=== PATIENT | female | born 1955 | race Caucasian/White ===

== ENCOUNTER 2016-09-09 14:30 | Inpatient (IN) | payer BC, OTHER ==
[~2016-09-09] VITALS: Ht 165.1 cm; Wt 84.1 kg
[~2016-09-09 14:30] MED LIST: ALBU8.5H3 INH; AMLO-145 PO; ASPI81TA3 PO; ATOR40TA68 PO; BENZ100C70 PO; BUDE6.9H IH; BUDE6HFA INHALATION; CARI350T29 PO; CARSR60 PO; CNC30T PO; FURO80TA3 PO; INSU100V18 SC; LEVEM SC; LOSA50TA6 PO; METO50TA16 PO; METO5TAB58 PO; MONT10TA21 PO; OMEP40CA3 PO; OXYC-281 PO; TEMA15CA PO; TEMA15CA6 PO; WARF1TAB47 PO
[2016-09-09] MEDS ORDERED: ALBUTEROL 0.5% (NEB) 2.5 MG/0.5 ML AMP INH STA (15:33)
[2016-09-09] MEDS ORDERED: SOD CHLORIDE 0.9% 250 ML IV STA (15:33)
[2016-09-09] MEDS ORDERED: METHYLPREDNISOLONE 125 MG INJ IV STA (15:33)
[2016-09-09 16:03] LABS: ADD SCAN DIFF NO
[2016-09-09 16:08] LABS: BASOPHIL # 0.1 10^3/ul (0.0-0.1); BASOPHILS % 0.5 % (0.0-2.0); EOSINOPHILS # 0.2 10^3/ul (0.0-0.5); HEMATOCRIT 22.7 % (37.0-47.0); HEMOGLOBIN 7.1 g/dl (12.0-16.0); LYMPHOCYTES # 1.9 10^3/ul (0.8-2.9); LYMPHOCYTES % 11.9 % (15.0-51.0); MEAN CORPUSCULAR HEMOGLOBIN 33.5 pg (29.0-33.0); MEAN CORPUSCULAR HGB CONC 31.3 g/dl (32.0-37.0); MEAN CORPUSCULAR VOLUME 107.1 fl (82.0-101.0); MEAN PLATELET VOLUME 9.8 fl (7.4-10.4); MONOCYTE # 1.5 10^3/ul (0.3-0.9); MONOCYTES % 9.1 % (0.0-11.0); NEUTROPHIL # 11.9 10^3/ul (1.6-7.5); NEUTROPHILS % 73.3 % (39.0-77.0); NUCLEATED RED BLOOD CELLS # 0.3 10^3/ul (0.0-0.0); NUCLEATED RED BLOOD CELLS% 1.7 /100WBC (0.0-0.0); PLATELET COUNT 606 10^3/UL (140-415); RED BLOOD COUNT 2.12 10^6/ul (4.20-5.40); RED CELL DISTRIBUTION WIDTH 18.8 % (11.5-14.5); WHITE BLOOD COUNT 16.2 10^3/ul (4.8-10.8)
[2016-09-09 16:19] LABS: ALBUMIN 3.1 g/dl (3.3-4.9); CHLORIDE 99 mmol/L (97-110); INR 1.75; POTASSIUM 5.8 mmol/L (3.5-5.1); PROTIME 20.6 Sec (12.2-14.2); PT RATIO 1.6; SODIUM 137 mmol/L (135-144)
[2016-09-09 16:21] LABS: ADD UMIC YES; URINE BILIRUBIN (Dip) 1+ (NEGATIVE); URINE BLOOD (Dip) 3+ (NEGATIVE); URINE COLOR LT. YELLOW (YELLOW); URINE GLUCOSE (Dip) NEGATIVE (NEGATIVE); URINE KETONES (Dip) NEGATIVE (NEGATIVE); URINE LEUKOCYTE ESTERASE (Dip) 2+ (NEGATIVE); URINE NITRITE (Dip) NEGATIVE (NEGATIVE); URINE TOTAL PROTEIN (Dip) 2+ (NEGATIVE); URINE UROBILINOGEN (Dip) 0.2 E.U./dL (0.1-1.0)
[2016-09-09 16:21] LABS: CREATININE 6.34 mg/dl (0.44-1.00)
[2016-09-09 16:22] LABS: ALANINE AMINOTRANSFERASE 41 IU/L (13-69); ALKALINE PHOSPHATASE 102 IU/L (42-121); ASPARTATE AMINO TRANSFERASE 16 IU/L (15-46); BLOOD UREA NITROGEN 48 mg/dl (7-20); CALCIUM 8.9 mg/dl (8.4-10.2); CARBON DIOXIDE 21 mmol/L (21-31); GLUCOSE 249 mg/dl (70-220); TOTAL PROTEIN 6.2 g/dl (6.1-8.1)
[2016-09-09 16:23] LABS: ANION GAP 23 (8-16)
[2016-09-09] MEDS ORDERED: OXYC-209 PO (16:30)
--- NOTE | 2016-09-09 16:32 | RADRPT ---
PROCEDURE: CHEST 1VW CLINICAL INDICATION: Shortness of breath TECHNIQUE: Single frontal view of the chest was obtained COMPARISON: 12/19/2015 FINDINGS: Interval removal of dialysis catheter. The cardiac size is moderately enlarged, stable. Aortic vascular calcifications are demonstrated. There is stable mild pulmonary vascular congestion. Small left pleural effusion, decreased in size when compared the prior study, with associated atelec tasis. Bibasilar atelectasis is also seen. Mild degenerative changes of the visualized osseous structures are visualized. IMPRESSION: 1. Stable cardiomegaly with stable mild pulmonary vascular congestion. Interval decrease but persis tent small left pleural effusion with associated atelectasis. 2. Atherosclerosis. 3. Removal of dialysis catheter. RPTAT:PP .Isacc Bazzi MD, Date Time Electronically viewed and signed by .Isacc Bazzi MD, on 09/09/2016 16:31 .V/
[2016-09-09] MEDS ORDERED: CARI350T29 PO (16:33)
[2016-09-09] MEDS ORDERED: ZOLP5TAB7 PO (16:33)
[2016-09-09 16:34] LABS: BACTERIA,URINE MODERATE; ICTOTEST NEGATIVE (NEGATIVE); SQUAMOUS EPITHELIAL CELL,UR MODERATE; URINE RBCS 25-50 /HPF ([, 0])
[2016-09-09] MEDS ORDERED: PYRI50TA14 PO (16:34)
[2016-09-09 16:35] LABS: TROPONIN-I < 0.012 ng/ml (0.00-0.12)
[2016-09-09] MEDS ORDERED: CALC667T2 PO (16:36)
[2016-09-09] MEDS ORDERED: APIX5TAB PO (16:38)
[2016-09-09] MEDS ORDERED: SULF1TAB30 PO (16:40)
[2016-09-09] MEDS ORDERED: MONT10TA24 PO (16:50)
[2016-09-09] MEDS ORDERED: INSU100I27 SQ (16:52)
[2016-09-09] MEDS ORDERED: TIOT18CA INHALATION (16:52)
[2016-09-09] MEDS ORDERED: CEFEPIME 1GM/50 ML (PMX) 50 ML IVPB ONE (17:00)
--- NOTE | 2016-09-09 17:19 | ERA ---
ER Documentation Chief Complaint Date/Time DATE: 09/09/16 TIME: 17:17 Chief Complaint WEAKNESS, DIZZINESS, LIGHTHEADEDNESS X1WEEK DIALYSIS MISSED TODAY HPI 61-year-old woman here for evaluation of dizziness and generalized weakness for the last few days. She states she has a history of COPD as well and feels short of breath. She has a history of end-stage kidney disease and was due for hemodialysis today but could not go because she felt too dizzy, she was also anemic a couple of weeks ago and required PRBC transfusion. She has a history of hemorrhoids but denies obvious blood per rectum or melena, she denies chest pain, no fevers or chills, no vomiting or diarrhea. ROS All systems reviewed and are negative except as per history of present illness. Medications Home Meds Reported Medications Tiotropium [place]* (Spiriva*) 18 Mcg Cap.w.dev, 1 CAP INHALATION DAILY, #30 CAP 09/09/16 Insulin Detemir (Levemir Flextouch) 100 Unit/1 Ml Insuln.pen, 90 UNIT SQ 09/09/16 Montelukast Sodium* (Montelukast Sodium*) 10 Mg Tablet, 10 MG PO QAM, #30 TAB 09/09/16 Sulfamethoxazole/Trimethoprim (Bactrim 400-80 mg Tablet) 1 Each Tablet, 2 EACH PO, TAB 09/09/16 Apixaban* (Eliquis*) 5 Mg Tablet, 5 MG PO BID, TAB 09/09/16 Calcium Acetate* (Phoslo*) 667 Mg Tablet, 667 MG PO WITH MEALS, TAB TAKE 4 TAB 09/09/16 Pyridoxine Hcl* (Pyridoxine Hcl*) 50 Mg Tablet, 50 MG PO DAILY, TAB 09/09/16 Zolpidem Tartrate* (Zolpidem Tartrate*) 5 Mg Tablet, 5 MG PO QHS Y for INSOMNIA , #30 TAB 09/09/16 Oxycodone HCl/Acetaminophen (Percocet 10-325 mg Tablet) 1 Each Tablet, 1 EACH PO Q6 Y for PRN, TAB 09/09/16 Budesonide-Formoterol Fumarate* (Symbicort*) 160-4.5 Hfa.aer.ad, 2 PUFF INHALATION BID, #1 EACH 12/19/15 Furosemide* (Furosemide*) 80 Mg Tablet, 80 MG PO DAILY, #30 TAB 12/19/15 Benzonatate* (Tessalon Perle*) 100 Mg Capsule, 100 MG PO Q6, CAP 12/19/15 Atorvastatin* (Atorvastatin*) 40 Mg Tablet, 40 MG PO QHS, #30 TAB 12/19/15 Amlodipine Besylate* (Amlodipine Besylate*) 5 Mg Tablet, 5 MG PO DAILY, #30 TAB 12/19/15 Losartan Potassium* (Losartan Potassium*) 50 Mg Tablet, 50 MG PO BID, TAB 12/19/15 Cinacalcet* (Sensipar*) 30 Mg Tab, 30 MG PO, TAB 12/19/15 Diltiazem Hcl* (Cardizem SR*) 60 Mg Capsr, 60 MG PO Q12, #60 CAP 12/19/15 Metoprolol Succinate* (Toprol XL*) 50 Mg Tab.er.24h, 50 MG PO DAILY, #30 TAB 12/19/15 Metoclopramide* (Reglan*) 5 Mg Tablet, 5 MG PO AC MEALS, TAB 12/19/15 Aspirin* (Aspirin* Chew) 81 Mg Tab.chew, 81 MG PO DAILY, TAB.CHEW 12/19/15 Albuterol Sulfate* (Proair HFA*) 8.5 Gm Hfa.aer.ad, 2 PUFF INH Q4H Y for WHEEZING AND SOB, INH 06/12/14 Atorvastatin* (Atorvastatin*) 40 Mg Tablet, 40 MG PO HS, TAB 06/12/14 Omeprazole* (Prilosec*) 40 Mg Capsule.dr, 40 MG PO DAILY 08/31/12 Discontinued Reported Medications Carisoprodol* (Carisoprodol*) 350 Mg Tablet, 350 MG PO Q8 Y for MUSCLE SPASMS, TAB 09/09/16 Insulin Detemir* (Levemir*) 100 U/Ml Vial, 86 UNIT SC HS, VIAL 12/19/15 Warfarin Sodium* (Coumadin*) 1 Mg Tablet, 1 MG PO DAILY, TAB 12/19/15 Temazepam* (Restoril*) 15 Mg Capsule, 15 MG PO HS MAY REPEAT X 1 Y for INSOMNIA , CAP 12/19/15 Montelukast Sodium* (Singulair*) 10 Mg Tablet, 10 MG PO QHS, #30 TAB 12/19/15 Carisoprodol* (Carisoprodol*) 350 Mg Tablet, 350 MG PO Q8 Y for MUSCLE SPASMS, TAB 12/19/15 Montelukast Sodium* (Singulair*) 10 Mg Tablet, 10 MG PO HS, TAB 06/12/14 Oxycodone Hcl-Acetaminophen* (Percocet*) 1 Tab Tablet, PO PRN 08/31/12 Budesonide-Formoterol Fumarate* (Symbicort*) 6.9 Gm Hfa.aer.ad, 6.9 GM IH DAILY , INH 2 PUFFS 04/09/11 Insulin Lispro (Humalog) 100 U/Ml Vial, SC 04/08/11 Temazepam* (Temazepam*) 15 Mg Capsule, PO PRN 04/08/11 Allergies Allergies: Coded Allergies: Penicillins (Verified Allergy, Severe, ALL OVER BODY RASH, 09/09/16) Sulfa (Sulfonamide Antibiotics) (Unverified Allergy, Severe, RASH, 09/09/16 ) ciprofloxacin (Verified Allergy, Severe, TENDONITIS, 09/09/16) PMhx/Soc Obesity, chronic obstructive pulmonary disease, hypertension, diabetes mellitus , end-stage kidney disease hemodialyzed on Tuesday, , Saturdays, previous [place], atrial fibrillation History of Surgery: Yes (RIJ PERMACATH, C SECTION,BTL) Anesthesia Reaction: No Hx Neurological Disorder: No Hx Respiratory Disorders: Yes (COPD) Hx Cardiac Disorders: Yes (HTN) Hx Psychiatric Problems: Yes Hx Miscellaneous Medical Probl: No Hx Alcohol Use: No Hx Substance Use: No Hx Tobacco Use: No Smoking Status: Current every day smoker FmHx Family History: diabetes Physical Exam Vitals Vital Signs Date Time Temp Pulse Resp B/P Pulse Ox O2 Delivery O2 Flow Rate FiO2 09/09/16 18:30 97.6 97 20 77/64 95 Nasal Cannula 3.0 09/09/16 17:21 97.6 99 20 90/57 98 Nasal Cannula 2.0 09/09/16 16:14 100 20 96 Nasal Cannula 2.0 09/09/16 15:25 Nasal Cannula 2.0 09/09/16 14:42 97.6 103 18 89/54 91 Physical Exam GENERAL: Well-developed, elderly, dehydrated woman, dyspneic HEENT: Dry mucous membranes, pale conjunctiva no cervical spine tenderness or step-off deformities, no goiter, no jaundice or icterus, extraocular movements intact without pain. No submandibular induration, and no pharyngeal erythema NEURO: Alert and oriented 3, cranial nerves II through XII intact bilaterally, pupils equal round reactive to light, no focal deficits or facial asymmetry, sensation intact distally Strength 5/5 in upper and lower extremities bilaterally CARDIAC: Regular rate and rhythm, no murmurs rubs or gallops LUNGS: Diffuse wheezing, no crackles or stridor ABDOMEN: Soft nontender, no guarding, no rigidity, no rebound, no psoas sign no obturator sign. Normoactive bowel sounds SKIN: Warm and dry to touch, no abrasions, contusions, or hematomas, no lacerations, no ecchymosis, no target lesions, and without ulcers EXTREMITIES: No clubbing cyanosis or edema, calves are bilaterally symmetrical, no Homans sign, no popliteal cord sign. Distal pulses equal and bilateral PSYCH: Normal affect without agitation or irritability Result Diagram: 09/09/16 1555 09/09/16 1555 Results 24 hrs Laboratory Tests Test 09/09/16 15:55 09/09/16 16:00 White Blood Count 16.210^3/ul Red Blood Count 2.1210^6/ul Hemoglobin 7.1g/dl Hematocrit 22.7% Mean Corpuscular Volume 107.1fl Mean Corpuscular Hemoglobin 33.5pg Mean Corpuscular Hemoglobin Concent 31.3g/dl Red Cell Distribution Width 18.8% Platelet Count 16636^3/UL Mean Platelet Volume 9.8fl Neutrophils % 73.3% Lymphocytes % 11.9% Monocytes % 9.1% Eosinophils % 1.0% Basophils % 0.5% Nucleated Red Blood Cells % 1.7/100WBC Neutrophils # 11.910^3/ul Lymphocytes # 1.910^3/ul Monocytes # 1.510^3/ul Eosinophils # 0.210^3/ul Basophils # 0.110^3/ul Nucleated Red Blood Cells # 0.310^3/ul Prothrombin Time 20.6Sec Prothrombin Time Ratio 1.6 INR International Normalized Ratio 1.75 Sodium Level 137mmol/L Potassium Level 5.8mmol/L Chloride Level 99mmol/L Carbon Dioxide Level 21mmol/L Anion Gap 23 Blood Urea Nitrogen 48mg/dl Creatinine 6.34mg/dl Glucose Level 249mg/dl Calcium Level 8.9mg/dl Total Bilirubin 0.0mg/dl Direct Bilirubin 0.00mg/dl Indirect Bilirubin 0.0mg/dl Aspartate Amino Transf (AST/SGOT) 16IU/L Alanine Aminotransferase (ALT/SGPT) 41IU/L Alkaline Phosphatase 102IU/L Troponin I < 0.012ng/ml Total Protein 6.2g/dl Albumin 3.1g/dl Globulin 3.10g/dl Albumin/Globulin Ratio 1.00 Lipase 36U/L Urine Color LT. YELLOW Urine Clarity CLOUDY Urine pH 5.5 Urine Specific [place] 1.025 Urine Ketones NEGATIVE Urine Nitrite NEGATIVE Urine Bilirubin 1+ Urine Ictotest NEGATIVE Urine Urobilinogen 0.2 E.U./dL Urine Leukocyte Esterase 2+ Urine Microscopic RBC 25-50/HPF Urine Microscopic WBC >200/HPF Urine Squamous Epithelial Cells MODERATE Urine Bacteria MODERATE Urine Hemoglobin 3+ Urine Glucose NEGATIVE% Urine Total Protein 2+ Current Medications Medications (Trade) Dose Ordered Sig/Danielle Route PRN Reason Start Time Stop Time Status Last Admin Dose Admin Sodium Chloride (NS) 250 ml @ 250 mls/hr Q1H STAT IV 09/09/16 15:33 09/09/16 16:32 DC 09/09/16 16:19 Albuterol (Proventil 0.5% (Neb)) 10 mg ONCE STAT INH 09/09/16 15:33 09/09/16 15:35 DC 09/09/16 16:13 Methylprednisolone Sodium Succinate 125 mg 125 mg ONCE STAT IV 09/09/16 15:33 09/09/16 15:35 DC 09/09/16 16:19 Cefepime HCl 50 ml @ 100 mls/hr ONCE ONCE IVPB 09/09/16 17:00 09/09/16 17:29 DC 09/09/16 16:59 Calcium Gluconate/ Sodium Chloride (Ca Gluc/NS) 110 ml @ 110 mls/hr ONCE ONCE IVPB 09/09/16 17:30 09/09/16 18:29 DC 09/09/16 17:49 IV Flush (NS 3 ml) 3 ml PER PROTOCOL IV 09/09/16 19:30 Ondansetron HCl (Zofran Inj) 4 mg Q6H PRN IV NAUSEA AND/OR VOMITING 09/09/16 19:30 Acetaminophen (Tylenol Tab) 650 mg Q6H PRN PO PAIN LEVEL 1-3 OR FEVER 09/09/16 19:30 Acetaminophen/ Hydrocodone Bitart ([place] (5/325)) 1 tab Q6H PRN PO MODERATE PAIN LEVEL 4-6 09/09/16 19:30 Morphine Sulfate (morphine) 2 mg Q4H PRN IV SEVERE PAIN LEVEL 7-10 09/09/16 19:30 Docusate Sodium (Colace) 100 mg Q12H PRN PO CONSTIPATION 09/09/16 19:30 Zolpidem Tartrate (Ambien) 5 mg QHS PRN PO SLEEP 09/09/16 19:30 Vancomycin HCl VANCOMYCIN PER PHARMACY PER PROTOCOL XX 09/09/16 19:30 Ceftriaxone Sodium (Rocephin) 50 ml @ 100 mls/hr Q24H IVPB 09/09/16 21:30 Albuterol (Ventolin Hfa) 2 puff Q4H PRN INH WHEEZING AND SOB 09/09/16 19:30 Amlodipine Besylate (Norvasc) 5 mg DAILY PO 09/10/16 09:00 Apixaban (Eliquis) 5 mg BID PO 09/09/16 21:00 UNV Aspirin (Aspirin) 81 mg DAILY PO 09/10/16 09:00 Atorvastatin Calcium (Lipitor) 40 mg HS PO 09/09/16 21:00 09/09/16 21:00 DC Atorvastatin Calcium (Lipitor) 40 mg QHS PO 09/09/16 21:00 Benzonatate (Tessalon) 100 mg Q6 PO 09/10/16 00:00 Calcium Acetate (Phoslo) 667 mg WITH MEALS PO 09/10/16 08:00 Cinacalcet (Sensipar) 30 mg DAILY PO 09/10/16 09:00 Diltiazem HCl (Cardizem Sr) 60 mg Q12 PO 09/09/16 21:00 Furosemide (Lasix) 80 mg DAILY PO 09/10/16 09:00 Insulin Detemir (Levemir) 90 unit QHS SC 09/09/16 21:00 UNV Losartan Potassium (Cozaar) 50 mg BID PO 09/09/16 21:00 Metoclopramide HCl (Reglan) 5 mg AC MEALS PO 09/10/16 07:00 Metoprolol Succinate (Toprol Xl) 50 mg DAILY PO 09/10/16 09:00 Montelukast Sodium (Singulair) 10 mg QAM PO 09/10/16 09:00 Pyridoxine HCl (Vitamin B6) 50 mg DAILY PO 09/10/16 09:00 Tiotropium [place] (Spiriva) 1 inh DAILY INH 09/10/16 09:00 Salmeterol Xinafoate/ Fluticasone (Advair 250/50 Diskus) 1 inh BID INH 09/09/16 21:00 Pantoprazole (Protonix Tab) 40 mg DAILY@06 PO 09/10/16 06:00 Insulin Aspart (Novolog Insulin Pen) NOVOLOG *MILD* ALGORITHM WITH MEALS BEDTIME SC 09/09/16 21:00 Miscellaneous Information (* Miscellaneous Pharmacy Order) HYPOGLYCEMIA PROTOCOL w... ONCE ONCE XX 09/09/16 19:30 09/09/16 20:13 DC Miscellaneous Information (* Miscellaneous Pharmacy Order) Discontinue Glyburide, Glipizide,... ONCE ONCE XX 09/09/16 19:30 09/09/16 20:13 DC Miscellaneous Information (* Miscellaneous Pharmacy Order) Discontinue all previ... ONCE ONCE XX 09/09/16 19:30 09/09/16 20:14 DC Miscellaneous Information 1 ea NOTE XX 09/09/16 20:30 Glucose (Glutose) 15 gm Q15M PRN PO DECREASED GLUCOSE 09/09/16 20:30 Glucose (Glutose) 22.5 gm Q15M PRN PO DECREASED GLUCOSE 09/09/16 20:31 Dextrose (D50w Syringe) 25 ml Q15M PRN IV DECREASED GLUCOSE 09/09/16 20:30 Dextrose (D50w Syringe) 50 ml Q15M PRN IV DECREASED GLUCOSE 09/09/16 20:30 Glucagon (Glucagen) 1 mg Q15M PRN IM DECREASED GLUCOSE 09/09/16 20:30 Glucose (Glutose) 15 gm Q15M PRN BUCCAL DECREASED GLUCOSE 09/09/16 20:30 Procedures/MDM IV line was established patient was placed on monitoring specialist rhythm strip revealed a sinus tachycardia at 100 bpm with upright P and T waves. Patient was afebrile. EKG performed, read by me revealed a atrial fibrillation rate controlled at 96 bpm, normal axis, with a right ventricular conduction delay and a QRS duration of 106 ms, no concerning ST elevations or depressions noted One view chest x-ray performed, read by me there are atelectatic changes bilaterally, no acute infiltrates, no pneumothorax, no end of the diaphragm. For initial hypotension I administered 250 cc of normal saline intravenously, and she received albuterol 10 mg via nebulizer methylprednisolone 125 mg IV for COPD. CBC revealed a leukocytosis of 16 and severe anemia with a hemoglobin of 7.1, which is lower than her baseline. Electrolytes reveal hyperkalemia 5.8 and renal failure with a BUN/creatinine of 48/6.3, liver function tests were normal , troponin was negative. Urinalysis was positive for infection. I treated her here with cefepime 1 g IV for UTI. I also ordered PRBC IV transfusion 2 units over 4 hours for severe symptomatic anemia. Patient also received calcium gluconate 1 g IV for hyperkalemia. Critical Care: Time: 38 minutes, this was time separate from other procedures. Treatments/Evaluations: Close monitoring and treatment of unstable vital signs, cardiorespiratory, and neurologic status, while maintaining tight balance of fluid, respiratory, and cardiac interventions. Patient admitted to telemetry setting for continued medical management, bronchodilator therapy, and IV antibiotics. Departure Diagnosis: Primary Impression: Acute hyperkalemia Additional Impressions: End stage kidney disease Dehydration Severe anemia UTI (urinary tract infection) Qualified Code: N30.00 - Acute cystitis without hematuria COPD (chronic obstructive pulmonary disease) Qualified Code: J44.1 - Chronic obstructive pulmonary disease with acute exacerbation Condition: CHIP Masters MD Sep 09, 2016 17:19
[2016-09-09] MEDS ORDERED: CALCIUM GLUCONATE 10% 1 GM in SOD CHLORIDE 0.9% 100 ML IVPB ONE (17:30)
[2016-09-09] MEDS ORDERED: Discontinue Glyburide, Glipizide, and/or Glimepiride prior to starting Insulin XX ONE (19:30)
[2016-09-09] MEDS ORDERED: ONDANSETRON 4 MG INJ IV PRN (19:30)
[2016-09-09] MEDS ORDERED: DOCUSATE SODIUM 100 MG CAP PO PRN (19:30)
[2016-09-09] MEDS ORDERED: ACETAMINOPHEN 325 MG TAB PO PRN (19:30)
[2016-09-09] MEDS ORDERED: ALBUTEROL HFA 8 GM INHALER INH PRN (19:30)
[2016-09-09] MEDS ORDERED: NACL 0.9% 3 ML SYG IV SCH (19:30)
[2016-09-09] MEDS ORDERED: HYPOGLYCEMIA PROTOCOL when Glucose is <70 mg/dL or symptomatic <90 mg/dL. XX ONE (19:30)
[2016-09-09] MEDS ORDERED: VANCOMYCIN IV PER PHARMACY XX SCH (19:30)
--- NOTE | 2016-09-09 20:16 | HP ---
DATE OF ADMISSION: 09/09/2016 CHIEF COMPLAINT: Pain in the left leg, weakness, dizziness. HISTORY OF PRESENT ILLNESS: The patient is a 61-year-old female with a history of end-stage renal d isease on dialysis. She has a history of dyslipidemia, diabetes, COPD, as well as a wound in the le ft leg. It has been there for approximately 1 month. The patient gets dialyzed Tuesdays, , Saturdays. She does have a history of previous MT and AFib. The patient presents with a chief co mplaint of left leg pain. She states that the pain is in the back of her calf. She also states moris t she has a chronic ulcer in her left thigh. She also reports feeling somewhat weak and dizzy. She has no other complaints at this time. PAST MEDICAL HISTORY: As per HPI. PAST SURGICAL HISTORY: Perm-A-Cath placement, . HOME MEDICATIONS: See medication reconciliation. ALLERGIES 1. PENICILLIN. 2. SULFA. 3. CIPRO. FAMILY HISTORY: Diabetes. SOCIAL HISTORY: Denies any alcohol, tobacco, or drug abuse. REVIEW OF SYSTEMS: A 12-point review of systems negative except for that as mentioned in the HPI. PHYSICAL EXAMINATION: VITAL SIGNS: Temperature is 97.6, pulse 99, respiration is 20, blood pressure is 90/57, saturation 98% on 2 liters. GENERAL: No acute distress, oriented. HEENT: Normocephalic, atraumatic. LUNGS: Clear to auscultation. CARDIOVASCULAR: Regular rate and rhythm. ABDOMEN: Nondistended, nontender, soft. EXTREMITIES: Edema noted in the left posterior leg. Chronic wound noted in the left thigh. Ulcera tion noted in the left leg as well. LABORATORIES: White count 86.2, hemoglobin 7.1, platelets are 606. Chemistry: Sodium is 137, pota ssium is 5.8, creatinine is 6.3, hemoglobin , BUN is 48. INR is 1.75. Urine shows greater moris n 200 WBCs, leukocyte esterase 2+, total protein is 2+. DIAGNOSTICS: Chest x-ray shows stable cardiomegaly with mild pulmonary vascular congestion. ASSESSMENT AND PLAN: 1. Sepsis secondary to urinary tract infection and/or cellulitis. The patient does have erythema a round the ulcer in her left leg and she also has a urinary tract infection. Will treat her with van comycin and cover the cellulitis and Rocephin for urinary tract infection. 2. Left thigh wound. This is a chronic wound for the past month. The patient has been trying to g et an appointment with vascular surgeon but has been unable to do so. Will consult during this hospitalization. 3. History of atrial fibrillation. Continue home Coumadin. 4. End-stage renal disease. We will consult nephrology for dialysis. 5. Anemia, likely of chronic disease and end-stage renal disease. The patient has no reports of an y bleeding at this time. 6. Hypertension. Continue home medications. 7. Diabetes. Continue home insulin regimen. 8. Dyslipidemia. Continue statin. 9. Prophylaxis. The patient on Eliquis. Dictated By: MICHAEL COULTER MD BS/BLANCA Conf#: [id number] DID#: [id number]
[2016-09-09] MEDS ORDERED: GLUCOSE GEL 15 GRAM TUBE BUCCAL PRN (20:30)
[2016-09-09] MEDS ORDERED: DEXTROSE 50% 50 ML SYRINGE IV PRN ×2 (20:30)
[2016-09-09] MEDS ORDERED: GLUCAGON 1 MG INJ IM PRN (20:30)
[2016-09-09] MEDS ORDERED: GLUCOSE GEL 15 GRAM TUBE PO PRN ×2 (20:30→20:31)
[2016-09-09] MEDS: LOSARTAN 50 MG TAB PO SCH (21:00)
[2016-09-09] MEDS: DILTIAZEM (SR) 60 MG CAP PO SCH (21:00)
[2016-09-09] MEDS ORDERED: ATORVASTATIN 40 MG TAB PO SCH (21:00)
[2016-09-09] MEDS: APIXABAN 5 MG TABLET PO SCH (21:18)
[2016-09-09] MEDS: ATORVASTATIN 40 MG TAB PO SCH (21:18)
[2016-09-09] MEDS: SALMETEROL/FLUTICASONE 250/50 INHA INH SCH (21:19)
[2016-09-09] MEDS: INSULIN ASPART [NOVOLOG] 3 ML PEN SC SCH (21:29)
[2016-09-09] MEDS: INSULIN DETEMIR [LEVEMIR] 3ML CART SC SCH (21:30)
[2016-09-09] MEDS ORDERED: VANCOMYCIN 1.75 GM in SOD CHLORIDE 0.9% 500 ML IVPB ONE (22:00)
--- NOTE | 2016-09-09 22:15 | RADRPT ---
PROCEDURE: US Lower extremity Arteries. CLINICAL INDICATION: Diabetic lower extremity ulcer TECHNIQUE: Multiple longitudinal and transverse images of the bilateral lower extremity arteries w ere obtained with munguia scale and color Doppler imaging. COMPARISON: No prior studies are available for comparison. FINDINGS: Peak systolic velocities are as follows: Location RightLeft waveforms [id number] cm/sec85 cm/sec triphasic/triphasic PSFA79 cm/sec88 cm/sec triphasic/triphasic MSFA75 cm/sec60 cm/sec triphasic/triphasic DSFA52 cm/sec64 cm/sec triphasic/triphasic POP55 cm/sec69 cm/sec triphasic/ biphasic PTA51 cm/sec39 cm/sec monophasic/monophasic DPA52 cm/sec57 cm/sec monophasic/monophasic Calcified shadowing atheromatous disease is extensive, ankle brachial indices are therefore unable t o be acquired RPTAT:HJJR IMPRESSION: 1. Diffuse calcified atheromatous plaque formation of the bilateral lower extremities without eviden ce for hemodynamically significant stenosis or occlusion. 2. Monophasic waveforms of the posterior tibial and dorsalis pedis arteries bilaterally. Physician Ivette Date Time Electronically viewed and signed by Physician Ivette on 09/09/2016 22:14 JR/
[2016-09-09] MEDS: CEFTRIAXONE 1 GM/50 ML (PMX) 50 ML IVPB SCH (22:38)
[2016-09-09] MEDS: BENZONATATE 100 MG CAP PO SCH (23:23)
[2016-09-09] MEDS: ZOLPIDEM 5 MG TAB PO PRN (23:36)
[2016-09-10] VITALS (10 sets, daily range): BP systolic 108–120; BP diastolic 58–71; PULSE 98–107; RESP 18–22; TEMP 97.6
[2016-09-10 06:35] LABS: ADD SCAN DIFF NO
[2016-09-10 06:39] LABS: ABNORMAL IP MESSAGE 1; BASOPHIL # 0.1 10^3/ul (0.0-0.1); BASOPHILS % 0.4 % (0.0-2.0); HEMATOCRIT 30.1 % (37.0-47.0); HEMOGLOBIN 9.3 g/dl (12.0-16.0); LYMPHOCYTES # 1.5 10^3/ul (0.8-2.9); LYMPHOCYTES % 10.9 % (15.0-51.0); MEAN CORPUSCULAR HEMOGLOBIN 31.3 pg (29.0-33.0); MEAN CORPUSCULAR HGB CONC 30.9 g/dl (32.0-37.0); MEAN CORPUSCULAR VOLUME 101.3 fl (82.0-101.0); MEAN PLATELET VOLUME 9.8 fl (7.4-10.4); MONOCYTE # 0.6 10^3/ul (0.3-0.9); MONOCYTES % 4.1 % (0.0-11.0); NEUTROPHIL # 11.2 10^3/ul (1.6-7.5); NEUTROPHILS % 79.4 % (39.0-77.0); NUCLEATED RED BLOOD CELLS # 0.3 10^3/ul (0.0-0.0); NUCLEATED RED BLOOD CELLS% 2.4 /100WBC (0.0-0.0); PLATELET COUNT 571 10^3/UL (140-415); RED BLOOD COUNT 2.97 10^6/ul (4.20-5.40); WHITE BLOOD COUNT 14.1 10^3/ul (4.8-10.8)
[2016-09-10 06:51] LABS: POTASSIUM 5.9 mmol/L (3.5-5.1)
[2016-09-10 06:54] LABS: CREATININE 6.64 mg/dl (0.44-1.00)
[2016-09-10 06:55] LABS: CALCIUM 8.9 mg/dl (8.4-10.2); MAGNESIUM 2.8 mg/dl (1.7-2.5); PHOSPHORUS 6.9 mg/dl (2.5-4.9)
--- NOTE | 2016-09-10 08:05 | CONS ---
DATE OF ADMISSION: 09/09/2016 DATE OF CONSULTATION: 09/10/[address] Spence: Thank you very much for allowing me to evaluate this 61-year-old female admitted via the ER with ane erica and an ulcer involving her left thigh and redness and swelling involving her left tibial area. HISTORICAL EVENTS: As you well know, this patient has chronic renal failure she states related to d iabetes as well as hyperlipidemia, chronic obstructive pulmonary disease, antecedent history of an M I and atrial fibrillation, presenting with left leg pain. She has a slight nonproductive cough, no wheezing. Has had no recent nausea, vomiting, or abdominal pain. PAST MEDICAL HISTORY: Includes a . ALLERGIES: INCLUDE: 1. PENICILLIN. 2. SULFA. 3. CIPRO. MEDICATIONS: Prior to admission include: 1. Amlodipine 5 mg per day. 2. Eliquis 5 mg b.i.d. 3. Aspirin 81 mg per day. 4. Atorvastatin 40 mg per day. 5. Symbicort 160/4.5 b.i.d. 6. PhosLo t.i.d. with meals. 7. Sensipar 30 mg per day. 8. Diltiazem 60 mg per day. 9. Lasix 80 mg per day. 10. Levemir insulin 90 units per day. 11. Losartan 50 per day. 12. Reglan 5 mg a.c. t.i.d. 13. Metoprolol 50 mg per day. 14. Singulair 10 per day. 15. Omeprazole 40 mg per day. 16. Pyridoxine 50 mg per day. 17. Spiriva. PHYSICAL EXAMINATION: VITAL SIGNS: BP 102/81, pulse was 100, temperature 97.6, respirations were 18, O2 sat 97%. EYES: Extraocular muscles were full. NOSE, MOUTH, AND THROAT: Normal. NECK: No JVD. LUNGS: Lungs reduced breath sounds without rales, wheezes, or rhonchi. HEART: Rhythm regular, 1/6 systolic murmur. ABDOMEN: Distended. Liver and spleen not palpable. No tenderness. EXTREMITIES: Trace edema. There was redness and swelling involving the left tibial area. There wa s a 4x4 covering the right thigh. NEUROLOGIC: Revealed no lateralizing motor weakness. LABORATORY AND DIAGNOSTIC STUDIES: Urinalysis 25 to 50 reds, 2+ esterase, 3+ hemoglobin, 2+ protein , and moderate bacteria. Chemistries this morning, sodium 140, potassium 5.9, chloride 100, CO2 21, BUN 56, creatinine 6.64. Liver tests were normal. INR was 1.75, hematocrit was 22.7 on admission, white count 16,200. After transfusion of 2 units of packed cells, hematocrit increased to 30.1, wh ite count dropped to 14,100. IMAGING STUDIES: Included a lower extremity arterial study that revealed no hemodynamically signifi cant occlusion and a chest x-ray revealed mild pulmonary congestion. IMPRESSION: 1. Chronic renal failure on dialysis, with now need for the same with elevated potassium noted. 2. Cellulitis involving the left lower extremity, has already received vancomycin. 3. Severe anemia on admission, stool for OB will need to be obtained and follow up hematocrits. Wi ll continue to follow her with you. Dictated By: ELLEN NEVILLE/BLANCA Conf#: [id number] DID#: [id number]
[2016-09-10] MEDS: PANTOPRAZOLE (EC) 40 MG TAB PO SCH (08:16)
[2016-09-10] MEDS: BENZONATATE 100 MG CAP PO SCH ×3 (08:17→18:38)
[2016-09-10] MEDS: METOCLOPRAMIDE 5 MG TAB PO SCH ×3 (08:19→18:39)
[2016-09-10] MEDS: CALCIUM ACETATE 667 MG CAP PO SCH ×3 (08:21→18:38)
[2016-09-10] MEDS: INSULIN ASPART [NOVOLOG] 3 ML PEN SC SCH ×4 (08:31→21:50)
[2016-09-10] MEDS: SALMETEROL/FLUTICASONE 250/50 INHA INH SCH ×2 (09:19→21:58)
[2016-09-10] MEDS: ASPIRIN 81 MG TAB PO SCH (09:20)
[2016-09-10] MEDS: DILTIAZEM (SR) 60 MG CAP PO SCH ×2 (09:20→21:00)
[2016-09-10] MEDS: APIXABAN 5 MG TABLET PO SCH ×2 (09:21→21:31)
[2016-09-10] MEDS: FUROSEMIDE 40 MG TAB PO SCH (09:25)
[2016-09-10] MEDS: CINACALCET 30 MG TAB PO SCH (09:26)
[2016-09-10] MEDS: MONTELUKAST 10 MG TAB PO SCH (09:26)
[2016-09-10] MEDS: AMLODIPINE 5 MG TAB PO SCH (09:27)
[2016-09-10] MEDS: LOSARTAN 50 MG TAB PO SCH ×2 (09:27→21:00)
[2016-09-10] MEDS: PYRIDOXINE 50 MG TAB PO SCH (10:39)
[2016-09-10] MEDS: METOPROLOL (XL) 50 MG TAB PO SCH (10:39)
[2016-09-10] MEDS: TIOTROPIUM 18 MCG CAPSULE INHA DEV INH SCH (10:45)
--- NOTE | 2016-09-10 15:26 | PN ---
Date/Time of Note Date/Time of Note DATE: 09/10/16 TIME: 15:23 Assessment/Plan VTE Prophylaxis VTE Prophylaxis Intervention: other Assessment/Plan Chief Complaint/Hosp Course 1. Sepsis secondary to urinary tract infection and/or cellulitis -cont Vanco and Rocephin 2. Left thigh chronic wound -Vascular consult -Arterial study is neg for sig occlusion 3. History of atrial fibrillation - Continue home Coumadin 4. End-stage renal disease -HD per Renal 5. Anemia of chronic disease and end-stage renal disease - The patient has no reports of any bleeding at this time. 6. Hypertension -Continue home medications 7. Diabetes - Continue home insulin regimen 8. Dyslipidemia -Continue statin. 9. Prophylaxis-The patient on Eliquis Problems: Subjective 24 Hr Interval Summary Constitutional: no complaints Exam/Review of Systems Vital Signs Vitals Vital Signs Date Time Temp Pulse Resp B/P Pulse Ox O2 Delivery O2 Flow Rate FiO2 09/10/16 14:15 107 20 09/10/16 09:54 90/76 97 Nasal Cannula 3.0 09/10/16 09:03 97.6 Exam Constitutional: alert Respiratory: clear to auscultation Cardiovascular: regular rate and rhythm Gastrointestinal: soft, No distended Musculoskeletal: No nl extremities to inspection Results Result Diagram: 09/10/16 0608 09/10/16 0608 Results 24 hrs Laboratory Tests Test 09/09/16 15:55 09/09/16 16:00 09/09/16 21:11 09/10/16 06:08 White Blood Count 16.2 #H 14.1 H Red Blood Count 2.12 #L 2.97 #L Hemoglobin 7.1 #L 9.3 #L Hematocrit 22.7 #L 30.1 #L Mean Corpuscular Volume 107.1 H 101.3 H Mean Corpuscular Hemoglobin 33.5 H 31.3 Mean Corpuscular Hemoglobin Concent 31.3 L 30.9 L Red Cell Distribution Width 18.8 H 21.0 H Platelet Count 606 H 571 H Mean Platelet Volume 9.8 # 9.8 Neutrophils % 73.3 79.4 H Lymphocytes % 11.9 L 10.9 L Monocytes % 9.1 4.1 Eosinophils % 1.0 0.0 Basophils % 0.5 0.4 Nucleated Red Blood Cells % 1.7 H 2.4 H Neutrophils # 11.9 H 11.2 H Lymphocytes # 1.9 1.5 Monocytes # 1.5 H 0.6 Eosinophils # 0.2 0.0 Basophils # 0.1 0.1 Nucleated Red Blood Cells # 0.3 H 0.3 H Prothrombin Time 20.6 H Prothrombin Time Ratio 1.6 INR International Normalized Ratio 1.75 Sodium Level 137 140 Potassium Level 5.8 H 5.9 H Chloride Level 99 100 Carbon Dioxide Level 21 21 Anion Gap 23 H 25 H Blood Urea Nitrogen 48 H 56 H Creatinine 6.34 H 6.64 H Glucose Level 249 H 269 H Calcium Level 8.9 8.9 Total Bilirubin 0.0 L Direct Bilirubin 0.00 Indirect Bilirubin 0.0 Aspartate Amino Transf (AST/SGOT) 16 Alanine Aminotransferase (ALT/SGPT) 41 Alkaline Phosphatase 102 Troponin I < 0.012 Total Protein 6.2 Albumin 3.1 L Globulin 3.10 Albumin/Globulin Ratio 1.00 Lipase 36 Urine Color LT. YELLOW Urine Clarity CLOUDY Urine pH 5.5 Urine Specific [place] 1.025 Urine Ketones NEGATIVE Urine Nitrite NEGATIVE Urine Bilirubin 1+ H Urine Ictotest NEGATIVE Urine Urobilinogen 0.2 E.U./dL Urine Leukocyte Esterase 2+ H Urine Microscopic RBC 25-50 Urine Microscopic WBC >200 Urine Squamous Epithelial Cells MODERATE Urine Bacteria MODERATE Urine Hemoglobin 3+ H Urine Glucose NEGATIVE Urine Total Protein 2+ H Bedside Glucose 283 H Hemoglobin A1c 6.8 H Phosphorus Level 6.9 H Magnesium Level 2.8 H Test 09/10/16 08:27 Bedside Glucose 245 H Medications Medications Current Medications Ondansetron HCl (Zofran Inj) 4 mg Q6H PRN IV NAUSEA AND/OR VOMITING; Start at 19:30 Acetaminophen (Tylenol Tab) 650 mg Q6H PRN PO PAIN LEVEL 1-3 OR FEVER; Start at 19:30 Acetaminophen/ Hydrocodone Bitart ([place] (5/325)) 1 tab Q6H PRN PO MODERATE PAIN LEVEL 4-6; Start 09/09/16 at 19:30 Morphine Sulfate (morphine) 2 mg Q4H PRN IV SEVERE PAIN LEVEL 7-10; Start 09/09 at 19:30 Docusate Sodium (Colace) 100 mg Q12H PRN PO CONSTIPATION; Start 09/09/16 at 19: 30 Zolpidem Tartrate 5 mg 5 mg QHS PRN PO SLEEP Last administered on 09/09/16 23: 36; Admin Dose 5 MG; Start 09/09/16 at 19:30 Ceftriaxone Sodium (Rocephin) 50 ml @ 100 mls/hr Q24H IVPB Last administered on 09/09/16 22:38; Admin Dose 100 MLS/HR; Start 09/09/16 at 21:30 Albuterol (Ventolin Hfa) 2 puff Q4H PRN INH WHEEZING AND SOB; Start 09/09/16 at 19:30 Amlodipine Besylate (Norvasc) 5 mg DAILY PO Last administered on 09/10/16 09: 27; Admin Dose 5 MG; Start 09/10/16 at 09:00 Apixaban (Eliquis) 5 mg BID PO Last administered on 09/10/16 09:21; Admin Dose 5 MG; Start 09/09/16 at 21:00 Aspirin (Aspirin) 81 mg DAILY PO Last administered on 09/10/16 09:20; Admin Dose 81 MG; Start 09/10/16 at 09:00 Atorvastatin Calcium (Lipitor) 40 mg QHS PO Last administered on 09/09/16 21: 18; Admin Dose 40 MG; Start 09/09/16 at 21:00 Benzonatate (Tessalon) 100 mg Q6 PO Last administered on 09/10/16 08:17; Admin Dose 100 MG; Start 09/10/16 at 00:00 Cinacalcet (Sensipar) 30 mg DAILY PO Last administered on 09/10/16 09:26; Admin Dose 30 MG; Start 09/10/16 at 09:00 Diltiazem HCl (Cardizem Sr) 60 mg Q12 PO Last administered on 09/10/16 09:20; Admin Dose 60 MG; Start 09/09/16 at 21:00 Furosemide (Lasix) 80 mg DAILY PO Last administered on 09/10/16 09:25; Admin Dose 80 MG; Start 09/10/16 at 09:00 Insulin Detemir (Levemir) 90 unit QHS SC Last administered on 09/09/16 21:30; Admin Dose 90 UNIT; Start 09/09/16 at 21:00 Losartan Potassium (Cozaar) 50 mg BID PO Last administered on 09/10/16 09:27; Admin Dose 50 MG; Start 09/09/16 at 21:00 Metoprolol Succinate (Toprol Xl) 50 mg DAILY PO Last administered on 09/10/16 10:39; Admin Dose 50 MG; Start 09/10/16 at 09:00 Montelukast Sodium (Singulair) 10 mg QAM PO Last administered on 09/10/16 09: 26; Admin Dose 10 MG; Start 09/10/16 at 09:00 Pyridoxine HCl (Vitamin B6) 50 mg DAILY PO Last administered on 09/10/16 10:39 ; Admin Dose 50 MG; Start 09/10/16 at 09:00 Tiotropium [place] (Spiriva) 1 inh DAILY INH Last administered on 09/10/16 10: 45; Admin Dose 1 INH; Start 09/10/16 at 09:00 Salmeterol Xinafoate/ Fluticasone (Advair 250/50 Diskus) 1 inh BID INH Last administered on 09/10/16 09:19; Admin Dose 1 INH; Start 09/09/16 at 21:00 Pantoprazole (Protonix Tab) 40 mg DAILY@06 PO Last administered on 09/10/16 08 :16; Admin Dose 40 MG; Start 09/10/16 at 06:00 Miscellaneous Information 1 ea NOTE XX ; Start 09/09/16 at 20:30 Glucose (Glutose) 15 gm Q15M PRN PO DECREASED GLUCOSE; Start 09/09/16 at 20:30 Glucose (Glutose) 22.5 gm Q15M PRN PO DECREASED GLUCOSE; Start 09/09/16 at 20: 31 Dextrose (D50w Syringe) 25 ml Q15M PRN IV DECREASED GLUCOSE; Start 09/09/16 at 20:30 Dextrose (D50w Syringe) 50 ml Q15M PRN IV DECREASED GLUCOSE; Start 09/09/16 at 20:30 Glucagon (Glucagen) 1 mg Q15M PRN IM DECREASED GLUCOSE; Start 09/09/16 at 20:30 Glucose (Glutose) 15 gm Q15M PRN BUCCAL DECREASED GLUCOSE; Start 09/09/16 at 20 :30 Miscellaneous Information (*Rx Drug Level Order Reminder*) VANCOMYCIN RANDOM AT 0,500 ON... ONCE ONCE XX ; Start 09/11/16 at 05:00; Stop 09/11/16 at 05:01 MICHAEL COULTER Sep 10, 2016 15:26
[2016-09-10] MEDS ORDERED: DILTIAZEM 25 MG INJ IV ONE (16:30)
--- NOTE | 2016-09-10 17:53 | HP ---
DATE OF ADMISSION: 09/09/2016 TYPE OF CONSULTATION: VASCULAR SURGERY CONSULTATION Dear Doctors: Ms. Anthony is a 61-year-old female who is a smoker with pack and half a day who presents with a pleth ora of medical conditions and lower extremity wounds bilaterally. At the moment, the patient has sexton d a history of end-stage renal disease; per patient, has been on dialysis for about a year and half in the left upper extremity functioning fistula. Patient has been tolerating her fistula well and c urrently in her lower extremities she has pain and discomfort. She has wounds on bilateral upper th ighs on the lateral aspect and bilateral bahena area. Patient mentions that she is not as ambulatory as she would like to be and she currently denies rest pain; however, she does have some disabling c laudication. Further, patient has had a history of bilateral lower extremity swelling that she has had for over 10 years. She has on and off venous stasis ulcers that heal and recur. The most rece nt one was on her right bahena area that has healed; however, she has had a recurrence of the left thi gh and left lower leg that she has had over the past month. REVIEW OF SYSTEMS: A 12-point review performed and negative except what is mentioned in the HPI. PAST MEDICAL HISTORY: Entails end-stage renal disease, morbidly obese, smoker, hyperlipidemia, eug[place] nary artery disease, COPD, dyslipidemia, history of ID, atrial fibrillation and end-stage renal dise ase on hemodialysis. PAST SURGICAL HISTORY: Left upper extremity fistula creation, previous PermCath catheter placement , . ALLERGIES: 1. PENICILLIN. 2. SULFA. 3. CIPRO. FAMILY HISTORY: Diabetes and hypertension. SOCIAL HISTORY: Positive for smoking. Denies alcohol or illicit drug use. PHYSICAL EXAMINATION: GENERAL: Alert and oriented x3, no apparent distress. HEENT: Normocephalic, atraumatic. Poor dentition. Mucosa moist. NECK: Supple. No carotid bruit. PULMONARY: Clear to auscultation bilaterally. No crackles. CARDIOVASCULAR: S1, S2 present. No murmurs. ABDOMEN: Soft, nontender, nondistended. Bowel sounds positive. Truncal obesity, large pannus. EXTREMITIES: Right lower extremity palpable femoral pulse, nonpalpable pedal pulse. Motor, sensory intact. Cap refill 3 to 4 seconds, edema 1 to 2+. Presence of upper lateral thigh ulcer that is s uperficial and almost healed. On the lower leg, there is presence of lipodermatosclerosis, spider v eins, telangiectasias and also multiple areas of healed ulcers. Left lower extremity palpable femoral pulse, nonpalpable pedal pulse. Motor, sensory intact. Capil deanne refill 3 to 4 seconds. Edema 2+. Presence of a lateral thigh ulcer that measures 5 x 3 x 1 wi th an eschar and surrounding erythema. On the lower leg, she has lipodermatosclerosis with multiple ulcers on the medial aspect of the lower leg, lateral aspect and on the bahena that have seemed to be superficial with eschar on it as well. Tender to touch. ASSESSMENT AND PLAN: Bilateral lower extremity atherosclerosis with ulcers: It seems the patient m ay have a component of mixed disease with arterial insufficiency and venous insufficiency. Upon her noninvasive vascular studies the patient has what seems to be infrapopliteal disease with monophasi c flow in her tibials. There is concern that the patient may have diabetic tibioperoneal disease. We will plan to obtain a CT angiography of the lower extremities to better ascertain if the patient has significant stenosis that can be identified. The patient may require an actual angiography, but currently the patient does not want to have any invasive studies done; therefore, we will plan to o btain a CT angiography 1st. Bilateral lower extremity venous insufficiency with ulcers (CEAP classification 6). The patient als o has a mixed component of venous disease in light of her bilateral lower extremity atherosclerosis. We will plan to obtain eventual reflux studies as an outpatient, but at the moment, we will plan to apply Santyl medication to her ulcers and plan to apply 2 layer compression dressings with Kerlix and Antoni wrap and would recommend consulting our wound care management team. Obtain bilateral lower extremity vein mapping. Optimize vascular status (BP meds, diet, nutrition, exercise, sugar control, antiplatelets). Discussed smoking cessation with the patient, would recommend for her to have decrease the amount of cigarettes that she smokes per day, currently a pack and a half. End-stage renal disease: Through the patient has a functioning fistula; however, she has not underg one any recent surveillance of her fistula. We will plan to obtain a fistula ultrasound to better a scertain if there is any flow volume differences or any stenosis. Discussed findings, plan and management with the patient and she understands. Thank you for allowing us to partake in the care of your patient. Please call with any questions. Dictated By: MAYLIN BHAT/BLANCA Conf#: [id number] DID#: [id number]
[2016-09-10] MEDS: HYDROCODONE/APAP (5/325) TAB PO PRN (18:39)
[2016-09-10] MEDS: COLLAGENASE 30 GM TUBE TOP SCH (21:00)
[2016-09-10] MEDS: ATORVASTATIN 40 MG TAB PO SCH (21:31)
[2016-09-10] MEDS: CEFTRIAXONE 1 GM/50 ML (PMX) 50 ML IVPB SCH (21:32)
[2016-09-10] MEDS: INSULIN DETEMIR [LEVEMIR] 3ML CART SC SCH (21:59)
[2016-09-10] MEDS ORDERED: INSULIN ASPART [NOVOLOG] 3 ML PEN SC ONE (22:00)
[2016-09-11] MEDS: BENZONATATE 100 MG CAP PO SCH ×5 (00:28→23:45)
[2016-09-11] MEDS: ZOLPIDEM 5 MG TAB PO PRN ×2 (00:33→23:45)
[2016-09-11] MEDS: HYDROCODONE/APAP (5/325) TAB PO PRN ×2 (00:58→21:32)
[2016-09-11] MEDS: PANTOPRAZOLE (EC) 40 MG TAB PO SCH (05:34)
[2016-09-11 06:03] LABS: ADD SCAN DIFF NO
[2016-09-11 06:14] LABS: BASOPHIL # 0.1 10^3/ul (0.0-0.1); BASOPHILS % 0.4 % (0.0-2.0); EOSINOPHILS # 0.2 10^3/ul (0.0-0.5); EOSINOPHILS % 1.5 % (0.0-7.0); HEMATOCRIT 27.5 % (37.0-47.0); HEMOGLOBIN 8.6 g/dl (12.0-16.0); LYMPHOCYTES # 1.9 10^3/ul (0.8-2.9); LYMPHOCYTES % 15.3 % (15.0-51.0); MEAN CORPUSCULAR HEMOGLOBIN 31.6 pg (29.0-33.0); MEAN CORPUSCULAR HGB CONC 31.3 g/dl (32.0-37.0); MEAN CORPUSCULAR VOLUME 101.1 fl (82.0-101.0); MEAN PLATELET VOLUME 9.8 fl (7.4-10.4); MONOCYTE # 1.5 10^3/ul (0.3-0.9); MONOCYTES % 11.8 % (0.0-11.0); NEUTROPHIL # 8.3 10^3/ul (1.6-7.5); NEUTROPHILS % 66.9 % (39.0-77.0); NUCLEATED RED BLOOD CELLS # 0.2 10^3/ul (0.0-0.0); NUCLEATED RED BLOOD CELLS% 1.8 /100WBC (0.0-0.0); PLATELET COUNT 534 10^3/UL (140-415); RED BLOOD COUNT 2.72 10^6/ul (4.20-5.40); RED CELL DISTRIBUTION WIDTH 20.9 % (11.5-14.5); WHITE BLOOD COUNT 12.3 10^3/ul (4.8-10.8)
[2016-09-11 06:52] LABS: CALCIUM 8.8 mg/dl (8.4-10.2); PHOSPHORUS 4.7 mg/dl (2.5-4.9); POTASSIUM 4.4 mmol/L (3.5-5.1)
[2016-09-11 07:01] LABS: CREATININE 4.87 mg/dl (0.44-1.00)
[2016-09-11 07:39] VITALS: BP 95/60; RESP 20
[2016-09-11] MEDS: ASPIRIN 81 MG TAB PO SCH ×2 (07:44→11:51)
[2016-09-11] MEDS: METOCLOPRAMIDE 5 MG TAB PO SCH ×3 (07:44→17:03)
[2016-09-11] MEDS: CALCIUM ACETATE 667 MG CAP PO SCH ×3 (07:44→17:03)
[2016-09-11] MEDS: DILTIAZEM (SR) 60 MG CAP PO SCH ×2 (07:46→21:21)
[2016-09-11] MEDS: LOSARTAN 50 MG TAB PO SCH ×2 (07:46→21:20)
[2016-09-11] MEDS: AMLODIPINE 5 MG TAB PO SCH (07:47)
[2016-09-11] MEDS: FUROSEMIDE 40 MG TAB PO SCH (07:47)
[2016-09-11] MEDS: APIXABAN 5 MG TABLET PO SCH ×3 (07:47→21:19)
[2016-09-11] MEDS: METOPROLOL (XL) 50 MG TAB PO SCH (07:48)
[2016-09-11] MEDS: CINACALCET 30 MG TAB PO SCH ×2 (07:48→11:52)
[2016-09-11] MEDS: MONTELUKAST 10 MG TAB PO SCH ×2 (07:48→11:52)
[2016-09-11] MEDS: PYRIDOXINE 50 MG TAB PO SCH ×2 (07:49→11:52)
[2016-09-11] MEDS: INSULIN ASPART [NOVOLOG] 3 ML PEN SC SCH ×4 (08:12→21:36)
[2016-09-11] MEDS: morphine 2 MG INJ IV PRN (08:25)
[2016-09-11] MEDS: TIOTROPIUM 18 MCG CAPSULE INHA DEV INH SCH (08:25)
[2016-09-11] MEDS: SALMETEROL/FLUTICASONE 250/50 INHA INH SCH ×2 (08:25→21:20)
[2016-09-11] MEDS: COLLAGENASE 30 GM TUBE TOP SCH ×3 (08:38→12:04)
--- NOTE | 2016-09-11 08:45 | PN ---
Date/Time of Note Date/Time of Note DATE: 09/11/16 TIME: 08:38 Assessment/Plan Lines/Catheters IV [facility]ter [facility] (from [facility] Peripheral IV Assessment/Plan Chief Complaint/Hosp Course -Bilateral lower extremity atherosclerosis with ulcers: It seems the patient may have a component of mixed disease with arterial insufficiency and venous insufficiency. Upon her noninvasive vascular studies the patient has what seems to be infrapopliteal disease with monophasic flow in her tibials. There is concern that the patient may have diabetic tibioperoneal disease. We will plan to obtain a CT angiography of the lower extremities to better ascertain if the patient has significant stenosis that can be identified. The patient may require an actual angiography, but currently the patient does not want to have any invasive studies done; therefore, we will plan to obtain a CT angiography first -Bilateral lower extremity venous insufficiency with ulcers (CEAP classification 6): The patient also has a mixed component of venous disease in light of her bilateral lower extremity atherosclerosis. We will plan to obtain eventual reflux studies as an outpatient, but at the moment, we will plan to apply Santyl medication to her ulcers and plan to apply a 2-layer compression dressings with Kerlix and Antoni wrap and would recommend consulting our wound care management team. -Obtain bilateral lower extremity vein mapping. -Optimize vascular status (BP meds, diet, nutrition, exercise, sugar control, antiplatelets). -Discussed smoking cessation with the patient, would recommend for her to have decrease the amount of cigarettes that she smokes per day, currently a pack and a half. -End-stage renal disease: Although the patient has a functioning fistula; she has not undergone any recent surveillance of her fistula. We will plan to obtain a fistula ultrasound to better ascertain if there is any flow volume differences or any stenosis. -Discussed findings, plan and management with the patient and she understands. -Thank you for allowing us to partake in the care of your patient. Please call with any questions. Problems: Subjective 24 Hr Interval Summary no new vascular events overnight Exam/Review of Systems Vital Signs Vitals Vital Signs Date Time Temp Pulse Resp B/P Pulse Ox O2 Delivery O2 Flow Rate FiO2 09/11/16 07:39 98.1 103 20 95/60 93 09/10/16 17:35 Nasal Cannula 3.0 Intake and Output 09/10/16 09/10/16 09/11/16 15:00 23:00 07:00 Intake Total 500 ml 290 ml 360 ml Output Total 3500 ml Balance -3000 ml 290 ml 360 ml Exam Free Text/Dictation GENERAL: Alert and oriented x3, PULMONARY: Clear to auscultation bilaterally. CARDIOVASCULAR: S1, S2 present. ABDOMEN: Soft, nontender, nondistended. Bowel sounds positive. Truncal obesity, large pannus. EXTREMITIES: -Right lower extremity palpable femoral pulse, nonpalpable pedal pulse. Motor, sensory intact. Cap refill 3 to 4 seconds, edema 1 to 2+. Upper lateral thigh ulcer that is superficial and almost healed. Lower leg with lipodermatosclerosis, spider veins, telangiectasias and also multiple areas of healed ulcers. -Left lower extremity palpable femoral pulse, nonpalpable pedal pulse. Motor, sensory intact. Capillary refill 3 to 4 seconds. Edema 2+. Presence of a lateral thigh ulcer measuring 5 x 3 x 1cm with an eschar and surrounding erythema. Lower leg with lipodermatosclerosis with multiple ulcers: medial, lateral and bahena ulcers that seem to be superficial with eschar on it as well. Tender to touch. Results Result Diagram: 09/11/16 0510 09/11/16 0510 MAYLIN BROWN MD Sep 11, 2016 08:44
[2016-09-11] MEDS ORDERED: SOD CHLORIDE 0.9% 100 ML ONE (09:06)
[2016-09-11] MEDS ORDERED: IOHEXOL 100 ML ONE (09:06)
--- NOTE | 2016-09-11 13:23 | CONS ---
Date/Time of Note Date/Time of Note DATE: 09/11/16 TIME: 13:20 Assessment/Plan Assessment/Plan Additional Assessment/Plan * Sepsis secondary to urinary tract infection and/or cellulitis: on abx * Left thigh chronic wound with chronic le ulceration: vascular following * History of atrial fibrillation: reate controlled, on coumadin * End-stage renal disease: s/p hd yesterday. plan hd in am to place her on regular schedule * Anemia of chronic disease and end-stage renal disease: resume epogen and check iron sats and ferritin * Hypertension: bp low. adjust meds * Diabetes: on insulin with iss Consultation Date/Type/Reason Admit Date/Time Sep 09, 2016 at 17:15 Initial Consult Date 24 HR Interval Summary Free Text/Dictation feels better. s/p hd yesterday. no complaints today. states usual hd t/t/s Exam/Review of Systems Vital Signs Vitals Vital Signs Date Time Temp Pulse Resp B/P Pulse Ox O2 Delivery O2 Flow Rate FiO2 09/11/16 08:00 Nasal Cannula 3.0 09/11/16 07:39 98.1 103 20 95/60 93 Intake and Output 09/10/16 09/10/16 09/11/16 15:00 23:00 07:00 Intake Total 500 ml 290 ml 360 ml Output Total 3500 ml Balance -3000 ml 290 ml 360 ml Exam Constitutional: alert, oriented Psych: no complaints Head: normocephalic Neck: non-tender, supple Respiratory: clear to auscultation Cardiovascular: S3, S4, bruits, diastolic murmur, edema, gallop, irregular rhythm, jugular venous distention (JVD), murmurs/extra sounds, nl pulses, other , regular rate and rhythm, rub, systolic murmur Gastrointestinal: ascites, soft Results Result Diagram: 09/11/16 0510 09/11/16 0510 Results 24 hrs Laboratory Tests Test 09/10/16 15:57 09/10/16 21:21 09/11/16 02:04 09/11/16 05:10 Bedside Glucose 284 H 417 *H 262 H White Blood Count 12.3 H Red Blood Count 2.72 L Hemoglobin 8.6 L Hematocrit 27.5 L Mean Corpuscular Volume 101.1 H Mean Corpuscular Hemoglobin 31.6 Mean Corpuscular Hemoglobin Concent 31.3 L Red Cell Distribution Width 20.9 H Platelet Count 534 H Mean Platelet Volume 9.8 Neutrophils % 66.9 Lymphocytes % 15.3 Monocytes % 11.8 H Eosinophils % 1.5 Basophils % 0.4 Nucleated Red Blood Cells % 1.8 H Neutrophils # 8.3 H Lymphocytes # 1.9 Monocytes # 1.5 H Eosinophils # 0.2 Basophils # 0.1 Nucleated Red Blood Cells # 0.2 H Sodium Level 135 Potassium Level 4.4 Chloride Level 100 Carbon Dioxide Level 25 Anion Gap 14 # Blood Urea Nitrogen 49 H Creatinine 4.87 #H Glucose Level 213 Calcium Level 8.8 Phosphorus Level 4.7 # Random Vancomycin Level 19.1 Test 09/11/16 07:53 09/11/16 11:54 Bedside Glucose 208 202 Medications Medications Current Medications Ondansetron HCl (Zofran Inj) 4 mg Q6H PRN IV NAUSEA AND/OR VOMITING; Start at 19:30 Acetaminophen (Tylenol Tab) 650 mg Q6H PRN PO PAIN LEVEL 1-3 OR FEVER; Start at 19:30 Acetaminophen/ Hydrocodone Bitart ([place] (5/325)) 1 tab Q6H PRN PO MODERATE PAIN LEVEL 4-6 Last administered on 09/11/16 00:58; Admin Dose 1 TAB; Start at 19:30 Morphine Sulfate (morphine) 2 mg Q4H PRN IV SEVERE PAIN LEVEL 7-10 Last administered on 09/11/16 08:25; Admin Dose 2 MG; Start 09/09/16 at 19:30 Docusate Sodium (Colace) 100 mg Q12H PRN PO CONSTIPATION; Start 09/09/16 at 19: 30 Zolpidem Tartrate 5 mg 5 mg QHS PRN PO SLEEP Last administered on 09/11/16 00: 33; Admin Dose 5 MG; Start 09/09/16 at 19:30 Ceftriaxone Sodium (Rocephin) 50 ml @ 100 mls/hr Q24H IVPB Last administered on 09/10/16 21:32; Admin Dose 100 MLS/HR; Start 09/09/16 at 21:30 Albuterol (Ventolin Hfa) 2 puff Q4H PRN INH WHEEZING AND SOB; Start 09/09/16 at 19:30 Amlodipine Besylate (Norvasc) 5 mg DAILY PO Last administered on 09/10/16 09: 27; Admin Dose 5 MG; Start 09/10/16 at 09:00 Apixaban (Eliquis) 5 mg BID PO Last administered on 09/11/16 11:52; Admin Dose 5 MG; Start 09/09/16 at 21:00 Aspirin (Aspirin) 81 mg DAILY PO Last administered on 09/11/16 11:51; Admin Dose 81 MG; Start 09/10/16 at 09:00 Atorvastatin Calcium (Lipitor) 40 mg QHS PO Last administered on 09/10/16 21: 31; Admin Dose 40 MG; Start 09/09/16 at 21:00 Benzonatate (Tessalon) 100 mg Q6 PO Last administered on 09/11/16 11:52; Admin Dose 100 MG; Start 09/10/16 at 00:00 Cinacalcet (Sensipar) 30 mg DAILY PO Last administered on 09/11/16 11:52; Admin Dose 30 MG; Start 09/10/16 at 09:00 Diltiazem HCl (Cardizem Sr) 60 mg Q12 PO Last administered on 09/10/16 09:20; Admin Dose 60 MG; Start 09/09/16 at 21:00 Furosemide (Lasix) 80 mg DAILY PO Last administered on 09/10/16 09:25; Admin Dose 80 MG; Start 09/10/16 at 09:00 Insulin Detemir (Levemir) 90 unit QHS SC Last administered on 09/10/16 21:59; Admin Dose 90 UNIT; Start 09/09/16 at 21:00 Losartan Potassium (Cozaar) 50 mg BID PO Last administered on 09/10/16 09:27; Admin Dose 50 MG; Start 09/09/16 at 21:00 Metoprolol Succinate (Toprol Xl) 50 mg DAILY PO Last administered on 09/10/16 10:39; Admin Dose 50 MG; Start 09/10/16 at 09:00 Montelukast Sodium (Singulair) 10 mg QAM PO Last administered on 09/11/16 11: 52; Admin Dose 10 MG; Start 09/10/16 at 09:00 Pyridoxine HCl (Vitamin B6) 50 mg DAILY PO Last administered on 09/11/16 11:52 ; Admin Dose 50 MG; Start 09/10/16 at 09:00 Tiotropium [place] (Spiriva) 1 inh DAILY INH Last administered on 09/10/16 10: 45; Admin Dose 1 INH; Start 09/10/16 at 09:00 Salmeterol Xinafoate/ Fluticasone (Advair 250/50 Diskus) 1 inh BID INH Last administered on 09/10/16 21:58; Admin Dose 1 INH; Start 09/09/16 at 21:00 Pantoprazole (Protonix Tab) 40 mg DAILY@06 PO Last administered on 09/10/16 08 :16; Admin Dose 40 MG; Start 09/10/16 at 06:00 Miscellaneous Information 1 ea NOTE XX ; Start 09/09/16 at 20:30 Glucose (Glutose) 15 gm Q15M PRN PO DECREASED GLUCOSE; Start 09/09/16 at 20:30 Glucose (Glutose) 22.5 gm Q15M PRN PO DECREASED GLUCOSE; Start 09/09/16 at 20: 31 Dextrose (D50w Syringe) 25 ml Q15M PRN IV DECREASED GLUCOSE; Start 09/09/16 at 20:30 Dextrose (D50w Syringe) 50 ml Q15M PRN IV DECREASED GLUCOSE; Start 09/09/16 at 20:30 Glucagon (Glucagen) 1 mg Q15M PRN IM DECREASED GLUCOSE; Start 09/09/16 at 20:30 Glucose (Glutose) 15 gm Q15M PRN BUCCAL DECREASED GLUCOSE; Start 09/09/16 at 20 :30 Collagenase 1 applic 1 applic DAILY TOP Last administered on 09/11/16 12:04; Admin Dose 1 APPLIC; Start 09/10/16 at 21:00 Vancomycin HCl (Vancocin) 250 ml @ 125 mls/hr 10 IVPB ; Start 09/12/16 at 10:00 ; Stop 09/12/16 at 23:00 PRIMO LEWIS MD Sep 11, 2016 13:23
[2016-09-11] MEDS ORDERED: EPOETIN 10000 UNITS/1 ML INJ (ESRD) SC SCH (13:30)
--- NOTE | 2016-09-11 17:05 | PN ---
Date/Time of Note Date/Time of Note DATE: 09/11/16 TIME: 17:02 Assessment/Plan VTE Prophylaxis VTE Prophylaxis Intervention: other Lines/Catheters IV Catheter Type (from Nrs): Peripheral IV Assessment/Plan Chief Complaint/Hosp Course 1. Sepsis secondary to urinary tract infection and/or cellulitis -cont Vanco and Rocephin 2. Left thigh chronic wound -Vascular consult appreciated -Arterial study is neg for sig occlusion, plan is for CTA of the lower extremities 3. History of atrial fibrillation - Continue home Coumadin 4. End-stage renal disease -HD per Renal 5. Anemia of chronic disease and end-stage renal disease - The patient has no reports of any bleeding at this time. 6. Hypertension -Continue home medications 7. Diabetes - Continue home insulin regimen 8. Dyslipidemia -Continue statin. 9. Prophylaxis-The patient on Eliquis Problems: Subjective 24 Hr Interval Summary Constitutional: no complaints Exam/Review of Systems Vital Signs Vitals Vital Signs Date Time Temp Pulse Resp B/P Pulse Ox O2 Delivery O2 Flow Rate FiO2 09/11/16 08:00 Nasal Cannula 3.0 09/11/16 07:39 98.1 103 20 95/60 93 Intake and Output 09/10/16 09/10/16 09/11/16 15:00 23:00 07:00 Intake Total 500 ml 290 ml 360 ml Output Total 3500 ml Balance -3000 ml 290 ml 360 ml Exam Constitutional: alert Respiratory: clear to auscultation Cardiovascular: regular rate and rhythm Gastrointestinal: soft, No distended Musculoskeletal: No nl extremities to inspection Results Result Diagram: 09/11/16 0510 09/11/16 0510 Results 24 hrs Laboratory Tests Test 09/10/16 21:21 09/11/16 02:04 09/11/16 05:10 09/11/16 07:53 Bedside Glucose 417 *H 262 H 208 White Blood Count 12.3 H Red Blood Count 2.72 L Hemoglobin 8.6 L Hematocrit 27.5 L Mean Corpuscular Volume 101.1 H Mean Corpuscular Hemoglobin 31.6 Mean Corpuscular Hemoglobin Concent 31.3 L Red Cell Distribution Width 20.9 H Platelet Count 534 H Mean Platelet Volume 9.8 Neutrophils % 66.9 Lymphocytes % 15.3 Monocytes % 11.8 H Eosinophils % 1.5 Basophils % 0.4 Nucleated Red Blood Cells % 1.8 H Neutrophils # 8.3 H Lymphocytes # 1.9 Monocytes # 1.5 H Eosinophils # 0.2 Basophils # 0.1 Nucleated Red Blood Cells # 0.2 H Sodium Level 135 Potassium Level 4.4 Chloride Level 100 Carbon Dioxide Level 25 Anion Gap 14 # Blood Urea Nitrogen 49 H Creatinine 4.87 #H Glucose Level 213 Calcium Level 8.8 Phosphorus Level 4.7 # Random Vancomycin Level 19.1 Test 09/11/16 11:54 Bedside Glucose 202 Medications Medications Current Medications Ondansetron HCl (Zofran Inj) 4 mg Q6H PRN IV NAUSEA AND/OR VOMITING; Start at 19:30 Acetaminophen (Tylenol Tab) 650 mg Q6H PRN PO PAIN LEVEL 1-3 OR FEVER; Start at 19:30 Acetaminophen/ Hydrocodone Bitart ([place] (5/325)) 1 tab Q6H PRN PO MODERATE PAIN LEVEL 4-6 Last administered on 09/11/16 00:58; Admin Dose 1 TAB; Start at 19:30 Morphine Sulfate (morphine) 2 mg Q4H PRN IV SEVERE PAIN LEVEL 7-10 Last administered on 09/11/16 08:25; Admin Dose 2 MG; Start 09/09/16 at 19:30 Docusate Sodium (Colace) 100 mg Q12H PRN PO CONSTIPATION; Start 09/09/16 at 19: 30 Zolpidem Tartrate 5 mg 5 mg QHS PRN PO SLEEP Last administered on 09/11/16 00: 33; Admin Dose 5 MG; Start 09/09/16 at 19:30 Ceftriaxone Sodium (Rocephin) 50 ml @ 100 mls/hr Q24H IVPB Last administered on 09/10/16 21:32; Admin Dose 100 MLS/HR; Start 09/09/16 at 21:30 Albuterol (Ventolin Hfa) 2 puff Q4H PRN INH WHEEZING AND SOB; Start 09/09/16 at 19:30 Apixaban (Eliquis) 5 mg BID PO Last administered on 09/11/16 11:52; Admin Dose 5 MG; Start 09/09/16 at 21:00 Aspirin (Aspirin) 81 mg DAILY PO Last administered on 09/11/16 11:51; Admin Dose 81 MG; Start 09/10/16 at 09:00 Atorvastatin Calcium (Lipitor) 40 mg QHS PO Last administered on 09/10/16 21: 31; Admin Dose 40 MG; Start 09/09/16 at 21:00 Benzonatate (Tessalon) 100 mg Q6 PO Last administered on 09/11/16 11:52; Admin Dose 100 MG; Start 09/10/16 at 00:00 Cinacalcet (Sensipar) 30 mg DAILY PO Last administered on 09/11/16 11:52; Admin Dose 30 MG; Start 09/10/16 at 09:00 Diltiazem HCl (Cardizem Sr) 60 mg Q12 PO Last administered on 09/10/16 09:20; Admin Dose 60 MG; Start 09/09/16 at 21:00 Furosemide (Lasix) 80 mg DAILY PO Last administered on 09/10/16 09:25; Admin Dose 80 MG; Start 09/10/16 at 09:00 Insulin Detemir (Levemir) 90 unit QHS SC Last administered on 09/10/16 21:59; Admin Dose 90 UNIT; Start 09/09/16 at 21:00 Losartan Potassium (Cozaar) 50 mg BID PO Last administered on 09/10/16 09:27; Admin Dose 50 MG; Start 09/09/16 at 21:00 Metoprolol Succinate (Toprol Xl) 50 mg DAILY PO Last administered on 09/10/16 10:39; Admin Dose 50 MG; Start 09/10/16 at 09:00 Montelukast Sodium (Singulair) 10 mg QAM PO Last administered on 09/11/16 11: 52; Admin Dose 10 MG; Start 09/10/16 at 09:00 Pyridoxine HCl (Vitamin B6) 50 mg DAILY PO Last administered on 09/11/16 11:52 ; Admin Dose 50 MG; Start 09/10/16 at 09:00 Tiotropium [place] (Spiriva) 1 inh DAILY INH Last administered on 09/10/16 10: 45; Admin Dose 1 INH; Start 09/10/16 at 09:00 Salmeterol Xinafoate/ Fluticasone (Advair 250/50 Diskus) 1 inh BID INH Last administered on 09/10/16 21:58; Admin Dose 1 INH; Start 09/09/16 at 21:00 Pantoprazole (Protonix Tab) 40 mg DAILY@06 PO Last administered on 09/10/16 08 :16; Admin Dose 40 MG; Start 09/10/16 at 06:00 Miscellaneous Information 1 ea NOTE XX ; Start 09/09/16 at 20:30 Glucose (Glutose) 15 gm Q15M PRN PO DECREASED GLUCOSE; Start 09/09/16 at 20:30 Glucose (Glutose) 22.5 gm Q15M PRN PO DECREASED GLUCOSE; Start 09/09/16 at 20: 31 Dextrose (D50w Syringe) 25 ml Q15M PRN IV DECREASED GLUCOSE; Start 09/09/16 at 20:30 Dextrose (D50w Syringe) 50 ml Q15M PRN IV DECREASED GLUCOSE; Start 09/09/16 at 20:30 Glucagon (Glucagen) 1 mg Q15M PRN IM DECREASED GLUCOSE; Start 09/09/16 at 20:30 Glucose (Glutose) 15 gm Q15M PRN BUCCAL DECREASED GLUCOSE; Start 09/09/16 at 20 :30 Collagenase 1 applic 1 applic DAILY TOP Last administered on 09/11/16 12:04; Admin Dose 1 APPLIC; Start 09/10/16 at 21:00 Vancomycin HCl (Vancocin) 250 ml @ 125 mls/hr 10 IVPB ; Start 09/12/16 at 10:00 ; Stop 09/12/16 at 23:00 MICHAEL COULTER Sep 11, 2016 17:05
[2016-09-11 20:00] VITALS: BP 126/59; RESP 20
--- NOTE | 2016-09-11 20:58 | RADRPT ---
PROCEDURE: US left upper extremity arterial system. CLINICAL INDICATION: Left upper extremity pain and swelling. Dialysis fistula malfunction. TECHNIQUE: Multiple longitudinal and transverse images of the left upper extremity arterial tree w as obtained with munguia scale pulsed Doppler, and color Doppler imaging. COMPARISON: None available FINDINGS: There is a left brachial artery to the cephalic vein dialysis fistula which appears patent. There is approximately a 40% stenosis at the level of the arterial anastomoses. No other stenosis i s visualized. Velocity, flow volume, and diameter are as follows: Inflow: 198 cm/sec, 571 ml/minute, 0.4 cm. Proximal: 152 cm/sec, 773 ml/minute, 0.55 cm. Mid: 199 cm/sec, 407 ml/minute, 0.3 cm. IMPRESSION: 1. Dialysis fistula flow parameters as described above. RPTAT: QQ .Bandar Adamson MD, Date Time Electronically viewed and signed by .Bandar Adamson MD, on 09/11/2016 20:58 .R/
--- NOTE | 2016-09-11 21:04 | RADRPT ---
PROCEDURE: Bilateral lower extremity venous mapping. CLINICAL INDICATION: End-stage renal disease. Preoperative. TECHNIQUE: The greater saphenous vein was evaluated bilaterally with ultrasound in the axial and s agittal planes. Diameter of the veins were determined as indicated below. COMPARISON: No prior studies are available for comparison. FINDINGS: Right greater saphenous vein: At groin: 0.86 cm. Upper thigh: 0.59 cm. Mid thigh: 0.32 cm. Lower thigh: 0.30 cm. At knee: 0.28 cm. Upper calf: 0.20 cm. Mid calf: 0.22 cm. Ankle: 0.19 cm. Left greater saphenous vein: At groin: 0.66 cm. Upper thigh: 0.62 cm. Mid thigh: 0.46 cm. Lower thigh: 0.29 cm. At knee: 0.25 cm. Upper calf: 0.26 cm. Mid calf: 0.23 cm. Ankle: 0.14 cm. The greater saphenous veins demonstrate normal compressibility with no thrombus or occlusion. IMPRESSION: 1. Diameter of greater saphenous veins as indicated above. 2. No thrombosis visualized. RPTAT: QQ .Bandar Adamson MD, Date Time Electronically viewed and signed by .Bandar Adamson MD, on 09/11/2016 21:04 .R/
[2016-09-11] MEDS: ATORVASTATIN 40 MG TAB PO SCH (21:19)
[2016-09-11 21:21] VITALS: BP 121/59; PULSE 90
[2016-09-11] MEDS: INSULIN DETEMIR [LEVEMIR] 3ML CART SC SCH (21:37)
[2016-09-11] MEDS: CEFTRIAXONE 1 GM/50 ML (PMX) 50 ML IVPB SCH (21:38)
[2016-09-11] MEDS ORDERED: INSULIN ASPART [NOVOLOG] 3 ML PEN SC ONE (22:00)
[2016-09-12] VITALS (15 sets, daily range): BP systolic 98–135; BP diastolic 56–88; PULSE 105–140; RESP 16–20
[2016-09-12] MEDS: COLLAGENASE 30 GM TUBE TOP SCH ×2 (01:38→09:00)
[2016-09-12] MEDS: BENZONATATE 100 MG CAP PO SCH ×4 (05:59→23:11)
[2016-09-12] MEDS: PANTOPRAZOLE (EC) 40 MG TAB PO SCH (05:59)
[2016-09-12 06:13] LABS: ADD SCAN DIFF NO
[2016-09-12 06:16] LABS: BASOPHIL # 0.1 10^3/ul (0.0-0.1); BASOPHILS % 0.8 % (0.0-2.0); EOSINOPHILS # 0.4 10^3/ul (0.0-0.5); EOSINOPHILS % 3.7 % (0.0-7.0); HEMATOCRIT 29.3 % (37.0-47.0); LYMPHOCYTES # 2.2 10^3/ul (0.8-2.9); LYMPHOCYTES % 19.5 % (15.0-51.0); MEAN CORPUSCULAR HEMOGLOBIN 31.5 pg (29.0-33.0); MEAN CORPUSCULAR HGB CONC 30.7 g/dl (32.0-37.0); MEAN CORPUSCULAR VOLUME 102.4 fl (82.0-101.0); MEAN PLATELET VOLUME 9.6 fl (7.4-10.4); MONOCYTE # 1.3 10^3/ul (0.3-0.9); MONOCYTES % 11.8 % (0.0-11.0); NEUTROPHIL # 6.7 10^3/ul (1.6-7.5); NUCLEATED RED BLOOD CELLS # 0.1 10^3/ul (0.0-0.0); NUCLEATED RED BLOOD CELLS% 0.5 /100WBC (0.0-0.0); PLATELET COUNT 515 10^3/UL (140-415); RED BLOOD COUNT 2.86 10^6/ul (4.20-5.40); RED CELL DISTRIBUTION WIDTH 21.1 % (11.5-14.5); WHITE BLOOD COUNT 11.1 10^3/ul (4.8-10.8)
--- NOTE | 2016-09-12 06:19 | RADRPT ---
PROCEDURE: CTA abdomen, pelvis, and bilateral lower extremity runoff CLINICAL INDICATION: Lower extremity ulcers. Atherosclerotic change. TECHNIQUE: Thin section spiral CT images were obtained through the vasculature of the abdomen, pel vis, and both lower extremities during administration of 100 cc of Omnipaque 350 contrast material. Multiplanar reconstructions and 3-D maximum intensity projection reconstructed images were performe d. The images were reviewed on a PACS workstation. The total exam CTDI equals 10.29 mGy, and the to julia exam DLP equals 1409.02 mGy-cm. COMPARISON: Arterial Doppler study from 09/[address] of the abdomen pelvis from 09/05/2012 FINDINGS: CTA abdomen and pelvis: Right greater left small pleural effusions are seen with associated megan sive atelectasis. Cardiomegaly. Contrast reflux into the IVC and hepatic veins suggests poor right heart function. Anasarca. The scan is obtained in the arterial phase of enhancement and portal ve in enhancement cannot be assessed. Slight gallbladder wall thickening or pericholecystic fluid. No gross focal lesion of the liver or spleen. Bilateral adrenal hypertrophy with at least 1 probable small adenoma. 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 Mild prominence of the pancreatic duct measuring up to 4 mm in diameter. Small fat-containing umbilical hernia. Dens e ingested material in the colon. Trabeculated urinary bladder with right lateral bladder diverticu lum. Clip artifact in the pelvis. No gross mass of the uterus or adnexa. Diverticulosis without d efinite evidence of diverticulitis. Normal appendix. Mild atherosclerotic change at the origin of the celiac artery without stenosis. The superior mesen teric artery and renal arteries are patent. Probable stenosis at the origin of the patent inferior mesenteric artery. No evidence for aortic aneurysm or dissection. Mild atherosclerotic change thro ughout the abdominal aorta and the internal and external iliac arteries. Mild degenerative change of the spine. CTA extremities: Small caliber lower extremity vasculature with diffuse atherosclerotic change. Pr obable patent trifurcation vessels with patent two-vessel flow at the level of the ankles bilaterall y. No evidence for aneurysm or focal high-grade stenosis or occlusion. Diffuse edema of the subcut aneous soft tissues. Innumerable tiny punctate densities in the subcutaneous soft tissues of the ca lves may represent small soft tissue calcifications. No clearly visible soft tissue ulceration. No definite bony erosive change. IMPRESSION: Diffuse atherosclerotic change without evidence of aneurysm or stenosis. Probable patent posterior tibial and dorsalis pedis arteries crossing the ankle bilaterally. This is consistent with a recent Doppler findings. Multiple incidental findings of the abdomen and pelvis as detailed above. If osteomyelitis is suspected clinically, MRI with without contrast of the effected area could be co nsidered. RPTAT: HLBE Yara Metzger Physician Date Time Electronically viewed and signed by Yara Metzger, Physician on 09/12/2016 06:19 LE/
[2016-09-12 06:34] LABS: IRON 51 ug/dl (35-150)
[2016-09-12 06:43] LABS: ALBUMIN 3.3 g/dl (3.3-4.9); ALBUMIN/GLOBULIN RATIO 1.22; CALCIUM 8.8 mg/dl (8.4-10.2); CREATININE 5.61 mg/dl (0.44-1.00); PHOSPHORUS 4.9 mg/dl (2.5-4.9); POTASSIUM 4.6 mmol/L (3.5-5.1)
[2016-09-12 06:44] LABS: TOTAL IRON BINDING CAPACITY 228 ug/dl (241-421)
[2016-09-12] MEDS: INSULIN ASPART [NOVOLOG] 3 ML PEN SC SCH ×7 (08:04→21:35)
[2016-09-12] MEDS: CALCIUM ACETATE 667 MG CAP PO SCH ×3 (08:13→17:53)
[2016-09-12] MEDS: PYRIDOXINE 50 MG TAB PO SCH (08:14)
[2016-09-12] MEDS: METOCLOPRAMIDE 5 MG TAB PO SCH ×3 (08:15→17:53)
[2016-09-12] MEDS: CINACALCET 30 MG TAB PO SCH (08:15)
[2016-09-12] MEDS: MONTELUKAST 10 MG TAB PO SCH (08:15)
[2016-09-12] MEDS: APIXABAN 5 MG TABLET PO SCH ×2 (08:15→21:23)
[2016-09-12] MEDS: ASPIRIN 81 MG TAB PO SCH (08:15)
[2016-09-12] MEDS: SALMETEROL/FLUTICASONE 250/50 INHA INH SCH ×2 (08:18→21:24)
[2016-09-12] MEDS: DILTIAZEM (SR) 60 MG CAP PO SCH ×3 (09:00→21:24)
[2016-09-12] MEDS: METOPROLOL (XL) 50 MG TAB PO SCH ×2 (09:00→10:48)
[2016-09-12] MEDS: FUROSEMIDE 40 MG TAB PO SCH (09:00)
[2016-09-12] MEDS: LOSARTAN 50 MG TAB PO SCH ×2 (09:00→21:23)
[2016-09-12] MEDS: TIOTROPIUM 18 MCG CAPSULE INHA DEV INH SCH (09:52)
[2016-09-12] MEDS ORDERED: VANCOMYCIN 1 GM in NS 250 ML IVPB SCH (10:00)
--- NOTE | 2016-09-12 11:47 | CONS ---
Date/Time of Note Date/Time of Note DATE: 09/12/16 TIME: 11:45 Assessment/Plan Assessment/Plan Additional Assessment/Plan * Sepsis secondary to urinary tract infection and/or cellulitis: on abx * Left thigh chronic wound with chronic le ulceration: vascular following * History of atrial fibrillation: rate controlled, on coumadin * End-stage renal disease: s/p hd yesterday and scheduled for hd again today due to persistent volume overload. hd again teusday and q t/t/s * Anemia of chronic disease and end-stage renal disease: resume epogen and check iron sats and ferritin * Hypertension: better with adjusted meds * Diabetes: on insulin with iss Consultation Date/Type/Reason Admit Date/Time Sep 09, 2016 at 17:15 24 HR Interval Summary Free Text/Dictation feels better. no events. staill awaiting decion from vascular Exam/Review of Systems Vital Signs Vitals Vital Signs Date Time Temp Pulse Resp B/P Pulse Ox O2 Delivery O2 Flow Rate FiO2 09/12/16 11:30 140 09/12/16 09:00 18 09/12/16 07:40 98.0 118/72 96 09/11/16 20:00 Nasal Cannula 2.0 Intake and Output 09/11/16 09/11/16 09/12/16 15:00 23:00 07:00 Intake Total 720 ml 480 ml Output Total 0 ml Balance 720 ml 480 ml Exam Constitutional: alert, oriented, well developed Head: atraumatic, normocephalic Neck: non-tender, supple Respiratory: clear to auscultation, diminished breath sounds Cardiovascular: regular rate and rhythm Gastrointestinal: non-tender, soft Results Result Diagram: 09/12/16 0517 09/12/16 0517 Results 24 hrs Laboratory Tests Test 09/11/16 11:54 09/11/16 17:00 09/11/16 21:16 09/12/16 02:24 Bedside Glucose 202 248 H 301 H 213 Test 09/12/16 05:17 09/12/16 08:02 White Blood Count 11.1 H Red Blood Count 2.86 L Hemoglobin 9.0 L Hematocrit 29.3 L Mean Corpuscular Volume 102.4 H Mean Corpuscular Hemoglobin 31.5 Mean Corpuscular Hemoglobin Concent 30.7 L Red Cell Distribution Width 21.1 H Platelet Count 515 H Mean Platelet Volume 9.6 Neutrophils % 61.0 Lymphocytes % 19.5 Monocytes % 11.8 H Eosinophils % 3.7 Basophils % 0.8 Nucleated Red Blood Cells % 0.5 H Neutrophils # 6.7 Lymphocytes # 2.2 Monocytes # 1.3 H Eosinophils # 0.4 Basophils # 0.1 Nucleated Red Blood Cells # 0.1 H Sodium Level 135 Potassium Level 4.6 Chloride Level 99 Carbon Dioxide Level 24 Anion Gap 17 H Blood Urea Nitrogen 57 H Creatinine 5.61 H Glucose Level 108 # Calcium Level 8.8 Phosphorus Level 4.9 Iron Level 51 Total Iron Binding Capacity 228 L Percent Iron Saturation 22 Ferritin 252.0 Total Bilirubin 0.0 L Direct Bilirubin 0.00 Indirect Bilirubin 0.0 Aspartate Amino Transf (AST/SGOT) 15 Alanine Aminotransferase (ALT/SGPT) 36 Alkaline Phosphatase 93 Total Protein 6.0 L Albumin 3.3 Globulin 2.70 Albumin/Globulin Ratio 1.22 Bedside Glucose 77 Medications Medications Current Medications Ondansetron HCl (Zofran Inj) 4 mg Q6H PRN IV NAUSEA AND/OR VOMITING; Start at 19:30 Acetaminophen (Tylenol Tab) 650 mg Q6H PRN PO PAIN LEVEL 1-3 OR FEVER; Start at 19:30 Acetaminophen/ Hydrocodone Bitart ([place] (5/325)) 1 tab Q6H PRN PO MODERATE PAIN LEVEL 4-6 Last administered on 09/11/16 21:32; Admin Dose 1 TAB; Start at 19:30 Morphine Sulfate (morphine) 2 mg Q4H PRN IV SEVERE PAIN LEVEL 7-10 Last administered on 09/11/16 08:25; Admin Dose 2 MG; Start 09/09/16 at 19:30 Docusate Sodium (Colace) 100 mg Q12H PRN PO CONSTIPATION; Start 09/09/16 at 19: 30 Zolpidem Tartrate 5 mg 5 mg QHS PRN PO SLEEP Last administered on 09/11/16 23: 45; Admin Dose 5 MG; Start 09/09/16 at 19:30 Ceftriaxone Sodium (Rocephin) 50 ml @ 100 mls/hr Q24H IVPB Last administered on 09/11/16 21:38; Admin Dose 100 MLS/HR; Start 09/09/16 at 21:30 Albuterol (Ventolin Hfa) 2 puff Q4H PRN INH WHEEZING AND SOB; Start 09/09/16 at 19:30 Apixaban (Eliquis) 5 mg BID PO Last administered on 09/12/16 08:15; Admin Dose 5 MG; Start 09/09/16 at 21:00 Aspirin (Aspirin) 81 mg DAILY PO Last administered on 09/12/16 08:15; Admin Dose 81 MG; Start 09/10/16 at 09:00 Atorvastatin Calcium (Lipitor) 40 mg QHS PO Last administered on 09/11/16 21: 19; Admin Dose 40 MG; Start 09/09/16 at 21:00 Benzonatate (Tessalon) 100 mg Q6 PO Last administered on 09/12/16 05:59; Admin Dose 100 MG; Start 09/10/16 at 00:00 Cinacalcet (Sensipar) 30 mg DAILY PO Last administered on 09/12/16 08:15; Admin Dose 30 MG; Start 09/10/16 at 09:00 Diltiazem HCl (Cardizem Sr) 60 mg Q12 PO Last administered on 09/11/16 21:21; Admin Dose 60 MG; Start 09/09/16 at 21:00 Furosemide (Lasix) 80 mg DAILY PO Last administered on 09/10/16 09:25; Admin Dose 80 MG; Start 09/10/16 at 09:00 Insulin Detemir (Levemir) 90 unit QHS SC Last administered on 09/11/16 21:37; Admin Dose 90 UNIT; Start 09/09/16 at 21:00 Losartan Potassium (Cozaar) 50 mg BID PO Last administered on 09/11/16 21:20; Admin Dose 50 MG; Start 09/09/16 at 21:00 Metoprolol Succinate (Toprol Xl) 50 mg DAILY PO Last administered on 09/12/16 10:48; Admin Dose 50 MG; Start 09/10/16 at 09:00 Montelukast Sodium (Singulair) 10 mg QAM PO Last administered on 09/12/16 08: 15; Admin Dose 10 MG; Start 09/10/16 at 09:00 Pyridoxine HCl (Vitamin B6) 50 mg DAILY PO Last administered on 09/12/16 08:14 ; Admin Dose 50 MG; Start 09/10/16 at 09:00 Tiotropium [place] (Spiriva) 1 inh DAILY INH Last administered on 09/12/16 09: 52; Admin Dose 1 INH; Start 09/10/16 at 09:00 Salmeterol Xinafoate/ Fluticasone (Advair 250/50 Diskus) 1 inh BID INH Last administered on 09/12/16 08:18; Admin Dose 1 INH; Start 09/09/16 at 21:00 Pantoprazole (Protonix Tab) 40 mg DAILY@06 PO Last administered on 09/12/16 05 :59; Admin Dose 40 MG; Start 09/10/16 at 06:00 Miscellaneous Information 1 ea NOTE XX ; Start 09/09/16 at 20:30 Glucose (Glutose) 15 gm Q15M PRN PO DECREASED GLUCOSE; Start 09/09/16 at 20:30 Glucose (Glutose) 22.5 gm Q15M PRN PO DECREASED GLUCOSE; Start 09/09/16 at 20: 31 Dextrose (D50w Syringe) 25 ml Q15M PRN IV DECREASED GLUCOSE; Start 09/09/16 at 20:30 Dextrose (D50w Syringe) 50 ml Q15M PRN IV DECREASED GLUCOSE; Start 09/09/16 at 20:30 Glucagon (Glucagen) 1 mg Q15M PRN IM DECREASED GLUCOSE; Start 09/09/16 at 20:30 Glucose (Glutose) 15 gm Q15M PRN BUCCAL DECREASED GLUCOSE; Start 09/09/16 at 20 :30 Collagenase 1 applic 1 applic DAILY TOP Last administered on 09/12/16 01:38; Admin Dose 1 APPLIC; Start 09/10/16 at 21:00 Vancomycin HCl (Vancocin) 250 ml @ 125 mls/hr 10 IVPB Last administered on 10:52; Admin Dose 125 MLS/HR; Start 09/12/16 at 10:00; Stop 09/12/16 at 23:00 PRIMO LEWIS MD Sep 12, 2016 11:47
[2016-09-12] MEDS: HYDROCODONE/APAP (5/325) TAB PO PRN (14:51)
[2016-09-12] MEDS: morphine 2 MG INJ IV PRN (18:33)
--- NOTE | 2016-09-12 18:59 | PN ---
Date/Time of Note Date/Time of Note DATE: 09/12/16 TIME: 18:57 Assessment/Plan VTE Prophylaxis VTE Prophylaxis Intervention: other Lines/Catheters IV Catheter Type (from Nrs): Saline Lock Assessment/Plan Chief Complaint/Hosp Course 1. Sepsis secondary to urinary tract infection and/or cellulitis -cont Vanco and Rocephin 2. Left thigh chronic wound -Vascular consult appreciated, continue wound care -Arterial study is neg for sig occlusion, CTA of the lower extremities shows no significant occlusion but follow-up with vascular recommendations tomorrow 3. History of atrial fibrillation - Continue home Coumadin 4. End-stage renal disease -HD per Renal 5. Anemia of chronic disease and end-stage renal disease - The patient has no reports of any bleeding at this time. 6. Hypertension -Continue home medications 7. Diabetes - Continue home insulin regimen 8. Dyslipidemia -Continue statin Discharge planning: Follow-up with vascular recommendations tomorrow if there is no plans for surgery then anticipate DC to home in 1-2 days Prophylaxis-The patient is on Eliquis Problems: Subjective 24 Hr Interval Summary Skin: skin lesions Exam/Review of Systems Vital Signs Vitals Vital Signs Date Time Temp Pulse Resp B/P Pulse Ox O2 Delivery O2 Flow Rate FiO2 09/12/16 16:05 106 09/12/16 15:40 98.7 16 124/58 91 09/12/16 10:00 Nasal Cannula 2.0 Intake and Output 09/11/16 09/11/16 09/12/16 15:00 23:00 07:00 Intake Total 720 ml 480 ml Output Total 0 ml Balance 720 ml 480 ml Exam Constitutional: alert, oriented Respiratory: clear to auscultation Cardiovascular: regular rate and rhythm Gastrointestinal: soft, No distended Musculoskeletal: No nl extremities to inspection Results Result Diagram: 09/12/1651609/12/16516 Results 24 hrs Laboratory Tests Test 09/11/16 21:16 09/12/16 02:24 09/12/16 05:17 09/12/16 08:02 Bedside Glucose 301 H 213 77 White Blood Count 11.1 H Red Blood Count 2.86 L Hemoglobin 9.0 L Hematocrit 29.3 L Mean Corpuscular Volume 102.4 H Mean Corpuscular Hemoglobin 31.5 Mean Corpuscular Hemoglobin Concent 30.7 L Red Cell Distribution Width 21.1 H Platelet Count 515 H Mean Platelet Volume 9.6 Neutrophils % 61.0 Lymphocytes % 19.5 Monocytes % 11.8 H Eosinophils % 3.7 Basophils % 0.8 Nucleated Red Blood Cells % 0.5 H Neutrophils # 6.7 Lymphocytes # 2.2 Monocytes # 1.3 H Eosinophils # 0.4 Basophils # 0.1 Nucleated Red Blood Cells # 0.1 H Sodium Level 135 Potassium Level 4.6 Chloride Level 99 Carbon Dioxide Level 24 Anion Gap 17 H Blood Urea Nitrogen 57 H Creatinine 5.61 H Glucose Level 108 # Calcium Level 8.8 Phosphorus Level 4.9 Iron Level 51 Total Iron Binding Capacity 228 L Percent Iron Saturation 22 Ferritin 252.0 Total Bilirubin 0.0 L Direct Bilirubin 0.00 Indirect Bilirubin 0.0 Aspartate Amino Transf (AST/SGOT) 15 Alanine Aminotransferase (ALT/SGPT) 36 Alkaline Phosphatase 93 Total Protein 6.0 L Albumin 3.3 Globulin 2.70 Albumin/Globulin Ratio 1.22 Test 09/12/16 12:30 09/12/16 17:41 Bedside Glucose 194 200 Medications Medications Current Medications Ondansetron HCl (Zofran Inj) 4 mg Q6H PRN IV NAUSEA AND/OR VOMITING; Start at 19:30 Acetaminophen (Tylenol Tab) 650 mg Q6H PRN PO PAIN LEVEL 1-3 OR FEVER; Start at 19:30 Acetaminophen/ Hydrocodone Bitart ([place] (5/325)) 1 tab Q6H PRN PO MODERATE PAIN LEVEL 4-6 Last administered on 09/12/16 14:51; Admin Dose 1 TAB; Start at 19:30 Morphine Sulfate (morphine) 2 mg Q4H PRN IV SEVERE PAIN LEVEL 7-10 Last administered on 09/12/16 18:33; Admin Dose 2 MG; Start 09/09/16 at 19:30 Docusate Sodium (Colace) 100 mg Q12H PRN PO CONSTIPATION; Start 09/09/16 at 19: 30 Zolpidem Tartrate 5 mg 5 mg QHS PRN PO SLEEP Last administered on 09/11/16 23: 45; Admin Dose 5 MG; Start 09/09/16 at 19:30 Ceftriaxone Sodium (Rocephin) 50 ml @ 100 mls/hr Q24H IVPB Last administered on 09/11/16 21:38; Admin Dose 100 MLS/HR; Start 09/09/16 at 21:30 Albuterol (Ventolin Hfa) 2 puff Q4H PRN INH WHEEZING AND SOB; Start 09/09/16 at 19:30 Apixaban (Eliquis) 5 mg BID PO Last administered on 09/12/16 08:15; Admin Dose 5 MG; Start 09/09/16 at 21:00 Aspirin (Aspirin) 81 mg DAILY PO Last administered on 09/12/16 08:15; Admin Dose 81 MG; Start 09/10/16 at 09:00 Atorvastatin Calcium (Lipitor) 40 mg QHS PO Last administered on 09/11/16 21: 19; Admin Dose 40 MG; Start 09/09/16 at 21:00 Benzonatate (Tessalon) 100 mg Q6 PO Last administered on 09/12/16 12:45; Admin Dose 100 MG; Start 09/10/16 at 00:00 Cinacalcet (Sensipar) 30 mg DAILY PO Last administered on 09/12/16 08:15; Admin Dose 30 MG; Start 09/10/16 at 09:00 Diltiazem HCl (Cardizem Sr) 60 mg Q12 PO Last administered on 09/12/16 12:51; Admin Dose 60 MG; Start 09/09/16 at 21:00 Furosemide (Lasix) 80 mg DAILY PO Last administered on 09/10/16 09:25; Admin Dose 80 MG; Start 09/10/16 at 09:00 Insulin Detemir (Levemir) 90 unit QHS SC Last administered on 09/11/16 21:37; Admin Dose 90 UNIT; Start 09/09/16 at 21:00 Losartan Potassium (Cozaar) 50 mg BID PO Last administered on 09/11/16 21:20; Admin Dose 50 MG; Start 09/09/16 at 21:00 Metoprolol Succinate (Toprol Xl) 50 mg DAILY PO Last administered on 09/12/16 10:48; Admin Dose 50 MG; Start 09/10/16 at 09:00 Montelukast Sodium (Singulair) 10 mg QAM PO Last administered on 09/12/16 08: 15; Admin Dose 10 MG; Start 09/10/16 at 09:00 Pyridoxine HCl (Vitamin B6) 50 mg DAILY PO Last administered on 09/12/16 08:14 ; Admin Dose 50 MG; Start 09/10/16 at 09:00 Tiotropium [place] (Spiriva) 1 inh DAILY INH Last administered on 09/12/16 09: 52; Admin Dose 1 INH; Start 09/10/16 at 09:00 Salmeterol Xinafoate/ Fluticasone (Advair 250/50 Diskus) 1 inh BID INH Last administered on 09/12/16 08:18; Admin Dose 1 INH; Start 09/09/16 at 21:00 Pantoprazole (Protonix Tab) 40 mg DAILY@06 PO Last administered on 09/12/16 05 :59; Admin Dose 40 MG; Start 09/10/16 at 06:00 Miscellaneous Information 1 ea NOTE XX ; Start 09/09/16 at 20:30 Glucose (Glutose) 15 gm Q15M PRN PO DECREASED GLUCOSE; Start 09/09/16 at 20:30 Glucose (Glutose) 22.5 gm Q15M PRN PO DECREASED GLUCOSE; Start 09/09/16 at 20: 31 Dextrose (D50w Syringe) 25 ml Q15M PRN IV DECREASED GLUCOSE; Start 09/09/16 at 20:30 Dextrose (D50w Syringe) 50 ml Q15M PRN IV DECREASED GLUCOSE; Start 09/09/16 at 20:30 Glucagon (Glucagen) 1 mg Q15M PRN IM DECREASED GLUCOSE; Start 09/09/16 at 20:30 Glucose (Glutose) 15 gm Q15M PRN BUCCAL DECREASED GLUCOSE; Start 09/09/16 at 20 :30 Collagenase 1 applic 1 applic DAILY TOP Last administered on 09/12/16 01:38; Admin Dose 1 APPLIC; Start 09/10/16 at 21:00 Vancomycin HCl (Vancocin) 250 ml @ 125 mls/hr 10 IVPB Last administered on 10:52; Admin Dose 125 MLS/HR; Start 09/12/16 at 10:00; Stop 09/12/16 at 23:00 MICHAEL COULTER Sep 12, 2016 18:59
[2016-09-12] MEDS ORDERED: METOPROLOL (XL) 50 MG TAB PO ONE (19:30)
[2016-09-12] MEDS: ATORVASTATIN 40 MG TAB PO SCH (21:23)
[2016-09-12] MEDS: INSULIN DETEMIR [LEVEMIR] 3ML CART SC SCH (21:34)
[2016-09-12] MEDS: CEFTRIAXONE 1 GM/50 ML (PMX) 50 ML IVPB SCH (21:35)
[2016-09-12] MEDS: ZOLPIDEM 5 MG TAB PO PRN (23:11)
[2016-09-13] VITALS (12 sets, daily range): BP systolic 105–149; BP diastolic 56–76; PULSE 94–130; RESP 18–20
[2016-09-13] MEDS: morphine 2 MG INJ IV PRN ×2 (00:16→10:01)
[2016-09-13] MEDS ORDERED: INSULIN ASPART [NOVOLOG] 3 ML PEN SC ONE (03:30)
[2016-09-13] MEDS: PANTOPRAZOLE (EC) 40 MG TAB PO SCH (06:55)
[2016-09-13] MEDS: METOCLOPRAMIDE 5 MG TAB PO SCH ×3 (06:55→17:18)
[2016-09-13] MEDS: BENZONATATE 100 MG CAP PO SCH ×4 (06:55→23:56)
[2016-09-13 07:59] LABS: ADD SCAN DIFF NO
--- NOTE | 2016-09-13 08:00 | PN ---
Date/Time of Note Date/Time of Note DATE: 09/13/16 TIME: 07:55 Assessment/Plan Lines/Catheters IV [facility]from [facility] Saline Lock Assessment/Plan Chief Complaint/Hosp Course -Bilateral lower extremity atherosclerosis with ulcers: It seems the patient may have a component of mixed disease with arterial insufficiency and venous insufficiency. Upon her noninvasive vascular studies the patient has what seems to be infrapopliteal disease with monophasic flow in her tibials. There is concern that the patient may have diabetic tibioperoneal disease. Upon CT angiography of the lower extremities she has adequate perfusion to her upper leg and should be cleared from vascular standpoint to undergoe debridement in that segment. -The patient may require an actual angiography for her infrapopliteal disease if her lower leg ulcers don't heal with wound care and 2-layer compression therapy -Bilateral lower extremity venous insufficiency with ulcers (CEAP classification 6): The patient also has a mixed component of venous disease in light of her bilateral lower extremity atherosclerosis. We will plan to obtain eventual reflux studies as an outpatient, but at the moment, we will plan to apply Santyl medication to her ulcers and plan to apply a 2-layer compression dressings with Kerlix and Antoni wrap and would recommend consulting our wound care management team. -Obtain bilateral lower extremity vein mapping. -Optimize vascular status (BP meds, diet, nutrition, exercise, sugar control, antiplatelets). -Discussed smoking cessation with the patient, would recommend for her to have decrease the amount of cigarettes that she smokes per day, currently a pack and a half. -End-stage renal disease: Although the patient has a functioning fistula; fistula ultrasound demonstrated low flow volume and neointimal hyperplasia in the anastomosis segment. Will schedule her for fistulogram in the near future ( outpatient) -Discussed findings, plan and management with the patient and she understands. -Thank you for allowing us to partake in the care of your patient. Please call with any questions. Problems: Subjective 24 Hr Interval Summary No new vascular events overnight Exam/Review of Systems Vital Signs Vitals Vital Signs Date Time Temp Pulse Resp B/P Pulse Ox O2 Delivery O2 Flow Rate FiO2 09/13/16 07:25 98.4 113 20 118/69 92 09/12/16 10:00 Nasal Cannula 2.0 Intake and Output 4/30/17 4/30/17 5/1/17 15:00 23:00 07:00 Intake Total 300 ml 100 ml 550 ml Output Total 4000 ml Balance -3700 ml 100 ml 550 ml Exam Free Text/Dictation GENERAL: Alert and oriented x3, PULMONARY: Clear to auscultation bilaterally. CARDIOVASCULAR: S1, S2 present. ABDOMEN: Soft, nontender, nondistended. Bowel sounds positive. Truncal obesity, large pannus. EXTREMITIES: -Right lower extremity palpable femoral pulse, nonpalpable pedal pulse. Motor, sensory intact. Cap refill 3 to 4 seconds, edema 1 to 2+. Upper lateral thigh ulcer that is superficial and almost healed. Lower leg with lipodermatosclerosis, spider veins, telangiectasias and also multiple areas of healed ulcers. -Left lower extremity palpable femoral pulse, nonpalpable pedal pulse. Motor, sensory intact. Capillary refill 3 to 4 seconds. Edema 2+. Presence of a lateral thigh ulcer measuring 5 x 3 x 1cm with an eschar and surrounding erythema improving. Lower leg with lipodermatosclerosis with multiple ulcers: medial, lateral and bahena ulcers that seem to be superficial with eschar on it as well. Tender to touch. Results Result Diagram: 09/12/16 0517 09/13/16 0235 MAYLIN BROWN MD September 13, 2016 08:00
[2016-09-13 08:04] LABS: BASOPHIL # 0.1 10^3/ul (0.0-0.1); BASOPHILS % 0.7 % (0.0-2.0); EOSINOPHILS # 0.4 10^3/ul (0.0-0.5); EOSINOPHILS % 4.4 % (0.0-7.0); HEMATOCRIT 27.7 % (37.0-47.0); HEMOGLOBIN 8.3 g/dl (12.0-16.0); LYMPHOCYTES # 1.5 10^3/ul (0.8-2.9); LYMPHOCYTES % 17.3 % (15.0-51.0); MEAN CORPUSCULAR HEMOGLOBIN 31.2 pg (29.0-33.0); MEAN CORPUSCULAR VOLUME 104.1 fl (82.0-101.0); MEAN PLATELET VOLUME 9.7 fl (7.4-10.4); MONOCYTE # 1.2 10^3/ul (0.3-0.9); MONOCYTES % 13.8 % (0.0-11.0); NEUTROPHIL # 5.3 10^3/ul (1.6-7.5); NEUTROPHILS % 59.3 % (39.0-77.0); NUCLEATED RED BLOOD CELLS% 0.3 /100WBC (0.0-0.0); PLATELET COUNT 432 10^3/UL (140-415); RED BLOOD COUNT 2.66 10^6/ul (4.20-5.40); RED CELL DISTRIBUTION WIDTH 21.2 % (11.5-14.5); WHITE BLOOD COUNT 8.9 10^3/ul (4.8-10.8)
[2016-09-13 08:23] LABS: ALBUMIN/GLOBULIN RATIO 1.15; CALCIUM 8.5 mg/dl (8.4-10.2); CREATININE 4.44 mg/dl (0.44-1.00); POTASSIUM 4.8 mmol/L (3.5-5.1); TOTAL PROTEIN 5.6 g/dl (6.1-8.1)
--- NOTE | 2016-09-13 08:46 | CONS ---
Date/Time of Note Date/Time of Note DATE: 09/13/16 TIME: 08:44 Assessment/Plan Assessment/Plan Additional Assessment/Plan 1. CKD, will schedule next hd tomm 2. Will contact her reg Investment Analyst today 3. Left leg ulcers and cellulitis, on abx Consultation Date/Type/Reason Admit Date/Time Sep 09, 2016 at 17:15 Initial Consult Date Detailed Summary Respiratory: No cough Cardiovascular: No chest pain Gastrointestinal: no complaints Genitourinary: no complaints Exam/Review of Systems Vital Signs Vitals Vital Signs Date Time Temp Pulse Resp B/P Pulse Ox O2 Delivery O2 Flow Rate FiO2 09/13/16 08:14 117 09/13/16 07:25 98.4 20 118/69 92 09/12/16 10:00 Nasal Cannula 2.0 Intake and Output 09/12/16 09/12/16 09/13/16 15:00 23:00 07:00 Intake Total 300 ml 100 ml 550 ml Output Total 4000 ml Balance -3700 ml 100 ml 550 ml Exam Neck: No jvd Respiratory: clear to auscultation Cardiovascular: irregular rhythm Gastrointestinal: soft Extremities: No edema (left thigh ulcer noted and tibia erythema) Results Result Diagram: 09/13/16 0655 09/13/16 0655 Results 24 hrs Laboratory Tests Test 09/12/16 12:30 09/12/16 17:41 09/12/16 20:21 09/12/16 21:27 Bedside Glucose 194 200 281 H 279 H Test 09/13/16 02:11 09/13/16 02:35 09/13/16 03:49 09/13/16 06:55 Bedside Glucose 417 *H 378 H Glucose Level 378 #H 348 H White Blood Count 8.9 Red Blood Count 2.66 L Hemoglobin 8.3 L Hematocrit 27.7 L Mean Corpuscular Volume 104.1 H Mean Corpuscular Hemoglobin 31.2 Mean Corpuscular Hemoglobin Concent 30.0 L Red Cell Distribution Width 21.2 H Platelet Count 432 H Mean Platelet Volume 9.7 Neutrophils % 59.3 Lymphocytes % 17.3 Monocytes % 13.8 H Eosinophils % 4.4 Basophils % 0.7 Nucleated Red Blood Cells % 0.3 H Neutrophils # 5.3 Lymphocytes # 1.5 Monocytes # 1.2 H Eosinophils # 0.4 Basophils # 0.1 Nucleated Red Blood Cells # 0.0 Sodium Level 132 L Potassium Level 4.8 Chloride Level 98 Carbon Dioxide Level 25 Anion Gap 14 Blood Urea Nitrogen 47 H Creatinine 4.44 #H Calcium Level 8.5 Total Bilirubin 0.0 L Direct Bilirubin 0.00 Indirect Bilirubin 0.0 Aspartate Amino Transf (AST/SGOT) 15 Alanine Aminotransferase (ALT/SGPT) 35 Alkaline Phosphatase 88 Total Protein 5.6 L Albumin 3.0 L Globulin 2.60 Albumin/Globulin Ratio 1.15 Test 09/13/16 08:12 Bedside Glucose 345 H Medications Medications Current Medications Ondansetron HCl (Zofran Inj) 4 mg Q6H PRN IV NAUSEA AND/OR VOMITING; Start at 19:30 Acetaminophen (Tylenol Tab) 650 mg Q6H PRN PO PAIN LEVEL 1-3 OR FEVER; Start at 19:30 Acetaminophen/ Hydrocodone Bitart ([place] (5/325)) 1 tab Q6H PRN PO MODERATE PAIN LEVEL 4-6 Last administered on 09/12/16 14:51; Admin Dose 1 TAB; Start at 19:30 Morphine Sulfate (morphine) 2 mg Q4H PRN IV SEVERE PAIN LEVEL 7-10 Last administered on 09/13/16 00:16; Admin Dose 2 MG; Start 09/09/16 at 19:30 Docusate Sodium (Colace) 100 mg Q12H PRN PO CONSTIPATION; Start 09/09/16 at 19: 30 Zolpidem Tartrate 5 mg 5 mg QHS PRN PO SLEEP Last administered on 09/12/16 23: 11; Admin Dose 5 MG; Start 09/09/16 at 19:30 Ceftriaxone Sodium (Rocephin) 50 ml @ 100 mls/hr Q24H IVPB Last administered on 09/12/16 21:35; Admin Dose 100 MLS/HR; Start 09/09/16 at 21:30 Albuterol (Ventolin Hfa) 2 puff Q4H PRN INH WHEEZING AND SOB; Start 09/09/16 at 19:30 Apixaban (Eliquis) 5 mg BID PO Last administered on 09/12/16 21:23; Admin Dose 5 MG; Start 09/09/16 at 21:00 Aspirin (Aspirin) 81 mg DAILY PO Last administered on 09/12/16 08:15; Admin Dose 81 MG; Start 09/10/16 at 09:00 Atorvastatin Calcium (Lipitor) 40 mg QHS PO Last administered on 09/12/16 21: 23; Admin Dose 40 MG; Start 09/09/16 at 21:00 Benzonatate (Tessalon) 100 mg Q6 PO Last administered on 09/13/16 06:55; Admin Dose 100 MG; Start 09/10/16 at 00:00 Cinacalcet (Sensipar) 30 mg DAILY PO Last administered on 09/12/16 08:15; Admin Dose 30 MG; Start 09/10/16 at 09:00 Diltiazem HCl (Cardizem Sr) 60 mg Q12 PO Last administered on 09/12/16 21:24; Admin Dose 60 MG; Start 09/09/16 at 21:00 Furosemide (Lasix) 80 mg DAILY PO Last administered on 09/10/16 09:25; Admin Dose 80 MG; Start 09/10/16 at 09:00 Insulin Detemir (Levemir) 90 unit QHS SC Last administered on 09/12/16 21:34; Admin Dose 90 UNIT; Start 09/09/16 at 21:00 Losartan Potassium (Cozaar) 50 mg BID PO Last administered on 09/12/16 21:23; Admin Dose 50 MG; Start 09/09/16 at 21:00 Montelukast Sodium (Singulair) 10 mg QAM PO Last administered on 09/12/16 08: 15; Admin Dose 10 MG; Start 09/10/16 at 09:00 Pyridoxine HCl (Vitamin B6) 50 mg DAILY PO Last administered on 09/12/16 08:14 ; Admin Dose 50 MG; Start 09/10/16 at 09:00 Tiotropium [place] (Spiriva) 1 inh DAILY INH Last administered on 09/12/16 09: 52; Admin Dose 1 INH; Start 09/10/16 at 09:00 Salmeterol Xinafoate/ Fluticasone (Advair 250/50 Diskus) 1 inh BID INH Last administered on 09/12/16 21:24; Admin Dose 1 INH; Start 09/09/16 at 21:00 Pantoprazole (Protonix Tab) 40 mg DAILY@06 PO Last administered on 09/13/16 06: 55; Admin Dose 40 MG; Start 09/10/16 at 06:00 Miscellaneous Information 1 ea NOTE XX ; Start 09/09/16 at 20:30 Glucose (Glutose) 15 gm Q15M PRN PO DECREASED GLUCOSE; Start 09/09/16 at 20:30 Glucose (Glutose) 22.5 gm Q15M PRN PO DECREASED GLUCOSE; Start 09/09/16 at 20: 31 Dextrose (D50w Syringe) 25 ml Q15M PRN IV DECREASED GLUCOSE; Start 09/09/16 at 20:30 Dextrose (D50w Syringe) 50 ml Q15M PRN IV DECREASED GLUCOSE; Start 09/09/16 at 20:30 Glucagon (Glucagen) 1 mg Q15M PRN IM DECREASED GLUCOSE; Start 09/09/16 at 20:30 Glucose (Glutose) 15 gm Q15M PRN BUCCAL DECREASED GLUCOSE; Start 09/09/16 at 20 :30 Collagenase (Santyl) 1 applic DAILY TOP Last administered on 09/12/16 01:38; Admin Dose 1 APPLIC; Start 09/10/16 at 21:00 Metoprolol Succinate (Toprol Xl) 100 mg DAILY PO ; Start 09/13/16 at 09:00 ELLEN BOURGEOIS MD September 13, 2016 08:46
[2016-09-13] MEDS: SALMETEROL/FLUTICASONE 250/50 INHA INH SCH ×2 (09:40→21:33)
[2016-09-13] MEDS: PYRIDOXINE 50 MG TAB PO SCH (09:40)
[2016-09-13] MEDS: TIOTROPIUM 18 MCG CAPSULE INHA DEV INH SCH (09:41)
[2016-09-13] MEDS: CALCIUM ACETATE 667 MG CAP PO SCH ×3 (09:41→17:18)
[2016-09-13] MEDS: CINACALCET 30 MG TAB PO SCH (09:41)
[2016-09-13] MEDS: ASPIRIN 81 MG TAB PO SCH (09:41)
[2016-09-13] MEDS: MONTELUKAST 10 MG TAB PO SCH (09:41)
[2016-09-13] MEDS: FUROSEMIDE 40 MG TAB PO SCH (09:42)
[2016-09-13] MEDS: LOSARTAN 50 MG TAB PO SCH ×2 (09:42→21:38)
[2016-09-13] MEDS: APIXABAN 5 MG TABLET PO SCH ×2 (09:42→21:33)
[2016-09-13] MEDS: METOPROLOL (XL) 50 MG TAB PO SCH (09:43)
[2016-09-13] MEDS: COLLAGENASE 30 GM TUBE TOP SCH (09:45)
[2016-09-13] MEDS: INSULIN ASPART [NOVOLOG] 3 ML PEN SC SCH ×7 (09:47→21:49)
--- NOTE | 2016-09-13 10:42 | CONS ---
Date/Time of Note Date/Time of Note DATE: 09/13/16 TIME: 10:37 Assessment/Plan Assessment/Plan Chief Complaint/Hosp Course - ESRD on Hemodialysis - Anemia of chronic Disease - Hypertension - Secondary hyperparathyroidism - Hyperphosphatemia - Sepsis due to UTI - Chronic thigh infection - Smoker - CAD PLAN: She is on HD - - Tuesday Will schedule dialysis for tomorrow Check Iron status Start EPOGEN Continue with Sensipar & Her Phos. Binders Abx per Primary service Problems: Consultation Date/Type/Reason Admit Date/Time Sep 09, 2016 at 17:15 Date of Consultation: September 13, 2016 Type of Consultation: NEPHROLOGY Reason for Consultation - ESRD on Hemodialysis Hx of Present Illness The patient is a 61-year-old female with a history of end-stage renal disease on dialysis. She has a history of dyslipidemia, diabetes, COPD, as well as a wound in the left leg. It has been there for approximately 1 month. [facility] + [place] and [place]. The patient presents with a chief complaint of left leg pain. Constitutional: no complaints Respiratory: No cough Cardiovascular: No chest pain Gastrointestinal: no complaints Genitourinary: no complaints Musculoskeletal: back pain Skin: skin lesions Psychological: no complaints Past Medical History Medical History: congestive heart failure, coronary artery disease, diabetes, high cholesterol, hypertension Family History Significant Family History: no pertinent family hx Social History Alcohol Use: none Smoking Status: Current every day smoker Drug Use: none Exam/Review of Systems Vital Signs Vitals Vital Signs Date Time Temp Pulse Resp B/P Pulse Ox O2 Delivery O2 Flow Rate FiO2 09/13/16 08:14 117 09/13/16 07:25 98.4 20 118/69 92 09/12/16 10:00 Nasal Cannula 2.0 Intake and Output 09/12/16 09/12/16 09/13/16 15:00 23:00 07:00 Intake Total 300 ml 100 ml 550 ml Output Total 4000 ml Balance -3700 ml 100 ml 550 ml Exam Constitutional: alert Head: normocephalic Eyes: nl conjunctiva Neck: supple Respiratory: crackles/rales Cardiovascular: regular rate and rhythm, systolic murmur Gastrointestinal: soft Results Result Diagram: 09/13/16 0655 09/13/16 0655 Results 24 hrs Laboratory Tests Test 09/12/16 12:30 09/12/16 17:41 09/12/16 20:21 09/12/16 21:27 Bedside Glucose 194 200 281 H 279 H Test 09/13/16 02:11 09/13/16 02:35 09/13/16 03:49 09/13/16 06:55 Bedside Glucose 417 *H 378 H Glucose Level 378 #H 348 H White Blood Count 8.9 Red Blood Count 2.66 L Hemoglobin 8.3 L Hematocrit 27.7 L Mean Corpuscular Volume 104.1 H Mean Corpuscular Hemoglobin 31.2 Mean Corpuscular Hemoglobin Concent 30.0 L Red Cell Distribution Width 21.2 H Platelet Count 432 H Mean Platelet Volume 9.7 Neutrophils % 59.3 Lymphocytes % 17.3 Monocytes % 13.8 H Eosinophils % 4.4 Basophils % 0.7 Nucleated Red Blood Cells % 0.3 H Neutrophils # 5.3 Lymphocytes # 1.5 Monocytes # 1.2 H Eosinophils # 0.4 Basophils # 0.1 Nucleated Red Blood Cells # 0.0 Sodium Level 132 L Potassium Level 4.8 Chloride Level 98 Carbon Dioxide Level 25 Anion Gap 14 Blood Urea Nitrogen 47 H Creatinine 4.44 #H Calcium Level 8.5 Total Bilirubin 0.0 L Direct Bilirubin 0.00 Indirect Bilirubin 0.0 Aspartate Amino Transf (AST/SGOT) 15 Alanine Aminotransferase (ALT/SGPT) 35 Alkaline Phosphatase 88 Total Protein 5.6 L Albumin 3.0 L Globulin 2.60 Albumin/Globulin Ratio 1.15 Test 09/13/16 08:12 Bedside Glucose 345 H Medications Medications Current Medications Ondansetron HCl (Zofran Inj) 4 mg Q6H PRN IV NAUSEA AND/OR VOMITING; Start at 19:30 Acetaminophen (Tylenol Tab) 650 mg Q6H PRN PO PAIN LEVEL 1-3 OR FEVER; Start at 19:30 Acetaminophen/ Hydrocodone Bitart ([place] (5/325)) 1 tab Q6H PRN PO MODERATE PAIN LEVEL 4-6 Last administered on 09/12/16 14:51; Admin Dose 1 TAB; Start at 19:30 Morphine Sulfate (morphine) 2 mg Q4H PRN IV SEVERE PAIN LEVEL 7-10 Last administered on 09/13/16 10:01; Admin Dose 2 MG; Start 09/09/16 at 19:30 Docusate Sodium (Colace) 100 mg Q12H PRN PO CONSTIPATION; Start 09/09/16 at 19: 30 Zolpidem Tartrate 5 mg 5 mg QHS PRN PO SLEEP Last administered on 09/12/16 23: 11; Admin Dose 5 MG; Start 09/09/16 at 19:30 Ceftriaxone Sodium (Rocephin) 50 ml @ 100 mls/hr Q24H IVPB Last administered on 09/12/16 21:35; Admin Dose 100 MLS/HR; Start 09/09/16 at 21:30 Albuterol (Ventolin Hfa) 2 puff Q4H PRN INH WHEEZING AND SOB; Start 09/09/16 at 19:30 Apixaban (Eliquis) 5 mg BID PO Last administered on 09/13/16 09:42; Admin Dose 5 MG; Start 09/09/16 at 21:00 Aspirin (Aspirin) 81 mg DAILY PO Last administered on 09/13/16 09:41; Admin Dose 81 MG; Start 09/10/16 at 09:00 Atorvastatin Calcium (Lipitor) 40 mg QHS PO Last administered on 09/12/16 21: 23; Admin Dose 40 MG; Start 09/09/16 at 21:00 Benzonatate (Tessalon) 100 mg Q6 PO Last administered on 09/13/16 06:55; Admin Dose 100 MG; Start 09/10/16 at 00:00 Cinacalcet (Sensipar) 30 mg DAILY PO Last administered on 09/13/16 09:41; Admin Dose 30 MG; Start 09/10/16 at 09:00 Diltiazem HCl (Cardizem Sr) 60 mg Q12 PO Last administered on 09/12/16 21:24; Admin Dose 60 MG; Start 09/09/16 at 21:00 Furosemide (Lasix) 80 mg DAILY PO Last administered on 09/13/16 09:42; Admin Dose 80 MG; Start 09/10/16 at 09:00 Insulin Detemir (Levemir) 90 unit QHS SC Last administered on 09/12/16 21:34; Admin Dose 90 UNIT; Start 09/09/16 at 21:00 Losartan Potassium (Cozaar) 50 mg BID PO Last administered on 09/13/16 09:42; Admin Dose 50 MG; Start 09/09/16 at 21:00 Montelukast Sodium (Singulair) 10 mg QAM PO Last administered on 09/13/16 09:41 ; Admin Dose 10 MG; Start 09/10/16 at 09:00 Pyridoxine HCl (Vitamin B6) 50 mg DAILY PO Last administered on 09/13/16 09:40 ; Admin Dose 50 MG; Start 09/10/16 at 09:00 Tiotropium [place] (Spiriva) 1 inh DAILY INH Last administered on 09/13/16 09: 41; Admin Dose 1 INH; Start 09/10/16 at 09:00 Salmeterol Xinafoate/ Fluticasone (Advair 250/50 Diskus) 1 inh BID INH Last administered on 09/13/16 09:40; Admin Dose 1 INH; Start 09/09/16 at 21:00 Pantoprazole (Protonix Tab) 40 mg DAILY@06 PO Last administered on 09/13/16 06: 55; Admin Dose 40 MG; Start 09/10/16 at 06:00 Miscellaneous Information 1 ea NOTE XX ; Start 09/09/16 at 20:30 Glucose (Glutose) 15 gm Q15M PRN PO DECREASED GLUCOSE; Start 09/09/16 at 20:30 Glucose (Glutose) 22.5 gm Q15M PRN PO DECREASED GLUCOSE; Start 09/09/16 at 20: 31 Dextrose (D50w Syringe) 25 ml Q15M PRN IV DECREASED GLUCOSE; Start 09/09/16 at 20:30 Dextrose (D50w Syringe) 50 ml Q15M PRN IV DECREASED GLUCOSE; Start 09/09/16 at 20:30 Glucagon (Glucagen) 1 mg Q15M PRN IM DECREASED GLUCOSE; Start 09/09/16 at 20:30 Glucose (Glutose) 15 gm Q15M PRN BUCCAL DECREASED GLUCOSE; Start 09/09/16 at 20 :30 Collagenase (Santyl) 1 applic DAILY TOP Last administered on 09/13/16 09:45; Admin Dose 1 APPLIC; Start 09/10/16 at 21:00 Metoprolol Succinate (Toprol Xl) 100 mg DAILY PO Last administered on 09/13/16 09:43; Admin Dose 100 MG; Start 09/13/16 at 09:00 BECKY GAMBLE MD September 13, 2016 10:42
[2016-09-13 11:50] LABS: IRON 39 ug/dl (35-150)
[2016-09-13 12:00] LABS: TOTAL IRON BINDING CAPACITY 230 ug/dl (241-421)
[2016-09-13] MEDS: DILTIAZEM (SR) 60 MG CAP PO SCH ×2 (12:12→21:39)
--- NOTE | 2016-09-13 13:05 | PN ---
Date/Time of Note Date/Time of Note DATE: 09/13/16 TIME: 12:54 Assessment/Plan VTE Prophylaxis VTE Prophylaxis Intervention: LMWH, other Lines/Catheters IV [facility]from [facility] Saline Lock Assessment/Plan Chief Complaint/Hosp Course Assessment 1. Sepsis secondary to urinary tract infection and/or cellulitis 2. Left thigh chronic wound, seen by vascular surgery pending revascularization in 2 days time. 3. History of atrial fibrillation, anticoagulation to be held prior to surgery per vascular surgery recommendations 4. End-stage renal disease 5. Anemia of chronic disease and end-stage renal disease 6. Hypertension 7. Diabetes 8. Dyslipidemia Plan 1. Continue current antibiotics 2. Pending revascularization vascular surgery 3. Anticoagulation on hold. 4. Hemodialysis per nephrology 5. Monitor H&H 6. Continue current glycemic management 7. Continue statin Disposition Patient may require fdc following surgeries. Problems: Subjective 24 Hr Interval Summary Free Text/Dictation Comfortable this morning no shortness of breath no chest pain or palpitations Exam/Review of Systems Vital Signs Vitals Vital Signs Date Time Temp Pulse Resp B/P Pulse Ox O2 Delivery O2 Flow Rate FiO2 09/13/16 12:18 130 09/13/16 11:45 98.2 20 141/71 95 09/12/16 10:00 Nasal Cannula 2.0 Intake and Output 09/12/16 09/12/16 09/13/16 15:00 23:00 07:00 Intake Total 300 ml 100 ml 550 ml Output Total 4000 ml Balance -3700 ml 100 ml 550 ml Exam Well-nourished well-developed lady comfortable at rest no acute distress Results Result Diagram: 09/13/16 0655 09/13/16 0655 Results 24 hrs Laboratory Tests Test 09/12/16 17:41 09/12/16 20:21 09/12/16 21:27 09/13/16 02:11 Bedside Glucose 200 281 H 279 H 417 *H Test 09/13/16 02:35 09/13/16 03:49 09/13/16 06:55 09/13/16 08:12 Glucose Level 378 #H 348 H Bedside Glucose 378 H 345 H White Blood Count 8.9 Red Blood Count 2.66 L Hemoglobin 8.3 L Hematocrit 27.7 L Mean Corpuscular Volume 104.1 H Mean Corpuscular Hemoglobin 31.2 Mean Corpuscular Hemoglobin Concent 30.0 L Red Cell Distribution Width 21.2 H Platelet Count 432 H Mean Platelet Volume 9.7 Neutrophils % 59.3 Lymphocytes % 17.3 Monocytes % 13.8 H Eosinophils % 4.4 Basophils % 0.7 Nucleated Red Blood Cells % 0.3 H Neutrophils # 5.3 Lymphocytes # 1.5 Monocytes # 1.2 H Eosinophils # 0.4 Basophils # 0.1 Nucleated Red Blood Cells # 0.0 Sodium Level 132 L Potassium Level 4.8 Chloride Level 98 Carbon Dioxide Level 25 Anion Gap 14 Blood Urea Nitrogen 47 H Creatinine 4.44 #H Calcium Level 8.5 Iron Level 39 Total Iron Binding Capacity 230 L Percent Iron Saturation 17 L Total Bilirubin 0.0 L Direct Bilirubin 0.00 Indirect Bilirubin 0.0 Aspartate Amino Transf (AST/SGOT) 15 Alanine Aminotransferase (ALT/SGPT) 35 Alkaline Phosphatase 88 Total Protein 5.6 L Albumin 3.0 L Globulin 2.60 Albumin/Globulin Ratio 1.15 Test 09/13/16 12:10 Bedside Glucose 333 H Medications Medications Current Medications Ondansetron HCl (Zofran Inj) 4 mg Q6H PRN IV NAUSEA AND/OR VOMITING; Start at 19:30 Acetaminophen (Tylenol Tab) 650 mg Q6H PRN PO PAIN LEVEL 1-3 OR FEVER; Start at 19:30 Morphine Sulfate (morphine) 2 mg Q4H PRN IV SEVERE PAIN LEVEL 7-10 Last administered on 09/13/16 10:01; Admin Dose 2 MG; Start 09/09/16 at 19:30 Docusate Sodium (Colace) 100 mg Q12H PRN PO CONSTIPATION; Start 09/09/16 at 19: 30 Zolpidem Tartrate 5 mg 5 mg QHS PRN PO SLEEP Last administered on 09/12/16 23: 11; Admin Dose 5 MG; Start 09/09/16 at 19:30 Ceftriaxone Sodium (Rocephin) 50 ml @ 100 mls/hr Q24H IVPB Last administered on 09/12/16 21:35; Admin Dose 100 MLS/HR; Start 09/09/16 at 21:30 Albuterol (Ventolin Hfa) 2 puff Q4H PRN INH WHEEZING AND SOB; Start 09/09/16 at 19:30 Apixaban (Eliquis) 5 mg BID PO Last administered on 09/13/16 09:42; Admin Dose 5 MG; Start 09/09/16 at 21:00 Aspirin (Aspirin) 81 mg DAILY PO Last administered on 09/13/16 09:41; Admin Dose 81 MG; Start 09/10/16 at 09:00 Atorvastatin Calcium (Lipitor) 40 mg QHS PO Last administered on 09/12/16 21: 23; Admin Dose 40 MG; Start 09/09/16 at 21:00 Benzonatate (Tessalon) 100 mg Q6 PO Last administered on 09/13/16 12:12; Admin Dose 100 MG; Start 09/10/16 at 00:00 Cinacalcet (Sensipar) 30 mg DAILY PO Last administered on 09/13/16 09:41; Admin Dose 30 MG; Start 09/10/16 at 09:00 Diltiazem HCl (Cardizem Sr) 60 mg Q12 PO Last administered on 09/13/16 12:12; Admin Dose 60 MG; Start 09/09/16 at 21:00 Furosemide (Lasix) 80 mg DAILY PO Last administered on 09/13/16 09:42; Admin Dose 80 MG; Start 09/10/16 at 09:00 Insulin Detemir (Levemir) 90 unit QHS SC Last administered on 09/12/16 21:34; Admin Dose 90 UNIT; Start 09/09/16 at 21:00 Losartan Potassium (Cozaar) 50 mg BID PO Last administered on 09/13/16 09:42; Admin Dose 50 MG; Start 09/09/16 at 21:00 Montelukast Sodium (Singulair) 10 mg QAM PO Last administered on 09/13/16 09:41 ; Admin Dose 10 MG; Start 09/10/16 at 09:00 Pyridoxine HCl (Vitamin B6) 50 mg DAILY PO Last administered on 09/13/16 09:40 ; Admin Dose 50 MG; Start 09/10/16 at 09:00 Tiotropium [place] (Spiriva) 1 inh DAILY INH Last administered on 09/13/16 09: 41; Admin Dose 1 INH; Start 09/10/16 at 09:00 Salmeterol Xinafoate/ Fluticasone (Advair 250/50 Diskus) 1 inh BID INH Last administered on 09/13/16 09:40; Admin Dose 1 INH; Start 09/09/16 at 21:00 Pantoprazole (Protonix Tab) 40 mg DAILY@06 PO Last administered on 09/13/16 06: 55; Admin Dose 40 MG; Start 09/10/16 at 06:00 Miscellaneous Information 1 ea NOTE XX ; Start 09/09/16 at 20:30 Glucose (Glutose) 15 gm Q15M PRN PO DECREASED GLUCOSE; Start 09/09/16 at 20:30 Glucose (Glutose) 22.5 gm Q15M PRN PO DECREASED GLUCOSE; Start 09/09/16 at 20: 31 Dextrose (D50w Syringe) 25 ml Q15M PRN IV DECREASED GLUCOSE; Start 09/09/16 at 20:30 Dextrose (D50w Syringe) 50 ml Q15M PRN IV DECREASED GLUCOSE; Start 09/09/16 at 20:30 Glucagon (Glucagen) 1 mg Q15M PRN IM DECREASED GLUCOSE; Start 09/09/16 at 20:30 Glucose (Glutose) 15 gm Q15M PRN BUCCAL DECREASED GLUCOSE; Start 09/09/16 at 20 :30 Collagenase (Santyl) 1 applic DAILY TOP Last administered on 09/13/16 09:45; Admin Dose 1 APPLIC; Start 09/10/16 at 21:00 Metoprolol Succinate (Toprol Xl) 100 mg DAILY PO Last administered on 09/13/16 09:43; Admin Dose 100 MG; Start 09/13/16 at 09:00 Epoetin Ahng (Epogen (Esrd)) 10,000 units MoWeFr@17 SC ; Start 09/13/16 at 17:00 Oxycodone/ Acetaminophen (Endocet (10/ 325)) 1 tab Q6H PRN PO PAIN; Start at 11:00 Nicotine (Nicoderm 21 Mg/ 24hr) 1 patch DAILY TRANSDERM ; Start 09/13/16 at 13:00 [facility]NA [facility], [facility] September 13, 2016 13:05
[2016-09-13] MEDS: NICOTINE (21 MG/24 HR) PATCH TRANSDERM SCH (14:02)
--- NOTE | 2016-09-13 15:08 | RADRPT ---
Vent Rate: 112 bpm RR Interval: 0 msec HI Interval: 0 msec QRS Duration: 82 msec QT Interval: 316 msec QTC Interval: 431 msec P-R-[place]: 85 - 162 - 0 degrees Atrial flutter with variable AV block Right axis deviation Pulmonary disease pattern Septal infarct , age undetermined Marked ST abnormality, possible lateral subendocardial injury Abnormal ECG Electronically Signed By: Issa Bueno [id number]
[2016-09-13] MEDS: EPOETIN 10000 UNITS/1 ML INJ (ESRD) SC SCH (17:55)
[2016-09-13] MEDS: ATORVASTATIN 40 MG TAB PO SCH (21:39)
[2016-09-13] MEDS: INSULIN DETEMIR [LEVEMIR] 3ML CART SC SCH (21:50)
[2016-09-13] MEDS: CEFTRIAXONE 1 GM/50 ML (PMX) 50 ML IVPB SCH (22:10)
[2016-09-13] MEDS: OXYCODONE/ACETAMINOPHEN (10/325) TAB PO PRN (22:18)
[2016-09-14] VITALS (19 sets, daily range): BP systolic 94–144; BP diastolic 51–88; PULSE 90–129; RESP 18–22
[2016-09-14] MEDS: ZOLPIDEM 5 MG TAB PO PRN ×2 (02:18→22:16)
[2016-09-14] MEDS: BENZONATATE 100 MG CAP PO SCH ×4 (06:00→23:10)
[2016-09-14] MEDS: METOCLOPRAMIDE 5 MG TAB PO SCH ×3 (06:00→17:39)
[2016-09-14] MEDS: PANTOPRAZOLE (EC) 40 MG TAB PO SCH (06:01)
[2016-09-14] MEDS: OXYCODONE/ACETAMINOPHEN (10/325) TAB PO PRN ×3 (06:15→23:10)
[2016-09-14 06:44] LABS: ADD SCAN DIFF NO
[2016-09-14 06:48] LABS: BASOPHIL # 0.1 10^3/ul (0.0-0.1); BASOPHILS % 0.6 % (0.0-2.0); EOSINOPHILS # 0.6 10^3/ul (0.0-0.5); EOSINOPHILS % 5.2 % (0.0-7.0); HEMATOCRIT 26.4 % (37.0-47.0); MEAN CORPUSCULAR HEMOGLOBIN 31.6 pg (29.0-33.0); MEAN CORPUSCULAR HGB CONC 30.3 g/dl (32.0-37.0); MEAN CORPUSCULAR VOLUME 104.3 fl (82.0-101.0); MEAN PLATELET VOLUME 9.9 fl (7.4-10.4); MONOCYTE # 1.4 10^3/ul (0.3-0.9); MONOCYTES % 12.4 % (0.0-11.0); NEUTROPHILS % 60.7 % (39.0-77.0); NUCLEATED RED BLOOD CELLS% 0.2 /100WBC (0.0-0.0); PLATELET COUNT 387 10^3/UL (140-415); RED BLOOD COUNT 2.53 10^6/ul (4.20-5.40); RED CELL DISTRIBUTION WIDTH 21.2 % (11.5-14.5); WHITE BLOOD COUNT 11.5 10^3/ul (4.8-10.8)
[2016-09-14 07:18] LABS: POTASSIUM 5.3 mmol/L (3.5-5.1)
[2016-09-14 07:21] LABS: CREATININE 5.43 mg/dl (0.44-1.00)
[2016-09-14 07:22] LABS: PHOSPHORUS 3.9 mg/dl (2.5-4.9)
[2016-09-14] MEDS: PYRIDOXINE 50 MG TAB PO SCH (08:22)
[2016-09-14] MEDS: SALMETEROL/FLUTICASONE 250/50 INHA INH SCH ×2 (08:22→21:21)
[2016-09-14] MEDS: ASPIRIN 81 MG TAB PO SCH (08:22)
[2016-09-14] MEDS: CALCIUM ACETATE 667 MG CAP PO SCH ×3 (08:22→17:39)
[2016-09-14] MEDS: MONTELUKAST 10 MG TAB PO SCH (08:22)
[2016-09-14] MEDS: CINACALCET 30 MG TAB PO SCH (08:22)
[2016-09-14] MEDS: FUROSEMIDE 40 MG TAB PO SCH (08:23)
[2016-09-14] MEDS: METOPROLOL (XL) 50 MG TAB PO SCH (08:23)
[2016-09-14] MEDS: LOSARTAN 50 MG TAB PO SCH ×2 (08:24→21:20)
[2016-09-14] MEDS: NICOTINE (21 MG/24 HR) PATCH TRANSDERM SCH (08:24)
[2016-09-14] MEDS: INSULIN ASPART [NOVOLOG] 3 ML PEN SC SCH ×7 (08:27→21:40)
[2016-09-14] MEDS: TIOTROPIUM 18 MCG CAPSULE INHA DEV INH SCH (10:40)
[2016-09-14] MEDS: DILTIAZEM (SR) 60 MG CAP PO SCH ×2 (10:40→21:21)
[2016-09-14] MEDS: APIXABAN 5 MG TABLET PO SCH ×2 (10:40→21:19)
--- NOTE | 2016-09-14 13:06 | PN ---
Date/Time of Note Date/Time of Note DATE: 09/14/16 TIME: 13:05 Assessment/Plan VTE Prophylaxis VTE Prophylaxis Intervention: other Lines/Catheters IV Catheter Type (from Nrs): Saline Lock Assessment/Plan Chief Complaint/Hosp Course Assessment 1. Sepsis secondary to urinary tract infection and/or cellulitis 2. Left thigh chronic wound, seen by vascular surgery pending further surgery in a.m. 3. History of atrial fibrillation, anticoagulation to be held prior to surgery per vascular surgery recommendations 4. End-stage renal disease 5. Anemia of chronic disease and end-stage renal disease 6. Hypertension 7. Diabetes 8. Dyslipidemia Plan 1. Continue current antibiotics 2. Continue vascular surgery recommendations 3. Discussed with vascular surgery okay to continue Eliquis 4. Hemodialysis per nephrology 5. Monitor H&H 6. Continue current glycemic management 7. Continue statin Disposition Patient may require residential following surgeries. Problems: Subjective 24 Hr Interval Summary Free Text/Dictation Patient comfortable this morning no new events Exam/Review of Systems Vital Signs Vitals Vital Signs Date Time Temp Pulse Resp B/P Pulse Ox O2 Delivery O2 Flow Rate FiO2 09/14/16 12:45 110 09/14/16 12:20 97.9 18 125/66 94 09/12/16 10:00 Nasal Cannula 2.0 Intake and Output 09/13/16 09/13/16 09/14/16 15:00 23:00 07:00 Intake Total 1020 ml 110 ml Balance 1020 ml 110 ml Exam GENERAL: Well-nourished well-developed lady comfortable at rest no acute distress VITAL SIGNS: per chart NECK: Supple. No JVD or lymphadenopathy. CARDIAC EXAM: S1, S2. No added sounds or murmurs. CHEST: clear bilaterally, No added sounds, rales or wheezes ABDOMEN: Soft, nontender. No guarding or rebound. EXTREMITIES: No cyanosis, clubbing or edema. NEUROLOGIC: Generalized weakness. No focal deficits. Results Result Diagram: 09/14/16 0556 09/14/16 0556 Results 24 hrs Laboratory Tests Test 09/13/16 17:02 09/13/16 21:36 09/14/16 02:13 09/14/16 05:56 Bedside Glucose 289 H 288 H 339 H White Blood Count 11.5 #H Red Blood Count 2.53 L Hemoglobin 8.0 L Hematocrit 26.4 L Mean Corpuscular Volume 104.3 H Mean Corpuscular Hemoglobin 31.6 Mean Corpuscular Hemoglobin Concent 30.3 L Red Cell Distribution Width 21.2 H Platelet Count 387 Mean Platelet Volume 9.9 Neutrophils % 60.7 Lymphocytes % 17.0 Monocytes % 12.4 H Eosinophils % 5.2 Basophils % 0.6 Nucleated Red Blood Cells % 0.2 H Neutrophils # 7.0 Lymphocytes # 2.0 Monocytes # 1.4 H Eosinophils # 0.6 H Basophils # 0.1 Nucleated Red Blood Cells # 0.0 Sodium Level 134 L Potassium Level 5.3 H Chloride Level 96 L Carbon Dioxide Level 26 Anion Gap 17 H Blood Urea Nitrogen 61 H Creatinine 5.43 H Glucose Level 212 # Calcium Level 9.0 Phosphorus Level 3.9 Random Vancomycin Level 15.5 Test 09/14/16 07:49 09/14/16 11:41 Bedside Glucose 202 241 H Medications Medications Current Medications Ondansetron HCl (Zofran Inj) 4 mg Q6H PRN IV NAUSEA AND/OR VOMITING; Start at 19:30 Acetaminophen (Tylenol Tab) 650 mg Q6H PRN PO PAIN LEVEL 1-3 OR FEVER; Start at 19:30 Morphine Sulfate (morphine) 2 mg Q4H PRN IV SEVERE PAIN LEVEL 7-10 Last administered on 09/13/16 10:01; Admin Dose 2 MG; Start 09/09/16 at 19:30 Docusate Sodium (Colace) 100 mg Q12H PRN PO CONSTIPATION; Start 09/09/16 at 19: 30 Zolpidem Tartrate 5 mg 5 mg QHS PRN PO SLEEP Last administered on 09/14/16 02: 18; Admin Dose 5 MG; Start 09/09/16 at 19:30 Ceftriaxone Sodium (Rocephin) 50 ml @ 100 mls/hr Q24H IVPB Last administered on 09/13/16 22:10; Admin Dose 100 MLS/HR; Start 09/09/16 at 21:30 Albuterol (Ventolin Hfa) 2 puff Q4H PRN INH WHEEZING AND SOB; Start 09/09/16 at 19:30 Apixaban (Eliquis) 5 mg BID PO Last administered on 09/14/16 10:40; Admin Dose 5 MG; Start 09/09/16 at 21:00 Aspirin (Aspirin) 81 mg DAILY PO Last administered on 09/14/16 08:22; Admin Dose 81 MG; Start 09/10/16 at 09:00 Atorvastatin Calcium (Lipitor) 40 mg QHS PO Last administered on 09/13/16 21:39 ; Admin Dose 40 MG; Start 09/09/16 at 21:00 Benzonatate (Tessalon) 100 mg Q6 PO Last administered on 09/14/16 12:20; Admin Dose 100 MG; Start 09/10/16 at 00:00 Cinacalcet (Sensipar) 30 mg DAILY PO Last administered on 09/14/16 08:22; Admin Dose 30 MG; Start 09/10/16 at 09:00 Diltiazem HCl (Cardizem Sr) 60 mg Q12 PO Last administered on 09/14/16 10:40; Admin Dose 60 MG; Start 09/09/16 at 21:00 Furosemide (Lasix) 80 mg DAILY PO Last administered on 09/14/16 08:23; Admin Dose 80 MG; Start 09/10/16 at 09:00 Insulin Detemir (Levemir) 90 unit QHS SC Last administered on 09/13/16 21:50; Admin Dose 90 UNIT; Start 09/09/16 at 21:00 Losartan Potassium (Cozaar) 50 mg BID PO Last administered on 09/14/16 08:24; Admin Dose 50 MG; Start 09/09/16 at 21:00 Montelukast Sodium (Singulair) 10 mg QAM PO Last administered on 09/14/16 08:22 ; Admin Dose 10 MG; Start 09/10/16 at 09:00 Pyridoxine HCl (Vitamin B6) 50 mg DAILY PO Last administered on 09/14/16 08:22 ; Admin Dose 50 MG; Start 09/10/16 at 09:00 Tiotropium [place] (Spiriva) 1 inh DAILY INH Last administered on 09/14/16 10: 40; Admin Dose 1 INH; Start 09/10/16 at 09:00 Salmeterol Xinafoate/ Fluticasone (Advair 250/50 Diskus) 1 inh BID INH Last administered on 09/14/16 08:22; Admin Dose 1 INH; Start 09/09/16 at 21:00 Pantoprazole (Protonix Tab) 40 mg DAILY@06 PO Last administered on 09/14/16 06: 01; Admin Dose 40 MG; Start 09/10/16 at 06:00 Miscellaneous Information 1 ea NOTE XX ; Start 09/09/16 at 20:30 Glucose (Glutose) 15 gm Q15M PRN PO DECREASED GLUCOSE; Start 09/09/16 at 20:30 Glucose (Glutose) 22.5 gm Q15M PRN PO DECREASED GLUCOSE; Start 09/09/16 at 20: 31 Dextrose (D50w Syringe) 25 ml Q15M PRN IV DECREASED GLUCOSE; Start 09/09/16 at 20:30 Dextrose (D50w Syringe) 50 ml Q15M PRN IV DECREASED GLUCOSE; Start 09/09/16 at 20:30 Glucagon (Glucagen) 1 mg Q15M PRN IM DECREASED GLUCOSE; Start 09/09/16 at 20:30 Glucose (Glutose) 15 gm Q15M PRN BUCCAL DECREASED GLUCOSE; Start 09/09/16 at 20 :30 Collagenase (Santyl) 1 applic DAILY TOP Last administered on 09/13/16 09:45; Admin Dose 1 APPLIC; Start 09/10/16 at 21:00 Metoprolol Succinate (Toprol Xl) 100 mg DAILY PO Last administered on 09/14/16 08:23; Admin Dose 100 MG; Start 09/13/16 at 09:00 Epoetin [place] (Epogen (Esrd)) 10,000 units MoWeFr@17 SC Last administered on 09/13 17:55; Admin Dose 10,000 UNITS; Start 09/13/16 at 17:00 Oxycodone/ Acetaminophen (Endocet (10/ 325)) 1 tab Q6H PRN PO PAIN Last administered on 09/14/16 06:15; Admin Dose 1 TAB; Start 09/13/16 at 11:00 Nicotine (Nicoderm 21 Mg/ 24hr) 1 patch DAILY TRANSDERM Last administered on 08:24; Admin Dose 1 PATCH; Start 09/13/16 at 13:00 REY [facility]ARTAGENA MD, [facility] September 14, 2016 13:06
[2016-09-14] MEDS: COLLAGENASE 30 GM TUBE TOP SCH (14:48)
[2016-09-14] MEDS: VANCOMYCIN 1 GM in NS 250 ML IVPB SCH (20:00)
[2016-09-14] MEDS: ATORVASTATIN 40 MG TAB PO SCH (21:19)
[2016-09-14] MEDS: CEFTRIAXONE 1 GM/50 ML (PMX) 50 ML IVPB SCH (21:19)
[2016-09-14] MEDS: morphine 2 MG INJ IV PRN (21:24)
[2016-09-14] MEDS: INSULIN DETEMIR [LEVEMIR] 3ML CART SC SCH (21:41)
[2016-09-14] MEDS ORDERED: INSULIN ASPART [NOVOLOG] 3 ML PEN SC ONE (22:00)
[2016-09-15] VITALS (20 sets, daily range): BP systolic 90–127; BP diastolic 1–73; PULSE 68–133; RESP 7–29
[2016-09-15] MEDS: VANCOMYCIN 1 GM in NS 250 ML IVPB SCH
[2016-09-15] MEDS ORDERED: INSULIN ASPART [NOVOLOG] 3 ML PEN SC ONE ×2 (01:30→03:00)
[2016-09-15] MEDS: METOCLOPRAMIDE 5 MG TAB PO SCH ×3 (06:37→17:22)
[2016-09-15] MEDS: OXYCODONE/ACETAMINOPHEN (10/325) TAB PO PRN ×2 (06:37→17:22)
[2016-09-15] MEDS: BENZONATATE 100 MG CAP PO SCH ×3 (06:37→17:22)
[2016-09-15] MEDS: PANTOPRAZOLE (EC) 40 MG TAB PO SCH (06:37)
[2016-09-15] MEDS: INSULIN ASPART [NOVOLOG] 3 ML PEN SC SCH ×7 (08:00→21:03)
[2016-09-15] MEDS: CALCIUM ACETATE 667 MG CAP PO SCH ×3 (08:00→17:22)
[2016-09-15 08:08] LABS: ADD SCAN DIFF NO
[2016-09-15 08:24] LABS: ABNORMAL IP MESSAGE 1; BASOPHIL # 0.1 10^3/ul (0.0-0.1); BASOPHILS % 0.9 % (0.0-2.0); EOSINOPHILS # 0.5 10^3/ul (0.0-0.5); EOSINOPHILS % 4.9 % (0.0-7.0); HEMATOCRIT 27.3 % (37.0-47.0); HEMOGLOBIN 8.3 g/dl (12.0-16.0); LYMPHOCYTES # 1.8 10^3/ul (0.8-2.9); LYMPHOCYTES % 17.6 % (15.0-51.0); MEAN CORPUSCULAR HGB CONC 30.4 g/dl (32.0-37.0); MEAN CORPUSCULAR VOLUME 105.4 fl (82.0-101.0); MEAN PLATELET VOLUME 9.8 fl (7.4-10.4); MONOCYTE # 1.6 10^3/ul (0.3-0.9); MONOCYTES % 15.1 % (0.0-11.0); NEUTROPHIL # 6.2 10^3/ul (1.6-7.5); NEUTROPHILS % 59.2 % (39.0-77.0); PLATELET COUNT 401 10^3/UL (140-415); RED BLOOD COUNT 2.59 10^6/ul (4.20-5.40); RED CELL DISTRIBUTION WIDTH 21.2 % (11.5-14.5); WHITE BLOOD COUNT 10.4 10^3/ul (4.8-10.8)
[2016-09-15] MEDS: PYRIDOXINE 50 MG TAB PO SCH (08:29)
[2016-09-15] MEDS: ASPIRIN 81 MG TAB PO SCH (08:29)
[2016-09-15] MEDS: TIOTROPIUM 18 MCG CAPSULE INHA DEV INH SCH (08:29)
[2016-09-15] MEDS: SALMETEROL/FLUTICASONE 250/50 INHA INH SCH ×2 (08:29→20:54)
[2016-09-15] MEDS: CINACALCET 30 MG TAB PO SCH (08:29)
[2016-09-15] MEDS: APIXABAN 5 MG TABLET PO SCH ×2 (08:29→20:54)
[2016-09-15] MEDS: MONTELUKAST 10 MG TAB PO SCH (08:29)
[2016-09-15 08:34] LABS: POTASSIUM 4.3 mmol/L (3.5-5.1)
[2016-09-15 08:37] LABS: CREATININE 4.18 mg/dl (0.44-1.00)
[2016-09-15 08:38] LABS: CALCIUM 8.8 mg/dl (8.4-10.2); MAGNESIUM 2.3 mg/dl (1.7-2.5); PHOSPHORUS 3.3 mg/dl (2.5-4.9)
[2016-09-15] MEDS: LOSARTAN 50 MG TAB PO SCH ×2 (08:45→20:55)
[2016-09-15] MEDS: FUROSEMIDE 40 MG TAB PO SCH (08:45)
[2016-09-15] MEDS: METOPROLOL (XL) 50 MG TAB PO SCH ×2 (08:46→10:20)
[2016-09-15] MEDS ORDERED: DEXTROSE 5%-0.45% NACL 1,000 ML IV SCH ×2 (09:00)
[2016-09-15] MEDS: NICOTINE (21 MG/24 HR) PATCH TRANSDERM SCH (09:59)
[2016-09-15] MEDS: COLLAGENASE 30 GM TUBE TOP SCH (09:59)
[2016-09-15] MEDS: DILTIAZEM (SR) 60 MG CAP PO SCH ×2 (10:20→20:55)
--- NOTE | 2016-09-15 10:59 | CONS ---
Date/Time of Note Date/Time of Note DATE: 09/15/16 TIME: 10:58 Assessment/Plan Assessment/Plan Chief Complaint/Hosp Course - ESRD on Hemodialysis - Anemia of chronic Disease - Hypertension - Secondary hyperparathyroidism - Hyperphosphatemia - Sepsis due to UTI - Chronic thigh infection - Smoker - CAD PLAN: She is on HD Tuesday - - Tuesday Will schedule dialysis next Cont. EPOGEN Continue with Sensipar & Her Phos. Binders Nicotine patches ordered Abx per Primary service Problems: Consultation Date/Type/Reason Admit Date/Time Sep 09, 2016 at 17:15 Initial Consult Date 09/13/16 Type of Consultation: NEPHROLOGY Reason for Consultation _ ESRD on HD 24 HR Interval Summary Constitutional: improved Exam/Review of Systems Vital Signs Vitals Vital Signs Date Time Temp Pulse Resp B/P Pulse Ox O2 Delivery O2 Flow Rate FiO2 09/15/16 08:58 72 106/50 09/15/16 08:22 98.1 18 99 09/12/16 10:00 Nasal Cannula 2.0 Intake and Output 09/14/16 09/14/16 09/15/16 15:00 23:00 07:00 Intake Total 1170 ml 910 ml Output Total 3400 ml 325 ml Balance -2230 ml 585 ml Exam Constitutional: alert, oriented Respiratory: crackles/rales Cardiovascular: edema, regular rate and rhythm, systolic murmur Gastrointestinal: soft Results Result Diagram: 09/15/16 0701 09/15/16 0701 Results 24 hrs Laboratory Tests Test 09/14/16 11:41 09/14/16 17:19 09/14/16 21:32 09/14/16 23:14 Bedside Glucose 241 H 313 H 401 *H 501 *H Test 09/14/16 23:35 09/15/16 02:25 09/15/16 04:20 09/15/16 07:01 Glucose Level 372 #H 62 #L Bedside Glucose 260 H 141 White Blood Count 10.4 Red Blood Count 2.59 L Hemoglobin 8.3 L Hematocrit 27.3 L Mean Corpuscular Volume 105.4 H Mean Corpuscular Hemoglobin 32.0 Mean Corpuscular Hemoglobin Concent 30.4 L Red Cell Distribution Width 21.2 H Platelet Count 401 Mean Platelet Volume 9.8 Neutrophils % 59.2 Lymphocytes % 17.6 Monocytes % 15.1 H Eosinophils % 4.9 Basophils % 0.9 Nucleated Red Blood Cells % 0.0 Neutrophils # 6.2 Lymphocytes # 1.8 Monocytes # 1.6 H Eosinophils # 0.5 Basophils # 0.1 Nucleated Red Blood Cells # 0.0 Sodium Level 138 Potassium Level 4.3 Chloride Level 99 Carbon Dioxide Level 27 Anion Gap 16 Blood Urea Nitrogen 45 #H Creatinine 4.18 #H Calcium Level 8.8 Phosphorus Level 3.3 Magnesium Level 2.3 Test 09/15/16 07:59 09/15/16 08:53 09/15/16 10:23 Bedside Glucose 65 L 153 127 Medications Medications Current Medications Ondansetron HCl (Zofran Inj) 4 mg Q6H PRN IV NAUSEA AND/OR VOMITING; Start at 19:30 Acetaminophen (Tylenol Tab) 650 mg Q6H PRN PO PAIN LEVEL 1-3 OR FEVER; Start at 19:30 Morphine Sulfate (morphine) 2 mg Q4H PRN IV SEVERE PAIN LEVEL 7-10 Last administered on 09/14/16 21:24; Admin Dose 2 MG; Start 09/09/16 at 19:30 Docusate Sodium (Colace) 100 mg Q12H PRN PO CONSTIPATION; Start 09/09/16 at 19: 30 Zolpidem Tartrate 5 mg 5 mg QHS PRN PO SLEEP Last administered on 09/14/16 22: 16; Admin Dose 5 MG; Start 09/09/16 at 19:30 Ceftriaxone Sodium (Rocephin) 50 ml @ 100 mls/hr Q24H IVPB Last administered on 09/14/16 21:19; Admin Dose 100 MLS/HR; Start 09/09/16 at 21:30 Albuterol (Ventolin Hfa) 2 puff Q4H PRN INH WHEEZING AND SOB; Start 09/09/16 at 19:30 Apixaban (Eliquis) 5 mg BID PO Last administered on 09/15/16 08:29; Admin Dose 5 MG; Start 09/09/16 at 21:00 Aspirin (Aspirin) 81 mg DAILY PO Last administered on 09/15/16 08:29; Admin Dose 81 MG; Start 09/10/16 at 09:00 Atorvastatin Calcium (Lipitor) 40 mg QHS PO Last administered on 09/14/16 21:19 ; Admin Dose 40 MG; Start 09/09/16 at 21:00 Benzonatate (Tessalon) 100 mg Q6 PO Last administered on 09/15/16 06:37; Admin Dose 100 MG; Start 09/10/16 at 00:00 Cinacalcet (Sensipar) 30 mg DAILY PO Last administered on 09/15/16 08:29; Admin Dose 30 MG; Start 09/10/16 at 09:00 Diltiazem HCl (Cardizem Sr) 60 mg Q12 PO Last administered on 09/15/16 10:20; Admin Dose 60 MG; Start 09/09/16 at 21:00 Furosemide (Lasix) 80 mg DAILY PO Last administered on 09/14/16 08:23; Admin Dose 80 MG; Start 09/10/16 at 09:00 Insulin Detemir (Levemir) 90 unit QHS SC Last administered on 09/14/16 21:41; Admin Dose 90 UNIT; Start 09/09/16 at 21:00 Losartan Potassium (Cozaar) 50 mg BID PO Last administered on 09/14/16 21:20; Admin Dose 50 MG; Start 09/09/16 at 21:00 Montelukast Sodium (Singulair) 10 mg QAM PO Last administered on 09/15/16 08:29 ; Admin Dose 10 MG; Start 09/10/16 at 09:00 Pyridoxine HCl (Vitamin B6) 50 mg DAILY PO Last administered on 09/15/16 08:29 ; Admin Dose 50 MG; Start 09/10/16 at 09:00 Tiotropium [place] (Spiriva) 1 inh DAILY INH Last administered on 09/15/16 08: 29; Admin Dose 1 INH; Start 09/10/16 at 09:00 Salmeterol Xinafoate/ Fluticasone (Advair 250/50 Diskus) 1 inh BID INH Last administered on 09/15/16 08:29; Admin Dose 1 INH; Start 09/09/16 at 21:00 Pantoprazole (Protonix Tab) 40 mg DAILY@06 PO Last administered on 09/15/16 06: 37; Admin Dose 40 MG; Start 09/10/16 at 06:00 Miscellaneous Information 1 ea NOTE XX ; Start 09/09/16 at 20:30 Glucose (Glutose) 15 gm Q15M PRN PO DECREASED GLUCOSE; Start 09/09/16 at 20:30 Glucose (Glutose) 22.5 gm Q15M PRN PO DECREASED GLUCOSE; Start 09/09/16 at 20: 31 Dextrose (D50w Syringe) 25 ml Q15M PRN IV DECREASED GLUCOSE Last administered on 09/15/16 08:20; Admin Dose 25 ML; Start 09/09/16 at 20:30 Dextrose (D50w Syringe) 50 ml Q15M PRN IV DECREASED GLUCOSE; Start 09/09/16 at 20:30 Glucagon (Glucagen) 1 mg Q15M PRN IM DECREASED GLUCOSE; Start 09/09/16 at 20:30 Glucose (Glutose) 15 gm Q15M PRN BUCCAL DECREASED GLUCOSE; Start 09/09/16 at 20 :30 Collagenase (Santyl) 1 applic DAILY TOP Last administered on 09/15/16 09:59; Admin Dose 1 APPLIC; Start 09/10/16 at 21:00 Metoprolol Succinate (Toprol Xl) 100 mg DAILY PO Last administered on 09/15/16 10:20; Admin Dose 100 MG; Start 09/13/16 at 09:00 Epoetin [place] (Epogen (Esrd)) 10,000 units MoWeFr@17 SC Last administered on 09/13 17:55; Admin Dose 10,000 UNITS; Start 09/13/16 at 17:00 Oxycodone/ Acetaminophen (Endocet (10/ 325)) 1 tab Q6H PRN PO PAIN Last administered on 09/15/16 06:37; Admin Dose 1 TAB; Start 09/13/16 at 11:00 Nicotine 1 patch 1 patch DAILY TRANSDERM Last administered on 09/15/16 09:59; Admin Dose 1 PATCH; Start 09/13/16 at 13:00 Dextrose/Sodium Chloride 1,000 ml @ 75 mls/hr [id number] IV ; Start 09/15/16 at 13: 00 Dextrose/Sodium Chloride (D5-1/2ns) 1,000 ml @ 100 mls/hr Q10H IV Last administered on 09/15/16 08:46; Admin Dose 100 MLS/HR; Start 09/15/16 at 09:00; Stop 09/15/16 at 13:00 BECKY GAMBLE MD September 15, 2016 10:59
[2016-09-15] MEDS ORDERED: FENTAnyl 50 MCG/ML VIAL ONE (12:35)
[2016-09-15] MEDS ORDERED: MIDAZOLAM 1 MG/ML 2 ML INJ ONE (12:36)
--- NOTE | 2016-09-15 12:44 | PN ---
Date/Time of Note Date/Time of Note DATE: 09/15/16 TIME: 12:43 Assessment/Plan VTE Prophylaxis VTE Prophylaxis Intervention: other Lines/Catheters IV Catheter Type (from Nrs): Saline Lock Assessment/Plan Chief Complaint/Hosp Course Assessment 1. Sepsis secondary to urinary tract infection and/or cellulitis, clinically improving 2. Left thigh chronic wound, seen by vascular surgery pending further surgery scheduled for today 3. History of atrial fibrillation, anticoagulation to be held prior to surgery per vascular surgery recommendations 4. End-stage renal disease 5. Anemia of chronic disease and end-stage renal disease 6. Hypertension 7. Diabetes 8. Dyslipidemia Plan 1. Continue current antibiotics will consider de-escalation of antibiotics soon 2. Continue vascular surgery recommendations 3. Discussed with vascular surgery okay to continue Eliquis 4. Hemodialysis per nephrology 5. Monitor H&H 6. Continue current glycemic management 7. Continue statin Disposition Patient may require long-term following surgeries. Problems: Subjective 24 Hr Interval Summary Free Text/Dictation Patient pending surgery today No events overnight remained stable Continues hemodialysis per nephrology schedule Exam/Review of Systems Vital Signs Vitals Vital Signs Date Time Temp Pulse Resp B/P Pulse Ox O2 Delivery O2 Flow Rate FiO2 09/15/16 12:32 82 09/15/16 08:58 106/50 09/15/16 08:22 98.1 18 99 09/12/16 10:00 Nasal Cannula 2.0 Intake and Output 09/14/16 09/14/16 09/15/16 15:00 23:00 07:00 Intake Total 1170 ml 910 ml Output Total 3400 ml 325 ml Balance -2230 ml 585 ml Exam GENERAL: Well-nourished well-developed lady comfortable at rest no acute distress VITAL SIGNS: per chart NECK: Supple. No JVD or lymphadenopathy. CARDIAC EXAM: S1, S2. No added sounds or murmurs. CHEST: clear bilaterally, No added sounds, rales or wheezes ABDOMEN: Soft, nontender. No guarding or rebound. EXTREMITIES: No cyanosis, clubbing or edema. NEUROLOGIC: Generalized weakness. No focal deficits. Results Result Diagram: 09/15/16 0701 09/15/16 0701 Results 24 hrs Laboratory Tests Test 09/14/16 17:19 09/14/16 21:32 09/14/16 23:14 09/14/16 23:35 Bedside Glucose 313 H 401 *H 501 *H Glucose Level 372 #H Test 09/15/16 02:25 09/15/16 04:20 09/15/16 07:01 09/15/16 07:59 Bedside Glucose 260 H 141 65 L White Blood Count 10.4 Red Blood Count 2.59 L Hemoglobin 8.3 L Hematocrit 27.3 L Mean Corpuscular Volume 105.4 H Mean Corpuscular Hemoglobin 32.0 Mean Corpuscular Hemoglobin Concent 30.4 L Red Cell Distribution Width 21.2 H Platelet Count 401 Mean Platelet Volume 9.8 Neutrophils % 59.2 Lymphocytes % 17.6 Monocytes % 15.1 H Eosinophils % 4.9 Basophils % 0.9 Nucleated Red Blood Cells % 0.0 Neutrophils # 6.2 Lymphocytes # 1.8 Monocytes # 1.6 H Eosinophils # 0.5 Basophils # 0.1 Nucleated Red Blood Cells # 0.0 Sodium Level 138 Potassium Level 4.3 Chloride Level 99 Carbon Dioxide Level 27 Anion Gap 16 Blood Urea Nitrogen 45 #H Creatinine 4.18 #H Glucose Level 62 #L Calcium Level 8.8 Phosphorus Level 3.3 Magnesium Level 2.3 Test 09/15/16 08:53 09/15/16 10:23 Bedside Glucose 153 127 Medications Medications Current Medications Ondansetron HCl (Zofran Inj) 4 mg Q6H PRN IV NAUSEA AND/OR VOMITING; Start at 19:30 Acetaminophen (Tylenol Tab) 650 mg Q6H PRN PO PAIN LEVEL 1-3 OR FEVER; Start at 19:30 Morphine Sulfate (morphine) 2 mg Q4H PRN IV SEVERE PAIN LEVEL 7-10 Last administered on 09/14/16 21:24; Admin Dose 2 MG; Start 09/09/16 at 19:30 Docusate Sodium (Colace) 100 mg Q12H PRN PO CONSTIPATION; Start 09/09/16 at 19: 30 Zolpidem Tartrate 5 mg 5 mg QHS PRN PO SLEEP Last administered on 09/14/16 22: 16; Admin Dose 5 MG; Start 09/09/16 at 19:30 Ceftriaxone Sodium (Rocephin) 50 ml @ 100 mls/hr Q24H IVPB Last administered on 09/14/16 21:19; Admin Dose 100 MLS/HR; Start 09/09/16 at 21:30 Albuterol (Ventolin Hfa) 2 puff Q4H PRN INH WHEEZING AND SOB; Start 09/09/16 at 19:30 Apixaban (Eliquis) 5 mg BID PO Last administered on 09/15/16 08:29; Admin Dose 5 MG; Start 09/09/16 at 21:00 Aspirin (Aspirin) 81 mg DAILY PO Last administered on 09/15/16 08:29; Admin Dose 81 MG; Start 09/10/16 at 09:00 Atorvastatin Calcium (Lipitor) 40 mg QHS PO Last administered on 09/14/16 21:19 ; Admin Dose 40 MG; Start 09/09/16 at 21:00 Benzonatate (Tessalon) 100 mg Q6 PO Last administered on 09/15/16 06:37; Admin Dose 100 MG; Start 09/10/16 at 00:00 Cinacalcet (Sensipar) 30 mg DAILY PO Last administered on 09/15/16 08:29; Admin Dose 30 MG; Start 09/10/16 at 09:00 Diltiazem HCl (Cardizem Sr) 60 mg Q12 PO Last administered on 09/15/16 10:20; Admin Dose 60 MG; Start 09/09/16 at 21:00 Furosemide (Lasix) 80 mg DAILY PO Last administered on 09/14/16 08:23; Admin Dose 80 MG; Start 09/10/16 at 09:00 Insulin Detemir (Levemir) 90 unit QHS SC Last administered on 09/14/16 21:41; Admin Dose 90 UNIT; Start 09/09/16 at 21:00 Losartan Potassium (Cozaar) 50 mg BID PO Last administered on 09/14/16 21:20; Admin Dose 50 MG; Start 09/09/16 at 21:00 Montelukast Sodium (Singulair) 10 mg QAM PO Last administered on 09/15/16 08:29 ; Admin Dose 10 MG; Start 09/10/16 at 09:00 Pyridoxine HCl (Vitamin B6) 50 mg DAILY PO Last administered on 09/15/16 08:29 ; Admin Dose 50 MG; Start 09/10/16 at 09:00 Tiotropium [place] (Spiriva) 1 inh DAILY INH Last administered on 09/15/16 08: 29; Admin Dose 1 INH; Start 09/10/16 at 09:00 Salmeterol Xinafoate/ Fluticasone (Advair 250/50 Diskus) 1 inh BID INH Last administered on 09/15/16 08:29; Admin Dose 1 INH; Start 09/09/16 at 21:00 Pantoprazole (Protonix Tab) 40 mg DAILY@06 PO Last administered on 09/15/16 06: 37; Admin Dose 40 MG; Start 09/10/16 at 06:00 Miscellaneous Information 1 ea NOTE XX ; Start 09/09/16 at 20:30 Glucose (Glutose) 15 gm Q15M PRN PO DECREASED GLUCOSE; Start 09/09/16 at 20:30 Glucose (Glutose) 22.5 gm Q15M PRN PO DECREASED GLUCOSE; Start 09/09/16 at 20: 31 Dextrose (D50w Syringe) 25 ml Q15M PRN IV DECREASED GLUCOSE Last administered on 09/15/16 08:20; Admin Dose 25 ML; Start 09/09/16 at 20:30 Dextrose (D50w Syringe) 50 ml Q15M PRN IV DECREASED GLUCOSE; Start 09/09/16 at 20:30 Glucagon (Glucagen) 1 mg Q15M PRN IM DECREASED GLUCOSE; Start 09/09/16 at 20:30 Glucose (Glutose) 15 gm Q15M PRN BUCCAL DECREASED GLUCOSE; Start 09/09/16 at 20 :30 Collagenase (Santyl) 1 applic DAILY TOP Last administered on 09/15/16 09:59; Admin Dose 1 APPLIC; Start 09/10/16 at 21:00 Metoprolol Succinate (Toprol Xl) 100 mg DAILY PO Last administered on 09/15/16 10:20; Admin Dose 100 MG; Start 09/13/16 at 09:00 Epoetin Hang (Epogen (Esrd)) 10,000 units MoWeFr@17 SC Last administered on 09/13 17:55; Admin Dose 10,000 UNITS; Start 09/13/16 at 17:00 Oxycodone/ Acetaminophen (Endocet (10/ 325)) 1 tab Q6H PRN PO PAIN Last administered on 09/15/16 06:37; Admin Dose 1 TAB; Start 09/13/16 at 11:00 Nicotine 1 patch 1 patch DAILY TRANSDERM Last administered on 09/15/16 09:59; Admin Dose 1 PATCH; Start 09/13/16 at 13:00 Dextrose/Sodium Chloride 1,000 ml @ 75 mls/hr [id number] IV ; Start 09/15/16 at 13: 00 Dextrose/Sodium Chloride (D5-1/2ns) 1,000 ml @ 100 mls/hr Q10H IV Last administered on 09/15/16 08:46; Admin Dose 100 MLS/HR; Start 09/15/16 at 09:00; Stop 09/15/16 at 13:00 RE[facility]AGENA MD, [facility] September 15, 2016 12:44
[2016-09-15] MEDS ORDERED: FENTAnyl 50 MCG/ML VIAL IV PRN ×2 (13:00)
[2016-09-15] MEDS ORDERED: LABETALOL HCL 20MG INJ IV PRN (13:00)
[2016-09-15] MEDS ORDERED: hydrALAzine 20 MG INJ IV PRN (13:00)
[2016-09-15] MEDS ORDERED: MEPERIDINE 25 MG INJ IV PRN (13:00)
[2016-09-15] MEDS ORDERED: ONDANSETRON 4 MG INJ IV PRN (13:00)
[2016-09-15] MEDS ORDERED: HYDROmorphONE (0.2 MG/ML) 10ML SYG IV PRN ×3 (13:00)
[2016-09-15] MEDS: DEXTROSE 5%-0.45% NACL 1,000 ML IV SCH (13:00)
[2016-09-15] MEDS ORDERED: LIDOCAINE 1% (MPF) 30 ML INJ ONE (13:08)
[2016-09-15] MEDS ORDERED: PROPOFOL 20 ML ONE (13:14)
[2016-09-15] MEDS: morphine 2 MG INJ IV PRN ×2 (13:57→23:37)
--- NOTE | 2016-09-15 15:44 | OPR ---
DATE OF OPERATION: 09/15/2016 PREOPERATIVE DIAGNOSIS: Left lower extremity thigh gangrenous decubitus ulcer. POSTOPERATIVE DIAGNOSIS: Left lower extremity thigh gangrenous decubitus ulcer. SURGEON: Stephen Fuentes MD ANESTHESIA: Local. ESTIMATED BLOOD LOSS: Minimal. COMPLICATIONS: None. SPECIMEN: Sent for microbiology. INDICATIONS: This is a 61-year-old female who is morbidly obese and nonactive who seems to be in si tting position for long hours. It seems the patient had developed multiple pressure ulcers in her s itting position, and she seems like has developed significant ulcer on her lateral upper thigh regio n. After discussing the risks and benefits with the patient and alternatives including but not limi piedad to bleeding, thrombosis, embolization, myocardial infarction, , stroke, and infection, the patient has agreed to proceed. OPERATION PERFORMED: Excisional sharp debridement of the upper thigh area involving the skin and [place] bcutaneous tissue. Wound measuring 5 x 3 x 2 cm. DESCRIPTION OF PROCEDURE: The patient was brought into the operating room table, placed in supine p osition. The normal bony prominences were padded. Anesthesia team had placed appropriate lines. Timeout and the appropriate site was marked and confirmed. Perioperative antibiotics were administe red prior to skin incision. Using a 15 blade, we went ahead and debrided all the necrotic tissue of the lateral and anterior asp ect of the left calf area. Once this was debrided, there was good rebleeding initiated at the base of the wound. Once this was established, the wound was irrigated with antibiotic solution. At this point, using a [employer] silver foam wound VAC was placed and pressures were set at 175 mmHg continuous h igh intensity. The patient tolerated the procedure well and was taken to the postanesthesia care un it in stable condition. All instruments, sponges, needle counts, catheters, and needles were correc t x2. Dictated By: STEPHEN BHAT/BLANCA Conf#: [id number] DID#: [id number]
[2016-09-15] MEDS: EPOETIN 10000 UNITS/1 ML INJ (ESRD) SC SCH (17:24)
[2016-09-15] MEDS: ATORVASTATIN 40 MG TAB PO SCH (20:54)
[2016-09-15] MEDS: INSULIN DETEMIR [LEVEMIR] 3ML CART SC SCH (21:02)
[2016-09-15] MEDS: CEFTRIAXONE 1 GM/50 ML (PMX) 50 ML IVPB SCH (21:05)
[2016-09-16] VITALS (22 sets, daily range): BP systolic 108–133; BP diastolic 47–78; PULSE 75–131; RESP 16–20
[2016-09-16] MEDS: ZOLPIDEM 5 MG TAB PO PRN (00:39)
[2016-09-16] MEDS: BENZONATATE 100 MG CAP PO SCH ×4 (00:40→18:00)
[2016-09-16] MEDS: OXYCODONE/ACETAMINOPHEN (10/325) TAB PO PRN ×4 (02:06→23:17)
[2016-09-16] MEDS: DEXTROSE 5%-0.45% NACL 1,000 ML IV SCH ×2 (02:16→15:40)
[2016-09-16] MEDS: PANTOPRAZOLE (EC) 40 MG TAB PO SCH (05:12)
[2016-09-16 07:35] LABS: ADD SCAN DIFF NO
[2016-09-16 07:39] LABS: BASOPHIL # 0.1 10^3/ul (0.0-0.1); BASOPHILS % 0.9 % (0.0-2.0); EOSINOPHILS # 0.5 10^3/ul (0.0-0.5); EOSINOPHILS % 4.7 % (0.0-7.0); HEMATOCRIT 26.6 % (37.0-47.0); HEMOGLOBIN 8.1 g/dl (12.0-16.0); LYMPHOCYTES # 1.5 10^3/ul (0.8-2.9); LYMPHOCYTES % 15.2 % (15.0-51.0); MEAN CORPUSCULAR HEMOGLOBIN 32.5 pg (29.0-33.0); MEAN CORPUSCULAR HGB CONC 30.5 g/dl (32.0-37.0); MEAN CORPUSCULAR VOLUME 106.8 fl (82.0-101.0); MEAN PLATELET VOLUME 9.9 fl (7.4-10.4); MONOCYTE # 1.3 10^3/ul (0.3-0.9); MONOCYTES % 13.3 % (0.0-11.0); NEUTROPHIL # 6.3 10^3/ul (1.6-7.5); NEUTROPHILS % 62.8 % (39.0-77.0); PLATELET COUNT 399 10^3/UL (140-415); RED BLOOD COUNT 2.49 10^6/ul (4.20-5.40); RED CELL DISTRIBUTION WIDTH 21.3 % (11.5-14.5); WHITE BLOOD COUNT 10.1 10^3/ul (4.8-10.8)
[2016-09-16 07:55] LABS: POTASSIUM 4.8 mmol/L (3.5-5.1)
[2016-09-16 07:57] LABS: CREATININE 4.96 mg/dl (0.44-1.00)
[2016-09-16 07:58] LABS: CALCIUM 8.9 mg/dl (8.4-10.2)
[2016-09-16 07:59] LABS: MAGNESIUM 2.4 mg/dl (1.7-2.5)
[2016-09-16] MEDS: INSULIN ASPART [NOVOLOG] 3 ML PEN SC SCH ×7 (08:28→23:07)
[2016-09-16] MEDS: METOCLOPRAMIDE 5 MG TAB PO SCH ×3 (08:30→17:35)
[2016-09-16] MEDS: METOPROLOL (XL) 50 MG TAB PO SCH (09:00)
[2016-09-16] MEDS: FUROSEMIDE 40 MG TAB PO SCH (09:00)
[2016-09-16] MEDS: LOSARTAN 50 MG TAB PO SCH ×2 (09:00→23:03)
[2016-09-16] MEDS: DILTIAZEM (SR) 60 MG CAP PO SCH ×2 (09:00→23:03)
[2016-09-16] MEDS: COLLAGENASE 30 GM TUBE TOP SCH (09:01)
[2016-09-16] MEDS: APIXABAN 5 MG TABLET PO SCH ×2 (09:26→23:03)
[2016-09-16] MEDS: CALCIUM ACETATE 667 MG CAP PO SCH ×3 (09:26→18:05)
[2016-09-16] MEDS: PYRIDOXINE 50 MG TAB PO SCH (09:26)
[2016-09-16] MEDS: ASPIRIN 81 MG TAB PO SCH (09:26)
[2016-09-16] MEDS: CINACALCET 30 MG TAB PO SCH (09:27)
[2016-09-16] MEDS: MONTELUKAST 10 MG TAB PO SCH (09:27)
[2016-09-16] MEDS: SALMETEROL/FLUTICASONE 250/50 INHA INH SCH ×2 (09:28→22:56)
[2016-09-16] MEDS: TIOTROPIUM 18 MCG CAPSULE INHA DEV INH SCH (09:29)
[2016-09-16] MEDS: NICOTINE (21 MG/24 HR) PATCH TRANSDERM SCH (09:30)
--- NOTE | 2016-09-16 12:47 | PN ---
DATE: 09/16/2016 SUBJECTIVE: The patient is stable this morning. She underwent left lower extremity thigh decubitu s ulcer debridement by Dr. Fuentes without complication. Transferred back to her room, where she has remained stable overnight. This morning the patient is requesting to go home; however, upon rev iew of her labs, she has persistently elevated blood sugars, with a peak of 304, at point of care gl ucose testing overnight. PHYSICAL EXAMINATION: VITAL SIGNS: Temperature 98, pulse is 110, blood pressure 122/78, O2 saturations 96% on FIO2 of 2 l iters. NECK: Supple. No JVD or lymphadenopathy. CARDIAC EXAM: S1, S2. No added sounds or murmurs. CHEST: Diminished air entry bilaterally. ABDOMEN: Soft, nontender. No guarding or rebound. EXTREMITIES: No cyanosis, clubbing or edema. NEUROLOGIC: Generalized weakness. LABORATORY: White count 10.1, hemoglobin 8.1, platelets of 399, BUN 56, creatinine 4.96. IMPRESSION AND PLAN: 1. Poorly controlled diabetes mellitus. I will have endocrinology consult today. 2. Extensive thigh wound. Status post debridement yesterday. 3. End-stage renal failure. On hemodialysis. 4. Probable underlying obstructive sleep apnea. PLAN: 1. Endocrinologic consultation for improvement in glycemic management. Dr. Herrera has been called. 2. Continue current antibiotics for wound care. 3. Continue vascular surgery recommendations. 4. Continue hemodialysis as recommended. Dictated By: REY DE SANTIAGO/BLANCA Conf#: [id number] DID#: [id number]
--- NOTE | 2016-09-16 14:11 | CONS ---
Date/Time of Note Date/Time of Note DATE: 09/16/16 TIME: 14:07 Assessment/Plan Assessment/Plan Problems: (1) Diabetes mellitus type 2 in obese Status: Chronic Comment: An ideal world this patient actually be a very tempting patient to use combination of a DPP IV drug such as Tradjenta in combination with insulin. This would allow us to use less insulin to achieve control. However the patient has from prior personal experience been sensitized against this concept and therefore will be using an insulin-based regimen. Her primary team is already adjusted her insulins and her sugars have come down 100 points and are approaching a more appropriate level. Please note that a significant portion of her improvement is also been due to the careful and diligent work of the glycemic management team. (2) End stage kidney disease Status: Acute Comment: As per nephrology (3) COPD (chronic obstructive pulmonary disease) Status: Acute Comment: She is on full dose therapy and doing relatively well. That this should be continued Qualifiers: Qualified Code: J44.1 - Chronic obstructive pulmonary disease with acute exacerbation (4) Hyperlipidemia associated with type 2 diabetes mellitus Status: Chronic Comment: She is on statin therapy (5) Essential hypertension Status: Chronic Comment: Adequate control Consultation Date/Type/Reason Admit Date/Time Sep 09, 2016 at 17:15 Date of Consultation: September 16, 2016 Type of Consultation: Endocrinology Reason for Consultation Diabetes mellitus type 2 with hyperglycemia.; End-stage renal disease; hypertension; hyperlipidemia; coronary artery disease; COPD Referring Provider: REY [facility]ARTAGENA [facility], [facility] Hx of Present Illness 7-year-old female with a history of diabetes mellitus type 2 on long- term insulin treatment. In the past when her kidneys had been in better condition she was combo using Januvia with her insulin. She reports that from her view of the world this was a dangerous combination as a cause her sugars to drop rather significantly. She did not have abdominal pain or pancreatitis. Because this she opts not to take an oral medication for her diabetes mellitus type 2 Constitutional: improved Respiratory: No cough Cardiovascular: No chest pain Gastrointestinal: no complaints Genitourinary: no complaints Musculoskeletal: back pain Skin: skin lesions Psychological: no complaints Past Medical History Medical History: congestive heart failure, coronary artery disease, diabetes, high cholesterol, hypertension Past Surgical History Past Surgical Hx: noncontributory Family History Significant Family History: diabetes, hypertension Social History Alcohol Use: none Smoking Status: Current every day smoker Drug Use: none Exam/Review of Systems Vital Signs Vitals Vital Signs Date Time Temp Pulse Resp B/P Pulse Ox O2 Delivery O2 Flow Rate FiO2 09/16/16 12:07 75 09/16/16 12:04 98.4 18 126/62 96 09/15/16 14:20 Room Air 09/12/16 10:00 2.0 Intake and Output 09/15/16 09/15/16 09/16/16 15:00 23:00 07:00 Intake Total 550 ml 470 ml Output Total 10 ml Balance 540 ml 470 ml Exam Constitutional: alert, oriented Respiratory: clear to auscultation, normal air movement Cardiovascular: nl pulses, regular rate and rhythm Gastrointestinal: nl liver, spleen, non-tender, soft Results Result Diagram: 09/16/16 0651 09/16/16 0651 Results 24 hrs Laboratory Tests Test 09/15/16 14:54 09/15/16 17:20 09/15/16 20:09 09/16/16 02:02 Bedside Glucose 119 280 H 251 H 304 H Test 09/16/16 06:51 09/16/16 08:13 09/16/16 11:26 White Blood Count 10.1 Red Blood Count 2.49 L Hemoglobin 8.1 L Hematocrit 26.6 L Mean Corpuscular Volume 106.8 H Mean Corpuscular Hemoglobin 32.5 Mean Corpuscular Hemoglobin Concent 30.5 L Red Cell Distribution Width 21.3 H Platelet Count 399 Mean Platelet Volume 9.9 Neutrophils % 62.8 Lymphocytes % 15.2 Monocytes % 13.3 H Eosinophils % 4.7 Basophils % 0.9 Nucleated Red Blood Cells % 0.0 Neutrophils # 6.3 Lymphocytes # 1.5 Monocytes # 1.3 H Eosinophils # 0.5 Basophils # 0.1 Nucleated Red Blood Cells # 0.0 Sodium Level 138 Potassium Level 4.8 Chloride Level 100 Carbon Dioxide Level 26 Anion Gap 17 H Blood Urea Nitrogen 56 H Creatinine 4.96 H Glucose Level 196 # Calcium Level 8.9 Phosphorus Level 4.0 Magnesium Level 2.4 Bedside Glucose 188 202 Medications Medications Current Medications Ondansetron HCl (Zofran Inj) 4 mg Q6H PRN IV NAUSEA AND/OR VOMITING; Start at 19:30 Acetaminophen (Tylenol Tab) 650 mg Q6H PRN PO PAIN LEVEL 1-3 OR FEVER; Start at 19:30 Morphine Sulfate (morphine) 2 mg Q4H PRN IV SEVERE PAIN LEVEL 7-10 Last administered on 09/15/16 23:37; Admin Dose 2 MG; Start 09/09/16 at 19:30 Docusate Sodium (Colace) 100 mg Q12H PRN PO CONSTIPATION; Start 09/09/16 at 19: 30 Zolpidem Tartrate 5 mg 5 mg QHS PRN PO SLEEP Last administered on 09/16/16 00: 39; Admin Dose 5 MG; Start 09/09/16 at 19:30 Ceftriaxone Sodium (Rocephin) 50 ml @ 100 mls/hr Q24H IVPB Last administered on 09/15/16 21:05; Admin Dose 100 MLS/HR; Start 09/09/16 at 21:30 Albuterol (Ventolin Hfa) 2 puff Q4H PRN INH WHEEZING AND SOB; Start 09/09/16 at 19:30 Apixaban (Eliquis) 5 mg BID PO Last administered on 09/16/16 09:26; Admin Dose 5 MG; Start 09/09/16 at 21:00 Aspirin (Aspirin) 81 mg DAILY PO Last administered on 09/16/16 09:26; Admin Dose 81 MG; Start 09/10/16 at 09:00 Atorvastatin Calcium (Lipitor) 40 mg QHS PO Last administered on 09/15/16 20:54 ; Admin Dose 40 MG; Start 09/09/16 at 21:00 Benzonatate (Tessalon) 100 mg Q6 PO Last administered on 09/16/16 05:12; Admin Dose 100 MG; Start 09/10/16 at 00:00 Cinacalcet (Sensipar) 30 mg DAILY PO Last administered on 09/16/16 09:27; Admin Dose 30 MG; Start 09/10/16 at 09:00 Diltiazem HCl (Cardizem Sr) 60 mg Q12 PO Last administered on 09/15/16 20:55; Admin Dose 60 MG; Start 09/09/16 at 21:00 Furosemide (Lasix) 80 mg DAILY PO Last administered on 09/14/16 08:23; Admin Dose 80 MG; Start 09/10/16 at 09:00 Insulin Detemir (Levemir) 90 unit QHS SC Last administered on 09/15/16 21:02; Admin Dose 90 UNIT; Start 09/09/16 at 21:00 Losartan Potassium (Cozaar) 50 mg BID PO Last administered on 09/15/16 20:55; Admin Dose 50 MG; Start 09/09/16 at 21:00 Montelukast Sodium (Singulair) 10 mg QAM PO Last administered on 09/16/16 09:27 ; Admin Dose 10 MG; Start 09/10/16 at 09:00 Pyridoxine HCl (Vitamin B6) 50 mg DAILY PO Last administered on 09/16/16 09:26 ; Admin Dose 50 MG; Start 09/10/16 at 09:00 Tiotropium [place] (Spiriva) 1 inh DAILY INH Last administered on 09/16/16 09: 29; Admin Dose 1 INH; Start 09/10/16 at 09:00 Salmeterol Xinafoate/ Fluticasone (Advair 250/50 Diskus) 1 inh BID INH Last administered on 09/16/16 09:28; Admin Dose 1 INH; Start 09/09/16 at 21:00 Pantoprazole (Protonix Tab) 40 mg DAILY@06 PO Last administered on 09/16/16 05: 12; Admin Dose 40 MG; Start 09/10/16 at 06:00 Miscellaneous Information 1 ea NOTE XX ; Start 09/09/16 at 20:30 Glucose (Glutose) 15 gm Q15M PRN PO DECREASED GLUCOSE; Start 09/09/16 at 20:30 Glucose (Glutose) 22.5 gm Q15M PRN PO DECREASED GLUCOSE; Start 09/09/16 at 20: 31 Dextrose (D50w Syringe) 25 ml Q15M PRN IV DECREASED GLUCOSE Last administered on 09/15/16 08:20; Admin Dose 25 ML; Start 09/09/16 at 20:30 Dextrose (D50w Syringe) 50 ml Q15M PRN IV DECREASED GLUCOSE; Start 09/09/16 at 20:30 Glucagon (Glucagen) 1 mg Q15M PRN IM DECREASED GLUCOSE; Start 09/09/16 at 20:30 Glucose (Glutose) 15 gm Q15M PRN BUCCAL DECREASED GLUCOSE; Start 09/09/16 at 20 :30 Collagenase (Santyl) 1 applic DAILY TOP Last administered on 09/16/16 09:01; Admin Dose 1 APPLIC; Start 09/10/16 at 21:00 Metoprolol Succinate (Toprol Xl) 100 mg DAILY PO Last administered on 09/15/16 10:20; Admin Dose 100 MG; Start 09/13/16 at 09:00 Epoetin Hang (Epogen (Esrd)) 10,000 units MoWeFr@17 SC Last administered on 09/15 17:24; Admin Dose 10,000 UNITS; Start 09/13/16 at 17:00 Oxycodone/ Acetaminophen (Endocet ()) 1 tab Q6H PRN PO PAIN Last administered on 09/16/16 08:10; Admin Dose 1 TAB; Start 09/13/16 at 11:00 Nicotine 1 patch 1 patch DAILY TRANSDERM Last administered on 09/15/16 09:59; Admin Dose 1 PATCH; Start 09/13/16 at 13:00 Dextrose/Sodium Chloride (D5-1/2ns) 1,000 ml @ 75 mls/hr [id number] IV ; Start 09/15/16 at 13:00 FOUZIA CHAMPION MD September 16, 2016 14:10
--- NOTE | 2016-09-16 16:36 | CONS ---
Date/Time of Note Date/Time of Note DATE: 09/16/16 TIME: 16:35 Assessment/Plan Assessment/Plan Chief Complaint/Hosp Course - ESRD on Hemodialysis - Anemia of chronic Disease - Hypertension - Secondary hyperparathyroidism - Hyperphosphatemia - Sepsis due to UTI - Chronic thigh infection - Smoker - CAD PLAN: She is on HD Tuesday - - Tuesday On bedside dialysis Cont. EPOGEN Continue with Sensipar & Her Phos. Binders Nicotine patches ordered Abx per Primary service Problems: Consultation Date/Type/Reason Admit Date/Time Sep 09, 2016 at 17:15 Initial Consult Date 09/13/16 Type of Consultation: NEPHROLOGY Reason for Consultation ESRD Referring Provider: REY CARTAGENA MD, [facility] Interval Summary Constitutional: improved, no complaints Exam/Review of Systems Vital Signs Vitals Vital Signs Date Time Temp Pulse Resp B/P Pulse Ox O2 Delivery O2 Flow Rate FiO2 09/16/16 16:10 98.3 78 18 124/60 93 09/15/16 14:20 Room Air 09/12/16 10:00 2.0 Intake and Output 09/15/16 09/15/16 09/16/16 15:00 23:00 07:00 Intake Total 550 ml 470 ml Output Total 10 ml Balance 540 ml 470 ml Exam Constitutional: alert, oriented Psych: no complaints Respiratory: crackles/rales Cardiovascular: edema, regular rate and rhythm, systolic murmur Gastrointestinal: soft Results Result Diagram: 09/16/16 0651 09/16/16 0651 Results 24 hrs Laboratory Tests Test 09/15/16 17:20 09/15/16 20:09 09/16/16 02:02 09/16/16 06:51 Bedside Glucose 280 H 251 H 304 H White Blood Count 10.1 Red Blood Count 2.49 L Hemoglobin 8.1 L Hematocrit 26.6 L Mean Corpuscular Volume 106.8 H Mean Corpuscular Hemoglobin 32.5 Mean Corpuscular Hemoglobin Concent 30.5 L Red Cell Distribution Width 21.3 H Platelet Count 399 Mean Platelet Volume 9.9 Neutrophils % 62.8 Lymphocytes % 15.2 Monocytes % 13.3 H Eosinophils % 4.7 Basophils % 0.9 Nucleated Red Blood Cells % 0.0 Neutrophils # 6.3 Lymphocytes # 1.5 Monocytes # 1.3 H Eosinophils # 0.5 Basophils # 0.1 Nucleated Red Blood Cells # 0.0 Sodium Level 138 Potassium Level 4.8 Chloride Level 100 Carbon Dioxide Level 26 Anion Gap 17 H Blood Urea Nitrogen 56 H Creatinine 4.96 H Glucose Level 196 # Calcium Level 8.9 Phosphorus Level 4.0 Magnesium Level 2.4 Test 09/16/16 08:13 09/16/16 11:26 Bedside Glucose 188 202 Medications Medications Current Medications Ondansetron HCl (Zofran Inj) 4 mg Q6H PRN IV NAUSEA AND/OR VOMITING; Start at 19:30 Acetaminophen (Tylenol Tab) 650 mg Q6H PRN PO PAIN LEVEL 1-3 OR FEVER; Start at 19:30 Morphine Sulfate (morphine) 2 mg Q4H PRN IV SEVERE PAIN LEVEL 7-10 Last administered on 09/15/16 23:37; Admin Dose 2 MG; Start 09/09/16 at 19:30 Docusate Sodium (Colace) 100 mg Q12H PRN PO CONSTIPATION; Start 09/09/16 at 19: 30 Zolpidem Tartrate 5 mg 5 mg QHS PRN PO SLEEP Last administered on 09/16/16 00: 39; Admin Dose 5 MG; Start 09/09/16 at 19:30 Ceftriaxone Sodium (Rocephin) 50 ml @ 100 mls/hr Q24H IVPB Last administered on 09/15/16 21:05; Admin Dose 100 MLS/HR; Start 09/09/16 at 21:30 Albuterol (Ventolin Hfa) 2 puff Q4H PRN INH WHEEZING AND SOB; Start 09/09/16 at 19:30 Apixaban (Eliquis) 5 mg BID PO Last administered on 09/16/16 09:26; Admin Dose 5 MG; Start 09/09/16 at 21:00 Aspirin (Aspirin) 81 mg DAILY PO Last administered on 09/16/16 09:26; Admin Dose 81 MG; Start 09/10/16 at 09:00 Atorvastatin Calcium (Lipitor) 40 mg QHS PO Last administered on 09/15/16 20:54 ; Admin Dose 40 MG; Start 09/09/16 at 21:00 Benzonatate (Tessalon) 100 mg Q6 PO Last administered on 09/16/16 05:12; Admin Dose 100 MG; Start 09/10/16 at 00:00 Cinacalcet (Sensipar) 30 mg DAILY PO Last administered on 09/16/16 09:27; Admin Dose 30 MG; Start 09/10/16 at 09:00 Diltiazem HCl (Cardizem Sr) 60 mg Q12 PO Last administered on 09/15/16 20:55; Admin Dose 60 MG; Start 09/09/16 at 21:00 Furosemide (Lasix) 80 mg DAILY PO Last administered on 09/14/16 08:23; Admin Dose 80 MG; Start 09/10/16 at 09:00 Insulin Detemir (Levemir) 90 unit QHS SC Last administered on 09/15/16 21:02; Admin Dose 90 UNIT; Start 09/09/16 at 21:00 Losartan Potassium (Cozaar) 50 mg BID PO Last administered on 09/15/16 20:55; Admin Dose 50 MG; Start 09/09/16 at 21:00 Montelukast Sodium (Singulair) 10 mg QAM PO Last administered on 09/16/16 09:27 ; Admin Dose 10 MG; Start 09/10/16 at 09:00 Pyridoxine HCl (Vitamin B6) 50 mg DAILY PO Last administered on 09/16/16 09:26 ; Admin Dose 50 MG; Start 09/10/16 at 09:00 Tiotropium [place] (Spiriva) 1 inh DAILY INH Last administered on 09/16/16 09: 29; Admin Dose 1 INH; Start 09/10/16 at 09:00 Salmeterol Xinafoate/ Fluticasone (Advair 250/50 Diskus) 1 inh BID INH Last administered on 09/16/16 09:28; Admin Dose 1 INH; Start 09/09/16 at 21:00 Pantoprazole (Protonix Tab) 40 mg DAILY@06 PO Last administered on 09/16/16 05: 12; Admin Dose 40 MG; Start 09/10/16 at 06:00 Miscellaneous Information 1 ea NOTE XX ; Start 09/09/16 at 20:30 Glucose (Glutose) 15 gm Q15M PRN PO DECREASED GLUCOSE; Start 09/09/16 at 20:30 Glucose (Glutose) 22.5 gm Q15M PRN PO DECREASED GLUCOSE; Start 09/09/16 at 20: 31 Dextrose (D50w Syringe) 25 ml Q15M PRN IV DECREASED GLUCOSE Last administered on 09/15/16 08:20; Admin Dose 25 ML; Start 09/09/16 at 20:30 Dextrose (D50w Syringe) 50 ml Q15M PRN IV DECREASED GLUCOSE; Start 09/09/16 at 20:30 Glucagon (Glucagen) 1 mg Q15M PRN IM DECREASED GLUCOSE; Start 09/09/16 at 20:30 Glucose (Glutose) 15 gm Q15M PRN BUCCAL DECREASED GLUCOSE; Start 09/09/16 at 20 :30 Collagenase (Santyl) 1 applic DAILY TOP Last administered on 09/16/16 09:01; Admin Dose 1 APPLIC; Start 09/10/16 at 21:00 Metoprolol Succinate (Toprol Xl) 100 mg DAILY PO Last administered on 09/15/16 10:20; Admin Dose 100 MG; Start 09/13/16 at 09:00 Epoetin Hang (Epogen (Esrd)) 10,000 units MoWeFr@17 SC Last administered on 09/15 17:24; Admin Dose 10,000 UNITS; Start 09/13/16 at 17:00 Oxycodone/ Acetaminophen (Endocet (10/ 325)) 1 tab Q6H PRN PO PAIN Last administered on 09/16/16 08:10; Admin Dose 1 TAB; Start 09/13/16 at 11:00 Nicotine 1 patch 1 patch DAILY TRANSDERM Last administered on 09/15/16 09:59; Admin Dose 1 PATCH; Start 09/13/16 at 13:00 Dextrose/Sodium Chloride (D5-1/2ns) 1,000 ml @ 75 mls/hr [id number] IV ; Start 09/15/16 at 13:00 BECKY GAMBLE MD September 16, 2016 16:36
[2016-09-16] MEDS: morphine 2 MG INJ IV PRN (21:23)
--- NOTE | 2016-09-16 22:42 | PN ---
Date/Time of Note Date/Time of Note DATE: 09/16/16 TIME: 22:42 Assessment/Plan Lines/Catheters IV [facility]from [facility] Saline Lock Assessment/Plan Chief Complaint/Hosp Course -Bilateral lower extremity atherosclerosis with ulcers: It seems the patient may have a component of mixed disease with arterial insufficiency and venous insufficiency. Upon her noninvasive vascular studies the patient has what seems to be infrapopliteal disease with monophasic flow in her tibials. There is concern that the patient may have diabetic tibioperoneal disease. Upon CT angiography of the lower extremities she has adequate perfusion to her upper leg and should be cleared from vascular standpoint. S/P Debridement VAC placement --Bilateral lower extremity venous insufficiency with ulcers (CEAP classification 6): The patient also has a mixed component of venous disease in light of her bilateral lower extremity atherosclerosis. We will plan to obtain eventual reflux studies as an outpatient, but at the moment apply Santyl medication to her ulcers and plan to apply a 2-layer compression dressings with Kerlix and Antoni wrap -Recommend consulting our wound care management team for compression dressings -Optimize vascular status (BP meds, diet, nutrition, exercise, sugar control, antiplatelets). -Discussed smoking cessation with the patient, would recommend for her to have decrease the amount of cigarettes that she smokes per day, currently a pack and a half. -End-stage renal disease: Although the patient has a functioning fistula; fistula ultrasound demonstrated low flow volume and neointimal hyperplasia in the anastomosis segment. Will schedule her for fistulogram in the near future ( outpatient) -Discussed findings, plan and management with the patient and she understands. -Thank you for allowing us to partake in the care of your patient. Please call with any questions. Problems: Subjective 24 Hr Interval Summary Constitutional: improved, no complaints Exam/Review of Systems Vital Signs Vitals Vital Signs Date Time Temp Pulse Resp B/P Pulse Ox O2 Delivery O2 Flow Rate FiO2 09/21/16 08:32 115 09/21/16 07:53 98.2 20 118/58 95 09/19/16 08:00 Room Air Intake and Output 09/20/16 09/20/16 09/21/16 15:00 23:00 07:00 Intake Total 1000 ml 720 ml Balance 1000 ml 720 ml Exam Free Text/Dictation GENERAL: Alert and oriented x3, PULMONARY: Clear to auscultation bilaterally. CARDIOVASCULAR: S1, S2 present. ABDOMEN: Soft, nontender, nondistended. Bowel sounds positive. Truncal obesity, large pannus. EXTREMITIES: -Right lower extremity palpable femoral pulse, nonpalpable pedal pulse. Motor, sensory intact. Cap refill 3 to 4 seconds, edema 1 to 2+. Upper lateral thigh ulcer that is superficial and almost healed. Lower leg with lipodermatosclerosis, spider veins, telangiectasias and also multiple areas of healed ulcers. -Left lower extremity palpable femoral pulse, nonpalpable pedal pulse. Motor, sensory intact. Capillary refill 3 to 4 seconds. Edema 2+. Lateral thigh wound with vac intact and functional. Lower leg with lipodermatosclerosis with multiple ulcers: medial, lateral and bahena ulcers that seem to be superficial with eschar on it as well Results Result Diagram: 09/21/16 0715 09/21/16 0715 MAYLIN BROWN MD September 16, 2016 22:42
[2016-09-16] MEDS: CEFTRIAXONE 1 GM/50 ML (PMX) 50 ML IVPB SCH (22:56)
[2016-09-16] MEDS: ATORVASTATIN 40 MG TAB PO SCH (22:57)
[2016-09-16] MEDS: INSULIN DETEMIR [LEVEMIR] 3ML CART SC SCH (23:06)
[2016-09-17] VITALS (11 sets, daily range): BP systolic 102–132; BP diastolic 50–63; PULSE 99–126; RESP 18–20
[2016-09-17] MEDS: ZOLPIDEM 5 MG TAB PO PRN (00:01)
[2016-09-17] MEDS: BENZONATATE 100 MG CAP PO SCH ×4 (00:01→17:15)
[2016-09-17] MEDS ORDERED: INSULIN ASPART [NOVOLOG] 3 ML PEN SC ONE (03:00)
[2016-09-17] MEDS: DEXTROSE 5%-0.45% NACL 1,000 ML IV SCH (05:00)
[2016-09-17] MEDS: PANTOPRAZOLE (EC) 40 MG TAB PO SCH (05:42)
[2016-09-17 07:18] LABS: ADD SCAN DIFF NO
[2016-09-17 07:29] LABS: BASOPHIL # 0.1 10^3/ul (0.0-0.1); BASOPHILS % 0.9 % (0.0-2.0); EOSINOPHILS # 0.4 10^3/ul (0.0-0.5); EOSINOPHILS % 4.4 % (0.0-7.0); HEMATOCRIT 27.1 % (37.0-47.0); LYMPHOCYTES # 1.8 10^3/ul (0.8-2.9); LYMPHOCYTES % 18.3 % (15.0-51.0); MEAN CORPUSCULAR HEMOGLOBIN 31.7 pg (29.0-33.0); MEAN CORPUSCULAR HGB CONC 29.5 g/dl (32.0-37.0); MEAN CORPUSCULAR VOLUME 107.5 fl (82.0-101.0); MEAN PLATELET VOLUME 10.1 fl (7.4-10.4); MONOCYTE # 1.5 10^3/ul (0.3-0.9); MONOCYTES % 15.5 % (0.0-11.0); NEUTROPHIL # 5.6 10^3/ul (1.6-7.5); NEUTROPHILS % 58.3 % (39.0-77.0); NUCLEATED RED BLOOD CELLS% 0.2 /100WBC (0.0-0.0); PLATELET COUNT 391 10^3/UL (140-415); RED BLOOD COUNT 2.52 10^6/ul (4.20-5.40); RED CELL DISTRIBUTION WIDTH 21.3 % (11.5-14.5); WHITE BLOOD COUNT 9.5 10^3/ul (4.8-10.8)
[2016-09-17 08:03] LABS: CALCIUM 9.1 mg/dl (8.4-10.2); CREATININE 4.08 mg/dl (0.44-1.00); MAGNESIUM 2.4 mg/dl (1.7-2.5); PHOSPHORUS 3.8 mg/dl (2.5-4.9); POTASSIUM 4.9 mmol/L (3.5-5.1)
[2016-09-17] MEDS: ASPIRIN 81 MG TAB PO SCH (08:19)
[2016-09-17] MEDS: METOCLOPRAMIDE 5 MG TAB PO SCH ×3 (08:20→17:18)
[2016-09-17] MEDS: CINACALCET 30 MG TAB PO SCH (08:20)
[2016-09-17] MEDS: MONTELUKAST 10 MG TAB PO SCH (08:20)
[2016-09-17] MEDS: CALCIUM ACETATE 667 MG CAP PO SCH ×3 (08:20→17:15)
[2016-09-17] MEDS: APIXABAN 5 MG TABLET PO SCH ×2 (08:20→20:14)
[2016-09-17] MEDS: FUROSEMIDE 40 MG TAB PO SCH (08:21)
[2016-09-17] MEDS: COLLAGENASE 30 GM TUBE TOP SCH (08:21)
[2016-09-17] MEDS: METOPROLOL (XL) 50 MG TAB PO SCH (08:22)
[2016-09-17] MEDS: LOSARTAN 50 MG TAB PO SCH ×2 (08:22→20:14)
[2016-09-17] MEDS: NICOTINE (21 MG/24 HR) PATCH TRANSDERM SCH (08:22)
[2016-09-17] MEDS: TIOTROPIUM 18 MCG CAPSULE INHA DEV INH SCH (08:23)
[2016-09-17] MEDS: SALMETEROL/FLUTICASONE 250/50 INHA INH SCH ×2 (08:23→20:14)
[2016-09-17] MEDS: INSULIN ASPART [NOVOLOG] 3 ML PEN SC SCH ×7 (08:33→20:26)
[2016-09-17] MEDS: DILTIAZEM (SR) 60 MG CAP PO SCH ×2 (08:34→20:14)
[2016-09-17] MEDS: PYRIDOXINE 50 MG TAB PO SCH (08:34)
[2016-09-17] MEDS: OXYCODONE/ACETAMINOPHEN (10/325) TAB PO PRN ×2 (09:05→20:11)
[2016-09-17] MEDS: morphine 2 MG INJ IV PRN (13:27)
--- NOTE | 2016-09-17 14:10 | CONS ---
Date/Time of Note Date/Time of Note DATE: 09/17/16 TIME: 14:07 Assessment/Plan Assessment/Plan Chief Complaint/Hosp Course 7-year-old female with a history of diabetes mellitus type 2 on long- term insulin treatment. In the past when her kidneys had been in better condition she was combo using Januvia with her insulin. She reports that from her view of the world this was a dangerous combination as a cause her sugars to drop rather significantly. She did not have abdominal pain or pancreatitis. Because this she opts not to take an oral medication for her diabetes mellitus type 2 Problems: (1) Diabetes mellitus type 2 in obese Status: Chronic Comment: In an ideal world we would be able to add in 1 of the sensitizing drug therapies. As noted in my initial note from yesterday the patient refuses a DPP 4 inhibitor drug. For obvious reasons metformin is off of the table as an option. A GLP-1 drug would be useful but is an additional injection which the patient is not interested in performing. I would therefore leave sulfonylurea agents which should have an unpredictable behavior pattern in the renal setting and bromocriptine which I believe would not be except for this patient based on side effects. We will adjust her insulins from an endocrine standpoint she is stable for discharge (2) End stage kidney disease Status: Acute Comment: As per nephrology please see their notes which are consistent (3) COPD (chronic obstructive pulmonary disease) Status: Acute Comment: Well-controlled Qualifiers: COPD type: COPD with acute exacerbation Qualified Code: J44.1 - Chronic obstructive pulmonary disease with acute exacerbation Consultation Date/Type/Reason Admit Date/Time Sep 09, 2016 at 17:15 Initial Consult Date 09/16/16 Type of Consultation: Endocrinology Reason for Consultation Diabetes mellitus type 2 with complications including end-stage renal disease Referring Provider: REY CARTAGENA MD, [facility] 24 HR Interval Summary Free Text/Dictation Patient without hypoglycemic reactions Constitutional: no complaints (No fevers chills or sweats) Detailed Summary Respiratory: no complaints Cardiovascular: no complaints Gastrointestinal: no complaints Exam/Review of Systems Vital Signs Vitals Vital Signs Date Time Temp Pulse Resp B/P Pulse Ox O2 Delivery O2 Flow Rate FiO2 09/17/16 12:43 113 09/17/16 12:04 98.2 20 132/61 94 09/15/16 14:20 Room Air Intake and Output 09/16/16 09/16/16 09/17/16 15:00 23:00 07:00 Intake Total 400 ml 950 ml 450 ml Output Total 3700 ml Balance 400 ml -2750 ml 450 ml Exam Constitutional: alert, oriented Neck: non-tender, supple Respiratory: clear to auscultation, normal air movement Cardiovascular: nl pulses, regular rate and rhythm Extremities: other (Decreased pulses) Results Result Diagram: 09/17/16 0630 09/17/16 0630 Results 24 hrs Laboratory Tests Test 09/16/16 17:11 09/16/16 22:50 09/17/16 02:26 09/17/16 05:46 Bedside Glucose 225 H 248 H 321 H 212 Test 09/17/16 06:30 09/17/16 08:17 09/17/16 11:28 White Blood Count 9.5 Red Blood Count 2.52 L Hemoglobin 8.0 L Hematocrit 27.1 L Mean Corpuscular Volume 107.5 H Mean Corpuscular Hemoglobin 31.7 Mean Corpuscular Hemoglobin Concent 29.5 L Red Cell Distribution Width 21.3 H Platelet Count 391 Mean Platelet Volume 10.1 Neutrophils % 58.3 Lymphocytes % 18.3 Monocytes % 15.5 H Eosinophils % 4.4 Basophils % 0.9 Nucleated Red Blood Cells % 0.2 H Neutrophils # 5.6 Lymphocytes # 1.8 Monocytes # 1.5 H Eosinophils # 0.4 Basophils # 0.1 Nucleated Red Blood Cells # 0.0 Sodium Level 138 Potassium Level 4.9 Chloride Level 103 Carbon Dioxide Level 28 Anion Gap 12 Blood Urea Nitrogen 42 #H Creatinine 4.08 H Glucose Level 202 Calcium Level 9.1 Phosphorus Level 3.8 Magnesium Level 2.4 Bedside Glucose 205 261 H Medications Medications Current Medications Ondansetron HCl (Zofran Inj) 4 mg Q6H PRN IV NAUSEA AND/OR VOMITING; Start at 19:30 Acetaminophen (Tylenol Tab) 650 mg Q6H PRN PO PAIN LEVEL 1-3 OR FEVER; Start at 19:30 Morphine Sulfate (morphine) 2 mg Q4H PRN IV SEVERE PAIN LEVEL 7-10 Last administered on 09/17/16t 13:27; Admin Dose 2 MG; Start 09/09/16 at 19:30 Docusate Sodium (Colace) 100 mg Q12H PRN PO CONSTIPATION; Start 09/09/16 at 19: 30 Zolpidem Tartrate 5 mg 5 mg QHS PRN PO SLEEP Last administered on 09/17/16 00: 01; Admin Dose 5 MG; Start 09/09/16 at 19:30 Ceftriaxone Sodium (Rocephin) 50 ml @ 100 mls/hr Q24H IVPB Last administered on 09/16/16 22:56; Admin Dose 100 MLS/HR; Start 09/09/16 at 21:30 Albuterol (Ventolin Hfa) 2 puff Q4H PRN INH WHEEZING AND SOB; Start 09/09/16 at 19:30 Apixaban (Eliquis) 5 mg BID PO Last administered on 09/17/16 08:20; Admin Dose 5 MG; Start 09/09/16 at 21:00 Aspirin (Aspirin) 81 mg DAILY PO Last administered on 09/17/16 08:19; Admin Dose 81 MG; Start 09/10/16 at 09:00 Atorvastatin Calcium (Lipitor) 40 mg QHS PO Last administered on 09/16/16 22:57 ; Admin Dose 40 MG; Start 09/09/16 at 21:00 Benzonatate (Tessalon) 100 mg Q6 PO Last administered on 09/17/16 11:26; Admin Dose 100 MG; Start 09/10/16 at 00:00 Cinacalcet (Sensipar) 30 mg DAILY PO Last administered on 09/17/16 08:20; Admin Dose 30 MG; Start 09/10/16 at 09:00 Diltiazem HCl (Cardizem Sr) 60 mg Q12 PO Last administered on 09/17/16 08:34; Admin Dose 60 MG; Start 09/09/16 at 21:00 Furosemide (Lasix) 80 mg DAILY PO Last administered on 09/17/16 08:21; Admin Dose 80 MG; Start 09/10/16 at 09:00 Insulin Detemir (Levemir) 90 unit QHS SC Last administered on 09/16/16 23:06; Admin Dose 90 UNIT; Start 09/09/16 at 21:00 Losartan Potassium (Cozaar) 50 mg BID PO Last administered on 09/16/16 23:03; Admin Dose 50 MG; Start 09/09/16 at 21:00 Montelukast Sodium (Singulair) 10 mg QAM PO Last administered on 09/17/16 08:20 ; Admin Dose 10 MG; Start 09/10/16 at 09:00 Pyridoxine HCl (Vitamin B6) 50 mg DAILY PO Last administered on 09/17/16 08:34 ; Admin Dose 50 MG; Start 09/10/16 at 09:00 Tiotropium [place] (Spiriva) 1 inh DAILY INH Last administered on 09/17/16 08: 23; Admin Dose 1 INH; Start 09/10/16 at 09:00 Salmeterol Xinafoate/ Fluticasone (Advair 250/50 Diskus) 1 inh BID INH Last administered on 09/17/16 08:23; Admin Dose 1 INH; Start 09/09/16 at 21:00 Pantoprazole (Protonix Tab) 40 mg DAILY@06 PO Last administered on 09/17/16 05: 42; Admin Dose 40 MG; Start 09/10/16 at 06:00 Miscellaneous Information 1 ea NOTE XX ; Start 09/09/16 at 20:30 Glucose (Glutose) 15 gm Q15M PRN PO DECREASED GLUCOSE; Start 09/09/16 at 20:30 Glucose (Glutose) 22.5 gm Q15M PRN PO DECREASED GLUCOSE; Start 09/09/16 at 20: 31 Dextrose (D50w Syringe) 25 ml Q15M PRN IV DECREASED GLUCOSE Last administered on 09/15/16 08:20; Admin Dose 25 ML; Start 09/09/16 at 20:30 Dextrose (D50w Syringe) 50 ml Q15M PRN IV DECREASED GLUCOSE; Start 09/09/16 at 20:30 Glucagon (Glucagen) 1 mg Q15M PRN IM DECREASED GLUCOSE; Start 09/09/16 at 20:30 Glucose (Glutose) 15 gm Q15M PRN BUCCAL DECREASED GLUCOSE; Start 09/09/16 at 20 :30 Collagenase (Santyl) 1 applic DAILY TOP Last administered on 09/17/16 08:21; Admin Dose 1 APPLIC; Start 09/10/16 at 21:00 Metoprolol Succinate (Toprol Xl) 100 mg DAILY PO Last administered on 09/15/16 10:20; Admin Dose 100 MG; Start 5/1/17 at 09:00 Epoetin Hang (Epogen (Esrd)) 10,000 units MoWeFr@17 SC Last administered on 09/15 17:24; Admin Dose 10,000 UNITS; Start 09/13/16 at 17:00 Oxycodone/ Acetaminophen (Endocet (10 325)) 1 tab Q6H PRN PO PAIN Last administered on 09/17/16 09:05; Admin Dose 1 TAB; Start 09/13/16 at 11:00 Nicotine (Nicoderm 21 Mg/ 24hr) 1 patch DAILY TRANSDERM Last administered on 08:22; Admin Dose 1 PATCH; Start 09/13/16 at 13:00 FOUZIA CHAMPION MD September 17, 2016 14:09
--- NOTE | 2016-09-17 16:38 | PN ---
DATE: 09/17/2016 MEDICINE FOLLOWUP NOTE Patient Anthony remained stable this morning. No new events. PHYSICAL EXAMINATION: VITAL SIGNS: Temperature 98, pulse is 100, blood pressure 132/60, O2 saturation 96% on room air. NECK: Supple, no JVD or lymphadenopathy. CARDIAC: S1, S2, no diminished air entry in both lung chand. ABDOMEN: Soft, nontender, no guarding or rebound. EXTREMITIES: No cyanosis, clubbing. ____generalized weakness. LABORATORY DATA: BUN 42, creatinine 4.08. Blood sugars still remain somewhat elevated in the 200 r sheldon. IMPRESSION: 1. Uncontrolled diabetes. Appreciate endocrinology consult. Continue recommendations. 2. Extensive thigh wound, status post debridement. Continue wound care. 3. Patient is waiting for a wound VAC. 4. End-stage renal failure on hemodialysis. 5. Probable underlying obstructive sleep apnea. PLAN: 1. Continue wound care pending wound VAC. When wound VAC is available, patient can be discharged h ome. 2. Continue endocrinology recommendations. 3. Continue current antibiotics. 4. Vascular surgery recommendations. 5. Hemodialysis per Dr. Masood Rolon. Dictated By: REY DE SANTIAGO/BLANCA Conf#: [id number] DID#: [id number]
[2016-09-17] MEDS: EPOETIN 10000 UNITS/1 ML INJ (ESRD) SC SCH (17:18)
[2016-09-17] MEDS: ATORVASTATIN 40 MG TAB PO SCH (20:14)
[2016-09-17] MEDS: INSULIN DETEMIR [LEVEMIR] 3ML CART SC SCH (20:30)
[2016-09-17] MEDS: CEFTRIAXONE 1 GM/50 ML (PMX) 50 ML IVPB SCH (23:04)
[2016-09-18] VITALS (19 sets, daily range): BP systolic 104–141; BP diastolic 46–71; PULSE 83–123; RESP 16–20
[2016-09-18] MEDS: BENZONATATE 100 MG CAP PO SCH ×4 (00:05→17:47)
[2016-09-18] MEDS: ZOLPIDEM 5 MG TAB PO PRN (00:05)
[2016-09-18] MEDS: OXYCODONE/ACETAMINOPHEN (10/325) TAB PO PRN ×3 (02:24→21:42)
[2016-09-18] MEDS: PANTOPRAZOLE (EC) 40 MG TAB PO SCH (05:54)
[2016-09-18] MEDS: morphine 2 MG INJ IV PRN (06:26)
[2016-09-18] MEDS: METOCLOPRAMIDE 5 MG TAB PO SCH ×3 (08:20→17:47)
[2016-09-18] MEDS: CALCIUM ACETATE 667 MG CAP PO SCH ×3 (08:20→17:47)
[2016-09-18] MEDS: INSULIN ASPART [NOVOLOG] 3 ML PEN SC SCH ×7 (08:25→21:28)
[2016-09-18] MEDS: NICOTINE (21 MG/24 HR) PATCH TRANSDERM SCH (09:26)
[2016-09-18] MEDS: TIOTROPIUM 18 MCG CAPSULE INHA DEV INH SCH (09:27)
[2016-09-18] MEDS: SALMETEROL/FLUTICASONE 250/50 INHA INH SCH ×2 (09:27→21:12)
[2016-09-18] MEDS: APIXABAN 5 MG TABLET PO SCH ×2 (09:28→21:12)
[2016-09-18] MEDS: LOSARTAN 50 MG TAB PO SCH ×2 (09:28→21:12)
[2016-09-18] MEDS: ASPIRIN 81 MG TAB PO SCH (09:28)
[2016-09-18] MEDS: MONTELUKAST 10 MG TAB PO SCH (09:28)
[2016-09-18] MEDS: PYRIDOXINE 50 MG TAB PO SCH (09:28)
[2016-09-18] MEDS: CINACALCET 30 MG TAB PO SCH (09:28)
[2016-09-18] MEDS: METOPROLOL (XL) 50 MG TAB PO SCH (09:29)
[2016-09-18] MEDS: DILTIAZEM (SR) 60 MG CAP PO SCH ×2 (09:29→21:12)
[2016-09-18] MEDS: COLLAGENASE 30 GM TUBE TOP SCH (09:30)
[2016-09-18] MEDS: FUROSEMIDE 40 MG TAB PO SCH (09:30)
--- NOTE | 2016-09-18 10:04 | CONS ---
Date/Time of Note Date/Time of Note DATE: 09/18/16 TIME: 10:01 Assessment/Plan Assessment/Plan Chief Complaint/Hosp Course 7-year-old female with a history of diabetes mellitus type 2 on long- term insulin treatment. In the past when her kidneys had been in better condition she was combo using Januvia with her insulin. She reports that from her view of the world this was a dangerous combination as a cause her sugars to drop rather significantly. She did not have abdominal pain or pancreatitis. Because this she opts not to take an oral medication for her diabetes mellitus type 2 Problems: (1) Essential hypertension Status: Chronic Comment: Adequate control. (2) Coronary artery disease Status: Chronic Comment: Noted and stable Qualifiers: Coronary Disease-Associated Artery/Lesion type: stebbins artery [place] vs. transplanted heart: stebbins heart Associated angina: without angina Qualified Code: I25.10 - Coronary artery disease involving stebbins coronary artery of stebbins heart without angina pectoris (3) Diabetes mellitus type 2 in obese Status: Chronic Comment: Patient now is willing to consider the usage of a DPP for IV inhibitor drug. This would actually be ideal in her setting. However she does not want to do this is an inpatient. I have carefully counseled her that if she starts this she should in the first initiation days cut her insulin by half and then slowly titrate back up on the insulin to effect. From an endocrine standpoint she is stable for discharge now Consultation Date/Type/Reason Admit Date/Time Sep 09, 2016 at 17:15 Initial Consult Date 09/16/16 Type of Consultation: Endocrinology Referring Provider: REY CARTAGENA MD, [facility] 24 HR Interval Summary Free Text/Dictation Denies hypoglycemic reactions Constitutional: no complaints Exam/Review of Systems Vital Signs Vitals Vital Signs Date Time Temp Pulse Resp B/P Pulse Ox O2 Delivery O2 Flow Rate FiO2 09/18/16 08:07 98.1 124 16 124/66 93 09/15/16 14:20 Room Air Intake and Output 09/17/16 09/17/16 09/18/16 15:00 23:00 07:00 Intake Total 960 ml 550 ml Balance 960 ml 550 ml Exam Constitutional: alert, oriented Neck: non-tender, supple Respiratory: clear to auscultation, normal air movement Cardiovascular: nl pulses, regular rate and rhythm Results Result Diagram: 09/17/1662909/17/16629 Results 24 hrs Laboratory Tests Test 09/17/16 11:28 09/17/16 17:13 09/17/16 20:20 09/18/16 02:26 Bedside Glucose 261 H 234 H 272 H 184 Test 09/18/16 05:58 09/18/16 08:21 Random Vancomycin Level 12.6 Bedside Glucose 161 Medications Medications Current Medications Ondansetron HCl (Zofran Inj) 4 mg Q6H PRN IV NAUSEA AND/OR VOMITING; Start at 19:30 Acetaminophen (Tylenol Tab) 650 mg Q6H PRN PO PAIN LEVEL 1-3 OR FEVER; Start at 19:30 Morphine Sulfate (morphine) 2 mg Q4H PRN IV SEVERE PAIN LEVEL 7-10 Last administered on 09/18/16 06:26; Admin Dose 2 MG; Start 09/09/16 at 19:30 Docusate Sodium (Colace) 100 mg Q12H PRN PO CONSTIPATION; Start 09/09/16 at 19: 30 Zolpidem Tartrate 5 mg 5 mg QHS PRN PO SLEEP Last administered on 09/18/16 00: 05; Admin Dose 5 MG; Start 09/09/16 at 19:30 Ceftriaxone Sodium (Rocephin) 50 ml @ 100 mls/hr Q24H IVPB Last administered on 09/17/16 23:04; Admin Dose 100 MLS/HR; Start 09/09/16 at 21:30 Albuterol (Ventolin Hfa) 2 puff Q4H PRN INH WHEEZING AND SOB; Start 09/09/16 at 19:30 Apixaban (Eliquis) 5 mg BID PO Last administered on 09/18/16 09:28; Admin Dose 5 MG; Start 09/09/16 at 21:00 Aspirin (Aspirin) 81 mg DAILY PO Last administered on 09/18/16 09:28; Admin Dose 81 MG; Start 09/10/16 at 09:00 Atorvastatin Calcium (Lipitor) 40 mg QHS PO Last administered on 09/17/16 20:14 ; Admin Dose 40 MG; Start 09/09/16 at 21:00 Benzonatate (Tessalon) 100 mg Q6 PO Last administered on 09/18/16 05:54; Admin Dose 100 MG; Start 09/10/16 at 00:00 Cinacalcet (Sensipar) 30 mg DAILY PO Last administered on 09/18/16 09:28; Admin Dose 30 MG; Start 09/10/16 at 09:00 Diltiazem HCl (Cardizem Sr) 60 mg Q12 PO Last administered on 09/18/16 09:29; Admin Dose 60 MG; Start 09/09/16 at 21:00 Furosemide (Lasix) 80 mg DAILY PO Last administered on 09/18/16 09:30; Admin Dose 80 MG; Start 09/10/16 at 09:00 Losartan Potassium (Cozaar) 50 mg BID PO Last administered on 09/18/16 09:28; Admin Dose 50 MG; Start 09/09/16 at 21:00 Montelukast Sodium (Singulair) 10 mg QAM PO Last administered on 09/18/16 09:28 ; Admin Dose 10 MG; Start 09/10/16 at 09:00 Pyridoxine HCl (Vitamin B6) 50 mg DAILY PO Last administered on 09/18/16 09:28 ; Admin Dose 50 MG; Start 09/10/16 at 09:00 Tiotropium [place] (Spiriva) 1 inh DAILY INH Last administered on 09/18/16 09: 27; Admin Dose 1 INH; Start 09/10/16 at 09:00 Salmeterol Xinafoate/ Fluticasone (Advair 250/50 Diskus) 1 inh BID INH Last administered on 09/18/16 09:27; Admin Dose 1 INH; Start 09/09/16 at 21:00 Pantoprazole (Protonix Tab) 40 mg DAILY@06 PO Last administered on 09/18/16 05: 54; Admin Dose 40 MG; Start 09/10/16 at 06:00 Miscellaneous Information 1 ea NOTE XX ; Start 09/09/16 at 20:30 Glucose (Glutose) 15 gm Q15M PRN PO DECREASED GLUCOSE; Start 09/09/16 at 20:30 Glucose (Glutose) 22.5 gm Q15M PRN PO DECREASED GLUCOSE; Start 09/09/16 at 20: 31 Dextrose (D50w Syringe) 25 ml Q15M PRN IV DECREASED GLUCOSE Last administered on 09/15/16 08:20; Admin Dose 25 ML; Start 09/09/16 at 20:30 Dextrose (D50w Syringe) 50 ml Q15M PRN IV DECREASED GLUCOSE; Start 09/09/16 at 20:30 Glucagon (Glucagen) 1 mg Q15M PRN IM DECREASED GLUCOSE; Start 09/09/16 at 20:30 Glucose (Glutose) 15 gm Q15M PRN BUCCAL DECREASED GLUCOSE; Start 09/09/16 at 20 :30 Collagenase (Santyl) 1 applic DAILY TOP Last administered on 09/18/16 09:30; Admin Dose 1 APPLIC; Start 09/10/16 at 21:00 Metoprolol Succinate (Toprol Xl) 100 mg DAILY PO Last administered on 09/18/16 09:29; Admin Dose 100 MG; Start 09/13/16 at 09:00 Epoetin Hang (Epogen (Esrd)) 10,000 units MoWeFr@17 SC Last administered on 09/17 17:18; Admin Dose 10,000 UNITS; Start 09/13/16 at 17:00 Oxycodone/ Acetaminophen (Endocet (10/ 325)) 1 tab Q6H PRN PO PAIN Last administered on 09/18/16 09:33; Admin Dose 1 TAB; Start 09/13/16 at 11:00 Nicotine (Nicoderm 21 Mg/ 24hr) 1 patch DAILY TRANSDERM Last administered on 09:26; Admin Dose 1 PATCH; Start 09/13/16 at 13:00 Insulin Detemir (Levemir) 95 unit QHS SC Last administered on 09/17/16 20:30; Admin Dose 95 UNIT; Start 09/17/16 at 21:00 FOUZIA CHAMPION MD September 18, 2016 10:04
--- NOTE | 2016-09-18 10:11 | PN ---
Date/Time of Note Date/Time of Note DATE: 09/18/16 TIME: 10:10 Assessment/Plan VTE Prophylaxis VTE Prophylaxis Intervention: other (eLIQUIS) Lines/Catheters IV Catheter Type (from Nrsg): Saline Lock Assessment/Plan Assessment/Plan IMPRESSION: 1. Uncontrolled diabetes: improved 2. Extensive thigh wound, status post debridement. Continue wound care. 3. Patient is waiting for a wound VAC. 4. End-stage renal failure on hemodialysis. 5. Probable underlying obstructive sleep apnea. PLAN: 1. Continue wound care pending wound VAC. When wound VAC is available, patient can be discharged home. 2. Continue endocrinology recommendations. 3. Continue current antibiotics. 4. Vascular surgery recommendations. 5. Hemodialysis per Dr. Masood Rolon. Exam/Review of Systems Vital Signs Vitals Vital Signs Date Time Temp Pulse Resp B/P Pulse Ox O2 Delivery O2 Flow Rate FiO2 09/18/16 08:07 98.1 124 16 124/66 93 09/15/16 14:20 Room Air Intake and Output 09/17/16 09/17/16 09/18/16 15:00 23:00 07:00 Intake Total 960 ml 550 ml Balance 960 ml 550 ml Exam GENERAL: Well-nourished well-developed lady comfortable at rest no acute distress NECK: Supple. No JVD or lymphadenopathy. CARDIAC EXAM: S1, S2. No added sounds or murmurs. CHEST: clear bilaterally, No added sounds, rales or wheezes ABDOMEN: Soft, nontender. No guarding or rebound. EXTREMITIES: No cyanosis, clubbing or edema. NEUROLOGIC: No focal deficits. Results Result Diagram: 09/17/16 0630 09/17/16 0630 Results 24 hrs Laboratory Tests Test 09/17/16 11:28 09/17/16 17:13 09/17/16 20:20 09/18/16 02:26 Bedside Glucose 261 H 234 H 272 H 184 Test 09/18/16 05:58 09/18/16 08:21 Random Vancomycin Level 12.6 Bedside Glucose 161 Medications Medications Current Medications Ondansetron HCl (Zofran Inj) 4 mg Q6H PRN IV NAUSEA AND/OR VOMITING; Start at 19:30 Acetaminophen (Tylenol Tab) 650 mg Q6H PRN PO PAIN LEVEL 1-3 OR FEVER; Start at 19:30 Morphine Sulfate (morphine) 2 mg Q4H PRN IV SEVERE PAIN LEVEL 7-10 Last administered on 09/18/16 06:26; Admin Dose 2 MG; Start 09/09/16 at 19:30 Docusate Sodium (Colace) 100 mg Q12H PRN PO CONSTIPATION; Start 09/09/16 at 19: 30 Zolpidem Tartrate 5 mg 5 mg QHS PRN PO SLEEP Last administered on 09/18/16 00: 05; Admin Dose 5 MG; Start 09/09/16 at 19:30 Ceftriaxone Sodium (Rocephin) 50 ml @ 100 mls/hr Q24H IVPB Last administered on 09/17/16 23:04; Admin Dose 100 MLS/HR; Start 09/09/16 at 21:30 Albuterol (Ventolin Hfa) 2 puff Q4H PRN INH WHEEZING AND SOB; Start 09/09/16 at 19:30 Apixaban (Eliquis) 5 mg BID PO Last administered on 09/18/16 09:28; Admin Dose 5 MG; Start 09/09/16 at 21:00 Aspirin (Aspirin) 81 mg DAILY PO Last administered on 09/18/16 09:28; Admin Dose 81 MG; Start 09/10/16 at 09:00 Atorvastatin Calcium (Lipitor) 40 mg QHS PO Last administered on 09/17/16 20:14 ; Admin Dose 40 MG; Start 09/09/16 at 21:00 Benzonatate (Tessalon) 100 mg Q6 PO Last administered on 09/18/16 05:54; Admin Dose 100 MG; Start 09/10/16 at 00:00 Cinacalcet (Sensipar) 30 mg DAILY PO Last administered on 09/18/16 09:28; Admin Dose 30 MG; Start 09/10/16 at 09:00 Diltiazem HCl (Cardizem Sr) 60 mg Q12 PO Last administered on 09/18/16 09:29; Admin Dose 60 MG; Start 09/09/16 at 21:00 Furosemide (Lasix) 80 mg DAILY PO Last administered on 09/18/16 09:30; Admin Dose 80 MG; Start 09/10/16 at 09:00 Losartan Potassium (Cozaar) 50 mg BID PO Last administered on 09/18/16 09:28; Admin Dose 50 MG; Start 09/09/16 at 21:00 Montelukast Sodium (Singulair) 10 mg QAM PO Last administered on 09/18/16 09:28 ; Admin Dose 10 MG; Start 09/10/16 at 09:00 Pyridoxine HCl (Vitamin B6) 50 mg DAILY PO Last administered on 09/18/16 09:28 ; Admin Dose 50 MG; Start 09/10/16 at 09:00 Tiotropium [place] (Spiriva) 1 inh DAILY INH Last administered on 09/18/16 09: 27; Admin Dose 1 INH; Start 09/10/16 at 09:00 Salmeterol Xinafoate/ Fluticasone (Advair 250/50 Diskus) 1 inh BID INH Last administered on 09/18/16 09:27; Admin Dose 1 INH; Start 09/09/16 at 21:00 Pantoprazole (Protonix Tab) 40 mg DAILY@06 PO Last administered on 09/18/16 05: 54; Admin Dose 40 MG; Start 09/10/16 at 06:00 Miscellaneous Information 1 ea NOTE XX ; Start 09/09/16 at 20:30 Glucose (Glutose) 15 gm Q15M PRN PO DECREASED GLUCOSE; Start 09/09/16 at 20:30 Glucose (Glutose) 22.5 gm Q15M PRN PO DECREASED GLUCOSE; Start 09/09/16 at 20: 31 Dextrose (D50w Syringe) 25 ml Q15M PRN IV DECREASED GLUCOSE Last administered on 09/15/16 08:20; Admin Dose 25 ML; Start 09/09/16 at 20:30 Dextrose (D50w Syringe) 50 ml Q15M PRN IV DECREASED GLUCOSE; Start 09/09/16 at 20:30 Glucagon (Glucagen) 1 mg Q15M PRN IM DECREASED GLUCOSE; Start 09/09/16 at 20:30 Glucose (Glutose) 15 gm Q15M PRN BUCCAL DECREASED GLUCOSE; Start 09/09/16 at 20 :30 Collagenase (Santyl) 1 applic DAILY TOP Last administered on 09/18/16 09:30; Admin Dose 1 APPLIC; Start 09/10/16 at 21:00 Metoprolol Succinate (Toprol Xl) 100 mg DAILY PO Last administered on 09/18/16 09:29; Admin Dose 100 MG; Start 09/13/16 at 09:00 Epoetin Hang (Epogen (Esrd)) 10,000 units MoWeFr@17 SC Last administered on 09/17 17:18; Admin Dose 10,000 UNITS; Start 09/13/16 at 17:00 Oxycodone/ Acetaminophen (Endocet (10/ 325)) 1 tab Q6H PRN PO PAIN Last administered on 09/18/16 09:33; Admin Dose 1 TAB; Start 09/13/16 at 11:00 Nicotine (Nicoderm 21 Mg/ 24hr) 1 patch DAILY TRANSDERM Last administered on 09:26; Admin Dose 1 PATCH; Start 09/13/16 at 13:00 Insulin Detemir (Levemir) 95 unit QHS SC Last administered on 09/17/16 20:30; Admin Dose 95 UNIT; Start 09/17/16 at 21:00 WILLIAM CLARK September 18, 2016 10:11
[2016-09-18] MEDS ORDERED: VANCOMYCIN 1 GM in NS 250 ML IVPB SCH (12:00)
[2016-09-18] MEDS: CEFTRIAXONE 1 GM/50 ML (PMX) 50 ML IVPB SCH (21:11)
[2016-09-18] MEDS: ATORVASTATIN 40 MG TAB PO SCH (21:12)
[2016-09-18] MEDS: INSULIN DETEMIR [LEVEMIR] 3ML CART SC SCH (21:28)
[2016-09-18] MEDS ORDERED: INSULIN ASPART [NOVOLOG] 3 ML PEN SC ONE (22:00)
[2016-09-19] VITALS (12 sets, daily range): BP systolic 105–128; BP diastolic 53–80; PULSE 95–132; RESP 16–20
[2016-09-19] MEDS: BENZONATATE 100 MG CAP PO SCH ×4 (00:11→17:18)
[2016-09-19] MEDS: morphine 2 MG INJ IV PRN (00:33)
[2016-09-19] MEDS: ZOLPIDEM 5 MG TAB PO PRN (01:24)
[2016-09-19] MEDS: OXYCODONE/ACETAMINOPHEN (10/325) TAB PO PRN ×2 (03:54→20:16)
[2016-09-19] MEDS: PANTOPRAZOLE (EC) 40 MG TAB PO SCH (06:23)
[2016-09-19] MEDS: ASPIRIN 81 MG TAB PO SCH (08:12)
[2016-09-19] MEDS: SALMETEROL/FLUTICASONE 250/50 INHA INH SCH ×2 (08:12→20:13)
[2016-09-19] MEDS: TIOTROPIUM 18 MCG CAPSULE INHA DEV INH SCH (08:13)
[2016-09-19] MEDS: MONTELUKAST 10 MG TAB PO SCH (08:13)
[2016-09-19] MEDS: CINACALCET 30 MG TAB PO SCH (08:13)
[2016-09-19] MEDS: METOCLOPRAMIDE 5 MG TAB PO SCH ×3 (08:13→17:17)
[2016-09-19] MEDS: CALCIUM ACETATE 667 MG CAP PO SCH ×3 (08:13→17:18)
[2016-09-19] MEDS: PYRIDOXINE 50 MG TAB PO SCH (08:13)
[2016-09-19] MEDS: APIXABAN 5 MG TABLET PO SCH ×2 (08:13→20:14)
[2016-09-19] MEDS: DILTIAZEM (SR) 60 MG CAP PO SCH (08:19)
[2016-09-19] MEDS: FUROSEMIDE 40 MG TAB PO SCH (08:20)
[2016-09-19] MEDS: LOSARTAN 50 MG TAB PO SCH ×2 (08:20→20:16)
[2016-09-19] MEDS: METOPROLOL (XL) 50 MG TAB PO SCH (08:20)
[2016-09-19] MEDS: INSULIN ASPART [NOVOLOG] 3 ML PEN SC SCH ×7 (08:22→20:28)
[2016-09-19] MEDS: NICOTINE (21 MG/24 HR) PATCH TRANSDERM SCH (08:22)
[2016-09-19] MEDS: COLLAGENASE 30 GM TUBE TOP SCH (08:22)
--- NOTE | 2016-09-19 13:15 | CONS ---
Date/Time of Note Date/Time of Note DATE: 09/19/16 TIME: 13:14 Assessment/Plan Assessment/Plan Chief Complaint/Hosp Course 7-year-old female with a history of diabetes mellitus type 2 on long- term insulin treatment. In the past when her kidneys had been in better condition she was combo using Januvia with her insulin. She reports that from her view of the world this was a dangerous combination as a cause her sugars to drop rather significantly. She did not have abdominal pain or pancreatitis. Because this she opts not to take an oral medication for her diabetes mellitus type 2 Problems: (1) Essential hypertension Status: Chronic Comment: Adequate control. (2) Diabetes mellitus type 2 in obese Status: Chronic Comment: Blood sugar control is better. She would do well to use combination therapy however she wishes to go with insulin only at this time (3) Obesity (BMI 30.0-34.9) Status: Chronic Comment: Counseled. I discussed the possibility of sleep apnea with her she says that she would not wear CPAP under any circumstance Consultation Date/Type/Reason Admit Date/Time Sep 09, 2016 at 17:15 Initial Consult Date 09/16/16 Type of Consultation: Endocrinology Referring Provider: REY CARTAGENA MD, [facility] 24 HR Interval Summary Free Text/Dictation Patient reports she is generally doing well. Exam/Review of Systems Vital Signs Vitals Vital Signs Date Time Temp Pulse Resp B/P Pulse Ox O2 Delivery O2 Flow Rate FiO2 09/19/16 12:18 98.1 111 18 106/55 90 09/19/16 08:00 Room Air Intake and Output 09/18/16 09/18/16 09/19/16 15:00 23:00 07:00 Intake Total 1250 ml 350 ml Output Total 3500 ml Balance -2250 ml 350 ml Exam Constitutional: alert, oriented Respiratory: clear to auscultation, normal air movement Cardiovascular: irregular rhythm, nl pulses Results Result Diagram: 09/17/16 0630 09/17/16 0630 Results 24 hrs Laboratory Tests Test 09/18/16 17:39 09/18/16 21:09 09/18/16 22:53 09/19/16 08:11 Bedside Glucose 246 H 332 H 277 H 158 Test 09/19/16 12:23 Bedside Glucose 204 Medications Medications Current Medications Ondansetron HCl (Zofran Inj) 4 mg Q6H PRN IV NAUSEA AND/OR VOMITING; Start at 19:30 Acetaminophen (Tylenol Tab) 650 mg Q6H PRN PO PAIN LEVEL 1-3 OR FEVER; Start at 19:30 Morphine Sulfate (morphine) 2 mg Q4H PRN IV SEVERE PAIN LEVEL 7-10 Last administered on 09/19/16 00:33; Admin Dose 2 MG; Start 09/09/16 at 19:30 Docusate Sodium (Colace) 100 mg Q12H PRN PO CONSTIPATION; Start 09/09/16 at 19: 30 Zolpidem Tartrate 5 mg 5 mg QHS PRN PO SLEEP Last administered on 09/19/16 01: 24; Admin Dose 5 MG; Start 09/09/16 at 19:30 Ceftriaxone Sodium (Rocephin) 50 ml @ 100 mls/hr Q24H IVPB Last administered on 09/18/16 21:11; Admin Dose 100 MLS/HR; Start 09/09/16 at 21:30 Albuterol (Ventolin Hfa) 2 puff Q4H PRN INH WHEEZING AND SOB; Start 09/09/16 at 19:30 Apixaban (Eliquis) 5 mg BID PO Last administered on 09/19/16 08:13; Admin Dose 5 MG; Start 09/09/16 at 21:00 Aspirin (Aspirin) 81 mg DAILY PO Last administered on 09/19/16 08:12; Admin Dose 81 MG; Start 09/10/16 at 09:00 Atorvastatin Calcium (Lipitor) 40 mg QHS PO Last administered on 09/18/16 21:12 ; Admin Dose 40 MG; Start 09/09/16 at 21:00 Benzonatate (Tessalon) 100 mg Q6 PO Last administered on 09/19/16 12:22; Admin Dose 100 MG; Start 09/10/16 at 00:00 Cinacalcet (Sensipar) 30 mg DAILY PO Last administered on 09/19/16 08:13; Admin Dose 30 MG; Start 09/10/16 at 09:00 Diltiazem HCl (Cardizem Sr) 60 mg Q12 PO Last administered on 09/19/16 08:19; Admin Dose 60 MG; Start 09/09/16 at 21:00 Furosemide (Lasix) 80 mg DAILY PO Last administered on 09/19/16 08:20; Admin Dose 80 MG; Start 09/10/16 at 09:00 Losartan Potassium (Cozaar) 50 mg BID PO Last administered on 09/19/16 08:20; Admin Dose 50 MG; Start 09/09/16 at 21:00 Montelukast Sodium (Singulair) 10 mg QAM PO Last administered on 09/19/16 08:13 ; Admin Dose 10 MG; Start 09/10/16 at 09:00 Pyridoxine HCl (Vitamin B6) 50 mg DAILY PO Last administered on 09/19/16 08:13 ; Admin Dose 50 MG; Start 09/10/16 at 09:00 Tiotropium [place] (Spiriva) 1 inh DAILY INH Last administered on 09/19/16 08: 13; Admin Dose 1 INH; Start 09/10/16 at 09:00 Salmeterol Xinafoate/ Fluticasone (Advair 250/50 Diskus) 1 inh BID INH Last administered on 09/19/16 08:12; Admin Dose 1 INH; Start 09/09/16 at 21:00 Pantoprazole (Protonix Tab) 40 mg DAILY@06 PO Last administered on 09/19/16 06: 23; Admin Dose 40 MG; Start 09/10/16 at 06:00 Miscellaneous Information 1 ea NOTE XX ; Start 09/09/16 at 20:30 Glucose (Glutose) 15 gm Q15M PRN PO DECREASED GLUCOSE; Start 09/09/16 at 20:30 Glucose (Glutose) 22.5 gm Q15M PRN PO DECREASED GLUCOSE; Start 09/09/16 at 20: 31 Dextrose (D50w Syringe) 25 ml Q15M PRN IV DECREASED GLUCOSE Last administered on 09/15/16 08:20; Admin Dose 25 ML; Start 09/09/16 at 20:30 Dextrose (D50w Syringe) 50 ml Q15M PRN IV DECREASED GLUCOSE; Start 09/09/16 at 20:30 Glucagon (Glucagen) 1 mg Q15M PRN IM DECREASED GLUCOSE; Start 09/09/16 at 20:30 Glucose (Glutose) 15 gm Q15M PRN BUCCAL DECREASED GLUCOSE; Start 09/09/16 at 20 :30 Collagenase (Santyl) 1 applic DAILY TOP Last administered on 09/19/16 08:22; Admin Dose 1 APPLIC; Start 09/10/16 at 21:00 Metoprolol Succinate (Toprol Xl) 100 mg DAILY PO Last administered on 09/19/16 08:20; Admin Dose 100 MG; Start 09/13/16 at 09:00 Epoetin Hang (Epogen (Esrd)) 10,000 units MoWeFr@17 SC Last administered on 09/17 17:18; Admin Dose 10,000 UNITS; Start 09/13/16 at 17:00 Oxycodone/ Acetaminophen (Endocet ()) 1 tab Q6H PRN PO PAIN Last administered on 09/19/16 03:54; Admin Dose 1 TAB; Start 09/13/16 at 11:00 Nicotine (Nicoderm 21 Mg/ 24hr) 1 patch DAILY TRANSDERM Last administered on 08:22; Admin Dose 1 PATCH; Start 09/13/16 at 13:00 Insulin Detemir 95 unit 95 unit QHS SC Last administered on 09/18/16 21:28; Admin Dose 95 UNIT; Start 09/17/16 at 21:00 Vancomycin HCl (Vancocin) 250 ml @ 125 mls/hr Q96H IVPB Last administered on 12:08; Admin Dose 125 MLS/HR; Start 09/18/16 at 12:00 FOUZIA CHAMPION MD September 19, 2016 13:15
--- NOTE | 2016-09-19 16:26 | PN ---
Date/Time of Note Date/Time of Note DATE: 09/19/16 TIME: 16:22 Assessment/Plan VTE Prophylaxis VTE Prophylaxis Intervention: other (eliquis) Lines/Catheters IV Catheter Type (from Nrs): Saline Lock Assessment/Plan Assessment/Plan IMPRESSION: 1. Uncontrolled diabetes: improved 2. Extensive thigh wound, status post debridement. Continue wound care. 3. Patient is waiting for a wound VAC. 4. End-stage renal failure on hemodialysis. 5. Probable underlying obstructive sleep apnea. 6. Chronic AFib with poor rate control on cardizem and metoprolol PLAN: 1. Continue wound care pending wound VAC. When wound VAC is available, patient can be discharged home. 2. Continue endocrinology recommendations. 3. Continue current antibiotics. 4. Vascular surgery recommendations. 5. Hemodialysis per Dr. Masood Rolon. 6. Will give IV amiodarone x1 and then po daily as BP is already on the low side since patient refused cardio review. 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 I informed her her rate was uncontrolled, but she still refused. Exam/Review of Systems Vital Signs Vitals Vital Signs Date Time Temp Pulse Resp B/P Pulse Ox O2 Delivery O2 Flow Rate FiO2 09/19/16 16:04 98.3 125 16 125/69 92 09/19/16 08:00 Room Air Intake and Output 09/18/16 09/18/16 09/19/16 15:00 23:00 07:00 Intake Total 1250 ml 350 ml Output Total 3500 ml Balance -2250 ml 350 ml Exam GENERAL: alert / oriented x3/ obese comfortable at rest no acute distress NECK: Supple. No JVD or lymphadenopathy. CARDIAC EXAM: irregularly irregular , S1, S2. No added sounds or murmurs. CHEST: clear bilaterally, No added sounds, rales or wheezes ABDOMEN: Soft, nontender. No guarding or rebound. EXTREMITIES: No cyanosis, clubbing or edema. NEUROLOGIC: No focal deficits. Results Result Diagram: 09/17/16 0630 09/17/16 0630 Results 24 hrs Laboratory Tests Test 09/18/16 17:39 09/18/16 21:09 09/18/16 22:53 09/19/16 08:11 Bedside Glucose 246 H 332 H 277 H 158 Test 09/19/16 12:23 Bedside Glucose 204 Medications Medications Current Medications Ondansetron HCl (Zofran Inj) 4 mg Q6H PRN IV NAUSEA AND/OR VOMITING; Start at 19:30 Acetaminophen (Tylenol Tab) 650 mg Q6H PRN PO PAIN LEVEL 1-3 OR FEVER; Start at 19:30 Morphine Sulfate (morphine) 2 mg Q4H PRN IV SEVERE PAIN LEVEL 7-10 Last administered on 09/19/16 00:33; Admin Dose 2 MG; Start 09/09/16 at 19:30 Docusate Sodium (Colace) 100 mg Q12H PRN PO CONSTIPATION; Start 09/09/16 at 19: 30 Zolpidem Tartrate 5 mg 5 mg QHS PRN PO SLEEP Last administered on 09/19/16 01: 24; Admin Dose 5 MG; Start 09/09/16 at 19:30 Ceftriaxone Sodium (Rocephin) 50 ml @ 100 mls/hr Q24H IVPB Last administered on 09/18/16 21:11; Admin Dose 100 MLS/HR; Start 09/09/16 at 21:30 Albuterol (Ventolin Hfa) 2 puff Q4H PRN INH WHEEZING AND SOB; Start 09/09/16 at 19:30 Apixaban (Eliquis) 5 mg BID PO Last administered on 09/19/16 08:13; Admin Dose 5 MG; Start 09/09/16 at 21:00 Aspirin (Aspirin) 81 mg DAILY PO Last administered on 09/19/16 08:12; Admin Dose 81 MG; Start 09/10/16 at 09:00 Atorvastatin Calcium (Lipitor) 40 mg QHS PO Last administered on 09/18/16 21:12 ; Admin Dose 40 MG; Start 09/09/16 at 21:00 Benzonatate (Tessalon) 100 mg Q6 PO Last administered on 09/19/16 12:22; Admin Dose 100 MG; Start 09/10/16 at 00:00 Cinacalcet (Sensipar) 30 mg DAILY PO Last administered on 09/19/16 08:13; Admin Dose 30 MG; Start 09/10/16 at 09:00 Diltiazem HCl (Cardizem Sr) 60 mg Q12 PO Last administered on 09/19/16 08:19; Admin Dose 60 MG; Start 09/09/16 at 21:00 Furosemide (Lasix) 80 mg DAILY PO Last administered on 09/19/16 08:20; Admin Dose 80 MG; Start 09/10/16 at 09:00 Losartan Potassium (Cozaar) 50 mg BID PO Last administered on 09/19/16 08:20; Admin Dose 50 MG; Start 09/09/16 at 21:00 Montelukast Sodium (Singulair) 10 mg QAM PO Last administered on 09/19/16 08:13 ; Admin Dose 10 MG; Start 09/10/16 at 09:00 Pyridoxine HCl (Vitamin B6) 50 mg DAILY PO Last administered on 09/19/16 08:13 ; Admin Dose 50 MG; Start 09/10/16 at 09:00 Tiotropium [place] (Spiriva) 1 inh DAILY INH Last administered on 09/19/16 08: 13; Admin Dose 1 INH; Start 09/10/16 at 09:00 Salmeterol Xinafoate/ Fluticasone (Advair 250/50 Diskus) 1 inh BID INH Last administered on 09/19/16 08:12; Admin Dose 1 INH; Start 09/09/16 at 21:00 Pantoprazole (Protonix Tab) 40 mg DAILY@06 PO Last administered on 09/19/16 06: 23; Admin Dose 40 MG; Start 09/10/16 at 06:00 Miscellaneous Information 1 ea NOTE XX ; Start 09/09/16 at 20:30 Glucose (Glutose) 15 gm Q15M PRN PO DECREASED GLUCOSE; Start 09/09/16 at 20:30 Glucose (Glutose) 22.5 gm Q15M PRN PO DECREASED GLUCOSE; Start 09/09/16 at 20: 31 Dextrose (D50w Syringe) 25 ml Q15M PRN IV DECREASED GLUCOSE Last administered on 09/15/16 08:20; Admin Dose 25 ML; Start 09/09/16 at 20:30 Dextrose (D50w Syringe) 50 ml Q15M PRN IV DECREASED GLUCOSE; Start 09/09/16 at 20:30 Glucagon (Glucagen) 1 mg Q15M PRN IM DECREASED GLUCOSE; Start 09/09/16 at 20:30 Glucose (Glutose) 15 gm Q15M PRN BUCCAL DECREASED GLUCOSE; Start 09/09/16 at 20 :30 Collagenase (Santyl) 1 applic DAILY TOP Last administered on 09/19/16 08:22; Admin Dose 1 APPLIC; Start 09/10/16 at 21:00 Metoprolol Succinate (Toprol Xl) 100 mg DAILY PO Last administered on 09/19/16 08:20; Admin Dose 100 MG; Start 09/13/16 at 09:00 Epoetin Hang (Epogen (Esrd)) 10,000 units MoWeFr@17 SC Last administered on 09/17 17:18; Admin Dose 10,000 UNITS; Start 09/13/16 at 17:00 Oxycodone/ Acetaminophen (Endocet (10 325)) 1 tab Q6H PRN PO PAIN Last administered on 09/19/16 03:54; Admin Dose 1 TAB; Start 09/13/16 at 11:00 Nicotine 1 patch 1 patch DAILY TRANSDERM Last administered on 09/19/16 08:22; Admin Dose 1 PATCH; Start 09/13/16 at 13:00 Vancomycin HCl (Vancocin) 250 ml @ 125 mls/hr Q96H IVPB Last administered on 12:08; Admin Dose 125 MLS/HR; Start 09/18/16 at 12:00 Insulin Detemir (Levemir) 96 unit QHS SC ; Start 09/19/16 at 21:00 WILLIAM CLARK September 19, 2016 16:26
[2016-09-19] MEDS ORDERED: AMIODARONE 150 MG INJ IV STA (16:28)
[2016-09-19] MEDS ORDERED: AMIODARONE 150MG/D5W BOLUS 100 ML IV ONE (17:00)
[2016-09-19 19:57] LABS: POTASSIUM 5.1 mmol/L (3.5-5.1)
[2016-09-19 19:59] LABS: CREATININE 4.32 mg/dl (0.44-1.00)
[2016-09-19 20:00] LABS: PHOSPHORUS 4.1 mg/dl (2.5-4.9)
[2016-09-19 20:01] LABS: CALCIUM 9.5 mg/dl (8.4-10.2); MAGNESIUM 2.3 mg/dl (1.7-2.5)
[2016-09-19] MEDS: ATORVASTATIN 40 MG TAB PO SCH (20:13)
[2016-09-19] MEDS: INSULIN DETEMIR [LEVEMIR] 3ML CART SC SCH (20:27)
[2016-09-19] MEDS: CEFTRIAXONE 1 GM/50 ML (PMX) 50 ML IVPB SCH (21:09)
[2016-09-20] VITALS (11 sets, daily range): BP systolic 110–125; BP diastolic 58–66; PULSE 98–122; RESP 18–20
[2016-09-20] MEDS: DILTIAZEM (SR) 60 MG CAP PO SCH ×3 (00:16→20:20)
[2016-09-20] MEDS: BENZONATATE 100 MG CAP PO SCH ×4 (00:16→17:27)
[2016-09-20] MEDS: ZOLPIDEM 5 MG TAB PO PRN (00:38)
[2016-09-20] MEDS: morphine 2 MG INJ IV PRN (00:39)
[2016-09-20] MEDS: OXYCODONE/ACETAMINOPHEN (10/325) TAB PO PRN ×3 (03:18→21:25)
[2016-09-20] MEDS: PANTOPRAZOLE (EC) 40 MG TAB PO SCH (06:07)
[2016-09-20 07:14] LABS: ADD SCAN DIFF NO
[2016-09-20 07:20] LABS: ABNORMAL IP MESSAGE 1; BASOPHIL # 0.1 10^3/ul (0.0-0.1); BASOPHILS % 1.6 % (0.0-2.0); EOSINOPHILS # 0.5 10^3/ul (0.0-0.5); EOSINOPHILS % 5.7 % (0.0-7.0); HEMATOCRIT 26.3 % (37.0-47.0); HEMOGLOBIN 7.8 g/dl (12.0-16.0); LYMPHOCYTES # 1.7 10^3/ul (0.8-2.9); LYMPHOCYTES % 20.3 % (15.0-51.0); MEAN CORPUSCULAR HEMOGLOBIN 31.8 pg (29.0-33.0); MEAN CORPUSCULAR HGB CONC 29.7 g/dl (32.0-37.0); MEAN CORPUSCULAR VOLUME 107.3 fl (82.0-101.0); MEAN PLATELET VOLUME 9.9 fl (7.4-10.4); MONOCYTE # 1.5 10^3/ul (0.3-0.9); MONOCYTES % 17.9 % (0.0-11.0); NEUTROPHIL # 4.5 10^3/ul (1.6-7.5); NEUTROPHILS % 52.7 % (39.0-77.0); PLATELET COUNT 396 10^3/UL (140-415); RED BLOOD COUNT 2.45 10^6/ul (4.20-5.40); RED CELL DISTRIBUTION WIDTH 20.7 % (11.5-14.5); WHITE BLOOD COUNT 8.5 10^3/ul (4.8-10.8)
[2016-09-20 07:46] LABS: CALCIUM 9.5 mg/dl (8.4-10.2); CREATININE 4.61 mg/dl (0.44-1.00); POTASSIUM 5.1 mmol/L (3.5-5.1)
[2016-09-20] MEDS: METOCLOPRAMIDE 5 MG TAB PO SCH ×3 (07:57→17:26)
[2016-09-20] MEDS: CALCIUM ACETATE 667 MG CAP PO SCH ×3 (08:32→17:27)
[2016-09-20] MEDS: SALMETEROL/FLUTICASONE 250/50 INHA INH SCH ×2 (08:45→20:19)
[2016-09-20] MEDS: FUROSEMIDE 40 MG TAB PO SCH (08:46)
[2016-09-20] MEDS: TIOTROPIUM 18 MCG CAPSULE INHA DEV INH SCH (08:46)
[2016-09-20] MEDS: LOSARTAN 50 MG TAB PO SCH ×2 (08:47→20:20)
[2016-09-20] MEDS: ASPIRIN 81 MG TAB PO SCH (08:47)
[2016-09-20] MEDS: APIXABAN 5 MG TABLET PO SCH ×2 (08:48→20:20)
[2016-09-20] MEDS: COLLAGENASE 30 GM TUBE TOP SCH (08:48)
[2016-09-20] MEDS: AMIODARONE 200 MG TAB PO SCH (08:48)
[2016-09-20] MEDS: MONTELUKAST 10 MG TAB PO SCH (08:48)
[2016-09-20] MEDS: PYRIDOXINE 50 MG TAB PO SCH (08:48)
[2016-09-20] MEDS: NICOTINE (21 MG/24 HR) PATCH TRANSDERM SCH (08:49)
[2016-09-20] MEDS: METOPROLOL (XL) 50 MG TAB PO SCH (08:49)
[2016-09-20] MEDS: INSULIN ASPART [NOVOLOG] 3 ML PEN SC SCH ×7 (08:56→20:32)
[2016-09-20] MEDS: CINACALCET 30 MG TAB PO SCH (09:01)
--- NOTE | 2016-09-20 13:11 | PN ---
Date/Time of Note Date/Time of Note DATE: 09/20/16 TIME: 13:06 Assessment/Plan VTE Prophylaxis VTE Prophylaxis Intervention: other (Eliquis) Lines/Catheters IV [facility] Saline Lock Urinary Cath still in place: No Assessment/Plan Chief Complaint/Hosp Course A/P: 61 F with: 1. Uncontrolled diabetes: improved - insulin, Continue endocrinology recommendations. 2. Extensive thigh wound, status post debridement - Continue wound care pending insurance approval for home wound VAC. When this is available, patient can be discharged home. - Vascular surgery recommendations. - Continue current antibiotics. 3. End-stage renal failure on hemodialysis. - Hemodialysis per Dr. Masood Rolon. 4. Probable underlying obstructive sleep apnea. 5. Chronic AFib with poor rate control on cardizem and metoprolol - pt admits to drinking 4-5 cups of coffee daily as well - Continue current meds, Eliquis as well. Problems: Subjective 24 Hr Interval Summary Free Text/Dictation Pt had no acute events overnight, denies cp or palpitations, still awaiting authorization for home wound vac use. Exam/Review of Systems Vital Signs Vitals Vital Signs Date Time Temp Pulse Resp B/P Pulse Ox O2 Delivery O2 Flow Rate FiO2 09/20/16 12:11 122 09/20/16 11:54 97.4 18 110/66 91 09/19/16 08:00 Room Air Intake and Output 09/19/16 09/19/16 09/20/16 15:00 23:00 07:00 Intake Total 1630 ml 350 ml Balance 1630 ml 350 ml Exam GENERAL: alert / oriented x3/ obese comfortable at rest no acute distress NECK: Supple. No JVD or lymphadenopathy. CARDIAC EXAM: irregularly irregular , S1, S2. No added sounds or murmurs. CHEST: clear bilaterally, No added sounds, rales or wheezes ABDOMEN: Soft, nontender. No guarding or rebound. EXTREMITIES: No cyanosis, clubbing or edema. NEUROLOGIC: No focal deficits. Results Result Diagram: 09/20/16 0622 09/20/16 0629 Results 24 hrs Laboratory Tests Test 09/19/16 17:17 09/19/16 19:20 09/19/16 20:11 09/20/16 06:22 Bedside Glucose 153 190 Sodium Level 140 Potassium Level 5.1 Chloride Level 100 Carbon Dioxide Level 29 Anion Gap 16 Blood Urea Nitrogen 44 H Creatinine 4.32 H Glucose Level 159 Calcium Level 9.5 Phosphorus Level 4.1 Magnesium Level 2.3 White Blood Count 8.5 Red Blood Count 2.45 L Hemoglobin 7.8 L Hematocrit 26.3 L Mean Corpuscular Volume 107.3 H Mean Corpuscular Hemoglobin 31.8 Mean Corpuscular Hemoglobin Concent 29.7 L Red Cell Distribution Width 20.7 H Platelet Count 396 Mean Platelet Volume 9.9 Neutrophils % 52.7 Lymphocytes % 20.3 Monocytes % 17.9 H Eosinophils % 5.7 Basophils % 1.6 Nucleated Red Blood Cells % 0.0 Neutrophils # 4.5 Lymphocytes # 1.7 Monocytes # 1.5 H Eosinophils # 0.5 Basophils # 0.1 Nucleated Red Blood Cells # 0.0 Test 09/20/16 06:29 09/20/16 08:06 09/20/16 11:45 Sodium Level 138 Potassium Level 5.1 Chloride Level 103 Carbon Dioxide Level 27 Anion Gap 13 Blood Urea Nitrogen 44 H Creatinine 4.61 H Glucose Level 191 Calcium Level 9.5 Bedside Glucose 166 231 H Medications Medications Current Medications Ondansetron HCl (Zofran Inj) 4 mg Q6H PRN IV NAUSEA AND/OR VOMITING; Start at 19:30 Acetaminophen (Tylenol Tab) 650 mg Q6H PRN PO PAIN LEVEL 1-3 OR FEVER; Start at 19:30 Morphine Sulfate (morphine) 2 mg Q4H PRN IV SEVERE PAIN LEVEL 7-10 Last administered on 09/20/16 00:39; Admin Dose 2 MG; Start 09/09/16 at 19:30 Docusate Sodium (Colace) 100 mg Q12H PRN PO CONSTIPATION; Start 09/09/16 at 19: 30 Zolpidem Tartrate 5 mg 5 mg QHS PRN PO SLEEP Last administered on 09/20/16 00: 38; Admin Dose 5 MG; Start 09/09/16 at 19:30 Ceftriaxone Sodium (Rocephin) 50 ml @ 100 mls/hr Q24H IVPB Last administered on 09/19/16 21:09; Admin Dose 100 MLS/HR; Start 09/09/16 at 21:30 Albuterol (Ventolin Hfa) 2 puff Q4H PRN INH WHEEZING AND SOB; Start 09/09/16 at 19:30 Apixaban (Eliquis) 5 mg BID PO Last administered on 09/20/16 08:48; Admin Dose 5 MG; Start 09/09/16 at 21:00 Aspirin (Aspirin) 81 mg DAILY PO Last administered on 09/20/16 08:47; Admin Dose 81 MG; Start 09/10/16 at 09:00 Atorvastatin Calcium (Lipitor) 40 mg QHS PO Last administered on 09/19/16 20:13 ; Admin Dose 40 MG; Start 09/09/16 at 21:00 Benzonatate (Tessalon) 100 mg Q6 PO Last administered on 09/20/16 11:46; Admin Dose 100 MG; Start 09/10/16 at 00:00 Cinacalcet (Sensipar) 30 mg DAILY PO Last administered on 09/20/16 09:01; Admin Dose 30 MG; Start 09/10/16 at 09:00 Diltiazem HCl (Cardizem Sr) 60 mg Q12 PO Last administered on 09/20/16 08:47; Admin Dose 60 MG; Start 09/09/16 at 21:00 Furosemide (Lasix) 80 mg DAILY PO Last administered on 09/20/16 08:46; Admin Dose 80 MG; Start 09/10/16 at 09:00 Losartan Potassium (Cozaar) 50 mg BID PO Last administered on 09/20/16 08:47; Admin Dose 50 MG; Start 09/09/16 at 21:00 Montelukast Sodium (Singulair) 10 mg QAM PO Last administered on 09/20/16 08:48 ; Admin Dose 10 MG; Start 09/10/16 at 09:00 Pyridoxine HCl (Vitamin B6) 50 mg DAILY PO Last administered on 09/20/16 08:48 ; Admin Dose 50 MG; Start 09/10/16 at 09:00 Tiotropium [place] (Spiriva) 1 inh DAILY INH Last administered on 09/20/16 08: 46; Admin Dose 1 INH; Start 09/10/16 at 09:00 Salmeterol Xinafoate/ Fluticasone (Advair 250/50 Diskus) 1 inh BID INH Last administered on 09/20/16 08:45; Admin Dose 1 INH; Start 09/09/16 at 21:00 Pantoprazole (Protonix Tab) 40 mg DAILY@06 PO Last administered on 09/20/16 06: 07; Admin Dose 40 MG; Start 09/10/16 at 06:00 Miscellaneous Information 1 ea NOTE XX ; Start 09/09/16 at 20:30 Glucose (Glutose) 15 gm Q15M PRN PO DECREASED GLUCOSE; Start 09/09/16 at 20:30 Glucose (Glutose) 22.5 gm Q15M PRN PO DECREASED GLUCOSE; Start 09/09/16 at 20: 31 Dextrose (D50w Syringe) 25 ml Q15M PRN IV DECREASED GLUCOSE Last administered on 09/15/16 08:20; Admin Dose 25 ML; Start 09/09/16 at 20:30 Dextrose (D50w Syringe) 50 ml Q15M PRN IV DECREASED GLUCOSE; Start 09/09/16 at 20:30 Glucagon (Glucagen) 1 mg Q15M PRN IM DECREASED GLUCOSE; Start 09/09/16 at 20:30 Glucose (Glutose) 15 gm Q15M PRN BUCCAL DECREASED GLUCOSE; Start 09/09/16 at 20 :30 Collagenase (Santyl) 1 applic DAILY TOP Last administered on 09/20/16 08:48; Admin Dose 1 APPLIC; Start 09/10/16 at 21:00 Metoprolol Succinate (Toprol Xl) 100 mg DAILY PO Last administered on 09/20/16 08:49; Admin Dose 100 MG; Start 09/13/16 at 09:00 Epoetin Hang (Epogen (Esrd)) 10,000 units MoWeFr@17 SC Last administered on 09/17 17:18; Admin Dose 10,000 UNITS; Start 09/13/16 at 17:00 Oxycodone/ Acetaminophen (Endocet (10/ 325)) 1 tab Q6H PRN PO PAIN Last administered on 09/20/16 03:18; Admin Dose 1 TAB; Start 09/13/16 at 11:00 Nicotine 1 patch 1 patch DAILY TRANSDERM Last administered on 09/20/16 08:49; Admin Dose 1 PATCH; Start 09/13/16 at 13:00 Vancomycin HCl (Vancocin) 250 ml @ 125 mls/hr Q96H IVPB Last administered on 12:08; Admin Dose 125 MLS/HR; Start 09/18/16 at 12:00 Insulin Detemir (Levemir) 96 unit QHS SC Last administered on 09/19/16 20:27; Admin Dose 96 UNIT; Start 09/19/16 at 21:00 Amiodarone HCl (Cordarone) 200 mg DAILY PO Last administered on 09/20/16 08:48 ; Admin Dose 200 MG; Start 09/20/16 at 09:00 ERICK MATOS September 20, 2016 13:11
--- NOTE | 2016-09-20 13:47 | CONS ---
Date/Time of Note Date/Time of Note DATE: 09/20/16 TIME: 13:46 Assessment/Plan Assessment/Plan Chief Complaint/Hosp Course - ESRD on Hemodialysis - Anemia of chronic Disease - Hypertension - Secondary hyperparathyroidism - Hyperphosphatemia - Sepsis due to UTI - Chronic thigh infection - Smoker - CAD PLAN: She is on HD Tuesday - - Tuesday Plan for HD tomorrow Cont. EPOGEN Continue with Sensipar & Her Phos. Binders Nicotine patches ordered Abx per Primary service Waiting for Wound VAC Problems: Consultation Date/Type/Reason Admit Date/Time Sep 09, 2016 at 17:15 Initial Consult Date 09/13/16 Type of Consultation: NEPHROLOGY Reason for Consultation ESRD Referring Provider: [facility]ART[facility]NA [facility] Interval Summary Constitutional: improved, no complaints Exam/Review of Systems Vital Signs Vitals Vital Signs Date Time Temp Pulse Resp B/P Pulse Ox O2 Delivery O2 Flow Rate FiO2 09/20/16 12:11 122 09/20/16 11:54 97.4 18 110/66 91 09/19/16 08:00 Room Air Intake and Output 09/19/16 09/19/16 09/20/16 15:00 23:00 07:00 Intake Total 1630 ml 350 ml Balance 1630 ml 350 ml Exam Constitutional: alert, oriented Respiratory: crackles/rales Cardiovascular: regular rate and rhythm, systolic murmur Gastrointestinal: soft Results Result Diagram: 09/20/16 0622 09/20/16 0629 Results 24 hrs Laboratory Tests Test 09/19/16 17:17 09/19/16 19:20 09/19/16 20:11 09/20/16 06:22 Bedside Glucose 153 190 Sodium Level 140 Potassium Level 5.1 Chloride Level 100 Carbon Dioxide Level 29 Anion Gap 16 Blood Urea Nitrogen 44 H Creatinine 4.32 H Glucose Level 159 Calcium Level 9.5 Phosphorus Level 4.1 Magnesium Level 2.3 White Blood Count 8.5 Red Blood Count 2.45 L Hemoglobin 7.8 L Hematocrit 26.3 L Mean Corpuscular Volume 107.3 H Mean Corpuscular Hemoglobin 31.8 Mean Corpuscular Hemoglobin Concent 29.7 L Red Cell Distribution Width 20.7 H Platelet Count 396 Mean Platelet Volume 9.9 Neutrophils % 52.7 Lymphocytes % 20.3 Monocytes % 17.9 H Eosinophils % 5.7 Basophils % 1.6 Nucleated Red Blood Cells % 0.0 Neutrophils # 4.5 Lymphocytes # 1.7 Monocytes # 1.5 H Eosinophils # 0.5 Basophils # 0.1 Nucleated Red Blood Cells # 0.0 Test 09/20/16 06:29 09/20/16 08:06 09/20/16 11:45 Sodium Level 138 Potassium Level 5.1 Chloride Level 103 Carbon Dioxide Level 27 Anion Gap 13 Blood Urea Nitrogen 44 H Creatinine 4.61 H Glucose Level 191 Calcium Level 9.5 Bedside Glucose 166 231 H Medications Medications Current Medications Ondansetron HCl (Zofran Inj) 4 mg Q6H PRN IV NAUSEA AND/OR VOMITING; Start at 19:30 Acetaminophen (Tylenol Tab) 650 mg Q6H PRN PO PAIN LEVEL 1-3 OR FEVER; Start at 19:30 Morphine Sulfate (morphine) 2 mg Q4H PRN IV SEVERE PAIN LEVEL 7-10 Last administered on 09/20/16 00:39; Admin Dose 2 MG; Start 09/09/16 at 19:30 Docusate Sodium (Colace) 100 mg Q12H PRN PO CONSTIPATION; Start 09/09/16 at 19: 30 Zolpidem Tartrate 5 mg 5 mg QHS PRN PO SLEEP Last administered on 09/20/16 00: 38; Admin Dose 5 MG; Start 09/09/16 at 19:30 Ceftriaxone Sodium (Rocephin) 50 ml @ 100 mls/hr Q24H IVPB Last administered on 09/19/16 21:09; Admin Dose 100 MLS/HR; Start 09/09/16 at 21:30 Albuterol (Ventolin Hfa) 2 puff Q4H PRN INH WHEEZING AND SOB; Start 09/09/16 at 19:30 Apixaban (Eliquis) 5 mg BID PO Last administered on 09/20/16 08:48; Admin Dose 5 MG; Start 09/09/16 at 21:00 Aspirin (Aspirin) 81 mg DAILY PO Last administered on 09/20/16 08:47; Admin Dose 81 MG; Start 09/10/16 at 09:00 Atorvastatin Calcium (Lipitor) 40 mg QHS PO Last administered on 09/19/16 20:13 ; Admin Dose 40 MG; Start 09/09/16 at 21:00 Benzonatate (Tessalon) 100 mg Q6 PO Last administered on 09/20/16 11:46; Admin Dose 100 MG; Start 09/10/16 at 00:00 Cinacalcet (Sensipar) 30 mg DAILY PO Last administered on 09/20/16 09:01; Admin Dose 30 MG; Start 09/10/16 at 09:00 Diltiazem HCl (Cardizem Sr) 60 mg Q12 PO Last administered on 09/20/16 08:47; Admin Dose 60 MG; Start 09/09/16 at 21:00 Furosemide (Lasix) 80 mg DAILY PO Last administered on 09/20/16 08:46; Admin Dose 80 MG; Start 09/10/16 at 09:00 Losartan Potassium (Cozaar) 50 mg BID PO Last administered on 09/20/16 08:47; Admin Dose 50 MG; Start 09/09/16 at 21:00 Montelukast Sodium (Singulair) 10 mg QAM PO Last administered on 09/20/16 08:48 ; Admin Dose 10 MG; Start 09/10/16 at 09:00 Pyridoxine HCl (Vitamin B6) 50 mg DAILY PO Last administered on 09/20/16 08:48 ; Admin Dose 50 MG; Start 09/10/16 at 09:00 Tiotropium [place] (Spiriva) 1 inh DAILY INH Last administered on 09/20/16 08: 46; Admin Dose 1 INH; Start 09/10/16 at 09:00 Salmeterol Xinafoate/ Fluticasone (Advair 250/50 Diskus) 1 inh BID INH Last administered on 09/20/16 08:45; Admin Dose 1 INH; Start 09/09/16 at 21:00 Pantoprazole (Protonix Tab) 40 mg DAILY@06 PO Last administered on 09/20/16 06: 07; Admin Dose 40 MG; Start 09/10/16 at 06:00 Miscellaneous Information 1 ea NOTE XX ; Start 09/09/16 at 20:30 Glucose (Glutose) 15 gm Q15M PRN PO DECREASED GLUCOSE; Start 09/09/16 at 20:30 Glucose (Glutose) 22.5 gm Q15M PRN PO DECREASED GLUCOSE; Start 09/09/16 at 20: 31 Dextrose (D50w Syringe) 25 ml Q15M PRN IV DECREASED GLUCOSE Last administered on 09/15/16 08:20; Admin Dose 25 ML; Start 09/09/16 at 20:30 Dextrose (D50w Syringe) 50 ml Q15M PRN IV DECREASED GLUCOSE; Start 09/09/16 at 20:30 Glucagon (Glucagen) 1 mg Q15M PRN IM DECREASED GLUCOSE; Start 09/09/16 at 20:30 Glucose (Glutose) 15 gm Q15M PRN BUCCAL DECREASED GLUCOSE; Start 09/09/16 at 20 :30 Collagenase (Santyl) 1 applic DAILY TOP Last administered on 09/20/16 08:48; Admin Dose 1 APPLIC; Start 09/10/16 at 21:00 Metoprolol Succinate (Toprol Xl) 100 mg DAILY PO Last administered on 09/20/16 08:49; Admin Dose 100 MG; Start 09/13/16 at 09:00 Epoetin Hang (Epogen (Esrd)) 10,000 units MoWeFr@17 SC Last administered on 09/17 17:18; Admin Dose 10,000 UNITS; Start 09/13/16 at 17:00 Oxycodone/ Acetaminophen (Endocet (10/ 325)) 1 tab Q6H PRN PO PAIN Last administered on 09/20/16 03:18; Admin Dose 1 TAB; Start 09/13/16 at 11:00 Nicotine 1 patch 1 patch DAILY TRANSDERM Last administered on 09/20/16 08:49; Admin Dose 1 PATCH; Start 09/13/16 at 13:00 Vancomycin HCl (Vancocin) 250 ml @ 125 mls/hr Q96H IVPB Last administered on 12:08; Admin Dose 125 MLS/HR; Start 09/18/16 at 12:00 Insulin Detemir (Levemir) 96 unit QHS SC Last administered on 09/19/16 20:27; Admin Dose 96 UNIT; Start 09/19/16 at 21:00 Amiodarone HCl (Cordarone) 200 mg DAILY PO Last administered on 09/20/16 08:48 ; Admin Dose 200 MG; Start 09/20/16 at 09:00 BECKY GAMBLE MD September 20, 2016 13:47
[2016-09-20] MEDS: EPOETIN 10000 UNITS/1 ML INJ (ESRD) SC SCH (17:26)
--- NOTE | 2016-09-20 20:08 | CONS ---
DATE OF ADMISSION: 09/09/2016 DATE OF CONSULTATION: 09/20/2016 TYPE OF CONSULTATION: Infectious disease. REASON FOR CONSULTATION: Antibiotic management. HISTORY OF PRESENT ILLNESS: Jaida Anthony is a 61-year-old female with numerous problems who comes in with left leg weakness and dizziness. Her past problems include: 1. End-stage renal disease on dialysis. 2. Dyslipidemia. 3. Diabetes mellitus. 4. Chronic obstructive pulmonary disease. 5. As well as a wound on her left leg, which has been there for probably a month. 6. She has a history of an MS with congestive heart failure. 7. Atrial fibrillation. 8. She presents with a chief complaint of left leg pain. The pain is the back of her calf. She has a chronic ulcer on the left thigh. She reports feeling s omewhat weak and dizzy. She has a PermCath and history of . PAST MEDICAL HISTORY: Operations as outlined. FAMILY HISTORY: Positive for diabetes. SOCIAL HISTORY: Does not smoke, drink, or abuse drugs. ALLERGIES 1. PENICILLIN. 2. SULFA. 3. CIPRO. MEDICATIONS: Per chart. REVIEW OF SYSTEMS: Noncontributory. PHYSICAL EXAMINATION: GENERAL: The patient is a well-developed, well-nourished female who is awake, responsive, in no acu te distress. VITAL SIGNS: Stable. She is afebrile. SKIN: Without generalized rash. HEENT: Within normal limits. NECK: Supple. LYMPH NODES: None palpable. CHEST: Clear to P and A. HEART: Without murmur or gallop. ABDOMEN: Soft, nontender, nondistended without organosplenomegaly or masses. EXTREMITIES: Without cyanosis, clubbing. She has edema in the left posterior leg. Chronic wound n oted in the left thigh. Ulceration of the left leg as well. RECTAL AND GENITAL: Deferred. NEUROLOGIC: No focal neurological abnormality. HOSPITAL COURSE: On admission, her white count was 16.2, H and H 7.1 and 22.7, platelet count of 60 6. Currently, her white count is 8.5, H and H 7.8 and 26.3, platelet count of 396. BUN and creatin ine are 44/4.32. Urine is negative for nitrite and leukocyte esterase 2+ and urinalysis greater moris n 200 white cells per high-power field, consistent with urinary tract infection. Chest x-ray: Stab le cardiomegaly, mild pulmonary vascular congestion, persistent small left pleural effusion, there i s a removal of dialysis catheter, and atherosclerosis. She had an extremity arterial study from the . Dialysis fistula flow patterns, so she has a dialysis fistula at this point. Microbiology: Left thigh grew out coagulase negative staph on the . Currently, all other cultures are negativ e. Urine had mixed gram-positive organisms. The patient is currently on vancomycin and ceftriaxone . She is a dialysis patient. IMPRESSION AND PLAN: I would continue her on vancomycin and ceftriaxone. I see no problem with thi s regimen. Dictated By: MAJO PARK MD ANKUSH/NTS Conf#: [id number] DID#: [id number] CC: MICHAEL COULTER MD;*EndCC*
[2016-09-20] MEDS: CEFTRIAXONE 1 GM/50 ML (PMX) 50 ML IVPB SCH (20:19)
[2016-09-20] MEDS: ATORVASTATIN 40 MG TAB PO SCH (20:20)
[2016-09-20] MEDS: INSULIN DETEMIR [LEVEMIR] 3ML CART SC SCH (20:32)
[2016-09-21] VITALS (17 sets, daily range): BP systolic 101–138; BP diastolic 49–67; PULSE 85–120; RESP 19–20
[2016-09-21] MEDS: ZOLPIDEM 5 MG TAB PO PRN (00:02)
[2016-09-21] MEDS: BENZONATATE 100 MG CAP PO SCH ×3 (00:02→12:08)
[2016-09-21] MEDS: morphine 2 MG INJ IV PRN ×2 (00:02→10:06)
[2016-09-21] MEDS: PANTOPRAZOLE (EC) 40 MG TAB PO SCH (06:12)
[2016-09-21] MEDS: METOCLOPRAMIDE 5 MG TAB PO SCH ×2 (06:13→12:08)
[2016-09-21] MEDS: OXYCODONE/ACETAMINOPHEN (10/325) TAB PO PRN ×2 (06:17→12:22)
[2016-09-21 07:39] LABS: ADD SCAN DIFF NO; BASOPHIL # 0.1 10^3/ul (0.0-0.1); BASOPHILS % 1.5 % (0.0-2.0); EOSINOPHILS # 0.5 10^3/ul (0.0-0.5); EOSINOPHILS % 5.4 % (0.0-7.0); HEMATOCRIT 26.8 % (37.0-47.0); HEMOGLOBIN 7.8 g/dl (12.0-16.0); LYMPHOCYTES # 1.6 10^3/ul (0.8-2.9); MEAN CORPUSCULAR HEMOGLOBIN 31.2 pg (29.0-33.0); MEAN CORPUSCULAR HGB CONC 29.1 g/dl (32.0-37.0); MEAN CORPUSCULAR VOLUME 107.2 fl (82.0-101.0); MEAN PLATELET VOLUME 9.8 fl (7.4-10.4); MONOCYTE # 1.5 10^3/ul (0.3-0.9); MONOCYTES % 17.5 % (0.0-11.0); NEUTROPHIL # 4.7 10^3/ul (1.6-7.5); NEUTROPHILS % 55.6 % (39.0-77.0); PLATELET COUNT 363 10^3/UL (140-415); RED CELL DISTRIBUTION WIDTH 20.4 % (11.5-14.5); WHITE BLOOD COUNT 8.4 10^3/ul (4.8-10.8)
[2016-09-21] MEDS: CALCIUM ACETATE 667 MG CAP PO SCH ×2 (08:00→12:08)
[2016-09-21 08:09] LABS: CALCIUM 9.5 mg/dl (8.4-10.2); CREATININE 5.2 mg/dl (0.44-1.00); POTASSIUM 5.4 mmol/L (3.5-5.1)
[2016-09-21] MEDS: SALMETEROL/FLUTICASONE 250/50 INHA INH SCH (08:16)
[2016-09-21] MEDS: TIOTROPIUM 18 MCG CAPSULE INHA DEV INH SCH (08:17)
[2016-09-21] MEDS: NICOTINE (21 MG/24 HR) PATCH TRANSDERM SCH (08:17)
[2016-09-21] MEDS: INSULIN ASPART [NOVOLOG] 3 ML PEN SC SCH ×4 (08:19→12:13)
[2016-09-21] MEDS: AMIODARONE 200 MG TAB PO SCH ×2 (08:23→12:09)
[2016-09-21] MEDS: DILTIAZEM (SR) 60 MG CAP PO SCH ×2 (08:23→12:10)
[2016-09-21] MEDS: ASPIRIN 81 MG TAB PO SCH ×2 (08:23→12:08)
[2016-09-21] MEDS: CINACALCET 30 MG TAB PO SCH (08:24)
[2016-09-21] MEDS: PYRIDOXINE 50 MG TAB PO SCH ×2 (08:24→12:08)
[2016-09-21] MEDS: METOPROLOL (XL) 50 MG TAB PO SCH ×2 (08:24→12:10)
[2016-09-21] MEDS: MONTELUKAST 10 MG TAB PO SCH ×2 (08:24→12:08)
[2016-09-21] MEDS: LOSARTAN 50 MG TAB PO SCH (08:24)
[2016-09-21] MEDS: APIXABAN 5 MG TABLET PO SCH ×2 (08:24→12:08)
[2016-09-21] MEDS: FUROSEMIDE 40 MG TAB PO SCH (08:24)
[2016-09-21] MEDS: COLLAGENASE 30 GM TUBE TOP SCH (08:25)
--- NOTE | 2016-09-21 09:38 | PN ---
Date/Time of Note Date/Time of Note DATE: 09/21/16 TIME: 09:38 Assessment/Plan Lines/Catheters IV Catheter Type (from [facility]): Saline Lock Whitaker in Place (from [facility]): No Assessment/Plan Chief Complaint/Hosp Course -Bilateral lower extremity atherosclerosis with ulcers: It seems the patient may have a component of mixed disease with arterial insufficiency and venous insufficiency. Upon her noninvasive vascular studies the patient has what seems to be infrapopliteal disease with monophasic flow in her tibials. There is concern that the patient may have diabetic tibioperoneal disease. Upon CT angiography of the lower extremities she has adequate perfusion to her upper leg and should be cleared from vascular standpoint. S/P Debridement VAC placement --Bilateral lower extremity venous insufficiency with ulcers (CEAP classification 6): The patient also has a mixed component of venous disease in light of her bilateral lower extremity atherosclerosis. We will plan to obtain eventual reflux studies as an outpatient, but at the moment apply Santyl medication to her ulcers and plan to apply a 2-layer compression dressings with Kerlix and Antoni wrap -Recommend consulting our wound care management team for compression dressings and vac changes MWF -Optimize vascular status (BP meds, diet, nutrition, exercise, sugar control, antiplatelets). -Discussed smoking cessation with the patient, would recommend for her to have decrease the amount of cigarettes that she smokes per day, currently a pack and a half. -End-stage renal disease: Although the patient has a functioning fistula; fistula ultrasound demonstrated low flow volume and neointimal hyperplasia in the anastomosis segment. Will schedule her for fistulogram in the near future ( outpatient) -Discussed findings, plan and management with the patient and she understands. -Thank you for allowing us to partake in the care of your patient. Please call with any questions. Problems: Subjective 24 Hr Interval Summary no new vascular events overnight Exam/Review of Systems Vital Signs Vitals Vital Signs Date Time Temp Pulse Resp B/P Pulse Ox O2 Delivery O2 Flow Rate FiO2 09/21/16 08:32 115 09/21/16 07:53 98.2 20 118/58 95 09/19/16 08:00 Room Air Intake and Output 09/20/16 09/20/16 09/21/16 15:00 23:00 07:00 Intake Total 1000 ml 720 ml Balance 1000 ml 720 ml Exam Free Text/Dictation GENERAL: Alert and oriented x3, PULMONARY: Clear to auscultation bilaterally. CARDIOVASCULAR: S1, S2 present. ABDOMEN: Soft, nontender, nondistended. Bowel sounds positive. Truncal obesity, large pannus. EXTREMITIES: -Right lower extremity palpable femoral pulse, nonpalpable pedal pulse. Motor, sensory intact. Cap refill 3 to 4 seconds, edema 1 to 2+. Upper lateral thigh ulcer that is superficial and almost healed. Lower leg with lipodermatosclerosis, spider veins, telangiectasias and also multiple areas of healed ulcers. -Left lower extremity palpable femoral pulse, nonpalpable pedal pulse. Motor, sensory intact. Capillary refill 3 to 4 seconds. Edema 2+. Lateral thigh wound with vac intact and functional. Lower leg with lipodermatosclerosis with multiple ulcers: medial, lateral and bahena ulcers that seem to be superficial with eschar on it as well Results Result Diagram: 09/21/16 0715 09/21/16 0715 MAYLIN BROWN MD September 21, 2016 09:38
--- NOTE | 2016-09-21 11:58 | PDOCDIS ---
Discharge Instructions CONDITION Patient Condition: Stable HOME CARE INSTRUCTIONS: Special Diet: 1800 ADA, 2g NA ACTIVITY: Activity Restrictions: Slowly Increase Activity FOLLOW UP/APPOINTMENTS Appointments Please take your medications as prescribed, and see your doctor in the clinic in 1 week. REFERRALS Agency Name and Phone Number: [facility] [phone] ERICK MATOS September 21, 2016 11:58
[2016-09-21] MEDS ORDERED: DOXY-220 PO (12:04)
--- NOTE | 2016-09-21 12:48 | DS ---
DATE OF ADMISSION: 09/09/2016 DATE OF DISCHARGE: 09/21/2016 HOSPITAL COURSE: The patient came in with left leg weakness and dizziness, and she was admitted. S een by multiple specialists during this hospital stay including vascular surgery team, renal team, i nfectious disease team. She was found with an extensive thigh wound, and she had a debridement proc edure performed which required wound VAC. Specifically, there was a left lower extremity thigh gang renous decubitus ulcer that underwent excisional sharp debridement in the upper thigh area involving the skin and subcutaneous tissue. The patient tolerated the procedure well. Afterwards, she had a wound VAC placed as well. She was placed on IV antibiotics as well. Her surgical biopsy culture c black back positive for coagulase-negative staph. Her urine culture is positive for mixed gram-positi ve organisms, so she was placed on appropriate antibiotics for that. Over the course of her [facility] stay, her leukocytosis improved. She was able to work with physical therapy, ambulate with their assistance, tolerate a p.o. diet. Her antibiotics were tailored due to the infection that she had as well. Her sugars were found to be elevated. She was placed on a high dose insulin regimen. Her A1c was sent out, it was thought to be too high to read. She also continued dialysis by renal team as well as she normally gets dialysis Tuesdays, , and Saturdays. Her vital signs are stab le today. She is able to ambulate and tolerate a p.o. diet and once she gets a wound VAC placed, marleny velazquez will be discharged home today in improved condition. DISCHARGE MEDICATIONS: She will be sent with: 1. Doxycycline 100 mg p.o. b.i.d. for 7 days. 2. ProAir HFA inhaled q.4 hours p.r.n. 3. Amlodipine 5 mg daily. 4. Eliquis 5 mg b.i.d. 5. Aspirin 81 mg daily. 6. Atorvastatin 40 mg at bedtime. 7. Tessalon Perles 100 mg q.6 hours. 8. Symbicort 2 puffs inhaled b.i.d. 9. PhosLo 667 mg with meals. 10. Sensipar 30 mg. 11. Cardizem 60 mg q.12 hours. 12. Lasix 80 mg daily. 13. Levemir 90 units subcutaneous. 14. Losartan 50 mg b.i.d. 15. Reglan 5 mg p.o. with meals. 16. Toprol-XL 50 mg daily. 17. Singulair 10 mg every morning. 18. Prilosec 40 mg daily. 19. Percocet 10/325 q.6h. p.r.n. 20. Pyridium 50 mg daily. 21. Spiriva 18 mcg inhaled capsule daily. 22. Ambien 5 mg at bedtime p.r.n. FOLLOWUP: She can follow up with primary care doctor in the clinic in the next 1 to 2 weeks. FINAL DIAGNOSES: 1. Left lower extremity thigh gangrenous decubitus ulcer status post debridement. 2. Uncontrolled diabetes type 2, on insulin. 3. Peripheral vascular disease. 4. Bilateral lower extremity atherosclerosis with ulcers 5. Bilateral lower extremity venous insufficiency with ulcers. 6. End-stage renal disease, on dialysis. 7. Positive smoking history, discuss about cessation. 8. Chronic atrial fibrillation, rate controlled. 9. Probable underlying obstructive sleep apnea. Time spent discharging patient, 50 minutes. Dictated By: ERICK GUZMAN Conf#: [id number] DID#: [id number]
--- NOTE | 2016-09-21 14:04 | PN ---
DATE: 09/21/2016 INFECTIOUS DISEASE PROGRESS NOTE SUBJECTIVE: No acute changes overnight. The patient had dialysis earlier today. She is awake, loo ks comfortable, denies pain, discomfort. No fevers. LABORATORY DATA: WBC 8.4, platelets 363, no shift, no bands. INDWELLINGS: Left upper extremity AV fistula. ANTIMICROBIALS: The patient is on: 1. IV vancomycin. 2. Rocephin. MICROBIOLOGY: Cultures of left thigh growing coagulase-negative staph species, no anaerobes. Urine culture grew mixed organisms consistent with contaminant. PHYSICAL EXAMINATION: GENERAL: This is a morbidly obese, well-developed, elderly woman who is awake, in no distress. HEENT: Head atraumatic, normocephalic. Sclerae anicteric. Buccal mucosa dry. NECK: Supple. CHEST: Rise symmetrical. Breath sounds clear. HEART: S1, S2. ABDOMEN: Soft, bowel sounds present. EXTREMITIES: Left lower extremity Antoni wrapped with wound VAC present. ASSESSMENT: 1. Left lower extremity cellulitis with bilateral lower extremities chronic venous insufficiency. 2. Diabetes. 3. End-stage renal disease. 4. Positive urinalysis on admission with urine culture showed contaminant. 5. Morbid obesity. 6. Atrial fibrillation. 7. Chronic obstructive pulmonary disease. PLAN: The patient remains stable. Continue present care, antibiotics. Repeat urine culture. Foll ow podiatry and vascular recommendations. Dictated By: TODD RAMIRES FIELD CONTRACTOR for MAJO MATTSON/NTS Conf#: [id number] DID#: [id number]
== END 2016-09-21 16:23 | disposition home health service (06) | DRG 853 ==
LOC: E/R 14:30 → MS2 17:15 → MS4 09-12 13:56
PROVIDERS: ADMIT Internal Medicine; ATTEND Internal Medicine
PROC: 30233N1 Transfusion of Nonautologous Red Blood Cells into Peripheral Vein, Percutaneous Approach (ICD-10-PCS; 2016-09-09)
PROC: 5A1D60Z (ICD-10-PCS; 2016-09-10)
PROC: 0JBM0ZZ Excision of Left Upper Leg Subcutaneous Tissue and Fascia, Open Approach (ICD-10-PCS; 2016-09-15)
PROC: 0JBP0ZZ Excision of Left Lower Leg Subcutaneous Tissue and Fascia, Open Approach (ICD-10-PCS; principal; 2016-09-15 12:30)
DX: A41.9 Sepsis, unspecified organism (principal); N18.6 End stage renal disease; E13.622 Other specified diabetes mellitus with other skin ulcer; N25.81 Secondary hyperparathyroidism of renal origin; I12.0 Hypertensive chronic kidney disease with stage 5 chronic kidney disease or end stage renal disease; N39.0 Urinary tract infection, site not specified; L03.116 Cellulitis of left lower limb; L97.129 Non-pressure chronic ulcer of left thigh with unspecified severity; L97.229 Non-pressure chronic ulcer of left calf with unspecified severity; L97.919 Non-pressure chronic ulcer of unspecified part of right lower leg with unspecified severity; Z79.01 Long term (current) use of anticoagulants; E11.22 Type 2 diabetes mellitus with diabetic chronic kidney disease; E11.65 Type 2 diabetes mellitus with hyperglycemia; D63.1 Anemia in chronic kidney disease; D53.9 Nutritional anemia, unspecified; J44.9 Chronic obstructive pulmonary disease, unspecified; I25.2 Old myocardial infarction; Z99.2 Dependence on renal dialysis; F17.200 Nicotine dependence, unspecified, uncomplicated; I70.241 Atherosclerosis of native arteries of left leg with ulceration of thigh; I70.242 Atherosclerosis of native arteries of left leg with ulceration of calf; I70.239 Atherosclerosis of native arteries of right leg with ulceration of unspecified site; E66.9 Obesity, unspecified; Z68.30 Body mass index [BMI] 30.0-30.9, adult; E65 Localized adiposity; G47.33 Obstructive sleep apnea (adult) (pediatric); I25.10 Atherosclerotic heart disease of native coronary artery without angina pectoris; B95.7 Other staphylococcus as the cause of diseases classified elsewhere
CPT/HCPCS: 36415; 36430; 71010; 75635; 80048; 80053; 80202; 81001; 81003; 82728; 82947; 82962; 83036; 83540; 83690; 83735; 84100; 84484; 85025; 85610; 86850; 86900; 86901; 86920; 87070; 87075; 87081; 87086; 87102; 87116; 90935; 93005; 93922; 93931; 93970; 94644; 96372; 96374; 96375; 97162; J0282; J0610; J0692; J0696; J0886; J1815; J2250; J2270; J2930; J3010; J3370; J7040; J7042; P9016; P9612; Q9967

== ENCOUNTER 2016-10-13 18:35 | Inpatient (IN) | payer OTHER ==
[~2016-10-13] VITALS: Ht 160 cm; Wt 102.0 kg
[~2016-10-13 18:35] MED LIST changes: +APIX5TAB PO; -BUDE6.9H IH; +CALC667T2 PO; -CARI350T29 PO; +DOXY-220 PO; +INSU100I27 SQ; -INSU100V18 SC; -LEVEM SC; -MONT10TA21 PO; +MONT10TA24 PO; +OXYC-209 PO; -OXYC-281 PO; +PYRI50TA14 PO; -TEMA15CA PO; -TEMA15CA6 PO; +TIOT18CA INHALATION; -WARF1TAB47 PO; +ZOLP5TAB7 PO
[2016-10-13 18:46] VITALS: Ht 160 cm; Wt 102.0 kg
[2016-10-13 20:52] LABS: ADD SCAN DIFF NO
[2016-10-13 20:57] LABS: BASOPHIL # 0.1 10^3/ul (0.0-0.1); BASOPHILS % 0.8 % (0.0-2.0); EOSINOPHILS # 0.3 10^3/ul (0.0-0.5); EOSINOPHILS % 3.1 % (0.0-7.0); HEMATOCRIT 28.4 % (37.0-47.0); HEMOGLOBIN 8.7 g/dl (12.0-16.0); LYMPHOCYTES # 1.5 10^3/ul (0.8-2.9); LYMPHOCYTES % 14.8 % (15.0-51.0); MEAN CORPUSCULAR HEMOGLOBIN 31.9 pg (29.0-33.0); MEAN CORPUSCULAR HGB CONC 30.6 g/dl (32.0-37.0); MEAN PLATELET VOLUME 9.5 fl (7.4-10.4); MONOCYTE # 1.1 10^3/ul (0.3-0.9); MONOCYTES % 10.8 % (0.0-11.0); NEUTROPHILS % 69.3 % (39.0-77.0); PLATELET COUNT 306 10^3/UL (140-415); RED BLOOD COUNT 2.73 10^6/ul (4.20-5.40); RED CELL DISTRIBUTION WIDTH 17.9 % (11.5-14.5); WHITE BLOOD COUNT 10.2 10^3/ul (4.8-10.8)
[2016-10-13 21:19] LABS: CALCIUM 8.6 mg/dl (8.4-10.2); CREATININE 5.81 mg/dl (0.44-1.00); POTASSIUM 5.9 mmol/L (3.5-5.1)
--- NOTE | 2016-10-13 21:33 | ERA ---
ER Documentation Chief Complaint Date/Time DATE: 10/13/16 TIME: 21:33 Chief Complaint sent by for left thigh debridement HPI 61-year-old female history of hypertension, diabetes mellitus type 2, end-stage renal disease on dialysis, peripheral vascular disease, chronic atrial fibrillation and left lower extremity thigh gangrenous decubitus status post debridement and wound VAC placement referred to the ED for evaluation and debridement of the wound. Home health nurse change the dressing today and the patient that the wound was necrotic and needed debridement, Dr. Miranda was notified and referred the patient to the ED. patient complains of mild pain to the left thigh with redness that has been stable. Denies fevers or chills. Otherwise asymptomatic. No chest pain or palpitations. No shortness of breath or cough. No abdominal pain, nausea, vomiting, diarrhea or constipation. ROS All systems reviewed and are negative except as per history of present illness. Medications Home Meds Reported Medications Tiotropium Freedom* (Spiriva*) 18 Mcg Cap.w.dev, 1 CAP INHALATION DAILY, #30 CAP 09/09/16 Insulin Detemir (Levemir Flextouch) 100 Unit/1 Ml Insuln.pen, 90 UNIT SQ 09/09/16 Montelukast Sodium* (Montelukast Sodium*) 10 Mg Tablet, 10 MG PO QAM, #30 TAB 09/09/16 Apixaban* (Eliquis*) 5 Mg Tablet, 5 MG PO BID, TAB 09/09/16 Calcium Acetate* (Phoslo*) 667 Mg Tablet, 667 MG PO WITH MEALS, TAB TAKE 4 TAB 09/09/16 Pyridoxine Hcl* (Pyridoxine Hcl*) 50 Mg Tablet, 50 MG PO DAILY, TAB 09/09/16 Zolpidem Tartrate* (Zolpidem Tartrate*) 5 Mg Tablet, 5 MG PO QHS Y for INSOMNIA , #30 TAB 09/09/16 Oxycodone HCl/Acetaminophen (Percocet 10-325 mg Tablet) 1 Each Tablet, 1 EACH PO Q6 Y for PRN, TAB 09/09/16 Budesonide-Formoterol Fumarate* (Symbicort*) 160-4.5 Hfa.aer.ad, 2 PUFF INHALATION BID, #1 EACH 12/19/15 Furosemide* (Furosemide*) 80 Mg Tablet, 80 MG PO DAILY, #30 TAB 12/19/15 Benzonatate* (Tessalon Perle*) 100 Mg Capsule, 100 MG PO Q6, CAP 12/19/15 Atorvastatin* (Atorvastatin*) 40 Mg Tablet, 40 MG PO QHS, #30 TAB 12/19/15 Amlodipine Besylate* (Amlodipine Besylate*) 5 Mg Tablet, 5 MG PO DAILY, #30 TAB 12/19/15 Losartan Potassium* (Losartan Potassium*) 50 Mg Tablet, 50 MG PO BID, TAB 12/19/15 Cinacalcet* (Sensipar*) 30 Mg Tab, 30 MG PO, TAB 12/19/15 Diltiazem Hcl* (Cardizem SR*) 60 Mg Capsr, 60 MG PO Q12, #60 CAP 12/19/15 Metoprolol Succinate* (Toprol XL*) 50 Mg Tab.er.24h, 50 MG PO DAILY, #30 TAB 12/19/15 Metoclopramide* (Reglan*) 5 Mg Tablet, 5 MG PO AC MEALS, TAB 12/19/15 Aspirin* (Aspirin* Chew) 81 Mg Tab.chew, 81 MG PO DAILY, TAB.CHEW 12/19/15 Albuterol Sulfate* (Proair HFA*) 8.5 Gm Hfa.aer.ad, 2 PUFF INH Q4H Y for WHEEZING AND SOB, INH 06/12/14 Omeprazole* (Prilosec*) 40 Mg Capsule.dr, 40 MG PO DAILY 08/31/12 Discontinued Scripts Doxycycline Monohydrate* (Doxycycline Monohydrate*) 100 Mg Tablet, 100 MG PO BID for 7 Days, TAB Prov:ERICK MATOS S. 09/21/16 Allergies Allergies: Coded Allergies: Penicillins (Unverified Allergy, Severe, ALL OVER BODY RASH, 10/13/16) ciprofloxacin (Unverified Allergy, Severe, TENDONITIS, 10/13/16) PMhx/Soc Reviewed in chart. As per HPI. History of Surgery: No (fallopian tubes tied, , two fistulas. ) Anesthesia Reaction: No Hx Neurological Disorder: No Hx Respiratory Disorders: Yes (COPD) Hx Cardiac Disorders: No Hx Psychiatric Problems: No Hx Miscellaneous Medical Probl: Yes (see EMR, heart failure, chronic wound) Hx Alcohol Use: No Hx Substance Use: No Hx Tobacco Use: Yes Smoking Status: Former smoker FmHx Reviewed in chart. Not relevant to presenting complaint. Physical Exam Vitals Vital Signs Date Time Temp Pulse Resp B/P Pulse Ox O2 Delivery O2 Flow Rate FiO2 10/13/16 18:46 96.7 119 20 129/66 97 Physical Exam Const: Alert, moderate acute distress. Head: Atraumatic Eyes: Normal Conjunctiva ENT: Normal External Ears, Nose and Mouth. Neck: Full range of motion. No JVD. Resp: Breath sounds are equal and clear to auscultation bilaterally. No rales rhonchi or wheezes. Cardio: Irregular rate and rhythm, no murmurs Abd: Soft, obese, non tender, non distended. Normal bowel sounds Skin: No petechiae or rashes Back: No midline or flank tenderness Ext: Left lateral thigh: There is a wound VAC overriding and necrotic ulcer with mild surrounding erythema and induration. No fluctuance or subcutaneous crepitus. Left upper extremity: AV shunt with palpable thrill. Neur: Awake and alert Psych: Normal Mood and Affect Result Diagram: 10/13/16204210/14/16 0200 Results 24 hrs Laboratory Tests Test 10/13/16 20:43 White Blood Count 10.210^3/ul Red Blood Count 2.7310^6/ul Hemoglobin 8.7g/dl Hematocrit 28.4% Mean Corpuscular Volume 104.0fl Mean Corpuscular Hemoglobin 31.9pg Mean Corpuscular Hemoglobin Concent 30.6g/dl Red Cell Distribution Width 17.9% Platelet Count 45650^3/UL Mean Platelet Volume 9.5fl Neutrophils % 69.3% Lymphocytes % 14.8% Monocytes % 10.8% Eosinophils % 3.1% Basophils % 0.8% Nucleated Red Blood Cells % 0.0/100WBC Neutrophils # 7.010^3/ul Lymphocytes # 1.510^3/ul Monocytes # 1.110^3/ul Eosinophils # 0.310^3/ul Basophils # 0.110^3/ul Nucleated Red Blood Cells # 0.010^3/ul Sodium Level 138mmol/L Potassium Level 5.9mmol/L Chloride Level 103mmol/L Carbon Dioxide Level 25mmol/L Anion Gap 16 Blood Urea Nitrogen 47mg/dl Creatinine 5.81mg/dl Glucose Level 248mg/dl Calcium Level 8.6mg/dl Current Medications Medications (Trade) Dose Ordered Sig/Danielle Route PRN Reason Start Time Stop Time Status Last Admin Dose Admin Albuterol (Proventil 0.5% (Neb)) 15 mg ONCE STAT INH 10/13/16 22:07 10/13/16 22:10 DC 10/13/16 22:37 Insulin Human Regular (Novolin-R) 10 unit ONCE STAT IV 10/13/16 22:07 10/13/16 22:10 DC EKG: Atrial fibrillation. Ventricular Rate:107. Subendocardial changes but no acute ST segment elevation. Left posterior hemiblock. EP interpretation: Abnormal ECG. Procedures/MDM DOCUMENTS REVIEWED: ED nurse, prior ED, prior records MEDICAL DECISION MAKIN-year-old female history of hypertension, diabetes mellitus type 2, end-stage renal disease on dialysis, peripheral vascular disease, chronic atrial fibrillation and left lower extremity thigh gangrenous decubitus status post debridement and wound VAC placement referred to the ED for evaluation and debridement of the wound. Necrotic wound left thigh will require debridement. No fever, leukocytosis or criteria SIRS/sepsis. No signs of necrotizing fasciitis. Possible osteomyelitis. Hyperkalemia treated with nebulized albuterol, D50 and insulin. Chronic atrial fib/flutter but no acute EKG changes. Patient be admitted to Med/Surg for surgical debridement, further evaluation and management as well as urgent dialysis. Counseled patient regarding diagnosis, diagnostic results and plan for admission. CALLS/CONSULTS: Time 21:15, Dr. Fuentes, , Recommends wound vac removal, wet to dry dressing and admission for surgical debridement. CALLS/CONSULTS: Time 21:20, Dr. Duque, admission to [facility]. PATIENT CARE TRANSITIONED: Time: 21:40, Dr. Duque. Departure Diagnosis: Primary Impression: Ulcer of left lower extremity Qualified Code: L97.923 - Ulcer of left lower extremity, with necrosis of muscle Additional Impressions: Hyperkalemia End stage renal disease on dialysis Diabetes mellitus type 2 in obese Hypertension Qualified Code: I10 - Essential hypertension Condition: Serious ANDREI JACOB MD October 13, 2016 21:33 require debridement. No fever, leukocytosis or other signs of sepsis. Hyperkalemia she with nebulized albuterol, D50 and insulin. No acute EKG changes. Patient be admitted to [facility] for surgical debridement, further evaluation and management as well as urgent dialysis. Counseled patient regarding diagnosis, diagnostic results and plan for admission. CALLS/CONSULTS: Time 21:15, Dr. Fuentes, , Recommends admission for surgical debridement. CALLS/CONSULTS: Time 21:20, Dr. Duque, admission to [facility]. PATIENT CARE TRANSITIONED: Time: 21:40, Dr. Duque. Departure Diagnosis: Primary Impression: Ulcer of left lower extremity Qualified Code: L97.923 - Ulcer of left lower extremity, with necrosis of muscle Additional Impressions: Hyperkalemia End stage renal disease on dialysis Diabetes mellitus type 2 in obese Hypertension Qualified Code: I10 - Essential hypertension Condition: Serious ANDREI JACOB MD October 13, 2016 21:33
[2016-10-13] MEDS ORDERED: ALBUTEROL 0.5% (NEB) 2.5 MG/0.5 ML AMP INH STA (22:07)
[2016-10-13] MEDS ORDERED: INSULIN REGULAR 10 ML INJ IV STA (22:07)
[2016-10-13] MEDS ORDERED: ACETAMINOPHEN 325 MG TAB PO PRN ×2 (22:30→23:30)
[2016-10-13] MEDS ORDERED: ONDANSETRON 4 MG INJ IV PRN ×2 (22:30→23:30)
[2016-10-13] MEDS ORDERED: DEXTROSE 50% 50 ML SYRINGE IV PRN (22:30)
[2016-10-13] MEDS ORDERED: INSULIN REGULAR, HUMAN 100 UNIT/1 ML 3ML VIAL IV STA (22:47)
[2016-10-13 23:03] VITALS: TEMP 98.2
[2016-10-13] MEDS ORDERED: LORAZEPAM 2 MG INJ IV PRN (23:30)
[2016-10-13] MEDS ORDERED: VANCOMYCIN IV PER PHARMACY XX SCH (23:30)
[2016-10-13] MEDS ORDERED: NACL 0.9% 3 ML SYG IV SCH (23:30)
--- NOTE | 2016-10-13 23:41 | HP ---
Date/Time of Note Date/Time of Note DATE: 10/13/16 TIME: 23:23 Assessment/Plan VTE Prophylaxis VTE Prophylaxis Intervention: contraindicated VTE Contraindication Reason: sx procedure on lower extremity Lines/Catheters IV Catheter Type (from Nrs): Saline Lock Assessment/Plan Chief Complaint/Hosp Course This is a 61-year-old female being admitted to the telemetry floor for: 1. Left thigh wound. This is a chronic wound the patient has been dealing with for approximately 4 months she had a wound VAC placed approximately 2 weeks ago. At the current time there is no crepitus noted at the area of the wound. Vascular surgeon was notified. Patient likely will have debridement today. We will keep the patient n.p.o. after midnight. At this time we will continue her on vancomycin IV. Pain medications as indicated. 2. History of atrial fibrillation. Patient is currently rate controlled. We will continue her beta-ni and Cardizem. At the current time will hold Eliquis and aspirin as she may have a procedure performed today and restart the medications once cleared by vascular surgery postop. 3. End-stage renal disease. We will consult nephrology for dialysis as her schedule is Tuesday and Tuesday. Will continue her home medications. 4. Anemia, likely of chronic disease and end-stage renal disease. The patient has no reports of any bleeding at this time. 5. Hypertension. Continue home medications. 6. Diabetes. As she may be undergoing a procedure today patient will be n.p.o. after midnight. Will reduce her dose of Levemir as she will be n.p.o. start on insulin sliding scale. Resume home insulin regimen once patient is returning to her regular diet. 7. Dyslipidemia. Continue statin. 8. DVT and GI prophylaxis: At the current time will hold patient's chemical prophylaxis of Eliquis secondary to her possibly undergoing the procedure today will restart Eliquis postop once cleared by vascular surgery, Protonix. Further treatment strategy will be implemented as per the clinical course. Problems: HPI/ROS Admit Date/Time Admit Date/Time Hx of Present Illness Chief complaint: Painful wound of left thigh 61-year-old female history of hypertension, diabetes mellitus type 2, end-stage renal disease on dialysis, peripheral vascular disease, chronic atrial fibrillation and left lower extremity thigh gangrenous decubitus status post debridement and wound VAC placement referred to the ED for evaluation and debridement of the wound. Home health nurse change the dressing today and the patient states that the wound was necrotic and needed debridement, Dr. Miranda was notified and referred the patient to the ED. Patient complains of mild pain to the left thigh with redness that has been stable. Denies fevers or chills. Otherwise asymptomatic. No chest pain or palpitations. No shortness of breath or cough. No abdominal pain, nausea, vomiting, diarrhea or constipation. Allergies: Penicillins, ciprofloxacin, sulfa Medications: See MAR ROS Const: As per HPI Eyes : No pain discharge or redness or change in visual acuity ENT: No pain, sore throat, congestion, congestion, dysphagia or discharge Respiratory: No shortness of breath, cough, sputum, wheezing, or pleuritic pain Cardiovascular: No chest pain, palpitation, PND, or edema GI : no change in appetite, abdominal pain, nausea, vomiting, diarrhea, constipation, or change in the color his stool Genitourinary: No dysuria, hematuria, flank pain , discharge or CVA tenderness Musculoskeletal: As per HPI Skin: As per HPI Neuro: No headache, dizziness, syncope, seizure, focal weakness Endocrine: No polyuria, polydipsia, temperature intolerance Psych: No hallucination, depression, anxiety or suicidal ideation PMH/Family/Social Past Medical History end-stage renal disease on dialysis, dyslipidemia, diabetes, COPD, wound in the left leg. dialyzed Tuesdays, , Saturdays. history of previous RI, AFib. Past Surgical History Left upper extremity fistula creation, previous PermCath catheter placement, C- section. Social History Alcohol Use: none Smoking Status: Current every day smoker Drug Use: none Exam/Review of Systems Vital Signs Vitals Vital Signs Date Time Temp Pulse Resp B/P Pulse Ox O2 Delivery O2 Flow Rate FiO2 10/13/16 23:03 98.2 90 20 129/62 92 Room Air 10/13/16 22:37 21 Exam Exam General: Patient is well-developed well-nourished The patient is alert oriented -3 lying comfortably in bed. HEENT: Atraumatic, normocephalic. The pupils are equal, round and reactive. Extraocular motor are intact Neck: Supple with full range of motion. No rigidity or meningismus Chest: Nontender Lungs: Clear to auscultation bilaterally no crackles rales or wheezing Heart: Normal S1-S2, Regular rhythm and rate. No overt murmur appreciated Abdomen: Soft , nontender, nondistended , bowel sounds are present. No guarding no rebound tenderness , No masses or organomegaly. No costovertebral temporal angle mass Extremities: Wound of left lateral thigh, redness noted, covered with bandage, no drainage noted, left upper extremity palpable AV shunt thrill Neurologic: Normal mental status, speech normal, cranial nerves II through XII are intact, motor and sensory are intact, no focal weakness Additional Comments EKG: Atrial fibrillation. Ventricular Rate:107. Subendocardial changes but no acute ST segment elevation. Left posterior hemiblock. EP interpretation: Abnormal ECG. Labs Result Diagram: 10/13/16204210/13/162042 Medications Medications Current Medications Dextrose (D50w Syringe) ONCE PRN IV POC BLOOD GLUCOSE <250 MG/DL Last administered on 10/13/16t 22:54; Admin Dose 50 ML; Start 10/13/16 at 22:30 CORIE CABRERA October 13, 2016 23:33
[2016-10-14] VITALS (11 sets, daily range): BP systolic 102–144; BP diastolic 51–74; PULSE 78–98; RESP 17–20
[2016-10-14] MEDS ORDERED: ALBUTEROL HFA 8 GM INHALER INH PRN (00:30)
[2016-10-14] MEDS ORDERED: INSULIN ASPART [NOVOLOG] 3 ML PEN SC SCH (01:00)
[2016-10-14] MEDS ORDERED: GLUCAGON 1 MG INJ IM PRN (01:00)
[2016-10-14] MEDS ORDERED: INSULIN DETEMIR [LEVEMIR] 3ML CART SC ONE (01:00)
[2016-10-14] MEDS ORDERED: VANCOMYCIN 2 GM in SOD CHLORIDE 0.9% 500 ML IVPB ONE (01:00)
[2016-10-14] MEDS ORDERED: GLUCOSE GEL 15 GRAM TUBE PO PRN ×2 (01:00)
[2016-10-14] MEDS: INSULIN ASPART [NOVOLOG] 3 ML PEN SC SCH ×5 (01:00→21:39)
[2016-10-14] MEDS ORDERED: GLUCOSE GEL 15 GRAM TUBE BUCCAL PRN (01:00)
[2016-10-14] MEDS ORDERED: DEXTROSE 50% 50 ML SYRINGE IV PRN ×2 (01:00)
[2016-10-14] MEDS ORDERED: INSULIN ASPART [NOVOLOG] 3 ML PEN SC ONE (01:30)
[2016-10-14] MEDS: DOCUSATE SODIUM 100 MG CAP PO SCH ×3 (01:42→23:14)
[2016-10-14] MEDS: ZOLPIDEM 5 MG TAB PO PRN (01:56)
[2016-10-14] MEDS: OXYCODONE/ACETAMINOPHEN (5/325) TAB PO PRN ×4 (01:56→23:49)
[2016-10-14 02:37] LABS: CALCIUM 8.3 mg/dl (8.4-10.2); CREATININE 5.81 mg/dl (0.44-1.00); POTASSIUM 5.1 mmol/L (3.5-5.1)
[2016-10-14] MEDS: PANTOPRAZOLE 40 MG INJ IV SCH (05:10)
[2016-10-14] MEDS: BENZONATATE 100 MG CAP PO SCH ×3 (05:10→17:23)
[2016-10-14] MEDS ORDERED: FUROSEMIDE 40 MG TAB PO SCH (06:00)
--- NOTE | 2016-10-14 07:03 | CONS ---
Date/Time of Note Date/Time of Note DATE: 10/14/16 TIME: 07:00 Assessment/Plan Assessment/Plan Chief Complaint/Hosp Course - [place] [facility] [place] - DIABETES - CHRONIC ANEMIA - HYPERTENSION - HYPERPHOSPHATEMIA - LOWER EXTREMITY CELLULITIS ( S/P Debridement & VAC ) PLAN: Bedside dialysis Will plan for UF ~ 4 Kg ( She has gained a lot of weight ) Continue with Abx Surgical evaluation Continue with all Meds Problems: Consultation Date/Type/Reason Admit Date/Time Date of Consultation: Oct 14, 2016 Type of Consultation: NEPHROLOGY Reason for Consultation ESRD on Hemodialysis Hx of Present Illness 61-year-old female ESRD on Hemodialysis [place] [facility] [place] & Hypertension, diabetes mellitus type 2, peripheral vascular disease, chronic atrial fibrillation and left lower extremity thigh gangrenous decubitus status post debridement and wound VAC placement referred to the Hospital for evaluation and debridement of the wound. Constitutional: no complaints Eyes: no complaints ENT: no complaints Respiratory: no complaints Cardiovascular: no complaints Gastrointestinal: no complaints Genitourinary: no complaints Past Medical History Medical History: congestive heart failure, coronary artery disease, diabetes, hypertension, renal disease Past Surgical History Past Surgical Hx: other Family History Significant Family History: no pertinent family hx Social History Alcohol Use: none Smoking Status: Current every day smoker Drug Use: none Exam/Review of Systems Vital Signs Vitals Vital Signs Date Time Temp Pulse Resp B/P Pulse Ox O2 Delivery O2 Flow Rate FiO2 10/13/16 23:03 98.2 90 20 129/62 92 Room Air 10/13/16 22:37 21 Intake and Output 10/13/16 10/13/16 10/14/16 15:00 23:00 07:00 Intake Total 620 ml Balance 620 ml Exam Constitutional: alert, oriented Psych: no complaints Head: normocephalic Eyes: nl conjunctiva Respiratory: crackles/rales Cardiovascular: edema, regular rate and rhythm, systolic murmur Gastrointestinal: soft Results Result Diagram: 10/13/16204210/14/16 0200 Results 24 hrs Laboratory Tests Test 10/13/16 20:43 10/14/16 00:17 10/14/16 01:26 10/14/16 02:00 White Blood Count 10.2 # Red Blood Count 2.73 L Hemoglobin 8.7 L Hematocrit 28.4 L Mean Corpuscular Volume 104.0 H Mean Corpuscular Hemoglobin 31.9 Mean Corpuscular Hemoglobin Concent 30.6 L Red Cell Distribution Width 17.9 H Platelet Count 306 Mean Platelet Volume 9.5 Neutrophils % 69.3 Lymphocytes % 14.8 L Monocytes % 10.8 Eosinophils % 3.1 Basophils % 0.8 Nucleated Red Blood Cells % 0.0 Neutrophils # 7.0 Lymphocytes # 1.5 Monocytes # 1.1 H Eosinophils # 0.3 Basophils # 0.1 Nucleated Red Blood Cells # 0.0 Sodium Level 138 139 Potassium Level 5.9 H 5.1 Chloride Level 103 105 Carbon Dioxide Level 25 26 Anion Gap 16 13 Blood Urea Nitrogen 47 H 47 H Creatinine 5.81 H 5.81 H Glucose Level 248 H 347 H Calcium Level 8.6 8.3 L Bedside Glucose 230 H 358 H Test 10/14/16 05:02 Bedside Glucose 319 H Medications Medications Current Medications Dextrose (D50w Syringe) ONCE PRN IV POC BLOOD GLUCOSE <250 MG/DL Last administered on 10/13/16 22:54; Admin Dose 50 ML; Start 10/13/16 at 22:30 Lorazepam (Ativan) 0.5 mg Q6H PRN IV ANXIETY; Start 10/13/16 at 23:30 Ondansetron HCl (Zofran Inj) 4 mg Q6H PRN IV NAUSEA AND/OR VOMITING; Start at 23:30 Acetaminophen (Tylenol Tab) 650 mg Q6H PRN PO PAIN LEVEL 1-3 OR FEVER; Start at 23:30 Oxycodone/ Acetaminophen (Percocet (5/ 325)) 2 tab Q6H PRN PO PAIN LEVEL 7-10 Last administered on 10/14/16 01:56; Admin Dose 2 TAB; Start 10/13/16 at 23:30 Docusate Sodium (Colace) 100 mg Q12H PO Last administered on 10/14/16 01:42; Admin Dose 100 MG; Start 10/13/16 at 23:30 Bisacodyl (Dulcolax) 5 mg DAILY PO ; Start 10/14/16 at 09:00 Pantoprazole (Protonix Iv) 40 mg DAILY@06 IV Last administered on 10/14/16 05: 10; Admin Dose 40 MG; Start 10/14/16 at 06:00 Amlodipine Besylate (Norvasc) 5 mg DAILY PO ; Start 10/14/16 at 09:00 Atorvastatin Calcium (Lipitor) 40 mg QHS PO ; Start 10/14/16 at 21:00 Benzonatate (Tessalon) 100 mg Q6 PO Last administered on 10/14/16 05:10; Admin Dose 100 MG; Start 10/14/16 at 06:00 Cinacalcet (Sensipar) 30 mg DAILY PO ; Start 10/14/16 at 09:00 Diltiazem HCl (Cardizem Sr) 60 mg Q12 PO ; Start 10/14/16 at 09:00 Furosemide (Lasix) 80 mg DAILY@06 PO Last administered on 10/14/16 05:11; Admin Dose 80 MG; Start 10/14/16 at 06:00 Losartan Potassium (Cozaar) 50 mg BID PO ; Start 10/14/16 at 09:00 Metoprolol Succinate (Toprol Xl) 50 mg DAILY PO ; Start 10/14/16 at 09:00 Montelukast Sodium (Singulair) 10 mg QAM PO ; Start 10/14/16 at 09:00 Pyridoxine HCl (Vitamin B6) 50 mg DAILY PO ; Start 10/14/16 at 09:00 Tiotropium [place] (Spiriva) 18 inh DAILY INH ; Start 10/14/16 at 09:00 Zolpidem Tartrate (Ambien) 5 mg QHS PRN PO INSOMNIA Last administered on 01:56; Admin Dose 5 MG; Start 10/14/16 at 00:30 Salmeterol Xinafoate/ Fluticasone (Advair 250/50 Diskus) 1 inh BID INH ; Start 10/14/16 at 09:00 Insulin Aspart (Novolog Insulin Pen) NOVOLOG *MILD* ALGORI... Q4 SC Last administered on 10/14/16 05:18; Admin Dose 5 UNIT; Start 10/14/16 at 01:00 Miscellaneous Information 1 ea NOTE XX ; Start 10/14/16 at 01:00 Glucose (Glutose) 15 gm Q15M PRN PO DECREASED GLUCOSE; Start 10/14/16 at 01:00 Glucose (Glutose) 22.5 gm Q15M PRN PO DECREASED GLUCOSE; Start 10/14/16 at 01:00 Dextrose (D50w Syringe) 25 ml Q15M PRN IV DECREASED GLUCOSE; Start 10/14/16 at 01:00 Dextrose (D50w Syringe) 50 ml Q15M PRN IV DECREASED GLUCOSE; Start 10/14/16 at 01:00 Glucagon (Glucagen) 1 mg Q15M PRN IM DECREASED GLUCOSE; Start 10/14/16 at 01:00 Glucose (Glutose) 15 gm Q15M PRN BUCCAL DECREASED GLUCOSE; Start 10/14/16 at 01: 00 BECKY GAMBLE MD Oct 14, 2016 07:03
[2016-10-14] MEDS: METOCLOPRAMIDE 5 MG TAB PO SCH ×3 (08:00→17:23)
[2016-10-14] MEDS: CALCIUM ACETATE 667 MG CAP PO SCH ×3 (08:15→17:23)
[2016-10-14 08:21] LABS: ADD SCAN DIFF NO
[2016-10-14 08:27] LABS: BASOPHIL # 0.1 10^3/ul (0.0-0.1); BASOPHILS % 0.7 % (0.0-2.0); EOSINOPHILS # 0.3 10^3/ul (0.0-0.5); EOSINOPHILS % 3.2 % (0.0-7.0); HEMATOCRIT 25.6 % (37.0-47.0); HEMOGLOBIN 7.7 g/dl (12.0-16.0); LYMPHOCYTES # 1.5 10^3/ul (0.8-2.9); LYMPHOCYTES % 17.1 % (15.0-51.0); MEAN CORPUSCULAR HGB CONC 30.1 g/dl (32.0-37.0); MEAN CORPUSCULAR VOLUME 103.2 fl (82.0-101.0); MEAN PLATELET VOLUME 9.8 fl (7.4-10.4); MONOCYTE # 1.3 10^3/ul (0.3-0.9); MONOCYTES % 14.7 % (0.0-11.0); NEUTROPHIL # 5.6 10^3/ul (1.6-7.5); PLATELET COUNT 265 10^3/UL (140-415); RED BLOOD COUNT 2.48 10^6/ul (4.20-5.40); RED CELL DISTRIBUTION WIDTH 17.9 % (11.5-14.5); WHITE BLOOD COUNT 8.9 10^3/ul (4.8-10.8)
[2016-10-14 08:42] LABS: ALBUMIN 3.6 g/dl (3.3-4.9); ALBUMIN/GLOBULIN RATIO 1.8; CALCIUM 8.5 mg/dl (8.4-10.2); CHOL/HDL RATIO 1.5 RATIO; CREATININE 5.94 mg/dl (0.44-1.00); MAGNESIUM 2.2 mg/dl (1.7-2.5); POTASSIUM 5.5 mmol/L (3.5-5.1); TOTAL PROTEIN 5.6 g/dl (6.1-8.1)
[2016-10-14] MEDS: PYRIDOXINE 50 MG TAB PO SCH (09:00)
[2016-10-14] MEDS: CINACALCET 30 MG TAB PO SCH (09:00)
[2016-10-14] MEDS: MONTELUKAST 10 MG TAB PO SCH (09:00)
[2016-10-14] MEDS: AMLODIPINE 5 MG TAB PO SCH (09:00)
[2016-10-14] MEDS: BISACODYL (EC) 5 MG TAB PO SCH (09:00)
[2016-10-14] MEDS: LOSARTAN 50 MG TAB PO SCH ×2 (09:00→21:34)
[2016-10-14] MEDS: DILTIAZEM (SR) 60 MG CAP PO SCH ×2 (09:00→23:13)
[2016-10-14] MEDS: METOPROLOL (XL) 50 MG TAB PO SCH (09:00)
[2016-10-14] MEDS: SALMETEROL/FLUTICASONE 250/50 INHA INH SCH ×2 (09:00→21:00)
[2016-10-14 09:13] LABS: THYROID STIMULATING HORMONE 4.26 MIU/L (0.465-4.680)
[2016-10-14] MEDS: TIOTROPIUM 18 MCG CAPSULE INHA DEV INH SCH (09:27)
--- NOTE | 2016-10-14 13:51 | PN ---
Date/Time of Note Date/Time of Note DATE: 10/14/16 TIME: 13:50 Assessment/Plan VTE Prophylaxis VTE Prophylaxis Intervention: other (eliquis) Lines/Catheters IV C[facility]ter Type (from [facility]): Saline Lock Urinary Cath still in place: No Assessment/Plan Assessment/Plan This is a 61-year-old female being admitted to the telemetry floor for: 1. Left thigh wound. * This is a chronic wound the patient has been dealing with for approximately 4 months she had a wound VAC placed approximately 2 weeks ago. At the current time there is no crepitus noted at the area of the wound. * Vascular surgery plans debridement sometime during this admission. * Will get an MRI to ensure no bony involvement 2. History of atrial fibrillation. Patient is currently rate controlled. We will continue her beta-ni and Cardizem. Continue Eliquis until surgery scheduled. 3. End-stage renal disease. We will consult nephrology for dialysis as her schedule is Tuesday and Tuesday. Will continue her home medications. 4. Anemia, likely of chronic disease and end-stage renal disease. The patient has no reports of any bleeding at this time. 5. Hypertension. Continue home medications. 6. Diabetes type 2 * Resume diabetic control diet and home insulin regimen and titrate for good control. 7. Dyslipidemia. Continue statin. 8. Anasarca: Consider supplemental albumin therapy to help with diuresis if okay with nephrology 9. Tobacco use and abuse: Pt. was lectured for greater than 3 minutes on the health risks of continued smoking and the benefits of cessation and this will continue to be reinforced throughout hospitalization. DVT and GI prophylaxis: Eliquis and Protonix Further treatment strategy will be implemented as per the clinical course. Subjective 24 Hr Interval Summary Free Text/Dictation patient just concluded dialysis, no new complaints, states she is usually ambulant Exam/Review of Systems Vital Signs Vitals Vital Signs Date Time Temp Pulse Resp B/P Pulse Ox O2 Delivery O2 Flow Rate FiO2 10/14/16 13:45 98 10/14/16 10:45 18 10/14/16 08:00 98.2 117/56 95 10/13/16 23:03 Room Air 10/13/16 22:37 21 Intake and Output 10/13/16 10/13/16 10/14/16 15:00 23:00 07:00 Intake Total 620 ml Balance 620 ml Exam General: Patient is well-developed well-nourished, obese The patient is alert oriented -3 lying comfortably in bed. HEENT: Atraumatic, normocephalic. The pupils are equal, round and reactive. Extraocular motor are intact Neck: Supple with full range of motion. No rigidity or meningismus Chest: Nontender Lungs: Clear to auscultation bilaterally no crackles rales or wheezing Heart: Normal S1-S2, Regular rhythm and rate. No overt murmur appreciated Abdomen: Soft , nontender, nondistended , bowel sounds are present. No guarding no rebound tenderness , No masses or organomegaly. No costovertebral temporal angle mass Extremities: Wound of left lateral thigh, very deep, and covered with yellowish crust. Muscle and tendons visible underneath. Left upper extremity palpable AV shunt thrill. Patient also had bilateral lower extremity edema all the way to her thighs, and she has multiple small crusted over ulcers the posterior part of left bahena and also the back of right leg Neurologic: Normal mental status, speech normal, no focal weakness Results Result Diagram: 10/14/16 0715 10/14/16 0715 Results 24 hrs Laboratory Tests Test 10/13/16 20:43 10/14/16 00:17 10/14/16 01:26 10/14/16 02:00 White Blood Count 10.2 # Red Blood Count 2.73 L Hemoglobin 8.7 L Hematocrit 28.4 L Mean Corpuscular Volume 104.0 H Mean Corpuscular Hemoglobin 31.9 Mean Corpuscular Hemoglobin Concent 30.6 L Red Cell Distribution Width 17.9 H Platelet Count 306 Mean Platelet Volume 9.5 Neutrophils % 69.3 Lymphocytes % 14.8 L Monocytes % 10.8 Eosinophils % 3.1 Basophils % 0.8 Nucleated Red Blood Cells % 0.0 Neutrophils # 7.0 Lymphocytes # 1.5 Monocytes # 1.1 H Eosinophils # 0.3 Basophils # 0.1 Nucleated Red Blood Cells # 0.0 Sodium Level 138 139 Potassium Level 5.9 H 5.1 Chloride Level 103 105 Carbon Dioxide Level 25 26 Anion Gap 16 13 Blood Urea Nitrogen 47 H 47 H Creatinine 5.81 H 5.81 H Glucose Level 248 H 347 H Calcium Level 8.6 8.3 L Bedside Glucose 230 H 358 H Test 10/14/16 05:02 10/14/16 07:15 10/14/16 08:48 10/14/16 13:41 Bedside Glucose 319 H 217 153 White Blood Count 8.9 Red Blood Count 2.48 L Hemoglobin 7.7 L Hematocrit 25.6 L Mean Corpuscular Volume 103.2 H Mean Corpuscular Hemoglobin 31.0 Mean Corpuscular Hemoglobin Concent 30.1 L Red Cell Distribution Width 17.9 H Platelet Count 265 Mean Platelet Volume 9.8 Neutrophils % 63.0 Lymphocytes % 17.1 Monocytes % 14.7 H Eosinophils % 3.2 Basophils % 0.7 Nucleated Red Blood Cells % 0.0 Neutrophils # 5.6 Lymphocytes # 1.5 Monocytes # 1.3 H Eosinophils # 0.3 Basophils # 0.1 Nucleated Red Blood Cells # 0.0 Sodium Level 136 Potassium Level 5.5 H Chloride Level 103 Carbon Dioxide Level 27 Anion Gap 12 Blood Urea Nitrogen 48 H Creatinine 5.94 H Glucose Level 245 #H Hemoglobin A1c 6.9 H Calcium Level 8.5 Magnesium Level 2.2 Total Bilirubin 0.0 L Direct Bilirubin 0.00 Indirect Bilirubin 0.0 Aspartate Amino Transf (AST/SGOT) 9 L Alanine Aminotransferase (ALT/SGPT) 22 Alkaline Phosphatase 69 Total Protein 5.6 L Albumin 3.6 Globulin 2.00 Albumin/Globulin Ratio 1.80 Triglycerides Level 56 Cholesterol Level 66 L LDL Cholesterol, Calculated 12 HDL Cholesterol 43 Cholesterol/HDL Ratio 1.5 Thyroid Stimulating Hormone (TSH) 4.260 Medications Medications Current Medications Dextrose (D50w Syringe) ONCE PRN IV POC BLOOD GLUCOSE <250 MG/DL Last administered on 10/13/16 22:54; Admin Dose 50 ML; Start 10/13/16 at 22:30 Lorazepam (Ativan) 0.5 mg Q6H PRN IV ANXIETY; Start 10/13/16 at 23:30 Ondansetron HCl (Zofran Inj) 4 mg Q6H PRN IV NAUSEA AND/OR VOMITING; Start at 23:30 Acetaminophen (Tylenol Tab) 650 mg Q6H PRN PO PAIN LEVEL 1-3 OR FEVER; Start at 23:30 Oxycodone/ Acetaminophen (Percocet (5/ 325)) 2 tab Q6H PRN PO PAIN LEVEL 7-10 Last administered on 10/14/16 09:35; Admin Dose 2 TAB; Start 10/13/16 at 23:30 Docusate Sodium (Colace) 100 mg Q12H PO Last administered on 10/14/16 01:42; Admin Dose 100 MG; Start 10/13/16 at 23:30 Bisacodyl (Dulcolax) 5 mg DAILY PO ; Start 10/14/16 at 09:00 Pantoprazole (Protonix Iv) 40 mg DAILY@06 IV Last administered on 10/14/16 05: 10; Admin Dose 40 MG; Start 10/14/16 at 06:00 Amlodipine Besylate (Norvasc) 5 mg DAILY PO ; Start 10/14/16 at 09:00 Atorvastatin Calcium (Lipitor) 40 mg QHS PO ; Start 10/14/16 at 21:00 Benzonatate (Tessalon) 100 mg Q6 PO Last administered on 10/14/16 05:10; Admin Dose 100 MG; Start 10/14/16 at 06:00 Cinacalcet (Sensipar) 30 mg DAILY PO ; Start 10/14/16 at 09:00 Diltiazem HCl (Cardizem Sr) 60 mg Q12 PO ; Start 10/14/16 at 09:00 Furosemide (Lasix) 80 mg DAILY@06 PO Last administered on 10/14/16 05:11; Admin Dose 80 MG; Start 10/14/16 at 06:00 Losartan Potassium (Cozaar) 50 mg BID PO ; Start 10/14/16 at 09:00 Metoprolol Succinate (Toprol Xl) 50 mg DAILY PO ; Start 10/14/16 at 09:00 Montelukast Sodium (Singulair) 10 mg QAM PO ; Start 10/14/16 at 09:00 Pyridoxine HCl (Vitamin B6) 50 mg DAILY PO ; Start 10/14/16 at 09:00 Tiotropium [place] (Spiriva) 18 inh DAILY INH Last administered on 10/14/16 09: 27; Admin Dose 18 INH; Start 10/14/16 at 09:00 Zolpidem Tartrate (Ambien) 5 mg QHS PRN PO INSOMNIA Last administered on 01:56; Admin Dose 5 MG; Start 10/14/16 at 00:30 Salmeterol Xinafoate/ Fluticasone (Advair 250/50 Diskus) 1 inh BID INH ; Start 10/14/16 at 09:00 Insulin Aspart (Novolog Insulin Pen) NOVOLOG *MILD* ALGORI... Q4 SC Last administered on 10/14/16t 09:11; Admin Dose 2 UNIT; Start 10/14/16 at 01:00 Miscellaneous Information 1 ea NOTE XX ; Start 10/14/16 at 01:00 Glucose (Glutose) 15 gm Q15M PRN PO DECREASED GLUCOSE; Start 10/14/16 at 01:00 Glucose (Glutose) 22.5 gm Q15M PRN PO DECREASED GLUCOSE; Start 10/14/16 at 01:00 Dextrose (D50w Syringe) 25 ml Q15M PRN IV DECREASED GLUCOSE; Start 10/14/16 at 01:00 Dextrose (D50w Syringe) 50 ml Q15M PRN IV DECREASED GLUCOSE; Start 10/14/16 at 01:00 Glucagon (Glucagen) 1 mg Q15M PRN IM DECREASED GLUCOSE; Start 10/14/16 at 01:00 Glucose (Glutose) 15 gm Q15M PRN BUCCAL DECREASED GLUCOSE; Start 10/14/16 at 01: 00 Miscellaneous Information (* Miscellaneous Pharmacy Order) Discontinue all previ... ONCE ONCE XX ; Start 10/14/16 at 14:00; Stop 10/14/16 at 14:01; Status UNV Diagnostic Test (Pha) (Accu-Chek) 1 ea 02 XX ; Start 10/15/16 at 02:00; Status UNV WILLIAM CLARK Oct 14, 2016 13:51
--- NOTE | 2016-10-14 14:13 | CONS ---
DATE OF ADMISSION: 10/13/2016 DATE OF CONSULTATION: 10/13/2016 VASCULAR SURGERY CONSULTATION Dear Doctors: Ms. Anthony is a 61-year-old female who is an active smoker with a plethora of medical conditions, who presents with a history of bilateral lower extremity wounds. The patient, as of recent, was seen i n August of this year, in which she presented with a significant left lower extremity thigh wound, st atus post debridement and wound VAC placement. However, the patient has been noncompliant and has n ot followed up with us in our office on multiple attempts. At the moment the patient denies worseni ng of the left thigh wound, that seems to be managed with wound VAC therapy with home health; genesis kim, it is unclear, as the patient does not fully describe what has been done since we had seen her ba ck in August. She also mentions that she has a cat at home, in which she has sustained multiple area s of scratching from the cat. Further, the patient has a history of disabling claudication, denies rest pain, and bilateral lower extremity venous insufficiency and recurrent venous stasis ulcers. A t the moment, she denies fever, chills, nausea, vomiting, abdominal pain, melena or hematochezia. REVIEW OF SYSTEMS: A 12-point review was performed and negative except for what is mentioned in the HPI. PAST MEDICAL HISTORY: End-stage renal disease, morbidly obese, smoker, hyperlipidemia, coronary art enrique disease, COPD, atrial fibrillation, [place], on Eliquis. PAST SURGICAL HISTORY: Left upper extremity fistula creations, previous PermCath placement, C-secti on. ALLERGIES: 1. PENICILLIN. 2. SULFA. 3. CIPRO. FAMILY HISTORY: Diabetes and hypertension. SOCIAL HISTORY: Active smoker. Denies the current use of alcohol. No illicit drug use. PHYSICAL EXAMINATION: GENERAL: Alert and oriented x3, in no apparent distress. HEENT: Normocephalic, atraumatic. Poor dentition. Mucosa moist. NECK: Supple. No carotid bruit. PULMONARY: Clear to auscultation bilaterally. No crackles. CARDIOVASCULAR: S1, S2 present. Irregularly irregular. ABDOMEN: Soft, nontender, nondistended. Bowel sounds positive. Truncal obesity. Large pannus. EXTREMITIES: Right lower extremity palpable femoral pulse, nonpalpable pedal pulse. Motor and senso ry intact. Cap refill 3 to 4 seconds. Edema of 2 to 3+. Presence of lipodermatosclerosis, spider veins, telangiectasias and multiple healed ulcers in the past. Left lower extremity superficial scabs from injury from a cat. Left lower extremity palpable femoral pulse, nonpalpable pedal pulse. Motor and sensory intact. Ca p refill of 3 to 4 seconds. Edema 2 to 3+. Lateral thigh ulcer measuring 5 x 3 x 2, with necrotic fibrinous tissue. Lower leg with presence of lipodermatosclerosis, multiple healed ulcers on the me dial aspect and scabs on her bahena. ASSESSMENT AND PLAN: 1. Bilateral lower extremity atherosclerosis with ulcers and claudication. It seems the patient sexton s a component of mixed arterial and venous disease. Upon her noninvasive vascular studies it was id entified the patient has infrapopliteal disease with monophasic flow. Further, the patient underwen t CT angiography that demonstrates the patient having adequate inflow to her popliteal segments whic h should allow for adequate wound healing of her lateral thigh ulcer. However, the patient's noncom pliance and not following up with visitations has prevented her from improving the status of her wou nd. At the moment we will plan to schedule the patient for OR debridement of the wound. No need to hold her anticoagulation prior to our debridement. Arrange for home health and the patient to have wound followup with us postoperatively. Continue with antibiotics as recommended. 2. Bilateral lower extremity venous insufficiency with ulcers (CEAP classification 6). It seems th e patient also has a significant history of venous insufficiency, with on and off venous stasis ulce rs. At the moment, the patient will require to undergo venous reflux studies that are done as an ou tpatient, not as an inpatient, to further delineate her superficial and venous system. Recommend applying an Antoni wrap from the toes all the way up to her upper thigh, for relieving her ed anahi. 3. End-stage renal disease: The patient at the moment does not have any issues with her left upper extremity fistula and will plan to continue monitoring her fistula, as she does have some areas of neointimal hyperplasia near the arterial anastomosis. This can be followed as an outpatient and a p ossible fistulogram if there are any issues during her sessions. Discussed the findings, plan and management with the patient and she understands. Thank you for allowing us to partake in the care of your patient. Please call with any questions. Dictated By: MAYLIN BHAT/BLANCA Conf#: [id number] DID#: [id number]
[2016-10-14] MEDS: COLLAGENASE 30 GM TUBE TOP SCH (16:36)
[2016-10-14] MEDS ORDERED: VANCOMYCIN IV PER PHARMACY XX SCH (17:00)
[2016-10-14] MEDS ORDERED: LEVOFLOXACIN 500MG/D5W (PMX) 100 ML IVPB SCH (17:00)
[2016-10-14] MEDS: CEFTRIAXONE 1 GM/NS 50 ML IVPB SCH (17:24)
[2016-10-14] MEDS: NICOTINE (21 MG/24 HR) PATCH TRANSDERM SCH (17:24)
--- NOTE | 2016-10-14 18:41 | CONS ---
DATE OF ADMISSION: 10/13/2016 DATE OF CONSULTATION: 10/14/2016 TYPE OF CONSULTATION: Infectious Disease. REASON FOR CONSULTATION: Antibiotic management. HISTORY OF PRESENT ILLNESS: Jaida Anthony is a 61-year-old female well known to us from previous ad mission. She comes in with painful wound of the left leg. Her past problems include: 1. Hypertension. 2. Adult-onset diabetes mellitus. 3. End-stage renal disease on hemodialysis. 4. Peripheral vascular disease. 5. Chronic atrial fibrillation. 6. Left lower extremity gangrenous decubitus, status post debridement and wound VAC placement. She was referred to the ED for evaluation and debridement of wound. Home health changes the dressings daily and wound was necrotic and needed debridement. Dr. Miranda was notified and she was referred to the emergency room. She has left thigh wound which is a chronic wound which she has been dealing w [facility] for the last 4 months. She had a wound VAC placed approximately 2 weeks ago with no crepitus no piedad in the area of the wound. Vascular surgery was notified. Patient is likely to have debridement . According to the admission on the , she was started on vancomycin. PAST MEDICAL HISTORY: As outlined. PAST SURGICAL HISTORY: Left upper extremity fistula creations, previous Perm-A-Cath catheter placem ent and C section. HOSPITAL COURSE: The patient was seen by Dr. Fuentes on the first who noted bilateral lower extre mity atherosclerosis with ulcers and claudication. Seeing that the patient had a component of mixed arterial and venous disease on her noninvasive studies, it was identified that the patient had infr apopliteal disease with monophasic flow. She underwent CT angiogram that demonstrates patient has b een having adequate inflow over popliteal segments which would allow for adequate wound healing of h er lateral thigh ulcer; however, the patient is noncompliant and not following up which had prevente d her from improving the status of the wound. At the moment, we plan to schedule the patient for OR debridement of the wound. PAST MEDICAL HISTORY: Operations as outlined. FAMILY HISTORY: Noncontributory. SOCIAL HISTORY: She is an active smoker. She denies alcohol or drug abuse. ALLERGIES: 1. PENICILLIN. 2. SULFA 3. CIPRO. MEDICATIONS: Per chart. REVIEW OF SYSTEMS: Noncontributory. PHYSICAL EXAMINATION: GENERAL: The patient is a well-developed, well-nourished female who is alert, responsive, in no acu te distress. VITAL SIGNS: Stable. She is afebrile. SKIN: Without generalized rash. HEENT: Within normal limits. NECK: Supple. LYMPH NODES: None palpable. CHEST: Decreased breath sounds at the bases. HEART: Without murmur or gallop. ABDOMEN: Soft, nontender, without organosplenomegaly or masses. EXTREMITIES: Without cyanosis, clubbing, or edema. She has an AV shunt in the left upper extremity and also a Perm-A-Cath. RECTAL AND GENITAL: Deferred. NEUROLOGIC: No focal neurological abnormalities. Her EKG shows atrial fibrillation. ANCILLARY LABORATORY DATA: White count of 10.2, H and H of 8.7 and 28.4, platelet count 306,000, BU N and creatinine 47/5.8, platelet count 248,000. IMPRESSION AND PLAN: The patient was begun on ceftriaxone and vancomycin, which she received once a nd she is currently a dialysis patient. SHE IS ALLERGIC TO PENICILLIN AND CIPROFLOXACIN. We will c ontinue her on her current therapy. I will dictate my findings to the hospitalist, Dr. Larry. An MRI of the lower extremities was done. I believe that she was started on Levaquin. I am not sure if s he will be able to tolerate that. I will dictate my findings to the hospitalist. Dictated By: MAJO PARK MD, JD/BLANCA Conf#: [id number] DID#: [id number]
[2016-10-14] MEDS: LACTOBACILLUS RHAMNOSUS CAP PO SCH (21:34)
[2016-10-14] MEDS: ATORVASTATIN 40 MG TAB PO SCH (21:35)
[2016-10-15] MEDS: ZOLPIDEM 5 MG TAB PO PRN ×2 (00:28→23:24)
[2016-10-15] MEDS: BENZONATATE 100 MG CAP PO SCH ×5 (00:28→23:26)
[2016-10-15] MEDS: ACCU-CHEK XX SCH (01:51)
[2016-10-15] MEDS: PANTOPRAZOLE 40 MG INJ IV SCH (05:15)
[2016-10-15 06:02] LABS: ADD SCAN DIFF NO
[2016-10-15 06:08] LABS: BASOPHIL # 0.1 10^3/ul (0.0-0.1); BASOPHILS % 0.7 % (0.0-2.0); EOSINOPHILS # 0.4 10^3/ul (0.0-0.5); EOSINOPHILS % 4.9 % (0.0-7.0); HEMOGLOBIN 7.8 g/dl (12.0-16.0); LYMPHOCYTES # 1.4 10^3/ul (0.8-2.9); LYMPHOCYTES % 16.7 % (15.0-51.0); MEAN CORPUSCULAR HEMOGLOBIN 30.8 pg (29.0-33.0); MEAN CORPUSCULAR VOLUME 102.8 fl (82.0-101.0); MEAN PLATELET VOLUME 9.8 fl (7.4-10.4); MONOCYTE # 1.4 10^3/ul (0.3-0.9); NEUTROPHIL # 5.3 10^3/ul (1.6-7.5); NEUTROPHILS % 60.9 % (39.0-77.0); PLATELET COUNT 236 10^3/UL (140-415); RED BLOOD COUNT 2.53 10^6/ul (4.20-5.40); RED CELL DISTRIBUTION WIDTH 17.9 % (11.5-14.5); WHITE BLOOD COUNT 8.6 10^3/ul (4.8-10.8)
[2016-10-15 06:45] LABS: CALCIUM 8.6 mg/dl (8.4-10.2); CREATININE 5.31 mg/dl (0.44-1.00); MAGNESIUM 2.3 mg/dl (1.7-2.5); POTASSIUM 5.5 mmol/L (3.5-5.1)
[2016-10-15 07:05] LABS: IRON 36 ug/dl (35-150)
[2016-10-15 07:14] LABS: TOTAL IRON BINDING CAPACITY 245 ug/dl (241-421)
[2016-10-15 07:28] VITALS: BP 119/69; RESP 20
[2016-10-15] MEDS: INSULIN ASPART [NOVOLOG] 3 ML PEN SC SCH ×5 (08:13→20:32)
[2016-10-15] MEDS: TIOTROPIUM 18 MCG CAPSULE INHA DEV INH SCH (08:28)
[2016-10-15] MEDS: CALCIUM ACETATE 667 MG CAP PO SCH ×3 (08:28→18:33)
[2016-10-15] MEDS: CINACALCET 30 MG TAB PO SCH (08:28)
[2016-10-15] MEDS: PYRIDOXINE 50 MG TAB PO SCH (08:28)
[2016-10-15] MEDS: MONTELUKAST 10 MG TAB PO SCH (08:29)
[2016-10-15] MEDS: METOCLOPRAMIDE 5 MG TAB PO SCH ×3 (08:29→17:19)
[2016-10-15] MEDS: AMLODIPINE 5 MG TAB PO SCH (08:29)
[2016-10-15] MEDS: LACTOBACILLUS RHAMNOSUS CAP PO SCH ×2 (08:29→20:20)
[2016-10-15] MEDS: LOSARTAN 50 MG TAB PO SCH (08:30)
[2016-10-15] MEDS: DILTIAZEM (SR) 60 MG CAP PO SCH (08:30)
[2016-10-15] MEDS: METOPROLOL (XL) 50 MG TAB PO SCH (08:31)
[2016-10-15] MEDS: BISACODYL (EC) 5 MG TAB PO SCH (08:31)
[2016-10-15] MEDS: NICOTINE (21 MG/24 HR) PATCH TRANSDERM SCH (08:32)
[2016-10-15] MEDS: ALBUMIN HUMAN 25% 100 ML IV SCH (08:32)
[2016-10-15] MEDS: FUROSEMIDE 40 MG INJ IV SCH (08:32)
[2016-10-15] MEDS: SALMETEROL/FLUTICASONE 250/50 INHA INH SCH ×2 (08:34→20:22)
[2016-10-15] MEDS: COLLAGENASE 30 GM TUBE TOP SCH (08:35)
[2016-10-15] MEDS: OXYCODONE/ACETAMINOPHEN (5/325) TAB PO PRN ×2 (12:00→19:50)
[2016-10-15] MEDS: DOCUSATE SODIUM 100 MG CAP PO SCH ×2 (12:20→23:26)
--- NOTE | 2016-10-15 12:28 | CONS ---
Date/Time of Note Date/Time of Note DATE: 10/15/16 TIME: 12:27 Assessment/Plan Assessment/Plan Chief Complaint/Hosp Course - ESRD on Hemodialysis @ [facility] [place] [facility] ( TTS ) - DIABETES - CHRONIC ANEMIA - HYPERTENSION - HYPERPHOSPHATEMIA - LOWER EXTREMITY CELLULITIS ( S/P Debridement & VAC ) PLAN: Bedside dialysis was done yesterday next HD on tuesday Will plan for UF ~ 4 Kg ( She has gained a lot of weight ) Continue with Abx Surgical evaluation Continue with all Meds Problems: Consultation Date/Type/Reason Admit Date/Time October 13, 2016 at 22:11 Initial Consult Date 10/14/16 Type of Consultation: NEPHROLOGY Reason for Consultation ESRD on Hemodialysis 24 HR Interval Summary Constitutional: improved, no complaints Exam/Review of Systems Vital Signs Vitals Vital Signs Date Time Temp Pulse Resp B/P Pulse Ox O2 Delivery O2 Flow Rate FiO2 10/15/16 07:28 97.8 98 20 119/69 92 10/13/16 23:03 Room Air 10/13/16 22:37 21 Intake and Output 10/14/16 10/14/16 10/15/16 15:00 23:00 07:00 Intake Total 500 ml 1000 ml 300 ml Output Total 4500 ml Balance -4000 ml 1000 ml 300 ml Exam Constitutional: alert, oriented Psych: no complaints Head: normocephalic Respiratory: crackles/rales Cardiovascular: edema, regular rate and rhythm, systolic murmur Gastrointestinal: soft Results Result Diagram: 10/15/16 0520 10/15/16 0520 Results 24 hrs Laboratory Tests Test 10/14/16 13:41 10/14/16 17:17 10/14/16 21:29 10/15/16 01:50 Bedside Glucose 153 277 H 276 H 342 H Test 10/15/16 05:20 10/15/16 08:09 10/15/16 12:02 White Blood Count 8.6 Red Blood Count 2.53 L Hemoglobin 7.8 L Hematocrit 26.0 L Mean Corpuscular Volume 102.8 H Mean Corpuscular Hemoglobin 30.8 Mean Corpuscular Hemoglobin Concent 30.0 L Red Cell Distribution Width 17.9 H Platelet Count 236 Mean Platelet Volume 9.8 Neutrophils % 60.9 Lymphocytes % 16.7 Monocytes % 16.0 H Eosinophils % 4.9 Basophils % 0.7 Nucleated Red Blood Cells % 0.0 Neutrophils # 5.3 Lymphocytes # 1.4 Monocytes # 1.4 H Eosinophils # 0.4 Basophils # 0.1 Nucleated Red Blood Cells # 0.0 Sodium Level 141 Potassium Level 5.5 H Chloride Level 101 Carbon Dioxide Level 26 Anion Gap 20 #H Blood Urea Nitrogen 45 H Creatinine 5.31 H Glucose Level 272 H Calcium Level 8.6 Magnesium Level 2.3 Iron Level 36 Total Iron Binding Capacity 245 Percent Iron Saturation 15 L Bedside Glucose 275 H 278 H Medications Medications Current Medications Dextrose (D50w Syringe) ONCE PRN IV POC BLOOD GLUCOSE <250 MG/DL Last administered on 10/13/16 22:54; Admin Dose 50 ML; Start 10/13/16 at 22:30 Lorazepam (Ativan) 0.5 mg Q6H PRN IV ANXIETY; Start 10/13/16 at 23:30 Ondansetron HCl (Zofran Inj) 4 mg Q6H PRN IV NAUSEA AND/OR VOMITING; Start at 23:30 Acetaminophen (Tylenol Tab) 650 mg Q6H PRN PO PAIN LEVEL 1-3 OR FEVER Last administered on 10/14/16 21:47; Admin Dose 650 MG; Start 10/13/16 at 23:30 Oxycodone/ Acetaminophen (Percocet (5/ 325)) 2 tab Q6H PRN PO PAIN LEVEL 7-10 Last administered on 10/15/16 12:00; Admin Dose 2 TAB; Start 10/13/16 at 23:30 Docusate Sodium (Colace) 100 mg Q12H PO Last administered on 10/15/16 12:20; Admin Dose 100 MG; Start 10/13/16 at 23:30 Bisacodyl (Dulcolax) 5 mg DAILY PO Last administered on 10/15/16 08:31; Admin Dose 5 MG; Start 10/14/16 at 09:00 Pantoprazole (Protonix Iv) 40 mg DAILY@06 IV Last administered on 10/15/16 05: 15; Admin Dose 40 MG; Start 10/14/16 at 06:00 Amlodipine Besylate (Norvasc) 5 mg DAILY PO Last administered on 10/15/16 08:29 ; Admin Dose 5 MG; Start 10/14/16 at 09:00 Atorvastatin Calcium (Lipitor) 40 mg QHS PO Last administered on 10/14/16 21:35 ; Admin Dose 40 MG; Start 10/14/16 at 21:00 Benzonatate (Tessalon) 100 mg Q6 PO Last administered on 10/15/16 12:01; Admin Dose 100 MG; Start 10/14/16 at 06:00 Cinacalcet (Sensipar) 30 mg DAILY PO Last administered on 10/15/16 08:28; Admin Dose 30 MG; Start 10/14/16 at 09:00 Diltiazem HCl (Cardizem Sr) 60 mg Q12 PO Last administered on 10/14/16 23:13; Admin Dose 60 MG; Start 10/14/16 at 09:00 Losartan Potassium (Cozaar) 50 mg BID PO Last administered on 10/14/16 21:34; Admin Dose 50 MG; Start 10/14/16 at 09:00 Metoprolol Succinate (Toprol Xl) 50 mg DAILY PO Last administered on 10/15/16 08:31; Admin Dose 50 MG; Start 10/14/16 at 09:00 Montelukast Sodium (Singulair) 10 mg QAM PO Last administered on 10/15/16 08:29 ; Admin Dose 10 MG; Start 10/14/16 at 09:00 Pyridoxine HCl (Vitamin B6) 50 mg DAILY PO Last administered on 10/15/16 08:28 ; Admin Dose 50 MG; Start 10/14/16 at 09:00 Tiotropium [place] (Spiriva) 18 inh DAILY INH Last administered on 10/15/16 08: 28; Admin Dose 18 INH; Start 10/14/16 at 09:00 Zolpidem Tartrate (Ambien) 5 mg QHS PRN PO INSOMNIA Last administered on 00:28; Admin Dose 5 MG; Start 10/14/16 at 00:30 Salmeterol Xinafoate/ Fluticasone (Advair 250/50 Diskus) 1 inh BID INH Last administered on 10/15/16 08:34; Admin Dose 1 INH; Start 10/14/16 at 09:00 Miscellaneous Information 1 ea NOTE XX ; Start 10/14/16 at 01:00 Glucose (Glutose) 15 gm Q15M PRN PO DECREASED GLUCOSE; Start 10/14/16 at 01:00 Glucose (Glutose) 22.5 gm Q15M PRN PO DECREASED GLUCOSE; Start 10/14/16 at 01:00 Dextrose (D50w Syringe) 25 ml Q15M PRN IV DECREASED GLUCOSE; Start 10/14/16 at 01:00 Dextrose (D50w Syringe) 50 ml Q15M PRN IV DECREASED GLUCOSE; Start 10/14/16 at 01:00 Glucagon (Glucagen) 1 mg Q15M PRN IM DECREASED GLUCOSE; Start 10/14/16 at 01:00 Glucose (Glutose) 15 gm Q15M PRN BUCCAL DECREASED GLUCOSE; Start 10/14/16 at 01: 00 Diagnostic Test (Pha) (Accu-Chek) 1 ea 02 XX ; Start 10/15/16 at 02:00 Collagenase (Santyl) 1 applic DAILY TOP Last administered on 10/15/16 08:35; Admin Dose 1 APPLIC; Start 10/14/16 at 16:00 Nicotine (Nicoderm 21 Mg/ 24hr) 1 patch DAILY TRANSDERM Last administered on 08:32; Admin Dose 1 PATCH; Start 10/14/16 at 17:00 Lactobacillus Acidophilus/ Rhamnosus (Culturelle) 1 cap BID PO Last administered on 10/15/16 08:29; Admin Dose 1 CAP; Start 10/14/16 at 21:00 Acetaminophen/ Hydrocodone Bitart 1 tab 1 tab Q6H PRN PO pain; Start 10/14/16 at 17:00 Albumin Human (Albumin Human 25%) 100 ml @ 100 mls/hr DAILY IV Last administered on 10/15/16 08:32; Admin Dose 100 MLS/HR; Start 10/15/16 at 09:00; Stop 10/17/16 at 09:59 Furosemide 40 mg 40 mg DAILY IV Last administered on 10/15/16 08:32; Admin Dose 40 MG; Start 10/15/16 at 09:00 Ceftriaxone Sodium (Rocephin) 50 ml @ 100 mls/hr Q24H IVPB Last administered on 10/14/16 17:24; Admin Dose 100 MLS/HR; Start 10/14/16 at 18:00 BECKY GAMBLE MD Oct 15, 2016 12:28
--- NOTE | 2016-10-15 13:20 | CONS ---
Date/Time of Note Date/Time of Note DATE: 10/15/16 TIME: 13:18 Assessment/Plan Assessment/Plan Chief Complaint/Hosp Course SUBJECTIVE: No acute changes overnight. The patient is sleeping, looks comfortable, no fevers. INDWELLINGS: Left upper extremity AV fistula. ANTIMICROBIALS: The patient is on: 1. IV vancomycin. 2. Rocephin. PHYSICAL EXAMINATION: GENERAL: This is a morbidly obese, well-developed, elderly woman who is in no distress. HEENT: Head atraumatic, normocephalic. Sclerae anicteric. Buccal mucosa dry. NECK: Supple. CHEST: Rise symmetrical. Breath sounds clear. HEART: S1, S2. ABDOMEN: Soft, bowel sounds present. EXTREMITIES: Left lower extremity dsg intact, both BLE with edema. ASSESSMENT: 1. Left lower extremity cellulitis with bilateral lower extremities chronic venous insufficiency. 2. Diabetes. 3. End-stage renal disease. 4. Morbid obesity. 5. Atrial fibrillation. 6. Chronic obstructive pulmonary disease. PLAN: The patient remains stable. Continue antibiotics. Follow podiatry and vascular recommendations. DW staff Problems: Consultation Date/Type/Reason Admit Date/Time October 13, 2016 at 22:11 Initial Consult Date 10/14/16 Type of Consultation: ID Exam/Review of Systems Vital Signs Vitals Vital Signs Date Time Temp Pulse Resp B/P Pulse Ox O2 Delivery O2 Flow Rate FiO2 10/15/16 07:28 97.8 98 20 119/69 92 10/13/16 23:03 Room Air 10/13/16 22:37 21 Intake and Output 10/14/16 10/14/16 10/15/16 15:00 23:00 07:00 Intake Total 500 ml 1000 ml 300 ml Output Total 4500 ml Balance -4000 ml 1000 ml 300 ml Results Result Diagram: 10/15/16 0520 10/15/16 0520 Results 24 hrs Laboratory Tests Test 10/14/16 13:41 10/14/16 17:17 10/14/16 21:29 10/15/16 01:50 Bedside Glucose 153 277 H 276 H 342 H Test 10/15/16 05:20 10/15/16 08:09 10/15/16 12:02 White Blood Count 8.6 Red Blood Count 2.53 L Hemoglobin 7.8 L Hematocrit 26.0 L Mean Corpuscular Volume 102.8 H Mean Corpuscular Hemoglobin 30.8 Mean Corpuscular Hemoglobin Concent 30.0 L Red Cell Distribution Width 17.9 H Platelet Count 236 Mean Platelet Volume 9.8 Neutrophils % 60.9 Lymphocytes % 16.7 Monocytes % 16.0 H Eosinophils % 4.9 Basophils % 0.7 Nucleated Red Blood Cells % 0.0 Neutrophils # 5.3 Lymphocytes # 1.4 Monocytes # 1.4 H Eosinophils # 0.4 Basophils # 0.1 Nucleated Red Blood Cells # 0.0 Sodium Level 141 Potassium Level 5.5 H Chloride Level 101 Carbon Dioxide Level 26 Anion Gap 20 #H Blood Urea Nitrogen 45 H Creatinine 5.31 H Glucose Level 272 H Calcium Level 8.6 Magnesium Level 2.3 Iron Level 36 Total Iron Binding Capacity 245 Percent Iron Saturation 15 L Bedside Glucose 275 H 278 H Medications Medications Current Medications Dextrose (D50w Syringe) ONCE PRN IV POC BLOOD GLUCOSE <250 MG/DL Last administered on 10/13/16 22:54; Admin Dose 50 ML; Start 10/13/16 at 22:30 Lorazepam (Ativan) 0.5 mg Q6H PRN IV ANXIETY; Start 10/13/16 at 23:30 Ondansetron HCl (Zofran Inj) 4 mg Q6H PRN IV NAUSEA AND/OR VOMITING; Start at 23:30 Acetaminophen (Tylenol Tab) 650 mg Q6H PRN PO PAIN LEVEL 1-3 OR FEVER Last administered on 10/14/16 21:47; Admin Dose 650 MG; Start 10/13/16 at 23:30 Oxycodone/ Acetaminophen (Percocet (5/ 325)) 2 tab Q6H PRN PO PAIN LEVEL 7-10 Last administered on 10/15/16 12:00; Admin Dose 2 TAB; Start 10/13/16 at 23:30 Docusate Sodium (Colace) 100 mg Q12H PO Last administered on 10/15/16 12:20; Admin Dose 100 MG; Start 10/13/16 at 23:30 Bisacodyl (Dulcolax) 5 mg DAILY PO Last administered on 10/15/16 08:31; Admin Dose 5 MG; Start 10/14/16 at 09:00 Pantoprazole (Protonix Iv) 40 mg DAILY@06 IV Last administered on 10/15/16 05: 15; Admin Dose 40 MG; Start 10/14/16 at 06:00 Amlodipine Besylate (Norvasc) 5 mg DAILY PO Last administered on 10/15/16 08:29 ; Admin Dose 5 MG; Start 10/14/16 at 09:00 Atorvastatin Calcium (Lipitor) 40 mg QHS PO Last administered on 10/14/16 21:35 ; Admin Dose 40 MG; Start 10/14/16 at 21:00 Benzonatate (Tessalon) 100 mg Q6 PO Last administered on 10/15/16 12:01; Admin Dose 100 MG; Start 10/14/16 at 06:00 Cinacalcet (Sensipar) 30 mg DAILY PO Last administered on 10/15/16 08:28; Admin Dose 30 MG; Start 10/14/16 at 09:00 Diltiazem HCl (Cardizem Sr) 60 mg Q12 PO Last administered on 10/14/16 23:13; Admin Dose 60 MG; Start 10/14/16 at 09:00 Losartan Potassium (Cozaar) 50 mg BID PO Last administered on 10/14/16 21:34; Admin Dose 50 MG; Start 10/14/16 at 09:00 Metoprolol Succinate (Toprol Xl) 50 mg DAILY PO Last administered on 10/15/16 08:31; Admin Dose 50 MG; Start 10/14/16 at 09:00 Montelukast Sodium (Singulair) 10 mg QAM PO Last administered on 10/15/16 08:29 ; Admin Dose 10 MG; Start 10/14/16 at 09:00 Pyridoxine HCl (Vitamin B6) 50 mg DAILY PO Last administered on 10/15/16 08:28 ; Admin Dose 50 MG; Start 10/14/16 at 09:00 Tiotropium [place] (Spiriva) 18 inh DAILY INH Last administered on 10/15/16 08: 28; Admin Dose 18 INH; Start 10/14/16 at 09:00 Zolpidem Tartrate (Ambien) 5 mg QHS PRN PO INSOMNIA Last administered on 00:28; Admin Dose 5 MG; Start 10/14/16 at 00:30 Salmeterol Xinafoate/ Fluticasone (Advair 250/50 Diskus) 1 inh BID INH Last administered on 10/15/16 08:34; Admin Dose 1 INH; Start 10/14/16 at 09:00 Miscellaneous Information 1 ea NOTE XX ; Start 10/14/16 at 01:00 Glucose (Glutose) 15 gm Q15M PRN PO DECREASED GLUCOSE; Start 10/14/16 at 01:00 Glucose (Glutose) 22.5 gm Q15M PRN PO DECREASED GLUCOSE; Start 10/14/16 at 01:00 Dextrose (D50w Syringe) 25 ml Q15M PRN IV DECREASED GLUCOSE; Start 10/14/16 at 01:00 Dextrose (D50w Syringe) 50 ml Q15M PRN IV DECREASED GLUCOSE; Start 10/14/16 at 01:00 Glucagon (Glucagen) 1 mg Q15M PRN IM DECREASED GLUCOSE; Start 10/14/16 at 01:00 Glucose (Glutose) 15 gm Q15M PRN BUCCAL DECREASED GLUCOSE; Start 10/14/16 at 01: 00 Diagnostic Test (Pha) (Accu-Chek) 1 ea 02 XX ; Start 10/15/16 at 02:00 Collagenase (Santyl) 1 applic DAILY TOP Last administered on 10/15/16 08:35; Admin Dose 1 APPLIC; Start 10/14/16 at 16:00 Nicotine (Nicoderm 21 Mg/ 24hr) 1 patch DAILY TRANSDERM Last administered on 08:32; Admin Dose 1 PATCH; Start 10/14/16 at 17:00 Lactobacillus Acidophilus/ Rhamnosus (Culturelle) 1 cap BID PO Last administered on 10/15/16 08:29; Admin Dose 1 CAP; Start 10/14/16 at 21:00 Acetaminophen/ Hydrocodone Bitart 1 tab 1 tab Q6H PRN PO pain; Start 10/14/16 at 17:00 Albumin Human (Albumin Human 25%) 100 ml @ 100 mls/hr DAILY IV Last administered on 10/15/16 08:32; Admin Dose 100 MLS/HR; Start 10/15/16 at 09:00; Stop 10/17/16 at 09:59 Furosemide 40 mg 40 mg DAILY IV Last administered on 10/15/16 08:32; Admin Dose 40 MG; Start 10/15/16 at 09:00 Ceftriaxone Sodium (Rocephin) 50 ml @ 100 mls/hr Q24H IVPB Last administered on 10/14/16t 17:24; Admin Dose 100 MLS/HR; Start 10/14/16 at 18:00 TODD RAMIRES NP Oct 15, 2016 13:20
--- NOTE | 2016-10-15 15:20 | PN ---
Date/Time of Note Date/Time of Note DATE: 10/15/16 TIME: 15:11 Assessment/Plan VTE Prophylaxis VTE Prophylaxis Intervention: other (Eliquis) Lines/Catheters IV Catheter Type (from [facility]): Peripheral IV Urinary Cath still in place: No Assessment/Plan Assessment/Plan This is a 61-year-old female being admitted to the telemetry floor for: 1. Chronic infected Left thigh wound. * This is a chronic wound the patient has been dealing with for approximately 4 months she had a wound VAC placed approximately 2 weeks ago. At the current time there is no crepitus noted at the area of the wound. * Will get an MRI to ensure no bony involvement 2. Atrial fibrillation. Patient is currently rate controlled / anticoagulated on eliquis 3. End-stage renal disease. We will consult nephrology for dialysis as her schedule is Tuesday and Tuesday. Will continue her home medications. 4. Iron deficiency Anemia, likely of chronic disease and end-stage renal disease. . 5. Hypertension. Continue home medications. 6. Diabetes type 2 : uncontrolled 7. Dyslipidemia. Continue statin. 8. Anasarca: Consider supplemental albumin therapy to help with diuresis if okay with nephrology 9. Tobacco use and abuse: Plan: * F/u MRI and wound cultures / appreciate ID * Debridement planned for next week per vascular * Titrate meds for better DM control * Transfuse 1 unit of PRBC with next HD * Patient meds are dosed wrongly, will adjust and titrate * Hold ARB for persistent hyperkalemia * IV iron infusion for iron deficiency * Plan to hold eliquis day before surgery and switch to heparin drip * Pt. was lectured for greater than 3 minutes on the health risks of continued smoking and the benefits of cessation and this will continue to be reinforced throughout hospitalization. DVT and GI prophylaxis: Eliquis and Protonix Further treatment strategy will be implemented as per the clinical course. Subjective 24 Hr Interval Summary Free Text/Dictation Patient seen and examined. Nursing reports no acute overnight events. No new issues Exam/Review of Systems Vital Signs Vitals Vital Signs Date Time Temp Pulse Resp B/P Pulse Ox O2 Delivery O2 Flow Rate FiO2 10/15/16 07:28 97.8 98 20 119/69 92 10/13/16 23:03 Room Air 10/13/16 22:37 21 Intake and Output 10/14/16 10/14/16 10/15/16 15:00 23:00 07:00 Intake Total 500 ml 1000 ml 300 ml Output Total 4500 ml Balance -4000 ml 1000 ml 300 ml Exam General: Patient is well-developed well-nourished, obese /the patient is alert oriented -3 lying comfortably in bed. HEENT: Atraumatic, normocephalic. The pupils are equal, round and reactive. Extraocular motor are intact Neck: Supple with full range of motion. No rigidity or meningismus Chest: Nontender Lungs: Clear to auscultation bilaterally no crackles rales or wheezing Heart: Normal S1-S2, Irregular rhythm and rate. No overt murmur appreciated Abdomen: Soft , nontender, nondistended , bowel sounds are present. No guarding no rebound tenderness , No masses or organomegaly. No costovertebral temporal angle mass Extremities: Wound of left lateral thigh, very deep, and covered with yellowish crust. Muscle and tendons visible underneath. * Is new medication left upper extremity palpable AV shunt thrill. * Patient also had bilateral lower extremity edema all the way to her thighs, and she has multiple small crusted over ulcers the posterior part of left bahena and also the back of right leg Neurologic: Normal mental status, speech normal, no focal weakness Results Result Diagram: 10/15/16 0520 10/15/16 0520 Results 24 hrs Laboratory Tests Test 10/14/16 17:17 10/14/16 21:29 10/15/16 01:50 10/15/16 05:20 Bedside Glucose 277 H 276 H 342 H White Blood Count 8.6 Red Blood Count 2.53 L Hemoglobin 7.8 L Hematocrit 26.0 L Mean Corpuscular Volume 102.8 H Mean Corpuscular Hemoglobin 30.8 Mean Corpuscular Hemoglobin Concent 30.0 L Red Cell Distribution Width 17.9 H Platelet Count 236 Mean Platelet Volume 9.8 Neutrophils % 60.9 Lymphocytes % 16.7 Monocytes % 16.0 H Eosinophils % 4.9 Basophils % 0.7 Nucleated Red Blood Cells % 0.0 Neutrophils # 5.3 Lymphocytes # 1.4 Monocytes # 1.4 H Eosinophils # 0.4 Basophils # 0.1 Nucleated Red Blood Cells # 0.0 Sodium Level 141 Potassium Level 5.5 H Chloride Level 101 Carbon Dioxide Level 26 Anion Gap 20 #H Blood Urea Nitrogen 45 H Creatinine 5.31 H Glucose Level 272 H Calcium Level 8.6 Magnesium Level 2.3 Iron Level 36 Total Iron Binding Capacity 245 Percent Iron Saturation 15 L Test 10/15/16 08:09 10/15/16 12:02 Bedside Glucose 275 H 278 H Medications Medications Current Medications Dextrose (D50w Syringe) ONCE PRN IV POC BLOOD GLUCOSE <250 MG/DL Last administered on 10/13/16 22:54; Admin Dose 50 ML; Start 10/13/16 at 22:30 Lorazepam (Ativan) 0.5 mg Q6H PRN IV ANXIETY; Start 10/13/16 at 23:30 Ondansetron HCl (Zofran Inj) 4 mg Q6H PRN IV NAUSEA AND/OR VOMITING; Start at 23:30 Acetaminophen (Tylenol Tab) 650 mg Q6H PRN PO PAIN LEVEL 1-3 OR FEVER Last administered on 10/14/16 21:47; Admin Dose 650 MG; Start 10/13/16 at 23:30 Oxycodone/ Acetaminophen (Percocet (5/ 325)) 2 tab Q6H PRN PO PAIN LEVEL 7-10 Last administered on 10/15/16 12:00; Admin Dose 2 TAB; Start 10/13/16 at 23:30 Docusate Sodium (Colace) 100 mg Q12H PO Last administered on 10/15/16 12:20; Admin Dose 100 MG; Start 10/13/16 at 23:30 Bisacodyl (Dulcolax) 5 mg DAILY PO Last administered on 10/15/16 08:31; Admin Dose 5 MG; Start 10/14/16 at 09:00 Pantoprazole (Protonix Iv) 40 mg DAILY@06 IV Last administered on 10/15/16 05: 15; Admin Dose 40 MG; Start 10/14/16 at 06:00 Amlodipine Besylate (Norvasc) 5 mg DAILY PO Last administered on 10/15/16 08:29 ; Admin Dose 5 MG; Start 10/14/16 at 09:00 Atorvastatin Calcium (Lipitor) 40 mg QHS PO Last administered on 10/14/16 21:35 ; Admin Dose 40 MG; Start 10/14/16 at 21:00 Benzonatate (Tessalon) 100 mg Q6 PO Last administered on 10/15/16 12:01; Admin Dose 100 MG; Start 10/14/16 at 06:00 Cinacalcet (Sensipar) 30 mg DAILY PO Last administered on 10/15/16 08:28; Admin Dose 30 MG; Start 10/14/16 at 09:00 Diltiazem HCl (Cardizem Sr) 60 mg Q12 PO Last administered on 10/14/16 23:13; Admin Dose 60 MG; Start 10/14/16 at 09:00 Losartan Potassium (Cozaar) 50 mg BID PO Last administered on 10/14/16 21:34; Admin Dose 50 MG; Start 10/14/16 at 09:00 Metoprolol Succinate (Toprol Xl) 50 mg DAILY PO Last administered on 10/15/16 08:31; Admin Dose 50 MG; Start 10/14/16 at 09:00 Montelukast Sodium (Singulair) 10 mg QAM PO Last administered on 10/15/16 08:29 ; Admin Dose 10 MG; Start 10/14/16 at 09:00 Pyridoxine HCl (Vitamin B6) 50 mg DAILY PO Last administered on 10/15/16 08:28 ; Admin Dose 50 MG; Start 10/14/16 at 09:00 Tiotropium [place] (Spiriva) 18 inh DAILY INH Last administered on 10/15/16 08: 28; Admin Dose 18 INH; Start 10/14/16 at 09:00 Zolpidem Tartrate (Ambien) 5 mg QHS PRN PO INSOMNIA Last administered on 00:28; Admin Dose 5 MG; Start 10/14/16 at 00:30 Salmeterol Xinafoate/ Fluticasone (Advair 250/50 Diskus) 1 inh BID INH Last administered on 10/15/16 08:34; Admin Dose 1 INH; Start 10/14/16 at 09:00 Miscellaneous Information 1 ea NOTE XX ; Start 10/14/16 at 01:00 Glucose (Glutose) 15 gm Q15M PRN PO DECREASED GLUCOSE; Start 10/14/16 at 01:00 Glucose (Glutose) 22.5 gm Q15M PRN PO DECREASED GLUCOSE; Start 10/14/16 at 01:00 Dextrose (D50w Syringe) 25 ml Q15M PRN IV DECREASED GLUCOSE; Start 10/14/16 at 01:00 Dextrose (D50w Syringe) 50 ml Q15M PRN IV DECREASED GLUCOSE; Start 10/14/16 at 01:00 Glucagon (Glucagen) 1 mg Q15M PRN IM DECREASED GLUCOSE; Start 10/14/16 at 01:00 Glucose (Glutose) 15 gm Q15M PRN BUCCAL DECREASED GLUCOSE; Start 10/14/16 at 01: 00 Diagnostic Test (Pha) (Accu-Chek) 1 ea 02 XX ; Start 10/15/16 at 02:00 Collagenase (Santyl) 1 applic DAILY TOP Last administered on 10/15/16 08:35; Admin Dose 1 APPLIC; Start 10/14/16 at 16:00 Nicotine (Nicoderm 21 Mg/ 24hr) 1 patch DAILY TRANSDERM Last administered on 08:32; Admin Dose 1 PATCH; Start 10/14/16 at 17:00 Lactobacillus Acidophilus/ Rhamnosus (Culturelle) 1 cap BID PO Last administered on 10/15/16 08:29; Admin Dose 1 CAP; Start 10/14/16 at 21:00 Acetaminophen/ Hydrocodone Bitart 1 tab 1 tab Q6H PRN PO pain; Start 10/14/16 at 17:00 Albumin Human (Albumin Human 25%) 100 ml @ 100 mls/hr DAILY IV Last administered on 10/15/16 08:32; Admin Dose 100 MLS/HR; Start 10/15/16 at 09:00; Stop 10/17/16 at 09:59 Furosemide 40 mg 40 mg DAILY IV Last administered on 10/15/16 08:32; Admin Dose 40 MG; Start 10/15/16 at 09:00 Ceftriaxone Sodium (Rocephin) 50 ml @ 100 mls/hr Q24H IVPB Last administered on 10/14/16 17:24; Admin Dose 100 MLS/HR; Start 10/14/16 at 18:00 Procedures Procedures Cultures as well as MRI still pending. WILLIAM CLARK Oct 15, 2016 15:20
[2016-10-15] MEDS: SOD FERRIC GLUC COMPLX 125 MG in SOD CHLORIDE 0.9% 100 ML IVPB SCH (18:34)
[2016-10-15 19:37] VITALS: BP 135/60; RESP 18
[2016-10-15] MEDS: ATORVASTATIN 40 MG TAB PO SCH (20:20)
[2016-10-15] MEDS: APIXABAN 5 MG TABLET PO SCH (20:20)
[2016-10-15] MEDS: METOPROLOL 25 MG TAB PO SCH (20:21)
[2016-10-15] MEDS: CEFTRIAXONE 1 GM/NS 50 ML IVPB SCH (20:22)
[2016-10-15] MEDS: INSULIN DETEMIR [LEVEMIR] 3ML CART SC SCH (20:32)
[2016-10-15] MEDS: HYDROCODONE/APAP (5/325) TAB PO PRN (23:24)
[2016-10-16] VITALS (10 sets, daily range): BP systolic 118–133; BP diastolic 60–76; PULSE 98–110; RESP 18–22
[2016-10-16] MEDS ORDERED: ACCU-CHEK XX SCH (02:00)
[2016-10-16] MEDS: ACCU-CHEK XX SCH (02:56)
[2016-10-16] MEDS: BENZONATATE 100 MG CAP PO SCH ×4 (05:42→23:05)
[2016-10-16] MEDS: PANTOPRAZOLE 40 MG INJ IV SCH (05:42)
[2016-10-16] MEDS: OXYCODONE/ACETAMINOPHEN (5/325) TAB PO PRN ×3 (05:43→23:07)
[2016-10-16 05:57] LABS: ADD SCAN DIFF NO
[2016-10-16 06:04] LABS: BASOPHIL # 0.1 10^3/ul (0.0-0.1); BASOPHILS % 0.8 % (0.0-2.0); EOSINOPHILS # 0.5 10^3/ul (0.0-0.5); EOSINOPHILS % 6.2 % (0.0-7.0); HEMATOCRIT 25.1 % (37.0-47.0); HEMOGLOBIN 7.7 g/dl (12.0-16.0); LYMPHOCYTES # 1.4 10^3/ul (0.8-2.9); MEAN CORPUSCULAR HEMOGLOBIN 31.8 pg (29.0-33.0); MEAN CORPUSCULAR HGB CONC 30.7 g/dl (32.0-37.0); MEAN CORPUSCULAR VOLUME 103.7 fl (82.0-101.0); MEAN PLATELET VOLUME 9.9 fl (7.4-10.4); MONOCYTE # 1.5 10^3/ul (0.3-0.9); NEUTROPHIL # 4.9 10^3/ul (1.6-7.5); NEUTROPHILS % 57.9 % (39.0-77.0); PLATELET COUNT 257 10^3/UL (140-415); RED BLOOD COUNT 2.42 10^6/ul (4.20-5.40); RED CELL DISTRIBUTION WIDTH 17.7 % (11.5-14.5); WHITE BLOOD COUNT 8.4 10^3/ul (4.8-10.8)
[2016-10-16 06:39] LABS: MONOCYTES % 17.6 % (0.0-11.0)
[2016-10-16 07:07] LABS: CALCIUM 9.1 mg/dl (8.4-10.2); CREATININE 6.25 mg/dl (0.44-1.00)
[2016-10-16 07:14] LABS: POTASSIUM 6.2 mmol/L (3.5-5.1)
[2016-10-16] MEDS ORDERED: HYDROmorphONE 1 MG/ML SYG IV STA (07:18)
[2016-10-16] MEDS ORDERED: LORAZEPAM 2 MG INJ IV ONE ×3 (07:30→15:00)
[2016-10-16] MEDS ORDERED: INSULIN ASPART [NOVOLOG] 3 ML PEN SC ONE (08:00)
[2016-10-16] MEDS ORDERED: DEXTROSE 50% 50 ML SYRINGE IV ONE (08:00)
--- NOTE | 2016-10-16 08:28 | PN ---
Date/Time of Note Date/Time of Note DATE: 10/16/16 TIME: 08:19 Assessment/Plan VTE Prophylaxis VTE Prophylaxis Intervention: other (Eliquis) Lines/Catheters IV C[facility] Type (from [facility] Saline Lock Urinary Cath still in place: No Assessment/Plan Assessment/Plan This is a 61-year-old female being admitted to the telemetry floor for: 1. Chronic infected Left thigh wound. * This is a chronic wound the patient has been dealing with for approximately 4 months she had a wound VAC placed approximately 2 weeks ago. At the current time there is no crepitus noted at the area of the wound. * Will get an MRI to ensure no bony involvement 2. Atrial fibrillation. Patient is currently rate controlled / anticoagulated on Eliquis 3. End-stage renal disease. We will consult nephrology for dialysis as her schedule is Tuesday and Tuesday. Will continue her home medications. 4. Iron deficiency Anemia, likely of chronic disease and end-stage renal disease. . 5. Hypertension. Continue home medications. 6. Diabetes type 2 : uncontrolled 7. Dyslipidemia. Continue statin. 8. Anasarca: Continue supplemental albumin therapy to help with diuresis if okay with nephrology 9. Tobacco use and abuse: Plan: * F/u MRI and wound cultures / appreciate ID * Debridement planned for next week per vascular * Patient is getting transfused today with HD * Increase Cardizem for better rate control * Hold ARB for persistent hyperkalemia * Continue IV iron infusion for iron deficiency * Plan to hold eliquis day before surgery and switch to heparin drip * Pt. was lectured for greater than 3 minutes on the health risks of continued smoking and the benefits of cessation and this will continue to be reinforced throughout hospitalization. DVT and GI prophylaxis: Eliquis and Protonix Further treatment strategy will be implemented as per the clinical course. Subjective 24 Hr Interval Summary Free Text/Dictation Patient seen and examined. currently on HD feels Novolog makes her gain weight, will take it but is open to options Unable to do MRI last nite 2/2 claustrophobia, repeat attempt today Patient reports improvement in edema Exam/Review of Systems Vital Signs Vitals Vital Signs Date Time Temp Pulse Resp B/P Pulse Ox O2 Delivery O2 Flow Rate FiO2 10/16/16 07:45 98.0 101 22 123/63 96 10/13/16 23:03 Room Air 10/13/16 22:37 21 Intake and Output 10/15/16 10/15/16 10/16/16 15:00 23:00 07:00 Intake Total 100 ml 1810 ml 450 ml Balance 100 ml 1810 ml 450 ml Exam General: Patient is well-developed well-nourished, obese /the patient is alert oriented -3 lying comfortably in bed. HEENT: Atraumatic, normocephalic. The pupils are equal, round and reactive. Extraocular motor are intact Neck: Supple with full range of motion. No rigidity or meningismus Chest: Nontender Lungs: Clear to auscultation bilaterally no crackles rales or wheezing Heart: Normal S1-S2, Irregular rhythm and rate. No overt murmur appreciated Abdomen: Soft , nontender, nondistended , bowel sounds are present. No guarding no rebound tenderness , No masses or organomegaly. No costovertebral temporal angle mass Extremities: Wound of left lateral thigh now still oozing pus, but will less yellowish crusting * left upper extremity palpable AV shunt thrill. * Patient also had bilateral lower extremity edema all the way to her thighs, and she has multiple small crusted over ulcers the posterior part of left bahena and also the back of right leg Neurologic: Normal mental status, speech normal, no focal weakness Results Result Diagram: 10/16/16 0453 10/16/16 0458 Results 24 hrs Laboratory Tests Test 10/15/16 12:02 10/15/16 18:32 10/15/16 20:18 10/16/16 02:49 Bedside Glucose 278 H 245 H 264 H 153 Test 10/16/16 04:50 10/16/16 04:53 10/16/16 04:58 Random Vancomycin Level 16.6 White Blood Count 8.4 Red Blood Count 2.42 L Hemoglobin 7.7 L Hematocrit 25.1 L Mean Corpuscular Volume 103.7 H Mean Corpuscular Hemoglobin 31.8 Mean Corpuscular Hemoglobin Concent 30.7 L Red Cell Distribution Width 17.7 H Platelet Count 257 Mean Platelet Volume 9.9 Neutrophils % 57.9 Lymphocytes % 17.0 Monocytes % 17.6 H Eosinophils % 6.2 Basophils % 0.8 Nucleated Red Blood Cells % 0.0 Neutrophils # 4.9 Lymphocytes # 1.4 Monocytes # 1.5 H Eosinophils # 0.5 Basophils # 0.1 Nucleated Red Blood Cells # 0.0 Sodium Level 142 Potassium Level 6.2 *H Chloride Level 102 Carbon Dioxide Level 26 Anion Gap 20 H Blood Urea Nitrogen 55 H Creatinine 6.25 H Glucose Level 101 # Calcium Level 9.1 Medications Medications Current Medications Dextrose (D50w Syringe) ONCE PRN IV POC BLOOD GLUCOSE <250 MG/DL Last administered on 10/13/16 22:54; Admin Dose 50 ML; Start 10/13/16 at 22:30 Lorazepam (Ativan) 0.5 mg Q6H PRN IV ANXIETY; Start 10/13/16 at 23:30 Ondansetron HCl (Zofran Inj) 4 mg Q6H PRN IV NAUSEA AND/OR VOMITING; Start at 23:30 Acetaminophen (Tylenol Tab) 650 mg Q6H PRN PO PAIN LEVEL 1-3 OR FEVER Last administered on 10/14/16 21:47; Admin Dose 650 MG; Start 10/13/16 at 23:30 Oxycodone/ Acetaminophen (Percocet (5/ 325)) 2 tab Q6H PRN PO PAIN LEVEL 7-10 Last administered on 10/16/16 05:43; Admin Dose 2 TAB; Start 10/13/16 at 23:30 Docusate Sodium (Colace) 100 mg Q12H PO Last administered on 10/15/16 23:26; Admin Dose 100 MG; Start 10/13/16 at 23:30 Bisacodyl (Dulcolax) 5 mg DAILY PO Last administered on 10/15/16 08:31; Admin Dose 5 MG; Start 10/14/16 at 09:00 Pantoprazole (Protonix Iv) 40 mg DAILY@06 IV Last administered on 10/16/16 05: 42; Admin Dose 40 MG; Start 10/14/16 at 06:00 Atorvastatin Calcium (Lipitor) 40 mg QHS PO Last administered on 10/15/16 20:20 ; Admin Dose 40 MG; Start 10/14/16 at 21:00 Benzonatate (Tessalon) 100 mg Q6 PO Last administered on 10/16/16 05:42; Admin Dose 100 MG; Start 10/14/16 at 06:00 Cinacalcet (Sensipar) 30 mg DAILY PO Last administered on 10/15/16 08:28; Admin Dose 30 MG; Start 10/14/16 at 09:00 Montelukast Sodium (Singulair) 10 mg QAM PO Last administered on 10/15/16 08:29 ; Admin Dose 10 MG; Start 10/14/16 at 09:00 Pyridoxine HCl (Vitamin B6) 50 mg DAILY PO Last administered on 10/15/16 08:28 ; Admin Dose 50 MG; Start 10/14/16 at 09:00 Tiotropium [place] (Spiriva) 18 inh DAILY INH Last administered on 10/15/16 08: 28; Admin Dose 18 INH; Start 10/14/16 at 09:00 Zolpidem Tartrate (Ambien) 5 mg QHS PRN PO INSOMNIA Last administered on 23:24; Admin Dose 5 MG; Start 10/14/16 at 00:30 Salmeterol Xinafoate/ Fluticasone (Advair 250/50 Diskus) 1 inh BID INH Last administered on 10/15/16 20:22; Admin Dose 1 INH; Start 10/14/16 at 09:00 Miscellaneous Information 1 ea NOTE XX ; Start 10/14/16 at 01:00 Glucose (Glutose) 15 gm Q15M PRN PO DECREASED GLUCOSE; Start 10/14/16 at 01:00 Glucose (Glutose) 22.5 gm Q15M PRN PO DECREASED GLUCOSE; Start 10/14/16 at 01:00 Dextrose (D50w Syringe) 25 ml Q15M PRN IV DECREASED GLUCOSE; Start 10/14/16 at 01:00 Dextrose (D50w Syringe) 50 ml Q15M PRN IV DECREASED GLUCOSE; Start 10/14/16 at 01:00 Glucagon (Glucagen) 1 mg Q15M PRN IM DECREASED GLUCOSE; Start 10/14/16 at 01:00 Glucose (Glutose) 15 gm Q15M PRN BUCCAL DECREASED GLUCOSE; Start 10/14/16 at 01: 00 Diagnostic Test (Pha) (Accu-Chek) 1 ea 02 XX Last administered on 10/16/16 02: 56; Admin Dose 1 EA; Start 10/15/16 at 02:00 Collagenase (Santyl) 1 applic DAILY TOP Last administered on 10/15/16 08:35; Admin Dose 1 APPLIC; Start 10/14/16 at 16:00 Nicotine (Nicoderm 21 Mg/ 24hr) 1 patch DAILY TRANSDERM Last administered on 08:32; Admin Dose 1 PATCH; Start 10/14/16 at 17:00 Lactobacillus Acidophilus/ Rhamnosus (Culturelle) 1 cap BID PO Last administered on 10/15/16 20:20; Admin Dose 1 CAP; Start 10/14/16 at 21:00 Acetaminophen/ Hydrocodone Bitart 1 tab 1 tab Q6H PRN PO pain Last administered on 10/15/16 23:24; Admin Dose 1 TAB; Start 10/14/16 at 17:00 Albumin Human (Albumin Human 25%) 100 ml @ 100 mls/hr DAILY IV Last administered on 10/15/16 08:32; Admin Dose 100 MLS/HR; Start 10/15/16 at 09:00; Stop 10/17/16 at 09:59 Furosemide 40 mg 40 mg DAILY IV Last administered on 10/15/16 08:32; Admin Dose 40 MG; Start 10/15/16 at 09:00 Ceftriaxone Sodium 50 ml @ 100 mls/hr Q24H IVPB Last administered on 10/15/16 20:22; Admin Dose 100 MLS/HR; Start 10/14/16 at 18:00 Ferric Sodium Gluconate Complex/ Sodium Chloride (Ferrlecit/NS) 110 ml @ 100 mls/hr Q24H IVPB Last administered on 10/15/16 18:34; Admin Dose 100 MLS/HR; Start 10/15/16 at 15:30; Stop 10/17/16 at 16:35 Diltiazem HCl (Cardizem Sr) 120 mg DAILY PO ; Start 10/16/16 at 09:00 Metoprolol Tartrate (Lopressor) 75 mg BID PO Last administered on 10/15/16 20: 21; Admin Dose 75 MG; Start 10/15/16 at 21:00 Apixaban (Eliquis) 5 mg BID PO Last administered on 10/15/16 20:20; Admin Dose 5 MG; Start 10/15/16 at 21:00 Aspirin (Aspirin) 81 mg DAILY PO ; Start 10/16/16 at 09:00 Insulin Detemir (Levemir) 45 unit QHS SC Last administered on 10/15/16 20:32; Admin Dose 45 UNIT; Start 10/15/16 at 21:00 WILLIAM CLARK Oct 16, 2016 08:28
[2016-10-16] MEDS: SALMETEROL/FLUTICASONE 250/50 INHA INH SCH ×2 (09:00→20:19)
[2016-10-16] MEDS: INSULIN ASPART [NOVOLOG] 3 ML PEN SC SCH ×7 (09:00→20:43)
[2016-10-16] MEDS ORDERED: DILTIAZEM (SR) 60 MG CAP PO SCH (09:00)
[2016-10-16] MEDS ORDERED: NON-FORMULARY/PATIENT OWN MED (Omeprazole* (Prilosec*) 40 MG) PO SCH (09:00)
[2016-10-16] MEDS: COLLAGENASE 30 GM TUBE TOP SCH (09:07)
[2016-10-16] MEDS: MONTELUKAST 10 MG TAB PO SCH (09:08)
[2016-10-16] MEDS: APIXABAN 5 MG TABLET PO SCH ×2 (09:08→20:18)
[2016-10-16] MEDS: METOCLOPRAMIDE 5 MG TAB PO SCH ×3 (09:08→17:43)
[2016-10-16] MEDS: NICOTINE (21 MG/24 HR) PATCH TRANSDERM SCH (09:08)
[2016-10-16] MEDS: ASPIRIN 81 MG TAB PO SCH (09:09)
[2016-10-16] MEDS: BISACODYL (EC) 5 MG TAB PO SCH (09:09)
[2016-10-16] MEDS: CINACALCET 30 MG TAB PO SCH (09:09)
[2016-10-16] MEDS: PYRIDOXINE 50 MG TAB PO SCH (09:09)
[2016-10-16] MEDS: CALCIUM ACETATE 667 MG CAP PO SCH ×3 (09:09→17:43)
[2016-10-16] MEDS: METOPROLOL 25 MG TAB PO SCH ×2 (09:20→20:19)
[2016-10-16] MEDS: ALBUMIN HUMAN 25% 100 ML IV SCH (09:20)
[2016-10-16] MEDS: LACTOBACILLUS RHAMNOSUS CAP PO SCH ×2 (09:20→20:18)
[2016-10-16] MEDS: FUROSEMIDE 40 MG INJ IV SCH (09:21)
[2016-10-16] MEDS: HYDROCODONE/APAP (5/325) TAB PO PRN ×2 (09:33→20:18)
[2016-10-16] MEDS: TIOTROPIUM 18 MCG CAPSULE INHA DEV INH SCH (10:11)
[2016-10-16] MEDS: DILTIAZEM (CD) 180 MG CAP PO SCH (10:11)
[2016-10-16] MEDS ORDERED: VANCOMYCIN 1 GM in NS 250 ML IVPB ONE (11:30)
[2016-10-16] MEDS: DOCUSATE SODIUM 100 MG CAP PO SCH ×2 (12:12→23:05)
--- NOTE | 2016-10-16 14:52 | PN ---
DATE: 10/16/2016 SUBJECTIVE: Patient is alert, lying comfortably in bed. Denies pain, no fevers. WBC 8.4, no shift, no bands. BUN 55, creatinine 6.25. ANTIMICROBIALS: 1. IV vancomycin. 2. Rocephin. PHYSICAL EXAMINATION: GENERAL: Morbidly obese, well-developed, elderly woman who is awake, in no distress. HEENT: Head atraumatic, normocephalic. Sclerae anicteric. Buccal mucosa dry. NECK: Supple. CHEST: Rise symmetrical. Breath sounds clear. HEART: S1, S2. ABDOMEN: Soft, bowel sounds present. EXTREMITIES: Without cyanosis. Left upper hip wound with some purulent drainage. ASSESSMENT: 1. Bilateral lower extremities chronic venous stasis with left hip wound. History of debridement a nd wound vacuum-assisted closure application. 2. End-stage renal disease, on hemodialysis. 3. Left upper extremity arteriovenous fistula. 4. Obesity. 5. Atrial fibrillation. PLAN: The patient remains stable. We are going to order wound culture. We will keep her on curren t antibiotics for now. Follow vascular team recommendations, patient is supposed to have MRI of her left hip. Dictated By: TODD RAMIRES POKER MACHINE ATTENDANT for MAJO MATTSON/BLANCA Conf#: [id number] DID#: [id number]
[2016-10-16] MEDS: SOD FERRIC GLUC COMPLX 125 MG in SOD CHLORIDE 0.9% 100 ML IVPB SCH (16:07)
--- NOTE | 2016-10-16 17:15 | RADRPT ---
PROCEDURE: MRI of the left lower extremity CLINICAL INDICATION: Lower extremity pain swelling and pain, ulcer, concern for osteomyelitis TECHNIQUE: Multiplanar multisequence images of the left lower extremity without contrast utilizing multiple pulse sequences. Images were interpreted at a independent PACS workstation. COMPARISON: CT of the lower extremities dated September 11, 2016 FINDINGS: The field of view of this study includes the majority of the femur, excluding the far distal aspect of the femoral condyles. There is diffuse subcutaneous soft tissue swelling throughout the visualized left lower extremity wi thout discrete drainable fluid collection on this noncontrast study. There is no evidence of acute fracture or osteomyelitis. There is no evidence of acute muscle or te ndon tear. Limited intrapelvic evaluation is grossly unremarkable. IMPRESSION: 1. Diffuse subcutaneous soft tissue swelling throughout both lower extremities, nonspecific, query cellulitis versus venous stasis. 2. No discrete drainable fluid collection. 3. No evidence of acute fracture or osteomyelitis within the field of view. RPTAT: UU .Jonatan Quesada MD, MD Date Time Electronically viewed and signed by .Jonatan Quesada MD, on 10/16/2016 17:14 .K/
[2016-10-16] MEDS: CEFTRIAXONE 1 GM/NS 50 ML IVPB SCH (17:45)
[2016-10-16] MEDS: ATORVASTATIN 40 MG TAB PO SCH (20:18)
[2016-10-16] MEDS: INSULIN DETEMIR [LEVEMIR] 3ML CART SC SCH (20:42)
[2016-10-16] MEDS ORDERED: METOPROLOL 25 MG TAB PO ONE (23:00)
[2016-10-16] MEDS: ZOLPIDEM 5 MG TAB PO PRN (23:09)
[2016-10-17 00:45] VITALS: BP 112/70
[2016-10-17] MEDS: ACCU-CHEK XX SCH (02:00)
[2016-10-17] MEDS: OXYCODONE/ACETAMINOPHEN (5/325) TAB PO PRN ×3 (05:23→23:04)
[2016-10-17] MEDS: BENZONATATE 100 MG CAP PO SCH ×3 (05:24→17:44)
[2016-10-17] MEDS: PANTOPRAZOLE 40 MG INJ IV SCH (05:24)
[2016-10-17 06:03] LABS: ADD SCAN DIFF NO
[2016-10-17 06:09] LABS: BASOPHIL # 0.1 10^3/ul (0.0-0.1); BASOPHILS % 1.1 % (0.0-2.0); EOSINOPHILS # 0.6 10^3/ul (0.0-0.5); EOSINOPHILS % 6.5 % (0.0-7.0); HEMATOCRIT 28.6 % (37.0-47.0); HEMOGLOBIN 8.7 g/dl (12.0-16.0); LYMPHOCYTES # 1.3 10^3/ul (0.8-2.9); LYMPHOCYTES % 15.5 % (15.0-51.0); MEAN CORPUSCULAR HEMOGLOBIN 30.9 pg (29.0-33.0); MEAN CORPUSCULAR HGB CONC 30.4 g/dl (32.0-37.0); MEAN CORPUSCULAR VOLUME 101.4 fl (82.0-101.0); MONOCYTE # 1.4 10^3/ul (0.3-0.9); MONOCYTES % 16.8 % (0.0-11.0); NEUTROPHILS % 58.7 % (39.0-77.0); PLATELET COUNT 237 10^3/UL (140-415); RED BLOOD COUNT 2.82 10^6/ul (4.20-5.40); RED CELL DISTRIBUTION WIDTH 20.6 % (11.5-14.5); WHITE BLOOD COUNT 8.4 10^3/ul (4.8-10.8)
[2016-10-17 06:31] LABS: CALCIUM 8.9 mg/dl (8.4-10.2); CREATININE 5.53 mg/dl (0.44-1.00); POTASSIUM 5.6 mmol/L (3.5-5.1)
[2016-10-17 07:24] VITALS: BP 135/60; RESP 16
[2016-10-17] MEDS: CALCIUM ACETATE 667 MG CAP PO SCH ×3 (08:00→17:44)
[2016-10-17] MEDS: METOCLOPRAMIDE 5 MG TAB PO SCH ×3 (08:00→17:44)
[2016-10-17] MEDS: INSULIN ASPART [NOVOLOG] 3 ML PEN SC SCH ×7 (08:05→21:00)
[2016-10-17] MEDS: SALMETEROL/FLUTICASONE 250/50 INHA INH SCH ×2 (08:48→20:46)
[2016-10-17] MEDS: APIXABAN 5 MG TABLET PO SCH ×2 (08:52→20:43)
[2016-10-17] MEDS: CINACALCET 30 MG TAB PO SCH (08:52)
[2016-10-17] MEDS: MONTELUKAST 10 MG TAB PO SCH (08:53)
[2016-10-17] MEDS: LACTOBACILLUS RHAMNOSUS CAP PO SCH ×2 (08:53→20:43)
[2016-10-17] MEDS: ASPIRIN 81 MG TAB PO SCH (08:53)
[2016-10-17] MEDS: DILTIAZEM (CD) 180 MG CAP PO SCH (08:53)
[2016-10-17] MEDS: BISACODYL (EC) 5 MG TAB PO SCH (08:53)
[2016-10-17] MEDS: PYRIDOXINE 50 MG TAB PO SCH (08:53)
[2016-10-17] MEDS: NICOTINE (21 MG/24 HR) PATCH TRANSDERM SCH (08:54)
[2016-10-17] MEDS: COLLAGENASE 30 GM TUBE TOP SCH (08:54)
[2016-10-17] MEDS: FUROSEMIDE 40 MG INJ IV SCH (08:55)
[2016-10-17] MEDS: METOPROLOL 25 MG TAB PO SCH ×2 (08:57→20:44)
[2016-10-17] MEDS: TIOTROPIUM 18 MCG CAPSULE INHA DEV INH SCH (08:58)
[2016-10-17] MEDS: ALBUMIN HUMAN 25% 100 ML IV SCH (09:03)
--- NOTE | 2016-10-17 09:11 | PN ---
Date/Time of Note Date/Time of Note DATE: 10/17/16 TIME: 09:07 Assessment/Plan Lines/Catheters IV Catheter Type (from [facility]): Saline Lock Whitaker in Place (from [facility]): No Assessment/Plan Chief Complaint/Hosp Course -Bilateral lower extremity atherosclerosis with ulcers and claudication. It seems the patient has a component of mixed arterial and venous disease. Upon her noninvasive vascular studies it was identified the patient having infrapopliteal disease with monophasic flow. Further, the patient underwent CT angiography that demonstrates the patient having adequate inflow to her popliteal segments which should allow for adequate wound healing of her lateral thigh ulcer. However, the patient's noncompliance and not following up with visitations has prevented her from improving the status of her wound. At the moment we will plan to schedule the patient for OR debridement on Monday 09/18 -Bilateral lower extremity venous insufficiency with ulcers (CEAP classification 6): It seems the patient also has a significant history of venous insufficiency, with on and off venous stasis ulcers. At the moment, the patient will require to undergo venous reflux studies that are done as an outpatient, not as an inpatient, to further delineate her superficial and venous system. -No need to hold her anticoagulation prior to our debridement. -Arrange for home health and wound followup with us postoperatively. -Continue with antibiotics as recommended. -Recommend applying an Antoni wrap from the toes all the way up to her upper thigh , for relieving her edema. -End-stage renal disease: The patient at the moment does not have any issues with her left upper extremity fistula and will plan to continue monitoring her fistula, as she does have some areas of neointimal hyperplasia near the arterial anastomosis. This can be followed as an outpatient and a possible fistulogram if there are any issues during her sessions. -Discussed the findings, plan and management with the patient and she understands. -Thank you for allowing us to partake in the care of your patient. Please call with any questions. Problems: Subjective 24 Hr Interval Summary No new vascular changes overnight Exam/Review of Systems Vital Signs Vitals Vital Signs Date Time Temp Pulse Resp B/P Pulse Ox O2 Delivery O2 Flow Rate FiO2 10/17/16 07:24 98.4 61 16 135/60 96 10/13/16 23:03 Room Air 10/13/16 22:37 21 Intake and Output 6/07/3010/16/16 10/17/16 15:00 23:00 07:00 Intake Total 650 ml 1680 ml 600 ml Output Total 4300 ml 1 ml Balance -3650 ml 1680 ml 599 ml Exam Free Text/Dictation GENERAL: Alert and oriented x3, PULMONARY: Clear to auscultation bilaterally CARDIOVASCULAR: S1, S2 present ABDOMEN: Soft, nontender, nondistended. Bowel sounds positive. Truncal obesity. Large pannus. EXTREMITIES: -Right lower extremity: palpable femoral pulse, nonpalpable pedal pulse. Motor and sensory intact. Cap refill 3 to 4 seconds. Edema of 2 to 3+. Presence of lipodermatosclerosis, spider veins, telangiectasias and multiple healed ulcers in the past. -Left lower extremity: palpable femoral pulse, nonpalpable pedal pulse. Motor and sensory intact. Cap refill of 3 to 4 seconds. Edema 2 to 3+. Lateral thigh ulcer measuring 5 x 3 x 2cm with necrotic fibrinous tissue. Lipodermatosclerosis, multiple healed ulcers on the medial aspect and scabs on her bahena Results Result Diagram: 10/17/16 0520 10/17/16 0520 MAYLIN BROWN MD Oct 17, 2016 09:11
[2016-10-17] MEDS: HYDROCODONE/APAP (5/325) TAB PO PRN ×2 (09:21→20:52)
--- NOTE | 2016-10-17 10:48 | PN ---
Date/Time of Note Date/Time of Note DATE: 10/17/16 TIME: 10:40 Assessment/Plan VTE Prophylaxis VTE Prophylaxis Intervention: other (eliquis) Lines/Catheters IV Catheter Type (from [facility]): [facility] Urinary Cath still in place: No Assessment/Plan Assessment/Plan This is a 61-year-old female being admitted for: 1. Chronic infected Left thigh wound. * This is a chronic wound the patient has been dealing with for approximately 4 months she had a wound VAC placed approximately 2 weeks ago, none now * Wound cultures still negative so far * MRI showed no osteo 2. Atrial fibrillation. Patient is currently rate controlled / anticoagulated on Eliquis 3. End-stage renal disease. We will consult nephrology for dialysis as her schedule is Tuesday and Tuesday. Will continue her home medications. 4. Iron deficiency Anemia, likely of chronic disease and end-stage renal disease. . 5. Hypertension. Continue home medications. 6. Diabetes type 2 : uncontrolled 7. Dyslipidemia. Continue statin. 8. Anasarca: Continue supplemental albumin therapy to help with diuresis if okay with nephrology 9. Tobacco use and abuse: 10. Non compliance Plan: * F/u final wound cultures / appreciate ID / debridement planned for monday 09/18 * Continue CCB and BB and titrate as indicated for rate control * Patient is extremely non compliant with diabetic diet and is constantly snacking. Will increase basal slightly and add tradjenta * D/c ARB for persistent hyperkalemia * Continue IV iron infusion for iron deficiency * Plan to hold eliquis day before surgery and switch to heparin drip * Pt. was lectured for greater than 3 minutes on the health risks of continued smoking and the benefits of cessation and this will continue to be reinforced throughout hospitalization. DVT and GI prophylaxis: Eliquis and Protonix Further treatment strategy will be implemented as per the clinical course. Subjective 24 Hr Interval Summary Free Text/Dictation Patient seen and examined. Exam/Review of Systems Vital Signs Vitals Vital Signs Date Time Temp Pulse Resp B/P Pulse Ox O2 Delivery O2 Flow Rate FiO2 10/17/16 07:24 98.4 61 16 135/60 96 10/13/16 23:03 Room Air 10/13/16 22:37 21 Intake and Output 6/3/17 6/3/17 6/4/17 15:00 23:00 07:00 Intake Total 650 ml 1680 ml 600 ml Output Total 4300 ml 1 ml Balance -3650 ml 1680 ml 599 ml Exam General: Patient is well-developed well-nourished, obese /the patient is alert oriented -3 lying comfortably in bed. HEENT: Atraumatic, normocephalic. The pupils are equal, round and reactive. Extraocular motor are intact Neck: Supple with full range of motion. No rigidity or meningismus Chest: Nontender Lungs: Clear to auscultation bilaterally no crackles rales or wheezing Heart: Normal S1-S2, Irregular rhythm and rate. No overt murmur appreciated Abdomen: Soft , nontender, nondistended , bowel sounds are present. No guarding no rebound tenderness , No masses or organomegaly. No costovertebral temporal angle mass Extremities: Wound of left lateral thigh now still oozing pus, but with less yellowish crusting * left upper extremity palpable AV shunt thrill. * Patient also had bilateral lower extremity edema all the way to her thighs, and she has multiple small crusted over ulcers the posterior part of left bahena and also the back of right leg Neurologic: Normal mental status, speech normal, no focal weakness Results Result Diagram: 10/17/16 0520 10/17/16 0520 Results 24 hrs Laboratory Tests Test 10/16/16 12:09 10/16/16 17:32 10/16/16 20:34 10/17/16 05:20 Bedside Glucose 176 129 178 White Blood Count 8.4 Red Blood Count 2.82 L Hemoglobin 8.7 L Hematocrit 28.6 L Mean Corpuscular Volume 101.4 H Mean Corpuscular Hemoglobin 30.9 Mean Corpuscular Hemoglobin Concent 30.4 L Red Cell Distribution Width 20.6 H Platelet Count 237 Mean Platelet Volume 10.0 Neutrophils % 58.7 Lymphocytes % 15.5 Monocytes % 16.8 H Eosinophils % 6.5 Basophils % 1.1 Nucleated Red Blood Cells % 0.0 Neutrophils # 5.0 Lymphocytes # 1.3 Monocytes # 1.4 H Eosinophils # 0.6 H Basophils # 0.1 Nucleated Red Blood Cells # 0.0 Sodium Level 142 Potassium Level 5.6 H Chloride Level 102 Carbon Dioxide Level 25 Anion Gap 21 H Blood Urea Nitrogen 54 H Creatinine 5.53 H Glucose Level 301 #H Calcium Level 8.9 Test 10/17/16 06:52 10/17/16 07:51 10/17/16 07:59 Lab Scanned Report BLOOD TRANSFUSION Bedside Glucose 310 H 284 H Medications Medications Current Medications Dextrose (D50w Syringe) ONCE PRN IV POC BLOOD GLUCOSE <250 MG/DL Last administered on 10/13/16 22:54; Admin Dose 50 ML; Start 10/13/16 at 22:30 Lorazepam (Ativan) 0.5 mg Q6H PRN IV ANXIETY; Start 10/13/16 at 23:30 Ondansetron HCl (Zofran Inj) 4 mg Q6H PRN IV NAUSEA AND/OR VOMITING; Start at 23:30 Acetaminophen (Tylenol Tab) 650 mg Q6H PRN PO PAIN LEVEL 1-3 OR FEVER Last administered on 10/14/16 21:47; Admin Dose 650 MG; Start 10/13/16 at 23:30 Oxycodone/ Acetaminophen (Percocet (5/ 325)) 2 tab Q6H PRN PO PAIN LEVEL 7-10 Last administered on 10/17/16 05:23; Admin Dose 2 TAB; Start 10/13/16 at 23:30 Docusate Sodium (Colace) 100 mg Q12H PO Last administered on 10/16/16 23:05; Admin Dose 100 MG; Start 10/13/16 at 23:30 Bisacodyl (Dulcolax) 5 mg DAILY PO Last administered on 10/17/16 08:53; Admin Dose 5 MG; Start 10/14/16 at 09:00 Pantoprazole (Protonix Iv) 40 mg DAILY@06 IV Last administered on 10/17/16 05: 24; Admin Dose 40 MG; Start 10/14/16 at 06:00 Atorvastatin Calcium (Lipitor) 40 mg QHS PO Last administered on 10/16/16 20:18 ; Admin Dose 40 MG; Start 10/14/16 at 21:00 Benzonatate (Tessalon) 100 mg Q6 PO Last administered on 10/17/16 05:24; Admin Dose 100 MG; Start 10/14/16 at 06:00 Cinacalcet (Sensipar) 30 mg DAILY PO Last administered on 10/17/16 08:52; Admin Dose 30 MG; Start 10/14/16 at 09:00 Montelukast Sodium (Singulair) 10 mg QAM PO Last administered on 10/17/16 08:53 ; Admin Dose 10 MG; Start 10/14/16 at 09:00 Pyridoxine HCl (Vitamin B6) 50 mg DAILY PO Last administered on 10/17/16 08:53 ; Admin Dose 50 MG; Start 10/14/16 at 09:00 Zolpidem Tartrate (Ambien) 5 mg QHS PRN PO INSOMNIA Last administered on 23:09; Admin Dose 5 MG; Start 10/14/16 at 00:30 Salmeterol Xinafoate/ Fluticasone (Advair 250/50 Diskus) 1 inh BID INH Last administered on 10/16/16 20:19; Admin Dose 1 INH; Start 10/14/16 at 09:00 Miscellaneous Information 1 ea NOTE XX ; Start 10/14/16 at 01:00 Glucose (Glutose) 15 gm Q15M PRN PO DECREASED GLUCOSE; Start 10/14/16 at 01:00 Glucose (Glutose) 22.5 gm Q15M PRN PO DECREASED GLUCOSE; Start 10/14/16 at 01:00 Dextrose (D50w Syringe) 25 ml Q15M PRN IV DECREASED GLUCOSE; Start 10/14/16 at 01:00 Dextrose (D50w Syringe) 50 ml Q15M PRN IV DECREASED GLUCOSE; Start 10/14/16 at 01:00 Glucagon (Glucagen) 1 mg Q15M PRN IM DECREASED GLUCOSE; Start 10/14/16 at 01:00 Glucose (Glutose) 15 gm Q15M PRN BUCCAL DECREASED GLUCOSE; Start 10/14/16 at 01: 00 Diagnostic Test (Pha) (Accu-Chek) 1 ea 02 XX Last administered on 10/16/16 02: 56; Admin Dose 1 EA; Start 10/15/16 at 02:00 Collagenase (Santyl) 1 applic DAILY TOP Last administered on 10/17/16 08:54; Admin Dose 1 APPLIC; Start 10/14/16 at 16:00 Nicotine (Nicoderm 21 Mg/ 24hr) 1 patch DAILY TRANSDERM Last administered on 08:54; Admin Dose 1 PATCH; Start 10/14/16 at 17:00 Lactobacillus Acidophilus/ Rhamnosus (Culturelle) 1 cap BID PO Last administered on 10/17/16 08:53; Admin Dose 1 CAP; Start 10/14/16 at 21:00 Acetaminophen/ Hydrocodone Bitart ([place] (5/325)) 1 tab Q6H PRN PO pain Last administered on 10/17/16 09:21; Admin Dose 1 TAB; Start 10/14/16 at 17:00 Furosemide 40 mg 40 mg DAILY IV Last administered on 10/17/16 08:55; Admin Dose 40 MG; Start 10/15/16 at 09:00 Ceftriaxone Sodium 50 ml @ 100 mls/hr Q24H IVPB Last administered on 10/16/16 17:45; Admin Dose 100 MLS/HR; Start 10/14/16 at 18:00 Ferric Sodium Gluconate Complex/ Sodium Chloride (Ferrlecit/NS) 110 ml @ 100 mls/hr Q24H IVPB Last administered on 10/16/16 16:07; Admin Dose 100 MLS/HR; Start 10/15/16 at 15:30; Stop 10/17/16 at 16:35 Metoprolol Tartrate (Lopressor) 75 mg BID PO Last administered on 10/17/16 08: 57; Admin Dose 75 MG; Start 10/15/16 at 21:00 Apixaban (Eliquis) 5 mg BID PO Last administered on 10/17/16 08:52; Admin Dose 5 MG; Start 10/15/16 at 21:00 Aspirin (Aspirin) 81 mg DAILY PO Last administered on 10/17/16 08:53; Admin Dose 81 MG; Start 10/16/16 at 09:00 Insulin Detemir (Levemir) 45 unit QHS SC Last administered on 10/16/16 20:42; Admin Dose 45 UNIT; Start 10/15/16 at 21:00 Diltiazem HCl (Cardizem Cd) 180 mg DAILY PO Last administered on 10/17/16 08:53 ; Admin Dose 180 MG; Start 10/16/16 at 09:00 Tiotropium [place] (Spiriva) 1 inh DAILY INH Last administered on 10/17/16 08: 58; Admin Dose 1 INH; Start 10/17/16 at 09:00 Procedures Procedures PROCEDURE: MRI of the left lower extremity CLINICAL INDICATION: Lower extremity pain swelling and pain, ulcer, concern for osteomyelitis TECHNIQUE: Multiplanar multisequence images of the left lower extremity without contrast utilizing multiple pulse sequences. Images were interpreted at a independent PACS workstation. COMPARISON: CT of the lower extremities dated September 11, 2016 FINDINGS: The field of view of this study includes the majority of the femur, excluding the far distal aspect of the femoral condyles. There is diffuse subcutaneous soft tissue swelling throughout the visualized left lower extremity without discrete drainable fluid collection on this noncontrast study. There is no evidence of acute fracture or osteomyelitis. There is no evidence of acute muscle or tendon tear. Limited intrapelvic evaluation is grossly unremarkable. IMPRESSION: 1. Diffuse subcutaneous soft tissue swelling throughout both lower extremities , nonspecific, query cellulitis versus venous stasis. 2. No discrete drainable fluid collection. 3. No evidence of acute fracture or osteomyelitis within the field of view. RPTAT: UU .Jonatan Quesada MD, MD Date Time Electronically viewed and signed by .Jonatan Quesada MD, on 10/16/2016 17: 14 .K/ CC: CORIE CABRERA BOLATITO M. Oct 17, 2016 10:48
[2016-10-17] MEDS: DOCUSATE SODIUM 100 MG CAP PO SCH ×2 (12:46→23:06)
[2016-10-17] MEDS: LINAGLIPTIN 5 MG TABLET PO SCH (12:46)
--- NOTE | 2016-10-17 15:07 | CONS ---
Date/Time of Note Date/Time of Note DATE: 10/17/16 TIME: 15:05 Assessment/Plan Assessment/Plan Chief Complaint/Hosp Course SUBJECTIVE: Patient is alert, lying comfortably in bed. Denies pain, no fevers. ANTIMICROBIALS: 1. IV vancomycin. 2. Rocephin. PHYSICAL EXAMINATION: GENERAL: Morbidly obese, well-developed, elderly woman who is awake, in no distress. HEENT: Head atraumatic, normocephalic. Sclerae anicteric. Buccal mucosa dry. NECK: Supple. CHEST: Rise symmetrical. Breath sounds clear. HEART: S1, S2. ABDOMEN: Soft, bowel sounds present. EXTREMITIES: Without cyanosis. Left upper hip wound with some purulent drainage. ASSESSMENT: 1. Bilateral lower extremities chronic venous stasis with left hip wound, history of debridement and wound vac application. 2. End-stage renal disease, on hemodialysis. 3. Left upper extremity arteriovenous fistula. 4. Obesity. 5. Atrial fibrillation. PLAN: The patient remains stable. Continue abx, f/u rec-s of vascular team, f/ u wound cx DW staff Problems: Consultation Date/Type/Reason Admit Date/Time October 13, 2016 at 22:11 Initial Consult Date 10/14/16 Type of Consultation: ID Exam/Review of Systems Vital Signs Vitals Vital Signs Date Time Temp Pulse Resp B/P Pulse Ox O2 Delivery O2 Flow Rate FiO2 10/17/16 07:24 98.4 61 16 135/60 96 10/13/16 23:03 Room Air 10/13/16 22:37 21 Intake and Output 10/16/16 10/16/16 10/17/16 15:00 23:00 07:00 Intake Total 650 ml 1680 ml 600 ml Output Total 4300 ml 1 ml Balance -3650 ml 1680 ml 599 ml Results Result Diagram: 10/17/16 0520 10/17/16 0520 Results 24 hrs Laboratory Tests Test 10/16/16 17:32 10/16/16 20:34 10/17/16 05:20 10/17/16 06:52 Bedside Glucose 129 178 White Blood Count 8.4 Red Blood Count 2.82 L Hemoglobin 8.7 L Hematocrit 28.6 L Mean Corpuscular Volume 101.4 H Mean Corpuscular Hemoglobin 30.9 Mean Corpuscular Hemoglobin Concent 30.4 L Red Cell Distribution Width 20.6 H Platelet Count 237 Mean Platelet Volume 10.0 Neutrophils % 58.7 Lymphocytes % 15.5 Monocytes % 16.8 H Eosinophils % 6.5 Basophils % 1.1 Nucleated Red Blood Cells % 0.0 Neutrophils # 5.0 Lymphocytes # 1.3 Monocytes # 1.4 H Eosinophils # 0.6 H Basophils # 0.1 Nucleated Red Blood Cells # 0.0 Sodium Level 142 Potassium Level 5.6 H Chloride Level 102 Carbon Dioxide Level 25 Anion Gap 21 H Blood Urea Nitrogen 54 H Creatinine 5.53 H Glucose Level 301 #H Calcium Level 8.9 Lab Scanned Report BLOOD TRANSFUSION Test 10/17/16 07:51 10/17/16 07:59 10/17/16 12:10 Bedside Glucose 310 H 284 H 174 Medications Medications Current Medications Dextrose (D50w Syringe) ONCE PRN IV POC BLOOD GLUCOSE <250 MG/DL Last administered on 10/13/16 22:54; Admin Dose 50 ML; Start 10/13/16 at 22:30 Lorazepam (Ativan) 0.5 mg Q6H PRN IV ANXIETY; Start 10/13/16 at 23:30 Ondansetron HCl (Zofran Inj) 4 mg Q6H PRN IV NAUSEA AND/OR VOMITING; Start at 23:30 Acetaminophen (Tylenol Tab) 650 mg Q6H PRN PO PAIN LEVEL 1-3 OR FEVER Last administered on 10/14/16 21:47; Admin Dose 650 MG; Start 10/13/16 at 23:30 Oxycodone/ Acetaminophen (Percocet (5/ 325)) 2 tab Q6H PRN PO PAIN LEVEL 7-10 Last administered on 10/17/16 05:23; Admin Dose 2 TAB; Start 10/13/16 at 23:30 Docusate Sodium (Colace) 100 mg Q12H PO Last administered on 10/17/16 12:46; Admin Dose 100 MG; Start 10/13/16 at 23:30 Bisacodyl (Dulcolax) 5 mg DAILY PO Last administered on 10/17/16 08:53; Admin Dose 5 MG; Start 10/14/16 at 09:00 Pantoprazole (Protonix Iv) 40 mg DAILY@06 IV Last administered on 10/17/16 05: 24; Admin Dose 40 MG; Start 10/14/16 at 06:00 Atorvastatin Calcium (Lipitor) 40 mg QHS PO Last administered on 10/16/16 20:18 ; Admin Dose 40 MG; Start 10/14/16 at 21:00 Benzonatate (Tessalon) 100 mg Q6 PO Last administered on 10/17/16 12:46; Admin Dose 100 MG; Start 10/14/16 at 06:00 Cinacalcet (Sensipar) 30 mg DAILY PO Last administered on 10/17/16 08:52; Admin Dose 30 MG; Start 10/14/16 at 09:00 Montelukast Sodium (Singulair) 10 mg QAM PO Last administered on 10/17/16 08:53 ; Admin Dose 10 MG; Start 10/14/16 at 09:00 Pyridoxine HCl (Vitamin B6) 50 mg DAILY PO Last administered on 10/17/16 08:53 ; Admin Dose 50 MG; Start 10/14/16 at 09:00 Zolpidem Tartrate (Ambien) 5 mg QHS PRN PO INSOMNIA Last administered on 23:09; Admin Dose 5 MG; Start 10/14/16 at 00:30 Salmeterol Xinafoate/ Fluticasone (Advair 250/50 Diskus) 1 inh BID INH Last administered on 10/16/16 20:19; Admin Dose 1 INH; Start 10/14/16 at 09:00 Miscellaneous Information 1 ea NOTE XX ; Start 10/14/16 at 01:00 Glucose (Glutose) 15 gm Q15M PRN PO DECREASED GLUCOSE; Start 10/14/16 at 01:00 Glucose (Glutose) 22.5 gm Q15M PRN PO DECREASED GLUCOSE; Start 10/14/16 at 01:00 Dextrose (D50w Syringe) 25 ml Q15M PRN IV DECREASED GLUCOSE; Start 10/14/16 at 01:00 Dextrose (D50w Syringe) 50 ml Q15M PRN IV DECREASED GLUCOSE; Start 10/14/16 at 01:00 Glucagon (Glucagen) 1 mg Q15M PRN IM DECREASED GLUCOSE; Start 10/14/16 at 01:00 Glucose (Glutose) 15 gm Q15M PRN BUCCAL DECREASED GLUCOSE; Start 10/14/16 at 01: 00 Diagnostic Test (Pha) (Accu-Chek) 1 ea 02 XX Last administered on 10/16/16 02: 56; Admin Dose 1 EA; Start 10/15/16 at 02:00 Collagenase (Santyl) 1 applic DAILY TOP Last administered on 10/17/16 08:54; Admin Dose 1 APPLIC; Start 10/14/16 at 16:00 Nicotine (Nicoderm 21 Mg/ 24hr) 1 patch DAILY TRANSDERM Last administered on 08:54; Admin Dose 1 PATCH; Start 10/14/16 at 17:00 Lactobacillus Acidophilus/ Rhamnosus (Culturelle) 1 cap BID PO Last administered on 10/17/16 08:53; Admin Dose 1 CAP; Start 10/14/16 at 21:00 Acetaminophen/ Hydrocodone Bitart ([place] (5/325)) 1 tab Q6H PRN PO pain Last administered on 10/17/16 09:21; Admin Dose 1 TAB; Start 10/14/16 at 17:00 Furosemide 40 mg 40 mg DAILY IV Last administered on 10/17/16 08:55; Admin Dose 40 MG; Start 10/15/16 at 09:00 Ceftriaxone Sodium 50 ml @ 100 mls/hr Q24H IVPB Last administered on 10/16/16 17:45; Admin Dose 100 MLS/HR; Start 10/14/16 at 18:00 Ferric Sodium Gluconate Complex/ Sodium Chloride (Ferrlecit/NS) 110 ml @ 100 mls/hr Q24H IVPB Last administered on 10/16/16 16:07; Admin Dose 100 MLS/HR; Start 10/15/16 at 15:30; Stop 10/17/16 at 16:35 Metoprolol Tartrate (Lopressor) 75 mg BID PO Last administered on 10/17/16 08: 57; Admin Dose 75 MG; Start 10/15/16 at 21:00 Apixaban (Eliquis) 5 mg BID PO Last administered on 10/17/16 08:52; Admin Dose 5 MG; Start 10/15/16 at 21:00 Aspirin (Aspirin) 81 mg DAILY PO Last administered on 10/17/16 08:53; Admin Dose 81 MG; Start 10/16/16 at 09:00 Diltiazem HCl (Cardizem Cd) 180 mg DAILY PO Last administered on 10/17/16 08:53 ; Admin Dose 180 MG; Start 10/16/16 at 09:00 Tiotropium [place] (Spiriva) 1 inh DAILY INH Last administered on 10/17/16 08: 58; Admin Dose 1 INH; Start 10/17/16 at 09:00 Insulin Detemir (Levemir) 50 unit QHS SC ; Start 10/17/16 at 21:00 Linagliptin (Tradjenta) 5 mg DAILY PO Last administered on 10/17/16 12:46; Admin Dose 5 MG; Start 10/17/16 at 11:00 TODD RAMIRES NP Oct 17, 2016 15:06
[2016-10-17] MEDS: SOD FERRIC GLUC COMPLX 125 MG in SOD CHLORIDE 0.9% 100 ML IVPB SCH (15:45)
[2016-10-17] MEDS: CEFTRIAXONE 1 GM/NS 50 ML IVPB SCH (18:44)
[2016-10-17 19:44] VITALS: BP 146/60; RESP 18
[2016-10-17] MEDS: ATORVASTATIN 40 MG TAB PO SCH (20:43)
[2016-10-17] MEDS: INSULIN DETEMIR [LEVEMIR] 3ML CART SC SCH (20:47)
[2016-10-17 22:00] VITALS: PULSE 77
[2016-10-18] VITALS (11 sets, daily range): BP systolic 112–132; BP diastolic 56–79; PULSE 95–126; RESP 18
[2016-10-18] MEDS: ZOLPIDEM 5 MG TAB PO PRN (00:36)
[2016-10-18] MEDS: BENZONATATE 100 MG CAP PO SCH ×4 (00:38→17:39)
[2016-10-18] MEDS: ACCU-CHEK XX SCH (02:00)
[2016-10-18 05:40] LABS: ADD SCAN DIFF NO
[2016-10-18 05:53] LABS: ABNORMAL IP MESSAGE 1; BASOPHIL # 0.1 10^3/ul (0.0-0.1); BASOPHILS % 1.1 % (0.0-2.0); EOSINOPHILS # 0.6 10^3/ul (0.0-0.5); EOSINOPHILS % 5.6 % (0.0-7.0); HEMATOCRIT 27.4 % (37.0-47.0); HEMOGLOBIN 8.3 g/dl (12.0-16.0); LYMPHOCYTES # 1.5 10^3/ul (0.8-2.9); LYMPHOCYTES % 14.6 % (15.0-51.0); MEAN CORPUSCULAR HEMOGLOBIN 30.3 pg (29.0-33.0); MEAN CORPUSCULAR HGB CONC 30.3 g/dl (32.0-37.0); MONOCYTE # 1.5 10^3/ul (0.3-0.9); MONOCYTES % 15.1 % (0.0-11.0); NEUTROPHIL # 6.3 10^3/ul (1.6-7.5); NEUTROPHILS % 62.6 % (39.0-77.0); PLATELET COUNT 237 10^3/UL (140-415); RED BLOOD COUNT 2.74 10^6/ul (4.20-5.40); RED CELL DISTRIBUTION WIDTH 19.9 % (11.5-14.5); WHITE BLOOD COUNT 10.1 10^3/ul (4.8-10.8)
[2016-10-18 06:14] LABS: ALBUMIN 4.1 g/dl (3.3-4.9); CALCIUM 9.5 mg/dl (8.4-10.2); CREATININE 6.29 mg/dl (0.44-1.00); MAGNESIUM 2.5 mg/dl (1.7-2.5); PHOSPHORUS 7.8 mg/dl (2.5-4.9)
[2016-10-18] MEDS: PANTOPRAZOLE 40 MG INJ IV SCH (06:15)
[2016-10-18] MEDS: OXYCODONE/ACETAMINOPHEN (5/325) TAB PO PRN ×2 (06:18→18:52)
[2016-10-18 06:39] LABS: POTASSIUM 6.4 mmol/L (3.5-5.1)
--- NOTE | 2016-10-18 07:00 | CONS ---
Date/Time of Note Date/Time of Note DATE: 10/18/16 TIME: 06:59 Consult Date/Type/Reason Admit Date/Time October 13, 2016 at 22:11 Initial Consult Date 10/14/16 Type of Consultation: ID Objective Vital Signs Date Time Temp Pulse Resp B/P Pulse Ox O2 Delivery O2 Flow Rate FiO2 10/17/16 22:00 77 10/17/16 19:44 97.9 18 146/60 97 Intake and Output 10/17/16 10/17/16 10/18/16 15:00 23:00 07:00 Intake Total 100 ml 860 ml Balance 100 ml 860 ml Results/Medications Result Diagram: 10/18/16 0510 10/18/16 0510 Results 24 hrs Laboratory Tests Test 10/17/16 07:51 10/17/16 07:59 10/17/16 12:10 10/17/16 17:37 Bedside Glucose 310 H 284 H 174 141 Test 10/17/16 20:38 10/18/16 05:10 Bedside Glucose 156 White Blood Count 10.1 # Red Blood Count 2.74 L Hemoglobin 8.3 L Hematocrit 27.4 L Mean Corpuscular Volume 100.0 Mean Corpuscular Hemoglobin 30.3 Mean Corpuscular Hemoglobin Concent 30.3 L Red Cell Distribution Width 19.9 H Platelet Count 237 Mean Platelet Volume 10.0 Neutrophils % 62.6 Lymphocytes % 14.6 L Monocytes % 15.1 H Eosinophils % 5.6 Basophils % 1.1 Nucleated Red Blood Cells % 0.0 Neutrophils # 6.3 Lymphocytes # 1.5 Monocytes # 1.5 H Eosinophils # 0.6 H Basophils # 0.1 Nucleated Red Blood Cells # 0.0 Sodium Level 141 Potassium Level 6.4 *H Chloride Level 101 Carbon Dioxide Level 22 Anion Gap 24 H Blood Urea Nitrogen 64 H Creatinine 6.29 H Glucose Level 156 # Calcium Level 9.5 Phosphorus Level 7.8 H Magnesium Level 2.5 Albumin 4.1 Medications Current Medications Dextrose (D50w Syringe) ONCE PRN IV POC BLOOD GLUCOSE <250 MG/DL Last administered on 10/13/16t 22:54; Admin Dose 50 ML; Start 10/13/16 at 22:30 Lorazepam (Ativan) 0.5 mg Q6H PRN IV ANXIETY; Start 10/13/16 at 23:30 Ondansetron HCl (Zofran Inj) 4 mg Q6H PRN IV NAUSEA AND/OR VOMITING; Start at 23:30 Acetaminophen (Tylenol Tab) 650 mg Q6H PRN PO PAIN LEVEL 1-3 OR FEVER Last administered on 10/14/16 21:47; Admin Dose 650 MG; Start 10/13/16 at 23:30 Oxycodone/ Acetaminophen (Percocet (5/ 325)) 2 tab Q6H PRN PO PAIN LEVEL 7-10 Last administered on 10/18/16 06:18; Admin Dose 2 TAB; Start 10/13/16 at 23:30 Docusate Sodium (Colace) 100 mg Q12H PO Last administered on 10/17/16 23:06; Admin Dose 100 MG; Start 10/13/16 at 23:30 Bisacodyl (Dulcolax) 5 mg DAILY PO Last administered on 10/17/16 08:53; Admin Dose 5 MG; Start 10/14/16 at 09:00 Pantoprazole (Protonix Iv) 40 mg DAILY@06 IV Last administered on 10/18/16 06: 15; Admin Dose 40 MG; Start 10/14/16 at 06:00 Atorvastatin Calcium (Lipitor) 40 mg QHS PO Last administered on 10/17/16 20:43 ; Admin Dose 40 MG; Start 10/14/16 at 21:00 Benzonatate (Tessalon) 100 mg Q6 PO Last administered on 10/18/16 06:15; Admin Dose 100 MG; Start 10/14/16 at 06:00 Cinacalcet (Sensipar) 30 mg DAILY PO Last administered on 10/17/16 08:52; Admin Dose 30 MG; Start 10/14/16 at 09:00 Montelukast Sodium (Singulair) 10 mg QAM PO Last administered on 10/17/16 08:53 ; Admin Dose 10 MG; Start 10/14/16 at 09:00 Pyridoxine HCl (Vitamin B6) 50 mg DAILY PO Last administered on 10/17/16 08:53 ; Admin Dose 50 MG; Start 10/14/16 at 09:00 Zolpidem Tartrate (Ambien) 5 mg QHS PRN PO INSOMNIA Last administered on 00:36; Admin Dose 5 MG; Start 10/14/16 at 00:30 Salmeterol Xinafoate/ Fluticasone (Advair 250/50 Diskus) 1 inh BID INH Last administered on 10/16/16 20:19; Admin Dose 1 INH; Start 10/14/16 at 09:00 Miscellaneous Information 1 ea NOTE XX ; Start 10/14/16 at 01:00 Glucose (Glutose) 15 gm Q15M PRN PO DECREASED GLUCOSE; Start 10/14/16 at 01:00 Glucose (Glutose) 22.5 gm Q15M PRN PO DECREASED GLUCOSE; Start 10/14/16 at 01:00 Dextrose (D50w Syringe) 25 ml Q15M PRN IV DECREASED GLUCOSE; Start 10/14/16 at 01:00 Dextrose (D50w Syringe) 50 ml Q15M PRN IV DECREASED GLUCOSE; Start 10/14/16 at 01:00 Glucagon (Glucagen) 1 mg Q15M PRN IM DECREASED GLUCOSE; Start 10/14/16 at 01:00 Glucose (Glutose) 15 gm Q15M PRN BUCCAL DECREASED GLUCOSE; Start 10/14/16 at 01: 00 Diagnostic Test (Pha) (Accu-Chek) 1 ea 02 XX Last administered on 10/16/16 02: 56; Admin Dose 1 EA; Start 10/15/16 at 02:00 Collagenase (Santyl) 1 applic DAILY TOP Last administered on 10/17/16 08:54; Admin Dose 1 APPLIC; Start 10/14/16 at 16:00 Nicotine (Nicoderm 21 Mg/ 24hr) 1 patch DAILY TRANSDERM Last administered on 08:54; Admin Dose 1 PATCH; Start 10/14/16 at 17:00 Lactobacillus Acidophilus/ Rhamnosus (Culturelle) 1 cap BID PO Last administered on 10/17/16 20:43; Admin Dose 1 CAP; Start 10/14/16 at 21:00 Acetaminophen/ Hydrocodone Bitart ([place] (5/325)) 1 tab Q6H PRN PO pain Last administered on 10/17/16 20:52; Admin Dose 1 TAB; Start 10/14/16 at 17:00 Furosemide 40 mg 40 mg DAILY IV Last administered on 10/17/16 08:55; Admin Dose 40 MG; Start 10/15/16 at 09:00 Ceftriaxone Sodium (Rocephin) 50 ml @ 100 mls/hr Q24H IVPB Last administered on 10/17/16 18:44; Admin Dose 100 MLS/HR; Start 10/14/16 at 18:00 Metoprolol Tartrate (Lopressor) 75 mg BID PO Last administered on 10/17/16 20: 44; Admin Dose 75 MG; Start 10/15/16 at 21:00 Apixaban (Eliquis) 5 mg BID PO Last administered on 10/17/16 20:43; Admin Dose 5 MG; Start 10/15/16 at 21:00 Aspirin (Aspirin) 81 mg DAILY PO Last administered on 10/17/16 08:53; Admin Dose 81 MG; Start 10/16/16 at 09:00 Diltiazem HCl (Cardizem Cd) 180 mg DAILY PO Last administered on 10/17/16 08:53 ; Admin Dose 180 MG; Start 10/16/16 at 09:00 Tiotropium [place] (Spiriva) 1 inh DAILY INH Last administered on 10/17/16 08: 58; Admin Dose 1 INH; Start 10/17/16 at 09:00 Insulin Detemir (Levemir) 50 unit QHS SC Last administered on 10/17/16 20:47; Admin Dose 50 UNIT; Start 10/17/16 at 21:00 Linagliptin (Tradjenta) 5 mg DAILY PO Last administered on 10/17/16 12:46; Admin Dose 5 MG; Start 10/17/16 at 11:00 Assessment/Plan Additional Assessment/Plan WILL PLAN DIALYSIS STAT JUANIS LIN MD Oct 18, 2016 07:00
[2016-10-18] MEDS ORDERED: INSULIN REGULAR, HUMAN 100 UNIT/1 ML 3ML VIAL SC ONE (07:30)
[2016-10-18] MEDS ORDERED: CALCIUM GLUCONATE 10% 1 GM in SOD CHLORIDE 0.9% 100 ML IVPB ONE (07:30)
[2016-10-18] MEDS ORDERED: DEXTROSE 50% 50 ML SYRINGE IV ONE (07:30)
[2016-10-18] MEDS: SALMETEROL/FLUTICASONE 250/50 INHA INH SCH ×2 (08:14→21:00)
[2016-10-18] MEDS: LINAGLIPTIN 5 MG TABLET PO SCH (08:14)
[2016-10-18] MEDS: LACTOBACILLUS RHAMNOSUS CAP PO SCH ×2 (08:14→20:52)
[2016-10-18] MEDS: METOCLOPRAMIDE 5 MG TAB PO SCH ×3 (08:15→17:39)
[2016-10-18] MEDS: BISACODYL (EC) 5 MG TAB PO SCH (08:15)
[2016-10-18] MEDS: MONTELUKAST 10 MG TAB PO SCH (08:15)
[2016-10-18] MEDS: PYRIDOXINE 50 MG TAB PO SCH (08:15)
[2016-10-18] MEDS: CALCIUM ACETATE 667 MG CAP PO SCH ×3 (08:15→17:39)
[2016-10-18] MEDS: CINACALCET 30 MG TAB PO SCH (08:15)
[2016-10-18] MEDS: COLLAGENASE 30 GM TUBE TOP SCH (08:16)
[2016-10-18] MEDS: NICOTINE (21 MG/24 HR) PATCH TRANSDERM SCH (08:16)
[2016-10-18] MEDS: INSULIN ASPART [NOVOLOG] 3 ML PEN SC SCH ×7 (08:28→20:55)
[2016-10-18] MEDS: FUROSEMIDE 40 MG INJ IV SCH (08:29)
[2016-10-18] MEDS: DILTIAZEM (CD) 180 MG CAP PO SCH (08:30)
[2016-10-18] MEDS: METOPROLOL 25 MG TAB PO SCH ×2 (08:30→20:52)
[2016-10-18] MEDS: TIOTROPIUM 18 MCG CAPSULE INHA DEV INH SCH (08:45)
[2016-10-18] MEDS: DOCUSATE SODIUM 100 MG CAP PO SCH (12:41)
[2016-10-18] MEDS: ASPIRIN 81 MG TAB PO SCH (12:41)
[2016-10-18] MEDS: APIXABAN 5 MG TABLET PO SCH ×2 (12:42→21:12)
--- NOTE | 2016-10-18 13:52 | CONS ---
Date/Time of Note Date/Time of Note DATE: 10/18/16 TIME: 13:51 Assessment/Plan Assessment/Plan Chief Complaint/Hosp Course SUBJECTIVE: In HD, no fevers, nad ANTIMICROBIALS: 1. IV vancomycin. 2. Rocephin. Micro: Wound cx + Enterococcus/yeast PHYSICAL EXAMINATION: GENERAL: Morbidly obese, well-developed, elderly woman who is awake, in no distress. HEENT: Head atraumatic, normocephalic. Sclerae anicteric. Buccal mucosa dry. NECK: Supple. CHEST: Rise symmetrical. Breath sounds clear. HEART: S1, S2. ABDOMEN: Soft, bowel sounds present. EXTREMITIES: Without cyanosis. Left upper hip wound with some purulent drainage. ASSESSMENT: 1. Bilateral lower extremities chronic venous stasis with left hip wound, history of debridement and wound vac application. 2. End-stage renal disease, on hemodialysis. 3. Left upper extremity arteriovenous fistula. 4. Obesity. 5. Atrial fibrillation. PLAN: The patient remains stable. Add Diflucan, continue abx, f/u final cx, rec -s of vascular team [facility] staff Problems: Consultation Date/Type/Reason Admit Date/Time October 13, 2016 at 22:11 Initial Consult Date 10/14/16 Type of Consultation: ID Exam/Review of Systems Vital Signs Vitals Vital Signs Date Time Temp Pulse Resp B/P Pulse Ox O2 Delivery O2 Flow Rate FiO2 10/18/16 10:50 110 10/18/16 08:20 18 10/18/16 07:47 98.4 117/56 91 Intake and Output 10/17/16 10/17/16 10/18/16 15:00 23:00 07:00 Intake Total 100 ml 860 ml Balance 100 ml 860 ml Results Result Diagram: 10/18/16 0510 10/18/16 0510 Results 24 hrs Laboratory Tests Test 10/17/16 17:37 10/17/16 20:38 10/18/16 05:10 10/18/16 08:07 Bedside Glucose 141 156 167 White Blood Count 10.1 # Red Blood Count 2.74 L Hemoglobin 8.3 L Hematocrit 27.4 L Mean Corpuscular Volume 100.0 Mean Corpuscular Hemoglobin 30.3 Mean Corpuscular Hemoglobin Concent 30.3 L Red Cell Distribution Width 19.9 H Platelet Count 237 Mean Platelet Volume 10.0 Neutrophils % 62.6 Lymphocytes % 14.6 L Monocytes % 15.1 H Eosinophils % 5.6 Basophils % 1.1 Nucleated Red Blood Cells % 0.0 Neutrophils # 6.3 Lymphocytes # 1.5 Monocytes # 1.5 H Eosinophils # 0.6 H Basophils # 0.1 Nucleated Red Blood Cells # 0.0 Sodium Level 141 Potassium Level 6.4 *H Chloride Level 101 Carbon Dioxide Level 22 Anion Gap 24 H Blood Urea Nitrogen 64 H Creatinine 6.29 H Glucose Level 156 # Calcium Level 9.5 Phosphorus Level 7.8 H Magnesium Level 2.5 Albumin 4.1 Test 10/18/16 08:44 10/18/16 12:09 Bedside Glucose 145 178 Medications Medications Current Medications Dextrose (D50w Syringe) ONCE PRN IV POC BLOOD GLUCOSE <250 MG/DL Last administered on 10/13/16 22:54; Admin Dose 50 ML; Start 10/13/16 at 22:30 Lorazepam (Ativan) 0.5 mg Q6H PRN IV ANXIETY; Start 10/13/16 at 23:30 Ondansetron HCl (Zofran Inj) 4 mg Q6H PRN IV NAUSEA AND/OR VOMITING; Start at 23:30 Acetaminophen (Tylenol Tab) 650 mg Q6H PRN PO PAIN LEVEL 1-3 OR FEVER Last administered on 10/14/16 21:47; Admin Dose 650 MG; Start 10/13/16 at 23:30 Oxycodone/ Acetaminophen (Percocet (5/ 325)) 2 tab Q6H PRN PO PAIN LEVEL 7-10 Last administered on 10/18/16 06:18; Admin Dose 2 TAB; Start 10/13/16 at 23:30 Docusate Sodium (Colace) 100 mg Q12H PO Last administered on 10/18/16 12:41; Admin Dose 100 MG; Start 10/13/16 at 23:30 Bisacodyl (Dulcolax) 5 mg DAILY PO Last administered on 10/18/16 08:15; Admin Dose 5 MG; Start 10/14/16 at 09:00 Pantoprazole (Protonix Iv) 40 mg DAILY@06 IV Last administered on 10/18/16 06: 15; Admin Dose 40 MG; Start 10/14/16 at 06:00 Atorvastatin Calcium (Lipitor) 40 mg QHS PO Last administered on 10/17/16 20:43 ; Admin Dose 40 MG; Start 10/14/16 at 21:00 Benzonatate (Tessalon) 100 mg Q6 PO Last administered on 10/18/16 12:41; Admin Dose 100 MG; Start 10/14/16 at 06:00 Cinacalcet (Sensipar) 30 mg DAILY PO Last administered on 10/18/16 08:15; Admin Dose 30 MG; Start 10/14/16 at 09:00 Montelukast Sodium (Singulair) 10 mg QAM PO Last administered on 10/18/16 08:15 ; Admin Dose 10 MG; Start 10/14/16 at 09:00 Pyridoxine HCl (Vitamin B6) 50 mg DAILY PO Last administered on 10/18/16 08:15 ; Admin Dose 50 MG; Start 10/14/16 at 09:00 Zolpidem Tartrate (Ambien) 5 mg QHS PRN PO INSOMNIA Last administered on 00:36; Admin Dose 5 MG; Start 10/14/16 at 00:30 Salmeterol Xinafoate/ Fluticasone (Advair 250/50 Diskus) 1 inh BID INH Last administered on 10/16/16 20:19; Admin Dose 1 INH; Start 10/14/16 at 09:00 Miscellaneous Information 1 ea NOTE XX ; Start 10/14/16 at 01:00 Glucose (Glutose) 15 gm Q15M PRN PO DECREASED GLUCOSE; Start 10/14/16 at 01:00 Glucose (Glutose) 22.5 gm Q15M PRN PO DECREASED GLUCOSE; Start 10/14/16 at 01:00 Dextrose (D50w Syringe) 25 ml Q15M PRN IV DECREASED GLUCOSE; Start 10/14/16 at 01:00 Dextrose (D50w Syringe) 50 ml Q15M PRN IV DECREASED GLUCOSE; Start 10/14/16 at 01:00 Glucagon (Glucagen) 1 mg Q15M PRN IM DECREASED GLUCOSE; Start 10/14/16 at 01:00 Glucose (Glutose) 15 gm Q15M PRN BUCCAL DECREASED GLUCOSE; Start 10/14/16 at 01: 00 Diagnostic Test (Pha) (Accu-Chek) 1 ea 02 XX Last administered on 10/16/16 02: 56; Admin Dose 1 EA; Start 10/15/16 at 02:00 Collagenase (Santyl) 1 applic DAILY TOP Last administered on 10/18/16 08:16; Admin Dose 1 APPLIC; Start 10/14/16 at 16:00 Nicotine (Nicoderm 21 Mg/ 24hr) 1 patch DAILY TRANSDERM Last administered on 08:16; Admin Dose 1 PATCH; Start 10/14/16 at 17:00 Lactobacillus Acidophilus/ Rhamnosus (Culturelle) 1 cap BID PO Last administered on 10/18/16 08:14; Admin Dose 1 CAP; Start 10/14/16 at 21:00 Acetaminophen/ Hydrocodone Bitart ([place] (5/325)) 1 tab Q6H PRN PO pain Last administered on 10/17/16 20:52; Admin Dose 1 TAB; Start 10/14/16 at 17:00 Furosemide 40 mg 40 mg DAILY IV Last administered on 10/17/16 08:55; Admin Dose 40 MG; Start 10/15/16 at 09:00 Ceftriaxone Sodium (Rocephin) 50 ml @ 100 mls/hr Q24H IVPB Last administered on 10/17/16 18:44; Admin Dose 100 MLS/HR; Start 10/14/16 at 18:00 Metoprolol Tartrate (Lopressor) 75 mg BID PO Last administered on 10/17/16 20: 44; Admin Dose 75 MG; Start 10/15/16 at 21:00 Apixaban (Eliquis) 5 mg BID PO Last administered on 10/18/16 12:42; Admin Dose 5 MG; Start 10/15/16 at 21:00 Aspirin (Aspirin) 81 mg DAILY PO Last administered on 10/18/16 12:41; Admin Dose 81 MG; Start 10/16/16 at 09:00 Diltiazem HCl (Cardizem Cd) 180 mg DAILY PO Last administered on 10/17/16 08:53 ; Admin Dose 180 MG; Start 10/16/16 at 09:00 Tiotropium [place] (Spiriva) 1 inh DAILY INH Last administered on 10/18/16 08: 45; Admin Dose 1 INH; Start 10/17/16 at 09:00 Insulin Detemir (Levemir) 50 unit QHS SC Last administered on 10/17/16 20:47; Admin Dose 50 UNIT; Start 10/17/16 at 21:00 Linagliptin (Tradjenta) 5 mg DAILY PO Last administered on 10/18/16 08:14; Admin Dose 5 MG; Start 10/17/16 at 11:00 TODD RAMIRES NP Oct 18, 2016 13:52
[2016-10-18] MEDS: FLUCONAZOLE 100 MG TAB PO SCH (14:44)
--- NOTE | 2016-10-18 15:12 | CONS ---
Date/Time of Note Date/Time of Note DATE: 10/18/16 TIME: 15:11 Assessment/Plan Assessment/Plan Chief Complaint/Hosp Course - ESRD on Hemodialysis @ [facility] [place] ( [place] ) - DIABETES - CHRONIC ANEMIA - HYPERTENSION - HYPERPHOSPHATEMIA - LOWER EXTREMITY CELLULITIS ( S/P Debridement & VAC ) PLAN: Bedside dialysis to correct potassium Will plan for UF ~ 4 Kg ( She has gained a lot of weight ) Continue with Abx Surgical evaluation Continue with all Meds Problems: Consultation Date/Type/Reason Admit Date/Time October 13, 2016 at 22:11 Initial Consult Date 10/14/16 Type of Consultation: NEPHROLOGY 24 HR Interval Summary Constitutional: improved, no complaints Exam/Review of Systems Vital Signs Vitals Vital Signs Date Time Temp Pulse Resp B/P Pulse Ox O2 Delivery O2 Flow Rate FiO2 10/18/16 11:20 120 18 10/18/16 07:47 98.4 117/56 91 Intake and Output 10/17/16 10/17/16 10/18/16 15:00 23:00 07:00 Intake Total 100 ml 860 ml Balance 100 ml 860 ml Exam Constitutional: alert, oriented Respiratory: crackles/rales Cardiovascular: edema, systolic murmur Gastrointestinal: soft Results Result Diagram: 10/18/16 0510 10/18/16 0510 Results 24 hrs Laboratory Tests Test 10/17/16 17:37 10/17/16 20:38 10/18/16 05:10 10/18/16 08:07 Bedside Glucose 141 156 167 White Blood Count 10.1 # Red Blood Count 2.74 L Hemoglobin 8.3 L Hematocrit 27.4 L Mean Corpuscular Volume 100.0 Mean Corpuscular Hemoglobin 30.3 Mean Corpuscular Hemoglobin Concent 30.3 L Red Cell Distribution Width 19.9 H Platelet Count 237 Mean Platelet Volume 10.0 Neutrophils % 62.6 Lymphocytes % 14.6 L Monocytes % 15.1 H Eosinophils % 5.6 Basophils % 1.1 Nucleated Red Blood Cells % 0.0 Neutrophils # 6.3 Lymphocytes # 1.5 Monocytes # 1.5 H Eosinophils # 0.6 H Basophils # 0.1 Nucleated Red Blood Cells # 0.0 Sodium Level 141 Potassium Level 6.4 *H Chloride Level 101 Carbon Dioxide Level 22 Anion Gap 24 H Blood Urea Nitrogen 64 H Creatinine 6.29 H Glucose Level 156 # Calcium Level 9.5 Phosphorus Level 7.8 H Magnesium Level 2.5 Albumin 4.1 Test 10/18/16 08:44 10/18/16 12:09 Bedside Glucose 145 178 Medications Medications Current Medications Dextrose (D50w Syringe) ONCE PRN IV POC BLOOD GLUCOSE <250 MG/DL Last administered on 10/13/16 22:54; Admin Dose 50 ML; Start 10/13/16 at 22:30 Lorazepam (Ativan) 0.5 mg Q6H PRN IV ANXIETY; Start 10/13/16 at 23:30 Ondansetron HCl (Zofran Inj) 4 mg Q6H PRN IV NAUSEA AND/OR VOMITING; Start at 23:30 Acetaminophen (Tylenol Tab) 650 mg Q6H PRN PO PAIN LEVEL 1-3 OR FEVER Last administered on 10/14/16 21:47; Admin Dose 650 MG; Start 10/13/16 at 23:30 Oxycodone/ Acetaminophen (Percocet (5/ 325)) 2 tab Q6H PRN PO PAIN LEVEL 7-10 Last administered on 10/18/16 06:18; Admin Dose 2 TAB; Start 10/13/16 at 23:30 Docusate Sodium (Colace) 100 mg Q12H PO Last administered on 10/18/16 12:41; Admin Dose 100 MG; Start 10/13/16 at 23:30 Bisacodyl (Dulcolax) 5 mg DAILY PO Last administered on 10/18/16 08:15; Admin Dose 5 MG; Start 10/14/16 at 09:00 Pantoprazole (Protonix Iv) 40 mg DAILY@06 IV Last administered on 10/18/16 06: 15; Admin Dose 40 MG; Start 10/14/16 at 06:00 Atorvastatin Calcium (Lipitor) 40 mg QHS PO Last administered on 10/17/16 20:43 ; Admin Dose 40 MG; Start 10/14/16 at 21:00 Benzonatate (Tessalon) 100 mg Q6 PO Last administered on 10/18/16 12:41; Admin Dose 100 MG; Start 10/14/16 at 06:00 Cinacalcet (Sensipar) 30 mg DAILY PO Last administered on 10/18/16 08:15; Admin Dose 30 MG; Start 10/14/16 at 09:00 Montelukast Sodium (Singulair) 10 mg QAM PO Last administered on 10/18/16 08:15 ; Admin Dose 10 MG; Start 10/14/16 at 09:00 Pyridoxine HCl (Vitamin B6) 50 mg DAILY PO Last administered on 10/18/16 08:15 ; Admin Dose 50 MG; Start 10/14/16 at 09:00 Zolpidem Tartrate (Ambien) 5 mg QHS PRN PO INSOMNIA Last administered on 00:36; Admin Dose 5 MG; Start 10/14/16 at 00:30 Salmeterol Xinafoate/ Fluticasone (Advair 250/50 Diskus) 1 inh BID INH Last administered on 10/16/16 20:19; Admin Dose 1 INH; Start 10/14/16 at 09:00 Miscellaneous Information 1 ea NOTE XX ; Start 10/14/16 at 01:00 Glucose (Glutose) 15 gm Q15M PRN PO DECREASED GLUCOSE; Start 10/14/16 at 01:00 Glucose (Glutose) 22.5 gm Q15M PRN PO DECREASED GLUCOSE; Start 10/14/16 at 01:00 Dextrose (D50w Syringe) 25 ml Q15M PRN IV DECREASED GLUCOSE; Start 10/14/16 at 01:00 Dextrose (D50w Syringe) 50 ml Q15M PRN IV DECREASED GLUCOSE; Start 10/14/16 at 01:00 Glucagon (Glucagen) 1 mg Q15M PRN IM DECREASED GLUCOSE; Start 10/14/16 at 01:00 Glucose (Glutose) 15 gm Q15M PRN BUCCAL DECREASED GLUCOSE; Start 10/14/16 at 01: 00 Diagnostic Test (Pha) (Accu-Chek) 1 ea 02 XX Last administered on 10/16/16 02: 56; Admin Dose 1 EA; Start 10/15/16 at 02:00 Collagenase (Santyl) 1 applic DAILY TOP Last administered on 10/18/16 08:16; Admin Dose 1 APPLIC; Start 10/14/16 at 16:00 Nicotine (Nicoderm 21 Mg/ 24hr) 1 patch DAILY TRANSDERM Last administered on 08:16; Admin Dose 1 PATCH; Start 10/14/16 at 17:00 Lactobacillus Acidophilus/ Rhamnosus (Culturelle) 1 cap BID PO Last administered on 10/18/16 08:14; Admin Dose 1 CAP; Start 10/14/16 at 21:00 Acetaminophen/ Hydrocodone Bitart ([place] (5/325)) 1 tab Q6H PRN PO pain Last administered on 10/17/16 20:52; Admin Dose 1 TAB; Start 10/14/16 at 17:00 Furosemide 40 mg 40 mg DAILY IV Last administered on 10/17/16 08:55; Admin Dose 40 MG; Start 10/15/16 at 09:00 Ceftriaxone Sodium (Rocephin) 50 ml @ 100 mls/hr Q24H IVPB Last administered on 10/17/16 18:44; Admin Dose 100 MLS/HR; Start 10/14/16 at 18:00 Metoprolol Tartrate (Lopressor) 75 mg BID PO Last administered on 10/17/16 20: 44; Admin Dose 75 MG; Start 10/15/16 at 21:00 Apixaban (Eliquis) 5 mg BID PO Last administered on 10/18/16 12:42; Admin Dose 5 MG; Start 10/15/16 at 21:00 Aspirin (Aspirin) 81 mg DAILY PO Last administered on 10/18/16 12:41; Admin Dose 81 MG; Start 10/16/16 at 09:00 Diltiazem HCl (Cardizem Cd) 180 mg DAILY PO Last administered on 10/17/16 08:53 ; Admin Dose 180 MG; Start 10/16/16 at 09:00 Tiotropium [place] (Spiriva) 1 inh DAILY INH Last administered on 10/18/16 08: 45; Admin Dose 1 INH; Start 10/17/16 at 09:00 Insulin Detemir (Levemir) 50 unit QHS SC Last administered on 10/17/16 20:47; Admin Dose 50 UNIT; Start 10/17/16 at 21:00 Linagliptin (Tradjenta) 5 mg DAILY PO Last administered on 10/18/16 08:14; Admin Dose 5 MG; Start 10/17/16 at 11:00 Fluconazole (Diflucan) 100 mg DAILY PO Last administered on 10/18/16 14:44; Admin Dose 100 MG; Start 10/18/16 at 14:00 BECKY GAMBLE MD Oct 18, 2016 15:12
--- NOTE | 2016-10-18 16:19 | RADRPT ---
PROCEDURE: XR Chest. CLINICAL INDICATION: PRE OP EVAL TECHNIQUE: Single frontal view of the chest was obtained. COMPARISON: Chest x-ray from 09/09/2016 FINDINGS: There is stable cardiomegaly. There is mild to moderate pulmonary vascular congestion. No definite focal infiltrates are identified. The aortic arch is calcified. There may be a small right pleural effusion. IMPRESSION: Stable cardiomegaly with mild to moderate pulmonary vascular congestion. Possible small right pleural effusion. Aortic atherosclerosis. RPTAT: EE Prosper Arriaga Physician Date Time Electronically viewed and signed by Prosper Arriaga Physician on 10/18/2016 16:19 /
--- NOTE | 2016-10-18 16:29 | PN ---
Date/Time of Note Date/Time of Note DATE: 10/18/16 TIME: 16:26 Assessment/Plan VTE Prophylaxis VTE Prophylaxis Intervention: other Lines/Catheters IV Catheter Type (from [facility]): [place] [facility] Urinary Cath still in place: No Assessment/Plan Chief Complaint/Hosp Course 1. Chronic infected Left thigh wound. * This is a chronic wound the patient has been dealing with for approximately 4 months she had a wound VAC placed approximately 2 weeks ago, none now * Wound cultures still negative so far, plan is for debridement tomorrow * MRI showed no osteo 2. Atrial fibrillation. Patient is currently rate controlled / anticoagulated on Eliquis 3. End-stage renal disease. We will consult nephrology for dialysis as her schedule is Tuesday and Tuesday. Will continue her home medications. 4. Iron deficiency Anemia, likely of chronic disease and end-stage renal disease. . 5. Hypertension. Continue home medications. 6. Diabetes type 2 : uncontrolled 7. Dyslipidemia. Continue statin. 8. Anasarca: Continue supplemental albumin therapy to help with diuresis if okay with nephrology 9. Tobacco use and abuse: 10. Non compliance Plan: * F/u final wound cultures / appreciate ID / debridement planned for tomorrow * Continue CCB and BB and titrate as indicated for rate control * Patient is extremely non compliant with diabetic diet and is constantly snacking. Will increase basal slightly and add tradjenta * D/c ARB for persistent hyperkalemia * Continue IV iron infusion for iron deficiency * Continue Eliquis * Pt. was lectured for greater than 3 minutes on the health risks of continued smoking and the benefits of cessation and this will continue to be reinforced throughout hospitalization. DVT and GI prophylaxis: Eliquis and Protonix Further treatment strategy will be implemented as per the clinical course. Problems: Subjective 24 Hr Interval Summary Constitutional: no complaints Exam/Review of Systems Vital Signs Vitals Vital Signs Date Time Temp Pulse Resp B/P Pulse Ox O2 Delivery O2 Flow Rate FiO2 10/18/16 11:20 120 18 10/18/16 07:47 98.4 117/56 91 Intake and Output 10/17/16 10/17/16 10/18/16 15:00 23:00 07:00 Intake Total 100 ml 860 ml Balance 100 ml 860 ml Exam Constitutional: alert Respiratory: clear to auscultation Cardiovascular: regular rate and rhythm Gastrointestinal: soft, No distended Musculoskeletal: No nl extremities to inspection Results Result Diagram: 10/18/16 0510 10/18/16 0510 Results 24 hrs Laboratory Tests Test 10/17/16 17:37 10/17/16 20:38 10/18/16 05:10 10/18/16 08:07 Bedside Glucose 141 156 167 White Blood Count 10.1 # Red Blood Count 2.74 L Hemoglobin 8.3 L Hematocrit 27.4 L Mean Corpuscular Volume 100.0 Mean Corpuscular Hemoglobin 30.3 Mean Corpuscular Hemoglobin Concent 30.3 L Red Cell Distribution Width 19.9 H Platelet Count 237 Mean Platelet Volume 10.0 Neutrophils % 62.6 Lymphocytes % 14.6 L Monocytes % 15.1 H Eosinophils % 5.6 Basophils % 1.1 Nucleated Red Blood Cells % 0.0 Neutrophils # 6.3 Lymphocytes # 1.5 Monocytes # 1.5 H Eosinophils # 0.6 H Basophils # 0.1 Nucleated Red Blood Cells # 0.0 Sodium Level 141 Potassium Level 6.4 *H Chloride Level 101 Carbon Dioxide Level 22 Anion Gap 24 H Blood Urea Nitrogen 64 H Creatinine 6.29 H Glucose Level 156 # Calcium Level 9.5 Phosphorus Level 7.8 H Magnesium Level 2.5 Albumin 4.1 Test 10/18/16 08:44 10/18/16 12:09 Bedside Glucose 145 178 Medications Medications Current Medications Dextrose (D50w Syringe) ONCE PRN IV POC BLOOD GLUCOSE <250 MG/DL Last administered on 10/13/16 22:54; Admin Dose 50 ML; Start 10/13/16 at 22:30 Lorazepam (Ativan) 0.5 mg Q6H PRN IV ANXIETY; Start 10/13/16 at 23:30 Ondansetron HCl (Zofran Inj) 4 mg Q6H PRN IV NAUSEA AND/OR VOMITING; Start at 23:30 Acetaminophen (Tylenol Tab) 650 mg Q6H PRN PO PAIN LEVEL 1-3 OR FEVER Last administered on 10/14/16 21:47; Admin Dose 650 MG; Start 10/13/16 at 23:30 Oxycodone/ Acetaminophen (Percocet (5/ 325)) 2 tab Q6H PRN PO PAIN LEVEL 7-10 Last administered on 10/18/16 06:18; Admin Dose 2 TAB; Start 10/13/16 at 23:30 Docusate Sodium (Colace) 100 mg Q12H PO Last administered on 10/18/16 12:41; Admin Dose 100 MG; Start 10/13/16 at 23:30 Bisacodyl (Dulcolax) 5 mg DAILY PO Last administered on 10/18/16 08:15; Admin Dose 5 MG; Start 10/14/16 at 09:00 Pantoprazole (Protonix Iv) 40 mg DAILY@06 IV Last administered on 10/18/16 06: 15; Admin Dose 40 MG; Start 10/14/16 at 06:00 Atorvastatin Calcium (Lipitor) 40 mg QHS PO Last administered on 10/17/16 20:43 ; Admin Dose 40 MG; Start 10/14/16 at 21:00 Benzonatate (Tessalon) 100 mg Q6 PO Last administered on 10/18/16 12:41; Admin Dose 100 MG; Start 10/14/16 at 06:00 Cinacalcet (Sensipar) 30 mg DAILY PO Last administered on 10/18/16 08:15; Admin Dose 30 MG; Start 10/14/16 at 09:00 Montelukast Sodium (Singulair) 10 mg QAM PO Last administered on 10/18/16 08:15 ; Admin Dose 10 MG; Start 10/14/16 at 09:00 Pyridoxine HCl (Vitamin B6) 50 mg DAILY PO Last administered on 10/18/16 08:15 ; Admin Dose 50 MG; Start 10/14/16 at 09:00 Zolpidem Tartrate (Ambien) 5 mg QHS PRN PO INSOMNIA Last administered on 00:36; Admin Dose 5 MG; Start 10/14/16 at 00:30 Salmeterol Xinafoate/ Fluticasone (Advair 250/50 Diskus) 1 inh BID INH Last administered on 10/16/16 20:19; Admin Dose 1 INH; Start 10/14/16 at 09:00 Miscellaneous Information 1 ea NOTE XX ; Start 10/14/16 at 01:00 Glucose (Glutose) 15 gm Q15M PRN PO DECREASED GLUCOSE; Start 10/14/16 at 01:00 Glucose (Glutose) 22.5 gm Q15M PRN PO DECREASED GLUCOSE; Start 10/14/16 at 01:00 Dextrose (D50w Syringe) 25 ml Q15M PRN IV DECREASED GLUCOSE; Start 10/14/16 at 01:00 Dextrose (D50w Syringe) 50 ml Q15M PRN IV DECREASED GLUCOSE; Start 10/14/16 at 01:00 Glucagon (Glucagen) 1 mg Q15M PRN IM DECREASED GLUCOSE; Start 10/14/16 at 01:00 Glucose (Glutose) 15 gm Q15M PRN BUCCAL DECREASED GLUCOSE; Start 10/14/16 at 01: 00 Diagnostic Test (Pha) (Accu-Chek) 1 ea 02 XX Last administered on 10/16/16 02: 56; Admin Dose 1 EA; Start 10/15/16 at 02:00 Collagenase (Santyl) 1 applic DAILY TOP Last administered on 10/18/16 08:16; Admin Dose 1 APPLIC; Start 10/14/16 at 16:00 Nicotine (Nicoderm 21 Mg/ 24hr) 1 patch DAILY TRANSDERM Last administered on 08:16; Admin Dose 1 PATCH; Start 10/14/16 at 17:00 Lactobacillus Acidophilus/ Rhamnosus (Culturelle) 1 cap BID PO Last administered on 10/18/16 08:14; Admin Dose 1 CAP; Start 10/14/16 at 21:00 Acetaminophen/ Hydrocodone Bitart ([place] (5/325)) 1 tab Q6H PRN PO pain Last administered on 10/17/16 20:52; Admin Dose 1 TAB; Start 10/14/16 at 17:00 Furosemide 40 mg 40 mg DAILY IV Last administered on 10/17/16 08:55; Admin Dose 40 MG; Start 10/15/16 at 09:00 Ceftriaxone Sodium (Rocephin) 50 ml @ 100 mls/hr Q24H IVPB Last administered on 10/17/16 18:44; Admin Dose 100 MLS/HR; Start 10/14/16 at 18:00 Metoprolol Tartrate (Lopressor) 75 mg BID PO Last administered on 10/17/16 20: 44; Admin Dose 75 MG; Start 10/15/16 at 21:00 Apixaban (Eliquis) 5 mg BID PO Last administered on 10/18/16 12:42; Admin Dose 5 MG; Start 10/15/16 at 21:00 Aspirin (Aspirin) 81 mg DAILY PO Last administered on 10/18/16 12:41; Admin Dose 81 MG; Start 10/16/16 at 09:00 Diltiazem HCl (Cardizem Cd) 180 mg DAILY PO Last administered on 10/17/16 08:53 ; Admin Dose 180 MG; Start 10/16/16 at 09:00 Tiotropium [place] (Spiriva) 1 inh DAILY INH Last administered on 10/18/16 08: 45; Admin Dose 1 INH; Start 10/17/16 at 09:00 Insulin Detemir (Levemir) 50 unit QHS SC Last administered on 10/17/16 20:47; Admin Dose 50 UNIT; Start 10/17/16 at 21:00 Linagliptin (Tradjenta) 5 mg DAILY PO Last administered on 10/18/16 08:14; Admin Dose 5 MG; Start 10/17/16 at 11:00 Fluconazole (Diflucan) 100 mg DAILY PO Last administered on 10/18/16 14:44; Admin Dose 100 MG; Start 10/18/16 at 14:00 MICHAEL COULTER Oct 18, 2016 16:29
[2016-10-18] MEDS: CEFTRIAXONE 1 GM/NS 50 ML IVPB SCH (17:39)
[2016-10-18] MEDS: ATORVASTATIN 40 MG TAB PO SCH (20:51)
[2016-10-18] MEDS: INSULIN DETEMIR [LEVEMIR] 3ML CART SC SCH (21:00)
[2016-10-18] MEDS ORDERED: INSULIN DETEMIR [LEVEMIR] 3ML CART SC ONE (21:08)
[2016-10-19] VITALS (19 sets, daily range): BP systolic 92–137; BP diastolic 57–85; PULSE 16–125; RESP 16–21
[2016-10-19] MEDS ORDERED: DEXTROSE 5%-0.45% NACL 1,000 ML IV SCH
[2016-10-19] MEDS: DOCUSATE SODIUM 100 MG CAP PO SCH ×3 (00:20→23:45)
[2016-10-19] MEDS: BENZONATATE 100 MG CAP PO SCH ×5 (00:20→23:45)
[2016-10-19] MEDS: ZOLPIDEM 5 MG TAB PO PRN (01:36)
[2016-10-19] MEDS: PANTOPRAZOLE 40 MG INJ IV SCH (05:40)
[2016-10-19 05:43] LABS: ADD SCAN DIFF NO
[2016-10-19] MEDS: INSULIN ASPART [NOVOLOG] 3 ML PEN SC SCH ×8 (05:45→20:53)
[2016-10-19 05:54] LABS: BASOPHIL # 0.1 10^3/ul (0.0-0.1); EOSINOPHILS # 0.5 10^3/ul (0.0-0.5); EOSINOPHILS % 5.1 % (0.0-7.0); HEMATOCRIT 27.4 % (37.0-47.0); HEMOGLOBIN 8.4 g/dl (12.0-16.0); LYMPHOCYTES # 1.2 10^3/ul (0.8-2.9); LYMPHOCYTES % 13.5 % (15.0-51.0); MEAN CORPUSCULAR HEMOGLOBIN 30.3 pg (29.0-33.0); MEAN CORPUSCULAR HGB CONC 30.7 g/dl (32.0-37.0); MEAN CORPUSCULAR VOLUME 98.9 fl (82.0-101.0); MEAN PLATELET VOLUME 9.9 fl (7.4-10.4); MONOCYTE # 1.5 10^3/ul (0.3-0.9); MONOCYTES % 15.9 % (0.0-11.0); NEUTROPHIL # 5.8 10^3/ul (1.6-7.5); NEUTROPHILS % 63.5 % (39.0-77.0); PLATELET COUNT 239 10^3/UL (140-415); RED BLOOD COUNT 2.77 10^6/ul (4.20-5.40); RED CELL DISTRIBUTION WIDTH 19.3 % (11.5-14.5); WHITE BLOOD COUNT 9.1 10^3/ul (4.8-10.8)
[2016-10-19 06:07] LABS: INR 1.71; PROTIME 20.2 Sec (12.2-14.2); PT RATIO 1.6
[2016-10-19 06:12] LABS: ALBUMIN 4.1 g/dl (3.3-4.9); CALCIUM 9.2 mg/dl (8.4-10.2); CREATININE 4.74 mg/dl (0.44-1.00); PHOSPHORUS 6.4 mg/dl (2.5-4.9); POTASSIUM 5.1 mmol/L (3.5-5.1)
[2016-10-19 06:28] LABS: CALCIUM 9.2 mg/dl (8.4-10.2); CREATININE 4.8 mg/dl (0.44-1.00); POTASSIUM 4.9 mmol/L (3.5-5.1)
[2016-10-19] MEDS: METOCLOPRAMIDE 5 MG TAB PO SCH ×3 (07:42→17:29)
[2016-10-19] MEDS: CALCIUM ACETATE 667 MG CAP PO SCH ×3 (07:43→17:29)
[2016-10-19] MEDS ORDERED: VANCOMYCIN 1 GM in NS 250 ML IVPB SCH (08:00)
[2016-10-19] MEDS: APIXABAN 5 MG TABLET PO SCH ×2 (09:00→20:52)
[2016-10-19] MEDS: DILTIAZEM (CD) 180 MG CAP PO SCH (09:00)
[2016-10-19] MEDS: LACTOBACILLUS RHAMNOSUS CAP PO SCH ×2 (09:00→20:52)
[2016-10-19] MEDS: BISACODYL (EC) 5 MG TAB PO SCH (09:00)
[2016-10-19] MEDS: MONTELUKAST 10 MG TAB PO SCH (09:00)
[2016-10-19] MEDS: ASPIRIN 81 MG TAB PO SCH (09:00)
[2016-10-19] MEDS: METOPROLOL 25 MG TAB PO SCH ×2 (09:00→20:52)
[2016-10-19] MEDS: LINAGLIPTIN 5 MG TABLET PO SCH (09:00)
[2016-10-19] MEDS: TIOTROPIUM 18 MCG CAPSULE INHA DEV INH SCH (09:00)
[2016-10-19] MEDS: FLUCONAZOLE 100 MG TAB PO SCH (09:00)
[2016-10-19] MEDS: FUROSEMIDE 40 MG INJ IV SCH (09:00)
[2016-10-19] MEDS: CINACALCET 30 MG TAB PO SCH (09:00)
[2016-10-19] MEDS: NICOTINE (21 MG/24 HR) PATCH TRANSDERM SCH ×2 (09:00→18:55)
[2016-10-19] MEDS: PYRIDOXINE 50 MG TAB PO SCH (09:00)
[2016-10-19] MEDS: SALMETEROL/FLUTICASONE 250/50 INHA INH SCH ×2 (09:00→20:52)
[2016-10-19] MEDS: COLLAGENASE 30 GM TUBE TOP SCH (09:00)
[2016-10-19] MEDS ORDERED: VANCOMYCIN 1 GM INJ ONE (10:54)
[2016-10-19] MEDS ORDERED: FENTAnyl 50 MCG/ML VIAL ONE ×2 (11:10→11:16)
[2016-10-19] MEDS ORDERED: MIDAZOLAM 1 MG/ML 2 ML INJ ONE (11:10)
--- NOTE | 2016-10-19 11:13 | HPN ---
Date/Time of Note Date/Time of Note DATE: 10/19/16 TIME: 11:13 Interval H&P Admission Note Pt. seen H&P reviewed: No system changes MAYLIN BROWN MD Oct 19, 2016 11:13
[2016-10-19] MEDS ORDERED: LIDOCAINE 1% (MPF) 30 ML INJ INJ ONE (11:21)
[2016-10-19] MEDS ORDERED: morphine 10 MG INJ ONE (11:22)
[2016-10-19] MEDS ORDERED: DIPHENHYDRAMINE 50 MG INJ IV PRN (12:00)
[2016-10-19] MEDS ORDERED: ONDANSETRON 4 MG INJ IV PRN (12:00)
[2016-10-19] MEDS ORDERED: FENTAnyl 50 MCG/ML VIAL IV PRN (12:00)
--- NOTE | 2016-10-19 12:52 | OPR ---
DATE OF OPERATION: 10/19/2016 PREOPERATIVE DIAGNOSIS: Left lower extremity upper thigh wound measuring 6 x 4 x 3 cm. POSTOPERATIVE DIAGNOSIS: Left lower extremity upper thigh wound measuring 6 x 4 x 3 cm. SURGEON: Stephen Fuentes MD ANESTHESIA: Sedation and local. BLOOD LOSS: Minimal. COMPLICATIONS: None. SPECIMEN: Necrotic tissue sent for microbiology. INDICATIONS: This is a 61-year-old noncompliant diabetic female who had presented with left lower e xtremity thigh wound in which she undergone debridement and wound VAC management had been initiated. Unfortunately, the patient had not followed up with our office nor with her local wound care and r eturned upon bilateral lower extremity abscess formations and worsening of her thigh wound. Upon ri sks, benefits and alternatives, which we informed the patient, she has agreed to proceed with the monreal rgery. Risks including, but not limited to, bleeding, thrombosis, myocardial infarction, , str homero, multiple debridements, infection, limb loss, nerve injury, and the patient has agreed to jose vogel. PROCEDURE PERFORMED: 1. Excisional sharp debridement of the left upper thigh involving skin and subcutaneous tissue woun d measuring 6 x 4 x 3 cm. 2. Application of KCI silver sponge wound VAC system. FINDINGS: Necrotic tissue of the left upper thigh wound. DESCRIPTION OF PROCEDURE: The patient was placed in supine position on the operating room table. T he normal bony prominences were padded. The anesthesia team had placed the appropriate lines and a nesthesia was given. Timeout and appropriate site was marked and confirmed. Preoperative antibioti cs were administered prior to skin incision. Using sharp scissors and a #15 blade, excisional sharp debridement of the skin and subcutaneous tiss ue was performed in the upper thigh wound. The wound had superficial necrotic fibrinous tissues whi ch were excised. The wound measured 6 x 4 x 3 cm. Following this, in the region of swetha wray, we went ahead and irrigated the wound with antibiotic solution. Once the wound had a clean base and adequate healthy tissue, we went ahead and placed a silver foam KCI wound VAC. Settings were pl aced at 175 mmHg, high intensity and continuous. The patient tolerated the procedure well and was t aken to the postanesthesia care unit in stable condition. All instruments, needles, sponges were co rrect x2. Dictated By: STEPHEN BHAT/BLANCA Conf#: [id number] DID#: [id number]
--- NOTE | 2016-10-19 13:56 | CONS ---
Date/Time of Note Date/Time of Note DATE: 10/19/16 TIME: 13:55 Assessment/Plan Assessment/Plan Chief Complaint/Hosp Course SUBJECTIVE: No events, no fevers, nad ANTIMICROBIALS: 1. IV vancomycin. 2. Rocephin. 3. Diflucan Micro: Wound cx + Enterococcus/yeast PHYSICAL EXAMINATION: GENERAL: Morbidly obese, well-developed, elderly woman who is awake, in no distress. HEENT: Head atraumatic, normocephalic. Sclerae anicteric. Buccal mucosa dry. NECK: Supple. CHEST: Rise symmetrical. Breath sounds clear. HEART: S1, S2. ABDOMEN: Soft, bowel sounds present. EXTREMITIES: Without cyanosis. Left upper hip wound with some purulent drainage. ASSESSMENT: 1. Bilateral lower extremities chronic venous stasis with left hip wound, history of debridement and wound vac application. 2. End-stage renal disease, on hemodialysis. 3. Left upper extremity arteriovenous fistula. 4. Obesity. 5. Atrial fibrillation. PLAN: The patient remains stable. Continue abx, f/u final cx, pending debridement DW staff Problems: Consultation Date/Type/Reason Admit Date/Time October 13, 2016 at 22:11 Initial Consult Date 10/14/16 Type of Consultation: ID Exam/Review of Systems Vital Signs Vitals Vital Signs Date Time Temp Pulse Resp B/P Pulse Ox O2 Delivery O2 Flow Rate FiO2 10/19/16 12:16 110 17 92/62 90 Room Air 10/19/16 12:01 2.0 10/19/16 11:47 99.0 Intake and Output 10/18/16 10/18/16 10/19/16 15:00 23:00 07:00 Intake Total 1210 ml 990 ml 270 ml Output Total 3800 ml 200 ml Balance -2590 ml 790 ml 270 ml Results Result Diagram: 10/19/16 0508 10/19/16 0508 Results 24 hrs Laboratory Tests Test 10/18/16 17:37 10/18/16 20:54 10/19/16 05:08 10/19/16 05:38 Bedside Glucose 111 137 241 H White Blood Count 9.1 Red Blood Count 2.77 L Hemoglobin 8.4 L Hematocrit 27.4 L Mean Corpuscular Volume 98.9 Mean Corpuscular Hemoglobin 30.3 Mean Corpuscular Hemoglobin Concent 30.7 L Red Cell Distribution Width 19.3 H Platelet Count 239 Mean Platelet Volume 9.9 Neutrophils % 63.5 Lymphocytes % 13.5 L Monocytes % 15.9 H Eosinophils % 5.1 Basophils % 1.0 Nucleated Red Blood Cells % 0.0 Neutrophils # 5.8 Lymphocytes # 1.2 Monocytes # 1.5 H Eosinophils # 0.5 Basophils # 0.1 Nucleated Red Blood Cells # 0.0 Prothrombin Time 20.2 H Prothrombin Time Ratio 1.6 INR International Normalized Ratio 1.71 Activated Partial Thromboplast Time 47.0 H Sodium Level 140 Potassium Level 5.1 Chloride Level 101 Carbon Dioxide Level 25 Anion Gap 19 H Blood Urea Nitrogen 54 H Creatinine 4.74 H Glucose Level 223 H Calcium Level 9.2 Phosphorus Level 6.4 H Albumin 4.1 Random Vancomycin Level 14.3 Test 10/19/16 08:58 Bedside Glucose 227 H Medications Medications Current Medications Dextrose (D50w Syringe) ONCE PRN IV POC BLOOD GLUCOSE <250 MG/DL Last administered on 10/13/16 22:54; Admin Dose 50 ML; Start 10/13/16 at 22:30 Lorazepam (Ativan) 0.5 mg Q6H PRN IV ANXIETY Last administered on 10/19/16 00: 40; Admin Dose 0.5 MG; Start 10/13/16 at 23:30 Ondansetron HCl (Zofran Inj) 4 mg Q6H PRN IV NAUSEA AND/OR VOMITING; Start at 23:30 Acetaminophen (Tylenol Tab) 650 mg Q6H PRN PO PAIN LEVEL 1-3 OR FEVER Last administered on 10/14/16 21:47; Admin Dose 650 MG; Start 10/13/16 at 23:30 Oxycodone/ Acetaminophen (Percocet (5/ 325)) 2 tab Q6H PRN PO PAIN LEVEL 7-10 Last administered on 10/18/16 18:52; Admin Dose 2 TAB; Start 10/13/16 at 23:30 Docusate Sodium (Colace) 100 mg Q12H PO Last administered on 10/19/16 00:20; Admin Dose 100 MG; Start 10/13/16 at 23:30 Bisacodyl (Dulcolax) 5 mg DAILY PO Last administered on 10/18/16 08:15; Admin Dose 5 MG; Start 10/14/16 at 09:00 Pantoprazole (Protonix Iv) 40 mg DAILY@06 IV Last administered on 10/19/16 05: 40; Admin Dose 40 MG; Start 10/14/16 at 06:00 Atorvastatin Calcium (Lipitor) 40 mg QHS PO Last administered on 10/18/16 20:51 ; Admin Dose 40 MG; Start 10/14/16 at 21:00 Benzonatate (Tessalon) 100 mg Q6 PO Last administered on 10/19/16 05:43; Admin Dose 100 MG; Start 10/14/16 at 06:00 Cinacalcet (Sensipar) 30 mg DAILY PO Last administered on 10/18/16 08:15; Admin Dose 30 MG; Start 10/14/16 at 09:00 Montelukast Sodium (Singulair) 10 mg QAM PO Last administered on 10/18/16 08:15 ; Admin Dose 10 MG; Start 10/14/16 at 09:00 Pyridoxine HCl (Vitamin B6) 50 mg DAILY PO Last administered on 10/18/16 08:15 ; Admin Dose 50 MG; Start 10/14/16 at 09:00 Zolpidem Tartrate (Ambien) 5 mg QHS PRN PO INSOMNIA Last administered on 01:36; Admin Dose 5 MG; Start 10/14/16 at 00:30 Salmeterol Xinafoate/ Fluticasone (Advair 250/50 Diskus) 1 inh BID INH Last administered on 10/16/16 20:19; Admin Dose 1 INH; Start 10/14/16 at 09:00 Miscellaneous Information 1 ea NOTE XX ; Start 10/14/16 at 01:00 Glucose (Glutose) 15 gm Q15M PRN PO DECREASED GLUCOSE; Start 10/14/16 at 01:00 Glucose (Glutose) 22.5 gm Q15M PRN PO DECREASED GLUCOSE; Start 10/14/16 at 01:00 Dextrose (D50w Syringe) 25 ml Q15M PRN IV DECREASED GLUCOSE; Start 10/14/16 at 01:00 Dextrose (D50w Syringe) 50 ml Q15M PRN IV DECREASED GLUCOSE; Start 10/14/16 at 01:00 Glucagon (Glucagen) 1 mg Q15M PRN IM DECREASED GLUCOSE; Start 10/14/16 at 01:00 Glucose (Glutose) 15 gm Q15M PRN BUCCAL DECREASED GLUCOSE; Start 10/14/16 at 01: 00 Collagenase (Santyl) 1 applic DAILY TOP Last administered on 10/18/16 08:16; Admin Dose 1 APPLIC; Start 10/14/16 at 16:00 Nicotine (Nicoderm 21 Mg/ 24hr) 1 patch DAILY TRANSDERM Last administered on 08:16; Admin Dose 1 PATCH; Start 10/14/16 at 17:00 Lactobacillus Acidophilus/ Rhamnosus (Culturelle) 1 cap BID PO Last administered on 10/18/16 20:52; Admin Dose 1 CAP; Start 10/14/16 at 21:00 Acetaminophen/ Hydrocodone Bitart ([place] (5/325)) 1 tab Q6H PRN PO pain Last administered on 10/17/16 20:52; Admin Dose 1 TAB; Start 10/14/16 at 17:00 Furosemide 40 mg 40 mg DAILY IV Last administered on 10/17/16 08:55; Admin Dose 40 MG; Start 10/15/16 at 09:00 Ceftriaxone Sodium (Rocephin) 50 ml @ 100 mls/hr Q24H IVPB Last administered on 10/18/16 17:39; Admin Dose 100 MLS/HR; Start 10/14/16 at 18:00 Metoprolol Tartrate (Lopressor) 75 mg BID PO Last administered on 10/18/16 20: 52; Admin Dose 75 MG; Start 10/15/16 at 21:00 Apixaban (Eliquis) 5 mg BID PO Last administered on 10/18/16 21:12; Admin Dose 5 MG; Start 10/15/16 at 21:00 Aspirin (Aspirin) 81 mg DAILY PO Last administered on 10/18/16 12:41; Admin Dose 81 MG; Start 10/16/16 at 09:00 Diltiazem HCl (Cardizem Cd) 180 mg DAILY PO Last administered on 10/17/16 08:53 ; Admin Dose 180 MG; Start 10/16/16 at 09:00 Tiotropium [place] (Spiriva) 1 inh DAILY INH Last administered on 10/18/16 08: 45; Admin Dose 1 INH; Start 10/17/16 at 09:00 Insulin Detemir (Levemir) 50 unit QHS SC Last administered on 10/17/16 20:47; Admin Dose 50 UNIT; Start 10/17/16 at 21:00 Linagliptin (Tradjenta) 5 mg DAILY PO Last administered on 10/18/16 08:14; Admin Dose 5 MG; Start 10/17/16 at 11:00 Fluconazole 100 mg 100 mg DAILY PO Last administered on 10/18/16 14:44; Admin Dose 100 MG; Start 10/18/16 at 14:00 Dextrose/Sodium Chloride (D5-1/2ns) 1,000 ml @ 60 mls/hr [id number] IV Last administered on 10/19/16 00:21; Admin Dose 60 MLS/HR; Start 10/19/16 at 00:00 Insulin Aspart NOVOLOG *MILD* ALGORI... Q4 SC Last administered on 10/19/16 05: 45; Admin Dose 3 UNIT; Start 10/19/16 at 05:00 Vancomycin HCl (Vancocin) 250 ml @ 125 mls/hr Q72H IVPB Last administered on 10:51; Admin Dose 125 MLS/HR; Start 10/19/16 at 08:00 TODD RAMIRES NP Oct 19, 2016 13:56
[2016-10-19] MEDS ORDERED: HYPOGLYCEMIA PROTOCOL when Glucose is <70 mg/dL or symptomatic <90 mg/dL. XX ONE (14:30)
--- NOTE | 2016-10-19 14:38 | PN ---
Date/Time of Note Date/Time of Note DATE: 10/19/16 TIME: 14:36 Assessment/Plan VTE Prophylaxis VTE Prophylaxis Intervention: other Lines/Catheters IV C[facility]ter Type (from [facility] Peripheral IV Urinary Cath still in place: No Assessment/Plan Chief Complaint/Hosp Course 1. Chronic infected Left thigh wound. * This is a chronic wound the patient has been dealing with for approximately 4 months she had a wound VAC placed approximately 2 weeks ago, none now * Wound cultures still negative so far, status post debridement today * MRI showed no osteo 2. Atrial fibrillation. Patient is currently rate controlled / anticoagulated on Eliquis 3. End-stage renal disease. We will consult nephrology for dialysis as her schedule is Tuesday and Tuesday. Will continue her home medications. 4. Iron deficiency Anemia, likely of chronic disease and end-stage renal disease. . 5. Hypertension. Continue home medications. 6. Diabetes type 2 : uncontrolled 7. Dyslipidemia. Continue statin. 8. Anasarca: Continue supplemental albumin therapy to help with diuresis if okay with nephrology 9. Tobacco use and abuse: 10. Non compliance Plan: * F/u final wound cultures / appreciate ID * Continue CCB and BB and titrate as indicated for rate control * Patient is extremely non compliant with diabetic diet and is constantly snacking. Will increase basal slightly and add tradjenta * D/c ARB for persistent hyperkalemia * Continue IV iron infusion for iron deficiency * Continue Eliquis * Pt. was lectured for greater than 3 minutes on the health risks of continued smoking and the benefits of cessation and this will continue to be reinforced throughout hospitalization. DVT and GI prophylaxis: Eliquis and Protonix Anticipate DC in 1-2 days Problems: Subjective 24 Hr Interval Summary Constitutional: no complaints Exam/Review of Systems Vital Signs Vitals Vital Signs Date Time Temp Pulse Resp B/P Pulse Ox O2 Delivery O2 Flow Rate FiO2 10/19/16 12:16 110 17 92/62 90 Room Air 10/19/16 12:01 2.0 10/19/16 11:47 99.0 Intake and Output 10/18/16 10/18/16 10/19/16 15:00 23:00 07:00 Intake Total 1210 ml 990 ml 270 ml Output Total 3800 ml 200 ml Balance -2590 ml 790 ml 270 ml Exam Constitutional: alert Respiratory: clear to auscultation Cardiovascular: regular rate and rhythm Gastrointestinal: soft, No distended Musculoskeletal: No nl extremities to inspection Results Result Diagram: 10/19/16 0508 10/19/16 0508 Results 24 hrs Laboratory Tests Test 10/18/16 17:37 10/18/16 20:54 10/19/16 05:08 10/19/16 05:38 Bedside Glucose 111 137 241 H White Blood Count 9.1 Red Blood Count 2.77 L Hemoglobin 8.4 L Hematocrit 27.4 L Mean Corpuscular Volume 98.9 Mean Corpuscular Hemoglobin 30.3 Mean Corpuscular Hemoglobin Concent 30.7 L Red Cell Distribution Width 19.3 H Platelet Count 239 Mean Platelet Volume 9.9 Neutrophils % 63.5 Lymphocytes % 13.5 L Monocytes % 15.9 H Eosinophils % 5.1 Basophils % 1.0 Nucleated Red Blood Cells % 0.0 Neutrophils # 5.8 Lymphocytes # 1.2 Monocytes # 1.5 H Eosinophils # 0.5 Basophils # 0.1 Nucleated Red Blood Cells # 0.0 Prothrombin Time 20.2 H Prothrombin Time Ratio 1.6 INR International Normalized Ratio 1.71 Activated Partial Thromboplast Time 47.0 H Sodium Level 140 Potassium Level 5.1 Chloride Level 101 Carbon Dioxide Level 25 Anion Gap 19 H Blood Urea Nitrogen 54 H Creatinine 4.74 H Glucose Level 223 H Calcium Level 9.2 Phosphorus Level 6.4 H Albumin 4.1 Random Vancomycin Level 14.3 Test 10/19/16 08:58 10/19/16 13:51 Bedside Glucose 227 H 174 Medications Medications Current Medications Dextrose (D50w Syringe) ONCE PRN IV POC BLOOD GLUCOSE <250 MG/DL Last administered on 10/13/16 22:54; Admin Dose 50 ML; Start 10/13/16 at 22:30 Lorazepam (Ativan) 0.5 mg Q6H PRN IV ANXIETY Last administered on 10/19/16 00: 40; Admin Dose 0.5 MG; Start 10/13/16 at 23:30 Ondansetron HCl (Zofran Inj) 4 mg Q6H PRN IV NAUSEA AND/OR VOMITING; Start at 23:30 Acetaminophen (Tylenol Tab) 650 mg Q6H PRN PO PAIN LEVEL 1-3 OR FEVER Last administered on 10/14/16 21:47; Admin Dose 650 MG; Start 10/13/16 at 23:30 Oxycodone/ Acetaminophen (Percocet (5/ 325)) 2 tab Q6H PRN PO PAIN LEVEL 7-10 Last administered on 10/18/16 18:52; Admin Dose 2 TAB; Start 10/13/16 at 23:30 Docusate Sodium (Colace) 100 mg Q12H PO Last administered on 10/19/16 00:20; Admin Dose 100 MG; Start 10/13/16 at 23:30 Bisacodyl (Dulcolax) 5 mg DAILY PO Last administered on 10/18/16 08:15; Admin Dose 5 MG; Start 10/14/16 at 09:00 Pantoprazole (Protonix Iv) 40 mg DAILY@06 IV Last administered on 10/19/16 05: 40; Admin Dose 40 MG; Start 10/14/16 at 06:00 Atorvastatin Calcium (Lipitor) 40 mg QHS PO Last administered on 10/18/16 20:51 ; Admin Dose 40 MG; Start 10/14/16 at 21:00 Benzonatate (Tessalon) 100 mg Q6 PO Last administered on 10/19/16 14:05; Admin Dose 100 MG; Start 10/14/16 at 06:00 Cinacalcet (Sensipar) 30 mg DAILY PO Last administered on 10/18/16 08:15; Admin Dose 30 MG; Start 10/14/16 at 09:00 Montelukast Sodium (Singulair) 10 mg QAM PO Last administered on 10/18/16 08:15 ; Admin Dose 10 MG; Start 10/14/16 at 09:00 Pyridoxine HCl (Vitamin B6) 50 mg DAILY PO Last administered on 10/18/16 08:15 ; Admin Dose 50 MG; Start 10/14/16 at 09:00 Zolpidem Tartrate (Ambien) 5 mg QHS PRN PO INSOMNIA Last administered on 01:36; Admin Dose 5 MG; Start 10/14/16 at 00:30 Salmeterol Xinafoate/ Fluticasone (Advair 250/50 Diskus) 1 inh BID INH Last administered on 10/16/16 20:19; Admin Dose 1 INH; Start 10/14/16 at 09:00 Miscellaneous Information 1 ea NOTE XX ; Start 10/14/16 at 01:00 Glucose (Glutose) 15 gm Q15M PRN PO DECREASED GLUCOSE; Start 10/14/16 at 01:00 Glucose (Glutose) 22.5 gm Q15M PRN PO DECREASED GLUCOSE; Start 10/14/16 at 01:00 Dextrose (D50w Syringe) 25 ml Q15M PRN IV DECREASED GLUCOSE; Start 10/14/16 at 01:00 Dextrose (D50w Syringe) 50 ml Q15M PRN IV DECREASED GLUCOSE; Start 10/14/16 at 01:00 Glucagon (Glucagen) 1 mg Q15M PRN IM DECREASED GLUCOSE; Start 10/14/16 at 01:00 Glucose (Glutose) 15 gm Q15M PRN BUCCAL DECREASED GLUCOSE; Start 10/14/16 at 01: 00 Collagenase (Santyl) 1 applic DAILY TOP Last administered on 10/18/16 08:16; Admin Dose 1 APPLIC; Start 10/14/16 at 16:00 Nicotine (Nicoderm 21 Mg/ 24hr) 1 patch DAILY TRANSDERM Last administered on 08:16; Admin Dose 1 PATCH; Start 10/14/16 at 17:00 Lactobacillus Acidophilus/ Rhamnosus (Culturelle) 1 cap BID PO Last administered on 10/18/16 20:52; Admin Dose 1 CAP; Start 10/14/16 at 21:00 Acetaminophen/ Hydrocodone Bitart ([place] (5/325)) 1 tab Q6H PRN PO pain Last administered on 10/17/16 20:52; Admin Dose 1 TAB; Start 10/14/16 at 17:00 Furosemide 40 mg 40 mg DAILY IV Last administered on 10/17/16 08:55; Admin Dose 40 MG; Start 10/15/16 at 09:00 Ceftriaxone Sodium (Rocephin) 50 ml @ 100 mls/hr Q24H IVPB Last administered on 10/18/16 17:39; Admin Dose 100 MLS/HR; Start 10/14/16 at 18:00 Metoprolol Tartrate (Lopressor) 75 mg BID PO Last administered on 10/18/16 20: 52; Admin Dose 75 MG; Start 10/15/16 at 21:00 Apixaban (Eliquis) 5 mg BID PO Last administered on 10/18/16 21:12; Admin Dose 5 MG; Start 10/15/16 at 21:00 Aspirin (Aspirin) 81 mg DAILY PO Last administered on 10/18/16 12:41; Admin Dose 81 MG; Start 10/16/16 at 09:00 Diltiazem HCl (Cardizem Cd) 180 mg DAILY PO Last administered on 10/17/16 08:53 ; Admin Dose 180 MG; Start 10/16/16 at 09:00 Tiotropium [place] (Spiriva) 1 inh DAILY INH Last administered on 10/18/16 08: 45; Admin Dose 1 INH; Start 10/17/16 at 09:00 Insulin Detemir (Levemir) 50 unit QHS SC Last administered on 10/17/16 20:47; Admin Dose 50 UNIT; Start 10/17/16 at 21:00 Linagliptin (Tradjenta) 5 mg DAILY PO Last administered on 10/18/16 08:14; Admin Dose 5 MG; Start 10/17/16 at 11:00 Fluconazole 100 mg 100 mg DAILY PO Last administered on 10/18/16 14:44; Admin Dose 100 MG; Start 10/18/16 at 14:00 Vancomycin HCl (Vancocin) 250 ml @ 125 mls/hr Q72H IVPB Last administered on 10:51; Admin Dose 125 MLS/HR; Start 10/19/16 at 08:00 Diagnostic Test (Pha) (Accu-Chek) 1 ea 02 XX ; Start 10/20/16 at 02:00 MICHAEL COULTER Oct 19, 2016 14:38
[2016-10-19] MEDS: OXYCODONE/ACETAMINOPHEN (5/325) TAB PO PRN ×2 (15:23→23:40)
[2016-10-19] MEDS ORDERED: INSULIN ASPART [NOVOLOG] 3 ML PEN SC SCH ×2 (17:45→18:00)
[2016-10-19] MEDS: CEFTRIAXONE 1 GM/NS 50 ML IVPB SCH (19:02)
[2016-10-19] MEDS: ATORVASTATIN 40 MG TAB PO SCH (20:52)
[2016-10-19] MEDS: INSULIN DETEMIR [LEVEMIR] 3ML CART SC SCH (20:59)
[2016-10-20] VITALS (8 sets, daily range): BP systolic 103–150; BP diastolic 64–88; PULSE 120–130; RESP 18
[2016-10-20] MEDS: ZOLPIDEM 5 MG TAB PO PRN (00:34)
[2016-10-20] MEDS ORDERED: ACCU-CHEK XX SCH (02:00)
[2016-10-20] MEDS: PANTOPRAZOLE 40 MG INJ IV SCH (06:00)
[2016-10-20] MEDS: BENZONATATE 100 MG CAP PO SCH ×2 (06:32→12:20)
[2016-10-20] MEDS: OXYCODONE/ACETAMINOPHEN (5/325) TAB PO PRN ×2 (06:34→12:27)
[2016-10-20] MEDS: INSULIN ASPART [NOVOLOG] 3 ML PEN SC SCH ×4 (08:15→12:17)
[2016-10-20] MEDS: NICOTINE (21 MG/24 HR) PATCH TRANSDERM SCH (08:32)
[2016-10-20] MEDS: DILTIAZEM (CD) 180 MG CAP PO SCH (08:35)
[2016-10-20] MEDS: LACTOBACILLUS RHAMNOSUS CAP PO SCH (08:36)
[2016-10-20] MEDS: MONTELUKAST 10 MG TAB PO SCH (08:36)
[2016-10-20] MEDS: CINACALCET 30 MG TAB PO SCH (08:36)
[2016-10-20] MEDS: APIXABAN 5 MG TABLET PO SCH (08:36)
[2016-10-20] MEDS: METOPROLOL 25 MG TAB PO SCH (08:36)
[2016-10-20] MEDS: BISACODYL (EC) 5 MG TAB PO SCH (08:37)
[2016-10-20] MEDS: METOCLOPRAMIDE 5 MG TAB PO SCH ×2 (08:37→12:20)
[2016-10-20] MEDS: LINAGLIPTIN 5 MG TABLET PO SCH (08:37)
[2016-10-20] MEDS: FLUCONAZOLE 100 MG TAB PO SCH (08:37)
[2016-10-20] MEDS: CALCIUM ACETATE 667 MG CAP PO SCH ×2 (08:37→12:20)
[2016-10-20] MEDS: ASPIRIN 81 MG TAB PO SCH (08:38)
[2016-10-20] MEDS: PYRIDOXINE 50 MG TAB PO SCH (08:38)
[2016-10-20] MEDS: COLLAGENASE 30 GM TUBE TOP SCH (08:38)
[2016-10-20] MEDS: SALMETEROL/FLUTICASONE 250/50 INHA INH SCH (08:39)
[2016-10-20 10:21] LABS: ADD SCAN DIFF NO
[2016-10-20 10:29] LABS: BASOPHIL # 0.1 10^3/ul (0.0-0.1); BASOPHILS % 0.7 % (0.0-2.0); EOSINOPHILS # 0.6 10^3/ul (0.0-0.5); EOSINOPHILS % 6.6 % (0.0-7.0); HEMATOCRIT 25.5 % (37.0-47.0); LYMPHOCYTES # 1.2 10^3/ul (0.8-2.9); LYMPHOCYTES % 14.4 % (15.0-51.0); MEAN CORPUSCULAR HGB CONC 31.4 g/dl (32.0-37.0); MEAN CORPUSCULAR VOLUME 98.8 fl (82.0-101.0); MEAN PLATELET VOLUME 9.5 fl (7.4-10.4); MONOCYTE # 1.4 10^3/ul (0.3-0.9); NEUTROPHIL # 5.1 10^3/ul (1.6-7.5); NEUTROPHILS % 60.7 % (39.0-77.0); PLATELET COUNT 237 10^3/UL (140-415); RED BLOOD COUNT 2.58 10^6/ul (4.20-5.40); RED CELL DISTRIBUTION WIDTH 18.9 % (11.5-14.5); WHITE BLOOD COUNT 8.4 10^3/ul (4.8-10.8)
[2016-10-20] MEDS: TIOTROPIUM 18 MCG CAPSULE INHA DEV INH SCH (10:32)
[2016-10-20 10:43] LABS: ALBUMIN 4.2 g/dl (3.3-4.9); CALCIUM 9.4 mg/dl (8.4-10.2); CREATININE 6.05 mg/dl (0.44-1.00); PHOSPHORUS 7.6 mg/dl (2.5-4.9); POTASSIUM 5.6 mmol/L (3.5-5.1)
--- NOTE | 2016-10-20 11:37 | CONS ---
Date/Time of Note Date/Time of Note DATE: 10/20/16 TIME: 11:36 Assessment/Plan Assessment/Plan Chief Complaint/Hosp Course - [place] [facility] [place] - DIABETES - CHRONIC ANEMIA - HYPERTENSION - HYPERPHOSPHATEMIA - LOWER EXTREMITY CELLULITIS ( S/P Debridement & VAC ) PLAN: Bedside dialysis to correct potassium Will plan for UF ~ 4 Kg ( She has gained a lot of weight ) Continue with Abx Surgical evaluation Continue with all Meds Problems: Consultation Date/Type/Reason Admit Date/Time October 13, 2016 at 22:11 Initial Consult Date 10/14/16 Type of Consultation: NEPHROLOGY 24 HR Interval Summary Constitutional: improved, no complaints Exam/Review of Systems Vital Signs Vitals Vital Signs Date Time Temp Pulse Resp B/P Pulse Ox O2 Delivery O2 Flow Rate FiO2 10/20/16 07:25 98.1 117 18 126/65 92 10/19/16 23:00 Room Air 10/19/16 12:01 2.0 Intake and Output 10/19/16 10/19/16 10/20/16 15:00 23:00 07:00 Intake Total 1070 ml 420 ml Output Total 5 ml Balance 1065 ml 420 ml Exam Constitutional: alert, oriented Respiratory: crackles/rales Cardiovascular: edema, systolic murmur Gastrointestinal: soft Results Result Diagram: 10/20/16 0953 10/20/16 0953 Results 24 hrs Laboratory Tests Test 10/19/16 13:51 10/19/16 17:28 10/19/16 20:49 10/20/16 08:13 Bedside Glucose 174 222 H 173 118 Test 10/20/16 09:53 White Blood Count 8.4 Red Blood Count 2.58 L Hemoglobin 8.0 L Hematocrit 25.5 L Mean Corpuscular Volume 98.8 Mean Corpuscular Hemoglobin 31.0 Mean Corpuscular Hemoglobin Concent 31.4 L Red Cell Distribution Width 18.9 H Platelet Count 237 Mean Platelet Volume 9.5 Neutrophils % 60.7 Lymphocytes % 14.4 L Monocytes % 17.0 H Eosinophils % 6.6 Basophils % 0.7 Nucleated Red Blood Cells % 0.0 Neutrophils # 5.1 Lymphocytes # 1.2 Monocytes # 1.4 H Eosinophils # 0.6 H Basophils # 0.1 Nucleated Red Blood Cells # 0.0 Sodium Level 138 Potassium Level 5.6 H Chloride Level 100 Carbon Dioxide Level 25 Anion Gap 19 H Blood Urea Nitrogen 67 H Creatinine 6.05 H Glucose Level 136 # Calcium Level 9.4 Phosphorus Level 7.6 H Albumin 4.2 Medications Medications Current Medications Dextrose (D50w Syringe) ONCE PRN IV POC BLOOD GLUCOSE <250 MG/DL Last administered on 10/13/16 22:54; Admin Dose 50 ML; Start 10/13/16 at 22:30 Lorazepam (Ativan) 0.5 mg Q6H PRN IV ANXIETY Last administered on 10/19/16 00: 40; Admin Dose 0.5 MG; Start 10/13/16 at 23:30 Ondansetron HCl (Zofran Inj) 4 mg Q6H PRN IV NAUSEA AND/OR VOMITING; Start at 23:30 Acetaminophen (Tylenol Tab) 650 mg Q6H PRN PO PAIN LEVEL 1-3 OR FEVER Last administered on 10/14/16 21:47; Admin Dose 650 MG; Start 10/13/16 at 23:30 Oxycodone/ Acetaminophen (Percocet (5/ 325)) 2 tab Q6H PRN PO PAIN LEVEL 7-10 Last administered on 10/20/16 06:34; Admin Dose 2 TAB; Start 10/13/16 at 23:30 Docusate Sodium (Colace) 100 mg Q12H PO Last administered on 10/19/16 23:45; Admin Dose 100 MG; Start 10/13/16 at 23:30 Bisacodyl (Dulcolax) 5 mg DAILY PO Last administered on 10/20/16 08:37; Admin Dose 5 MG; Start 10/14/16 at 09:00 Atorvastatin Calcium (Lipitor) 40 mg QHS PO Last administered on 10/19/16 20:52 ; Admin Dose 40 MG; Start 10/14/16 at 21:00 Benzonatate (Tessalon) 100 mg Q6 PO Last administered on 10/20/16 06:32; Admin Dose 100 MG; Start 10/14/16 at 06:00 Cinacalcet (Sensipar) 30 mg DAILY PO Last administered on 10/20/16 08:36; Admin Dose 30 MG; Start 10/14/16 at 09:00 Montelukast Sodium (Singulair) 10 mg QAM PO Last administered on 10/20/16 08:36 ; Admin Dose 10 MG; Start 10/14/16 at 09:00 Zolpidem Tartrate (Ambien) 5 mg QHS PRN PO INSOMNIA Last administered on 00:34; Admin Dose 5 MG; Start 10/14/16 at 00:30 Salmeterol Xinafoate/ Fluticasone (Advair 250/50 Diskus) 1 inh BID INH Last administered on 10/16/16 20:19; Admin Dose 1 INH; Start 10/14/16 at 09:00 Miscellaneous Information 1 ea NOTE XX ; Start 10/14/16 at 01:00 Glucose (Glutose) 15 gm Q15M PRN PO DECREASED GLUCOSE; Start 10/14/16 at 01:00 Glucose (Glutose) 22.5 gm Q15M PRN PO DECREASED GLUCOSE; Start 10/14/16 at 01:00 Dextrose (D50w Syringe) 25 ml Q15M PRN IV DECREASED GLUCOSE; Start 10/14/16 at 01:00 Dextrose (D50w Syringe) 50 ml Q15M PRN IV DECREASED GLUCOSE; Start 10/14/16 at 01:00 Glucagon (Glucagen) 1 mg Q15M PRN IM DECREASED GLUCOSE; Start 10/14/16 at 01:00 Glucose (Glutose) 15 gm Q15M PRN BUCCAL DECREASED GLUCOSE; Start 10/14/16 at 01: 00 Collagenase (Santyl) 1 applic DAILY TOP Last administered on 10/18/16 08:16; Admin Dose 1 APPLIC; Start 10/14/16 at 16:00 Nicotine (Nicoderm 21 Mg/ 24hr) 1 patch DAILY TRANSDERM Last administered on 08:32; Admin Dose 1 PATCH; Start 10/14/16 at 17:00 Lactobacillus Acidophilus/ Rhamnosus (Culturelle) 1 cap BID PO Last administered on 10/20/16 08:36; Admin Dose 1 CAP; Start 10/14/16 at 21:00 Acetaminophen/ Hydrocodone Bitart 1 tab 1 tab Q6H PRN PO pain Last administered on 10/17/16 20:52; Admin Dose 1 TAB; Start 10/14/16 at 17:00 Ceftriaxone Sodium (Rocephin) 50 ml @ 100 mls/hr Q24H IVPB Last administered on 10/19/16 19:02; Admin Dose 100 MLS/HR; Start 10/14/16 at 18:00 Metoprolol Tartrate (Lopressor) 75 mg BID PO Last administered on 10/20/16 08: 36; Admin Dose 75 MG; Start 10/15/16 at 21:00 Apixaban (Eliquis) 5 mg BID PO Last administered on 10/20/16 08:36; Admin Dose 5 MG; Start 10/15/16 at 21:00 Aspirin (Aspirin) 81 mg DAILY PO Last administered on 10/20/16 08:38; Admin Dose 81 MG; Start 10/16/16 at 09:00 Diltiazem HCl (Cardizem Cd) 180 mg DAILY PO Last administered on 10/20/16 08:35 ; Admin Dose 180 MG; Start 10/16/16 at 09:00 Tiotropium [place] (Spiriva) 1 inh DAILY INH Last administered on 10/20/16 10: 32; Admin Dose 1 INH; Start 10/17/16 at 09:00 Insulin Detemir (Levemir) 50 unit QHS SC Last administered on 10/19/16 20:59; Admin Dose 50 UNIT; Start 10/17/16 at 21:00 Linagliptin (Tradjenta) 5 mg DAILY PO Last administered on 10/20/16 08:37; Admin Dose 5 MG; Start 10/17/16 at 11:00 Fluconazole 100 mg 100 mg DAILY PO Last administered on 10/20/16 08:37; Admin Dose 100 MG; Start 10/18/16 at 14:00 Vancomycin HCl (Vancocin) 250 ml @ 125 mls/hr Q72H IVPB Last administered on 10:51; Admin Dose 125 MLS/HR; Start 10/19/16 at 08:00 Diagnostic Test (Pha) (Accu-Chek) 1 ea XX ; Start 10/20/16 at 02:00 BECKY GAMBLE MD Oct 20, 2016 11:37
[2016-10-20] MEDS: DOCUSATE SODIUM 100 MG CAP PO SCH (12:20)
--- NOTE | 2016-10-20 12:58 | CONS ---
Date/Time of Note Date/Time of Note DATE: 10/20/16 TIME: 12:57 Assessment/Plan Assessment/Plan Chief Complaint/Hosp Course SUBJECTIVE: No events, no fevers, nad ANTIMICROBIALS: 1. IV vancomycin. 2. Rocephin. 3. Diflucan Micro: Wound cx + Enterococcus/yeast PHYSICAL EXAMINATION: GENERAL: Morbidly obese, well-developed, elderly woman who is awake, in no distress. HEENT: Head atraumatic, normocephalic. Sclerae anicteric. Buccal mucosa dry. NECK: Supple. CHEST: Rise symmetrical. Breath sounds clear. HEART: S1, S2. ABDOMEN: Soft, bowel sounds present. EXTREMITIES: Without cyanosis. Left upper hip wound with some purulent drainage. ASSESSMENT: 1. Bilateral lower extremities chronic venous stasis with left hip wound, s/p debridement and wound vac application 10/19/16. 2. End-stage renal disease, on hemodialysis. 3. Left upper extremity arteriovenous fistula. 4. Obesity. 5. Atrial fibrillation. PLAN: The patient remains stable. Continue abx, f/u final cx, vascular team on case DW staff Problems: Consultation Date/Type/Reason Admit Date/Time October 13, 2016 at 22:11 Initial Consult Date 10/14/16 Type of Consultation: ID Exam/Review of Systems Vital Signs Vitals Vital Signs Date Time Temp Pulse Resp B/P Pulse Ox O2 Delivery O2 Flow Rate FiO2 10/20/16 12:35 122 10/20/16 11:05 18 10/20/16 07:25 98.1 126/65 92 10/19/16 23:00 Room Air 10/19/16 12:01 2.0 Intake and Output 10/19/16 10/19/16 10/20/16 15:00 23:00 07:00 Intake Total 1070 ml 420 ml Output Total 5 ml Balance 1065 ml 420 ml Results Result Diagram: 10/20/16 0953 10/20/16 0953 Results 24 hrs Laboratory Tests Test 10/19/16 13:51 10/19/16 17:28 10/19/16 20:49 10/20/16 08:13 Bedside Glucose 174 222 H 173 118 Test 10/20/16 09:53 10/20/16 12:05 White Blood Count 8.4 Red Blood Count 2.58 L Hemoglobin 8.0 L Hematocrit 25.5 L Mean Corpuscular Volume 98.8 Mean Corpuscular Hemoglobin 31.0 Mean Corpuscular Hemoglobin Concent 31.4 L Red Cell Distribution Width 18.9 H Platelet Count 237 Mean Platelet Volume 9.5 Neutrophils % 60.7 Lymphocytes % 14.4 L Monocytes % 17.0 H Eosinophils % 6.6 Basophils % 0.7 Nucleated Red Blood Cells % 0.0 Neutrophils # 5.1 Lymphocytes # 1.2 Monocytes # 1.4 H Eosinophils # 0.6 H Basophils # 0.1 Nucleated Red Blood Cells # 0.0 Sodium Level 138 Potassium Level 5.6 H Chloride Level 100 Carbon Dioxide Level 25 Anion Gap 19 H Blood Urea Nitrogen 67 H Creatinine 6.05 H Glucose Level 136 # Calcium Level 9.4 Phosphorus Level 7.6 H Albumin 4.2 Bedside Glucose 141 Medications Medications Current Medications Dextrose (D50w Syringe) ONCE PRN IV POC BLOOD GLUCOSE <250 MG/DL Last administered on 10/13/16 22:54; Admin Dose 50 ML; Start 10/13/16 at 22:30 Lorazepam (Ativan) 0.5 mg Q6H PRN IV ANXIETY Last administered on 10/19/16 00: 40; Admin Dose 0.5 MG; Start 10/13/16 at 23:30 Ondansetron HCl (Zofran Inj) 4 mg Q6H PRN IV NAUSEA AND/OR VOMITING; Start at 23:30 Acetaminophen (Tylenol Tab) 650 mg Q6H PRN PO PAIN LEVEL 1-3 OR FEVER Last administered on 10/14/16 21:47; Admin Dose 650 MG; Start 10/13/16 at 23:30 Oxycodone/ Acetaminophen (Percocet (5/ 325)) 2 tab Q6H PRN PO PAIN LEVEL 7-10 Last administered on 10/20/16 12:27; Admin Dose 2 TAB; Start 10/13/16 at 23:30 Docusate Sodium (Colace) 100 mg Q12H PO Last administered on 10/20/16 12:20; Admin Dose 100 MG; Start 10/13/16 at 23:30 Bisacodyl (Dulcolax) 5 mg DAILY PO Last administered on 10/20/16 08:37; Admin Dose 5 MG; Start 10/14/16 at 09:00 Atorvastatin Calcium (Lipitor) 40 mg QHS PO Last administered on 10/19/16 20:52 ; Admin Dose 40 MG; Start 10/14/16 at 21:00 Benzonatate (Tessalon) 100 mg Q6 PO Last administered on 10/20/16 12:20; Admin Dose 100 MG; Start 10/14/16 at 06:00 Cinacalcet (Sensipar) 30 mg DAILY PO Last administered on 10/20/16 08:36; Admin Dose 30 MG; Start 10/14/16 at 09:00 Montelukast Sodium (Singulair) 10 mg QAM PO Last administered on 10/20/16 08:36 ; Admin Dose 10 MG; Start 10/14/16 at 09:00 Zolpidem Tartrate (Ambien) 5 mg QHS PRN PO INSOMNIA Last administered on 00:34; Admin Dose 5 MG; Start 10/14/16 at 00:30 Salmeterol Xinafoate/ Fluticasone (Advair 250/50 Diskus) 1 inh BID INH Last administered on 10/16/16 20:19; Admin Dose 1 INH; Start 10/14/16 at 09:00 Miscellaneous Information 1 ea NOTE XX ; Start 10/14/16 at 01:00 Glucose (Glutose) 15 gm Q15M PRN PO DECREASED GLUCOSE; Start 10/14/16 at 01:00 Glucose (Glutose) 22.5 gm Q15M PRN PO DECREASED GLUCOSE; Start 10/14/16 at 01:00 Dextrose (D50w Syringe) 25 ml Q15M PRN IV DECREASED GLUCOSE; Start 10/14/16 at 01:00 Dextrose (D50w Syringe) 50 ml Q15M PRN IV DECREASED GLUCOSE; Start 10/14/16 at 01:00 Glucagon (Glucagen) 1 mg Q15M PRN IM DECREASED GLUCOSE; Start 10/14/16 at 01:00 Glucose (Glutose) 15 gm Q15M PRN BUCCAL DECREASED GLUCOSE; Start 10/14/16 at 01: 00 Collagenase (Santyl) 1 applic DAILY TOP Last administered on 10/18/16 08:16; Admin Dose 1 APPLIC; Start 10/14/16 at 16:00 Nicotine (Nicoderm 21 Mg/ 24hr) 1 patch DAILY TRANSDERM Last administered on 08:32; Admin Dose 1 PATCH; Start 10/14/16 at 17:00 Lactobacillus Acidophilus/ Rhamnosus (Culturelle) 1 cap BID PO Last administered on 10/20/16 08:36; Admin Dose 1 CAP; Start 10/14/16 at 21:00 Acetaminophen/ Hydrocodone Bitart 1 tab 1 tab Q6H PRN PO pain Last administered on 10/17/16 20:52; Admin Dose 1 TAB; Start 10/14/16 at 17:00 Ceftriaxone Sodium (Rocephin) 50 ml @ 100 mls/hr Q24H IVPB Last administered on 10/19/16 19:02; Admin Dose 100 MLS/HR; Start 10/14/16 at 18:00 Metoprolol Tartrate (Lopressor) 75 mg BID PO Last administered on 10/20/16 08: 36; Admin Dose 75 MG; Start 10/15/16 at 21:00 Apixaban (Eliquis) 5 mg BID PO Last administered on 10/20/16 08:36; Admin Dose 5 MG; Start 10/15/16 at 21:00 Aspirin (Aspirin) 81 mg DAILY PO Last administered on 10/20/16 08:38; Admin Dose 81 MG; Start 10/16/16 at 09:00 Diltiazem HCl (Cardizem Cd) 180 mg DAILY PO Last administered on 10/20/16 08:35 ; Admin Dose 180 MG; Start 10/16/16 at 09:00 Tiotropium [place] (Spiriva) 1 inh DAILY INH Last administered on 10/20/16 10: 32; Admin Dose 1 INH; Start 10/17/16 at 09:00 Insulin Detemir (Levemir) 50 unit QHS SC Last administered on 10/19/16 20:59; Admin Dose 50 UNIT; Start 10/17/16 at 21:00 Linagliptin (Tradjenta) 5 mg DAILY PO Last administered on 10/20/16 08:37; Admin Dose 5 MG; Start 10/17/16 at 11:00 Fluconazole 100 mg 100 mg DAILY PO Last administered on 10/20/16 08:37; Admin Dose 100 MG; Start 10/18/16 at 14:00 Vancomycin HCl (Vancocin) 250 ml @ 125 mls/hr Q72H IVPB Last administered on 6 /6/17at 10:51; Admin Dose 125 MLS/HR; Start 10/19/16 at 08:00 Diagnostic Test (Pha) (Accu-Chek) 1 XX ; Start 10/20/16 at 02:00 TODD RAMIRES NP Oct 20, 2016 12:58
--- NOTE | 2016-10-20 14:49 | PDOCDIS ---
Discharge Instructions CONDITION Patient Condition: Good HOME CARE INSTRUCTIONS: Special Diet: DIABETIC/RENAL ACTIVITY: Activity Restrictions: No Restrictions FOLLOW UP/APPOINTMENTS Appointments F/U WITH YOUR PCP AND [facility] MICHAEL COULTER Oct 20, 2016 14:49
[2016-10-20] MEDS ORDERED: AL HYDROX/MG HYDROX/SIMETH 30 ML CUP PO ONE (15:00)
--- NOTE | 2016-10-21 03:05 | DS ---
DATE OF ADMISSION: 10/13/2016 DATE OF DISCHARGE: 10/20/2016 DISCHARGE DIAGNOSES: 1. Chronic infected left thigh wound status post debridement as well as antibiotics. Continue woun d VAC. 2. Atrial fibrillation. Continue Eliquis. 3. End-stage renal disease. Continue dialysis. 4. Anemia secondary to end-stage renal disease, chronic disease, stable. 5. Hypertension. Continue home medications. 6. Diabetes type 2. The patient is poorly compliant. Continue home medications. 7. Dyslipidemia. Continue statin. 8. Tobacco abuse. The patient is noncompliant. HOSPITAL COURSE: The patient is a 61-year-old female with a history of end-stage renal disease, em betes, hypertension, as well as peripheral vascular disease. The patient has left thigh chronic wou nd that she has been dealing with for 4 months. She did have a wound VAC placement. The patient wa s seen by vascular surgery. She did undergo a debridement during this hospitalization. She was see n by ID and did receive antibiotics. She did continue her dialysis in house. Further workup per va scular surgery was felt to be able to be accomplished outpatient. The patient already had home heal th set up as well as wound VAC. The patient was felt to be stable for discharge. Of note, she does have a history of noncompliance, including with her diet. She was advised the importance of compli ance. On day of discharge, the patient's vitals, labs, physical exam were stable. She had no acute compla ints. Questions were answered. CONDITION ON DISCHARGE: Stable. DISPOSITION: To home with home health. MEDICATIONS: The patient is to continue her usual home medications. FOLLOWUP: The patient is to follow up with her PCP in 1 to 2 weeks as well as with home health [facility] dialysis center. The patient is also to follow up with Dr. Stephen Fuentes of [facility] . Greater than 30 minutes was spent coordinating discharge of patient. Dictated By: MICHAEL COULTER MD BS/NTS Conf#: [id number] DID#: [id number]
== END 2016-10-20 16:05 | disposition home health service (06) | DRG 264 ==
LOC: E/R 18:35 → MS2 22:11
PROVIDERS: ADMIT Family Medicine; ATTEND Family Medicine
PROC: 5A1D60Z (ICD-10-PCS; 2016-10-16)
PROC: 0JBM0ZZ Excision of Left Upper Leg Subcutaneous Tissue and Fascia, Open Approach (ICD-10-PCS; principal; 2016-10-19 14:30)
DX: E11.52 Type 2 diabetes mellitus with diabetic peripheral angiopathy with gangrene (principal); I13.2 Hypertensive heart and chronic kidney disease with heart failure and with stage 5 chronic kidney disease, or end stage renal disease; N18.6 End stage renal disease; E11.22 Type 2 diabetes mellitus with diabetic chronic kidney disease; L97.123 Non-pressure chronic ulcer of left thigh with necrosis of muscle; I70.241 Atherosclerosis of native arteries of left leg with ulceration of thigh; F17.210 Nicotine dependence, cigarettes, uncomplicated; D50.9 Iron deficiency anemia, unspecified; L97.919 Non-pressure chronic ulcer of unspecified part of right lower leg with unspecified severity; I50.9 Heart failure, unspecified; I48.2 Chronic atrial fibrillation; J44.9 Chronic obstructive pulmonary disease, unspecified; D63.1 Anemia in chronic kidney disease; E78.5 Hyperlipidemia, unspecified; I87.8 Other specified disorders of veins; Z68.39 Body mass index [BMI] 39.0-39.9, adult; I70.239 Atherosclerosis of native arteries of right leg with ulceration of unspecified site; E83.39 Other disorders of phosphorus metabolism; E66.01 Morbid (severe) obesity due to excess calories; I87.2 Venous insufficiency (chronic) (peripheral); Z87.81 Personal history of (healed) traumatic fracture; Z88.2 Allergy status to sulfonamides; Z79.01 Long term (current) use of anticoagulants; Z99.2 Dependence on renal dialysis; Z79.4 Long term (current) use of insulin; Z79.82 Long term (current) use of aspirin; Z88.0 Allergy status to penicillin
CPT/HCPCS: 36415; 36430; 71010; 73718; 80048; 80053; 80061; 80069; 80202; 82962; 83036; 83540; 83735; 84443; 85025; 85610; 85730; 86850; 86900; 86901; 86920; 87070; 87075; 87081; 87102; 87116; 88304; 90935; 93005; 94664; 96374; 96375; C9113; J0610; J0696; J1815; J1940; J2060; J2250; J2270; J2916; J3010; J3370; J7040; J7042; P9016; P9047

== ENCOUNTER 2016-10-23 13:43 | Inpatient (IN) | payer OTHER ==
[~2016-10-23] VITALS: Ht 162.6 cm; Wt 103.8 kg
[~2016-10-23 13:43] MED LIST changes: -DOXY-220 PO
--- NOTE | 2016-10-23 15:24 | ERD ---
ER Documentation Chief Complaint Date/Time DATE: 10/23/16 TIME: 15:19 Chief Complaint nausea/vomiting ,missed her dialysis today , neck , back pain s/p fall HPI Patient is a 61-year-old female with diabetes and end-stage renal disease who presents to the ER after she was told that she could not come to outpatient dialysis due to intermittent vomiting for the last 4 days. The patient reports 1-2 episodes per day of vomiting for the last 4 days. She denies abdominal pain. She denies fever. She reports constipation, but had a firm stool last night. She reports hemorrhoidal bleeding with stools. The patient also reports having increased leg edema, chronic wounds on her legs with mild erythema, and a new scratch to her leg from her cat, which has had a drainage of serous fluid. She denies significant shortness of breath, denies chest pain. She incidentally reports having a ground-level fall 2 days ago with trauma to her low back. She denies hitting her head, but states that her neck is hurt since that time. She denies any urinary incontinence, leg numbness. The patient has chronic generalized leg weakness and difficulty ambulating, but denies any change in these symptoms. ROS All systems reviewed and are negative except as per history of present illness. Medications Home Meds Reported Medications Tiotropium [place]* (Spiriva*) 18 Mcg Cap.w.dev, 1 CAP INHALATION DAILY, #30 CAP 09/09/16 Insulin Detemir (Levemir Flextouch) 100 Unit/1 Ml Insuln.pen, 90 UNIT SQ 09/09/16 Montelukast Sodium* (Montelukast Sodium*) 10 Mg Tablet, 10 MG PO QAM, #30 TAB 09/09/16 Apixaban* (Eliquis*) 5 Mg Tablet, 5 MG PO BID, TAB 09/09/16 Calcium Acetate* (Phoslo*) 667 Mg Tablet, 667 MG PO WITH MEALS, TAB TAKE 4 TAB 09/09/16 Pyridoxine Hcl* (Pyridoxine Hcl*) 50 Mg Tablet, 50 MG PO DAILY, TAB 09/09/16 Zolpidem Tartrate* (Zolpidem Tartrate*) 5 Mg Tablet, 5 MG PO QHS Y for INSOMNIA , #30 TAB 09/09/16 Oxycodone HCl/Acetaminophen (Percocet 10-325 mg Tablet) 1 Each Tablet, 1 EACH PO Q6 Y for PRN, TAB 09/09/16 Budesonide-Formoterol Fumarate* (Symbicort*) 160-4.5 Hfa.aer.ad, 2 PUFF INHALATION BID, #1 EACH 12/19/15 Furosemide* (Furosemide*) 80 Mg Tablet, 80 MG PO DAILY, #30 TAB 12/19/15 Benzonatate* (Tessalon Perle*) 100 Mg Capsule, 100 MG PO Q6, CAP 12/19/15 Atorvastatin* (Atorvastatin*) 40 Mg Tablet, 40 MG PO QHS, #30 TAB 12/19/15 Amlodipine Besylate* (Amlodipine Besylate*) 5 Mg Tablet, 5 MG PO DAILY, #30 TAB 12/19/15 Losartan Potassium* (Losartan Potassium*) 50 Mg Tablet, 50 MG PO BID, TAB 12/19/15 Cinacalcet* (Sensipar*) 30 Mg Tab, 30 MG PO, TAB 12/19/15 Diltiazem Hcl* (Cardizem SR*) 60 Mg Capsr, 60 MG PO Q12, #60 CAP 12/19/15 Metoprolol Succinate* (Toprol XL*) 50 Mg Tab.er.24h, 50 MG PO DAILY, #30 TAB 12/19/15 Metoclopramide* (Reglan*) 5 Mg Tablet, 5 MG PO AC MEALS, TAB 12/19/15 Aspirin* (Aspirin* Chew) 81 Mg Tab.chew, 81 MG PO DAILY, TAB.CHEW 12/19/15 Albuterol Sulfate* (Proair HFA*) 8.5 Gm Hfa.aer.ad, 2 PUFF INH Q4H Y for WHEEZING AND SOB, INH 06/12/14 Omeprazole* (Prilosec*) 40 Mg Capsule.dr, 40 MG PO DAILY 08/31/12 Allergies Allergies: Coded Allergies: Penicillins (Unverified Allergy, Severe, ALL OVER BODY RASH, 10/13/16) ciprofloxacin (Unverified Allergy, Severe, TENDONITIS, 10/13/16) PMhx/Soc Past medical history: End-stage renal disease, diabetes mellitus, COPD, atrial fibrillation on Eliquis, hypertension, anemia Past surgical history: section, tubal ligation, debridement of infection on leg with wound VAC Social history: Smokes cigarettes, denies alcohol Anesthesia Reaction: No Hx Neurological Disorder: Yes (NEUROPATHY) Hx Respiratory Disorders: Yes (COPD,ASTHMA) Hx Cardiac Disorders: Yes (HTN) Hx Psychiatric Problems: No Hx Miscellaneous Medical Probl: Yes (see EMR, heart failure, chronic wound) Hx Alcohol Use: No Hx Substance Use: No Hx Tobacco Use: No FmHx Family History: coronary disease, No diabetes Physical Exam Vitals Vital Signs Date Time Temp Pulse Resp B/P Pulse Ox O2 Delivery O2 Flow Rate FiO2 10/23/16 18:21 85 18 98/88 98 Room Air 10/23/16 13:45 98.2 112 18 114/69 99 Physical Exam Const: Alert, no acute distress Head: Atraumatic Eyes: Normal Conjunctiva, no pallor, no icterus ENT: Normal External Ears, Nose and Mouth. Mucous membranes tacky. Neck: Mild midline tenderness, no adenopathy. Resp: Clear to auscultation bilaterally, no rales Cardio: Tachycardia, regular rhythm, no murmurs Abd: Soft, non tender, non distended. Skin: No petechiae or rashes. Scab to right lateral thigh with mild surrounding erythema, no appreciable warmth. Punctate wound to right bahena without surrounding erythema or purulent discharge. Wound VAC on left thigh without surrounding erythema. Back: Bruising in the low thoracic spine in the midline with tenderness. Ext: No cyanosis, 3+ pitting edema to the upper thighs Neur: Awake and alert, moves 4 extremities appropriately, cranial nerves II through XII intact bilaterally Psych: Normal Mood and Affect Result Diagram: 10/23/16 1620 10/23/16 1620 Results 24 hrs Laboratory Tests Test 10/23/16 16:00 10/23/16 16:20 10/23/16 18:17 Troponin I < 0.012ng/ml White Blood Count 11.210^3/ul Red Blood Count 2.7710^6/ul Hemoglobin 8.4g/dl Hematocrit 27.5% Mean Corpuscular Volume 99.3fl Mean Corpuscular Hemoglobin 30.3pg Mean Corpuscular Hemoglobin Concent 30.5g/dl Red Cell Distribution Width 18.2% Platelet Count 47547^3/UL Mean Platelet Volume 10.0fl Neutrophils % 74.1% Lymphocytes % 12.6% Monocytes % 10.1% Eosinophils % 2.1% Basophils % 0.5% Nucleated Red Blood Cells % 0.0/100WBC Neutrophils # 8.310^3/ul Lymphocytes # 1.410^3/ul Monocytes # 1.110^3/ul Eosinophils # 0.210^3/ul Basophils # 0.110^3/ul Nucleated Red Blood Cells # 0.010^3/ul Sodium Level 137mmol/L Potassium Level 5.2mmol/L Chloride Level 96mmol/L Carbon Dioxide Level 23mmol/L Anion Gap 23 Blood Urea Nitrogen 80mg/dl Creatinine 6.48mg/dl Glucose Level 153mg/dl Calcium Level 8.8mg/dl Total Bilirubin 0.0mg/dl Direct Bilirubin 0.00mg/dl Indirect Bilirubin 0.0mg/dl Aspartate Amino Transf (AST/SGOT) 19IU/L Alanine Aminotransferase (ALT/SGPT) 31IU/L Alkaline Phosphatase 74IU/L Total Protein 6.2g/dl Albumin 4.3g/dl Globulin 1.90g/dl Albumin/Globulin Ratio 2.26 Lipase 54U/L Urine Color LT. YELLOW Urine Clarity CLOUDY Urine pH 5.5 Urine Specific [place] 1.015 Urine Ketones NEGATIVE Urine Nitrite NEGATIVE Urine Bilirubin NEGATIVE Urine Urobilinogen 0.2 E.U./dL Urine Leukocyte Esterase 2+ Urine Microscopic RBC 5-10/HPF Urine Microscopic WBC >200/HPF Urine Squamous Epithelial Cells MANY Urine Bacteria MODERATE Urine Yeast OCCASIONAL Urine Hemoglobin 2+ Urine Glucose 0.1%% Urine Total Protein 2+ Current Medications Medications (Trade) Dose Ordered Sig/Danielle Route PRN Reason Start Time Stop Time Status Last Admin Dose Admin Oxycodone/ Acetaminophen 1 tab 1 tab ONCE ONCE PO 10/23/16 19:00 10/23/16 19:01 DC 10/23/16 18:44 Ceftriaxone Sodium (Rocephin) 50 ml @ 100 mls/hr ONCE ONCE IVPB 10/23/16 19:30 10/23/16 19:59 DC 10/23/16 19:53 Procedures/MDM EKG read by me: Time 1523, rate 95 Rhythm: Atrial flutter with variable AV block [place]: Rightward axis Intervals: Normal ST-T waves: Nonspecific STT wave changes in inferior lateral leads Ectopy: No Q-waves: No Impression: Atrial flutter with variable block, nonspecific ST-T wave changes may be due to underlying flutter waves Chart review: Patient was seen in 2013 by cardiology with plan for echocardiogram and possible stress test. I do not find records that these tests were done. It was noted that the patient had signs of inferolateral ST depression and T-wave inversion at that time. MDM: Patient is a 61-year-old female with end-stage renal disease on dialysis who presents to the ER after her outpatient dialysis center would not perform dialysis due to recent vomiting. Patient has a benign abdominal exam. She is found to have a UTI, which I suspect is the cause of her vomiting. She also has a mild cellulitis around a chronic wound on her right leg. Patient was given antibiotics. She has no signs of sepsis. She has no significant hyperkalemia. She does have signs of volume overload, specifically lower extremity edema. She has minimal pulmonary symptoms. I discussed with the patient the option of arranging for outpatient dialysis tomorrow, but she stated that she is having such difficulty walking due to her leg edema that she does not think she will be able to transfer from wheelchair to her transport van. I discussed this with her loan interviewer, Dr. Rolon, who requested admission to the hospitalist. Departure Diagnosis: Primary Impression: Volume overload Hypervolemia type: other Qualified Code: E87.79 - Other hypervolemia Additional Impressions: Nausea and vomiting Vomiting type: unspecified Vomiting Intractability: unspecified Qualified Code: R11.2 - Nausea and vomiting, intractability of vomiting not specified, unspecified vomiting type UTI (urinary tract infection) Urinary tract infection type: site unspecified Hematuria presence: without hematuria Qualified Code: N39.0 - Urinary tract infection without hematuria, site unspecified Cellulitis Site of cellulitis: extremity Site of cellulitis of extremity: lower extremity Laterality: right Qualified Code: L03.115 - Cellulitis of right lower extremity End stage renal disease Condition: AMERICO Davenport MD Oct 23, 2016 15:24
[2016-10-23 16:28] LABS: ADD SCAN DIFF NO
[2016-10-23 16:31] LABS: BASOPHIL # 0.1 10^3/ul (0.0-0.1); BASOPHILS % 0.5 % (0.0-2.0); EOSINOPHILS # 0.2 10^3/ul (0.0-0.5); EOSINOPHILS % 2.1 % (0.0-7.0); HEMATOCRIT 27.5 % (37.0-47.0); HEMOGLOBIN 8.4 g/dl (12.0-16.0); LYMPHOCYTES # 1.4 10^3/ul (0.8-2.9); LYMPHOCYTES % 12.6 % (15.0-51.0); MEAN CORPUSCULAR HEMOGLOBIN 30.3 pg (29.0-33.0); MEAN CORPUSCULAR HGB CONC 30.5 g/dl (32.0-37.0); MEAN CORPUSCULAR VOLUME 99.3 fl (82.0-101.0); MONOCYTE # 1.1 10^3/ul (0.3-0.9); MONOCYTES % 10.1 % (0.0-11.0); NEUTROPHIL # 8.3 10^3/ul (1.6-7.5); NEUTROPHILS % 74.1 % (39.0-77.0); PLATELET COUNT 293 10^3/UL (140-415); RED BLOOD COUNT 2.77 10^6/ul (4.20-5.40); RED CELL DISTRIBUTION WIDTH 18.2 % (11.5-14.5); WHITE BLOOD COUNT 11.2 10^3/ul (4.8-10.8)
[2016-10-23 16:53] LABS: ALBUMIN 4.3 g/dl (3.3-4.9); ALBUMIN/GLOBULIN RATIO 2.26; CALCIUM 8.8 mg/dl (8.4-10.2); CREATININE 6.48 mg/dl (0.44-1.00); POTASSIUM 5.2 mmol/L (3.5-5.1); TOTAL PROTEIN 6.2 g/dl (6.1-8.1)
[2016-10-23 18:29] LABS: ADD UMIC YES; UR BILIRUBIN (Dip) NEGATIVE (NEGATIVE); UR BLOOD (Dip) 2+ (NEGATIVE); UR CLARITY CLOUDY (CLEAR); UR COLOR LT. YELLOW (YELLOW); UR KETONES (Dip) NEGATIVE (NEGATIVE); UR LEUKOCYTE ESTERASE (Dip) 2+ (NEGATIVE); UR NITRITE (Dip) NEGATIVE (NEGATIVE); UR TOTAL PROTEIN (Dip) 2+ (NEGATIVE); UR UROBILINOGEN (Dip) 0.2 E.U./dL (0.1-1.0)
[2016-10-23 18:37] LABS: UR BACTERIA MODERATE; UR SQUAMOUS EPITHELIAL CELL MANY
--- NOTE | 2016-10-23 18:41 | RADRPT ---
PROCEDURE: Thoracic Spine. CLINICAL INDICATION: Neck pain. Trauma.. TECHNIQUE: AP and lateral views of the thoracic spine are available for review COMPARISON: None available FINDINGS: Alignment is intact and normal. The vertebral body heights and intervertebral disk heights are all preserved. The normal thoracic kyphosis is present. No fracture or dislocation is seen. No radiop aque foreign body is identified. The paraspinous soft tissues are unremarkable. Lateral view is stearns ited due to patient body habitus and overlying soft tissues. IMPRESSION: 1. Unremarkable thoracic spine x-rays series. RPTAT: QQ .Ricci Schmidt MD, Date Time Electronically viewed and signed by .Ricci Schmidt MD, on 10/23/2016 18:40 .L/
--- NOTE | 2016-10-23 18:41 | RADRPT ---
PROCEDURE: X-ray cervical spine CLINICAL INDICATION: Cervical spine, TECHNIQUE: 4 views of the cervical spine COMPARISON: None FINDINGS: Cervical straightening seen, which may represent muscular spasm setting of trauma versus patient pos ition during imaging. No acute fracture. Soft tissues unremarkable. IMPRESSION: 1. Cervical straightening. 2. No acute fracture. RPTAT: UU Physician Anu Date Time Electronically viewed and signed by Physician Anu on 10/23/2016 18:40 RS/
--- NOTE | 2016-10-23 18:42 | RADRPT ---
PROCEDURE: XR Lumbar Spine. CLINICAL INDICATION: Low back pain. Trauma TECHNIQUE: AP, lateral, and lateral lumbosacral junction views of the lumbar spine are available f or review COMPARISON: None available FINDINGS: The normal lumbar lordosis is preserved. No acute fracture or compression is seen. The vertebral bod y heights are all normal. Intervertebral discs are normal in height. On the frontal view, there is n ormal alignment. Paraspinous soft tissues are grossly unremarkable. Calcific atherosclerosis of the aorta is present. IMPRESSION: 1. Unremarkable lumbar spine x-ray series. RPTAT: QQ .Ricci Schmidt MD, Date Time Electronically viewed and signed by .Ricci Schmidt MD, on 10/23/2016 18:41 .L/
--- NOTE | 2016-10-23 18:43 | RADRPT ---
PROCEDURE: XR Abdomen. CLINICAL INDICATION: Abdominal pain. Trauma. TECHNIQUE: AP abdomen x-ray. COMPARISON: None. FINDINGS: The bowel gas pattern is normal. There is no evidence of obstruction. There are no abnormal calcific ations overlying the urinary tracts. The osseous structures are unremarkable. Postsurgical clips ar e seen in the pelvis. Patient body habitus limits evaluation. IMPRESSION: Unremarkable abdomen radiograph. RPTAT: QQ .Ricci Schmidt MD, MD Date Time Electronically viewed and signed by .Ricci Schmidt MD, MD on 10/23/2016 18:42 .L/
[2016-10-23] MEDS ORDERED: OXYCODONE/ACETAMINOPHEN (10/325) TAB PO ONE (19:00)
[2016-10-23] MEDS ORDERED: CEFTRIAXONE 1 GM/50 ML (PMX) 50 ML IVPB ONE (19:30)
--- NOTE | 2016-10-23 19:46 | CONS ---
Date/Time of Note Date/Time of Note DATE: 10/23/16 TIME: 19:42 Assessment/Plan Assessment/Plan Chief Complaint/Hosp Course - ESRD on DIALYSIS TTS at [facility] - Cellulitis of leg - Anemia - Volume overloaded - Hyperkalemia - Hypertension - Hyperphosphatemia PLAN: Will plan for dialysis today & tomorrow Control of her gasteritis Monitor K Antibiotics Problems: Consultation Date/Type/Reason Admit Date/Time Date of Consultation: Oct 23, 2016 Type of Consultation: NEPHROLOGY Reason for Consultation - ESRD ( Missed HD X 2 ) Hx of Present Illness ESRD on dialysis was just discharged few days ago. Missed HD x 2 due to pain & unable to move. + Nausea / + volume overloaded Eyes: no complaints ENT: congestion Respiratory: shortness of breath Cardiovascular: no complaints Gastrointestinal: nausea, vomiting Genitourinary: no complaints Musculoskeletal: back pain, neck pain Past Medical History Medical History: coronary artery disease, diabetes, GERD, hypertension, renal disease Past Surgical History Past Surgical Hx: other Family History Significant Family History: no pertinent family hx Social History Alcohol Use: none Smoking Status: Current some day smoker Drug Use: none Exam/Review of Systems Vital Signs Vitals Vital Signs Date Time Temp Pulse Resp B/P Pulse Ox O2 Delivery O2 Flow Rate FiO2 10/23/16 18:21 85 18 98/88 98 Room Air 10/23/16 13:45 98.2 Exam Constitutional: alert, oriented Psych: no complaints Head: normocephalic Eyes: nl conjunctiva ENMT: nl external ears & nose Respiratory: crackles/rales Cardiovascular: edema, systolic murmur Gastrointestinal: soft Results Result Diagram: 10/23/16 1620 10/23/16 1620 Results 24 hrs Laboratory Tests Test 10/23/16 16:00 10/23/16 16:20 10/23/16 18:17 Troponin I < 0.012 White Blood Count 11.2 #H Red Blood Count 2.77 L Hemoglobin 8.4 L Hematocrit 27.5 L Mean Corpuscular Volume 99.3 Mean Corpuscular Hemoglobin 30.3 Mean Corpuscular Hemoglobin Concent 30.5 L Red Cell Distribution Width 18.2 H Platelet Count 293 # Mean Platelet Volume 10.0 Neutrophils % 74.1 Lymphocytes % 12.6 L Monocytes % 10.1 Eosinophils % 2.1 Basophils % 0.5 Nucleated Red Blood Cells % 0.0 Neutrophils # 8.3 H Lymphocytes # 1.4 Monocytes # 1.1 H Eosinophils # 0.2 Basophils # 0.1 Nucleated Red Blood Cells # 0.0 Sodium Level 137 Potassium Level 5.2 H Chloride Level 96 L Carbon Dioxide Level 23 Anion Gap 23 H Blood Urea Nitrogen 80 H Creatinine 6.48 H Glucose Level 153 Calcium Level 8.8 Total Bilirubin 0.0 L Direct Bilirubin 0.00 Indirect Bilirubin 0.0 Aspartate Amino Transf (AST/SGOT) 19 Alanine Aminotransferase (ALT/SGPT) 31 Alkaline Phosphatase 74 Total Protein 6.2 Albumin 4.3 Globulin 1.90 Albumin/Globulin Ratio 2.26 Lipase 54 Urine Color LT. YELLOW Urine Clarity CLOUDY Urine pH 5.5 Urine Specific [place] 1.015 Urine Ketones NEGATIVE Urine Nitrite NEGATIVE Urine Bilirubin NEGATIVE Urine Urobilinogen 0.2 E.U./dL Urine Leukocyte Esterase 2+ H Urine Microscopic RBC 5-10 Urine Microscopic WBC >200 Urine Squamous Epithelial Cells MANY Urine Bacteria MODERATE Urine Yeast OCCASIONAL Urine Hemoglobin 2+ H Urine Glucose 0.1% H Urine Total Protein 2+ H Medications Medications Current Medications Ceftriaxone Sodium (Rocephin) 50 ml @ 100 mls/hr ONCE ONCE IVPB ; Start at 19:30; Stop 10/23/16 at 19:59 BECKY GAMBLE MD Oct 23, 2016 19:46
[2016-10-23] MEDS ORDERED: ACETAMINOPHEN 325 MG TAB PO PRN ×2 (21:00)
[2016-10-23] MEDS ORDERED: ONDANSETRON 4 MG INJ IV PRN ×2 (21:00)
[2016-10-23 21:44] VITALS: PULSE 76
[2016-10-23 22:05] VITALS: BP_SYST 101; BP_SYST 102; BP_DIAS 55; BP_DIAS 67; PULSE 75; PULSE 79
[2016-10-23 22:35] VITALS: BP 85/43; PULSE 80
[2016-10-23 23:05] VITALS: BP 87/50; PULSE 82
[2016-10-23] MEDS ORDERED: GLUCOSE GEL 15 GRAM TUBE BUCCAL PRN (23:30)
[2016-10-23] MEDS ORDERED: GLUCAGON 1 MG INJ IM PRN (23:30)
[2016-10-23] MEDS ORDERED: GLUCOSE GEL 15 GRAM TUBE PO PRN ×2 (23:30)
[2016-10-23] MEDS ORDERED: DEXTROSE 50% 50 ML SYRINGE IV PRN ×2 (23:30)
[2016-10-23] MEDS ORDERED: ALBUTEROL HFA 8 GM INHALER INH PRN (23:30)
[2016-10-23 23:35] VITALS: BP 87/44; PULSE 90
[2016-10-23] MEDS ORDERED: ALBUTEROL 18 GM INHALER INH PRN (23:45)
[2016-10-24] VITALS (20 sets, daily range): BP systolic 76–129; BP diastolic 46–74; PULSE 76–126; RESP 16–19; Ht 162.6 cm; Wt 103.8 kg
[2016-10-24] MEDS ORDERED: METOCLOPRAMIDE 10 MG TAB PO SCH
[2016-10-24] MEDS: ZOLPIDEM 5 MG TAB PO PRN ×2 (00:33→21:04)
[2016-10-24] MEDS: METOCLOPRAMIDE 5 MG TAB PO SCH ×4 (00:33→18:04)
[2016-10-24] MEDS: ACCU-CHEK XX SCH (02:00)
[2016-10-24] MEDS ORDERED: ACCU-CHEK XX SCH (02:00)
[2016-10-24] MEDS ORDERED: PENDING SANTYL ORDER FOR WOUND CARE XX PRN (05:30)
[2016-10-24] MEDS: PANTOPRAZOLE (EC) 40 MG TAB PO SCH (05:35)
[2016-10-24] MEDS: FUROSEMIDE 40 MG TAB PO SCH (05:36)
[2016-10-24] MEDS: OXYCODONE/ACETAMINOPHEN (10/325) TAB PO PRN ×3 (05:36→18:41)
[2016-10-24] MEDS: BENZONATATE 100 MG CAP PO SCH ×4 (05:36→18:04)
[2016-10-24 07:13] LABS: ADD SCAN DIFF NO
[2016-10-24 07:19] LABS: BASOPHIL # 0.1 10^3/ul (0.0-0.1); BASOPHILS % 0.4 % (0.0-2.0); EOSINOPHILS # 0.4 10^3/ul (0.0-0.5); EOSINOPHILS % 3.2 % (0.0-7.0); HEMATOCRIT 27.1 % (37.0-47.0); HEMOGLOBIN 8.3 g/dl (12.0-16.0); LYMPHOCYTES # 1.2 10^3/ul (0.8-2.9); LYMPHOCYTES % 11.1 % (15.0-51.0); MEAN CORPUSCULAR HEMOGLOBIN 30.4 pg (29.0-33.0); MEAN CORPUSCULAR HGB CONC 30.6 g/dl (32.0-37.0); MEAN CORPUSCULAR VOLUME 99.3 fl (82.0-101.0); MEAN PLATELET VOLUME 10.1 fl (7.4-10.4); MONOCYTE # 1.2 10^3/ul (0.3-0.9); MONOCYTES % 10.3 % (0.0-11.0); NEUTROPHIL # 8.3 10^3/ul (1.6-7.5); NEUTROPHILS % 74.3 % (39.0-77.0); PLATELET COUNT 291 10^3/UL (140-415); RED BLOOD COUNT 2.73 10^6/ul (4.20-5.40); RED CELL DISTRIBUTION WIDTH 18.2 % (11.5-14.5); WHITE BLOOD COUNT 11.1 10^3/ul (4.8-10.8)
[2016-10-24 07:46] LABS: ALBUMIN 3.8 g/dl (3.3-4.9); CALCIUM 8.5 mg/dl (8.4-10.2); CREATININE 5.67 mg/dl (0.44-1.00); MAGNESIUM 3.1 mg/dl (1.7-2.5); PHOSPHORUS 6.7 mg/dl (2.5-4.9); POTASSIUM 5.2 mmol/L (3.5-5.1); TOTAL PROTEIN 5.7 g/dl (6.1-8.1)
[2016-10-24] MEDS ORDERED: NON-FORMULARY/PATIENT OWN MED (Omeprazole* (Prilosec*) 40 MG) PO SCH (09:00)
[2016-10-24] MEDS ORDERED: [UNRECOGNIZED DRUG - OTHER] INH SCH (09:00)
[2016-10-24] MEDS ORDERED: FORMOTEROL INH SCH (09:00)
[2016-10-24] MEDS: MONTELUKAST 10 MG TAB PO SCH (09:10)
[2016-10-24] MEDS: DILTIAZEM (SR) 60 MG CAP PO SCH ×2 (09:10→21:00)
[2016-10-24] MEDS: CINACALCET 30 MG TAB PO SCH (09:10)
[2016-10-24] MEDS: ASPIRIN 81 MG TAB PO SCH (09:10)
[2016-10-24] MEDS: AMLODIPINE 5 MG TAB PO SCH (09:10)
[2016-10-24] MEDS: METOPROLOL 50 MG TAB PO SCH ×2 (09:10→21:00)
[2016-10-24] MEDS: PYRIDOXINE 50 MG TAB PO SCH (09:10)
[2016-10-24] MEDS: LOSARTAN 50 MG TAB PO SCH ×2 (09:11→21:00)
[2016-10-24] MEDS: CALCIUM ACETATE 667 MG CAP PO SCH ×3 (09:11→18:04)
[2016-10-24] MEDS: TIOTROPIUM 18 MCG CAPSULE INHA DEV INH SCH (09:11)
[2016-10-24] MEDS: INSULIN ASPART [NOVOLOG] 3 ML PEN SC SCH ×4 (09:19→21:10)
--- NOTE | 2016-10-24 09:51 | HP ---
DATE OF ADMISSION: 10/23/2016 CHIEF COMPLAINT: Nausea, vomiting, missed dialysis. 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 She sa id because of the nausea and vomiting, over the past 3 to 4 days, she missed her last dialysis. Vom iting is described as nonbilious, nonbloody, with no associated abdominal pain. Denies diarrhea but reported constipation. The patient also reported that 2 days ago she had a ground level fall susta ining pain to her lower back and neck. Denied hitting her head or neck area. The patient also has chronic wounds her high, and she is status post debridement as well as wound VAC, but now she report s that her cat scratched her on her right bahena area and now she has some redness as well as some isabel inage. The patient was just discharged from here 2 days ago after she initially presented with left thigh c hronic wound. She underwent debridement at that time. The plan was for her to continue home health , and she had wound VAC. When she presented to the ER today, she was tachycardic with a heart rate of 112. Otherwise, the re st of her vitals were stable. Laboratory value shows a WBC of 11.2, hemoglobin 8.4, platelet count 293. Potassium 5.2, chloride 96, sodium 137, bicarbonate 23, BUN 80, creatinine 6.48. Urinalysis s hows a severe urinary tract infection. She had an x-ray of the cervical, the lumbar, and the thorac ic spine which shows cervical strengthening, otherwise all of them without acute fracture and were u nremarkable. Abdominal x-ray was done which was unremarkable. The patient has already been evaluat ed by her retail sales associate bilingual, Dr. Rolon, and actually currently is undergoing dialysis. REVIEW OF SYSTEMS: A 12-point review was performed and negative except as mentioned in the HPI. PAST MEDICAL HISTORY: As per HPI. PAST SURGICAL HISTORY: As per HPI. SOCIAL HISTORY: Denied a history of tobacco, alcohol, or illicit drug use. ALLERGIES: 1. CIPROFLOXACIN 2. PENICILLIN. HOME MEDICATIONS: 1. Albuterol. 2. Spiriva. 3. Eliquis. 4. Norvasc. 5. Lipitor. 6. Cardizem. 7. Losartan. 8. Toprol-XL. 9. Aspirin. 10. Percocet. 11. Ambien. 12. PhosLo. 13. Lasix. 14. Tessalon. 15. Symbicort. 16. Reglan. 17. Prilosec. 18. Insulin. 19. Pyridoxine. 20. Sensipar. PHYSICAL EXAMINATION: VITAL SIGNS: Blood pressure 97/60, heart rate 75, respiratory rate 20, temperature earlier was 98.2 , oxygen saturation 97% on room air. GENERAL: The patient is lying in bed, currently receiving dialysis, and is somehow sleepy but arous able to verbal stimuli. HEENT: No obvious head deformity. Pupils are reactive to light. CARDIOVASCULAR: Tachycardic with regular rhythm. LUNGS: Clear. ABDOMEN: Soft. There is some mild discomfort in the lower abdominal region with no guarding, rebou nd tenderness, or rigidity. EXTREMITIES: There is erythema with some wound on the right thigh. There is also erythema and some discharge from a wound on the right bahena. There is a wound VAC in place on the thigh. There is al so greater than 2+ pitting edema in bilateral extremities including her thighs. LABORATORY DATA: Pertinent positive results as mentioned in the HPI. IMAGING: Abdominal x-ray and x-ray of the cervical, the lumbar, and thoracic spine with results as mentioned in the HPI. IMPRESSION: 1. Nausea and vomiting, likely from missed dialysis. 2. Urinary tract infection. 3. End-stage renal disease on dialysis, currently being dialyzed. 4. Chronic left thigh wound with a history of recent debridement. There is also a wound VAC. 5. Right bahena punctate wound/cellulitis. 6. Hypertension. 7. Type 2 diabetes. 8. Dyslipidemia. 9. Anemia of chronic disease. 10. Mild hyperkalemia. PLAN: Continue dialysis per Nephrology. We will provide antiemetics and pain medication as needed. She will be placed on antibiotic for her urinary tract infection. We [facility]. We will continue her home medication with adjustment as needed, but for now will hold he r antihypertensives given blood pressure is on the lower side. She will be on insulin while in hous e for diabetes. We will monitor her hemoglobin closely, and if needed, we will transfuse. Correct electrolytes as needed. Continue wound VAC, and upon discharge, she already has home health set up for continued management. She will be placed on broad spectrum antibiotic, which will address both the urinary tract infection as well as her lower extremity infection including the new one on her sh in secondary to the cat scratch. Further workup and management per clinical course. Dictated By: MARSHAL VILLELA/BLANCA Conf#: [id number] DID#: [id number]
--- NOTE | 2016-10-24 15:01 | PN ---
Date/Time of Note Date/Time of Note DATE: 10/24/16 TIME: 14:59 Assessment/Plan VTE Prophylaxis VTE Prophylaxis Intervention: LMWH Lines/Catheters IV Catheter Type (from [facility]): Saline Lock Urinary Cath still in place: No Assessment/Plan Chief Complaint/Hosp Course Subjective: Fell walking to the bathroom with her . Could not walk and missed dialysis. Objective: Vital signs stable sinus rhythm Physical exam Regular Clear Bowel sounds positive nontender nondistended no rigidity rebound guarding she is overweight Mild edema. Left wound VAC in place A/P 1. Mechanical fall, stable continue supportive care 2. ESRD; stable continue dialysis with Dr. Estrada 3. Neck pain continue supportive care no focal weakness 4. Left thigh wound VAC; continue wound VAC therapy 5. Right thigh discomfort, supportive care 6. Diabetes, needs aggressive diabetic care 7. Hypertension dyslipidemia/cataracts 8. Constipation Problems: Exam/Review of Systems Vital Signs Vitals Vital Signs Date Time Temp Pulse Resp B/P Pulse Ox O2 Delivery O2 Flow Rate FiO2 10/24/16 12:10 103 10/24/16 12:10 16 10/24/16 11:50 98.1 108/52 97 10/23/16 21:20 Room Air Intake and Output 10/23/16 10/23/16 10/24/16 15:00 23:00 07:00 Intake Total 750 ml Output Total 2400 ml Balance -1650 ml Results Result Diagram: 10/24/16 0555 10/24/16 0555 Results 24 hrs Laboratory Tests Test 10/23/16 16:00 10/23/16 16:20 10/23/16 18:17 10/23/16 23:50 Troponin I < 0.012 White Blood Count 11.2 #H Red Blood Count 2.77 L Hemoglobin 8.4 L Hematocrit 27.5 L Mean Corpuscular Volume 99.3 Mean Corpuscular Hemoglobin 30.3 Mean Corpuscular Hemoglobin Concent 30.5 L Red Cell Distribution Width 18.2 H Platelet Count 293 # Mean Platelet Volume 10.0 Neutrophils % 74.1 Lymphocytes % 12.6 L Monocytes % 10.1 Eosinophils % 2.1 Basophils % 0.5 Nucleated Red Blood Cells % 0.0 Neutrophils # 8.3 H Lymphocytes # 1.4 Monocytes # 1.1 H Eosinophils # 0.2 Basophils # 0.1 Nucleated Red Blood Cells # 0.0 Sodium Level 137 Potassium Level 5.2 H Chloride Level 96 L Carbon Dioxide Level 23 Anion Gap 23 H Blood Urea Nitrogen 80 H Creatinine 6.48 H Glucose Level 153 Calcium Level 8.8 Total Bilirubin 0.0 L Direct Bilirubin 0.00 Indirect Bilirubin 0.0 Aspartate Amino Transf (AST/SGOT) 19 Alanine Aminotransferase (ALT/SGPT) 31 Alkaline Phosphatase 74 Total Protein 6.2 Albumin 4.3 Globulin 1.90 Albumin/Globulin Ratio 2.26 Lipase 54 Urine Color LT. YELLOW Urine Clarity CLOUDY Urine pH 5.5 Urine Specific [place] 1.015 Urine Ketones NEGATIVE Urine Nitrite NEGATIVE Urine Bilirubin NEGATIVE Urine Urobilinogen 0.2 E.U./dL Urine Leukocyte Esterase 2+ H Urine Microscopic RBC 5-10 Urine Microscopic WBC >200 Urine Squamous Epithelial Cells MANY Urine Bacteria MODERATE Urine Yeast OCCASIONAL Urine Hemoglobin 2+ H Urine Glucose 0.1% H Urine Total Protein 2+ H Hemoglobin A1c 6.9 H Test 10/24/16 00:04 10/24/16 05:55 10/24/16 08:03 10/24/16 12:31 Bedside Glucose 103 187 198 White Blood Count 11.1 H Red Blood Count 2.73 L Hemoglobin 8.3 L Hematocrit 27.1 L Mean Corpuscular Volume 99.3 Mean Corpuscular Hemoglobin 30.4 Mean Corpuscular Hemoglobin Concent 30.6 L Red Cell Distribution Width 18.2 H Platelet Count 291 Mean Platelet Volume 10.1 Neutrophils % 74.3 Lymphocytes % 11.1 L Monocytes % 10.3 Eosinophils % 3.2 Basophils % 0.4 Nucleated Red Blood Cells % 0.0 Neutrophils # 8.3 H Lymphocytes # 1.2 Monocytes # 1.2 H Eosinophils # 0.4 Basophils # 0.1 Nucleated Red Blood Cells # 0.0 Sodium Level 138 Potassium Level 5.2 H Chloride Level 99 Carbon Dioxide Level 26 Anion Gap 18 H Blood Urea Nitrogen 67 H Creatinine 5.67 H Glucose Level 177 Calcium Level 8.5 Phosphorus Level 6.7 H Magnesium Level 3.1 H Total Bilirubin 0.0 L Direct Bilirubin 0.00 Indirect Bilirubin 0.0 Aspartate Amino Transf (AST/SGOT) 43 Alanine Aminotransferase (ALT/SGPT) 25 Alkaline Phosphatase 79 Total Protein 5.7 L Albumin 3.8 Globulin 1.90 Albumin/Globulin Ratio 2.00 Medications Medications Current Medications Insulin Detemir (Levemir) 90 unit DAILY@20 SC ; Start 6/11/17 at 20:00 Diagnostic Test (Pha) (Accu-Chek) 1 ea 02 XX ; Start 10/24/16 at 02:00 Acetaminophen (Tylenol Tab) 650 mg Q6H PRN PO PAIN AND OR ELEVATED TEMP; Start 10/23/16 at 23:00 Miscellaneous Information 1 ea NOTE XX ; Start 10/23/16 at 23:30 Glucose (Glutose) 15 gm Q15M PRN PO DECREASED GLUCOSE; Start 10/23/16 at 23:30 Glucose (Glutose) 22.5 gm Q15M PRN PO DECREASED GLUCOSE; Start 10/23/16 at 23: 30 Dextrose (D50w Syringe) 25 ml Q15M PRN IV DECREASED GLUCOSE; Start 10/23/16 at 23:30 Dextrose (D50w Syringe) 50 ml Q15M PRN IV DECREASED GLUCOSE; Start 10/23/16 at 23:30 Glucagon (Glucagen) 1 mg Q15M PRN IM DECREASED GLUCOSE; Start 10/23/16 at 23:30 Glucose (Glutose) 15 gm Q15M PRN BUCCAL DECREASED GLUCOSE; Start 10/23/16 at 23 :30 Amlodipine Besylate (Norvasc) 5 mg DAILY PO Last administered on 10/24/16 09: 10; Admin Dose 5 MG; Start 10/24/16 at 09:00 Aspirin (Aspirin) 81 mg DAILY PO Last administered on 10/24/16 09:10; Admin Dose 81 MG; Start 10/24/16 at 09:00 Atorvastatin Calcium (Lipitor) 40 mg QHS PO ; Start 10/24/16 at 21:00 Benzonatate (Tessalon) 100 mg Q6 PO Last administered on 10/24/16 12:30; Admin Dose 100 MG; Start 10/24/16 at 00:00 Cinacalcet (Sensipar) 30 mg DAILY PO Last administered on 10/24/16 09:10; Admin Dose 30 MG; Start 10/24/16 at 09:00 Diltiazem HCl (Cardizem Sr) 60 mg Q12 PO Last administered on 10/24/16 09:10; Admin Dose 60 MG; Start 10/24/16 at 09:00 Furosemide (Lasix) 80 mg DAILY@06 PO Last administered on 10/24/16 05:36; Admin Dose 80 MG; Start 10/24/16 at 06:00 Insulin Detemir (Levemir) 90 unit HS SC ; Start 10/24/16 at 21:00 Montelukast Sodium (Singulair) 10 mg QAM PO Last administered on 10/24/16 09: 10; Admin Dose 10 MG; Start 10/24/16 at 09:00 Oxycodone/ Acetaminophen (Endocet (10 325)) 1 tab Q6 PRN PO PRN Last administered on 10/24/16 12:30; Admin Dose 1 TAB; Start 10/23/16 at 23:30 Pyridoxine HCl (Vitamin B6) 50 mg DAILY PO Last administered on 10/24/16 09:10 ; Admin Dose 50 MG; Start 10/24/16 at 09:00 Tiotropium [place] (Spiriva) 1 inh DAILY INH Last administered on 10/24/16 09: 11; Admin Dose 1 INH; Start 10/24/16 at 09:00 Metoprolol Tartrate (Lopressor) 50 mg BID PO Last administered on 10/24/16 09: 10; Admin Dose 50 MG; Start 10/24/16 at 09:00 Losartan Potassium (Cozaar) 50 mg BID PO Last administered on 10/24/16 09:11; Admin Dose 50 MG; Start 10/24/16 at 09:00 Albuterol (Ventolin Hfa) 2 puff Q4H PRN INH WHEEZING AND SOB; Start 10/23/16 at 23:45 Metoclopramide HCl (Reglan) 5 mg Q6 PO Last administered on 10/24/16 12:30; Admin Dose 5 MG; Start 10/24/16 at 00:00 Pantoprazole (Protonix Tab) 40 mg DAILY@06 PO Last administered on 10/24/16 05 :35; Admin Dose 40 MG; Start 10/24/16 at 06:00 Zolpidem Tartrate (Ambien) 5 mg HS PRN PO INSOMNIA Last administered on 00:33; Admin Dose 5 MG; Start 10/24/16 at 00:30 Miscellaneous Information (Pending Santyl Order For Wound Care) This patient sexton... PRN PRN XX WOUND CARE; Start 10/24/16 at 05:30 Nicotine (Nicoderm 14 Mg/ 24hr) 1 patch DAILY TRANSDERM ; Start 10/25/16 at 09: 00 Formoterol (Foradil Aerolizer 12mcg/ Actu) 2 inh Q12 INH ; Start 10/25/16 at 09: 00 CARLO PATEL MD Oct 24, 2016 15:01
[2016-10-24] MEDS: DOCUSATE SODIUM 100 MG CAP PO SCH ×2 (16:05→21:38)
[2016-10-24] MEDS: VITAMIN A & D 5 GM OINT PACKET TOP SCH ×2 (16:05→21:04)
[2016-10-24] MEDS: LACTOBACILLUS RHAMNOSUS CAP PO SCH (18:04)
[2016-10-24] MEDS: INSULIN DETEMIR [LEVEMIR] 3ML CART SC SCH ×2 (21:00→21:11)
[2016-10-24] MEDS: ATORVASTATIN 40 MG TAB PO SCH (21:03)
[2016-10-24] MEDS: CARISOPRODOL 350 MG TAB PO PRN (21:38)
[2016-10-25] VITALS (10 sets, daily range): BP systolic 82–115; BP diastolic 50–60; PULSE 60–126; RESP 17–19
[2016-10-25] MEDS: BENZONATATE 100 MG CAP PO SCH ×4 (00:04→18:26)
[2016-10-25] MEDS: OXYCODONE/ACETAMINOPHEN (10/325) TAB PO PRN ×4 (00:04→20:24)
[2016-10-25] MEDS: METOCLOPRAMIDE 5 MG TAB PO SCH ×4 (00:04→18:00)
[2016-10-25] MEDS: METOPROLOL 50 MG TAB PO SCH ×3 (00:54→21:00)
[2016-10-25] MEDS: DILTIAZEM (SR) 60 MG CAP PO SCH ×2 (00:56→10:04)
[2016-10-25] MEDS: ACCU-CHEK XX SCH (02:48)
[2016-10-25] MEDS: CARISOPRODOL 350 MG TAB PO PRN ×2 (05:47→20:24)
[2016-10-25] MEDS: PANTOPRAZOLE (EC) 40 MG TAB PO SCH (05:47)
[2016-10-25] MEDS: FUROSEMIDE 40 MG TAB PO SCH (05:47)
[2016-10-25 05:56] LABS: ADD SCAN DIFF NO
[2016-10-25 06:09] LABS: ABNORMAL IP MESSAGE 1; BASOPHIL # 0.1 10^3/ul (0.0-0.1); BASOPHILS % 0.6 % (0.0-2.0); EOSINOPHILS # 0.4 10^3/ul (0.0-0.5); EOSINOPHILS % 2.4 % (0.0-7.0); HEMATOCRIT 26.5 % (37.0-47.0); LYMPHOCYTES # 1.5 10^3/ul (0.8-2.9); LYMPHOCYTES % 10.4 % (15.0-51.0); MEAN CORPUSCULAR HEMOGLOBIN 30.1 pg (29.0-33.0); MEAN CORPUSCULAR HGB CONC 30.2 g/dl (32.0-37.0); MEAN CORPUSCULAR VOLUME 99.6 fl (82.0-101.0); MEAN PLATELET VOLUME 9.9 fl (7.4-10.4); MONOCYTE # 1.9 10^3/ul (0.3-0.9); MONOCYTES % 13.4 % (0.0-11.0); NEUTROPHIL # 10.5 10^3/ul (1.6-7.5); NEUTROPHILS % 72.6 % (39.0-77.0); PLATELET COUNT 332 10^3/UL (140-415); RED BLOOD COUNT 2.66 10^6/ul (4.20-5.40); RED CELL DISTRIBUTION WIDTH 18.6 % (11.5-14.5); WHITE BLOOD COUNT 14.4 10^3/ul (4.8-10.8)
[2016-10-25 06:41] LABS: CREATININE 4.71 mg/dl (0.44-1.00); INR 1.33; POTASSIUM 4.2 mmol/L (3.5-5.1); PROTIME 16.6 Sec (12.2-14.2); PT RATIO 1.3
[2016-10-25 07:11] LABS: THYROID STIMULATING HORMONE 3.86 MIU/L (0.465-4.680)
[2016-10-25] MEDS: INSULIN ASPART [NOVOLOG] 3 ML PEN SC SCH ×4 (08:18→21:00)
[2016-10-25] MEDS ORDERED: ENOXAPARIN 30 MG/0.3 ML SYG SC SCH (09:00)
[2016-10-25] MEDS: FORMOTEROL INH SCH ×2 (09:00→21:00)
[2016-10-25] MEDS: [UNRECOGNIZED DRUG - OTHER] INH SCH ×2 (09:00→21:00)
[2016-10-25] MEDS: CALCIUM ACETATE 667 MG CAP PO SCH ×3 (10:02→18:06)
[2016-10-25] MEDS: CINACALCET 30 MG TAB PO SCH (10:02)
[2016-10-25] MEDS: DOCUSATE SODIUM 100 MG CAP PO SCH ×2 (10:02→20:24)
[2016-10-25] MEDS: MONTELUKAST 10 MG TAB PO SCH (10:02)
[2016-10-25] MEDS: ASPIRIN 81 MG TAB PO SCH (10:03)
[2016-10-25] MEDS: AMLODIPINE 5 MG TAB PO SCH (10:03)
[2016-10-25] MEDS: LACTOBACILLUS RHAMNOSUS CAP PO SCH ×2 (10:03→20:24)
[2016-10-25] MEDS: TIOTROPIUM 18 MCG CAPSULE INHA DEV INH SCH (10:03)
[2016-10-25] MEDS: VITAMIN A & D 5 GM OINT PACKET TOP SCH ×2 (10:03→20:25)
[2016-10-25] MEDS: NICOTINE (14 MG/24 HR) PATCH TRANSDERM SCH (10:04)
[2016-10-25] MEDS: LOSARTAN 50 MG TAB PO SCH ×2 (10:04→21:00)
[2016-10-25] MEDS: PYRIDOXINE 50 MG TAB PO SCH (10:04)
--- NOTE | 2016-10-25 10:43 | PN ---
Date/Time of Note Date/Time of Note DATE: 10/25/16 TIME: 10:40 Assessment/Plan VTE Prophylaxis VTE Prophylaxis Intervention: SCD's Lines/Catheters IV Catheter Type (from Nrsg): Saline Lock Urinary Cath still in place: No Assessment/Plan Assessment/Plan 61 yo F with pmhx ESRD on HD, DM2, obesity, HTN, admitted for nausea/vomitting thought to be due to a missed HD session. Pt previously discharged 6.7 after a stay for a LE wound. #ESRD with recent missed HD session: nephrology following, appreciate HD assistance #discharge planning: PT/OT/sw refs placed #LLE wound with wound vac: cont wound vac #AFib: cont ATC #HTN: cont home meds #HL: cont statin ?chronic pain: cont home soma Prophx: full ATC with eliquis Subjective 24 Hr Interval Summary Free Text/Dictation Pt reports her nausea vomiting has resolved. States she did not miss any HD sessions between discharge 6.7 and admission 6.11. Also concerned that she and her need assistance caring for pt at home Pt states her dry weight is 176 lbs Exam/Review of Systems Vital Signs Vitals Vital Signs Date Time Temp Pulse Resp B/P Pulse Ox O2 Delivery O2 Flow Rate FiO2 10/25/16 08:09 82 10/25/16 07:13 98.8 17 115/54 93 10/23/16 21:20 Room Air Intake and Output 10/24/16 10/24/16 10/25/16 15:00 23:00 07:00 Intake Total 300 ml 350 ml 650 ml Output Total 1300 ml 1 ml Balance -1000 ml 349 ml 650 ml Exam nad, sitting up in bed, pleasant no mrg +palpable thrill over HD access in LUE abd obese, soft 1+ pitting bl edema to knees, mild weeping noticed in 2 cm patch over R ant bahena , no surrounding erythema or drainage +wound vac to L upper thigh Results Result Diagram: 10/25/1630 10/25/16 0530 Results 24 hrs Laboratory Tests Test 10/24/16 12:31 10/24/16 17:39 10/24/16 20:29 10/25/16 01:36 Bedside Glucose 198 224 H 243 H 215 Test 10/25/16 05:30 10/25/16 08:03 White Blood Count 14.4 #H Red Blood Count 2.66 L Hemoglobin 8.0 L Hematocrit 26.5 L Mean Corpuscular Volume 99.6 Mean Corpuscular Hemoglobin 30.1 Mean Corpuscular Hemoglobin Concent 30.2 L Red Cell Distribution Width 18.6 H Platelet Count 332 Mean Platelet Volume 9.9 Neutrophils % 72.6 Lymphocytes % 10.4 L Monocytes % 13.4 H Eosinophils % 2.4 Basophils % 0.6 Nucleated Red Blood Cells % 0.0 Neutrophils # 10.5 H Lymphocytes # 1.5 Monocytes # 1.9 H Eosinophils # 0.4 Basophils # 0.1 Nucleated Red Blood Cells # 0.0 Prothrombin Time 16.6 H Prothrombin Time Ratio 1.3 INR International Normalized Ratio 1.33 Sodium Level 141 Potassium Level 4.2 Chloride Level 101 Carbon Dioxide Level 26 Anion Gap 18 H Blood Urea Nitrogen 51 H Creatinine 4.71 H Glucose Level 177 Calcium Level 9.0 Thyroid Stimulating Hormone (TSH) 3.860 Bedside Glucose 147 Medications Medications Current Medications Insulin Detemir (Levemir) 90 unit DAILY@20 SC Last administered on 10/24/16 21 :11; Admin Dose 90 UNIT; Start 10/24/16 at 20:00 Diagnostic Test (Pha) (Accu-Chek) 1 ea 02 XX Last administered on 10/25/16 02: 48; Admin Dose 1 EA; Start 10/24/16 at 02:00 Acetaminophen (Tylenol Tab) 650 mg Q6H PRN PO PAIN AND OR ELEVATED TEMP; Start 10/23/16 at 23:00 Miscellaneous Information 1 ea NOTE XX ; Start 10/23/16 at 23:30 Glucose (Glutose) 15 gm Q15M PRN PO DECREASED GLUCOSE; Start 10/23/16 at 23:30 Glucose (Glutose) 22.5 gm Q15M PRN PO DECREASED GLUCOSE; Start 10/23/16 at 23: 30 Dextrose (D50w Syringe) 25 ml Q15M PRN IV DECREASED GLUCOSE; Start 10/23/16 at 23:30 Dextrose (D50w Syringe) 50 ml Q15M PRN IV DECREASED GLUCOSE; Start 10/23/16 at 23:30 Glucagon (Glucagen) 1 mg Q15M PRN IM DECREASED GLUCOSE; Start 10/23/16 at 23:30 Glucose (Glutose) 15 gm Q15M PRN BUCCAL DECREASED GLUCOSE; Start 10/23/16 at 23 :30 Amlodipine Besylate (Norvasc) 5 mg DAILY PO Last administered on 10/25/16 10: 03; Admin Dose 5 MG; Start 10/24/16 at 09:00 Aspirin (Aspirin) 81 mg DAILY PO Last administered on 10/25/16 10:03; Admin Dose 81 MG; Start 10/24/16 at 09:00 Atorvastatin Calcium (Lipitor) 40 mg QHS PO Last administered on 10/24/16 21: 03; Admin Dose 40 MG; Start 10/24/16 at 21:00 Benzonatate (Tessalon) 100 mg Q6 PO Last administered on 10/25/16 05:46; Admin Dose 100 MG; Start 10/24/16 at 00:00 Cinacalcet (Sensipar) 30 mg DAILY PO Last administered on 10/25/16 10:02; Admin Dose 30 MG; Start 10/24/16 at 09:00 Diltiazem HCl (Cardizem Sr) 60 mg Q12 PO Last administered on 10/25/16 10:04; Admin Dose 60 MG; Start 10/24/16 at 09:00 Furosemide (Lasix) 80 mg DAILY@06 PO Last administered on 10/25/16 05:47; Admin Dose 80 MG; Start 10/24/16 at 06:00 Insulin Detemir (Levemir) 90 unit HS SC ; Start 10/24/16 at 21:00 Montelukast Sodium (Singulair) 10 mg QAM PO Last administered on 10/25/16 10: 02; Admin Dose 10 MG; Start 10/24/16 at 09:00 Oxycodone/ Acetaminophen (Endocet (10/ 325)) 1 tab Q6 PRN PO PRN Last administered on 10/25/16 00:04; Admin Dose 1 TAB; Start 10/23/16 at 23:30 Pyridoxine HCl (Vitamin B6) 50 mg DAILY PO Last administered on 10/25/16 10:04 ; Admin Dose 50 MG; Start 10/24/16 at 09:00 Tiotropium [place] (Spiriva) 1 inh DAILY INH Last administered on 10/25/16 10: 03; Admin Dose 1 INH; Start 10/24/16 at 09:00 Metoprolol Tartrate (Lopressor) 50 mg BID PO Last administered on 10/25/16 10: 02; Admin Dose 50 MG; Start 10/24/16 at 09:00 Losartan Potassium (Cozaar) 50 mg BID PO Last administered on 10/25/16 10:04; Admin Dose 50 MG; Start 10/24/16 at 09:00 Albuterol (Ventolin Hfa) 2 puff Q4H PRN INH WHEEZING AND SOB; Start 10/23/16 at 23:45 Metoclopramide HCl (Reglan) 5 mg Q6 PO Last administered on 10/25/16 05:47; Admin Dose 5 MG; Start 10/24/16 at 00:00 Pantoprazole (Protonix Tab) 40 mg DAILY@06 PO Last administered on 10/25/16 05 :47; Admin Dose 40 MG; Start 10/24/16 at 06:00 Zolpidem Tartrate (Ambien) 5 mg HS PRN PO INSOMNIA Last administered on 21:04; Admin Dose 5 MG; Start 10/24/16 at 00:30 Miscellaneous Information (Pending [facility] Order For Wound Care) This patient sexton... PRN PRN XX WOUND CARE; Start 10/24/16 at 05:30 Nicotine (Nicoderm 14 Mg/ 24hr) 1 patch DAILY TRANSDERM Last administered on 10:04; Admin Dose 1 PATCH; Start 10/25/16 at 09:00 Formoterol (Foradil Aerolizer 12mcg/ Actu) 2 inh Q12 INH ; Start 10/25/16 at 09: 00 Vitamin A/Vitamin D (Vitamin A & D Oint) ONE APPLICATION rt thigh BID TOP Last administered on 10/25/16 10:03; Admin Dose 1 APPLIC; Start 10/24/16 at 15:30 Docusate Sodium (Colace) 100 mg BID PO Last administered on 10/25/16 10:02; Admin Dose 100 MG; Start 10/24/16 at 15:30 Lactobacillus Acidophilus/ Rhamnosus (Culturelle) 1 cap BID PO Last administered on 10/25/16 10:03; Admin Dose 1 CAP; Start 10/24/16 at 16:30 Carisoprodol (Soma) 350 mg Q8H PRN PO pain Last administered on 10/25/16 05:47 ; Admin Dose 350 MG; Start 10/24/16 at 21:30 Apixaban (Eliquis) 5 mg BID PO ; Start 10/25/16 at 21:00; Status UNV Losartan Potassium (Cozaar) 50 mg BID PO ; Start 10/25/16 at 21:00; Status UNV Zolpidem Tartrate (Ambien) 5 mg QHS PRN PO INSOMNIA; Start 10/25/16 at 11:00; Status LUIS E SHEN MD Oct 25, 2016 10:43 Losartan Potassium (Cozaar) 50 mg BID PO ; Start 10/25/16 at 21:00; Status UNV Zolpidem Tartrate (Ambien) 5 mg QHS PRN PO INSOMNIA; Start 10/25/16 at 11:00; Status LUIS E SHEN MD Oct 25, 2016 10:43
--- NOTE | 2016-10-25 11:58 | CONS ---
Date/Time of Note Date/Time of Note DATE: 10/25/16 TIME: 11:56 Assessment/Plan Assessment/Plan Chief Complaint/Hosp Course - ESRD on DIALYSIS TTS at [facility] - Cellulitis of leg - Anemia - Volume overloaded - Hyperkalemia - Hypertension - Hyperphosphatemia PLAN: Will plan for dialysis tomorrow Feels better Control of her gasseritis Monitor K Antibiotics May need to go to SNF ( she agrees ) Problems: Consultation Date/Type/Reason Admit Date/Time Oct 24, 2016 at 12:02 Initial Consult Date 10/23/16 Type of Consultation: NEPHROLOGY Reason for Consultation ESRD on dialysis 24 HR Interval Summary Constitutional: improved, no complaints Exam/Review of Systems Vital Signs Vitals Vital Signs Date Time Temp Pulse Resp B/P Pulse Ox O2 Delivery O2 Flow Rate FiO2 10/25/16 11:15 98.0 77 19 93/58 93 10/23/16 21:20 Room Air Intake and Output 10/24/16 10/24/16 10/25/16 15:00 23:00 07:00 Intake Total 300 ml 350 ml 650 ml Output Total 1300 ml 1 ml Balance -1000 ml 349 ml 650 ml Exam Constitutional: alert, oriented Respiratory: crackles/rales Cardiovascular: edema, systolic murmur Gastrointestinal: soft Results Result Diagram: 10/25/16 0530 10/25/16 0530 Results 24 hrs Laboratory Tests Test 10/24/16 12:31 10/24/16 17:39 10/24/16 20:29 10/25/16 01:36 Bedside Glucose 198 224 H 243 H 215 Test 10/25/16 05:30 10/25/16 08:03 White Blood Count 14.4 #H Red Blood Count 2.66 L Hemoglobin 8.0 L Hematocrit 26.5 L Mean Corpuscular Volume 99.6 Mean Corpuscular Hemoglobin 30.1 Mean Corpuscular Hemoglobin Concent 30.2 L Red Cell Distribution Width 18.6 H Platelet Count 332 Mean Platelet Volume 9.9 Neutrophils % 72.6 Lymphocytes % 10.4 L Monocytes % 13.4 H Eosinophils % 2.4 Basophils % 0.6 Nucleated Red Blood Cells % 0.0 Neutrophils # 10.5 H Lymphocytes # 1.5 Monocytes # 1.9 H Eosinophils # 0.4 Basophils # 0.1 Nucleated Red Blood Cells # 0.0 Prothrombin Time 16.6 H Prothrombin Time Ratio 1.3 INR International Normalized Ratio 1.33 Sodium Level 141 Potassium Level 4.2 Chloride Level 101 Carbon Dioxide Level 26 Anion Gap 18 H Blood Urea Nitrogen 51 H Creatinine 4.71 H Glucose Level 177 Calcium Level 9.0 Thyroid Stimulating Hormone (TSH) 3.860 Bedside Glucose 147 Medications Medications Current Medications Insulin Detemir (Levemir) 90 unit DAILY@20 SC Last administered on 10/24/16 21 :11; Admin Dose 90 UNIT; Start 10/24/16 at 20:00 Diagnostic Test (Pha) (Accu-Chek) 1 ea 02 XX Last administered on 10/25/16 02: 48; Admin Dose 1 EA; Start 10/24/16 at 02:00 Acetaminophen (Tylenol Tab) 650 mg Q6H PRN PO PAIN AND OR ELEVATED TEMP; Start 10/23/16 at 23:00 Miscellaneous Information 1 ea NOTE XX ; Start 10/23/16 at 23:30 Glucose (Glutose) 15 gm Q15M PRN PO DECREASED GLUCOSE; Start 10/23/16 at 23:30 Glucose (Glutose) 22.5 gm Q15M PRN PO DECREASED GLUCOSE; Start 10/23/16 at 23: 30 Dextrose (D50w Syringe) 25 ml Q15M PRN IV DECREASED GLUCOSE; Start 10/23/16 at 23:30 Dextrose (D50w Syringe) 50 ml Q15M PRN IV DECREASED GLUCOSE; Start 10/23/16 at 23:30 Glucagon (Glucagen) 1 mg Q15M PRN IM DECREASED GLUCOSE; Start 10/23/16 at 23:30 Glucose (Glutose) 15 gm Q15M PRN BUCCAL DECREASED GLUCOSE; Start 10/23/16 at 23 :30 Amlodipine Besylate (Norvasc) 5 mg DAILY PO Last administered on 10/25/16 10: 03; Admin Dose 5 MG; Start 10/24/16 at 09:00 Aspirin (Aspirin) 81 mg DAILY PO Last administered on 10/25/16 10:03; Admin Dose 81 MG; Start 10/24/16 at 09:00 Atorvastatin Calcium (Lipitor) 40 mg QHS PO Last administered on 10/24/16 21: 03; Admin Dose 40 MG; Start 10/24/16 at 21:00 Benzonatate (Tessalon) 100 mg Q6 PO Last administered on 10/25/16 05:46; Admin Dose 100 MG; Start 10/24/16 at 00:00 Cinacalcet (Sensipar) 30 mg DAILY PO Last administered on 10/25/16 10:02; Admin Dose 30 MG; Start 10/24/16 at 09:00 Diltiazem HCl (Cardizem Sr) 60 mg Q12 PO Last administered on 10/25/16 10:04; Admin Dose 60 MG; Start 10/24/16 at 09:00 Furosemide (Lasix) 80 mg DAILY@06 PO Last administered on 10/25/16 05:47; Admin Dose 80 MG; Start 10/24/16 at 06:00 Insulin Detemir (Levemir) 90 unit HS SC ; Start 10/24/16 at 21:00 Montelukast Sodium (Singulair) 10 mg QAM PO Last administered on 10/25/16 10: 02; Admin Dose 10 MG; Start 10/24/16 at 09:00 Oxycodone/ Acetaminophen (Endocet (10/ 325)) 1 tab Q6 PRN PO PRN Last administered on 10/25/16 00:04; Admin Dose 1 TAB; Start 10/23/16 at 23:30 Pyridoxine HCl (Vitamin B6) 50 mg DAILY PO Last administered on 10/25/16 10:04 ; Admin Dose 50 MG; Start 10/24/16 at 09:00 Tiotropium [place] (Spiriva) 1 inh DAILY INH Last administered on 10/25/16 10: 03; Admin Dose 1 INH; Start 10/24/16 at 09:00 Metoprolol Tartrate (Lopressor) 50 mg BID PO Last administered on 10/25/16 10: 02; Admin Dose 50 MG; Start 10/24/16 at 09:00 Losartan Potassium (Cozaar) 50 mg BID PO Last administered on 10/25/16 10:04; Admin Dose 50 MG; Start 10/24/16 at 09:00 Albuterol (Ventolin Hfa) 2 puff Q4H PRN INH WHEEZING AND SOB; Start 10/23/16 at 23:45 Metoclopramide HCl (Reglan) 5 mg Q6 PO Last administered on 10/25/16 05:47; Admin Dose 5 MG; Start 10/24/16 at 00:00 Pantoprazole (Protonix Tab) 40 mg DAILY@06 PO Last administered on 10/25/16 05 :47; Admin Dose 40 MG; Start 10/24/16 at 06:00 Miscellaneous Information (Pending Santyl Order For Wound Care) This patient sexton... PRN PRN XX WOUND CARE; Start 10/24/16 at 05:30 Nicotine (Nicoderm 14 Mg/ 24hr) 1 patch DAILY TRANSDERM Last administered on 10:04; Admin Dose 1 PATCH; Start 10/25/16 at 09:00 Formoterol (Foradil Aerolizer 12mcg/ Actu) 2 inh Q12 INH ; Start 10/25/16 at 09: 00 Vitamin A/Vitamin D (Vitamin A & D Oint) ONE APPLICATION rt thigh BID TOP Last administered on 10/25/16 10:03; Admin Dose 1 APPLIC; Start 10/24/16 at 15:30 Docusate Sodium (Colace) 100 mg BID PO Last administered on 10/25/16 10:02; Admin Dose 100 MG; Start 10/24/16 at 15:30 Lactobacillus Acidophilus/ Rhamnosus (Culturelle) 1 cap BID PO Last administered on 10/25/16 10:03; Admin Dose 1 CAP; Start 10/24/16 at 16:30 Carisoprodol (Soma) 350 mg Q8H PRN PO pain Last administered on 10/25/16 05:47 ; Admin Dose 350 MG; Start 10/24/16 at 21:30 Apixaban (Eliquis) 5 mg BID PO ; Start 10/25/16 at 21:00 Zolpidem Tartrate (Ambien) 5 mg QHS PRN PO INSOMNIA; Start 10/25/16 at 11:00 BECKY GAMBLE MD Oct 25, 2016 11:58
--- NOTE | 2016-10-25 14:15 | CONS ---
Date/Time of Note Date/Time of Note DATE: 10/25/16 TIME: 14:12 Assessment/Plan Assessment/Plan Chief Complaint/Hosp Course SUBJECTIVE: Awake, no fevers, nad PHYSICAL EXAMINATION: GENERAL: Morbidly obese, well-developed, elderly woman who is awake, in no distress. HEENT: Head atraumatic, normocephalic. Sclerae anicteric. Buccal mucosa dry. NECK: Supple. CHEST: Rise symmetrical. Breath sounds clear. HEART: S1, S2. ABDOMEN: Soft, bowel sounds present. EXTREMITIES: Without cyanosis. Left upper thigh wound vac present ASSESSMENT: 1. Bilateral lower extremities chronic venous stasis with left hip wound, s/p debridement and wound vac application 10/19/16. 2. End-stage renal disease, on hemodialysis. 3. Left upper extremity arteriovenous fistula. 4. Obesity. 5. Atrial fibrillation. PLAN: Previous wound cx grew Enterococcus/Corynebacterium/Giselle parapsilosis , will start Vanco and Fluconazole, f/u vascular rec-s. [facility] staff Problems: Consultation Date/Type/Reason Admit Date/Time Oct 24, 2016 at 12:02 Initial Consult Date 10/23/16 Type of Consultation: id Exam/Review of Systems Vital Signs Vitals Vital Signs Date Time Temp Pulse Resp B/P Pulse Ox O2 Delivery O2 Flow Rate FiO2 10/25/16 12:12 98 10/25/16 11:15 98.0 19 93/58 93 10/23/16 21:20 Room Air Intake and Output 10/24/16 10/24/16 10/25/16 15:00 23:00 07:00 Intake Total 300 ml 350 ml 650 ml Output Total 1300 ml 1 ml Balance -1000 ml 349 ml 650 ml Results Result Diagram: 10/25/16 0530 10/25/16 0530 Results 24 hrs Laboratory Tests Test 10/24/16 17:39 10/24/16 20:29 10/25/16 01:36 10/25/16 05:30 Bedside Glucose 224 H 243 H 215 White Blood Count 14.4 #H Red Blood Count 2.66 L Hemoglobin 8.0 L Hematocrit 26.5 L Mean Corpuscular Volume 99.6 Mean Corpuscular Hemoglobin 30.1 Mean Corpuscular Hemoglobin Concent 30.2 L Red Cell Distribution Width 18.6 H Platelet Count 332 Mean Platelet Volume 9.9 Neutrophils % 72.6 Lymphocytes % 10.4 L Monocytes % 13.4 H Eosinophils % 2.4 Basophils % 0.6 Nucleated Red Blood Cells % 0.0 Neutrophils # 10.5 H Lymphocytes # 1.5 Monocytes # 1.9 H Eosinophils # 0.4 Basophils # 0.1 Nucleated Red Blood Cells # 0.0 Prothrombin Time 16.6 H Prothrombin Time Ratio 1.3 INR International Normalized Ratio 1.33 Sodium Level 141 Potassium Level 4.2 Chloride Level 101 Carbon Dioxide Level 26 Anion Gap 18 H Blood Urea Nitrogen 51 H Creatinine 4.71 H Glucose Level 177 Calcium Level 9.0 Thyroid Stimulating Hormone (TSH) 3.860 Test 10/25/16 08:03 10/25/16 11:58 Bedside Glucose 147 141 Medications Medications Current Medications Insulin Detemir (Levemir) 90 unit DAILY@20 SC Last administered on 10/24/16 21 :11; Admin Dose 90 UNIT; Start 10/24/16 at 20:00 Diagnostic Test (Pha) (Accu-Chek) 1 ea 02 XX Last administered on 10/25/16 02: 48; Admin Dose 1 EA; Start 10/24/16 at 02:00 Acetaminophen (Tylenol Tab) 650 mg Q6H PRN PO PAIN AND OR ELEVATED TEMP; Start 10/23/16 at 23:00 Miscellaneous Information 1 ea NOTE XX ; Start 10/23/16 at 23:30 Glucose (Glutose) 15 gm Q15M PRN PO DECREASED GLUCOSE; Start 10/23/16 at 23:30 Glucose (Glutose) 22.5 gm Q15M PRN PO DECREASED GLUCOSE; Start 10/23/16 at 23: 30 Dextrose (D50w Syringe) 25 ml Q15M PRN IV DECREASED GLUCOSE; Start 10/23/16 at 23:30 Dextrose (D50w Syringe) 50 ml Q15M PRN IV DECREASED GLUCOSE; Start 10/23/16 at 23:30 Glucagon (Glucagen) 1 mg Q15M PRN IM DECREASED GLUCOSE; Start 10/23/16 at 23:30 Glucose (Glutose) 15 gm Q15M PRN BUCCAL DECREASED GLUCOSE; Start 10/23/16 at 23 :30 Amlodipine Besylate (Norvasc) 5 mg DAILY PO Last administered on 10/25/16 10: 03; Admin Dose 5 MG; Start 10/24/16 at 09:00 Aspirin (Aspirin) 81 mg DAILY PO Last administered on 10/25/16 10:03; Admin Dose 81 MG; Start 10/24/16 at 09:00 Atorvastatin Calcium (Lipitor) 40 mg QHS PO Last administered on 10/24/16 21: 03; Admin Dose 40 MG; Start 10/24/16 at 21:00 Benzonatate (Tessalon) 100 mg Q6 PO Last administered on 10/25/16 12:28; Admin Dose 100 MG; Start 10/24/16 at 00:00 Cinacalcet (Sensipar) 30 mg DAILY PO Last administered on 10/25/16 10:02; Admin Dose 30 MG; Start 10/24/16 at 09:00 Diltiazem HCl (Cardizem Sr) 60 mg Q12 PO Last administered on 10/25/16 10:04; Admin Dose 60 MG; Start 10/24/16 at 09:00 Furosemide (Lasix) 80 mg DAILY@06 PO Last administered on 10/25/16 05:47; Admin Dose 80 MG; Start 10/24/16 at 06:00 Insulin Detemir (Levemir) 90 unit HS SC ; Start 10/24/16 at 21:00 Montelukast Sodium (Singulair) 10 mg QAM PO Last administered on 10/25/16 10: 02; Admin Dose 10 MG; Start 10/24/16 at 09:00 Oxycodone/ Acetaminophen (Endocet (10/ 325)) 1 tab Q6 PRN PO PRN Last administered on 10/25/16 12:28; Admin Dose 1 TAB; Start 10/23/16 at 23:30 Pyridoxine HCl (Vitamin B6) 50 mg DAILY PO Last administered on 10/25/16 10:04 ; Admin Dose 50 MG; Start 10/24/16 at 09:00 Tiotropium [place] (Spiriva) 1 inh DAILY INH Last administered on 10/25/16 10: 03; Admin Dose 1 INH; Start 10/24/16 at 09:00 Metoprolol Tartrate (Lopressor) 50 mg BID PO Last administered on 10/25/16 10: 02; Admin Dose 50 MG; Start 10/24/16 at 09:00 Losartan Potassium (Cozaar) 50 mg BID PO Last administered on 10/25/16 10:04; Admin Dose 50 MG; Start 10/24/16 at 09:00 Albuterol (Ventolin Hfa) 2 puff Q4H PRN INH WHEEZING AND SOB; Start 10/23/16 at 23:45 Metoclopramide HCl (Reglan) 5 mg Q6 PO Last administered on 10/25/16 12:28; Admin Dose 5 MG; Start 10/24/16 at 00:00 Pantoprazole (Protonix Tab) 40 mg DAILY@06 PO Last administered on 10/25/16 05 :47; Admin Dose 40 MG; Start 10/24/16 at 06:00 Miscellaneous Information (Pending Santyl Order For Wound Care) This patient sexton... PRN PRN XX WOUND CARE; Start 10/24/16 at 05:30 Nicotine (Nicoderm 14 Mg/ 24hr) 1 patch DAILY TRANSDERM Last administered on 10:04; Admin Dose 1 PATCH; Start 10/25/16 at 09:00 Formoterol (Foradil Aerolizer 12mcg/ Actu) 2 inh Q12 INH ; Start 10/25/16 at 09: 00 Vitamin A/Vitamin D (Vitamin A & D Oint) ONE APPLICATION rt thigh BID TOP Last administered on 10/25/16 10:03; Admin Dose 1 APPLIC; Start 10/24/16 at 15:30 Docusate Sodium (Colace) 100 mg BID PO Last administered on 10/25/16 10:02; Admin Dose 100 MG; Start 10/24/16 at 15:30 Lactobacillus Acidophilus/ Rhamnosus (Culturelle) 1 cap BID PO Last administered on 10/25/16 10:03; Admin Dose 1 CAP; Start 10/24/16 at 16:30 Carisoprodol (Soma) 350 mg Q8H PRN PO pain Last administered on 10/25/16 05:47 ; Admin Dose 350 MG; Start 10/24/16 at 21:30 Apixaban (Eliquis) 5 mg BID PO ; Start 10/25/16 at 21:00 Zolpidem Tartrate (Ambien) 5 mg QHS PRN PO INSOMNIA; Start 10/25/16 at 11:00 TODD RAMIRES NP Oct 25, 2016 14:15
[2016-10-25] MEDS ORDERED: VANCOMYCIN IV PER PHARMACY XX SCH (14:30)
[2016-10-25] MEDS ORDERED: VANCOMYCIN 2 GM in SOD CHLORIDE 0.9% 500 ML IVPB SCH (15:30)
[2016-10-25] MEDS: FLUCONAZOLE 100 MG TAB PO SCH (15:50)
[2016-10-25] MEDS: ATORVASTATIN 40 MG TAB PO SCH (20:24)
[2016-10-25] MEDS: INSULIN DETEMIR [LEVEMIR] 3ML CART SC SCH ×2 (20:32→21:00)
[2016-10-25] MEDS: APIXABAN 5 MG TABLET PO SCH (21:00)
[2016-10-25] MEDS ORDERED: LOSARTAN 50 MG TAB PO SCH (21:00)
--- NOTE | 2016-10-25 23:12 | PN ---
Date/Time of Note Date/Time of Note DATE: 10/25/16 TIME: 23:05 Assessment/Plan Lines/Catheters IV Catheter Type (from [facility]): Saline Lock Whitaker in Place (from [facility]): No Assessment/Plan Chief Complaint/Hosp Course VASCULAR SURGERY CONSULTATION Dear Doctors: Ms. Anthony is a 61-year-old female who is an active smoker with a plethora of medical conditions, who presents with a history of bilateral lower extremity wounds. The patient, as of recent, was seen in August and october of this year, in which she presented with a significant left lower extremity thigh wound, status post debridement and wound VAC placement. However, the patient has been noncompliant and has not followed up with us in our office on multiple attempts. At the moment the patient denies worsening of the left thigh wound, that seems to be managed with wound VAC therapy with home health; however, it is unclear, as the patient does not fully compliant. She also mentions that she has a cat at home, in which she has sustained multiple areas of scratching from the cat. Further, the patient has a history of disabling claudication, denies rest pain, and bilateral lower extremity venous insufficiency and recurrent venous stasis ulcers. At the moment, she denies fever, chills, nausea , vomiting, abdominal pain, melena or hematochezia. REVIEW OF SYSTEMS: A 12-point review was performed and negative except for what is mentioned in the HPI. PAST MEDICAL HISTORY: End-stage renal disease, morbidly obese, smoker, hyperlipidemia, coronary artery disease, COPD, atrial fibrillation, CO, on Eliquis. PAST SURGICAL HISTORY: Left upper extremity fistula creations, previous PermCath placement, . ALLERGIES: 1. PENICILLIN. 2. SULFA. 3. CIPRO. FAMILY HISTORY: Diabetes and hypertension. SOCIAL HISTORY: Active smoker. Denies the current use of alcohol. No illicit drug use. PHYSICAL EXAMINATION: GENERAL: Alert and oriented x3, PULMONARY: Clear to auscultation bilaterally CARDIOVASCULAR: S1, S2 present. Irregularly irregular. ABDOMEN: Soft, nontender, nondistended. Bowel sounds positive. Truncal obesity. Large pannus. EXTREMITIES: -Right lower extremity palpable femoral pulse, nonpalpable pedal pulse. Motor and sensory intact. Cap refill 3 to 4 seconds. Edema of 2 to 3+. Presence of lipodermatosclerosis, spider veins, telangiectasias and multiple healed ulcers in the past. -Left lower extremity superficial scabs from injury from a cat. -Left lower extremity palpable femoral pulse, nonpalpable pedal pulse. Motor and sensory intact. Cap refill of 3 to 4 seconds. Edema 2 to 3+. Lateral thigh ulcer measuring 5 x 3 x 2, with necrotic fibrinous tissue. Lower leg with presence of lipodermatosclerosis, multiple healed ulcers on the medial aspect and scabs on her bahena. ASSESSMENT AND PLAN: 1. Bilateral lower extremity atherosclerosis with ulcers and claudication. It seems the patient has a component of mixed arterial and venous disease. Upon her noninvasive vascular studies it was identified the patient has infrapopliteal disease. Further, the patient underwent CT angiography that demonstrates the patient having adequate inflow to her popliteal segments which should allow for adequate wound healing of her lateral thigh ulcer. However, the patient's noncompliance and not following up with visitations has prevented her from improving the status of her wound. -Arrange for home health and the patient to have wound followup with us postoperatively. -Continue with antibiotics as recommended. -Bilateral lower extremity venous insufficiency with ulcers (CEAP classification 6). It seems the patient also has a significant history of venous insufficiency, with on and off venous stasis ulcers. At the moment, the patient will require to undergo venous reflux studies that are done as an outpatient, not as an inpatient, to further delineate her superficial and venous system. -Recommend applying an Antoni wrap from the toes all the way up to her upper thigh , for relieving her edema. -End-stage renal disease: The patient at the moment does not have any issues with her left upper extremity fistula and will plan to continue monitoring her fistula, as she does have some areas of neointimal hyperplasia near the arterial anastomosis. This can be followed as an outpatient and a possible fistulogram if there are any issues during her sessions. -Discussed the findings, plan and management with the patient and she understands. -Thank you for allowing us to partake in the care of your patient. Please call with any questions. Problems: Exam/Review of Systems Vital Signs Vitals Vital Signs Date Time Temp Pulse Resp B/P Pulse Ox O2 Delivery O2 Flow Rate FiO2 10/25/16 20:06 97.8 60 18 92/60 97 10/23/16 21:20 Room Air Intake and Output 10/24/16 10/24/16 10/25/16 15:00 23:00 07:00 Intake Total 300 ml 350 ml 650 ml Output Total 1300 ml 1 ml Balance -1000 ml 349 ml 650 ml Results Result Diagram: 10/25/16 0530 10/25/16 0530 MAYLIN BROWN MD Oct 25, 2016 23:11
[2016-10-26] VITALS (18 sets, daily range): BP systolic 104–133; BP diastolic 45–71; PULSE 90–132; RESP 15–20
[2016-10-26] MEDS: ZOLPIDEM 5 MG TAB PO PRN (00:06)
[2016-10-26] MEDS: BENZONATATE 100 MG CAP PO SCH ×5 (00:10→23:09)
[2016-10-26] MEDS: METOCLOPRAMIDE 5 MG TAB PO SCH ×5 (00:10→23:09)
[2016-10-26] MEDS: ACCU-CHEK XX SCH (02:00)
[2016-10-26] MEDS: OXYCODONE/ACETAMINOPHEN (10/325) TAB PO PRN ×3 (03:22→23:09)
[2016-10-26] MEDS: PANTOPRAZOLE (EC) 40 MG TAB PO SCH (05:34)
[2016-10-26] MEDS: FUROSEMIDE 40 MG TAB PO SCH (05:36)
[2016-10-26] MEDS: INSULIN ASPART [NOVOLOG] 3 ML PEN SC SCH ×5 (07:55→21:00)
[2016-10-26] MEDS: METOPROLOL 50 MG TAB PO SCH ×2 (09:00→21:00)
[2016-10-26] MEDS: FORMOTEROL INH SCH ×2 (09:00→21:00)
[2016-10-26] MEDS: [UNRECOGNIZED DRUG - OTHER] INH SCH ×2 (09:00→21:00)
[2016-10-26] MEDS: DILTIAZEM (SR) 60 MG CAP PO SCH ×4 (09:00→21:03)
[2016-10-26] MEDS: AMLODIPINE 5 MG TAB PO SCH (09:00)
[2016-10-26] MEDS: CALCIUM ACETATE 667 MG CAP PO SCH ×3 (09:02→18:01)
[2016-10-26] MEDS: CARISOPRODOL 350 MG TAB PO PRN ×2 (09:03→21:07)
[2016-10-26] MEDS: MONTELUKAST 10 MG TAB PO SCH (09:03)
[2016-10-26] MEDS: TIOTROPIUM 18 MCG CAPSULE INHA DEV INH SCH (09:03)
[2016-10-26] MEDS: APIXABAN 5 MG TABLET PO SCH ×2 (09:03→21:05)
[2016-10-26] MEDS: CINACALCET 30 MG TAB PO SCH (09:03)
[2016-10-26] MEDS: ASPIRIN 81 MG TAB PO SCH (09:03)
[2016-10-26] MEDS: NICOTINE (14 MG/24 HR) PATCH TRANSDERM SCH (09:03)
[2016-10-26] MEDS: FLUCONAZOLE 100 MG TAB PO SCH (09:03)
[2016-10-26] MEDS: DOCUSATE SODIUM 100 MG CAP PO SCH ×2 (09:03→21:05)
[2016-10-26] MEDS: LACTOBACILLUS RHAMNOSUS CAP PO SCH ×2 (09:03→21:05)
[2016-10-26] MEDS: VITAMIN A & D 5 GM OINT PACKET TOP SCH ×2 (09:03→21:06)
[2016-10-26] MEDS: PYRIDOXINE 50 MG TAB PO SCH (09:03)
[2016-10-26] MEDS: LOSARTAN 50 MG TAB PO SCH (09:05)
--- NOTE | 2016-10-26 09:55 | RADRPT ---
Echocardiogram Report Patient Name: MALA HOLMAN Gender: Female Date: 1955 Study Date: 25-Oct-2016 Pony Ride Operator: Silvia Lam [facility] Location: [id number] Ref. Physician: LUIS E DUFFY Quality: Adequate Procedures: Transthoracic echocardiogram with complete 2D, M-Mode, and doppler examination. Indications: LE swelling. 2D/M Mode Doppler Measurement Value Normal Ranges Measurement Value Normal Ranges LVIDd 2D 4.5 3.5 - 5.6 cm AV Peak Lamonte 1.6 m/sec LVIDs 2D 2.3 2.1 - 4.1 cm AV Peak PG 10.0 mmHg FS 2D 48.4 % LVOT Peak Lamonte 1.0 m/sec LVPWd 2D 1.2 0.6 - 1.1 cm LVOT Peak PG 4.0 mmHg IVSd 2D 1.3 0.6 - 1.1 cm MV E Peak Lamonte 1.5 m/sec IVS/LVPW 2D 1.0 MV Decel Time 306 msec AoR Diam 2D 2.7 2.0 - 3.7 cm TR Peak Lamonte 3.2 m/sec LA/Ao 2D 2 0 - 1 TR Peak PG 41.0 mmHg EDV 2D 91.1 cm3 RVSP 56.0 mmHg ESV 2D 12.5 cm3 LA Dimen 2D 4.6 2.3 - 4.0 cm Findings Left Ventricle: Normal left ventricular systolic function. Normal left ventricular cavity size. Moderate concentric left ventricular hypertrophy. Ejection fraction is visually estimated at 60 %. Right Ventricle: Normal right ventricular size. Normal right ventricular systolic function. Left Atrium: There is moderate enlargement of left atrium. Right Atrium: The right atrium is normal in size. Mitral Valve: Mild mitral leaflet calcification. Moderate mitral annular calcification. Trace mitral regurgitation. Aortic Valve: No significant aortic stenosis or insufficiency. Aortic cusps appear mildly calcified. Tricuspid Valve: Normal appearance of the tricuspid valve. Estimated peak PA systolic pressure 56 mmHg. There is mild tricuspid regurgitation. Pulmonic Valve: Normal pulmonic valve appearance. Pericardium: Normal pericardium with no significant pericardial effusion. Aorta: Normal aortic root. IVC: Dilated IVC without respiratory collapse consistent with elevated right atrial pressure. Conclusions 1.Normal left ventricular systolic function. Normal left ventricular cavity size. Moderate concentric left ventricular hypertrophy. Ejection fraction is visually estimated at 60 %. 2.There is moderate enlargement of left atrium. 3.Mild mitral leaflet calcification. Moderate mitral annular calcification. Trace mitral regurgitation. 4.No significant aortic stenosis or insufficiency. Aortic cusps appear mildly calcified. 5.Normal appearance of the tricuspid valve. Estimated peak PA systolic pressure 56 mmHg. There is mild tricuspid regurgitation. 6.Dilated IVC without respiratory collapse consistent with elevated right atrial pressure. Electronically Signed By: Krystian Grider 26-Oct-2016 09:53:25 -0700 Patient Name: MALA HOLMAN Study Date: 25-Oct-2016 [id number]
--- NOTE | 2016-10-26 10:38 | PN ---
Date/Time of Note Date/Time of Note DATE: 10/26/16 TIME: 10:37 Assessment/Plan VTE Prophylaxis VTE Prophylaxis Intervention: other (eliquis) Lines/Catheters IV Catheter Type (from Nrsg): Saline Lock Urinary Cath still in place: No Assessment/Plan Assessment/Plan 61 yo F with pmhx ESRD on HD, DM2, obesity, HTN, admitted for nausea/vomiting thought to be due to a missed HD session. Pt previously discharged 6.7 after a stay for a LE wound. #ESRD with recent missed HD session: nephrology following, appreciate HD assistance #discharge planning: PT/OT/sw refs placed #LLE wound with wound vac: cont wound vac abx as per ID #AFib: cont ATC #HTN: cont home meds #HL: cont statin ?chronic pain: cont home soma Prophx: full ATC with eliquis Subjective 24 Hr Interval Summary Free Text/Dictation Pt a little sleepy today during HD Exam/Review of Systems Vital Signs Vitals Vital Signs Date Time Temp Pulse Resp B/P Pulse Ox O2 Delivery O2 Flow Rate FiO2 10/26/16 09:30 127 10/26/16 08:00 16 10/26/16 07:53 98.1 119/69 88 10/23/16 21:20 Room Air Intake and Output 10/25/16 10/25/16 10/26/16 15:00 23:00 07:00 Intake Total 700 ml 450 ml Balance 700 ml 450 ml Exam no mrg lungs clear abd soft wound vac to L upper thigh with serosang drainage no rashes Results Result Diagram: 10/25/16 0530 10/25/16 0530 Results 24 hrs Laboratory Tests Test 10/25/16 11:58 10/25/16 17:57 10/25/16 20:28 10/26/16 08:21 Bedside Glucose 141 172 162 124 Medications Medications Current Medications Insulin Detemir (Levemir) 90 unit DAILY@20 SC Last administered on 10/25/16 20 :32; Admin Dose 90 UNIT; Start 10/24/16 at 20:00 Diagnostic Test (Pha) (Accu-Chek) 1 ea 02 XX Last administered on 10/25/16 02: 48; Admin Dose 1 EA; Start 10/24/16 at 02:00 Acetaminophen (Tylenol Tab) 650 mg Q6H PRN PO PAIN AND OR ELEVATED TEMP; Start 10/23/16 at 23:00 Miscellaneous Information 1 ea NOTE XX ; Start 10/23/16 at 23:30 Glucose (Glutose) 15 gm Q15M PRN PO DECREASED GLUCOSE; Start 10/23/16 at 23:30 Glucose (Glutose) 22.5 gm Q15M PRN PO DECREASED GLUCOSE; Start 10/23/16 at 23: 30 Dextrose (D50w Syringe) 25 ml Q15M PRN IV DECREASED GLUCOSE; Start 10/23/16 at 23:30 Dextrose (D50w Syringe) 50 ml Q15M PRN IV DECREASED GLUCOSE; Start 10/23/16 at 23:30 Glucagon (Glucagen) 1 mg Q15M PRN IM DECREASED GLUCOSE; Start 10/23/16 at 23:30 Glucose (Glutose) 15 gm Q15M PRN BUCCAL DECREASED GLUCOSE; Start 10/23/16 at 23 :30 Amlodipine Besylate (Norvasc) 5 mg DAILY PO Last administered on 10/25/16 10: 03; Admin Dose 5 MG; Start 10/24/16 at 09:00 Aspirin (Aspirin) 81 mg DAILY PO Last administered on 10/26/16 09:03; Admin Dose 81 MG; Start 10/24/16 at 09:00 Atorvastatin Calcium (Lipitor) 40 mg QHS PO Last administered on 10/25/16 20: 24; Admin Dose 40 MG; Start 10/24/16 at 21:00 Benzonatate (Tessalon) 100 mg Q6 PO Last administered on 10/26/16 05:34; Admin Dose 100 MG; Start 10/24/16 at 00:00 Cinacalcet (Sensipar) 30 mg DAILY PO Last administered on 10/26/16 09:03; Admin Dose 30 MG; Start 10/24/16 at 09:00 Diltiazem HCl (Cardizem Sr) 60 mg Q12 PO Last administered on 10/25/16 10:04; Admin Dose 60 MG; Start 10/24/16 at 09:00 Furosemide (Lasix) 80 mg DAILY@06 PO Last administered on 10/26/16 05:36; Admin Dose 80 MG; Start 10/24/16 at 06:00 Insulin Detemir (Levemir) 90 unit HS SC Last administered on 10/25/16 21:00; Admin Dose 90 UNIT; Start 10/24/16 at 21:00 Montelukast Sodium (Singulair) 10 mg QAM PO Last administered on 10/26/16 09: 03; Admin Dose 10 MG; Start 10/24/16 at 09:00 Oxycodone/ Acetaminophen (Endocet (10/ 325)) 1 tab Q6 PRN PO PRN Last administered on 10/26/16 03:22; Admin Dose 1 TAB; Start 10/23/16 at 23:30 Pyridoxine HCl (Vitamin B6) 50 mg DAILY PO Last administered on 10/26/16 09:03 ; Admin Dose 50 MG; Start 10/24/16 at 09:00 Tiotropium [place] (Spiriva) 1 inh DAILY INH Last administered on 10/26/16 09: 03; Admin Dose 1 INH; Start 10/24/16 at 09:00 Metoprolol Tartrate (Lopressor) 50 mg BID PO Last administered on 10/25/16 10: 02; Admin Dose 50 MG; Start 10/24/16 at 09:00 Albuterol (Ventolin Hfa) 2 puff Q4H PRN INH WHEEZING AND SOB; Start 10/23/16 at 23:45 Metoclopramide HCl (Reglan) 5 mg Q6 PO Last administered on 10/26/16 05:34; Admin Dose 5 MG; Start 10/24/16 at 00:00 Pantoprazole (Protonix Tab) 40 mg DAILY@06 PO Last administered on 10/26/16 05 :34; Admin Dose 40 MG; Start 10/24/16 at 06:00 Miscellaneous Information (Pending [facility] Order For Wound Care) This patient sexton... PRN PRN XX WOUND CARE; Start 10/24/16 at 05:30 Nicotine (Nicoderm 14 Mg/ 24hr) 1 patch DAILY TRANSDERM Last administered on 09:03; Admin Dose 1 PATCH; Start 10/25/16 at 09:00 Formoterol (Foradil Aerolizer 12mcg/ Actu) 2 inh Q12 INH ; Start 10/25/16 at 09: 00 Vitamin A/Vitamin D (Vitamin A & D Oint) ONE APPLICATION rt thigh BID TOP Last administered on 10/26/16 09:03; Admin Dose 1 APPLIC; Start 10/24/16 at 15:30 Docusate Sodium (Colace) 100 mg BID PO Last administered on 10/26/16 09:03; Admin Dose 100 MG; Start 10/24/16 at 15:30 Lactobacillus Acidophilus/ Rhamnosus (Culturelle) 1 cap BID PO Last administered on 10/26/16 09:03; Admin Dose 1 CAP; Start 10/24/16 at 16:30 Carisoprodol (Soma) 350 mg Q8H PRN PO pain Last administered on 10/26/16 09:03 ; Admin Dose 350 MG; Start 10/24/16 at 21:30 Apixaban (Eliquis) 5 mg BID PO Last administered on 10/26/16 09:03; Admin Dose 5 MG; Start 10/25/16 at 21:00 Zolpidem Tartrate (Ambien) 5 mg QHS PRN PO INSOMNIA Last administered on 00:06; Admin Dose 5 MG; Start 10/25/16 at 11:00 Fluconazole (Diflucan) 100 mg DAILY PO Last administered on 10/26/16 09:03; Admin Dose 100 MG; Start 10/25/16 at 14:30 Losartan Potassium (Cozaar) 100 mg DAILY PO ; Start 10/26/16 at 10:00 LUIS E DUFFY MD Oct 26, 2016 10:38
--- NOTE | 2016-10-26 14:03 | CONS ---
Date/Time of Note Date/Time of Note DATE: 10/26/16 TIME: 14:01 Assessment/Plan Assessment/Plan Chief Complaint/Hosp Course SUBJECTIVE: No events, no fevers, nad Abx: Vanco, Diflucan Micro: previous wound cx grew Enterococcus/Corynebacterium/Giselle parapsilosis PHYSICAL EXAMINATION: GENERAL: Morbidly obese, well-developed, elderly woman who is in no distress. HEENT: Head atraumatic, normocephalic. Sclerae anicteric. Buccal mucosa dry. NECK: Supple. CHEST: Rise symmetrical. Breath sounds clear. HEART: S1, S2. ABDOMEN: Soft, bowel sounds present. EXTREMITIES: Without cyanosis. Left upper thigh wound vac present ASSESSMENT: 1. Bilateral lower extremities chronic venous stasis with left hip wound, s/p debridement and wound vac application 10/19/16. 2. End-stage renal disease, on hemodialysis. 3. Left upper extremity arteriovenous fistula. 4. Obesity. 5. Atrial fibrillation. PLAN: Remains stable, continue abx, f/u vascular team rec-s, will give a dose of Gentamicin for GNR growing in her urine DW staff Problems: Consultation Date/Type/Reason Admit Date/Time Oct 24, 2016 at 12:02 Initial Consult Date 10/23/16 Type of Consultation: id Exam/Review of Systems Vital Signs Vitals Vital Signs Date Time Temp Pulse Resp B/P Pulse Ox O2 Delivery O2 Flow Rate FiO2 10/26/16 12:00 125 10/26/16 11:41 113/58 10/26/16 10:58 98.0 20 93 10/23/16 21:20 Room Air Intake and Output 10/25/16 10/25/16 10/26/16 15:00 23:00 07:00 Intake Total 700 ml 450 ml Balance 700 ml 450 ml Results Result Diagram: 10/25/16 0530 10/25/16 0530 Results 24 hrs Laboratory Tests Test 10/25/16 17:57 10/25/16 20:28 10/26/16 08:21 10/26/16 11:47 Bedside Glucose 172 162 124 168 Medications Medications Current Medications Insulin Detemir (Levemir) 90 unit DAILY@20 SC Last administered on 10/25/16t 20 :32; Admin Dose 90 UNIT; Start 10/24/16 at 20:00 Diagnostic Test (Pha) (Accu-Chek) 1 ea 02 XX Last administered on 10/25/16 02: 48; Admin Dose 1 EA; Start 10/24/16 at 02:00 Acetaminophen (Tylenol Tab) 650 mg Q6H PRN PO PAIN AND OR ELEVATED TEMP; Start 10/23/16 at 23:00 Miscellaneous Information 1 ea NOTE XX ; Start 10/23/16 at 23:30 Glucose (Glutose) 15 gm Q15M PRN PO DECREASED GLUCOSE; Start 10/23/16 at 23:30 Glucose (Glutose) 22.5 gm Q15M PRN PO DECREASED GLUCOSE; Start 10/23/16 at 23: 30 Dextrose (D50w Syringe) 25 ml Q15M PRN IV DECREASED GLUCOSE; Start 10/23/16 at 23:30 Dextrose (D50w Syringe) 50 ml Q15M PRN IV DECREASED GLUCOSE; Start 10/23/16 at 23:30 Glucagon (Glucagen) 1 mg Q15M PRN IM DECREASED GLUCOSE; Start 10/23/16 at 23:30 Glucose (Glutose) 15 gm Q15M PRN BUCCAL DECREASED GLUCOSE; Start 10/23/16 at 23 :30 Amlodipine Besylate (Norvasc) 5 mg DAILY PO Last administered on 10/25/16 10: 03; Admin Dose 5 MG; Start 10/24/16 at 09:00 Aspirin (Aspirin) 81 mg DAILY PO Last administered on 10/26/16 09:03; Admin Dose 81 MG; Start 10/24/16 at 09:00 Atorvastatin Calcium (Lipitor) 40 mg QHS PO Last administered on 10/25/16 20: 24; Admin Dose 40 MG; Start 10/24/16 at 21:00 Benzonatate (Tessalon) 100 mg Q6 PO Last administered on 10/26/16 12:39; Admin Dose 100 MG; Start 10/24/16 at 00:00 Cinacalcet (Sensipar) 30 mg DAILY PO Last administered on 10/26/16 09:03; Admin Dose 30 MG; Start 10/24/16 at 09:00 Diltiazem HCl (Cardizem Sr) 60 mg Q12 PO Last administered on 10/26/16 11:45; Admin Dose 60 MG; Start 10/24/16 at 09:00 Furosemide (Lasix) 80 mg DAILY@06 PO Last administered on 10/26/16 05:36; Admin Dose 80 MG; Start 10/24/16 at 06:00 Insulin Detemir (Levemir) 90 unit HS SC Last administered on 10/25/16 21:00; Admin Dose 90 UNIT; Start 10/24/16 at 21:00 Montelukast Sodium (Singulair) 10 mg QAM PO Last administered on 10/26/16 09: 03; Admin Dose 10 MG; Start 10/24/16 at 09:00 Oxycodone/ Acetaminophen (Endocet (10 325)) 1 tab Q6 PRN PO PRN Last administered on 10/26/16 03:22; Admin Dose 1 TAB; Start 10/23/16 at 23:30 Pyridoxine HCl (Vitamin B6) 50 mg DAILY PO Last administered on 10/26/16 09:03 ; Admin Dose 50 MG; Start 10/24/16 at 09:00 Tiotropium [place] (Spiriva) 1 inh DAILY INH Last administered on 10/26/16 09: 03; Admin Dose 1 INH; Start 10/24/16 at 09:00 Metoprolol Tartrate (Lopressor) 50 mg BID PO Last administered on 10/25/16 10: 02; Admin Dose 50 MG; Start 10/24/16 at 09:00 Albuterol (Ventolin Hfa) 2 puff Q4H PRN INH WHEEZING AND SOB; Start 10/23/16 at 23:45 Metoclopramide HCl (Reglan) 5 mg Q6 PO Last administered on 10/26/16 12:39; Admin Dose 5 MG; Start 10/24/16 at 00:00 Pantoprazole (Protonix Tab) 40 mg DAILY@06 PO Last administered on 10/26/16 05 :34; Admin Dose 40 MG; Start 10/24/16 at 06:00 [facility] This patient sexton... PRN PRN XX WOUND CARE; Start 10/24/16 at 05:30 Nicotine (Nicoderm 14 Mg/ 24hr) 1 patch DAILY TRANSDERM Last administered on 09:03; Admin Dose 1 PATCH; Start 10/25/16 at 09:00 Formoterol (Foradil Aerolizer 12mcg/ Actu) 2 inh Q12 INH ; Start 10/25/16 at 09: 00 Vitamin A/Vitamin D (Vitamin A & D Oint) ONE APPLICATION rt thigh BID TOP Last administered on 10/26/16 09:03; Admin Dose 1 APPLIC; Start 10/24/16 at 15:30 Docusate Sodium (Colace) 100 mg BID PO Last administered on 10/26/16 09:03; Admin Dose 100 MG; Start 10/24/16 at 15:30 Lactobacillus Acidophilus/ Rhamnosus (Culturelle) 1 cap BID PO Last administered on 10/26/16 09:03; Admin Dose 1 CAP; Start 10/24/16 at 16:30 Carisoprodol (Soma) 350 mg Q8H PRN PO pain Last administered on 10/26/16 09:03 ; Admin Dose 350 MG; Start 10/24/16 at 21:30 Apixaban (Eliquis) 5 mg BID PO Last administered on 10/26/16 09:03; Admin Dose 5 MG; Start 10/25/16 at 21:00 Zolpidem Tartrate (Ambien) 5 mg QHS PRN PO INSOMNIA Last administered on 00:06; Admin Dose 5 MG; Start 10/25/16 at 11:00 Fluconazole (Diflucan) 100 mg DAILY PO Last administered on 10/26/16 09:03; Admin Dose 100 MG; Start 10/25/16 at 14:30 Losartan Potassium 100 mg 100 mg DAILY PO ; Start 10/26/16 at 10:00 Vancomycin HCl (Vancocin) 250 ml @ 125 mls/hr Q72H IVPB ; Start 10/27/16 at 16: 00 TODD RAMIRES NP Oct 26, 2016 14:03
[2016-10-26] MEDS ORDERED: GENTAMICIN IV ONE (16:00)
[2016-10-26] MEDS ORDERED: SOD CHLORIDE 0.9% IV ONE (16:00)
[2016-10-26] MEDS ORDERED: GENTAMICIN 150 MG in SOD CHLORIDE 0.9% 100 ML IVPB ONE (17:00)
[2016-10-26] MEDS: ATORVASTATIN 40 MG TAB PO SCH (21:05)
[2016-10-26] MEDS: INSULIN DETEMIR [LEVEMIR] 3ML CART SC SCH (21:22)
[2016-10-27] VITALS (13 sets, daily range): BP systolic 79–123; BP diastolic 43–75; PULSE 60–124; RESP 15–20
[2016-10-27] MEDS: ACCU-CHEK XX SCH (01:10)
[2016-10-27] MEDS: ZOLPIDEM 5 MG TAB PO PRN (01:15)
[2016-10-27] MEDS: ACETAMINOPHEN 325 MG TAB PO PRN (01:17)
[2016-10-27] MEDS: FUROSEMIDE 40 MG TAB PO SCH (06:00)
[2016-10-27] MEDS: METOCLOPRAMIDE 5 MG TAB PO SCH ×4 (06:13→23:56)
[2016-10-27] MEDS: BENZONATATE 100 MG CAP PO SCH ×4 (06:13→23:55)
[2016-10-27] MEDS: PANTOPRAZOLE (EC) 40 MG TAB PO SCH (06:13)
[2016-10-27] MEDS: OXYCODONE/ACETAMINOPHEN (10/325) TAB PO PRN ×3 (06:24→21:54)
[2016-10-27] MEDS: INSULIN ASPART [NOVOLOG] 3 ML PEN SC SCH ×7 (07:55→20:15)
[2016-10-27] MEDS: DOCUSATE SODIUM 100 MG CAP PO SCH ×2 (08:42→20:08)
[2016-10-27] MEDS: PYRIDOXINE 50 MG TAB PO SCH (08:42)
[2016-10-27] MEDS: CALCIUM ACETATE 667 MG CAP PO SCH ×3 (08:42→18:19)
[2016-10-27] MEDS: FLUCONAZOLE 100 MG TAB PO SCH (08:43)
[2016-10-27] MEDS: AMLODIPINE 5 MG TAB PO SCH (08:43)
[2016-10-27] MEDS: LOSARTAN 50 MG TAB PO SCH (08:44)
[2016-10-27] MEDS: ASPIRIN 81 MG TAB PO SCH (08:44)
[2016-10-27] MEDS: DILTIAZEM (SR) 60 MG CAP PO SCH ×2 (08:44→20:14)
[2016-10-27] MEDS: APIXABAN 5 MG TABLET PO SCH ×2 (08:45→20:08)
[2016-10-27] MEDS: METOPROLOL 50 MG TAB PO SCH ×2 (08:45→20:15)
[2016-10-27] MEDS: TIOTROPIUM 18 MCG CAPSULE INHA DEV INH SCH (08:45)
[2016-10-27] MEDS: LACTOBACILLUS RHAMNOSUS CAP PO SCH ×2 (08:45→20:08)
[2016-10-27] MEDS: CINACALCET 30 MG TAB PO SCH (08:45)
[2016-10-27] MEDS: FORMOTEROL INH SCH (08:46)
[2016-10-27] MEDS: [UNRECOGNIZED DRUG - OTHER] INH SCH (08:46)
[2016-10-27] MEDS: NICOTINE (14 MG/24 HR) PATCH TRANSDERM SCH (08:47)
[2016-10-27] MEDS: VITAMIN A & D 5 GM OINT PACKET TOP SCH ×2 (08:49→21:55)
[2016-10-27] MEDS: MONTELUKAST 10 MG TAB PO SCH (09:15)
[2016-10-27] MEDS: CARISOPRODOL 350 MG TAB PO PRN (09:27)
[2016-10-27] MEDS: SALMETEROL/FLUTICASONE 250/50 INHA INH SCH ×2 (12:28→20:07)
--- NOTE | 2016-10-27 14:21 | CONS ---
Date/Time of Note Date/Time of Note DATE: 10/27/16 TIME: 14:20 Assessment/Plan Assessment/Plan Chief Complaint/Hosp Course SUBJECTIVE: No events, weak and sleepy, no fevers, nad Abx: Vanco, Diflucan Micro: previous wound cx grew Enterococcus/Corynebacterium/Giselle parapsilosis PHYSICAL EXAMINATION: GENERAL: Morbidly obese, well-developed, elderly woman who is in no distress. HEENT: Head atraumatic, normocephalic. Sclerae anicteric. Buccal mucosa dry. NECK: Supple. CHEST: Rise symmetrical. Breath sounds clear. HEART: S1, S2. ABDOMEN: Soft, bowel sounds present. EXTREMITIES: Without cyanosis. Left upper thigh wound vac present ASSESSMENT: 1. Bilateral lower extremities chronic venous stasis with left hip wound, s/p debridement and wound vac application 10/19/16. 2. End-stage renal disease, on hemodialysis. 3. Left upper extremity arteriovenous fistula. 4. Obesity. 5. Atrial fibrillation. PLAN: Remains stable, s/p Gentamicin dose 10/26/16, continue abx, local wound care per vascular rec-s, f/u cxr DW staff Problems: Consultation Date/Type/Reason Admit Date/Time Oct 24, 2016 at 12:02 Initial Consult Date 10/23/16 Type of Consultation: id Exam/Review of Systems Vital Signs Vitals Vital Signs Date Time Temp Pulse Resp B/P Pulse Ox O2 Delivery O2 Flow Rate FiO2 10/27/16 12:20 69 10/27/16 11:16 97.8 18 88/44 92 10/23/16 21:20 Room Air Intake and Output 10/26/16 10/26/16 10/27/16 15:00 23:00 07:00 Intake Total 353.75 ml 230 ml Balance 353.75 ml 230 ml Results Result Diagram: 10/25/16 0530 10/25/16 0530 Results 24 hrs Laboratory Tests Test 10/26/16 18:00 10/26/16 21:14 10/27/16 08:39 10/27/16 12:05 Bedside Glucose 190 170 170 176 Medications Medications Current Medications Acetaminophen (Tylenol Tab) 650 mg Q6H PRN PO PAIN AND OR ELEVATED TEMP Last administered on 10/27/16t 01:17; Admin Dose 650 MG; Start 10/23/16 at 23:00 Miscellaneous Information 1 ea NOTE XX ; Start 10/23/16 at 23:30 Glucose (Glutose) 15 gm Q15M PRN PO DECREASED GLUCOSE; Start 10/23/16 at 23:30 Glucose (Glutose) 22.5 gm Q15M PRN PO DECREASED GLUCOSE; Start 10/23/16 at 23: 30 Dextrose (D50w Syringe) 25 ml Q15M PRN IV DECREASED GLUCOSE; Start 10/23/16 at 23:30 Dextrose (D50w Syringe) 50 ml Q15M PRN IV DECREASED GLUCOSE; Start 10/23/16 at 23:30 Glucagon (Glucagen) 1 mg Q15M PRN IM DECREASED GLUCOSE; Start 10/23/16 at 23:30 Glucose (Glutose) 15 gm Q15M PRN BUCCAL DECREASED GLUCOSE; Start 10/23/16 at 23 :30 Amlodipine Besylate (Norvasc) 5 mg DAILY PO Last administered on 10/27/16 08: 43; Admin Dose 5 MG; Start 10/24/16 at 09:00 Aspirin (Aspirin) 81 mg DAILY PO Last administered on 10/27/16 08:44; Admin Dose 81 MG; Start 10/24/16 at 09:00 Atorvastatin Calcium (Lipitor) 40 mg QHS PO Last administered on 10/26/16 21: 05; Admin Dose 40 MG; Start 10/24/16 at 21:00 Benzonatate (Tessalon) 100 mg Q6 PO Last administered on 10/27/16 12:29; Admin Dose 100 MG; Start 10/24/16 at 00:00 Cinacalcet (Sensipar) 30 mg DAILY PO Last administered on 10/27/16 08:45; Admin Dose 30 MG; Start 10/24/16 at 09:00 Diltiazem HCl (Cardizem Sr) 60 mg Q12 PO Last administered on 10/27/16 08:44; Admin Dose 60 MG; Start 10/24/16 at 09:00 Furosemide (Lasix) 80 mg DAILY@06 PO Last administered on 10/26/16 05:36; Admin Dose 80 MG; Start 10/24/16 at 06:00 Montelukast Sodium (Singulair) 10 mg QAM PO Last administered on 10/27/16 09: 15; Admin Dose 10 MG; Start 10/24/16 at 09:00 Oxycodone/ Acetaminophen (Endocet (10/ 325)) 1 tab Q6 PRN PO PRN Last administered on 10/27/16 06:24; Admin Dose 1 TAB; Start 10/23/16 at 23:30 Pyridoxine HCl (Vitamin B6) 50 mg DAILY PO Last administered on 10/27/16 08:42 ; Admin Dose 50 MG; Start 10/24/16 at 09:00 Tiotropium [place] (Spiriva) 1 inh DAILY INH Last administered on 10/27/16 08: 45; Admin Dose 1 INH; Start 10/24/16 at 09:00 Metoprolol Tartrate (Lopressor) 50 mg BID PO Last administered on 10/27/16 08: 45; Admin Dose 50 MG; Start 10/24/16 at 09:00 Albuterol (Ventolin Hfa) 2 puff Q4H PRN INH WHEEZING AND SOB; Start 10/23/16 at 23:45 Metoclopramide HCl (Reglan) 5 mg Q6 PO Last administered on 10/27/16 12:29; Admin Dose 5 MG; Start 10/24/16 at 00:00 Pantoprazole (Protonix Tab) 40 mg DAILY@06 PO Last administered on 10/27/16 06 :13; Admin Dose 40 MG; Start 10/24/16 at 06:00 [facility] This patient sexton... PRN PRN XX WOUND CARE; Start 10/24/16 at 05:30 Nicotine (Nicoderm 14 Mg/ 24hr) 1 patch DAILY TRANSDERM Last administered on 08:47; Admin Dose 1 PATCH; Start 10/25/16 at 09:00 Vitamin A/Vitamin D (Vitamin A & D Oint) ONE APPLICATION rt thigh BID TOP Last administered on 10/27/16 08:49; Admin Dose 1 APPLIC; Start 10/24/16 at 15:30 Docusate Sodium (Colace) 100 mg BID PO Last administered on 10/27/16 08:42; Admin Dose 100 MG; Start 10/24/16 at 15:30 Lactobacillus Acidophilus/ Rhamnosus (Culturelle) 1 cap BID PO Last administered on 10/27/16 08:45; Admin Dose 1 CAP; Start 10/24/16 at 16:30 Carisoprodol (Soma) 350 mg Q8H PRN PO pain Last administered on 10/27/16 09:27 ; Admin Dose 350 MG; Start 10/24/16 at 21:30 Apixaban (Eliquis) 5 mg BID PO Last administered on 10/27/16 08:45; Admin Dose 5 MG; Start 10/25/16 at 21:00 Zolpidem Tartrate (Ambien) 5 mg QHS PRN PO INSOMNIA Last administered on 01:15; Admin Dose 5 MG; Start 10/25/16 at 11:00 Fluconazole (Diflucan) 100 mg DAILY PO Last administered on 10/27/16 08:43; Admin Dose 100 MG; Start 10/25/16 at 14:30 Losartan Potassium 100 mg 100 mg DAILY PO Last administered on 10/27/16 08:44 ; Admin Dose 100 MG; Start 10/26/16 at 10:00 Vancomycin HCl (Vancocin) 250 ml @ 125 mls/hr Q72H IVPB ; Start 10/27/16 at 16: 00 Insulin Detemir (Levemir) 45 unit DAILY@20 SC Last administered on 10/26/16 21 :22; Admin Dose 45 UNIT; Start 10/26/16 at 20:00 Diagnostic Test (Pha) (Accu-Chek) 1 ea 02 XX ; Start 10/27/16 at 02:00 Salmeterol Xinafoate/ Fluticasone (Advair 250/50 Diskus) 1 inh BID INH Last administered on 10/27/16 12:28; Admin Dose 1 INH; Start 10/27/16 at 12:00 TODD RAMIRES NP Oct 27, 2016 14:21
[2016-10-27] MEDS: LIDOCAINE 5% 35 GM OINT TOP PRN ×2 (15:56→19:47)
[2016-10-27] MEDS: VANCOMYCIN 1 GM in NS 250 ML IVPB SCH (16:12)
--- NOTE | 2016-10-27 17:20 | PN ---
Date/Time of Note Date/Time of Note DATE: 10/27/16 TIME: 17:19 Assessment/Plan VTE Prophylaxis VTE Prophylaxis Intervention: other (full ATC) Lines/Catheters IV Catheter Type (from Nrsg): Saline Lock Urinary Cath still in place: No Assessment/Plan Assessment/Plan 61 yo F with pmhx ESRD on HD, DM2, obesity, HTN, admitted for nausea/vomiting thought to be due to a missed HD session. Pt previously discharged 6.7 after a stay for a LE wound. #ESRD with recent missed HD session: nephrology following, appreciate HD assistance #discharge planning: PT/OT/sw refs placed #LLE wound with wound vac: cont wound vac abx as per ID #AFib: cont ATC #HTN: cont home meds #HL: cont statin ?chronic pain: cont home soma Prophx: full ATC with eliquis Subjective 24 Hr Interval Summary Free Text/Dictation Pt sleeping at time of my evaluation this AM Exam/Review of Systems Vital Signs Vitals Vital Signs Date Time Temp Pulse Resp B/P Pulse Ox O2 Delivery O2 Flow Rate FiO2 10/27/16 16:49 60 10/27/16 15:33 97.8 20 79/43 93 10/23/16 21:20 Room Air Intake and Output 10/26/16 10/26/16 10/27/16 15:00 23:00 07:00 Intake Total 353.75 ml 230 ml Balance 353.75 ml 230 ml Exam sleeping, nad no mrg lungs clear abd soft wound vac site c/d/i Results Result Diagram: 10/25/16 0530 10/25/16 0530 Results 24 hrs Laboratory Tests Test 10/26/16 18:00 10/26/16 21:14 10/27/16 08:39 10/27/16 12:05 Bedside Glucose 190 170 170 176 Test 10/27/16 16:25 Bedside Glucose 79 Medications Medications Current Medications Acetaminophen (Tylenol Tab) 650 mg Q6H PRN PO PAIN AND OR ELEVATED TEMP Last administered on 10/27/16t 01:17; Admin Dose 650 MG; Start 10/23/16 at 23:00 Miscellaneous Information 1 ea NOTE XX ; Start 10/23/16 at 23:30 Glucose (Glutose) 15 gm Q15M PRN PO DECREASED GLUCOSE; Start 10/23/16 at 23:30 Glucose (Glutose) 22.5 gm Q15M PRN PO DECREASED GLUCOSE; Start 10/23/16 at 23: 30 Dextrose (D50w Syringe) 25 ml Q15M PRN IV DECREASED GLUCOSE; Start 10/23/16 at 23:30 Dextrose (D50w Syringe) 50 ml Q15M PRN IV DECREASED GLUCOSE; Start 10/23/16 at 23:30 Glucagon (Glucagen) 1 mg Q15M PRN IM DECREASED GLUCOSE; Start 10/23/16 at 23:30 Glucose (Glutose) 15 gm Q15M PRN BUCCAL DECREASED GLUCOSE; Start 10/23/16 at 23 :30 Amlodipine Besylate (Norvasc) 5 mg DAILY PO Last administered on 10/27/16 08: 43; Admin Dose 5 MG; Start 10/24/16 at 09:00 Aspirin (Aspirin) 81 mg DAILY PO Last administered on 10/27/16 08:44; Admin Dose 81 MG; Start 10/24/16 at 09:00 Atorvastatin Calcium (Lipitor) 40 mg QHS PO Last administered on 10/26/16 21: 05; Admin Dose 40 MG; Start 10/24/16 at 21:00 Benzonatate (Tessalon) 100 mg Q6 PO Last administered on 10/27/16 12:29; Admin Dose 100 MG; Start 10/24/16 at 00:00 Cinacalcet (Sensipar) 30 mg DAILY PO Last administered on 10/27/16 08:45; Admin Dose 30 MG; Start 10/24/16 at 09:00 Diltiazem HCl (Cardizem Sr) 60 mg Q12 PO Last administered on 10/27/16 08:44; Admin Dose 60 MG; Start 10/24/16 at 09:00 Furosemide (Lasix) 80 mg DAILY@06 PO Last administered on 10/26/16 05:36; Admin Dose 80 MG; Start 10/24/16 at 06:00 Montelukast Sodium (Singulair) 10 mg QAM PO Last administered on 10/27/16 09: 15; Admin Dose 10 MG; Start 10/24/16 at 09:00 Oxycodone/ Acetaminophen (Endocet (10/ 325)) 1 tab Q6 PRN PO PRN Last administered on 10/27/16 15:00; Admin Dose 1 TAB; Start 10/23/16 at 23:30 Pyridoxine HCl (Vitamin B6) 50 mg DAILY PO Last administered on 10/27/16 08:42 ; Admin Dose 50 MG; Start 10/24/16 at 09:00 Tiotropium [place] (Spiriva) 1 inh DAILY INH Last administered on 10/27/16 08: 45; Admin Dose 1 INH; Start 10/24/16 at 09:00 Metoprolol Tartrate (Lopressor) 50 mg BID PO Last administered on 10/27/16 08: 45; Admin Dose 50 MG; Start 10/24/16 at 09:00 Albuterol (Ventolin Hfa) 2 puff Q4H PRN INH WHEEZING AND SOB; Start 10/23/16 at 23:45 Metoclopramide HCl (Reglan) 5 mg Q6 PO Last administered on 10/27/16 12:29; Admin Dose 5 MG; Start 10/24/16 at 00:00 Pantoprazole (Protonix Tab) 40 mg DAILY@06 PO Last administered on 10/27/16 06 :13; Admin Dose 40 MG; Start 10/24/16 at 06:00 [facility] This patient sexton... PRN PRN XX WOUND CARE; Start 10/24/16 at 05:30 Nicotine (Nicoderm 14 Mg/ 24hr) 1 patch DAILY TRANSDERM Last administered on 08:47; Admin Dose 1 PATCH; Start 10/25/16 at 09:00 Vitamin A/Vitamin D (Vitamin A & D Oint) ONE APPLICATION rt thigh BID TOP Last administered on 10/27/16 08:49; Admin Dose 1 APPLIC; Start 10/24/16 at 15:30 Docusate Sodium (Colace) 100 mg BID PO Last administered on 10/27/16 08:42; Admin Dose 100 MG; Start 10/24/16 at 15:30 Lactobacillus Acidophilus/ Rhamnosus (Culturelle) 1 cap BID PO Last administered on 10/27/16 08:45; Admin Dose 1 CAP; Start 10/24/16 at 16:30 Carisoprodol (Soma) 350 mg Q8H PRN PO pain Last administered on 10/27/16 09:27 ; Admin Dose 350 MG; Start 10/24/16 at 21:30 Apixaban (Eliquis) 5 mg BID PO Last administered on 10/27/16 08:45; Admin Dose 5 MG; Start 10/25/16 at 21:00 Zolpidem Tartrate (Ambien) 5 mg QHS PRN PO INSOMNIA Last administered on 01:15; Admin Dose 5 MG; Start 10/25/16 at 11:00 Fluconazole (Diflucan) 100 mg DAILY PO Last administered on 10/27/16 08:43; Admin Dose 100 MG; Start 10/25/16 at 14:30 Losartan Potassium 100 mg 100 mg DAILY PO Last administered on 10/27/16 08:44 ; Admin Dose 100 MG; Start 10/26/16 at 10:00 Vancomycin HCl (Vancocin) 250 ml @ 125 mls/hr Q72H IVPB Last administered on 16:12; Admin Dose 125 MLS/HR; Start 10/27/16 at 16:00 Insulin Detemir (Levemir) 45 unit DAILY@20 SC Last administered on 10/26/16 21 :22; Admin Dose 45 UNIT; Start 10/26/16 at 20:00 Diagnostic Test (Pha) (Accu-Chek) 1 ea 02 XX ; Start 10/27/16 at 02:00 Salmeterol Xinafoate/ Fluticasone (Advair 250/50 Diskus) 1 inh BID INH Last administered on 10/27/16 12:28; Admin Dose 1 INH; Start 10/27/16 at 12:00 Lidocaine (Lidocaine 5% Oint) 1 applic TID PRN TOP PAIN Last administered on 15:56; Admin Dose 1 APPLIC; Start 10/27/16 at 15:15 LUIS E DUFFY MD Oct 27, 2016 17:20
[2016-10-27] MEDS: traMADol 50 MG TAB PO PRN ×2 (17:53→23:56)
--- NOTE | 2016-10-27 17:57 | RADRPT ---
PROCEDURE: XR Chest. CLINICAL INDICATION: Chest pain and prior history of pneumonia TECHNIQUE: AP Portable chest. COMPARISON: Chest x-ray 09/09/2016 FINDINGS: The soft tissues and bones are compatible with generalized osteopenia. No significant interval dawn ge in the left lower lobe atelectasis, infiltrate, or scarring and small left pleural effusion. Mil d cardiomegaly is present with vascular calcifications of the aorta. Interval increase in the cardi ogenic pulmonary venous hypertension is present. No pneumothorax is present. IMPRESSION: 1. Interval increase in the cardiogenic pulmonary venous hypertension when compared with prior stud y. 2. Stable left lower lobe atelectasis, infiltrate, or scarring and small left pleural effusion 3. Stable mild cardiomegaly and atherosclerotic vascular disease RPTAT: HDC .Joann Shelley MD, Date Time Electronically viewed and signed by .Joann Shelley MD, on 10/27/2016 17:57 .C/
[2016-10-27] MEDS: ATORVASTATIN 40 MG TAB PO SCH (20:08)
[2016-10-27] MEDS: INSULIN DETEMIR [LEVEMIR] 3ML CART SC SCH (20:55)
[2016-10-28] VITALS (23 sets, daily range): BP systolic 88–122; BP diastolic 52–69; PULSE 94–123; RESP 17–20
[2016-10-28] MEDS: ZOLPIDEM 5 MG TAB PO PRN ×2 (00:03→23:52)
[2016-10-28] MEDS: CARISOPRODOL 350 MG TAB PO PRN (01:52)
[2016-10-28] MEDS: ACCU-CHEK XX SCH (02:11)
[2016-10-28] MEDS: OXYCODONE/ACETAMINOPHEN (10/325) TAB PO PRN ×3 (04:09→23:09)
[2016-10-28] MEDS: BENZONATATE 100 MG CAP PO SCH ×4 (05:59→23:09)
[2016-10-28] MEDS: PANTOPRAZOLE (EC) 40 MG TAB PO SCH (05:59)
[2016-10-28] MEDS: FUROSEMIDE 40 MG TAB PO SCH (06:00)
[2016-10-28] MEDS: METOCLOPRAMIDE 5 MG TAB PO SCH ×4 (06:00→23:10)
[2016-10-28] MEDS: ACETAMINOPHEN 325 MG TAB PO PRN ×2 (06:07→12:15)
[2016-10-28] MEDS: INSULIN ASPART [NOVOLOG] 3 ML PEN SC SCH ×7 (07:55→21:00)
[2016-10-28] MEDS: SALMETEROL/FLUTICASONE 250/50 INHA INH SCH ×2 (08:08→22:07)
[2016-10-28] MEDS: NICOTINE (14 MG/24 HR) PATCH TRANSDERM SCH (08:09)
[2016-10-28] MEDS: CALCIUM ACETATE 667 MG CAP PO SCH ×3 (08:09→17:17)
[2016-10-28] MEDS: VITAMIN A & D 5 GM OINT PACKET TOP SCH ×2 (08:09→22:05)
[2016-10-28] MEDS: DILTIAZEM (SR) 60 MG CAP PO SCH ×2 (11:30→23:09)
[2016-10-28] MEDS: LOSARTAN 50 MG TAB PO SCH (11:31)
[2016-10-28] MEDS: AMLODIPINE 5 MG TAB PO SCH (11:31)
[2016-10-28] MEDS: METOPROLOL 50 MG TAB PO SCH ×2 (11:31→22:06)
[2016-10-28] MEDS: APIXABAN 5 MG TABLET PO SCH ×2 (12:14→22:05)
[2016-10-28] MEDS: FLUCONAZOLE 100 MG TAB PO SCH (12:14)
[2016-10-28] MEDS: DOCUSATE SODIUM 100 MG CAP PO SCH ×2 (12:15→22:05)
[2016-10-28] MEDS: PYRIDOXINE 50 MG TAB PO SCH (12:15)
[2016-10-28] MEDS: LACTOBACILLUS RHAMNOSUS CAP PO SCH ×2 (12:15→23:09)
[2016-10-28] MEDS: MONTELUKAST 10 MG TAB PO SCH (12:15)
[2016-10-28] MEDS: ASPIRIN 81 MG TAB PO SCH (12:15)
[2016-10-28] MEDS: CINACALCET 30 MG TAB PO SCH (12:15)
[2016-10-28] MEDS: TIOTROPIUM 18 MCG CAPSULE INHA DEV INH SCH (12:29)
--- NOTE | 2016-10-28 12:37 | PN ---
Date/Time of Note Date/Time of Note DATE: 10/28/16 TIME: 12:37 Assessment/Plan VTE Prophylaxis VTE Prophylaxis Intervention: SCD's Lines/Catheters IV Catheter Type (from Nrsg): Saline Lock Urinary Cath still in place: No Assessment/Plan Assessment/Plan 61 yo F with pmhx ESRD on HD, DM2, obesity, HTN, admitted for nausea/vomiting thought to be due to a missed HD session. Pt previously discharged 6.7 after a stay for a LE wound. #ESRD with recent missed HD session: nephrology following, appreciate HD assistance #discharge planning: PT/OT/sw refs placed #LLE wound with wound vac: cont wound vac abx as per ID #AFib: cont ATC #HTN: cont home meds #HL: cont statin ?chronic pain: cont home soma Prophx: full ATC with eliquis dispo pending MAYUR Subjective 24 Hr Interval Summary Free Text/Dictation Pt sleeping in bed when I assessed her this morning Exam/Review of Systems Vital Signs Vitals Vital Signs Date Time Temp Pulse Resp B/P Pulse Ox O2 Delivery O2 Flow Rate FiO2 10/28/16 12:28 121 10/28/16 11:21 97.7 20 101/56 94 Intake and Output 10/27/16 10/27/16 10/28/16 15:00 23:00 07:00 Intake Total 600 ml 200 ml Balance 600 ml 200 ml Exam nad, laying in bed, sleeping no mrg lungs clear abd soft LE wounds improving Results Result Diagram: 10/25/16 0530 10/25/16 0530 Results 24 hrs Laboratory Tests Test 10/27/16 16:25 10/27/16 17:41 10/27/16 20:01 10/28/16 00:08 Bedside Glucose 79 85 125 106 Test 10/28/16 02:10 10/28/16 08:05 10/28/16 12:23 Bedside Glucose 155 112 189 Medications Medications Current Medications Acetaminophen (Tylenol Tab) 650 mg Q6H PRN PO PAIN AND OR ELEVATED TEMP Last administered on 10/28/16t 12:15; Admin Dose 650 MG; Start 10/23/16 at 23:00 Miscellaneous Information 1 ea NOTE XX ; Start 10/23/16 at 23:30 Glucose (Glutose) 15 gm Q15M PRN PO DECREASED GLUCOSE; Start 10/23/16 at 23:30 Glucose (Glutose) 22.5 gm Q15M PRN PO DECREASED GLUCOSE; Start 10/23/16 at 23: 30 Dextrose (D50w Syringe) 25 ml Q15M PRN IV DECREASED GLUCOSE; Start 10/23/16 at 23:30 Dextrose (D50w Syringe) 50 ml Q15M PRN IV DECREASED GLUCOSE; Start 10/23/16 at 23:30 Glucagon (Glucagen) 1 mg Q15M PRN IM DECREASED GLUCOSE; Start 10/23/16 at 23:30 Glucose (Glutose) 15 gm Q15M PRN BUCCAL DECREASED GLUCOSE; Start 10/23/16 at 23 :30 Amlodipine Besylate (Norvasc) 5 mg DAILY PO Last administered on 10/27/16 08: 43; Admin Dose 5 MG; Start 10/24/16 at 09:00 Aspirin (Aspirin) 81 mg DAILY PO Last administered on 10/28/16 12:15; Admin Dose 81 MG; Start 10/24/16 at 09:00 Atorvastatin Calcium (Lipitor) 40 mg QHS PO Last administered on 10/27/16 20: 08; Admin Dose 40 MG; Start 10/24/16 at 21:00 Benzonatate (Tessalon) 100 mg Q6 PO Last administered on 10/28/16 12:21; Admin Dose 100 MG; Start 10/24/16 at 00:00 Cinacalcet (Sensipar) 30 mg DAILY PO Last administered on 10/28/16 12:15; Admin Dose 30 MG; Start 10/24/16 at 09:00 Diltiazem HCl (Cardizem Sr) 60 mg Q12 PO Last administered on 10/27/16 08:44; Admin Dose 60 MG; Start 10/24/16 at 09:00 Furosemide (Lasix) 80 mg DAILY@06 PO Last administered on 10/28/16 06:00; Admin Dose 80 MG; Start 10/24/16 at 06:00 Montelukast Sodium (Singulair) 10 mg QAM PO Last administered on 10/28/16 12: 15; Admin Dose 10 MG; Start 10/24/16 at 09:00 Oxycodone/ Acetaminophen (Endocet (10/ 325)) 1 tab Q6 PRN PO PRN Last administered on 10/28/16 04:09; Admin Dose 1 TAB; Start 10/23/16 at 23:30 Pyridoxine HCl (Vitamin B6) 50 mg DAILY PO Last administered on 10/28/16 12:15 ; Admin Dose 50 MG; Start 10/24/16 at 09:00 Tiotropium [place] (Spiriva) 1 inh DAILY INH Last administered on 10/27/16 08: 45; Admin Dose 1 INH; Start 10/24/16 at 09:00 Metoprolol Tartrate (Lopressor) 50 mg BID PO Last administered on 10/27/16 08: 45; Admin Dose 50 MG; Start 10/24/16 at 09:00 Albuterol (Ventolin Hfa) 2 puff Q4H PRN INH WHEEZING AND SOB; Start 10/23/16 at 23:45 Metoclopramide HCl (Reglan) 5 mg Q6 PO Last administered on 10/28/16 12:14; Admin Dose 5 MG; Start 10/24/16 at 00:00 Pantoprazole (Protonix Tab) 40 mg DAILY@06 PO Last administered on 10/28/16 05 :59; Admin Dose 40 MG; Start 10/24/16 at 06:00 Miscellaneous Information (Pending [facility] Order For Wound Care) This patient sexton... PRN PRN XX WOUND CARE; Start 10/24/16 at 05:30 Nicotine (Nicoderm 14 Mg/ 24hr) 1 patch DAILY TRANSDERM Last administered on 08:09; Admin Dose 1 PATCH; Start 10/25/16 at 09:00 Vitamin A/Vitamin D (Vitamin A & D Oint) ONE APPLICATION rt thigh BID TOP Last administered on 10/28/16 08:09; Admin Dose 1 APPLIC; Start 10/24/16 at 15:30 Docusate Sodium (Colace) 100 mg BID PO Last administered on 10/28/16 12:15; Admin Dose 100 MG; Start 10/24/16 at 15:30 Lactobacillus Acidophilus/ Rhamnosus (Culturelle) 1 cap BID PO Last administered on 10/28/16 12:15; Admin Dose 1 CAP; Start 10/24/16 at 16:30 Carisoprodol (Soma) 350 mg Q8H PRN PO pain Last administered on 10/28/16 01:52 ; Admin Dose 350 MG; Start 10/24/16 at 21:30 Apixaban (Eliquis) 5 mg BID PO Last administered on 10/28/16 12:14; Admin Dose 5 MG; Start 10/25/16 at 21:00 Zolpidem Tartrate (Ambien) 5 mg QHS PRN PO INSOMNIA Last administered on 00:03; Admin Dose 5 MG; Start 10/25/16 at 11:00 Fluconazole (Diflucan) 100 mg DAILY PO Last administered on 10/28/16 12:14; Admin Dose 100 MG; Start 10/25/16 at 14:30 Losartan Potassium 100 mg 100 mg DAILY PO Last administered on 10/27/16 08:44 ; Admin Dose 100 MG; Start 10/26/16 at 10:00 Vancomycin HCl (Vancocin) 250 ml @ 125 mls/hr Q72H IVPB Last administered on 16:12; Admin Dose 125 MLS/HR; Start 10/27/16 at 16:00 Insulin Detemir (Levemir) 45 unit DAILY@20 SC Last administered on 10/27/16 20 :55; Admin Dose 45 UNIT; Start 10/26/16 at 20:00 Diagnostic Test (Pha) (Accu-Chek) 1 ea 02 XX Last administered on 10/28/16 02: 11; Admin Dose 1 EA; Start 10/27/16 at 02:00 Salmeterol Xinafoate/ Fluticasone (Advair 250/50 Diskus) 1 inh BID INH Last administered on 10/28/16 08:08; Admin Dose 1 INH; Start 10/27/16 at 12:00 Lidocaine (Lidocaine 5% Oint) 1 applic TID PRN TOP PAIN Last administered on 19:47; Admin Dose 1 APPLIC; Start 10/27/16 at 15:15 Tramadol HCl (Ultram) 50 mg Q6 PRN PO pain Last administered on 10/27/16 23:56 ; Admin Dose 50 MG; Start 10/27/16 at 17:30 LUIS E DUFFY MD Oct 28, 2016 12:37
--- NOTE | 2016-10-28 13:19 | CONS ---
Date/Time of Note Date/Time of Note DATE: 10/28/16 TIME: 13:18 Assessment/Plan Assessment/Plan Chief Complaint/Hosp Course SUBJECTIVE: No events, sleeping s/p HD, no fevers, nad Abx: Vanco, Diflucan Micro: previous wound cx grew Enterococcus/Corynebacterium/Giselle parapsilosis PHYSICAL EXAMINATION: GENERAL: Morbidly obese, well-developed, elderly woman who is in no distress. HEENT: Head atraumatic, normocephalic. Sclerae anicteric. Buccal mucosa dry. NECK: Supple. CHEST: Rise symmetrical. Breath sounds clear. HEART: S1, S2. ABDOMEN: Soft, bowel sounds present. EXTREMITIES: Without cyanosis. Left upper thigh wound vac present ASSESSMENT: 1. Bilateral lower extremities chronic venous stasis with left hip wound, s/p debridement and wound vac application 10/19/16. 2. End-stage renal disease, on hemodialysis. 3. Left upper extremity arteriovenous fistula. 4. Obesity. 5. Atrial fibrillation. PLAN: Remains stable, s/p Gentamicin dose 10/26/16, continue abx, local wound care per vascular rec-s [facility] staff Problems: Consultation Date/Type/Reason Admit Date/Time Oct 24, 2016 at 12:02 Initial Consult Date 10/23/16 Type of Consultation: id Exam/Review of Systems Vital Signs Vitals Vital Signs Date Time Temp Pulse Resp B/P Pulse Ox O2 Delivery O2 Flow Rate FiO2 10/28/16 12:28 121 10/28/16 11:21 97.7 20 101/56 94 Intake and Output 10/27/16 10/27/16 10/28/16 15:00 23:00 07:00 Intake Total 600 ml 200 ml Balance 600 ml 200 ml Results Result Diagram: 10/25/16 0530 10/25/16 0530 Results 24 hrs Laboratory Tests Test 10/27/16 16:25 10/27/16 17:41 10/27/16 20:01 10/28/16 00:08 Bedside Glucose 79 85 125 106 Test 10/28/16 02:10 10/28/16 08:05 10/28/16 12:23 Bedside Glucose 155 112 189 Medications Medications Current Medications Acetaminophen (Tylenol Tab) 650 mg Q6H PRN PO PAIN AND OR ELEVATED TEMP Last administered on 10/28/16t 12:15; Admin Dose 650 MG; Start 10/23/16 at 23:00 Miscellaneous Information 1 ea NOTE XX ; Start 10/23/16 at 23:30 Glucose (Glutose) 15 gm Q15M PRN PO DECREASED GLUCOSE; Start 10/23/16 at 23:30 Glucose (Glutose) 22.5 gm Q15M PRN PO DECREASED GLUCOSE; Start 10/23/16 at 23: 30 Dextrose (D50w Syringe) 25 ml Q15M PRN IV DECREASED GLUCOSE; Start 10/23/16 at 23:30 Dextrose (D50w Syringe) 50 ml Q15M PRN IV DECREASED GLUCOSE; Start 10/23/16 at 23:30 Glucagon (Glucagen) 1 mg Q15M PRN IM DECREASED GLUCOSE; Start 10/23/16 at 23:30 Glucose (Glutose) 15 gm Q15M PRN BUCCAL DECREASED GLUCOSE; Start 10/23/16 at 23 :30 Amlodipine Besylate (Norvasc) 5 mg DAILY PO Last administered on 10/27/16 08: 43; Admin Dose 5 MG; Start 10/24/16 at 09:00 Aspirin (Aspirin) 81 mg DAILY PO Last administered on 10/28/16 12:15; Admin Dose 81 MG; Start 10/24/16 at 09:00 Atorvastatin Calcium (Lipitor) 40 mg QHS PO Last administered on 10/27/16 20: 08; Admin Dose 40 MG; Start 10/24/16 at 21:00 Benzonatate (Tessalon) 100 mg Q6 PO Last administered on 10/28/16 12:21; Admin Dose 100 MG; Start 10/24/16 at 00:00 Cinacalcet (Sensipar) 30 mg DAILY PO Last administered on 10/28/16 12:15; Admin Dose 30 MG; Start 10/24/16 at 09:00 Diltiazem HCl (Cardizem Sr) 60 mg Q12 PO Last administered on 10/27/16 08:44; Admin Dose 60 MG; Start 10/24/16 at 09:00 Furosemide (Lasix) 80 mg DAILY@06 PO Last administered on 10/28/16 06:00; Admin Dose 80 MG; Start 10/24/16 at 06:00 Montelukast Sodium (Singulair) 10 mg QAM PO Last administered on 10/28/16 12: 15; Admin Dose 10 MG; Start 10/24/16 at 09:00 Oxycodone/ Acetaminophen (Endocet (10/ 325)) 1 tab Q6 PRN PO PRN Last administered on 10/28/16 04:09; Admin Dose 1 TAB; Start 10/23/16 at 23:30 Pyridoxine HCl (Vitamin B6) 50 mg DAILY PO Last administered on 10/28/16 12:15 ; Admin Dose 50 MG; Start 10/24/16 at 09:00 Tiotropium [place] (Spiriva) 1 inh DAILY INH Last administered on 10/27/16 08: 45; Admin Dose 1 INH; Start 10/24/16 at 09:00 Metoprolol Tartrate (Lopressor) 50 mg BID PO Last administered on 10/27/16 08: 45; Admin Dose 50 MG; Start 10/24/16 at 09:00 Albuterol (Ventolin Hfa) 2 puff Q4H PRN INH WHEEZING AND SOB; Start 10/23/16 at 23:45 Metoclopramide HCl (Reglan) 5 mg Q6 PO Last administered on 10/28/16 12:14; Admin Dose 5 MG; Start 10/24/16 at 00:00 Pantoprazole (Protonix Tab) 40 mg DAILY@06 PO Last administered on 10/28/16 05 :59; Admin Dose 40 MG; Start 10/24/16 at 06:00 [facility] This patient sexton... PRN PRN XX WOUND CARE; Start 10/24/16 at 05:30 Nicotine (Nicoderm 14 Mg/ 24hr) 1 patch DAILY TRANSDERM Last administered on 08:09; Admin Dose 1 PATCH; Start 10/25/16 at 09:00 Vitamin A/Vitamin D (Vitamin A & D Oint) ONE APPLICATION rt thigh BID TOP Last administered on 10/28/16 08:09; Admin Dose 1 APPLIC; Start 10/24/16 at 15:30 Docusate Sodium (Colace) 100 mg BID PO Last administered on 10/28/16 12:15; Admin Dose 100 MG; Start 10/24/16 at 15:30 Lactobacillus Acidophilus/ Rhamnosus (Culturelle) 1 cap BID PO Last administered on 10/28/16 12:15; Admin Dose 1 CAP; Start 10/24/16 at 16:30 Carisoprodol (Soma) 350 mg Q8H PRN PO pain Last administered on 10/28/16 01:52 ; Admin Dose 350 MG; Start 10/24/16 at 21:30 Apixaban (Eliquis) 5 mg BID PO Last administered on 10/28/16 12:14; Admin Dose 5 MG; Start 10/25/16 at 21:00 Zolpidem Tartrate (Ambien) 5 mg QHS PRN PO INSOMNIA Last administered on 00:03; Admin Dose 5 MG; Start 10/25/16 at 11:00 Fluconazole (Diflucan) 100 mg DAILY PO Last administered on 10/28/16 12:14; Admin Dose 100 MG; Start 10/25/16 at 14:30 Losartan Potassium 100 mg 100 mg DAILY PO Last administered on 10/27/16 08:44 ; Admin Dose 100 MG; Start 10/26/16 at 10:00 Vancomycin HCl (Vancocin) 250 ml @ 125 mls/hr Q72H IVPB Last administered on 16:12; Admin Dose 125 MLS/HR; Start 10/27/16 at 16:00 Insulin Detemir (Levemir) 45 unit DAILY@20 SC Last administered on 10/27/16 20 :55; Admin Dose 45 UNIT; Start 10/26/16 at 20:00 Diagnostic Test (Pha) (Accu-Chek) 1 ea 02 XX Last administered on 10/28/16 02: 11; Admin Dose 1 EA; Start 10/27/16 at 02:00 Salmeterol Xinafoate/ Fluticasone (Advair 250/50 Diskus) 1 inh BID INH Last administered on 10/28/16 08:08; Admin Dose 1 INH; Start 10/27/16 at 12:00 Lidocaine (Lidocaine 5% Oint) 1 applic TID PRN TOP PAIN Last administered on 19:47; Admin Dose 1 APPLIC; Start 10/27/16 at 15:15 Tramadol HCl (Ultram) 50 mg Q6 PRN PO pain Last administered on 10/27/16 23:56 ; Admin Dose 50 MG; Start 10/27/16 at 17:30 TODD RAMIRES NP Oct 28, 2016 13:19
[2016-10-28] MEDS: traMADol 50 MG TAB PO PRN (15:59)
--- NOTE | 2016-10-28 16:31 | CONS ---
Date/Time of Note Date/Time of Note DATE: 10/28/16 TIME: 16:29 Assessment/Plan Assessment/Plan Chief Complaint/Hosp Course - ESRD on DIALYSIS TTS at [facility] - Cellulitis of leg - Anemia - Volume overloaded - Hyperkalemia - Hypertension - Hyperphosphatemia PLAN: Bedside dialysis Feels better Control of her gasseritis Monitor K Antibiotics May need to go to SNF ( she agrees ) Problems: Consultation Date/Type/Reason Admit Date/Time Oct 24, 2016 at 12:02 Initial Consult Date 10/23/16 Type of Consultation: NEPHROLOGY Reason for Consultation - ESRD 24 HR Interval Summary Constitutional: improved Exam/Review of Systems Vital Signs Vitals Vital Signs Date Time Temp Pulse Resp B/P Pulse Ox O2 Delivery O2 Flow Rate FiO2 10/28/16 16:14 123 10/28/16 15:32 97.9 20 108/65 94 Intake and Output 10/27/16 10/27/16 10/28/16 15:00 23:00 07:00 Intake Total 600 ml 200 ml Balance 600 ml 200 ml Exam Constitutional: alert Psych: no complaints Head: normocephalic Neck: supple Respiratory: crackles/rales Cardiovascular: edema, regular rate and rhythm, systolic murmur Gastrointestinal: soft Results Result Diagram: 10/25/16 0530 10/25/16 0530 Results 24 hrs Laboratory Tests Test 10/27/16 17:41 10/27/16 20:01 10/28/16 00:08 10/28/16 02:10 Bedside Glucose 85 125 106 155 Test 10/28/16 08:05 10/28/16 12:23 Bedside Glucose 112 189 Medications Medications Current Medications Acetaminophen (Tylenol Tab) 650 mg Q6H PRN PO PAIN AND OR ELEVATED TEMP Last administered on 10/28/16t 12:15; Admin Dose 650 MG; Start 10/23/16 at 23:00 Miscellaneous Information 1 ea NOTE XX ; Start 10/23/16 at 23:30 Glucose (Glutose) 15 gm Q15M PRN PO DECREASED GLUCOSE; Start 10/23/16 at 23:30 Glucose (Glutose) 22.5 gm Q15M PRN PO DECREASED GLUCOSE; Start 10/23/16 at 23: 30 Dextrose (D50w Syringe) 25 ml Q15M PRN IV DECREASED GLUCOSE; Start 10/23/16 at 23:30 Dextrose (D50w Syringe) 50 ml Q15M PRN IV DECREASED GLUCOSE; Start 10/23/16 at 23:30 Glucagon (Glucagen) 1 mg Q15M PRN IM DECREASED GLUCOSE; Start 10/23/16 at 23:30 Glucose (Glutose) 15 gm Q15M PRN BUCCAL DECREASED GLUCOSE; Start 10/23/16 at 23 :30 Amlodipine Besylate (Norvasc) 5 mg DAILY PO Last administered on 10/27/16 08: 43; Admin Dose 5 MG; Start 10/24/16 at 09:00 Aspirin (Aspirin) 81 mg DAILY PO Last administered on 10/28/16 12:15; Admin Dose 81 MG; Start 10/24/16 at 09:00 Atorvastatin Calcium (Lipitor) 40 mg QHS PO Last administered on 10/27/16 20: 08; Admin Dose 40 MG; Start 10/24/16 at 21:00 Benzonatate (Tessalon) 100 mg Q6 PO Last administered on 10/28/16 12:21; Admin Dose 100 MG; Start 10/24/16 at 00:00 Cinacalcet (Sensipar) 30 mg DAILY PO Last administered on 10/28/16 12:15; Admin Dose 30 MG; Start 10/24/16 at 09:00 Diltiazem HCl (Cardizem Sr) 60 mg Q12 PO Last administered on 10/27/16 08:44; Admin Dose 60 MG; Start 10/24/16 at 09:00 Furosemide (Lasix) 80 mg DAILY@06 PO Last administered on 10/28/16 06:00; Admin Dose 80 MG; Start 10/24/16 at 06:00 Montelukast Sodium (Singulair) 10 mg QAM PO Last administered on 10/28/16 12: 15; Admin Dose 10 MG; Start 10/24/16 at 09:00 Oxycodone/ Acetaminophen (Endocet (10/ 325)) 1 tab Q6 PRN PO PRN Last administered on 10/28/16 14:13; Admin Dose 1 TAB; Start 10/23/16 at 23:30 Pyridoxine HCl (Vitamin B6) 50 mg DAILY PO Last administered on 10/28/16 12:15 ; Admin Dose 50 MG; Start 10/24/16 at 09:00 Tiotropium [place] (Spiriva) 1 inh DAILY INH Last administered on 10/27/16 08: 45; Admin Dose 1 INH; Start 10/24/16 at 09:00 Metoprolol Tartrate (Lopressor) 50 mg BID PO Last administered on 10/27/16 08: 45; Admin Dose 50 MG; Start 10/24/16 at 09:00 Albuterol (Ventolin Hfa) 2 puff Q4H PRN INH WHEEZING AND SOB; Start 10/23/16 at 23:45 Metoclopramide HCl (Reglan) 5 mg Q6 PO Last administered on 10/28/16 12:14; Admin Dose 5 MG; Start 10/24/16 at 00:00 Pantoprazole (Protonix Tab) 40 mg DAILY@06 PO Last administered on 10/28/16 05 :59; Admin Dose 40 MG; Start 10/24/16 at 06:00 [facility] This patient sexton... PRN PRN XX WOUND CARE; Start 10/24/16 at 05:30 Nicotine (Nicoderm 14 Mg/ 24hr) 1 patch DAILY TRANSDERM Last administered on 08:09; Admin Dose 1 PATCH; Start 10/25/16 at 09:00 Vitamin A/Vitamin D (Vitamin A & D Oint) ONE APPLICATION rt thigh BID TOP Last administered on 10/28/16 08:09; Admin Dose 1 APPLIC; Start 10/24/16 at 15:30 Docusate Sodium (Colace) 100 mg BID PO Last administered on 10/28/16 12:15; Admin Dose 100 MG; Start 10/24/16 at 15:30 Lactobacillus Acidophilus/ Rhamnosus (Culturelle) 1 cap BID PO Last administered on 10/28/16 12:15; Admin Dose 1 CAP; Start 10/24/16 at 16:30 Carisoprodol (Soma) 350 mg Q8H PRN PO pain Last administered on 10/28/16 01:52 ; Admin Dose 350 MG; Start 10/24/16 at 21:30 Apixaban (Eliquis) 5 mg BID PO Last administered on 10/28/16 12:14; Admin Dose 5 MG; Start 10/25/16 at 21:00 Zolpidem Tartrate (Ambien) 5 mg QHS PRN PO INSOMNIA Last administered on 00:03; Admin Dose 5 MG; Start 10/25/16 at 11:00 Fluconazole (Diflucan) 100 mg DAILY PO Last administered on 10/28/16 12:14; Admin Dose 100 MG; Start 10/25/16 at 14:30 Losartan Potassium 100 mg 100 mg DAILY PO Last administered on 10/27/16 08:44 ; Admin Dose 100 MG; Start 10/26/16 at 10:00 Vancomycin HCl (Vancocin) 250 ml @ 125 mls/hr Q72H IVPB Last administered on 16:12; Admin Dose 125 MLS/HR; Start 10/27/16 at 16:00 Insulin Detemir (Levemir) 45 unit DAILY@20 SC Last administered on 10/27/16 20 :55; Admin Dose 45 UNIT; Start 10/26/16 at 20:00 Diagnostic Test (Pha) (Accu-Chek) 1 ea 02 XX Last administered on 10/28/16 02: 11; Admin Dose 1 EA; Start 10/27/16 at 02:00 Salmeterol Xinafoate/ Fluticasone (Advair 250/50 Diskus) 1 inh BID INH Last administered on 10/28/16 08:08; Admin Dose 1 INH; Start 10/27/16 at 12:00 Lidocaine (Lidocaine 5% Oint) 1 applic TID PRN TOP PAIN Last administered on 19:47; Admin Dose 1 APPLIC; Start 10/27/16 at 15:15 Tramadol HCl (Ultram) 50 mg Q6 PRN PO pain Last administered on 10/28/16 15:59 ; Admin Dose 50 MG; Start 10/27/16 at 17:30 BECKY GAMBLE MD Oct 28, 2016 16:30
[2016-10-28] MEDS ORDERED: ONDANSETRON 4 MG INJ IV PRN (19:00)
[2016-10-28] MEDS ORDERED: POLYETHYLENE GLYCOL 17 GM PACKET PO ONE (20:00)
[2016-10-28] MEDS: INSULIN DETEMIR [LEVEMIR] 3ML CART SC SCH (20:43)
[2016-10-28] MEDS: ATORVASTATIN 40 MG TAB PO SCH (22:04)
[2016-10-29] MEDS: CARISOPRODOL 350 MG TAB PO PRN ×2 (01:52→20:55)
[2016-10-29] MEDS: ACCU-CHEK XX SCH (02:00)
[2016-10-29] MEDS: traMADol 50 MG TAB PO PRN (03:56)
[2016-10-29] MEDS: BENZONATATE 100 MG CAP PO SCH ×3 (05:19→17:33)
[2016-10-29] MEDS: morphine 2 MG INJ IV PRN ×4 (05:19→22:37)
[2016-10-29] MEDS: PANTOPRAZOLE (EC) 40 MG TAB PO SCH (05:19)
[2016-10-29] MEDS: METOCLOPRAMIDE 5 MG TAB PO SCH ×3 (05:19→17:33)
[2016-10-29] MEDS: FUROSEMIDE 40 MG TAB PO SCH (05:20)
[2016-10-29] MEDS: OXYCODONE/ACETAMINOPHEN (10/325) TAB PO PRN ×2 (06:22→16:13)
[2016-10-29] MEDS: INSULIN ASPART [NOVOLOG] 3 ML PEN SC SCH ×7 (08:15→20:38)
[2016-10-29] MEDS: NICOTINE (14 MG/24 HR) PATCH TRANSDERM SCH (08:31)
[2016-10-29] MEDS: LACTOBACILLUS RHAMNOSUS CAP PO SCH ×2 (08:32→20:37)
[2016-10-29] MEDS: VITAMIN A & D 5 GM OINT PACKET TOP SCH ×2 (08:32→20:50)
[2016-10-29] MEDS: CINACALCET 30 MG TAB PO SCH (08:32)
[2016-10-29] MEDS: MONTELUKAST 10 MG TAB PO SCH (08:32)
[2016-10-29] MEDS: DILTIAZEM (SR) 60 MG CAP PO SCH ×2 (08:32→20:39)
[2016-10-29] MEDS: ASPIRIN 81 MG TAB PO SCH (08:32)
[2016-10-29] MEDS: APIXABAN 5 MG TABLET PO SCH ×2 (08:32→20:38)
[2016-10-29] MEDS: PYRIDOXINE 50 MG TAB PO SCH (08:33)
[2016-10-29] MEDS: CALCIUM ACETATE 667 MG CAP PO SCH ×3 (08:33→17:33)
[2016-10-29] MEDS: DOCUSATE SODIUM 100 MG CAP PO SCH ×2 (08:33→20:38)
[2016-10-29] MEDS: LOSARTAN 50 MG TAB PO SCH (08:33)
[2016-10-29] MEDS: FLUCONAZOLE 100 MG TAB PO SCH (08:33)
[2016-10-29] MEDS: AMLODIPINE 5 MG TAB PO SCH (08:33)
[2016-10-29] MEDS: SALMETEROL/FLUTICASONE 250/50 INHA INH SCH ×2 (08:34→20:51)
[2016-10-29] MEDS: METOPROLOL 50 MG TAB PO SCH ×2 (08:36→20:39)
[2016-10-29 08:38] VITALS: BP 104/61; RESP 18
--- NOTE | 2016-10-29 09:48 | PN ---
Date/Time of Note Date/Time of Note DATE: 10/29/16 TIME: 09:48 Assessment/Plan VTE Prophylaxis VTE Prophylaxis Intervention: other (eliquis) Lines/Catheters IV Catheter Type (from Nrsg): Saline Lock Urinary Cath still in place: No Assessment/Plan Assessment/Plan 61 yo F with pmhx ESRD on HD, DM2, obesity, HTN, admitted for nausea/vomiting thought to be due to a missed HD session. Pt previously discharged 6.7 after a stay for a LE wound. Remains admitted pending dispo to SNF/[facility]. #ESRD with recent missed HD session: nephrology following, appreciate HD assistance #discharge planning: PT/OT/sw refs placed #LLE wound with wound vac: cont wound vac abx as per ID #AFib: cont ATC #HTN: cont home meds #HL: cont statin ?chronic pain: cont home soma Prophx: full ATC with eliquis dispo pending MAYUR Subjective 24 Hr Interval Summary Free Text/Dictation Resting in bed, no complaints Exam/Review of Systems Vital Signs Vitals Vital Signs Date Time Temp Pulse Resp B/P Pulse Ox O2 Delivery O2 Flow Rate FiO2 10/29/16 08:38 98.2 119 18 104/61 93 Intake and Output 10/28/16 10/28/16 10/29/16 14:59 22:59 06:59 Intake Total 200 ml 960 ml 360 ml Output Total 3000 ml Balance -2800 ml 960 ml 360 ml Exam nad, sleeping resp nonlabored no gross abd distension no rashes LE edema stable Results Result Diagram: 10/25/16 0530 10/25/16 0530 Results 24 hrs Laboratory Tests Test 10/28/16 12:23 10/28/16 17:13 10/28/16 20:40 10/28/16 22:03 Bedside Glucose 189 116 144 158 Test 10/29/16 08:21 Bedside Glucose 125 Medications Medications Current Medications Acetaminophen (Tylenol Tab) 650 mg Q6H PRN PO PAIN AND OR ELEVATED TEMP Last administered on 10/28/16t 12:15; Admin Dose 650 MG; Start 10/23/16 at 23:00 Miscellaneous Information 1 ea NOTE XX ; Start 10/23/16 at 23:30 Glucose (Glutose) 15 gm Q15M PRN PO DECREASED GLUCOSE; Start 10/23/16 at 23:30 Glucose (Glutose) 22.5 gm Q15M PRN PO DECREASED GLUCOSE; Start 10/23/16 at 23: 30 Dextrose (D50w Syringe) 25 ml Q15M PRN IV DECREASED GLUCOSE; Start 10/23/16 at 23:30 Dextrose (D50w Syringe) 50 ml Q15M PRN IV DECREASED GLUCOSE; Start 10/23/16 at 23:30 Glucagon (Glucagen) 1 mg Q15M PRN IM DECREASED GLUCOSE; Start 10/23/16 at 23:30 Glucose (Glutose) 15 gm Q15M PRN BUCCAL DECREASED GLUCOSE; Start 10/23/16 at 23 :30 Amlodipine Besylate (Norvasc) 5 mg DAILY PO Last administered on 10/29/16 08: 33; Admin Dose 5 MG; Start 10/24/16 at 09:00 Aspirin (Aspirin) 81 mg DAILY PO Last administered on 10/29/16 08:32; Admin Dose 81 MG; Start 10/24/16 at 09:00 Atorvastatin Calcium (Lipitor) 40 mg QHS PO Last administered on 10/28/16 22: 04; Admin Dose 40 MG; Start 10/24/16 at 21:00 Benzonatate (Tessalon) 100 mg Q6 PO Last administered on 10/29/16 05:19; Admin Dose 100 MG; Start 10/24/16 at 00:00 Cinacalcet (Sensipar) 30 mg DAILY PO Last administered on 10/29/16 08:32; Admin Dose 30 MG; Start 10/24/16 at 09:00 Diltiazem HCl (Cardizem Sr) 60 mg Q12 PO Last administered on 10/29/16 08:32; Admin Dose 60 MG; Start 10/24/16 at 09:00 Furosemide (Lasix) 80 mg DAILY@06 PO Last administered on 10/29/16 05:20; Admin Dose 80 MG; Start 10/24/16 at 06:00 Montelukast Sodium (Singulair) 10 mg QAM PO Last administered on 10/29/16 08: 32; Admin Dose 10 MG; Start 10/24/16 at 09:00 Oxycodone/ Acetaminophen (Endocet (10/ 325)) 1 tab Q6 PRN PO PRN Last administered on 10/29/16 06:22; Admin Dose 1 TAB; Start 10/23/16 at 23:30 Pyridoxine HCl (Vitamin B6) 50 mg DAILY PO Last administered on 10/29/16 08:33 ; Admin Dose 50 MG; Start 10/24/16 at 09:00 Tiotropium [place] (Spiriva) 1 inh DAILY INH Last administered on 10/27/16 08: 45; Admin Dose 1 INH; Start 10/24/16 at 09:00 Metoprolol Tartrate (Lopressor) 50 mg BID PO Last administered on 10/29/16 08: 36; Admin Dose 50 MG; Start 10/24/16 at 09:00 Albuterol (Ventolin Hfa) 2 puff Q4H PRN INH WHEEZING AND SOB; Start 10/23/16 at 23:45 Metoclopramide HCl (Reglan) 5 mg Q6 PO Last administered on 10/29/16 05:19; Admin Dose 5 MG; Start 10/24/16 at 00:00 Pantoprazole (Protonix Tab) 40 mg DAILY@06 PO Last administered on 10/29/16 05 :19; Admin Dose 40 MG; Start 10/24/16 at 06:00 Miscellaneous Information (Pending [facility] Order For Wound Care) This patient sexton... PRN PRN XX WOUND CARE; Start 10/24/16 at 05:30 Nicotine (Nicoderm 14 Mg/ 24hr) 1 patch DAILY TRANSDERM Last administered on 08:31; Admin Dose 1 PATCH; Start 10/25/16 at 09:00 Vitamin A/Vitamin D (Vitamin A & D Oint) ONE APPLICATION rt thigh BID TOP Last administered on 10/29/16 08:32; Admin Dose 1 APPLIC; Start 10/24/16 at 15:30 Docusate Sodium (Colace) 100 mg BID PO Last administered on 10/29/16 08:33; Admin Dose 100 MG; Start 10/24/16 at 15:30 Lactobacillus Acidophilus/ Rhamnosus (Culturelle) 1 cap BID PO Last administered on 10/29/16 08:32; Admin Dose 1 CAP; Start 10/24/16 at 16:30 Carisoprodol (Soma) 350 mg Q8H PRN PO pain Last administered on 10/29/16 01:52 ; Admin Dose 350 MG; Start 10/24/16 at 21:30 Apixaban (Eliquis) 5 mg BID PO Last administered on 10/29/16 08:32; Admin Dose 5 MG; Start 10/25/16 at 21:00 Zolpidem Tartrate (Ambien) 5 mg QHS PRN PO INSOMNIA Last administered on 23:52; Admin Dose 5 MG; Start 10/25/16 at 11:00 Fluconazole (Diflucan) 100 mg DAILY PO Last administered on 10/29/16 08:33; Admin Dose 100 MG; Start 10/25/16 at 14:30 Losartan Potassium 100 mg 100 mg DAILY PO Last administered on 10/29/16 08:33 ; Admin Dose 100 MG; Start 10/26/16 at 10:00 Vancomycin HCl (Vancocin) 250 ml @ 125 mls/hr Q72H IVPB Last administered on 16:12; Admin Dose 125 MLS/HR; Start 10/27/16 at 16:00 Insulin Detemir (Levemir) 45 unit DAILY@20 SC Last administered on 10/28/16 20 :43; Admin Dose 45 UNIT; Start 10/26/16 at 20:00 Diagnostic Test (Pha) (Accu-Chek) 1 ea 02 XX Last administered on 10/28/16 02: 11; Admin Dose 1 EA; Start 10/27/16 at 02:00 Salmeterol Xinafoate/ Fluticasone (Advair 250/50 Diskus) 1 inh BID INH Last administered on 10/29/16 08:34; Admin Dose 1 INH; Start 10/27/16 at 12:00 Lidocaine (Lidocaine 5% Oint) 1 applic TID PRN TOP PAIN Last administered on 19:47; Admin Dose 1 APPLIC; Start 10/27/16 at 15:15 Tramadol HCl (Ultram) 50 mg Q6 PRN PO pain Last administered on 10/29/16 03:56 ; Admin Dose 50 MG; Start 10/27/16 at 17:30 Ondansetron HCl (Zofran Inj) 4 mg Q6H PRN IV NAUSEA AND/OR VOMITING Last administered on 10/28/16 19:03; Admin Dose 4 MG; Start 10/28/16 at 19:00 Morphine Sulfate (morphine) 2 mg Q4H PRN IV PAIN Last administered on t 05:19; Admin Dose 2 MG; Start 10/29/16 at 05:09 LUIS E DUFFY MD Oct 29, 2016 09:48
--- NOTE | 2016-10-29 11:29 | CONS ---
Date/Time of Note Date/Time of Note DATE: 10/29/16 TIME: 11:28 Assessment/Plan Assessment/Plan Chief Complaint/Hosp Course - ESRD on DIALYSIS TTS at [facility] - Cellulitis of leg - Anemia - Volume overloaded - Hyperkalemia - Hypertension - Hyperphosphatemia PLAN: Bedside dialysis was done yesterday Next HD in AM Feels better Control of her gasseritis Monitor K Antibiotics May need to go to SNF ( she agrees ) Problems: Consultation Date/Type/Reason Admit Date/Time Oct 24, 2016 at 12:02 Initial Consult Date 10/23/16 Type of Consultation: NEPHROLOGY Reason for Consultation ESRD on hemodialysis 24 HR Interval Summary Constitutional: improved, no complaints Exam/Review of Systems Vital Signs Vitals Vital Signs Date Time Temp Pulse Resp B/P Pulse Ox O2 Delivery O2 Flow Rate FiO2 10/29/16 08:38 98.2 119 18 104/61 93 Intake and Output 10/28/16 10/28/16 10/29/16 15:00 23:00 07:00 Intake Total 200 ml 960 ml 360 ml Output Total 3000 ml Balance -2800 ml 960 ml 360 ml Exam Constitutional: alert, oriented Psych: no complaints Respiratory: crackles/rales Cardiovascular: edema, regular rate and rhythm, systolic murmur Gastrointestinal: soft Results Result Diagram: 10/25/16 0530 10/25/16 0530 Results 24 hrs Laboratory Tests Test 10/28/16 12:23 10/28/16 17:13 10/28/16 20:40 10/28/16 22:03 Bedside Glucose 189 116 144 158 Test 10/29/16 08:21 Bedside Glucose 125 Medications Medications Current Medications Acetaminophen (Tylenol Tab) 650 mg Q6H PRN PO PAIN AND OR ELEVATED TEMP Last administered on 10/28/16t 12:15; Admin Dose 650 MG; Start 10/23/16 at 23:00 Miscellaneous Information 1 ea NOTE XX ; Start 10/23/16 at 23:30 Glucose (Glutose) 15 gm Q15M PRN PO DECREASED GLUCOSE; Start 10/23/16 at 23:30 Glucose (Glutose) 22.5 gm Q15M PRN PO DECREASED GLUCOSE; Start 10/23/16 at 23: 30 Dextrose (D50w Syringe) 25 ml Q15M PRN IV DECREASED GLUCOSE; Start 10/23/16 at 23:30 Dextrose (D50w Syringe) 50 ml Q15M PRN IV DECREASED GLUCOSE; Start 10/23/16 at 23:30 Glucagon (Glucagen) 1 mg Q15M PRN IM DECREASED GLUCOSE; Start 10/23/16 at 23:30 Glucose (Glutose) 15 gm Q15M PRN BUCCAL DECREASED GLUCOSE; Start 10/23/16 at 23 :30 Amlodipine Besylate (Norvasc) 5 mg DAILY PO Last administered on 10/29/16 08: 33; Admin Dose 5 MG; Start 10/24/16 at 09:00 Aspirin (Aspirin) 81 mg DAILY PO Last administered on 10/29/16 08:32; Admin Dose 81 MG; Start 10/24/16 at 09:00 Atorvastatin Calcium (Lipitor) 40 mg QHS PO Last administered on 10/28/16 22: 04; Admin Dose 40 MG; Start 10/24/16 at 21:00 Benzonatate (Tessalon) 100 mg Q6 PO Last administered on 10/29/16 05:19; Admin Dose 100 MG; Start 10/24/16 at 00:00 Cinacalcet (Sensipar) 30 mg DAILY PO Last administered on 10/29/16 08:32; Admin Dose 30 MG; Start 10/24/16 at 09:00 Diltiazem HCl (Cardizem Sr) 60 mg Q12 PO Last administered on 10/29/16 08:32; Admin Dose 60 MG; Start 10/24/16 at 09:00 Furosemide (Lasix) 80 mg DAILY@06 PO Last administered on 10/29/16 05:20; Admin Dose 80 MG; Start 10/24/16 at 06:00 Montelukast Sodium (Singulair) 10 mg QAM PO Last administered on 10/29/16 08: 32; Admin Dose 10 MG; Start 10/24/16 at 09:00 Oxycodone/ Acetaminophen (Endocet (10/ 325)) 1 tab Q6 PRN PO PRN Last administered on 10/29/16 06:22; Admin Dose 1 TAB; Start 10/23/16 at 23:30 Pyridoxine HCl (Vitamin B6) 50 mg DAILY PO Last administered on 10/29/16 08:33 ; Admin Dose 50 MG; Start 10/24/16 at 09:00 Tiotropium [place] (Spiriva) 1 inh DAILY INH Last administered on 10/27/16 08: 45; Admin Dose 1 INH; Start 10/24/16 at 09:00 Metoprolol Tartrate (Lopressor) 50 mg BID PO Last administered on 10/29/16 08: 36; Admin Dose 50 MG; Start 10/24/16 at 09:00 Albuterol (Ventolin Hfa) 2 puff Q4H PRN INH WHEEZING AND SOB; Start 10/23/16 at 23:45 Metoclopramide HCl (Reglan) 5 mg Q6 PO Last administered on 10/29/16 05:19; Admin Dose 5 MG; Start 10/24/16 at 00:00 Pantoprazole (Protonix Tab) 40 mg DAILY@06 PO Last administered on 10/29/16 05 :19; Admin Dose 40 MG; Start 10/24/16 at 06:00 [facility] This patient sexton... PRN PRN XX WOUND CARE; Start 10/24/16 at 05:30 Nicotine (Nicoderm 14 Mg/ 24hr) 1 patch DAILY TRANSDERM Last administered on 08:31; Admin Dose 1 PATCH; Start 10/25/16 at 09:00 Vitamin A/Vitamin D (Vitamin A & D Oint) ONE APPLICATION rt thigh BID TOP Last administered on 10/29/16 08:32; Admin Dose 1 APPLIC; Start 10/24/16 at 15:30 Docusate Sodium (Colace) 100 mg BID PO Last administered on 10/29/16 08:33; Admin Dose 100 MG; Start 10/24/16 at 15:30 Lactobacillus Acidophilus/ Rhamnosus (Culturelle) 1 cap BID PO Last administered on 10/29/16 08:32; Admin Dose 1 CAP; Start 10/24/16 at 16:30 Carisoprodol (Soma) 350 mg Q8H PRN PO pain Last administered on 10/29/16 01:52 ; Admin Dose 350 MG; Start 10/24/16 at 21:30 Apixaban (Eliquis) 5 mg BID PO Last administered on 10/29/16 08:32; Admin Dose 5 MG; Start 10/25/16 at 21:00 Zolpidem Tartrate (Ambien) 5 mg QHS PRN PO INSOMNIA Last administered on 23:52; Admin Dose 5 MG; Start 10/25/16 at 11:00 Fluconazole (Diflucan) 100 mg DAILY PO Last administered on 10/29/16 08:33; Admin Dose 100 MG; Start 10/25/16 at 14:30 Losartan Potassium 100 mg 100 mg DAILY PO Last administered on 10/29/16 08:33 ; Admin Dose 100 MG; Start 10/26/16 at 10:00 Vancomycin HCl (Vancocin) 250 ml @ 125 mls/hr Q72H IVPB Last administered on 16:12; Admin Dose 125 MLS/HR; Start 10/27/16 at 16:00 Insulin Detemir (Levemir) 45 unit DAILY@20 SC Last administered on 10/28/16 20 :43; Admin Dose 45 UNIT; Start 10/26/16 at 20:00 Diagnostic Test (Pha) (Accu-Chek) 1 ea 02 XX Last administered on 10/28/16 02: 11; Admin Dose 1 EA; Start 10/27/16 at 02:00 Salmeterol Xinafoate/ Fluticasone (Advair 250/50 Diskus) 1 inh BID INH Last administered on 10/29/16 08:34; Admin Dose 1 INH; Start 10/27/16 at 12:00 Lidocaine (Lidocaine 5% Oint) 1 applic TID PRN TOP PAIN Last administered on 19:47; Admin Dose 1 APPLIC; Start 10/27/16 at 15:15 Tramadol HCl (Ultram) 50 mg Q6 PRN PO pain Last administered on 10/29/16 03:56 ; Admin Dose 50 MG; Start 10/27/16 at 17:30 Ondansetron HCl (Zofran Inj) 4 mg Q6H PRN IV NAUSEA AND/OR VOMITING Last administered on 10/28/16 19:03; Admin Dose 4 MG; Start 10/28/16 at 19:00 Morphine Sulfate (morphine) 2 mg Q4H PRN IV PAIN Last administered on 11:03; Admin Dose 2 MG; Start 10/29/16 at 05:09 BECKY GAMBLE MD Oct 29, 2016 11:29
[2016-10-29] MEDS: TIOTROPIUM 18 MCG CAPSULE INHA DEV INH SCH (12:31)
[2016-10-29] MEDS ORDERED: BISACODYL (EC) 5 MG TAB PO ONE (16:30)
[2016-10-29] MEDS ORDERED: POLYETHYLENE GLYCOL 17 GM PACKET PO ONE (16:30)
[2016-10-29 20:01] VITALS: BP 100/59; RESP 20
[2016-10-29] MEDS: ATORVASTATIN 40 MG TAB PO SCH (20:37)
[2016-10-29] MEDS: INSULIN DETEMIR [LEVEMIR] 3ML CART SC SCH (20:48)
--- NOTE | 2016-10-29 21:11 | CONS ---
Date/Time of Note Date/Time of Note DATE: 10/29/16 TIME: 21:10 Assessment/Plan Assessment/Plan Chief Complaint/Hosp Course SUBJECTIVE: No events, awake, talking on the phone, no fevers, nad Abx: Vanco, Diflucan Micro: Previous wound cx grew Enterococcus/Corynebacterium/Giselle parapsilosis PHYSICAL EXAMINATION: GENERAL: Morbidly obese, well-developed, elderly woman who is in no distress. HEENT: Head atraumatic, normocephalic. Sclerae anicteric. Buccal mucosa dry. NECK: Supple. CHEST: Rise symmetrical. Breath sounds clear. HEART: S1, S2. ABDOMEN: Soft, bowel sounds present. EXTREMITIES: Without cyanosis. Left upper thigh wound vac present ASSESSMENT: 1. Bilateral lower extremities chronic venous stasis with chronic cellulitis and left hip wound, s/p debridement and wound vac application 10/19/16. 2. End-stage renal disease, on hemodialysis. 3. Left upper extremity arteriovenous fistula. 4. Obesity. 5. Atrial fibrillation. PLAN: Remains stable, s/p Gentamicin dose 10/26/16, continue abx, local wound care per vascular rec-s, HD [facility] staff Problems: Consultation Date/Type/Reason Admit Date/Time Oct 24, 2016 at 12:02 Initial Consult Date 10/23/16 Type of Consultation: ID Exam/Review of Systems Vital Signs Vitals Vital Signs Date Time Temp Pulse Resp B/P Pulse Ox O2 Delivery O2 Flow Rate FiO2 10/29/16 20:01 98.2 109 20 100/59 91 Intake and Output 10/28/16 10/28/16 10/29/16 15:00 23:00 07:00 Intake Total 200 ml 960 ml 360 ml Output Total 3000 ml Balance -2800 ml 960 ml 360 ml Results Result Diagram: 10/25/16 0530 10/25/16 0530 Results 24 hrs Laboratory Tests Test 10/28/16 22:03 10/29/16 08:21 10/29/16 12:19 10/29/16 17:36 Bedside Glucose 158 125 110 90 Test 10/29/16 20:36 Bedside Glucose 74 Medications Medications Current Medications Acetaminophen (Tylenol Tab) 650 mg Q6H PRN PO PAIN AND OR ELEVATED TEMP Last administered on 10/28/16t 12:15; Admin Dose 650 MG; Start 10/23/16 at 23:00 Miscellaneous Information 1 ea NOTE XX ; Start 10/23/16 at 23:30 Glucose (Glutose) 15 gm Q15M PRN PO DECREASED GLUCOSE; Start 10/23/16 at 23:30 Glucose (Glutose) 22.5 gm Q15M PRN PO DECREASED GLUCOSE; Start 10/23/16 at 23: 30 Dextrose (D50w Syringe) 25 ml Q15M PRN IV DECREASED GLUCOSE; Start 10/23/16 at 23:30 Dextrose (D50w Syringe) 50 ml Q15M PRN IV DECREASED GLUCOSE; Start 10/23/16 at 23:30 Glucagon (Glucagen) 1 mg Q15M PRN IM DECREASED GLUCOSE; Start 10/23/16 at 23:30 Glucose (Glutose) 15 gm Q15M PRN BUCCAL DECREASED GLUCOSE; Start 10/23/16 at 23 :30 Amlodipine Besylate (Norvasc) 5 mg DAILY PO Last administered on 10/29/16 08: 33; Admin Dose 5 MG; Start 10/24/16 at 09:00 Aspirin (Aspirin) 81 mg DAILY PO Last administered on 10/29/16 08:32; Admin Dose 81 MG; Start 10/24/16 at 09:00 Atorvastatin Calcium (Lipitor) 40 mg QHS PO Last administered on 10/29/16 20: 37; Admin Dose 40 MG; Start 10/24/16 at 21:00 Benzonatate (Tessalon) 100 mg Q6 PO Last administered on 10/29/16 17:33; Admin Dose 100 MG; Start 10/24/16 at 00:00 Cinacalcet (Sensipar) 30 mg DAILY PO Last administered on 10/29/16 08:32; Admin Dose 30 MG; Start 10/24/16 at 09:00 Diltiazem HCl (Cardizem Sr) 60 mg Q12 PO Last administered on 10/29/16 20:39; Admin Dose 60 MG; Start 10/24/16 at 09:00 Furosemide (Lasix) 80 mg DAILY@06 PO Last administered on 10/29/16 05:20; Admin Dose 80 MG; Start 10/24/16 at 06:00 Montelukast Sodium (Singulair) 10 mg QAM PO Last administered on 10/29/16 08: 32; Admin Dose 10 MG; Start 10/24/16 at 09:00 Oxycodone/ Acetaminophen (Endocet (10/ 325)) 1 tab Q6 PRN PO PRN Last administered on 10/29/16 16:13; Admin Dose 1 TAB; Start 10/23/16 at 23:30 Pyridoxine HCl (Vitamin B6) 50 mg DAILY PO Last administered on 10/29/16 08:33 ; Admin Dose 50 MG; Start 10/24/16 at 09:00 Tiotropium [place] (Spiriva) 1 inh DAILY INH Last administered on 10/29/16 12: 31; Admin Dose 1 INH; Start 10/24/16 at 09:00 Metoprolol Tartrate (Lopressor) 50 mg BID PO Last administered on 10/29/16 20: 39; Admin Dose 50 MG; Start 10/24/16 at 09:00 Albuterol (Ventolin Hfa) 2 puff Q4H PRN INH WHEEZING AND SOB; Start 10/23/16 at 23:45 Metoclopramide HCl (Reglan) 5 mg Q6 PO Last administered on 10/29/16 17:33; Admin Dose 5 MG; Start 10/24/16 at 00:00 Pantoprazole (Protonix Tab) 40 mg DAILY@06 PO Last administered on 10/29/16 05 :19; Admin Dose 40 MG; Start 10/24/16 at 06:00 Miscellaneous Information (Pending [facility] Order For Wound Care) This patient sexton... PRN PRN XX WOUND CARE; Start 10/24/16 at 05:30 Nicotine (Nicoderm 14 Mg/ 24hr) 1 patch DAILY TRANSDERM Last administered on 08:31; Admin Dose 1 PATCH; Start 10/25/16 at 09:00 Vitamin A/Vitamin D (Vitamin A & D Oint) ONE APPLICATION rt thigh BID TOP Last administered on 10/29/16 20:50; Admin Dose 1 APPLIC; Start 10/24/16 at 15:30 Docusate Sodium (Colace) 100 mg BID PO Last administered on 10/29/16 20:38; Admin Dose 100 MG; Start 10/24/16 at 15:30 Lactobacillus Acidophilus/ Rhamnosus (Culturelle) 1 cap BID PO Last administered on 10/29/16 20:37; Admin Dose 1 CAP; Start 10/24/16 at 16:30 Carisoprodol (Soma) 350 mg Q8H PRN PO pain Last administered on 10/29/16 20:55 ; Admin Dose 350 MG; Start 10/24/16 at 21:30 Apixaban (Eliquis) 5 mg BID PO Last administered on 10/29/16 20:38; Admin Dose 5 MG; Start 10/25/16 at 21:00 Zolpidem Tartrate (Ambien) 5 mg QHS PRN PO INSOMNIA Last administered on 23:52; Admin Dose 5 MG; Start 10/25/16 at 11:00 Fluconazole (Diflucan) 100 mg DAILY PO Last administered on 10/29/16 08:33; Admin Dose 100 MG; Start 10/25/16 at 14:30 Losartan Potassium 100 mg 100 mg DAILY PO Last administered on 10/29/16 08:33 ; Admin Dose 100 MG; Start 10/26/16 at 10:00 Vancomycin HCl (Vancocin) 250 ml @ 125 mls/hr Q72H IVPB Last administered on 16:12; Admin Dose 125 MLS/HR; Start 10/27/16 at 16:00 Insulin Detemir (Levemir) 45 unit DAILY@20 SC Last administered on 10/29/16 20 :48; Admin Dose 45 UNIT; Start 10/26/16 at 20:00 Diagnostic Test (Pha) (Accu-Chek) 1 ea 02 XX Last administered on 10/28/16 02: 11; Admin Dose 1 EA; Start 10/27/16 at 02:00 Salmeterol Xinafoate/ Fluticasone (Advair 250/50 Diskus) 1 inh BID INH Last administered on 10/29/16 08:34; Admin Dose 1 INH; Start 10/27/16 at 12:00 Lidocaine (Lidocaine 5% Oint) 1 applic TID PRN TOP PAIN Last administered on 19:47; Admin Dose 1 APPLIC; Start 10/27/16 at 15:15 Tramadol HCl (Ultram) 50 mg Q6 PRN PO pain Last administered on 10/29/16 03:56 ; Admin Dose 50 MG; Start 10/27/16 at 17:30 Ondansetron HCl (Zofran Inj) 4 mg Q6H PRN IV NAUSEA AND/OR VOMITING Last administered on 10/28/16 19:03; Admin Dose 4 MG; Start 10/28/16 at 19:00 Morphine Sulfate (morphine) 2 mg Q4H PRN IV PAIN Last administered on 18:29; Admin Dose 2 MG; Start 10/29/16 at 05:09 Miscellaneous Information (*Rx Drug Level Order Reminder*) 1 ONCE ONCE XX ; Start 10/30/16 at 15:00; Stop 10/30/16 at 15:01 TODD RAMIRES NP Oct 29, 2016 21:11
[2016-10-30] VITALS (10 sets, daily range): BP systolic 100–117; BP diastolic 53–68; PULSE 98–110; RESP 18–20
[2016-10-30] MEDS: BENZONATATE 100 MG CAP PO SCH ×4 (00:31→16:50)
[2016-10-30] MEDS: OXYCODONE/ACETAMINOPHEN (10/325) TAB PO PRN ×4 (00:31→19:14)
[2016-10-30] MEDS: METOCLOPRAMIDE 5 MG TAB PO SCH ×4 (00:31→16:50)
[2016-10-30] MEDS: ACCU-CHEK XX SCH (02:00)
[2016-10-30] MEDS: ZOLPIDEM 5 MG TAB PO PRN ×2 (02:56→20:57)
[2016-10-30] MEDS: morphine 2 MG INJ IV PRN ×2 (02:57→13:48)
[2016-10-30] MEDS: FUROSEMIDE 40 MG TAB PO SCH (05:12)
[2016-10-30] MEDS: PANTOPRAZOLE (EC) 40 MG TAB PO SCH (05:12)
[2016-10-30] MEDS: INSULIN ASPART [NOVOLOG] 3 ML PEN SC SCH ×7 (08:15→20:57)
[2016-10-30] MEDS: DILTIAZEM (SR) 60 MG CAP PO SCH ×2 (09:00→20:56)
[2016-10-30] MEDS: AMLODIPINE 5 MG TAB PO SCH (09:00)
[2016-10-30] MEDS: METOPROLOL 50 MG TAB PO SCH ×2 (09:00→20:56)
[2016-10-30] MEDS: LOSARTAN 50 MG TAB PO SCH (09:00)
[2016-10-30] MEDS: TIOTROPIUM 18 MCG CAPSULE INHA DEV INH SCH (09:14)
[2016-10-30] MEDS: PYRIDOXINE 50 MG TAB PO SCH (09:14)
[2016-10-30] MEDS: VITAMIN A & D 5 GM OINT PACKET TOP SCH ×2 (09:14→20:57)
[2016-10-30] MEDS: CINACALCET 30 MG TAB PO SCH (09:15)
[2016-10-30] MEDS: CALCIUM ACETATE 667 MG CAP PO SCH ×3 (09:15→16:47)
[2016-10-30] MEDS: APIXABAN 5 MG TABLET PO SCH ×2 (09:15→20:56)
[2016-10-30] MEDS: LACTOBACILLUS RHAMNOSUS CAP PO SCH ×2 (09:15→20:56)
[2016-10-30] MEDS: ASPIRIN 81 MG TAB PO SCH (09:15)
[2016-10-30] MEDS: DOCUSATE SODIUM 100 MG CAP PO SCH ×2 (09:15→20:56)
[2016-10-30] MEDS: MONTELUKAST 10 MG TAB PO SCH (09:15)
[2016-10-30] MEDS: FLUCONAZOLE 100 MG TAB PO SCH (09:20)
[2016-10-30] MEDS: SALMETEROL/FLUTICASONE 250/50 INHA INH SCH ×2 (09:27→20:56)
[2016-10-30] MEDS: NICOTINE (14 MG/24 HR) PATCH TRANSDERM SCH (09:30)
[2016-10-30] MEDS: CARISOPRODOL 350 MG TAB PO PRN (13:10)
--- NOTE | 2016-10-30 13:41 | PN ---
Date/Time of Note Date/Time of Note DATE: 10/30/16 TIME: 13:40 Assessment/Plan VTE Prophylaxis VTE Prophylaxis Intervention: other (eliquis) Lines/Catheters IV Catheter Type (from Nrsg): Saline Lock Urinary Cath still in place: No Assessment/Plan Assessment/Plan 61 yo F with pmhx ESRD on HD, DM2, obesity, HTN, admitted for nausea/vomiting thought to be due to a missed HD session. Pt previously discharged 6.7 after a stay for a LE wound. Remains admitted pending dispo to SNF/[facility]. #ESRD with recent missed HD session: nephrology following, appreciate HD assistance #discharge planning: PT/OT/sw refs placed #LLE wound with wound vac: cont wound vac abx as per ID #AFib: cont ATC #HTN: cont home meds #HL: cont statin ?chronic pain: cont home soma Prophx: full ATC with eliquis dispo pending [facility] Subjective 24 Hr Interval Summary Free Text/Dictation Still no BM. Awaiting short term placement Exam/Review of Systems Vital Signs Vitals Vital Signs Date Time Temp Pulse Resp B/P Pulse Ox O2 Delivery O2 Flow Rate FiO2 10/30/16 12:39 98 18 10/30/16 07:52 97.6 104/68 92 Intake and Output 10/29/16 10/29/16 10/30/16 15:00 23:00 07:00 Intake Total 1200 ml 200 ml Output Total 150 ml Balance 1200 ml 50 ml Exam nad, sitting up in bed no mrg lungs clear obese no rashes Results Results 24 hrs Laboratory Tests Test 10/29/16 17:36 10/29/16 20:36 10/30/16 08:14 10/30/16 11:51 Bedside Glucose 90 74 84 116 Medications Medications Current Medications Acetaminophen (Tylenol Tab) 650 mg Q6H PRN PO PAIN AND OR ELEVATED TEMP Last administered on 10/28/16t 12:15; Admin Dose 650 MG; Start 10/23/16 at 23:00 Miscellaneous Information 1 ea NOTE XX ; Start 10/23/16 at 23:30 Glucose (Glutose) 15 gm Q15M PRN PO DECREASED GLUCOSE; Start 10/23/16 at 23:30 Glucose (Glutose) 22.5 gm Q15M PRN PO DECREASED GLUCOSE; Start 10/23/16 at 23: 30 Dextrose (D50w Syringe) 25 ml Q15M PRN IV DECREASED GLUCOSE; Start 10/23/16 at 23:30 Dextrose (D50w Syringe) 50 ml Q15M PRN IV DECREASED GLUCOSE; Start 10/23/16 at 23:30 Glucagon (Glucagen) 1 mg Q15M PRN IM DECREASED GLUCOSE; Start 10/23/16 at 23:30 Glucose (Glutose) 15 gm Q15M PRN BUCCAL DECREASED GLUCOSE; Start 10/23/16 at 23 :30 Amlodipine Besylate (Norvasc) 5 mg DAILY PO Last administered on 10/29/16 08: 33; Admin Dose 5 MG; Start 10/24/16 at 09:00 Aspirin (Aspirin) 81 mg DAILY PO Last administered on 10/30/16 09:15; Admin Dose 81 MG; Start 10/24/16 at 09:00 Atorvastatin Calcium (Lipitor) 40 mg QHS PO Last administered on 10/29/16 20: 37; Admin Dose 40 MG; Start 10/24/16 at 21:00 Benzonatate (Tessalon) 100 mg Q6 PO Last administered on 10/30/16 05:12; Admin Dose 100 MG; Start 10/24/16 at 00:00 Cinacalcet (Sensipar) 30 mg DAILY PO Last administered on 10/30/16 09:15; Admin Dose 30 MG; Start 10/24/16 at 09:00 Diltiazem HCl (Cardizem Sr) 60 mg Q12 PO Last administered on 10/29/16 20:39; Admin Dose 60 MG; Start 10/24/16 at 09:00 Furosemide (Lasix) 80 mg DAILY@06 PO Last administered on 10/30/16 05:12; Admin Dose 80 MG; Start 10/24/16 at 06:00 Montelukast Sodium (Singulair) 10 mg QAM PO Last administered on 10/30/16 09: 15; Admin Dose 10 MG; Start 10/24/16 at 09:00 Oxycodone/ Acetaminophen (Endocet (10/ 325)) 1 tab Q6 PRN PO PRN Last administered on 10/30/16 09:20; Admin Dose 1 TAB; Start 10/23/16 at 23:30 Pyridoxine HCl (Vitamin B6) 50 mg DAILY PO Last administered on 10/30/16 09:14 ; Admin Dose 50 MG; Start 10/24/16 at 09:00 Tiotropium [place] (Spiriva) 1 inh DAILY INH Last administered on 10/30/16 09: 14; Admin Dose 1 INH; Start 10/24/16 at 09:00 Metoprolol Tartrate (Lopressor) 50 mg BID PO Last administered on 10/29/16 20: 39; Admin Dose 50 MG; Start 10/24/16 at 09:00 Albuterol (Ventolin Hfa) 2 puff Q4H PRN INH WHEEZING AND SOB; Start 10/23/16 at 23:45 Metoclopramide HCl (Reglan) 5 mg Q6 PO Last administered on 10/30/16 05:12; Admin Dose 5 MG; Start 10/24/16 at 00:00 Pantoprazole (Protonix Tab) 40 mg DAILY@06 PO Last administered on 10/30/16 05 :12; Admin Dose 40 MG; Start 10/24/16 at 06:00 Miscellaneous Information (Pending [facility] Order For Wound Care) This patient sexton... PRN PRN XX WOUND CARE; Start 10/24/16 at 05:30 Nicotine (Nicoderm 14 Mg/ 24hr) 1 patch DAILY TRANSDERM Last administered on 09:30; Admin Dose 1 PATCH; Start 10/25/16 at 09:00 Vitamin A/Vitamin D (Vitamin A & D Oint) ONE APPLICATION rt thigh BID TOP Last administered on 10/30/16 09:14; Admin Dose 1 APPLIC; Start 10/24/16 at 15:30 Docusate Sodium (Colace) 100 mg BID PO Last administered on 10/30/16 09:15; Admin Dose 100 MG; Start 10/24/16 at 15:30 Lactobacillus Acidophilus/ Rhamnosus (Culturelle) 1 cap BID PO Last administered on 10/30/16 09:15; Admin Dose 1 CAP; Start 10/24/16 at 16:30 Carisoprodol (Soma) 350 mg Q8H PRN PO pain Last administered on 10/30/16 13:10 ; Admin Dose 350 MG; Start 10/24/16 at 21:30 Apixaban (Eliquis) 5 mg BID PO Last administered on 10/30/16 09:15; Admin Dose 5 MG; Start 10/25/16 at 21:00 Zolpidem Tartrate (Ambien) 5 mg QHS PRN PO INSOMNIA Last administered on 02:56; Admin Dose 5 MG; Start 10/25/16 at 11:00 Fluconazole (Diflucan) 100 mg DAILY PO Last administered on 10/30/16 09:20; Admin Dose 100 MG; Start 10/25/16 at 14:30 Losartan Potassium 100 mg 100 mg DAILY PO Last administered on 10/29/16 08:33 ; Admin Dose 100 MG; Start 10/26/16 at 10:00 Vancomycin HCl (Vancocin) 250 ml @ 125 mls/hr Q72H IVPB Last administered on 16:12; Admin Dose 125 MLS/HR; Start 10/27/16 at 16:00 Insulin Detemir (Levemir) 45 unit DAILY@20 SC Last administered on 10/29/16 20 :48; Admin Dose 45 UNIT; Start 10/26/16 at 20:00 Diagnostic Test (Pha) (Accu-Chek) 1 ea 02 XX Last administered on 10/28/16 02: 11; Admin Dose 1 EA; Start 10/27/16 at 02:00 Salmeterol Xinafoate/ Fluticasone (Advair 250/50 Diskus) 1 inh BID INH Last administered on 10/30/16 09:27; Admin Dose 1 INH; Start 10/27/16 at 12:00 Lidocaine (Lidocaine 5% Oint) 1 applic TID PRN TOP PAIN Last administered on 19:47; Admin Dose 1 APPLIC; Start 10/27/16 at 15:15 Tramadol HCl (Ultram) 50 mg Q6 PRN PO pain Last administered on 10/29/16 03:56 ; Admin Dose 50 MG; Start 10/27/16 at 17:30 Ondansetron HCl (Zofran Inj) 4 mg Q6H PRN IV NAUSEA AND/OR VOMITING Last administered on 10/28/16 19:03; Admin Dose 4 MG; Start 10/28/16 at 19:00 Morphine Sulfate (morphine) 2 mg Q4H PRN IV PAIN Last administered on 02:57; Admin Dose 2 MG; Start 10/29/16 at 05:09 Miscellaneous Information (*Rx Drug Level Order Reminder*) 1 ONCE ONCE XX ; Start 10/30/16 at 15:00; Stop 10/30/16 at 15:01 LUIS E DUFFY MD Oct 30, 2016 13:41
[2016-10-30] MEDS: POLYETHYLENE GLYCOL 17 GM PACKET PO SCH (14:53)
[2016-10-30] MEDS ORDERED: ERGOCALCIFEROL 50,000 UNIT CAP PO SCH (15:00)
[2016-10-30] MEDS: VANCOMYCIN 1 GM in NS 250 ML IVPB SCH (16:47)
[2016-10-30] MEDS: LIDOCAINE 5% 35 GM OINT TOP PRN (17:39)
[2016-10-30] MEDS: INSULIN DETEMIR [LEVEMIR] 3ML CART SC SCH (20:00)
[2016-10-30] MEDS ORDERED: morphine 2 MG INJ IV PRN (20:30)
[2016-10-30] MEDS: ATORVASTATIN 40 MG TAB PO SCH (20:56)
[2016-10-31] MEDS: METOCLOPRAMIDE 5 MG TAB PO SCH ×5 (00:51→23:12)
[2016-10-31] MEDS: BENZONATATE 100 MG CAP PO SCH ×5 (00:51→23:11)
[2016-10-31] MEDS: morphine 2 MG INJ IV PRN ×3 (00:52→07:00)
[2016-10-31] MEDS: ACCU-CHEK XX SCH (02:00)
[2016-10-31] MEDS: PANTOPRAZOLE (EC) 40 MG TAB PO SCH (06:02)
[2016-10-31] MEDS: FUROSEMIDE 40 MG TAB PO SCH (06:02)
[2016-10-31 08:15] VITALS: BP 115/62; RESP 18
[2016-10-31] MEDS: INSULIN ASPART [NOVOLOG] 3 ML PEN SC SCH ×7 (08:50→21:00)
[2016-10-31] MEDS: CALCIUM ACETATE 667 MG CAP PO SCH ×3 (08:52→18:56)
[2016-10-31] MEDS: SALMETEROL/FLUTICASONE 250/50 INHA INH SCH ×2 (08:53→21:00)
[2016-10-31] MEDS: ASPIRIN 81 MG TAB PO SCH (08:54)
[2016-10-31] MEDS: TIOTROPIUM 18 MCG CAPSULE INHA DEV INH SCH (08:54)
[2016-10-31] MEDS: DILTIAZEM (SR) 60 MG CAP PO SCH ×2 (08:55→21:30)
[2016-10-31] MEDS: FLUCONAZOLE 100 MG TAB PO SCH (08:56)
[2016-10-31] MEDS: DOCUSATE SODIUM 100 MG CAP PO SCH ×2 (08:56→21:30)
[2016-10-31] MEDS: LACTOBACILLUS RHAMNOSUS CAP PO SCH ×2 (08:56→21:30)
[2016-10-31] MEDS: LOSARTAN 50 MG TAB PO SCH (08:56)
[2016-10-31] MEDS: METOPROLOL 50 MG TAB PO SCH ×2 (08:57→21:31)
[2016-10-31] MEDS: APIXABAN 5 MG TABLET PO SCH ×2 (08:57→21:30)
[2016-10-31] MEDS: POLYETHYLENE GLYCOL 17 GM PACKET PO SCH (08:57)
[2016-10-31] MEDS: CINACALCET 30 MG TAB PO SCH (08:57)
[2016-10-31] MEDS: AMLODIPINE 5 MG TAB PO SCH (08:57)
[2016-10-31] MEDS: MONTELUKAST 10 MG TAB PO SCH (08:58)
[2016-10-31] MEDS: VITAMIN A & D 5 GM OINT PACKET TOP SCH ×2 (08:58→21:29)
[2016-10-31] MEDS: PYRIDOXINE 50 MG TAB PO SCH (08:58)
[2016-10-31] MEDS: NICOTINE (14 MG/24 HR) PATCH TRANSDERM SCH (08:58)
--- NOTE | 2016-10-31 11:43 | PN ---
Date/Time of Note Date/Time of Note DATE: 10/31/16 TIME: 11:42 Assessment/Plan VTE Prophylaxis VTE Prophylaxis Intervention: SCD's Lines/Catheters IV Catheter Type (from Nrsg): Saline Lock Urinary Cath still in place: No Assessment/Plan Assessment/Plan 61 yo F with pmhx ESRD on HD, DM2, obesity, HTN, admitted for nausea/vomiting thought to be due to a missed HD session. Pt previously discharged 6.7 after a stay for a LE wound. Remains admitted pending dispo to SNF/[facility]. #ESRD with recent missed HD session: nephrology following, appreciate HD assistance #discharge planning: PT/OT/sw refs placed #LLE wound with wound vac: cont wound vac abx as per ID #AFib: cont ATC #HTN: cont home meds #HL: cont statin ?chronic pain: cont home soma Prophx: full ATC with eliquis dispo pending [facility] Subjective 24 Hr Interval Summary Free Text/Dictation didn't realize she couldn't smoke e cigarettes in the hospital Exam/Review of Systems Vital Signs Vitals Vital Signs Date Time Temp Pulse Resp B/P Pulse Ox O2 Delivery O2 Flow Rate FiO2 10/31/16 08:15 97.6 91 18 115/62 90 Intake and Output 10/30/16 10/30/16 10/31/16 15:00 23:00 07:00 Intake Total 500 ml 1910 ml 450 ml Output Total 3000 ml 0 ml Balance -2500 ml 1910 ml 450 ml Exam nad sitting up in bed no mrg lungs clear abd soft LEs unchanged Results Results 24 hrs Laboratory Tests Test 10/30/16 11:51 10/30/16 20:30 10/31/16 08:08 Bedside Glucose 116 84 170 Medications Medications Current Medications Acetaminophen (Tylenol Tab) 650 mg Q6H PRN PO PAIN AND OR ELEVATED TEMP Last administered on 10/28/16t 12:15; Admin Dose 650 MG; Start 10/23/16 at 23:00 Miscellaneous Information 1 ea NOTE XX ; Start 10/23/16 at 23:30 Glucose (Glutose) 15 gm Q15M PRN PO DECREASED GLUCOSE; Start 10/23/16 at 23:30 Glucose (Glutose) 22.5 gm Q15M PRN PO DECREASED GLUCOSE; Start 10/23/16 at 23: 30 Dextrose (D50w Syringe) 25 ml Q15M PRN IV DECREASED GLUCOSE; Start 10/23/16 at 23:30 Dextrose (D50w Syringe) 50 ml Q15M PRN IV DECREASED GLUCOSE; Start 10/23/16 at 23:30 Glucagon (Glucagen) 1 mg Q15M PRN IM DECREASED GLUCOSE; Start 10/23/16 at 23:30 Glucose (Glutose) 15 gm Q15M PRN BUCCAL DECREASED GLUCOSE; Start 10/23/16 at 23 :30 Amlodipine Besylate (Norvasc) 5 mg DAILY PO Last administered on 10/31/16 08: 57; Admin Dose 5 MG; Start 10/24/16 at 09:00 Aspirin (Aspirin) 81 mg DAILY PO Last administered on 10/31/16 08:54; Admin Dose 81 MG; Start 10/24/16 at 09:00 Atorvastatin Calcium (Lipitor) 40 mg QHS PO Last administered on 10/30/16 20: 56; Admin Dose 40 MG; Start 10/24/16 at 21:00 Benzonatate (Tessalon) 100 mg Q6 PO Last administered on 10/31/16 00:51; Admin Dose 100 MG; Start 10/24/16 at 00:00 Cinacalcet (Sensipar) 30 mg DAILY PO Last administered on 10/31/16 08:57; Admin Dose 30 MG; Start 10/24/16 at 09:00 Diltiazem HCl (Cardizem Sr) 60 mg Q12 PO Last administered on 10/31/16 08:55; Admin Dose 60 MG; Start 10/24/16 at 09:00 Furosemide (Lasix) 80 mg DAILY@06 PO Last administered on 10/31/16 06:02; Admin Dose 80 MG; Start 10/24/16 at 06:00 Montelukast Sodium (Singulair) 10 mg QAM PO Last administered on 10/31/16 08: 58; Admin Dose 10 MG; Start 10/24/16 at 09:00 Oxycodone/ Acetaminophen (Endocet (10/ 325)) 1 tab Q6 PRN PO PRN Last administered on 10/30/16 19:14; Admin Dose 1 TAB; Start 10/23/16 at 23:30 Pyridoxine HCl (Vitamin B6) 50 mg DAILY PO Last administered on 10/31/16 08:58 ; Admin Dose 50 MG; Start 10/24/16 at 09:00 Tiotropium [place] (Spiriva) 1 inh DAILY INH Last administered on 10/31/16 08: 54; Admin Dose 1 INH; Start 10/24/16 at 09:00 Metoprolol Tartrate (Lopressor) 50 mg BID PO Last administered on 10/31/16 08: 57; Admin Dose 50 MG; Start 10/24/16 at 09:00 Albuterol (Ventolin Hfa) 2 puff Q4H PRN INH WHEEZING AND SOB; Start 10/23/16 at 23:45 Metoclopramide HCl (Reglan) 5 mg Q6 PO Last administered on 10/31/16 06:02; Admin Dose 5 MG; Start 10/24/16 at 00:00 Pantoprazole (Protonix Tab) 40 mg DAILY@06 PO Last administered on 10/31/16 06 :02; Admin Dose 40 MG; Start 10/24/16 at 06:00 Miscellaneous Information (Pending [facility] Order For Wound Care) This patient sexton... PRN PRN XX WOUND CARE; Start 10/24/16 at 05:30 Vitamin A/Vitamin D (Vitamin A & D Oint) ONE APPLICATION rt thigh BID TOP Last administered on 10/31/16 08:58; Admin Dose 1 APPLIC; Start 10/24/16 at 15:30 Docusate Sodium (Colace) 100 mg BID PO Last administered on 10/31/16 08:56; Admin Dose 100 MG; Start 10/24/16 at 15:30 Lactobacillus Acidophilus/ Rhamnosus (Culturelle) 1 cap BID PO Last administered on 10/31/16 08:56; Admin Dose 1 CAP; Start 10/24/16 at 16:30 Carisoprodol (Soma) 350 mg Q8H PRN PO pain Last administered on 10/30/16 13:10 ; Admin Dose 350 MG; Start 10/24/16 at 21:30 Apixaban (Eliquis) 5 mg BID PO Last administered on 10/31/16 08:57; Admin Dose 5 MG; Start 10/25/16 at 21:00 Zolpidem Tartrate (Ambien) 5 mg QHS PRN PO INSOMNIA Last administered on 20:57; Admin Dose 5 MG; Start 10/25/16 at 11:00 Fluconazole (Diflucan) 100 mg DAILY PO Last administered on 10/31/16 08:56; Admin Dose 100 MG; Start 10/25/16 at 14:30 Losartan Potassium (Cozaar) 100 mg DAILY PO Last administered on 10/31/16 08: 56; Admin Dose 100 MG; Start 10/26/16 at 10:00 Insulin Detemir (Levemir) 45 unit DAILY@20 SC Last administered on 10/29/16 20 :48; Admin Dose 45 UNIT; Start 10/26/16 at 20:00 Diagnostic Test (Pha) (Accu-Chek) 1 ea 02 XX Last administered on 10/28/16 02: 11; Admin Dose 1 EA; Start 10/27/16 at 02:00 Salmeterol Xinafoate/ Fluticasone (Advair 250/50 Diskus) 1 inh BID INH Last administered on 10/31/16 08:53; Admin Dose 1 INH; Start 10/27/16 at 12:00 Lidocaine (Lidocaine 5% Oint) 1 applic TID PRN TOP PAIN Last administered on 17:39; Admin Dose 1 APPLIC; Start 10/27/16 at 15:15 Tramadol HCl (Ultram) 50 mg Q6 PRN PO pain Last administered on 10/29/16 03:56 ; Admin Dose 50 MG; Start 10/27/16 at 17:30 Ondansetron HCl (Zofran Inj) 4 mg Q6H PRN IV NAUSEA AND/OR VOMITING Last administered on 10/28/16 19:03; Admin Dose 4 MG; Start 10/28/16 at 19:00 Polyethylene Glycol (Miralax) 17 gm DAILY PO Last administered on 10/31/16 08: 57; Admin Dose 17 GM; Start 10/30/16 at 14:00 Ergocalciferol (Drisdol) 50,000 unit Q7D PO ; Start 10/30/16 at 15:00 Morphine Sulfate 3 mg 3 mg Q3H PRN IV PAIN Last administered on 10/31/16 07:00 ; Admin Dose 3 MG; Start 10/30/16 at 20:30 Vancomycin HCl (Vancocin) 250 ml @ 125 mls/hr Q96H IVPB ; Start 11/03/16 at 16: 00 Nicotine (Nicoderm 21 Mg/ 24hr) 1 patch DAILY TRANSDERM ; Start 11/01/16 at 09: 00 LUIS E DUFFY MD Oct 31, 2016 11:43
--- NOTE | 2016-10-31 17:26 | CONS ---
Date/Time of Note Date/Time of Note DATE: 10/31/16 TIME: 17:25 Assessment/Plan Assessment/Plan Chief Complaint/Hosp Course SUBJECTIVE: No events, no fevers, alert, feels good, nad Abx: Vanco, Diflucan Micro: Previous wound cx grew Enterococcus/Corynebacterium/Giselle parapsilosis PHYSICAL EXAMINATION: GENERAL: Morbidly obese, well-developed, elderly woman who is in no distress. HEENT: Head atraumatic, normocephalic. Sclerae anicteric. Buccal mucosa dry. NECK: Supple. CHEST: Rise symmetrical. Breath sounds clear. HEART: S1, S2. ABDOMEN: Soft, bowel sounds present. EXTREMITIES: Without cyanosis. Left upper thigh wound vac present ASSESSMENT: 1. Bilateral lower extremities chronic venous stasis with chronic cellulitis and left hip wound, s/p debridement and wound vac application 10/19/16. 2. End-stage renal disease, on hemodialysis. 3. Left upper extremity arteriovenous fistula. 4. Obesity. 5. Atrial fibrillation. PLAN: Remains stable, s/p Gentamicin dose 10/26/16, continue abx, local wound care per vascular rec-s, will keep on Vanco and Diflucan for 2 more weeks [facility] staff Problems: Consultation Date/Type/Reason Admit Date/Time Oct 24, 2016 at 12:02 Initial Consult Date 10/23/16 Type of Consultation: ID Exam/Review of Systems Vital Signs Vitals Vital Signs Date Time Temp Pulse Resp B/P Pulse Ox O2 Delivery O2 Flow Rate FiO2 10/31/16 08:15 97.6 91 18 115/62 90 Intake and Output 10/30/16 10/30/16 10/31/16 15:00 23:00 07:00 Intake Total 500 ml 1910 ml 450 ml Output Total 3000 ml 0 ml Balance -2500 ml 1910 ml 450 ml Results Results 24 hrs Laboratory Tests Test 10/30/16 20:30 10/31/16 08:08 10/31/16 12:55 Bedside Glucose 84 170 262 H Medications Medications Current Medications Acetaminophen (Tylenol Tab) 650 mg Q6H PRN PO PAIN AND OR ELEVATED TEMP Last administered on 10/28/16t 12:15; Admin Dose 650 MG; Start 10/23/16 at 23:00 Miscellaneous Information 1 ea NOTE XX ; Start 10/23/16 at 23:30 Glucose (Glutose) 15 gm Q15M PRN PO DECREASED GLUCOSE; Start 10/23/16 at 23:30 Glucose (Glutose) 22.5 gm Q15M PRN PO DECREASED GLUCOSE; Start 10/23/16 at 23: 30 Dextrose (D50w Syringe) 25 ml Q15M PRN IV DECREASED GLUCOSE; Start 10/23/16 at 23:30 Dextrose (D50w Syringe) 50 ml Q15M PRN IV DECREASED GLUCOSE; Start 10/23/16 at 23:30 Glucagon (Glucagen) 1 mg Q15M PRN IM DECREASED GLUCOSE; Start 10/23/16 at 23:30 Glucose (Glutose) 15 gm Q15M PRN BUCCAL DECREASED GLUCOSE; Start 10/23/16 at 23 :30 Amlodipine Besylate (Norvasc) 5 mg DAILY PO Last administered on 10/31/16 08: 57; Admin Dose 5 MG; Start 10/24/16 at 09:00 Aspirin (Aspirin) 81 mg DAILY PO Last administered on 10/31/16 08:54; Admin Dose 81 MG; Start 10/24/16 at 09:00 Atorvastatin Calcium (Lipitor) 40 mg QHS PO Last administered on 10/30/16 20: 56; Admin Dose 40 MG; Start 10/24/16 at 21:00 Benzonatate (Tessalon) 100 mg Q6 PO Last administered on 10/31/16 00:51; Admin Dose 100 MG; Start 10/24/16 at 00:00 Cinacalcet (Sensipar) 30 mg DAILY PO Last administered on 10/31/16 08:57; Admin Dose 30 MG; Start 10/24/16 at 09:00 Diltiazem HCl (Cardizem Sr) 60 mg Q12 PO Last administered on 10/31/16 08:55; Admin Dose 60 MG; Start 10/24/16 at 09:00 Furosemide (Lasix) 80 mg DAILY@06 PO Last administered on 10/31/16 06:02; Admin Dose 80 MG; Start 10/24/16 at 06:00 Montelukast Sodium (Singulair) 10 mg QAM PO Last administered on 10/31/16 08: 58; Admin Dose 10 MG; Start 10/24/16 at 09:00 Oxycodone/ Acetaminophen (Endocet (10/ 325)) 1 tab Q6 PRN PO PRN Last administered on 10/30/16 19:14; Admin Dose 1 TAB; Start 10/23/16 at 23:30 Pyridoxine HCl (Vitamin B6) 50 mg DAILY PO Last administered on 10/31/16 08:58 ; Admin Dose 50 MG; Start 10/24/16 at 09:00 Tiotropium [place] (Spiriva) 1 inh DAILY INH Last administered on 10/31/16 08: 54; Admin Dose 1 INH; Start 10/24/16 at 09:00 Metoprolol Tartrate (Lopressor) 50 mg BID PO Last administered on 10/31/16 08: 57; Admin Dose 50 MG; Start 10/24/16 at 09:00 Albuterol (Ventolin Hfa) 2 puff Q4H PRN INH WHEEZING AND SOB; Start 10/23/16 at 23:45 Metoclopramide HCl (Reglan) 5 mg Q6 PO Last administered on 10/31/16 13:17; Admin Dose 5 MG; Start 10/24/16 at 00:00 Pantoprazole (Protonix Tab) 40 mg DAILY@06 PO Last administered on 10/31/16 06 :02; Admin Dose 40 MG; Start 10/24/16 at 06:00 Miscellaneous Information (Pending [facility] Order For Wound Care) This patient sexton... PRN PRN XX WOUND CARE; Start 10/24/16 at 05:30 Vitamin A/Vitamin D (Vitamin A & D Oint) ONE APPLICATION rt thigh BID TOP Last administered on 10/31/16 08:58; Admin Dose 1 APPLIC; Start 10/24/16 at 15:30 Docusate Sodium (Colace) 100 mg BID PO Last administered on 10/31/16 08:56; Admin Dose 100 MG; Start 10/24/16 at 15:30 Lactobacillus Acidophilus/ Rhamnosus (Culturelle) 1 cap BID PO Last administered on 10/31/16 08:56; Admin Dose 1 CAP; Start 10/24/16 at 16:30 Carisoprodol (Soma) 350 mg Q8H PRN PO pain Last administered on 10/30/16 13:10 ; Admin Dose 350 MG; Start 10/24/16 at 21:30 Apixaban (Eliquis) 5 mg BID PO Last administered on 10/31/16 08:57; Admin Dose 5 MG; Start 10/25/16 at 21:00 Zolpidem Tartrate (Ambien) 5 mg QHS PRN PO INSOMNIA Last administered on 20:57; Admin Dose 5 MG; Start 10/25/16 at 11:00 Fluconazole (Diflucan) 100 mg DAILY PO Last administered on 10/31/16 08:56; Admin Dose 100 MG; Start 10/25/16 at 14:30 Losartan Potassium (Cozaar) 100 mg DAILY PO Last administered on 10/31/16 08: 56; Admin Dose 100 MG; Start 10/26/16 at 10:00 Insulin Detemir (Levemir) 45 unit DAILY@20 SC Last administered on 10/29/16 20 :48; Admin Dose 45 UNIT; Start 10/26/16 at 20:00 Diagnostic Test (Pha) (Accu-Chek) 1 ea 02 XX Last administered on 10/28/16 02: 11; Admin Dose 1 EA; Start 10/27/16 at 02:00 Salmeterol Xinafoate/ Fluticasone (Advair 250/50 Diskus) 1 inh BID INH Last administered on 10/31/16 08:53; Admin Dose 1 INH; Start 10/27/16 at 12:00 Lidocaine (Lidocaine 5% Oint) 1 applic TID PRN TOP PAIN Last administered on 17:39; Admin Dose 1 APPLIC; Start 10/27/16 at 15:15 Tramadol HCl (Ultram) 50 mg Q6 PRN PO pain Last administered on 10/29/16 03:56 ; Admin Dose 50 MG; Start 10/27/16 at 17:30 Ondansetron HCl (Zofran Inj) 4 mg Q6H PRN IV NAUSEA AND/OR VOMITING Last administered on 10/28/16 19:03; Admin Dose 4 MG; Start 10/28/16 at 19:00 Polyethylene Glycol (Miralax) 17 gm DAILY PO Last administered on 10/31/16 08: 57; Admin Dose 17 GM; Start 10/30/16 at 14:00 Ergocalciferol 64900 unit 50,000 unit Q7D PO ; Start 10/30/16 at 15:00 Vancomycin HCl (Vancocin) 250 ml @ 125 mls/hr Q96H IVPB ; Start 11/03/16 at 16: 00 Nicotine (Nicoderm 21 Mg/ 24hr) 1 patch DAILY TRANSDERM ; Start 11/01/16 at 09: 00 TODD RAMIRES NP Oct 31, 2016 17:26
[2016-10-31] MEDS: CARISOPRODOL 350 MG TAB PO PRN (19:05)
[2016-10-31 20:18] VITALS: BP 109/55; RESP 18
[2016-10-31] MEDS: ATORVASTATIN 40 MG TAB PO SCH (21:29)
[2016-10-31] MEDS: OXYCODONE/ACETAMINOPHEN (10/325) TAB PO PRN (21:30)
[2016-10-31] MEDS: INSULIN DETEMIR [LEVEMIR] 3ML CART SC SCH (21:37)
[2016-10-31] MEDS: ZOLPIDEM 5 MG TAB PO PRN (23:12)
[2016-10-31] MEDS: traMADol 50 MG TAB PO PRN (23:14)
[2016-11-01] VITALS (7 sets, daily range): BP systolic 90–143; BP diastolic 55–69; PULSE 108–113; RESP 18–20
[2016-11-01] MEDS: ACCU-CHEK XX SCH (02:00)
[2016-11-01] MEDS: PANTOPRAZOLE (EC) 40 MG TAB PO SCH (05:08)
[2016-11-01] MEDS: METOCLOPRAMIDE 5 MG TAB PO SCH ×4 (05:08→23:35)
[2016-11-01] MEDS: BENZONATATE 100 MG CAP PO SCH ×4 (05:08→23:35)
[2016-11-01] MEDS: FUROSEMIDE 40 MG TAB PO SCH (05:11)
[2016-11-01] MEDS: OXYCODONE/ACETAMINOPHEN (10/325) TAB PO PRN ×4 (05:17→23:35)
[2016-11-01] MEDS: APIXABAN 5 MG TABLET PO SCH ×2 (08:14→20:37)
[2016-11-01] MEDS: CALCIUM ACETATE 667 MG CAP PO SCH ×3 (08:14→17:29)
[2016-11-01] MEDS: MONTELUKAST 10 MG TAB PO SCH (08:14)
[2016-11-01] MEDS: CINACALCET 30 MG TAB PO SCH (08:14)
[2016-11-01] MEDS: LACTOBACILLUS RHAMNOSUS CAP PO SCH ×2 (08:14→20:33)
[2016-11-01] MEDS: PYRIDOXINE 50 MG TAB PO SCH (08:14)
[2016-11-01] MEDS: INSULIN ASPART [NOVOLOG] 3 ML PEN SC SCH ×7 (08:15→20:46)
[2016-11-01] MEDS: POLYETHYLENE GLYCOL 17 GM PACKET PO SCH (08:15)
[2016-11-01] MEDS: DOCUSATE SODIUM 100 MG CAP PO SCH ×2 (08:15→20:37)
[2016-11-01] MEDS: ASPIRIN 81 MG TAB PO SCH (08:15)
[2016-11-01] MEDS: FLUCONAZOLE 100 MG TAB PO SCH (08:16)
[2016-11-01] MEDS: SALMETEROL/FLUTICASONE 250/50 INHA INH SCH ×2 (08:16→20:39)
[2016-11-01] MEDS: TIOTROPIUM 18 MCG CAPSULE INHA DEV INH SCH (08:17)
[2016-11-01] MEDS: VITAMIN A & D 5 GM OINT PACKET TOP SCH ×2 (08:17→20:38)
[2016-11-01] MEDS: NICOTINE (21 MG/24 HR) PATCH TRANSDERM SCH (08:18)
[2016-11-01] MEDS: AMLODIPINE 5 MG TAB PO SCH (08:18)
[2016-11-01] MEDS: METOPROLOL 50 MG TAB PO SCH ×2 (08:19→20:40)
[2016-11-01] MEDS: DILTIAZEM (SR) 60 MG CAP PO SCH ×2 (08:20→20:45)
[2016-11-01] MEDS: LOSARTAN 50 MG TAB PO SCH (08:20)
--- NOTE | 2016-11-01 11:04 | CONS ---
Date/Time of Note Date/Time of Note DATE: 11/01/16 TIME: 11:02 Assessment/Plan Assessment/Plan Chief Complaint/Hosp Course - ESRD on DIALYSIS TTS at [facility] - Cellulitis of leg - Anemia - Volume overloaded - Hyperkalemia - Hypertension - Hyperphosphatemia PLAN: Bedside dialysis Feels better Control of her gasseritis Monitor K Antibiotics May need to go to SNF ( she agrees ) Problems: Consultation Date/Type/Reason Admit Date/Time Oct 24, 2016 at 12:02 Initial Consult Date 10/23/16 Type of Consultation: NEPHROLOGY Reason for Consultation - ESRD on Hemodialysis @ [facility] 24 HR Interval Summary Constitutional: improved, no complaints Exam/Review of Systems Vital Signs Vitals Vital Signs Date Time Temp Pulse Resp B/P Pulse Ox O2 Delivery O2 Flow Rate FiO2 11/01/16 09:00 108 11/01/16 07:51 97.4 18 90/57 90 Intake and Output 10/31/16 10/31/16 11/01/16 15:00 23:00 07:00 Intake Total 340 ml Output Total 0 ml 0 ml 150 ml Balance 0 ml 0 ml 190 ml Exam Constitutional: alert, oriented Psych: no complaints Respiratory: crackles/rales Cardiovascular: edema, systolic murmur Gastrointestinal: soft Results Results 24 hrs Laboratory Tests Test 10/31/16 12:55 10/31/16 18:51 10/31/16 21:29 11/01/16 08:26 Bedside Glucose 262 H 184 157 124 Medications Medications Current Medications Acetaminophen (Tylenol Tab) 650 mg Q6H PRN PO PAIN AND OR ELEVATED TEMP Last administered on 10/28/16t 12:15; Admin Dose 650 MG; Start 10/23/16 at 23:00 Miscellaneous Information 1 ea NOTE XX ; Start 10/23/16 at 23:30 Glucose (Glutose) 15 gm Q15M PRN PO DECREASED GLUCOSE; Start 10/23/16 at 23:30 Glucose (Glutose) 22.5 gm Q15M PRN PO DECREASED GLUCOSE; Start 10/23/16 at 23: 30 Dextrose (D50w Syringe) 25 ml Q15M PRN IV DECREASED GLUCOSE; Start 10/23/16 at 23:30 Dextrose (D50w Syringe) 50 ml Q15M PRN IV DECREASED GLUCOSE; Start 10/23/16 at 23:30 Glucagon (Glucagen) 1 mg Q15M PRN IM DECREASED GLUCOSE; Start 10/23/16 at 23:30 Glucose (Glutose) 15 gm Q15M PRN BUCCAL DECREASED GLUCOSE; Start 10/23/16 at 23 :30 Amlodipine Besylate (Norvasc) 5 mg DAILY PO Last administered on 10/31/16 08: 57; Admin Dose 5 MG; Start 10/24/16 at 09:00 Aspirin (Aspirin) 81 mg DAILY PO Last administered on 11/01/16 08:15; Admin Dose 81 MG; Start 10/24/16 at 09:00 Atorvastatin Calcium (Lipitor) 40 mg QHS PO Last administered on 10/31/16 21: 29; Admin Dose 40 MG; Start 10/24/16 at 21:00 Benzonatate (Tessalon) 100 mg Q6 PO Last administered on 11/01/16 05:08; Admin Dose 100 MG; Start 10/24/16 at 00:00 Cinacalcet (Sensipar) 30 mg DAILY PO Last administered on 11/01/16 08:14; Admin Dose 30 MG; Start 10/24/16 at 09:00 Diltiazem HCl (Cardizem Sr) 60 mg Q12 PO Last administered on 10/31/16 21:30; Admin Dose 60 MG; Start 10/24/16 at 09:00 Furosemide (Lasix) 80 mg DAILY@06 PO Last administered on 11/01/16 05:11; Admin Dose 80 MG; Start 10/24/16 at 06:00 Montelukast Sodium (Singulair) 10 mg QAM PO Last administered on 11/01/16 08: 14; Admin Dose 10 MG; Start 10/24/16 at 09:00 Oxycodone/ Acetaminophen (Endocet (10/ 325)) 1 tab Q6 PRN PO PRN Last administered on 11/01/16 10:32; Admin Dose 1 TAB; Start 10/23/16 at 23:30 Pyridoxine HCl (Vitamin B6) 50 mg DAILY PO Last administered on 11/01/16 08:14 ; Admin Dose 50 MG; Start 10/24/16 at 09:00 Tiotropium [place] (Spiriva) 1 inh DAILY INH Last administered on 11/01/16 08: 17; Admin Dose 1 INH; Start 10/24/16 at 09:00 Metoprolol Tartrate (Lopressor) 50 mg BID PO Last administered on 10/31/16 21: 31; Admin Dose 50 MG; Start 10/24/16 at 09:00 Albuterol (Ventolin Hfa) 2 puff Q4H PRN INH WHEEZING AND SOB; Start 10/23/16 at 23:45 Metoclopramide HCl (Reglan) 5 mg Q6 PO Last administered on 11/01/16 05:08; Admin Dose 5 MG; Start 10/24/16 at 00:00 Pantoprazole (Protonix Tab) 40 mg DAILY@06 PO Last administered on 11/01/16 05 :08; Admin Dose 40 MG; Start 10/24/16 at 06:00 Miscellaneous Information (Pending [facility] Order For Wound Care) This patient sexton... PRN PRN XX WOUND CARE; Start 10/24/16 at 05:30 Vitamin A/Vitamin D (Vitamin A & D Oint) ONE APPLICATION rt thigh BID TOP Last administered on 11/01/16 08:17; Admin Dose 1 APPLIC; Start 10/24/16 at 15:30 Docusate Sodium (Colace) 100 mg BID PO Last administered on 11/01/16 08:15; Admin Dose 100 MG; Start 10/24/16 at 15:30 Lactobacillus Acidophilus/ Rhamnosus (Culturelle) 1 cap BID PO Last administered on 11/01/16 08:14; Admin Dose 1 CAP; Start 10/24/16 at 16:30 Carisoprodol (Soma) 350 mg Q8H PRN PO pain Last administered on 10/31/16 19:05 ; Admin Dose 350 MG; Start 10/24/16 at 21:30 Apixaban (Eliquis) 5 mg BID PO Last administered on 11/01/16 08:14; Admin Dose 5 MG; Start 10/25/16 at 21:00 Zolpidem Tartrate (Ambien) 5 mg QHS PRN PO INSOMNIA Last administered on 23:12; Admin Dose 5 MG; Start 10/25/16 at 11:00 Fluconazole (Diflucan) 100 mg DAILY PO Last administered on 11/01/16 08:16; Admin Dose 100 MG; Start 10/25/16 at 14:30 Losartan Potassium (Cozaar) 100 mg DAILY PO Last administered on 10/31/16 08: 56; Admin Dose 100 MG; Start 10/26/16 at 10:00 Insulin Detemir (Levemir) 45 unit DAILY@20 SC Last administered on 10/31/16 21 :37; Admin Dose 45 UNIT; Start 10/26/16 at 20:00 Diagnostic Test (Pha) (Accu-Chek) 1 ea 02 XX Last administered on 10/28/16 02: 11; Admin Dose 1 EA; Start 10/27/16 at 02:00 Salmeterol Xinafoate/ Fluticasone (Advair 250/50 Diskus) 1 inh BID INH Last administered on 10/31/16 08:53; Admin Dose 1 INH; Start 10/27/16 at 12:00 Lidocaine (Lidocaine 5% Oint) 1 applic TID PRN TOP PAIN Last administered on 17:39; Admin Dose 1 APPLIC; Start 10/27/16 at 15:15 Tramadol HCl (Ultram) 50 mg Q6 PRN PO pain Last administered on 10/31/16 23:14 ; Admin Dose 50 MG; Start 10/27/16 at 17:30 Ondansetron HCl (Zofran Inj) 4 mg Q6H PRN IV NAUSEA AND/OR VOMITING Last administered on 10/28/16 19:03; Admin Dose 4 MG; Start 10/28/16 at 19:00 Polyethylene Glycol (Miralax) 17 gm DAILY PO Last administered on 11/01/16 08: 15; Admin Dose 17 GM; Start 10/30/16 at 14:00 Ergocalciferol 95253 unit 50,000 unit Q7D PO ; Start 10/30/16 at 15:00 Vancomycin HCl (Vancocin) 250 ml @ 125 mls/hr Q96H IVPB ; Start 11/03/16 at 16: 00 Nicotine (Nicoderm 21 Mg/ 24hr) 1 patch DAILY TRANSDERM Last administered on 08:18; Admin Dose 1 PATCH; Start 11/01/16 at 09:00 BECKY GAMBLE MD Nov 01, 2016 11:04
[2016-11-01] MEDS ORDERED: Vancomycin Iv Per Pharmacy XX (15:20)
[2016-11-01] MEDS ORDERED: FLUC100T PO (15:20)
--- NOTE | 2016-11-01 15:22 | PDOCDIS ---
Discharge Instructions CONDITION Patient Condition: Stable HOME CARE INSTRUCTIONS: Special Diet: Renal ACTIVITY: Activity Restrictions: Slowly Increase Activity FOLLOW UP/APPOINTMENTS Appointments follow[facility]up at [facility]. OTHER ORDERS: Other Orders: [facility] to cont abx and wound care MARSHAL SHARP MD Nov 01, 2016 15:22
[2016-11-01] MEDS: INSULIN DETEMIR [LEVEMIR] 3ML CART SC SCH (20:35)
[2016-11-01] MEDS: ATORVASTATIN 40 MG TAB PO SCH (20:37)
--- NOTE | 2016-11-01 21:05 | PN ---
Date/Time of Note Date/Time of Note DATE: 11/01/16 TIME: 21:01 Assessment/Plan Lines/Catheters IV Catheter Type (from [facility]): Saline Lock Whitaker in Place (from [facility]): No Assessment/Plan Chief Complaint/Hosp Course -Bilateral lower extremity atherosclerosis with ulcers and claudication. It seems the patient has a component of mixed arterial and venous disease. Upon her noninvasive vascular studies it was identified the patient has infrapopliteal disease. Further, the patient underwent CT angiography that demonstrates the patient having adequate inflow to her popliteal segments which should allow for adequate wound healing of her lateral thigh ulcer. However, the patient's noncompliance and not following up with visitations has prevented her from improving the status of her wound. -Arrange for home health and the patient to have wound followup with us postoperatively. -Continue with antibiotics as recommended. -Bilateral lower extremity venous insufficiency with ulcers (CEAP classification 6). It seems the patient also has a significant history of venous insufficiency, with on and off venous stasis ulcers. At the moment, the patient will require to undergo venous reflux studies that are done as an outpatient, not as an inpatient, to further delineate her superficial and venous system. -Recommend applying an Antoni wrap from the toes all the way up to her upper thigh , for relieving her edema. -End-stage renal disease: The patient at the moment does not have any issues with her left upper extremity fistula and will plan to continue monitoring her fistula, as she does have some areas of neointimal hyperplasia near the arterial anastomosis. This can be followed as an outpatient and a possible fistulogram if there are any issues during her sessions. -Discussed the findings, plan and management with the patient and she understands. -Thank you for allowing us to partake in the care of your patient. Please call with any questions. Problems: Subjective 24 Hr Interval Summary no new vascular events overnight Exam/Review of Systems Vital Signs Vitals Vital Signs Date Time Temp Pulse Resp B/P Pulse Ox O2 Delivery O2 Flow Rate FiO2 11/01/16 19:45 97.9 120 20 105/56 93 Intake and Output 10/31/16 10/31/16 11/01/16 15:00 23:00 07:00 Intake Total 340 ml Output Total 0 ml 0 ml 150 ml Balance 0 ml 0 ml 190 ml Exam Free Text/Dictation GENERAL: Alert and oriented x3, PULMONARY: Clear to auscultation bilaterally CARDIOVASCULAR: S1, S2 present. Irregularly irregular. ABDOMEN: Soft, nontender, nondistended. Bowel sounds positive. Truncal obesity. Large pannus. EXTREMITIES: -Right lower extremity palpable femoral pulse, nonpalpable pedal pulse. Motor and sensory intact. Cap refill 3 to 4 seconds. Edema of 2 to 3+. Presence of lipodermatosclerosis, spider veins, telangiectasias and multiple healed ulcers in the past. -Left lower extremity palpable femoral pulse, nonpalpable pedal pulse. Motor and sensory intact. Cap refill of 3 to 4 seconds. Edema 2 to 3+. Lateral thigh ulcer measuring 5 x 3 x 2, Lower leg with presence of lipodermatosclerosis , multiple healed ulcers on the medial aspect and scabs on her bahena. MAYLIN BROWN MD Nov 01, 2016 21:05
[2016-11-01] MEDS: traMADol 50 MG TAB PO PRN (21:12)
--- NOTE | 2016-11-01 21:51 | PN ---
Date/Time of Note Date/Time of Note DATE: 11/01/16 TIME: 21:51 Assessment/Plan Lines/Catheters IV Catheter Type (from Nrsg): Saline Lock Urinary Cath still in place: No Assessment/Plan Assessment/Plan 61 yo F with pmhx ESRD on HD, DM2, obesity, HTN, admitted for nausea/vomiting thought to be due to a missed HD session. Pt previously discharged 6.7 after a stay for a LE wound. Remains admitted pending dispo to SNF/[facility]. 1. ESRD with recent missed HD session: nephrology following, appreciate HD assistance 2. LLE wound with wound vac: cont wound vac abx as per ID 3. AFib: cont ATC 4. HTN: cont home meds 5. HL: cont statin Exam/Review of Systems Vital Signs Vitals Vital Signs Date Time Temp Pulse Resp B/P Pulse Ox O2 Delivery O2 Flow Rate FiO2 11/01/16 19:45 97.9 120 20 105/56 93 Intake and Output 10/31/16 10/31/16 11/01/16 15:00 23:00 07:00 Intake Total 340 ml Output Total 0 ml 0 ml 150 ml Balance 0 ml 0 ml 190 ml Exam Constitutional: alert, oriented Head: atraumatic, normocephalic Eyes: EOMI, PERRL Respiratory: clear to auscultation Cardiovascular: nl pulses, regular rate and rhythm Gastrointestinal: soft Extremities: edema, other (woundvac in place. bilateral thigh erythema, tenderness, swelling) Results Results 24 hrs Laboratory Tests Test 11/01/16 08:26 11/01/16 12:21 11/01/16 17:31 11/01/16 20:33 Bedside Glucose 124 115 132 147 Medications Medications Current Medications Acetaminophen (Tylenol Tab) 650 mg Q6H PRN PO PAIN AND OR ELEVATED TEMP Last administered on 10/28/16 12:15; Admin Dose 650 MG; Start 10/23/16 at 23:00 Miscellaneous Information 1 ea NOTE XX ; Start 10/23/16 at 23:30 Glucose (Glutose) 15 gm Q15M PRN PO DECREASED GLUCOSE; Start 10/23/16 at 23:30 Glucose (Glutose) 22.5 gm Q15M PRN PO DECREASED GLUCOSE; Start 10/23/16 at 23: 30 Dextrose (D50w Syringe) 25 ml Q15M PRN IV DECREASED GLUCOSE; Start 10/23/16 at 23:30 Dextrose (D50w Syringe) 50 ml Q15M PRN IV DECREASED GLUCOSE; Start 10/23/16 at 23:30 Glucagon (Glucagen) 1 mg Q15M PRN IM DECREASED GLUCOSE; Start 10/23/16 at 23:30 Glucose (Glutose) 15 gm Q15M PRN BUCCAL DECREASED GLUCOSE; Start 10/23/16 at 23 :30 Amlodipine Besylate (Norvasc) 5 mg DAILY PO Last administered on 10/31/16 08: 57; Admin Dose 5 MG; Start 10/24/16 at 09:00 Aspirin (Aspirin) 81 mg DAILY PO Last administered on 11/01/16 08:15; Admin Dose 81 MG; Start 10/24/16 at 09:00 Atorvastatin Calcium (Lipitor) 40 mg QHS PO Last administered on 11/01/16 20: 37; Admin Dose 40 MG; Start 10/24/16 at 21:00 Benzonatate (Tessalon) 100 mg Q6 PO Last administered on 11/01/16 17:29; Admin Dose 100 MG; Start 10/24/16 at 00:00 Cinacalcet (Sensipar) 30 mg DAILY PO Last administered on 11/01/16 08:14; Admin Dose 30 MG; Start 10/24/16 at 09:00 Diltiazem HCl (Cardizem Sr) 60 mg Q12 PO Last administered on 11/01/16 20:45; Admin Dose 60 MG; Start 10/24/16 at 09:00 Furosemide (Lasix) 80 mg DAILY@06 PO Last administered on 11/01/16 05:11; Admin Dose 80 MG; Start 10/24/16 at 06:00 Montelukast Sodium (Singulair) 10 mg QAM PO Last administered on 11/01/16 08: 14; Admin Dose 10 MG; Start 10/24/16 at 09:00 Oxycodone/ Acetaminophen (Endocet (10/ 325)) 1 tab Q6 PRN PO PRN Last administered on 11/01/16 17:43; Admin Dose 1 TAB; Start 10/23/16 at 23:30 Pyridoxine HCl (Vitamin B6) 50 mg DAILY PO Last administered on 11/01/16 08:14 ; Admin Dose 50 MG; Start 10/24/16 at 09:00 Tiotropium [place] (Spiriva) 1 inh DAILY INH Last administered on 11/01/16 08: 17; Admin Dose 1 INH; Start 10/24/16 at 09:00 Metoprolol Tartrate (Lopressor) 50 mg BID PO Last administered on 11/01/16 20: 40; Admin Dose 50 MG; Start 10/24/16 at 09:00 Albuterol (Ventolin Hfa) 2 puff Q4H PRN INH WHEEZING AND SOB; Start 10/23/16 at 23:45 Metoclopramide HCl (Reglan) 5 mg Q6 PO Last administered on 11/01/16 17:28; Admin Dose 5 MG; Start 10/24/16 at 00:00 Pantoprazole (Protonix Tab) 40 mg DAILY@06 PO Last administered on 11/01/16 05 :08; Admin Dose 40 MG; Start 10/24/16 at 06:00 Miscellaneous Information (Pending [facility] Order For Wound Care) This patient sexton... PRN PRN XX WOUND CARE; Start 10/24/16 at 05:30 Vitamin A/Vitamin D (Vitamin A & D Oint) ONE APPLICATION rt thigh BID TOP Last administered on 11/01/16 20:38; Admin Dose 45 APPLIC; Start 10/24/16 at 15:30 Docusate Sodium (Colace) 100 mg BID PO Last administered on 11/01/16 20:37; Admin Dose 100 MG; Start 10/24/16 at 15:30 Lactobacillus Acidophilus/ Rhamnosus (Culturelle) 1 cap BID PO Last administered on 11/01/16 20:33; Admin Dose 1 CAP; Start 10/24/16 at 16:30 Carisoprodol (Soma) 350 mg Q8H PRN PO pain Last administered on 10/31/16 19:05 ; Admin Dose 350 MG; Start 10/24/16 at 21:30 Apixaban (Eliquis) 5 mg BID PO Last administered on 11/01/16 20:37; Admin Dose 5 MG; Start 10/25/16 at 21:00 Zolpidem Tartrate (Ambien) 5 mg QHS PRN PO INSOMNIA Last administered on 23:12; Admin Dose 5 MG; Start 10/25/16 at 11:00 Fluconazole (Diflucan) 100 mg DAILY PO Last administered on 11/01/16 08:16; Admin Dose 100 MG; Start 10/25/16 at 14:30 Losartan Potassium (Cozaar) 100 mg DAILY PO Last administered on 10/31/16 08: 56; Admin Dose 100 MG; Start 10/26/16 at 10:00 Insulin Detemir (Levemir) 45 unit DAILY@20 SC Last administered on 11/01/16 20 :35; Admin Dose 45 UNIT; Start 10/26/16 at 20:00 Diagnostic Test (Pha) (Accu-Chek) 1 ea 02 XX Last administered on 10/28/16 02: 11; Admin Dose 1 EA; Start 10/27/16 at 02:00 Salmeterol Xinafoate/ Fluticasone (Advair 250/50 Diskus) 1 inh BID INH Last administered on 10/31/16 08:53; Admin Dose 1 INH; Start 10/27/16 at 12:00 Lidocaine (Lidocaine 5% Oint) 1 applic TID PRN TOP PAIN Last administered on 17:39; Admin Dose 1 APPLIC; Start 10/27/16 at 15:15 Tramadol HCl (Ultram) 50 mg Q6 PRN PO pain Last administered on 11/01/16 21:12 ; Admin Dose 50 MG; Start 10/27/16 at 17:30 Ondansetron HCl (Zofran Inj) 4 mg Q6H PRN IV NAUSEA AND/OR VOMITING Last administered on 10/28/16 19:03; Admin Dose 4 MG; Start 10/28/16 at 19:00 Polyethylene Glycol (Miralax) 17 gm DAILY PO Last administered on 11/01/16 08: 15; Admin Dose 17 GM; Start 10/30/16 at 14:00 Ergocalciferol 25193 unit 50,000 unit Q7D PO ; Start 10/30/16 at 15:00 Vancomycin HCl (Vancocin) 250 ml @ 125 mls/hr Q96H IVPB ; Start 11/03/16 at 16: 00 Nicotine (Nicoderm 21 Mg/ 24hr) 1 patch DAILY TRANSDERM Last administered on 08:18; Admin Dose 1 PATCH; Start 11/01/16 at 09:00 MARSHAL SHARP MD Nov 01, 2016 21:51
[2016-11-01] MEDS: ZOLPIDEM 5 MG TAB PO PRN (23:35)
[2016-11-02] MEDS: ACCU-CHEK XX SCH (02:00)
[2016-11-02] MEDS: traMADol 50 MG TAB PO PRN ×2 (03:46→11:21)
[2016-11-02] MEDS: METOCLOPRAMIDE 5 MG TAB PO SCH ×2 (06:09→12:53)
[2016-11-02] MEDS: OXYCODONE/ACETAMINOPHEN (10/325) TAB PO PRN ×2 (06:09→13:12)
[2016-11-02] MEDS: BENZONATATE 100 MG CAP PO SCH ×2 (06:09→14:46)
[2016-11-02] MEDS: PANTOPRAZOLE (EC) 40 MG TAB PO SCH (06:09)
[2016-11-02] MEDS: FUROSEMIDE 40 MG TAB PO SCH (06:10)
[2016-11-02 07:44] VITALS: BP 113/56; RESP 18
[2016-11-02] MEDS: INSULIN ASPART [NOVOLOG] 3 ML PEN SC SCH ×4 (08:11→12:15)
[2016-11-02] MEDS: CALCIUM ACETATE 667 MG CAP PO SCH ×2 (08:24→12:53)
[2016-11-02] MEDS: SALMETEROL/FLUTICASONE 250/50 INHA INH SCH (08:28)
[2016-11-02] MEDS: TIOTROPIUM 18 MCG CAPSULE INHA DEV INH SCH (08:46)
[2016-11-02] MEDS: ASPIRIN 81 MG TAB PO SCH (08:46)
[2016-11-02] MEDS: LOSARTAN 50 MG TAB PO SCH (08:46)
[2016-11-02] MEDS: CINACALCET 30 MG TAB PO SCH (08:46)
[2016-11-02] MEDS: DOCUSATE SODIUM 100 MG CAP PO SCH (08:46)
[2016-11-02] MEDS: LACTOBACILLUS RHAMNOSUS CAP PO SCH (08:46)
[2016-11-02] MEDS: POLYETHYLENE GLYCOL 17 GM PACKET PO SCH (08:47)
[2016-11-02] MEDS: VITAMIN A & D 5 GM OINT PACKET TOP SCH (08:47)
[2016-11-02] MEDS: DILTIAZEM (SR) 60 MG CAP PO SCH (08:47)
[2016-11-02] MEDS: PYRIDOXINE 50 MG TAB PO SCH (08:47)
[2016-11-02] MEDS: APIXABAN 5 MG TABLET PO SCH (08:47)
[2016-11-02] MEDS: FLUCONAZOLE 100 MG TAB PO SCH (08:47)
[2016-11-02] MEDS: METOPROLOL 50 MG TAB PO SCH (08:47)
[2016-11-02] MEDS: NICOTINE (21 MG/24 HR) PATCH TRANSDERM SCH (08:48)
[2016-11-02] MEDS: AMLODIPINE 5 MG TAB PO SCH (08:48)
[2016-11-02] MEDS: MONTELUKAST 10 MG TAB PO SCH (08:57)
[2016-11-02] MEDS: LIDOCAINE 5% 35 GM OINT TOP PRN (14:07)
[2016-11-03] MEDS ORDERED: VANCOMYCIN 1 GM in NS 250 ML IVPB SCH (16:00)
== END 2016-11-02 16:45 | DRG 602 ==
LOC: E/R 13:43 → TEL 20:59 → OBSVTOIN 10-24 12:02 → MS2 10-28 21:24
PROVIDERS: ADMIT Internal Medicine; ATTEND Internal Medicine
PROC: 5A1D60Z (ICD-10-PCS; principal; 2016-10-24)
DX: L03.115 Cellulitis of right lower limb (principal); N18.6 End stage renal disease; E11.22 Type 2 diabetes mellitus with diabetic chronic kidney disease; I12.0 Hypertensive chronic kidney disease with stage 5 chronic kidney disease or end stage renal disease; I48.91 Unspecified atrial fibrillation; N39.0 Urinary tract infection, site not specified; L97.929 Non-pressure chronic ulcer of unspecified part of left lower leg with unspecified severity; L97.919 Non-pressure chronic ulcer of unspecified part of right lower leg with unspecified severity; L97.129 Non-pressure chronic ulcer of left thigh with unspecified severity; E11.51 Type 2 diabetes mellitus with diabetic peripheral angiopathy without gangrene; L03.116 Cellulitis of left lower limb; J44.9 Chronic obstructive pulmonary disease, unspecified; E11.40 Type 2 diabetes mellitus with diabetic neuropathy, unspecified; E66.9 Obesity, unspecified; Z68.39 Body mass index [BMI] 39.0-39.9, adult; E87.5 Hyperkalemia; R11.2 Nausea with vomiting, unspecified; E83.39 Other disorders of phosphorus metabolism; E87.70 Fluid overload, unspecified; K21.9 Gastro-esophageal reflux disease without esophagitis; M54.2 Cervicalgia; F17.210 Nicotine dependence, cigarettes, uncomplicated; I70.249 Atherosclerosis of native arteries of left leg with ulceration of unspecified site; I70.239 Atherosclerosis of native arteries of right leg with ulceration of unspecified site; I87.2 Venous insufficiency (chronic) (peripheral); K59.00 Constipation, unspecified; E11.36 Type 2 diabetes mellitus with diabetic cataract; D63.8 Anemia in other chronic diseases classified elsewhere; Z91.19 Patient's noncompliance with other medical treatment and regimen; Z79.4 Long term (current) use of insulin; Z91.81 History of falling; Z99.2 Dependence on renal dialysis; Z79.82 Long term (current) use of aspirin; Z88.0 Allergy status to penicillin; Z79.01 Long term (current) use of anticoagulants; Z88.2 Allergy status to sulfonamides
CPT/HCPCS: 36415; 71010; 72050; 72072; 72100; 74000; 80048; 80053; 80202; 81001; 82306; 82962; 83036; 83690; 83735; 84100; 84443; 84484; 85025; 85610; 87081; 87086; 90935; 93005; 93306; 96374; 97003; 97110; 97116; 97162; 97167; 97530; G0378; J0696; J1580; J1650; J1815; J2270; J2405; J3370; J7040; P9612

== ENCOUNTER 2016-11-03 00:17 | Emergency (ER) | payer OTHER ==
[~2016-11-03] VITALS: Ht 165.1 cm; Wt 100.0 kg
[2016-11-03 00:17] VITALS: Ht 165.1 cm; Wt 100.0 kg
[~2016-11-03 00:17] MED LIST changes: +FLUC100T PO; +Vancomycin Iv Per Pharmacy XX
--- NOTE | 2016-11-03 01:03 | ERD ---
ER Documentation Chief Complaint Date/Time DATE: 11/03/16 TIME: 01:02 Chief Complaint HPI This is a 7-year-old female was dischargedfrom the hospital and sent to a fdc facility. Patient refused to be admitted and essentially came back. She complains of chronic pain. Her complaint is that she has chronic pain and she was too tired to be admitted there. She has no new complaints. ROS All systems reviewed and are negative except as per history of present illness. Medications Home Meds Active Scripts [Vancomycin Iv Per Pharmacy] 1 EA EACH No Conflict Check, 0 EA XX .PER PROTOCOL for 14 Days Prov:MARSHAL SHARP MD 11/01/16 Fluconazole* (Diflucan*) 100 Mg Tablet, 100 MG PO DAILY for 14 Days, TAB Prov:MARSHAL SHARP MD 11/01/16 Reported Medications Tiotropium [place]* (Spiriva*) 18 Mcg Cap.w.dev, 1 CAP INHALATION DAILY, #30 CAP 09/09/16 Insulin Detemir (Levemir Flextouch) 100 Unit/1 Ml Insuln.pen, 90 UNIT SQ 09/09/16 Montelukast Sodium* (Montelukast Sodium*) 10 Mg Tablet, 10 MG PO QAM, #30 TAB 09/09/16 Apixaban* (Eliquis*) 5 Mg Tablet, 5 MG PO BID, TAB 09/09/16 Calcium Acetate* (Phoslo*) 667 Mg Tablet, 667 MG PO WITH MEALS, TAB TAKE 4 TAB 09/09/16 Pyridoxine Hcl* (Pyridoxine Hcl*) 50 Mg Tablet, 50 MG PO DAILY, TAB 09/09/16 Zolpidem Tartrate* (Zolpidem Tartrate*) 5 Mg Tablet, 5 MG PO QHS Y for INSOMNIA , #30 TAB 09/09/16 Oxycodone HCl/Acetaminophen (Percocet 10-325 mg Tablet) 1 Each Tablet, 1 EACH PO Q6 Y for PRN, TAB 09/09/16 Budesonide-Formoterol Fumarate* (Symbicort*) 160-4.5 Hfa.aer.ad, 2 PUFF INHALATION BID, #1 EACH 12/19/15 Furosemide* (Furosemide*) 80 Mg Tablet, 80 MG PO DAILY, #30 TAB 12/19/15 Benzonatate* (Tessalon Perle*) 100 Mg Capsule, 100 MG PO Q6, CAP 12/19/15 Atorvastatin* (Atorvastatin*) 40 Mg Tablet, 40 MG PO QHS, #30 TAB 12/19/15 Amlodipine Besylate* (Amlodipine Besylate*) 5 Mg Tablet, 5 MG PO DAILY, #30 TAB 12/19/15 Losartan Potassium* (Losartan Potassium*) 50 Mg Tablet, 50 MG PO BID, TAB 12/19/15 Cinacalcet* (Sensipar*) 30 Mg Tab, 30 MG PO, TAB 12/19/15 Diltiazem Hcl* (Cardizem SR*) 60 Mg Capsr, 60 MG PO Q12, #60 CAP 12/19/15 Metoprolol Succinate* (Toprol XL*) 50 Mg Tab.er.24h, 50 MG PO DAILY, #30 TAB 12/19/15 Metoclopramide* (Reglan*) 5 Mg Tablet, 5 MG PO AC MEALS, TAB 12/19/15 Aspirin* (Aspirin* Chew) 81 Mg Tab.chew, 81 MG PO DAILY, TAB.CHEW 12/19/15 Albuterol Sulfate* (Proair HFA*) 8.5 Gm Hfa.aer.ad, 2 PUFF INH Q4H Y for WHEEZING AND SOB, INH 06/12/14 Omeprazole* (Prilosec*) 40 Mg Capsule.dr, 40 MG PO DAILY 08/31/12 Allergies Allergies: Coded Allergies: Penicillins (Unverified Allergy, Severe, ALL OVER BODY RASH, 10/13/16) ciprofloxacin (Unverified Allergy, Severe, TENDONITIS, 10/13/16) PMhx/Soc History of Surgery: Yes Anesthesia Reaction: No Hx Neurological Disorder: No Hx Respiratory Disorders: Yes (COPD, Asthma) Hx Cardiac Disorders: Yes (CHF) Hx Psychiatric Problems: No Hx Miscellaneous Medical Probl: Yes (ESRD on HD, A-fib, DM2, obesity, HTN, chronic L thigh wound) Hx Alcohol Use: Yes Hx Substance Use: No Hx Tobacco Use: Yes Physical Exam Physical Exam Const: [] Head: Atraumatic Eyes: Normal Conjunctiva ENT: Normal External Ears, Nose and Mouth. Neck: Full range of motion..~ No meningismus. Resp: Clear to auscultation bilaterally Cardio: Regular rate and rhythm, no murmurs Abd: Soft, non tender, non distended. Normal bowel sounds Skin: No petechiae or rashes Back: No midline or flank tenderness Ext: No cyanosis, or edema Neur: Awake and alert Psych: Normal Mood and Affect Procedures/MDM This is a 61-year-old female who comes in essentially for no new complaints. At this point she does not have an emergent condition. Patient will be discharged. Departure Diagnosis: Primary Impression: Chronic pain Chronic pain type: chronic pain syndrome Qualified Code: G89.4 - Chronic pain syndrome Condition: Stable Patient Instructions: Chronic Pain MARSHAL VILLASENOR Nov 03, 2016 01:03
[2016-11-03 01:55] VITALS: BP 124/64; PULSE 98; RESP 20
== END 2016-11-03 01:57 | disposition home or self-care (01) ==
LOC: E/R 00:17
DX: G89.4 Chronic pain syndrome (principal); J44.9 Chronic obstructive pulmonary disease, unspecified; I12.0 Hypertensive chronic kidney disease with stage 5 chronic kidney disease or end stage renal disease; N18.6 End stage renal disease; I50.9 Heart failure, unspecified; E11.9 Type 2 diabetes mellitus without complications; E66.9 Obesity, unspecified; Z68.36 Body mass index [BMI] 36.0-36.9, adult; Z99.2 Dependence on renal dialysis; Z87.891 Personal history of nicotine dependence; Z79.82 Long term (current) use of aspirin; Z79.4 Long term (current) use of insulin
CPT/HCPCS: 82962; Z7502; 99282

== ENCOUNTER 2016-11-11 06:36 | Inpatient (IN) | payer OTHER ==
[2016-11-11] VITALS (15 sets, daily range): BP systolic 80–113; BP diastolic 32–82; PULSE 82–120; RESP 18–20; Ht 165.1 cm; Wt 120.0 kg
[~2016-11-11] VITALS: Ht 165.1 cm; Wt 120.0 kg
[2016-11-11] MEDS ORDERED: CARI350T29 PO (09:21)
--- NOTE | 2016-11-11 09:21 | HP ---
Date/Time of Note Date/Time of Note DATE: 11/11/16 TIME: 09:20 Assessment/Plan VTE Prophylaxis VTE Prophylaxis Intervention: other (full A TC) Assessment/Plan Assessment/Plan 61 yo F with pmhx ESRD on HD, DM2, obesity, HTN admitted following ground level fall at home. Labs at OSH notable for leukocytosis, mildly elevated lactate and volume overload on CXR. Pt without any fevers, coughing, sputum production therefore she has no clinical signs of CAP. Hold additional abx PLAN PT eval for ankle recheck CXR and labs after HD supply person consulted vascular surgeon notified of pt's admission given he is overseeing her wound vac cont all home meds for AFib, DM, chronic pain, ESRD, COPD of note, HR >goal of 100. Will inc ccb or BB if BP allows CM cs for HHPT anticipate discharge in AM with HHPT if labs improve HPI/ROS Admit Date/Time Admit Date/Time Nov 11, 2016 at 06:40 Hx of Present Illness 61 yo F with pmhx ESRD on HD, DM2, obesity, HTN admitted following ground level fall at home. Pt with recent hospital stay here 6.-19 for volume overload 2/2 missed HD. Pt was sent to a SNF at discharge for MAYUR, however pt states she left after 3 hours at the SNF because she was dissatisfied with the facility. Since returning home pt has been getting regular visits from a nurse to help with her chronic wounds and her wound vac. Pt denies any chest pain, new cough or SOB. Pt states that she tripped over her L ankle last night, which was the cause of her ground level fall. No head trauma or LOC. After her fall last night, pt was taken by EMS to [facility]. noted to be in AFib/flutter with HR in low 100s. LA 3.4, WBCs 19.3, CXR with fluid v infiltrate. Currently pt feels in her USOH. Requesting a referral for HH PT. PMH/Family/Social Past Medical History as per HPI Past Surgical History Past Surgical Hx: other Exam/Review of Systems Vital Signs Vitals Vital Signs Date Time Temp Pulse Resp B/P Pulse Ox O2 Delivery O2 Flow Rate FiO2 11/11/16 09:17 119 11/11/16 09:08 97.4 18 99/52 97 11/11/16 07:05 Nasal Cannula 2.0 Exam Exam nad, sitting up in bed, rifling through her purse for 's phone # EOMI MMM irreg irreg lungs clear abd soft wound vac site c/d/i no change to chronic wounds on LEs from my previous eval of this patient 2 weeks ago 5/5 strength bl LEs, LEs with sensorium intact to light touch, position sense nl no rashes labs from OSH reviewed, WBCs 19 as noted above Procedures Procedures OSH ankle imaging without evidence of fracture LUIS E DUFFY MD Nov 11, 2016 09:21
[2016-11-11] MEDS ORDERED: NON-FORMULARY/PATIENT OWN MED (Omeprazole* (Prilosec*) 40 MG) PO SCH (09:30)
[2016-11-11] MEDS ORDERED: NON-FORMULARY/PATIENT OWN MED ([Vancomycin Iv Per Pharmacy] (Vanco Iv Per Pharmacy) 0 EA) XX SCH (09:30)
[2016-11-11] MEDS ORDERED: NON-FORMULARY/PATIENT OWN MED (Budesonide-Formoterol Fumarate* (Symbicort*) 2 PUFF) INHALATION SCH (09:30)
[2016-11-11] MEDS ORDERED: NACL 0.9% 3 ML SYG IV SCH (10:00)
[2016-11-11] MEDS ORDERED: DOCUSATE SODIUM 100 MG CAP PO PRN (10:00)
[2016-11-11] MEDS ORDERED: VANCOMYCIN IV PER PHARMACY XX SCH (10:30)
[2016-11-11] MEDS: FUROSEMIDE 40 MG TAB PO SCH (10:59)
[2016-11-11] MEDS: AMLODIPINE 5 MG TAB PO SCH (10:59)
[2016-11-11] MEDS: LOSARTAN 50 MG TAB PO SCH ×2 (10:59→20:39)
[2016-11-11] MEDS: METOPROLOL (XL) 50 MG TAB PO SCH ×2 (11:00→20:42)
[2016-11-11] MEDS: MONTELUKAST 10 MG TAB PO SCH (11:00)
[2016-11-11] MEDS ORDERED: ALBUTEROL HFA 8 GM INHALER INH PRN ×2 (11:00)
[2016-11-11] MEDS: CINACALCET 30 MG TAB PO SCH (11:00)
[2016-11-11] MEDS: SALMETEROL/FLUTICASONE 250/50 INHA INH SCH ×2 (11:00→20:39)
[2016-11-11] MEDS: TIOTROPIUM 18 MCG CAPSULE INHA DEV INH SCH (11:17)
[2016-11-11] MEDS: APIXABAN 5 MG TABLET PO SCH ×2 (11:18→22:28)
[2016-11-11] MEDS: PYRIDOXINE 50 MG TAB PO SCH (11:18)
[2016-11-11] MEDS: ASPIRIN 81 MG TAB PO SCH (11:18)
[2016-11-11] MEDS: METOCLOPRAMIDE 5 MG TAB PO SCH ×2 (11:21→17:39)
[2016-11-11] MEDS: CALCIUM ACETATE 667 MG CAP PO SCH ×2 (12:00→17:39)
[2016-11-11] MEDS: INSULIN ASPART [NOVOLOG] 3 ML PEN SC SCH ×3 (12:00→22:55)
[2016-11-11] MEDS ORDERED: VANCOMYCIN 1 GM in NS 250 ML IVPB SCH (12:00)
[2016-11-11] MEDS: BENZONATATE 100 MG CAP PO SCH ×2 (12:00→17:39)
[2016-11-11] MEDS: ALBUMIN HUMAN 25% 100 ML IV SCH ×2 (12:00→12:25)
[2016-11-11 12:13] LABS: ADD SCAN DIFF NO
[2016-11-11 12:33] LABS: ABNORMAL IP MESSAGE 1; HEMATOCRIT 20.3 % (37.0-47.0); MEAN CORPUSCULAR HEMOGLOBIN 29.9 pg (29.0-33.0); MEAN CORPUSCULAR HGB CONC 31.5 g/dl (32.0-37.0); MEAN CORPUSCULAR VOLUME 94.9 fl (82.0-101.0); MEAN PLATELET VOLUME 9.4 fl (7.4-10.4); PLATELET COUNT 465 10^3/UL (140-415); RED BLOOD COUNT 2.14 10^6/ul (4.20-5.40); RED CELL DISTRIBUTION WIDTH 20.3 % (11.5-14.5); WHITE BLOOD COUNT 13.1 10^3/ul (4.8-10.8)
[2016-11-11 12:37] LABS: HEMOGLOBIN 6.4 g/dl (12.0-16.0)
[2016-11-11 12:40] LABS: CALCIUM 8.7 mg/dl (8.4-10.2); CREATININE 5.07 mg/dl (0.44-1.00)
[2016-11-11 12:49] LABS: POTASSIUM 5.1 mmol/L (3.5-5.1)
[2016-11-11 13:05] LABS: EOSINOPHILS # 0.3 10^3/ul (0.0-0.5); MONOCYTE # 0.8 10^3/ul (0.3-0.9); NEUTROPHIL # 10.9 10^3/ul (1.6-7.5)
--- NOTE | 2016-11-11 13:31 | CONS ---
Date/Time of Note Date/Time of Note DATE: 11/11/16 TIME: 13:25 Assessment/Plan Assessment/Plan Chief Complaint/Hosp Course - ESRD on Hemodialysis TTS @ [facility] - POST FALL - ACUTE ANEMIA - Hx of Cellulitis - CAD/CHF - Hx of Hypertension PLAN: On bedside dialysis now Minimal UF due to low BP ? Acute Anemia post fall ? Needs work up including intenal bleeding , GI Bleeding Will Transfuse PRBC on dialysis May need rxtra HD in AM due to ongoing anemia & need for more blood transfusion & the minimal UF done today Start EPOGEN Start IV Iron Check Iron status Problems: Consultation Date/Type/Reason Admit Date/Time Nov 11, 2016 at 06:40 Date of Consultation: Nov 11, 2016 Type of Consultation: NEPHROLOGY Reason for Consultation - ESRD Hemodialysis dependent Constitutional: no complaints Eyes: no complaints ENT: no complaints Respiratory: no complaints Cardiovascular: no complaints Gastrointestinal: no complaints Genitourinary: no complaints Musculoskeletal: no complaints Past Medical History Medical History: coronary artery disease, GI bleed, high cholesterol, hypertension Past Surgical History Past Surgical Hx: other Family History Significant Family History: no pertinent family hx Social History Alcohol Use: none Smoking Status: Former smoker Drug Use: none Exam/Review of Systems Vital Signs Vitals Vital Signs Date Time Temp Pulse Resp B/P Pulse Ox O2 Delivery O2 Flow Rate FiO2 11/11/16 12:40 108 11/11/16 09:08 97.4 18 99/52 97 11/11/16 07:05 Nasal Cannula 2.0 Exam Constitutional: alert, oriented Psych: no complaints Head: normocephalic Eyes: nl conjunctiva Neck: supple Respiratory: crackles/rales Cardiovascular: edema, regular rate and rhythm, systolic murmur Gastrointestinal: soft Results Result Diagram: 11/11/16 1140 11/11/16 1140 Results 24 hrs Laboratory Tests Test 11/11/16 11:40 11/11/16 12:05 White Blood Count 13.1 H Red Blood Count 2.14 L Hemoglobin 6.4 *L Hematocrit 20.3 #L Mean Corpuscular Volume 94.9 Mean Corpuscular Hemoglobin 29.9 Mean Corpuscular Hemoglobin Concent 31.5 L Red Cell Distribution Width 20.3 H Platelet Count 465 #H Mean Platelet Volume 9.4 Neutrophils % 83.0 H Band Neutrophils % 1.0 Lymphocytes % 8.0 L Monocytes % 6.0 Eosinophils % 2.0 Nucleated Red Blood Cells % 1.0 H Neutrophils # 10.9 H Lymphocytes # 1.0 Monocytes # 0.8 Eosinophils # 0.3 Sodium Level 130 L Potassium Level 5.1 Chloride Level 94 L Carbon Dioxide Level 23 Anion Gap 18 H Blood Urea Nitrogen 43 H Creatinine 5.07 H Glucose Level 119 Calcium Level 8.7 Bedside Glucose 135 Medications Medications Current Medications Amlodipine Besylate (Norvasc) 5 mg DAILY PO ; Start 11/11/16 at 09:30 Apixaban (Eliquis) 5 mg BID PO ; Start 11/11/16 at 09:30 Aspirin (Aspirin) 81 mg DAILY PO ; Start 11/11/16 at 09:30 Atorvastatin Calcium (Lipitor) 40 mg QHS PO ; Start 11/11/16 at 21:00 Benzonatate (Tessalon) 100 mg Q6 PO ; Start 11/11/16 at 12:00 Carisoprodol (Soma) 350 mg Q8 PRN PO MUSCLE SPASMS; Start 11/11/16 at 12:00 Cinacalcet (Sensipar) 30 mg DAILY PO ; Start 11/11/16 at 11:00 Diltiazem HCl (Cardizem Sr) 60 mg Q12 PO ; Start 11/11/16 at 21:00 Furosemide (Lasix) 80 mg DAILY PO ; Start 11/11/16 at 09:30 Insulin Detemir (Levemir) 90 unit QHS SC ; Start 11/11/16 at 21:00 Losartan Potassium (Cozaar) 50 mg BID PO ; Start 11/11/16 at 09:30 Metoprolol Succinate (Toprol Xl) 50 mg BID PO ; Start 11/11/16 at 09:30 Montelukast Sodium (Singulair) 10 mg QAM PO ; Start 11/11/16 at 11:00 Oxycodone/ Acetaminophen (Endocet (10/ 325)) 1 tab Q6 PRN PO PRN; Start at 12:00 Pyridoxine HCl (Vitamin B6) 50 mg DAILY PO ; Start 11/11/16 at 09:30 Tiotropium [place] (Spiriva) 1 inh DAILY INH Last administered on 11/11/16t 11: 17; Admin Dose 1 INH; Start 11/11/16 at 11:00 Zolpidem Tartrate (Ambien) 5 mg QHS PRN PO INSOMNIA; Start 11/11/16 at 09:30 Ondansetron HCl (Zofran Tab) 4 mg Q6H PRN PO NAUSEA AND/OR VOMITING; Start at 10:00 Docusate Sodium (Colace) 100 mg Q12H PRN PO CONSTIPATION; Start 11/11/16 at 10: 00 Diagnostic Test (Pha) (Accu-Chek) 1 ea 02 XX ; Start 11/12/16 at 02:00 Salmeterol Xinafoate/ Fluticasone (Advair 250/50 Diskus) 1 inh BID INH ; Start 11/11/16 at 11:00 Vancomycin HCl (Vanco Iv Per Pharmacy) PER PHARMACY DOSING NOTE XX ; Start 11/11 at 10:30 Albuterol (Ventolin Hfa) 2 puff Q4H PRN INH AOB; Start 11/11/16 at 10:30 Pantoprazole 40 mg 40 mg DAILY@06 PO ; Start 11/12/16 at 06:00 Vancomycin HCl (Vancocin) 250 ml @ 125 mls/hr ONCE IVPB ; Start 11/11/16 at 12: 00; Stop 11/11/16 at 13:59 BECKY GAMBLE MD Nov 11, 2016 13:31
[2016-11-11] MEDS: ATORVASTATIN 40 MG TAB PO SCH (20:38)
[2016-11-11] MEDS: DILTIAZEM (SR) 60 MG CAP PO SCH (20:38)
[2016-11-11] MEDS: OXYCODONE/ACETAMINOPHEN (10/325) TAB PO PRN (20:39)
[2016-11-11] MEDS ORDERED: INSULIN DETEMIR [LEVEMIR] 3ML CART SC SCH (21:00)
[2016-11-11] MEDS ORDERED: VANCOMYCIN 500MG/NS (PMX) 100 ML IVPB SCH (21:00)
[2016-11-11] MEDS: SOD FERRIC GLUC COMPLX 125 MG in SOD CHLORIDE 0.9% 100 ML IVPB SCH (22:35)
[2016-11-11] MEDS: EPOETIN 10000 UNITS/1 ML INJ (ESRD) SC SCH (22:43)
[2016-11-12] VITALS (14 sets, daily range): BP systolic 84–126; BP diastolic 38–76; PULSE 86–118; RESP 16–20
[2016-11-12] MEDS: ACCU-CHEK XX SCH (02:30)
[2016-11-12] MEDS: OXYCODONE/ACETAMINOPHEN (10/325) TAB PO PRN ×4 (04:04→22:01)
[2016-11-12] MEDS: BENZONATATE 100 MG CAP PO SCH ×4 (05:14→17:24)
[2016-11-12] MEDS ORDERED: PANTOPRAZOLE (EC) 40 MG TAB PO SCH (06:00)
[2016-11-12] MEDS: INSULIN ASPART [NOVOLOG] 3 ML PEN SC SCH ×4 (08:00→20:20)
[2016-11-12 08:06] LABS: ABNORMAL IP MESSAGE 1; BASOPHIL # 0.1 10^3/ul (0.0-0.1); BASOPHILS % 0.3 % (0.0-2.0); EOSINOPHILS # 0.3 10^3/ul (0.0-0.5); EOSINOPHILS % 1.9 % (0.0-7.0); HEMATOCRIT 23.4 % (37.0-47.0); HEMOGLOBIN 7.2 g/dl (12.0-16.0); LYMPHOCYTES # 1.3 10^3/ul (0.8-2.9); LYMPHOCYTES % 7.7 % (15.0-51.0); MEAN CORPUSCULAR HEMOGLOBIN 29.4 pg (29.0-33.0); MEAN CORPUSCULAR HGB CONC 30.8 g/dl (32.0-37.0); MEAN CORPUSCULAR VOLUME 95.5 fl (82.0-101.0); MEAN PLATELET VOLUME 9.3 fl (7.4-10.4); MONOCYTE # 2.6 10^3/ul (0.3-0.9); MONOCYTES % 15.9 % (0.0-11.0); NEUTROPHIL # 12.2 10^3/ul (1.6-7.5); NEUTROPHILS % 73.5 % (39.0-77.0); NUCLEATED RED BLOOD CELLS # 0.1 10^3/ul (0.0-0.0); NUCLEATED RED BLOOD CELLS% 0.3 /100WBC (0.0-0.0); PLATELET COUNT 460 10^3/UL (140-415); RED BLOOD COUNT 2.45 10^6/ul (4.20-5.40); RED CELL DISTRIBUTION WIDTH 20.2 % (11.5-14.5); WHITE BLOOD COUNT 16.6 10^3/ul (4.8-10.8)
[2016-11-12 08:10] LABS: ADD SCAN DIFF NO
[2016-11-12] MEDS: FUROSEMIDE 40 MG TAB PO SCH (09:00)
[2016-11-12] MEDS: LOSARTAN 50 MG TAB PO SCH ×2 (09:00→20:19)
[2016-11-12] MEDS: AMLODIPINE 5 MG TAB PO SCH (09:00)
--- NOTE | 2016-11-12 09:21 | CONS ---
Date/Time of Note Date/Time of Note DATE: 11/12/16 TIME: 09:13 Assessment/Plan Assessment/Plan Chief Complaint/Hosp Course Impression: 1. Anemia, need to r/o GIB 2. ESRD 3. Atrial fibrillation Recommendation: 1. check stool for occult blood, if positive then proceed with EGD and colonoscopy (pt also declined any endoscopic procedure unless there is occult positive stool). 2. before any endoscopic procedure, will need cardiac optimization and clearance given her A. fib and cardiac history 3. protonix 40 mg po bid 4. transfuse to keep hgb > 8, INR < 1.5, PLT > 50 Problems: Consultation Date/Type/Reason Admit Date/Time Nov 11, 2016 at 06:40 Date of Consultation: Nov 12, 2016 Type of Consultation: GI Reason for Consultation Anemia r/o GIB Hx of Present Illness 61 yo F with pmhx ESRD on HD, DM2, obesity, HTN who is admitted following ground level fall at home. She was recently hospitalized on for volume overload 2/2 missed HD. Pt was sent to a SNF at discharge for MAYUR, however pt states she left after 3 hours at the SNF because she was dissatisfied with the facility. No chest pain, new cough or SOB. Pt states that she tripped over her L ankle last night, which was the cause of her ground level fall. No head trauma or LOC. After her fall last night, pt was taken by EMS to [place] [facility]. noted to be in AFib/flutter with HR in low 100s. LA 3.4, WBCs 19.3, CXR with fluid v infiltrate. She was found to be anemic and GI consulted to r/o GIB. All point ROS administered, pertinent positives and negatives in HPI otherwise negative. Constitutional: no complaints Eyes: no complaints ENT: no complaints Respiratory: no complaints Cardiovascular: no complaints Gastrointestinal: no complaints Genitourinary: no complaints Musculoskeletal: no complaints Psychological: no complaints Past Medical History Medical History: coronary artery disease, GI bleed, high cholesterol, hypertension Past Surgical History Past Surgical Hx: other Family History Significant Family History: no pertinent family hx Social History Alcohol Use: none Smoking Status: Former smoker Drug Use: none Exam/Review of Systems Vital Signs Vitals Vital Signs Date Time Temp Pulse Resp B/P Pulse Ox O2 Delivery O2 Flow Rate FiO2 11/12/16 08:05 97.9 20 20 86/51 97 11/11/16 20:00 Nasal Cannula 2.0 Intake and Output 11/11/16 11/11/16 11/12/16 15:00 23:00 07:00 Intake Total 500 ml 490 ml 250 ml Output Total 2500 ml Balance -2000 ml 490 ml 250 ml Exam Constitutional: alert, oriented, well developed Psych: nl mood/affect, no complaints Head: atraumatic, normocephalic Eyes: EOMI, nl conjunctiva, nl lids, nl sclera ENMT: mucosa pink and moist, nl external ears & nose, nl lips & teeth, nl nasal mucosa & septum Neck: non-tender, supple Respiratory: clear to auscultation, normal air movement Cardiovascular: irregular rhythm Gastrointestinal: bowel sounds, non-tender, soft Neurological: nl mental status, nl speech, nl strength Results Result Diagram: 11/12/16 0722 11/11/16 1140 Results 24 hrs Laboratory Tests Test 11/11/16 11:40 11/11/16 12:05 11/11/16 17:23 11/11/16 22:36 White Blood Count 13.1 H Red Blood Count 2.14 L Hemoglobin 6.4 *L Hematocrit 20.3 #L Mean Corpuscular Volume 94.9 Mean Corpuscular Hemoglobin 29.9 Mean Corpuscular Hemoglobin Concent 31.5 L Red Cell Distribution Width 20.3 H Platelet Count 465 #H Mean Platelet Volume 9.4 Neutrophils % 83.0 H Band Neutrophils % 1.0 Lymphocytes % 8.0 L Monocytes % 6.0 Eosinophils % 2.0 Nucleated Red Blood Cells % 1.0 H Neutrophils # 10.9 H Lymphocytes # 1.0 Monocytes # 0.8 Eosinophils # 0.3 Sodium Level 130 L Potassium Level 5.1 Chloride Level 94 L Carbon Dioxide Level 23 Anion Gap 18 H Blood Urea Nitrogen 43 H Creatinine 5.07 H Glucose Level 119 Calcium Level 8.7 Bedside Glucose 135 212 228 H Test 11/12/16 02:16 11/12/16 07:22 11/12/16 09:02 Bedside Glucose 135 33 *L White Blood Count 16.6 #H Red Blood Count 2.45 L Hemoglobin 7.2 L Hematocrit 23.4 L Mean Corpuscular Volume 95.5 Mean Corpuscular Hemoglobin 29.4 Mean Corpuscular Hemoglobin Concent 30.8 L Red Cell Distribution Width 20.2 H Platelet Count 460 H Mean Platelet Volume 9.3 Neutrophils % 73.5 Lymphocytes % 7.7 L Monocytes % 15.9 H Eosinophils % 1.9 Basophils % 0.3 Nucleated Red Blood Cells % 0.3 H Neutrophils # 12.2 H Lymphocytes # 1.3 Monocytes # 2.6 H Eosinophils # 0.3 Basophils # 0.1 Nucleated Red Blood Cells # 0.1 H Lactic Acid Level 1.2 Medications Medications Current Medications Amlodipine Besylate (Norvasc) 5 mg DAILY PO ; Start 11/11/16 at 09:30 Apixaban (Eliquis) 5 mg BID PO ; Start 11/11/16 at 09:30 Aspirin (Aspirin) 81 mg DAILY PO ; Start 11/11/16 at 09:30 Atorvastatin Calcium (Lipitor) 40 mg QHS PO Last administered on 11/11/16 20: 38; Admin Dose 40 MG; Start 11/11/16 at 21:00 Benzonatate (Tessalon) 100 mg Q6 PO Last administered on 11/12/16 05:14; Admin Dose 100 MG; Start 11/11/16 at 12:00 Carisoprodol (Soma) 350 mg Q8 PRN PO MUSCLE SPASMS; Start 11/11/16 at 12:00 Cinacalcet (Sensipar) 30 mg DAILY PO ; Start 11/11/16 at 11:00 Diltiazem HCl (Cardizem Sr) 60 mg Q12 PO Last administered on 11/11/16 20:38; Admin Dose 60 MG; Start 11/11/16 at 21:00 Furosemide (Lasix) 80 mg DAILY PO ; Start 11/11/16 at 09:30 Insulin Detemir (Levemir) 90 unit QHS SC Last administered on 11/11/16 22:56; Admin Dose 90 UNIT; Start 11/11/16 at 21:00 Losartan Potassium (Cozaar) 50 mg BID PO Last administered on 11/11/16 20:39; Admin Dose 50 MG; Start 11/11/16 at 09:30 Metoprolol Succinate (Toprol Xl) 50 mg BID PO Last administered on 11/11/16 20 :42; Admin Dose 50 MG; Start 11/11/16 at 09:30 Montelukast Sodium (Singulair) 10 mg QAM PO ; Start 11/11/16 at 11:00 Oxycodone/ Acetaminophen (Endocet (10/ 325)) 1 tab Q6 PRN PO PRN Last administered on 11/12/16 04:04; Admin Dose 1 TAB; Start 11/11/16 at 12:00 Pyridoxine HCl (Vitamin B6) 50 mg DAILY PO ; Start 11/11/16 at 09:30 Tiotropium [place] (Spiriva) 1 inh DAILY INH Last administered on 11/11/16 11: 17; Admin Dose 1 INH; Start 11/11/16 at 11:00 Zolpidem Tartrate (Ambien) 5 mg QHS PRN PO INSOMNIA; Start 11/11/16 at 09:30 Ondansetron HCl (Zofran Tab) 4 mg Q6H PRN PO NAUSEA AND/OR VOMITING; Start at 10:00 Docusate Sodium (Colace) 100 mg Q12H PRN PO CONSTIPATION; Start 11/11/16 at 10: 00 Diagnostic Test (Pha) (Accu-Chek) 1 ea 02 XX Last administered on 11/12/16 02: 30; Admin Dose 1 EA; Start 11/12/16 at 02:00 Salmeterol Xinafoate/ Fluticasone (Advair 250/50 Diskus) 1 inh BID INH Last administered on 11/11/16 20:39; Admin Dose 1 INH; Start 11/11/16 at 11:00 Vancomycin HCl (Vanco Iv Per Pharmacy) PER PHARMACY DOSING NOTE XX ; Start 11/11 at 10:30 Albuterol (Ventolin Hfa) 2 puff Q4H PRN INH AOB; Start 11/11/16 at 10:30 Pantoprazole (Protonix Tab) 40 mg DAILY@06 PO Last administered on 11/12/16 05 :14; Admin Dose 40 MG; Start 11/12/16 at 06:00 Epoetin Hang 25252 units 10,000 units TuThSa@17 SC Last administered on 22:43; Admin Dose 10,000 UNITS; Start 11/11/16 at 17:00 Ferric Sodium Gluconate Complex/ Sodium Chloride (Ferrlecit/NS) 110 ml @ 110 mls/hr Q24H IVPB Last administered on 6/29/17at 22:35; Admin Dose 110 MLS/HR; Start 11/11/16 at 15:00; Stop 11/15/16 at 15:59 Miscellaneous Information (*Rx Drug Level Order Reminder*) VANCO RANDOM LEVEL... ONCE ONCE XX ; Start 11/13/16 at 05:00; Stop 11/13/16 at 05:01 Dextrose (D50w Syringe) 25 ml ONCE ONCE IV ; Start 11/12/16 at 09:30; Stop at 09:31; Status UNCHIP SIDHU MD Nov 12, 2016 09:21
[2016-11-12] MEDS: SALMETEROL/FLUTICASONE 250/50 INHA INH SCH ×2 (09:30→20:16)
[2016-11-12] MEDS: CALCIUM ACETATE 667 MG CAP PO SCH ×3 (09:30→17:25)
[2016-11-12] MEDS: METOCLOPRAMIDE 5 MG TAB PO SCH ×3 (09:30→17:24)
[2016-11-12] MEDS ORDERED: DEXTROSE 50% 50 ML SYRINGE IV ONE (09:30)
[2016-11-12] MEDS: TIOTROPIUM 18 MCG CAPSULE INHA DEV INH SCH (09:31)
[2016-11-12] MEDS: ASPIRIN 81 MG TAB PO SCH (09:31)
[2016-11-12] MEDS: DILTIAZEM (SR) 60 MG CAP PO SCH ×2 (09:32→20:19)
[2016-11-12] MEDS: APIXABAN 5 MG TABLET PO SCH ×2 (09:34→20:19)
[2016-11-12] MEDS: CINACALCET 30 MG TAB PO SCH (09:35)
[2016-11-12] MEDS: MONTELUKAST 10 MG TAB PO SCH (09:35)
[2016-11-12] MEDS: METOPROLOL (XL) 50 MG TAB PO SCH ×2 (09:36→20:19)
[2016-11-12] MEDS: PYRIDOXINE 50 MG TAB PO SCH (09:36)
[2016-11-12] MEDS ORDERED: INSULIN ASPART [NOVOLOG] 3 ML PEN SC SCH (12:00)
--- NOTE | 2016-11-12 14:18 | PN ---
Date/Time of Note Date/Time of Note DATE: 11/12/16 TIME: 14:18 Assessment/Plan VTE Prophylaxis VTE Prophylaxis Intervention: SCD's Lines/Catheters IV Catheter Type (from Nrs): Saline Lock Urinary Cath still in place: No Assessment/Plan Assessment/Plan 61 yo F with pmhx ESRD on HD, DM2, obesity, HTN admitted following ground level fall at home.Labs here notable for acute on chronic anemia, etio unclear. PLAN PT eval for ankle coil tier consulted vascular surgeon notified of pt's admission given he is overseeing her wound vac cont all home meds for AFib, DM, chronic pain, ESRD, COPD of note, HR >goal of 100. Will inc ccb or BB if BP allows CM cs for HHPT anemia: GI source v other GI on consult will transfuse additional unit of pRBCs tomorrow with HD if hgb drops again, will hold ATC hypoglycemia: home insulin regimen clarified Subjective 24 Hr Interval Summary Free Text/Dictation Received clarification from patient that home insulin regimen is actually lantus 45 units qHS and aspart 15 TID AC. hypoglycemia this AM noted. Pt requesting a new bedside table. Not sure if she's been having dark stools. Exam/Review of Systems Vital Signs Vitals Vital Signs Date Time Temp Pulse Resp B/P Pulse Ox O2 Delivery O2 Flow Rate FiO2 11/12/16 11:58 98.0 92 18 84/50 98 11/12/16 09:32 Room Air 11/12/16 09:30 2.0 Intake and Output 11/11/16 11/11/16 11/12/16 15:00 23:00 07:00 Intake Total 500 ml 490 ml 250 ml Output Total 2500 ml Balance -2000 ml 490 ml 250 ml Exam opinionated, laying in bed irreg irreg lungs clear abd soft, obese LE wounds stable hgb post transfusion 7s Results Result Diagram: 11/12/16 0722 11/12/16 1000 Results 24 hrs Laboratory Tests Test 11/11/16 17:23 11/11/16 22:36 11/12/16 02:16 11/12/16 07:22 Bedside Glucose 212 228 H 135 White Blood Count 16.6 #H Red Blood Count 2.45 L Hemoglobin 7.2 L Hematocrit 23.4 L Mean Corpuscular Volume 95.5 Mean Corpuscular Hemoglobin 29.4 Mean Corpuscular Hemoglobin Concent 30.8 L Red Cell Distribution Width 20.2 H Platelet Count 460 H Mean Platelet Volume 9.3 Neutrophils % 73.5 Lymphocytes % 7.7 L Monocytes % 15.9 H Eosinophils % 1.9 Basophils % 0.3 Nucleated Red Blood Cells % 0.3 H Neutrophils # 12.2 H Lymphocytes # 1.3 Monocytes # 2.6 H Eosinophils # 0.3 Basophils # 0.1 Nucleated Red Blood Cells # 0.1 H Lactic Acid Level 1.2 Thyroid Stimulating Hormone (TSH) 5.680 H Test 11/12/16 09:02 11/12/16 09:46 11/12/16 10:00 11/12/16 10:06 Bedside Glucose 33 *L 126 98 Sodium Level 131 L Potassium Level 5.0 Chloride Level 91 L Carbon Dioxide Level 26 Anion Gap 19 H Blood Urea Nitrogen 39 H Creatinine 5.00 H Glucose Level 101 Calcium Level 9.0 Test 11/12/16 11:10 Bedside Glucose 117 Medications Medications Current Medications Amlodipine Besylate (Norvasc) 5 mg DAILY PO ; Start 11/11/16 at 09:30 Apixaban (Eliquis) 5 mg BID PO Last administered on 11/12/16 09:34; Admin Dose 5 MG; Start 11/11/16 at 09:30 Aspirin (Aspirin) 81 mg DAILY PO Last administered on 11/12/16 09:31; Admin Dose 81 MG; Start 11/11/16 at 09:30 Atorvastatin Calcium (Lipitor) 40 mg QHS PO Last administered on 11/11/16 20: 38; Admin Dose 40 MG; Start 11/11/16 at 21:00 Benzonatate (Tessalon) 100 mg Q6 PO Last administered on 11/12/16 11:11; Admin Dose 100 MG; Start 11/11/16 at 12:00 Carisoprodol (Soma) 350 mg Q8 PRN PO MUSCLE SPASMS; Start 11/11/16 at 12:00 Cinacalcet (Sensipar) 30 mg DAILY PO Last administered on 11/12/16 09:35; Admin Dose 30 MG; Start 11/11/16 at 11:00 Diltiazem HCl (Cardizem Sr) 60 mg Q12 PO Last administered on 11/12/16 09:32; Admin Dose 60 MG; Start 11/11/16 at 21:00 Furosemide (Lasix) 80 mg DAILY PO ; Start 11/11/16 at 09:30 Losartan Potassium (Cozaar) 50 mg BID PO Last administered on 11/11/16 20:39; Admin Dose 50 MG; Start 11/11/16 at 09:30 Metoprolol Succinate (Toprol Xl) 50 mg BID PO Last administered on 11/12/16 09 :36; Admin Dose 50 MG; Start 11/11/16 at 09:30 Montelukast Sodium (Singulair) 10 mg QAM PO Last administered on 11/12/16 09: 35; Admin Dose 10 MG; Start 11/11/16 at 11:00 Oxycodone/ Acetaminophen (Endocet ()) 1 tab Q6 PRN PO PRN Last administered on 11/12/16 10:04; Admin Dose 1 TAB; Start 11/11/16 at 12:00 Pyridoxine HCl (Vitamin B6) 50 mg DAILY PO Last administered on 11/12/16 09:36 ; Admin Dose 50 MG; Start 11/11/16 at 09:30 Tiotropium [place] (Spiriva) 1 inh DAILY INH Last administered on 11/12/16 09: 31; Admin Dose 1 INH; Start 11/11/16 at 11:00 Zolpidem Tartrate (Ambien) 5 mg QHS PRN PO INSOMNIA; Start 11/11/16 at 09:30 Ondansetron HCl (Zofran Tab) 4 mg Q6H PRN PO NAUSEA AND/OR VOMITING; Start at 10:00 Docusate Sodium (Colace) 100 mg Q12H PRN PO CONSTIPATION; Start 11/11/16 at 10: 00 Diagnostic Test (Pha) (Accu-Chek) 1 ea 02 XX Last administered on 11/12/16 02: 30; Admin Dose 1 EA; Start 11/12/16 at 02:00 Salmeterol Xinafoate/ Fluticasone (Advair 250/50 Diskus) 1 inh BID INH Last administered on 11/12/16 09:30; Admin Dose 1 INH; Start 11/11/16 at 11:00 Vancomycin HCl (Vanco Iv Per Pharmacy) PER PHARMACY DOSING NOTE XX ; Start 11/11 at 10:30 Albuterol (Ventolin Hfa) 2 puff Q4H PRN INH AOB; Start 11/11/16 at 10:30 Epoetin Hang 63465 units 10,000 units TuThSa@17 SC Last administered on 22:43; Admin Dose 10,000 UNITS; Start 11/11/16 at 17:00 Ferric Sodium Gluconate Complex/ Sodium Chloride (Ferrlecit/NS) 110 ml @ 110 mls/hr Q24H IVPB Last administered on 11/11/16 22:35; Admin Dose 110 MLS/HR; Start 11/11/16 at 15:00; Stop 11/15/16 at 15:59 Miscellaneous Information (*Rx Drug Level Order Reminder*) VANCO RANDOM LEVEL... ONCE ONCE XX ; Start 11/13/16 at 05:00; Stop 11/13/16 at 05:01 Pantoprazole (Protonix Tab) 40 mg BID@06,18 PO ; Start 11/12/16 at 18:00 Insulin Detemir (Levemir) 45 unit QHS@20 SC ; Start 11/12/16 at 20:00 LUIS E DUFFY MD Nov 12, 2016 14:18
[2016-11-12] MEDS: SOD FERRIC GLUC COMPLX 125 MG in SOD CHLORIDE 0.9% 100 ML IVPB SCH (16:01)
[2016-11-12] MEDS: PANTOPRAZOLE (EC) 40 MG TAB PO SCH (17:24)
[2016-11-12] MEDS: ATORVASTATIN 40 MG TAB PO SCH (20:18)
[2016-11-12] MEDS: INSULIN DETEMIR [LEVEMIR] 3ML CART SC SCH (20:26)
[2016-11-12] MEDS: ZOLPIDEM 5 MG TAB PO PRN (22:01)
--- NOTE | 2016-11-12 22:07 | CONS ---
Date/Time of Note Date/Time of Note DATE: 11/12/16 TIME: 22:06 Assessment/Plan Assessment/Plan Chief Complaint/Hosp Course - ESRD on Hemodialysis TTS @ [facility] [place] [facility] - POST FALL - ACUTE ANEMIA - Hx of Cellulitis - CAD/CHF - Hx of Hypertension PLAN: On bedside dialysis now (#2) Minimal UF due to low BP ? Acute Anemia post fall ? Will Transfuse 2 PRBC on dialysis today Regular HD days are TTS Start EPOGEN Start IV Iron Check Iron status Problems: Consultation Date/Type/Reason Admit Date/Time Nov 11, 2016 at 06:40 Initial Consult Date 11/12/16 Type of Consultation: NEPHROLOGY Reason for Consultation ESRD 24 HR Interval Summary Constitutional: improved Exam/Review of Systems Vital Signs Vitals Vital Signs Date Time Temp Pulse Resp B/P Pulse Ox O2 Delivery O2 Flow Rate FiO2 11/12/16 20:12 97.6 123 16 110/59 97 11/12/16 09:32 Room Air 11/12/16 09:30 2.0 Intake and Output 11/11/16 11/11/16 11/12/16 15:00 23:00 07:00 Intake Total 500 ml 490 ml 250 ml Output Total 2500 ml Balance -2000 ml 490 ml 250 ml Exam Constitutional: alert Neck: supple Respiratory: crackles/rales Cardiovascular: edema, regular rate and rhythm, systolic murmur Gastrointestinal: soft Results Result Diagram: 11/12/16 0722 11/12/16 1000 Results 24 hrs Laboratory Tests Test 11/11/16 22:36 11/12/16 02:16 11/12/16 07:22 11/12/16 09:02 Bedside Glucose 228 H 135 33 *L White Blood Count 16.6 #H Red Blood Count 2.45 L Hemoglobin 7.2 L Hematocrit 23.4 L Mean Corpuscular Volume 95.5 Mean Corpuscular Hemoglobin 29.4 Mean Corpuscular Hemoglobin Concent 30.8 L Red Cell Distribution Width 20.2 H Platelet Count 460 H Mean Platelet Volume 9.3 Neutrophils % 73.5 Lymphocytes % 7.7 L Monocytes % 15.9 H Eosinophils % 1.9 Basophils % 0.3 Nucleated Red Blood Cells % 0.3 H Neutrophils # 12.2 H Lymphocytes # 1.3 Monocytes # 2.6 H Eosinophils # 0.3 Basophils # 0.1 Nucleated Red Blood Cells # 0.1 H Lactic Acid Level 1.2 Thyroid Stimulating Hormone (TSH) 5.680 H Test 11/12/16 09:46 11/12/16 10:00 11/12/16 10:06 11/12/16 11:10 Bedside Glucose 126 98 117 Sodium Level 131 L Potassium Level 5.0 Chloride Level 91 L Carbon Dioxide Level 26 Anion Gap 19 H Blood Urea Nitrogen 39 H Creatinine 5.00 H Glucose Level 101 Calcium Level 9.0 Test 11/12/16 17:23 11/12/16 20:12 Bedside Glucose 94 86 Medications Medications Current Medications Amlodipine Besylate (Norvasc) 5 mg DAILY PO ; Start 11/11/16 at 09:30 Apixaban (Eliquis) 5 mg BID PO Last administered on 11/12/16 09:34; Admin Dose 5 MG; Start 11/11/16 at 09:30 Aspirin (Aspirin) 81 mg DAILY PO Last administered on 11/12/16 09:31; Admin Dose 81 MG; Start 11/11/16 at 09:30 Atorvastatin Calcium (Lipitor) 40 mg QHS PO Last administered on 11/12/16 20: 18; Admin Dose 40 MG; Start 11/11/16 at 21:00 Benzonatate (Tessalon) 100 mg Q6 PO Last administered on 11/12/16 17:24; Admin Dose 100 MG; Start 11/11/16 at 12:00 Carisoprodol (Soma) 350 mg Q8 PRN PO MUSCLE SPASMS; Start 11/11/16 at 12:00 Cinacalcet (Sensipar) 30 mg DAILY PO Last administered on 11/12/16 09:35; Admin Dose 30 MG; Start 11/11/16 at 11:00 Diltiazem HCl (Cardizem Sr) 60 mg Q12 PO Last administered on 11/12/16 20:19; Admin Dose 60 MG; Start 11/11/16 at 21:00 Furosemide (Lasix) 80 mg DAILY PO ; Start 11/11/16 at 09:30 Losartan Potassium (Cozaar) 50 mg BID PO Last administered on 11/12/16 20:19; Admin Dose 50 MG; Start 11/11/16 at 09:30 Metoprolol Succinate (Toprol Xl) 50 mg BID PO Last administered on 11/12/16 20 :19; Admin Dose 50 MG; Start 11/11/16 at 09:30 Montelukast Sodium (Singulair) 10 mg QAM PO Last administered on 11/12/16 09: 35; Admin Dose 10 MG; Start 11/11/16 at 11:00 Oxycodone/ Acetaminophen (Endocet (10 325)) 1 tab Q6 PRN PO PRN Last administered on 11/12/16 22:01; Admin Dose 1 TAB; Start 11/11/16 at 12:00 Pyridoxine HCl (Vitamin B6) 50 mg DAILY PO Last administered on 11/12/16 09:36 ; Admin Dose 50 MG; Start 11/11/16 at 09:30 Tiotropium [place] (Spiriva) 1 inh DAILY INH Last administered on 11/12/16 09: 31; Admin Dose 1 INH; Start 11/11/16 at 11:00 Zolpidem Tartrate (Ambien) 5 mg QHS PRN PO INSOMNIA Last administered on 22:01; Admin Dose 5 MG; Start 11/11/16 at 09:30 Ondansetron HCl (Zofran Tab) 4 mg Q6H PRN PO NAUSEA AND/OR VOMITING; Start at 10:00 Docusate Sodium (Colace) 100 mg Q12H PRN PO CONSTIPATION; Start 11/11/16 at 10: 00 Diagnostic Test (Pha) (Accu-Chek) 1 ea 02 XX Last administered on 11/12/16 02: 30; Admin Dose 1 EA; Start 11/12/16 at 02:00 Salmeterol Xinafoate/ Fluticasone (Advair 250/50 Diskus) 1 inh BID INH Last administered on 11/12/16 09:30; Admin Dose 1 INH; Start 11/11/16 at 11:00 Vancomycin HCl (Vanco Iv Per Pharmacy) PER PHARMACY DOSING NOTE XX ; Start 11/11 at 10:30 Albuterol (Ventolin Hfa) 2 puff Q4H PRN INH AOB; Start 11/11/16 at 10:30 Epoetin Hang 79411 units 10,000 units TuThSa@17 SC Last administered on 22:43; Admin Dose 10,000 UNITS; Start 11/11/16 at 17:00 Ferric Sodium Gluconate Complex/ Sodium Chloride (Ferrlecit/NS) 110 ml @ 110 mls/hr Q24H IVPB Last administered on 11/12/16 16:01; Admin Dose 110 MLS/HR; Start 11/11/16 at 15:00; Stop 11/15/16 at 15:59 Miscellaneous Information (*Rx Drug Level Order Reminder*) VANCO RANDOM LEVEL... ONCE ONCE XX ; Start 11/13/16 at 05:00; Stop 11/13/16 at 05:01 Pantoprazole (Protonix Tab) 40 mg BID@06,18 PO Last administered on 11/12/16 17:24; Admin Dose 40 MG; Start 11/12/16 at 18:00 Insulin Detemir (Levemir) 45 unit QHS@20 SC Last administered on 11/12/16 20: 26; Admin Dose 45 UNIT; Start 11/12/16 at 20:00 Collagenase (Santyl) 1 applic DAILY TOP ; Start 11/13/16 at 09:00 BECKY GAMBLE MD Nov 12, 2016 22:07
[2016-11-13] MEDS: ACCU-CHEK XX SCH (02:41)
[2016-11-13] MEDS ORDERED: LORAZEPAM 2 MG INJ IV ONE (03:00)
[2016-11-13] MEDS: PANTOPRAZOLE (EC) 40 MG TAB PO SCH ×2 (05:05→17:48)
[2016-11-13] MEDS: BENZONATATE 100 MG CAP PO SCH ×4 (05:05→17:50)
[2016-11-13 05:49] VITALS: BP 105/72; RESP 18
[2016-11-13 06:09] LABS: ABNORMAL IP MESSAGE 1; BASOPHILS % 0.3 % (0.0-2.0); EOSINOPHILS # 0.4 10^3/ul (0.0-0.5); EOSINOPHILS % 2.7 % (0.0-7.0); HEMATOCRIT 30.1 % (37.0-47.0); LYMPHOCYTES # 1.2 10^3/ul (0.8-2.9); LYMPHOCYTES % 7.8 % (15.0-51.0); MEAN CORPUSCULAR HGB CONC 31.2 g/dl (32.0-37.0); MEAN CORPUSCULAR VOLUME 92.9 fl (82.0-101.0); MEAN PLATELET VOLUME 8.9 fl (7.4-10.4); MONOCYTE # 2.2 10^3/ul (0.3-0.9); MONOCYTES % 14.6 % (0.0-11.0); NEUTROPHILS % 73.8 % (39.0-77.0); PLATELET COUNT 423 10^3/UL (140-415); RED BLOOD COUNT 3.24 10^6/ul (4.20-5.40); RED CELL DISTRIBUTION WIDTH 18.6 % (11.5-14.5); WHITE BLOOD COUNT 14.9 10^3/ul (4.8-10.8)
[2016-11-13 06:32] LABS: INR 1.64; PROTIME 19.5 Sec (12.2-14.2); PT RATIO 1.5
[2016-11-13 06:51] LABS: HEMOGLOBIN 9.4 g/dl (12.0-16.0)
[2016-11-13 07:36] VITALS: BP 110/57; RESP 18
[2016-11-13] MEDS: INSULIN ASPART [NOVOLOG] 3 ML PEN SC SCH ×6 (08:00→21:00)
[2016-11-13] MEDS: SALMETEROL/FLUTICASONE 250/50 INHA INH SCH ×2 (08:58→20:55)
[2016-11-13] MEDS: FUROSEMIDE 40 MG TAB PO SCH (08:59)
[2016-11-13] MEDS: CINACALCET 30 MG TAB PO SCH (08:59)
[2016-11-13] MEDS: DILTIAZEM (SR) 60 MG CAP PO SCH ×2 (08:59→20:56)
[2016-11-13] MEDS: APIXABAN 5 MG TABLET PO SCH ×2 (09:00→20:57)
[2016-11-13] MEDS: LOSARTAN 50 MG TAB PO SCH ×2 (09:00→20:57)
[2016-11-13] MEDS: METOCLOPRAMIDE 5 MG TAB PO SCH ×3 (09:00→17:49)
[2016-11-13] MEDS: AMLODIPINE 5 MG TAB PO SCH (09:00)
[2016-11-13] MEDS: ASPIRIN 81 MG TAB PO SCH (09:00)
[2016-11-13] MEDS: PYRIDOXINE 50 MG TAB PO SCH (09:00)
[2016-11-13] MEDS: METOPROLOL (XL) 50 MG TAB PO SCH ×2 (09:00→20:56)
[2016-11-13] MEDS: COLLAGENASE 30 GM TUBE TOP SCH (09:00)
[2016-11-13] MEDS: MONTELUKAST 10 MG TAB PO SCH (09:00)
[2016-11-13] MEDS: CALCIUM ACETATE 667 MG CAP PO SCH ×3 (09:01→17:49)
[2016-11-13] MEDS: OXYCODONE/ACETAMINOPHEN (10/325) TAB PO PRN ×2 (09:14→16:12)
[2016-11-13] MEDS ORDERED: VANCOMYCIN 1 GM in NS 250 ML IVPB SCH (10:00)
[2016-11-13] MEDS: TIOTROPIUM 18 MCG CAPSULE INHA DEV INH SCH (10:22)
[2016-11-13 11:44] VITALS: BP 100/65; RESP 19
--- NOTE | 2016-11-13 14:11 | PN ---
Date/Time of Note Date/Time of Note DATE: 11/13/16 TIME: 13:55 Assessment/Plan VTE Prophylaxis VTE Prophylaxis Intervention: SCD's Lines/Catheters IV Catheter Type (from [place]): [place] Lock Urinary Cath still in place: No Assessment/Plan Assessment/Plan Assessment/Plan 61 yo F with pmhx ESRD on HD, DM2, obesity, HTN admitted following ground level fall at home.Labs here notable for acute on chronic anemia, etio unclear. PLAN PT eval for ankle sander hand on consult vascular surgeon notified of pt's admission given he is overseeing her wound vac cont all home meds for AFib, DM, chronic pain, ESRD, COPD of note, HR >goal of 100. CM cs for HHPT anemia: GI source v other GI on consult will transfuse additional unit of pRBCs tomorrow with HD anemia resolved with transfusion, hgb hypoglycemia: home insulin regimen clarified Subjective 24 Hr Interval Summary Free Text/Dictation Feels well. No complaints. Exam/Review of Systems Vital Signs Vitals Vital Signs Date Time Temp Pulse Resp B/P Pulse Ox O2 Delivery O2 Flow Rate FiO2 11/13/16 11:44 98.1 106 19 100/65 96 11/13/16 08:20 Nasal Cannula 2.0 Intake and Output 11/12/16 11/12/16 11/13/16 14:59 22:59 06:59 Intake Total 300 ml 800 ml 250 ml Output Total 3300 ml Balance -3000 ml 800 ml 250 ml Exam nad, sitting up in bed no mrg lungs clear abd soft +LE edema Results Result Diagram: 11/13/16 0555 11/12/16 1000 Results 24 hrs Laboratory Tests Test 11/12/16 17:23 11/12/16 20:12 11/13/16 02:32 11/13/16 05:55 Bedside Glucose 94 86 75 White Blood Count 14.9 H Red Blood Count 3.24 #L Hemoglobin 9.4 #L Hematocrit 30.1 #L Mean Corpuscular Volume 92.9 Mean Corpuscular Hemoglobin 29.0 Mean Corpuscular Hemoglobin Concent 31.2 L Red Cell Distribution Width 18.6 H Platelet Count 423 H Mean Platelet Volume 8.9 Neutrophils % 73.8 Lymphocytes % 7.8 L Monocytes % 14.6 H Eosinophils % 2.7 Basophils % 0.3 Nucleated Red Blood Cells % 0.0 Neutrophils # 11.0 H Lymphocytes # 1.2 Monocytes # 2.2 H Eosinophils # 0.4 Basophils # 0.0 Nucleated Red Blood Cells # 0.0 Prothrombin Time 19.5 H Prothrombin Time Ratio 1.5 INR International Normalized Ratio 1.64 Random Vancomycin Level 16.2 Test 11/13/16 06:09 11/13/16 08:08 11/13/16 12:34 Lab Scanned Report BLOOD TRANSFUSION Bedside Glucose 110 115 Medications Medications Current Medications Amlodipine Besylate (Norvasc) 5 mg DAILY PO ; Start 11/11/16 at 09:30 Apixaban (Eliquis) 5 mg BID PO Last administered on 11/13/16 09:00; Admin Dose 5 MG; Start 11/11/16 at 09:30 Aspirin (Aspirin) 81 mg DAILY PO Last administered on 11/13/16 09:00; Admin Dose 81 MG; Start 11/11/16 at 09:30 Atorvastatin Calcium (Lipitor) 40 mg QHS PO Last administered on 11/12/16 20: 18; Admin Dose 40 MG; Start 11/11/16 at 21:00 Benzonatate (Tessalon) 100 mg Q6 PO Last administered on 11/13/16 13:26; Admin Dose 100 MG; Start 11/11/16 at 12:00 Carisoprodol (Soma) 350 mg Q8 PRN PO MUSCLE SPASMS; Start 11/11/16 at 12:00 Cinacalcet (Sensipar) 30 mg DAILY PO Last administered on 11/13/16 08:59; Admin Dose 30 MG; Start 11/11/16 at 11:00 Diltiazem HCl (Cardizem Sr) 60 mg Q12 PO Last administered on 11/13/16 08:59; Admin Dose 60 MG; Start 11/11/16 at 21:00 Furosemide (Lasix) 80 mg DAILY PO Last administered on 11/13/16 08:59; Admin Dose 80 MG; Start 11/11/16 at 09:30 Losartan Potassium (Cozaar) 50 mg BID PO Last administered on 11/12/16 20:19; Admin Dose 50 MG; Start 11/11/16 at 09:30 Metoprolol Succinate (Toprol Xl) 50 mg BID PO Last administered on 11/13/16 09: 00; Admin Dose 50 MG; Start 11/11/16 at 09:30 Montelukast Sodium (Singulair) 10 mg QAM PO Last administered on 11/13/16 09:00 ; Admin Dose 10 MG; Start 11/11/16 at 11:00 Oxycodone/ Acetaminophen (Endocet (10/ 325)) 1 tab Q6 PRN PO PRN Last administered on 11/13/16 09:14; Admin Dose 1 TAB; Start 11/11/16 at 12:00 Pyridoxine HCl (Vitamin B6) 50 mg DAILY PO Last administered on 11/13/16 09:00 ; Admin Dose 50 MG; Start 11/11/16 at 09:30 Tiotropium [place] (Spiriva) 1 inh DAILY INH Last administered on 11/13/16 10: 22; Admin Dose 1 INH; Start 11/11/16 at 11:00 Zolpidem Tartrate (Ambien) 5 mg QHS PRN PO INSOMNIA Last administered on 22:01; Admin Dose 5 MG; Start 11/11/16 at 09:30 Ondansetron HCl (Zofran Tab) 4 mg Q6H PRN PO NAUSEA AND/OR VOMITING; Start at 10:00 Docusate Sodium (Colace) 100 mg Q12H PRN PO CONSTIPATION; Start 11/11/16 at 10: 00 Salmeterol Xinafoate/ Fluticasone (Advair 250/50 Diskus) 1 inh BID INH Last administered on 11/13/16 08:58; Admin Dose 1 INH; Start 11/11/16 at 11:00 Vancomycin HCl (Vanco Iv Per Pharmacy) PER PHARMACY DOSING NOTE XX ; Start 11/11 at 10:30 Albuterol (Ventolin Hfa) 2 puff Q4H PRN INH AOB; Start 11/11/16 at 10:30 Epoetin Hang 81656 units 10,000 units TuThSa@17 SC Last administered on 22:43; Admin Dose 10,000 UNITS; Start 11/11/16 at 17:00 Ferric Sodium Gluconate Complex/ Sodium Chloride (Ferrlecit/NS) 110 ml @ 110 mls/hr Q24H IVPB Last administered on 11/12/16 16:01; Admin Dose 110 MLS/HR; Start 11/11/16 at 15:00; Stop 11/15/16 at 15:59 Pantoprazole (Protonix Tab) 40 mg BID@06,18 PO Last administered on 11/13/16 05 :05; Admin Dose 40 MG; Start 11/12/16 at 18:00 Insulin Detemir (Levemir) 45 unit QHS@20 SC Last administered on 11/12/16 20: 26; Admin Dose 45 UNIT; Start 11/12/16 at 20:00 Collagenase 1 applic 1 applic DAILY TOP Last administered on 11/13/16 09:00; Admin Dose 1 APPLIC; Start 11/13/16 at 09:00 Vancomycin HCl (Vancocin) 250 ml @ 125 mls/hr 10 IVPB Last administered on 11/13 10:21; Admin Dose 125 MLS/HR; Start 11/13/16 at 10:00; Stop 11/13/16 at 19: 00 Diagnostic Test (Pha) (Accu-Chek) 1 ea 02 XX ; Start 11/14/16 at 02:00 LUIS E DUFFY MD Nov 13, 2016 14:11
[2016-11-13] MEDS: SOD FERRIC GLUC COMPLX 125 MG in SOD CHLORIDE 0.9% 100 ML IVPB SCH (15:24)
[2016-11-13 16:10] VITALS: BP 114/51; RESP 19
[2016-11-13] MEDS: EPOETIN 10000 UNITS/1 ML INJ (ESRD) SC SCH (17:49)
[2016-11-13] MEDS ORDERED: LORAZEPAM 0.5 MG TAB PO STA (18:19)
[2016-11-13 20:54] VITALS: BP 121/65; RESP 16
[2016-11-13] MEDS: ATORVASTATIN 40 MG TAB PO SCH (20:56)
[2016-11-13] MEDS: ZOLPIDEM 5 MG TAB PO PRN (20:57)
[2016-11-13] MEDS: INSULIN DETEMIR [LEVEMIR] 3ML CART SC SCH (21:00)
--- NOTE | 2016-11-13 22:28 | CONS ---
Date/Time of Note Date/Time of Note DATE: 11/13/16 TIME: 22:26 Assessment/Plan Assessment/Plan Chief Complaint/Hosp Course Impression: 1. Anemia, need to r/o GIB 2. ESRD 3. Atrial fibrillation Recommendation: 1. awaiting occult blood results, if positive then proceed with EGD and colonoscopy (pt also declined any endoscopic procedure unless there is occult positive stool). 2. before any endoscopic procedure, will need cardiac optimization and clearance given her A. fib and cardiac history 3. protonix 40 mg po bid 4. transfuse to keep hgb > 8, INR < 1.5, PLT > 50 Problems: Consultation Date/Type/Reason Admit Date/Time Nov 11, 2016 at 06:40 Initial Consult Date 11/12/16 Type of Consultation: GI 24 HR Interval Summary Free Text/Dictation no abdominal pain, no n/v Exam/Review of Systems Vital Signs Vitals Vital Signs Date Time Temp Pulse Resp B/P Pulse Ox O2 Delivery O2 Flow Rate FiO2 11/13/16 20:54 97.8 64 16 121/65 100 11/13/16 08:20 Nasal Cannula 2.0 Intake and Output 11/12/16 11/12/16 11/13/16 15:00 23:00 07:00 Intake Total 300 ml 800 ml 250 ml Output Total 3300 ml Balance -3000 ml 800 ml 250 ml Exam Constitutional: alert, oriented, well developed Psych: nl mood/affect, no complaints Head: atraumatic, normocephalic Eyes: EOMI, nl conjunctiva, nl lids ENMT: nl external ears & nose, nl lips & teeth, nl nasal mucosa & septum Neck: non-tender, supple Respiratory: normal air movement Cardiovascular: nl pulses, regular rate and rhythm Gastrointestinal: bowel sounds, non-tender, soft Results Result Diagram: 11/13/16 0555 11/12/16 1000 Results 24 hrs Laboratory Tests Test 11/13/16 02:32 11/13/16 05:55 11/13/16 06:09 11/13/16 08:08 Bedside Glucose 75 110 White Blood Count 14.9 H Red Blood Count 3.24 #L Hemoglobin 9.4 #L Hematocrit 30.1 #L Mean Corpuscular Volume 92.9 Mean Corpuscular Hemoglobin 29.0 Mean Corpuscular Hemoglobin Concent 31.2 L Red Cell Distribution Width 18.6 H Platelet Count 423 H Mean Platelet Volume 8.9 Neutrophils % 73.8 Lymphocytes % 7.8 L Monocytes % 14.6 H Eosinophils % 2.7 Basophils % 0.3 Nucleated Red Blood Cells % 0.0 Neutrophils # 11.0 H Lymphocytes # 1.2 Monocytes # 2.2 H Eosinophils # 0.4 Basophils # 0.0 Nucleated Red Blood Cells # 0.0 Prothrombin Time 19.5 H Prothrombin Time Ratio 1.5 INR International Normalized Ratio 1.64 Random Vancomycin Level 16.2 Lab Scanned Report BLOOD TRANSFUSION Test 11/13/16 12:34 11/13/16 17:15 11/13/16 20:53 Bedside Glucose 115 148 149 Medications Medications Current Medications Amlodipine Besylate (Norvasc) 5 mg DAILY PO ; Start 11/11/16 at 09:30 Apixaban (Eliquis) 5 mg BID PO Last administered on 11/13/16 20:57; Admin Dose 5 MG; Start 11/11/16 at 09:30 Aspirin (Aspirin) 81 mg DAILY PO Last administered on 11/13/16 09:00; Admin Dose 81 MG; Start 11/11/16 at 09:30 Atorvastatin Calcium (Lipitor) 40 mg QHS PO Last administered on 11/13/16 20:56 ; Admin Dose 40 MG; Start 11/11/16 at 21:00 Benzonatate (Tessalon) 100 mg Q6 PO Last administered on 11/13/16 13:26; Admin Dose 100 MG; Start 11/11/16 at 12:00 Carisoprodol (Soma) 350 mg Q8 PRN PO MUSCLE SPASMS; Start 11/11/16 at 12:00 Cinacalcet (Sensipar) 30 mg DAILY PO Last administered on 11/13/16 08:59; Admin Dose 30 MG; Start 11/11/16 at 11:00 Diltiazem HCl (Cardizem Sr) 60 mg Q12 PO Last administered on 11/13/16 20:56; Admin Dose 60 MG; Start 11/11/16 at 21:00 Furosemide (Lasix) 80 mg DAILY PO Last administered on 11/13/16 08:59; Admin Dose 80 MG; Start 11/11/16 at 09:30 Losartan Potassium (Cozaar) 50 mg BID PO Last administered on 11/13/16 20:57; Admin Dose 50 MG; Start 11/11/16 at 09:30 Metoprolol Succinate (Toprol Xl) 50 mg BID PO Last administered on 11/13/16 20: 56; Admin Dose 50 MG; Start 11/11/16 at 09:30 Montelukast Sodium (Singulair) 10 mg QAM PO Last administered on 11/13/16 09:00 ; Admin Dose 10 MG; Start 11/11/16 at 11:00 Oxycodone/ Acetaminophen (Endocet (10/ 325)) 1 tab Q6 PRN PO PRN Last administered on 11/13/16 16:12; Admin Dose 1 TAB; Start 11/11/16 at 12:00 Pyridoxine HCl (Vitamin B6) 50 mg DAILY PO Last administered on 11/13/16 09:00 ; Admin Dose 50 MG; Start 11/11/16 at 09:30 Tiotropium [place] (Spiriva) 1 inh DAILY INH Last administered on 11/13/16 10: 22; Admin Dose 1 INH; Start 11/11/16 at 11:00 Zolpidem Tartrate (Ambien) 5 mg QHS PRN PO INSOMNIA Last administered on 20:57; Admin Dose 5 MG; Start 11/11/16 at 09:30 Ondansetron HCl (Zofran Tab) 4 mg Q6H PRN PO NAUSEA AND/OR VOMITING; Start at 10:00 Docusate Sodium (Colace) 100 mg Q12H PRN PO CONSTIPATION; Start 11/11/16 at 10: 00 Salmeterol Xinafoate/ Fluticasone (Advair 250/50 Diskus) 1 inh BID INH Last administered on 11/13/16 20:55; Admin Dose 1 INH; Start 11/11/16 at 11:00 Vancomycin HCl (Vanco Iv Per Pharmacy) PER PHARMACY DOSING NOTE XX ; Start 11/11 at 10:30 Albuterol (Ventolin Hfa) 2 puff Q4H PRN INH AOB; Start 11/11/16 at 10:30 Epoetin Hang 65976 units 10,000 units TuThSa@17 SC Last administered on 17:49; Admin Dose 10,000 UNITS; Start 11/11/16 at 17:00 Ferric Sodium Gluconate Complex/ Sodium Chloride (Ferrlecit/NS) 110 ml @ 110 mls/hr Q24H IVPB Last administered on 11/13/16 15:24; Admin Dose 110 MLS/HR; Start 11/11/16 at 15:00; Stop 11/15/16 at 15:59 Pantoprazole (Protonix Tab) 40 mg BID@06,18 PO Last administered on 11/13/16 17 :48; Admin Dose 40 MG; Start 11/12/16 at 18:00 Insulin Detemir (Levemir) 45 unit QHS@20 SC Last administered on 11/13/16 21:00 ; Admin Dose 45 UNIT; Start 11/12/16 at 20:00 Collagenase (Santyl) 1 applic DAILY TOP Last administered on 11/13/16 09:00; Admin Dose 1 APPLIC; Start 11/13/16 at 09:00 Diagnostic Test (Pha) (Accu-Chek) 1 ea 02 XX ; Start 11/14/16 at 02:00 CHIP HERNANDEZ MD Nov 13, 2016 22:28
[2016-11-14] MEDS: BENZONATATE 100 MG CAP PO SCH ×5 (00:55→23:08)
[2016-11-14] MEDS: ACCU-CHEK XX SCH (02:00)
[2016-11-14] MEDS: PANTOPRAZOLE (EC) 40 MG TAB PO SCH ×2 (06:06→17:37)
[2016-11-14 06:15] LABS: ABNORMAL IP MESSAGE 1; BASOPHIL # 0.1 10^3/ul (0.0-0.1); BASOPHILS % 0.5 % (0.0-2.0); EOSINOPHILS # 0.3 10^3/ul (0.0-0.5); HEMATOCRIT 31.7 % (37.0-47.0); LYMPHOCYTES % 7.3 % (15.0-51.0); MEAN CORPUSCULAR HEMOGLOBIN 29.3 pg (29.0-33.0); MEAN CORPUSCULAR HGB CONC 31.5 g/dl (32.0-37.0); MONOCYTE # 1.9 10^3/ul (0.3-0.9); MONOCYTES % 13.3 % (0.0-11.0); NEUTROPHIL # 10.8 10^3/ul (1.6-7.5); NEUTROPHILS % 76.3 % (39.0-77.0); PLATELET COUNT 503 10^3/UL (140-415); RED BLOOD COUNT 3.41 10^6/ul (4.20-5.40); RED CELL DISTRIBUTION WIDTH 18.6 % (11.5-14.5); WHITE BLOOD COUNT 14.2 10^3/ul (4.8-10.8)
[2016-11-14 07:09] LABS: ADD SCAN DIFF NO
[2016-11-14] MEDS: INSULIN ASPART [NOVOLOG] 3 ML PEN SC SCH ×4 (08:00→20:58)
[2016-11-14 08:52] VITALS: BP 107/67; RESP 18
[2016-11-14] MEDS: DILTIAZEM (SR) 60 MG CAP PO SCH ×2 (09:41→21:04)
[2016-11-14] MEDS: MONTELUKAST 10 MG TAB PO SCH (09:41)
[2016-11-14] MEDS: METOCLOPRAMIDE 5 MG TAB PO SCH ×3 (09:43→17:37)
[2016-11-14] MEDS: ASPIRIN 81 MG TAB PO SCH (09:44)
[2016-11-14] MEDS: METOPROLOL (XL) 50 MG TAB PO SCH ×2 (09:45→21:01)
[2016-11-14] MEDS: CALCIUM ACETATE 667 MG CAP PO SCH ×3 (09:46→17:37)
[2016-11-14] MEDS: LOSARTAN 50 MG TAB PO SCH ×2 (09:47→21:02)
[2016-11-14] MEDS: APIXABAN 5 MG TABLET PO SCH ×2 (09:47→21:02)
[2016-11-14] MEDS: AMLODIPINE 5 MG TAB PO SCH (09:47)
[2016-11-14] MEDS: SALMETEROL/FLUTICASONE 250/50 INHA INH SCH ×2 (09:48→21:02)
[2016-11-14] MEDS: COLLAGENASE 30 GM TUBE TOP SCH (09:48)
[2016-11-14] MEDS: PYRIDOXINE 50 MG TAB PO SCH (09:54)
[2016-11-14] MEDS: FUROSEMIDE 40 MG TAB PO SCH (09:54)
[2016-11-14] MEDS: CINACALCET 30 MG TAB PO SCH (09:58)
[2016-11-14] MEDS: OXYCODONE/ACETAMINOPHEN (10/325) TAB PO PRN (12:12)
[2016-11-14] MEDS: TIOTROPIUM 18 MCG CAPSULE INHA DEV INH SCH (12:12)
--- NOTE | 2016-11-14 14:11 | PN ---
Date/Time of Note Date/Time of Note DATE: 11/14/16 TIME: 14:10 Assessment/Plan VTE Prophylaxis VTE Prophylaxis Intervention: SCD's Lines/Catheters IV Catheter Type (from Nrs): Peripheral IV Urinary Cath still in place: No Assessment/Plan Assessment/Plan 61 yo F with pmhx ESRD on HD, DM2, obesity, HTN admitted following ground level fall at home.Labs here notable for acute on chronic anemia, etio unclear. PLAN PT eval for ankle restorative coordinator on consult vascular surgeon notified of pt's admission given he is overseeing her wound vac cont all home meds for AFib, DM, chronic pain, ESRD, COPD of note, HR >goal of 100. CM cs for HHPT anemia: GI source v other GI on consult anemia resolved with transfusion, hgb stable hypoglycemia: dec lantus from 45 to 35 given lowish BG this AM dispo planning: PT eval, need FOBT Subjective 24 Hr Interval Summary Free Text/Dictation No complaints Exam/Review of Systems Vital Signs Vitals Vital Signs Date Time Temp Pulse Resp B/P Pulse Ox O2 Delivery O2 Flow Rate FiO2 11/14/16 08:52 97.8 120 18 107/67 95 11/13/16 08:20 Nasal Cannula 2.0 Intake and Output 11/13/16 11/13/16 11/14/16 15:00 23:00 07:00 Intake Total 250 ml 760 ml 240 ml Balance 250 ml 760 ml 240 ml Exam sitting up in bed, going through her purse abd soft lungs clear irreg irreg trace le edema hgb stable Results Result Diagram: 11/14/16 0536 11/12/16 1000 Results 24 hrs Laboratory Tests Test 11/13/16 17:15 11/13/16 20:53 11/14/16 05:36 11/14/16 07:52 Bedside Glucose 148 149 68 L White Blood Count 14.2 H Red Blood Count 3.41 L Hemoglobin 10.0 L Hematocrit 31.7 L Mean Corpuscular Volume 93.0 Mean Corpuscular Hemoglobin 29.3 Mean Corpuscular Hemoglobin Concent 31.5 L Red Cell Distribution Width 18.6 H Platelet Count 503 H Mean Platelet Volume 9.0 Neutrophils % 76.3 Lymphocytes % 7.3 L Monocytes % 13.3 H Eosinophils % 2.0 Basophils % 0.5 Nucleated Red Blood Cells % 0.0 Neutrophils # 10.8 H Lymphocytes # 1.0 Monocytes # 1.9 H Eosinophils # 0.3 Basophils # 0.1 Nucleated Red Blood Cells # 0.0 Test 11/14/16 08:16 11/14/16 09:01 11/14/16 09:34 11/14/16 12:02 Bedside Glucose 64 L 80 108 99 Medications Medications Current Medications Amlodipine Besylate (Norvasc) 5 mg DAILY PO Last administered on 11/14/16 09:47 ; Admin Dose 5 MG; Start 11/11/16 at 09:30 Apixaban (Eliquis) 5 mg BID PO Last administered on 11/14/16 09:47; Admin Dose 5 MG; Start 11/11/16 at 09:30 Aspirin (Aspirin) 81 mg DAILY PO Last administered on 11/14/16 09:44; Admin Dose 81 MG; Start 11/11/16 at 09:30 Atorvastatin Calcium (Lipitor) 40 mg QHS PO Last administered on 11/13/16 20:56 ; Admin Dose 40 MG; Start 11/11/16 at 21:00 Benzonatate (Tessalon) 100 mg Q6 PO Last administered on 11/14/16 12:11; Admin Dose 100 MG; Start 11/11/16 at 12:00 Carisoprodol (Soma) 350 mg Q8 PRN PO MUSCLE SPASMS; Start 11/11/16 at 12:00 Cinacalcet (Sensipar) 30 mg DAILY PO Last administered on 11/14/16 09:58; Admin Dose 30 MG; Start 11/11/16 at 11:00 Diltiazem HCl (Cardizem Sr) 60 mg Q12 PO Last administered on 11/14/16 09:41; Admin Dose 60 MG; Start 11/11/16 at 21:00 Furosemide (Lasix) 80 mg DAILY PO Last administered on 11/14/16 09:54; Admin Dose 80 MG; Start 11/11/16 at 09:30 Losartan Potassium (Cozaar) 50 mg BID PO Last administered on 11/14/16 09:47; Admin Dose 50 MG; Start 11/11/16 at 09:30 Metoprolol Succinate (Toprol Xl) 50 mg BID PO Last administered on 11/14/16 09: 45; Admin Dose 50 MG; Start 11/11/16 at 09:30 Montelukast Sodium (Singulair) 10 mg QAM PO Last administered on 11/14/16 09:41 ; Admin Dose 10 MG; Start 11/11/16 at 11:00 Oxycodone/ Acetaminophen (Endocet (10/ 325)) 1 tab Q6 PRN PO PRN Last administered on 11/14/16 12:12; Admin Dose 1 TAB; Start 11/11/16 at 12:00 Pyridoxine HCl (Vitamin B6) 50 mg DAILY PO Last administered on 11/14/16 09:54 ; Admin Dose 50 MG; Start 11/11/16 at 09:30 Tiotropium [place] (Spiriva) 1 inh DAILY INH Last administered on 11/14/16 12: 12; Admin Dose 1 INH; Start 11/11/16 at 11:00 Zolpidem Tartrate (Ambien) 5 mg QHS PRN PO INSOMNIA Last administered on 20:57; Admin Dose 5 MG; Start 11/11/16 at 09:30 Ondansetron HCl (Zofran Tab) 4 mg Q6H PRN PO NAUSEA AND/OR VOMITING; Start at 10:00 Docusate Sodium (Colace) 100 mg Q12H PRN PO CONSTIPATION; Start 11/11/16 at 10: 00 Salmeterol Xinafoate/ Fluticasone (Advair 250/50 Diskus) 1 inh BID INH Last administered on 11/14/16 09:48; Admin Dose 1 INH; Start 11/11/16 at 11:00 Vancomycin HCl (Vanco Iv Per Pharmacy) PER PHARMACY DOSING NOTE XX ; Start 11/11 at 10:30 Albuterol (Ventolin Hfa) 2 puff Q4H PRN INH AOB; Start 11/11/16 at 10:30 [place]etin [place] 48886 units 10,000 units TuThSa@17 SC Last administered on 17:49; Admin Dose 10,000 UNITS; Start 11/11/16 at 17:00 Ferric Sodium Gluconate Complex/ Sodium Chloride (Ferrlecit/NS) 110 ml @ 110 mls/hr Q24H IVPB Last administered on 11/13/16 15:24; Admin Dose 110 MLS/HR; Start 11/11/16 at 15:00; Stop 11/15/16 at 15:59 Pantoprazole (Protonix Tab) 40 mg BID@06,18 PO Last administered on 11/14/16 06 :06; Admin Dose 40 MG; Start 11/12/16 at 18:00 Insulin Detemir (Levemir) 45 unit QHS@20 SC Last administered on 11/13/16 21:00 ; Admin Dose 45 UNIT; Start 11/12/16 at 20:00 Collagenase (Santyl) 1 applic DAILY TOP Last administered on 11/14/16 09:48; Admin Dose 1 APPLIC; Start 11/13/16 at 09:00 Diagnostic Test (Pha) (Accu-Chek) 1 ea 02 XX ; Start 11/14/16 at 02:00 LUIS E DUFFY MD Nov 14, 2016 14:11
[2016-11-14] MEDS: SOD FERRIC GLUC COMPLX 125 MG in SOD CHLORIDE 0.9% 100 ML IVPB SCH (15:53)
[2016-11-14] MEDS ORDERED: LORAZEPAM 1 MG TAB PO ONE (19:00)
[2016-11-14 20:13] VITALS: BP 123/63; RESP 20
[2016-11-14] MEDS: INSULIN DETEMIR [LEVEMIR] 3ML CART SC SCH (20:59)
[2016-11-14] MEDS: ATORVASTATIN 40 MG TAB PO SCH (21:01)
[2016-11-14] MEDS: NICOTINE (21 MG/24 HR) PATCH TRANSDERM SCH (21:02)
--- NOTE | 2016-11-14 22:11 | CONS ---
Date/Time of Note Date/Time of Note DATE: 11/14/16 TIME: 22:11 Assessment/Plan Assessment/Plan Chief Complaint/Hosp Course Impression: 1. Anemia, need to r/o GIB 2. ESRD 3. Atrial fibrillation Recommendation: 1. awaiting occult blood results, if positive then proceed with EGD and colonoscopy (pt also declined any endoscopic procedure unless there is occult positive stool). 2. before any endoscopic procedure, will need cardiac optimization and clearance given her A. fib and cardiac history 3. protonix 40 mg po bid 4. transfuse to keep hgb > 8, INR < 1.5, PLT > 50 Problems: Consultation Date/Type/Reason Admit Date/Time Nov 11, 2016 at 06:40 Initial Consult Date 11/12/16 Type of Consultation: GI 24 HR Interval Summary Free Text/Dictation no e/o gib, no n/v, no abdominal pain Exam/Review of Systems Vital Signs Vitals Vital Signs Date Time Temp Pulse Resp B/P Pulse Ox O2 Delivery O2 Flow Rate FiO2 11/14/16 20:13 97.8 125 20 123/63 97 11/13/16 08:20 Nasal Cannula 2.0 Intake and Output 11/13/16 11/13/16 11/14/16 15:00 23:00 07:00 Intake Total 250 ml 760 ml 240 ml Balance 250 ml 760 ml 240 ml Exam Constitutional: alert, oriented, well developed Psych: anxiety Head: atraumatic, normocephalic Eyes: EOMI, nl conjunctiva, nl lids, nl sclera ENMT: mucosa pink and moist, nl external ears & nose, nl lips & teeth, nl nasal mucosa & septum Neck: non-tender, supple Respiratory: clear to auscultation, normal air movement Cardiovascular: nl pulses, regular rate and rhythm Gastrointestinal: bowel sounds, non-tender, soft Results Result Diagram: 11/14/16 0536 11/12/16 1000 Results 24 hrs Laboratory Tests Test 11/14/16 05:36 11/14/16 07:52 11/14/16 08:16 11/14/16 09:01 White Blood Count 14.2 H Red Blood Count 3.41 L Hemoglobin 10.0 L Hematocrit 31.7 L Mean Corpuscular Volume 93.0 Mean Corpuscular Hemoglobin 29.3 Mean Corpuscular Hemoglobin Concent 31.5 L Red Cell Distribution Width 18.6 H Platelet Count 503 H Mean Platelet Volume 9.0 Neutrophils % 76.3 Lymphocytes % 7.3 L Monocytes % 13.3 H Eosinophils % 2.0 Basophils % 0.5 Nucleated Red Blood Cells % 0.0 Neutrophils # 10.8 H Lymphocytes # 1.0 Monocytes # 1.9 H Eosinophils # 0.3 Basophils # 0.1 Nucleated Red Blood Cells # 0.0 Bedside Glucose 68 L 64 L 80 Test 11/14/16 09:34 11/14/16 12:02 11/14/16 17:34 11/14/16 20:57 Bedside Glucose 108 99 112 133 Medications Medications Current Medications Amlodipine Besylate (Norvasc) 5 mg DAILY PO Last administered on 11/14/16 09:47 ; Admin Dose 5 MG; Start 11/11/16 at 09:30 Apixaban (Eliquis) 5 mg BID PO Last administered on 11/14/16 21:02; Admin Dose 5 MG; Start 11/11/16 at 09:30 Aspirin (Aspirin) 81 mg DAILY PO Last administered on 11/14/16 09:44; Admin Dose 81 MG; Start 11/11/16 at 09:30 Atorvastatin Calcium (Lipitor) 40 mg QHS PO Last administered on 11/14/16 21:01 ; Admin Dose 40 MG; Start 11/11/16 at 21:00 Benzonatate (Tessalon) 100 mg Q6 PO Last administered on 11/14/16 17:41; Admin Dose 100 MG; Start 11/11/16 at 12:00 Carisoprodol (Soma) 350 mg Q8 PRN PO MUSCLE SPASMS; Start 11/11/16 at 12:00 Cinacalcet (Sensipar) 30 mg DAILY PO Last administered on 11/14/16 09:58; Admin Dose 30 MG; Start 11/11/16 at 11:00 Diltiazem HCl (Cardizem Sr) 60 mg Q12 PO Last administered on 11/14/16 21:04; Admin Dose 60 MG; Start 11/11/16 at 21:00 Furosemide (Lasix) 80 mg DAILY PO Last administered on 11/14/16 09:54; Admin Dose 80 MG; Start 11/11/16 at 09:30 Losartan Potassium (Cozaar) 50 mg BID PO Last administered on 11/14/16 21:02; Admin Dose 50 MG; Start 11/11/16 at 09:30 Metoprolol Succinate (Toprol Xl) 50 mg BID PO Last administered on 11/14/16 21: 01; Admin Dose 50 MG; Start 11/11/16 at 09:30 Montelukast Sodium (Singulair) 10 mg QAM PO Last administered on 11/14/16 09:41 ; Admin Dose 10 MG; Start 11/11/16 at 11:00 Oxycodone/ Acetaminophen (Endocet (10/ 325)) 1 tab Q6 PRN PO PRN Last administered on 11/14/16 12:12; Admin Dose 1 TAB; Start 11/11/16 at 12:00 Pyridoxine HCl (Vitamin B6) 50 mg DAILY PO Last administered on 11/14/16 09:54 ; Admin Dose 50 MG; Start 11/11/16 at 09:30 Tiotropium [place] (Spiriva) 1 inh DAILY INH Last administered on 11/14/16 12: 12; Admin Dose 1 INH; Start 11/11/16 at 11:00 Zolpidem Tartrate (Ambien) 5 mg QHS PRN PO INSOMNIA Last administered on 20:57; Admin Dose 5 MG; Start 11/11/16 at 09:30 Ondansetron HCl (Zofran Tab) 4 mg Q6H PRN PO NAUSEA AND/OR VOMITING; Start at 10:00 Docusate Sodium (Colace) 100 mg Q12H PRN PO CONSTIPATION; Start 11/11/16 at 10: 00 Salmeterol Xinafoate/ Fluticasone (Advair 250/50 Diskus) 1 inh BID INH Last administered on 11/14/16 21:02; Admin Dose 1 INH; Start 11/11/16 at 11:00 Vancomycin HCl (Vanco Iv Per Pharmacy) PER PHARMACY DOSING NOTE XX ; Start 11/11 at 10:30 Albuterol (Ventolin Hfa) 2 puff Q4H PRN INH AOB; Start 11/11/16 at 10:30 Epoetin Hang 77931 units 10,000 units TuThSa@17 SC Last administered on 17:49; Admin Dose 10,000 UNITS; Start 11/11/16 at 17:00 Ferric Sodium Gluconate Complex/ Sodium Chloride (Ferrlecit/NS) 110 ml @ 110 mls/hr Q24H IVPB Last administered on 11/14/16 15:53; Admin Dose 110 MLS/HR; Start 11/11/16 at 15:00; Stop 11/15/16 at 15:59 Pantoprazole (Protonix Tab) 40 mg BID@06,18 PO Last administered on 11/14/16 17 :37; Admin Dose 40 MG; Start 11/12/16 at 18:00 Collagenase (Santyl) 1 applic DAILY TOP Last administered on 11/14/16 09:48; Admin Dose 1 APPLIC; Start 11/13/16 at 09:00 Diagnostic Test (Pha) (Accu-Chek) 1 ea 02 XX ; Start 11/14/16 at 02:00 Insulin Detemir (Levemir) 35 unit QHS@20 SC Last administered on 11/14/16 20:59 ; Admin Dose 35 UNIT; Start 11/14/16 at 20:00 Nicotine (Nicoderm 21 Mg/ 24hr) 1 patch DAILY TRANSDERM Last administered on 21:02; Admin Dose 1 PATCH; Start 11/14/16 at 20:00 CHIP HERNANDEZ MD Nov 14, 2016 22:11
[2016-11-15] VITALS (9 sets, daily range): BP systolic 93–126; BP diastolic 33–81; PULSE 90–120; RESP 18
[2016-11-15] MEDS: ZOLPIDEM 5 MG TAB PO PRN (00:41)
[2016-11-15] MEDS: ACCU-CHEK XX SCH (01:14)
[2016-11-15] MEDS: PANTOPRAZOLE (EC) 40 MG TAB PO SCH ×2 (05:24→17:33)
[2016-11-15] MEDS: BENZONATATE 100 MG CAP PO SCH ×3 (05:24→17:34)
[2016-11-15 06:12] LABS: ABNORMAL IP MESSAGE 1; BASOPHILS % 0.4 % (0.0-2.0); EOSINOPHILS # 0.3 10^3/ul (0.0-0.5); EOSINOPHILS % 2.5 % (0.0-7.0); HEMATOCRIT 31.8 % (37.0-47.0); HEMOGLOBIN 9.7 g/dl (12.0-16.0); LYMPHOCYTES # 1.1 10^3/ul (0.8-2.9); LYMPHOCYTES % 9.7 % (15.0-51.0); MEAN CORPUSCULAR HEMOGLOBIN 28.5 pg (29.0-33.0); MEAN CORPUSCULAR HGB CONC 30.5 g/dl (32.0-37.0); MEAN CORPUSCULAR VOLUME 93.5 fl (82.0-101.0); MEAN PLATELET VOLUME 9.1 fl (7.4-10.4); MONOCYTE # 1.6 10^3/ul (0.3-0.9); MONOCYTES % 14.9 % (0.0-11.0); NEUTROPHIL # 7.7 10^3/ul (1.6-7.5); NEUTROPHILS % 71.5 % (39.0-77.0); PLATELET COUNT 420 10^3/UL (140-415); RED CELL DISTRIBUTION WIDTH 18.7 % (11.5-14.5); WHITE BLOOD COUNT 10.8 10^3/ul (4.8-10.8)
[2016-11-15 07:47] LABS: ADD SCAN DIFF NO
[2016-11-15] MEDS: INSULIN ASPART [NOVOLOG] 3 ML PEN SC SCH ×4 (08:00→21:00)
[2016-11-15] MEDS: SALMETEROL/FLUTICASONE 250/50 INHA INH SCH ×2 (08:33→20:59)
[2016-11-15] MEDS: CALCIUM ACETATE 667 MG CAP PO SCH ×3 (08:33→17:34)
[2016-11-15] MEDS: PYRIDOXINE 50 MG TAB PO SCH (08:33)
[2016-11-15] MEDS: METOCLOPRAMIDE 5 MG TAB PO SCH ×3 (08:33→17:34)
[2016-11-15] MEDS: OXYCODONE/ACETAMINOPHEN (10/325) TAB PO PRN ×2 (08:34→16:35)
[2016-11-15] MEDS: CINACALCET 30 MG TAB PO SCH (08:34)
[2016-11-15] MEDS: MONTELUKAST 10 MG TAB PO SCH (08:34)
[2016-11-15] MEDS: APIXABAN 5 MG TABLET PO SCH ×2 (08:34→21:01)
[2016-11-15] MEDS: ASPIRIN 81 MG TAB PO SCH (08:34)
[2016-11-15] MEDS: METOPROLOL (XL) 50 MG TAB PO SCH ×2 (08:35→21:00)
[2016-11-15] MEDS: LOSARTAN 50 MG TAB PO SCH ×2 (08:36→21:01)
[2016-11-15] MEDS: DILTIAZEM (SR) 60 MG CAP PO SCH ×2 (08:36→21:01)
[2016-11-15] MEDS: AMLODIPINE 5 MG TAB PO SCH (08:36)
[2016-11-15] MEDS: FUROSEMIDE 40 MG TAB PO SCH (08:36)
[2016-11-15] MEDS: NICOTINE (21 MG/24 HR) PATCH TRANSDERM SCH (08:36)
[2016-11-15] MEDS: TIOTROPIUM 18 MCG CAPSULE INHA DEV INH SCH (08:39)
[2016-11-15] MEDS: COLLAGENASE 30 GM TUBE TOP SCH (10:53)
--- NOTE | 2016-11-15 13:47 | PN ---
Date/Time of Note Date/Time of Note DATE: 11/15/16 TIME: 13:46 Assessment/Plan VTE Prophylaxis VTE Prophylaxis Intervention: SCD's Lines/Catheters IV [facility] Saline Lock Urinary Cath still in place: No Assessment/Plan Assessment/Plan 61 yo F with pmhx ESRD on HD, DM2, obesity, HTN admitted following ground level fall at home.Labs here notable for acute on chronic anemia, etio unclear. 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 anemia: GI source v other GI on consult anemia resolved with transfusion, hgb stable FOBT pending hypoglycemia: decreased lantus from 45 to 35 7.2, still holding scheduled mealtime aspart. continue SSI at meals dispo planning: SNF v Subjective 24 Hr Interval Summary Free Text/Dictation Feeling well. Wondering when she can home. Per discussion with nursing, would prefer pt go to a SNF Exam/Review of Systems Vital Signs Vitals Vital Signs Date Time Temp Pulse Resp B/P Pulse Ox O2 Delivery O2 Flow Rate FiO2 11/15/16 08:33 98.1 110 18 126/63 93 11/13/16 08:20 Nasal Cannula 2.0 Intake and Output 11/14/16 11/14/16 11/15/16 15:00 23:00 07:00 Intake Total 620 ml 100 ml Balance 620 ml 100 ml Exam nad sitting up in bed irreg irreg lungs clear abd soft no rashes Results Result Diagram: 11/15/16 0530 11/12/16 1000 Results 24 hrs Laboratory Tests Test 11/14/16 17:34 11/14/16 20:57 11/15/16 05:30 11/15/16 07:38 Bedside Glucose 112 133 81 White Blood Count 10.8 # Red Blood Count 3.40 L Hemoglobin 9.7 L Hematocrit 31.8 L Mean Corpuscular Volume 93.5 Mean Corpuscular Hemoglobin 28.5 L Mean Corpuscular Hemoglobin Concent 30.5 L Red Cell Distribution Width 18.7 H Platelet Count 420 H Mean Platelet Volume 9.1 Neutrophils % 71.5 Lymphocytes % 9.7 L Monocytes % 14.9 H Eosinophils % 2.5 Basophils % 0.4 Nucleated Red Blood Cells % 0.0 Neutrophils # 7.7 H Lymphocytes # 1.1 Monocytes # 1.6 H Eosinophils # 0.3 Basophils # 0.0 Nucleated Red Blood Cells # 0.0 Test 11/15/16 12:02 Bedside Glucose 120 Medications Medications Current Medications Amlodipine Besylate (Norvasc) 5 mg DAILY PO Last administered on 11/15/16 08:36 ; Admin Dose 5 MG; Start 11/11/16 at 09:30 Apixaban (Eliquis) 5 mg BID PO Last administered on 11/15/16 08:34; Admin Dose 5 MG; Start 11/11/16 at 09:30 Aspirin (Aspirin) 81 mg DAILY PO Last administered on 11/15/16 08:34; Admin Dose 81 MG; Start 11/11/16 at 09:30 Atorvastatin Calcium (Lipitor) 40 mg QHS PO Last administered on 11/14/16 21:01 ; Admin Dose 40 MG; Start 11/11/16 at 21:00 Benzonatate (Tessalon) 100 mg Q6 PO Last administered on 11/15/16 12:08; Admin Dose 100 MG; Start 11/11/16 at 12:00 Carisoprodol (Soma) 350 mg Q8 PRN PO MUSCLE SPASMS; Start 11/11/16 at 12:00 Cinacalcet (Sensipar) 30 mg DAILY PO Last administered on 11/15/16 08:34; Admin Dose 30 MG; Start 11/11/16 at 11:00 Diltiazem HCl (Cardizem Sr) 60 mg Q12 PO Last administered on 11/15/16 08:36; Admin Dose 60 MG; Start 11/11/16 at 21:00 Furosemide (Lasix) 80 mg DAILY PO Last administered on 11/15/16 08:36; Admin Dose 80 MG; Start 11/11/16 at 09:30 Losartan Potassium (Cozaar) 50 mg BID PO Last administered on 11/15/16 08:36; Admin Dose 50 MG; Start 11/11/16 at 09:30 Metoprolol Succinate (Toprol Xl) 50 mg BID PO Last administered on 11/15/16 08: 35; Admin Dose 50 MG; Start 11/11/16 at 09:30 Montelukast Sodium (Singulair) 10 mg QAM PO Last administered on 11/15/16 08:34 ; Admin Dose 10 MG; Start 11/11/16 at 11:00 Oxycodone/ Acetaminophen (Endocet (10/ 325)) 1 tab Q6 PRN PO PRN Last administered on 11/15/16 08:34; Admin Dose 1 TAB; Start 11/11/16 at 12:00 Pyridoxine HCl (Vitamin B6) 50 mg DAILY PO Last administered on 11/15/16 08:33 ; Admin Dose 50 MG; Start 11/11/16 at 09:30 Tiotropium [place] (Spiriva) 1 inh DAILY INH Last administered on 11/15/16 08: 39; Admin Dose 1 INH; Start 11/11/16 at 11:00 Zolpidem Tartrate (Ambien) 5 mg QHS PRN PO INSOMNIA Last administered on 00:41; Admin Dose 5 MG; Start 11/11/16 at 09:30 Ondansetron HCl (Zofran Tab) 4 mg Q6H PRN PO NAUSEA AND/OR VOMITING; Start at 10:00 Docusate Sodium (Colace) 100 mg Q12H PRN PO CONSTIPATION; Start 11/11/16 at 10: 00 Salmeterol Xinafoate/ Fluticasone (Advair 250/50 Diskus) 1 inh BID INH Last administered on 11/15/16 08:33; Admin Dose 1 INH; Start 11/11/16 at 11:00 Vancomycin HCl (Vanco Iv Per Pharmacy) PER PHARMACY DOSING NOTE XX ; Start 11/11 at 10:30 Albuterol (Ventolin Hfa) 2 puff Q4H PRN INH AOB; Start 11/11/16 at 10:30 Epoetin [place] 39997 units 10,000 units TuThSa@17 SC Last administered on 17:49; Admin Dose 10,000 UNITS; Start 11/11/16 at 17:00 Ferric Sodium Gluconate Complex/ Sodium Chloride (Ferrlecit/NS) 110 ml @ 110 mls/hr Q24H IVPB Last administered on 11/14/16 15:53; Admin Dose 110 MLS/HR; Start 11/11/16 at 15:00; Stop 11/15/16 at 15:59 Pantoprazole (Protonix Tab) 40 mg BID@06,18 PO Last administered on 11/15/16 05 :24; Admin Dose 40 MG; Start 11/12/16 at 18:00 Collagenase (Santyl) 1 applic DAILY TOP Last administered on 11/15/16 10:53; Admin Dose 1 APPLIC; Start 11/13/16 at 09:00 Diagnostic Test (Pha) (Accu-Chek) 1 ea 02 XX ; Start 11/14/16 at 02:00 Insulin Detemir (Levemir) 35 unit QHS@20 SC Last administered on 11/14/16 20:59 ; Admin Dose 35 UNIT; Start 11/14/16 at 20:00 Nicotine (Nicoderm 21 Mg/ 24hr) 1 patch DAILY TRANSDERM Last administered on 08:36; Admin Dose 1 PATCH; Start 11/14/16 at 20:00 Miscellaneous Information (*Rx Drug Level Order Reminder*) 1 ONCE ONCE XX ; Start 11/16/16 at 05:00; Stop 11/16/16 at 05:01 LUIS E DUFFY MD Nov 15, 2016 13:47
[2016-11-15] MEDS: SOD FERRIC GLUC COMPLX 125 MG in SOD CHLORIDE 0.9% 100 ML IVPB SCH (15:00)
--- NOTE | 2016-11-15 16:56 | CONS ---
Date/Time of Note Date/Time of Note DATE: 11/15/16 TIME: 16:54 Assessment/Plan Assessment/Plan Chief Complaint/Hosp Course Impression: 1. Anemia, need to r/o GIB 2. ESRD 3. Atrial fibrillation 4. Anxiety Recommendation: 1. awaiting occult blood results, if positive then proceed with EGD and colonoscopy (pt also declined any endoscopic procedure unless there is occult positive stool). 2. before any endoscopic procedure, will need cardiac optimization and clearance given her A. fib and cardiac history 3. protonix 40 mg po bid 4. transfuse to keep hgb > 8, INR < 1.5, PLT > 50 5. ativan 1 mg q4h PRN anxiety, in agreement with hospitalist Problems: Consultation Date/Type/Reason Admit Date/Time Nov 11, 2016 at 06:40 Initial Consult Date 11/12/16 Type of Consultation: GI 24 HR Interval Summary Free Text/Dictation very anxious, getting dialysis Exam/Review of Systems Vital Signs Vitals Vital Signs Date Time Temp Pulse Resp B/P Pulse Ox O2 Delivery O2 Flow Rate FiO2 11/15/16 15:20 102 11/15/16 14:50 20 11/15/16 08:33 98.1 126/63 93 11/13/16 08:20 Nasal Cannula 2.0 Intake and Output 11/14/16 11/14/16 11/15/16 15:00 23:00 07:00 Intake Total 620 ml 100 ml Balance 620 ml 100 ml Exam Constitutional: alert, oriented, well developed Psych: anxiety Head: atraumatic, normocephalic Eyes: EOMI, nl conjunctiva, nl lids ENMT: mucosa pink and moist, nl external ears & nose, nl lips & teeth, nl nasal mucosa & septum Neck: non-tender, supple Respiratory: clear to auscultation, normal air movement Cardiovascular: nl pulses, regular rate and rhythm Gastrointestinal: bowel sounds, non-tender, soft Results Result Diagram: 11/15/16 0530 11/12/16 1000 Results 24 hrs Laboratory Tests Test 11/14/16 17:34 11/14/16 20:57 11/15/16 05:30 11/15/16 07:38 Bedside Glucose 112 133 81 White Blood Count 10.8 # Red Blood Count 3.40 L Hemoglobin 9.7 L Hematocrit 31.8 L Mean Corpuscular Volume 93.5 Mean Corpuscular Hemoglobin 28.5 L Mean Corpuscular Hemoglobin Concent 30.5 L Red Cell Distribution Width 18.7 H Platelet Count 420 H Mean Platelet Volume 9.1 Neutrophils % 71.5 Lymphocytes % 9.7 L Monocytes % 14.9 H Eosinophils % 2.5 Basophils % 0.4 Nucleated Red Blood Cells % 0.0 Neutrophils # 7.7 H Lymphocytes # 1.1 Monocytes # 1.6 H Eosinophils # 0.3 Basophils # 0.0 Nucleated Red Blood Cells # 0.0 Test 11/15/16 12:02 Bedside Glucose 120 Medications Medications Current Medications Amlodipine Besylate (Norvasc) 5 mg DAILY PO Last administered on 11/15/16 08:36 ; Admin Dose 5 MG; Start 11/11/16 at 09:30 Apixaban (Eliquis) 5 mg BID PO Last administered on 11/15/16 08:34; Admin Dose 5 MG; Start 11/11/16 at 09:30 Aspirin (Aspirin) 81 mg DAILY PO Last administered on 11/15/16 08:34; Admin Dose 81 MG; Start 11/11/16 at 09:30 Atorvastatin Calcium (Lipitor) 40 mg QHS PO Last administered on 11/14/16 21:01 ; Admin Dose 40 MG; Start 11/11/16 at 21:00 Benzonatate (Tessalon) 100 mg Q6 PO Last administered on 11/15/16 12:08; Admin Dose 100 MG; Start 11/11/16 at 12:00 Carisoprodol (Soma) 350 mg Q8 PRN PO MUSCLE SPASMS; Start 11/11/16 at 12:00 Cinacalcet (Sensipar) 30 mg DAILY PO Last administered on 11/15/16 08:34; Admin Dose 30 MG; Start 11/11/16 at 11:00 Diltiazem HCl (Cardizem Sr) 60 mg Q12 PO Last administered on 11/15/16 08:36; Admin Dose 60 MG; Start 11/11/16 at 21:00 Furosemide (Lasix) 80 mg DAILY PO Last administered on 11/15/16 08:36; Admin Dose 80 MG; Start 11/11/16 at 09:30 Losartan Potassium (Cozaar) 50 mg BID PO Last administered on 11/15/16 08:36; Admin Dose 50 MG; Start 11/11/16 at 09:30 Metoprolol Succinate (Toprol Xl) 50 mg BID PO Last administered on 11/15/16 08: 35; Admin Dose 50 MG; Start 11/11/16 at 09:30 Montelukast Sodium (Singulair) 10 mg QAM PO Last administered on 11/15/16 08:34 ; Admin Dose 10 MG; Start 11/11/16 at 11:00 Oxycodone/ Acetaminophen (Endocet (10/ 325)) 1 tab Q6 PRN PO PRN Last administered on 11/15/16 16:35; Admin Dose 1 TAB; Start 11/11/16 at 12:00 Pyridoxine HCl (Vitamin B6) 50 mg DAILY PO Last administered on 11/15/16 08:33 ; Admin Dose 50 MG; Start 11/11/16 at 09:30 Tiotropium [place] (Spiriva) 1 inh DAILY INH Last administered on 11/15/16 08: 39; Admin Dose 1 INH; Start 11/11/16 at 11:00 Zolpidem Tartrate (Ambien) 5 mg QHS PRN PO INSOMNIA Last administered on 00:41; Admin Dose 5 MG; Start 11/11/16 at 09:30 Ondansetron HCl (Zofran Tab) 4 mg Q6H PRN PO NAUSEA AND/OR VOMITING; Start at 10:00 Docusate Sodium (Colace) 100 mg Q12H PRN PO CONSTIPATION; Start 11/11/16 at 10: 00 Salmeterol Xinafoate/ Fluticasone (Advair 250/50 Diskus) 1 inh BID INH Last administered on 11/15/16 08:33; Admin Dose 1 INH; Start 11/11/16 at 11:00 Vancomycin HCl (Vanco Iv Per Pharmacy) PER PHARMACY DOSING NOTE XX ; Start 11/11 at 10:30 Albuterol (Ventolin Hfa) 2 puff Q4H PRN INH AOB; Start 11/11/16 at 10:30 Epoetin Hang (Epogen (Esrd)) 10,000 units TuThSa@17 SC Last administered on 11/13 17:49; Admin Dose 10,000 UNITS; Start 6/29/17 at 17:00 Pantoprazole (Protonix Tab) 40 mg BID@06,18 PO Last administered on 11/15/16 05 :24; Admin Dose 40 MG; Start 11/12/16 at 18:00 Collagenase (Santyl) 1 applic DAILY TOP Last administered on 11/15/16 10:53; Admin Dose 1 APPLIC; Start 11/13/16 at 09:00 Diagnostic Test (Pha) (Accu-Chek) 1 ea 02 XX ; Start 11/14/16 at 02:00 Insulin Detemir (Levemir) 35 unit QHS@20 SC Last administered on 11/14/16 20:59 ; Admin Dose 35 UNIT; Start 11/14/16 at 20:00 Nicotine (Nicoderm 21 Mg/ 24hr) 1 patch DAILY TRANSDERM Last administered on 08:36; Admin Dose 1 PATCH; Start 11/14/16 at 20:00 Miscellaneous Information 1 ONCE ONCE XX ; Start 11/16/16 at 05:00; Stop at 05:01 Albumin Human (Albumin Human 25%) 100 ml @ 100 mls/hr ONCE ONCE IV ; Start 11/15/16 at 17:00; Stop 11/15/16 at 17:59 CHIP HERNANDEZ MD Nov 15, 2016 16:55
[2016-11-15] MEDS: LORAZEPAM 2 MG INJ IV PRN (16:58)
[2016-11-15] MEDS ORDERED: ALBUMIN HUMAN 25% 100 ML IV ONE (17:00)
[2016-11-15] MEDS: CARISOPRODOL 350 MG TAB PO PRN (17:34)
[2016-11-15] MEDS: ATORVASTATIN 40 MG TAB PO SCH (20:59)
[2016-11-15] MEDS: INSULIN DETEMIR [LEVEMIR] 3ML CART SC SCH (21:03)
[2016-11-16] MEDS: ACCU-CHEK XX SCH ×2 (01:53→20:46)
[2016-11-16 05:30] LABS: ADD SCAN DIFF NO
[2016-11-16 05:38] LABS: ABNORMAL IP MESSAGE 1; BASOPHIL # 0.1 10^3/ul (0.0-0.1); BASOPHILS % 0.6 % (0.0-2.0); EOSINOPHILS # 0.4 10^3/ul (0.0-0.5); EOSINOPHILS % 3.7 % (0.0-7.0); HEMATOCRIT 29.7 % (37.0-47.0); LYMPHOCYTES % 9.3 % (15.0-51.0); MEAN CORPUSCULAR HEMOGLOBIN 28.6 pg (29.0-33.0); MEAN CORPUSCULAR HGB CONC 30.3 g/dl (32.0-37.0); MEAN CORPUSCULAR VOLUME 94.3 fl (82.0-101.0); MEAN PLATELET VOLUME 9.1 fl (7.4-10.4); MONOCYTE # 1.8 10^3/ul (0.3-0.9); NEUTROPHIL # 7.6 10^3/ul (1.6-7.5); NEUTROPHILS % 69.4 % (39.0-77.0); PLATELET COUNT 381 10^3/UL (140-415); RED BLOOD COUNT 3.15 10^6/ul (4.20-5.40); RED CELL DISTRIBUTION WIDTH 18.6 % (11.5-14.5)
[2016-11-16] MEDS: OXYCODONE/ACETAMINOPHEN (10/325) TAB PO PRN ×3 (05:38→20:52)
[2016-11-16] MEDS: BENZONATATE 100 MG CAP PO SCH ×5 (05:39→23:36)
[2016-11-16] MEDS: PANTOPRAZOLE (EC) 40 MG TAB PO SCH ×2 (05:39→17:45)
[2016-11-16] MEDS: METOCLOPRAMIDE 5 MG TAB PO SCH ×3 (07:40→17:45)
[2016-11-16] MEDS: CALCIUM ACETATE 667 MG CAP PO SCH ×3 (07:40→17:45)
[2016-11-16] MEDS: CARISOPRODOL 350 MG TAB PO PRN ×3 (07:40→22:24)
[2016-11-16] MEDS: INSULIN ASPART [NOVOLOG] 3 ML PEN SC SCH ×4 (07:45→20:46)
[2016-11-16 08:00] VITALS: BP 106/78; RESP 20
[2016-11-16] MEDS: ASPIRIN 81 MG TAB PO SCH (08:54)
[2016-11-16] MEDS: METOPROLOL (XL) 50 MG TAB PO SCH ×2 (08:54→20:51)
[2016-11-16] MEDS: MONTELUKAST 10 MG TAB PO SCH (08:55)
[2016-11-16] MEDS: DILTIAZEM (SR) 60 MG CAP PO SCH ×2 (08:55→20:50)
[2016-11-16] MEDS: PYRIDOXINE 50 MG TAB PO SCH (08:55)
[2016-11-16] MEDS: LOSARTAN 50 MG TAB PO SCH ×2 (08:55→20:51)
[2016-11-16] MEDS: FUROSEMIDE 40 MG TAB PO SCH (08:55)
[2016-11-16] MEDS: TIOTROPIUM 18 MCG CAPSULE INHA DEV INH SCH (08:55)
[2016-11-16] MEDS: APIXABAN 5 MG TABLET PO SCH ×2 (08:55→20:51)
[2016-11-16] MEDS: CINACALCET 30 MG TAB PO SCH (08:55)
[2016-11-16] MEDS: SALMETEROL/FLUTICASONE 250/50 INHA INH SCH ×2 (08:56→20:48)
[2016-11-16] MEDS: AMLODIPINE 5 MG TAB PO SCH (08:56)
[2016-11-16] MEDS: NICOTINE (21 MG/24 HR) PATCH TRANSDERM SCH (08:56)
[2016-11-16] MEDS: COLLAGENASE 30 GM TUBE TOP SCH (08:57)
--- NOTE | 2016-11-16 10:07 | PN ---
Date/Time of Note Date/Time of Note DATE: 11/16/16 TIME: 10:03 Assessment/Plan VTE Prophylaxis VTE Prophylaxis Intervention: other (Factor Xa inhibitors.) Lines/Catheters IV [facility] Lock Urinary Cath still in place: No Assessment/Plan Chief Complaint/Hosp Course 1. Left lower extremity chronic wound. The patient has a wound VAC in place. Being followed by vascular surgery. 2. Type 2 diabetes mellitus. Continue sliding scale insulin. 3. Dyslipidemia. Continue statins. 4. Essential hypertension. Continue antihypertensives. 5. COPD. No evidence of exacerbation. Continue inhaled bronchodilators. 6. Pulmonary hypertension. PA systolic pressure of 56 mmHg. 7. End-stage renal disease on hemodialysis. Continue hemodialysis as per nephrology. 8. Normocytic, normochromic anemia. Most probably anemia of chronic kidney disease. Being followed by gastroenterology. 9. Obesity. BMI of 44.0 kg/m. Weight reduction advised. 10. Fluids, electrolytes, and nutrition. Carbohydrate controlled, renal diet. 11. DVT prophylaxis. On factor Xa inhibitors. 12. Gastrointestinal prophylaxis. Proton pump inhibitors. 13. Plan. Continue current management. Await placement. Case discussed with . Problems: Subjective 24 Hr Interval Summary Free Text/Dictation Complains of pain in the left lower extremity. Exam/Review of Systems Vital Signs Vitals Vital Signs Date Time Temp Pulse Resp B/P Pulse Ox O2 Delivery O2 Flow Rate FiO2 11/15/16 19:38 97.4 109 18 125/81 100 11/13/16 08:20 Nasal Cannula 2.0 Intake and Output 11/15/16 11/15/16 11/16/16 15:00 23:00 07:00 Intake Total 1100 ml 220 ml Output Total 2000 ml Balance -900 ml 220 ml Exam General: Morbidly obese 61 year-old female lying in bed in no apparent distress. HEENT: Normocephalic, atraumatic. Eyes: Anicteric sclerae, conjunctivae clear. ENT: Nasal septum midline, oral mucosa moist. Neck supple, no JVD noticed. Respiratory: Bilaterally clear breath sounds. No use of accessory muscles of respiration. No adventitious breath sounds. Cardiovascular: S1, S2 heard. No murmurs or gallops. Abdomen: Soft, nontender, and nondistended. Bowel sounds positive in all 4 quadrants. Genitourinary: Deferred. Extremities: No cyanosis, no clubbing. Peripheral pulses palpable. Bilateral lower extremity 2+ pitting edema. Left lateral thigh area wound VAC in place. Neurologic: Cranial nerves II through XII grossly intact. The patient is awake, alert, and oriented. Results Result Diagram: 11/16/16 0515 11/12/16 1000 Results 24 hrs Laboratory Tests Test 11/15/16 12:02 11/15/16 17:36 11/15/16 20:58 11/16/16 05:15 Bedside Glucose 120 143 164 White Blood Count 11.0 H Red Blood Count 3.15 L Hemoglobin 9.0 L Hematocrit 29.7 L Mean Corpuscular Volume 94.3 Mean Corpuscular Hemoglobin 28.6 L Mean Corpuscular Hemoglobin Concent 30.3 L Red Cell Distribution Width 18.6 H Platelet Count 381 Mean Platelet Volume 9.1 Neutrophils % 69.4 Lymphocytes % 9.3 L Monocytes % 16.0 H Eosinophils % 3.7 Basophils % 0.6 Nucleated Red Blood Cells % 0.0 Neutrophils # 7.6 H Lymphocytes # 1.0 Monocytes # 1.8 H Eosinophils # 0.4 Basophils # 0.1 Nucleated Red Blood Cells # 0.0 Random Vancomycin Level 16.3 Test 11/16/16 07:44 Bedside Glucose 118 Medications Medications Current Medications Amlodipine Besylate (Norvasc) 5 mg DAILY PO Last administered on 11/16/16 08:56 ; Admin Dose 5 MG; Start 11/11/16 at 09:30 Apixaban (Eliquis) 5 mg BID PO Last administered on 11/16/16 08:55; Admin Dose 5 MG; Start 11/11/16 at 09:30 Aspirin (Aspirin) 81 mg DAILY PO Last administered on 11/16/16 08:54; Admin Dose 81 MG; Start 11/11/16 at 09:30 Atorvastatin Calcium (Lipitor) 40 mg QHS PO Last administered on 11/15/16 20:59 ; Admin Dose 40 MG; Start 11/11/16 at 21:00 Benzonatate (Tessalon) 100 mg Q6 PO Last administered on 11/16/16 05:39; Admin Dose 100 MG; Start 11/11/16 at 12:00 Carisoprodol (Soma) 350 mg Q8 PRN PO MUSCLE SPASMS Last administered on 07:40; Admin Dose 350 MG; Start 11/11/16 at 12:00 Cinacalcet (Sensipar) 30 mg DAILY PO Last administered on 11/16/16 08:55; Admin Dose 30 MG; Start 11/11/16 at 11:00 Diltiazem HCl (Cardizem Sr) 60 mg Q12 PO Last administered on 11/16/16 08:55; Admin Dose 60 MG; Start 11/11/16 at 21:00 Furosemide (Lasix) 80 mg DAILY PO Last administered on 11/16/16 08:55; Admin Dose 80 MG; Start 11/11/16 at 09:30 Losartan Potassium (Cozaar) 50 mg BID PO Last administered on 11/16/16 08:55; Admin Dose 50 MG; Start 11/11/16 at 09:30 Metoprolol Succinate (Toprol Xl) 50 mg BID PO Last administered on 11/16/16 08: 54; Admin Dose 50 MG; Start 11/11/16 at 09:30 Montelukast Sodium (Singulair) 10 mg QAM PO Last administered on 11/16/16 08:55 ; Admin Dose 10 MG; Start 11/11/16 at 11:00 Oxycodone/ Acetaminophen (Endocet (10/ 325)) 1 tab Q6 PRN PO PRN Last administered on 11/16/16 05:38; Admin Dose 1 TAB; Start 11/11/16 at 12:00 Pyridoxine HCl (Vitamin B6) 50 mg DAILY PO Last administered on 11/16/16 08:55 ; Admin Dose 50 MG; Start 11/11/16 at 09:30 Tiotropium [place] (Spiriva) 1 inh DAILY INH Last administered on 11/16/16 08: 55; Admin Dose 1 INH; Start 11/11/16 at 11:00 Zolpidem Tartrate (Ambien) 5 mg QHS PRN PO INSOMNIA Last administered on 00:41; Admin Dose 5 MG; Start 11/11/16 at 09:30 Ondansetron HCl (Zofran Tab) 4 mg Q6H PRN PO NAUSEA AND/OR VOMITING; Start at 10:00 Docusate Sodium (Colace) 100 mg Q12H PRN PO CONSTIPATION; Start 11/11/16 at 10: 00 Salmeterol Xinafoate/ Fluticasone (Advair 250/50 Diskus) 1 inh BID INH Last administered on 11/16/16 08:56; Admin Dose 1 INH; Start 11/11/16 at 11:00 Vancomycin HCl (Vanco Iv Per Pharmacy) PER PHARMACY DOSING NOTE XX ; Start 11/11 at 10:30 Albuterol (Ventolin Hfa) 2 puff Q4H PRN INH AOB; Start 11/11/16 at 10:30 Epoetin Hang (Epogen (Esrd)) 10,000 units TuThSa@17 SC Last administered on 11/13 17:49; Admin Dose 10,000 UNITS; Start 11/11/16 at 17:00 Pantoprazole (Protonix Tab) 40 mg BID@06,18 PO Last administered on 11/16/16 05 :39; Admin Dose 40 MG; Start 11/12/16 at 18:00 Collagenase (Santyl) 1 applic DAILY TOP Last administered on 11/15/16 10:53; Admin Dose 1 APPLIC; Start 11/13/16 at 09:00 Diagnostic Test (Pha) (Accu-Chek) 1 ea 02 XX ; Start 11/14/16 at 02:00 Insulin Detemir (Levemir) 35 unit QHS@20 SC Last administered on 11/15/16 21:03 ; Admin Dose 35 UNIT; Start 11/14/16 at 20:00 Nicotine (Nicoderm 21 Mg/ 24hr) 1 patch DAILY TRANSDERM Last administered on 08:56; Admin Dose 1 PATCH; Start 11/14/16 at 20:00 Lorazepam (Ativan) 1 mg Q4 PRN IV ANXIETY Last administered on 11/15/16 16:58; Admin Dose 1 MG; Start 11/15/16 at 17:00 LISA SPAIN NP Nov 16, 2016 10:07 LISA SPAIN NP Nov 16, 2016 10:07
--- NOTE | 2016-11-16 11:34 | CONS ---
Date/Time of Note Date/Time of Note DATE: 11/16/16 TIME: 11:30 Assessment/Plan Assessment/Plan Chief Complaint/Hosp Course Impression: 1. Anemia, need to r/o GIB 2. ESRD 3. Atrial fibrillation 4. Anxiety Recommendation: 1. awaiting occult blood results, if positive then proceed with EGD and colonoscopy (pt also declined any endoscopic procedure unless there is occult positive stool). 2. I re-ordered occult blood again. Hopefully the stool can be collected and send for occult blood. 3. I changed colace from PRN to standing so hopefully there will be stool to be sent so it is not forgotten. 4. before any endoscopic procedure, will need cardiac optimization and clearance given her A. fib and cardiac history 5. continue protonix 40 mg po bid 6. transfuse to keep hgb > 8, INR < 1.5, PLT > [address] Burr to resume the care of this patient tomorrow from GI perspective. Problems: Consultation Date/Type/Reason Admit Date/Time Nov 11, 2016 at 06:40 Initial Consult Date 11/12/16 Type of Consultation: GI 24 HR Interval Summary Free Text/Dictation Complains of pain in the left lower extremity. Denies melena, brbpr, coffee ground emesis. Declines EGD and colonoscopy unless occult blood positive. Exam/Review of Systems Vital Signs Vitals Vital Signs Date Time Temp Pulse Resp B/P Pulse Ox O2 Delivery O2 Flow Rate FiO2 11/16/16 08:00 98.6 88 20 106/78 94 11/13/16 08:20 Nasal Cannula 2.0 Intake and Output 11/15/16 11/15/16 11/16/16 15:00 23:00 07:00 Intake Total 1100 ml 220 ml Output Total 2000 ml Balance -900 ml 220 ml Exam Constitutional: alert, oriented, well developed Psych: nl mood/affect, no complaints Head: atraumatic, normocephalic Eyes: EOMI, nl conjunctiva, nl lids, nl sclera ENMT: mucosa pink and moist, nl external ears & nose, nl lips & teeth, nl nasal mucosa & septum Neck: non-tender, supple Respiratory: clear to auscultation, normal air movement Cardiovascular: nl pulses, regular rate and rhythm Gastrointestinal: bowel sounds, non-tender, soft Results Result Diagram: 11/16/16 0515 11/12/16 1000 Results 24 hrs Laboratory Tests Test 11/15/16 12:02 11/15/16 17:36 11/15/16 20:58 11/16/16 05:15 Bedside Glucose 120 143 164 White Blood Count 11.0 H Red Blood Count 3.15 L Hemoglobin 9.0 L Hematocrit 29.7 L Mean Corpuscular Volume 94.3 Mean Corpuscular Hemoglobin 28.6 L Mean Corpuscular Hemoglobin Concent 30.3 L Red Cell Distribution Width 18.6 H Platelet Count 381 Mean Platelet Volume 9.1 Neutrophils % 69.4 Lymphocytes % 9.3 L Monocytes % 16.0 H Eosinophils % 3.7 Basophils % 0.6 Nucleated Red Blood Cells % 0.0 Neutrophils # 7.6 H Lymphocytes # 1.0 Monocytes # 1.8 H Eosinophils # 0.4 Basophils # 0.1 Nucleated Red Blood Cells # 0.0 Random Vancomycin Level 16.3 Test 11/16/16 07:44 Bedside Glucose 118 Medications Medications Current Medications Amlodipine Besylate (Norvasc) 5 mg DAILY PO Last administered on 11/16/16 08:56 ; Admin Dose 5 MG; Start 11/11/16 at 09:30 Apixaban (Eliquis) 5 mg BID PO Last administered on 11/16/16 08:55; Admin Dose 5 MG; Start 11/11/16 at 09:30 Aspirin (Aspirin) 81 mg DAILY PO Last administered on 11/16/16 08:54; Admin Dose 81 MG; Start 11/11/16 at 09:30 Atorvastatin Calcium (Lipitor) 40 mg QHS PO Last administered on 11/15/16 20:59 ; Admin Dose 40 MG; Start 11/11/16 at 21:00 Benzonatate (Tessalon) 100 mg Q6 PO Last administered on 11/16/16 05:39; Admin Dose 100 MG; Start 11/11/16 at 12:00 Carisoprodol (Soma) 350 mg Q8 PRN PO MUSCLE SPASMS Last administered on 07:40; Admin Dose 350 MG; Start 11/11/16 at 12:00 Cinacalcet (Sensipar) 30 mg DAILY PO Last administered on 11/16/16 08:55; Admin Dose 30 MG; Start 11/11/16 at 11:00 Diltiazem HCl (Cardizem Sr) 60 mg Q12 PO Last administered on 11/16/16 08:55; Admin Dose 60 MG; Start 11/11/16 at 21:00 Furosemide (Lasix) 80 mg DAILY PO Last administered on 11/16/16 08:55; Admin Dose 80 MG; Start 11/11/16 at 09:30 Losartan Potassium (Cozaar) 50 mg BID PO Last administered on 11/16/16 08:55; Admin Dose 50 MG; Start 11/11/16 at 09:30 Metoprolol Succinate (Toprol Xl) 50 mg BID PO Last administered on 11/16/16 08: 54; Admin Dose 50 MG; Start 11/11/16 at 09:30 Montelukast Sodium (Singulair) 10 mg QAM PO Last administered on 11/16/16 08:55 ; Admin Dose 10 MG; Start 11/11/16 at 11:00 Oxycodone/ Acetaminophen (Endocet (10/ 325)) 1 tab Q6 PRN PO PRN Last administered on 11/16/16 05:38; Admin Dose 1 TAB; Start 11/11/16 at 12:00 Pyridoxine HCl (Vitamin B6) 50 mg DAILY PO Last administered on 11/16/16 08:55 ; Admin Dose 50 MG; Start 11/11/16 at 09:30 Tiotropium [place] (Spiriva) 1 inh DAILY INH Last administered on 11/16/16 08: 55; Admin Dose 1 INH; Start 11/11/16 at 11:00 Zolpidem Tartrate (Ambien) 5 mg QHS PRN PO INSOMNIA Last administered on 00:41; Admin Dose 5 MG; Start 11/11/16 at 09:30 Ondansetron HCl (Zofran Tab) 4 mg Q6H PRN PO NAUSEA AND/OR VOMITING; Start at 10:00 Docusate Sodium (Colace) 100 mg Q12H PRN PO CONSTIPATION; Start 11/11/16 at 10: 00 Salmeterol Xinafoate/ Fluticasone (Advair 250/50 Diskus) 1 inh BID INH Last administered on 11/16/16 08:56; Admin Dose 1 INH; Start 11/11/16 at 11:00 Vancomycin HCl (Vanco Iv Per Pharmacy) PER PHARMACY DOSING NOTE XX ; Start 11/11 at 10:30 Albuterol (Ventolin Hfa) 2 puff Q4H PRN INH AOB; Start 11/11/16 at 10:30 Epoetin Hang (Epogen (Esrd)) 10,000 units TuThSa@17 SC Last administered on 11/13 17:49; Admin Dose 10,000 UNITS; Start 11/11/16 at 17:00 Pantoprazole (Protonix Tab) 40 mg BID@06,18 PO Last administered on 11/16/16 05 :39; Admin Dose 40 MG; Start 11/12/16 at 18:00 Collagenase (Santyl) 1 applic DAILY TOP Last administered on 11/15/16 10:53; Admin Dose 1 APPLIC; Start 11/13/16 at 09:00 Diagnostic Test (Pha) (Accu-Chek) 1 ea 02 XX ; Start 11/14/16 at 02:00 Insulin Detemir (Levemir) 35 unit QHS@20 SC Last administered on 11/15/16 21:03 ; Admin Dose 35 UNIT; Start 11/14/16 at 20:00 Nicotine (Nicoderm 21 Mg/ 24hr) 1 patch DAILY TRANSDERM Last administered on 08:56; Admin Dose 1 PATCH; Start 11/14/16 at 20:00 Lorazepam (Ativan) 1 mg Q4 PRN IV ANXIETY Last administered on 11/15/16 16:58; Admin Dose 1 MG; Start 11/15/16 at 17:00 CHIP HERNANDEZ MD Nov 16, 2016 11:34
[2016-11-16] MEDS: LORAZEPAM 2 MG INJ IV PRN ×2 (11:44→23:38)
[2016-11-16] MEDS: EPOETIN 10000 UNITS/1 ML INJ (ESRD) SC SCH (17:45)
[2016-11-16] MEDS: VANCOMYCIN 1 GM in NS 250 ML IVPB SCH (17:46)
[2016-11-16 20:41] VITALS: BP 123/62; RESP 18
[2016-11-16] MEDS: INSULIN DETEMIR [LEVEMIR] 3ML CART SC SCH (20:49)
[2016-11-16] MEDS: ONDANSETRON 4 MG TAB PO PRN (20:49)
[2016-11-16] MEDS: ATORVASTATIN 40 MG TAB PO SCH (20:51)
[2016-11-16] MEDS: DOCUSATE SODIUM 100 MG CAP PO SCH (21:29)
[2016-11-16] MEDS: ZOLPIDEM 5 MG TAB PO PRN (21:29)
[2016-11-16] MEDS ORDERED: METOCLOPRAMIDE 10 MG INJ IV ONE (22:00)
[2016-11-16] MEDS ORDERED: BISMUTH SUBSALICYLATE 120 ML BTL PO ONE (22:00)
[2016-11-17] VITALS (13 sets, daily range): BP systolic 90–132; BP diastolic 56–78; PULSE 95–125; RESP 18–19
[2016-11-17 00:52] LABS: ADD UMIC YES; UR ASCORBIC ACID NEGATIVE (NEGATIVE); UR BACTERIA MODERATE /HPF (NONE SEEN); UR BILIRUBIN (Dip) NEGATIVE (NEGATIVE); UR BLOOD (Dip) 2+ mg/dL (NEGATIVE); UR CLARITY TURBID (CLEAR); UR COLOR AMBER (YELLOW); UR GLUCOSE (Dip) NEGATIVE (NEGATIVE); UR KETONES (Dip) NEGATIVE (NEGATIVE); UR LEUKOCYTE ESTERASE (Dip) 2+ Leu/ul (NEGATIVE); UR NITRITE (Dip) NEGATIVE (NEGATIVE); UR RBC 180 /HPF (0-5); UR SPECIFIC GRAVITY (Dip) 1.012 (1.003-1.030); UR SQUAMOUS EPITHELIAL CELL FEW /HPF (FEW); UR TOTAL PROTEIN (Dip) 2+ mg/dl (NEGATIVE); UR UROBILINOGEN (Dip) NEGATIVE (NEGATIVE); UR WBC CLUMPS MANY /HPF (NONE SEEN)
[2016-11-17] MEDS: OXYCODONE/ACETAMINOPHEN (10/325) TAB PO PRN ×2 (04:14→13:35)
[2016-11-17] MEDS: BENZONATATE 100 MG CAP PO SCH ×3 (05:38→17:14)
[2016-11-17] MEDS: PANTOPRAZOLE (EC) 40 MG TAB PO SCH ×2 (05:39→17:14)
[2016-11-17 05:49] LABS: ADD SCAN DIFF NO
[2016-11-17 05:54] LABS: ABNORMAL IP MESSAGE 1; BASOPHIL # 0.1 10^3/ul (0.0-0.1); BASOPHILS % 0.5 % (0.0-2.0); EOSINOPHILS # 0.4 10^3/ul (0.0-0.5); EOSINOPHILS % 2.5 % (0.0-7.0); HEMOGLOBIN 9.4 g/dl (12.0-16.0); LYMPHOCYTES # 1.1 10^3/ul (0.8-2.9); LYMPHOCYTES % 7.8 % (15.0-51.0); MEAN CORPUSCULAR HEMOGLOBIN 28.7 pg (29.0-33.0); MEAN CORPUSCULAR HGB CONC 30.3 g/dl (32.0-37.0); MEAN CORPUSCULAR VOLUME 94.8 fl (82.0-101.0); MEAN PLATELET VOLUME 8.8 fl (7.4-10.4); MONOCYTE # 1.9 10^3/ul (0.3-0.9); MONOCYTES % 13.5 % (0.0-11.0); NEUTROPHIL # 10.6 10^3/ul (1.6-7.5); NEUTROPHILS % 74.4 % (39.0-77.0); NUCLEATED RED BLOOD CELLS% 0.1 /100WBC (0.0-0.0); PLATELET COUNT 446 10^3/UL (140-415); RED BLOOD COUNT 3.27 10^6/ul (4.20-5.40); RED CELL DISTRIBUTION WIDTH 18.5 % (11.5-14.5); WHITE BLOOD COUNT 14.2 10^3/ul (4.8-10.8)
[2016-11-17] MEDS: CARISOPRODOL 350 MG TAB PO PRN ×2 (06:27→22:27)
[2016-11-17 07:09] LABS: CALCIUM 9.2 mg/dl (8.4-10.2); CREATININE 4.89 mg/dl (0.44-1.00); POTASSIUM 4.5 mmol/L (3.5-5.1)
[2016-11-17 07:10] LABS: MAGNESIUM 2.4 mg/dl (1.7-2.5); PHOSPHORUS 4.8 mg/dl (2.5-4.9)
[2016-11-17] MEDS: METOCLOPRAMIDE 5 MG TAB PO SCH ×3 (07:44→17:14)
[2016-11-17] MEDS: CALCIUM ACETATE 667 MG CAP PO SCH ×3 (07:44→17:14)
[2016-11-17] MEDS: INSULIN ASPART [NOVOLOG] 3 ML PEN SC SCH ×4 (07:48→21:22)
[2016-11-17] MEDS: NICOTINE (21 MG/24 HR) PATCH TRANSDERM SCH (08:59)
[2016-11-17] MEDS: ASPIRIN 81 MG TAB PO SCH (08:59)
[2016-11-17] MEDS: TIOTROPIUM 18 MCG CAPSULE INHA DEV INH SCH (08:59)
[2016-11-17] MEDS: SALMETEROL/FLUTICASONE 250/50 INHA INH SCH ×2 (08:59→21:16)
[2016-11-17] MEDS: APIXABAN 5 MG TABLET PO SCH ×2 (09:00→21:17)
[2016-11-17] MEDS: METOPROLOL (XL) 50 MG TAB PO SCH ×2 (09:00→21:18)
[2016-11-17] MEDS: LOSARTAN 50 MG TAB PO SCH ×2 (09:00→21:17)
[2016-11-17] MEDS: PYRIDOXINE 50 MG TAB PO SCH (09:00)
[2016-11-17] MEDS: FUROSEMIDE 40 MG TAB PO SCH (09:00)
[2016-11-17] MEDS: AMLODIPINE 5 MG TAB PO SCH (09:00)
[2016-11-17] MEDS: MONTELUKAST 10 MG TAB PO SCH (09:00)
[2016-11-17] MEDS: DILTIAZEM (SR) 60 MG CAP PO SCH ×2 (09:00→21:17)
[2016-11-17] MEDS: CINACALCET 30 MG TAB PO SCH (09:01)
[2016-11-17] MEDS: COLLAGENASE 30 GM TUBE TOP SCH (09:02)
[2016-11-17] MEDS: DOCUSATE SODIUM 100 MG CAP PO SCH ×2 (09:10→21:18)
--- NOTE | 2016-11-17 11:28 | PN ---
Date/Time of Note Date/Time of Note DATE: 11/17/16 TIME: 11:27 Assessment/Plan VTE Prophylaxis VTE Prophylaxis Intervention: other (Factor Xa inhibitors.) Lines/Catheters IV Catheter Type (from [place]): [facility] [facility] Urinary Cath still in place: No Assessment/Plan Chief Complaint/Hosp Course 1. Left lower extremity chronic wound. The patient has a wound VAC in place. Being followed by vascular surgery. 2. Type 2 diabetes mellitus. Continue sliding scale insulin. 3. Dyslipidemia. Continue statins. 4. Essential hypertension. Continue antihypertensives. 5. COPD. No evidence of exacerbation. Continue inhaled bronchodilators. 6. Pulmonary hypertension. PA systolic pressure of 56 mmHg. 7. End-stage renal disease on hemodialysis. Continue hemodialysis as per nephrology. 8. Normocytic, normochromic anemia. Most probably anemia of chronic kidney disease. Being followed by gastroenterology. 9. Obesity. BMI of 44.0 kg/m. Weight reduction advised. 10. Fluids, electrolytes, and nutrition. Carbohydrate controlled, renal diet. 11. DVT prophylaxis. On factor Xa inhibitors. 12. Gastrointestinal prophylaxis. Proton pump inhibitors. 13. Plan. Continue current management. Await placement to a SNF. Case discussed with . Problems: Subjective 24 Hr Interval Summary Free Text/Dictation The patient is constipated. Remains afebrile. Getting HD. Exam/Review of Systems Vital Signs Vitals Vital Signs Date Time Temp Pulse Resp B/P Pulse Ox O2 Delivery O2 Flow Rate FiO2 11/17/16 11:05 98 11/17/16 10:05 16 11/17/16 08:00 98.6 132/64 96 11/13/16 08:20 Nasal Cannula 2.0 Intake and Output 11/16/16 11/16/16 11/17/16 15:00 23:00 07:00 Intake Total 1210 ml 680 ml Output Total 700 ml Balance 1210 ml -20 ml Exam General: Morbidly obese 61 year-old female lying in bed in no apparent distress. HEENT: Normocephalic, atraumatic. Eyes: Anicteric sclerae, conjunctivae clear. ENT: Nasal septum midline, oral mucosa moist. Neck supple, no JVD noticed. Respiratory: Bilaterally clear breath sounds. No use of accessory muscles of respiration. No adventitious breath sounds. Cardiovascular: S1, S2 heard. No murmurs or gallops. Abdomen: Soft, nontender, and nondistended. Bowel sounds positive in all 4 quadrants. Genitourinary: Deferred. Extremities: No cyanosis, no clubbing. Peripheral pulses palpable. Bilateral lower extremity 2+ pitting edema. Left lateral thigh area wound VAC in place. Neurologic: Cranial nerves II through XII grossly intact. The patient is awake, alert, and oriented. Results Result Diagram: 11/17/16 0510 11/17/16 0510 Results 24 hrs Laboratory Tests Test 11/16/16 11:54 11/16/16 17:47 11/16/16 20:44 11/16/16 23:45 Bedside Glucose 139 154 144 Urine Color JUAN DAVID Urine Clarity TURBID A Urine pH 5.0 Urine Specific [place] 1.012 Urine Ketones NEGATIVE Urine Nitrite NEGATIVE Urine Bilirubin NEGATIVE Urine Urobilinogen NEGATIVE Urine Leukocyte Esterase 2+ H Urine Microscopic RBC 180 H Urine Microscopic WBC > 182 H Urine Squamous Epithelial Cells FEW Urine Bacteria MODERATE Urine Hemoglobin 2+ H Urine Glucose NEGATIVE Urine Total Protein 2+ H Test 11/17/16 05:10 11/17/16 07:48 White Blood Count 14.2 #H Red Blood Count 3.27 L Hemoglobin 9.4 L Hematocrit 31.0 L Mean Corpuscular Volume 94.8 Mean Corpuscular Hemoglobin 28.7 L Mean Corpuscular Hemoglobin Concent 30.3 L Red Cell Distribution Width 18.5 H Platelet Count 446 H Mean Platelet Volume 8.8 Neutrophils % 74.4 Lymphocytes % 7.8 L Monocytes % 13.5 H Eosinophils % 2.5 Basophils % 0.5 Nucleated Red Blood Cells % 0.1 H Neutrophils # 10.6 H Lymphocytes # 1.1 Monocytes # 1.9 H Eosinophils # 0.4 Basophils # 0.1 Nucleated Red Blood Cells # 0.0 Sodium Level 133 L Potassium Level 4.5 Chloride Level 89 L Carbon Dioxide Level 25 Anion Gap 24 H Blood Urea Nitrogen 43 H Creatinine 4.89 H Glucose Level 132 Calcium Level 9.2 Phosphorus Level 4.8 Magnesium Level 2.4 Bedside Glucose 137 Medications Medications Current Medications Amlodipine Besylate (Norvasc) 5 mg DAILY PO Last administered on 11/16/16 08:56 ; Admin Dose 5 MG; Start 11/11/16 at 09:30 Apixaban (Eliquis) 5 mg BID PO Last administered on 11/17/16 09:00; Admin Dose 5 MG; Start 11/11/16 at 09:30 Aspirin (Aspirin) 81 mg DAILY PO Last administered on 11/17/16 08:59; Admin Dose 81 MG; Start 11/11/16 at 09:30 Atorvastatin Calcium (Lipitor) 40 mg QHS PO Last administered on 11/16/16 20:51 ; Admin Dose 40 MG; Start 11/11/16 at 21:00 Benzonatate (Tessalon) 100 mg Q6 PO Last administered on 11/17/16 05:38; Admin Dose 100 MG; Start 11/11/16 at 12:00 Carisoprodol (Soma) 350 mg Q8 PRN PO MUSCLE SPASMS Last administered on 06:27; Admin Dose 350 MG; Start 11/11/16 at 12:00 Cinacalcet (Sensipar) 30 mg DAILY PO Last administered on 11/17/16 09:01; Admin Dose 30 MG; Start 11/11/16 at 11:00 Diltiazem HCl (Cardizem Sr) 60 mg Q12 PO Last administered on 11/16/16 20:50; Admin Dose 60 MG; Start 11/11/16 at 21:00 Furosemide (Lasix) 80 mg DAILY PO Last administered on 11/17/16 09:00; Admin Dose 80 MG; Start 11/11/16 at 09:30 Losartan Potassium (Cozaar) 50 mg BID PO Last administered on 11/16/16 20:51; Admin Dose 50 MG; Start 11/11/16 at 09:30 Metoprolol Succinate (Toprol Xl) 50 mg BID PO Last administered on 11/16/16 20: 51; Admin Dose 50 MG; Start 11/11/16 at 09:30 Montelukast Sodium (Singulair) 10 mg QAM PO Last administered on 11/17/16 09:00 ; Admin Dose 10 MG; Start 11/11/16 at 11:00 Oxycodone/ Acetaminophen (Endocet (10/ 325)) 1 tab Q6 PRN PO PRN Last administered on 11/17/16 04:14; Admin Dose 1 TAB; Start 11/11/16 at 12:00 Pyridoxine HCl (Vitamin B6) 50 mg DAILY PO Last administered on 11/17/16 09:00 ; Admin Dose 50 MG; Start 11/11/16 at 09:30 Tiotropium [place] (Spiriva) 1 inh DAILY INH Last administered on 11/17/16 08: 59; Admin Dose 1 INH; Start 11/11/16 at 11:00 Zolpidem Tartrate (Ambien) 5 mg QHS PRN PO INSOMNIA Last administered on 21:29; Admin Dose 5 MG; Start 11/11/16 at 09:30 Ondansetron HCl (Zofran Tab) 4 mg Q6H PRN PO NAUSEA AND/OR VOMITING Last administered on 11/16/16 20:49; Admin Dose 4 MG; Start 11/11/16 at 10:00 Salmeterol Xinafoate/ Fluticasone (Advair 250/50 Diskus) 1 inh BID INH Last administered on 11/17/16 08:59; Admin Dose 1 INH; Start 11/11/16 at 11:00 Vancomycin HCl (Vanco Iv Per Pharmacy) PER PHARMACY DOSING NOTE XX ; Start 11/11 at 10:30 Albuterol (Ventolin Hfa) 2 puff Q4H PRN INH AOB; Start 11/11/16 at 10:30 Epoetin Hang (Epogen (Esrd)) 10,000 units TuThSa@17 SC Last administered on 11/16 17:45; Admin Dose 10,000 UNITS; Start 11/11/16 at 17:00 Pantoprazole (Protonix Tab) 40 mg BID@06,18 PO Last administered on 11/17/16 05 :39; Admin Dose 40 MG; Start 11/12/16 at 18:00 Collagenase (Santyl) 1 applic DAILY TOP Last administered on 11/17/16 09:02; Admin Dose 1 APPLIC; Start 11/13/16 at 09:00 Diagnostic Test (Pha) (Accu-Chek) 1 ea 02 XX ; Start 11/14/16 at 02:00 Insulin Detemir (Levemir) 35 unit QHS@20 SC Last administered on 11/16/16 20:49 ; Admin Dose 35 UNIT; Start 11/14/16 at 20:00 Nicotine (Nicoderm 21 Mg/ 24hr) 1 patch DAILY TRANSDERM Last administered on 08:59; Admin Dose 1 PATCH; Start 11/14/16 at 20:00 Lorazepam (Ativan) 1 mg Q4 PRN IV ANXIETY Last administered on 11/16/16 23:38; Admin Dose 1 MG; Start 11/15/16 at 17:00 Docusate Sodium 100 mg 100 mg Q12H PO Last administered on 11/17/16 09:10; Admin Dose 100 MG; Start 11/16/16 at 22:00 Vancomycin HCl (Vancocin) 250 ml @ 125 mls/hr Q96H IVPB Last administered on 17:46; Admin Dose 125 MLS/HR; Start 11/16/16 at 17:00 Miscellaneous Information 1 ea NOTE XX ; Start 11/17/16 at 11:30 Glucose (Glutose) 15 gm Q15M PRN PO DECREASED GLUCOSE; Start 11/17/16 at 11:30 Glucose (Glutose) 22.5 gm Q15M PRN PO DECREASED GLUCOSE; Start 11/17/16 at 11:30 Dextrose (D50w Syringe) 25 ml Q15M PRN IV DECREASED GLUCOSE; Start 11/17/16 at 11:30 Dextrose (D50w Syringe) 50 ml Q15M PRN IV DECREASED GLUCOSE; Start 11/17/16 at 11:30 Glucagon (Glucagen) 1 mg Q15M PRN IM DECREASED GLUCOSE; Start 11/17/16 at 11:30 Glucose (Glutose) 15 gm Q15M PRN BUCCAL DECREASED GLUCOSE; Start 11/17/16 at 11: 30 LISA SPAIN NP Nov 17, 2016 11:27
[2016-11-17] MEDS ORDERED: DEXTROSE 50% 50 ML SYRINGE IV PRN ×2 (11:30)
[2016-11-17] MEDS ORDERED: GLUCOSE GEL 15 GRAM TUBE BUCCAL PRN (11:30)
[2016-11-17] MEDS ORDERED: GLUCAGON 1 MG INJ IM PRN (11:30)
[2016-11-17] MEDS ORDERED: GLUCOSE GEL 15 GRAM TUBE PO PRN ×2 (11:30)
[2016-11-17] MEDS ORDERED: BISACODYL (EC) 5 MG TAB PO PRN (11:30)
[2016-11-17] MEDS ORDERED: MAGNESIUM CITRATE 300 ML BTL PO ONE (12:30)
[2016-11-17] MEDS: POLYETHYLENE GLYCOL 17 GM PACKET PO SCH ×2 (12:35→21:17)
[2016-11-17] MEDS: LORAZEPAM 2 MG INJ IV PRN ×2 (13:21→19:04)
--- NOTE | 2016-11-17 14:25 | CONS ---
Date/Time of Note Date/Time of Note DATE: 11/17/16 TIME: 14:22 Assessment/Plan Assessment/Plan Chief Complaint/Hosp Course Patient is awake, in hemodialysis, looks comfortable Temperature 98.6 pulse 95 respirations 16 blood pressure 132/64 saturation 96% on room air WBC 14.2 H&H 9.4 and 31 platelets 446 Indwelling's: Left upper extremity AV fistula Antimicrobials: Vancomycin Physical examination: Morbidly obese well-developed elderly woman who is in hemodialysis and in no distress. Head atraumatic, normocephalic. Sclerae nonicteric. Neck is obese. Chest rise symmetrical, breath sounds diminished basis. Heart S1-S2. Abdomen obese soft bowel tones present. Extremities with bilateral edema, patient has multiple lesions on her lower extremities erythema resolving, she has a left upper thigh wound VAC. ASSESSMENT: 1. Bilateral lower extremities chronic venous stasis with chronic cellulitis and left hip wound, s/p debridement and wound vac application 10/19/16. 2. End-stage renal disease, on hemodialysis. 3. Left upper extremity arteriovenous fistula. 4. Obesity. 5. Atrial fibrillation. 6. Leukocytosis Plan: Check chest x-ray, add gentamicin, continue vancomycin for couple more weeks, continue anti-aspiration measures and local wound care as per surgical team. Problems: Consultation Date/Type/Reason Admit Date/Time Nov 11, 2016 at 06:40 Initial Consult Date 11/12/16 Type of Consultation: ID Exam/Review of Systems Vital Signs Vitals Vital Signs Date Time Temp Pulse Resp B/P Pulse Ox O2 Delivery O2 Flow Rate FiO2 11/17/16 13:07 120 14 11/17/16 08:00 98.6 132/64 96 11/13/16 08:20 Nasal Cannula 2.0 Intake and Output 11/16/16 11/16/16 11/17/16 15:00 23:00 07:00 Intake Total 1210 ml 680 ml Output Total 700 ml Balance 1210 ml -20 ml Results Result Diagram: 11/17/16 0510 11/17/16 0510 Results 24 hrs Laboratory Tests Test 11/16/16 17:47 11/16/16 20:44 11/16/16 23:45 11/17/16 05:10 Bedside Glucose 154 144 Urine Color JUAN DAVID Urine Clarity TURBID A Urine pH 5.0 Urine Specific [place] 1.012 Urine Ketones NEGATIVE Urine Nitrite NEGATIVE Urine Bilirubin NEGATIVE Urine Urobilinogen NEGATIVE Urine Leukocyte Esterase 2+ H Urine Microscopic RBC 180 H Urine Microscopic WBC > 182 H Urine Squamous Epithelial Cells FEW Urine Bacteria MODERATE Urine Hemoglobin 2+ H Urine Glucose NEGATIVE Urine Total Protein 2+ H White Blood Count 14.2 #H Red Blood Count 3.27 L Hemoglobin 9.4 L Hematocrit 31.0 L Mean Corpuscular Volume 94.8 Mean Corpuscular Hemoglobin 28.7 L Mean Corpuscular Hemoglobin Concent 30.3 L Red Cell Distribution Width 18.5 H Platelet Count 446 H Mean Platelet Volume 8.8 Neutrophils % 74.4 Lymphocytes % 7.8 L Monocytes % 13.5 H Eosinophils % 2.5 Basophils % 0.5 Nucleated Red Blood Cells % 0.1 H Neutrophils # 10.6 H Lymphocytes # 1.1 Monocytes # 1.9 H Eosinophils # 0.4 Basophils # 0.1 Nucleated Red Blood Cells # 0.0 Sodium Level 133 L Potassium Level 4.5 Chloride Level 89 L Carbon Dioxide Level 25 Anion Gap 24 H Blood Urea Nitrogen 43 H Creatinine 4.89 H Glucose Level 132 Calcium Level 9.2 Phosphorus Level 4.8 Magnesium Level 2.4 Test 11/17/16 07:48 11/17/16 11:52 Bedside Glucose 137 178 Medications Medications Current Medications Amlodipine Besylate (Norvasc) 5 mg DAILY PO Last administered on 11/16/16 08:56 ; Admin Dose 5 MG; Start 11/11/16 at 09:30 Apixaban (Eliquis) 5 mg BID PO Last administered on 11/17/16 09:00; Admin Dose 5 MG; Start 11/11/16 at 09:30 Aspirin (Aspirin) 81 mg DAILY PO Last administered on 11/17/16 08:59; Admin Dose 81 MG; Start 11/11/16 at 09:30 Atorvastatin Calcium (Lipitor) 40 mg QHS PO Last administered on 11/16/16 20:51 ; Admin Dose 40 MG; Start 11/11/16 at 21:00 Benzonatate (Tessalon) 100 mg Q6 PO Last administered on 11/17/16 11:25; Admin Dose 100 MG; Start 11/11/16 at 12:00 Carisoprodol (Soma) 350 mg Q8 PRN PO MUSCLE SPASMS Last administered on 06:27; Admin Dose 350 MG; Start 11/11/16 at 12:00 Cinacalcet (Sensipar) 30 mg DAILY PO Last administered on 11/17/16 09:01; Admin Dose 30 MG; Start 11/11/16 at 11:00 Diltiazem HCl (Cardizem Sr) 60 mg Q12 PO Last administered on 11/16/16 20:50; Admin Dose 60 MG; Start 11/11/16 at 21:00 Furosemide (Lasix) 80 mg DAILY PO Last administered on 11/17/16 09:00; Admin Dose 80 MG; Start 11/11/16 at 09:30 Losartan Potassium (Cozaar) 50 mg BID PO Last administered on 11/16/16 20:51; Admin Dose 50 MG; Start 11/11/16 at 09:30 Metoprolol Succinate (Toprol Xl) 50 mg BID PO Last administered on 11/16/16 20: 51; Admin Dose 50 MG; Start 11/11/16 at 09:30 Montelukast Sodium (Singulair) 10 mg QAM PO Last administered on 11/17/16 09:00 ; Admin Dose 10 MG; Start 11/11/16 at 11:00 Oxycodone/ Acetaminophen (Endocet (10/ 325)) 1 tab Q6 PRN PO PRN Last administered on 11/17/16 13:35; Admin Dose 1 TAB; Start 11/11/16 at 12:00 Pyridoxine HCl (Vitamin B6) 50 mg DAILY PO Last administered on 11/17/16 09:00 ; Admin Dose 50 MG; Start 11/11/16 at 09:30 Tiotropium [place] (Spiriva) 1 inh DAILY INH Last administered on 11/17/16 08: 59; Admin Dose 1 INH; Start 11/11/16 at 11:00 Zolpidem Tartrate (Ambien) 5 mg QHS PRN PO INSOMNIA Last administered on 21:29; Admin Dose 5 MG; Start 11/11/16 at 09:30 Ondansetron HCl (Zofran Tab) 4 mg Q6H PRN PO NAUSEA AND/OR VOMITING Last administered on 11/16/16 20:49; Admin Dose 4 MG; Start 11/11/16 at 10:00 Salmeterol Xinafoate/ Fluticasone (Advair 250/50 Diskus) 1 inh BID INH Last administered on 11/17/16 08:59; Admin Dose 1 INH; Start 11/11/16 at 11:00 Vancomycin HCl (Vanco Iv Per Pharmacy) PER PHARMACY DOSING NOTE XX ; Start 11/11 at 10:30 Albuterol (Ventolin Hfa) 2 puff Q4H PRN INH AOB; Start 11/11/16 at 10:30 Epoetin Hang (Epogen (Esrd)) 10,000 units TuThSa@17 SC Last administered on 11/16 17:45; Admin Dose 10,000 UNITS; Start 11/11/16 at 17:00 Pantoprazole (Protonix Tab) 40 mg BID@06,18 PO Last administered on 11/17/16 05 :39; Admin Dose 40 MG; Start 11/12/16 at 18:00 Collagenase (Santyl) 1 applic DAILY TOP Last administered on 11/17/16 09:02; Admin Dose 1 APPLIC; Start 11/13/16 at 09:00 Diagnostic Test (Pha) (Accu-Chek) 1 ea 02 XX ; Start 11/14/16 at 02:00 Insulin Detemir (Levemir) 35 unit QHS@20 SC Last administered on 11/16/16 20:49 ; Admin Dose 35 UNIT; Start 11/14/16 at 20:00 Nicotine (Nicoderm 21 Mg/ 24hr) 1 patch DAILY TRANSDERM Last administered on 08:59; Admin Dose 1 PATCH; Start 11/14/16 at 20:00 Lorazepam (Ativan) 1 mg Q4 PRN IV ANXIETY Last administered on 11/17/16 13:21; Admin Dose 1 MG; Start 11/15/16 at 17:00 Docusate Sodium 100 mg 100 mg Q12H PO Last administered on 11/17/16 09:10; Admin Dose 100 MG; Start 11/16/16 at 22:00 Vancomycin HCl (Vancocin) 250 ml @ 125 mls/hr Q96H IVPB Last administered on 17:46; Admin Dose 125 MLS/HR; Start 11/16/16 at 17:00 Miscellaneous Information 1 ea NOTE XX ; Start 11/17/16 at 11:30 Glucose (Glutose) 15 gm Q15M PRN PO DECREASED GLUCOSE; Start 11/17/16 at 11:30 Glucose (Glutose) 22.5 gm Q15M PRN PO DECREASED GLUCOSE; Start 11/17/16 at 11:30 Dextrose (D50w Syringe) 25 ml Q15M PRN IV DECREASED GLUCOSE; Start 11/17/16 at 11:30 Dextrose (D50w Syringe) 50 ml Q15M PRN IV DECREASED GLUCOSE; Start 11/17/16 at 11:30 Glucagon (Glucagen) 1 mg Q15M PRN IM DECREASED GLUCOSE; Start 11/17/16 at 11:30 Glucose (Glutose) 15 gm Q15M PRN BUCCAL DECREASED GLUCOSE; Start 11/17/16 at 11: 30 Polyethylene Glycol (Miralax) 17 gm BID PO Last administered on 11/17/16t 12:35 ; Admin Dose 17 GM; Start 11/17/16 at 12:00 Bisacodyl (Dulcolax) 10 mg DAILY PRN PO CONSTIPATION; Start 11/17/16 at 11:30 TODD RAMIRES NP Nov 17, 2016 14:24
[2016-11-17] MEDS ORDERED: GENTAMICIN IV PER PHARMACY XX SCH (14:30)
[2016-11-17] MEDS ORDERED: GENTAMICIN 160 MG in SOD CHLORIDE 0.9% 100 ML IVPB SCH (16:30)
[2016-11-17] MEDS: ATORVASTATIN 40 MG TAB PO SCH (21:17)
[2016-11-17] MEDS: INSULIN DETEMIR [LEVEMIR] 3ML CART SC SCH (21:21)
[2016-11-17] MEDS: ZOLPIDEM 5 MG TAB PO PRN (22:27)
[2016-11-17] MEDS ORDERED: SOD CHLORIDE 0.9% 500 ML IV ONE (22:30)
[2016-11-17] MEDS ORDERED: SOD CHLORIDE 0.9% 1,000 ML IV SCH (22:30)
[2016-11-17 22:54] LABS: CREATINE KINASE 27 IU/L (23-200)
[2016-11-17 23:02] LABS: MAGNESIUM 2.5 mg/dl (1.7-2.5); PHOSPHORUS 3.8 mg/dl (2.5-4.9)
[2016-11-17 23:07] LABS: CK-MB 1.89 ng/ml (0.0-2.4)
[2016-11-17 23:22] LABS: TROPONIN-I < 0.012 ng/ml (0.00-0.12)
[2016-11-18] VITALS (20 sets, daily range): BP systolic 80–151; BP diastolic 47–90; PULSE 75–129; RESP 17–22
[2016-11-18] MEDS: BENZONATATE 100 MG CAP PO SCH ×4 (00:57→17:30)
[2016-11-18] MEDS: OXYCODONE/ACETAMINOPHEN (10/325) TAB PO PRN ×2 (01:18→14:24)
[2016-11-18] MEDS: LORAZEPAM 2 MG INJ IV PRN ×2 (01:19→09:44)
[2016-11-18] MEDS: ACCU-CHEK XX SCH (01:42)
--- NOTE | 2016-11-18 04:14 | RADRPT ---
PROCEDURE: XR Chest. CLINICAL INDICATION: Rule out pneumonia TECHNIQUE: Single frontal view of the chest was obtained COMPARISON: None FINDINGS: There is enlargement of the cardiac silhouette. Calcification in the aortic arch. There is minimal prominence of the lung interstitium likely minimal chronic changes. Patchy increased densities are seen at both lung bases consistent with atelectasis/infiltrates. There are likely very small pleura l effusions as well. IMPRESSION: Enlargement of the cardiac silhouette. Patchy increased densities are seen at both lung bases consis tent with atelectasis/infiltrates. There are likely very small pleural effusions as well. RPTAT: HJES .Ricci Melgoza MD, MD Date Time Electronically viewed and signed by .Ricci Melgoza MD, MD on 11/18/2016 04:13 .S/
[2016-11-18] MEDS: PANTOPRAZOLE (EC) 40 MG TAB PO SCH ×2 (05:17→17:30)
[2016-11-18] MEDS ORDERED: GENTAMICIN 100 MG/50 ML NS IVPB SCH (08:00)
[2016-11-18 08:11] LABS: ADD SCAN DIFF NO
[2016-11-18] MEDS: INSULIN ASPART [NOVOLOG] 3 ML PEN SC SCH ×4 (08:14→21:00)
[2016-11-18] MEDS: CALCIUM ACETATE 667 MG CAP PO SCH ×3 (08:15→17:30)
[2016-11-18] MEDS: METOCLOPRAMIDE 5 MG TAB PO SCH ×3 (08:16→17:30)
[2016-11-18 08:21] LABS: ABNORMAL IP MESSAGE 1; BASOPHIL # 0.1 10^3/ul (0.0-0.1); BASOPHILS % 0.6 % (0.0-2.0); EOSINOPHILS # 0.4 10^3/ul (0.0-0.5); EOSINOPHILS % 2.7 % (0.0-7.0); HEMOGLOBIN 9.4 g/dl (12.0-16.0); LYMPHOCYTES # 1.3 10^3/ul (0.8-2.9); LYMPHOCYTES % 9.2 % (15.0-51.0); MEAN CORPUSCULAR HGB CONC 30.3 g/dl (32.0-37.0); MEAN CORPUSCULAR VOLUME 95.7 fl (82.0-101.0); MEAN PLATELET VOLUME 9.2 fl (7.4-10.4); MONOCYTE # 2.2 10^3/ul (0.3-0.9); MONOCYTES % 16.1 % (0.0-11.0); NEUTROPHIL # 9.4 10^3/ul (1.6-7.5); NEUTROPHILS % 69.5 % (39.0-77.0); PLATELET COUNT 450 10^3/UL (140-415); RED BLOOD COUNT 3.24 10^6/ul (4.20-5.40); RED CELL DISTRIBUTION WIDTH 18.9 % (11.5-14.5); WHITE BLOOD COUNT 13.6 10^3/ul (4.8-10.8)
[2016-11-18 08:56] LABS: CK-MB 2.14 ng/ml (0.0-2.4); TROPONIN-I 0.014 ng/ml (0.00-0.12)
[2016-11-18 09:10] LABS: CALCIUM 9.1 mg/dl (8.4-10.2); CREATININE 3.83 mg/dl (0.44-1.00); POTASSIUM 4.5 mmol/L (3.5-5.1)
[2016-11-18 09:13] LABS: MAGNESIUM 2.8 mg/dl (1.7-2.5)
[2016-11-18] MEDS: NICOTINE (21 MG/24 HR) PATCH TRANSDERM SCH (09:13)
[2016-11-18] MEDS: POLYETHYLENE GLYCOL 17 GM PACKET PO SCH ×2 (09:13→21:00)
[2016-11-18] MEDS: TIOTROPIUM 18 MCG CAPSULE INHA DEV INH SCH (09:14)
[2016-11-18] MEDS: SALMETEROL/FLUTICASONE 250/50 INHA INH SCH ×2 (09:14→21:55)
[2016-11-18] MEDS: CINACALCET 30 MG TAB PO SCH (09:14)
[2016-11-18] MEDS: PYRIDOXINE 50 MG TAB PO SCH (09:14)
[2016-11-18] MEDS: ASPIRIN 81 MG TAB PO SCH (09:14)
[2016-11-18] MEDS: APIXABAN 5 MG TABLET PO SCH ×2 (09:14→21:54)
[2016-11-18] MEDS: MONTELUKAST 10 MG TAB PO SCH (09:14)
[2016-11-18] MEDS: DOCUSATE SODIUM 100 MG CAP PO SCH ×2 (09:14→21:53)
[2016-11-18] MEDS: METOPROLOL (XL) 50 MG TAB PO SCH ×2 (09:15→21:54)
[2016-11-18] MEDS: FUROSEMIDE 40 MG TAB PO SCH (09:15)
[2016-11-18] MEDS: DILTIAZEM (SR) 60 MG CAP PO SCH ×2 (09:16→21:55)
[2016-11-18] MEDS: LOSARTAN 50 MG TAB PO SCH ×2 (09:16→21:54)
[2016-11-18] MEDS: AMLODIPINE 5 MG TAB PO SCH (09:17)
--- NOTE | 2016-11-18 11:11 | RADRPT ---
Vent Rate: 124 bpm RR Interval: 0 msec [place] Interval: 182 msec QRS Duration: 96 msec QT Interval: 290 msec QTC Interval: 416 msec P-R-T [place]: 0 - 115 - 0 degrees Sinus tachycardia Left posterior fascicular block Marked ST abnormality, possible inferior subendocardial injury Abnormal ECG Electronically Signed By: Ck Garvin [id number]
[2016-11-18] MEDS: COLLAGENASE 30 GM TUBE TOP SCH (14:28)
[2016-11-18] MEDS: EPOETIN 10000 UNITS/1 ML INJ (ESRD) SC SCH (17:31)
--- NOTE | 2016-11-18 18:49 | PN ---
Date/Time of Note Date/Time of Note DATE: 11/18/16 TIME: 18:46 Assessment/Plan VTE Prophylaxis VTE Prophylaxis Intervention: other Lines/Catheters IV C[facility]ter Type (from [facility]): [facility] Urinary Cath still in place: No Assessment/Plan Chief Complaint/Hosp Course 1. Left lower extremity chronic wound. The patient has a wound VAC in place. Being followed by vascular surgery. 2. Type 2 diabetes mellitus. Continue sliding scale insulin. 3. Acute encephalopathy secondary to delirium DC anxiolytics and pain medication Monitor 4. Essential hypertension. Continue antihypertensives. 5. COPD. No evidence of exacerbation. Continue inhaled bronchodilators. 6. Pulmonary hypertension. PA systolic pressure of 56 mmHg. 7. End-stage renal disease on hemodialysis. Continue hemodialysis as per nephrology. 8. Normocytic, normochromic anemia. Most probably anemia of chronic kidney disease. Being followed by gastroenterology. 9. Obesity. BMI of 44.0 kg/m. Weight reduction advised. 10. Dyslipidemia. Continue statins. 11. DVT prophylaxis. On factor Xa inhibitors. 12. Gastrointestinal prophylaxis. Proton pump inhibitors. 13. Plan. Continue current management. Await placement to a SNF. Problems: Subjective 24 Hr Interval Summary Constitutional: disoriented Exam/Review of Systems Vital Signs Vitals Vital Signs Date Time Temp Pulse Resp B/P Pulse Ox O2 Delivery O2 Flow Rate FiO2 11/18/16 16:53 98.0 125 18 112/58 98 11/18/16 08:20 Nasal Cannula 2.0 Intake and Output 11/17/16 11/17/16 11/18/16 15:00 23:00 07:00 Intake Total 400 ml 424 ml 250 ml Output Total 2400 ml Balance -2000 ml 424 ml 250 ml Exam Psych: confusion Respiratory: clear to auscultation Cardiovascular: regular rate and rhythm Gastrointestinal: soft, No distended Musculoskeletal: No nl extremities to inspection Results Result Diagram: 11/18/16 0650 11/18/16 0650 Results 24 hrs Laboratory Tests Test 11/17/16 21:12 11/17/16 22:15 11/18/16 01:22 11/18/16 06:50 Bedside Glucose 183 178 Phosphorus Level 3.8 4.0 Magnesium Level 2.5 2.8 H Creatine Kinase 27 22 L Creatine Kinase Index 7.0 9.7 Creatinine Kinase MB (Mass) 1.89 2.14 Troponin I < 0.012 0.014 White Blood Count 13.6 H Red Blood Count 3.24 L Hemoglobin 9.4 L Hematocrit 31.0 L Mean Corpuscular Volume 95.7 Mean Corpuscular Hemoglobin 29.0 Mean Corpuscular Hemoglobin Concent 30.3 L Red Cell Distribution Width 18.9 H Platelet Count 450 H Mean Platelet Volume 9.2 Neutrophils % 69.5 Lymphocytes % 9.2 L Monocytes % 16.1 H Eosinophils % 2.7 Basophils % 0.6 Nucleated Red Blood Cells % 0.0 Neutrophils # 9.4 H Lymphocytes # 1.3 Monocytes # 2.2 H Eosinophils # 0.4 Basophils # 0.1 Nucleated Red Blood Cells # 0.0 Sodium Level 136 Potassium Level 4.5 Chloride Level 90 L Carbon Dioxide Level 28 Anion Gap 23 H Blood Urea Nitrogen 35 H Creatinine 3.83 #H Glucose Level 145 Calcium Level 9.1 Test 11/18/16 08:10 11/18/16 11:48 11/18/16 17:29 Bedside Glucose 148 139 157 Medications Medications Current Medications Amlodipine Besylate (Norvasc) 5 mg DAILY PO Last administered on 11/18/16 09:17 ; Admin Dose 5 MG; Start 11/11/16 at 09:30 Apixaban (Eliquis) 5 mg BID PO Last administered on 11/18/16 09:14; Admin Dose 5 MG; Start 11/11/16 at 09:30 Aspirin (Aspirin) 81 mg DAILY PO Last administered on 11/18/16 09:14; Admin Dose 81 MG; Start 11/11/16 at 09:30 Atorvastatin Calcium (Lipitor) 40 mg QHS PO Last administered on 11/17/16 21:17 ; Admin Dose 40 MG; Start 11/11/16 at 21:00 Benzonatate (Tessalon) 100 mg Q6 PO Last administered on 11/18/16 17:30; Admin Dose 100 MG; Start 11/11/16 at 12:00 Carisoprodol (Soma) 350 mg Q8 PRN PO MUSCLE SPASMS Last administered on 22:27; Admin Dose 350 MG; Start 11/11/16 at 12:00 Cinacalcet (Sensipar) 30 mg DAILY PO Last administered on 11/18/16 09:14; Admin Dose 30 MG; Start 11/11/16 at 11:00 Diltiazem HCl (Cardizem Sr) 60 mg Q12 PO Last administered on 11/18/16 09:16; Admin Dose 60 MG; Start 11/11/16 at 21:00 Furosemide (Lasix) 80 mg DAILY PO Last administered on 11/18/16 09:15; Admin Dose 80 MG; Start 11/11/16 at 09:30 Losartan Potassium (Cozaar) 50 mg BID PO Last administered on 11/18/16 09:16; Admin Dose 50 MG; Start 11/11/16 at 09:30 Metoprolol Succinate (Toprol Xl) 50 mg BID PO Last administered on 11/18/16 09: 15; Admin Dose 50 MG; Start 11/11/16 at 09:30 Montelukast Sodium (Singulair) 10 mg QAM PO Last administered on 11/18/16 09:14 ; Admin Dose 10 MG; Start 11/11/16 at 11:00 Oxycodone/ Acetaminophen (Endocet (10 325)) 1 tab Q6 PRN PO PRN Last administered on 11/18/16 14:24; Admin Dose 1 TAB; Start 11/11/16 at 12:00 Pyridoxine HCl (Vitamin B6) 50 mg DAILY PO Last administered on 11/18/16 09:14 ; Admin Dose 50 MG; Start 11/11/16 at 09:30 Tiotropium [place] (Spiriva) 1 inh DAILY INH Last administered on 11/18/16 09: 14; Admin Dose 1 INH; Start 11/11/16 at 11:00 Ondansetron HCl (Zofran Tab) 4 mg Q6H PRN PO NAUSEA AND/OR VOMITING Last administered on 11/16/16 20:49; Admin Dose 4 MG; Start 11/11/16 at 10:00 Salmeterol Xinafoate/ Fluticasone (Advair 250/50 Diskus) 1 inh BID INH Last administered on 11/18/16 09:14; Admin Dose 1 INH; Start 11/11/16 at 11:00 Vancomycin HCl (Vanco Iv Per Pharmacy) PER PHARMACY DOSING NOTE XX ; Start 11/11 at 10:30 Albuterol (Ventolin Hfa) 2 puff Q4H PRN INH AOB; Start 11/11/16 at 10:30 Epoetin Hang (Epogen (Esrd)) 10,000 units TuThSa@17 SC Last administered on 11/18 17:31; Admin Dose 10,000 UNITS; Start 11/11/16 at 17:00 Pantoprazole (Protonix Tab) 40 mg BID@06,18 PO Last administered on 11/18/16 17 :30; Admin Dose 40 MG; Start 11/12/16 at 18:00 Collagenase (Santyl) 1 applic DAILY TOP Last administered on 11/18/16 14:28; Admin Dose 1 APPLIC; Start 11/13/16 at 09:00 Diagnostic Test (Pha) (Accu-Chek) 1 ea 02 XX Last administered on 11/18/16 01: 42; Admin Dose 1 EA; Start 11/14/16 at 02:00 Insulin Detemir (Levemir) 35 unit QHS@20 SC Last administered on 11/17/16 21:21 ; Admin Dose 35 UNIT; Start 11/14/16 at 20:00 Nicotine (Nicoderm 21 Mg/ 24hr) 1 patch DAILY TRANSDERM Last administered on 09:13; Admin Dose 1 PATCH; Start 11/14/16 at 20:00 Docusate Sodium 100 mg 100 mg Q12H PO Last administered on 11/18/16 09:14; Admin Dose 100 MG; Start 11/16/16 at 22:00 Vancomycin HCl (Vancocin) 250 ml @ 125 mls/hr Q96H IVPB Last administered on 17:46; Admin Dose 125 MLS/HR; Start 11/16/16 at 17:00 Miscellaneous Information 1 ea NOTE XX ; Start 11/17/16 at 11:30 Glucose (Glutose) 15 gm Q15M PRN PO DECREASED GLUCOSE; Start 11/17/16 at 11:30 Glucose (Glutose) 22.5 gm Q15M PRN PO DECREASED GLUCOSE; Start 11/17/16 at 11:30 Dextrose (D50w Syringe) 25 ml Q15M PRN IV DECREASED GLUCOSE; Start 11/17/16 at 11:30 Dextrose (D50w Syringe) 50 ml Q15M PRN IV DECREASED GLUCOSE; Start 11/17/16 at 11:30 Glucagon (Glucagen) 1 mg Q15M PRN IM DECREASED GLUCOSE; Start 11/17/16 at 11:30 Glucose (Glutose) 15 gm Q15M PRN BUCCAL DECREASED GLUCOSE; Start 11/17/16 at 11: 30 Polyethylene Glycol (Miralax) 17 gm BID PO Last administered on 11/18/16t 09:13 ; Admin Dose 17 GM; Start 11/17/16 at 12:00 Bisacodyl (Dulcolax) 10 mg DAILY PRN PO CONSTIPATION; Start 11/17/16 at 11:30 Gentamicin Sulfate (Gentamicin Iv Per Pharmacy) GENTAMICIN PER PHARMACY NOTE XX ; Start 11/17/16 at 14:30 MICHAEL COULTER Nov 18, 2016 18:49
--- NOTE | 2016-11-18 19:01 | CONS ---
Date/Time of Note Date/Time of Note DATE: 11/18/16 TIME: 18:59 Assessment/Plan Assessment/Plan Chief Complaint/Hosp Course Patient is awake, weak, looks comfortable Indwelling's: Left upper extremity AV fistula Antimicrobials: Vancomycin, Gentamicin Physical examination: Morbidly obese well-developed elderly woman who is in hemodialysis and in no distress. Head atraumatic, normocephalic. Sclerae nonicteric. Neck is obese. Chest rise symmetrical, breath sounds diminished basis. Heart S1-S2. Abdomen obese soft bowel tones present. Extremities with bilateral edema, patient has multiple lesions on her lower extremities erythema resolving, she has a left upper thigh wound VAC. ASSESSMENT: 1. Bilateral lower extremities chronic venous stasis with chronic cellulitis and left hip wound, s/p debridement and wound vac application 10/19/16. 2. End-stage renal disease, on hemodialysis. 3. Left upper extremity arteriovenous fistula. 4. Obesity. 5. Atrial fibrillation. 6. Leukocytosis ?PNA Plan: Clinically unchanged, continue abx, anti-aspiration measures, encourage incentive spirometry, local wound care as per surgical team. DW staff Problems: Consultation Date/Type/Reason Admit Date/Time Nov 11, 2016 at 06:40 Initial Consult Date 11/12/16 Type of Consultation: ID Exam/Review of Systems Vital Signs Vitals Vital Signs Date Time Temp Pulse Resp B/P Pulse Ox O2 Delivery O2 Flow Rate FiO2 11/18/16 16:53 98.0 125 18 112/58 98 11/18/16 08:20 Nasal Cannula 2.0 Intake and Output 11/17/16 11/17/16 11/18/16 15:00 23:00 07:00 Intake Total 400 ml 424 ml 250 ml Output Total 2400 ml Balance -2000 ml 424 ml 250 ml Results Result Diagram: 11/18/16 0650 11/18/16 0650 Results 24 hrs Laboratory Tests Test 11/17/16 21:12 11/17/16 22:15 11/18/16 01:22 11/18/16 06:50 Bedside Glucose 183 178 Phosphorus Level 3.8 4.0 Magnesium Level 2.5 2.8 H Creatine Kinase 27 22 L Creatine Kinase Index 7.0 9.7 Creatinine Kinase MB (Mass) 1.89 2.14 Troponin I < 0.012 0.014 White Blood Count 13.6 H Red Blood Count 3.24 L Hemoglobin 9.4 L Hematocrit 31.0 L Mean Corpuscular Volume 95.7 Mean Corpuscular Hemoglobin 29.0 Mean Corpuscular Hemoglobin Concent 30.3 L Red Cell Distribution Width 18.9 H Platelet Count 450 H Mean Platelet Volume 9.2 Neutrophils % 69.5 Lymphocytes % 9.2 L Monocytes % 16.1 H Eosinophils % 2.7 Basophils % 0.6 Nucleated Red Blood Cells % 0.0 Neutrophils # 9.4 H Lymphocytes # 1.3 Monocytes # 2.2 H Eosinophils # 0.4 Basophils # 0.1 Nucleated Red Blood Cells # 0.0 Sodium Level 136 Potassium Level 4.5 Chloride Level 90 L Carbon Dioxide Level 28 Anion Gap 23 H Blood Urea Nitrogen 35 H Creatinine 3.83 #H Glucose Level 145 Calcium Level 9.1 Test 11/18/16 08:10 11/18/16 11:48 11/18/16 17:29 Bedside Glucose 148 139 157 Medications Medications Current Medications Amlodipine Besylate (Norvasc) 5 mg DAILY PO Last administered on 11/18/16 09:17 ; Admin Dose 5 MG; Start 11/11/16 at 09:30 Apixaban (Eliquis) 5 mg BID PO Last administered on 11/18/16 09:14; Admin Dose 5 MG; Start 11/11/16 at 09:30 Aspirin (Aspirin) 81 mg DAILY PO Last administered on 11/18/16 09:14; Admin Dose 81 MG; Start 11/11/16 at 09:30 Atorvastatin Calcium (Lipitor) 40 mg QHS PO Last administered on 11/17/16 21:17 ; Admin Dose 40 MG; Start 11/11/16 at 21:00 Benzonatate (Tessalon) 100 mg Q6 PO Last administered on 11/18/16 17:30; Admin Dose 100 MG; Start 11/11/16 at 12:00 Carisoprodol (Soma) 350 mg Q8 PRN PO MUSCLE SPASMS Last administered on 22:27; Admin Dose 350 MG; Start 11/11/16 at 12:00 Cinacalcet (Sensipar) 30 mg DAILY PO Last administered on 11/18/16 09:14; Admin Dose 30 MG; Start 11/11/16 at 11:00 Diltiazem HCl (Cardizem Sr) 60 mg Q12 PO Last administered on 11/18/16 09:16; Admin Dose 60 MG; Start 11/11/16 at 21:00 Furosemide (Lasix) 80 mg DAILY PO Last administered on 11/18/16 09:15; Admin Dose 80 MG; Start 11/11/16 at 09:30 Losartan Potassium (Cozaar) 50 mg BID PO Last administered on 11/18/16 09:16; Admin Dose 50 MG; Start 11/11/16 at 09:30 Metoprolol Succinate (Toprol Xl) 50 mg BID PO Last administered on 11/18/16 09: 15; Admin Dose 50 MG; Start 11/11/16 at 09:30 Montelukast Sodium (Singulair) 10 mg QAM PO Last administered on 11/18/16 09:14 ; Admin Dose 10 MG; Start 11/11/16 at 11:00 Oxycodone/ Acetaminophen (Endocet (10/ 325)) 1 tab Q6 PRN PO PRN Last administered on 11/18/16 14:24; Admin Dose 1 TAB; Start 11/11/16 at 12:00 Pyridoxine HCl (Vitamin B6) 50 mg DAILY PO Last administered on 11/18/16 09:14 ; Admin Dose 50 MG; Start 11/11/16 at 09:30 Tiotropium [place] (Spiriva) 1 inh DAILY INH Last administered on 11/18/16 09: 14; Admin Dose 1 INH; Start 11/11/16 at 11:00 Ondansetron HCl (Zofran Tab) 4 mg Q6H PRN PO NAUSEA AND/OR VOMITING Last administered on 11/16/16 20:49; Admin Dose 4 MG; Start 11/11/16 at 10:00 Salmeterol Xinafoate/ Fluticasone (Advair 250/50 Diskus) 1 inh BID INH Last administered on 11/18/16 09:14; Admin Dose 1 INH; Start 11/11/16 at 11:00 Vancomycin HCl (Vanco Iv Per Pharmacy) PER PHARMACY DOSING NOTE XX ; Start 11/11 at 10:30 Albuterol (Ventolin Hfa) 2 puff Q4H PRN INH AOB; Start 11/11/16 at 10:30 Epoetin Hang (Epogen (Esrd)) 10,000 units TuThSa@17 SC Last administered on 11/18 17:31; Admin Dose 10,000 UNITS; Start 11/11/16 at 17:00 Pantoprazole (Protonix Tab) 40 mg BID@06,18 PO Last administered on 11/18/16 17 :30; Admin Dose 40 MG; Start 11/12/16 at 18:00 Collagenase (Santyl) 1 applic DAILY TOP Last administered on 11/18/16 14:28; Admin Dose 1 APPLIC; Start 11/13/16 at 09:00 Diagnostic Test (Pha) (Accu-Chek) 1 ea 02 XX Last administered on 11/18/16 01: 42; Admin Dose 1 EA; Start 11/14/16 at 02:00 Insulin Detemir (Levemir) 35 unit QHS@20 SC Last administered on 11/17/16 21:21 ; Admin Dose 35 UNIT; Start 11/14/16 at 20:00 Nicotine (Nicoderm 21 Mg/ 24hr) 1 patch DAILY TRANSDERM Last administered on 09:13; Admin Dose 1 PATCH; Start 11/14/16 at 20:00 Docusate Sodium 100 mg 100 mg Q12H PO Last administered on 11/18/16 09:14; Admin Dose 100 MG; Start 11/16/16 at 22:00 Vancomycin HCl (Vancocin) 250 ml @ 125 mls/hr Q96H IVPB Last administered on 17:46; Admin Dose 125 MLS/HR; Start 11/16/16 at 17:00 Miscellaneous Information 1 ea NOTE XX ; Start 11/17/16 at 11:30 Glucose (Glutose) 15 gm Q15M PRN PO DECREASED GLUCOSE; Start 11/17/16 at 11:30 Glucose (Glutose) 22.5 gm Q15M PRN PO DECREASED GLUCOSE; Start 11/17/16 at 11:30 Dextrose (D50w Syringe) 25 ml Q15M PRN IV DECREASED GLUCOSE; Start 11/17/16 at 11:30 Dextrose (D50w Syringe) 50 ml Q15M PRN IV DECREASED GLUCOSE; Start 11/17/16 at 11:30 Glucagon (Glucagen) 1 mg Q15M PRN IM DECREASED GLUCOSE; Start 11/17/16 at 11:30 Glucose (Glutose) 15 gm Q15M PRN BUCCAL DECREASED GLUCOSE; Start 11/17/16 at 11: 30 Polyethylene Glycol (Miralax) 17 gm BID PO Last administered on 11/18/16t 09:13 ; Admin Dose 17 GM; Start 11/17/16 at 12:00 Bisacodyl (Dulcolax) 10 mg DAILY PRN PO CONSTIPATION; Start 11/17/16 at 11:30 Gentamicin Sulfate (Gentamicin Iv Per Pharmacy) GENTAMICIN PER PHARMACY NOTE XX ; Start 11/17/16 at 14:30 TODD RAMIRES NP Nov 18, 2016 19:01
[2016-11-18] MEDS: ATORVASTATIN 40 MG TAB PO SCH (21:53)
[2016-11-18] MEDS: INSULIN DETEMIR [LEVEMIR] 3ML CART SC SCH (21:56)
[2016-11-19] VITALS (23 sets, daily range): BP systolic 95–154; BP diastolic 46–99; PULSE 89–126; RESP 18–20
[2016-11-19] MEDS: BENZONATATE 100 MG CAP PO SCH ×4 (00:18→17:29)
[2016-11-19] MEDS: ACCU-CHEK XX SCH (02:00)
[2016-11-19] MEDS: OXYCODONE/ACETAMINOPHEN (10/325) TAB PO PRN ×3 (05:05→21:29)
[2016-11-19] MEDS: PANTOPRAZOLE (EC) 40 MG TAB PO SCH ×2 (06:48→17:29)
[2016-11-19] MEDS: METOCLOPRAMIDE 5 MG TAB PO SCH ×3 (06:48→17:29)
[2016-11-19 06:58] LABS: ADD SCAN DIFF NO
[2016-11-19 07:12] LABS: ABNORMAL IP MESSAGE 1; BASOPHIL # 0.1 10^3/ul (0.0-0.1); BASOPHILS % 0.8 % (0.0-2.0); EOSINOPHILS # 0.4 10^3/ul (0.0-0.5); EOSINOPHILS % 2.9 % (0.0-7.0); HEMATOCRIT 28.2 % (37.0-47.0); HEMOGLOBIN 8.7 g/dl (12.0-16.0); LYMPHOCYTES # 1.3 10^3/ul (0.8-2.9); LYMPHOCYTES % 10.6 % (15.0-51.0); MEAN CORPUSCULAR HEMOGLOBIN 29.5 pg (29.0-33.0); MEAN CORPUSCULAR HGB CONC 30.9 g/dl (32.0-37.0); MEAN CORPUSCULAR VOLUME 95.6 fl (82.0-101.0); MEAN PLATELET VOLUME 9.1 fl (7.4-10.4); MONOCYTE # 1.9 10^3/ul (0.3-0.9); MONOCYTES % 15.9 % (0.0-11.0); NUCLEATED RED BLOOD CELLS% 0.3 /100WBC (0.0-0.0); PLATELET COUNT 456 10^3/UL (140-415); RED BLOOD COUNT 2.95 10^6/ul (4.20-5.40); RED CELL DISTRIBUTION WIDTH 18.7 % (11.5-14.5)
[2016-11-19 07:43] LABS: CALCIUM 9.2 mg/dl (8.4-10.2); CREATININE 4.4 mg/dl (0.44-1.00); POTASSIUM 4.3 mmol/L (3.5-5.1)
[2016-11-19] MEDS: POLYETHYLENE GLYCOL 17 GM PACKET PO SCH ×2 (08:05→21:29)
[2016-11-19] MEDS: MONTELUKAST 10 MG TAB PO SCH (08:05)
[2016-11-19] MEDS: SALMETEROL/FLUTICASONE 250/50 INHA INH SCH ×2 (08:05→21:27)
[2016-11-19] MEDS: NICOTINE (21 MG/24 HR) PATCH TRANSDERM SCH (08:05)
[2016-11-19] MEDS: PYRIDOXINE 50 MG TAB PO SCH (08:05)
[2016-11-19] MEDS: TIOTROPIUM 18 MCG CAPSULE INHA DEV INH SCH (08:05)
[2016-11-19] MEDS: DOCUSATE SODIUM 100 MG CAP PO SCH ×2 (08:06→21:28)
[2016-11-19] MEDS: FUROSEMIDE 40 MG TAB PO SCH (08:06)
[2016-11-19] MEDS: CALCIUM ACETATE 667 MG CAP PO SCH ×3 (08:06→17:30)
[2016-11-19] MEDS: CINACALCET 30 MG TAB PO SCH (08:06)
[2016-11-19] MEDS: METOPROLOL (XL) 50 MG TAB PO SCH ×2 (08:07→21:29)
[2016-11-19] MEDS: ASPIRIN 81 MG TAB PO SCH (08:07)
[2016-11-19] MEDS: CARISOPRODOL 350 MG TAB PO PRN ×2 (08:07→18:25)
[2016-11-19] MEDS: AMLODIPINE 5 MG TAB PO SCH (08:08)
[2016-11-19] MEDS: LOSARTAN 50 MG TAB PO SCH ×2 (08:08→21:29)
[2016-11-19] MEDS: APIXABAN 5 MG TABLET PO SCH ×2 (08:08→21:28)
[2016-11-19] MEDS: DILTIAZEM (SR) 60 MG CAP PO SCH (08:09)
[2016-11-19] MEDS: INSULIN ASPART [NOVOLOG] 3 ML PEN SC SCH ×4 (08:09→21:00)
[2016-11-19] MEDS: COLLAGENASE 30 GM TUBE TOP SCH (08:20)
[2016-11-19] MEDS ORDERED: DILTIAZEM (CD) 120 MG CAP PO SCH (11:30)
--- NOTE | 2016-11-19 14:36 | CONS ---
Date/Time of Note Date/Time of Note DATE: 11/19/16 TIME: 14:35 Assessment/Plan Assessment/Plan Chief Complaint/Hosp Course - ESRD on Hemodialysis TTS @ [facility] - POST FALL - ACUTE ANEMIA - Hx of Cellulitis - CAD/CHF - Hx of Hypertension PLAN: On bedside dialysis now Aim for UF ~ 2 Kg Monitor H/H Regular HD days are TTS Started EPOGEN Iron Problems: Consultation Date/Type/Reason Admit Date/Time Nov 11, 2016 at 06:40 Initial Consult Date 11/12/16 Type of Consultation: NEPHROLOGY Reason for Consultation ESRD 24 HR Interval Summary Constitutional: improved, no complaints Exam/Review of Systems Vital Signs Vitals Vital Signs Date Time Temp Pulse Resp B/P Pulse Ox O2 Delivery O2 Flow Rate FiO2 11/19/16 12:22 123 11/19/16 11:40 98.0 19 95/54 94 11/19/16 09:48 Nasal Cannula 3.0 Intake and Output 11/18/16 11/18/16 11/19/16 15:00 23:00 07:00 Intake Total 600 ml 195 ml Balance 600 ml 195 ml Exam Constitutional: alert, oriented Psych: no complaints Neck: jvd, supple Respiratory: crackles/rales Cardiovascular: edema, regular rate and rhythm, systolic murmur Gastrointestinal: soft Results Result Diagram: 11/19/16 0620 11/19/16 0620 Results 24 hrs Laboratory Tests Test 11/18/16 17:29 11/18/16 21:32 11/19/16 06:20 11/19/16 07:50 Bedside Glucose 157 162 144 White Blood Count 12.0 H Red Blood Count 2.95 L Hemoglobin 8.7 L Hematocrit 28.2 L Mean Corpuscular Volume 95.6 Mean Corpuscular Hemoglobin 29.5 Mean Corpuscular Hemoglobin Concent 30.9 L Red Cell Distribution Width 18.7 H Platelet Count 456 H Mean Platelet Volume 9.1 Neutrophils % 67.0 Lymphocytes % 10.6 L Monocytes % 15.9 H Eosinophils % 2.9 Basophils % 0.8 Nucleated Red Blood Cells % 0.3 H Neutrophils # 8.0 H Lymphocytes # 1.3 Monocytes # 1.9 H Eosinophils # 0.4 Basophils # 0.1 Nucleated Red Blood Cells # 0.0 Sodium Level 135 Potassium Level 4.3 Chloride Level 89 L Carbon Dioxide Level 30 Anion Gap 20 H Blood Urea Nitrogen 45 H Creatinine 4.40 H Glucose Level 139 Calcium Level 9.2 Test 11/19/16 12:14 Bedside Glucose 163 Medications Medications Current Medications Amlodipine Besylate (Norvasc) 5 mg DAILY PO Last administered on 11/19/16 08:08 ; Admin Dose 5 MG; Start 11/11/16 at 09:30 Apixaban (Eliquis) 5 mg BID PO Last administered on 11/19/16 08:08; Admin Dose 5 MG; Start 11/11/16 at 09:30 Aspirin (Aspirin) 81 mg DAILY PO Last administered on 11/19/16 08:07; Admin Dose 81 MG; Start 11/11/16 at 09:30 Atorvastatin Calcium (Lipitor) 40 mg QHS PO Last administered on 11/18/16 21:53 ; Admin Dose 40 MG; Start 11/11/16 at 21:00 Benzonatate (Tessalon) 100 mg Q6 PO Last administered on 11/19/16 12:15; Admin Dose 100 MG; Start 11/11/16 at 12:00 Carisoprodol (Soma) 350 mg Q8 PRN PO MUSCLE SPASMS Last administered on 08:07; Admin Dose 350 MG; Start 11/11/16 at 12:00 Cinacalcet (Sensipar) 30 mg DAILY PO Last administered on 11/19/16 08:06; Admin Dose 30 MG; Start 11/11/16 at 11:00 Furosemide (Lasix) 80 mg DAILY PO Last administered on 11/19/16 08:06; Admin Dose 80 MG; Start 11/11/16 at 09:30 Losartan Potassium (Cozaar) 50 mg BID PO Last administered on 11/19/16 08:08; Admin Dose 50 MG; Start 11/11/16 at 09:30 Metoprolol Succinate (Toprol Xl) 50 mg BID PO Last administered on 11/19/16 08: 07; Admin Dose 50 MG; Start 11/11/16 at 09:30 Montelukast Sodium (Singulair) 10 mg QAM PO Last administered on 11/19/16 08:05 ; Admin Dose 10 MG; Start 11/11/16 at 11:00 Oxycodone/ Acetaminophen (Endocet (10/ 325)) 1 tab Q6 PRN PO PRN Last administered on 11/19/16 05:05; Admin Dose 1 TAB; Start 11/11/16 at 12:00 Pyridoxine HCl (Vitamin B6) 50 mg DAILY PO Last administered on 11/19/16 08:05 ; Admin Dose 50 MG; Start 11/11/16 at 09:30 Tiotropium [place] (Spiriva) 1 inh DAILY INH Last administered on 11/19/16 08: 05; Admin Dose 1 INH; Start 11/11/16 at 11:00 Ondansetron HCl (Zofran Tab) 4 mg Q6H PRN PO NAUSEA AND/OR VOMITING Last administered on 11/16/16 20:49; Admin Dose 4 MG; Start 11/11/16 at 10:00 Salmeterol Xinafoate/ Fluticasone (Advair 250/50 Diskus) 1 inh BID INH Last administered on 11/19/16 08:05; Admin Dose 1 INH; Start 11/11/16 at 11:00 Vancomycin HCl (Vanco Iv Per Pharmacy) PER PHARMACY DOSING NOTE XX ; Start 11/11 at 10:30 Albuterol (Ventolin Hfa) 2 puff Q4H PRN INH AOB; Start 11/11/16 at 10:30 Epoetin Hang (Epogen (Esrd)) 10,000 units TuThSa@17 SC Last administered on 11/18 17:31; Admin Dose 10,000 UNITS; Start 11/11/16 at 17:00 Pantoprazole (Protonix Tab) 40 mg BID@06,18 PO Last administered on 11/19/16 06 :48; Admin Dose 40 MG; Start 11/12/16 at 18:00 Collagenase (Santyl) 1 applic DAILY TOP Last administered on 11/19/16 08:20; Admin Dose 1 APPLIC; Start 11/13/16 at 09:00 Diagnostic Test (Pha) (Accu-Chek) 1 ea 02 XX Last administered on 11/18/16 01: 42; Admin Dose 1 EA; Start 11/14/16 at 02:00 Insulin Detemir (Levemir) 35 unit QHS@20 SC Last administered on 11/18/16 21:56 ; Admin Dose 35 UNIT; Start 11/14/16 at 20:00 Nicotine (Nicoderm 21 Mg/ 24hr) 1 patch DAILY TRANSDERM Last administered on 08:05; Admin Dose 1 PATCH; Start 11/14/16 at 20:00 Docusate Sodium 100 mg 100 mg Q12H PO Last administered on 11/19/16 08:06; Admin Dose 100 MG; Start 11/16/16 at 22:00 Vancomycin HCl (Vancocin) 250 ml @ 125 mls/hr Q96H IVPB Last administered on 17:46; Admin Dose 125 MLS/HR; Start 11/16/16 at 17:00 Miscellaneous Information 1 ea NOTE XX ; Start 11/17/16 at 11:30 Glucose (Glutose) 15 gm Q15M PRN PO DECREASED GLUCOSE; Start 11/17/16 at 11:30 Glucose (Glutose) 22.5 gm Q15M PRN PO DECREASED GLUCOSE; Start 11/17/16 at 11:30 Dextrose (D50w Syringe) 25 ml Q15M PRN IV DECREASED GLUCOSE; Start 11/17/16 at 11:30 Dextrose (D50w Syringe) 50 ml Q15M PRN IV DECREASED GLUCOSE; Start 11/17/16 at 11:30 Glucagon (Glucagen) 1 mg Q15M PRN IM DECREASED GLUCOSE; Start 11/17/16 at 11:30 Glucose (Glutose) 15 gm Q15M PRN BUCCAL DECREASED GLUCOSE; Start 11/17/16 at 11: 30 Polyethylene Glycol (Miralax) 17 gm BID PO Last administered on 11/19/16 08:05 ; Admin Dose 17 GM; Start 11/17/16 at 12:00 Bisacodyl (Dulcolax) 10 mg DAILY PRN PO CONSTIPATION; Start 11/17/16 at 11:30 Gentamicin Sulfate (Gentamicin Iv Per Pharmacy) GENTAMICIN PER PHARMACY NOTE XX ; Start 11/17/16 at 14:30 Diltiazem HCl (Cardizem Cd) 120 mg BID PO ; Start 11/19/16 at 21:00 BECKY GAMBLE MD Nov 19, 2016 14:36
--- NOTE | 2016-11-19 15:23 | PN ---
Date/Time of Note Date/Time of Note DATE: 11/19/16 TIME: 15:21 Assessment/Plan VTE Prophylaxis VTE Prophylaxis Intervention: other Lines/Catheters IV C[facility] Type (from [facility] Peripheral IV Urinary Cath still in place: No Assessment/Plan Chief Complaint/Hosp Course 1. Left lower extremity chronic wound. The patient has a wound VAC in place. Being followed by vascular surgery. 2. Type 2 diabetes mellitus. Continue sliding scale insulin. 3. Acute encephalopathy secondary to delirium DC'd anxiolytics and pain medication Monitor 4. Essential hypertension. Continue antihypertensives. 5. COPD. No evidence of exacerbation. Continue inhaled bronchodilators. 6. A. fib with RVR- rate still elevated Increase diltiazem to 120 mg twice daily 7. End-stage renal disease on hemodialysis. Continue hemodialysis as per nephrology. 8. Normocytic, normochromic anemia. Most probably anemia of chronic kidney disease. Being followed by gastroenterology. 9. Obesity. BMI of 44.0 kg/m. Weight reduction advised. 10. Dyslipidemia. Continue statins. 11. DVT prophylaxis. On factor Xa inhibitors. 12. Gastrointestinal prophylaxis. Proton pump inhibitors. 13. Plan. Continue current management. Await placement to a SNF. Problems: Subjective 24 Hr Interval Summary Constitutional: disoriented Exam/Review of Systems Vital Signs Vitals Vital Signs Date Time Temp Pulse Resp B/P Pulse Ox O2 Delivery O2 Flow Rate FiO2 11/19/16 12:22 123 11/19/16 11:40 98.0 19 95/54 94 11/19/16 09:48 Nasal Cannula 3.0 Intake and Output 11/18/16 11/18/16 11/19/16 15:00 23:00 07:00 Intake Total 600 ml 195 ml Balance 600 ml 195 ml Exam Psych: confusion Respiratory: clear to auscultation Cardiovascular: regular rate and rhythm Gastrointestinal: soft, No distended Musculoskeletal: No nl extremities to inspection Results Result Diagram: 11/19/16 0620 11/19/16 0620 Results 24 hrs Laboratory Tests Test 11/18/16 17:29 11/18/16 21:32 11/19/16 06:20 11/19/16 07:50 Bedside Glucose 157 162 144 White Blood Count 12.0 H Red Blood Count 2.95 L Hemoglobin 8.7 L Hematocrit 28.2 L Mean Corpuscular Volume 95.6 Mean Corpuscular Hemoglobin 29.5 Mean Corpuscular Hemoglobin Concent 30.9 L Red Cell Distribution Width 18.7 H Platelet Count 456 H Mean Platelet Volume 9.1 Neutrophils % 67.0 Lymphocytes % 10.6 L Monocytes % 15.9 H Eosinophils % 2.9 Basophils % 0.8 Nucleated Red Blood Cells % 0.3 H Neutrophils # 8.0 H Lymphocytes # 1.3 Monocytes # 1.9 H Eosinophils # 0.4 Basophils # 0.1 Nucleated Red Blood Cells # 0.0 Sodium Level 135 Potassium Level 4.3 Chloride Level 89 L Carbon Dioxide Level 30 Anion Gap 20 H Blood Urea Nitrogen 45 H Creatinine 4.40 H Glucose Level 139 Calcium Level 9.2 Test 11/19/16 12:14 Bedside Glucose 163 Medications Medications Current Medications Amlodipine Besylate (Norvasc) 5 mg DAILY PO Last administered on 11/19/16 08:08 ; Admin Dose 5 MG; Start 11/11/16 at 09:30 Apixaban (Eliquis) 5 mg BID PO Last administered on 11/19/16 08:08; Admin Dose 5 MG; Start 11/11/16 at 09:30 Aspirin (Aspirin) 81 mg DAILY PO Last administered on 11/19/16 08:07; Admin Dose 81 MG; Start 11/11/16 at 09:30 Atorvastatin Calcium (Lipitor) 40 mg QHS PO Last administered on 11/18/16 21:53 ; Admin Dose 40 MG; Start 11/11/16 at 21:00 Benzonatate (Tessalon) 100 mg Q6 PO Last administered on 11/19/16 12:15; Admin Dose 100 MG; Start 11/11/16 at 12:00 Carisoprodol (Soma) 350 mg Q8 PRN PO MUSCLE SPASMS Last administered on 08:07; Admin Dose 350 MG; Start 11/11/16 at 12:00 Cinacalcet (Sensipar) 30 mg DAILY PO Last administered on 11/19/16 08:06; Admin Dose 30 MG; Start 11/11/16 at 11:00 Furosemide (Lasix) 80 mg DAILY PO Last administered on 11/19/16 08:06; Admin Dose 80 MG; Start 11/11/16 at 09:30 Losartan Potassium (Cozaar) 50 mg BID PO Last administered on 11/19/16 08:08; Admin Dose 50 MG; Start 11/11/16 at 09:30 Metoprolol Succinate (Toprol Xl) 50 mg BID PO Last administered on 11/19/16 08: 07; Admin Dose 50 MG; Start 11/11/16 at 09:30 Montelukast Sodium (Singulair) 10 mg QAM PO Last administered on 11/19/16 08:05 ; Admin Dose 10 MG; Start 11/11/16 at 11:00 Oxycodone/ Acetaminophen (Endocet (10/ 325)) 1 tab Q6 PRN PO PRN Last administered on 11/19/16 15:15; Admin Dose 1 TAB; Start 11/11/16 at 12:00 Pyridoxine HCl (Vitamin B6) 50 mg DAILY PO Last administered on 11/19/16 08:05 ; Admin Dose 50 MG; Start 11/11/16 at 09:30 Tiotropium [place] (Spiriva) 1 inh DAILY INH Last administered on 11/19/16 08: 05; Admin Dose 1 INH; Start 11/11/16 at 11:00 Ondansetron HCl (Zofran Tab) 4 mg Q6H PRN PO NAUSEA AND/OR VOMITING Last administered on 11/16/16 20:49; Admin Dose 4 MG; Start 11/11/16 at 10:00 Salmeterol Xinafoate/ Fluticasone (Advair 250/50 Diskus) 1 inh BID INH Last administered on 11/19/16 08:05; Admin Dose 1 INH; Start 11/11/16 at 11:00 Vancomycin HCl (Vanco Iv Per Pharmacy) PER PHARMACY DOSING NOTE XX ; Start 11/11 at 10:30 Albuterol (Ventolin Hfa) 2 puff Q4H PRN INH AOB; Start 11/11/16 at 10:30 Epoetin Hang (Epogen (Esrd)) 10,000 units TuThSa@17 SC Last administered on 11/18 17:31; Admin Dose 10,000 UNITS; Start 11/11/16 at 17:00 Pantoprazole (Protonix Tab) 40 mg BID@06,18 PO Last administered on 11/19/16 06 :48; Admin Dose 40 MG; Start 11/12/16 at 18:00 Collagenase (Santyl) 1 applic DAILY TOP Last administered on 11/19/16 08:20; Admin Dose 1 APPLIC; Start 11/13/16 at 09:00 Diagnostic Test (Pha) (Accu-Chek) 1 ea 02 XX Last administered on 11/18/16 01: 42; Admin Dose 1 EA; Start 11/14/16 at 02:00 Insulin Detemir (Levemir) 35 unit QHS@20 SC Last administered on 11/18/16 21:56 ; Admin Dose 35 UNIT; Start 11/14/16 at 20:00 Nicotine (Nicoderm 21 Mg/ 24hr) 1 patch DAILY TRANSDERM Last administered on 08:05; Admin Dose 1 PATCH; Start 11/14/16 at 20:00 Docusate Sodium 100 mg 100 mg Q12H PO Last administered on 11/19/16 08:06; Admin Dose 100 MG; Start 11/16/16 at 22:00 Vancomycin HCl (Vancocin) 250 ml @ 125 mls/hr Q96H IVPB Last administered on 17:46; Admin Dose 125 MLS/HR; Start 11/16/16 at 17:00 Miscellaneous Information 1 ea NOTE XX ; Start 11/17/16 at 11:30 Glucose (Glutose) 15 gm Q15M PRN PO DECREASED GLUCOSE; Start 11/17/16 at 11:30 Glucose (Glutose) 22.5 gm Q15M PRN PO DECREASED GLUCOSE; Start 11/17/16 at 11:30 Dextrose (D50w Syringe) 25 ml Q15M PRN IV DECREASED GLUCOSE; Start 11/17/16 at 11:30 Dextrose (D50w Syringe) 50 ml Q15M PRN IV DECREASED GLUCOSE; Start 11/17/16 at 11:30 Glucagon (Glucagen) 1 mg Q15M PRN IM DECREASED GLUCOSE; Start 11/17/16 at 11:30 Glucose (Glutose) 15 gm Q15M PRN BUCCAL DECREASED GLUCOSE; Start 11/17/16 at 11: 30 Polyethylene Glycol (Miralax) 17 gm BID PO Last administered on 11/19/16 08:05 ; Admin Dose 17 GM; Start 11/17/16 at 12:00 Bisacodyl (Dulcolax) 10 mg DAILY PRN PO CONSTIPATION; Start 11/17/16 at 11:30 Gentamicin Sulfate (Gentamicin Iv Per Pharmacy) GENTAMICIN PER PHARMACY NOTE XX ; Start 11/17/16 at 14:30 Diltiazem HCl (Cardizem Cd) 120 mg BID PO ; Start 11/19/16 at 21:00 MICHAEL COULTER Nov 19, 2016 15:23
--- NOTE | 2016-11-19 16:35 | CONS ---
Date/Time of Note Date/Time of Note DATE: 11/19/16 TIME: 16:32 Assessment/Plan Assessment/Plan Chief Complaint/Hosp Course Patient is sleeping, very weak more confused per report, she is in no distress. Temperature 98 pulse 120 respirations 19 blood pressure 95/54 saturation 94% on nasal cannula WBC 12 H&H 8.7 and 28.2 platelets 456 Indwelling's: Left upper extremity AV fistula Antimicrobials: Vancomycin, Gentamicin Physical examination: Morbidly obese well-developed elderly woman who is i lethargic, in no distress. Head atraumatic, normocephalic. Sclerae nonicteric. Neck is obese. Chest rise symmetrical, breath sounds diminished basis. Heart S1-S2. Abdomen obese soft bowel tones present. Extremities with bilateral edema, patient has multiple lesions on her lower extremities erythema resolving, she has a left upper thigh wound VAC. ASSESSMENT: 1. Acute encephalopathy, rule out aspiration event, rule out UTI 2. Bilateral lower extremities chronic venous stasis with chronic cellulitis and left hip wound, s/p debridement and wound vac application 10/19/16. 3. End-stage renal disease, on hemodialysis. 4. Morbid obesity. 5. Atrial fibrillation. 6. Leukocytosis==> improving Plan: Clinically unchanged, continue abx, anti-aspiration measures, repeat urine culture and chest x-ray in a.m., encourage incentive spirometry, local wound care as per surgical team. [facility] staff Problems: Consultation Date/Type/Reason Admit Date/Time Nov 11, 2016 at 06:40 Initial Consult Date 11/12/16 Type of Consultation: ID Exam/Review of Systems Vital Signs Vitals Vital Signs Date Time Temp Pulse Resp B/P Pulse Ox O2 Delivery O2 Flow Rate FiO2 11/19/16 16:23 126 11/19/16 16:19 98.0 19 121/65 91 11/19/16 09:48 Nasal Cannula 3.0 Intake and Output 11/18/16 11/18/16 11/19/16 15:00 23:00 07:00 Intake Total 600 ml 195 ml Balance 600 ml 195 ml Results Result Diagram: 11/19/16 0620 11/19/16 0620 Results 24 hrs Laboratory Tests Test 11/18/16 17:29 11/18/16 21:32 11/19/16 06:20 11/19/16 07:50 Bedside Glucose 157 162 144 White Blood Count 12.0 H Red Blood Count 2.95 L Hemoglobin 8.7 L Hematocrit 28.2 L Mean Corpuscular Volume 95.6 Mean Corpuscular Hemoglobin 29.5 Mean Corpuscular Hemoglobin Concent 30.9 L Red Cell Distribution Width 18.7 H Platelet Count 456 H Mean Platelet Volume 9.1 Neutrophils % 67.0 Lymphocytes % 10.6 L Monocytes % 15.9 H Eosinophils % 2.9 Basophils % 0.8 Nucleated Red Blood Cells % 0.3 H Neutrophils # 8.0 H Lymphocytes # 1.3 Monocytes # 1.9 H Eosinophils # 0.4 Basophils # 0.1 Nucleated Red Blood Cells # 0.0 Sodium Level 135 Potassium Level 4.3 Chloride Level 89 L Carbon Dioxide Level 30 Anion Gap 20 H Blood Urea Nitrogen 45 H Creatinine 4.40 H Glucose Level 139 Calcium Level 9.2 Test 11/19/16 12:14 Bedside Glucose 163 Medications Medications Current Medications Amlodipine Besylate (Norvasc) 5 mg DAILY PO Last administered on 11/19/16 08:08 ; Admin Dose 5 MG; Start 11/11/16 at 09:30 Apixaban (Eliquis) 5 mg BID PO Last administered on 11/19/16 08:08; Admin Dose 5 MG; Start 11/11/16 at 09:30 Aspirin (Aspirin) 81 mg DAILY PO Last administered on 11/19/16 08:07; Admin Dose 81 MG; Start 11/11/16 at 09:30 Atorvastatin Calcium (Lipitor) 40 mg QHS PO Last administered on 11/18/16 21:53 ; Admin Dose 40 MG; Start 11/11/16 at 21:00 Benzonatate (Tessalon) 100 mg Q6 PO Last administered on 11/19/16 12:15; Admin Dose 100 MG; Start 11/11/16 at 12:00 Carisoprodol (Soma) 350 mg Q8 PRN PO MUSCLE SPASMS Last administered on 08:07; Admin Dose 350 MG; Start 11/11/16 at 12:00 Cinacalcet (Sensipar) 30 mg DAILY PO Last administered on 11/19/16 08:06; Admin Dose 30 MG; Start 11/11/16 at 11:00 Furosemide (Lasix) 80 mg DAILY PO Last administered on 11/19/16 08:06; Admin Dose 80 MG; Start 11/11/16 at 09:30 Losartan Potassium (Cozaar) 50 mg BID PO Last administered on 11/19/16 08:08; Admin Dose 50 MG; Start 11/11/16 at 09:30 Metoprolol Succinate (Toprol Xl) 50 mg BID PO Last administered on 11/19/16 08: 07; Admin Dose 50 MG; Start 11/11/16 at 09:30 Montelukast Sodium (Singulair) 10 mg QAM PO Last administered on 11/19/16 08:05 ; Admin Dose 10 MG; Start 11/11/16 at 11:00 Oxycodone/ Acetaminophen (Endocet (10 325)) 1 tab Q6 PRN PO PRN Last administered on 11/19/16 15:15; Admin Dose 1 TAB; Start 11/11/16 at 12:00 Pyridoxine HCl (Vitamin B6) 50 mg DAILY PO Last administered on 11/19/16 08:05 ; Admin Dose 50 MG; Start 11/11/16 at 09:30 Tiotropium [place] (Spiriva) 1 inh DAILY INH Last administered on 11/19/16 08: 05; Admin Dose 1 INH; Start 11/11/16 at 11:00 Ondansetron HCl (Zofran Tab) 4 mg Q6H PRN PO NAUSEA AND/OR VOMITING Last administered on 11/16/16 20:49; Admin Dose 4 MG; Start 11/11/16 at 10:00 Salmeterol Xinafoate/ Fluticasone (Advair 250/50 Diskus) 1 inh BID INH Last administered on 11/19/16 08:05; Admin Dose 1 INH; Start 11/11/16 at 11:00 Vancomycin HCl (Vanco Iv Per Pharmacy) PER PHARMACY DOSING NOTE XX ; Start 11/11 at 10:30 Albuterol (Ventolin Hfa) 2 puff Q4H PRN INH AOB; Start 11/11/16 at 10:30 Epoetin Hang (Epogen (Esrd)) 10,000 units TuThSa@17 SC Last administered on 11/18 17:31; Admin Dose 10,000 UNITS; Start 11/11/16 at 17:00 Pantoprazole (Protonix Tab) 40 mg BID@06,18 PO Last administered on 11/19/16 06 :48; Admin Dose 40 MG; Start 11/12/16 at 18:00 Collagenase (Santyl) 1 applic DAILY TOP Last administered on 11/19/16 08:20; Admin Dose 1 APPLIC; Start 11/13/16 at 09:00 Diagnostic Test (Pha) (Accu-Chek) 1 ea 02 XX Last administered on 11/18/16 01: 42; Admin Dose 1 EA; Start 11/14/16 at 02:00 Insulin Detemir (Levemir) 35 unit QHS@20 SC Last administered on 11/18/16 21:56 ; Admin Dose 35 UNIT; Start 11/14/16 at 20:00 Nicotine (Nicoderm 21 Mg/ 24hr) 1 patch DAILY TRANSDERM Last administered on 08:05; Admin Dose 1 PATCH; Start 11/14/16 at 20:00 Docusate Sodium 100 mg 100 mg Q12H PO Last administered on 11/19/16 08:06; Admin Dose 100 MG; Start 11/16/16 at 22:00 Vancomycin HCl (Vancocin) 250 ml @ 125 mls/hr Q96H IVPB Last administered on 17:46; Admin Dose 125 MLS/HR; Start 11/16/16 at 17:00 Miscellaneous Information 1 ea NOTE XX ; Start 11/17/16 at 11:30 Glucose (Glutose) 15 gm Q15M PRN PO DECREASED GLUCOSE; Start 11/17/16 at 11:30 Glucose (Glutose) 22.5 gm Q15M PRN PO DECREASED GLUCOSE; Start 11/17/16 at 11:30 Dextrose (D50w Syringe) 25 ml Q15M PRN IV DECREASED GLUCOSE; Start 11/17/16 at 11:30 Dextrose (D50w Syringe) 50 ml Q15M PRN IV DECREASED GLUCOSE; Start 11/17/16 at 11:30 Glucagon (Glucagen) 1 mg Q15M PRN IM DECREASED GLUCOSE; Start 11/17/16 at 11:30 Glucose (Glutose) 15 gm Q15M PRN BUCCAL DECREASED GLUCOSE; Start 11/17/16 at 11: 30 Polyethylene Glycol (Miralax) 17 gm BID PO Last administered on 11/19/16 08:05 ; Admin Dose 17 GM; Start 11/17/16 at 12:00 Bisacodyl (Dulcolax) 10 mg DAILY PRN PO CONSTIPATION; Start 11/17/16 at 11:30 Gentamicin Sulfate (Gentamicin Iv Per Pharmacy) GENTAMICIN PER PHARMACY NOTE XX ; Start 11/17/16 at 14:30 Diltiazem HCl (Cardizem Cd) 120 mg BID PO ; Start 11/19/16 at 21:00 TODD RAMIRES NP Nov 19, 2016 16:35
[2016-11-19] MEDS: DILTIAZEM (CD) 120 MG CAP PO SCH (21:28)
[2016-11-19] MEDS: ATORVASTATIN 40 MG TAB PO SCH (21:28)
[2016-11-19] MEDS: INSULIN DETEMIR [LEVEMIR] 3ML CART SC SCH (21:34)
[2016-11-19] MEDS: ZOLPIDEM 5 MG TAB PO PRN (21:41)
[2016-11-20] VITALS (13 sets, daily range): BP systolic 104–129; BP diastolic 52–63; PULSE 89–128; RESP 18–20
[2016-11-20] MEDS: ACCU-CHEK XX SCH (01:10)
[2016-11-20] MEDS: PANTOPRAZOLE (EC) 40 MG TAB PO SCH ×2 (06:03→17:54)
[2016-11-20] MEDS: BENZONATATE 100 MG CAP PO SCH ×4 (06:03→17:54)
[2016-11-20 07:27] LABS: ADD SCAN DIFF NO
[2016-11-20 07:44] LABS: ABNORMAL IP MESSAGE 1; BASOPHIL # 0.1 10^3/ul (0.0-0.1); BASOPHILS % 0.7 % (0.0-2.0); EOSINOPHILS # 0.3 10^3/ul (0.0-0.5); EOSINOPHILS % 2.5 % (0.0-7.0); HEMATOCRIT 29.4 % (37.0-47.0); HEMOGLOBIN 8.6 g/dl (12.0-16.0); LYMPHOCYTES # 1.3 10^3/ul (0.8-2.9); MEAN CORPUSCULAR HEMOGLOBIN 28.6 pg (29.0-33.0); MEAN CORPUSCULAR HGB CONC 29.3 g/dl (32.0-37.0); MEAN CORPUSCULAR VOLUME 97.7 fl (82.0-101.0); MEAN PLATELET VOLUME 9.1 fl (7.4-10.4); MONOCYTE # 1.8 10^3/ul (0.3-0.9); MONOCYTES % 15.2 % (0.0-11.0); NEUTROPHIL # 7.8 10^3/ul (1.6-7.5); NEUTROPHILS % 66.8 % (39.0-77.0); NUCLEATED RED BLOOD CELLS # 0.1 10^3/ul (0.0-0.0); NUCLEATED RED BLOOD CELLS% 0.5 /100WBC (0.0-0.0); PLATELET COUNT 463 10^3/UL (140-415); RED BLOOD COUNT 3.01 10^6/ul (4.20-5.40); RED CELL DISTRIBUTION WIDTH 18.8 % (11.5-14.5); WHITE BLOOD COUNT 11.6 10^3/ul (4.8-10.8)
[2016-11-20 07:52] LABS: CALCIUM 9.4 mg/dl (8.4-10.2); CREATININE 3.79 mg/dl (0.44-1.00); POTASSIUM 4.2 mmol/L (3.5-5.1)
[2016-11-20] MEDS: CALCIUM ACETATE 667 MG CAP PO SCH ×3 (08:42→17:54)
[2016-11-20] MEDS: METOCLOPRAMIDE 5 MG TAB PO SCH ×3 (08:42→17:54)
[2016-11-20] MEDS: SALMETEROL/FLUTICASONE 250/50 INHA INH SCH ×2 (08:42→20:44)
[2016-11-20] MEDS: ASPIRIN 81 MG TAB PO SCH (08:43)
[2016-11-20] MEDS: DILTIAZEM (CD) 120 MG CAP PO SCH ×2 (08:43→20:46)
[2016-11-20] MEDS: TIOTROPIUM 18 MCG CAPSULE INHA DEV INH SCH (08:43)
[2016-11-20] MEDS: POLYETHYLENE GLYCOL 17 GM PACKET PO SCH ×2 (08:44→20:45)
[2016-11-20] MEDS: APIXABAN 5 MG TABLET PO SCH ×2 (08:44→20:46)
[2016-11-20] MEDS: FUROSEMIDE 40 MG TAB PO SCH (08:44)
[2016-11-20] MEDS: LOSARTAN 50 MG TAB PO SCH ×2 (08:44→20:45)
[2016-11-20] MEDS: MONTELUKAST 10 MG TAB PO SCH (08:45)
[2016-11-20] MEDS: AMLODIPINE 5 MG TAB PO SCH (08:45)
[2016-11-20] MEDS: CINACALCET 30 MG TAB PO SCH (08:45)
[2016-11-20] MEDS: PYRIDOXINE 50 MG TAB PO SCH (08:46)
[2016-11-20] MEDS: NICOTINE (21 MG/24 HR) PATCH TRANSDERM SCH (08:46)
[2016-11-20] MEDS: METOPROLOL (XL) 50 MG TAB PO SCH ×2 (08:46→20:45)
[2016-11-20] MEDS: COLLAGENASE 30 GM TUBE TOP SCH (08:55)
[2016-11-20] MEDS: INSULIN ASPART [NOVOLOG] 3 ML PEN SC SCH ×4 (09:24→20:42)
[2016-11-20] MEDS: DOCUSATE SODIUM 100 MG CAP PO SCH ×2 (09:39→21:42)
--- NOTE | 2016-11-20 11:00 | PN ---
Date/Time of Note Date/Time of Note DATE: 11/20/16 TIME: 10:57 Assessment/Plan VTE Prophylaxis VTE Prophylaxis Intervention: heparin Lines/Catheters IV C[facility] Type (from [facility] Peripheral IV Urinary Cath still in place: No Assessment/Plan Problems: (1) Debility Status: Chronic Comment: We will need to get the patient up around. I have reordered physical therapy please see their note dated November 19, 2016 (2) Obesity (BMI 30-39.9) Status: Chronic Comment: Calorie restriction diet (3) End stage renal disease on dialysis Status: Chronic Comment: As per nephrology remains on hemodialysis (4) Essential hypertension Status: Chronic Comment: Adequate control (5) Diabetes mellitus type 2 in obese Status: Chronic Comment: Adequate control on current regimen. Subjective 24 Hr Interval Summary Free Text/Dictation Patient reports that she feels "crappy" patient desires physical therapy. Please see physical therapy notes. Constitutional: no complaints Respiratory: no complaints Cardiovascular: no complaints Gastrointestinal: no complaints Exam/Review of Systems Vital Signs Vitals Vital Signs Date Time Temp Pulse Resp B/P Pulse Ox O2 Delivery O2 Flow Rate FiO2 11/20/16 08:42 Nasal Cannula 2.0 11/20/16 08:20 128 11/20/16 07:47 97.6 20 105/52 91 Intake and Output 11/19/16 11/19/16 11/20/16 15:00 23:00 07:00 Intake Total 400 ml Output Total 1400 ml Balance -1000 ml Exam Constitutional: alert, oriented Respiratory: clear to auscultation, normal air movement Cardiovascular: nl pulses, regular rate and rhythm Results Result Diagram: 11/20/16 0707 11/20/16 0707 Results 24 hrs Laboratory Tests Test 11/19/16 12:14 11/19/16 17:23 11/19/16 21:21 11/20/16 07:07 Bedside Glucose 163 152 176 White Blood Count 11.6 H Red Blood Count 3.01 L Hemoglobin 8.6 L Hematocrit 29.4 L Mean Corpuscular Volume 97.7 Mean Corpuscular Hemoglobin 28.6 L Mean Corpuscular Hemoglobin Concent 29.3 L Red Cell Distribution Width 18.8 H Platelet Count 463 H Mean Platelet Volume 9.1 Neutrophils % 66.8 Lymphocytes % 11.0 L Monocytes % 15.2 H Eosinophils % 2.5 Basophils % 0.7 Nucleated Red Blood Cells % 0.5 H Neutrophils # 7.8 H Lymphocytes # 1.3 Monocytes # 1.8 H Eosinophils # 0.3 Basophils # 0.1 Nucleated Red Blood Cells # 0.1 H Sodium Level 139 Potassium Level 4.2 Chloride Level 97 Carbon Dioxide Level 30 Anion Gap 16 Blood Urea Nitrogen 34 #H Creatinine 3.79 H Glucose Level 157 Calcium Level 9.4 Test 11/20/16 08:37 Bedside Glucose 143 Medications Medications Current Medications Amlodipine Besylate (Norvasc) 5 mg DAILY PO Last administered on 11/20/16 08:45 ; Admin Dose 5 MG; Start 11/11/16 at 09:30 Apixaban (Eliquis) 5 mg BID PO Last administered on 11/20/16 08:44; Admin Dose 5 MG; Start 11/11/16 at 09:30 Aspirin (Aspirin) 81 mg DAILY PO Last administered on 11/20/16 08:43; Admin Dose 81 MG; Start 11/11/16 at 09:30 Atorvastatin Calcium (Lipitor) 40 mg QHS PO Last administered on 11/19/16 21:28 ; Admin Dose 40 MG; Start 11/11/16 at 21:00 Benzonatate (Tessalon) 100 mg Q6 PO Last administered on 11/20/16 06:03; Admin Dose 100 MG; Start 11/11/16 at 12:00 Carisoprodol (Soma) 350 mg Q8 PRN PO MUSCLE SPASMS Last administered on 18:25; Admin Dose 350 MG; Start 11/11/16 at 12:00 Cinacalcet (Sensipar) 30 mg DAILY PO Last administered on 11/20/16 08:45; Admin Dose 30 MG; Start 11/11/16 at 11:00 Furosemide (Lasix) 80 mg DAILY PO Last administered on 11/20/16 08:44; Admin Dose 80 MG; Start 11/11/16 at 09:30 Losartan Potassium (Cozaar) 50 mg BID PO Last administered on 11/20/16 08:44; Admin Dose 50 MG; Start 11/11/16 at 09:30 Metoprolol Succinate (Toprol Xl) 50 mg BID PO Last administered on 11/20/16 08: 46; Admin Dose 50 MG; Start 11/11/16 at 09:30 Montelukast Sodium (Singulair) 10 mg QAM PO Last administered on 11/20/16 08:45 ; Admin Dose 10 MG; Start 11/11/16 at 11:00 Oxycodone/ Acetaminophen (Endocet (10/ 325)) 1 tab Q6 PRN PO PRN Last administered on 11/19/16 21:29; Admin Dose 1 TAB; Start 11/11/16 at 12:00 Pyridoxine HCl (Vitamin B6) 50 mg DAILY PO Last administered on 11/20/16 08:46 ; Admin Dose 50 MG; Start 11/11/16 at 09:30 Tiotropium [place] (Spiriva) 1 inh DAILY INH Last administered on 11/20/16 08: 43; Admin Dose 1 INH; Start 11/11/16 at 11:00 Ondansetron HCl (Zofran Tab) 4 mg Q6H PRN PO NAUSEA AND/OR VOMITING Last administered on 11/16/16 20:49; Admin Dose 4 MG; Start 11/11/16 at 10:00 Salmeterol Xinafoate/ Fluticasone (Advair 250/50 Diskus) 1 inh BID INH Last administered on 11/20/16 08:42; Admin Dose 1 INH; Start 11/11/16 at 11:00 Vancomycin HCl (Vanco Iv Per Pharmacy) PER PHARMACY DOSING NOTE XX ; Start 11/11 at 10:30 Albuterol (Ventolin Hfa) 2 puff Q4H PRN INH AOB; Start 11/11/16 at 10:30 Epoetin Hang (Epogen (Esrd)) 10,000 units TuThSa@17 SC Last administered on 11/18 17:31; Admin Dose 10,000 UNITS; Start 11/11/16 at 17:00 Pantoprazole (Protonix Tab) 40 mg BID@,18 PO Last administered on 11/20/16 06 :03; Admin Dose 40 MG; Start 11/12/16 at 18:00 Collagenase (Santyl) 1 applic DAILY TOP Last administered on 11/20/16 08:55; Admin Dose 1 APPLIC; Start 11/13/16 at 09:00 Diagnostic Test (Pha) (Accu-Chek) 1 ea 02 XX Last administered on 11/18/16 01: 42; Admin Dose 1 EA; Start 11/14/16 at 02:00 Insulin Detemir (Levemir) 35 unit QHS@20 SC Last administered on 11/19/16 21:34 ; Admin Dose 35 UNIT; Start 11/14/16 at 20:00 Nicotine (Nicoderm 21 Mg/ 24hr) 1 patch DAILY TRANSDERM Last administered on 08:46; Admin Dose 1 PATCH; Start 11/14/16 at 20:00 Docusate Sodium 100 mg 100 mg Q12H PO Last administered on 11/20/16 09:39; Admin Dose 100 MG; Start 11/16/16 at 22:00 Vancomycin HCl (Vancocin) 250 ml @ 125 mls/hr Q96H IVPB Last administered on 17:46; Admin Dose 125 MLS/HR; Start 11/16/16 at 17:00 Miscellaneous Information 1 ea NOTE XX ; Start 11/17/16 at 11:30 Glucose (Glutose) 15 gm Q15M PRN PO DECREASED GLUCOSE; Start 11/17/16 at 11:30 Glucose (Glutose) 22.5 gm Q15M PRN PO DECREASED GLUCOSE; Start 11/17/16 at 11:30 Dextrose (D50w Syringe) 25 ml Q15M PRN IV DECREASED GLUCOSE; Start 11/17/16 at 11:30 Dextrose (D50w Syringe) 50 ml Q15M PRN IV DECREASED GLUCOSE; Start 11/17/16 at 11:30 Glucagon (Glucagen) 1 mg Q15M PRN IM DECREASED GLUCOSE; Start 11/17/16 at 11:30 Glucose (Glutose) 15 gm Q15M PRN BUCCAL DECREASED GLUCOSE; Start 11/17/16 at 11: 30 Polyethylene Glycol (Miralax) 17 gm BID PO Last administered on 11/20/16 08:44 ; Admin Dose 17 GM; Start 11/17/16 at 12:00 Bisacodyl (Dulcolax) 10 mg DAILY PRN PO CONSTIPATION; Start 11/17/16 at 11:30 Gentamicin Sulfate (Gentamicin Iv Per Pharmacy) GENTAMICIN PER PHARMACY NOTE XX Last administered on 11/19/16 15:00; Admin Dose 1 EA; Start 11/17/16 at 14:30 Diltiazem HCl (Cardizem Cd) 120 mg BID PO Last administered on 11/20/16 08:43; Admin Dose 120 MG; Start 11/19/16 at 21:00 Zolpidem Tartrate (Ambien) 5 mg HS PRN PO INSOMNIA Last administered on 21:41; Admin Dose 5 MG; Start 11/19/16 at 21:30 FOUZIA CHAMPION MD Nov 20, 2016 11:00
[2016-11-20] MEDS: OXYCODONE/ACETAMINOPHEN (10/325) TAB PO PRN ×2 (11:07→22:42)
[2016-11-20] MEDS: CARISOPRODOL 350 MG TAB PO PRN (13:13)
--- NOTE | 2016-11-20 16:22 | CONS ---
Date/Time of Note Date/Time of Note DATE: 11/20/16 TIME: 16:21 Assessment/Plan Assessment/Plan Chief Complaint/Hosp Course Alert, weak, looks comfortable, no fevers Indwelling's: Left upper extremity AV fistula Antimicrobials: Vancomycin, Gentamicin Physical examination: Morbidly obese well-developed elderly woman who is i lethargic, in no distress. Head atraumatic, normocephalic. Sclerae nonicteric. Neck is obese. Chest rise symmetrical, breath sounds diminished basis. Heart S1-S2. Abdomen obese soft bowel tones present. Extremities with bilateral edema, patient has multiple lesions on her lower extremities erythema resolving, she has a left upper thigh wound VAC. ASSESSMENT: 1. Acute encephalopathy, rule out aspiration event, rule out UTI 2. Bilateral lower extremities chronic venous stasis with chronic cellulitis and left hip wound, s/p debridement and wound vac application 10/19/16. 3. End-stage renal disease, on hemodialysis. 4. Morbid obesity. 5. Atrial fibrillation. 6. Leukocytosis==> improving Plan: Clinically improved, WBC tracing down, continue abx, anti-aspiration measures, encourage incentive spirometry, local wound care as per surgical team. staff Problems: Consultation Date/Type/Reason Admit Date/Time Nov 11, 2016 at 06:40 Initial Consult Date 11/12/16 Type of Consultation: Infectious disease Exam/Review of Systems Vital Signs Vitals Vital Signs Date Time Temp Pulse Resp B/P Pulse Ox O2 Delivery O2 Flow Rate FiO2 11/20/16 15:52 98.4 116 20 108/57 95 11/20/16 08:42 Nasal Cannula 2.0 Intake and Output 11/19/16 11/19/16 11/20/16 15:00 23:00 07:00 Intake Total 400 ml Output Total 1400 ml Balance -1000 ml Results Result Diagram: 11/20/16 0707 11/20/16 0707 Results 24 hrs Laboratory Tests Test 11/19/16 17:23 11/19/16 21:21 11/20/16 07:07 11/20/16 08:37 Bedside Glucose 152 176 143 White Blood Count 11.6 H Red Blood Count 3.01 L Hemoglobin 8.6 L Hematocrit 29.4 L Mean Corpuscular Volume 97.7 Mean Corpuscular Hemoglobin 28.6 L Mean Corpuscular Hemoglobin Concent 29.3 L Red Cell Distribution Width 18.8 H Platelet Count 463 H Mean Platelet Volume 9.1 Neutrophils % 66.8 Lymphocytes % 11.0 L Monocytes % 15.2 H Eosinophils % 2.5 Basophils % 0.7 Nucleated Red Blood Cells % 0.5 H Neutrophils # 7.8 H Lymphocytes # 1.3 Monocytes # 1.8 H Eosinophils # 0.3 Basophils # 0.1 Nucleated Red Blood Cells # 0.1 H Sodium Level 139 Potassium Level 4.2 Chloride Level 97 Carbon Dioxide Level 30 Anion Gap 16 Blood Urea Nitrogen 34 #H Creatinine 3.79 H Glucose Level 157 Calcium Level 9.4 Test 11/20/16 11:10 Bedside Glucose 155 Medications Medications Current Medications Amlodipine Besylate (Norvasc) 5 mg DAILY PO Last administered on 11/20/16 08:45 ; Admin Dose 5 MG; Start 11/11/16 at 09:30 Apixaban (Eliquis) 5 mg BID PO Last administered on 11/20/16 08:44; Admin Dose 5 MG; Start 11/11/16 at 09:30 Aspirin (Aspirin) 81 mg DAILY PO Last administered on 11/20/16 08:43; Admin Dose 81 MG; Start 11/11/16 at 09:30 Atorvastatin Calcium (Lipitor) 40 mg QHS PO Last administered on 11/19/16 21:28 ; Admin Dose 40 MG; Start 11/11/16 at 21:00 Benzonatate (Tessalon) 100 mg Q6 PO Last administered on 11/20/16 11:07; Admin Dose 100 MG; Start 11/11/16 at 12:00 Carisoprodol (Soma) 350 mg Q8 PRN PO MUSCLE SPASMS Last administered on 13:13; Admin Dose 350 MG; Start 11/11/16 at 12:00 Cinacalcet (Sensipar) 30 mg DAILY PO Last administered on 11/20/16 08:45; Admin Dose 30 MG; Start 11/11/16 at 11:00 Furosemide (Lasix) 80 mg DAILY PO Last administered on 11/20/16 08:44; Admin Dose 80 MG; Start 11/11/16 at 09:30 Losartan Potassium (Cozaar) 50 mg BID PO Last administered on 11/20/16 08:44; Admin Dose 50 MG; Start 11/11/16 at 09:30 Metoprolol Succinate (Toprol Xl) 50 mg BID PO Last administered on 11/20/16 08: 46; Admin Dose 50 MG; Start 11/11/16 at 09:30 Montelukast Sodium (Singulair) 10 mg QAM PO Last administered on 11/20/16 08:45 ; Admin Dose 10 MG; Start 11/11/16 at 11:00 Oxycodone/ Acetaminophen (Endocet (10/ 325)) 1 tab Q6 PRN PO PRN Last administered on 11/20/16 11:07; Admin Dose 1 TAB; Start 11/11/16 at 12:00 Pyridoxine HCl (Vitamin B6) 50 mg DAILY PO Last administered on 11/20/16 08:46 ; Admin Dose 50 MG; Start 11/11/16 at 09:30 Tiotropium [place] (Spiriva) 1 inh DAILY INH Last administered on 11/20/16 08: 43; Admin Dose 1 INH; Start 11/11/16 at 11:00 Ondansetron HCl (Zofran Tab) 4 mg Q6H PRN PO NAUSEA AND/OR VOMITING Last administered on 11/16/16 20:49; Admin Dose 4 MG; Start 11/11/16 at 10:00 Salmeterol Xinafoate/ Fluticasone (Advair 250/50 Diskus) 1 inh BID INH Last administered on 11/20/16 08:42; Admin Dose 1 INH; Start 11/11/16 at 11:00 Vancomycin HCl (Vanco Iv Per Pharmacy) PER PHARMACY DOSING NOTE XX ; Start 11/11 at 10:30 Albuterol (Ventolin Hfa) 2 puff Q4H PRN INH AOB; Start 11/11/16 at 10:30 Epoetin Hang (Epogen (Esrd)) 10,000 units TuThSa@17 SC Last administered on 11/18 17:31; Admin Dose 10,000 UNITS; Start 11/11/16 at 17:00 Pantoprazole (Protonix Tab) 40 mg BID@06,18 PO Last administered on 11/20/16 06 :03; Admin Dose 40 MG; Start 11/12/16 at 18:00 Collagenase (Santyl) 1 applic DAILY TOP Last administered on 11/20/16 08:55; Admin Dose 1 APPLIC; Start 11/13/16 at 09:00 Diagnostic Test (Pha) (Accu-Chek) 1 ea 02 XX Last administered on 11/18/16 01: 42; Admin Dose 1 EA; Start 11/14/16 at 02:00 Insulin Detemir (Levemir) 35 unit QHS@20 SC Last administered on 11/19/16 21:34 ; Admin Dose 35 UNIT; Start 11/14/16 at 20:00 Nicotine (Nicoderm 21 Mg/ 24hr) 1 patch DAILY TRANSDERM Last administered on 08:46; Admin Dose 1 PATCH; Start 11/14/16 at 20:00 Docusate Sodium 100 mg 100 mg Q12H PO Last administered on 11/20/16 09:39; Admin Dose 100 MG; Start 11/16/16 at 22:00 Vancomycin HCl (Vancocin) 250 ml @ 125 mls/hr Q96H IVPB Last administered on 17:46; Admin Dose 125 MLS/HR; Start 11/16/16 at 17:00 Miscellaneous Information 1 ea NOTE XX ; Start 11/17/16 at 11:30 Glucose (Glutose) 15 gm Q15M PRN PO DECREASED GLUCOSE; Start 11/17/16 at 11:30 Glucose (Glutose) 22.5 gm Q15M PRN PO DECREASED GLUCOSE; Start 11/17/16 at 11:30 Dextrose (D50w Syringe) 25 ml Q15M PRN IV DECREASED GLUCOSE; Start 11/17/16 at 11:30 Dextrose (D50w Syringe) 50 ml Q15M PRN IV DECREASED GLUCOSE; Start 11/17/16 at 11:30 Glucagon (Glucagen) 1 mg Q15M PRN IM DECREASED GLUCOSE; Start 11/17/16 at 11:30 Glucose (Glutose) 15 gm Q15M PRN BUCCAL DECREASED GLUCOSE; Start 11/17/16 at 11: 30 Polyethylene Glycol (Miralax) 17 gm BID PO Last administered on 11/20/16 08:44 ; Admin Dose 17 GM; Start 11/17/16 at 12:00 Bisacodyl (Dulcolax) 10 mg DAILY PRN PO CONSTIPATION; Start 11/17/16 at 11:30 Gentamicin Sulfate (Gentamicin Iv Per Pharmacy) GENTAMICIN PER PHARMACY NOTE XX Last administered on 11/19/16 15:00; Admin Dose 1 EA; Start 11/17/16 at 14:30 Diltiazem HCl (Cardizem Cd) 120 mg BID PO Last administered on 11/20/16 08:43; Admin Dose 120 MG; Start 11/19/16 at 21:00 Zolpidem Tartrate (Ambien) 5 mg HS PRN PO INSOMNIA Last administered on 21:41; Admin Dose 5 MG; Start 11/19/16 at 21:30 TODD RAMIRES [employer] Nov 20, 2016 16:22
[2016-11-20] MEDS: EPOETIN 10000 UNITS/1 ML INJ (ESRD) SC SCH (17:54)
[2016-11-20] MEDS: VANCOMYCIN 1 GM in NS 250 ML IVPB SCH (18:04)
[2016-11-20] MEDS: ATORVASTATIN 40 MG TAB PO SCH (20:45)
[2016-11-20] MEDS: INSULIN DETEMIR [LEVEMIR] 3ML CART SC SCH (20:52)
[2016-11-20] MEDS ORDERED: LORAZEPAM 2 MG INJ IV ONE (21:15)
[2016-11-20] MEDS: ZOLPIDEM 5 MG TAB PO PRN (22:42)
[2016-11-21] VITALS (12 sets, daily range): BP systolic 105–120; BP diastolic 55–78; PULSE 61–82; RESP 18–20
[2016-11-21] MEDS: BENZONATATE 100 MG CAP PO SCH ×4 (00:46→17:14)
[2016-11-21] MEDS: ACCU-CHEK XX SCH (02:00)
[2016-11-21] MEDS: PANTOPRAZOLE (EC) 40 MG TAB PO SCH ×2 (06:08→17:14)
[2016-11-21] MEDS: INSULIN ASPART [NOVOLOG] 3 ML PEN SC SCH ×4 (08:00→20:51)
[2016-11-21] MEDS: POLYETHYLENE GLYCOL 17 GM PACKET PO SCH ×2 (08:50→20:46)
[2016-11-21] MEDS: AMLODIPINE 5 MG TAB PO SCH (08:51)
[2016-11-21] MEDS: COLLAGENASE 30 GM TUBE TOP SCH (08:51)
[2016-11-21] MEDS: DILTIAZEM (CD) 120 MG CAP PO SCH ×2 (08:51→20:47)
[2016-11-21] MEDS: CALCIUM ACETATE 667 MG CAP PO SCH ×3 (08:51→17:14)
[2016-11-21] MEDS: ASPIRIN 81 MG TAB PO SCH (08:51)
[2016-11-21] MEDS: LOSARTAN 50 MG TAB PO SCH ×2 (08:51→20:47)
[2016-11-21] MEDS: FUROSEMIDE 40 MG TAB PO SCH (08:52)
[2016-11-21] MEDS: MONTELUKAST 10 MG TAB PO SCH (08:52)
[2016-11-21] MEDS: NICOTINE (21 MG/24 HR) PATCH TRANSDERM SCH (08:52)
[2016-11-21] MEDS: PYRIDOXINE 50 MG TAB PO SCH (08:52)
[2016-11-21] MEDS: METOPROLOL (XL) 50 MG TAB PO SCH ×2 (08:53→20:48)
[2016-11-21] MEDS: CINACALCET 30 MG TAB PO SCH (08:53)
[2016-11-21] MEDS: APIXABAN 5 MG TABLET PO SCH ×2 (08:53→20:46)
[2016-11-21] MEDS: SALMETEROL/FLUTICASONE 250/50 INHA INH SCH ×2 (08:53→20:44)
[2016-11-21] MEDS: METOCLOPRAMIDE 5 MG TAB PO SCH ×3 (08:53→17:14)
[2016-11-21] MEDS: TIOTROPIUM 18 MCG CAPSULE INHA DEV INH SCH (08:54)
[2016-11-21] MEDS: DOCUSATE SODIUM 100 MG CAP PO SCH ×2 (09:02→21:57)
[2016-11-21] MEDS: OXYCODONE/ACETAMINOPHEN (10/325) TAB PO PRN ×2 (09:02→17:20)
--- NOTE | 2016-11-21 14:21 | PN ---
Date/Time of Note Date/Time of Note DATE: 11/21/16 TIME: 14:19 Assessment/Plan VTE Prophylaxis VTE Prophylaxis Intervention: SCD's Lines/Catheters IV Catheter Type (from Nrs): [place] [facility] Urinary Cath still in place: No Assessment/Plan Problems: (1) A-fib Status: Chronic Comment: Noted and rate controlled Qualifiers: Atrial fibrillation type: chronic Qualified Code: I48.2 - Chronic atrial fibrillation (2) Diabetes mellitus type 2 in obese Status: Chronic Comment: Stable with adequate sugar (3) Obesity (BMI 30.0-34.9) Status: Chronic Comment: Calorie restriction diet (4) Debility Status: Chronic Comment: Physical therapy is trying to work with the patient. Anticipate discharge for the next 48 hours Subjective 24 Hr Interval Summary Free Text/Dictation Patient resting in bed. No offered complaints Exam/Review of Systems Vital Signs Vitals Vital Signs Date Time Temp Pulse Resp B/P Pulse Ox O2 Delivery O2 Flow Rate FiO2 11/21/16 12:09 81 11/21/16 11:56 98.7 20 105/55 94 11/20/16 23:28 Nasal Cannula 3.0 Intake and Output 11/20/16 11/20/16 11/21/16 15:00 23:00 07:00 Intake Total 480 ml 400 ml Balance 480 ml 400 ml Exam Constitutional: alert Respiratory: clear to auscultation, normal air movement Cardiovascular: irregular rhythm, nl pulses Gastrointestinal: nl liver, spleen, non-tender, soft Results Result Diagram: 11/20/16 0707 11/20/16 0707 Results 24 hrs Laboratory Tests Test 11/20/16 17:52 11/20/16 20:39 11/21/16 08:49 11/21/16 11:42 Bedside Glucose 138 159 126 114 Medications Medications Current Medications Amlodipine Besylate (Norvasc) 5 mg DAILY PO Last administered on 11/21/16 08:51 ; Admin Dose 5 MG; Start 11/11/16 at 09:30 Apixaban (Eliquis) 5 mg BID PO Last administered on 11/21/16 08:53; Admin Dose 5 MG; Start 11/11/16 at 09:30 Aspirin (Aspirin) 81 mg DAILY PO Last administered on 11/21/16 08:51; Admin Dose 81 MG; Start 11/11/16 at 09:30 Atorvastatin Calcium (Lipitor) 40 mg QHS PO Last administered on 11/20/16 20:45 ; Admin Dose 40 MG; Start 11/11/16 at 21:00 Benzonatate (Tessalon) 100 mg Q6 PO Last administered on 11/21/16 11:43; Admin Dose 100 MG; Start 11/11/16 at 12:00 Carisoprodol (Soma) 350 mg Q8 PRN PO MUSCLE SPASMS Last administered on 13:13; Admin Dose 350 MG; Start 11/11/16 at 12:00 Cinacalcet (Sensipar) 30 mg DAILY PO Last administered on 11/21/16 08:53; Admin Dose 30 MG; Start 11/11/16 at 11:00 Furosemide (Lasix) 80 mg DAILY PO Last administered on 11/21/16 08:52; Admin Dose 80 MG; Start 11/11/16 at 09:30 Losartan Potassium (Cozaar) 50 mg BID PO Last administered on 11/21/16 08:51; Admin Dose 50 MG; Start 11/11/16 at 09:30 Metoprolol Succinate (Toprol Xl) 50 mg BID PO Last administered on 11/21/16 08: 53; Admin Dose 50 MG; Start 11/11/16 at 09:30 Montelukast Sodium (Singulair) 10 mg QAM PO Last administered on 11/21/16 08:52 ; Admin Dose 10 MG; Start 11/11/16 at 11:00 Oxycodone/ Acetaminophen (Endocet (10/ 325)) 1 tab Q6 PRN PO PRN Last administered on 11/21/16 09:02; Admin Dose 1 TAB; Start 11/11/16 at 12:00 Pyridoxine HCl (Vitamin B6) 50 mg DAILY PO Last administered on 11/21/16 08:52 ; Admin Dose 50 MG; Start 11/11/16 at 09:30 Tiotropium [place] (Spiriva) 1 inh DAILY INH Last administered on 11/21/16 08: 54; Admin Dose 1 INH; Start 11/11/16 at 11:00 Ondansetron HCl (Zofran Tab) 4 mg Q6H PRN PO NAUSEA AND/OR VOMITING Last administered on 11/16/16 20:49; Admin Dose 4 MG; Start 11/11/16 at 10:00 Salmeterol Xinafoate/ Fluticasone (Advair 250/50 Diskus) 1 inh BID INH Last administered on 11/21/16 08:53; Admin Dose 1 INH; Start 11/11/16 at 11:00 Vancomycin HCl (Vanco Iv Per Pharmacy) PER PHARMACY DOSING NOTE XX ; Start 11/11 at 10:30 Albuterol (Ventolin Hfa) 2 puff Q4H PRN INH AOB; Start 11/11/16 at 10:30 Epoetin Hang (Epogen (Esrd)) 10,000 units TuThSa@17 SC Last administered on 11/20 17:54; Admin Dose 10,000 UNITS; Start 11/11/16 at 17:00 Pantoprazole (Protonix Tab) 40 mg BID@06,18 PO Last administered on 11/21/16 06 :08; Admin Dose 40 MG; Start 11/12/16 at 18:00 Collagenase (Santyl) 1 applic DAILY TOP Last administered on 11/21/16 08:51; Admin Dose 1 APPLIC; Start 11/13/16 at 09:00 Diagnostic Test (Pha) (Accu-Chek) 1 ea 02 XX Last administered on 11/18/16 01: 42; Admin Dose 1 EA; Start 11/14/16 at 02:00 Insulin Detemir (Levemir) 35 unit QHS@20 SC Last administered on 11/20/16 20:52 ; Admin Dose 35 UNIT; Start 11/14/16 at 20:00 Nicotine (Nicoderm 21 Mg/ 24hr) 1 patch DAILY TRANSDERM Last administered on 08:52; Admin Dose 1 PATCH; Start 11/14/16 at 20:00 Docusate Sodium 100 mg 100 mg Q12H PO Last administered on 11/21/16 09:02; Admin Dose 100 MG; Start 11/16/16 at 22:00 Vancomycin HCl (Vancocin) 250 ml @ 125 mls/hr Q96H IVPB Last administered on 18:04; Admin Dose 125 MLS/HR; Start 11/16/16 at 17:00 Miscellaneous Information 1 ea NOTE XX ; Start 11/17/16 at 11:30 Glucose (Glutose) 15 gm Q15M PRN PO DECREASED GLUCOSE; Start 11/17/16 at 11:30 Glucose (Glutose) 22.5 gm Q15M PRN PO DECREASED GLUCOSE; Start 11/17/16 at 11:30 Dextrose (D50w Syringe) 25 ml Q15M PRN IV DECREASED GLUCOSE; Start 11/17/16 at 11:30 Dextrose (D50w Syringe) 50 ml Q15M PRN IV DECREASED GLUCOSE; Start 11/17/16 at 11:30 Glucagon (Glucagen) 1 mg Q15M PRN IM DECREASED GLUCOSE; Start 11/17/16 at 11:30 Glucose (Glutose) 15 gm Q15M PRN BUCCAL DECREASED GLUCOSE; Start 11/17/16 at 11: 30 Polyethylene Glycol (Miralax) 17 gm BID PO Last administered on 11/21/16 08:50 ; Admin Dose 17 GM; Start 11/17/16 at 12:00 Bisacodyl (Dulcolax) 10 mg DAILY PRN PO CONSTIPATION; Start 11/17/16 at 11:30 Gentamicin Sulfate (Gentamicin Iv Per Pharmacy) GENTAMICIN PER PHARMACY NOTE XX Last administered on 11/19/16 15:00; Admin Dose 1 EA; Start 11/17/16 at 14:30 Diltiazem HCl (Cardizem Cd) 120 mg BID PO Last administered on 11/21/16 08:51; Admin Dose 120 MG; Start 11/19/16 at 21:00 Zolpidem Tartrate (Ambien) 5 mg HS PRN PO INSOMNIA Last administered on 22:42; Admin Dose 5 MG; Start 11/19/16 at 21:30 FOUZIA CHAMPION MD Nov 21, 2016 14:21
--- NOTE | 2016-11-21 16:05 | CONS ---
Date/Time of Note Date/Time of Note DATE: 11/21/16 TIME: 16:04 Assessment/Plan Assessment/Plan Chief Complaint/Hosp Course Sleeping, looks comfortable, no fevers Indwelling's: Left upper extremity AV fistula Antimicrobials: Vancomycin, Gentamicin Physical examination: Morbidly obese well-developed elderly woman who is i lethargic, in no distress. Head atraumatic, normocephalic. Sclerae nonicteric. Neck is obese. Chest rise symmetrical, breath sounds diminished basis. Heart S1-S2. Abdomen obese soft bowel tones present. Extremities with bilateral edema, patient has multiple lesions on her lower extremities erythema resolving, she has a left upper thigh wound VAC. ASSESSMENT: 1. Acute encephalopathy, rule out aspiration event, rule out UTI 2. Bilateral lower extremities chronic venous stasis with chronic cellulitis and left hip wound, s/p debridement and wound vac application 10/19/16. 3. End-stage renal disease, on hemodialysis. 4. Morbid obesity. 5. Atrial fibrillation. 6. Leukocytosis==> improving 7. Allergy: Penicillin, Cipro Plan: Remains stable, continue abx, anti-aspiration measures, encourage incentive spirometry, local wound care as per surgical team. staff Problems: Consultation Date/Type/Reason Admit Date/Time Nov 11, 2016 at 06:40 Initial Consult Date 11/12/16 Type of Consultation: Infectious disease Exam/Review of Systems Vital Signs Vitals Vital Signs Date Time Temp Pulse Resp B/P Pulse Ox O2 Delivery O2 Flow Rate FiO2 11/21/16 15:48 98.6 62 18 111/55 94 11/20/16 23:28 Nasal Cannula 3.0 Intake and Output 11/20/16 11/20/16 11/21/16 15:00 23:00 07:00 Intake Total 480 ml 400 ml Balance 480 ml 400 ml Results Result Diagram: 11/20/16 0707 11/20/16 0707 Results 24 hrs Laboratory Tests Test 11/20/16 17:52 11/20/16 20:39 11/21/16 08:49 11/21/16 11:42 Bedside Glucose 138 159 126 114 Medications Medications Current Medications Amlodipine Besylate (Norvasc) 5 mg DAILY PO Last administered on 11/21/16t 08:51 ; Admin Dose 5 MG; Start 11/11/16 at 09:30 Apixaban (Eliquis) 5 mg BID PO Last administered on 11/21/16 08:53; Admin Dose 5 MG; Start 11/11/16 at 09:30 Aspirin (Aspirin) 81 mg DAILY PO Last administered on 11/21/16 08:51; Admin Dose 81 MG; Start 11/11/16 at 09:30 Atorvastatin Calcium (Lipitor) 40 mg QHS PO Last administered on 11/20/16 20:45 ; Admin Dose 40 MG; Start 11/11/16 at 21:00 Benzonatate (Tessalon) 100 mg Q6 PO Last administered on 11/21/16 11:43; Admin Dose 100 MG; Start 11/11/16 at 12:00 Carisoprodol (Soma) 350 mg Q8 PRN PO MUSCLE SPASMS Last administered on 13:13; Admin Dose 350 MG; Start 11/11/16 at 12:00 Cinacalcet (Sensipar) 30 mg DAILY PO Last administered on 11/21/16 08:53; Admin Dose 30 MG; Start 11/11/16 at 11:00 Furosemide (Lasix) 80 mg DAILY PO Last administered on 11/21/16 08:52; Admin Dose 80 MG; Start 11/11/16 at 09:30 Losartan Potassium (Cozaar) 50 mg BID PO Last administered on 11/21/16 08:51; Admin Dose 50 MG; Start 11/11/16 at 09:30 Metoprolol Succinate (Toprol Xl) 50 mg BID PO Last administered on 11/21/16 08: 53; Admin Dose 50 MG; Start 11/11/16 at 09:30 Montelukast Sodium (Singulair) 10 mg QAM PO Last administered on 11/21/16 08:52 ; Admin Dose 10 MG; Start 11/11/16 at 11:00 Oxycodone/ Acetaminophen (Endocet (10/ 325)) 1 tab Q6 PRN PO PRN Last administered on 11/21/16 09:02; Admin Dose 1 TAB; Start 11/11/16 at 12:00 Pyridoxine HCl (Vitamin B6) 50 mg DAILY PO Last administered on 11/21/16 08:52 ; Admin Dose 50 MG; Start 11/11/16 at 09:30 Tiotropium [place] (Spiriva) 1 inh DAILY INH Last administered on 11/21/16 08: 54; Admin Dose 1 INH; Start 11/11/16 at 11:00 Ondansetron HCl (Zofran Tab) 4 mg Q6H PRN PO NAUSEA AND/OR VOMITING Last administered on 11/16/16 20:49; Admin Dose 4 MG; Start 11/11/16 at 10:00 Salmeterol Xinafoate/ Fluticasone (Advair 250/50 Diskus) 1 inh BID INH Last administered on 11/21/16 08:53; Admin Dose 1 INH; Start 11/11/16 at 11:00 Vancomycin HCl (Vanco Iv Per Pharmacy) PER PHARMACY DOSING NOTE XX ; Start 11/11 at 10:30 Albuterol (Ventolin Hfa) 2 puff Q4H PRN INH AOB; Start 11/11/16 at 10:30 Epoetin Hang (Epogen (Esrd)) 10,000 units TuThSa@17 SC Last administered on 11/20 17:54; Admin Dose 10,000 UNITS; Start 11/11/16 at 17:00 Pantoprazole (Protonix Tab) 40 mg BID@06,18 PO Last administered on 11/21/16 06 :08; Admin Dose 40 MG; Start 11/12/16 at 18:00 Collagenase (Santyl) 1 applic DAILY TOP Last administered on 11/21/16 08:51; Admin Dose 1 APPLIC; Start 11/13/16 at 09:00 Diagnostic Test (Pha) (Accu-Chek) 1 ea 02 XX Last administered on 11/18/16 01: 42; Admin Dose 1 EA; Start 11/14/16 at 02:00 Insulin Detemir (Levemir) 35 unit QHS@20 SC Last administered on 11/20/16 20:52 ; Admin Dose 35 UNIT; Start 11/14/16 at 20:00 Nicotine (Nicoderm 21 Mg/ 24hr) 1 patch DAILY TRANSDERM Last administered on 08:52; Admin Dose 1 PATCH; Start 11/14/16 at 20:00 Docusate Sodium 100 mg 100 mg Q12H PO Last administered on 11/21/16 09:02; Admin Dose 100 MG; Start 11/16/16 at 22:00 Vancomycin HCl (Vancocin) 250 ml @ 125 mls/hr Q96H IVPB Last administered on 18:04; Admin Dose 125 MLS/HR; Start 11/16/16 at 17:00 Miscellaneous Information 1 ea NOTE XX ; Start 11/17/16 at 11:30 Glucose (Glutose) 15 gm Q15M PRN PO DECREASED GLUCOSE; Start 11/17/16 at 11:30 Glucose (Glutose) 22.5 gm Q15M PRN PO DECREASED GLUCOSE; Start 11/17/16 at 11:30 Dextrose (D50w Syringe) 25 ml Q15M PRN IV DECREASED GLUCOSE; Start 11/17/16 at 11:30 Dextrose (D50w Syringe) 50 ml Q15M PRN IV DECREASED GLUCOSE; Start 11/17/16 at 11:30 Glucagon (Glucagen) 1 mg Q15M PRN IM DECREASED GLUCOSE; Start 11/17/16 at 11:30 Glucose (Glutose) 15 gm Q15M PRN BUCCAL DECREASED GLUCOSE; Start 11/17/16 at 11: 30 Polyethylene Glycol (Miralax) 17 gm BID PO Last administered on 11/21/16 08:50 ; Admin Dose 17 GM; Start 11/17/16 at 12:00 Bisacodyl (Dulcolax) 10 mg DAILY PRN PO CONSTIPATION; Start 11/17/16 at 11:30 Gentamicin Sulfate (Gentamicin Iv Per Pharmacy) GENTAMICIN PER PHARMACY NOTE XX Last administered on 11/19/16 15:00; Admin Dose 1 EA; Start 11/17/16 at 14:30 Diltiazem HCl (Cardizem Cd) 120 mg BID PO Last administered on 11/21/16 08:51; Admin Dose 120 MG; Start 11/19/16 at 21:00 Zolpidem Tartrate (Ambien) 5 mg HS PRN PO INSOMNIA Last administered on 22:42; Admin Dose 5 MG; Start 11/19/16 at 21:30 TODD RAMIRES NP Nov 21, 2016 16:04
[2016-11-21] MEDS: INSULIN DETEMIR [LEVEMIR] 3ML CART SC SCH (20:37)
[2016-11-21] MEDS: CARISOPRODOL 350 MG TAB PO PRN (20:45)
[2016-11-21] MEDS: ALBUTEROL 18 GM INHALER INH PRN (20:46)
[2016-11-21] MEDS: ATORVASTATIN 40 MG TAB PO SCH (20:46)
[2016-11-21] MEDS ORDERED: GUAIFENESIN/CODEINE 5ML CUP PO PRN (21:20)
[2016-11-21] MEDS: LORAZEPAM 2 MG INJ IV PRN (21:56)
[2016-11-21] MEDS: GUAIFENESIN/CODEINE 5ML CUP PO PRN (21:56)
[2016-11-22] VITALS (18 sets, daily range): BP systolic 90–132; BP diastolic 49–71; PULSE 59–89; RESP 18–20
[2016-11-22] MEDS: BENZONATATE 100 MG CAP PO SCH ×4 (00:21→17:17)
[2016-11-22] MEDS: OXYCODONE/ACETAMINOPHEN (10/325) TAB PO PRN ×3 (00:22→16:24)
[2016-11-22] MEDS: ACCU-CHEK XX SCH (02:00)
[2016-11-22] MEDS: ZOLPIDEM 5 MG TAB PO PRN (02:15)
[2016-11-22] MEDS: PANTOPRAZOLE (EC) 40 MG TAB PO SCH ×2 (06:11→17:17)
[2016-11-22] MEDS: INSULIN ASPART [NOVOLOG] 3 ML PEN SC SCH ×4 (08:00→21:00)
[2016-11-22] MEDS: ALBUTEROL 18 GM INHALER INH PRN (08:41)
[2016-11-22] MEDS: SALMETEROL/FLUTICASONE 250/50 INHA INH SCH ×2 (08:41→21:18)
[2016-11-22] MEDS: NICOTINE (21 MG/24 HR) PATCH TRANSDERM SCH (08:42)
[2016-11-22] MEDS: COLLAGENASE 30 GM TUBE TOP SCH (08:42)
[2016-11-22] MEDS: GUAIFENESIN/CODEINE 5ML CUP PO PRN (08:42)
[2016-11-22] MEDS: LORAZEPAM 2 MG INJ IV PRN ×2 (08:42→21:34)
[2016-11-22] MEDS: METOCLOPRAMIDE 5 MG TAB PO SCH ×3 (08:43→17:17)
[2016-11-22] MEDS: CALCIUM ACETATE 667 MG CAP PO SCH ×3 (08:43→17:17)
[2016-11-22] MEDS: ASPIRIN 81 MG TAB PO SCH (08:43)
[2016-11-22] MEDS: APIXABAN 5 MG TABLET PO SCH ×2 (08:44→21:15)
[2016-11-22] MEDS: LOSARTAN 50 MG TAB PO SCH ×2 (08:44→21:28)
[2016-11-22] MEDS: DILTIAZEM (CD) 120 MG CAP PO SCH ×2 (08:44→21:18)
[2016-11-22] MEDS: POLYETHYLENE GLYCOL 17 GM PACKET PO SCH ×2 (08:45→21:00)
[2016-11-22] MEDS: FUROSEMIDE 40 MG TAB PO SCH (08:45)
[2016-11-22] MEDS: CARISOPRODOL 350 MG TAB PO PRN (08:45)
[2016-11-22] MEDS: MONTELUKAST 10 MG TAB PO SCH (08:45)
[2016-11-22] MEDS: AMLODIPINE 5 MG TAB PO SCH (08:45)
[2016-11-22] MEDS: ONDANSETRON 4 MG TAB PO PRN (08:46)
[2016-11-22] MEDS: PYRIDOXINE 50 MG TAB PO SCH (08:46)
[2016-11-22] MEDS: CINACALCET 30 MG TAB PO SCH (08:46)
[2016-11-22] MEDS: DOCUSATE SODIUM 100 MG CAP PO SCH ×3 (08:46→21:27)
[2016-11-22] MEDS: METOPROLOL (XL) 50 MG TAB PO SCH ×2 (08:52→21:19)
--- NOTE | 2016-11-22 10:51 | CONS ---
Date/Time of Note Date/Time of Note DATE: 11/22/16 TIME: 10:50 Assessment/Plan Assessment/Plan Chief Complaint/Hosp Course - ESRD on Hemodialysis TTS @ [facility] - POST FALL - ACUTE ANEMIA - Hx of Cellulitis - CAD/CHF - Hx of Hypertension PLAN: Bedside dialysis plan for tomorrow Aim for UF ~ 2 Kg Monitor H/H Regular HD days are TTS Started EPOGEN Iron Problems: Consultation Date/Type/Reason Admit Date/Time Nov 11, 2016 at 06:40 Initial Consult Date 11/12/16 Type of Consultation: Nephrology Reason for Consultation ESRD 24 HR Interval Summary Constitutional: improved, no complaints Exam/Review of Systems Vital Signs Vitals Vital Signs Date Time Temp Pulse Resp B/P Pulse Ox O2 Delivery O2 Flow Rate FiO2 11/22/16 10:20 65 18 11/22/16 07:30 98.6 99/55 93 11/20/16 23:28 Nasal Cannula 3.0 Intake and Output 11/21/16 11/21/16 11/22/16 15:00 23:00 07:00 Intake Total 500 ml Balance 500 ml Exam Constitutional: alert, oriented Head: normocephalic Neck: jvd Respiratory: crackles/rales Cardiovascular: edema, regular rate and rhythm, systolic murmur Gastrointestinal: soft Results Result Diagram: 11/20/16 0707 11/20/16 0707 Results 24 hrs Laboratory Tests Test 11/21/16 11:42 11/21/16 16:40 11/21/16 20:19 11/22/16 02:14 Bedside Glucose 114 120 188 145 Test 11/22/16 08:38 Bedside Glucose 101 Medications Medications Current Medications Amlodipine Besylate (Norvasc) 5 mg DAILY PO Last administered on 11/21/16 08:51 ; Admin Dose 5 MG; Start 11/11/16 at 09:30 Apixaban (Eliquis) 5 mg BID PO Last administered on 11/22/16 08:44; Admin Dose 5 MG; Start 11/11/16 at 09:30 Aspirin (Aspirin) 81 mg DAILY PO Last administered on 11/22/16 08:43; Admin Dose 81 MG; Start 11/11/16 at 09:30 Atorvastatin Calcium (Lipitor) 40 mg QHS PO Last administered on 11/21/16 20:46 ; Admin Dose 40 MG; Start 11/11/16 at 21:00 Benzonatate (Tessalon) 100 mg Q6 PO Last administered on 11/22/16 06:12; Admin Dose 100 MG; Start 11/11/16 at 12:00 Carisoprodol (Soma) 350 mg Q8 PRN PO MUSCLE SPASMS Last administered on 08:45; Admin Dose 350 MG; Start 11/11/16 at 12:00 Cinacalcet (Sensipar) 30 mg DAILY PO Last administered on 11/22/16 08:46; Admin Dose 30 MG; Start 11/11/16 at 11:00 Furosemide (Lasix) 80 mg DAILY PO Last administered on 11/22/16 08:45; Admin Dose 80 MG; Start 11/11/16 at 09:30 Losartan Potassium (Cozaar) 50 mg BID PO Last administered on 11/21/16 20:47; Admin Dose 50 MG; Start 11/11/16 at 09:30 Metoprolol Succinate (Toprol Xl) 50 mg BID PO Last administered on 11/22/16 08 :52; Admin Dose 50 MG; Start 11/11/16 at 09:30 Montelukast Sodium (Singulair) 10 mg QAM PO Last administered on 11/22/16 08: 45; Admin Dose 10 MG; Start 11/11/16 at 11:00 Oxycodone/ Acetaminophen (Endocet (10/ 325)) 1 tab Q6 PRN PO PRN Last administered on 11/22/16 08:46; Admin Dose 1 TAB; Start 11/11/16 at 12:00 Pyridoxine HCl (Vitamin B6) 50 mg DAILY PO Last administered on 11/22/16 08:46 ; Admin Dose 50 MG; Start 11/11/16 at 09:30 Tiotropium [place] (Spiriva) 1 inh DAILY INH Last administered on 11/21/16 08: 54; Admin Dose 1 INH; Start 11/11/16 at 11:00 Ondansetron HCl (Zofran Tab) 4 mg Q6H PRN PO NAUSEA AND/OR VOMITING Last administered on 11/22/16 08:46; Admin Dose 4 MG; Start 11/11/16 at 10:00 Salmeterol Xinafoate/ Fluticasone (Advair 250/50 Diskus) 1 inh BID INH Last administered on 11/22/16 08:41; Admin Dose 1 INH; Start 11/11/16 at 11:00 Vancomycin HCl (Vanco Iv Per Pharmacy) PER PHARMACY DOSING NOTE XX ; Start 11/11 at 10:30 Albuterol (Ventolin Hfa) 2 puff Q4H PRN INH AOB Last administered on 11/22/16 08:41; Admin Dose 2 PUFF; Start 11/11/16 at 10:30 Epoetin Hang (Epogen (Esrd)) 10,000 units TuThSa@17 SC Last administered on 11/20 17:54; Admin Dose 10,000 UNITS; Start 11/11/16 at 17:00 Pantoprazole (Protonix Tab) 40 mg BID@06,18 PO Last administered on 11/22/16 06:11; Admin Dose 40 MG; Start 11/12/16 at 18:00 Collagenase (Santyl) 1 applic DAILY TOP Last administered on 11/21/16 08:51; Admin Dose 1 APPLIC; Start 11/13/16 at 09:00 Diagnostic Test (Pha) (Accu-Chek) 1 ea 02 XX Last administered on 11/18/16 01: 42; Admin Dose 1 EA; Start 11/14/16 at 02:00 Insulin Detemir (Levemir) 35 unit QHS@20 SC Last administered on 11/21/16 20:37 ; Admin Dose 35 UNIT; Start 11/14/16 at 20:00 Nicotine (Nicoderm 21 Mg/ 24hr) 1 patch DAILY TRANSDERM Last administered on 08:42; Admin Dose 1 PATCH; Start 11/14/16 at 20:00 Docusate Sodium 100 mg 100 mg Q12H PO Last administered on 11/21/16 21:57; Admin Dose 100 MG; Start 11/16/16 at 22:00 Vancomycin HCl (Vancocin) 250 ml @ 125 mls/hr Q96H IVPB Last administered on 18:04; Admin Dose 125 MLS/HR; Start 11/16/16 at 17:00 Miscellaneous Information 1 ea NOTE XX ; Start 11/17/16 at 11:30 Glucose (Glutose) 15 gm Q15M PRN PO DECREASED GLUCOSE; Start 11/17/16 at 11:30 Glucose (Glutose) 22.5 gm Q15M PRN PO DECREASED GLUCOSE; Start 11/17/16 at 11:30 Dextrose (D50w Syringe) 25 ml Q15M PRN IV DECREASED GLUCOSE; Start 11/17/16 at 11:30 Dextrose (D50w Syringe) 50 ml Q15M PRN IV DECREASED GLUCOSE; Start 11/17/16 at 11:30 Glucagon (Glucagen) 1 mg Q15M PRN IM DECREASED GLUCOSE; Start 11/17/16 at 11:30 Glucose (Glutose) 15 gm Q15M PRN BUCCAL DECREASED GLUCOSE; Start 11/17/16 at 11: 30 Polyethylene Glycol (Miralax) 17 gm BID PO Last administered on 11/22/16 08:45 ; Admin Dose 17 GM; Start 11/17/16 at 12:00 Bisacodyl (Dulcolax) 10 mg DAILY PRN PO CONSTIPATION; Start 11/17/16 at 11:30 Gentamicin Sulfate (Gentamicin Iv Per Pharmacy) GENTAMICIN PER PHARMACY NOTE XX Last administered on 11/19/16 15:00; Admin Dose 1 EA; Start 11/17/16 at 14:30 Diltiazem HCl (Cardizem Cd) 120 mg BID PO Last administered on 11/22/16 08:44 ; Admin Dose 120 MG; Start 11/19/16 at 21:00 Zolpidem Tartrate (Ambien) 5 mg HS PRN PO INSOMNIA Last administered on 02:15; Admin Dose 5 MG; Start 11/19/16 at 21:30 Lorazepam (Ativan) 1 mg Q6H PRN IV AGITATION/ANXIETY Last administered on 08:42; Admin Dose 1 MG; Start 11/21/16 at 21:15 Guaifenesin/ Codeine Phosphate (Robitussin Ac Liquid Cup) 5 ml Q4H PRN PO COUGH Last administered on 11/22/16 08:42; Admin Dose 5 ML; Start 11/21/16 at 21 :30 BECKY GAMBLE MD Nov 22, 2016 10:51
[2016-11-22] MEDS: TIOTROPIUM 18 MCG CAPSULE INHA DEV INH SCH (12:33)
--- NOTE | 2016-11-22 13:03 | CONS ---
Date/Time of Note Date/Time of Note DATE: 11/22/16 TIME: 13:02 Assessment/Plan Assessment/Plan Chief Complaint/Hosp Course In hemodialysis, sleeping, looks comfortable, no fevers Indwelling's: Left upper extremity AV fistula Antimicrobials: Vancomycin, Gentamicin Physical examination: Morbidly obese well-developed elderly woman who is i lethargic, in no distress. Head atraumatic, normocephalic. Sclerae nonicteric. Neck is obese. Chest rise symmetrical, breath sounds diminished basis. Heart S1-S2. Abdomen obese soft bowel tones present. Extremities with bilateral edema, patient has multiple lesions on her lower extremities erythema resolving, she has a left upper thigh wound VAC. ASSESSMENT: 1. Acute encephalopathy, rule out aspiration event, rule out UTI 2. Bilateral lower extremities chronic venous stasis with chronic cellulitis and left hip wound, s/p debridement and wound vac application 10/19/16. 3. End-stage renal disease, on hemodialysis. 4. Morbid obesity. 5. Atrial fibrillation. 6. Leukocytosis==> improving 7. Allergy: Penicillin, Cipro Plan: Remains stable, continue abx, anti-aspiration measures, encourage incentive spirometry, local wound care as per surgical team. DW staff Problems: Consultation Date/Type/Reason Admit Date/Time Nov 11, 2016 at 06:40 Initial Consult Date 11/12/16 Type of Consultation: ID Exam/Review of Systems Vital Signs Vitals Vital Signs Date Time Temp Pulse Resp B/P Pulse Ox O2 Delivery O2 Flow Rate FiO2 11/22/16 12:47 61 11/22/16 11:46 98.2 20 105/49 94 11/20/16 23:28 Nasal Cannula 3.0 Intake and Output 11/21/16 11/21/16 11/22/16 15:00 23:00 07:00 Intake Total 500 ml Balance 500 ml Results Result Diagram: 11/20/16 0707 11/20/16 0707 Results 24 hrs Laboratory Tests Test 11/21/16 16:40 11/21/16 20:19 11/22/16 02:14 11/22/16 08:38 Bedside Glucose 120 188 145 101 Test 11/22/16 12:30 Bedside Glucose 141 Medications Medications Current Medications Amlodipine Besylate (Norvasc) 5 mg DAILY PO Last administered on 11/21/16t 08:51 ; Admin Dose 5 MG; Start 11/11/16 at 09:30 Apixaban (Eliquis) 5 mg BID PO Last administered on 11/22/16 08:44; Admin Dose 5 MG; Start 11/11/16 at 09:30 Aspirin (Aspirin) 81 mg DAILY PO Last administered on 11/22/16 08:43; Admin Dose 81 MG; Start 11/11/16 at 09:30 Atorvastatin Calcium (Lipitor) 40 mg QHS PO Last administered on 11/21/16 20:46 ; Admin Dose 40 MG; Start 11/11/16 at 21:00 Benzonatate (Tessalon) 100 mg Q6 PO Last administered on 11/22/16 12:33; Admin Dose 100 MG; Start 11/11/16 at 12:00 Carisoprodol (Soma) 350 mg Q8 PRN PO MUSCLE SPASMS Last administered on 08:45; Admin Dose 350 MG; Start 11/11/16 at 12:00 Cinacalcet (Sensipar) 30 mg DAILY PO Last administered on 11/22/16 08:46; Admin Dose 30 MG; Start 11/11/16 at 11:00 Furosemide (Lasix) 80 mg DAILY PO Last administered on 11/22/16 08:45; Admin Dose 80 MG; Start 11/11/16 at 09:30 Losartan Potassium (Cozaar) 50 mg BID PO Last administered on 11/21/16 20:47; Admin Dose 50 MG; Start 11/11/16 at 09:30 Metoprolol Succinate (Toprol Xl) 50 mg BID PO Last administered on 11/22/16 08 :52; Admin Dose 50 MG; Start 11/11/16 at 09:30 Montelukast Sodium (Singulair) 10 mg QAM PO Last administered on 11/22/16 08: 45; Admin Dose 10 MG; Start 11/11/16 at 11:00 Oxycodone/ Acetaminophen (Endocet (10/ 325)) 1 tab Q6 PRN PO PRN Last administered on 11/22/16 08:46; Admin Dose 1 TAB; Start 11/11/16 at 12:00 Pyridoxine HCl (Vitamin B6) 50 mg DAILY PO Last administered on 11/22/16 08:46 ; Admin Dose 50 MG; Start 11/11/16 at 09:30 Tiotropium [place] (Spiriva) 1 inh DAILY INH Last administered on 11/22/16 12: 33; Admin Dose 1 INH; Start 11/11/16 at 11:00 Ondansetron HCl (Zofran Tab) 4 mg Q6H PRN PO NAUSEA AND/OR VOMITING Last administered on 11/22/16 08:46; Admin Dose 4 MG; Start 11/11/16 at 10:00 Salmeterol Xinafoate/ Fluticasone (Advair 250/50 Diskus) 1 inh BID INH Last administered on 11/22/16 08:41; Admin Dose 1 INH; Start 11/11/16 at 11:00 Vancomycin HCl (Vanco Iv Per Pharmacy) PER PHARMACY DOSING NOTE XX ; Start 11/11 at 10:30 Albuterol (Ventolin Hfa) 2 puff Q4H PRN INH AOB Last administered on 11/22/16 08:41; Admin Dose 2 PUFF; Start 11/11/16 at 10:30 Epoetin Hang (Epogen (Esrd)) 10,000 units TuThSa@17 SC Last administered on 11/20 17:54; Admin Dose 10,000 UNITS; Start 11/11/16 at 17:00 Pantoprazole (Protonix Tab) 40 mg BID@06,18 PO Last administered on 11/22/16 06:11; Admin Dose 40 MG; Start 11/12/16 at 18:00 Collagenase (Santyl) 1 applic DAILY TOP Last administered on 11/21/16 08:51; Admin Dose 1 APPLIC; Start 11/13/16 at 09:00 Diagnostic Test (Pha) (Accu-Chek) 1 ea 02 XX Last administered on 11/18/16 01: 42; Admin Dose 1 EA; Start 11/14/16 at 02:00 Insulin Detemir (Levemir) 35 unit QHS@20 SC Last administered on 11/21/16 20:37 ; Admin Dose 35 UNIT; Start 11/14/16 at 20:00 Nicotine (Nicoderm 21 Mg/ 24hr) 1 patch DAILY TRANSDERM Last administered on 08:42; Admin Dose 1 PATCH; Start 11/14/16 at 20:00 Docusate Sodium 100 mg 100 mg Q12H PO Last administered on 11/21/16 21:57; Admin Dose 100 MG; Start 11/16/16 at 22:00 Vancomycin HCl (Vancocin) 250 ml @ 125 mls/hr Q96H IVPB Last administered on 18:04; Admin Dose 125 MLS/HR; Start 11/16/16 at 17:00 Miscellaneous Information 1 ea NOTE XX ; Start 11/17/16 at 11:30 Glucose (Glutose) 15 gm Q15M PRN PO DECREASED GLUCOSE; Start 11/17/16 at 11:30 Glucose (Glutose) 22.5 gm Q15M PRN PO DECREASED GLUCOSE; Start 11/17/16 at 11:30 Dextrose (D50w Syringe) 25 ml Q15M PRN IV DECREASED GLUCOSE; Start 11/17/16 at 11:30 Dextrose (D50w Syringe) 50 ml Q15M PRN IV DECREASED GLUCOSE; Start 11/17/16 at 11:30 Glucagon (Glucagen) 1 mg Q15M PRN IM DECREASED GLUCOSE; Start 11/17/16 at 11:30 Glucose (Glutose) 15 gm Q15M PRN BUCCAL DECREASED GLUCOSE; Start 11/17/16 at 11: 30 Polyethylene Glycol (Miralax) 17 gm BID PO Last administered on 11/22/16 08:45 ; Admin Dose 17 GM; Start 11/17/16 at 12:00 Bisacodyl (Dulcolax) 10 mg DAILY PRN PO CONSTIPATION; Start 11/17/16 at 11:30 Gentamicin Sulfate (Gentamicin Iv Per Pharmacy) GENTAMICIN PER PHARMACY NOTE XX Last administered on 11/19/16 15:00; Admin Dose 1 EA; Start 11/17/16 at 14:30 Diltiazem HCl (Cardizem Cd) 120 mg BID PO Last administered on 11/22/16 08:44 ; Admin Dose 120 MG; Start 11/19/16 at 21:00 Zolpidem Tartrate (Ambien) 5 mg HS PRN PO INSOMNIA Last administered on 02:15; Admin Dose 5 MG; Start 11/19/16 at 21:30 Lorazepam (Ativan) 1 mg Q6H PRN IV AGITATION/ANXIETY Last administered on 08:42; Admin Dose 1 MG; Start 11/21/16 at 21:15 Guaifenesin/ Codeine Phosphate (Robitussin Ac Liquid Cup) 5 ml Q4H PRN PO COUGH Last administered on 11/22/16t 08:42; Admin Dose 5 ML; Start 11/21/16 at 21 :30 TODD RAMIRES NP Nov 22, 2016 13:03
--- NOTE | 2016-11-22 13:47 | PN ---
Date/Time of Note Date/Time of Note DATE: 11/22/16 TIME: 13:36 Assessment/Plan VTE Prophylaxis VTE Prophylaxis Intervention: other Lines/Catheters IV Catheter Type (from [facility]): [place] [facility] Urinary Cath still in place: No Assessment/Plan Assessment/Plan 1. Pneumonia, on antibiotics(vancomycin/gentamicin), speech for swallow evaluation r/o aspiration 2. UTI, on antibiotics 3. Bilateral lower extremities chronic venous stasis with chronic cellulitis and left hip wound, s/p debridement and wound vac application 10/19/16, wound care and antibiotics 4. Diabetes mellitus, on insulin 5. Chronic atrial fibrillation, controlled rate, on cardizem and eliquis 6. Hypertension, controlled 7. End-stage renal disease, on hemodialysis TTS 8. Normocytic anemia, on epogen 9. Allergy: Penicillin, Cipro Subjective 24 Hr Interval Summary Free Text/Dictation lethargic, confused Exam/Review of Systems Vital Signs Vitals Vital Signs Date Time Temp Pulse Resp B/P Pulse Ox O2 Delivery O2 Flow Rate FiO2 11/22/16 12:47 61 11/22/16 11:46 98.2 20 105/49 94 11/20/16 23:28 Nasal Cannula 3.0 Intake and Output 11/21/16 11/21/16 11/22/16 15:00 23:00 07:00 Intake Total 500 ml Balance 500 ml Exam Constitutional: obese, other (confused and lethargic) Head: atraumatic, normocephalic Eyes: EOMI, PERRL, nl conjunctiva, nl lids, nl sclera ENMT: mucosa pink and moist, nl external ears & nose, nl lips & teeth, nl nasal mucosa & septum Neck: non-tender, supple Respiratory: clear to auscultation, normal air movement Cardiovascular: irregular rhythm, nl pulses Gastrointestinal: nl liver, spleen, non-tender, soft, No ascites, No bowel sounds, No distended, No firm, No hepatomegaly, No mass , No other, No rebound or guarding, No splenomegaly, No surgical scars, No tender Extremities: edema (edema on both lower extremities) Neurological: [employer] II-XII intact, confused, lethargic Results Result Diagram: 11/20/16 0707 11/20/16 0707 Results 24 hrs Laboratory Tests Test 11/21/16 16:40 11/21/16 20:19 11/22/16 02:14 11/22/16 08:38 Bedside Glucose 120 188 145 101 Test 11/22/16 12:30 Bedside Glucose 141 Medications Medications Current Medications Amlodipine Besylate (Norvasc) 5 mg DAILY PO Last administered on 11/21/16 08:51 ; Admin Dose 5 MG; Start 11/11/16 at 09:30 Apixaban (Eliquis) 5 mg BID PO Last administered on 11/22/16 08:44; Admin Dose 5 MG; Start 11/11/16 at 09:30 Aspirin (Aspirin) 81 mg DAILY PO Last administered on 11/22/16 08:43; Admin Dose 81 MG; Start 11/11/16 at 09:30 Atorvastatin Calcium (Lipitor) 40 mg QHS PO Last administered on 11/21/16 20:46 ; Admin Dose 40 MG; Start 11/11/16 at 21:00 Benzonatate (Tessalon) 100 mg Q6 PO Last administered on 11/22/16 12:33; Admin Dose 100 MG; Start 11/11/16 at 12:00 Carisoprodol (Soma) 350 mg Q8 PRN PO MUSCLE SPASMS Last administered on 08:45; Admin Dose 350 MG; Start 11/11/16 at 12:00 Cinacalcet (Sensipar) 30 mg DAILY PO Last administered on 11/22/16 08:46; Admin Dose 30 MG; Start 11/11/16 at 11:00 Furosemide (Lasix) 80 mg DAILY PO Last administered on 11/22/16 08:45; Admin Dose 80 MG; Start 11/11/16 at 09:30 Losartan Potassium (Cozaar) 50 mg BID PO Last administered on 11/21/16 20:47; Admin Dose 50 MG; Start 11/11/16 at 09:30 Metoprolol Succinate (Toprol Xl) 50 mg BID PO Last administered on 11/22/16 08 :52; Admin Dose 50 MG; Start 11/11/16 at 09:30 Montelukast Sodium (Singulair) 10 mg QAM PO Last administered on 11/22/16 08: 45; Admin Dose 10 MG; Start 11/11/16 at 11:00 Oxycodone/ Acetaminophen (Endocet (10/ 325)) 1 tab Q6 PRN PO PRN Last administered on 11/22/16 08:46; Admin Dose 1 TAB; Start 11/11/16 at 12:00 Pyridoxine HCl (Vitamin B6) 50 mg DAILY PO Last administered on 11/22/16 08:46 ; Admin Dose 50 MG; Start 11/11/16 at 09:30 Tiotropium [place] (Spiriva) 1 inh DAILY INH Last administered on 11/22/16 12: 33; Admin Dose 1 INH; Start 11/11/16 at 11:00 Ondansetron HCl (Zofran Tab) 4 mg Q6H PRN PO NAUSEA AND/OR VOMITING Last administered on 11/22/16 08:46; Admin Dose 4 MG; Start 11/11/16 at 10:00 Salmeterol Xinafoate/ Fluticasone (Advair 250/50 Diskus) 1 inh BID INH Last administered on 11/22/16 08:41; Admin Dose 1 INH; Start 11/11/16 at 11:00 Vancomycin HCl (Vanco Iv Per Pharmacy) PER PHARMACY DOSING NOTE XX ; Start 11/11 at 10:30 Albuterol (Ventolin Hfa) 2 puff Q4H PRN INH AOB Last administered on 11/22/16 08:41; Admin Dose 2 PUFF; Start 11/11/16 at 10:30 Epoetin [place] (Epogen (Esrd)) 10,000 units TuThSa@17 SC Last administered on 11/20 17:54; Admin Dose 10,000 UNITS; Start 11/11/16 at 17:00 Pantoprazole (Protonix Tab) 40 mg BID@06,18 PO Last administered on 11/22/16 06:11; Admin Dose 40 MG; Start 11/12/16 at 18:00 Collagenase (Santyl) 1 applic DAILY TOP Last administered on 11/21/16 08:51; Admin Dose 1 APPLIC; Start 11/13/16 at 09:00 Diagnostic Test (Pha) (Accu-Chek) 1 ea 02 XX Last administered on 11/18/16 01: 42; Admin Dose 1 EA; Start 11/14/16 at 02:00 Insulin Detemir (Levemir) 35 unit QHS@20 SC Last administered on 11/21/16 20:37 ; Admin Dose 35 UNIT; Start 11/14/16 at 20:00 Nicotine (Nicoderm 21 Mg/ 24hr) 1 patch DAILY TRANSDERM Last administered on 08:42; Admin Dose 1 PATCH; Start 11/14/16 at 20:00 Docusate Sodium 100 mg 100 mg Q12H PO Last administered on 11/21/16 21:57; Admin Dose 100 MG; Start 11/16/16 at 22:00 Vancomycin HCl (Vancocin) 250 ml @ 125 mls/hr Q96H IVPB Last administered on 18:04; Admin Dose 125 MLS/HR; Start 11/16/16 at 17:00 Miscellaneous Information 1 ea NOTE XX ; Start 11/17/16 at 11:30 Glucose (Glutose) 15 gm Q15M PRN PO DECREASED GLUCOSE; Start 11/17/16 at 11:30 Glucose (Glutose) 22.5 gm Q15M PRN PO DECREASED GLUCOSE; Start 11/17/16 at 11:30 Dextrose (D50w Syringe) 25 ml Q15M PRN IV DECREASED GLUCOSE; Start 11/17/16 at 11:30 Dextrose (D50w Syringe) 50 ml Q15M PRN IV DECREASED GLUCOSE; Start 11/17/16 at 11:30 Glucagon (Glucagen) 1 mg Q15M PRN IM DECREASED GLUCOSE; Start 11/17/16 at 11:30 Glucose (Glutose) 15 gm Q15M PRN BUCCAL DECREASED GLUCOSE; Start 11/17/16 at 11: 30 Polyethylene Glycol (Miralax) 17 gm BID PO Last administered on 11/22/16 08:45 ; Admin Dose 17 GM; Start 11/17/16 at 12:00 Bisacodyl (Dulcolax) 10 mg DAILY PRN PO CONSTIPATION; Start 11/17/16 at 11:30 Gentamicin Sulfate (Gentamicin Iv Per Pharmacy) GENTAMICIN PER PHARMACY NOTE XX Last administered on 11/19/16 15:00; Admin Dose 1 EA; Start 11/17/16 at 14:30 Diltiazem HCl (Cardizem Cd) 120 mg BID PO Last administered on 11/22/16 08:44 ; Admin Dose 120 MG; Start 11/19/16 at 21:00 Zolpidem Tartrate (Ambien) 5 mg HS PRN PO INSOMNIA Last administered on 02:15; Admin Dose 5 MG; Start 11/19/16 at 21:30 Lorazepam (Ativan) 1 mg Q6H PRN IV AGITATION/ANXIETY Last administered on 08:42; Admin Dose 1 MG; Start 11/21/16 at 21:15 Guaifenesin/ Codeine Phosphate (Robitussin Ac Liquid Cup) 5 ml Q4H PRN PO COUGH Last administered on 11/22/16 08:42; Admin Dose 5 ML; Start 11/21/16 at 21 :30 VIPUL LANTIGUA MD Nov 22, 2016 13:47
--- NOTE | 2016-11-22 15:46 | RADRPT ---
PROCEDURE: US bilateral lower extremity veins. CLINICAL INDICATION: Bilateral leg pain and swelling. TECHNIQUE: Multiple longitudinal and transverse images of the bilateral lower extremity veins were obtained with munguia scale and color Doppler imaging. The common femoral vein, femoral vein, and popl iteal vein were evaluated. 2D grayscale measurements with compression sonography, color Doppler, and pulsed Doppler with augmentation. COMPARISON: No prior studies are available for comparison. FINDINGS: The bilateral common femoral, femoral and popliteal veins are normally compressible throughout. Col or flow demonstrates normal filling of the vessels. Normal waveforms are visualized and there is no rmal response to augmentation. IMPRESSION: 1. No evidence of deep vein thrombosis involving either lower extremity. RPTAT: QQ .Bandar Adamson MD, MD Date Time Electronically viewed and signed by .Bandar Adamson MD, on 11/22/2016 15:46 .R/
[2016-11-22] MEDS: ATORVASTATIN 40 MG TAB PO SCH (21:15)
[2016-11-22] MEDS: INSULIN DETEMIR [LEVEMIR] 3ML CART SC SCH (21:22)
--- NOTE | 2016-11-22 22:38 | RADRPT ---
PROCEDURE: XR Chest. CLINICAL INDICATION: Shortness of breath. TECHNIQUE: Single frontal view. COMPARISON: 11/17/2016. FINDINGS: There is air space disease at the right lung base consistent with pneumonia. The lungs are otherwis e clear The heart is enlarged. There is calcification in the aorta consistent with atherosclerosis. There is a small right pleural effusion. There is no left pleural effusion. There is no pneumothorax. IMPRESSION: 1. Right basilar pneumonia. 2. Cardiomegaly and atherosclerosis. 3. Small right pleural effusion. RPTAT: QQ .Bandar Adamson MD, MD Date Time Electronically viewed and signed by .Bandar Adamson MD, on 11/22/2016 22:38 .R/
[2016-11-23] VITALS (12 sets, daily range): BP systolic 99–128; BP diastolic 53–70; PULSE 70–81; RESP 18–19
[2016-11-23] MEDS: BENZONATATE 100 MG CAP PO SCH ×4 (00:28→17:40)
[2016-11-23] MEDS: ACCU-CHEK XX SCH (02:00)
[2016-11-23] MEDS: ZOLPIDEM 5 MG TAB PO PRN (02:17)
[2016-11-23] MEDS: LORAZEPAM 2 MG INJ IV PRN (06:13)
[2016-11-23] MEDS: PANTOPRAZOLE (EC) 40 MG TAB PO SCH ×2 (06:13→17:30)
[2016-11-23 07:57] LABS: ADD SCAN DIFF NO
[2016-11-23 08:11] LABS: ABNORMAL IP MESSAGE 1; BASOPHIL # 0.1 10^3/ul (0.0-0.1); BASOPHILS % 0.5 % (0.0-2.0); EOSINOPHILS # 0.2 10^3/ul (0.0-0.5); LYMPHOCYTES # 1.2 10^3/ul (0.8-2.9); LYMPHOCYTES % 8.1 % (15.0-51.0); MEAN CORPUSCULAR HEMOGLOBIN 29.2 pg (29.0-33.0); MEAN CORPUSCULAR HGB CONC 28.6 g/dl (32.0-37.0); MEAN CORPUSCULAR VOLUME 102.2 fl (82.0-101.0); MEAN PLATELET VOLUME 9.3 fl (7.4-10.4); MONOCYTE # 1.8 10^3/ul (0.3-0.9); MONOCYTES % 11.6 % (0.0-11.0); NEUTROPHIL # 11.4 10^3/ul (1.6-7.5); NEUTROPHILS % 74.5 % (39.0-77.0); NUCLEATED RED BLOOD CELLS # 0.2 10^3/ul (0.0-0.0); PLATELET COUNT 476 10^3/UL (140-415); RED BLOOD COUNT 2.74 10^6/ul (4.20-5.40); RED CELL DISTRIBUTION WIDTH 19.4 % (11.5-14.5); WHITE BLOOD COUNT 15.3 10^3/ul (4.8-10.8)
[2016-11-23] MEDS: METOCLOPRAMIDE 5 MG TAB PO SCH ×3 (08:25→17:30)
[2016-11-23] MEDS: CALCIUM ACETATE 667 MG CAP PO SCH ×4 (08:25→18:04)
[2016-11-23] MEDS: INSULIN ASPART [NOVOLOG] 3 ML PEN SC SCH ×4 (08:27→21:00)
[2016-11-23] MEDS: SALMETEROL/FLUTICASONE 250/50 INHA INH SCH ×2 (08:28→21:04)
[2016-11-23] MEDS: PYRIDOXINE 50 MG TAB PO SCH (08:29)
[2016-11-23] MEDS: FUROSEMIDE 40 MG TAB PO SCH (08:29)
[2016-11-23] MEDS: MONTELUKAST 10 MG TAB PO SCH (08:30)
[2016-11-23] MEDS: CINACALCET 30 MG TAB PO SCH (08:30)
[2016-11-23] MEDS: TIOTROPIUM 18 MCG CAPSULE INHA DEV INH SCH (08:30)
[2016-11-23] MEDS: APIXABAN 5 MG TABLET PO SCH ×2 (08:30→21:03)
[2016-11-23] MEDS: ASPIRIN 81 MG TAB PO SCH (08:30)
[2016-11-23] MEDS: AMLODIPINE 5 MG TAB PO SCH (08:31)
[2016-11-23] MEDS: POLYETHYLENE GLYCOL 17 GM PACKET PO SCH ×2 (08:31→21:01)
[2016-11-23] MEDS: NICOTINE (21 MG/24 HR) PATCH TRANSDERM SCH (08:31)
[2016-11-23 08:32] LABS: ALBUMIN 3.4 g/dl (3.3-4.9); ALBUMIN/GLOBULIN RATIO 1.41; CALCIUM 10.2 mg/dl (8.4-10.2); CREATININE 3.59 mg/dl (0.44-1.00); POTASSIUM 3.3 mmol/L (3.5-5.1); TOTAL PROTEIN 5.8 g/dl (6.1-8.1)
[2016-11-23] MEDS: LOSARTAN 50 MG TAB PO SCH ×2 (08:32→21:02)
[2016-11-23] MEDS: DILTIAZEM (CD) 120 MG CAP PO SCH ×2 (08:32→21:03)
[2016-11-23] MEDS: COLLAGENASE 30 GM TUBE TOP SCH (08:33)
[2016-11-23] MEDS: METOPROLOL (XL) 50 MG TAB PO SCH ×2 (09:00→21:02)
[2016-11-23] MEDS ORDERED: MEROPENEM 500 MG/100 ML (PMX) 100 ML IVPB SCH (11:30)
[2016-11-23] MEDS: DOCUSATE SODIUM 100 MG CAP PO SCH ×2 (11:42→22:00)
--- NOTE | 2016-11-23 14:50 | CONS ---
Date/Time of Note Date/Time of Note DATE: 11/23/16 TIME: 14:48 Assessment/Plan Assessment/Plan Chief Complaint/Hosp Course Awake, confused, looks comfortable, no fevers Indwelling's: Left upper extremity AV fistula Antimicrobials: Vancomycin, Gentamicin Physical examination: Morbidly obese well-developed elderly woman who is i lethargic, in no distress. Head atraumatic, normocephalic. Sclerae nonicteric. Neck is obese. Chest rise symmetrical, breath sounds diminished basis. Heart S1-S2. Abdomen obese soft bowel tones present. Extremities with bilateral edema, patient has multiple lesions on her lower extremities erythema resolving, she has a left upper thigh wound VAC. ASSESSMENT: 1. Acute encephalopathy, likely toxic metabolic 2. Bilateral lower extremities chronic venous stasis with chronic cellulitis and left hip wound, s/p debridement and wound vac application 10/19/16. 3. End-stage renal disease, on hemodialysis. 4. Morbid obesity. 5. Atrial fibrillation. 6. Healthcare associated pneumonia, possibly aspiration 7. Allergy: Penicillin, Cipro Plan: Remains stable, chest x-ray revealed right basilar pneumonia, change gentamicin to meropenem, continue vancomycin, anti-aspiration measures, encourage incentive spirometry, local wound care as per surgical team. staff Problems: Consultation Date/Type/Reason Admit Date/Time Nov 11, 2016 at 06:40 Initial Consult Date 11/12/16 Type of Consultation: ID Exam/Review of Systems Vital Signs Vitals Vital Signs Date Time Temp Pulse Resp B/P Pulse Ox O2 Delivery O2 Flow Rate FiO2 11/23/16 12:00 71 11/23/16 11:50 97.9 19 99/60 92 11/20/16 23:28 Nasal Cannula 3.0 Intake and Output 11/22/16 11/22/16 11/23/16 15:00 23:00 07:00 Intake Total 500 ml 350 ml 400 ml Output Total 3500 ml 100 ml Balance -3000 ml 250 ml 400 ml Results Result Diagram: 11/23/16 0707 11/23/16 0707 Results 24 hrs Laboratory Tests Test 11/22/16 17:15 11/22/16 21:14 11/23/16 07:07 11/23/16 08:23 Bedside Glucose 144 140 154 White Blood Count 15.3 #H Red Blood Count 2.74 L Hemoglobin 8.0 L Hematocrit 28.0 L Mean Corpuscular Volume 102.2 H Mean Corpuscular Hemoglobin 29.2 Mean Corpuscular Hemoglobin Concent 28.6 L Red Cell Distribution Width 19.4 H Platelet Count 476 H Mean Platelet Volume 9.3 Neutrophils % 74.5 Lymphocytes % 8.1 L Monocytes % 11.6 H Eosinophils % 1.0 Basophils % 0.5 Nucleated Red Blood Cells % 1.0 H Neutrophils # 11.4 H Lymphocytes # 1.2 Monocytes # 1.8 H Eosinophils # 0.2 Basophils # 0.1 Nucleated Red Blood Cells # 0.2 H Sodium Level 135 Potassium Level 3.3 L Chloride Level 98 Carbon Dioxide Level 31 Anion Gap 9 Blood Urea Nitrogen 37 H Creatinine 3.59 H Glucose Level 164 Calcium Level 10.2 Total Bilirubin 0.0 L Direct Bilirubin 0.00 Indirect Bilirubin 0.0 Aspartate Amino Transf (AST/SGOT) 23 Alanine Aminotransferase (ALT/SGPT) 26 Alkaline Phosphatase 94 Total Protein 5.8 L Albumin 3.4 Globulin 2.40 Albumin/Globulin Ratio 1.41 Test 11/23/16 11:46 Bedside Glucose 148 Medications Medications Current Medications Amlodipine Besylate (Norvasc) 5 mg DAILY PO Last administered on 11/21/16 08:51 ; Admin Dose 5 MG; Start 11/11/16 at 09:30 Apixaban (Eliquis) 5 mg BID PO Last administered on 11/23/16 08:30; Admin Dose 5 MG; Start 11/11/16 at 09:30 Aspirin (Aspirin) 81 mg DAILY PO Last administered on 11/23/16 08:30; Admin Dose 81 MG; Start 11/11/16 at 09:30 Atorvastatin Calcium (Lipitor) 40 mg QHS PO Last administered on 11/22/16 21: 15; Admin Dose 40 MG; Start 11/11/16 at 21:00 Benzonatate (Tessalon) 100 mg Q6 PO Last administered on 11/23/16 11:52; Admin Dose 100 MG; Start 11/11/16 at 12:00 Carisoprodol (Soma) 350 mg Q8 PRN PO MUSCLE SPASMS Last administered on 08:45; Admin Dose 350 MG; Start 11/11/16 at 12:00 Cinacalcet (Sensipar) 30 mg DAILY PO Last administered on 11/23/16 08:30; Admin Dose 30 MG; Start 11/11/16 at 11:00 Furosemide (Lasix) 80 mg DAILY PO Last administered on 11/23/16 08:29; Admin Dose 80 MG; Start 11/11/16 at 09:30 Losartan Potassium (Cozaar) 50 mg BID PO Last administered on 11/22/16 21:28; Admin Dose 50 MG; Start 11/11/16 at 09:30 Metoprolol Succinate (Toprol Xl) 50 mg BID PO Last administered on 11/22/16 21 :19; Admin Dose 50 MG; Start 11/11/16 at 09:30 Montelukast Sodium (Singulair) 10 mg QAM PO Last administered on 11/23/16 08: 30; Admin Dose 10 MG; Start 11/11/16 at 11:00 Oxycodone/ Acetaminophen (Endocet (10/ 325)) 1 tab Q6 PRN PO PRN Last administered on 11/22/16 16:24; Admin Dose 1 TAB; Start 11/11/16 at 12:00 Pyridoxine HCl (Vitamin B6) 50 mg DAILY PO Last administered on 11/23/16 08:29 ; Admin Dose 50 MG; Start 11/11/16 at 09:30 Tiotropium [place] (Spiriva) 1 inh DAILY INH Last administered on 11/23/16 08: 30; Admin Dose 1 INH; Start 11/11/16 at 11:00 Ondansetron HCl (Zofran Tab) 4 mg Q6H PRN PO NAUSEA AND/OR VOMITING Last administered on 11/22/16 08:46; Admin Dose 4 MG; Start 11/11/16 at 10:00 Salmeterol Xinafoate/ Fluticasone (Advair 250/50 Diskus) 1 inh BID INH Last administered on 11/23/16 08:28; Admin Dose 1 INH; Start 11/11/16 at 11:00 Vancomycin HCl (Vanco Iv Per Pharmacy) PER PHARMACY DOSING NOTE XX ; Start 11/11 at 10:30 Albuterol (Ventolin Hfa) 2 puff Q4H PRN INH AOB Last administered on 11/22/16 08:41; Admin Dose 2 PUFF; Start 11/11/16 at 10:30 Epoetin Hang (Epogen (Esrd)) 10,000 units TuThSa@17 SC Last administered on 11/20 17:54; Admin Dose 10,000 UNITS; Start 11/11/16 at 17:00 Pantoprazole (Protonix Tab) 40 mg BID@06,18 PO Last administered on 11/23/16 06:13; Admin Dose 40 MG; Start 11/12/16 at 18:00 Collagenase (Santyl) 1 applic DAILY TOP Last administered on 11/21/16 08:51; Admin Dose 1 APPLIC; Start 11/13/16 at 09:00 Diagnostic Test (Pha) (Accu-Chek) 1 ea 02 XX Last administered on 11/18/16 01: 42; Admin Dose 1 EA; Start 11/14/16 at 02:00 Insulin Detemir (Levemir) 35 unit QHS@20 SC Last administered on 11/22/16 21: 22; Admin Dose 35 UNIT; Start 11/14/16 at 20:00 Nicotine (Nicoderm 21 Mg/ 24hr) 1 patch DAILY TRANSDERM Last administered on 08:31; Admin Dose 1 PATCH; Start 11/14/16 at 20:00 Docusate Sodium 100 mg 100 mg Q12H PO Last administered on 11/23/16 11:42; Admin Dose 100 MG; Start 11/16/16 at 22:00 Vancomycin HCl (Vancocin) 250 ml @ 125 mls/hr Q96H IVPB Last administered on 18:04; Admin Dose 125 MLS/HR; Start 11/16/16 at 17:00 Miscellaneous Information 1 ea NOTE XX ; Start 11/17/16 at 11:30 Glucose (Glutose) 15 gm Q15M PRN PO DECREASED GLUCOSE; Start 11/17/16 at 11:30 Glucose (Glutose) 22.5 gm Q15M PRN PO DECREASED GLUCOSE; Start 11/17/16 at 11:30 Dextrose (D50w Syringe) 25 ml Q15M PRN IV DECREASED GLUCOSE; Start 11/17/16 at 11:30 Dextrose (D50w Syringe) 50 ml Q15M PRN IV DECREASED GLUCOSE; Start 11/17/16 at 11:30 Glucagon (Glucagen) 1 mg Q15M PRN IM DECREASED GLUCOSE; Start 11/17/16 at 11:30 Glucose (Glutose) 15 gm Q15M PRN BUCCAL DECREASED GLUCOSE; Start 11/17/16 at 11: 30 Polyethylene Glycol (Miralax) 17 gm BID PO Last administered on 11/23/16 08:31 ; Admin Dose 17 GM; Start 11/17/16 at 12:00 Bisacodyl (Dulcolax) 10 mg DAILY PRN PO CONSTIPATION; Start 11/17/16 at 11:30 Diltiazem HCl (Cardizem Cd) 120 mg BID PO Last administered on 11/22/16 21:18 ; Admin Dose 120 MG; Start 11/19/16 at 21:00 Zolpidem Tartrate (Ambien) 5 mg HS PRN PO INSOMNIA Last administered on 02:17; Admin Dose 5 MG; Start 11/19/16 at 21:30 Lorazepam (Ativan) 1 mg Q6H PRN IV AGITATION/ANXIETY Last administered on 06:13; Admin Dose 1 MG; Start 11/21/16 at 21:15 Guaifenesin/ Codeine Phosphate 5 ml 5 ml Q4H PRN PO COUGH Last administered on 11/22/16 08:42; Admin Dose 5 ML; Start 11/21/16 at 21:30 Meropenem (Merrem 500 Mg/ 100 ml (Pmx)) 100 ml @ 200 mls/hr Q24H IVPB ; Start 11/23/16 at 16:00 TODD RAMIRES NP Nov 23, 2016 14:50
--- NOTE | 2016-11-23 15:13 | PN ---
Date/Time of Note Date/Time of Note DATE: 11/23/16 TIME: 15:09 Assessment/Plan VTE Prophylaxis VTE Prophylaxis Intervention: other Lines/Catheters IV C[facility]ter Type (from [facility]): [facility] Urinary Cath still in place: No Assessment/Plan Assessment/Plan 1. Pneumonia, speech therapist note reviewed, intermittent higher WBC, on meropenem 2. UTI, on antibiotics 3. Bilateral lower extremities chronic venous stasis with chronic cellulitis and left hip wound, s/p debridement and wound vac application 10/19/16, wound care and antibiotics 4. Diabetes mellitus, on insulin 5. Chronic atrial fibrillation, controlled rate, on cardizem and eliquis 6. Hypertension, controlled 7. End-stage renal disease, on hemodialysis TTS 8. Normocytic anemia, on epogen 9. Allergy: Penicillin, Cipro 10. DVT prophylaxis: eliquis Subjective 24 Hr Interval Summary Free Text/Dictation more alert today. no respiratory distress Exam/Review of Systems Vital Signs Vitals Vital Signs Date Time Temp Pulse Resp B/P Pulse Ox O2 Delivery O2 Flow Rate FiO2 11/23/16 12:00 71 11/23/16 11:50 97.9 19 99/60 92 11/20/16 23:28 Nasal Cannula 3.0 Intake and Output 11/22/16 11/22/16 11/23/16 15:00 23:00 07:00 Intake Total 500 ml 350 ml 400 ml Output Total 3500 ml 100 ml Balance -3000 ml 250 ml 400 ml Exam Constitutional: alert, obese Head: atraumatic, normocephalic Eyes: EOMI, PERRL, nl conjunctiva, nl lids ENMT: nl external ears & nose, nl lips & teeth, nl nasal mucosa & septum Neck: supple Respiratory: clear to auscultation, normal air movement, No congested cough, No crackles/rales, No diminished breath sounds, No intercostal retraction, No labored breathing, No other, No respirations, No tactile fremitus, No wheezing Cardiovascular: nl pulses, regular rate and rhythm, No S3, No S4, No bruits, No diastolic murmur, No edema, No gallop, No irregular rhythm, No jugular venous distention (JVD), No murmurs/extra sounds, No other, No rub, No systolic murmur Gastrointestinal: nl liver, spleen, non-tender, soft, No ascites, No bowel sounds, No distended, No firm, No hepatomegaly, No mass , No other, No rebound or guarding, No splenomegaly, No surgical scars, No tender Musculoskeletal: nl extremities to inspection Extremities: edema Neurological: VIOLIN [employer]ER II-XII intact, confused Results Result Diagram: 11/23/16 0707 11/23/16 0707 Results 24 hrs Laboratory Tests Test 11/22/16 17:15 11/22/16 21:14 11/23/16 07:07 11/23/16 08:23 Bedside Glucose 144 140 154 White Blood Count 15.3 #H Red Blood Count 2.74 L Hemoglobin 8.0 L Hematocrit 28.0 L Mean Corpuscular Volume 102.2 H Mean Corpuscular Hemoglobin 29.2 Mean Corpuscular Hemoglobin Concent 28.6 L Red Cell Distribution Width 19.4 H Platelet Count 476 H Mean Platelet Volume 9.3 Neutrophils % 74.5 Lymphocytes % 8.1 L Monocytes % 11.6 H Eosinophils % 1.0 Basophils % 0.5 Nucleated Red Blood Cells % 1.0 H Neutrophils # 11.4 H Lymphocytes # 1.2 Monocytes # 1.8 H Eosinophils # 0.2 Basophils # 0.1 Nucleated Red Blood Cells # 0.2 H Sodium Level 135 Potassium Level 3.3 L Chloride Level 98 Carbon Dioxide Level 31 Anion Gap 9 Blood Urea Nitrogen 37 H Creatinine 3.59 H Glucose Level 164 Calcium Level 10.2 Total Bilirubin 0.0 L Direct Bilirubin 0.00 Indirect Bilirubin 0.0 Aspartate Amino Transf (AST/SGOT) 23 Alanine Aminotransferase (ALT/SGPT) 26 Alkaline Phosphatase 94 Total Protein 5.8 L Albumin 3.4 Globulin 2.40 Albumin/Globulin Ratio 1.41 Test 11/23/16 11:46 Bedside Glucose 148 Medications Medications Current Medications Amlodipine Besylate (Norvasc) 5 mg DAILY PO Last administered on 11/21/16 08:51 ; Admin Dose 5 MG; Start 11/11/16 at 09:30 Apixaban (Eliquis) 5 mg BID PO Last administered on 11/23/16 08:30; Admin Dose 5 MG; Start 11/11/16 at 09:30 Aspirin (Aspirin) 81 mg DAILY PO Last administered on 11/23/16 08:30; Admin Dose 81 MG; Start 11/11/16 at 09:30 Atorvastatin Calcium (Lipitor) 40 mg QHS PO Last administered on 11/22/16 21: 15; Admin Dose 40 MG; Start 11/11/16 at 21:00 Benzonatate (Tessalon) 100 mg Q6 PO Last administered on 11/23/16 11:52; Admin Dose 100 MG; Start 11/11/16 at 12:00 Carisoprodol (Soma) 350 mg Q8 PRN PO MUSCLE SPASMS Last administered on 08:45; Admin Dose 350 MG; Start 11/11/16 at 12:00 Cinacalcet (Sensipar) 30 mg DAILY PO Last administered on 11/23/16 08:30; Admin Dose 30 MG; Start 11/11/16 at 11:00 Furosemide (Lasix) 80 mg DAILY PO Last administered on 11/23/16 08:29; Admin Dose 80 MG; Start 11/11/16 at 09:30 Losartan Potassium (Cozaar) 50 mg BID PO Last administered on 11/22/16 21:28; Admin Dose 50 MG; Start 11/11/16 at 09:30 Metoprolol Succinate (Toprol Xl) 50 mg BID PO Last administered on 11/22/16 21 :19; Admin Dose 50 MG; Start 11/11/16 at 09:30 Montelukast Sodium (Singulair) 10 mg QAM PO Last administered on 11/23/16 08: 30; Admin Dose 10 MG; Start 11/11/16 at 11:00 Oxycodone/ Acetaminophen (Endocet (10/ 325)) 1 tab Q6 PRN PO PRN Last administered on 11/22/16 16:24; Admin Dose 1 TAB; Start 11/11/16 at 12:00 Pyridoxine HCl (Vitamin B6) 50 mg DAILY PO Last administered on 11/23/16 08:29 ; Admin Dose 50 MG; Start 11/11/16 at 09:30 Tiotropium [place] (Spiriva) 1 inh DAILY INH Last administered on 11/23/16 08: 30; Admin Dose 1 INH; Start 11/11/16 at 11:00 Ondansetron HCl (Zofran Tab) 4 mg Q6H PRN PO NAUSEA AND/OR VOMITING Last administered on 11/22/16 08:46; Admin Dose 4 MG; Start 11/11/16 at 10:00 Salmeterol Xinafoate/ Fluticasone (Advair 250/50 Diskus) 1 inh BID INH Last administered on 11/23/16 08:28; Admin Dose 1 INH; Start 11/11/16 at 11:00 Vancomycin HCl (Vanco Iv Per Pharmacy) PER PHARMACY DOSING NOTE XX ; Start 11/11 at 10:30 Albuterol (Ventolin Hfa) 2 puff Q4H PRN INH AOB Last administered on 11/22/16 08:41; Admin Dose 2 PUFF; Start 11/11/16 at 10:30 Epoetin [place] (Epogen (Esrd)) 10,000 units TuThSa@17 SC Last administered on 11/20 17:54; Admin Dose 10,000 UNITS; Start 11/11/16 at 17:00 Pantoprazole (Protonix Tab) 40 mg BID@06,18 PO Last administered on 11/23/16 06:13; Admin Dose 40 MG; Start 11/12/16 at 18:00 Collagenase (Santyl) 1 applic DAILY TOP Last administered on 11/21/16 08:51; Admin Dose 1 APPLIC; Start 11/13/16 at 09:00 Diagnostic Test (Pha) (Accu-Chek) 1 ea 02 XX Last administered on 11/18/16 01: 42; Admin Dose 1 EA; Start 11/14/16 at 02:00 Insulin Detemir (Levemir) 35 unit QHS@20 SC Last administered on 11/22/16 21: 22; Admin Dose 35 UNIT; Start 11/14/16 at 20:00 Nicotine (Nicoderm 21 Mg/ 24hr) 1 patch DAILY TRANSDERM Last administered on 08:31; Admin Dose 1 PATCH; Start 11/14/16 at 20:00 Docusate Sodium 100 mg 100 mg Q12H PO Last administered on 11/23/16 11:42; Admin Dose 100 MG; Start 11/16/16 at 22:00 Vancomycin HCl (Vancocin) 250 ml @ 125 mls/hr Q96H IVPB Last administered on 18:04; Admin Dose 125 MLS/HR; Start 11/16/16 at 17:00 Miscellaneous Information 1 ea NOTE XX ; Start 11/17/16 at 11:30 Glucose (Glutose) 15 gm Q15M PRN PO DECREASED GLUCOSE; Start 11/17/16 at 11:30 Glucose (Glutose) 22.5 gm Q15M PRN PO DECREASED GLUCOSE; Start 11/17/16 at 11:30 Dextrose (D50w Syringe) 25 ml Q15M PRN IV DECREASED GLUCOSE; Start 11/17/16 at 11:30 Dextrose (D50w Syringe) 50 ml Q15M PRN IV DECREASED GLUCOSE; Start 11/17/16 at 11:30 Glucagon (Glucagen) 1 mg Q15M PRN IM DECREASED GLUCOSE; Start 11/17/16 at 11:30 Glucose (Glutose) 15 gm Q15M PRN BUCCAL DECREASED GLUCOSE; Start 11/17/16 at 11: 30 Polyethylene Glycol (Miralax) 17 gm BID PO Last administered on 11/23/16 08:31 ; Admin Dose 17 GM; Start 11/17/16 at 12:00 Bisacodyl (Dulcolax) 10 mg DAILY PRN PO CONSTIPATION; Start 11/17/16 at 11:30 Diltiazem HCl (Cardizem Cd) 120 mg BID PO Last administered on 11/22/16 21:18 ; Admin Dose 120 MG; Start 11/19/16 at 21:00 Zolpidem Tartrate (Ambien) 5 mg HS PRN PO INSOMNIA Last administered on 02:17; Admin Dose 5 MG; Start 11/19/16 at 21:30 Lorazepam (Ativan) 1 mg Q6H PRN IV AGITATION/ANXIETY Last administered on 06:13; Admin Dose 1 MG; Start 11/21/16 at 21:15 Guaifenesin/ Codeine Phosphate 5 ml 5 ml Q4H PRN PO COUGH Last administered on 11/22/16 08:42; Admin Dose 5 ML; Start 11/21/16 at 21:30 Meropenem 100 ml @ 200 mls/hr Q24H IVPB ; Start 11/23/16 at 16:00 Potassium Chloride 20 meq/ Sodium Chloride 110 ml @ 55 mls/hr ONCE ONCE IVPB ; Start 11/23/16 at 15:30; Stop 11/23/16 at 17:29; Status UNV Metronidazole (Flagyl 500 Mg (Pmx)) 100 ml @ 100 mls/hr Q8 IVPB ; Start at 15:30; Status VIPUL HINTON MD Nov 23, 2016 15:13
[2016-11-23] MEDS ORDERED: metroNIDAZOLE 500 MG/NS (PMX) 100 ML IVPB SCH (15:30)
[2016-11-23] MEDS ORDERED: POTASSIUM CHLORIDE 20 MEQ in SOD CHLORIDE 0.9% 100 ML IVPB ONE (16:00)
[2016-11-23] MEDS: MEROPENEM 500 MG/100 ML (PMX) 100 ML IVPB SCH (16:53)
[2016-11-23] MEDS: EPOETIN 10000 UNITS/1 ML INJ (ESRD) SC SCH (17:32)
[2016-11-23] MEDS: ATORVASTATIN 40 MG TAB PO SCH (21:03)
[2016-11-23] MEDS: INSULIN DETEMIR [LEVEMIR] 3ML CART SC SCH (21:05)
[2016-11-24] VITALS (19 sets, daily range): BP systolic 94–134; BP diastolic 45–72; PULSE 61–80; RESP 20–21
[2016-11-24] MEDS: BENZONATATE 100 MG CAP PO SCH ×4 (00:44→17:37)
[2016-11-24] MEDS: ACCU-CHEK XX SCH (02:00)
[2016-11-24] MEDS: METOCLOPRAMIDE 5 MG TAB PO SCH ×3 (05:58→17:37)
[2016-11-24] MEDS: PANTOPRAZOLE (EC) 40 MG TAB PO SCH ×2 (05:58→17:37)
[2016-11-24 07:55] LABS: ADD SCAN DIFF NO
[2016-11-24 07:58] LABS: ABNORMAL IP MESSAGE 1; BASOPHIL # 0.1 10^3/ul (0.0-0.1); BASOPHILS % 0.7 % (0.0-2.0); EOSINOPHILS # 0.3 10^3/ul (0.0-0.5); EOSINOPHILS % 1.7 % (0.0-7.0); HEMATOCRIT 27.4 % (37.0-47.0); HEMOGLOBIN 8.1 g/dl (12.0-16.0); LYMPHOCYTES # 1.9 10^3/ul (0.8-2.9); LYMPHOCYTES % 11.7 % (15.0-51.0); MEAN CORPUSCULAR HEMOGLOBIN 29.8 pg (29.0-33.0); MEAN CORPUSCULAR HGB CONC 29.6 g/dl (32.0-37.0); MEAN CORPUSCULAR VOLUME 100.7 fl (82.0-101.0); MEAN PLATELET VOLUME 9.3 fl (7.4-10.4); NEUTROPHIL # 11.5 10^3/ul (1.6-7.5); NEUTROPHILS % 69.4 % (39.0-77.0); NUCLEATED RED BLOOD CELLS # 0.4 10^3/ul (0.0-0.0); NUCLEATED RED BLOOD CELLS% 2.2 /100WBC (0.0-0.0); PLATELET COUNT 533 10^3/UL (140-415); RED BLOOD COUNT 2.72 10^6/ul (4.20-5.40); RED CELL DISTRIBUTION WIDTH 19.7 % (11.5-14.5); WHITE BLOOD COUNT 16.6 10^3/ul (4.8-10.8)
[2016-11-24] MEDS: INSULIN ASPART [NOVOLOG] 3 ML PEN SC SCH ×4 (08:00→20:54)
[2016-11-24 08:32] LABS: CALCIUM 10.1 mg/dl (8.4-10.2); CREATININE 4.1 mg/dl (0.44-1.00); POTASSIUM 3.6 mmol/L (3.5-5.1)
[2016-11-24] MEDS: CINACALCET 30 MG TAB PO SCH (08:56)
[2016-11-24] MEDS: PYRIDOXINE 50 MG TAB PO SCH (08:56)
[2016-11-24] MEDS: MONTELUKAST 10 MG TAB PO SCH (08:57)
[2016-11-24] MEDS: CALCIUM ACETATE 667 MG CAP PO SCH ×3 (08:58→17:37)
[2016-11-24] MEDS: TIOTROPIUM 18 MCG CAPSULE INHA DEV INH SCH (09:00)
[2016-11-24] MEDS: AMLODIPINE 5 MG TAB PO SCH (09:00)
[2016-11-24] MEDS: LOSARTAN 50 MG TAB PO SCH ×2 (09:00→20:52)
[2016-11-24] MEDS: POLYETHYLENE GLYCOL 17 GM PACKET PO SCH ×2 (09:00→20:49)
[2016-11-24] MEDS: METOPROLOL (XL) 50 MG TAB PO SCH ×2 (09:00→20:51)
[2016-11-24] MEDS: DILTIAZEM (CD) 120 MG CAP PO SCH ×2 (09:00→20:53)
[2016-11-24] MEDS: FUROSEMIDE 40 MG TAB PO SCH (09:00)
[2016-11-24] MEDS: ASPIRIN 81 MG TAB PO SCH (09:08)
[2016-11-24] MEDS: APIXABAN 5 MG TABLET PO SCH ×2 (09:09→20:49)
[2016-11-24] MEDS: SALMETEROL/FLUTICASONE 250/50 INHA INH SCH ×2 (09:11→20:53)
[2016-11-24] MEDS: COLLAGENASE 30 GM TUBE TOP SCH (09:11)
[2016-11-24] MEDS: DOCUSATE SODIUM 100 MG CAP PO SCH ×2 (10:00→20:49)
--- NOTE | 2016-11-24 11:10 | CONS ---
Date/Time of Note Date/Time of Note DATE: 11/24/16 TIME: 11:08 Assessment/Plan Assessment/Plan Chief Complaint/Hosp Course Awake, confused, looks comfortable, no fevers Indwelling's: Left upper extremity AV fistula Antimicrobials: Vancomycin, Merrem Physical examination: Morbidly obese well-developed, ill-appearing elderly woman in no distress. Head atraumatic, normocephalic. Sclerae nonicteric. Neck is obese. Chest rise symmetrical, breath sounds diminished basis. Heart S1-S2. Abdomen obese soft bowel tones present. Extremities with bilateral edema, patient has multiple lesions on her lower extremities erythema resolving, she has a left upper thigh wound VAC. ASSESSMENT: 1. Acute encephalopathy, likely toxic metabolic 2. Bilateral lower extremities chronic venous stasis with chronic cellulitis and left hip wound, s/p debridement and wound vac application 10/19/16. 3. End-stage renal disease, on hemodialysis. 4. Morbid obesity. 5. Atrial fibrillation. 6. Healthcare associated pneumonia, possibly aspiration 7. Allergy: Penicillin, Cipro Plan: Remains stable, started on Merrem 2 to right basilar pneumonia, continue vancomycin, anti-aspiration measures, encourage incentive spirometry, local wound care as per surgical team. DW staff Problems: Consultation Date/Type/Reason Admit Date/Time Nov 11, 2016 at 06:40 Initial Consult Date 11/12/16 Type of Consultation: ID Exam/Review of Systems Vital Signs Vitals Vital Signs Date Time Temp Pulse Resp B/P Pulse Ox O2 Delivery O2 Flow Rate FiO2 11/24/16 09:01 70 11/24/16 07:35 97.9 20 113/55 90 11/20/16 23:28 Nasal Cannula 3.0 Intake and Output 11/23/16 11/23/16 11/24/16 15:00 23:00 07:00 Intake Total 450 ml Balance 450 ml Results Result Diagram: 11/24/16 0708 11/24/16 0708 Results 24 hrs Laboratory Tests Test 11/23/16 11:46 11/23/16 17:29 11/23/16 21:00 11/24/16 07:08 Bedside Glucose 148 147 156 White Blood Count 16.6 H Red Blood Count 2.72 L Hemoglobin 8.1 L Hematocrit 27.4 L Mean Corpuscular Volume 100.7 Mean Corpuscular Hemoglobin 29.8 Mean Corpuscular Hemoglobin Concent 29.6 L Red Cell Distribution Width 19.7 H Platelet Count 533 H Mean Platelet Volume 9.3 Neutrophils % 69.4 Lymphocytes % 11.7 L Monocytes % 12.0 H Eosinophils % 1.7 Basophils % 0.7 Nucleated Red Blood Cells % 2.2 H Neutrophils # 11.5 H Lymphocytes # 1.9 Monocytes # 2.0 H Eosinophils # 0.3 Basophils # 0.1 Nucleated Red Blood Cells # 0.4 H Sodium Level 138 Potassium Level 3.6 Chloride Level 100 Carbon Dioxide Level 30 Anion Gap 12 Blood Urea Nitrogen 43 H Creatinine 4.10 H Glucose Level 138 Calcium Level 10.1 Test 11/24/16 08:53 Bedside Glucose 129 Medications Medications Current Medications Amlodipine Besylate (Norvasc) 5 mg DAILY PO Last administered on 11/21/16 08:51 ; Admin Dose 5 MG; Start 11/11/16 at 09:30 Apixaban (Eliquis) 5 mg BID PO Last administered on 11/24/16 09:09; Admin Dose 5 MG; Start 11/11/16 at 09:30 Aspirin (Aspirin) 81 mg DAILY PO Last administered on 11/24/16 09:08; Admin Dose 81 MG; Start 11/11/16 at 09:30 Atorvastatin Calcium (Lipitor) 40 mg QHS PO Last administered on 11/23/16 21: 03; Admin Dose 40 MG; Start 11/11/16 at 21:00 Benzonatate (Tessalon) 100 mg Q6 PO Last administered on 11/24/16 05:58; Admin Dose 100 MG; Start 11/11/16 at 12:00 Carisoprodol (Soma) 350 mg Q8 PRN PO MUSCLE SPASMS Last administered on 08:45; Admin Dose 350 MG; Start 11/11/16 at 12:00 Cinacalcet (Sensipar) 30 mg DAILY PO Last administered on 11/24/16 08:56; Admin Dose 30 MG; Start 11/11/16 at 11:00 Furosemide (Lasix) 80 mg DAILY PO Last administered on 11/23/16 08:29; Admin Dose 80 MG; Start 11/11/16 at 09:30 Losartan Potassium (Cozaar) 50 mg BID PO Last administered on 11/23/16 21:02; Admin Dose 50 MG; Start 11/11/16 at 09:30 Metoprolol Succinate (Toprol Xl) 50 mg BID PO Last administered on 11/23/16 21 :02; Admin Dose 50 MG; Start 11/11/16 at 09:30 Montelukast Sodium (Singulair) 10 mg QAM PO Last administered on 11/24/16 08: 57; Admin Dose 10 MG; Start 11/11/16 at 11:00 Oxycodone/ Acetaminophen (Endocet (10/ 325)) 1 tab Q6 PRN PO PRN Last administered on 11/22/16 16:24; Admin Dose 1 TAB; Start 11/11/16 at 12:00 Pyridoxine HCl (Vitamin B6) 50 mg DAILY PO Last administered on 11/24/16 08:56 ; Admin Dose 50 MG; Start 11/11/16 at 09:30 Tiotropium [place] (Spiriva) 1 inh DAILY INH Last administered on 11/24/16 09: 00; Admin Dose 1 INH; Start 11/11/16 at 11:00 Ondansetron HCl (Zofran Tab) 4 mg Q6H PRN PO NAUSEA AND/OR VOMITING Last administered on 11/22/16 08:46; Admin Dose 4 MG; Start 11/11/16 at 10:00 Salmeterol Xinafoate/ Fluticasone (Advair 250/50 Diskus) 1 inh BID INH Last administered on 11/24/16 09:11; Admin Dose 1 INH; Start 11/11/16 at 11:00 Vancomycin HCl (Vanco Iv Per Pharmacy) PER PHARMACY DOSING NOTE XX ; Start 11/11 at 10:30 Albuterol (Ventolin Hfa) 2 puff Q4H PRN INH AOB Last administered on 11/22/16 08:41; Admin Dose 2 PUFF; Start 11/11/16 at 10:30 Epoetin [place] (Epogen (Esrd)) 10,000 units TuThSa@17 SC Last administered on 17:32; Admin Dose 10,000 UNITS; Start 11/11/16 at 17:00 Pantoprazole (Protonix Tab) 40 mg BID@06,18 PO Last administered on 11/24/16 05:58; Admin Dose 40 MG; Start 11/12/16 at 18:00 Collagenase (Santyl) 1 applic DAILY TOP Last administered on 11/24/16 09:11; Admin Dose 1 APPLIC; Start 11/13/16 at 09:00 Diagnostic Test (Pha) (Accu-Chek) 1 ea 02 XX Last administered on 11/18/16 01: 42; Admin Dose 1 EA; Start 11/14/16 at 02:00 Insulin Detemir (Levemir) 35 unit QHS@20 SC Last administered on 11/23/16 21: 05; Admin Dose 35 UNIT; Start 11/14/16 at 20:00 Nicotine (Nicoderm 21 Mg/ 24hr) 1 patch DAILY TRANSDERM Last administered on 08:31; Admin Dose 1 PATCH; Start 11/14/16 at 20:00 Docusate Sodium 100 mg 100 mg Q12H PO Last administered on 11/23/16 11:42; Admin Dose 100 MG; Start 11/16/16 at 22:00 Vancomycin HCl (Vancocin) 250 ml @ 125 mls/hr Q96H IVPB Last administered on 18:04; Admin Dose 125 MLS/HR; Start 11/16/16 at 17:00 Miscellaneous Information 1 ea NOTE XX ; Start 11/17/16 at 11:30 Glucose (Glutose) 15 gm Q15M PRN PO DECREASED GLUCOSE; Start 11/17/16 at 11:30 Glucose (Glutose) 22.5 gm Q15M PRN PO DECREASED GLUCOSE; Start 11/17/16 at 11:30 Dextrose (D50w Syringe) 25 ml Q15M PRN IV DECREASED GLUCOSE; Start 11/17/16 at 11:30 Dextrose (D50w Syringe) 50 ml Q15M PRN IV DECREASED GLUCOSE; Start 11/17/16 at 11:30 Glucagon (Glucagen) 1 mg Q15M PRN IM DECREASED GLUCOSE; Start 11/17/16 at 11:30 Glucose (Glutose) 15 gm Q15M PRN BUCCAL DECREASED GLUCOSE; Start 11/17/16 at 11: 30 Polyethylene Glycol (Miralax) 17 gm BID PO Last administered on 11/23/16 21:01 ; Admin Dose 17 GM; Start 11/17/16 at 12:00 Bisacodyl (Dulcolax) 10 mg DAILY PRN PO CONSTIPATION; Start 11/17/16 at 11:30 Diltiazem HCl (Cardizem Cd) 120 mg BID PO Last administered on 11/23/16 21:03 ; Admin Dose 120 MG; Start 11/19/16 at 21:00 Zolpidem Tartrate (Ambien) 5 mg HS PRN PO INSOMNIA Last administered on 02:17; Admin Dose 5 MG; Start 11/19/16 at 21:30 Lorazepam (Ativan) 1 mg Q6H PRN IV AGITATION/ANXIETY Last administered on 06:13; Admin Dose 1 MG; Start 11/21/16 at 21:15 Guaifenesin/ Codeine Phosphate 5 ml 5 ml Q4H PRN PO COUGH Last administered on 11/22/16 08:42; Admin Dose 5 ML; Start 11/21/16 at 21:30 Meropenem (Merrem 500 Mg/ 100 ml (Pmx)) 100 ml @ 200 mls/hr Q24H IVPB Last administered on 11/23/16 16:53; Admin Dose 200 MLS/HR; Start 11/23/16 at 16:00 Miscellaneous Information (*Rx Drug Level Order Reminder*) 1 ONCE ONCE XX ; Start 11/24/16 at 16:00; Stop 11/24/16 at 16:01 TODD RAMIRES NP Nov 24, 2016 11:09
[2016-11-24] MEDS: NICOTINE (21 MG/24 HR) PATCH TRANSDERM SCH (12:47)
--- NOTE | 2016-11-24 13:52 | PN ---
Date/Time of Note Date/Time of Note DATE: 11/24/16 TIME: 13:43 Assessment/Plan VTE Prophylaxis VTE Prophylaxis Intervention: other Lines/Catheters IV Catheter Type (from Nrs): [facility] Urinary Cath still in place: No Assessment/Plan Assessment/Plan 1. Pneumonia, higher WBC but better mental status indicating the leukocytosis is likely more wound related, on meropenem and vancomycin 2. UTI, on antibiotics 3. Bilateral lower extremities chronic venous stasis with chronic cellulitis and left hip wound, s/p debridement and wound vac application 10/19/16, wound care and antibiotics 4. Diabetes mellitus, on insulin 5. Chronic atrial fibrillation, controlled rate, on cardizem and eliquis 6. Hypertension, controlled 7. End-stage renal disease, on hemodialysis TTS 8. Normocytic anemia, on epogen 9. Allergy: Penicillin, Cipro 10. DVT prophylaxis: eliquis 11. D/C planning Subjective 24 Hr Interval Summary Free Text/Dictation full alert and oriented today without distress Exam/Review of Systems Vital Signs Vitals Vital Signs Date Time Temp Pulse Resp B/P Pulse Ox O2 Delivery O2 Flow Rate FiO2 11/24/16 12:30 71 11/24/16 11:25 97.9 20 97/45 92 11/20/16 23:28 Nasal Cannula 3.0 Intake and Output 11/23/16 11/23/16 11/24/16 15:00 23:00 07:00 Intake Total 450 ml Balance 450 ml Exam Constitutional: alert, obese, oriented Head: atraumatic, normocephalic Eyes: EOMI, PERRL, nl conjunctiva, nl lids, nl sclera ENMT: mucosa pink and moist, nl external ears & nose, nl lips & teeth, nl nasal mucosa & septum Respiratory: clear to auscultation, normal air movement, No congested cough, No crackles/rales, No diminished breath sounds, No intercostal retraction, No labored breathing, No other, No respirations, No tactile fremitus, No wheezing Cardiovascular: nl pulses, regular rate and rhythm, No S3, No S4, No bruits, No diastolic murmur, No edema, No gallop, No irregular rhythm, No jugular venous distention (JVD), No murmurs/extra sounds, No other, No rub, No systolic murmur Gastrointestinal: nl liver, spleen, non-tender, soft, No ascites, No bowel sounds, No distended, No firm, No hepatomegaly, No mass , No other, No rebound or guarding, No splenomegaly, No surgical scars, No tender Musculoskeletal: nl extremities to inspection Extremities: edema Neurological: [employer] II-XII intact, nl mental status, nl speech, nl strength Results Result Diagram: 11/24/16 0708 11/24/16 0708 Results 24 hrs Laboratory Tests Test 11/23/16 17:29 11/23/16 21:00 11/24/16 07:08 11/24/16 08:53 Bedside Glucose 147 156 129 White Blood Count 16.6 H Red Blood Count 2.72 L Hemoglobin 8.1 L Hematocrit 27.4 L Mean Corpuscular Volume 100.7 Mean Corpuscular Hemoglobin 29.8 Mean Corpuscular Hemoglobin Concent 29.6 L Red Cell Distribution Width 19.7 H Platelet Count 533 H Mean Platelet Volume 9.3 Neutrophils % 69.4 Lymphocytes % 11.7 L Monocytes % 12.0 H Eosinophils % 1.7 Basophils % 0.7 Nucleated Red Blood Cells % 2.2 H Neutrophils # 11.5 H Lymphocytes # 1.9 Monocytes # 2.0 H Eosinophils # 0.3 Basophils # 0.1 Nucleated Red Blood Cells # 0.4 H Sodium Level 138 Potassium Level 3.6 Chloride Level 100 Carbon Dioxide Level 30 Anion Gap 12 Blood Urea Nitrogen 43 H Creatinine 4.10 H Glucose Level 138 Calcium Level 10.1 Test 11/24/16 12:45 Bedside Glucose 166 Medications Medications Current Medications Amlodipine Besylate (Norvasc) 5 mg DAILY PO Last administered on 11/21/16 08:51 ; Admin Dose 5 MG; Start 11/11/16 at 09:30 Apixaban (Eliquis) 5 mg BID PO Last administered on 11/24/16 09:09; Admin Dose 5 MG; Start 11/11/16 at 09:30 Aspirin (Aspirin) 81 mg DAILY PO Last administered on 11/24/16 09:08; Admin Dose 81 MG; Start 11/11/16 at 09:30 Atorvastatin Calcium (Lipitor) 40 mg QHS PO Last administered on 11/23/16 21: 03; Admin Dose 40 MG; Start 11/11/16 at 21:00 Benzonatate (Tessalon) 100 mg Q6 PO Last administered on 11/24/16 12:46; Admin Dose 100 MG; Start 11/11/16 at 12:00 Carisoprodol (Soma) 350 mg Q8 PRN PO MUSCLE SPASMS Last administered on 08:45; Admin Dose 350 MG; Start 11/11/16 at 12:00 Cinacalcet (Sensipar) 30 mg DAILY PO Last administered on 11/24/16 08:56; Admin Dose 30 MG; Start 11/11/16 at 11:00 Furosemide (Lasix) 80 mg DAILY PO Last administered on 11/23/16 08:29; Admin Dose 80 MG; Start 11/11/16 at 09:30 Losartan Potassium (Cozaar) 50 mg BID PO Last administered on 11/23/16 21:02; Admin Dose 50 MG; Start 11/11/16 at 09:30 Metoprolol Succinate (Toprol Xl) 50 mg BID PO Last administered on 11/23/16 21 :02; Admin Dose 50 MG; Start 11/11/16 at 09:30 Montelukast Sodium (Singulair) 10 mg QAM PO Last administered on 11/24/16 08: 57; Admin Dose 10 MG; Start 11/11/16 at 11:00 Oxycodone/ Acetaminophen (Endocet (10/ 325)) 1 tab Q6 PRN PO PRN Last administered on 11/22/16 16:24; Admin Dose 1 TAB; Start 11/11/16 at 12:00 Pyridoxine HCl (Vitamin B6) 50 mg DAILY PO Last administered on 11/24/16 08:56 ; Admin Dose 50 MG; Start 11/11/16 at 09:30 Tiotropium [place] (Spiriva) 1 inh DAILY INH Last administered on 11/24/16 09: 00; Admin Dose 1 INH; Start 11/11/16 at 11:00 Ondansetron HCl (Zofran Tab) 4 mg Q6H PRN PO NAUSEA AND/OR VOMITING Last administered on 11/22/16 08:46; Admin Dose 4 MG; Start 11/11/16 at 10:00 Salmeterol Xinafoate/ Fluticasone (Advair 250/50 Diskus) 1 inh BID INH Last administered on 11/24/16 09:11; Admin Dose 1 INH; Start 11/11/16 at 11:00 Vancomycin HCl (Vanco Iv Per Pharmacy) PER PHARMACY DOSING NOTE XX ; Start 11/11 at 10:30 Albuterol (Ventolin Hfa) 2 puff Q4H PRN INH AOB Last administered on 11/22/16 08:41; Admin Dose 2 PUFF; Start 11/11/16 at 10:30 Epoetin Hang (Epogen (Esrd)) 10,000 units TuThSa@17 SC Last administered on 17:32; Admin Dose 10,000 UNITS; Start 11/11/16 at 17:00 Pantoprazole (Protonix Tab) 40 mg BID@06,18 PO Last administered on 11/24/16 05:58; Admin Dose 40 MG; Start 11/12/16 at 18:00 Collagenase (Santyl) 1 applic DAILY TOP Last administered on 11/24/16 09:11; Admin Dose 1 APPLIC; Start 11/13/16 at 09:00 Diagnostic Test (Pha) (Accu-Chek) 1 ea 02 XX Last administered on 11/18/16 01: 42; Admin Dose 1 EA; Start 11/14/16 at 02:00 Insulin Detemir (Levemir) 35 unit QHS@20 SC Last administered on 11/23/16 21: 05; Admin Dose 35 UNIT; Start 11/14/16 at 20:00 Nicotine (Nicoderm 21 Mg/ 24hr) 1 patch DAILY TRANSDERM Last administered on 12:47; Admin Dose 1 PATCH; Start 11/14/16 at 20:00 Docusate Sodium 100 mg 100 mg Q12H PO Last administered on 11/23/16 11:42; Admin Dose 100 MG; Start 11/16/16 at 22:00 Vancomycin HCl (Vancocin) 250 ml @ 125 mls/hr Q96H IVPB Last administered on 18:04; Admin Dose 125 MLS/HR; Start 11/16/16 at 17:00 Miscellaneous Information 1 ea NOTE XX ; Start 11/17/16 at 11:30 Glucose (Glutose) 15 gm Q15M PRN PO DECREASED GLUCOSE; Start 11/17/16 at 11:30 Glucose (Glutose) 22.5 gm Q15M PRN PO DECREASED GLUCOSE; Start 11/17/16 at 11:30 Dextrose (D50w Syringe) 25 ml Q15M PRN IV DECREASED GLUCOSE; Start 11/17/16 at 11:30 Dextrose (D50w Syringe) 50 ml Q15M PRN IV DECREASED GLUCOSE; Start 11/17/16 at 11:30 Glucagon (Glucagen) 1 mg Q15M PRN IM DECREASED GLUCOSE; Start 11/17/16 at 11:30 Glucose (Glutose) 15 gm Q15M PRN BUCCAL DECREASED GLUCOSE; Start 11/17/16 at 11: 30 Polyethylene Glycol (Miralax) 17 gm BID PO Last administered on 11/23/16 21:01 ; Admin Dose 17 GM; Start 11/17/16 at 12:00 Bisacodyl (Dulcolax) 10 mg DAILY PRN PO CONSTIPATION; Start 11/17/16 at 11:30 Diltiazem HCl (Cardizem Cd) 120 mg BID PO Last administered on 11/23/16 21:03 ; Admin Dose 120 MG; Start 11/19/16 at 21:00 Zolpidem Tartrate (Ambien) 5 mg HS PRN PO INSOMNIA Last administered on 02:17; Admin Dose 5 MG; Start 11/19/16 at 21:30 Lorazepam (Ativan) 1 mg Q6H PRN IV AGITATION/ANXIETY Last administered on 06:13; Admin Dose 1 MG; Start 11/21/16 at 21:15 Guaifenesin/ Codeine Phosphate 5 ml 5 ml Q4H PRN PO COUGH Last administered on 11/22/16 08:42; Admin Dose 5 ML; Start 11/21/16 at 21:30 Meropenem (Merrem 500 Mg/ 100 ml (Pmx)) 100 ml @ 200 mls/hr Q24H IVPB Last administered on 11/23/16 16:53; Admin Dose 200 MLS/HR; Start 11/23/16 at 16:00 Miscellaneous Information (*Rx Drug Level Order Reminder*) 1 ONCE ONCE XX ; Start 11/24/16 at 16:00; Stop 11/24/16 at 16:01 VIPUL LANTIGUA MD Nov 24, 2016 13:52
[2016-11-24] MEDS: CARISOPRODOL 350 MG TAB PO PRN (14:19)
--- NOTE | 2016-11-24 14:49 | CONS ---
Date/Time of Note Date/Time of Note DATE: 11/24/16 TIME: 14:48 Assessment/Plan Assessment/Plan Chief Complaint/Hosp Course - ESRD on Hemodialysis TTS @ [facility] - POST FALL - ACUTE ANEMIA - Hx of Cellulitis - CAD/CHF - Hx of Hypertension PLAN: Bedside dialysis Aim for UF ~ 2 Kg Monitor H/H Regular HD days are TTS Started EPOGEN [place] Problems: Consultation Date/Type/Reason Admit Date/Time Nov 11, 2016 at 06:40 Initial Consult Date 11/12/16 Type of Consultation: NEPHROLOGY Reason for Consultation ESRD on dialysis 24 HR Interval Summary Constitutional: improved, no complaints Exam/Review of Systems Vital Signs Vitals Vital Signs Date Time Temp Pulse Resp B/P Pulse Ox O2 Delivery O2 Flow Rate FiO2 11/24/16 12:30 71 11/24/16 11:25 97.9 20 97/45 92 11/20/16 23:28 Nasal Cannula 3.0 Intake and Output 11/23/16 11/23/16 11/24/16 15:00 23:00 07:00 Intake Total 450 ml Balance 450 ml Exam Constitutional: alert, oriented Neck: supple Respiratory: crackles/rales Cardiovascular: edema Gastrointestinal: soft Results Result Diagram: 11/24/16 0708 11/24/16 0708 Results 24 hrs Laboratory Tests Test 11/23/16 17:29 11/23/16 21:00 11/24/16 07:08 11/24/16 08:53 Bedside Glucose 147 156 129 White Blood Count 16.6 H Red Blood Count 2.72 L Hemoglobin 8.1 L Hematocrit 27.4 L Mean Corpuscular Volume 100.7 Mean Corpuscular Hemoglobin 29.8 Mean Corpuscular Hemoglobin Concent 29.6 L Red Cell Distribution Width 19.7 H Platelet Count 533 H Mean Platelet Volume 9.3 Neutrophils % 69.4 Lymphocytes % 11.7 L Monocytes % 12.0 H Eosinophils % 1.7 Basophils % 0.7 Nucleated Red Blood Cells % 2.2 H Neutrophils # 11.5 H Lymphocytes # 1.9 Monocytes # 2.0 H Eosinophils # 0.3 Basophils # 0.1 Nucleated Red Blood Cells # 0.4 H Sodium Level 138 Potassium Level 3.6 Chloride Level 100 Carbon Dioxide Level 30 Anion Gap 12 Blood Urea Nitrogen 43 H Creatinine 4.10 H Glucose Level 138 Calcium Level 10.1 Test 11/24/16 12:45 Bedside Glucose 166 Medications Medications Current Medications Amlodipine Besylate (Norvasc) 5 mg DAILY PO Last administered on 11/21/16 08:51 ; Admin Dose 5 MG; Start 11/11/16 at 09:30 Apixaban (Eliquis) 5 mg BID PO Last administered on 11/24/16 09:09; Admin Dose 5 MG; Start 11/11/16 at 09:30 Aspirin (Aspirin) 81 mg DAILY PO Last administered on 11/24/16 09:08; Admin Dose 81 MG; Start 11/11/16 at 09:30 Atorvastatin Calcium (Lipitor) 40 mg QHS PO Last administered on 11/23/16 21: 03; Admin Dose 40 MG; Start 11/11/16 at 21:00 Benzonatate (Tessalon) 100 mg Q6 PO Last administered on 11/24/16 12:46; Admin Dose 100 MG; Start 11/11/16 at 12:00 Carisoprodol (Soma) 350 mg Q8 PRN PO MUSCLE SPASMS Last administered on 14:19; Admin Dose 350 MG; Start 11/11/16 at 12:00 Cinacalcet (Sensipar) 30 mg DAILY PO Last administered on 11/24/16 08:56; Admin Dose 30 MG; Start 11/11/16 at 11:00 Furosemide (Lasix) 80 mg DAILY PO Last administered on 11/23/16 08:29; Admin Dose 80 MG; Start 11/11/16 at 09:30 Losartan Potassium (Cozaar) 50 mg BID PO Last administered on 11/23/16 21:02; Admin Dose 50 MG; Start 11/11/16 at 09:30 Metoprolol Succinate (Toprol Xl) 50 mg BID PO Last administered on 11/23/16 21 :02; Admin Dose 50 MG; Start 11/11/16 at 09:30 Montelukast Sodium (Singulair) 10 mg QAM PO Last administered on 11/24/16 08: 57; Admin Dose 10 MG; Start 11/11/16 at 11:00 Oxycodone/ Acetaminophen (Endocet (10/ 325)) 1 tab Q6 PRN PO PRN Last administered on 11/22/16 16:24; Admin Dose 1 TAB; Start 11/11/16 at 12:00 Pyridoxine HCl (Vitamin B6) 50 mg DAILY PO Last administered on 11/24/16 08:56 ; Admin Dose 50 MG; Start 11/11/16 at 09:30 Tiotropium [place] (Spiriva) 1 inh DAILY INH Last administered on 11/24/16 09: 00; Admin Dose 1 INH; Start 11/11/16 at 11:00 Ondansetron HCl (Zofran Tab) 4 mg Q6H PRN PO NAUSEA AND/OR VOMITING Last administered on 11/22/16 08:46; Admin Dose 4 MG; Start 11/11/16 at 10:00 Salmeterol Xinafoate/ Fluticasone (Advair 250/50 Diskus) 1 inh BID INH Last administered on 11/24/16 09:11; Admin Dose 1 INH; Start 11/11/16 at 11:00 Vancomycin HCl (Vanco Iv Per Pharmacy) PER PHARMACY DOSING NOTE XX ; Start 11/11 at 10:30 Albuterol (Ventolin Hfa) 2 puff Q4H PRN INH AOB Last administered on 11/22/16 08:41; Admin Dose 2 PUFF; Start 11/11/16 at 10:30 Epoetin Hang (Epogen (Esrd)) 10,000 units TuThSa@17 SC Last administered on 17:32; Admin Dose 10,000 UNITS; Start 11/11/16 at 17:00 Pantoprazole (Protonix Tab) 40 mg BID@06,18 PO Last administered on 11/24/16 05:58; Admin Dose 40 MG; Start 11/12/16 at 18:00 Collagenase (Santyl) 1 applic DAILY TOP Last administered on 11/24/16 09:11; Admin Dose 1 APPLIC; Start 11/13/16 at 09:00 Diagnostic Test (Pha) (Accu-Chek) 1 ea 02 XX Last administered on 11/18/16 01: 42; Admin Dose 1 EA; Start 11/14/16 at 02:00 Insulin Detemir (Levemir) 35 unit QHS@20 SC Last administered on 11/23/16 21: 05; Admin Dose 35 UNIT; Start 11/14/16 at 20:00 Nicotine (Nicoderm 21 Mg/ 24hr) 1 patch DAILY TRANSDERM Last administered on 12:47; Admin Dose 1 PATCH; Start 11/14/16 at 20:00 Docusate Sodium 100 mg 100 mg Q12H PO Last administered on 11/23/16 11:42; Admin Dose 100 MG; Start 11/16/16 at 22:00 Vancomycin HCl (Vancocin) 250 ml @ 125 mls/hr Q96H IVPB Last administered on 18:04; Admin Dose 125 MLS/HR; Start 11/16/16 at 17:00 Miscellaneous Information 1 ea NOTE XX ; Start 11/17/16 at 11:30 Glucose (Glutose) 15 gm Q15M PRN PO DECREASED GLUCOSE; Start 11/17/16 at 11:30 Glucose (Glutose) 22.5 gm Q15M PRN PO DECREASED GLUCOSE; Start 11/17/16 at 11:30 Dextrose (D50w Syringe) 25 ml Q15M PRN IV DECREASED GLUCOSE; Start 11/17/16 at 11:30 Dextrose (D50w Syringe) 50 ml Q15M PRN IV DECREASED GLUCOSE; Start 11/17/16 at 11:30 Glucagon (Glucagen) 1 mg Q15M PRN IM DECREASED GLUCOSE; Start 11/17/16 at 11:30 Glucose (Glutose) 15 gm Q15M PRN BUCCAL DECREASED GLUCOSE; Start 11/17/16 at 11: 30 Polyethylene Glycol (Miralax) 17 gm BID PO Last administered on 11/23/16 21:01 ; Admin Dose 17 GM; Start 11/17/16 at 12:00 Bisacodyl (Dulcolax) 10 mg DAILY PRN PO CONSTIPATION; Start 11/17/16 at 11:30 Diltiazem HCl (Cardizem Cd) 120 mg BID PO Last administered on 11/23/16 21:03 ; Admin Dose 120 MG; Start 11/19/16 at 21:00 Zolpidem Tartrate (Ambien) 5 mg HS PRN PO INSOMNIA Last administered on 02:17; Admin Dose 5 MG; Start 11/19/16 at 21:30 Lorazepam (Ativan) 1 mg Q6H PRN IV AGITATION/ANXIETY Last administered on 06:13; Admin Dose 1 MG; Start 11/21/16 at 21:15 Guaifenesin/ Codeine Phosphate 5 ml 5 ml Q4H PRN PO COUGH Last administered on 11/22/16 08:42; Admin Dose 5 ML; Start 11/21/16 at 21:30 Meropenem (Merrem 500 Mg/ 100 ml (Pmx)) 100 ml @ 200 mls/hr Q24H IVPB Last administered on 11/23/16 16:53; Admin Dose 200 MLS/HR; Start 11/23/16 at 16:00 Miscellaneous Information (*Rx Drug Level Order Reminder*) 1 ONCE ONCE XX ; Start 11/24/16 at 16:00; Stop 11/24/16 at 16:01 BECKY GAMBLE MD Nov 24, 2016 14:49
[2016-11-24] MEDS: MEROPENEM 500 MG/100 ML (PMX) 100 ML IVPB SCH (15:52)
[2016-11-24] MEDS: VANCOMYCIN 1 GM in NS 250 ML IVPB SCH (17:00)
[2016-11-24] MEDS: OXYCODONE/ACETAMINOPHEN (10/325) TAB PO PRN (17:38)
[2016-11-24] MEDS: ATORVASTATIN 40 MG TAB PO SCH (20:49)
[2016-11-24] MEDS: morphine 2 MG INJ IV PRN (20:57)
[2016-11-24] MEDS: INSULIN DETEMIR [LEVEMIR] 3ML CART SC SCH (21:15)
[2016-11-25] MEDS: morphine 2 MG INJ IV PRN ×3 (01:55→08:51)
[2016-11-25] MEDS: ACCU-CHEK XX SCH (01:59)
[2016-11-25] MEDS: BENZONATATE 100 MG CAP PO SCH ×4 (02:08→16:54)
[2016-11-25] MEDS: OXYCODONE/ACETAMINOPHEN (10/325) TAB PO PRN (03:06)
[2016-11-25 05:07] LABS: ADD SCAN DIFF NO
[2016-11-25 05:10] LABS: ABNORMAL IP MESSAGE 1; BASOPHIL # 0.1 10^3/ul (0.0-0.1); BASOPHILS % 0.7 % (0.0-2.0); EOSINOPHILS # 0.4 10^3/ul (0.0-0.5); EOSINOPHILS % 2.1 % (0.0-7.0); HEMATOCRIT 27.6 % (37.0-47.0); HEMOGLOBIN 7.9 g/dl (12.0-16.0); MEAN CORPUSCULAR HEMOGLOBIN 29.2 pg (29.0-33.0); MEAN CORPUSCULAR HGB CONC 28.6 g/dl (32.0-37.0); MEAN CORPUSCULAR VOLUME 101.8 fl (82.0-101.0); MEAN PLATELET VOLUME 9.4 fl (7.4-10.4); MONOCYTE # 2.2 10^3/ul (0.3-0.9); NEUTROPHIL # 12.5 10^3/ul (1.6-7.5); NEUTROPHILS % 69.6 % (39.0-77.0); NUCLEATED RED BLOOD CELLS # 0.4 10^3/ul (0.0-0.0); NUCLEATED RED BLOOD CELLS% 2.4 /100WBC (0.0-0.0); PLATELET COUNT 519 10^3/UL (140-415); RED BLOOD COUNT 2.71 10^6/ul (4.20-5.40); RED CELL DISTRIBUTION WIDTH 19.7 % (11.5-14.5)
[2016-11-25 05:22] LABS: MONOCYTES % 12.2 % (0.0-11.0)
[2016-11-25] MEDS: PANTOPRAZOLE (EC) 40 MG TAB PO SCH ×2 (05:23→16:54)
[2016-11-25 05:35] LABS: CALCIUM 10.3 mg/dl (8.4-10.2); CREATININE 3.55 mg/dl (0.44-1.00); POTASSIUM 4.1 mmol/L (3.5-5.1)
[2016-11-25] MEDS: SALMETEROL/FLUTICASONE 250/50 INHA INH SCH ×2 (07:55→20:34)
[2016-11-25] MEDS: POLYETHYLENE GLYCOL 17 GM PACKET PO SCH ×2 (07:55→20:36)
[2016-11-25] MEDS: MONTELUKAST 10 MG TAB PO SCH (07:56)
[2016-11-25] MEDS: NICOTINE (21 MG/24 HR) PATCH TRANSDERM SCH (07:56)
[2016-11-25] MEDS: INSULIN ASPART [NOVOLOG] 3 ML PEN SC SCH ×4 (08:00→20:35)
[2016-11-25 08:21] VITALS: BP 106/51; RESP 16
[2016-11-25] MEDS: COLLAGENASE 30 GM TUBE TOP SCH (08:42)
[2016-11-25] MEDS: CALCIUM ACETATE 667 MG CAP PO SCH ×3 (08:43→16:54)
[2016-11-25] MEDS: APIXABAN 5 MG TABLET PO SCH ×2 (08:43→20:34)
[2016-11-25] MEDS: FUROSEMIDE 40 MG TAB PO SCH (08:43)
[2016-11-25] MEDS: METOCLOPRAMIDE 5 MG TAB PO SCH ×3 (08:44→16:54)
[2016-11-25] MEDS: DOCUSATE SODIUM 100 MG CAP PO SCH ×2 (08:44→21:13)
[2016-11-25] MEDS: PYRIDOXINE 50 MG TAB PO SCH (08:44)
[2016-11-25] MEDS: ASPIRIN 81 MG TAB PO SCH (08:44)
[2016-11-25] MEDS: DILTIAZEM (CD) 120 MG CAP PO SCH ×2 (09:00→20:36)
[2016-11-25] MEDS: AMLODIPINE 5 MG TAB PO SCH (09:00)
[2016-11-25] MEDS: TIOTROPIUM 18 MCG CAPSULE INHA DEV INH SCH (09:00)
[2016-11-25] MEDS: METOPROLOL (XL) 50 MG TAB PO SCH ×2 (09:00→20:35)
[2016-11-25] MEDS: LOSARTAN 50 MG TAB PO SCH ×2 (09:00→20:35)
[2016-11-25] MEDS: CINACALCET 30 MG TAB PO SCH (09:00)
[2016-11-25] MEDS: ALBUTEROL 18 GM INHALER INH PRN (12:06)
[2016-11-25] MEDS: LORAZEPAM 2 MG INJ IV PRN (12:15)
--- NOTE | 2016-11-25 14:22 | CONS ---
Date/Time of Note Date/Time of Note DATE: 11/25/16 TIME: 14:21 Assessment/Plan Assessment/Plan Chief Complaint/Hosp Course Awake, looks comfortable, no fevers, no nausea vomiting diarrhea Indwelling's: Left upper extremity AV fistula Antimicrobials: Vancomycin, Merrem Physical examination: Morbidly obese well-developed, ill-appearing elderly woman in no distress. Head atraumatic, normocephalic. Sclerae nonicteric. Neck is obese. Chest rise symmetrical, breath sounds diminished basis. Heart S1-S2. Abdomen obese soft bowel tones present. Extremities with bilateral edema, patient has multiple lesions on her lower extremities erythema resolving, she has a left upper thigh wound VAC. ASSESSMENT: 1. Acute encephalopathy, likely toxic metabolic 2. Bilateral lower extremities chronic venous stasis with chronic cellulitis and left hip wound, s/p debridement and wound vac application 10/19/16. 3. End-stage renal disease, on hemodialysis. 4. Morbid obesity. 5. Atrial fibrillation. 6. Healthcare associated pneumonia, possibly aspiration 7. Allergy: Penicillin, Cipro Plan: Remains stable, started on Merrem 2 to right basilar pneumonia, continue vancomycin, anti-aspiration measures, encourage incentive spirometry, local wound care as per surgical team. DW staff Problems: Consultation Date/Type/Reason Admit Date/Time Nov 11, 2016 at 06:40 Initial Consult Date 11/12/16 Type of Consultation: ID Exam/Review of Systems Vital Signs Vitals Vital Signs Date Time Temp Pulse Resp B/P Pulse Ox O2 Delivery O2 Flow Rate FiO2 11/25/16 08:21 98.0 75 16 106/51 92 Intake and Output 11/24/16 11/24/16 11/25/16 15:00 23:00 07:00 Intake Total 300 ml 500 ml Output Total 3300 ml Balance -3000 ml 500 ml Results Result Diagram: 11/25/16 0455 11/25/16 0459 Results 24 hrs Laboratory Tests Test 11/24/16 15:45 11/24/16 17:35 11/24/16 20:47 11/25/16 01:58 Vancomycin Level Trough 14.5 Bedside Glucose 163 167 115 Test 11/25/16 04:55 11/25/16 04:59 11/25/16 07:51 White Blood Count 18.0 H Red Blood Count 2.71 L Hemoglobin 7.9 L Hematocrit 27.6 L Mean Corpuscular Volume 101.8 H Mean Corpuscular Hemoglobin 29.2 Mean Corpuscular Hemoglobin Concent 28.6 L Red Cell Distribution Width 19.7 H Platelet Count 519 H Mean Platelet Volume 9.4 Neutrophils % 69.6 Lymphocytes % 11.0 L Monocytes % 12.2 H Eosinophils % 2.1 Basophils % 0.7 Nucleated Red Blood Cells % 2.4 H Neutrophils # 12.5 H Lymphocytes # 2.0 Monocytes # 2.2 H Eosinophils # 0.4 Basophils # 0.1 Nucleated Red Blood Cells # 0.4 H Sodium Level 134 L Potassium Level 4.1 Chloride Level 97 Carbon Dioxide Level 30 Anion Gap 11 Blood Urea Nitrogen 39 H Creatinine 3.55 H Glucose Level 120 Calcium Level 10.3 H Bedside Glucose 99 Medications Medications Current Medications Amlodipine Besylate (Norvasc) 5 mg DAILY PO Last administered on 11/21/16 08:51 ; Admin Dose 5 MG; Start 11/11/16 at 09:30 Apixaban (Eliquis) 5 mg BID PO Last administered on 11/25/16 08:43; Admin Dose 5 MG; Start 11/11/16 at 09:30 Aspirin (Aspirin) 81 mg DAILY PO Last administered on 11/25/16 08:44; Admin Dose 81 MG; Start 11/11/16 at 09:30 Atorvastatin Calcium (Lipitor) 40 mg QHS PO Last administered on 11/24/16 20: 49; Admin Dose 40 MG; Start 11/11/16 at 21:00 Benzonatate (Tessalon) 100 mg Q6 PO Last administered on 11/25/16 05:23; Admin Dose 100 MG; Start 11/11/16 at 12:00 Carisoprodol (Soma) 350 mg Q8 PRN PO MUSCLE SPASMS Last administered on 14:19; Admin Dose 350 MG; Start 11/11/16 at 12:00 Cinacalcet (Sensipar) 30 mg DAILY PO Last administered on 11/24/16 08:56; Admin Dose 30 MG; Start 11/11/16 at 11:00 Furosemide (Lasix) 80 mg DAILY PO Last administered on 11/23/16 08:29; Admin Dose 80 MG; Start 11/11/16 at 09:30 Losartan Potassium (Cozaar) 50 mg BID PO Last administered on 11/23/16 21:02; Admin Dose 50 MG; Start 11/11/16 at 09:30 Metoprolol Succinate (Toprol Xl) 50 mg BID PO Last administered on 11/23/16 21 :02; Admin Dose 50 MG; Start 11/11/16 at 09:30 Montelukast Sodium (Singulair) 10 mg QAM PO Last administered on 11/25/16 07: 56; Admin Dose 10 MG; Start 11/11/16 at 11:00 Oxycodone/ Acetaminophen (Endocet (10/ 325)) 1 tab Q6 PRN PO PRN Last administered on 11/25/16 03:06; Admin Dose 1 TAB; Start 11/11/16 at 12:00 Pyridoxine HCl (Vitamin B6) 50 mg DAILY PO Last administered on 11/25/16 08:44 ; Admin Dose 50 MG; Start 11/11/16 at 09:30 Tiotropium [place] (Spiriva) 1 inh DAILY INH Last administered on 11/24/16 09: 00; Admin Dose 1 INH; Start 11/11/16 at 11:00 Ondansetron HCl (Zofran Tab) 4 mg Q6H PRN PO NAUSEA AND/OR VOMITING Last administered on 11/22/16 08:46; Admin Dose 4 MG; Start 11/11/16 at 10:00 Salmeterol Xinafoate/ Fluticasone (Advair 250/50 Diskus) 1 inh BID INH Last administered on 11/25/16 07:55; Admin Dose 1 INH; Start 11/11/16 at 11:00 Vancomycin HCl (Vanco Iv Per Pharmacy) PER PHARMACY DOSING NOTE XX ; Start 11/11 at 10:30 Albuterol (Ventolin Hfa) 2 puff Q4H PRN INH AOB Last administered on 11/25/16 12:06; Admin Dose 2 PUFF; Start 11/11/16 at 10:30 Epoetin Hang (Epogen (Esrd)) 10,000 units TuThSa@17 SC Last administered on 17:32; Admin Dose 10,000 UNITS; Start 11/11/16 at 17:00 Pantoprazole (Protonix Tab) 40 mg BID@06,18 PO Last administered on 11/25/16 05:23; Admin Dose 40 MG; Start 11/12/16 at 18:00 Collagenase (Santyl) 1 applic DAILY TOP Last administered on 11/25/16 08:42; Admin Dose 1 APPLIC; Start 11/13/16 at 09:00 Diagnostic Test (Pha) (Accu-Chek) 1 ea 02 XX Last administered on 11/18/16 01: 42; Admin Dose 1 EA; Start 11/14/16 at 02:00 Insulin Detemir (Levemir) 35 unit QHS@20 SC Last administered on 11/24/16 21: 15; Admin Dose 35 UNIT; Start 11/14/16 at 20:00 Nicotine (Nicoderm 21 Mg/ 24hr) 1 patch DAILY TRANSDERM Last administered on 07:56; Admin Dose 1 PATCH; Start 11/14/16 at 20:00 Docusate Sodium (Colace) 100 mg Q12H PO Last administered on 11/25/16 08:44; Admin Dose 100 MG; Start 11/16/16 at 22:00 Miscellaneous Information 1 ea NOTE XX ; Start 11/17/16 at 11:30 Glucose (Glutose) 15 gm Q15M PRN PO DECREASED GLUCOSE; Start 11/17/16 at 11:30 Glucose (Glutose) 22.5 gm Q15M PRN PO DECREASED GLUCOSE; Start 11/17/16 at 11:30 Dextrose (D50w Syringe) 25 ml Q15M PRN IV DECREASED GLUCOSE; Start 11/17/16 at 11:30 Dextrose (D50w Syringe) 50 ml Q15M PRN IV DECREASED GLUCOSE; Start 11/17/16 at 11:30 Glucagon (Glucagen) 1 mg Q15M PRN IM DECREASED GLUCOSE; Start 11/17/16 at 11:30 Glucose (Glutose) 15 gm Q15M PRN BUCCAL DECREASED GLUCOSE; Start 11/17/16 at 11: 30 Polyethylene Glycol (Miralax) 17 gm BID PO Last administered on 11/25/16 07:55 ; Admin Dose 17 GM; Start 11/17/16 at 12:00 Bisacodyl (Dulcolax) 10 mg DAILY PRN PO CONSTIPATION; Start 11/17/16 at 11:30 Diltiazem HCl (Cardizem Cd) 120 mg BID PO Last administered on 11/24/16 20:53 ; Admin Dose 120 MG; Start 11/19/16 at 21:00 Zolpidem Tartrate (Ambien) 5 mg HS PRN PO INSOMNIA Last administered on 02:17; Admin Dose 5 MG; Start 11/19/16 at 21:30 Lorazepam (Ativan) 1 mg Q6H PRN IV AGITATION/ANXIETY Last administered on 06:13; Admin Dose 1 MG; Start 11/21/16 at 21:15 Guaifenesin/ Codeine Phosphate 5 ml 5 ml Q4H PRN PO COUGH Last administered on 11/22/16 08:42; Admin Dose 5 ML; Start 11/21/16 at 21:30 Meropenem (Merrem 500 Mg/ 100 ml (Pmx)) 100 ml @ 200 mls/hr Q24H IVPB Last administered on 11/24/16 15:52; Admin Dose 200 MLS/HR; Start 11/23/16 at 16:00 Morphine Sulfate 2 mg 2 mg Q3H PRN IV for pain Last administered on 11/25/16 08:51; Admin Dose 2 MG; Start 11/24/16 at 18:30 Vancomycin HCl (Vancocin) 250 ml @ 125 mls/hr Q96H IVPB ; Start 11/25/16 at 15: 00 TODD RAMIRES NP Nov 25, 2016 14:22
[2016-11-25 14:33] VITALS: BP 120/68; RESP 18
[2016-11-25] MEDS: MEROPENEM 500 MG/100 ML (PMX) 100 ML IVPB SCH (15:13)
[2016-11-25] MEDS: VANCOMYCIN 1 GM in NS 250 ML IVPB SCH (15:53)
--- NOTE | 2016-11-25 15:55 | PN ---
Date/Time of Note Date/Time of Note DATE: 11/25/16 TIME: 15:53 Assessment/Plan VTE Prophylaxis VTE Prophylaxis Intervention: other Lines/Catheters IV Catheter Type (from Nrs): Saline Lock Urinary Cath still in place: No Assessment/Plan Assessment/Plan 1. 3. Bilateral lower extremities chronic venous stasis with chronic cellulitis and left hip wound, s/p debridement and wound vac application 10/19/16, wound care and antibiotics, higher WBC today 2. Pneumonia, higher WBC but better mental status indicating the leukocytosis is likely more wound related, on meropenem and vancomycin 3. UTI, on antibiotics 4. Diabetes mellitus, on insulin 5. Chronic atrial fibrillation, controlled rate, on cardizem and eliquis 6. Hypertension, controlled 7. End-stage renal disease, on hemodialysis TTS 8. Normocytic anemia, on epogen 9. Allergy: Penicillin, Cipro 10. DVT prophylaxis: eliquis Subjective 24 Hr Interval Summary Free Text/Dictation afebrile. alert, no distress Exam/Review of Systems Vital Signs Vitals Vital Signs Date Time Temp Pulse Resp B/P Pulse Ox O2 Delivery O2 Flow Rate FiO2 11/25/16 14:33 98.1 87 18 120/68 91 Intake and Output 11/24/16 11/24/16 11/25/16 15:00 23:00 07:00 Intake Total 300 ml 500 ml Output Total 3300 ml Balance -3000 ml 500 ml Exam Constitutional: alert, oriented, well developed Head: atraumatic, normocephalic Eyes: EOMI, PERRL, nl conjunctiva, nl lids ENMT: nl external ears & nose, nl lips & teeth, nl nasal mucosa & septum Neck: supple Respiratory: clear to auscultation, normal air movement, No congested cough, No crackles/rales, No diminished breath sounds, No intercostal retraction, No labored breathing, No other, No respirations, No tactile fremitus, No wheezing Cardiovascular: nl pulses, regular rate and rhythm, No S3, No S4, No bruits, No diastolic murmur, No edema, No gallop, No irregular rhythm, No jugular venous distention (JVD), No murmurs/extra sounds, No other, No rub, No systolic murmur Gastrointestinal: nl liver, spleen, non-tender, soft, No ascites, No bowel sounds, No distended, No firm, No hepatomegaly, No mass , No other, No rebound or guarding, No splenomegaly, No surgical scars, No tender Musculoskeletal: nl extremities to inspection Extremities: normal pulses, No calf tenderness, No clubbing, No cyanosis 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, nl mental status, nl speech, nl strength Results Result Diagram: 11/25/16 0455 11/25/16 0459 Results 24 hrs Laboratory Tests Test 11/24/16 17:35 11/24/16 20:47 11/25/16 01:58 11/25/16 04:55 Bedside Glucose 163 167 115 White Blood Count 18.0 H Red Blood Count 2.71 L Hemoglobin 7.9 L Hematocrit 27.6 L Mean Corpuscular Volume 101.8 H Mean Corpuscular Hemoglobin 29.2 Mean Corpuscular Hemoglobin Concent 28.6 L Red Cell Distribution Width 19.7 H Platelet Count 519 H Mean Platelet Volume 9.4 Neutrophils % 69.6 Lymphocytes % 11.0 L Monocytes % 12.2 H Eosinophils % 2.1 Basophils % 0.7 Nucleated Red Blood Cells % 2.4 H Neutrophils # 12.5 H Lymphocytes # 2.0 Monocytes # 2.2 H Eosinophils # 0.4 Basophils # 0.1 Nucleated Red Blood Cells # 0.4 H Test 11/25/16 04:59 11/25/16 07:51 Sodium Level 134 L Potassium Level 4.1 Chloride Level 97 Carbon Dioxide Level 30 Anion Gap 11 Blood Urea Nitrogen 39 H Creatinine 3.55 H Glucose Level 120 Calcium Level 10.3 H Bedside Glucose 99 Medications Medications Current Medications Amlodipine Besylate (Norvasc) 5 mg DAILY PO Last administered on 11/21/16 08:51 ; Admin Dose 5 MG; Start 11/11/16 at 09:30 Apixaban (Eliquis) 5 mg BID PO Last administered on 11/25/16 08:43; Admin Dose 5 MG; Start 11/11/16 at 09:30 Aspirin (Aspirin) 81 mg DAILY PO Last administered on 11/25/16 08:44; Admin Dose 81 MG; Start 11/11/16 at 09:30 Atorvastatin Calcium (Lipitor) 40 mg QHS PO Last administered on 11/24/16 20: 49; Admin Dose 40 MG; Start 11/11/16 at 21:00 Benzonatate (Tessalon) 100 mg Q6 PO Last administered on 11/25/16 05:23; Admin Dose 100 MG; Start 11/11/16 at 12:00 Carisoprodol (Soma) 350 mg Q8 PRN PO MUSCLE SPASMS Last administered on 14:19; Admin Dose 350 MG; Start 11/11/16 at 12:00 Cinacalcet (Sensipar) 30 mg DAILY PO Last administered on 11/24/16 08:56; Admin Dose 30 MG; Start 11/11/16 at 11:00 Furosemide (Lasix) 80 mg DAILY PO Last administered on 11/23/16 08:29; Admin Dose 80 MG; Start 11/11/16 at 09:30 Losartan Potassium (Cozaar) 50 mg BID PO Last administered on 11/23/16 21:02; Admin Dose 50 MG; Start 11/11/16 at 09:30 Metoprolol Succinate (Toprol Xl) 50 mg BID PO Last administered on 11/23/16 21 :02; Admin Dose 50 MG; Start 11/11/16 at 09:30 Montelukast Sodium (Singulair) 10 mg QAM PO Last administered on 11/25/16 07: 56; Admin Dose 10 MG; Start 11/11/16 at 11:00 Oxycodone/ Acetaminophen (Endocet (10/ 325)) 1 tab Q6 PRN PO PRN Last administered on 11/25/16 03:06; Admin Dose 1 TAB; Start 11/11/16 at 12:00 Pyridoxine HCl (Vitamin B6) 50 mg DAILY PO Last administered on 11/25/16 08:44 ; Admin Dose 50 MG; Start 11/11/16 at 09:30 Tiotropium [place] (Spiriva) 1 inh DAILY INH Last administered on 11/24/16 09: 00; Admin Dose 1 INH; Start 11/11/16 at 11:00 Ondansetron HCl (Zofran Tab) 4 mg Q6H PRN PO NAUSEA AND/OR VOMITING Last administered on 11/22/16 08:46; Admin Dose 4 MG; Start 11/11/16 at 10:00 Salmeterol Xinafoate/ Fluticasone (Advair 250/50 Diskus) 1 inh BID INH Last administered on 11/25/16 07:55; Admin Dose 1 INH; Start 11/11/16 at 11:00 Vancomycin HCl (Vanco Iv Per Pharmacy) PER PHARMACY DOSING NOTE XX ; Start 11/11 at 10:30 Albuterol (Ventolin Hfa) 2 puff Q4H PRN INH AOB Last administered on 11/25/16 12:06; Admin Dose 2 PUFF; Start 11/11/16 at 10:30 Epoetin Hang (Epogen (Esrd)) 10,000 units TuThSa@17 SC Last administered on 17:32; Admin Dose 10,000 UNITS; Start 11/11/16 at 17:00 Pantoprazole (Protonix Tab) 40 mg BID@,18 PO Last administered on 11/25/16 05:23; Admin Dose 40 MG; Start 11/12/16 at 18:00 Collagenase (Santyl) 1 applic DAILY TOP Last administered on 11/25/16 08:42; Admin Dose 1 APPLIC; Start 11/13/16 at 09:00 Diagnostic Test (Pha) (Accu-Chek) 1 ea 02 XX Last administered on 11/18/16 01: 42; Admin Dose 1 EA; Start 11/14/16 at 02:00 Insulin Detemir (Levemir) 35 unit QHS@20 SC Last administered on 11/24/16 21: 15; Admin Dose 35 UNIT; Start 11/14/16 at 20:00 Nicotine (Nicoderm 21 Mg/ 24hr) 1 patch DAILY TRANSDERM Last administered on 07:56; Admin Dose 1 PATCH; Start 11/14/16 at 20:00 Docusate Sodium (Colace) 100 mg Q12H PO Last administered on 11/25/16 08:44; Admin Dose 100 MG; Start 11/16/16 at 22:00 Miscellaneous Information 1 ea NOTE XX ; Start 11/17/16 at 11:30 Glucose (Glutose) 15 gm Q15M PRN PO DECREASED GLUCOSE; Start 11/17/16 at 11:30 Glucose (Glutose) 22.5 gm Q15M PRN PO DECREASED GLUCOSE; Start 11/17/16 at 11:30 Dextrose (D50w Syringe) 25 ml Q15M PRN IV DECREASED GLUCOSE; Start 11/17/16 at 11:30 Dextrose (D50w Syringe) 50 ml Q15M PRN IV DECREASED GLUCOSE; Start 11/17/16 at 11:30 Glucagon (Glucagen) 1 mg Q15M PRN IM DECREASED GLUCOSE; Start 11/17/16 at 11:30 Glucose (Glutose) 15 gm Q15M PRN BUCCAL DECREASED GLUCOSE; Start 11/17/16 at 11: 30 Polyethylene Glycol (Miralax) 17 gm BID PO Last administered on 11/25/16 07:55 ; Admin Dose 17 GM; Start 11/17/16 at 12:00 Bisacodyl (Dulcolax) 10 mg DAILY PRN PO CONSTIPATION; Start 11/17/16 at 11:30 Diltiazem HCl (Cardizem Cd) 120 mg BID PO Last administered on 11/24/16 20:53 ; Admin Dose 120 MG; Start 11/19/16 at 21:00 Zolpidem Tartrate (Ambien) 5 mg HS PRN PO INSOMNIA Last administered on 02:17; Admin Dose 5 MG; Start 11/19/16 at 21:30 Lorazepam (Ativan) 1 mg Q6H PRN IV AGITATION/ANXIETY Last administered on 06:13; Admin Dose 1 MG; Start 11/21/16 at 21:15 Guaifenesin/ Codeine Phosphate 5 ml 5 ml Q4H PRN PO COUGH Last administered on 11/22/16 08:42; Admin Dose 5 ML; Start 11/21/16 at 21:30 Meropenem (Merrem 500 Mg/ 100 ml (Pmx)) 100 ml @ 200 mls/hr Q24H IVPB Last administered on 11/25/16 15:13; Admin Dose 200 MLS/HR; Start 11/23/16 at 16:00 Morphine Sulfate 2 mg 2 mg Q3H PRN IV for pain Last administered on 11/25/16 08:51; Admin Dose 2 MG; Start 11/24/16 at 18:30 Vancomycin HCl (Vancocin) 250 ml @ 125 mls/hr Q96H IVPB ; Start 11/25/16 at 15: 00 VIPUL LANTIGUA MD Nov 25, 2016 15:55
[2016-11-25] MEDS: EPOETIN 10000 UNITS/1 ML INJ (ESRD) SC SCH (17:36)
[2016-11-25] MEDS: INSULIN DETEMIR [LEVEMIR] 3ML CART SC SCH (20:34)
[2016-11-25] MEDS: ATORVASTATIN 40 MG TAB PO SCH (20:35)
[2016-11-25 20:41] VITALS: BP 132/61; RESP 20
[2016-11-26] VITALS (12 sets, daily range): BP systolic 88–143; BP diastolic 19–68; PULSE 50–90; RESP 16–19
[2016-11-26] MEDS: BENZONATATE 100 MG CAP PO SCH ×5 (01:00→23:49)
[2016-11-26] MEDS: ACCU-CHEK XX SCH (01:15)
[2016-11-26] MEDS: PANTOPRAZOLE (EC) 40 MG TAB PO SCH ×2 (05:12→17:20)
[2016-11-26] MEDS: LORAZEPAM 2 MG INJ IV PRN ×3 (05:53→22:00)
[2016-11-26] MEDS: INSULIN ASPART [NOVOLOG] 3 ML PEN SC SCH ×4 (08:00→21:45)
[2016-11-26] MEDS: CALCIUM ACETATE 667 MG CAP PO SCH ×3 (08:14→17:20)
[2016-11-26] MEDS: METOCLOPRAMIDE 5 MG TAB PO SCH ×3 (08:14→17:20)
--- NOTE | 2016-11-26 08:39 | CONS ---
Date/Time of Note Date/Time of Note DATE: 11/26/16 TIME: 08:37 Assessment/Plan Assessment/Plan Chief Complaint/Hosp Course - ESRD on Hemodialysis TTS @ [facility], [place] [facility] - POST FALL - ACUTE ANEMIA - Hx of Cellulitis - CAD/CHF - Hx of Hypertension - Pneumonia PLAN: Bedside dialysis Aim for UF ~ 2 Kg Monitor H/H Continue with Abx Started EPOGEN Iron Problems: Consultation Date/Type/Reason Admit Date/Time Nov 11, 2016 at 06:40 Initial Consult Date 11/12/16 Type of Consultation: NEPHROLOGY Reason for Consultation - ESRD ON HEMODIALYSIS 24 HR Interval Summary Constitutional: improved, no complaints Exam/Review of Systems Vital Signs Vitals Vital Signs Date Time Temp Pulse Resp B/P Pulse Ox O2 Delivery O2 Flow Rate FiO2 11/26/16 02:00 97.8 82 19 121/19 92 11/25/16 20:00 Nasal Cannula 2.0 Intake and Output 11/25/16 11/25/16 11/26/16 15:00 23:00 07:00 Intake Total 100 ml 340 ml Balance 100 ml 340 ml Exam Constitutional: alert, oriented Psych: no complaints Head: normocephalic Respiratory: crackles/rales Cardiovascular: edema, regular rate and rhythm, systolic murmur Gastrointestinal: soft Results Result Diagram: 11/25/16 0455 11/25/16 0459 Results 24 hrs Laboratory Tests Test 11/25/16 16:53 11/25/16 20:31 11/26/16 08:15 Bedside Glucose 119 144 127 Medications Medications Current Medications Amlodipine Besylate (Norvasc) 5 mg DAILY PO Last administered on 11/21/16 08:51 ; Admin Dose 5 MG; Start 11/11/16 at 09:30 Apixaban (Eliquis) 5 mg BID PO Last administered on 11/25/16 20:34; Admin Dose 5 MG; Start 11/11/16 at 09:30 Aspirin (Aspirin) 81 mg DAILY PO Last administered on 11/25/16 08:44; Admin Dose 81 MG; Start 11/11/16 at 09:30 Atorvastatin Calcium (Lipitor) 40 mg QHS PO Last administered on 11/25/16 20: 35; Admin Dose 40 MG; Start 11/11/16 at 21:00 Benzonatate (Tessalon) 100 mg Q6 PO Last administered on 11/26/16 05:12; Admin Dose 100 MG; Start 11/11/16 at 12:00 Carisoprodol (Soma) 350 mg Q8 PRN PO MUSCLE SPASMS Last administered on 14:19; Admin Dose 350 MG; Start 11/11/16 at 12:00 Cinacalcet (Sensipar) 30 mg DAILY PO Last administered on 11/24/16 08:56; Admin Dose 30 MG; Start 11/11/16 at 11:00 Furosemide (Lasix) 80 mg DAILY PO Last administered on 11/23/16 08:29; Admin Dose 80 MG; Start 11/11/16 at 09:30 Losartan Potassium (Cozaar) 50 mg BID PO Last administered on 11/25/16 20:35; Admin Dose 50 MG; Start 11/11/16 at 09:30 Metoprolol Succinate (Toprol Xl) 50 mg BID PO Last administered on 11/25/16 20 :35; Admin Dose 50 MG; Start 11/11/16 at 09:30 Montelukast Sodium (Singulair) 10 mg QAM PO Last administered on 11/25/16 07: 56; Admin Dose 10 MG; Start 11/11/16 at 11:00 Oxycodone/ Acetaminophen (Endocet (10/ 325)) 1 tab Q6 PRN PO PRN Last administered on 11/25/16 03:06; Admin Dose 1 TAB; Start 11/11/16 at 12:00 Pyridoxine HCl (Vitamin B6) 50 mg DAILY PO Last administered on 11/25/16 08:44 ; Admin Dose 50 MG; Start 11/11/16 at 09:30 Tiotropium [place] (Spiriva) 1 inh DAILY INH Last administered on 11/24/16 09: 00; Admin Dose 1 INH; Start 11/11/16 at 11:00 Ondansetron HCl (Zofran Tab) 4 mg Q6H PRN PO NAUSEA AND/OR VOMITING Last administered on 11/22/16 08:46; Admin Dose 4 MG; Start 11/11/16 at 10:00 Salmeterol Xinafoate/ Fluticasone (Advair 250/50 Diskus) 1 inh BID INH Last administered on 11/25/16 20:34; Admin Dose 1 INH; Start 11/11/16 at 11:00 Vancomycin HCl (Vanco Iv Per Pharmacy) PER PHARMACY DOSING NOTE XX ; Start 11/11 at 10:30 Albuterol (Ventolin Hfa) 2 puff Q4H PRN INH AOB Last administered on 11/25/16 12:06; Admin Dose 2 PUFF; Start 11/11/16 at 10:30 Epoetin Hang (Epogen (Esrd)) 10,000 units TuThSa@17 SC Last administered on 17:36; Admin Dose 10,000 UNITS; Start 11/11/16 at 17:00 Pantoprazole (Protonix Tab) 40 mg BID@18 PO Last administered on 11/26/16 05:12; Admin Dose 40 MG; Start 11/12/16 at 18:00 Collagenase (Santyl) 1 applic DAILY TOP Last administered on 11/25/16 08:42; Admin Dose 1 APPLIC; Start 11/13/16 at 09:00 Diagnostic Test (Pha) (Accu-Chek) 1 ea 02 XX Last administered on 11/18/16 01: 42; Admin Dose 1 EA; Start 11/14/16 at 02:00 Insulin Detemir (Levemir) 35 unit QHS@20 SC Last administered on 11/25/16 20: 34; Admin Dose 35 UNIT; Start 11/14/16 at 20:00 Nicotine (Nicoderm 21 Mg/ 24hr) 1 patch DAILY TRANSDERM Last administered on 07:56; Admin Dose 1 PATCH; Start 11/14/16 at 20:00 Docusate Sodium (Colace) 100 mg Q12H PO Last administered on 11/25/16 21:13; Admin Dose 100 MG; Start 11/16/16 at 22:00 Miscellaneous Information 1 ea NOTE XX ; Start 11/17/16 at 11:30 Glucose (Glutose) 15 gm Q15M PRN PO DECREASED GLUCOSE; Start 11/17/16 at 11:30 Glucose (Glutose) 22.5 gm Q15M PRN PO DECREASED GLUCOSE; Start 11/17/16 at 11:30 Dextrose (D50w Syringe) 25 ml Q15M PRN IV DECREASED GLUCOSE; Start 11/17/16 at 11:30 Dextrose (D50w Syringe) 50 ml Q15M PRN IV DECREASED GLUCOSE; Start 11/17/16 at 11:30 Glucagon (Glucagen) 1 mg Q15M PRN IM DECREASED GLUCOSE; Start 11/17/16 at 11:30 Glucose (Glutose) 15 gm Q15M PRN BUCCAL DECREASED GLUCOSE; Start 11/17/16 at 11: 30 Polyethylene Glycol (Miralax) 17 gm BID PO Last administered on 11/25/16 20:36 ; Admin Dose 17 GM; Start 11/17/16 at 12:00 Bisacodyl (Dulcolax) 10 mg DAILY PRN PO CONSTIPATION; Start 11/17/16 at 11:30 Diltiazem HCl (Cardizem Cd) 120 mg BID PO Last administered on 11/25/16 20:36 ; Admin Dose 120 MG; Start 11/19/16 at 21:00 Zolpidem Tartrate (Ambien) 5 mg HS PRN PO INSOMNIA Last administered on 02:17; Admin Dose 5 MG; Start 11/19/16 at 21:30 Lorazepam (Ativan) 1 mg Q6H PRN IV AGITATION/ANXIETY Last administered on 05:53; Admin Dose 1 MG; Start 11/21/16 at 21:15 Guaifenesin/ Codeine Phosphate 5 ml 5 ml Q4H PRN PO COUGH Last administered on 11/22/16 08:42; Admin Dose 5 ML; Start 11/21/16 at 21:30 Meropenem (Merrem 500 Mg/ 100 ml (Pmx)) 100 ml @ 200 mls/hr Q24H IVPB Last administered on 11/25/16 15:13; Admin Dose 200 MLS/HR; Start 11/23/16 at 16:00 Morphine Sulfate 2 mg 2 mg Q3H PRN IV for pain Last administered on 11/25/16 08:51; Admin Dose 2 MG; Start 11/24/16 at 18:30 Vancomycin HCl (Vancocin) 250 ml @ 125 mls/hr Q96H IVPB Last administered on 15:53; Admin Dose 125 MLS/HR; Start 11/25/16 at 15:00 BECKY GAMBLE MD Nov 26, 2016 08:39
[2016-11-26] MEDS: AMLODIPINE 5 MG TAB PO SCH (09:00)
[2016-11-26] MEDS: FUROSEMIDE 40 MG TAB PO SCH (09:00)
[2016-11-26] MEDS: METOPROLOL (XL) 50 MG TAB PO SCH ×2 (09:00→21:42)
[2016-11-26] MEDS: DILTIAZEM (CD) 120 MG CAP PO SCH ×2 (09:00→21:42)
[2016-11-26] MEDS: ASPIRIN 81 MG TAB PO SCH (09:00)
[2016-11-26] MEDS: LOSARTAN 50 MG TAB PO SCH ×2 (09:00→21:43)
[2016-11-26] MEDS: POLYETHYLENE GLYCOL 17 GM PACKET PO SCH ×2 (10:35→21:43)
[2016-11-26] MEDS: SALMETEROL/FLUTICASONE 250/50 INHA INH SCH ×2 (10:35→21:42)
[2016-11-26] MEDS: MONTELUKAST 10 MG TAB PO SCH (10:38)
[2016-11-26] MEDS: APIXABAN 5 MG TABLET PO SCH ×2 (10:38→21:43)
[2016-11-26] MEDS: COLLAGENASE 30 GM TUBE TOP SCH (10:38)
[2016-11-26] MEDS: NICOTINE (21 MG/24 HR) PATCH TRANSDERM SCH (10:38)
[2016-11-26] MEDS: PYRIDOXINE 50 MG TAB PO SCH (10:38)
[2016-11-26] MEDS: DOCUSATE SODIUM 100 MG CAP PO SCH ×2 (10:38→21:43)
[2016-11-26] MEDS ORDERED: ALBUMIN HUMAN 25% 100 ML IV ONE (12:00)
[2016-11-26] MEDS: TIOTROPIUM 18 MCG CAPSULE INHA DEV INH SCH (12:41)
[2016-11-26] MEDS: CINACALCET 30 MG TAB PO SCH (12:41)
--- NOTE | 2016-11-26 15:19 | PN ---
Date/Time of Note Date/Time of Note DATE: 11/26/16 TIME: 15:07 Assessment/Plan VTE Prophylaxis VTE Prophylaxis Intervention: other Lines/Catheters IV Catheter Type (from Nrs): Saline Lock Urinary Cath still in place: No Assessment/Plan Assessment/Plan 1. Bilateral lower extremities chronic venous stasis with chronic cellulitis and left hip wound, s/p debridement and wound vac application 10/19/16, wound care and antibiotics, 2. Pneumonia, on meropenem and vancomycin 3. UTI, on antibiotics 4. Diabetes mellitus, on insulin 5. Chronic atrial fibrillation, controlled rate, on cardizem and eliquis 6. Hypertension, controlled 7. End-stage renal disease, on hemodialysis TTS 8. Normocytic anemia, on epogen 9. Allergy: Penicillin, Cipro 10. DVT prophylaxis: eliquis Subjective 24 Hr Interval Summary Free Text/Dictation no respiratory distress Exam/Review of Systems Vital Signs Vitals Vital Signs Date Time Temp Pulse Resp B/P Pulse Ox O2 Delivery O2 Flow Rate FiO2 11/26/16 14:00 97.5 75 18 128/68 91 11/25/16 20:00 Nasal Cannula 2.0 Intake and Output 11/25/16 11/25/16 11/26/16 15:00 23:00 07:00 Intake Total 100 ml 340 ml Balance 100 ml 340 ml Exam Constitutional: alert, frail, oriented Head: atraumatic, normocephalic Eyes: EOMI, PERRL, nl conjunctiva, nl lids ENMT: nl external ears & nose, nl lips & teeth, nl nasal mucosa & septum Respiratory: clear to auscultation, normal air movement, No congested cough, No crackles/rales, No diminished breath sounds, No intercostal retraction, No labored breathing, No other, No respirations, No tactile fremitus, No wheezing Cardiovascular: nl pulses, regular rate and rhythm, No S3, No S4, No bruits, No diastolic murmur, No edema, No gallop, No irregular rhythm, No jugular venous distention (JVD), No murmurs/extra sounds, No other, No rub, No systolic murmur Gastrointestinal: nl liver, spleen, non-tender, soft Musculoskeletal: nl extremities to inspection Extremities: normal pulses 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, lethargic Results Result Diagram: 11/25/16 0455 11/25/16 0459 Results 24 hrs Laboratory Tests Test 11/25/16 16:53 11/25/16 20:31 11/26/16 08:15 11/26/16 12:31 Bedside Glucose 119 144 127 143 Medications Medications Current Medications Amlodipine Besylate (Norvasc) 5 mg DAILY PO Last administered on 11/21/16 08:51 ; Admin Dose 5 MG; Start 11/11/16 at 09:30 Apixaban (Eliquis) 5 mg BID PO Last administered on 11/26/16 10:38; Admin Dose 5 MG; Start 11/11/16 at 09:30 Aspirin (Aspirin) 81 mg DAILY PO Last administered on 11/25/16 08:44; Admin Dose 81 MG; Start 11/11/16 at 09:30 Atorvastatin Calcium (Lipitor) 40 mg QHS PO Last administered on 11/25/16 20: 35; Admin Dose 40 MG; Start 11/11/16 at 21:00 Benzonatate (Tessalon) 100 mg Q6 PO Last administered on 11/26/16 12:41; Admin Dose 100 MG; Start 11/11/16 at 12:00 Carisoprodol (Soma) 350 mg Q8 PRN PO MUSCLE SPASMS Last administered on 14:19; Admin Dose 350 MG; Start 11/11/16 at 12:00 Cinacalcet (Sensipar) 30 mg DAILY PO Last administered on 11/26/16 12:41; Admin Dose 30 MG; Start 11/11/16 at 11:00 Furosemide (Lasix) 80 mg DAILY PO Last administered on 11/23/16 08:29; Admin Dose 80 MG; Start 11/11/16 at 09:30 Losartan Potassium (Cozaar) 50 mg BID PO Last administered on 11/25/16 20:35; Admin Dose 50 MG; Start 11/11/16 at 09:30 Metoprolol Succinate (Toprol Xl) 50 mg BID PO Last administered on 11/25/16 20 :35; Admin Dose 50 MG; Start 11/11/16 at 09:30 Montelukast Sodium (Singulair) 10 mg QAM PO Last administered on 11/26/16 10: 38; Admin Dose 10 MG; Start 11/11/16 at 11:00 Oxycodone/ Acetaminophen (Endocet (10/ 325)) 1 tab Q6 PRN PO PRN Last administered on 11/25/16 03:06; Admin Dose 1 TAB; Start 11/11/16 at 12:00 Pyridoxine HCl (Vitamin B6) 50 mg DAILY PO Last administered on 11/26/16 10:38 ; Admin Dose 50 MG; Start 11/11/16 at 09:30 Tiotropium [place] (Spiriva) 1 inh DAILY INH Last administered on 11/26/16 12: 41; Admin Dose 1 INH; Start 11/11/16 at 11:00 Ondansetron HCl (Zofran Tab) 4 mg Q6H PRN PO NAUSEA AND/OR VOMITING Last administered on 11/22/16 08:46; Admin Dose 4 MG; Start 11/11/16 at 10:00 Salmeterol Xinafoate/ Fluticasone (Advair 250/50 Diskus) 1 inh BID INH Last administered on 11/26/16 10:35; Admin Dose 1 INH; Start 11/11/16 at 11:00 Vancomycin HCl (Vanco Iv Per Pharmacy) PER PHARMACY DOSING NOTE XX ; Start 11/11 at 10:30 Albuterol (Ventolin Hfa) 2 puff Q4H PRN INH AOB Last administered on 11/25/16 12:06; Admin Dose 2 PUFF; Start 11/11/16 at 10:30 Epoetin Hang (Epogen (Esrd)) 10,000 units TuThSa@17 SC Last administered on 17:36; Admin Dose 10,000 UNITS; Start 11/11/16 at 17:00 Pantoprazole (Protonix Tab) 40 mg BID@06,18 PO Last administered on 11/26/16 05:12; Admin Dose 40 MG; Start 11/12/16 at 18:00 Collagenase (Santyl) 1 applic DAILY TOP Last administered on 11/26/16 10:38; Admin Dose 1 APPLIC; Start 11/13/16 at 09:00 Diagnostic Test (Pha) (Accu-Chek) 1 ea 02 XX Last administered on 11/18/16 01: 42; Admin Dose 1 EA; Start 11/14/16 at 02:00 Insulin Detemir (Levemir) 35 unit QHS@20 SC Last administered on 11/25/16 20: 34; Admin Dose 35 UNIT; Start 11/14/16 at 20:00 Nicotine (Nicoderm 21 Mg/ 24hr) 1 patch DAILY TRANSDERM Last administered on 10:38; Admin Dose 1 PATCH; Start 11/14/16 at 20:00 Docusate Sodium (Colace) 100 mg Q12H PO Last administered on 11/26/16 10:38; Admin Dose 100 MG; Start 11/16/16 at 22:00 Miscellaneous Information 1 ea NOTE XX ; Start 11/17/16 at 11:30 Glucose (Glutose) 15 gm Q15M PRN PO DECREASED GLUCOSE; Start 11/17/16 at 11:30 Glucose (Glutose) 22.5 gm Q15M PRN PO DECREASED GLUCOSE; Start 11/17/16 at 11:30 Dextrose (D50w Syringe) 25 ml Q15M PRN IV DECREASED GLUCOSE; Start 11/17/16 at 11:30 Dextrose (D50w Syringe) 50 ml Q15M PRN IV DECREASED GLUCOSE; Start 11/17/16 at 11:30 Glucagon (Glucagen) 1 mg Q15M PRN IM DECREASED GLUCOSE; Start 11/17/16 at 11:30 Glucose (Glutose) 15 gm Q15M PRN BUCCAL DECREASED GLUCOSE; Start 11/17/16 at 11: 30 Polyethylene Glycol (Miralax) 17 gm BID PO Last administered on 11/26/16 10:35 ; Admin Dose 17 GM; Start 11/17/16 at 12:00 Bisacodyl (Dulcolax) 10 mg DAILY PRN PO CONSTIPATION; Start 11/17/16 at 11:30 Diltiazem HCl (Cardizem Cd) 120 mg BID PO Last administered on 11/25/16 20:36 ; Admin Dose 120 MG; Start 11/19/16 at 21:00 Zolpidem Tartrate (Ambien) 5 mg HS PRN PO INSOMNIA Last administered on 02:17; Admin Dose 5 MG; Start 11/19/16 at 21:30 Lorazepam (Ativan) 1 mg Q6H PRN IV AGITATION/ANXIETY Last administered on 14:00; Admin Dose 1 MG; Start 11/21/16 at 21:15 Guaifenesin/ Codeine Phosphate 5 ml 5 ml Q4H PRN PO COUGH Last administered on 11/22/16 08:42; Admin Dose 5 ML; Start 11/21/16 at 21:30 Meropenem (Merrem 500 Mg/ 100 ml (Pmx)) 100 ml @ 200 mls/hr Q24H IVPB Last administered on 11/25/16 15:13; Admin Dose 200 MLS/HR; Start 11/23/16 at 16:00 Morphine Sulfate 2 mg 2 mg Q3H PRN IV for pain Last administered on 11/25/16 08:51; Admin Dose 2 MG; Start 11/24/16 at 18:30 Vancomycin HCl (Vancocin) 250 ml @ 125 mls/hr Q96H IVPB Last administered on 15:53; Admin Dose 125 MLS/HR; Start 11/25/16 at 15:00 VIPUL LANTIGUA MD Nov 26, 2016 15:19
[2016-11-26 15:47] LABS: ADD SCAN DIFF NO
[2016-11-26 15:50] LABS: ABNORMAL IP MESSAGE 1; BASOPHIL # 0.1 10^3/ul (0.0-0.1); BASOPHILS % 0.5 % (0.0-2.0); EOSINOPHILS # 0.3 10^3/ul (0.0-0.5); EOSINOPHILS % 1.9 % (0.0-7.0); HEMATOCRIT 25.3 % (37.0-47.0); HEMOGLOBIN 7.6 g/dl (12.0-16.0); LYMPHOCYTES # 1.3 10^3/ul (0.8-2.9); LYMPHOCYTES % 7.9 % (15.0-51.0); MEAN CORPUSCULAR HEMOGLOBIN 30.2 pg (29.0-33.0); MEAN CORPUSCULAR VOLUME 100.4 fl (82.0-101.0); MEAN PLATELET VOLUME 9.2 fl (7.4-10.4); MONOCYTE # 1.9 10^3/ul (0.3-0.9); MONOCYTES % 11.2 % (0.0-11.0); NEUTROPHIL # 12.6 10^3/ul (1.6-7.5); NEUTROPHILS % 75.5 % (39.0-77.0); NUCLEATED RED BLOOD CELLS # 0.3 10^3/ul (0.0-0.0); NUCLEATED RED BLOOD CELLS% 1.5 /100WBC (0.0-0.0); PLATELET COUNT 429 10^3/UL (140-415); RED BLOOD COUNT 2.52 10^6/ul (4.20-5.40); RED CELL DISTRIBUTION WIDTH 20.4 % (11.5-14.5); WHITE BLOOD COUNT 16.6 10^3/ul (4.8-10.8)
[2016-11-26 16:18] LABS: CALCIUM 10.1 mg/dl (8.4-10.2); CREATININE 2.84 mg/dl (0.44-1.00); POTASSIUM 3.8 mmol/L (3.5-5.1)
[2016-11-26] MEDS: MEROPENEM 500 MG/100 ML (PMX) 100 ML IVPB SCH (17:20)
--- NOTE | 2016-11-26 18:21 | RADRPT ---
PROCEDURE: XR Chest. CLINICAL INDICATION: Shortness of breath. TECHNIQUE: Single frontal view. COMPARISON: 11/22/2016. FINDINGS: There is air space disease at the right lung base consistent with pneumonia, unchanged. The lungs a re otherwise clear. The heart is enlarged. There is calcification in the aorta consistent with atherosclerosis. There is a small right pleural effusion, unchanged. There is no left pleural effusion. There is no pneumothorax. IMPRESSION: 1. No change from 11/22/2016. RPTAT: QQ .Bandar Adamson MD, MD Date Time Electronically viewed and signed by .Bandar Adamson MD, MD on 11/26/2016 18:21 .R/
[2016-11-26] MEDS ORDERED: SOD CHLORIDE 0.9% 250 ML IV* ONE (18:42)
[2016-11-26] MEDS: ATORVASTATIN 40 MG TAB PO SCH (21:42)
[2016-11-26] MEDS: INSULIN DETEMIR [LEVEMIR] 3ML CART SC SCH (21:44)
[2016-11-27] MEDS: ACCU-CHEK XX SCH (02:00)
[2016-11-27 02:05] VITALS: BP 135/70; RESP 20
[2016-11-27 05:42] LABS: ADD SCAN DIFF NO
[2016-11-27 05:45] LABS: ABNORMAL IP MESSAGE 1; BASOPHIL # 0.1 10^3/ul (0.0-0.1); BASOPHILS % 0.6 % (0.0-2.0); EOSINOPHILS # 0.3 10^3/ul (0.0-0.5); EOSINOPHILS % 1.7 % (0.0-7.0); HEMATOCRIT 28.8 % (37.0-47.0); HEMOGLOBIN 8.6 g/dl (12.0-16.0); LYMPHOCYTES # 1.6 10^3/ul (0.8-2.9); LYMPHOCYTES % 9.7 % (15.0-51.0); MEAN CORPUSCULAR HEMOGLOBIN 29.2 pg (29.0-33.0); MEAN CORPUSCULAR HGB CONC 29.9 g/dl (32.0-37.0); MEAN CORPUSCULAR VOLUME 97.6 fl (82.0-101.0); MEAN PLATELET VOLUME 9.3 fl (7.4-10.4); MONOCYTES % 12.4 % (0.0-11.0); NEUTROPHIL # 11.6 10^3/ul (1.6-7.5); NEUTROPHILS % 72.7 % (39.0-77.0); NUCLEATED RED BLOOD CELLS # 0.3 10^3/ul (0.0-0.0); NUCLEATED RED BLOOD CELLS% 2.1 /100WBC (0.0-0.0); PLATELET COUNT 441 10^3/UL (140-415); RED BLOOD COUNT 2.95 10^6/ul (4.20-5.40); RED CELL DISTRIBUTION WIDTH 20.7 % (11.5-14.5); WHITE BLOOD COUNT 15.9 10^3/ul (4.8-10.8)
[2016-11-27 06:21] LABS: CALCIUM 10.2 mg/dl (8.4-10.2); CREATININE 3.29 mg/dl (0.44-1.00); POTASSIUM 4.1 mmol/L (3.5-5.1)
[2016-11-27] MEDS: PANTOPRAZOLE (EC) 40 MG TAB PO SCH ×2 (06:30→17:25)
[2016-11-27] MEDS: BENZONATATE 100 MG CAP PO SCH ×4 (06:30→23:23)
[2016-11-27 07:20] VITALS: BP 117/68; RESP 18
[2016-11-27] MEDS: CALCIUM ACETATE 667 MG CAP PO SCH ×3 (08:40→17:25)
[2016-11-27] MEDS: METOCLOPRAMIDE 5 MG TAB PO SCH ×3 (08:40→17:25)
[2016-11-27] MEDS: PYRIDOXINE 50 MG TAB PO SCH (08:41)
[2016-11-27] MEDS: MONTELUKAST 10 MG TAB PO SCH (08:41)
[2016-11-27] MEDS: CINACALCET 30 MG TAB PO SCH (08:41)
[2016-11-27] MEDS: TIOTROPIUM 18 MCG CAPSULE INHA DEV INH SCH (08:42)
[2016-11-27] MEDS: INSULIN ASPART [NOVOLOG] 3 ML PEN SC SCH ×4 (08:42→20:51)
[2016-11-27] MEDS: POLYETHYLENE GLYCOL 17 GM PACKET PO SCH ×2 (08:44→20:52)
[2016-11-27] MEDS: NICOTINE (21 MG/24 HR) PATCH TRANSDERM SCH (08:44)
[2016-11-27] MEDS: METOPROLOL (XL) 50 MG TAB PO SCH ×2 (08:45→20:52)
[2016-11-27] MEDS: DILTIAZEM (CD) 120 MG CAP PO SCH ×2 (08:46→20:53)
[2016-11-27] MEDS: ASPIRIN 81 MG TAB PO SCH (08:46)
[2016-11-27] MEDS: LOSARTAN 50 MG TAB PO SCH ×2 (08:46→20:53)
[2016-11-27] MEDS: APIXABAN 5 MG TABLET PO SCH ×2 (08:46→20:53)
[2016-11-27] MEDS: FUROSEMIDE 40 MG TAB PO SCH (08:47)
[2016-11-27] MEDS: AMLODIPINE 5 MG TAB PO SCH (08:47)
[2016-11-27] MEDS: SALMETEROL/FLUTICASONE 250/50 INHA INH SCH ×2 (08:48→21:58)
[2016-11-27] MEDS: morphine 2 MG INJ IV PRN (09:28)
[2016-11-27] MEDS: COLLAGENASE 30 GM TUBE TOP SCH (09:30)
[2016-11-27] MEDS: DOCUSATE SODIUM 100 MG CAP PO SCH ×2 (09:30→21:58)
[2016-11-27] MEDS: LORAZEPAM 2 MG INJ IV PRN ×2 (10:02→18:47)
--- NOTE | 2016-11-27 10:36 | CONS ---
Date/Time of Note Date/Time of Note DATE: 11/27/16 TIME: 10:35 Assessment/Plan Assessment/Plan Chief Complaint/Hosp Course - ESRD on Hemodialysis TTS @ [facility] - POST FALL - ACUTE ANEMIA - Hx of Cellulitis - CAD/CHF - Hx of Hypertension - Pneumonia PLAN: Bedside dialysis WAS DONE YESTERDAY Aim for UF ~ 2 Kg Monitor H/H Continue with Abx Started EPOGEN Iron Problems: Consultation Date/Type/Reason Admit Date/Time Nov 11, 2016 at 06:40 Initial Consult Date 11/12/16 Type of Consultation: NEPHROLOGY Reason for Consultation ESRD ON HEMODIALYSIS 24 HR Interval Summary Constitutional: no complaints Exam/Review of Systems Vital Signs Vitals Vital Signs Date Time Temp Pulse Resp B/P Pulse Ox O2 Delivery O2 Flow Rate FiO2 11/27/16 07:20 97.6 70 18 117/68 96 11/26/16 20:00 Nasal Cannula 2.0 Intake and Output 11/26/16 11/26/16 11/27/16 15:00 23:00 07:00 Intake Total 500 ml 300 ml 150 ml Output Total 3000 ml Balance -2500 ml 300 ml 150 ml Exam Constitutional: alert, oriented Neck: jvd Respiratory: crackles/rales Cardiovascular: edema, systolic murmur Gastrointestinal: soft Results Result Diagram: 11/27/16 0516 11/27/16 0512 Results 24 hrs Laboratory Tests Test 11/26/16 12:31 11/26/16 15:30 11/26/16 17:27 11/26/16 21:40 Bedside Glucose 143 177 218 White Blood Count 16.6 H Red Blood Count 2.52 L Hemoglobin 7.6 L Hematocrit 25.3 L Mean Corpuscular Volume 100.4 Mean Corpuscular Hemoglobin 30.2 Mean Corpuscular Hemoglobin Concent 30.0 L Red Cell Distribution Width 20.4 H Platelet Count 429 H Mean Platelet Volume 9.2 Neutrophils % 75.5 Lymphocytes % 7.9 L Monocytes % 11.2 H Eosinophils % 1.9 Basophils % 0.5 Nucleated Red Blood Cells % 1.5 H Neutrophils # 12.6 H Lymphocytes # 1.3 Monocytes # 1.9 H Eosinophils # 0.3 Basophils # 0.1 Nucleated Red Blood Cells # 0.3 H Sodium Level 142 Potassium Level 3.8 Chloride Level 95 L Carbon Dioxide Level 29 Anion Gap 22 #H Blood Urea Nitrogen 30 H Creatinine 2.84 H Glucose Level 123 Calcium Level 10.1 Test 11/27/16 02:57 11/27/16 05:12 11/27/16 05:16 11/27/16 08:14 Bedside Glucose 188 174 Sodium Level 143 Potassium Level 4.1 Chloride Level 98 Carbon Dioxide Level 31 Anion Gap 18 H Blood Urea Nitrogen 36 H Creatinine 3.29 H Glucose Level 179 Calcium Level 10.2 White Blood Count 15.9 H Red Blood Count 2.95 L Hemoglobin 8.6 L Hematocrit 28.8 L Mean Corpuscular Volume 97.6 Mean Corpuscular Hemoglobin 29.2 Mean Corpuscular Hemoglobin Concent 29.9 L Red Cell Distribution Width 20.7 H Platelet Count 441 H Mean Platelet Volume 9.3 Neutrophils % 72.7 Lymphocytes % 9.7 L Monocytes % 12.4 H Eosinophils % 1.7 Basophils % 0.6 Nucleated Red Blood Cells % 2.1 H Neutrophils # 11.6 H Lymphocytes # 1.6 Monocytes # 2.0 H Eosinophils # 0.3 Basophils # 0.1 Nucleated Red Blood Cells # 0.3 H Medications Medications Current Medications Amlodipine Besylate (Norvasc) 5 mg DAILY PO Last administered on 11/27/16 08: 47; Admin Dose 5 MG; Start 11/11/16 at 09:30 Apixaban (Eliquis) 5 mg BID PO Last administered on 11/27/16 08:46; Admin Dose 5 MG; Start 11/11/16 at 09:30 Aspirin (Aspirin) 81 mg DAILY PO Last administered on 11/27/16 08:46; Admin Dose 81 MG; Start 11/11/16 at 09:30 Atorvastatin Calcium (Lipitor) 40 mg QHS PO Last administered on 11/26/16 21: 42; Admin Dose 40 MG; Start 11/11/16 at 21:00 Benzonatate (Tessalon) 100 mg Q6 PO Last administered on 11/27/16 06:30; Admin Dose 100 MG; Start 11/11/16 at 12:00 Carisoprodol (Soma) 350 mg Q8 PRN PO MUSCLE SPASMS Last administered on 14:19; Admin Dose 350 MG; Start 11/11/16 at 12:00 Cinacalcet (Sensipar) 30 mg DAILY PO Last administered on 11/27/16 08:41; Admin Dose 30 MG; Start 11/11/16 at 11:00 Furosemide (Lasix) 80 mg DAILY PO Last administered on 11/27/16 08:47; Admin Dose 80 MG; Start 11/11/16 at 09:30 Losartan Potassium (Cozaar) 50 mg BID PO Last administered on 11/27/16 08:46; Admin Dose 50 MG; Start 11/11/16 at 09:30 Metoprolol Succinate (Toprol Xl) 50 mg BID PO Last administered on 11/27/16 08 :45; Admin Dose 50 MG; Start 11/11/16 at 09:30 Montelukast Sodium (Singulair) 10 mg QAM PO Last administered on 11/27/16 08: 41; Admin Dose 10 MG; Start 11/11/16 at 11:00 Oxycodone/ Acetaminophen (Endocet (10/ 325)) 1 tab Q6 PRN PO PRN Last administered on 11/25/16 03:06; Admin Dose 1 TAB; Start 11/11/16 at 12:00 Pyridoxine HCl (Vitamin B6) 50 mg DAILY PO Last administered on 11/27/16 08:41 ; Admin Dose 50 MG; Start 11/11/16 at 09:30 Tiotropium [place] (Spiriva) 1 inh DAILY INH Last administered on 11/27/16 08: 42; Admin Dose 1 INH; Start 11/11/16 at 11:00 Ondansetron HCl (Zofran Tab) 4 mg Q6H PRN PO NAUSEA AND/OR VOMITING Last administered on 11/22/16 08:46; Admin Dose 4 MG; Start 11/11/16 at 10:00 Salmeterol Xinafoate/ Fluticasone (Advair 250/50 Diskus) 1 inh BID INH Last administered on 11/27/16 08:48; Admin Dose 1 INH; Start 11/11/16 at 11:00 Vancomycin HCl (Vanco Iv Per Pharmacy) PER PHARMACY DOSING NOTE XX ; Start 11/11 at 10:30 Albuterol (Ventolin Hfa) 2 puff Q4H PRN INH AOB Last administered on 11/25/16 12:06; Admin Dose 2 PUFF; Start 11/11/16 at 10:30 Epoetin Hang (Epogen (Esrd)) 10,000 units TuThSa@17 SC Last administered on 17:36; Admin Dose 10,000 UNITS; Start 11/11/16 at 17:00 Pantoprazole (Protonix Tab) 40 mg BID@06,18 PO Last administered on 11/27/16 06:30; Admin Dose 40 MG; Start 11/12/16 at 18:00 Collagenase (Santyl) 1 applic DAILY TOP Last administered on 11/27/16 09:30; Admin Dose 1 APPLIC; Start 11/13/16 at 09:00 Diagnostic Test (Pha) (Accu-Chek) 1 ea 02 XX Last administered on 11/18/16 01: 42; Admin Dose 1 EA; Start 11/14/16 at 02:00 Insulin Detemir (Levemir) 35 unit QHS@20 SC Last administered on 11/26/16 21: 44; Admin Dose 35 UNIT; Start 11/14/16 at 20:00 Nicotine (Nicoderm 21 Mg/ 24hr) 1 patch DAILY TRANSDERM Last administered on 08:44; Admin Dose 1 PATCH; Start 11/14/16 at 20:00 Docusate Sodium (Colace) 100 mg Q12H PO Last administered on 11/27/16 09:30; Admin Dose 100 MG; Start 11/16/16 at 22:00 Miscellaneous Information 1 ea NOTE XX ; Start 11/17/16 at 11:30 Glucose (Glutose) 15 gm Q15M PRN PO DECREASED GLUCOSE; Start 11/17/16 at 11:30 Glucose (Glutose) 22.5 gm Q15M PRN PO DECREASED GLUCOSE; Start 11/17/16 at 11:30 Dextrose (D50w Syringe) 25 ml Q15M PRN IV DECREASED GLUCOSE; Start 11/17/16 at 11:30 Dextrose (D50w Syringe) 50 ml Q15M PRN IV DECREASED GLUCOSE; Start 11/17/16 at 11:30 Glucagon (Glucagen) 1 mg Q15M PRN IM DECREASED GLUCOSE; Start 11/17/16 at 11:30 Glucose (Glutose) 15 gm Q15M PRN BUCCAL DECREASED GLUCOSE; Start 11/17/16 at 11: 30 Polyethylene Glycol (Miralax) 17 gm BID PO Last administered on 11/27/16 08:44 ; Admin Dose 17 GM; Start 11/17/16 at 12:00 Bisacodyl (Dulcolax) 10 mg DAILY PRN PO CONSTIPATION; Start 11/17/16 at 11:30 Diltiazem HCl (Cardizem Cd) 120 mg BID PO Last administered on 11/27/16 08:46 ; Admin Dose 120 MG; Start 11/19/16 at 21:00 Zolpidem Tartrate (Ambien) 5 mg HS PRN PO INSOMNIA Last administered on 02:17; Admin Dose 5 MG; Start 11/19/16 at 21:30 Lorazepam (Ativan) 1 mg Q6H PRN IV AGITATION/ANXIETY Last administered on 10:02; Admin Dose 1 MG; Start 11/21/16 at 21:15 Guaifenesin/ Codeine Phosphate 5 ml 5 ml Q4H PRN PO COUGH Last administered on 11/22/16 08:42; Admin Dose 5 ML; Start 11/21/16 at 21:30 Meropenem (Merrem 500 Mg/ 100 ml (Pmx)) 100 ml @ 200 mls/hr Q24H IVPB Last administered on 11/26/16 17:20; Admin Dose 200 MLS/HR; Start 11/23/16 at 16:00 Morphine Sulfate 2 mg 2 mg Q3H PRN IV for pain Last administered on 11/27/16 09:28; Admin Dose 2 MG; Start 11/24/16 at 18:30 Vancomycin HCl (Vancocin) 250 ml @ 125 mls/hr Q96H IVPB Last administered on 15:53; Admin Dose 125 MLS/HR; Start 11/25/16 at 15:00 BECKY GAMBLE MD Nov 27, 2016 10:36
--- NOTE | 2016-11-27 13:49 | PN ---
Date/Time of Note Date/Time of Note DATE: 11/27/16 TIME: 13:46 Assessment/Plan VTE Prophylaxis VTE Prophylaxis Intervention: other Lines/Catheters IV [facility] Urinary Cath still in place: No Assessment/Plan Problems: (1) A-fib Status: Chronic Comment: Rate controlled and steady Qualifiers: Atrial fibrillation type: chronic Qualified Code: I48.2 - Chronic atrial fibrillation (2) Essential hypertension Status: Chronic Comment: Adequate control (3) Diabetic foot ulcer Status: Chronic Comment: Continues with treatment Qualifiers: Diabetic foot ulcer location: heel Diabetes mellitus type: type 2 Laterality: unspecified laterality Non-pressure ulcer stage: with fat layer exposed Qualified Code: E11.621 - Diabetic ulcer of heel associated with type 2 diabetes mellitus, with fat layer exposed, unspecified laterality (4) Hyperlipidemia associated with type 2 diabetes mellitus Status: Chronic Comment: On statin therapy (5) Debility Status: Chronic Comment: Attempting to get her placed back in an ECF for continuation of her care. Subjective 24 Hr Interval Summary Free Text/Dictation Patient states "get me the hell out of here". Exam/Review of Systems Vital Signs Vitals Vital Signs Date Time Temp Pulse Resp B/P Pulse Ox O2 Delivery O2 Flow Rate FiO2 11/27/16 08:00 Nasal Cannula 2.0 11/27/16 07:20 97.6 70 18 117/68 96 Intake and Output 11/26/16 11/26/16 11/27/16 15:00 23:00 07:00 Intake Total 500 ml 300 ml 150 ml Output Total 3000 ml Balance -2500 ml 300 ml 150 ml Exam Constitutional: alert Neck: non-tender, supple Respiratory: clear to auscultation, normal air movement Cardiovascular: nl pulses, regular rate and rhythm Gastrointestinal: nl liver, spleen, non-tender, soft Results Result Diagram: 11/27/16 0516 11/27/16 0512 Results 24 hrs Laboratory Tests Test 11/26/16 15:30 11/26/16 17:27 11/26/16 21:40 11/27/16 02:57 White Blood Count 16.6 H Red Blood Count 2.52 L Hemoglobin 7.6 L Hematocrit 25.3 L Mean Corpuscular Volume 100.4 Mean Corpuscular Hemoglobin 30.2 Mean Corpuscular Hemoglobin Concent 30.0 L Red Cell Distribution Width 20.4 H Platelet Count 429 H Mean Platelet Volume 9.2 Neutrophils % 75.5 Lymphocytes % 7.9 L Monocytes % 11.2 H Eosinophils % 1.9 Basophils % 0.5 Nucleated Red Blood Cells % 1.5 H Neutrophils # 12.6 H Lymphocytes # 1.3 Monocytes # 1.9 H Eosinophils # 0.3 Basophils # 0.1 Nucleated Red Blood Cells # 0.3 H Sodium Level 142 Potassium Level 3.8 Chloride Level 95 L Carbon Dioxide Level 29 Anion Gap 22 #H Blood Urea Nitrogen 30 H Creatinine 2.84 H Glucose Level 123 Calcium Level 10.1 Bedside Glucose 177 218 188 Test 11/27/16 05:12 11/27/16 05:16 11/27/16 08:14 11/27/16 12:19 Sodium Level 143 Potassium Level 4.1 Chloride Level 98 Carbon Dioxide Level 31 Anion Gap 18 H Blood Urea Nitrogen 36 H Creatinine 3.29 H Glucose Level 179 Calcium Level 10.2 White Blood Count 15.9 H Red Blood Count 2.95 L Hemoglobin 8.6 L Hematocrit 28.8 L Mean Corpuscular Volume 97.6 Mean Corpuscular Hemoglobin 29.2 Mean Corpuscular Hemoglobin Concent 29.9 L Red Cell Distribution Width 20.7 H Platelet Count 441 H Mean Platelet Volume 9.3 Neutrophils % 72.7 Lymphocytes % 9.7 L Monocytes % 12.4 H Eosinophils % 1.7 Basophils % 0.6 Nucleated Red Blood Cells % 2.1 H Neutrophils # 11.6 H Lymphocytes # 1.6 Monocytes # 2.0 H Eosinophils # 0.3 Basophils # 0.1 Nucleated Red Blood Cells # 0.3 H Bedside Glucose 174 157 Medications Medications Current Medications Amlodipine Besylate (Norvasc) 5 mg DAILY PO Last administered on 11/27/16 08: 47; Admin Dose 5 MG; Start 11/11/16 at 09:30 Apixaban (Eliquis) 5 mg BID PO Last administered on 11/27/16 08:46; Admin Dose 5 MG; Start 11/11/16 at 09:30 Aspirin (Aspirin) 81 mg DAILY PO Last administered on 11/27/16 08:46; Admin Dose 81 MG; Start 11/11/16 at 09:30 Atorvastatin Calcium (Lipitor) 40 mg QHS PO Last administered on 11/26/16 21: 42; Admin Dose 40 MG; Start 11/11/16 at 21:00 Benzonatate (Tessalon) 100 mg Q6 PO Last administered on 11/27/16 12:30; Admin Dose 100 MG; Start 11/11/16 at 12:00 Carisoprodol (Soma) 350 mg Q8 PRN PO MUSCLE SPASMS Last administered on 14:19; Admin Dose 350 MG; Start 11/11/16 at 12:00 Cinacalcet (Sensipar) 30 mg DAILY PO Last administered on 11/27/16 08:41; Admin Dose 30 MG; Start 11/11/16 at 11:00 Furosemide (Lasix) 80 mg DAILY PO Last administered on 11/27/16 08:47; Admin Dose 80 MG; Start 11/11/16 at 09:30 Losartan Potassium (Cozaar) 50 mg BID PO Last administered on 11/27/16 08:46; Admin Dose 50 MG; Start 11/11/16 at 09:30 Metoprolol Succinate (Toprol Xl) 50 mg BID PO Last administered on 11/27/16 08 :45; Admin Dose 50 MG; Start 11/11/16 at 09:30 Montelukast Sodium (Singulair) 10 mg QAM PO Last administered on 11/27/16 08: 41; Admin Dose 10 MG; Start 11/11/16 at 11:00 Oxycodone/ Acetaminophen (Endocet (10/ 325)) 1 tab Q6 PRN PO PRN Last administered on 11/25/16 03:06; Admin Dose 1 TAB; Start 11/11/16 at 12:00 Pyridoxine HCl (Vitamin B6) 50 mg DAILY PO Last administered on 11/27/16 08:41 ; Admin Dose 50 MG; Start 11/11/16 at 09:30 Tiotropium [place] (Spiriva) 1 inh DAILY INH Last administered on 11/27/16 08: 42; Admin Dose 1 INH; Start 11/11/16 at 11:00 Ondansetron HCl (Zofran Tab) 4 mg Q6H PRN PO NAUSEA AND/OR VOMITING Last administered on 11/22/16 08:46; Admin Dose 4 MG; Start 11/11/16 at 10:00 Salmeterol Xinafoate/ Fluticasone (Advair 250/50 Diskus) 1 inh BID INH Last administered on 11/27/16 08:48; Admin Dose 1 INH; Start 11/11/16 at 11:00 Vancomycin HCl (Vanco Iv Per Pharmacy) PER PHARMACY DOSING NOTE XX ; Start 11/11 at 10:30 Albuterol (Ventolin Hfa) 2 puff Q4H PRN INH AOB Last administered on 11/25/16 12:06; Admin Dose 2 PUFF; Start 11/11/16 at 10:30 Epoetin Hang (Epogen (Esrd)) 10,000 units TuThSa@17 SC Last administered on 17:36; Admin Dose 10,000 UNITS; Start 11/11/16 at 17:00 Pantoprazole (Protonix Tab) 40 mg BID@18 PO Last administered on 11/27/16 06:30; Admin Dose 40 MG; Start 11/12/16 at 18:00 Collagenase (Santyl) 1 applic DAILY TOP Last administered on 11/27/16 09:30; Admin Dose 1 APPLIC; Start 11/13/16 at 09:00 Diagnostic Test (Pha) (Accu-Chek) 1 ea 02 XX Last administered on 11/18/16 01: 42; Admin Dose 1 EA; Start 11/14/16 at 02:00 Insulin Detemir (Levemir) 35 unit QHS@20 SC Last administered on 11/26/16 21: 44; Admin Dose 35 UNIT; Start 11/14/16 at 20:00 Nicotine (Nicoderm 21 Mg/ 24hr) 1 patch DAILY TRANSDERM Last administered on 08:44; Admin Dose 1 PATCH; Start 11/14/16 at 20:00 Docusate Sodium (Colace) 100 mg Q12H PO Last administered on 11/27/16 09:30; Admin Dose 100 MG; Start 11/16/16 at 22:00 Miscellaneous Information 1 ea NOTE XX ; Start 11/17/16 at 11:30 Glucose (Glutose) 15 gm Q15M PRN PO DECREASED GLUCOSE; Start 11/17/16 at 11:30 Glucose (Glutose) 22.5 gm Q15M PRN PO DECREASED GLUCOSE; Start 11/17/16 at 11:30 Dextrose (D50w Syringe) 25 ml Q15M PRN IV DECREASED GLUCOSE; Start 11/17/16 at 11:30 Dextrose (D50w Syringe) 50 ml Q15M PRN IV DECREASED GLUCOSE; Start 11/17/16 at 11:30 Glucagon (Glucagen) 1 mg Q15M PRN IM DECREASED GLUCOSE; Start 11/17/16 at 11:30 Glucose (Glutose) 15 gm Q15M PRN BUCCAL DECREASED GLUCOSE; Start 11/17/16 at 11: 30 Polyethylene Glycol (Miralax) 17 gm BID PO Last administered on 11/27/16 08:44 ; Admin Dose 17 GM; Start 11/17/16 at 12:00 Bisacodyl (Dulcolax) 10 mg DAILY PRN PO CONSTIPATION; Start 11/17/16 at 11:30 Diltiazem HCl (Cardizem Cd) 120 mg BID PO Last administered on 11/27/16 08:46 ; Admin Dose 120 MG; Start 11/19/16 at 21:00 Zolpidem Tartrate (Ambien) 5 mg HS PRN PO INSOMNIA Last administered on 02:17; Admin Dose 5 MG; Start 11/19/16 at 21:30 Lorazepam (Ativan) 1 mg Q6H PRN IV AGITATION/ANXIETY Last administered on 10:02; Admin Dose 1 MG; Start 11/21/16 at 21:15 Guaifenesin/ Codeine Phosphate 5 ml 5 ml Q4H PRN PO COUGH Last administered on 11/22/16 08:42; Admin Dose 5 ML; Start 11/21/16 at 21:30 Meropenem (Merrem 500 Mg/ 100 ml (Pmx)) 100 ml @ 200 mls/hr Q24H IVPB Last administered on 11/26/16 17:20; Admin Dose 200 MLS/HR; Start 11/23/16 at 16:00 Morphine Sulfate 2 mg 2 mg Q3H PRN IV for pain Last administered on 11/27/16 09:28; Admin Dose 2 MG; Start 11/24/16 at 18:30 Vancomycin HCl (Vancocin) 250 ml @ 125 mls/hr Q96H IVPB Last administered on 15:53; Admin Dose 125 MLS/HR; Start 11/25/16 at 15:00 FOUZIA CHAMPION MD Nov 27, 2016 13:48
[2016-11-27 14:00] VITALS: BP 137/92; RESP 18
[2016-11-27] MEDS: MEROPENEM 500MG/50 ML (PMX) 50 ML IVPB SCH (16:07)
[2016-11-27] MEDS: EPOETIN 10000 UNITS/1 ML INJ (ESRD) SC SCH (17:27)
--- NOTE | 2016-11-27 18:11 | CONS ---
Date/Time of Note Date/Time of Note DATE: 11/27/16 TIME: 18:10 Assessment/Plan Assessment/Plan Chief Complaint/Hosp Course ID PROGRESS NOTE ABX DAY # Vancomycin IV , Meropenem. 24H INTERVAL SUMMARY * Awake, alert, wants to return to SNF, VSS, no fevers, NAD, chart reviewed PHYSICAL EXAMINATION: GENERAL: VSS, NAD, no fever, obese F HEENT: Unremarkable NECK: Trach midline CHEST: Equal chest rise bilaterally, without dyspnea on observation HEART: Pulse RRR ABDOMEN: Soft, left flank pain EXTREMITIES: Warm SKIN: Warm, dry, edema BLEXT w/wound vac ID ASSESSMENT: 61 yo super morbid obese F admitted with: 1. Acute encephalopathy, likely toxic metabolic 2. Bilateral lower extremities chronic venous stasis with chronic cellulitis and left hip wound, s/p debridement and wound vac application 10/19/16. 3. End-stage renal disease, on hemodialysis. 4. Healthcare associated pneumonia, possibly aspiration 5. Atrial fibrillation. 6. COPD - stable 7. Hx of falls ABX ALLERGIES: PCN, CIPRO CURRENT ABX: ABX DAY # => Vancomycin IV , Meropenem. ID RECOMMENDATIONS: 1. Continue current ABX 2. DC Planning to SNF, may TNS on current ABX total 14 days . . * CXR 11/26/16: There is air space disease at the right lung base consistent with pneumonia, unchanged. There is a small right pleural effusion, unchanged. Problems: Consultation Date/Type/Reason Admit Date/Time Nov 11, 2016 at 06:40 Initial Consult Date 11/12/16 Type of Consultation: ID Exam/Review of Systems Vital Signs Vitals Vital Signs Date Time Temp Pulse Resp B/P Pulse Ox O2 Delivery O2 Flow Rate FiO2 11/27/16 14:00 97.8 62 18 137/92 92 11/27/16 08:00 Nasal Cannula 2.0 Intake and Output 11/26/16 11/26/16 11/27/16 15:00 23:00 07:00 Intake Total 500 ml 300 ml 150 ml Output Total 3000 ml Balance -2500 ml 300 ml 150 ml Results Result Diagram: 11/27/16 0516 11/27/16 0512 Results 24 hrs Laboratory Tests Test 11/26/16 21:40 11/27/16 02:57 11/27/16 05:12 11/27/16 05:16 Bedside Glucose 218 188 Sodium Level 143 Potassium Level 4.1 Chloride Level 98 Carbon Dioxide Level 31 Anion Gap 18 H Blood Urea Nitrogen 36 H Creatinine 3.29 H Glucose Level 179 Calcium Level 10.2 White Blood Count 15.9 H Red Blood Count 2.95 L Hemoglobin 8.6 L Hematocrit 28.8 L Mean Corpuscular Volume 97.6 Mean Corpuscular Hemoglobin 29.2 Mean Corpuscular Hemoglobin Concent 29.9 L Red Cell Distribution Width 20.7 H Platelet Count 441 H Mean Platelet Volume 9.3 Neutrophils % 72.7 Lymphocytes % 9.7 L Monocytes % 12.4 H Eosinophils % 1.7 Basophils % 0.6 Nucleated Red Blood Cells % 2.1 H Neutrophils # 11.6 H Lymphocytes # 1.6 Monocytes # 2.0 H Eosinophils # 0.3 Basophils # 0.1 Nucleated Red Blood Cells # 0.3 H Test 11/27/16 08:14 11/27/16 12:19 11/27/16 17:23 Bedside Glucose 174 157 135 Medications Medications Current Medications Amlodipine Besylate (Norvasc) 5 mg DAILY PO Last administered on 11/27/16 08: 47; Admin Dose 5 MG; Start 11/11/16 at 09:30 Apixaban (Eliquis) 5 mg BID PO Last administered on 11/27/16 08:46; Admin Dose 5 MG; Start 11/11/16 at 09:30 Aspirin (Aspirin) 81 mg DAILY PO Last administered on 11/27/16 08:46; Admin Dose 81 MG; Start 11/11/16 at 09:30 Atorvastatin Calcium (Lipitor) 40 mg QHS PO Last administered on 11/26/16 21: 42; Admin Dose 40 MG; Start 11/11/16 at 21:00 Benzonatate (Tessalon) 100 mg Q6 PO Last administered on 11/27/16 17:25; Admin Dose 100 MG; Start 11/11/16 at 12:00 Carisoprodol (Soma) 350 mg Q8 PRN PO MUSCLE SPASMS Last administered on 14:19; Admin Dose 350 MG; Start 11/11/16 at 12:00 Cinacalcet (Sensipar) 30 mg DAILY PO Last administered on 11/27/16 08:41; Admin Dose 30 MG; Start 11/11/16 at 11:00 Furosemide (Lasix) 80 mg DAILY PO Last administered on 11/27/16 08:47; Admin Dose 80 MG; Start 11/11/16 at 09:30 Losartan Potassium (Cozaar) 50 mg BID PO Last administered on 11/27/16 08:46; Admin Dose 50 MG; Start 11/11/16 at 09:30 Metoprolol Succinate (Toprol Xl) 50 mg BID PO Last administered on 11/27/16 08 :45; Admin Dose 50 MG; Start 11/11/16 at 09:30 Montelukast Sodium (Singulair) 10 mg QAM PO Last administered on 11/27/16 08: 41; Admin Dose 10 MG; Start 11/11/16 at 11:00 Oxycodone/ Acetaminophen (Endocet (10 325)) 1 tab Q6 PRN PO PRN Last administered on 11/25/16 03:06; Admin Dose 1 TAB; Start 11/11/16 at 12:00 Pyridoxine HCl (Vitamin B6) 50 mg DAILY PO Last administered on 11/27/16 08:41 ; Admin Dose 50 MG; Start 11/11/16 at 09:30 Tiotropium [place] (Spiriva) 1 inh DAILY INH Last administered on 11/27/16 08: 42; Admin Dose 1 INH; Start 11/11/16 at 11:00 Ondansetron HCl (Zofran Tab) 4 mg Q6H PRN PO NAUSEA AND/OR VOMITING Last administered on 11/22/16 08:46; Admin Dose 4 MG; Start 11/11/16 at 10:00 Salmeterol Xinafoate/ Fluticasone (Advair 250/50 Diskus) 1 inh BID INH Last administered on 11/27/16 08:48; Admin Dose 1 INH; Start 11/11/16 at 11:00 Vancomycin HCl (Vanco Iv Per Pharmacy) PER PHARMACY DOSING NOTE XX ; Start 11/11 at 10:30 Albuterol (Ventolin Hfa) 2 puff Q4H PRN INH AOB Last administered on 11/25/16 12:06; Admin Dose 2 PUFF; Start 11/11/16 at 10:30 Epoetin Hang (Epogen (Esrd)) 10,000 units TuThSa@17 SC Last administered on 17:27; Admin Dose 10,000 UNITS; Start 11/11/16 at 17:00 Pantoprazole (Protonix Tab) 40 mg BID@06,18 PO Last administered on 11/27/16 17:25; Admin Dose 40 MG; Start 11/12/16 at 18:00 Collagenase (Santyl) 1 applic DAILY TOP Last administered on 11/27/16 09:30; Admin Dose 1 APPLIC; Start 11/13/16 at 09:00 Diagnostic Test (Pha) (Accu-Chek) 1 ea 02 XX Last administered on 11/18/16 01: 42; Admin Dose 1 EA; Start 11/14/16 at 02:00 Insulin Detemir (Levemir) 35 unit QHS@20 SC Last administered on 11/26/16 21: 44; Admin Dose 35 UNIT; Start 11/14/16 at 20:00 Nicotine (Nicoderm 21 Mg/ 24hr) 1 patch DAILY TRANSDERM Last administered on 08:44; Admin Dose 1 PATCH; Start 11/14/16 at 20:00 Docusate Sodium (Colace) 100 mg Q12H PO Last administered on 11/27/16 09:30; Admin Dose 100 MG; Start 11/16/16 at 22:00 Miscellaneous Information 1 ea NOTE XX ; Start 11/17/16 at 11:30 Glucose (Glutose) 15 gm Q15M PRN PO DECREASED GLUCOSE; Start 11/17/16 at 11:30 Glucose (Glutose) 22.5 gm Q15M PRN PO DECREASED GLUCOSE; Start 11/17/16 at 11:30 Dextrose (D50w Syringe) 25 ml Q15M PRN IV DECREASED GLUCOSE; Start 11/17/16 at 11:30 Dextrose (D50w Syringe) 50 ml Q15M PRN IV DECREASED GLUCOSE; Start 11/17/16 at 11:30 Glucagon (Glucagen) 1 mg Q15M PRN IM DECREASED GLUCOSE; Start 11/17/16 at 11:30 Glucose (Glutose) 15 gm Q15M PRN BUCCAL DECREASED GLUCOSE; Start 11/17/16 at 11: 30 Polyethylene Glycol (Miralax) 17 gm BID PO Last administered on 11/27/16 08:44 ; Admin Dose 17 GM; Start 11/17/16 at 12:00 Bisacodyl (Dulcolax) 10 mg DAILY PRN PO CONSTIPATION; Start 11/17/16 at 11:30 Diltiazem HCl (Cardizem Cd) 120 mg BID PO Last administered on 11/27/16 08:46 ; Admin Dose 120 MG; Start 11/19/16 at 21:00 Zolpidem Tartrate (Ambien) 5 mg HS PRN PO INSOMNIA Last administered on 02:17; Admin Dose 5 MG; Start 11/19/16 at 21:30 Lorazepam (Ativan) 1 mg Q6H PRN IV AGITATION/ANXIETY Last administered on 10:02; Admin Dose 1 MG; Start 11/21/16 at 21:15 Guaifenesin/ Codeine Phosphate (Robitussin Ac Liquid Cup) 5 ml Q4H PRN PO COUGH Last administered on 11/22/16 08:42; Admin Dose 5 ML; Start 11/21/16 at 21 :30 Morphine Sulfate 2 mg 2 mg Q3H PRN IV for pain Last administered on 11/27/16 09:28; Admin Dose 2 MG; Start 11/24/16 at 18:30 Vancomycin HCl 250 ml @ 125 mls/hr Q96H IVPB Last administered on 11/25/16 15 :53; Admin Dose 125 MLS/HR; Start 11/25/16 at 15:00 Meropenem/Sodium Chloride (Merrem 500mg/50 ml(Pmx)) 50 ml @ 100 mls/hr Q24H IVPB Last administered on 11/27/16 16:07; Admin Dose 100 MLS/HR; Start at 16:00 STEFAN COMBS NP Nov 27, 2016 18:11
[2016-11-27 20:30] VITALS: BP 137/65; RESP 20
[2016-11-27] MEDS: ATORVASTATIN 40 MG TAB PO SCH (20:52)
[2016-11-27] MEDS: INSULIN DETEMIR [LEVEMIR] 3ML CART SC SCH (20:54)
[2016-11-28] MEDS: LORAZEPAM 2 MG INJ IV PRN (00:29)
[2016-11-28] MEDS: ACCU-CHEK XX SCH (02:00)
[2016-11-28 02:27] VITALS: BP 122/82; RESP 18
[2016-11-28] MEDS: PANTOPRAZOLE (EC) 40 MG TAB PO SCH ×2 (05:32→17:51)
[2016-11-28] MEDS: BENZONATATE 100 MG CAP PO SCH ×3 (05:32→17:52)
[2016-11-28 07:54] VITALS: BP 125/71; RESP 18
[2016-11-28] MEDS: INSULIN ASPART [NOVOLOG] 3 ML PEN SC SCH ×4 (08:00→21:00)
[2016-11-28] MEDS: SALMETEROL/FLUTICASONE 250/50 INHA INH SCH ×2 (08:15→20:51)
[2016-11-28] MEDS: CALCIUM ACETATE 667 MG CAP PO SCH ×3 (08:16→17:51)
[2016-11-28] MEDS: TIOTROPIUM 18 MCG CAPSULE INHA DEV INH SCH (08:16)
[2016-11-28] MEDS: POLYETHYLENE GLYCOL 17 GM PACKET PO SCH ×2 (08:17→20:52)
[2016-11-28] MEDS: NICOTINE (21 MG/24 HR) PATCH TRANSDERM SCH (08:17)
[2016-11-28] MEDS: CINACALCET 30 MG TAB PO SCH (08:17)
[2016-11-28] MEDS: ASPIRIN 81 MG TAB PO SCH (08:17)
[2016-11-28] MEDS: METOPROLOL (XL) 50 MG TAB PO SCH ×2 (08:19→20:53)
[2016-11-28] MEDS: DILTIAZEM (CD) 120 MG CAP PO SCH ×2 (08:19→20:52)
[2016-11-28] MEDS: PYRIDOXINE 50 MG TAB PO SCH (08:19)
[2016-11-28] MEDS: FUROSEMIDE 40 MG TAB PO SCH (08:19)
[2016-11-28] MEDS: MONTELUKAST 10 MG TAB PO SCH (08:20)
[2016-11-28] MEDS: APIXABAN 5 MG TABLET PO SCH ×2 (08:20→20:52)
[2016-11-28] MEDS: METOCLOPRAMIDE 5 MG TAB PO SCH ×3 (08:20→17:51)
[2016-11-28] MEDS: AMLODIPINE 5 MG TAB PO SCH (08:20)
[2016-11-28] MEDS: LOSARTAN 50 MG TAB PO SCH ×2 (08:21→20:52)
[2016-11-28] MEDS: COLLAGENASE 30 GM TUBE TOP SCH (09:09)
--- NOTE | 2016-11-28 09:44 | PN ---
Date/Time of Note Date/Time of Note DATE: 11/28/16 TIME: 09:41 Assessment/Plan VTE Prophylaxis VTE Prophylaxis Intervention: heparin Lines/Catheters IV Catheter Type (from Nrs): Saline Lock Urinary Cath still in place: No Assessment/Plan Problems: (1) Debility Status: Chronic Comment: She will need placement in an extended care facility for ongoing care and rehabilitation. overhead worker is attempting to do so with case management however she is not as straightforward placement as other patient (2) Diabetes mellitus type 2 in obese Status: Chronic Comment: Adequate control on current regimen without hypoglycemia (3) End stage renal disease on dialysis Status: Chronic Comment: As per nephrology (4) Obesity (BMI 30.0-34.9) Status: Chronic Comment: Calorie restriction diet (5) Hyperlipidemia associated with type 2 diabetes mellitus Status: Chronic Comment: Continue on statin therapy as appropriate the patient is tolerating this therapeutic (6) Diabetic foot ulcer Status: Chronic Comment: She may need somewhat less pain medication. The meantime she continues with wound VAC and antibiotics. Infectious diseases recommended a duration which have put into the orders to maintain clarity Qualifiers: Diabetic foot ulcer location: heel Diabetes mellitus type: type 2 Laterality: unspecified laterality Non-pressure ulcer stage: with fat layer exposed Qualified Code: E11.621 - Diabetic ulcer of heel associated with type 2 diabetes mellitus, with fat layer exposed, unspecified laterality (7) Essential hypertension Status: Chronic Comment: Adequately controlled Subjective 24 Hr Interval Summary Free Text/Dictation Patient lying in bed and appears quite narcotize after morphine Constitutional: no complaints Exam/Review of Systems Vital Signs Vitals Vital Signs Date Time Temp Pulse Resp B/P Pulse Ox O2 Delivery O2 Flow Rate FiO2 11/28/16 07:54 97.5 73 18 125/71 91 11/27/16 21:00 Nasal Cannula 2.0 Intake and Output 11/27/16 11/27/16 11/28/16 15:00 23:00 07:00 Intake Total 370 ml 200 ml Balance 370 ml 200 ml Exam Arousable but narcotize Neck: non-tender, supple Respiratory: clear to auscultation, normal air movement Cardiovascular: nl pulses, regular rate and rhythm Results Result Diagram: 11/27/16 0516 11/27/16 0512 Results 24 hrs Laboratory Tests Test 11/27/16 12:19 7/15/17 17:23 11/27/16 20:51 11/28/16 06:20 Bedside Glucose 157 135 138 Lab Scanned Report BLOOD TRANSFUSION Test 11/28/16 08:12 Bedside Glucose 99 Medications Medications Current Medications Amlodipine Besylate (Norvasc) 5 mg DAILY PO Last administered on 11/28/16 08: 20; Admin Dose 5 MG; Start 11/11/16 at 09:30 Apixaban (Eliquis) 5 mg BID PO Last administered on 11/28/16 08:20; Admin Dose 5 MG; Start 11/11/16 at 09:30 Aspirin (Aspirin) 81 mg DAILY PO Last administered on 11/28/16 08:17; Admin Dose 81 MG; Start 11/11/16 at 09:30 Atorvastatin Calcium (Lipitor) 40 mg QHS PO Last administered on 11/27/16 20: 52; Admin Dose 40 MG; Start 11/11/16 at 21:00 Benzonatate (Tessalon) 100 mg Q6 PO Last administered on 11/28/16 05:32; Admin Dose 100 MG; Start 11/11/16 at 12:00 Carisoprodol (Soma) 350 mg Q8 PRN PO MUSCLE SPASMS Last administered on 14:19; Admin Dose 350 MG; Start 11/11/16 at 12:00 Cinacalcet (Sensipar) 30 mg DAILY PO Last administered on 11/28/16 08:17; Admin Dose 30 MG; Start 11/11/16 at 11:00 Furosemide (Lasix) 80 mg DAILY PO Last administered on 11/28/16 08:19; Admin Dose 80 MG; Start 11/11/16 at 09:30 Losartan Potassium (Cozaar) 50 mg BID PO Last administered on 11/28/16 08:21; Admin Dose 50 MG; Start 11/11/16 at 09:30 Metoprolol Succinate (Toprol Xl) 50 mg BID PO Last administered on 11/28/16 08 :19; Admin Dose 50 MG; Start 11/11/16 at 09:30 Montelukast Sodium (Singulair) 10 mg QAM PO Last administered on 11/28/16 08: 20; Admin Dose 10 MG; Start 11/11/16 at 11:00 Oxycodone/ Acetaminophen (Endocet (10/ 325)) 1 tab Q6 PRN PO PRN Last administered on 11/25/16 03:06; Admin Dose 1 TAB; Start 11/11/16 at 12:00 Pyridoxine HCl (Vitamin B6) 50 mg DAILY PO Last administered on 11/28/16 08:19 ; Admin Dose 50 MG; Start 11/11/16 at 09:30 Tiotropium [place] (Spiriva) 1 inh DAILY INH Last administered on 11/28/16 08: 16; Admin Dose 1 INH; Start 11/11/16 at 11:00 Ondansetron HCl (Zofran Tab) 4 mg Q6H PRN PO NAUSEA AND/OR VOMITING Last administered on 11/22/16 08:46; Admin Dose 4 MG; Start 11/11/16 at 10:00 Salmeterol Xinafoate/ Fluticasone (Advair 250/50 Diskus) 1 inh BID INH Last administered on 11/28/16 08:15; Admin Dose 1 INH; Start 11/11/16 at 11:00 Vancomycin HCl (Vanco Iv Per Pharmacy) PER PHARMACY DOSING NOTE XX ; Start 11/11 at 10:30 Albuterol (Ventolin Hfa) 2 puff Q4H PRN INH AOB Last administered on 11/25/16 12:06; Admin Dose 2 PUFF; Start 11/11/16 at 10:30 Epoetin Hang (Epogen (Esrd)) 10,000 units TuThSa@17 SC Last administered on 17:27; Admin Dose 10,000 UNITS; Start 11/11/16 at 17:00 Pantoprazole (Protonix Tab) 40 mg BID@06,18 PO Last administered on 11/28/16 05:32; Admin Dose 40 MG; Start 11/12/16 at 18:00 Collagenase (Santyl) 1 applic DAILY TOP Last administered on 11/28/16 09:09; Admin Dose 1 APPLIC; Start 11/13/16 at 09:00 Diagnostic Test (Pha) (Accu-Chek) 1 ea 02 XX Last administered on 11/18/16 01: 42; Admin Dose 1 EA; Start 11/14/16 at 02:00 Insulin Detemir (Levemir) 35 unit QHS@20 SC Last administered on 11/27/16 20: 54; Admin Dose 35 UNIT; Start 11/14/16 at 20:00 Nicotine (Nicoderm 21 Mg/ 24hr) 1 patch DAILY TRANSDERM Last administered on 08:17; Admin Dose 1 PATCH; Start 11/14/16 at 20:00 Docusate Sodium (Colace) 100 mg Q12H PO Last administered on 11/27/16 21:58; Admin Dose 100 MG; Start 11/16/16 at 22:00 Miscellaneous Information 1 ea NOTE XX ; Start 11/17/16 at 11:30 Glucose (Glutose) 15 gm Q15M PRN PO DECREASED GLUCOSE; Start 11/17/16 at 11:30 Glucose (Glutose) 22.5 gm Q15M PRN PO DECREASED GLUCOSE; Start 11/17/16 at 11:30 Dextrose (D50w Syringe) 25 ml Q15M PRN IV DECREASED GLUCOSE; Start 11/17/16 at 11:30 Dextrose (D50w Syringe) 50 ml Q15M PRN IV DECREASED GLUCOSE; Start 11/17/16 at 11:30 Glucagon (Glucagen) 1 mg Q15M PRN IM DECREASED GLUCOSE; Start 11/17/16 at 11:30 Glucose (Glutose) 15 gm Q15M PRN BUCCAL DECREASED GLUCOSE; Start 11/17/16 at 11: 30 Polyethylene Glycol (Miralax) 17 gm BID PO Last administered on 11/28/16 08:17 ; Admin Dose 17 GM; Start 11/17/16 at 12:00 Bisacodyl (Dulcolax) 10 mg DAILY PRN PO CONSTIPATION; Start 11/17/16 at 11:30 Diltiazem HCl (Cardizem Cd) 120 mg BID PO Last administered on 11/28/16 08:19 ; Admin Dose 120 MG; Start 11/19/16 at 21:00 Zolpidem Tartrate (Ambien) 5 mg HS PRN PO INSOMNIA Last administered on 02:17; Admin Dose 5 MG; Start 11/19/16 at 21:30 Lorazepam (Ativan) 1 mg Q6H PRN IV AGITATION/ANXIETY Last administered on 00:29; Admin Dose 1 MG; Start 11/21/16 at 21:15 Guaifenesin/ Codeine Phosphate (Robitussin Ac Liquid Cup) 5 ml Q4H PRN PO COUGH Last administered on 11/22/16 08:42; Admin Dose 5 ML; Start 11/21/16 at 21 :30 Morphine Sulfate 2 mg 2 mg Q3H PRN IV for pain Last administered on 11/27/16 09:28; Admin Dose 2 MG; Start 11/24/16 at 18:30 Vancomycin HCl 250 ml @ 125 mls/hr Q96H IVPB Last administered on 11/25/16 15 :53; Admin Dose 125 MLS/HR; Start 11/25/16 at 15:00 Meropenem/Sodium Chloride (Merrem 500mg/50 ml(Pmx)) 50 ml @ 100 mls/hr Q24H IVPB Last administered on 11/27/16 16:07; Admin Dose 100 MLS/HR; Start at 16:00 FOUZIA CHAMPION MD Nov 28, 2016 09:44
[2016-11-28] MEDS: DOCUSATE SODIUM 100 MG CAP PO SCH ×2 (10:15→22:00)
[2016-11-28 14:21] VITALS: BP 116/58; RESP 18
[2016-11-28] MEDS: MEROPENEM 500MG/50 ML (PMX) 50 ML IVPB SCH (16:23)
--- NOTE | 2016-11-28 17:54 | CONS ---
Date/Time of Note Date/Time of Note DATE: 11/28/16 TIME: 17:51 Assessment/Plan Assessment/Plan Chief Complaint/Hosp Course ID PROGRESS NOTE ABX DAY # Vancomycin IV , Meropenem. 24H INTERVAL SUMMARY * No new issues -> DC Planning to SNF in process pending accepting facility * Pt is resting comfortably, NAD, VSS no fevers, NAD PHYSICAL EXAMINATION: GENERAL: VSS, NAD, no fever, obese F HEENT: Unremarkable NECK: Trach midline CHEST: Equal chest rise bilaterally, without dyspnea on observation HEART: Pulse RRR ABDOMEN: Soft, left flank pain EXTREMITIES: Warm SKIN: Warm, dry, edema BLEXT w/wound vac ID ASSESSMENT: 61 yo super morbid obese F admitted with: 1. Acute encephalopathy, likely toxic metabolic 2. Bilateral lower extremities chronic venous stasis with chronic cellulitis and left hip wound, s/p debridement and wound vac application 10/19/16. 3. End-stage renal disease, on hemodialysis. 4. Healthcare associated pneumonia, possibly aspiration = CLINICALLY IMPROVED * CXR 11/26/16: There is air space disease at the right lung base consistent with pneumonia, unchanged. There is a small right pleural effusion, unchanged. 5. Atrial fibrillation. 6. COPD - stable 7. Hx of falls ABX ALLERGIES: PCN, CIPRO CURRENT ABX: ABX DAY # => Vancomycin IV , Meropenem. ID RECOMMENDATIONS: 1. Continue current ABX 2. DC Planning to SNF w/wound VAC Tx, may TNS on current ABX total 14 days . . * CXR 11/26/16: There is air space disease at the right lung base consistent with pneumonia, unchanged. There is a small right pleural effusion, unchanged. Problems: Consultation Date/Type/Reason Admit Date/Time Nov 11, 2016 at 06:40 Initial Consult Date 11/12/16 Type of Consultation: ID Exam/Review of Systems Vital Signs Vitals Vital Signs Date Time Temp Pulse Resp B/P Pulse Ox O2 Delivery O2 Flow Rate FiO2 11/28/16 14:21 97.5 68 18 116/58 93 11/28/16 08:00 Nasal Cannula 2.0 Intake and Output 11/27/16 11/27/16 11/28/16 15:00 23:00 07:00 Intake Total 370 ml 200 ml Balance 370 ml 200 ml Results Result Diagram: 11/27/16 0516 11/27/16 0512 Results 24 hrs Laboratory Tests Test 11/27/16 20:51 11/28/16 06:20 11/28/16 08:12 11/28/16 11:54 Bedside Glucose 138 99 101 Lab Scanned Report BLOOD TRANSFUSION Test 11/28/16 17:26 Bedside Glucose 120 Medications Medications Current Medications Amlodipine Besylate (Norvasc) 5 mg DAILY PO Last administered on 11/28/16 08: 20; Admin Dose 5 MG; Start 11/11/16 at 09:30 Apixaban (Eliquis) 5 mg BID PO Last administered on 11/28/16 08:20; Admin Dose 5 MG; Start 11/11/16 at 09:30 Aspirin (Aspirin) 81 mg DAILY PO Last administered on 11/28/16 08:17; Admin Dose 81 MG; Start 11/11/16 at 09:30 Atorvastatin Calcium (Lipitor) 40 mg QHS PO Last administered on 11/27/16 20: 52; Admin Dose 40 MG; Start 11/11/16 at 21:00 Benzonatate (Tessalon) 100 mg Q6 PO Last administered on 11/28/16 05:32; Admin Dose 100 MG; Start 11/11/16 at 12:00 Carisoprodol (Soma) 350 mg Q8 PRN PO MUSCLE SPASMS Last administered on 14:19; Admin Dose 350 MG; Start 11/11/16 at 12:00 Cinacalcet (Sensipar) 30 mg DAILY PO Last administered on 11/28/16 08:17; Admin Dose 30 MG; Start 11/11/16 at 11:00 Furosemide (Lasix) 80 mg DAILY PO Last administered on 11/28/16 08:19; Admin Dose 80 MG; Start 11/11/16 at 09:30 Losartan Potassium (Cozaar) 50 mg BID PO Last administered on 11/28/16 08:21; Admin Dose 50 MG; Start 11/11/16 at 09:30 Metoprolol Succinate (Toprol Xl) 50 mg BID PO Last administered on 11/28/16 08 :19; Admin Dose 50 MG; Start 11/11/16 at 09:30 Montelukast Sodium (Singulair) 10 mg QAM PO Last administered on 11/28/16 08: 20; Admin Dose 10 MG; Start 11/11/16 at 11:00 Oxycodone/ Acetaminophen (Endocet (10/ 325)) 1 tab Q6 PRN PO PRN Last administered on 11/25/16 03:06; Admin Dose 1 TAB; Start 11/11/16 at 12:00 Pyridoxine HCl (Vitamin B6) 50 mg DAILY PO Last administered on 11/28/16 08:19 ; Admin Dose 50 MG; Start 11/11/16 at 09:30 Tiotropium [place] (Spiriva) 1 inh DAILY INH Last administered on 11/28/16 08: 16; Admin Dose 1 INH; Start 11/11/16 at 11:00 Ondansetron HCl (Zofran Tab) 4 mg Q6H PRN PO NAUSEA AND/OR VOMITING Last administered on 11/22/16 08:46; Admin Dose 4 MG; Start 11/11/16 at 10:00 Salmeterol Xinafoate/ Fluticasone (Advair 250/50 Diskus) 1 inh BID INH Last administered on 11/28/16 08:15; Admin Dose 1 INH; Start 11/11/16 at 11:00 Vancomycin HCl (Vanco Iv Per Pharmacy) PER PHARMACY DOSING NOTE XX ; Start 11/11 at 10:30 Albuterol (Ventolin Hfa) 2 puff Q4H PRN INH AOB Last administered on 11/25/16 12:06; Admin Dose 2 PUFF; Start 11/11/16 at 10:30 Epoetin Hang (Epogen (Esrd)) 10,000 units TuThSa@17 SC Last administered on 17:27; Admin Dose 10,000 UNITS; Start 11/11/16 at 17:00 Pantoprazole (Protonix Tab) 40 mg BID@06,18 PO Last administered on 11/28/16 05:32; Admin Dose 40 MG; Start 11/12/16 at 18:00 Collagenase (Santyl) 1 applic DAILY TOP Last administered on 11/28/16 09:09; Admin Dose 1 APPLIC; Start 11/13/16 at 09:00 Diagnostic Test (Pha) (Accu-Chek) 1 ea 02 XX Last administered on 11/18/16 01: 42; Admin Dose 1 EA; Start 11/14/16 at 02:00 Insulin Detemir (Levemir) 35 unit QHS@20 SC Last administered on 11/27/16 20: 54; Admin Dose 35 UNIT; Start 11/14/16 at 20:00 Nicotine (Nicoderm 21 Mg/ 24hr) 1 patch DAILY TRANSDERM Last administered on 08:17; Admin Dose 1 PATCH; Start 11/14/16 at 20:00 Docusate Sodium (Colace) 100 mg Q12H PO Last administered on 11/28/16 10:15; Admin Dose 100 MG; Start 11/16/16 at 22:00 Miscellaneous Information 1 ea NOTE XX ; Start 11/17/16 at 11:30 Glucose (Glutose) 15 gm Q15M PRN PO DECREASED GLUCOSE; Start 11/17/16 at 11:30 Glucose (Glutose) 22.5 gm Q15M PRN PO DECREASED GLUCOSE; Start 11/17/16 at 11:30 Dextrose (D50w Syringe) 25 ml Q15M PRN IV DECREASED GLUCOSE; Start 11/17/16 at 11:30 Dextrose (D50w Syringe) 50 ml Q15M PRN IV DECREASED GLUCOSE; Start 11/17/16 at 11:30 Glucagon (Glucagen) 1 mg Q15M PRN IM DECREASED GLUCOSE; Start 11/17/16 at 11:30 Glucose (Glutose) 15 gm Q15M PRN BUCCAL DECREASED GLUCOSE; Start 11/17/16 at 11: 30 Polyethylene Glycol (Miralax) 17 gm BID PO Last administered on 11/28/16 08:17 ; Admin Dose 17 GM; Start 11/17/16 at 12:00 Bisacodyl (Dulcolax) 10 mg DAILY PRN PO CONSTIPATION; Start 11/17/16 at 11:30 Diltiazem HCl (Cardizem Cd) 120 mg BID PO Last administered on 11/28/16 08:19 ; Admin Dose 120 MG; Start 11/19/16 at 21:00 Zolpidem Tartrate (Ambien) 5 mg HS PRN PO INSOMNIA Last administered on 02:17; Admin Dose 5 MG; Start 11/19/16 at 21:30 Lorazepam (Ativan) 1 mg Q6H PRN IV AGITATION/ANXIETY Last administered on 00:29; Admin Dose 1 MG; Start 11/21/16 at 21:15 Guaifenesin/ Codeine Phosphate (Robitussin Ac Liquid Cup) 5 ml Q4H PRN PO COUGH Last administered on 11/22/16 08:42; Admin Dose 5 ML; Start 11/21/16 at 21 :30 Morphine Sulfate 2 mg 2 mg Q3H PRN IV for pain Last administered on 11/27/16 09:28; Admin Dose 2 MG; Start 11/24/16 at 18:30 Vancomycin HCl 250 ml @ 125 mls/hr Q96H IVPB Last administered on 11/25/16 15 :53; Admin Dose 125 MLS/HR; Start 11/25/16 at 15:00; Stop 12/11/16 at 14:59 Meropenem/Sodium Chloride (Merrem 500mg/50 ml(Pmx)) 50 ml @ 100 mls/hr Q24H IVPB Last administered on 11/28/16 16:23; Admin Dose 100 MLS/HR; Start at 16:00; Stop 12/11/16 at 15:59 [employer] Nov 28, 2016 17:53
[2016-11-28] MEDS: INSULIN DETEMIR [LEVEMIR] 3ML CART SC SCH (20:50)
[2016-11-28] MEDS: ATORVASTATIN 40 MG TAB PO SCH (20:52)
[2016-11-28 20:58] VITALS: BP 141/58; RESP 16
[2016-11-28] MEDS: morphine 2 MG INJ IV PRN (22:48)
[2016-11-29] VITALS (12 sets, daily range): BP systolic 89–147; BP diastolic 40–69; PULSE 58–77; RESP 16–19
[2016-11-29] MEDS: BENZONATATE 100 MG CAP PO SCH ×4 (00:09→17:49)
[2016-11-29] MEDS: LORAZEPAM 2 MG INJ IV PRN ×3 (00:46→21:24)
[2016-11-29] MEDS: ACCU-CHEK XX SCH (02:00)
[2016-11-29] MEDS: PANTOPRAZOLE (EC) 40 MG TAB PO SCH ×2 (05:42→17:49)
[2016-11-29] MEDS: METOCLOPRAMIDE 5 MG TAB PO SCH ×3 (05:42→17:49)
[2016-11-29] MEDS: CALCIUM ACETATE 667 MG CAP PO SCH ×3 (07:35→17:49)
[2016-11-29] MEDS: INSULIN ASPART [NOVOLOG] 3 ML PEN SC SCH ×4 (08:00→21:17)
[2016-11-29] MEDS: FUROSEMIDE 40 MG TAB PO SCH (09:00)
[2016-11-29] MEDS: TIOTROPIUM 18 MCG CAPSULE INHA DEV INH SCH ×2 (09:00→11:02)
[2016-11-29] MEDS: APIXABAN 5 MG TABLET PO SCH ×3 (09:00→21:21)
[2016-11-29] MEDS: SALMETEROL/FLUTICASONE 250/50 INHA INH SCH ×3 (09:00→21:19)
[2016-11-29] MEDS: AMLODIPINE 5 MG TAB PO SCH (09:00)
[2016-11-29] MEDS: MONTELUKAST 10 MG TAB PO SCH ×2 (09:00→11:00)
[2016-11-29] MEDS: DILTIAZEM (CD) 120 MG CAP PO SCH ×2 (09:00→21:21)
[2016-11-29] MEDS: LOSARTAN 50 MG TAB PO SCH ×2 (09:00→21:20)
[2016-11-29] MEDS: CINACALCET 30 MG TAB PO SCH (09:00)
[2016-11-29] MEDS: METOPROLOL (XL) 50 MG TAB PO SCH ×2 (09:00→21:20)
[2016-11-29] MEDS: POLYETHYLENE GLYCOL 17 GM PACKET PO SCH ×2 (09:00→21:00)
[2016-11-29] MEDS: PYRIDOXINE 50 MG TAB PO SCH (09:00)
[2016-11-29] MEDS: COLLAGENASE 30 GM TUBE TOP SCH ×2 (09:00→11:09)
[2016-11-29] MEDS: ASPIRIN 81 MG TAB PO SCH ×2 (09:00→11:00)
[2016-11-29] MEDS: DOCUSATE SODIUM 100 MG CAP PO SCH ×3 (09:50→21:22)
[2016-11-29] MEDS: OXYCODONE/ACETAMINOPHEN (10/325) TAB PO PRN (10:59)
[2016-11-29] MEDS: NICOTINE (21 MG/24 HR) PATCH TRANSDERM SCH (11:01)
[2016-11-29] MEDS: GUAIFENESIN/CODEINE 5ML CUP PO PRN (11:54)
[2016-11-29] MEDS: VANCOMYCIN 1 GM in NS 250 ML IVPB SCH (15:13)
--- NOTE | 2016-11-29 15:41 | CONS ---
Date/Time of Note Date/Time of Note DATE: 11/29/16 TIME: 15:39 Assessment/Plan Assessment/Plan Chief Complaint/Hosp Course No acute changes, looks comfortable, no fevers, no nausea vomiting diarrhea Indwelling's: Left upper extremity AV fistula Antimicrobials: Vancomycin, Merrem Physical examination: Morbidly obese well-developed, ill-appearing elderly woman in no distress. Head atraumatic, normocephalic. Sclerae nonicteric. Neck is obese. Chest rise symmetrical, breath sounds diminished basis. Heart S1-S2. Abdomen obese soft bowel tones present. Extremities with bilateral edema, patient has multiple lesions on her lower extremities erythema resolving, she has a left upper thigh wound VAC. ASSESSMENT: 1. Acute encephalopathy, likely toxic metabolic 2. Bilateral lower extremities chronic venous stasis with chronic cellulitis and left hip wound, s/p debridement and wound vac application 10/19/16. 3. End-stage renal disease, on hemodialysis. 4. Morbid obesity. 5. Atrial fibrillation. 6. Healthcare associated pneumonia, possibly aspiration 7. Allergy: Penicillin, Cipro Plan: Remains stable, continue antibiotic, anti-aspiration measures, encourage incentive spirometry, local wound care as per surgical team. Follow labs in am DW staff Problems: Consultation Date/Type/Reason Admit Date/Time Nov 11, 2016 at 06:40 Initial Consult Date 11/12/16 Type of Consultation: ID Exam/Review of Systems Vital Signs Vitals Vital Signs Date Time Temp Pulse Resp B/P Pulse Ox O2 Delivery O2 Flow Rate FiO2 11/29/16 15:02 97.3 70 18 108/52 93 11/28/16 20:00 Nasal Cannula 2.0 Intake and Output 11/28/16 11/28/16 11/29/16 15:00 23:00 07:00 Intake Total 150 ml 200 ml Balance 150 ml 200 ml Results Result Diagram: 11/27/16 0516 11/27/16 0512 Results 24 hrs Laboratory Tests Test 11/28/16 17:26 11/28/16 20:46 11/29/16 08:27 11/29/16 12:19 Bedside Glucose 120 143 141 146 Medications Medications Current Medications Amlodipine Besylate (Norvasc) 5 mg DAILY PO Last administered on 11/28/16t 08: 20; Admin Dose 5 MG; Start 11/11/16 at 09:30 Apixaban (Eliquis) 5 mg BID PO Last administered on 11/29/16 11:03; Admin Dose 5 MG; Start 11/11/16 at 09:30 Aspirin (Aspirin) 81 mg DAILY PO Last administered on 11/29/16 11:00; Admin Dose 81 MG; Start 11/11/16 at 09:30 Atorvastatin Calcium (Lipitor) 40 mg QHS PO Last administered on 11/28/16 20: 52; Admin Dose 40 MG; Start 11/11/16 at 21:00 Benzonatate (Tessalon) 100 mg Q6 PO Last administered on 11/29/16 12:33; Admin Dose 100 MG; Start 11/11/16 at 12:00 Carisoprodol (Soma) 350 mg Q8 PRN PO MUSCLE SPASMS Last administered on 14:19; Admin Dose 350 MG; Start 11/11/16 at 12:00 Cinacalcet (Sensipar) 30 mg DAILY PO Last administered on 11/28/16 08:17; Admin Dose 30 MG; Start 11/11/16 at 11:00 Furosemide (Lasix) 80 mg DAILY PO Last administered on 11/28/16 08:19; Admin Dose 80 MG; Start 11/11/16 at 09:30 Losartan Potassium (Cozaar) 50 mg BID PO Last administered on 11/28/16 20:52; Admin Dose 50 MG; Start 11/11/16 at 09:30 Metoprolol Succinate (Toprol Xl) 50 mg BID PO Last administered on 11/28/16 20 :53; Admin Dose 50 MG; Start 11/11/16 at 09:30 Montelukast Sodium (Singulair) 10 mg QAM PO Last administered on 11/29/16 11: 00; Admin Dose 10 MG; Start 11/11/16 at 11:00 Oxycodone/ Acetaminophen (Endocet (10/ 325)) 1 tab Q6 PRN PO PRN Last administered on 11/29/16 10:59; Admin Dose 1 TAB; Start 11/11/16 at 12:00 Pyridoxine HCl (Vitamin B6) 50 mg DAILY PO Last administered on 11/28/16 08:19 ; Admin Dose 50 MG; Start 11/11/16 at 09:30 Tiotropium [place] (Spiriva) 1 inh DAILY INH Last administered on 11/29/16 11: 02; Admin Dose 1 INH; Start 11/11/16 at 11:00 Ondansetron HCl (Zofran Tab) 4 mg Q6H PRN PO NAUSEA AND/OR VOMITING Last administered on 11/22/16 08:46; Admin Dose 4 MG; Start 11/11/16 at 10:00 Salmeterol Xinafoate/ Fluticasone (Advair 250/50 Diskus) 1 inh BID INH Last administered on 11/29/16 11:02; Admin Dose 1 INH; Start 11/11/16 at 11:00 Vancomycin HCl (Vanco Iv Per Pharmacy) PER PHARMACY DOSING NOTE XX ; Start 11/11 at 10:30; Stop 12/11/16 at 14:59 Albuterol (Ventolin Hfa) 2 puff Q4H PRN INH AOB Last administered on 11/25/16 12:06; Admin Dose 2 PUFF; Start 11/11/16 at 10:30 Epoetin Hang (Epogen (Esrd)) 10,000 units TuThSa@17 SC Last administered on 17:27; Admin Dose 10,000 UNITS; Start 11/11/16 at 17:00 Pantoprazole (Protonix Tab) 40 mg BID@06,18 PO Last administered on 11/29/16 05:42; Admin Dose 40 MG; Start 11/12/16 at 18:00 Collagenase (Santyl) 1 applic DAILY TOP Last administered on 11/29/16 11:09; Admin Dose 1 APPLIC; Start 11/13/16 at 09:00 Diagnostic Test (Pha) (Accu-Chek) 1 ea 02 XX Last administered on 11/18/16 01: 42; Admin Dose 1 EA; Start 11/14/16 at 02:00 Insulin Detemir (Levemir) 35 unit QHS@20 SC Last administered on 11/28/16 20: 50; Admin Dose 35 UNIT; Start 11/14/16 at 20:00 Nicotine (Nicoderm 21 Mg/ 24hr) 1 patch DAILY TRANSDERM Last administered on 11:01; Admin Dose 1 PATCH; Start 11/14/16 at 20:00 Docusate Sodium (Colace) 100 mg Q12H PO Last administered on 11/29/16 11:00; Admin Dose 100 MG; Start 11/16/16 at 22:00 Miscellaneous Information 1 ea NOTE XX ; Start 11/17/16 at 11:30 Glucose (Glutose) 15 gm Q15M PRN PO DECREASED GLUCOSE; Start 11/17/16 at 11:30 Glucose (Glutose) 22.5 gm Q15M PRN PO DECREASED GLUCOSE; Start 11/17/16 at 11:30 Dextrose (D50w Syringe) 25 ml Q15M PRN IV DECREASED GLUCOSE; Start 11/17/16 at 11:30 Dextrose (D50w Syringe) 50 ml Q15M PRN IV DECREASED GLUCOSE; Start 11/17/16 at 11:30 Glucagon (Glucagen) 1 mg Q15M PRN IM DECREASED GLUCOSE; Start 11/17/16 at 11:30 Glucose (Glutose) 15 gm Q15M PRN BUCCAL DECREASED GLUCOSE; Start 11/17/16 at 11: 30 Polyethylene Glycol (Miralax) 17 gm BID PO Last administered on 11/28/16 20:52 ; Admin Dose 17 GM; Start 11/17/16 at 12:00 Bisacodyl (Dulcolax) 10 mg DAILY PRN PO CONSTIPATION; Start 11/17/16 at 11:30 Diltiazem HCl (Cardizem Cd) 120 mg BID PO Last administered on 11/28/16 20:52 ; Admin Dose 120 MG; Start 11/19/16 at 21:00 Zolpidem Tartrate (Ambien) 5 mg HS PRN PO INSOMNIA Last administered on 02:17; Admin Dose 5 MG; Start 11/19/16 at 21:30 Lorazepam (Ativan) 1 mg Q6H PRN IV AGITATION/ANXIETY Last administered on 12:33; Admin Dose 1 MG; Start 11/21/16 at 21:15 Guaifenesin/ Codeine Phosphate (Robitussin Ac Liquid Cup) 5 ml Q4H PRN PO COUGH Last administered on 11/29/16 11:54; Admin Dose 5 ML; Start 11/21/16 at 21 :30 Morphine Sulfate 2 mg 2 mg Q3H PRN IV for pain Last administered on 11/28/16 22:48; Admin Dose 2 MG; Start 11/24/16 at 18:30 Vancomycin HCl 250 ml @ 125 mls/hr Q96H IVPB Last administered on 11/29/16 15 :13; Admin Dose 125 MLS/HR; Start 11/25/16 at 15:00; Stop 12/11/16 at 14:59 Meropenem/Sodium Chloride (Merrem 500mg/50 ml(Pmx)) 50 ml @ 100 mls/hr Q24H IVPB Last administered on 11/28/16 16:23; Admin Dose 100 MLS/HR; Start at 16:00; Stop 12/11/16 at 15:59 TODD RAMIRES NP Nov 29, 2016 15:40
--- NOTE | 2016-11-29 16:41 | CONS ---
Date/Time of Note Date/Time of Note DATE: 11/29/16 TIME: 16:40 Assessment/Plan Assessment/Plan Chief Complaint/Hosp Course - ESRD on Hemodialysis [facility] - POST FALL - ACUTE ANEMIA - Hx of Cellulitis - CAD/CHF - Hx of Hypertension - Pneumonia PLAN: Bedside dialysis Aim for UF ~ 2 Kg Monitor H/H Continue with Abx Started EPOGEN Iron Problems: Consultation Date/Type/Reason Admit Date/Time Nov 11, 2016 at 06:40 Initial Consult Date 11/12/16 Type of Consultation: NEPHROLOGY 24 HR Interval Summary Constitutional: improved, no complaints Exam/Review of Systems Vital Signs Vitals Vital Signs Date Time Temp Pulse Resp B/P Pulse Ox O2 Delivery O2 Flow Rate FiO2 11/29/16 15:02 97.3 70 18 108/52 93 11/28/16 20:00 Nasal Cannula 2.0 Intake and Output 11/28/16 11/28/16 11/29/16 15:00 23:00 07:00 Intake Total 150 ml 200 ml Balance 150 ml 200 ml Exam Constitutional: alert, oriented Respiratory: crackles/rales Cardiovascular: edema, regular rate and rhythm, systolic murmur Gastrointestinal: soft Results Result Diagram: 11/27/16 0516 11/27/16 0512 Results 24 hrs Laboratory Tests Test 11/28/16 17:26 11/28/16 20:46 11/29/16 08:27 11/29/16 12:19 Bedside Glucose 120 143 141 146 Medications Medications Current Medications Amlodipine Besylate (Norvasc) 5 mg DAILY PO Last administered on 11/28/16 08: 20; Admin Dose 5 MG; Start 11/11/16 at 09:30 Apixaban (Eliquis) 5 mg BID PO Last administered on 11/29/16 11:03; Admin Dose 5 MG; Start 11/11/16 at 09:30 Aspirin (Aspirin) 81 mg DAILY PO Last administered on 11/29/16 11:00; Admin Dose 81 MG; Start 11/11/16 at 09:30 Atorvastatin Calcium (Lipitor) 40 mg QHS PO Last administered on 11/28/16 20: 52; Admin Dose 40 MG; Start 11/11/16 at 21:00 Benzonatate (Tessalon) 100 mg Q6 PO Last administered on 11/29/16 12:33; Admin Dose 100 MG; Start 11/11/16 at 12:00 Carisoprodol (Soma) 350 mg Q8 PRN PO MUSCLE SPASMS Last administered on 14:19; Admin Dose 350 MG; Start 11/11/16 at 12:00 Cinacalcet (Sensipar) 30 mg DAILY PO Last administered on 11/28/16 08:17; Admin Dose 30 MG; Start 11/11/16 at 11:00 Furosemide (Lasix) 80 mg DAILY PO Last administered on 11/28/16 08:19; Admin Dose 80 MG; Start 11/11/16 at 09:30 Losartan Potassium (Cozaar) 50 mg BID PO Last administered on 11/28/16 20:52; Admin Dose 50 MG; Start 11/11/16 at 09:30 Metoprolol Succinate (Toprol Xl) 50 mg BID PO Last administered on 11/28/16 20 :53; Admin Dose 50 MG; Start 11/11/16 at 09:30 Montelukast Sodium (Singulair) 10 mg QAM PO Last administered on 11/29/16 11: 00; Admin Dose 10 MG; Start 11/11/16 at 11:00 Oxycodone/ Acetaminophen (Endocet (10/ 325)) 1 tab Q6 PRN PO PRN Last administered on 11/29/16 10:59; Admin Dose 1 TAB; Start 11/11/16 at 12:00 Pyridoxine HCl (Vitamin B6) 50 mg DAILY PO Last administered on 11/28/16 08:19 ; Admin Dose 50 MG; Start 11/11/16 at 09:30 Tiotropium [place] (Spiriva) 1 inh DAILY INH Last administered on 11/29/16 11: 02; Admin Dose 1 INH; Start 11/11/16 at 11:00 Ondansetron HCl (Zofran Tab) 4 mg Q6H PRN PO NAUSEA AND/OR VOMITING Last administered on 11/22/16 08:46; Admin Dose 4 MG; Start 11/11/16 at 10:00 Salmeterol Xinafoate/ Fluticasone (Advair 250/50 Diskus) 1 inh BID INH Last administered on 11/29/16 11:02; Admin Dose 1 INH; Start 11/11/16 at 11:00 Vancomycin HCl (Vanco Iv Per Pharmacy) PER PHARMACY DOSING NOTE XX ; Start 11/11 at 10:30; Stop 12/11/16 at 14:59 Albuterol (Ventolin Hfa) 2 puff Q4H PRN INH AOB Last administered on 11/25/16 12:06; Admin Dose 2 PUFF; Start 11/11/16 at 10:30 Epoetin Hang (Epogen (Esrd)) 10,000 units TuThSa@17 SC Last administered on 17:27; Admin Dose 10,000 UNITS; Start 11/11/16 at 17:00 Pantoprazole (Protonix Tab) 40 mg BID@18 PO Last administered on 11/29/16 05:42; Admin Dose 40 MG; Start 11/12/16 at 18:00 Collagenase (Santyl) 1 applic DAILY TOP Last administered on 11/29/16 11:09; Admin Dose 1 APPLIC; Start 11/13/16 at 09:00 Diagnostic Test (Pha) (Accu-Chek) 1 ea 02 XX Last administered on 11/18/16 01: 42; Admin Dose 1 EA; Start 11/14/16 at 02:00 Insulin Detemir (Levemir) 35 unit QHS@20 SC Last administered on 11/28/16 20: 50; Admin Dose 35 UNIT; Start 11/14/16 at 20:00 Nicotine (Nicoderm 21 Mg/ 24hr) 1 patch DAILY TRANSDERM Last administered on 11:01; Admin Dose 1 PATCH; Start 11/14/16 at 20:00 Docusate Sodium (Colace) 100 mg Q12H PO Last administered on 11/29/16 11:00; Admin Dose 100 MG; Start 11/16/16 at 22:00 Miscellaneous Information 1 ea NOTE XX ; Start 11/17/16 at 11:30 Glucose (Glutose) 15 gm Q15M PRN PO DECREASED GLUCOSE; Start 11/17/16 at 11:30 Glucose (Glutose) 22.5 gm Q15M PRN PO DECREASED GLUCOSE; Start 11/17/16 at 11:30 Dextrose (D50w Syringe) 25 ml Q15M PRN IV DECREASED GLUCOSE; Start 11/17/16 at 11:30 Dextrose (D50w Syringe) 50 ml Q15M PRN IV DECREASED GLUCOSE; Start 11/17/16 at 11:30 Glucagon (Glucagen) 1 mg Q15M PRN IM DECREASED GLUCOSE; Start 11/17/16 at 11:30 Glucose (Glutose) 15 gm Q15M PRN BUCCAL DECREASED GLUCOSE; Start 11/17/16 at 11: 30 Polyethylene Glycol (Miralax) 17 gm BID PO Last administered on 11/28/16 20:52 ; Admin Dose 17 GM; Start 11/17/16 at 12:00 Bisacodyl (Dulcolax) 10 mg DAILY PRN PO CONSTIPATION; Start 11/17/16 at 11:30 Diltiazem HCl (Cardizem Cd) 120 mg BID PO Last administered on 11/28/16 20:52 ; Admin Dose 120 MG; Start 11/19/16 at 21:00 Zolpidem Tartrate (Ambien) 5 mg HS PRN PO INSOMNIA Last administered on 02:17; Admin Dose 5 MG; Start 11/19/16 at 21:30 Lorazepam (Ativan) 1 mg Q6H PRN IV AGITATION/ANXIETY Last administered on 12:33; Admin Dose 1 MG; Start 11/21/16 at 21:15 Guaifenesin/ Codeine Phosphate (Robitussin Ac Liquid Cup) 5 ml Q4H PRN PO COUGH Last administered on 11/29/16 11:54; Admin Dose 5 ML; Start 11/21/16 at 21 :30 Morphine Sulfate 2 mg 2 mg Q3H PRN IV for pain Last administered on 11/28/16 22:48; Admin Dose 2 MG; Start 11/24/16 at 18:30 Vancomycin HCl 250 ml @ 125 mls/hr Q96H IVPB Last administered on 11/29/16 15 :13; Admin Dose 125 MLS/HR; Start 11/25/16 at 15:00; Stop 12/11/16 at 14:59 Meropenem/Sodium Chloride (Merrem 500mg/50 ml(Pmx)) 50 ml @ 100 mls/hr Q24H IVPB Last administered on 11/28/16 16:23; Admin Dose 100 MLS/HR; Start at 16:00; Stop 7/29/17 at 15:59 BECKY GAMBLE MD Nov 29, 2016 16:41
[2016-11-29] MEDS: MEROPENEM 500MG/50 ML (PMX) 50 ML IVPB SCH (17:40)
--- NOTE | 2016-11-29 18:18 | PN ---
Date/Time of Note Date/Time of Note DATE: 11/29/16 TIME: 18:14 Assessment/Plan VTE Prophylaxis VTE Prophylaxis Intervention: LMWH, other (eliquis) Lines/Catheters IV [facility] [place] [facility] Urinary Cath still in place: No Assessment/Plan Chief Complaint/Hosp Course Patient is a 61-year-old female with past history of end-stage renal disease, diabetes, hypertension and obesity presents to [facility] 4 grown falls at home found to have ulcers and pneumonia. Assessment Debility Left lower extremity thigh area ulcer, with wound VAC Diabetes type 2 End-stage renal disease, on dialysis Pneumonia Obesity Dyslipidemia Diabetic foot ulcers Bilateral lower extremity chronic venous stasis ulcers Chronic cellulitis Left hip wound Coronary artery disease Hypertension Atrial fibrillation Lower extremity edema Insomnia Plan -Patient has multiple medical conditions, continue vancomycin and meropenem for left hip wound, for total of 14 days per ID -continue home medications as able -Patient will likely need intermediate, pending placement at this time -As needed medications for pain -Wound care ordered -Wound VAC care ordered. Problems: Subjective 24 Hr Interval Summary Free Text/Dictation Patient has no acute complaints States left hip wound still hurts Exam/Review of Systems Vital Signs Vitals Vital Signs Date Time Temp Pulse Resp B/P Pulse Ox O2 Delivery O2 Flow Rate FiO2 11/29/16 15:02 97.3 70 18 108/52 93 11/29/16 08:00 Nasal Cannula 2.0 Intake and Output 11/28/16 11/28/16 11/29/16 15:00 23:00 07:00 Intake Total 150 ml 200 ml Balance 150 ml 200 ml Exam Physical exam General: Patient is laying in bed and answers questions appropriately Mentation: Patient is alert and oriented 4, Head: Normocephalic atraumatic Eyes: EOMI, pupils reactive to light Neck: Supple, nontender, midline Respiratory:mildly course to auscultation bilaterally Cardiovascular: regular rate, no obvious murmurs Gastrointestinal: non-tender to palpation, bowel sounds heard. Neurological: Moves all extremities spontaneously Skin: multiple skin lesions on body. L hip wound with wound vac. multiple LE ulcerations. Results Result Diagram: 11/27/16 0516 11/27/16 0512 Results 24 hrs Laboratory Tests Test 11/28/16 20:46 11/29/16 08:27 11/29/16 12:19 11/29/16 17:38 Bedside Glucose 143 141 146 160 Medications Medications Current Medications Amlodipine Besylate (Norvasc) 5 mg DAILY PO Last administered on 11/28/16 08: 20; Admin Dose 5 MG; Start 11/11/16 at 09:30 Apixaban (Eliquis) 5 mg BID PO Last administered on 11/29/16 11:03; Admin Dose 5 MG; Start 11/11/16 at 09:30 Aspirin (Aspirin) 81 mg DAILY PO Last administered on 11/29/16 11:00; Admin Dose 81 MG; Start 11/11/16 at 09:30 Atorvastatin Calcium (Lipitor) 40 mg QHS PO Last administered on 11/28/16 20: 52; Admin Dose 40 MG; Start 11/11/16 at 21:00 Benzonatate (Tessalon) 100 mg Q6 PO Last administered on 11/29/16 17:49; Admin Dose 100 MG; Start 11/11/16 at 12:00 Carisoprodol (Soma) 350 mg Q8 PRN PO MUSCLE SPASMS Last administered on 14:19; Admin Dose 350 MG; Start 11/11/16 at 12:00 Cinacalcet (Sensipar) 30 mg DAILY PO Last administered on 11/28/16 08:17; Admin Dose 30 MG; Start 11/11/16 at 11:00 Furosemide (Lasix) 80 mg DAILY PO Last administered on 11/28/16 08:19; Admin Dose 80 MG; Start 11/11/16 at 09:30 Losartan Potassium (Cozaar) 50 mg BID PO Last administered on 11/28/16 20:52; Admin Dose 50 MG; Start 11/11/16 at 09:30 Metoprolol Succinate (Toprol Xl) 50 mg BID PO Last administered on 11/28/16 20 :53; Admin Dose 50 MG; Start 11/11/16 at 09:30 Montelukast Sodium (Singulair) 10 mg QAM PO Last administered on 11/29/16 11: 00; Admin Dose 10 MG; Start 11/11/16 at 11:00 Oxycodone/ Acetaminophen (Endocet (10/ 325)) 1 tab Q6 PRN PO PRN Last administered on 11/29/16 10:59; Admin Dose 1 TAB; Start 11/11/16 at 12:00 Pyridoxine HCl (Vitamin B6) 50 mg DAILY PO Last administered on 11/28/16 08:19 ; Admin Dose 50 MG; Start 11/11/16 at 09:30 Tiotropium [place] (Spiriva) 1 inh DAILY INH Last administered on 11/29/16 11: 02; Admin Dose 1 INH; Start 11/11/16 at 11:00 Ondansetron HCl (Zofran Tab) 4 mg Q6H PRN PO NAUSEA AND/OR VOMITING Last administered on 11/22/16 08:46; Admin Dose 4 MG; Start 11/11/16 at 10:00 Salmeterol Xinafoate/ Fluticasone (Advair 250/50 Diskus) 1 inh BID INH Last administered on 11/29/16 11:02; Admin Dose 1 INH; Start 11/11/16 at 11:00 Vancomycin HCl (Vanco Iv Per Pharmacy) PER PHARMACY DOSING NOTE XX ; Start 11/11 at 10:30; Stop 12/11/16 at 14:59 Albuterol (Ventolin Hfa) 2 puff Q4H PRN INH AOB Last administered on 11/25/16 12:06; Admin Dose 2 PUFF; Start 11/11/16 at 10:30 Epoetin Hang (Epogen (Esrd)) 10,000 units TuThSa@17 SC Last administered on 17:27; Admin Dose 10,000 UNITS; Start 11/11/16 at 17:00 Pantoprazole (Protonix Tab) 40 mg BID@06,18 PO Last administered on 11/29/16 17:49; Admin Dose 40 MG; Start 11/12/16 at 18:00 Collagenase (Santyl) 1 applic DAILY TOP Last administered on 11/29/16 11:09; Admin Dose 1 APPLIC; Start 11/13/16 at 09:00 Diagnostic Test (Pha) (Accu-Chek) 1 ea 02 XX Last administered on 11/18/16 01: 42; Admin Dose 1 EA; Start 11/14/16 at 02:00 Insulin Detemir (Levemir) 35 unit QHS@20 SC Last administered on 11/28/16 20: 50; Admin Dose 35 UNIT; Start 11/14/16 at 20:00 Nicotine (Nicoderm 21 Mg/ 24hr) 1 patch DAILY TRANSDERM Last administered on 11:01; Admin Dose 1 PATCH; Start 11/14/16 at 20:00 Docusate Sodium (Colace) 100 mg Q12H PO Last administered on 11/29/16 11:00; Admin Dose 100 MG; Start 11/16/16 at 22:00 Miscellaneous Information 1 ea NOTE XX ; Start 11/17/16 at 11:30 Glucose (Glutose) 15 gm Q15M PRN PO DECREASED GLUCOSE; Start 11/17/16 at 11:30 Glucose (Glutose) 22.5 gm Q15M PRN PO DECREASED GLUCOSE; Start 11/17/16 at 11:30 Dextrose (D50w Syringe) 25 ml Q15M PRN IV DECREASED GLUCOSE; Start 11/17/16 at 11:30 Dextrose (D50w Syringe) 50 ml Q15M PRN IV DECREASED GLUCOSE; Start 11/17/16 at 11:30 Glucagon (Glucagen) 1 mg Q15M PRN IM DECREASED GLUCOSE; Start 11/17/16 at 11:30 Glucose (Glutose) 15 gm Q15M PRN BUCCAL DECREASED GLUCOSE; Start 11/17/16 at 11: 30 Polyethylene Glycol (Miralax) 17 gm BID PO Last administered on 11/28/16 20:52 ; Admin Dose 17 GM; Start 11/17/16 at 12:00 Bisacodyl (Dulcolax) 10 mg DAILY PRN PO CONSTIPATION; Start 11/17/16 at 11:30 Diltiazem HCl (Cardizem Cd) 120 mg BID PO Last administered on 11/28/16 20:52 ; Admin Dose 120 MG; Start 11/19/16 at 21:00 Zolpidem Tartrate (Ambien) 5 mg HS PRN PO INSOMNIA Last administered on 02:17; Admin Dose 5 MG; Start 11/19/16 at 21:30 Lorazepam (Ativan) 1 mg Q6H PRN IV AGITATION/ANXIETY Last administered on 12:33; Admin Dose 1 MG; Start 11/21/16 at 21:15 Guaifenesin/ Codeine Phosphate (Robitussin Ac Liquid Cup) 5 ml Q4H PRN PO COUGH Last administered on 11/29/16 11:54; Admin Dose 5 ML; Start 11/21/16 at 21 :30 Morphine Sulfate 2 mg 2 mg Q3H PRN IV for pain Last administered on 11/28/16 22:48; Admin Dose 2 MG; Start 11/24/16 at 18:30 Vancomycin HCl 250 ml @ 125 mls/hr Q96H IVPB Last administered on 11/29/16 15 :13; Admin Dose 125 MLS/HR; Start 11/25/16 at 15:00; Stop 12/11/16 at 14:59 Meropenem/Sodium Chloride (Merrem 500mg/50 ml(Pmx)) 50 ml @ 100 mls/hr Q24H IVPB Last administered on 11/29/16 17:40; Admin Dose 100 MLS/HR; Start at 16:00; Stop 12/11/16 at 15:59 CHIP MUNSON Nov 29, 2016 18:18
[2016-11-29] MEDS: INSULIN DETEMIR [LEVEMIR] 3ML CART SC SCH (21:18)
[2016-11-29] MEDS: ATORVASTATIN 40 MG TAB PO SCH (21:21)
[2016-11-30] MEDS: BENZONATATE 100 MG CAP PO SCH ×4 (00:15→17:15)
[2016-11-30] MEDS: OXYCODONE/ACETAMINOPHEN (10/325) TAB PO PRN ×2 (00:15→06:59)
[2016-11-30] MEDS: CARISOPRODOL 350 MG TAB PO PRN ×2 (01:20→09:36)
[2016-11-30] MEDS: ACCU-CHEK XX SCH (02:00)
[2016-11-30 03:51] VITALS: BP 89/54; RESP 19
[2016-11-30] MEDS: LORAZEPAM 2 MG INJ IV PRN ×3 (05:11→23:29)
[2016-11-30] MEDS: PANTOPRAZOLE (EC) 40 MG TAB PO SCH ×2 (05:11→17:15)
[2016-11-30 06:29] LABS: ADD SCAN DIFF NO
[2016-11-30 06:34] LABS: ABNORMAL IP MESSAGE 1; BASOPHIL # 0.1 10^3/ul (0.0-0.1); BASOPHILS % 0.4 % (0.0-2.0); EOSINOPHILS # 0.3 10^3/ul (0.0-0.5); EOSINOPHILS % 2.4 % (0.0-7.0); HEMATOCRIT 24.7 % (37.0-47.0); HEMOGLOBIN 7.4 g/dl (12.0-16.0); LYMPHOCYTES # 1.5 10^3/ul (0.8-2.9); LYMPHOCYTES % 11.4 % (15.0-51.0); MEAN CORPUSCULAR HEMOGLOBIN 30.2 pg (29.0-33.0); MEAN CORPUSCULAR VOLUME 100.8 fl (82.0-101.0); MEAN PLATELET VOLUME 9.8 fl (7.4-10.4); MONOCYTES % 14.8 % (0.0-11.0); NEUTROPHIL # 9.4 10^3/ul (1.6-7.5); NEUTROPHILS % 69.2 % (39.0-77.0); NUCLEATED RED BLOOD CELLS # 0.2 10^3/ul (0.0-0.0); NUCLEATED RED BLOOD CELLS% 1.5 /100WBC (0.0-0.0); PLATELET COUNT 374 10^3/UL (140-415); RED BLOOD COUNT 2.45 10^6/ul (4.20-5.40); RED CELL DISTRIBUTION WIDTH 21.9 % (11.5-14.5); WHITE BLOOD COUNT 13.5 10^3/ul (4.8-10.8)
[2016-11-30] MEDS: INSULIN ASPART [NOVOLOG] 3 ML PEN SC SCH ×4 (07:57→20:34)
[2016-11-30 07:59] VITALS: BP 112/60; RESP 20
[2016-11-30] MEDS: COLLAGENASE 30 GM TUBE TOP SCH (09:00)
[2016-11-30] MEDS: POLYETHYLENE GLYCOL 17 GM PACKET PO SCH ×2 (09:00→21:00)
[2016-11-30] MEDS: CINACALCET 30 MG TAB PO SCH (09:31)
[2016-11-30] MEDS: METOPROLOL (XL) 50 MG TAB PO SCH ×2 (09:32→20:38)
[2016-11-30] MEDS: MONTELUKAST 10 MG TAB PO SCH (09:32)
[2016-11-30] MEDS: CALCIUM ACETATE 667 MG CAP PO SCH ×3 (09:32→17:15)
[2016-11-30] MEDS: PYRIDOXINE 50 MG TAB PO SCH (09:32)
[2016-11-30] MEDS: ASPIRIN 81 MG TAB PO SCH (09:32)
[2016-11-30] MEDS: METOCLOPRAMIDE 5 MG TAB PO SCH ×3 (09:33→17:15)
[2016-11-30] MEDS: APIXABAN 5 MG TABLET PO SCH ×2 (09:33→20:35)
[2016-11-30] MEDS: AMLODIPINE 5 MG TAB PO SCH (09:33)
[2016-11-30] MEDS: FUROSEMIDE 40 MG TAB PO SCH (09:33)
[2016-11-30] MEDS: NICOTINE (21 MG/24 HR) PATCH TRANSDERM SCH (09:33)
[2016-11-30] MEDS: DILTIAZEM (CD) 120 MG CAP PO SCH ×2 (09:34→20:35)
[2016-11-30] MEDS: SALMETEROL/FLUTICASONE 250/50 INHA INH SCH ×2 (09:34→20:36)
[2016-11-30] MEDS: LOSARTAN 50 MG TAB PO SCH ×2 (09:34→20:36)
[2016-11-30] MEDS: TIOTROPIUM 18 MCG CAPSULE INHA DEV INH SCH (09:34)
[2016-11-30] MEDS: DOCUSATE SODIUM 100 MG CAP PO SCH ×2 (09:35→22:03)
--- NOTE | 2016-11-30 11:20 | CONS ---
Date/Time of Note Date/Time of Note DATE: 11/30/16 TIME: 11:16 Assessment/Plan Assessment/Plan Chief Complaint/Hosp Course - ESRD [facility] - POST FALL - ACUTE ANEMIA - Hx of Cellulitis - CAD/CHF - Hx of Hypertension - Pneumonia PLAN: Bedside dialysis Aim for UF ~ 2 Kg Monitor H/H Continue with Abx Started EPOGEN Iron Will transfuse 2 units of PRBC on dialysis in AM Problems: Consultation Date/Type/Reason Admit Date/Time Nov 11, 2016 at 06:40 Initial Consult Date 11/12/16 Type of Consultation: NEPHROLOGY Reason for Consultation - ESRD on hemodialysis 24 HR Interval Summary Constitutional: improved, no complaints Exam/Review of Systems Vital Signs Vitals Vital Signs Date Time Temp Pulse Resp B/P Pulse Ox O2 Delivery O2 Flow Rate FiO2 11/30/16 07:59 97.9 71 20 112/60 91 11/30/16 05:48 2.0 11/29/16 21:20 Nasal Cannula Intake and Output 11/29/16 11/29/16 11/30/16 15:00 23:00 07:00 Intake Total 400 ml 940 ml 200 ml Output Total 2800 ml 3000 ml Balance -2400 ml -2060 ml 200 ml Exam Constitutional: alert, oriented Respiratory: crackles/rales Cardiovascular: edema, regular rate and rhythm, systolic murmur Gastrointestinal: soft Results Result Diagram: 11/30/16 0539 11/27/16 0512 Results 24 hrs Laboratory Tests Test 11/29/16 12:19 11/29/16 17:38 11/29/16 21:13 11/30/16 01:22 Bedside Glucose 146 160 200 175 Test 11/30/16 05:39 11/30/16 07:56 White Blood Count 13.5 H Red Blood Count 2.45 L Hemoglobin 7.4 L Hematocrit 24.7 L Mean Corpuscular Volume 100.8 Mean Corpuscular Hemoglobin 30.2 Mean Corpuscular Hemoglobin Concent 30.0 L Red Cell Distribution Width 21.9 H Platelet Count 374 Mean Platelet Volume 9.8 Neutrophils % 69.2 Lymphocytes % 11.4 L Monocytes % 14.8 H Eosinophils % 2.4 Basophils % 0.4 Nucleated Red Blood Cells % 1.5 H Neutrophils # 9.4 H Lymphocytes # 1.5 Monocytes # 2.0 H Eosinophils # 0.3 Basophils # 0.1 Nucleated Red Blood Cells # 0.2 H Bedside Glucose 133 Medications Medications Current Medications Amlodipine Besylate (Norvasc) 5 mg DAILY PO Last administered on 11/30/16 09: 33; Admin Dose 5 MG; Start 11/11/16 at 09:30 Apixaban (Eliquis) 5 mg BID PO Last administered on 11/30/16 09:33; Admin Dose 5 MG; Start 11/11/16 at 09:30 Aspirin (Aspirin) 81 mg DAILY PO Last administered on 11/30/16 09:32; Admin Dose 81 MG; Start 11/11/16 at 09:30 Atorvastatin Calcium (Lipitor) 40 mg QHS PO Last administered on 11/29/16 21: 21; Admin Dose 40 MG; Start 11/11/16 at 21:00 Benzonatate (Tessalon) 100 mg Q6 PO Last administered on 11/30/16 05:11; Admin Dose 100 MG; Start 11/11/16 at 12:00 Carisoprodol (Soma) 350 mg Q8 PRN PO MUSCLE SPASMS Last administered on 09:36; Admin Dose 350 MG; Start 11/11/16 at 12:00 Cinacalcet (Sensipar) 30 mg DAILY PO Last administered on 11/30/16 09:31; Admin Dose 30 MG; Start 11/11/16 at 11:00 Furosemide (Lasix) 80 mg DAILY PO Last administered on 11/30/16 09:33; Admin Dose 80 MG; Start 11/11/16 at 09:30 Losartan Potassium (Cozaar) 50 mg BID PO Last administered on 11/30/16 09:34; Admin Dose 50 MG; Start 11/11/16 at 09:30 Metoprolol Succinate (Toprol Xl) 50 mg BID PO Last administered on 11/30/16 09 :32; Admin Dose 50 MG; Start 11/11/16 at 09:30 Montelukast Sodium (Singulair) 10 mg QAM PO Last administered on 11/30/16 09: 32; Admin Dose 10 MG; Start 11/11/16 at 11:00 Oxycodone/ Acetaminophen (Endocet (10/ 325)) 1 tab Q6 PRN PO PRN Last administered on 11/30/16 06:59; Admin Dose 1 TAB; Start 11/11/16 at 12:00 Pyridoxine HCl (Vitamin B6) 50 mg DAILY PO Last administered on 11/30/16 09:32 ; Admin Dose 50 MG; Start 11/11/16 at 09:30 Tiotropium [place] (Spiriva) 1 inh DAILY INH Last administered on 11/30/16 09: 34; Admin Dose 1 INH; Start 11/11/16 at 11:00 Ondansetron HCl (Zofran Tab) 4 mg Q6H PRN PO NAUSEA AND/OR VOMITING Last administered on 11/22/16 08:46; Admin Dose 4 MG; Start 11/11/16 at 10:00 Salmeterol Xinafoate/ Fluticasone (Advair 250/50 Diskus) 1 inh BID INH Last administered on 11/30/16 09:34; Admin Dose 1 INH; Start 11/11/16 at 11:00 Vancomycin HCl (Vanco Iv Per Pharmacy) PER PHARMACY DOSING NOTE XX ; Start 11/11 at 10:30; Stop 12/11/16 at 14:59 Albuterol (Ventolin Hfa) 2 puff Q4H PRN INH AOB Last administered on 11/25/16 12:06; Admin Dose 2 PUFF; Start 11/11/16 at 10:30 Epoetin Hang (Epogen (Esrd)) 10,000 units TuThSa@17 SC Last administered on 17:27; Admin Dose 10,000 UNITS; Start 11/11/16 at 17:00 Pantoprazole (Protonix Tab) 40 mg BID@,18 PO Last administered on 11/30/16 05:11; Admin Dose 40 MG; Start 11/12/16 at 18:00 Collagenase (Santyl) 1 applic DAILY TOP Last administered on 11/29/16 11:09; Admin Dose 1 APPLIC; Start 11/13/16 at 09:00 Diagnostic Test (Pha) (Accu-Chek) 1 ea 02 XX Last administered on 11/18/16 01: 42; Admin Dose 1 EA; Start 11/14/16 at 02:00 Insulin Detemir (Levemir) 35 unit QHS@20 SC Last administered on 11/29/16 21: 18; Admin Dose 35 UNIT; Start 11/14/16 at 20:00 Nicotine (Nicoderm 21 Mg/ 24hr) 1 patch DAILY TRANSDERM Last administered on 09:33; Admin Dose 1 PATCH; Start 11/14/16 at 20:00 Docusate Sodium (Colace) 100 mg Q12H PO Last administered on 11/29/16 11:00; Admin Dose 100 MG; Start 11/16/16 at 22:00 Miscellaneous Information 1 ea NOTE XX ; Start 11/17/16 at 11:30 Glucose (Glutose) 15 gm Q15M PRN PO DECREASED GLUCOSE; Start 11/17/16 at 11:30 Glucose (Glutose) 22.5 gm Q15M PRN PO DECREASED GLUCOSE; Start 11/17/16 at 11:30 Dextrose (D50w Syringe) 25 ml Q15M PRN IV DECREASED GLUCOSE; Start 11/17/16 at 11:30 Dextrose (D50w Syringe) 50 ml Q15M PRN IV DECREASED GLUCOSE; Start 11/17/16 at 11:30 Glucagon (Glucagen) 1 mg Q15M PRN IM DECREASED GLUCOSE; Start 11/17/16 at 11:30 Glucose (Glutose) 15 gm Q15M PRN BUCCAL DECREASED GLUCOSE; Start 11/17/16 at 11: 30 Polyethylene Glycol (Miralax) 17 gm BID PO Last administered on 11/28/16 20:52 ; Admin Dose 17 GM; Start 11/17/16 at 12:00 Bisacodyl (Dulcolax) 10 mg DAILY PRN PO CONSTIPATION; Start 11/17/16 at 11:30 Diltiazem HCl (Cardizem Cd) 120 mg BID PO Last administered on 11/30/16 09:34 ; Admin Dose 120 MG; Start 11/19/16 at 21:00 Zolpidem Tartrate (Ambien) 5 mg HS PRN PO INSOMNIA Last administered on 02:17; Admin Dose 5 MG; Start 11/19/16 at 21:30 Lorazepam (Ativan) 1 mg Q6H PRN IV AGITATION/ANXIETY Last administered on 05:11; Admin Dose 1 MG; Start 11/21/16 at 21:15 Guaifenesin/ Codeine Phosphate (Robitussin Ac Liquid Cup) 5 ml Q4H PRN PO COUGH Last administered on 11/29/16 11:54; Admin Dose 5 ML; Start 11/21/16 at 21 :30 Morphine Sulfate 2 mg 2 mg Q3H PRN IV for pain Last administered on 11/28/16 22:48; Admin Dose 2 MG; Start 11/24/16 at 18:30 Vancomycin HCl 250 ml @ 125 mls/hr Q96H IVPB Last administered on 11/29/16 15 :13; Admin Dose 125 MLS/HR; Start 11/25/16 at 15:00; Stop 12/11/16 at 14:59 Meropenem/Sodium Chloride (Merrem 500mg/50 ml(Pmx)) 50 ml @ 100 mls/hr Q24H IVPB Last administered on 11/29/16 17:40; Admin Dose 100 MLS/HR; Start at 16:00; Stop 12/11/16 at 15:59 BECKY GAMBLE MD Nov 30, 2016 11:19
[2016-11-30 14:31] VITALS: BP 93/59; RESP 18
--- NOTE | 2016-11-30 16:16 | PN ---
Date/Time of Note Date/Time of Note DATE: 11/30/16 TIME: 16:14 Assessment/Plan VTE Prophylaxis VTE Prophylaxis Intervention: other (eliquis) Lines/Catheters IV Catheter Type (from Nrsg): Peripheral IV Urinary Cath still in place: No Assessment/Plan Chief Complaint/Hosp Course Patient is a 61-year-old female with past history of end-stage renal disease, diabetes, hypertension and obesity presents to [facility] 4 grown falls at home found to have ulcers and pneumonia. Assessment Debility Left lower extremity thigh area ulcer, with wound VAC Diabetes type 2 End-stage renal disease, on dialysis Pneumonia Obesity Dyslipidemia Diabetic foot ulcers Bilateral lower extremity chronic venous stasis ulcers Chronic cellulitis Left hip wound Coronary artery disease Hypertension Atrial fibrillation Lower extremity edema Insomnia Plan -Patient has multiple medical conditions, continue vancomycin and meropenem for left hip wound, for total of 14 days per ID -continue home medications as able -Patient will likely need penitentiary, pending placement at this time, disposition issue with placement. -As needed medications for pain -Wound care ordered -Wound VAC care ordered. Problems: Subjective 24 Hr Interval Summary Free Text/Dictation no new changes or complaints Exam/Review of Systems Vital Signs Vitals Vital Signs Date Time Temp Pulse Resp B/P Pulse Ox O2 Delivery O2 Flow Rate FiO2 11/30/16 15:30 2.0 11/30/16 14:31 97.9 67 18 93/59 11/30/16 08:00 Nasal Cannula 11/30/16 07:59 91 Intake and Output 11/29/16 11/29/16 11/30/16 15:00 23:00 07:00 Intake Total 400 ml 940 ml 200 ml Output Total 2800 ml 3000 ml Balance -2400 ml -2060 ml 200 ml Exam Physical exam General: Patient is laying in bed and answers questions appropriately Mentation: Patient is alert and oriented 4, Head: Normocephalic atraumatic Eyes: EOMI, pupils reactive to light Neck: Supple, nontender, midline Respiratory:mildly course to auscultation bilaterally Cardiovascular: regular rate, no obvious murmurs Gastrointestinal: non-tender to palpation, bowel sounds heard. Neurological: Moves all extremities spontaneously Skin: multiple skin lesions on body. L hip wound with wound vac. multiple LE ulcerations. Results Result Diagram: 11/30/16 0539 11/27/16 0512 Results 24 hrs Laboratory Tests Test 11/29/16 17:38 11/29/16 21:13 11/30/16 01:22 11/30/16 05:39 Bedside Glucose 160 200 175 White Blood Count 13.5 H Red Blood Count 2.45 L Hemoglobin 7.4 L Hematocrit 24.7 L Mean Corpuscular Volume 100.8 Mean Corpuscular Hemoglobin 30.2 Mean Corpuscular Hemoglobin Concent 30.0 L Red Cell Distribution Width 21.9 H Platelet Count 374 Mean Platelet Volume 9.8 Neutrophils % 69.2 Lymphocytes % 11.4 L Monocytes % 14.8 H Eosinophils % 2.4 Basophils % 0.4 Nucleated Red Blood Cells % 1.5 H Neutrophils # 9.4 H Lymphocytes # 1.5 Monocytes # 2.0 H Eosinophils # 0.3 Basophils # 0.1 Nucleated Red Blood Cells # 0.2 H Test 11/30/16 07:56 11/30/16 12:18 Bedside Glucose 133 154 Medications Medications Current Medications Amlodipine Besylate (Norvasc) 5 mg DAILY PO Last administered on 11/30/16 09: 33; Admin Dose 5 MG; Start 11/11/16 at 09:30 Apixaban (Eliquis) 5 mg BID PO Last administered on 11/30/16 09:33; Admin Dose 5 MG; Start 11/11/16 at 09:30 Aspirin (Aspirin) 81 mg DAILY PO Last administered on 11/30/16 09:32; Admin Dose 81 MG; Start 11/11/16 at 09:30 Atorvastatin Calcium (Lipitor) 40 mg QHS PO Last administered on 11/29/16 21: 21; Admin Dose 40 MG; Start 11/11/16 at 21:00 Benzonatate (Tessalon) 100 mg Q6 PO Last administered on 11/30/16 12:22; Admin Dose 100 MG; Start 11/11/16 at 12:00 Carisoprodol (Soma) 350 mg Q8 PRN PO MUSCLE SPASMS Last administered on 09:36; Admin Dose 350 MG; Start 11/11/16 at 12:00 Cinacalcet (Sensipar) 30 mg DAILY PO Last administered on 11/30/16 09:31; Admin Dose 30 MG; Start 11/11/16 at 11:00 Furosemide (Lasix) 80 mg DAILY PO Last administered on 11/30/16 09:33; Admin Dose 80 MG; Start 11/11/16 at 09:30 Losartan Potassium (Cozaar) 50 mg BID PO Last administered on 11/30/16 09:34; Admin Dose 50 MG; Start 11/11/16 at 09:30 Metoprolol Succinate (Toprol Xl) 50 mg BID PO Last administered on 11/30/16 09 :32; Admin Dose 50 MG; Start 11/11/16 at 09:30 Montelukast Sodium (Singulair) 10 mg QAM PO Last administered on 11/30/16 09: 32; Admin Dose 10 MG; Start 11/11/16 at 11:00 Oxycodone/ Acetaminophen (Endocet ()) 1 tab Q6 PRN PO PRN Last administered on 11/30/16 06:59; Admin Dose 1 TAB; Start 11/11/16 at 12:00 Pyridoxine HCl (Vitamin B6) 50 mg DAILY PO Last administered on 11/30/16 09:32 ; Admin Dose 50 MG; Start 11/11/16 at 09:30 Tiotropium [place] (Spiriva) 1 inh DAILY INH Last administered on 11/30/16 09: 34; Admin Dose 1 INH; Start 11/11/16 at 11:00 Ondansetron HCl (Zofran Tab) 4 mg Q6H PRN PO NAUSEA AND/OR VOMITING Last administered on 11/22/16 08:46; Admin Dose 4 MG; Start 11/11/16 at 10:00 Salmeterol Xinafoate/ Fluticasone (Advair 250/50 Diskus) 1 inh BID INH Last administered on 11/30/16 09:34; Admin Dose 1 INH; Start 11/11/16 at 11:00 Vancomycin HCl (Vanco Iv Per Pharmacy) PER PHARMACY DOSING NOTE XX ; Start 11/11 at 10:30; Stop 12/11/16 at 14:59 Albuterol (Ventolin Hfa) 2 puff Q4H PRN INH AOB Last administered on 11/25/16 12:06; Admin Dose 2 PUFF; Start 11/11/16 at 10:30 Epoetin Hang (Epogen (Esrd)) 10,000 units TuThSa@17 SC Last administered on 17:27; Admin Dose 10,000 UNITS; Start 11/11/16 at 17:00 Pantoprazole (Protonix Tab) 40 mg BID@06,18 PO Last administered on 11/30/16 05:11; Admin Dose 40 MG; Start 11/12/16 at 18:00 Collagenase (Santyl) 1 applic DAILY TOP Last administered on 11/29/16 11:09; Admin Dose 1 APPLIC; Start 11/13/16 at 09:00 Diagnostic Test (Pha) (Accu-Chek) 1 ea 02 XX Last administered on 11/18/16 01: 42; Admin Dose 1 EA; Start 11/14/16 at 02:00 Insulin Detemir (Levemir) 35 unit QHS@20 SC Last administered on 11/29/16 21: 18; Admin Dose 35 UNIT; Start 11/14/16 at 20:00 Nicotine (Nicoderm 21 Mg/ 24hr) 1 patch DAILY TRANSDERM Last administered on 09:33; Admin Dose 1 PATCH; Start 11/14/16 at 20:00 Docusate Sodium (Colace) 100 mg Q12H PO Last administered on 11/29/16 11:00; Admin Dose 100 MG; Start 11/16/16 at 22:00 Miscellaneous Information 1 ea NOTE XX ; Start 11/17/16 at 11:30 Glucose (Glutose) 15 gm Q15M PRN PO DECREASED GLUCOSE; Start 11/17/16 at 11:30 Glucose (Glutose) 22.5 gm Q15M PRN PO DECREASED GLUCOSE; Start 11/17/16 at 11:30 Dextrose (D50w Syringe) 25 ml Q15M PRN IV DECREASED GLUCOSE; Start 11/17/16 at 11:30 Dextrose (D50w Syringe) 50 ml Q15M PRN IV DECREASED GLUCOSE; Start 11/17/16 at 11:30 Glucagon (Glucagen) 1 mg Q15M PRN IM DECREASED GLUCOSE; Start 11/17/16 at 11:30 Glucose (Glutose) 15 gm Q15M PRN BUCCAL DECREASED GLUCOSE; Start 11/17/16 at 11: 30 Polyethylene Glycol (Miralax) 17 gm BID PO Last administered on 11/28/16 20:52 ; Admin Dose 17 GM; Start 11/17/16 at 12:00 Bisacodyl (Dulcolax) 10 mg DAILY PRN PO CONSTIPATION; Start 11/17/16 at 11:30 Diltiazem HCl (Cardizem Cd) 120 mg BID PO Last administered on 11/30/16 09:34 ; Admin Dose 120 MG; Start 11/19/16 at 21:00 Zolpidem Tartrate (Ambien) 5 mg HS PRN PO INSOMNIA Last administered on 02:17; Admin Dose 5 MG; Start 11/19/16 at 21:30 Lorazepam (Ativan) 1 mg Q6H PRN IV AGITATION/ANXIETY Last administered on 05:11; Admin Dose 1 MG; Start 11/21/16 at 21:15 Guaifenesin/ Codeine Phosphate (Robitussin Ac Liquid Cup) 5 ml Q4H PRN PO COUGH Last administered on 11/29/16 11:54; Admin Dose 5 ML; Start 11/21/16 at 21 :30 Morphine Sulfate 2 mg 2 mg Q3H PRN IV for pain Last administered on 11/28/16 22:48; Admin Dose 2 MG; Start 11/24/16 at 18:30 Vancomycin HCl 250 ml @ 125 mls/hr Q96H IVPB Last administered on 11/29/16 15 :13; Admin Dose 125 MLS/HR; Start 11/25/16 at 15:00; Stop 12/11/16 at 14:59 Meropenem/Sodium Chloride (Merrem 500mg/50 ml(Pmx)) 50 ml @ 100 mls/hr Q24H IVPB Last administered on 11/29/16 17:40; Admin Dose 100 MLS/HR; Start at 16:00; Stop 12/11/16 at 15:59 CHIP MUNSON Nov 30, 2016 16:16
[2016-11-30] MEDS: MEROPENEM 500MG/50 ML (PMX) 50 ML IVPB SCH (17:16)
[2016-11-30] MEDS: EPOETIN 10000 UNITS/1 ML INJ (ESRD) SC SCH (17:16)
--- NOTE | 2016-11-30 18:30 | CONS ---
Date/Time of Note Date/Time of Note DATE: 11/30/16 TIME: 18:29 Assessment/Plan Assessment/Plan Chief Complaint/Hosp Course No acute changes, alert, looks comfortable, no fevers Indwelling's: Left upper extremity AV fistula Antimicrobials: Vancomycin, Merrem Physical examination: Morbidly obese well-developed, ill-appearing elderly woman in no distress. Head atraumatic, normocephalic. Sclerae nonicteric. Neck is obese. Chest rise symmetrical, breath sounds diminished basis. Heart S1-S2. Abdomen obese soft bowel tones present. Extremities with bilateral edema, patient has multiple lesions on her lower extremities erythema resolving, she has a left upper thigh wound VAC. ASSESSMENT: 1. Acute encephalopathy, likely toxic metabolic 2. Bilateral lower extremities chronic venous stasis with chronic cellulitis and left hip wound, s/p debridement and wound vac application 10/19/16. 3. End-stage renal disease, on hemodialysis. 4. Morbid obesity. 5. Atrial fibrillation. 6. Healthcare associated pneumonia, possibly aspiration 7. Allergy: Penicillin, Cipro Plan: Remains stable, continue antibiotic for 7 more days, continue anti- aspiration measures, encourage incentive spirometry, local wound care as per surgical team. staff Problems: Consultation Date/Type/Reason Admit Date/Time Nov 11, 2016 at 06:40 Initial Consult Date 11/12/16 Type of Consultation: id Exam/Review of Systems Vital Signs Vitals Vital Signs Date Time Temp Pulse Resp B/P Pulse Ox O2 Delivery O2 Flow Rate FiO2 11/30/16 15:30 2.0 11/30/16 14:31 97.9 67 18 93/59 11/30/16 08:00 Nasal Cannula 11/30/16 07:59 91 Intake and Output 11/29/16 11/29/16 11/30/16 15:00 23:00 07:00 Intake Total 400 ml 940 ml 200 ml Output Total 2800 ml 3000 ml Balance -2400 ml -2060 ml 200 ml Results Result Diagram: 11/30/16 0539 11/27/16 0512 Results 24 hrs Laboratory Tests Test 11/29/16 21:13 11/30/16 01:22 11/30/16 05:39 11/30/16 07:56 Bedside Glucose 200 175 133 White Blood Count 13.5 H Red Blood Count 2.45 L Hemoglobin 7.4 L Hematocrit 24.7 L Mean Corpuscular Volume 100.8 Mean Corpuscular Hemoglobin 30.2 Mean Corpuscular Hemoglobin Concent 30.0 L Red Cell Distribution Width 21.9 H Platelet Count 374 Mean Platelet Volume 9.8 Neutrophils % 69.2 Lymphocytes % 11.4 L Monocytes % 14.8 H Eosinophils % 2.4 Basophils % 0.4 Nucleated Red Blood Cells % 1.5 H Neutrophils # 9.4 H Lymphocytes # 1.5 Monocytes # 2.0 H Eosinophils # 0.3 Basophils # 0.1 Nucleated Red Blood Cells # 0.2 H Test 11/30/16 12:18 11/30/16 17:27 Bedside Glucose 154 218 Medications Medications Current Medications Amlodipine Besylate (Norvasc) 5 mg DAILY PO Last administered on 11/30/16 09: 33; Admin Dose 5 MG; Start 11/11/16 at 09:30 Apixaban (Eliquis) 5 mg BID PO Last administered on 11/30/16 09:33; Admin Dose 5 MG; Start 11/11/16 at 09:30 Aspirin (Aspirin) 81 mg DAILY PO Last administered on 11/30/16 09:32; Admin Dose 81 MG; Start 11/11/16 at 09:30 Atorvastatin Calcium (Lipitor) 40 mg QHS PO Last administered on 11/29/16 21: 21; Admin Dose 40 MG; Start 11/11/16 at 21:00 Benzonatate (Tessalon) 100 mg Q6 PO Last administered on 11/30/16 17:15; Admin Dose 100 MG; Start 11/11/16 at 12:00 Carisoprodol (Soma) 350 mg Q8 PRN PO MUSCLE SPASMS Last administered on 09:36; Admin Dose 350 MG; Start 11/11/16 at 12:00 Cinacalcet (Sensipar) 30 mg DAILY PO Last administered on 11/30/16 09:31; Admin Dose 30 MG; Start 11/11/16 at 11:00 Furosemide (Lasix) 80 mg DAILY PO Last administered on 11/30/16 09:33; Admin Dose 80 MG; Start 11/11/16 at 09:30 Losartan Potassium (Cozaar) 50 mg BID PO Last administered on 11/30/16 09:34; Admin Dose 50 MG; Start 11/11/16 at 09:30 Metoprolol Succinate (Toprol Xl) 50 mg BID PO Last administered on 11/30/16 09 :32; Admin Dose 50 MG; Start 11/11/16 at 09:30 Montelukast Sodium (Singulair) 10 mg QAM PO Last administered on 11/30/16 09: 32; Admin Dose 10 MG; Start 11/11/16 at 11:00 Oxycodone/ Acetaminophen (Endocet (10/ 325)) 1 tab Q6 PRN PO PRN Last administered on 11/30/16 06:59; Admin Dose 1 TAB; Start 11/11/16 at 12:00 Pyridoxine HCl (Vitamin B6) 50 mg DAILY PO Last administered on 11/30/16 09:32 ; Admin Dose 50 MG; Start 11/11/16 at 09:30 Tiotropium [place] (Spiriva) 1 inh DAILY INH Last administered on 11/30/16 09: 34; Admin Dose 1 INH; Start 11/11/16 at 11:00 Ondansetron HCl (Zofran Tab) 4 mg Q6H PRN PO NAUSEA AND/OR VOMITING Last administered on 11/22/16 08:46; Admin Dose 4 MG; Start 11/11/16 at 10:00 Salmeterol Xinafoate/ Fluticasone (Advair 250/50 Diskus) 1 inh BID INH Last administered on 11/30/16 09:34; Admin Dose 1 INH; Start 11/11/16 at 11:00 Vancomycin HCl (Vanco Iv Per Pharmacy) PER PHARMACY DOSING NOTE XX ; Start 11/11 at 10:30; Stop 12/11/16 at 14:59 Albuterol (Ventolin Hfa) 2 puff Q4H PRN INH AOB Last administered on 11/25/16 12:06; Admin Dose 2 PUFF; Start 11/11/16 at 10:30 Epoetin Hang (Epogen (Esrd)) 10,000 units TuThSa@17 SC Last administered on 17:16; Admin Dose 10,000 UNITS; Start 11/11/16 at 17:00 Pantoprazole (Protonix Tab) 40 mg BID@ PO Last administered on 11/30/16 17:15; Admin Dose 40 MG; Start 11/12/16 at 18:00 Collagenase (Santyl) 1 applic DAILY TOP Last administered on 11/29/16 11:09; Admin Dose 1 APPLIC; Start 11/13/16 at 09:00 Diagnostic Test (Pha) (Accu-Chek) 1 ea 02 XX Last administered on 11/18/16 01: 42; Admin Dose 1 EA; Start 11/14/16 at 02:00 Insulin Detemir (Levemir) 35 unit QHS@20 SC Last administered on 11/29/16 21: 18; Admin Dose 35 UNIT; Start 11/14/16 at 20:00 Nicotine (Nicoderm 21 Mg/ 24hr) 1 patch DAILY TRANSDERM Last administered on 09:33; Admin Dose 1 PATCH; Start 11/14/16 at 20:00 Docusate Sodium (Colace) 100 mg Q12H PO Last administered on 11/29/16 11:00; Admin Dose 100 MG; Start 11/16/16 at 22:00 Miscellaneous Information 1 ea NOTE XX ; Start 11/17/16 at 11:30 Glucose (Glutose) 15 gm Q15M PRN PO DECREASED GLUCOSE; Start 11/17/16 at 11:30 Glucose (Glutose) 22.5 gm Q15M PRN PO DECREASED GLUCOSE; Start 11/17/16 at 11:30 Dextrose (D50w Syringe) 25 ml Q15M PRN IV DECREASED GLUCOSE; Start 11/17/16 at 11:30 Dextrose (D50w Syringe) 50 ml Q15M PRN IV DECREASED GLUCOSE; Start 11/17/16 at 11:30 Glucagon (Glucagen) 1 mg Q15M PRN IM DECREASED GLUCOSE; Start 11/17/16 at 11:30 Glucose (Glutose) 15 gm Q15M PRN BUCCAL DECREASED GLUCOSE; Start 11/17/16 at 11: 30 Polyethylene Glycol (Miralax) 17 gm BID PO Last administered on 11/28/16 20:52 ; Admin Dose 17 GM; Start 11/17/16 at 12:00 Bisacodyl (Dulcolax) 10 mg DAILY PRN PO CONSTIPATION; Start 11/17/16 at 11:30 Diltiazem HCl (Cardizem Cd) 120 mg BID PO Last administered on 11/30/16 09:34 ; Admin Dose 120 MG; Start 11/19/16 at 21:00 Zolpidem Tartrate (Ambien) 5 mg HS PRN PO INSOMNIA Last administered on 02:17; Admin Dose 5 MG; Start 11/19/16 at 21:30 Lorazepam (Ativan) 1 mg Q6H PRN IV AGITATION/ANXIETY Last administered on 17:16; Admin Dose 1 MG; Start 11/21/16 at 21:15 Guaifenesin/ Codeine Phosphate (Robitussin Ac Liquid Cup) 5 ml Q4H PRN PO COUGH Last administered on 11/29/16 11:54; Admin Dose 5 ML; Start 11/21/16 at 21 :30 Morphine Sulfate 2 mg 2 mg Q3H PRN IV for pain Last administered on 11/28/16 22:48; Admin Dose 2 MG; Start 11/24/16 at 18:30 Vancomycin HCl 250 ml @ 125 mls/hr Q96H IVPB Last administered on 11/29/16 15 :13; Admin Dose 125 MLS/HR; Start 11/25/16 at 15:00; Stop 12/11/16 at 14:59 Meropenem/Sodium Chloride (Merrem 500mg/50 ml(Pmx)) 50 ml @ 100 mls/hr Q24H IVPB Last administered on 11/30/16 17:16; Admin Dose 100 MLS/HR; Start at 16:00; Stop 12/11/16 at 15:59 TODD RAMIRES NP Nov 30, 2016 18:30
[2016-11-30 20:07] VITALS: BP 111/57; RESP 16
[2016-11-30] MEDS: INSULIN DETEMIR [LEVEMIR] 3ML CART SC SCH (20:28)
[2016-11-30] MEDS: ATORVASTATIN 40 MG TAB PO SCH (20:36)
[2016-12-01] VITALS (14 sets, daily range): BP systolic 100–144; BP diastolic 49–69; PULSE 75–79; RESP 16–20
[2016-12-01] MEDS: BENZONATATE 100 MG CAP PO SCH ×5 (00:27→23:10)
[2016-12-01] MEDS: ACCU-CHEK XX SCH (02:00)
[2016-12-01] MEDS: PANTOPRAZOLE (EC) 40 MG TAB PO SCH ×2 (05:36→17:27)
[2016-12-01] MEDS: METOCLOPRAMIDE 5 MG TAB PO SCH ×3 (08:46→17:27)
[2016-12-01] MEDS: CALCIUM ACETATE 667 MG CAP PO SCH ×3 (08:47→17:27)
[2016-12-01] MEDS: SALMETEROL/FLUTICASONE 250/50 INHA INH SCH ×2 (08:48→20:36)
[2016-12-01] MEDS: INSULIN ASPART [NOVOLOG] 3 ML PEN SC SCH ×4 (08:48→20:42)
[2016-12-01] MEDS: LOSARTAN 50 MG TAB PO SCH ×2 (08:49→20:37)
[2016-12-01] MEDS: DILTIAZEM (CD) 120 MG CAP PO SCH ×2 (08:49→20:36)
[2016-12-01] MEDS: ASPIRIN 81 MG TAB PO SCH (08:49)
[2016-12-01] MEDS: FUROSEMIDE 40 MG TAB PO SCH (08:50)
[2016-12-01] MEDS: POLYETHYLENE GLYCOL 17 GM PACKET PO SCH ×3 (08:50→20:37)
[2016-12-01] MEDS: APIXABAN 5 MG TABLET PO SCH ×2 (08:50→20:36)
[2016-12-01] MEDS: MONTELUKAST 10 MG TAB PO SCH (08:51)
[2016-12-01] MEDS: PYRIDOXINE 50 MG TAB PO SCH (08:51)
[2016-12-01] MEDS: AMLODIPINE 5 MG TAB PO SCH (08:51)
[2016-12-01] MEDS: COLLAGENASE 30 GM TUBE TOP SCH (08:52)
[2016-12-01] MEDS: CINACALCET 30 MG TAB PO SCH (08:53)
[2016-12-01] MEDS: NICOTINE (21 MG/24 HR) PATCH TRANSDERM SCH (08:53)
[2016-12-01] MEDS: METOPROLOL (XL) 50 MG TAB PO SCH ×2 (08:54→20:36)
[2016-12-01] MEDS: DOCUSATE SODIUM 100 MG CAP PO SCH ×2 (09:02→22:00)
[2016-12-01] MEDS: TIOTROPIUM 18 MCG CAPSULE INHA DEV INH SCH (09:59)
[2016-12-01] MEDS: OXYCODONE/ACETAMINOPHEN (10/325) TAB PO PRN (10:04)
--- NOTE | 2016-12-01 13:35 | CONS ---
Date/Time of Note Date/Time of Note DATE: 12/01/16 TIME: 13:34 Assessment/Plan Assessment/Plan Chief Complaint/Hosp Course No acute changes, looks comfortable, no fevers Indwelling's: Left upper extremity AV fistula Antimicrobials: Vancomycin, Merrem Physical examination: Morbidly obese well-developed, ill-appearing elderly woman in no distress. Head atraumatic, normocephalic. Sclerae nonicteric. Neck is obese. Chest rise symmetrical, breath sounds diminished basis. Heart S1-S2. Abdomen obese soft bowel tones present. Extremities with bilateral edema, patient has multiple lesions on her lower extremities erythema resolving, she has a left upper thigh wound VAC. ASSESSMENT: 1. Acute encephalopathy, likely toxic metabolic, improving 2. Bilateral lower extremities chronic venous stasis with chronic cellulitis and left hip wound, s/p debridement and wound vac application 10/19/16. 3. End-stage renal disease, on hemodialysis. 4. Morbid obesity. 5. Atrial fibrillation. 6. Healthcare associated pneumonia, possibly aspiration 7. Allergy: Penicillin, Cipro Plan: Remains stable, continue antibiotic for 6 more days, continue anti- aspiration measures, encourage incentive spirometry, local wound care as per surgical team. staff Problems: Consultation Date/Type/Reason Admit Date/Time Nov 11, 2016 at 06:40 Initial Consult Date 11/12/16 Type of Consultation: id Exam/Review of Systems Vital Signs Vitals Vital Signs Date Time Temp Pulse Resp B/P Pulse Ox O2 Delivery O2 Flow Rate FiO2 12/01/16 12:47 2.0 12/01/16 08:45 97.9 60 20 111/53 90 11/30/16 20:00 Nasal Cannula Intake and Output 11/30/16 11/30/16 12/01/16 15:00 23:00 07:00 Intake Total 810 ml 450 ml Balance 810 ml 450 ml Results Result Diagram: 11/30/16 0539 11/27/16 0512 Results 24 hrs Laboratory Tests Test 11/30/16 17:27 11/30/16 20:23 12/01/16 02:14 12/01/16 08:11 Bedside Glucose 218 251 H 193 142 Test 12/01/16 11:58 Bedside Glucose 194 Medications Medications Current Medications Amlodipine Besylate (Norvasc) 5 mg DAILY PO Last administered on 11/30/16t 09: 33; Admin Dose 5 MG; Start 6/29/17 at 09:30 Apixaban (Eliquis) 5 mg BID PO Last administered on 11/30/16 20:35; Admin Dose 5 MG; Start 11/11/16 at 09:30 Aspirin (Aspirin) 81 mg DAILY PO Last administered on 11/30/16 09:32; Admin Dose 81 MG; Start 11/11/16 at 09:30 Atorvastatin Calcium (Lipitor) 40 mg QHS PO Last administered on 11/30/16 20: 36; Admin Dose 40 MG; Start 11/11/16 at 21:00 Benzonatate (Tessalon) 100 mg Q6 PO Last administered on 12/01/16 12:04; Admin Dose 100 MG; Start 11/11/16 at 12:00 Carisoprodol (Soma) 350 mg Q8 PRN PO MUSCLE SPASMS Last administered on 09:36; Admin Dose 350 MG; Start 11/11/16 at 12:00 Cinacalcet (Sensipar) 30 mg DAILY PO Last administered on 12/01/16 08:53; Admin Dose 30 MG; Start 11/11/16 at 11:00 Furosemide (Lasix) 80 mg DAILY PO Last administered on 11/30/16 09:33; Admin Dose 80 MG; Start 11/11/16 at 09:30 Losartan Potassium (Cozaar) 50 mg BID PO Last administered on 11/30/16 20:36; Admin Dose 50 MG; Start 11/11/16 at 09:30 Metoprolol Succinate (Toprol Xl) 50 mg BID PO Last administered on 11/30/16 20 :38; Admin Dose 50 MG; Start 11/11/16 at 09:30 Montelukast Sodium (Singulair) 10 mg QAM PO Last administered on 12/01/16 08: 51; Admin Dose 10 MG; Start 11/11/16 at 11:00 Oxycodone/ Acetaminophen (Endocet (10/ 325)) 1 tab Q6 PRN PO PRN Last administered on 12/01/16 10:04; Admin Dose 1 TAB; Start 11/11/16 at 12:00 Pyridoxine HCl (Vitamin B6) 50 mg DAILY PO Last administered on 12/01/16 08:51 ; Admin Dose 50 MG; Start 11/11/16 at 09:30 Tiotropium [place] (Spiriva) 1 inh DAILY INH Last administered on 12/01/16 09: 59; Admin Dose 1 INH; Start 11/11/16 at 11:00 Ondansetron HCl (Zofran Tab) 4 mg Q6H PRN PO NAUSEA AND/OR VOMITING Last administered on 11/22/16 08:46; Admin Dose 4 MG; Start 11/11/16 at 10:00 Salmeterol Xinafoate/ Fluticasone (Advair 250/50 Diskus) 1 inh BID INH Last administered on 12/01/16 08:48; Admin Dose 1 INH; Start 11/11/16 at 11:00 Vancomycin HCl (Vanco Iv Per Pharmacy) PER PHARMACY DOSING NOTE XX ; Start 11/11 at 10:30; Stop 12/11/16 at 14:59 Albuterol (Ventolin Hfa) 2 puff Q4H PRN INH AOB Last administered on 11/25/16 12:06; Admin Dose 2 PUFF; Start 11/11/16 at 10:30 Epoetin Hang (Epogen (Esrd)) 10,000 units TuThSa@17 SC Last administered on 17:16; Admin Dose 10,000 UNITS; Start 11/11/16 at 17:00 Pantoprazole (Protonix Tab) 40 mg BID@06,18 PO Last administered on 12/01/16 05:36; Admin Dose 40 MG; Start 11/12/16 at 18:00 Collagenase (Santyl) 1 applic DAILY TOP Last administered on 11/29/16 11:09; Admin Dose 1 APPLIC; Start 11/13/16 at 09:00 Diagnostic Test (Pha) (Accu-Chek) 1 ea 02 XX Last administered on 11/18/16 01: 42; Admin Dose 1 EA; Start 11/14/16 at 02:00 Insulin Detemir (Levemir) 35 unit QHS@20 SC Last administered on 11/30/16 20: 28; Admin Dose 35 UNIT; Start 11/14/16 at 20:00 Nicotine (Nicoderm 21 Mg/ 24hr) 1 patch DAILY TRANSDERM Last administered on 08:53; Admin Dose 1 PATCH; Start 11/14/16 at 20:00 Docusate Sodium (Colace) 100 mg Q12H PO Last administered on 11/30/16 22:03; Admin Dose 100 MG; Start 11/16/16 at 22:00 Miscellaneous Information 1 ea NOTE XX ; Start 11/17/16 at 11:30 Glucose (Glutose) 15 gm Q15M PRN PO DECREASED GLUCOSE; Start 11/17/16 at 11:30 Glucose (Glutose) 22.5 gm Q15M PRN PO DECREASED GLUCOSE; Start 11/17/16 at 11:30 Dextrose (D50w Syringe) 25 ml Q15M PRN IV DECREASED GLUCOSE; Start 11/17/16 at 11:30 Dextrose (D50w Syringe) 50 ml Q15M PRN IV DECREASED GLUCOSE; Start 11/17/16 at 11:30 Glucagon (Glucagen) 1 mg Q15M PRN IM DECREASED GLUCOSE; Start 11/17/16 at 11:30 Glucose (Glutose) 15 gm Q15M PRN BUCCAL DECREASED GLUCOSE; Start 11/17/16 at 11: 30 Polyethylene Glycol (Miralax) 17 gm BID PO Last administered on 11/28/16 20:52 ; Admin Dose 17 GM; Start 11/17/16 at 12:00 Bisacodyl (Dulcolax) 10 mg DAILY PRN PO CONSTIPATION; Start 11/17/16 at 11:30 Diltiazem HCl (Cardizem Cd) 120 mg BID PO Last administered on 11/30/16 20:35 ; Admin Dose 120 MG; Start 11/19/16 at 21:00 Zolpidem Tartrate (Ambien) 5 mg HS PRN PO INSOMNIA Last administered on 02:17; Admin Dose 5 MG; Start 11/19/16 at 21:30 Lorazepam (Ativan) 1 mg Q6H PRN IV AGITATION/ANXIETY Last administered on 23:29; Admin Dose 1 MG; Start 11/21/16 at 21:15 Guaifenesin/ Codeine Phosphate (Robitussin Ac Liquid Cup) 5 ml Q4H PRN PO COUGH Last administered on 11/29/16 11:54; Admin Dose 5 ML; Start 11/21/16 at 21 :30 Morphine Sulfate 2 mg 2 mg Q3H PRN IV for pain Last administered on 11/28/16 22:48; Admin Dose 2 MG; Start 11/24/16 at 18:30 Vancomycin HCl 250 ml @ 125 mls/hr Q96H IVPB Last administered on 11/29/16 15 :13; Admin Dose 125 MLS/HR; Start 11/25/16 at 15:00; Stop 12/11/16 at 14:59 Meropenem/Sodium Chloride (Merrem 500mg/50 ml(Pmx)) 50 ml @ 100 mls/hr Q24H IVPB Last administered on 11/30/16 17:16; Admin Dose 100 MLS/HR; Start at 16:00; Stop 12/11/16 at 15:59 TODD RAMIRES NP Dec 01, 2016 13:35
--- NOTE | 2016-12-01 14:45 | PN ---
Date/Time of Note Date/Time of Note DATE: 12/01/16 TIME: 14:43 Assessment/Plan VTE Prophylaxis VTE Prophylaxis Intervention: other (eliquis) Lines/Catheters IV Catheter Type (from Nrs): Saline Lock Urinary Cath still in place: No Assessment/Plan Chief Complaint/Hosp Course Patient is a 61-year-old female with past history of end-stage renal disease, diabetes, hypertension and obesity presents to [facility] 4 grown falls at home found to have ulcers and pneumonia. Assessment Debility Left lower extremity thigh area ulcer, with wound VAC Diabetes type 2 End-stage renal disease, on dialysis Pneumonia Obesity Dyslipidemia Diabetic foot ulcers Bilateral lower extremity chronic venous stasis ulcers Chronic cellulitis Left hip wound Coronary artery disease Hypertension Atrial fibrillation Lower extremity edema Insomnia Plan -Patient has multiple medical conditions, continue vancomycin and meropenem for left hip wound, for total of 14 days per ID, 6 more days -continue home medications as able -Patient will likely need alf, pending placement at this time, disposition issue with placement. -As needed medications for pain -Wound care ordered -Wound VAC care ordered. Problems: Subjective 24 Hr Interval Summary Free Text/Dictation getting dialysis, no new complaints Exam/Review of Systems Vital Signs Vitals Vital Signs Date Time Temp Pulse Resp B/P Pulse Ox O2 Delivery O2 Flow Rate FiO2 12/01/16 14:20 98.7 71 18 111/59 90 12/01/16 12:47 2.0 11/30/16 20:00 Nasal Cannula Intake and Output 11/30/16 11/30/16 12/01/16 15:00 23:00 07:00 Intake Total 810 ml 450 ml Balance 810 ml 450 ml Exam Physical exam General: Patient is laying in bed and answers questions appropriately Mentation: Patient is alert and oriented 4, Head: Normocephalic atraumatic Eyes: EOMI, pupils reactive to light Neck: Supple, nontender, midline Respiratory:mildly course to auscultation bilaterally Cardiovascular: regular rate, no obvious murmurs Gastrointestinal: non-tender to palpation, bowel sounds heard. Neurological: Moves all extremities spontaneously Skin: multiple skin lesions on body. L hip wound with wound vac. multiple LE ulcerations. Results Result Diagram: 11/30/16 0539 11/27/16 0512 Results 24 hrs Laboratory Tests Test 11/30/16 17:27 11/30/16 20:23 12/01/16 02:14 12/01/16 08:11 Bedside Glucose 218 251 H 193 142 Test 12/01/16 11:58 Bedside Glucose 194 Medications Medications Current Medications Amlodipine Besylate (Norvasc) 5 mg DAILY PO Last administered on 11/30/16 09: 33; Admin Dose 5 MG; Start 11/11/16 at 09:30 Apixaban (Eliquis) 5 mg BID PO Last administered on 11/30/16 20:35; Admin Dose 5 MG; Start 11/11/16 at 09:30 Aspirin (Aspirin) 81 mg DAILY PO Last administered on 11/30/16 09:32; Admin Dose 81 MG; Start 11/11/16 at 09:30 Atorvastatin Calcium (Lipitor) 40 mg QHS PO Last administered on 11/30/16 20: 36; Admin Dose 40 MG; Start 11/11/16 at 21:00 Benzonatate (Tessalon) 100 mg Q6 PO Last administered on 12/01/16 12:04; Admin Dose 100 MG; Start 11/11/16 at 12:00 Carisoprodol (Soma) 350 mg Q8 PRN PO MUSCLE SPASMS Last administered on 09:36; Admin Dose 350 MG; Start 11/11/16 at 12:00 Cinacalcet (Sensipar) 30 mg DAILY PO Last administered on 12/01/16 08:53; Admin Dose 30 MG; Start 11/11/16 at 11:00 Furosemide (Lasix) 80 mg DAILY PO Last administered on 11/30/16 09:33; Admin Dose 80 MG; Start 11/11/16 at 09:30 Losartan Potassium (Cozaar) 50 mg BID PO Last administered on 11/30/16 20:36; Admin Dose 50 MG; Start 11/11/16 at 09:30 Metoprolol Succinate (Toprol Xl) 50 mg BID PO Last administered on 11/30/16 20 :38; Admin Dose 50 MG; Start 11/11/16 at 09:30 Montelukast Sodium (Singulair) 10 mg QAM PO Last administered on 12/01/16 08: 51; Admin Dose 10 MG; Start 11/11/16 at 11:00 Oxycodone/ Acetaminophen (Endocet (10/ 325)) 1 tab Q6 PRN PO PRN Last administered on 12/01/16 10:04; Admin Dose 1 TAB; Start 11/11/16 at 12:00 Pyridoxine HCl (Vitamin B6) 50 mg DAILY PO Last administered on 12/01/16 08:51 ; Admin Dose 50 MG; Start 11/11/16 at 09:30 Tiotropium [place] (Spiriva) 1 inh DAILY INH Last administered on 12/01/16 09: 59; Admin Dose 1 INH; Start 11/11/16 at 11:00 Ondansetron HCl (Zofran Tab) 4 mg Q6H PRN PO NAUSEA AND/OR VOMITING Last administered on 11/22/16 08:46; Admin Dose 4 MG; Start 11/11/16 at 10:00 Salmeterol Xinafoate/ Fluticasone (Advair 250/50 Diskus) 1 inh BID INH Last administered on 12/01/16 08:48; Admin Dose 1 INH; Start 11/11/16 at 11:00 Vancomycin HCl (Vanco Iv Per Pharmacy) PER PHARMACY DOSING NOTE XX ; Start 11/11 at 10:30; Stop 12/11/16 at 14:59 Albuterol (Ventolin Hfa) 2 puff Q4H PRN INH AOB Last administered on 11/25/16 12:06; Admin Dose 2 PUFF; Start 11/11/16 at 10:30 Epoetin Hang (Epogen (Esrd)) 10,000 units TuThSa@17 SC Last administered on 17:16; Admin Dose 10,000 UNITS; Start 11/11/16 at 17:00 Pantoprazole (Protonix Tab) 40 mg BID@06,18 PO Last administered on 12/01/16 05:36; Admin Dose 40 MG; Start 11/12/16 at 18:00 Collagenase (Santyl) 1 applic DAILY TOP Last administered on 11/29/16 11:09; Admin Dose 1 APPLIC; Start 11/13/16 at 09:00 Diagnostic Test (Pha) (Accu-Chek) 1 ea 02 XX Last administered on 11/18/16 01: 42; Admin Dose 1 EA; Start 11/14/16 at 02:00 Insulin Detemir (Levemir) 35 unit QHS@20 SC Last administered on 11/30/16 20: 28; Admin Dose 35 UNIT; Start 11/14/16 at 20:00 Nicotine (Nicoderm 21 Mg/ 24hr) 1 patch DAILY TRANSDERM Last administered on 08:53; Admin Dose 1 PATCH; Start 11/14/16 at 20:00 Docusate Sodium (Colace) 100 mg Q12H PO Last administered on 11/30/16 22:03; Admin Dose 100 MG; Start 11/16/16 at 22:00 Miscellaneous Information 1 ea NOTE XX ; Start 11/17/16 at 11:30 Glucose (Glutose) 15 gm Q15M PRN PO DECREASED GLUCOSE; Start 11/17/16 at 11:30 Glucose (Glutose) 22.5 gm Q15M PRN PO DECREASED GLUCOSE; Start 11/17/16 at 11:30 Dextrose (D50w Syringe) 25 ml Q15M PRN IV DECREASED GLUCOSE; Start 11/17/16 at 11:30 Dextrose (D50w Syringe) 50 ml Q15M PRN IV DECREASED GLUCOSE; Start 11/17/16 at 11:30 Glucagon (Glucagen) 1 mg Q15M PRN IM DECREASED GLUCOSE; Start 11/17/16 at 11:30 Glucose (Glutose) 15 gm Q15M PRN BUCCAL DECREASED GLUCOSE; Start 11/17/16 at 11: 30 Polyethylene Glycol (Miralax) 17 gm BID PO Last administered on 11/28/16 20:52 ; Admin Dose 17 GM; Start 11/17/16 at 12:00 Bisacodyl (Dulcolax) 10 mg DAILY PRN PO CONSTIPATION; Start 11/17/16 at 11:30 Diltiazem HCl (Cardizem Cd) 120 mg BID PO Last administered on 11/30/16 20:35 ; Admin Dose 120 MG; Start 11/19/16 at 21:00 Zolpidem Tartrate (Ambien) 5 mg HS PRN PO INSOMNIA Last administered on 02:17; Admin Dose 5 MG; Start 11/19/16 at 21:30 Lorazepam (Ativan) 1 mg Q6H PRN IV AGITATION/ANXIETY Last administered on 23:29; Admin Dose 1 MG; Start 11/21/16 at 21:15 Guaifenesin/ Codeine Phosphate (Robitussin Ac Liquid Cup) 5 ml Q4H PRN PO COUGH Last administered on 11/29/16 11:54; Admin Dose 5 ML; Start 11/21/16 at 21 :30 Morphine Sulfate 2 mg 2 mg Q3H PRN IV for pain Last administered on 11/28/16 22:48; Admin Dose 2 MG; Start 11/24/16 at 18:30 Vancomycin HCl 250 ml @ 125 mls/hr Q96H IVPB Last administered on 11/29/16 15 :13; Admin Dose 125 MLS/HR; Start 11/25/16 at 15:00; Stop 12/11/16 at 14:59 Meropenem/Sodium Chloride (Merrem 500mg/50 ml(Pmx)) 50 ml @ 100 mls/hr Q24H IVPB Last administered on 11/30/16 17:16; Admin Dose 100 MLS/HR; Start at 16:00; Stop 12/11/16 at 15:59 CHIP MUNSON Dec 01, 2016 14:44
[2016-12-01] MEDS: MEROPENEM 500MG/50 ML (PMX) 50 ML IVPB SCH (15:30)
[2016-12-01] MEDS: LORAZEPAM 2 MG INJ IV PRN (18:11)
[2016-12-01] MEDS: ATORVASTATIN 40 MG TAB PO SCH (20:36)
[2016-12-01] MEDS: INSULIN DETEMIR [LEVEMIR] 3ML CART SC SCH (20:42)
[2016-12-02] MEDS: GUAIFENESIN/CODEINE 5ML CUP PO PRN ×2 (00:43→11:29)
[2016-12-02 02:00] VITALS: BP 144/88; RESP 18
[2016-12-02] MEDS: ACCU-CHEK XX SCH (02:00)
[2016-12-02] MEDS: LORAZEPAM 2 MG INJ IV PRN ×2 (02:19→20:39)
[2016-12-02] MEDS: PANTOPRAZOLE (EC) 40 MG TAB PO SCH (05:14)
[2016-12-02] MEDS: BENZONATATE 100 MG CAP PO SCH ×3 (05:14→18:08)
[2016-12-02 05:50] LABS: ADD SCAN DIFF NO
[2016-12-02 05:56] LABS: ABNORMAL IP MESSAGE 1; BASOPHIL # 0.1 10^3/ul (0.0-0.1); BASOPHILS % 0.8 % (0.0-2.0); EOSINOPHILS # 0.3 10^3/ul (0.0-0.5); EOSINOPHILS % 2.2 % (0.0-7.0); ERYTHROBLAST% (NRBC) (M) 1.1 /100WBC (0.0-0.0); HEMATOCRIT 28.2 % (37.0-47.0); HEMOGLOBIN 8.5 g/dl (12.0-16.0); LYMPHOCYTES # 1.2 10^3/ul (0.8-2.9); LYMPHOCYTES % 10.9 % (15.0-51.0); MEAN CORPUSCULAR HGB CONC 30.1 g/dl (32.0-37.0); MEAN CORPUSCULAR VOLUME 96.2 fl (82.0-101.0); MEAN PLATELET VOLUME 9.7 fl (7.4-10.4); MONOCYTES % 17.7 % (0.0-11.0); NEUTROPHIL # 7.6 10^3/ul (1.6-7.5); NEUTROPHILS % 66.6 % (39.0-77.0); NUCLEATED RED BLOOD CELLS # 0.1 10^3/ul (0.0-0.0); PLATELET COUNT 326 10^3/UL (140-415); RED BLOOD COUNT 2.93 10^6/ul (4.20-5.40); RED CELL DISTRIBUTION WIDTH 22.5 % (11.5-14.5); WHITE BLOOD COUNT 11.4 10^3/ul (4.8-10.8)
[2016-12-02 06:54] LABS: CALCIUM 10.1 mg/dl (8.4-10.2); CREATININE 3.22 mg/dl (0.44-1.00); MAGNESIUM 2.7 mg/dl (1.7-2.5); POTASSIUM 3.1 mmol/L (3.5-5.1)
[2016-12-02] MEDS: CALCIUM ACETATE 667 MG CAP PO SCH ×3 (08:10→18:09)
[2016-12-02] MEDS: INSULIN ASPART [NOVOLOG] 3 ML PEN SC SCH ×4 (08:10→20:46)
[2016-12-02] MEDS: METOCLOPRAMIDE 5 MG TAB PO SCH ×3 (08:10→18:09)
[2016-12-02 08:43] VITALS: BP 147/67; RESP 19
[2016-12-02] MEDS: LOSARTAN 50 MG TAB PO SCH ×4 (09:00→22:02)
[2016-12-02] MEDS: SALMETEROL/FLUTICASONE 250/50 INHA INH SCH ×2 (10:08→20:44)
[2016-12-02] MEDS: CINACALCET 30 MG TAB PO SCH (10:09)
[2016-12-02] MEDS: DOCUSATE SODIUM 100 MG CAP PO SCH ×2 (10:09→22:00)
[2016-12-02] MEDS: FUROSEMIDE 40 MG TAB PO SCH (10:09)
[2016-12-02] MEDS: DILTIAZEM (CD) 120 MG CAP PO SCH ×2 (10:09→22:01)
[2016-12-02] MEDS: NICOTINE (21 MG/24 HR) PATCH TRANSDERM SCH (10:09)
[2016-12-02] MEDS: ASPIRIN 81 MG TAB PO SCH (10:10)
[2016-12-02] MEDS: AMLODIPINE 5 MG TAB PO SCH (10:10)
[2016-12-02] MEDS: PYRIDOXINE 50 MG TAB PO SCH (10:10)
[2016-12-02] MEDS: MONTELUKAST 10 MG TAB PO SCH (10:10)
[2016-12-02] MEDS: METOPROLOL (XL) 50 MG TAB PO SCH ×2 (10:11→21:00)
[2016-12-02] MEDS: POLYETHYLENE GLYCOL 17 GM PACKET PO SCH ×3 (10:12→20:52)
[2016-12-02] MEDS: COLLAGENASE 30 GM TUBE TOP SCH (10:13)
[2016-12-02] MEDS: TIOTROPIUM 18 MCG CAPSULE INHA DEV INH SCH (10:19)
[2016-12-02 10:22] VITALS: BP 125/59
[2016-12-02] MEDS ORDERED: PANTOPRAZOLE IV 80 MG in SOD CHLORIDE 0.9% 100 ML IV SCH (11:00)
[2016-12-02] MEDS ORDERED: PANTOPRAZOLE IV 80 MG in SOD CHLORIDE 0.9% 100 ML IVPB ONE (11:00)
[2016-12-02 12:38] LABS: HEMATOCRIT 28.6 % (37.0-47.0); HEMOGLOBIN 8.8 g/dl (12.0-16.0)
[2016-12-02] MEDS: OXYCODONE/ACETAMINOPHEN (10/325) TAB PO PRN (12:39)
[2016-12-02] MEDS ORDERED: POTASSIUM CHLORIDE (SR) 20 MEQ TAB PO STA ×2 (13:17)
[2016-12-02 14:42] VITALS: BP 132/71; RESP 21
--- NOTE | 2016-12-02 15:34 | CONS ---
Date/Time of Note Date/Time of Note DATE: 12/02/16 TIME: 15:34 Assessment/Plan Assessment/Plan Chief Complaint/Hosp Course No acute changes, awake, looks comfortable, no fevers Indwelling's: Left upper extremity AV fistula Antimicrobials: Vancomycin, Merrem Physical examination: Morbidly obese well-developed, ill-appearing elderly woman in no distress. Head atraumatic, normocephalic. Sclerae nonicteric. Neck is obese. Chest rise symmetrical, breath sounds diminished basis. Heart S1-S2. Abdomen obese soft bowel tones present. Extremities with bilateral edema, patient has multiple lesions on her lower extremities erythema resolving, she has a left upper thigh wound VAC. ASSESSMENT: 1. Acute encephalopathy, likely toxic metabolic, improving 2. Bilateral lower extremities chronic venous stasis with chronic cellulitis and left hip wound, s/p debridement and wound vac application 10/19/16. 3. End-stage renal disease, on hemodialysis. 4. Morbid obesity. 5. Atrial fibrillation. 6. Healthcare associated pneumonia, possibly aspiration 7. Allergy: Penicillin, Cipro Plan: Remains stable, continue antibiotic for 5 more days, continue anti- aspiration measures, encourage incentive spirometry, local wound care as per surgical team. staff Problems: Consultation Date/Type/Reason Admit Date/Time Nov 11, 2016 at 06:40 Initial Consult Date 11/12/16 Type of Consultation: id Exam/Review of Systems Vital Signs Vitals Vital Signs Date Time Temp Pulse Resp B/P Pulse Ox O2 Delivery O2 Flow Rate FiO2 12/02/16 14:42 98.6 89 21 132/71 94 12/02/16 13:53 Nasal Cannula 2.0 Intake and Output 12/01/16 12/01/16 12/02/16 15:00 23:00 07:00 Intake Total 1000 ml 1190 ml 600 ml Output Total 3500 ml 0 ml Balance -2500 ml 1190 ml 600 ml Results Result Diagram: 12/02/16 1212 12/02/16 0509 Results 24 hrs Laboratory Tests Test 12/01/16 17:24 12/01/16 20:34 12/02/16 01:54 12/02/16 02:25 Bedside Glucose 194 190 253 H Stool Occult Blood POSITIVE Test 12/02/16 05:09 12/02/16 06:18 12/02/16 08:07 12/02/16 12:04 White Blood Count 11.4 H Red Blood Count 2.93 L Hemoglobin 8.5 L Hematocrit 28.2 L Mean Corpuscular Volume 96.2 Mean Corpuscular Hemoglobin 29.0 Mean Corpuscular Hemoglobin Concent 30.1 L Red Cell Distribution Width 22.5 H Platelet Count 326 Mean Platelet Volume 9.7 Neutrophils % 66.6 Lymphocytes % 10.9 L Monocytes % 17.7 H Eosinophils % 2.2 Basophils % 0.8 Nucleated Red Blood Cells % 1.1 H Neutrophils # 7.6 H Lymphocytes # 1.2 Monocytes # 2.0 H Eosinophils # 0.3 Basophils # 0.1 Nucleated Red Blood Cells # 0.1 H Sodium Level 146 H Potassium Level 3.1 L Chloride Level 97 Carbon Dioxide Level 32 H Anion Gap 20 H Blood Urea Nitrogen 40 H Creatinine 3.22 H Glucose Level 222 H Calcium Level 10.1 Phosphorus Level 3.0 Magnesium Level 2.7 H Lab Scanned Report BLOOD TRANSFUSION Bedside Glucose 205 239 H Test 12/02/16 12:12 Hemoglobin 8.8 L Hematocrit 28.6 L Medications Medications Current Medications Amlodipine Besylate (Norvasc) 5 mg DAILY PO Last administered on 12/02/16 10: 10; Admin Dose 5 MG; Start 11/11/16 at 09:30 Apixaban (Eliquis) 5 mg BID PO Last administered on 12/01/16 20:36; Admin Dose 5 MG; Start 11/11/16 at 09:30; Status Future Hold Aspirin (Aspirin) 81 mg DAILY PO Last administered on 12/02/16 10:10; Admin Dose 81 MG; Start 11/11/16 at 09:30 Atorvastatin Calcium (Lipitor) 40 mg QHS PO Last administered on 12/01/16 20: 36; Admin Dose 40 MG; Start 11/11/16 at 21:00 Benzonatate (Tessalon) 100 mg Q6 PO Last administered on 12/02/16 12:40; Admin Dose 100 MG; Start 11/11/16 at 12:00 Carisoprodol (Soma) 350 mg Q8 PRN PO MUSCLE SPASMS Last administered on 09:36; Admin Dose 350 MG; Start 11/11/16 at 12:00 Cinacalcet (Sensipar) 30 mg DAILY PO Last administered on 12/02/16 10:09; Admin Dose 30 MG; Start 11/11/16 at 11:00 Furosemide (Lasix) 80 mg DAILY PO Last administered on 12/02/16 10:09; Admin Dose 80 MG; Start 11/11/16 at 09:30 Losartan Potassium (Cozaar) 50 mg BID PO Last administered on 12/02/16 12:43; Admin Dose 50 MG; Start 11/11/16 at 09:30 Metoprolol Succinate (Toprol Xl) 50 mg BID PO Last administered on 12/02/16 10 :11; Admin Dose 50 MG; Start 11/11/16 at 09:30 Montelukast Sodium (Singulair) 10 mg QAM PO Last administered on 12/02/16 10: 10; Admin Dose 10 MG; Start 11/11/16 at 11:00 Oxycodone/ Acetaminophen (Endocet (10 325)) 1 tab Q6 PRN PO PRN Last administered on 12/02/16 12:39; Admin Dose 1 TAB; Start 11/11/16 at 12:00 Pyridoxine HCl (Vitamin B6) 50 mg DAILY PO Last administered on 12/02/16 10:10 ; Admin Dose 50 MG; Start 11/11/16 at 09:30 Tiotropium [place] (Spiriva) 1 inh DAILY INH Last administered on 12/02/16 10: 19; Admin Dose 1 INH; Start 11/11/16 at 11:00 Ondansetron HCl (Zofran Tab) 4 mg Q6H PRN PO NAUSEA AND/OR VOMITING Last administered on 11/22/16 08:46; Admin Dose 4 MG; Start 11/11/16 at 10:00 Salmeterol Xinafoate/ Fluticasone (Advair 250/50 Diskus) 1 inh BID INH Last administered on 12/02/16 10:08; Admin Dose 1 INH; Start 11/11/16 at 11:00 Vancomycin HCl (Vanco Iv Per Pharmacy) PER PHARMACY DOSING NOTE XX ; Start 11/11 at 10:30; Stop 12/11/16 at 14:59 Albuterol (Ventolin Hfa) 2 puff Q4H PRN INH AOB Last administered on 11/25/16 12:06; Admin Dose 2 PUFF; Start 11/11/16 at 10:30 Epoetin Hang (Epogen (Esrd)) 10,000 units TuThSa@17 SC Last administered on 17:16; Admin Dose 10,000 UNITS; Start 11/11/16 at 17:00 Pantoprazole (Protonix Tab) 40 mg BID@06,18 PO Last administered on 12/02/16 05:14; Admin Dose 40 MG; Start 11/12/16 at 18:00; Status Future Hold Collagenase (Santyl) 1 applic DAILY TOP Last administered on 12/02/16 10:13; Admin Dose 1 APPLIC; Start 11/13/16 at 09:00 Diagnostic Test (Pha) (Accu-Chek) 1 ea 02 XX Last administered on 11/18/16 01: 42; Admin Dose 1 EA; Start 11/14/16 at 02:00 Insulin Detemir (Levemir) 35 unit QHS@20 SC Last administered on 12/01/16 20: 42; Admin Dose 35 UNIT; Start 11/14/16 at 20:00 Nicotine (Nicoderm 21 Mg/ 24hr) 1 patch DAILY TRANSDERM Last administered on 10:09; Admin Dose 1 PATCH; Start 11/14/16 at 20:00 Docusate Sodium (Colace) 100 mg Q12H PO Last administered on 12/02/16 10:09; Admin Dose 100 MG; Start 11/16/16 at 22:00 Miscellaneous Information 1 ea NOTE XX ; Start 11/17/16 at 11:30 Glucose (Glutose) 15 gm Q15M PRN PO DECREASED GLUCOSE; Start 11/17/16 at 11:30 Glucose (Glutose) 22.5 gm Q15M PRN PO DECREASED GLUCOSE; Start 11/17/16 at 11:30 Dextrose (D50w Syringe) 25 ml Q15M PRN IV DECREASED GLUCOSE; Start 11/17/16 at 11:30 Dextrose (D50w Syringe) 50 ml Q15M PRN IV DECREASED GLUCOSE; Start 11/17/16 at 11:30 Glucagon (Glucagen) 1 mg Q15M PRN IM DECREASED GLUCOSE; Start 11/17/16 at 11:30 Glucose (Glutose) 15 gm Q15M PRN BUCCAL DECREASED GLUCOSE; Start 11/17/16 at 11: 30 Polyethylene Glycol (Miralax) 17 gm BID PO Last administered on 12/02/16 10:12 ; Admin Dose 17 GM; Start 11/17/16 at 12:00 Bisacodyl (Dulcolax) 10 mg DAILY PRN PO CONSTIPATION; Start 11/17/16 at 11:30 Diltiazem HCl (Cardizem Cd) 120 mg BID PO Last administered on 12/02/16 10:09 ; Admin Dose 120 MG; Start 11/19/16 at 21:00 Zolpidem Tartrate (Ambien) 5 mg HS PRN PO INSOMNIA Last administered on 02:17; Admin Dose 5 MG; Start 11/19/16 at 21:30 Lorazepam (Ativan) 1 mg Q6H PRN IV AGITATION/ANXIETY Last administered on 02:19; Admin Dose 1 MG; Start 11/21/16 at 21:15 Guaifenesin/ Codeine Phosphate (Robitussin Ac Liquid Cup) 5 ml Q4H PRN PO COUGH Last administered on 12/02/16 11:29; Admin Dose 5 ML; Start 11/21/16 at 21 :30 Morphine Sulfate 2 mg 2 mg Q3H PRN IV for pain Last administered on 11/28/16 22:48; Admin Dose 2 MG; Start 11/24/16 at 18:30 Vancomycin HCl 250 ml @ 125 mls/hr Q96H IVPB Last administered on 11/29/16 15 :13; Admin Dose 125 MLS/HR; Start 11/25/16 at 15:00; Stop 12/11/16 at 14:59 Meropenem/Sodium Chloride 50 ml @ 100 mls/hr Q24H IVPB Last administered on 15:30; Admin Dose 100 MLS/HR; Start 11/27/16 at 16:00; Stop 12/11/16 at 15:59 Pantoprazole/ Sodium Chloride (Protonix Iv/NS) 100 ml @ 10 mls/hr Q10H IV Last administered on 12/02/16 12:39; Admin Dose 10 MLS/HR; Start 12/02/16 at 11 :00 TODD RAMIRES NP Dec 02, 2016 15:34
--- NOTE | 2016-12-02 15:40 | CONS ---
Date/Time of Note Date/Time of Note DATE: 12/02/16 TIME: 15:26 Assessment/Plan Assessment/Plan Additional Assessment/Plan Assessment * Anemia Upper GI bleed vs iron deficiency vs others * ESRD on hemodialysis MWF * Morbid obesity * Diabetes mellitus * Hypertension * Cellulitis left lower extremity * Pneumonia Plan * EGD tomorrow risks and benefit explained to patient agreed with the planned procedure * continue present management * Protonix 40 mg BID Consultation Date/Type/Reason Admit Date/Time Nov 11, 2016 at 06:40 Date of Consultation: Dec 02, 2016 Type of Consultation: gastroenterology Reason for Consultation occult blood positive Referring Provider: ERICK MATOS Hx of Present Illness 61 year old female with history of ESRD,Diabetes,cellulitis,hypertension, pneumonia presently admitted since last October referred to us for evaluation of anemia and positive stool occult blood.Patient denies any hematemesis,hematochezia nor nausea and vomiting.Present hemoglobin today is 8.8 but she received a unit of blood yesterday during dialysis.I have spoke to patient regarding our plan to do EGD and possible colonoscopy but patient refused colonoscopy ,prefers EGD.We have discuss risk and benefits and agreed with the planned procedure Constitutional: improved, no complaints Eyes: no complaints ENT: no complaints Respiratory: no complaints Cardiovascular: no complaints Gastrointestinal: no complaints Genitourinary: no complaints Musculoskeletal: no complaints Psychological: no complaints Past Medical History Medical History: coronary artery disease, GI bleed, high cholesterol, hypertension Past Surgical History Past Surgical Hx: other Social History Alcohol Use: none Smoking Status: Former smoker Drug Use: none Exam/Review of Systems Vital Signs Vitals Vital Signs Date Time Temp Pulse Resp B/P Pulse Ox O2 Delivery O2 Flow Rate FiO2 12/02/16 14:42 98.6 89 21 132/71 94 12/02/16 13:53 Nasal Cannula 2.0 Intake and Output 12/01/16 12/01/16 12/02/16 15:00 23:00 07:00 Intake Total 1000 ml 1190 ml 600 ml Output Total 3500 ml 0 ml Balance -2500 ml 1190 ml 600 ml Exam Constitutional: alert Head: atraumatic, normocephalic Neck: non-tender, supple Respiratory: clear to auscultation, normal air movement Cardiovascular: nl pulses, regular rate and rhythm Gastrointestinal: non-tender, soft Musculoskeletal: muscle weakness Extremities: normal pulses Neurological: nl speech, nl strength Skin: nl turgor Lymph: nl lymph nodes Results Result Diagram: 12/02/16 1212 12/02/16 0509 Results 24 hrs Laboratory Tests Test 12/01/16 17:24 12/01/16 20:34 12/02/16 01:54 12/02/16 02:25 Bedside Glucose 194 190 253 H Stool Occult Blood POSITIVE Test 12/02/16 05:09 12/02/16 06:18 12/02/16 08:07 12/02/16 12:04 White Blood Count 11.4 H Red Blood Count 2.93 L Hemoglobin 8.5 L Hematocrit 28.2 L Mean Corpuscular Volume 96.2 Mean Corpuscular Hemoglobin 29.0 Mean Corpuscular Hemoglobin Concent 30.1 L Red Cell Distribution Width 22.5 H Platelet Count 326 Mean Platelet Volume 9.7 Neutrophils % 66.6 Lymphocytes % 10.9 L Monocytes % 17.7 H Eosinophils % 2.2 Basophils % 0.8 Nucleated Red Blood Cells % 1.1 H Neutrophils # 7.6 H Lymphocytes # 1.2 Monocytes # 2.0 H Eosinophils # 0.3 Basophils # 0.1 Nucleated Red Blood Cells # 0.1 H Sodium Level 146 H Potassium Level 3.1 L Chloride Level 97 Carbon Dioxide Level 32 H Anion Gap 20 H Blood Urea Nitrogen 40 H Creatinine 3.22 H Glucose Level 222 H Calcium Level 10.1 Phosphorus Level 3.0 Magnesium Level 2.7 H Lab Scanned Report BLOOD TRANSFUSION Bedside Glucose 205 239 H Test 12/02/16 12:12 Hemoglobin 8.8 L Hematocrit 28.6 L Medications Medications Current Medications Amlodipine Besylate (Norvasc) 5 mg DAILY PO Last administered on 12/02/16 10: 10; Admin Dose 5 MG; Start 11/11/16 at 09:30 Apixaban (Eliquis) 5 mg BID PO Last administered on 12/01/16 20:36; Admin Dose 5 MG; Start 11/11/16 at 09:30; Status Future Hold Aspirin (Aspirin) 81 mg DAILY PO Last administered on 12/02/16 10:10; Admin Dose 81 MG; Start 11/11/16 at 09:30 Atorvastatin Calcium (Lipitor) 40 mg QHS PO Last administered on 12/01/16 20: 36; Admin Dose 40 MG; Start 11/11/16 at 21:00 Benzonatate (Tessalon) 100 mg Q6 PO Last administered on 12/02/16 12:40; Admin Dose 100 MG; Start 11/11/16 at 12:00 Carisoprodol (Soma) 350 mg Q8 PRN PO MUSCLE SPASMS Last administered on 09:36; Admin Dose 350 MG; Start 11/11/16 at 12:00 Cinacalcet (Sensipar) 30 mg DAILY PO Last administered on 12/02/16 10:09; Admin Dose 30 MG; Start 11/11/16 at 11:00 Furosemide (Lasix) 80 mg DAILY PO Last administered on 12/02/16 10:09; Admin Dose 80 MG; Start 11/11/16 at 09:30 Losartan Potassium (Cozaar) 50 mg BID PO Last administered on 12/02/16 12:43; Admin Dose 50 MG; Start 11/11/16 at 09:30 Metoprolol Succinate (Toprol Xl) 50 mg BID PO Last administered on 12/02/16 10 :11; Admin Dose 50 MG; Start 11/11/16 at 09:30 Montelukast Sodium (Singulair) 10 mg QAM PO Last administered on 12/02/16 10: 10; Admin Dose 10 MG; Start 11/11/16 at 11:00 Oxycodone/ Acetaminophen (Endocet (10/ 325)) 1 tab Q6 PRN PO PRN Last administered on 12/02/16 12:39; Admin Dose 1 TAB; Start 11/11/16 at 12:00 Pyridoxine HCl (Vitamin B6) 50 mg DAILY PO Last administered on 12/02/16 10:10 ; Admin Dose 50 MG; Start 11/11/16 at 09:30 Tiotropium [place] (Spiriva) 1 inh DAILY INH Last administered on 12/02/16 10: 19; Admin Dose 1 INH; Start 11/11/16 at 11:00 Ondansetron HCl (Zofran Tab) 4 mg Q6H PRN PO NAUSEA AND/OR VOMITING Last administered on 11/22/16 08:46; Admin Dose 4 MG; Start 11/11/16 at 10:00 Salmeterol Xinafoate/ Fluticasone (Advair 250/50 Diskus) 1 inh BID INH Last administered on 12/02/16 10:08; Admin Dose 1 INH; Start 11/11/16 at 11:00 Vancomycin HCl (Vanco Iv Per Pharmacy) PER PHARMACY DOSING NOTE XX ; Start 11/11 at 10:30; Stop 12/11/16 at 14:59 Albuterol (Ventolin Hfa) 2 puff Q4H PRN INH AOB Last administered on 11/25/16 12:06; Admin Dose 2 PUFF; Start 11/11/16 at 10:30 Epoetin Hang (Epogen (Esrd)) 10,000 units TuThSa@17 SC Last administered on 17:16; Admin Dose 10,000 UNITS; Start 11/11/16 at 17:00 Pantoprazole (Protonix Tab) 40 mg BID@,18 PO Last administered on 12/02/16 05:14; Admin Dose 40 MG; Start 11/12/16 at 18:00; Status Future Hold Collagenase (Santyl) 1 applic DAILY TOP Last administered on 12/02/16 10:13; Admin Dose 1 APPLIC; Start 11/13/16 at 09:00 Diagnostic Test (Pha) (Accu-Chek) 1 ea 02 XX Last administered on 11/18/16 01: 42; Admin Dose 1 EA; Start 11/14/16 at 02:00 Insulin Detemir (Levemir) 35 unit QHS@20 SC Last administered on 12/01/16 20: 42; Admin Dose 35 UNIT; Start 11/14/16 at 20:00 Nicotine (Nicoderm 21 Mg/ 24hr) 1 patch DAILY TRANSDERM Last administered on 10:09; Admin Dose 1 PATCH; Start 11/14/16 at 20:00 Docusate Sodium (Colace) 100 mg Q12H PO Last administered on 12/02/16 10:09; Admin Dose 100 MG; Start 11/16/16 at 22:00 Miscellaneous Information 1 ea NOTE XX ; Start 11/17/16 at 11:30 Glucose (Glutose) 15 gm Q15M PRN PO DECREASED GLUCOSE; Start 11/17/16 at 11:30 Glucose (Glutose) 22.5 gm Q15M PRN PO DECREASED GLUCOSE; Start 11/17/16 at 11:30 Dextrose (D50w Syringe) 25 ml Q15M PRN IV DECREASED GLUCOSE; Start 11/17/16 at 11:30 Dextrose (D50w Syringe) 50 ml Q15M PRN IV DECREASED GLUCOSE; Start 11/17/16 at 11:30 Glucagon (Glucagen) 1 mg Q15M PRN IM DECREASED GLUCOSE; Start 11/17/16 at 11:30 Glucose (Glutose) 15 gm Q15M PRN BUCCAL DECREASED GLUCOSE; Start 11/17/16 at 11: 30 Polyethylene Glycol (Miralax) 17 gm BID PO Last administered on 12/02/16 10:12 ; Admin Dose 17 GM; Start 11/17/16 at 12:00 Bisacodyl (Dulcolax) 10 mg DAILY PRN PO CONSTIPATION; Start 11/17/16 at 11:30 Diltiazem HCl (Cardizem Cd) 120 mg BID PO Last administered on 12/02/16 10:09 ; Admin Dose 120 MG; Start 11/19/16 at 21:00 Zolpidem Tartrate (Ambien) 5 mg HS PRN PO INSOMNIA Last administered on 02:17; Admin Dose 5 MG; Start 11/19/16 at 21:30 Lorazepam (Ativan) 1 mg Q6H PRN IV AGITATION/ANXIETY Last administered on 02:19; Admin Dose 1 MG; Start 11/21/16 at 21:15 Guaifenesin/ Codeine Phosphate (Robitussin Ac Liquid Cup) 5 ml Q4H PRN PO COUGH Last administered on 12/02/16 11:29; Admin Dose 5 ML; Start 11/21/16 at 21 :30 Morphine Sulfate 2 mg 2 mg Q3H PRN IV for pain Last administered on 11/28/16 22:48; Admin Dose 2 MG; Start 11/24/16 at 18:30 Vancomycin HCl 250 ml @ 125 mls/hr Q96H IVPB Last administered on 11/29/16 15 :13; Admin Dose 125 MLS/HR; Start 11/25/16 at 15:00; Stop 12/11/16 at 14:59 Meropenem/Sodium Chloride 50 ml @ 100 mls/hr Q24H IVPB Last administered on 15:30; Admin Dose 100 MLS/HR; Start 11/27/16 at 16:00; Stop 12/11/16 at 15:59 Pantoprazole/ Sodium Chloride (Protonix Iv/NS) 100 ml @ 10 mls/hr Q10H IV Last administered on 12/02/16t 12:39; Admin Dose 10 MLS/HR; Start 12/02/16 at 11 :00 GUICHO ROMO MD Dec 02, 2016 15:37
[2016-12-02] MEDS: MEROPENEM 500MG/50 ML (PMX) 50 ML IVPB SCH (16:06)
--- NOTE | 2016-12-02 16:52 | PN ---
Date/Time of Note Date/Time of Note DATE: 12/02/16 TIME: 16:49 Assessment/Plan VTE Prophylaxis VTE Prophylaxis Intervention: SCD's Lines/Catheters IV Catheter Type (from Nrsg): [place] [employer] line still needed: No Urinary Cath still in place: No Assessment/Plan Chief Complaint/Hosp Course Patient is a 61-year-old female with past history of end-stage renal disease, diabetes, hypertension and obesity presents to [facility] 4 grown falls at home found to have ulcers and pneumonia. Assessment Debility Left lower extremity thigh area ulcer, with wound VAC GI bleed Diabetes type 2 End-stage renal disease, on dialysis Pneumonia Obesity Dyslipidemia Diabetic foot ulcers Bilateral lower extremity chronic venous stasis ulcers Chronic cellulitis Left hip wound Coronary artery disease Hypertension Atrial fibrillation Lower extremity edema Insomnia Plan -protonix bid per GI, EGD planned for tmrw for gi bleed. -Patient has multiple medical conditions, continue vancomycin and meropenem for left hip wound, for total of 14 days per ID, 5 more days -continue home medications as able -Patient will likely need mcfp, pending placement at this time, disposition issue with placement. -As needed medications for pain -Wound care ordered -Wound VAC care ordered. Problems: Subjective 24 Hr Interval Summary Free Text/Dictation no acute complaints except black stool overnight Exam/Review of Systems Vital Signs Vitals Vital Signs Date Time Temp Pulse Resp B/P Pulse Ox O2 Delivery O2 Flow Rate FiO2 12/02/16 14:42 98.6 89 21 132/71 94 12/02/16 13:53 Nasal Cannula 2.0 Intake and Output 12/01/16 12/01/16 12/02/16 15:00 23:00 07:00 Intake Total 1000 ml 1190 ml 600 ml Output Total 3500 ml 0 ml Balance -2500 ml 1190 ml 600 ml Exam Physical exam General: Patient is laying in bed and answers questions appropriately Mentation: Patient is alert and oriented 4, Head: Normocephalic atraumatic Eyes: EOMI, pupils reactive to light Neck: Supple, nontender, midline Respiratory:mildly course to auscultation bilaterally Cardiovascular: regular rate, no obvious murmurs Gastrointestinal: non-tender to palpation, bowel sounds heard. Neurological: Moves all extremities spontaneously Skin: multiple skin lesions on body. L hip wound with wound vac. multiple LE ulcerations Results Result Diagram: 12/02/16 1212 12/02/16 0509 Results 24 hrs Laboratory Tests Test 12/01/16 17:24 12/01/16 20:34 12/02/16 01:54 12/02/16 02:25 Bedside Glucose 194 190 253 H Stool Occult Blood POSITIVE Test 12/02/16 05:09 12/02/16 06:18 12/02/16 08:07 12/02/16 12:04 White Blood Count 11.4 H Red Blood Count 2.93 L Hemoglobin 8.5 L Hematocrit 28.2 L Mean Corpuscular Volume 96.2 Mean Corpuscular Hemoglobin 29.0 Mean Corpuscular Hemoglobin Concent 30.1 L Red Cell Distribution Width 22.5 H Platelet Count 326 Mean Platelet Volume 9.7 Neutrophils % 66.6 Lymphocytes % 10.9 L Monocytes % 17.7 H Eosinophils % 2.2 Basophils % 0.8 Nucleated Red Blood Cells % 1.1 H Neutrophils # 7.6 H Lymphocytes # 1.2 Monocytes # 2.0 H Eosinophils # 0.3 Basophils # 0.1 Nucleated Red Blood Cells # 0.1 H Sodium Level 146 H Potassium Level 3.1 L Chloride Level 97 Carbon Dioxide Level 32 H Anion Gap 20 H Blood Urea Nitrogen 40 H Creatinine 3.22 H Glucose Level 222 H Calcium Level 10.1 Phosphorus Level 3.0 Magnesium Level 2.7 H Lab Scanned Report BLOOD TRANSFUSION Bedside Glucose 205 239 H Test 12/02/16 12:12 Hemoglobin 8.8 L Hematocrit 28.6 L Medications Medications Current Medications Amlodipine Besylate (Norvasc) 5 mg DAILY PO Last administered on 12/02/16 10: 10; Admin Dose 5 MG; Start 11/11/16 at 09:30 Apixaban (Eliquis) 5 mg BID PO Last administered on 12/01/16 20:36; Admin Dose 5 MG; Start 11/11/16 at 09:30; Status Future Hold Aspirin (Aspirin) 81 mg DAILY PO Last administered on 12/02/16 10:10; Admin Dose 81 MG; Start 11/11/16 at 09:30 Atorvastatin Calcium (Lipitor) 40 mg QHS PO Last administered on 12/01/16 20: 36; Admin Dose 40 MG; Start 11/11/16 at 21:00 Benzonatate (Tessalon) 100 mg Q6 PO Last administered on 12/02/16 12:40; Admin Dose 100 MG; Start 11/11/16 at 12:00 Carisoprodol (Soma) 350 mg Q8 PRN PO MUSCLE SPASMS Last administered on 09:36; Admin Dose 350 MG; Start 11/11/16 at 12:00 Cinacalcet (Sensipar) 30 mg DAILY PO Last administered on 12/02/16 10:09; Admin Dose 30 MG; Start 11/11/16 at 11:00 Furosemide (Lasix) 80 mg DAILY PO Last administered on 12/02/16 10:09; Admin Dose 80 MG; Start 11/11/16 at 09:30 Losartan Potassium (Cozaar) 50 mg BID PO Last administered on 12/02/16 12:43; Admin Dose 50 MG; Start 11/11/16 at 09:30 Metoprolol Succinate (Toprol Xl) 50 mg BID PO Last administered on 12/02/16 10 :11; Admin Dose 50 MG; Start 11/11/16 at 09:30 Montelukast Sodium (Singulair) 10 mg QAM PO Last administered on 12/02/16 10: 10; Admin Dose 10 MG; Start 11/11/16 at 11:00 Oxycodone/ Acetaminophen (Endocet (10/ 325)) 1 tab Q6 PRN PO PRN Last administered on 12/02/16 12:39; Admin Dose 1 TAB; Start 11/11/16 at 12:00 Pyridoxine HCl (Vitamin B6) 50 mg DAILY PO Last administered on 12/02/16 10:10 ; Admin Dose 50 MG; Start 11/11/16 at 09:30 Tiotropium [place] (Spiriva) 1 inh DAILY INH Last administered on 12/02/16 10: 19; Admin Dose 1 INH; Start 11/11/16 at 11:00 Ondansetron HCl (Zofran Tab) 4 mg Q6H PRN PO NAUSEA AND/OR VOMITING Last administered on 11/22/16 08:46; Admin Dose 4 MG; Start 11/11/16 at 10:00 Salmeterol Xinafoate/ Fluticasone (Advair 250/50 Diskus) 1 inh BID INH Last administered on 12/02/16 10:08; Admin Dose 1 INH; Start 11/11/16 at 11:00 Vancomycin HCl (Vanco Iv Per Pharmacy) PER PHARMACY DOSING NOTE XX ; Start 11/11 at 10:30; Stop 12/11/16 at 14:59 Albuterol (Ventolin Hfa) 2 puff Q4H PRN INH AOB Last administered on 11/25/16 12:06; Admin Dose 2 PUFF; Start 11/11/16 at 10:30 Epoetin Hang (Epogen (Esrd)) 10,000 units TuThSa@17 SC Last administered on 17:16; Admin Dose 10,000 UNITS; Start 11/11/16 at 17:00 Pantoprazole (Protonix Tab) 40 mg BID@18 PO Last administered on 12/02/16 05:14; Admin Dose 40 MG; Start 11/12/16 at 18:00; Status Future Hold Collagenase (Santyl) 1 applic DAILY TOP Last administered on 12/02/16 10:13; Admin Dose 1 APPLIC; Start 11/13/16 at 09:00 Diagnostic Test (Pha) (Accu-Chek) 1 ea 02 XX Last administered on 11/18/16 01: 42; Admin Dose 1 EA; Start 11/14/16 at 02:00 Insulin Detemir (Levemir) 35 unit QHS@20 SC Last administered on 12/01/16 20: 42; Admin Dose 35 UNIT; Start 11/14/16 at 20:00 Nicotine (Nicoderm 21 Mg/ 24hr) 1 patch DAILY TRANSDERM Last administered on 10:09; Admin Dose 1 PATCH; Start 11/14/16 at 20:00 Docusate Sodium (Colace) 100 mg Q12H PO Last administered on 12/02/16 10:09; Admin Dose 100 MG; Start 11/16/16 at 22:00 Miscellaneous Information 1 ea NOTE XX ; Start 11/17/16 at 11:30 Glucose (Glutose) 15 gm Q15M PRN PO DECREASED GLUCOSE; Start 11/17/16 at 11:30 Glucose (Glutose) 22.5 gm Q15M PRN PO DECREASED GLUCOSE; Start 11/17/16 at 11:30 Dextrose (D50w Syringe) 25 ml Q15M PRN IV DECREASED GLUCOSE; Start 11/17/16 at 11:30 Dextrose (D50w Syringe) 50 ml Q15M PRN IV DECREASED GLUCOSE; Start 11/17/16 at 11:30 Glucagon (Glucagen) 1 mg Q15M PRN IM DECREASED GLUCOSE; Start 11/17/16 at 11:30 Glucose (Glutose) 15 gm Q15M PRN BUCCAL DECREASED GLUCOSE; Start 11/17/16 at 11: 30 Polyethylene Glycol (Miralax) 17 gm BID PO Last administered on 12/02/16 10:12 ; Admin Dose 17 GM; Start 11/17/16 at 12:00 Bisacodyl (Dulcolax) 10 mg DAILY PRN PO CONSTIPATION; Start 11/17/16 at 11:30 Diltiazem HCl (Cardizem Cd) 120 mg BID PO Last administered on 12/02/16 10:09 ; Admin Dose 120 MG; Start 11/19/16 at 21:00 Zolpidem Tartrate (Ambien) 5 mg HS PRN PO INSOMNIA Last administered on 02:17; Admin Dose 5 MG; Start 11/19/16 at 21:30 Lorazepam (Ativan) 1 mg Q6H PRN IV AGITATION/ANXIETY Last administered on 02:19; Admin Dose 1 MG; Start 11/21/16 at 21:15 Guaifenesin/ Codeine Phosphate (Robitussin Ac Liquid Cup) 5 ml Q4H PRN PO COUGH Last administered on 12/02/16 11:29; Admin Dose 5 ML; Start 11/21/16 at 21 :30 Morphine Sulfate 2 mg 2 mg Q3H PRN IV for pain Last administered on 11/28/16 22:48; Admin Dose 2 MG; Start 11/24/16 at 18:30 Vancomycin HCl 250 ml @ 125 mls/hr Q96H IVPB Last administered on 11/29/16 15 :13; Admin Dose 125 MLS/HR; Start 11/25/16 at 15:00; Stop 12/11/16 at 14:59 Meropenem/Sodium Chloride 50 ml @ 100 mls/hr Q24H IVPB Last administered on 16:06; Admin Dose 100 MLS/HR; Start 11/27/16 at 16:00; Stop 12/11/16 at 15:59 Pantoprazole/ Sodium Chloride (Protonix Iv/NS) 100 ml @ 10 mls/hr Q10H IV Last administered on 12/02/16t 12:39; Admin Dose 10 MLS/HR; Start 12/02/16 at 11 :00 CHIP MUNSON Dec 02, 2016 16:51
[2016-12-02] MEDS: PANTOPRAZOLE 40 MG INJ IV SCH (18:08)
[2016-12-02] MEDS: EPOETIN 10000 UNITS/1 ML INJ (ESRD) SC SCH (18:09)
[2016-12-02 19:15] LABS: HEMATOCRIT 26.8 % (37.0-47.0); HEMOGLOBIN 8.3 g/dl (12.0-16.0)
[2016-12-02] MEDS: ATORVASTATIN 40 MG TAB PO SCH (20:45)
[2016-12-02] MEDS: INSULIN DETEMIR [LEVEMIR] 3ML CART SC SCH (20:47)
[2016-12-02 21:21] VITALS: BP 120/59; RESP 19
[2016-12-02 22:00] VITALS: BP 137/87; PULSE 93
[2016-12-03] VITALS (9 sets, daily range): BP systolic 118–136; BP diastolic 51–67; PULSE 74–88; RESP 12–20
[2016-12-03] MEDS: BENZONATATE 100 MG CAP PO SCH ×4 (00:13→17:49)
[2016-12-03 01:24] LABS: HEMATOCRIT 26.8 % (37.0-47.0); HEMOGLOBIN 8.3 g/dl (12.0-16.0)
[2016-12-03] MEDS: ACCU-CHEK XX SCH (02:14)
[2016-12-03 05:42] LABS: HEMATOCRIT 26.7 % (37.0-47.0); HEMOGLOBIN 8.2 g/dl (12.0-16.0)
[2016-12-03] MEDS: PANTOPRAZOLE 40 MG INJ IV SCH ×2 (05:56→17:50)
[2016-12-03 06:25] LABS: ALBUMIN 2.7 g/dl (3.3-4.9); CALCIUM 10.3 mg/dl (8.4-10.2); CREATININE 3.51 mg/dl (0.44-1.00); MAGNESIUM 2.6 mg/dl (1.7-2.5); PHOSPHORUS 3.1 mg/dl (2.5-4.9); POTASSIUM 3.9 mmol/L (3.5-5.1)
[2016-12-03] MEDS: METOCLOPRAMIDE 5 MG TAB PO SCH ×3 (07:30→17:49)
[2016-12-03] MEDS: CALCIUM ACETATE 667 MG CAP PO SCH ×3 (07:35→17:49)
[2016-12-03] MEDS: INSULIN ASPART [NOVOLOG] 3 ML PEN SC SCH ×4 (08:00→21:00)
[2016-12-03] MEDS: MONTELUKAST 10 MG TAB PO SCH (08:37)
[2016-12-03] MEDS: POLYETHYLENE GLYCOL 17 GM PACKET PO SCH ×2 (08:37→21:24)
[2016-12-03] MEDS: PYRIDOXINE 50 MG TAB PO SCH (08:37)
[2016-12-03] MEDS: CINACALCET 30 MG TAB PO SCH (08:37)
[2016-12-03] MEDS: ASPIRIN 81 MG TAB PO SCH (08:37)
[2016-12-03] MEDS: LOSARTAN 50 MG TAB PO SCH ×2 (08:39→21:24)
[2016-12-03] MEDS: DILTIAZEM (CD) 120 MG CAP PO SCH ×2 (08:39→21:23)
[2016-12-03] MEDS: METOPROLOL (XL) 50 MG TAB PO SCH ×2 (08:40→21:24)
[2016-12-03] MEDS: AMLODIPINE 5 MG TAB PO SCH (08:41)
[2016-12-03] MEDS: FUROSEMIDE 40 MG TAB PO SCH (08:42)
[2016-12-03] MEDS: NICOTINE (21 MG/24 HR) PATCH TRANSDERM SCH (08:42)
[2016-12-03] MEDS: TIOTROPIUM 18 MCG CAPSULE INHA DEV INH SCH (08:43)
[2016-12-03] MEDS: SALMETEROL/FLUTICASONE 250/50 INHA INH SCH ×2 (08:43→21:25)
[2016-12-03] MEDS: COLLAGENASE 30 GM TUBE TOP SCH ×2 (09:00→21:27)
[2016-12-03] MEDS: DOCUSATE SODIUM 100 MG CAP PO SCH ×2 (10:00→21:24)
[2016-12-03] MEDS ORDERED: PROPOFOL 20 ML ONE (13:47)
[2016-12-03] MEDS ORDERED: LIDOCAINE 2% (SDV) 5 ML INJ ONE (13:47)
--- NOTE | 2016-12-03 15:00 | PN ---
Date/Time of Note Date/Time of Note DATE: 12/03/16 TIME: 14:59 Assessment/Plan VTE Prophylaxis VTE Prophylaxis Intervention: SCD's Lines/Catheters IV Catheter Type (from Nrsg): Saline Lock Urinary Cath still in place: No Assessment/Plan Chief Complaint/Hosp Course Patient is a 61-year-old female with past history of end-stage renal disease, diabetes, hypertension and obesity presents to [facility] 4 grown falls at home found to have ulcers and pneumonia. Assessment Debility Left lower extremity thigh area ulcer, with wound VAC GI bleed Diabetes type 2 End-stage renal disease, on dialysis Pneumonia Obesity Dyslipidemia Diabetic foot ulcers Bilateral lower extremity chronic venous stasis ulcers Chronic cellulitis Left hip wound Coronary artery disease Hypertension Atrial fibrillation Lower extremity edema Insomnia Plan -protonix bid per GI, EGD today -Patient has multiple medical conditions, continue vancomycin and meropenem for left hip wound, for total of 14 days per ID, 4 more days -continue home medications as able -Patient will likely need halfway, pending placement at this time, disposition issue with placement. -As needed medications for pain -Wound care ordered -Wound VAC care ordered. Problems: Subjective 24 Hr Interval Summary Free Text/Dictation patient thirsty Exam/Review of Systems Vital Signs Vitals Vital Signs Date Time Temp Pulse Resp B/P Pulse Ox O2 Delivery O2 Flow Rate FiO2 12/03/16 14:33 85 12 119/51 96 Nasal Cannula 12/03/16 13:36 97.6 2.0 Intake and Output 12/02/16 12/02/16 12/03/16 15:00 23:00 07:00 Intake Total 400 ml 990 ml 480 ml Balance 400 ml 990 ml 480 ml Exam Physical exam General: Patient is laying in bed and answers questions appropriately Mentation: Patient is alert and oriented 4, Head: Normocephalic atraumatic Eyes: EOMI, pupils reactive to light Neck: Supple, nontender, midline Respiratory:mildly course to auscultation bilaterally Cardiovascular: regular rate, no obvious murmurs Gastrointestinal: non-tender to palpation, bowel sounds heard. Neurological: Moves all extremities spontaneously Skin: multiple skin lesions on body. L hip wound with wound vac. multiple LE ulcerations Results Result Diagram: 12/03/16 0524 12/03/16 0524 Results 24 hrs Laboratory Tests Test 12/02/16 17:59 12/02/16 18:28 12/02/16 20:43 12/03/16 01:06 Bedside Glucose 182 186 Hemoglobin 8.3 L 8.3 L Hematocrit 26.8 L 26.8 L Test 12/03/16 02:07 12/03/16 05:24 12/03/16 08:02 12/03/16 12:00 Bedside Glucose 166 105 114 Hemoglobin 8.2 L Hematocrit 26.7 L Sodium Level 145 H Potassium Level 3.9 Chloride Level 99 Carbon Dioxide Level 31 Anion Gap 19 H Blood Urea Nitrogen 47 H Creatinine 3.51 H Glucose Level 124 # Calcium Level 10.3 H Phosphorus Level 3.1 Magnesium Level 2.6 H Albumin 2.7 L Medications Medications Current Medications Amlodipine Besylate (Norvasc) 5 mg DAILY PO Last administered on 12/03/16 08: 41; Admin Dose 5 MG; Start 11/11/16 at 09:30 Apixaban (Eliquis) 5 mg BID PO Last administered on 12/01/16 20:36; Admin Dose 5 MG; Start 11/11/16 at 09:30; Status Future Hold Aspirin (Aspirin) 81 mg DAILY PO Last administered on 12/02/16 10:10; Admin Dose 81 MG; Start 11/11/16 at 09:30 Atorvastatin Calcium (Lipitor) 40 mg QHS PO Last administered on 12/02/16 20: 45; Admin Dose 40 MG; Start 11/11/16 at 21:00 Benzonatate (Tessalon) 100 mg Q6 PO Last administered on 12/03/16 05:55; Admin Dose 100 MG; Start 11/11/16 at 12:00 Carisoprodol (Soma) 350 mg Q8 PRN PO MUSCLE SPASMS Last administered on 09:36; Admin Dose 350 MG; Start 11/11/16 at 12:00 Cinacalcet (Sensipar) 30 mg DAILY PO Last administered on 12/02/16 10:09; Admin Dose 30 MG; Start 11/11/16 at 11:00 Furosemide (Lasix) 80 mg DAILY PO Last administered on 12/03/16 08:42; Admin Dose 80 MG; Start 11/11/16 at 09:30 Losartan Potassium (Cozaar) 50 mg BID PO Last administered on 12/03/16 08:39; Admin Dose 50 MG; Start 11/11/16 at 09:30 Metoprolol Succinate (Toprol Xl) 50 mg BID PO Last administered on 12/03/16 08 :40; Admin Dose 50 MG; Start 11/11/16 at 09:30 Montelukast Sodium (Singulair) 10 mg QAM PO Last administered on 12/02/16 10: 10; Admin Dose 10 MG; Start 11/11/16 at 11:00 Oxycodone/ Acetaminophen (Endocet (10/ 325)) 1 tab Q6 PRN PO PRN Last administered on 12/02/16 12:39; Admin Dose 1 TAB; Start 11/11/16 at 12:00 Pyridoxine HCl (Vitamin B6) 50 mg DAILY PO Last administered on 12/02/16 10:10 ; Admin Dose 50 MG; Start 11/11/16 at 09:30 Tiotropium [place] (Spiriva) 1 inh DAILY INH Last administered on 12/03/16 08: 43; Admin Dose 1 INH; Start 11/11/16 at 11:00 Ondansetron HCl (Zofran Tab) 4 mg Q6H PRN PO NAUSEA AND/OR VOMITING Last administered on 11/22/16 08:46; Admin Dose 4 MG; Start 11/11/16 at 10:00 Salmeterol Xinafoate/ Fluticasone (Advair 250/50 Diskus) 1 inh BID INH Last administered on 12/03/16 08:43; Admin Dose 1 INH; Start 11/11/16 at 11:00 Vancomycin HCl (Vanco Iv Per Pharmacy) PER PHARMACY DOSING NOTE XX ; Start 11/11 at 10:30; Stop 12/11/16 at 14:59 Albuterol (Ventolin Hfa) 2 puff Q4H PRN INH AOB Last administered on 11/25/16 12:06; Admin Dose 2 PUFF; Start 11/11/16 at 10:30 Epoetin Hang (Epogen (Esrd)) 10,000 units TuThSa@17 SC Last administered on 18:09; Admin Dose 10,000 UNITS; Start 11/11/16 at 17:00 Collagenase (Santyl) 1 applic DAILY TOP Last administered on 12/02/16 10:13; Admin Dose 1 APPLIC; Start 11/13/16 at 09:00 Diagnostic Test (Pha) (Accu-Chek) 1 ea 02 XX Last administered on 12/03/16 02: 14; Admin Dose 1 EA; Start 11/14/16 at 02:00 Insulin Detemir (Levemir) 35 unit QHS@20 SC Last administered on 12/02/16 20: 47; Admin Dose 35 UNIT; Start 11/14/16 at 20:00 Nicotine (Nicoderm 21 Mg/ 24hr) 1 patch DAILY TRANSDERM Last administered on 08:42; Admin Dose 1 PATCH; Start 11/14/16 at 20:00 Docusate Sodium (Colace) 100 mg Q12H PO Last administered on 12/02/16 10:09; Admin Dose 100 MG; Start 11/16/16 at 22:00 Miscellaneous Information 1 ea NOTE XX ; Start 11/17/16 at 11:30 Glucose (Glutose) 15 gm Q15M PRN PO DECREASED GLUCOSE; Start 11/17/16 at 11:30 Glucose (Glutose) 22.5 gm Q15M PRN PO DECREASED GLUCOSE; Start 11/17/16 at 11:30 Dextrose (D50w Syringe) 25 ml Q15M PRN IV DECREASED GLUCOSE; Start 11/17/16 at 11:30 Dextrose (D50w Syringe) 50 ml Q15M PRN IV DECREASED GLUCOSE; Start 11/17/16 at 11:30 Glucagon (Glucagen) 1 mg Q15M PRN IM DECREASED GLUCOSE; Start 11/17/16 at 11:30 Glucose (Glutose) 15 gm Q15M PRN BUCCAL DECREASED GLUCOSE; Start 11/17/16 at 11: 30 Polyethylene Glycol (Miralax) 17 gm BID PO Last administered on 12/02/16 10:12 ; Admin Dose 17 GM; Start 11/17/16 at 12:00 Bisacodyl (Dulcolax) 10 mg DAILY PRN PO CONSTIPATION; Start 11/17/16 at 11:30 Diltiazem HCl (Cardizem Cd) 120 mg BID PO Last administered on 12/03/16 08:39 ; Admin Dose 120 MG; Start 11/19/16 at 21:00 Zolpidem Tartrate (Ambien) 5 mg HS PRN PO INSOMNIA Last administered on 02:17; Admin Dose 5 MG; Start 11/19/16 at 21:30 Lorazepam (Ativan) 1 mg Q6H PRN IV AGITATION/ANXIETY Last administered on 20:39; Admin Dose 1 MG; Start 11/21/16 at 21:15 Guaifenesin/ Codeine Phosphate (Robitussin Ac Liquid Cup) 5 ml Q4H PRN PO COUGH Last administered on 12/02/16 11:29; Admin Dose 5 ML; Start 11/21/16 at 21 :30 Morphine Sulfate 2 mg 2 mg Q3H PRN IV for pain Last administered on 11/28/16 22:48; Admin Dose 2 MG; Start 11/24/16 at 18:30 Vancomycin HCl 250 ml @ 125 mls/hr Q96H IVPB Last administered on 11/29/16 15 :13; Admin Dose 125 MLS/HR; Start 11/25/16 at 15:00; Stop 12/11/16 at 14:59 Meropenem/Sodium Chloride (Merrem 500mg/50 ml(Pmx)) 50 ml @ 100 mls/hr Q24H IVPB Last administered on 12/02/16 16:06; Admin Dose 100 MLS/HR; Start at 16:00; Stop 12/11/16 at 15:59 Pantoprazole (Protonix Iv) 40 mg BID@06,18 IV Last administered on 12/03/16 05 :56; Admin Dose 40 MG; Start 12/02/16 at 18:00 Sucralfate (Carafate) 1 gm QID PO ; Start 12/03/16 at 17:00 CHIP MUNSON Dec 03, 2016 15:00
[2016-12-03] MEDS: LORAZEPAM 2 MG INJ IV PRN ×2 (15:57→22:13)
--- NOTE | 2016-12-03 16:08 | CONS ---
Date/Time of Note Date/Time of Note DATE: 12/03/16 TIME: 16:07 Assessment/Plan Assessment/Plan Chief Complaint/Hosp Course No acute changes, afebrile Indwelling's: Left upper extremity AV fistula Antimicrobials: Vancomycin, Merrem Physical examination: Morbidly obese well-developed, ill-appearing elderly woman in no distress. Head atraumatic, normocephalic. Sclerae nonicteric. Neck is obese. Chest rise symmetrical, breath sounds diminished basis. Heart S1-S2. Abdomen obese soft bowel tones present. Extremities with bilateral edema, patient has multiple lesions on her lower extremities erythema resolving, she has a left upper thigh wound VAC. ASSESSMENT: 1. Acute encephalopathy, likely toxic metabolic, improving 2. Bilateral lower extremities chronic venous stasis with chronic cellulitis and left hip wound, s/p debridement and wound vac application 10/19/16. 3. End-stage renal disease, on hemodialysis. 4. Morbid obesity. 5. Atrial fibrillation. 6. Healthcare associated pneumonia, possibly aspiration 7. Allergy: Penicillin, Cipro Plan: Remains stable, continue antibiotic for 5 more days, pending EGD, continue local wound care as per surgical team. staff Problems: Consultation Date/Type/Reason Admit Date/Time Nov 11, 2016 at 06:40 Initial Consult Date 11/12/16 Type of Consultation: ID Referring Provider: ERICK MATOS Exam/Review of Systems Vital Signs Vitals Vital Signs Date Time Temp Pulse Resp B/P Pulse Ox O2 Delivery O2 Flow Rate FiO2 12/03/16 14:33 85 12 119/51 96 Nasal Cannula 12/03/16 13:36 97.6 2.0 Intake and Output 12/02/16 12/02/16 12/03/16 15:00 23:00 07:00 Intake Total 400 ml 990 ml 480 ml Balance 400 ml 990 ml 480 ml Results Result Diagram: 12/03/16 0524 12/03/16 0524 Results 24 hrs Laboratory Tests Test 12/02/16 17:59 12/02/16 18:28 12/02/16 20:43 12/03/16 01:06 Bedside Glucose 182 186 Hemoglobin 8.3 L 8.3 L Hematocrit 26.8 L 26.8 L Test 12/03/16 02:07 12/03/16 05:24 12/03/16 08:02 12/03/16 12:00 Bedside Glucose 166 105 114 Hemoglobin 8.2 L Hematocrit 26.7 L Sodium Level 145 H Potassium Level 3.9 Chloride Level 99 Carbon Dioxide Level 31 Anion Gap 19 H Blood Urea Nitrogen 47 H Creatinine 3.51 H Glucose Level 124 # Calcium Level 10.3 H Phosphorus Level 3.1 Magnesium Level 2.6 H Albumin 2.7 L Medications Medications Current Medications Amlodipine Besylate (Norvasc) 5 mg DAILY PO Last administered on 12/03/16 08: 41; Admin Dose 5 MG; Start 11/11/16 at 09:30 Apixaban (Eliquis) 5 mg BID PO Last administered on 12/01/16 20:36; Admin Dose 5 MG; Start 11/11/16 at 09:30; Status Future Hold Aspirin (Aspirin) 81 mg DAILY PO Last administered on 12/02/16 10:10; Admin Dose 81 MG; Start 11/11/16 at 09:30 Atorvastatin Calcium (Lipitor) 40 mg QHS PO Last administered on 12/02/16 20: 45; Admin Dose 40 MG; Start 11/11/16 at 21:00 Benzonatate (Tessalon) 100 mg Q6 PO Last administered on 12/03/16 05:55; Admin Dose 100 MG; Start 11/11/16 at 12:00 Carisoprodol (Soma) 350 mg Q8 PRN PO MUSCLE SPASMS Last administered on 09:36; Admin Dose 350 MG; Start 11/11/16 at 12:00 Cinacalcet (Sensipar) 30 mg DAILY PO Last administered on 12/02/16 10:09; Admin Dose 30 MG; Start 11/11/16 at 11:00 Furosemide (Lasix) 80 mg DAILY PO Last administered on 12/03/16 08:42; Admin Dose 80 MG; Start 11/11/16 at 09:30 Losartan Potassium (Cozaar) 50 mg BID PO Last administered on 12/03/16 08:39; Admin Dose 50 MG; Start 11/11/16 at 09:30 Metoprolol Succinate (Toprol Xl) 50 mg BID PO Last administered on 12/03/16 08 :40; Admin Dose 50 MG; Start 11/11/16 at 09:30 Montelukast Sodium (Singulair) 10 mg QAM PO Last administered on 12/02/16 10: 10; Admin Dose 10 MG; Start 11/11/16 at 11:00 Oxycodone/ Acetaminophen (Endocet (10)) 1 tab Q6 PRN PO PRN Last administered on 12/02/16 12:39; Admin Dose 1 TAB; Start 11/11/16 at 12:00 Pyridoxine HCl (Vitamin B6) 50 mg DAILY PO Last administered on 12/02/16 10:10 ; Admin Dose 50 MG; Start 11/11/16 at 09:30 Tiotropium [place] (Spiriva) 1 inh DAILY INH Last administered on 12/03/16 08: 43; Admin Dose 1 INH; Start 11/11/16 at 11:00 Ondansetron HCl (Zofran Tab) 4 mg Q6H PRN PO NAUSEA AND/OR VOMITING Last administered on 11/22/16 08:46; Admin Dose 4 MG; Start 11/11/16 at 10:00 Salmeterol Xinafoate/ Fluticasone (Advair 250/50 Diskus) 1 inh BID INH Last administered on 12/03/16 08:43; Admin Dose 1 INH; Start 11/11/16 at 11:00 Vancomycin HCl (Vanco Iv Per Pharmacy) PER PHARMACY DOSING NOTE XX ; Start 11/11 at 10:30; Stop 12/11/16 at 14:59 Albuterol (Ventolin Hfa) 2 puff Q4H PRN INH AOB Last administered on 11/25/16 12:06; Admin Dose 2 PUFF; Start 11/11/16 at 10:30 Epoetin [place] (Epogen (Esrd)) 10,000 units TuThSa@17 SC Last administered on 18:09; Admin Dose 10,000 UNITS; Start 11/11/16 at 17:00 Collagenase (Santyl) 1 applic DAILY TOP Last administered on 12/02/16 10:13; Admin Dose 1 APPLIC; Start 11/13/16 at 09:00 Diagnostic Test (Pha) (Accu-Chek) 1 ea 02 XX Last administered on 12/03/16 02: 14; Admin Dose 1 EA; Start 11/14/16 at 02:00 Insulin Detemir (Levemir) 35 unit QHS@20 SC Last administered on 12/02/16 20: 47; Admin Dose 35 UNIT; Start 11/14/16 at 20:00 Nicotine (Nicoderm 21 Mg/ 24hr) 1 patch DAILY TRANSDERM Last administered on 08:42; Admin Dose 1 PATCH; Start 11/14/16 at 20:00 Docusate Sodium (Colace) 100 mg Q12H PO Last administered on 12/02/16 10:09; Admin Dose 100 MG; Start 11/16/16 at 22:00 Miscellaneous Information 1 ea NOTE XX ; Start 11/17/16 at 11:30 Glucose (Glutose) 15 gm Q15M PRN PO DECREASED GLUCOSE; Start 11/17/16 at 11:30 Glucose (Glutose) 22.5 gm Q15M PRN PO DECREASED GLUCOSE; Start 11/17/16 at 11:30 Dextrose (D50w Syringe) 25 ml Q15M PRN IV DECREASED GLUCOSE; Start 11/17/16 at 11:30 Dextrose (D50w Syringe) 50 ml Q15M PRN IV DECREASED GLUCOSE; Start 11/17/16 at 11:30 Glucagon (Glucagen) 1 mg Q15M PRN IM DECREASED GLUCOSE; Start 11/17/16 at 11:30 Glucose (Glutose) 15 gm Q15M PRN BUCCAL DECREASED GLUCOSE; Start 11/17/16 at 11: 30 Polyethylene Glycol (Miralax) 17 gm BID PO Last administered on 12/02/16 10:12 ; Admin Dose 17 GM; Start 11/17/16 at 12:00 Bisacodyl (Dulcolax) 10 mg DAILY PRN PO CONSTIPATION; Start 11/17/16 at 11:30 Diltiazem HCl (Cardizem Cd) 120 mg BID PO Last administered on 12/03/16 08:39 ; Admin Dose 120 MG; Start 11/19/16 at 21:00 Zolpidem Tartrate (Ambien) 5 mg HS PRN PO INSOMNIA Last administered on 02:17; Admin Dose 5 MG; Start 11/19/16 at 21:30 Lorazepam (Ativan) 1 mg Q6H PRN IV AGITATION/ANXIETY Last administered on 15:57; Admin Dose 1 MG; Start 11/21/16 at 21:15 Guaifenesin/ Codeine Phosphate (Robitussin Ac Liquid Cup) 5 ml Q4H PRN PO COUGH Last administered on 12/02/16 11:29; Admin Dose 5 ML; Start 11/21/16 at 21 :30 Morphine Sulfate 2 mg 2 mg Q3H PRN IV for pain Last administered on 11/28/16 22:48; Admin Dose 2 MG; Start 11/24/16 at 18:30 Vancomycin HCl 250 ml @ 125 mls/hr Q96H IVPB Last administered on 11/29/16 15 :13; Admin Dose 125 MLS/HR; Start 11/25/16 at 15:00; Stop 12/11/16 at 14:59 Meropenem/Sodium Chloride (Merrem 500mg/50 ml(Pmx)) 50 ml @ 100 mls/hr Q24H IVPB Last administered on 12/02/16 16:06; Admin Dose 100 MLS/HR; Start at 16:00; Stop 12/11/16 at 15:59 Pantoprazole (Protonix Iv) 40 mg BID@06,18 IV Last administered on 12/03/16 05 :56; Admin Dose 40 MG; Start 12/02/16 at 18:00 Sucralfate (Carafate) 1 gm QID PO ; Start 12/03/16 at 17:00 TODD RAMIRES NP Dec 03, 2016 16:08
--- NOTE | 2016-12-03 17:02 | CONS ---
Date/Time of Note Date/Time of Note DATE: 12/03/16 TIME: 17:01 Assessment/Plan Assessment/Plan Chief Complaint/Hosp Course - ESR[facility] F[facility] - ACUTE ANEMIA - Hx of Cellulitis - CAD/CHF - Hx of Hypertension - Pneumonia PLAN: Bedside dialysis Aim for UF ~ 2 Kg Monitor H/H Continue with Abx Started EPOGEN Iron Had transfusion Problems: Consultation Date/Type/Reason Admit Date/Time Nov 11, 2016 at 06:40 Initial Consult Date 11/12/16 Type of Consultation: NEPHROLOGY Reason for Consultation ESRD Referring Provider: ERICK MATOS 24 HR Interval Summary Constitutional: improved, no complaints Exam/Review of Systems Vital Signs Vitals Vital Signs Date Time Temp Pulse Resp B/P Pulse Ox O2 Delivery O2 Flow Rate FiO2 12/03/16 16:30 74 12/03/16 16:30 19 12/03/16 14:33 119/51 96 Nasal Cannula 12/03/16 13:36 97.6 2.0 Intake and Output 12/02/16 12/02/16 12/03/16 15:00 23:00 07:00 Intake Total 400 ml 990 ml 480 ml Balance 400 ml 990 ml 480 ml Exam Constitutional: alert, oriented Psych: no complaints Respiratory: crackles/rales Cardiovascular: edema, regular rate and rhythm, systolic murmur Gastrointestinal: soft Results Result Diagram: 12/03/16 0524 12/03/16 0524 Results 24 hrs Laboratory Tests Test 12/02/16 17:59 12/02/16 18:28 12/02/16 20:43 12/03/16 01:06 Bedside Glucose 182 186 Hemoglobin 8.3 L 8.3 L Hematocrit 26.8 L 26.8 L Test 12/03/16 02:07 12/03/16 05:24 12/03/16 08:02 12/03/16 12:00 Bedside Glucose 166 105 114 Hemoglobin 8.2 L Hematocrit 26.7 L Sodium Level 145 H Potassium Level 3.9 Chloride Level 99 Carbon Dioxide Level 31 Anion Gap 19 H Blood Urea Nitrogen 47 H Creatinine 3.51 H Glucose Level 124 # Calcium Level 10.3 H Phosphorus Level 3.1 Magnesium Level 2.6 H Albumin 2.7 L Medications Medications Current Medications Amlodipine Besylate (Norvasc) 5 mg DAILY PO Last administered on 12/03/16 08: 41; Admin Dose 5 MG; Start 11/11/16 at 09:30 Apixaban (Eliquis) 5 mg BID PO Last administered on 12/01/16 20:36; Admin Dose 5 MG; Start 11/11/16 at 09:30; Status Future Hold Aspirin (Aspirin) 81 mg DAILY PO Last administered on 12/02/16 10:10; Admin Dose 81 MG; Start 11/11/16 at 09:30 Atorvastatin Calcium (Lipitor) 40 mg QHS PO Last administered on 12/02/16 20: 45; Admin Dose 40 MG; Start 11/11/16 at 21:00 Benzonatate (Tessalon) 100 mg Q6 PO Last administered on 12/03/16 05:55; Admin Dose 100 MG; Start 11/11/16 at 12:00 Carisoprodol (Soma) 350 mg Q8 PRN PO MUSCLE SPASMS Last administered on 09:36; Admin Dose 350 MG; Start 11/11/16 at 12:00 Cinacalcet (Sensipar) 30 mg DAILY PO Last administered on 12/02/16 10:09; Admin Dose 30 MG; Start 11/11/16 at 11:00 Furosemide (Lasix) 80 mg DAILY PO Last administered on 12/03/16 08:42; Admin Dose 80 MG; Start 11/11/16 at 09:30 Losartan Potassium (Cozaar) 50 mg BID PO Last administered on 12/03/16 08:39; Admin Dose 50 MG; Start 11/11/16 at 09:30 Metoprolol Succinate (Toprol Xl) 50 mg BID PO Last administered on 12/03/16 08 :40; Admin Dose 50 MG; Start 11/11/16 at 09:30 Montelukast Sodium (Singulair) 10 mg QAM PO Last administered on 12/02/16 10: 10; Admin Dose 10 MG; Start 11/11/16 at 11:00 Oxycodone/ Acetaminophen (Endocet (10/ 325)) 1 tab Q6 PRN PO PRN Last administered on 12/02/16 12:39; Admin Dose 1 TAB; Start 11/11/16 at 12:00 Pyridoxine HCl (Vitamin B6) 50 mg DAILY PO Last administered on 12/02/16 10:10 ; Admin Dose 50 MG; Start 11/11/16 at 09:30 Tiotropium [place] (Spiriva) 1 inh DAILY INH Last administered on 12/03/16 08: 43; Admin Dose 1 INH; Start 11/11/16 at 11:00 Ondansetron HCl (Zofran Tab) 4 mg Q6H PRN PO NAUSEA AND/OR VOMITING Last administered on 11/22/16 08:46; Admin Dose 4 MG; Start 11/11/16 at 10:00 Salmeterol Xinafoate/ Fluticasone (Advair 250/50 Diskus) 1 inh BID INH Last administered on 12/03/16 08:43; Admin Dose 1 INH; Start 11/11/16 at 11:00 Vancomycin HCl (Vanco Iv Per Pharmacy) PER PHARMACY DOSING NOTE XX ; Start 11/11 at 10:30; Stop 12/11/16 at 14:59 Albuterol (Ventolin Hfa) 2 puff Q4H PRN INH AOB Last administered on 11/25/16 12:06; Admin Dose 2 PUFF; Start 11/11/16 at 10:30 Epoetin Hang (Epogen (Esrd)) 10,000 units TuThSa@17 SC Last administered on 18:09; Admin Dose 10,000 UNITS; Start 11/11/16 at 17:00 Collagenase (Santyl) 1 applic DAILY TOP Last administered on 12/02/16 10:13; Admin Dose 1 APPLIC; Start 11/13/16 at 09:00 Diagnostic Test (Pha) (Accu-Chek) 1 ea 02 XX Last administered on 12/03/16 02: 14; Admin Dose 1 EA; Start 11/14/16 at 02:00 Insulin Detemir (Levemir) 35 unit QHS@20 SC Last administered on 12/02/16 20: 47; Admin Dose 35 UNIT; Start 11/14/16 at 20:00 Nicotine (Nicoderm 21 Mg/ 24hr) 1 patch DAILY TRANSDERM Last administered on 08:42; Admin Dose 1 PATCH; Start 11/14/16 at 20:00 Docusate Sodium (Colace) 100 mg Q12H PO Last administered on 12/02/16 10:09; Admin Dose 100 MG; Start 11/16/16 at 22:00 Miscellaneous Information 1 ea NOTE XX ; Start 11/17/16 at 11:30 Glucose (Glutose) 15 gm Q15M PRN PO DECREASED GLUCOSE; Start 11/17/16 at 11:30 Glucose (Glutose) 22.5 gm Q15M PRN PO DECREASED GLUCOSE; Start 11/17/16 at 11:30 Dextrose (D50w Syringe) 25 ml Q15M PRN IV DECREASED GLUCOSE; Start 11/17/16 at 11:30 Dextrose (D50w Syringe) 50 ml Q15M PRN IV DECREASED GLUCOSE; Start 11/17/16 at 11:30 Glucagon (Glucagen) 1 mg Q15M PRN IM DECREASED GLUCOSE; Start 11/17/16 at 11:30 Glucose (Glutose) 15 gm Q15M PRN BUCCAL DECREASED GLUCOSE; Start 11/17/16 at 11: 30 Polyethylene Glycol (Miralax) 17 gm BID PO Last administered on 12/02/16 10:12 ; Admin Dose 17 GM; Start 11/17/16 at 12:00 Bisacodyl (Dulcolax) 10 mg DAILY PRN PO CONSTIPATION; Start 11/17/16 at 11:30 Diltiazem HCl (Cardizem Cd) 120 mg BID PO Last administered on 12/03/16 08:39 ; Admin Dose 120 MG; Start 11/19/16 at 21:00 Zolpidem Tartrate (Ambien) 5 mg HS PRN PO INSOMNIA Last administered on 02:17; Admin Dose 5 MG; Start 11/19/16 at 21:30 Lorazepam (Ativan) 1 mg Q6H PRN IV AGITATION/ANXIETY Last administered on 15:57; Admin Dose 1 MG; Start 11/21/16 at 21:15 Guaifenesin/ Codeine Phosphate (Robitussin Ac Liquid Cup) 5 ml Q4H PRN PO COUGH Last administered on 12/02/16 11:29; Admin Dose 5 ML; Start 11/21/16 at 21 :30 Morphine Sulfate 2 mg 2 mg Q3H PRN IV for pain Last administered on 11/28/16 22:48; Admin Dose 2 MG; Start 11/24/16 at 18:30 Vancomycin HCl 250 ml @ 125 mls/hr Q96H IVPB Last administered on 11/29/16 15 :13; Admin Dose 125 MLS/HR; Start 11/25/16 at 15:00; Stop 12/11/16 at 14:59 Meropenem/Sodium Chloride (Merrem 500mg/50 ml(Pmx)) 50 ml @ 100 mls/hr Q24H IVPB Last administered on 12/02/16 16:06; Admin Dose 100 MLS/HR; Start at 16:00; Stop 12/11/16 at 15:59 Pantoprazole (Protonix Iv) 40 mg BID@06,18 IV Last administered on 12/03/16 05 :56; Admin Dose 40 MG; Start 12/02/16 at 18:00 Sucralfate (Carafate) 1 gm QID PO ; Start 12/03/16 at 17:00 BECKY GAMBLE MD Dec 03, 2016 17:02
[2016-12-03] MEDS: SUCRALFATE 1 GM TAB PO SCH ×2 (17:49→21:23)
[2016-12-03] MEDS: MEROPENEM 500MG/50 ML (PMX) 50 ML IVPB SCH (17:49)
[2016-12-03] MEDS: VANCOMYCIN 1 GM in NS 250 ML IVPB SCH (18:34)
[2016-12-03] MEDS: ATORVASTATIN 40 MG TAB PO SCH (21:24)
[2016-12-03] MEDS: INSULIN DETEMIR [LEVEMIR] 3ML CART SC SCH (21:27)
[2016-12-03] MEDS: morphine 2 MG INJ IV PRN (21:28)
[2016-12-04 02:00] VITALS: BP 140/74; RESP 20
[2016-12-04] MEDS: ACCU-CHEK XX SCH (02:00)
[2016-12-04] MEDS: PANTOPRAZOLE 40 MG INJ IV SCH ×2 (05:45→17:01)
[2016-12-04] MEDS: BENZONATATE 100 MG CAP PO SCH ×5 (05:45→21:25)
[2016-12-04 06:09] LABS: ABNORMAL IP MESSAGE 1; BASOPHIL # 0.1 10^3/ul (0.0-0.1); BASOPHILS % 0.7 % (0.0-2.0); EOSINOPHILS # 0.5 10^3/ul (0.0-0.5); EOSINOPHILS % 4.2 % (0.0-7.0); HEMATOCRIT 28.7 % (37.0-47.0); HEMOGLOBIN 8.6 g/dl (12.0-16.0); LYMPHOCYTES # 1.3 10^3/ul (0.8-2.9); LYMPHOCYTES % 11.8 % (15.0-51.0); MEAN CORPUSCULAR HEMOGLOBIN 29.6 pg (29.0-33.0); MEAN CORPUSCULAR VOLUME 98.6 fl (82.0-101.0); MEAN PLATELET VOLUME 9.6 fl (7.4-10.4); MONOCYTE # 1.8 10^3/ul (0.3-0.9); MONOCYTES % 16.8 % (0.0-11.0); NEUTROPHIL # 7.1 10^3/ul (1.6-7.5); NEUTROPHILS % 65.2 % (39.0-77.0); NUCLEATED RED BLOOD CELLS% 0.3 /100WBC (0.0-0.0); PLATELET COUNT 314 10^3/UL (140-415); RED BLOOD COUNT 2.91 10^6/ul (4.20-5.40); RED CELL DISTRIBUTION WIDTH 22.1 % (11.5-14.5); WHITE BLOOD COUNT 10.9 10^3/ul (4.8-10.8)
[2016-12-04 06:26] LABS: POSITIVE DIFF @See below
[2016-12-04] MEDS: morphine 2 MG INJ IV PRN (06:26)
[2016-12-04 06:56] LABS: CREATININE 3.4 mg/dl (0.44-1.00); MAGNESIUM 2.6 mg/dl (1.7-2.5); PHOSPHORUS 3.2 mg/dl (2.5-4.9); POTASSIUM 4.1 mmol/L (3.5-5.1)
[2016-12-04] MEDS: INSULIN ASPART [NOVOLOG] 3 ML PEN SC SCH ×4 (07:55→21:00)
[2016-12-04 08:00] VITALS: BP 133/64; RESP 18
[2016-12-04] MEDS: DOCUSATE SODIUM 100 MG CAP PO SCH ×2 (08:51→21:26)
[2016-12-04] MEDS: POLYETHYLENE GLYCOL 17 GM PACKET PO SCH ×2 (08:51→21:28)
[2016-12-04] MEDS: ASPIRIN 81 MG TAB PO SCH (08:59)
[2016-12-04] MEDS: METOPROLOL (XL) 50 MG TAB PO SCH ×2 (09:00→21:25)
[2016-12-04] MEDS: CINACALCET 30 MG TAB PO SCH (09:01)
[2016-12-04] MEDS: CALCIUM ACETATE 667 MG CAP PO SCH ×4 (09:01→21:24)
[2016-12-04] MEDS: METOCLOPRAMIDE 5 MG TAB PO SCH ×3 (09:01→16:57)
[2016-12-04] MEDS: DILTIAZEM (CD) 120 MG CAP PO SCH ×2 (09:02→21:26)
[2016-12-04] MEDS: AMLODIPINE 5 MG TAB PO SCH (09:02)
[2016-12-04] MEDS: PYRIDOXINE 50 MG TAB PO SCH (09:02)
[2016-12-04] MEDS: MONTELUKAST 10 MG TAB PO SCH (09:02)
[2016-12-04] MEDS: NICOTINE (21 MG/24 HR) PATCH TRANSDERM SCH (09:02)
[2016-12-04] MEDS: FUROSEMIDE 40 MG TAB PO SCH (09:05)
[2016-12-04] MEDS: SUCRALFATE 1 GM TAB PO SCH ×4 (09:06→21:25)
[2016-12-04] MEDS: TIOTROPIUM 18 MCG CAPSULE INHA DEV INH SCH (09:06)
[2016-12-04] MEDS: LOSARTAN 50 MG TAB PO SCH ×2 (09:06→21:25)
--- NOTE | 2016-12-04 09:26 | PN ---
Date/Time of Note Date/Time of Note DATE: 12/04/16 TIME: 09:20 Assessment/Plan VTE Prophylaxis VTE Prophylaxis Intervention: SCD's Lines/Catheters IV Catheter Type (from [facility]): Saline Lock Urinary Cath still in place: No Assessment/Plan Assessment/Plan Assessment * Anemia EGD Erosive esophagitis proximal displacement EG junction R/O Land esophagus hiatal hernia erosive gastritis * ESRD on hemodialysis MWF * Morbid obesity * Diabetes mellitus * Hypertension * Cellulitis left lower extremity * Pneumonia Plan * await biosy result * continue present management * Protonix 40 mg BID * Case discussed with Dr Trujillo * Further orders will depend on clinical course Subjective 24 Hr Interval Summary Free Text/Dictation * Course reviewed with RN * Patient seen and examined * EGD erosive esophagitis proximal displacement esophagogastric junction r/o Land hiatal hernia erosive gastritis Exam/Review of Systems Vital Signs Vitals Vital Signs Date Time Temp Pulse Resp B/P Pulse Ox O2 Delivery O2 Flow Rate FiO2 12/04/16 06:51 2.0 12/04/16 02:00 98.0 82 20 140/74 97 12/03/16 14:33 Nasal Cannula Intake and Output 12/03/16 12/03/16 12/04/16 15:00 23:00 07:00 Intake Total 900 ml 240 ml Output Total 2500 ml Balance -1600 ml 240 ml Exam Constitutional: alert, oriented Eyes: nl sclera ENMT: mucosa pink and moist Respiratory: clear to auscultation, normal air movement Cardiovascular: nl pulses, regular rate and rhythm Gastrointestinal: nl liver, spleen, non-tender, soft Musculoskeletal: muscle weakness, swelling Extremities: edema Neurological: nl mental status, nl speech Skin: nl turgor, rash or lesions Lymph: nl lymph nodes Results Result Diagram: 12/04/16 0531 12/04/16 0531 Results 24 hrs Laboratory Tests Test 12/03/16 12:00 12/03/16 17:25 12/03/16 21:21 12/04/16 05:31 Bedside Glucose 114 125 169 White Blood Count 10.9 H Red Blood Count 2.91 L Hemoglobin 8.6 L Hematocrit 28.7 L Mean Corpuscular Volume 98.6 Mean Corpuscular Hemoglobin 29.6 Mean Corpuscular Hemoglobin Concent 30.0 L Red Cell Distribution Width 22.1 H Platelet Count 314 Mean Platelet Volume 9.6 Neutrophils % 65.2 Lymphocytes % 11.8 L Monocytes % 16.8 H Eosinophils % 4.2 Basophils % 0.7 Nucleated Red Blood Cells % 0.3 H Neutrophils # 7.1 Lymphocytes # 1.3 Monocytes # 1.8 H Eosinophils # 0.5 Basophils # 0.1 Nucleated Red Blood Cells # 0.0 Sodium Level 144 Potassium Level 4.1 Chloride Level 96 L Carbon Dioxide Level 30 Anion Gap 22 H Blood Urea Nitrogen 44 H Creatinine 3.40 H Glucose Level 95 Calcium Level 10.0 Phosphorus Level 3.2 Magnesium Level 2.6 H Test 12/04/16 07:54 Bedside Glucose 75 Medications Medications Current Medications Amlodipine Besylate (Norvasc) 5 mg DAILY PO Last administered on 12/04/16 09: 02; Admin Dose 5 MG; Start 11/11/16 at 09:30 Apixaban (Eliquis) 5 mg BID PO Last administered on 12/01/16 20:36; Admin Dose 5 MG; Start 11/11/16 at 09:30; Status Future Hold Aspirin (Aspirin) 81 mg DAILY PO Last administered on 12/04/16 08:59; Admin Dose 81 MG; Start 11/11/16 at 09:30 Atorvastatin Calcium (Lipitor) 40 mg QHS PO Last administered on 12/03/16 21: 24; Admin Dose 40 MG; Start 11/11/16 at 21:00 Benzonatate (Tessalon) 100 mg Q6 PO Last administered on 12/04/16 05:45; Admin Dose 100 MG; Start 11/11/16 at 12:00 Carisoprodol (Soma) 350 mg Q8 PRN PO MUSCLE SPASMS Last administered on 09:36; Admin Dose 350 MG; Start 11/11/16 at 12:00 Cinacalcet (Sensipar) 30 mg DAILY PO Last administered on 12/04/16 09:01; Admin Dose 30 MG; Start 11/11/16 at 11:00 Furosemide (Lasix) 80 mg DAILY PO Last administered on 12/04/16 09:05; Admin Dose 80 MG; Start 11/11/16 at 09:30 Losartan Potassium (Cozaar) 50 mg BID PO Last administered on 12/04/16 09:06; Admin Dose 50 MG; Start 11/11/16 at 09:30 Metoprolol Succinate (Toprol Xl) 50 mg BID PO Last administered on 12/04/16 09 :00; Admin Dose 50 MG; Start 11/11/16 at 09:30 Montelukast Sodium (Singulair) 10 mg QAM PO Last administered on 12/04/16 09: 02; Admin Dose 10 MG; Start 11/11/16 at 11:00 Oxycodone/ Acetaminophen (Endocet (10/ 325)) 1 tab Q6 PRN PO PRN Last administered on 12/02/16 12:39; Admin Dose 1 TAB; Start 11/11/16 at 12:00 Pyridoxine HCl (Vitamin B6) 50 mg DAILY PO Last administered on 12/04/16 09:02 ; Admin Dose 50 MG; Start 11/11/16 at 09:30 Tiotropium [place] (Spiriva) 1 inh DAILY INH Last administered on 12/04/16 09: 06; Admin Dose 1 INH; Start 11/11/16 at 11:00 Ondansetron HCl (Zofran Tab) 4 mg Q6H PRN PO NAUSEA AND/OR VOMITING Last administered on 11/22/16 08:46; Admin Dose 4 MG; Start 11/11/16 at 10:00 Salmeterol Xinafoate/ Fluticasone (Advair 250/50 Diskus) 1 inh BID INH Last administered on 12/03/16 21:25; Admin Dose 1 INH; Start 11/11/16 at 11:00 Vancomycin HCl (Vanco Iv Per Pharmacy) PER PHARMACY DOSING NOTE XX ; Start 11/11 at 10:30; Stop 12/11/16 at 14:59 Albuterol (Ventolin Hfa) 2 puff Q4H PRN INH AOB Last administered on 11/25/16 12:06; Admin Dose 2 PUFF; Start 11/11/16 at 10:30 Epoetin Hang (Epogen (Esrd)) 10,000 units TuThSa@17 SC Last administered on 18:09; Admin Dose 10,000 UNITS; Start 11/11/16 at 17:00 Collagenase (Santyl) 1 applic DAILY TOP Last administered on 12/03/16 21:27; Admin Dose 1 APPLIC; Start 11/13/16 at 09:00 Diagnostic Test (Pha) (Accu-Chek) 1 ea 02 XX Last administered on 12/03/16 02: 14; Admin Dose 1 EA; Start 11/14/16 at 02:00 Insulin Detemir (Levemir) 35 unit QHS@20 SC Last administered on 12/03/16 21: 27; Admin Dose 35 UNIT; Start 11/14/16 at 20:00 Nicotine (Nicoderm 21 Mg/ 24hr) 1 patch DAILY TRANSDERM Last administered on 09:02; Admin Dose 1 PATCH; Start 11/14/16 at 20:00 Docusate Sodium (Colace) 100 mg Q12H PO Last administered on 12/03/16 21:24; Admin Dose 100 MG; Start 11/16/16 at 22:00 Miscellaneous Information 1 ea NOTE XX ; Start 11/17/16 at 11:30 Glucose (Glutose) 15 gm Q15M PRN PO DECREASED GLUCOSE; Start 11/17/16 at 11:30 Glucose (Glutose) 22.5 gm Q15M PRN PO DECREASED GLUCOSE; Start 11/17/16 at 11:30 Dextrose (D50w Syringe) 25 ml Q15M PRN IV DECREASED GLUCOSE; Start 11/17/16 at 11:30 Dextrose (D50w Syringe) 50 ml Q15M PRN IV DECREASED GLUCOSE; Start 11/17/16 at 11:30 Glucagon (Glucagen) 1 mg Q15M PRN IM DECREASED GLUCOSE; Start 11/17/16 at 11:30 Glucose (Glutose) 15 gm Q15M PRN BUCCAL DECREASED GLUCOSE; Start 11/17/16 at 11: 30 Polyethylene Glycol (Miralax) 17 gm BID PO Last administered on 12/03/16 21:24 ; Admin Dose 17 GM; Start 11/17/16 at 12:00 Bisacodyl (Dulcolax) 10 mg DAILY PRN PO CONSTIPATION; Start 11/17/16 at 11:30 Diltiazem HCl (Cardizem Cd) 120 mg BID PO Last administered on 12/04/16 09:02 ; Admin Dose 120 MG; Start 11/19/16 at 21:00 Zolpidem Tartrate (Ambien) 5 mg HS PRN PO INSOMNIA Last administered on 02:17; Admin Dose 5 MG; Start 11/19/16 at 21:30 Lorazepam (Ativan) 1 mg Q6H PRN IV AGITATION/ANXIETY Last administered on 22:13; Admin Dose 1 MG; Start 11/21/16 at 21:15 Guaifenesin/ Codeine Phosphate (Robitussin Ac Liquid Cup) 5 ml Q4H PRN PO COUGH Last administered on 12/02/16 11:29; Admin Dose 5 ML; Start 11/21/16 at 21 :30 Morphine Sulfate 2 mg 2 mg Q3H PRN IV for pain Last administered on 12/04/16 06:26; Admin Dose 2 MG; Start 11/24/16 at 18:30 Vancomycin HCl 250 ml @ 125 mls/hr Q96H IVPB Last administered on 12/03/16 18 :34; Admin Dose 125 MLS/HR; Start 11/25/16 at 15:00; Stop 12/11/16 at 14:59 Meropenem/Sodium Chloride (Merrem 500mg/50 ml(Pmx)) 50 ml @ 100 mls/hr Q24H IVPB Last administered on 12/03/16 17:49; Admin Dose 100 MLS/HR; Start at 16:00; Stop 12/11/16 at 15:59 Pantoprazole (Protonix Iv) 40 mg BID@06,18 IV Last administered on 12/04/16 05 :45; Admin Dose 40 MG; Start 12/02/16 at 18:00 Sucralfate (Carafate) 1 gm QID PO Last administered on 12/04/16 09:06; Admin Dose 1 GM; Start 12/03/16 at 17:00 JEWELS BOWERS NP Dec 04, 2016 09:26
[2016-12-04] MEDS: LORAZEPAM 2 MG INJ IV PRN ×2 (09:28→21:24)
[2016-12-04] MEDS: SALMETEROL/FLUTICASONE 250/50 INHA INH SCH ×2 (09:29→21:25)
[2016-12-04 14:00] VITALS: BP 134/72; RESP 20
--- NOTE | 2016-12-04 14:20 | CONS ---
Date/Time of Note Date/Time of Note DATE: 12/04/16 TIME: 14:19 Assessment/Plan Assessment/Plan Chief Complaint/Hosp Course No acute changes, alert, feels good, afebrile Indwelling's: Left upper extremity AV fistula Antimicrobials: Vancomycin, Merrem Physical examination: Morbidly obese well-developed, ill-appearing elderly woman in no distress. Head atraumatic, normocephalic. Sclerae nonicteric. Neck is obese. Chest rise symmetrical, breath sounds diminished basis. Heart S1-S2. Abdomen obese soft bowel tones present. Extremities with bilateral edema, patient has multiple lesions on her lower extremities erythema resolving, she has a left upper thigh wound VAC. ASSESSMENT: 1. Acute encephalopathy, likely toxic metabolic, improving 2. Bilateral lower extremities chronic venous stasis with chronic cellulitis and left hip wound, s/p debridement and wound vac application 10/19/16. 3. End-stage renal disease, on hemodialysis. 4. Morbid obesity. 5. Atrial fibrillation. 6. Healthcare associated pneumonia, possibly aspiration 7. Allergy: Penicillin, Cipro Plan: Remains stable, WBC decreasing, bilateral lower extremities wounds look better, continue antibiotics [facility] staff Problems: Consultation Date/Type/Reason Admit Date/Time Nov 11, 2016 at 06:40 Initial Consult Date 11/12/16 Type of Consultation: id Referring Provider: ERICK MATOS Exam/Review of Systems Vital Signs Vitals Vital Signs Date Time Temp Pulse Resp B/P Pulse Ox O2 Delivery O2 Flow Rate FiO2 12/04/16 08:00 97.7 70 18 133/64 92 12/04/16 06:51 2.0 12/03/16 14:33 Nasal Cannula Intake and Output 12/03/16 12/03/16 12/04/16 15:00 23:00 07:00 Intake Total 900 ml 240 ml Output Total 2500 ml Balance -1600 ml 240 ml Results Result Diagram: 12/04/16 0531 12/04/16 0531 Results 24 hrs Laboratory Tests Test 12/03/16 17:25 12/03/16 21:21 12/04/16 05:31 12/04/16 07:54 Bedside Glucose 125 169 75 White Blood Count 10.9 H Red Blood Count 2.91 L Hemoglobin 8.6 L Hematocrit 28.7 L Mean Corpuscular Volume 98.6 Mean Corpuscular Hemoglobin 29.6 Mean Corpuscular Hemoglobin Concent 30.0 L Red Cell Distribution Width 22.1 H Platelet Count 314 Mean Platelet Volume 9.6 Neutrophils % 65.2 Lymphocytes % 11.8 L Monocytes % 16.8 H Eosinophils % 4.2 Basophils % 0.7 Nucleated Red Blood Cells % 0.3 H Neutrophils # 7.1 Lymphocytes # 1.3 Monocytes # 1.8 H Eosinophils # 0.5 Basophils # 0.1 Nucleated Red Blood Cells # 0.0 Sodium Level 144 Potassium Level 4.1 Chloride Level 96 L Carbon Dioxide Level 30 Anion Gap 22 H Blood Urea Nitrogen 44 H Creatinine 3.40 H Glucose Level 95 Calcium Level 10.0 Phosphorus Level 3.2 Magnesium Level 2.6 H Test 12/04/16 11:39 Bedside Glucose 70 Medications Medications Current Medications Amlodipine Besylate (Norvasc) 5 mg DAILY PO Last administered on 12/04/16 09: 02; Admin Dose 5 MG; Start 11/11/16 at 09:30 Apixaban (Eliquis) 5 mg BID PO Last administered on 12/01/16 20:36; Admin Dose 5 MG; Start 11/11/16 at 09:30; Status Future Hold Aspirin (Aspirin) 81 mg DAILY PO Last administered on 12/04/16 08:59; Admin Dose 81 MG; Start 11/11/16 at 09:30 Atorvastatin Calcium (Lipitor) 40 mg QHS PO Last administered on 12/03/16 21: 24; Admin Dose 40 MG; Start 11/11/16 at 21:00 Benzonatate (Tessalon) 100 mg Q6 PO Last administered on 12/04/16 12:10; Admin Dose 100 MG; Start 11/11/16 at 12:00 Carisoprodol (Soma) 350 mg Q8 PRN PO MUSCLE SPASMS Last administered on 09:36; Admin Dose 350 MG; Start 11/11/16 at 12:00 Cinacalcet (Sensipar) 30 mg DAILY PO Last administered on 12/04/16 09:01; Admin Dose 30 MG; Start 11/11/16 at 11:00 Furosemide (Lasix) 80 mg DAILY PO Last administered on 12/04/16 09:05; Admin Dose 80 MG; Start 11/11/16 at 09:30 Losartan Potassium (Cozaar) 50 mg BID PO Last administered on 12/04/16 09:06; Admin Dose 50 MG; Start 11/11/16 at 09:30 Metoprolol Succinate (Toprol Xl) 50 mg BID PO Last administered on 12/04/16 09 :00; Admin Dose 50 MG; Start 11/11/16 at 09:30 Montelukast Sodium (Singulair) 10 mg QAM PO Last administered on 12/04/16 09: 02; Admin Dose 10 MG; Start 11/11/16 at 11:00 Oxycodone/ Acetaminophen (Endocet (10 325)) 1 tab Q6 PRN PO PRN Last administered on 12/02/16 12:39; Admin Dose 1 TAB; Start 11/11/16 at 12:00 Pyridoxine HCl (Vitamin B6) 50 mg DAILY PO Last administered on 12/04/16 09:02 ; Admin Dose 50 MG; Start 11/11/16 at 09:30 Tiotropium [place] (Spiriva) 1 inh DAILY INH Last administered on 12/04/16 09: 06; Admin Dose 1 INH; Start 11/11/16 at 11:00 Ondansetron HCl (Zofran Tab) 4 mg Q6H PRN PO NAUSEA AND/OR VOMITING Last administered on 11/22/16 08:46; Admin Dose 4 MG; Start 11/11/16 at 10:00 Salmeterol Xinafoate/ Fluticasone (Advair 250/50 Diskus) 1 inh BID INH Last administered on 12/04/16 09:29; Admin Dose 1 INH; Start 11/11/16 at 11:00 Vancomycin HCl (Vanco Iv Per Pharmacy) PER PHARMACY DOSING NOTE XX ; Start 11/11 at 10:30; Stop 12/11/16 at 14:59 Albuterol (Ventolin Hfa) 2 puff Q4H PRN INH AOB Last administered on 11/25/16 12:06; Admin Dose 2 PUFF; Start 11/11/16 at 10:30 Epoetin Hang (Epogen (Esrd)) 10,000 units TuThSa@17 SC Last administered on 18:09; Admin Dose 10,000 UNITS; Start 11/11/16 at 17:00 Collagenase (Santyl) 1 applic DAILY TOP Last administered on 12/03/16 21:27; Admin Dose 1 APPLIC; Start 11/13/16 at 09:00 Diagnostic Test (Pha) (Accu-Chek) 1 ea 02 XX Last administered on 12/03/16 02: 14; Admin Dose 1 EA; Start 11/14/16 at 02:00 Insulin Detemir (Levemir) 35 unit QHS@20 SC Last administered on 12/03/16 21: 27; Admin Dose 35 UNIT; Start 11/14/16 at 20:00 Nicotine (Nicoderm 21 Mg/ 24hr) 1 patch DAILY TRANSDERM Last administered on 09:02; Admin Dose 1 PATCH; Start 11/14/16 at 20:00 Docusate Sodium (Colace) 100 mg Q12H PO Last administered on 12/03/16 21:24; Admin Dose 100 MG; Start 11/16/16 at 22:00 Miscellaneous Information 1 ea NOTE XX ; Start 11/17/16 at 11:30 Glucose (Glutose) 15 gm Q15M PRN PO DECREASED GLUCOSE; Start 11/17/16 at 11:30 Glucose (Glutose) 22.5 gm Q15M PRN PO DECREASED GLUCOSE; Start 11/17/16 at 11:30 Dextrose (D50w Syringe) 25 ml Q15M PRN IV DECREASED GLUCOSE; Start 11/17/16 at 11:30 Dextrose (D50w Syringe) 50 ml Q15M PRN IV DECREASED GLUCOSE; Start 11/17/16 at 11:30 Glucagon (Glucagen) 1 mg Q15M PRN IM DECREASED GLUCOSE; Start 11/17/16 at 11:30 Glucose (Glutose) 15 gm Q15M PRN BUCCAL DECREASED GLUCOSE; Start 11/17/16 at 11: 30 Polyethylene Glycol (Miralax) 17 gm BID PO Last administered on 12/03/16 21:24 ; Admin Dose 17 GM; Start 11/17/16 at 12:00 Bisacodyl (Dulcolax) 10 mg DAILY PRN PO CONSTIPATION; Start 11/17/16 at 11:30 Diltiazem HCl (Cardizem Cd) 120 mg BID PO Last administered on 12/04/16 09:02 ; Admin Dose 120 MG; Start 11/19/16 at 21:00 Zolpidem Tartrate (Ambien) 5 mg HS PRN PO INSOMNIA Last administered on 02:17; Admin Dose 5 MG; Start 11/19/16 at 21:30 Lorazepam (Ativan) 1 mg Q6H PRN IV AGITATION/ANXIETY Last administered on 09:28; Admin Dose 1 MG; Start 11/21/16 at 21:15 Guaifenesin/ Codeine Phosphate (Robitussin Ac Liquid Cup) 5 ml Q4H PRN PO COUGH Last administered on 12/02/16 11:29; Admin Dose 5 ML; Start 11/21/16 at 21 :30 Morphine Sulfate 2 mg 2 mg Q3H PRN IV for pain Last administered on 12/04/16 06:26; Admin Dose 2 MG; Start 11/24/16 at 18:30 Vancomycin HCl 250 ml @ 125 mls/hr Q96H IVPB Last administered on 12/03/16 18 :34; Admin Dose 125 MLS/HR; Start 11/25/16 at 15:00; Stop 12/11/16 at 14:59 Meropenem/Sodium Chloride (Merrem 500mg/50 ml(Pmx)) 50 ml @ 100 mls/hr Q24H IVPB Last administered on 12/03/16 17:49; Admin Dose 100 MLS/HR; Start at 16:00; Stop 12/11/16 at 15:59 Pantoprazole (Protonix Iv) 40 mg BID@06,18 IV Last administered on 12/04/16 05 :45; Admin Dose 40 MG; Start 12/02/16 at 18:00 Sucralfate (Carafate) 1 gm QID PO Last administered on 12/04/16 12:10; Admin Dose 1 GM; Start 12/03/16 at 17:00 TODD RAMIRES NP Dec 04, 2016 14:20
--- NOTE | 2016-12-04 14:23 | PN ---
Date/Time of Note Date/Time of Note DATE: 12/04/16 TIME: 14:16 Assessment/Plan VTE Prophylaxis VTE Prophylaxis Intervention: SCD's Lines/Catheters IV Catheter Type (from Nrs): Saline Lock Urinary Cath still in place: No Assessment/Plan Chief Complaint/Hosp Course Patient is a 61-year-old female with past history of end-stage renal disease, diabetes, hypertension and obesity presents to [facility] 4 grown falls at home found to have ulcers and pneumonia. Assessment Debility Left lower extremity thigh area ulcer, with wound VAC GI bleed gastritis Diabetes type 2 End-stage renal disease, on dialysis Pneumonia Obesity Dyslipidemia Diabetic foot ulcers Bilateral lower extremity chronic venous stasis ulcers Chronic cellulitis Left hip wound Coronary artery disease Hypertension Atrial fibrillation Lower extremity edema Insomnia Plan -protonix bid per GI, EGD showed gastritis -Patient has multiple medical conditions, continue vancomycin and meropenem for left hip wound, for total of 14 days per ID, 3 more days -continue home medications as able -Patient will likely need long term, pending placement at this time, disposition issue with placement. -As needed medications for pain -Wound care ordered, vascular surgery saw patient yesterday for worsening R hip wound, spoke to patient about importance of santyl tx. -Wound VAC care ordered. Stefan Munson DO Problems: Subjective 24 Hr Interval Summary Free Text/Dictation no acute complaints, however appears to have dementia which makes it difficult to reason with patient. Exam/Review of Systems Vital Signs Vitals Vital Signs Date Time Temp Pulse Resp B/P Pulse Ox O2 Delivery O2 Flow Rate FiO2 12/04/16 08:00 97.7 70 18 133/64 92 12/04/16 06:51 2.0 12/03/16 14:33 Nasal Cannula Intake and Output 12/03/16 12/03/16 12/04/16 15:00 23:00 07:00 Intake Total 900 ml 240 ml Output Total 2500 ml Balance -1600 ml 240 ml Exam Physical exam General: Patient is laying in bed and answers questions appropriately Mentation: Patient is alert and oriented 4, Head: Normocephalic atraumatic Eyes: EOMI, pupils reactive to light Neck: Supple, nontender, midline Respiratory:mildly course to auscultation bilaterally Cardiovascular: regular rate, no obvious murmurs Gastrointestinal: non-tender to palpation, bowel sounds heard. Neurological: Moves all extremities spontaneously Skin: multiple skin lesions on body. L hip wound with wound vac. multiple LE ulcerations Results Result Diagram: 12/04/16 0531 12/04/16 0531 Results 24 hrs Laboratory Tests Test 12/03/16 17:25 12/03/16 21:21 12/04/16 05:31 12/04/16 07:54 Bedside Glucose 125 169 75 White Blood Count 10.9 H Red Blood Count 2.91 L Hemoglobin 8.6 L Hematocrit 28.7 L Mean Corpuscular Volume 98.6 Mean Corpuscular Hemoglobin 29.6 Mean Corpuscular Hemoglobin Concent 30.0 L Red Cell Distribution Width 22.1 H Platelet Count 314 Mean Platelet Volume 9.6 Neutrophils % 65.2 Lymphocytes % 11.8 L Monocytes % 16.8 H Eosinophils % 4.2 Basophils % 0.7 Nucleated Red Blood Cells % 0.3 H Neutrophils # 7.1 Lymphocytes # 1.3 Monocytes # 1.8 H Eosinophils # 0.5 Basophils # 0.1 Nucleated Red Blood Cells # 0.0 Sodium Level 144 Potassium Level 4.1 Chloride Level 96 L Carbon Dioxide Level 30 Anion Gap 22 H Blood Urea Nitrogen 44 H Creatinine 3.40 H Glucose Level 95 Calcium Level 10.0 Phosphorus Level 3.2 Magnesium Level 2.6 H Test 12/04/16 11:39 Bedside Glucose 70 Medications Medications Current Medications Amlodipine Besylate (Norvasc) 5 mg DAILY PO Last administered on 12/04/16 09: 02; Admin Dose 5 MG; Start 11/11/16 at 09:30 Apixaban (Eliquis) 5 mg BID PO Last administered on 12/01/16 20:36; Admin Dose 5 MG; Start 11/11/16 at 09:30; Status Future Hold Aspirin (Aspirin) 81 mg DAILY PO Last administered on 12/04/16 08:59; Admin Dose 81 MG; Start 11/11/16 at 09:30 Atorvastatin Calcium (Lipitor) 40 mg QHS PO Last administered on 12/03/16 21: 24; Admin Dose 40 MG; Start 11/11/16 at 21:00 Benzonatate (Tessalon) 100 mg Q6 PO Last administered on 12/04/16 12:10; Admin Dose 100 MG; Start 11/11/16 at 12:00 Carisoprodol (Soma) 350 mg Q8 PRN PO MUSCLE SPASMS Last administered on 09:36; Admin Dose 350 MG; Start 11/11/16 at 12:00 Cinacalcet (Sensipar) 30 mg DAILY PO Last administered on 12/04/16 09:01; Admin Dose 30 MG; Start 11/11/16 at 11:00 Furosemide (Lasix) 80 mg DAILY PO Last administered on 12/04/16 09:05; Admin Dose 80 MG; Start 11/11/16 at 09:30 Losartan Potassium (Cozaar) 50 mg BID PO Last administered on 12/04/16 09:06; Admin Dose 50 MG; Start 11/11/16 at 09:30 Metoprolol Succinate (Toprol Xl) 50 mg BID PO Last administered on 12/04/16 09 :00; Admin Dose 50 MG; Start 11/11/16 at 09:30 Montelukast Sodium (Singulair) 10 mg QAM PO Last administered on 12/04/16 09: 02; Admin Dose 10 MG; Start 11/11/16 at 11:00 Oxycodone/ Acetaminophen (Endocet (10/ 325)) 1 tab Q6 PRN PO PRN Last administered on 12/02/16 12:39; Admin Dose 1 TAB; Start 11/11/16 at 12:00 Pyridoxine HCl (Vitamin B6) 50 mg DAILY PO Last administered on 12/04/16 09:02 ; Admin Dose 50 MG; Start 11/11/16 at 09:30 Tiotropium [place] (Spiriva) 1 inh DAILY INH Last administered on 12/04/16 09: 06; Admin Dose 1 INH; Start 11/11/16 at 11:00 Ondansetron HCl (Zofran Tab) 4 mg Q6H PRN PO NAUSEA AND/OR VOMITING Last administered on 11/22/16 08:46; Admin Dose 4 MG; Start 11/11/16 at 10:00 Salmeterol Xinafoate/ Fluticasone (Advair 250/50 Diskus) 1 inh BID INH Last administered on 12/04/16 09:29; Admin Dose 1 INH; Start 11/11/16 at 11:00 Vancomycin HCl (Vanco Iv Per Pharmacy) PER PHARMACY DOSING NOTE XX ; Start 11/11 at 10:30; Stop 12/11/16 at 14:59 Albuterol (Ventolin Hfa) 2 puff Q4H PRN INH AOB Last administered on 11/25/16 12:06; Admin Dose 2 PUFF; Start 11/11/16 at 10:30 Epoetin Hang (Epogen (Esrd)) 10,000 units TuThSa@17 SC Last administered on 18:09; Admin Dose 10,000 UNITS; Start 11/11/16 at 17:00 Collagenase (Santyl) 1 applic DAILY TOP Last administered on 12/03/16 21:27; Admin Dose 1 APPLIC; Start 11/13/16 at 09:00 Diagnostic Test (Pha) (Accu-Chek) 1 ea 02 XX Last administered on 12/03/16 02: 14; Admin Dose 1 EA; Start 11/14/16 at 02:00 Insulin Detemir (Levemir) 35 unit QHS@20 SC Last administered on 12/03/16 21: 27; Admin Dose 35 UNIT; Start 11/14/16 at 20:00 Nicotine (Nicoderm 21 Mg/ 24hr) 1 patch DAILY TRANSDERM Last administered on 09:02; Admin Dose 1 PATCH; Start 11/14/16 at 20:00 Docusate Sodium (Colace) 100 mg Q12H PO Last administered on 12/03/16 21:24; Admin Dose 100 MG; Start 11/16/16 at 22:00 Miscellaneous Information 1 ea NOTE XX ; Start 11/17/16 at 11:30 Glucose (Glutose) 15 gm Q15M PRN PO DECREASED GLUCOSE; Start 11/17/16 at 11:30 Glucose (Glutose) 22.5 gm Q15M PRN PO DECREASED GLUCOSE; Start 11/17/16 at 11:30 Dextrose (D50w Syringe) 25 ml Q15M PRN IV DECREASED GLUCOSE; Start 11/17/16 at 11:30 Dextrose (D50w Syringe) 50 ml Q15M PRN IV DECREASED GLUCOSE; Start 11/17/16 at 11:30 Glucagon (Glucagen) 1 mg Q15M PRN IM DECREASED GLUCOSE; Start 11/17/16 at 11:30 Glucose (Glutose) 15 gm Q15M PRN BUCCAL DECREASED GLUCOSE; Start 11/17/16 at 11: 30 Polyethylene Glycol (Miralax) 17 gm BID PO Last administered on 12/03/16 21:24 ; Admin Dose 17 GM; Start 11/17/16 at 12:00 Bisacodyl (Dulcolax) 10 mg DAILY PRN PO CONSTIPATION; Start 11/17/16 at 11:30 Diltiazem HCl (Cardizem Cd) 120 mg BID PO Last administered on 12/04/16 09:02 ; Admin Dose 120 MG; Start 11/19/16 at 21:00 Zolpidem Tartrate (Ambien) 5 mg HS PRN PO INSOMNIA Last administered on 02:17; Admin Dose 5 MG; Start 11/19/16 at 21:30 Lorazepam (Ativan) 1 mg Q6H PRN IV AGITATION/ANXIETY Last administered on 09:28; Admin Dose 1 MG; Start 11/21/16 at 21:15 Guaifenesin/ Codeine Phosphate (Robitussin Ac Liquid Cup) 5 ml Q4H PRN PO COUGH Last administered on 12/02/16 11:29; Admin Dose 5 ML; Start 11/21/16 at 21 :30 Morphine Sulfate 2 mg 2 mg Q3H PRN IV for pain Last administered on 12/04/16 06:26; Admin Dose 2 MG; Start 11/24/16 at 18:30 Vancomycin HCl 250 ml @ 125 mls/hr Q96H IVPB Last administered on 12/03/16 18 :34; Admin Dose 125 MLS/HR; Start 11/25/16 at 15:00; Stop 12/11/16 at 14:59 Meropenem/Sodium Chloride (Merrem 500mg/50 ml(Pmx)) 50 ml @ 100 mls/hr Q24H IVPB Last administered on 12/03/16 17:49; Admin Dose 100 MLS/HR; Start at 16:00; Stop 12/11/16 at 15:59 Pantoprazole (Protonix Iv) 40 mg BID@06,18 IV Last administered on 12/04/16 05 :45; Admin Dose 40 MG; Start 12/02/16 at 18:00 Sucralfate (Carafate) 1 gm QID PO Last administered on 12/04/16 12:10; Admin Dose 1 GM; Start 12/03/16 at 17:00 STEFAN MUNSON Dec 04, 2016 14:23
[2016-12-04] MEDS: MEROPENEM 500MG/50 ML (PMX) 50 ML IVPB SCH (16:56)
[2016-12-04] MEDS: EPOETIN 10000 UNITS/1 ML INJ (ESRD) SC SCH (16:57)
[2016-12-04 20:00] VITALS: BP 136/60; RESP 20
[2016-12-04] MEDS: ATORVASTATIN 40 MG TAB PO SCH (21:24)
[2016-12-04] MEDS: INSULIN DETEMIR [LEVEMIR] 3ML CART SC SCH (21:27)
[2016-12-05 02:00] VITALS: BP 135/65; RESP 20
[2016-12-05] MEDS: ACCU-CHEK XX SCH (02:00)
[2016-12-05] MEDS: LORAZEPAM 2 MG INJ IV PRN ×2 (03:49→20:51)
[2016-12-05] MEDS: PANTOPRAZOLE 40 MG INJ IV SCH ×2 (05:24→17:30)
[2016-12-05] MEDS: BENZONATATE 100 MG CAP PO SCH ×3 (05:24→17:30)
[2016-12-05] MEDS: METOCLOPRAMIDE 5 MG TAB PO SCH ×3 (08:15→17:30)
[2016-12-05] MEDS: INSULIN ASPART [NOVOLOG] 3 ML PEN SC SCH ×4 (08:16→21:00)
[2016-12-05] MEDS: POLYETHYLENE GLYCOL 17 GM PACKET PO SCH ×2 (09:00→20:47)
[2016-12-05 09:10] VITALS: BP 117/59; RESP 18
[2016-12-05] MEDS: TIOTROPIUM 18 MCG CAPSULE INHA DEV INH SCH (09:26)
[2016-12-05] MEDS: SALMETEROL/FLUTICASONE 250/50 INHA INH SCH ×2 (09:26→20:35)
[2016-12-05] MEDS: SUCRALFATE 1 GM TAB PO SCH ×4 (09:27→20:36)
[2016-12-05] MEDS: ASPIRIN 81 MG TAB PO SCH (09:27)
[2016-12-05] MEDS: DILTIAZEM (CD) 120 MG CAP PO SCH ×2 (09:27→20:36)
[2016-12-05] MEDS: FUROSEMIDE 40 MG TAB PO SCH (09:28)
[2016-12-05] MEDS: MONTELUKAST 10 MG TAB PO SCH (09:29)
[2016-12-05] MEDS: NICOTINE (21 MG/24 HR) PATCH TRANSDERM SCH (09:29)
[2016-12-05] MEDS: PYRIDOXINE 50 MG TAB PO SCH (09:29)
[2016-12-05] MEDS: CINACALCET 30 MG TAB PO SCH (09:29)
[2016-12-05] MEDS: COLLAGENASE 30 GM TUBE TOP SCH (09:31)
[2016-12-05] MEDS: AMLODIPINE 5 MG TAB PO SCH (09:31)
--- NOTE | 2016-12-05 09:37 | PN ---
Date/Time of Note Date/Time of Note DATE: 12/05/16 TIME: 09:35 Assessment/Plan VTE Prophylaxis VTE Prophylaxis Intervention: heparin Lines/Catheters IV [facility] Type (from [facility] Saline Lock Urinary Cath still in place: No Assessment/Plan Assessment/Plan Assessment * Anemia EGD Erosive esophagitis proximal displacement EG junction R/O Land esophagus hiatal hernia erosive gastritis * ESRD on hemodialysis MWF * Morbid obesity * Diabetes mellitus * Hypertension * Cellulitis left lower extremity * Pneumonia Plan * await biopsy result * continue present management * Protonix 40 mg BID * Case discussed with Dr Trujillo * Further orders will depend on clinical course Subjective 24 Hr Interval Summary Free Text/Dictation * course reviewed with RN * Patient seen and examined * No untoward events overnight Exam/Review of Systems Vital Signs Vitals Vital Signs Date Time Temp Pulse Resp B/P Pulse Ox O2 Delivery O2 Flow Rate FiO2 12/05/16 09:10 98.3 74 18 117/59 95 12/04/16 20:20 4.0 12/03/16 14:33 Nasal Cannula Intake and Output 12/04/16 12/04/16 12/05/16 15:00 23:00 07:00 Intake Total 100 ml 840 ml Balance 100 ml 840 ml Exam Constitutional: alert, frail Neck: non-tender, supple Respiratory: clear to auscultation, normal air movement Cardiovascular: nl pulses, regular rate and rhythm Gastrointestinal: non-tender, soft Musculoskeletal: muscle weakness Extremities: edema Neurological: nl speech, nl strength Skin: rash or lesions Lymph: nl lymph nodes Results Result Diagram: 12/04/1631 12/04/16530 Results 24 hrs Laboratory Tests Test 12/04/16 11:39 12/04/16 17:09 12/04/16 21:23 12/05/16 07:56 Bedside Glucose 70 132 177 192 Medications Medications Current Medications Amlodipine Besylate (Norvasc) 5 mg DAILY PO Last administered on 12/04/16 09: 02; Admin Dose 5 MG; Start 11/11/16 at 09:30 Apixaban (Eliquis) 5 mg BID PO Last administered on 12/01/16 20:36; Admin Dose 5 MG; Start 11/11/16 at 09:30; Status Future Hold Aspirin (Aspirin) 81 mg DAILY PO Last administered on 12/04/16 08:59; Admin Dose 81 MG; Start 11/11/16 at 09:30 Atorvastatin Calcium (Lipitor) 40 mg QHS PO Last administered on 12/04/16 21: 24; Admin Dose 40 MG; Start 11/11/16 at 21:00 Benzonatate (Tessalon) 100 mg Q6 PO Last administered on 12/05/16 05:24; Admin Dose 100 MG; Start 11/11/16 at 12:00 Carisoprodol (Soma) 350 mg Q8 PRN PO MUSCLE SPASMS Last administered on 09:36; Admin Dose 350 MG; Start 11/11/16 at 12:00 Cinacalcet (Sensipar) 30 mg DAILY PO Last administered on 12/04/16 09:01; Admin Dose 30 MG; Start 11/11/16 at 11:00 Furosemide (Lasix) 80 mg DAILY PO Last administered on 12/04/16 09:05; Admin Dose 80 MG; Start 11/11/16 at 09:30 Losartan Potassium (Cozaar) 50 mg BID PO Last administered on 12/04/16 21:25; Admin Dose 50 MG; Start 11/11/16 at 09:30 Metoprolol Succinate (Toprol Xl) 50 mg BID PO Last administered on 12/04/16 21 :25; Admin Dose 50 MG; Start 11/11/16 at 09:30 Montelukast Sodium (Singulair) 10 mg QAM PO Last administered on 12/04/16 09: 02; Admin Dose 10 MG; Start 11/11/16 at 11:00 Oxycodone/ Acetaminophen (Endocet (10/ 325)) 1 tab Q6 PRN PO PRN Last administered on 12/02/16 12:39; Admin Dose 1 TAB; Start 11/11/16 at 12:00 Pyridoxine HCl (Vitamin B6) 50 mg DAILY PO Last administered on 12/04/16 09:02 ; Admin Dose 50 MG; Start 11/11/16 at 09:30 Tiotropium [place] (Spiriva) 1 inh DAILY INH Last administered on 12/04/16 09: 06; Admin Dose 1 INH; Start 11/11/16 at 11:00 Ondansetron HCl (Zofran Tab) 4 mg Q6H PRN PO NAUSEA AND/OR VOMITING Last administered on 11/22/16 08:46; Admin Dose 4 MG; Start 11/11/16 at 10:00 Salmeterol Xinafoate/ Fluticasone (Advair 250/50 Diskus) 1 inh BID INH Last administered on 12/04/16 21:25; Admin Dose 1 INH; Start 11/11/16 at 11:00 Vancomycin HCl (Vanco Iv Per Pharmacy) PER PHARMACY DOSING NOTE XX ; Start 11/11 at 10:30; Stop 12/11/16 at 14:59 Albuterol (Ventolin Hfa) 2 puff Q4H PRN INH AOB Last administered on 11/25/16 12:06; Admin Dose 2 PUFF; Start 11/11/16 at 10:30 Epoetin Hang (Epogen (Esrd)) 10,000 units TuThSa@17 SC Last administered on 16:57; Admin Dose 10,000 UNITS; Start 11/11/16 at 17:00 Collagenase (Santyl) 1 applic DAILY TOP Last administered on 12/03/16 21:27; Admin Dose 1 APPLIC; Start 11/13/16 at 09:00 Diagnostic Test (Pha) (Accu-Chek) 1 ea 02 XX Last administered on 12/03/16 02: 14; Admin Dose 1 EA; Start 11/14/16 at 02:00 Insulin Detemir (Levemir) 35 unit QHS@20 SC Last administered on 12/04/16 21: 27; Admin Dose 35 UNIT; Start 11/14/16 at 20:00 Nicotine (Nicoderm 21 Mg/ 24hr) 1 patch DAILY TRANSDERM Last administered on 09:02; Admin Dose 1 PATCH; Start 11/14/16 at 20:00 Docusate Sodium (Colace) 100 mg Q12H PO Last administered on 12/04/16 21:26; Admin Dose 100 MG; Start 11/16/16 at 22:00 Miscellaneous Information 1 ea NOTE XX ; Start 11/17/16 at 11:30 Glucose (Glutose) 15 gm Q15M PRN PO DECREASED GLUCOSE; Start 11/17/16 at 11:30 Glucose (Glutose) 22.5 gm Q15M PRN PO DECREASED GLUCOSE; Start 11/17/16 at 11:30 Dextrose (D50w Syringe) 25 ml Q15M PRN IV DECREASED GLUCOSE; Start 11/17/16 at 11:30 Dextrose (D50w Syringe) 50 ml Q15M PRN IV DECREASED GLUCOSE; Start 11/17/16 at 11:30 Glucagon (Glucagen) 1 mg Q15M PRN IM DECREASED GLUCOSE; Start 11/17/16 at 11:30 Glucose (Glutose) 15 gm Q15M PRN BUCCAL DECREASED GLUCOSE; Start 11/17/16 at 11: 30 Polyethylene Glycol (Miralax) 17 gm BID PO Last administered on 12/04/16 21:28 ; Admin Dose 17 GM; Start 11/17/16 at 12:00 Bisacodyl (Dulcolax) 10 mg DAILY PRN PO CONSTIPATION; Start 11/17/16 at 11:30 Diltiazem HCl (Cardizem Cd) 120 mg BID PO Last administered on 12/04/16 21:26 ; Admin Dose 120 MG; Start 11/19/16 at 21:00 Zolpidem Tartrate (Ambien) 5 mg HS PRN PO INSOMNIA Last administered on 02:17; Admin Dose 5 MG; Start 11/19/16 at 21:30 Lorazepam (Ativan) 1 mg Q6H PRN IV AGITATION/ANXIETY Last administered on 03:49; Admin Dose 1 MG; Start 11/21/16 at 21:15 Guaifenesin/ Codeine Phosphate (Robitussin Ac Liquid Cup) 5 ml Q4H PRN PO COUGH Last administered on 12/02/16 11:29; Admin Dose 5 ML; Start 11/21/16 at 21 :30 Morphine Sulfate 2 mg 2 mg Q3H PRN IV for pain Last administered on 12/04/16 06:26; Admin Dose 2 MG; Start 11/24/16 at 18:30 Vancomycin HCl 250 ml @ 125 mls/hr Q96H IVPB Last administered on 12/03/16 18 :34; Admin Dose 125 MLS/HR; Start 11/25/16 at 15:00; Stop 12/11/16 at 14:59 Meropenem/Sodium Chloride (Merrem 500mg/50 ml(Pmx)) 50 ml @ 100 mls/hr Q24H IVPB Last administered on 12/04/16 16:56; Admin Dose 100 MLS/HR; Start at 16:00; Stop 12/11/16 at 15:59 Pantoprazole (Protonix Iv) 40 mg BID@06,18 IV Last administered on 12/05/16 05 :24; Admin Dose 40 MG; Start 12/02/16 at 18:00 Sucralfate (Carafate) 1 gm QID PO Last administered on 12/04/16 21:25; Admin Dose 1 GM; Start 12/03/16 at 17:00 JEWELS BOWERS NP Dec 05, 2016 09:37
[2016-12-05] MEDS: DOCUSATE SODIUM 100 MG CAP PO SCH ×2 (10:00→22:00)
[2016-12-05 11:43] VITALS: BP 137/74; PULSE 66; RESP 18
[2016-12-05] MEDS: LOSARTAN 50 MG TAB PO SCH ×2 (11:44→20:36)
[2016-12-05] MEDS: METOPROLOL (XL) 50 MG TAB PO SCH ×2 (11:44→20:37)
[2016-12-05] MEDS: morphine 2 MG INJ IV PRN (11:45)
[2016-12-05] MEDS: CALCIUM ACETATE 667 MG CAP PO SCH ×2 (11:45→17:30)
--- NOTE | 2016-12-05 14:13 | PN ---
Date/Time of Note Date/Time of Note DATE: 12/05/16 TIME: 14:10 Assessment/Plan VTE Prophylaxis VTE Prophylaxis Intervention: SCD's Lines/Catheters IV Catheter Type (from Nrs): Saline Lock Urinary Cath still in place: No Assessment/Plan Chief Complaint/Hosp Course Patient is a 61-year-old female with past history of end-stage renal disease, diabetes, hypertension and obesity presents to [facility] 4 grown falls at home found to have ulcers and pneumonia. Assessment Debility Left lower extremity thigh area ulcer, with wound VAC GI bleed gastritis Diabetes type 2 End-stage renal disease, on dialysis Pneumonia Obesity Dyslipidemia Diabetic foot ulcers Bilateral lower extremity chronic venous stasis ulcers Chronic cellulitis Left hip wound Coronary artery disease Hypertension Atrial fibrillation Lower extremity edema Insomnia Plan -protonix bid per GI, EGD showed gastritis, holding eliquis for now, will consider restarting in a few days upon approval of GI. -Patient has multiple medical conditions, continue vancomycin and meropenem for left hip wound, for total of 14 days per ID, 2 more days -Patient refusing wound care for wound vac. Also patient routinely refusing wound care on R hip, when seen by vascular surgeon 2 days ago, needed santyl which patient intermittently refuses. explained to patient the need for wound care. -continue home medications as able -Patient will likely need senior living, pending placement at this time, disposition issue with placement. -As needed medications for pain -Wound care ordered -Wound VAC care ordered. Stefan Munson DO Problems: Subjective 24 Hr Interval Summary Free Text/Dictation patient states she has been changing her wound vac. According to nurse, patient does not let staff change her wound vac. explained to patient the importance of changing wound vac. Exam/Review of Systems Vital Signs Vitals Vital Signs Date Time Temp Pulse Resp B/P Pulse Ox O2 Delivery O2 Flow Rate FiO2 12/05/16 11:43 66 18 137/74 12/05/16 09:10 98.3 95 12/05/16 08:00 Nasal Cannula 2.0 Intake and Output 12/04/16 12/04/16 12/05/16 15:00 23:00 07:00 Intake Total 100 ml 840 ml Balance 100 ml 840 ml Exam Physical exam General: Patient is laying in bed and answers questions appropriately Mentation: Patient is alert and oriented 4, Head: Normocephalic atraumatic Eyes: EOMI, pupils reactive to light Neck: Supple, nontender, midline Respiratory:mildly course to auscultation bilaterally Cardiovascular: regular rate, no obvious murmurs Gastrointestinal: non-tender to palpation, bowel sounds heard. Neurological: Moves all extremities spontaneously Skin: multiple skin lesions on body. L hip wound with wound vac. multiple LE ulcerations. blackened skin on R hip wound. Results Result Diagram: 12/04/1653012/04/16 0531 Results 24 hrs Laboratory Tests Test 12/04/16 17:09 12/04/16 21:23 12/05/16 07:56 12/05/16 12:04 Bedside Glucose 132 177 192 130 Medications Medications Current Medications Amlodipine Besylate (Norvasc) 5 mg DAILY PO Last administered on 12/05/16 09: 31; Admin Dose 5 MG; Start 11/11/16 at 09:30 Apixaban (Eliquis) 5 mg BID PO Last administered on 12/01/16 20:36; Admin Dose 5 MG; Start 11/11/16 at 09:30; Status Future Hold Aspirin (Aspirin) 81 mg DAILY PO Last administered on 12/05/16 09:27; Admin Dose 81 MG; Start 11/11/16 at 09:30 Atorvastatin Calcium (Lipitor) 40 mg QHS PO Last administered on 12/04/16 21: 24; Admin Dose 40 MG; Start 11/11/16 at 21:00 Benzonatate (Tessalon) 100 mg Q6 PO Last administered on 12/05/16 11:45; Admin Dose 100 MG; Start 11/11/16 at 12:00 Carisoprodol (Soma) 350 mg Q8 PRN PO MUSCLE SPASMS Last administered on 09:36; Admin Dose 350 MG; Start 11/11/16 at 12:00 Cinacalcet (Sensipar) 30 mg DAILY PO Last administered on 12/05/16 09:29; Admin Dose 30 MG; Start 11/11/16 at 11:00 Furosemide (Lasix) 80 mg DAILY PO Last administered on 12/05/16 09:28; Admin Dose 80 MG; Start 11/11/16 at 09:30 Losartan Potassium (Cozaar) 50 mg BID PO Last administered on 12/05/16 11:44; Admin Dose 50 MG; Start 11/11/16 at 09:30 Metoprolol Succinate (Toprol Xl) 50 mg BID PO Last administered on 12/05/16 11 :44; Admin Dose 50 MG; Start 11/11/16 at 09:30 Montelukast Sodium (Singulair) 10 mg QAM PO Last administered on 12/05/16 09: 29; Admin Dose 10 MG; Start 11/11/16 at 11:00 Oxycodone/ Acetaminophen (Endocet (10/ 325)) 1 tab Q6 PRN PO PRN Last administered on 12/02/16 12:39; Admin Dose 1 TAB; Start 11/11/16 at 12:00 Pyridoxine HCl (Vitamin B6) 50 mg DAILY PO Last administered on 12/05/16 09:29 ; Admin Dose 50 MG; Start 11/11/16 at 09:30 Tiotropium [place] (Spiriva) 1 inh DAILY INH Last administered on 12/05/16 09: 26; Admin Dose 1 INH; Start 11/11/16 at 11:00 Ondansetron HCl (Zofran Tab) 4 mg Q6H PRN PO NAUSEA AND/OR VOMITING Last administered on 11/22/16 08:46; Admin Dose 4 MG; Start 11/11/16 at 10:00 Salmeterol Xinafoate/ Fluticasone (Advair 250/50 Diskus) 1 inh BID INH Last administered on 12/05/16 09:26; Admin Dose 1 INH; Start 11/11/16 at 11:00 Vancomycin HCl (Vanco Iv Per Pharmacy) PER PHARMACY DOSING NOTE XX ; Start 11/11 at 10:30; Stop 12/11/16 at 14:59 Albuterol (Ventolin Hfa) 2 puff Q4H PRN INH AOB Last administered on 11/25/16 12:06; Admin Dose 2 PUFF; Start 11/11/16 at 10:30 Epoetin Hang (Epogen (Esrd)) 10,000 units TuThSa@17 SC Last administered on 16:57; Admin Dose 10,000 UNITS; Start 11/11/16 at 17:00 Collagenase (Santyl) 1 applic DAILY TOP Last administered on 12/05/16 09:31; Admin Dose 1 APPLIC; Start 11/13/16 at 09:00 Diagnostic Test (Pha) (Accu-Chek) 1 ea 02 XX Last administered on 12/03/16 02: 14; Admin Dose 1 EA; Start 11/14/16 at 02:00 Insulin Detemir (Levemir) 35 unit QHS@20 SC Last administered on 12/04/16 21: 27; Admin Dose 35 UNIT; Start 11/14/16 at 20:00 Nicotine (Nicoderm 21 Mg/ 24hr) 1 patch DAILY TRANSDERM Last administered on 09:29; Admin Dose 1 PATCH; Start 11/14/16 at 20:00 Docusate Sodium (Colace) 100 mg Q12H PO Last administered on 12/04/16 21:26; Admin Dose 100 MG; Start 11/16/16 at 22:00 Miscellaneous Information 1 ea NOTE XX ; Start 11/17/16 at 11:30 Glucose (Glutose) 15 gm Q15M PRN PO DECREASED GLUCOSE; Start 11/17/16 at 11:30 Glucose (Glutose) 22.5 gm Q15M PRN PO DECREASED GLUCOSE; Start 11/17/16 at 11:30 Dextrose (D50w Syringe) 25 ml Q15M PRN IV DECREASED GLUCOSE; Start 11/17/16 at 11:30 Dextrose (D50w Syringe) 50 ml Q15M PRN IV DECREASED GLUCOSE; Start 11/17/16 at 11:30 Glucagon (Glucagen) 1 mg Q15M PRN IM DECREASED GLUCOSE; Start 11/17/16 at 11:30 Glucose (Glutose) 15 gm Q15M PRN BUCCAL DECREASED GLUCOSE; Start 11/17/16 at 11: 30 Polyethylene Glycol (Miralax) 17 gm BID PO Last administered on 12/04/16 21:28 ; Admin Dose 17 GM; Start 11/17/16 at 12:00 Bisacodyl (Dulcolax) 10 mg DAILY PRN PO CONSTIPATION; Start 11/17/16 at 11:30 Diltiazem HCl (Cardizem Cd) 120 mg BID PO Last administered on 12/05/16 09:27 ; Admin Dose 120 MG; Start 11/19/16 at 21:00 Zolpidem Tartrate (Ambien) 5 mg HS PRN PO INSOMNIA Last administered on 02:17; Admin Dose 5 MG; Start 11/19/16 at 21:30 Lorazepam (Ativan) 1 mg Q6H PRN IV AGITATION/ANXIETY Last administered on 03:49; Admin Dose 1 MG; Start 11/21/16 at 21:15 Guaifenesin/ Codeine Phosphate (Robitussin Ac Liquid Cup) 5 ml Q4H PRN PO COUGH Last administered on 12/02/16 11:29; Admin Dose 5 ML; Start 11/21/16 at 21 :30 Morphine Sulfate 2 mg 2 mg Q3H PRN IV for pain Last administered on 12/05/16 11:45; Admin Dose 2 MG; Start 11/24/16 at 18:30 Vancomycin HCl 250 ml @ 125 mls/hr Q96H IVPB Last administered on 12/03/16 18 :34; Admin Dose 125 MLS/HR; Start 11/25/16 at 15:00; Stop 12/11/16 at 14:59 Meropenem/Sodium Chloride (Merrem 500mg/50 ml(Pmx)) 50 ml @ 100 mls/hr Q24H IVPB Last administered on 12/04/16 16:56; Admin Dose 100 MLS/HR; Start at 16:00; Stop 12/11/16 at 15:59 Pantoprazole (Protonix Iv) 40 mg BID@06,18 IV Last administered on 12/05/16 05 :24; Admin Dose 40 MG; Start 12/02/16 at 18:00 Sucralfate (Carafate) 1 gm QID PO Last administered on 12/05/16 09:27; Admin Dose 1 GM; Start 12/03/16 at 17:00 STEFAN MUNSON Dec 05, 2016 14:13
--- NOTE | 2016-12-05 15:32 | CONS ---
Date/Time of Note Date/Time of Note DATE: 12/05/16 TIME: 15:32 Assessment/Plan Assessment/Plan Chief Complaint/Hosp Course No acute changes, no fevers, looks comfortable Indwelling's: Left upper extremity AV fistula Antimicrobials: Vancomycin, Merrem Physical examination: Morbidly obese well-developed, ill-appearing elderly woman in no distress. Head atraumatic, normocephalic. Sclerae nonicteric. Neck is obese. Chest rise symmetrical, breath sounds diminished basis. Heart S1-S2. Abdomen obese soft bowel tones present. Extremities with bilateral edema, patient has multiple lesions on her lower extremities erythema resolving, she has a left upper thigh wound VAC. ASSESSMENT: 1. Acute encephalopathy, likely toxic metabolic, improving 2. Bilateral lower extremities chronic venous stasis with chronic cellulitis and left hip wound, s/p debridement and wound vac application 10/19/16. 3. End-stage renal disease, on hemodialysis. 4. Morbid obesity. 5. Atrial fibrillation. 6. Healthcare associated pneumonia, possibly aspiration 7. Allergy: Penicillin, Cipro Plan: Remains stable, bilateral lower extremities wounds look better, completing antibiotics [facility] staff Problems: Consultation Date/Type/Reason Admit Date/Time Nov 11, 2016 at 06:40 Initial Consult Date 11/12/16 Type of Consultation: id Referring Provider: ERICK MATOS Exam/Review of Systems Vital Signs Vitals Vital Signs Date Time Temp Pulse Resp B/P Pulse Ox O2 Delivery O2 Flow Rate FiO2 12/05/16 11:43 66 18 137/74 12/05/16 09:10 98.3 95 12/05/16 08:00 Nasal Cannula 2.0 Intake and Output 12/04/16 12/04/16 12/05/16 15:00 23:00 07:00 Intake Total 100 ml 840 ml Balance 100 ml 840 ml Results Result Diagram: 12/04/16 0531 12/04/16 0531 Results 24 hrs Laboratory Tests Test 12/04/16 17:09 12/04/16 21:23 12/05/16 07:56 12/05/16 12:04 Bedside Glucose 132 177 192 130 Medications Medications Current Medications Amlodipine Besylate (Norvasc) 5 mg DAILY PO Last administered on 12/05/16t 09: 31; Admin Dose 5 MG; Start 11/11/16 at 09:30 Apixaban (Eliquis) 5 mg BID PO Last administered on 12/01/16 20:36; Admin Dose 5 MG; Start 11/11/16 at 09:30; Status Future Hold Aspirin (Aspirin) 81 mg DAILY PO Last administered on 12/05/16 09:27; Admin Dose 81 MG; Start 11/11/16 at 09:30 Atorvastatin Calcium (Lipitor) 40 mg QHS PO Last administered on 12/04/16 21: 24; Admin Dose 40 MG; Start 11/11/16 at 21:00 Benzonatate (Tessalon) 100 mg Q6 PO Last administered on 12/05/16 11:45; Admin Dose 100 MG; Start 11/11/16 at 12:00 Carisoprodol (Soma) 350 mg Q8 PRN PO MUSCLE SPASMS Last administered on 09:36; Admin Dose 350 MG; Start 11/11/16 at 12:00 Cinacalcet (Sensipar) 30 mg DAILY PO Last administered on 12/05/16 09:29; Admin Dose 30 MG; Start 11/11/16 at 11:00 Furosemide (Lasix) 80 mg DAILY PO Last administered on 12/05/16 09:28; Admin Dose 80 MG; Start 11/11/16 at 09:30 Losartan Potassium (Cozaar) 50 mg BID PO Last administered on 12/05/16 11:44; Admin Dose 50 MG; Start 11/11/16 at 09:30 Metoprolol Succinate (Toprol Xl) 50 mg BID PO Last administered on 12/05/16 11 :44; Admin Dose 50 MG; Start 11/11/16 at 09:30 Montelukast Sodium (Singulair) 10 mg QAM PO Last administered on 12/05/16 09: 29; Admin Dose 10 MG; Start 11/11/16 at 11:00 Oxycodone/ Acetaminophen (Endocet (10/ 325)) 1 tab Q6 PRN PO PRN Last administered on 12/02/16 12:39; Admin Dose 1 TAB; Start 11/11/16 at 12:00 Pyridoxine HCl (Vitamin B6) 50 mg DAILY PO Last administered on 12/05/16 09:29 ; Admin Dose 50 MG; Start 11/11/16 at 09:30 Tiotropium [place] (Spiriva) 1 inh DAILY INH Last administered on 12/05/16 09: 26; Admin Dose 1 INH; Start 11/11/16 at 11:00 Ondansetron HCl (Zofran Tab) 4 mg Q6H PRN PO NAUSEA AND/OR VOMITING Last administered on 11/22/16 08:46; Admin Dose 4 MG; Start 11/11/16 at 10:00 Salmeterol Xinafoate/ Fluticasone (Advair 250/50 Diskus) 1 inh BID INH Last administered on 12/05/16 09:26; Admin Dose 1 INH; Start 11/11/16 at 11:00 Vancomycin HCl (Vanco Iv Per Pharmacy) PER PHARMACY DOSING NOTE XX ; Start 11/11 at 10:30; Stop 12/11/16 at 14:59 Albuterol (Ventolin Hfa) 2 puff Q4H PRN INH AOB Last administered on 11/25/16 12:06; Admin Dose 2 PUFF; Start 11/11/16 at 10:30 Epoetin Hang (Epogen (Esrd)) 10,000 units TuThSa@17 SC Last administered on 16:57; Admin Dose 10,000 UNITS; Start 11/11/16 at 17:00 Collagenase (Santyl) 1 applic DAILY TOP Last administered on 12/05/16 09:31; Admin Dose 1 APPLIC; Start 11/13/16 at 09:00 Diagnostic Test (Pha) (Accu-Chek) 1 ea 02 XX Last administered on 12/03/16 02: 14; Admin Dose 1 EA; Start 11/14/16 at 02:00 Insulin Detemir (Levemir) 35 unit QHS@20 SC Last administered on 12/04/16 21: 27; Admin Dose 35 UNIT; Start 11/14/16 at 20:00 Nicotine (Nicoderm 21 Mg/ 24hr) 1 patch DAILY TRANSDERM Last administered on 09:29; Admin Dose 1 PATCH; Start 11/14/16 at 20:00 Docusate Sodium (Colace) 100 mg Q12H PO Last administered on 12/04/16 21:26; Admin Dose 100 MG; Start 11/16/16 at 22:00 Miscellaneous Information 1 ea NOTE XX ; Start 11/17/16 at 11:30 Glucose (Glutose) 15 gm Q15M PRN PO DECREASED GLUCOSE; Start 11/17/16 at 11:30 Glucose (Glutose) 22.5 gm Q15M PRN PO DECREASED GLUCOSE; Start 11/17/16 at 11:30 Dextrose (D50w Syringe) 25 ml Q15M PRN IV DECREASED GLUCOSE; Start 11/17/16 at 11:30 Dextrose (D50w Syringe) 50 ml Q15M PRN IV DECREASED GLUCOSE; Start 11/17/16 at 11:30 Glucagon (Glucagen) 1 mg Q15M PRN IM DECREASED GLUCOSE; Start 11/17/16 at 11:30 Glucose (Glutose) 15 gm Q15M PRN BUCCAL DECREASED GLUCOSE; Start 11/17/16 at 11: 30 Polyethylene Glycol (Miralax) 17 gm BID PO Last administered on 12/04/16 21:28 ; Admin Dose 17 GM; Start 11/17/16 at 12:00 Bisacodyl (Dulcolax) 10 mg DAILY PRN PO CONSTIPATION; Start 11/17/16 at 11:30 Diltiazem HCl (Cardizem Cd) 120 mg BID PO Last administered on 12/05/16 09:27 ; Admin Dose 120 MG; Start 11/19/16 at 21:00 Zolpidem Tartrate (Ambien) 5 mg HS PRN PO INSOMNIA Last administered on 02:17; Admin Dose 5 MG; Start 11/19/16 at 21:30 Lorazepam (Ativan) 1 mg Q6H PRN IV AGITATION/ANXIETY Last administered on 03:49; Admin Dose 1 MG; Start 11/21/16 at 21:15 Guaifenesin/ Codeine Phosphate (Robitussin Ac Liquid Cup) 5 ml Q4H PRN PO COUGH Last administered on 12/02/16 11:29; Admin Dose 5 ML; Start 11/21/16 at 21 :30 Morphine Sulfate 2 mg 2 mg Q3H PRN IV for pain Last administered on 12/05/16 11:45; Admin Dose 2 MG; Start 11/24/16 at 18:30 Vancomycin HCl 250 ml @ 125 mls/hr Q96H IVPB Last administered on 12/03/16 18 :34; Admin Dose 125 MLS/HR; Start 11/25/16 at 15:00; Stop 12/11/16 at 14:59 Meropenem/Sodium Chloride (Merrem 500mg/50 ml(Pmx)) 50 ml @ 100 mls/hr Q24H IVPB Last administered on 12/04/16 16:56; Admin Dose 100 MLS/HR; Start at 16:00; Stop 12/11/16 at 15:59 Pantoprazole (Protonix Iv) 40 mg BID@06,18 IV Last administered on 12/05/16 05 :24; Admin Dose 40 MG; Start 12/02/16 at 18:00 Sucralfate (Carafate) 1 gm QID PO Last administered on 12/05/16 09:27; Admin Dose 1 GM; Start 12/03/16 at 17:00 TODD RAMIRES NP Dec 05, 2016 15:32
[2016-12-05] MEDS: MEROPENEM 500MG/50 ML (PMX) 50 ML IVPB SCH (16:04)
[2016-12-05 16:07] VITALS: BP 124/61; RESP 18
[2016-12-05] MEDS: GUAIFENESIN/CODEINE 5ML CUP PO PRN (18:31)
[2016-12-05 20:00] VITALS: BP 138/64; RESP 20
[2016-12-05] MEDS: ATORVASTATIN 40 MG TAB PO SCH (20:36)
--- NOTE | 2016-12-05 20:42 | HP ---
DATE OF ADMISSION: 11/11/2016 VASCULAR SURGERY CONSULTATION Dear Doctors: HISTORY OF PRESENT ILLNESS: Ms. Anthony is a 61-year-old female with a plethora of medical conditions, who has been admitted to [facility] since the end of 10/2016. The patient has been known to our Vascular Surgery Service secondary for evaluation of her end-stage renal disease, with her fistula and dialysis sessions undergoing Tuesday, and Tuesday at [facility] in [place], and her left thigh wound which was debrided and being treated with wound VAC and conservative wound care dressings. Reason for re-evaluation by Vascular Surgery: We were called to evaluate her right lower extremity and the hip and lower back area as the patient has developed a decubitus ulcer that has been gradually worsening. At the moment the patient denies shortness of breath, chest pain, nausea, vomiting, fever or chills. The patient has been immobile and has not really moved out of her bed, and she is also noncompliant and does not follow directions or any educations given to her. REVIEW OF SYSTEMS: Fourteen point review performed negative except what was mentioned in HPI. PAST MEDICAL HISTORY: Entails end-stage renal disease, bilateral lower extremity ulcers, gastritis, upper GI bleed, diabetes type 2, pneumonia, morbidly obese, dyslipidemia, bilateral lower extremity diabetic foot ulcers, bilateral lower extremity atherosclerosis, bilateral lower extremity venous insufficiency and venous stasis ulcers, bilateral chronic cellulitis, coronary artery disease, hypertension, atrial fibrillation, right thigh decubitus ulcer. PAST SURGICAL HISTORY: Left thigh debridement, fistula creation, perm-catheter placement. SOCIAL HISTORY: Previous smoker. Denies tobacco, alcohol or illicit drug use currently. FAMILY HISTORY: Positive for coronary artery disease and hypertension. PHYSICAL EXAMINATION: GENERAL: Alert and oriented x3. No apparent distress. HEENT: Normocephalic and atraumatic. EOMI. Mucosa moist. NECK: Supple. No carotid bruit. LUNGS: Coarse breath sounds bilaterally. No crackles. CARDIOVASCULAR: S1 and S2 present. Irregularly irregular. ABDOMEN: Soft, nontender and nondistended. Bowel sounds positive. Large truncal obesity. Large pannus. BACK: The right flank and lower back near the superior iliac spine there is a decubitus ulcer that has developed with significant eschar. Lower extremities: Right lower extremity unable to palpate a femoral pulse secondary to body habitus. Nonpalpable pedal pulse. Motor sensory intact. Capillary refill 3 seconds. An area on the lateral aspect of the upper thigh with eschar and decubitus ulcer. Left lower extremity unable to palpate a femoral pulse secondary to body habitus. Nonpalpable pedal pulse. Motor sensory intact. Capillary refill is about 3 seconds. There is a left lateral upper thigh wound with a wound VAC intact and functional. ASSESSMENT AND PLAN: Bilateral lower extremity atherosclerosis with left upper thigh ulcer and right upper thigh and flank area decubitus ulcers: It seems that the patient does have some component of atherosclerosis; however, from previous evaluations it is not flow limiting and the patient should have adequate perfusion to bilateral upper thigh regions. Would recommend for the patient's decubitus ulcer on her right side to be evaluated by our general surgeons for possible debridement and intervention or our plastic surgeons. No further vascular intervention is needed for this aspect of her decubitus ulcer. Would recommend for the patient to obtain physical therapy and to obtain an air bed in order to assist with her immobility and her decubitus ulcers that have developed. Bilateral lower extremity chronic venous insufficiency: The moment the patient would require to have further evaluation as an outpatient with obtaining reflux studies; however, if the edema worsens or is causing the patient discomfort would recommend to apply 2-layer compression therapy from the toes all the way up to the knee. End-stage renal disease: Since the patient's fistula at the moment has been having no issues we will continue with our vascular surveillance of her fistula. Discussed vascular optimization (BP meds, diet, nutrition, exercise, sugar control, antiplatelets). Discussed the findings, plans and management with the patient and she understands. Recommend continuing with her left thigh wound VAC changes Tuesday, Tuesday and Tuesday. Thank you for allowing us to partake in the care of your patient. Please call with any questions. Dictated By: Stephen Fuentes MD /herrera/lucas /Document#: [id number]
[2016-12-05] MEDS: INSULIN DETEMIR [LEVEMIR] 3ML CART SC SCH (22:22)
[2016-12-06] VITALS (11 sets, daily range): BP systolic 102–127; BP diastolic 54–69; PULSE 77–80; RESP 16–20
[2016-12-06] MEDS: BENZONATATE 100 MG CAP PO SCH ×4 (00:25→17:30)
[2016-12-06] MEDS: ACCU-CHEK XX SCH (02:00)
[2016-12-06] MEDS: PANTOPRAZOLE 40 MG INJ IV SCH ×2 (05:13→17:30)
[2016-12-06] MEDS: morphine 2 MG INJ IV PRN ×3 (05:13→14:46)
[2016-12-06 05:59] LABS: WHITE BLOOD COUNT 11.1 10^3/ul (4.8-10.8)
[2016-12-06 06:00] LABS: ABNORMAL IP MESSAGE 1; BASOPHIL # 0.1 10^3/ul (0.0-0.1); BASOPHILS % 0.6 % (0.0-2.0); EOSINOPHILS # 0.5 10^3/ul (0.0-0.5); EOSINOPHILS % 4.6 % (0.0-7.0); HEMATOCRIT 27.6 % (37.0-47.0); HEMOGLOBIN 8.3 g/dl (12.0-16.0); LYMPHOCYTES % 8.7 % (15.0-51.0); MEAN CORPUSCULAR HEMOGLOBIN 29.9 pg (29.0-33.0); MEAN CORPUSCULAR HGB CONC 30.1 g/dl (32.0-37.0); MEAN CORPUSCULAR VOLUME 99.3 fl (82.0-101.0); MEAN PLATELET VOLUME 9.6 fl (7.4-10.4); MONOCYTE # 1.8 10^3/ul (0.3-0.9); MONOCYTES % 16.3 % (0.0-11.0); NEUTROPHIL # 7.6 10^3/ul (1.6-7.5); PLATELET COUNT 316 10^3/UL (140-415); RED BLOOD COUNT 2.78 10^6/ul (4.20-5.40); RED CELL DISTRIBUTION WIDTH 20.4 % (11.5-14.5)
[2016-12-06 06:39] LABS: POSITIVE DIFF @See below
[2016-12-06 06:50] LABS: CALCIUM 10.2 mg/dl (8.4-10.2); CREATININE 4.32 mg/dl (0.44-1.00); MAGNESIUM 2.6 mg/dl (1.7-2.5); PHOSPHORUS 3.6 mg/dl (2.5-4.9); POTASSIUM 4.1 mmol/L (3.5-5.1)
[2016-12-06] MEDS: METOCLOPRAMIDE 5 MG TAB PO SCH ×3 (07:29→17:30)
[2016-12-06] MEDS: INSULIN ASPART [NOVOLOG] 3 ML PEN SC SCH ×4 (08:00→21:00)
[2016-12-06] MEDS: CALCIUM ACETATE 667 MG CAP PO SCH ×3 (08:20→17:30)
[2016-12-06] MEDS: ASPIRIN 81 MG TAB PO SCH (08:21)
[2016-12-06] MEDS: LOSARTAN 50 MG TAB PO SCH ×2 (08:21→21:00)
[2016-12-06] MEDS: DILTIAZEM (CD) 120 MG CAP PO SCH ×2 (08:21→21:00)
[2016-12-06] MEDS: FUROSEMIDE 40 MG TAB PO SCH (08:21)
[2016-12-06] MEDS: AMLODIPINE 5 MG TAB PO SCH (08:21)
[2016-12-06] MEDS: METOPROLOL (XL) 50 MG TAB PO SCH ×2 (08:22→21:00)
[2016-12-06] MEDS: TIOTROPIUM 18 MCG CAPSULE INHA DEV INH SCH (09:00)
[2016-12-06] MEDS: SALMETEROL/FLUTICASONE 250/50 INHA INH SCH ×2 (10:04→21:00)
[2016-12-06] MEDS: NICOTINE (21 MG/24 HR) PATCH TRANSDERM SCH (10:04)
[2016-12-06] MEDS: MONTELUKAST 10 MG TAB PO SCH (10:04)
[2016-12-06] MEDS: CINACALCET 30 MG TAB PO SCH (10:04)
[2016-12-06] MEDS: POLYETHYLENE GLYCOL 17 GM PACKET PO SCH ×2 (10:04→21:00)
[2016-12-06] MEDS: PYRIDOXINE 50 MG TAB PO SCH (10:04)
[2016-12-06] MEDS: SUCRALFATE 1 GM TAB PO SCH ×4 (10:04→21:00)
[2016-12-06] MEDS: DOCUSATE SODIUM 100 MG CAP PO SCH ×2 (10:04→22:00)
[2016-12-06] MEDS: COLLAGENASE 30 GM TUBE TOP SCH (10:16)
--- NOTE | 2016-12-06 13:38 | CONS ---
Date/Time of Note Date/Time of Note DATE: 12/06/16 TIME: 13:38 Assessment/Plan Assessment/Plan Chief Complaint/Hosp Course No acute changes, no fevers, in hemodialysis, looks comfortable Indwelling's: Left upper extremity AV fistula Antimicrobials: Vancomycin, Merrem Physical examination: Morbidly obese well-developed, ill-appearing elderly woman in no distress. Head atraumatic, normocephalic. Sclerae nonicteric. Neck is obese. Chest rise symmetrical, breath sounds diminished basis. Heart S1-S2. Abdomen obese soft bowel tones present. Extremities with bilateral edema, patient has multiple lesions on her lower extremities erythema resolving, she has a left upper thigh wound VAC. ASSESSMENT: 1. Acute encephalopathy, likely toxic metabolic, improving 2. Bilateral lower extremities chronic venous stasis with chronic cellulitis and left hip wound, s/p debridement and wound vac application 10/19/16. 3. End-stage renal disease, on hemodialysis. 4. Morbid obesity. 5. Atrial fibrillation. 6. Healthcare associated pneumonia, possibly aspiration 7. Allergy: Penicillin, Cipro Plan: Remains stable, bilateral lower extremities wounds look better, completing antibiotics [facility] staff Problems: Consultation Date/Type/Reason Admit Date/Time Nov 11, 2016 at 06:40 Initial Consult Date 11/12/16 Type of Consultation: id Referring Provider: ERICK MATOS Exam/Review of Systems Vital Signs Vitals Vital Signs Date Time Temp Pulse Resp B/P Pulse Ox O2 Delivery O2 Flow Rate FiO2 12/06/16 09:00 Nasal Cannula 2.0 12/06/16 08:00 97.4 65 16 122/55 98 Intake and Output 12/05/16 12/05/16 12/06/16 15:00 23:00 07:00 Intake Total 690 ml 100 ml Balance 690 ml 100 ml Results Result Diagram: 12/06/16 0518 12/06/16 0518 Results 24 hrs Laboratory Tests Test 12/05/16 17:14 12/05/16 20:32 12/05/16 22:18 12/06/16 05:18 Bedside Glucose 129 142 153 White Blood Count 11.1 H Red Blood Count 2.78 L Hemoglobin 8.3 L Hematocrit 27.6 L Mean Corpuscular Volume 99.3 Mean Corpuscular Hemoglobin 29.9 Mean Corpuscular Hemoglobin Concent 30.1 L Red Cell Distribution Width 20.4 H Platelet Count 316 Mean Platelet Volume 9.6 Neutrophils % 69.0 Lymphocytes % 8.7 L Monocytes % 16.3 H Eosinophils % 4.6 Basophils % 0.6 Nucleated Red Blood Cells % 0.0 Neutrophils # 7.6 H Lymphocytes # 1.0 Monocytes # 1.8 H Eosinophils # 0.5 Basophils # 0.1 Nucleated Red Blood Cells # 0.0 Sodium Level 142 Potassium Level 4.1 Chloride Level 96 L Carbon Dioxide Level 32 H Anion Gap 18 H Blood Urea Nitrogen 56 H Creatinine 4.32 H Glucose Level 118 Calcium Level 10.2 Phosphorus Level 3.6 Magnesium Level 2.6 H Test 12/06/16 08:23 12/06/16 12:09 Bedside Glucose 126 157 Medications Medications Current Medications Amlodipine Besylate (Norvasc) 5 mg DAILY PO Last administered on 12/05/16 09: 31; Admin Dose 5 MG; Start 11/11/16 at 09:30 Apixaban (Eliquis) 5 mg BID PO Last administered on 12/01/16 20:36; Admin Dose 5 MG; Start 11/11/16 at 09:30; Status Future Hold Aspirin (Aspirin) 81 mg DAILY PO Last administered on 12/05/16 09:27; Admin Dose 81 MG; Start 11/11/16 at 09:30 Atorvastatin Calcium (Lipitor) 40 mg QHS PO Last administered on 12/05/16 20: 36; Admin Dose 40 MG; Start 11/11/16 at 21:00 Benzonatate (Tessalon) 100 mg Q6 PO Last administered on 12/06/16 05:13; Admin Dose 100 MG; Start 11/11/16 at 12:00 Carisoprodol (Soma) 350 mg Q8 PRN PO MUSCLE SPASMS Last administered on 09:36; Admin Dose 350 MG; Start 11/11/16 at 12:00 Cinacalcet (Sensipar) 30 mg DAILY PO Last administered on 12/06/16 10:04; Admin Dose 30 MG; Start 11/11/16 at 11:00 Furosemide (Lasix) 80 mg DAILY PO Last administered on 12/05/16 09:28; Admin Dose 80 MG; Start 11/11/16 at 09:30 Losartan Potassium (Cozaar) 50 mg BID PO Last administered on 12/05/16 20:36; Admin Dose 50 MG; Start 11/11/16 at 09:30 Metoprolol Succinate (Toprol Xl) 50 mg BID PO Last administered on 12/05/16 20 :37; Admin Dose 50 MG; Start 11/11/16 at 09:30 Montelukast Sodium (Singulair) 10 mg QAM PO Last administered on 12/06/16 10: 04; Admin Dose 10 MG; Start 11/11/16 at 11:00 Oxycodone/ Acetaminophen (Endocet (10/ 325)) 1 tab Q6 PRN PO PRN Last administered on 12/02/16 12:39; Admin Dose 1 TAB; Start 11/11/16 at 12:00 Pyridoxine HCl (Vitamin B6) 50 mg DAILY PO Last administered on 12/06/16 10:04 ; Admin Dose 50 MG; Start 11/11/16 at 09:30 Tiotropium [place] (Spiriva) 1 inh DAILY INH Last administered on 12/05/16 09: 26; Admin Dose 1 INH; Start 11/11/16 at 11:00 Ondansetron HCl (Zofran Tab) 4 mg Q6H PRN PO NAUSEA AND/OR VOMITING Last administered on 11/22/16 08:46; Admin Dose 4 MG; Start 11/11/16 at 10:00 Salmeterol Xinafoate/ Fluticasone (Advair 250/50 Diskus) 1 inh BID INH Last administered on 12/06/16 10:04; Admin Dose 1 INH; Start 11/11/16 at 11:00 Vancomycin HCl (Vanco Iv Per Pharmacy) PER PHARMACY DOSING NOTE XX ; Start 11/11 at 10:30; Stop 12/11/16 at 14:59 Albuterol (Ventolin Hfa) 2 puff Q4H PRN INH AOB Last administered on 11/25/16 12:06; Admin Dose 2 PUFF; Start 11/11/16 at 10:30 Epoetin Hang (Epogen (Esrd)) 10,000 units TuThSa@17 SC Last administered on 16:57; Admin Dose 10,000 UNITS; Start 11/11/16 at 17:00 Collagenase (Santyl) 1 applic DAILY TOP Last administered on 12/06/16 10:16; Admin Dose 1 APPLIC; Start 11/13/16 at 09:00 Diagnostic Test (Pha) (Accu-Chek) 1 ea 02 XX Last administered on 12/03/16 02: 14; Admin Dose 1 EA; Start 11/14/16 at 02:00 Insulin Detemir (Levemir) 35 unit QHS@20 SC Last administered on 12/05/16 22: 22; Admin Dose 35 UNIT; Start 11/14/16 at 20:00 Nicotine (Nicoderm 21 Mg/ 24hr) 1 patch DAILY TRANSDERM Last administered on 10:04; Admin Dose 1 PATCH; Start 11/14/16 at 20:00 Docusate Sodium (Colace) 100 mg Q12H PO Last administered on 12/06/16 10:04; Admin Dose 100 MG; Start 11/16/16 at 22:00 Miscellaneous Information 1 ea NOTE XX ; Start 11/17/16 at 11:30 Glucose (Glutose) 15 gm Q15M PRN PO DECREASED GLUCOSE; Start 11/17/16 at 11:30 Glucose (Glutose) 22.5 gm Q15M PRN PO DECREASED GLUCOSE; Start 11/17/16 at 11:30 Dextrose (D50w Syringe) 25 ml Q15M PRN IV DECREASED GLUCOSE; Start 11/17/16 at 11:30 Dextrose (D50w Syringe) 50 ml Q15M PRN IV DECREASED GLUCOSE; Start 11/17/16 at 11:30 Glucagon (Glucagen) 1 mg Q15M PRN IM DECREASED GLUCOSE; Start 11/17/16 at 11:30 Glucose (Glutose) 15 gm Q15M PRN BUCCAL DECREASED GLUCOSE; Start 11/17/16 at 11: 30 Polyethylene Glycol (Miralax) 17 gm BID PO Last administered on 12/06/16 10:04 ; Admin Dose 17 GM; Start 11/17/16 at 12:00 Bisacodyl (Dulcolax) 10 mg DAILY PRN PO CONSTIPATION; Start 11/17/16 at 11:30 Diltiazem HCl (Cardizem Cd) 120 mg BID PO Last administered on 12/05/16 20:36 ; Admin Dose 120 MG; Start 11/19/16 at 21:00 Zolpidem Tartrate (Ambien) 5 mg HS PRN PO INSOMNIA Last administered on 02:17; Admin Dose 5 MG; Start 11/19/16 at 21:30 Lorazepam (Ativan) 1 mg Q6H PRN IV AGITATION/ANXIETY Last administered on 20:51; Admin Dose 1 MG; Start 11/21/16 at 21:15 Guaifenesin/ Codeine Phosphate (Robitussin Ac Liquid Cup) 5 ml Q4H PRN PO COUGH Last administered on 12/05/16 18:31; Admin Dose 5 ML; Start 11/21/16 at 21 :30 Morphine Sulfate 2 mg 2 mg Q3H PRN IV for pain Last administered on 12/06/16 10:27; Admin Dose 2 MG; Start 11/24/16 at 18:30 Vancomycin HCl 250 ml @ 125 mls/hr Q96H IVPB Last administered on 12/03/16 18 :34; Admin Dose 125 MLS/HR; Start 11/25/16 at 15:00; Stop 12/11/16 at 14:59 Meropenem/Sodium Chloride (Merrem 500mg/50 ml(Pmx)) 50 ml @ 100 mls/hr Q24H IVPB Last administered on 12/05/16 16:04; Admin Dose 100 MLS/HR; Start at 16:00; Stop 12/11/16 at 15:59 Pantoprazole (Protonix Iv) 40 mg BID@06,18 IV Last administered on 12/06/16 05 :13; Admin Dose 40 MG; Start 12/02/16 at 18:00 Sucralfate (Carafate) 1 gm QID PO Last administered on 12/06/16 12:15; Admin Dose 1 GM; Start 12/03/16 at 17:00 TODD RAMIRES NP Dec 06, 2016 13:38
--- NOTE | 2016-12-06 15:43 | CONS ---
Date/Time of Note Date/Time of Note DATE: 12/06/16 TIME: 15:41 Assessment/Plan Assessment/Plan Chief Complaint/Hosp Course - ESRD on Hemodialysis TTS @ [facility] - POST FALL - ACUTE ANEMIA - Hx of Cellulitis - CAD/CHF - Hx of Hypertension - Pneumonia PLAN: Bedside dialysis Aim for UF ~ 2 Kg Monitor H/H Continue with Abx Started EPOGEN Iron Had transfusion Problems: Consultation Date/Type/Reason Admit Date/Time Nov 11, 2016 at 06:40 Initial Consult Date 11/12/16 Type of Consultation: NEPHROLOGY Referring Provider: ERICK MATOS 24 HR Interval Summary Constitutional: improved, no complaints Exam/Review of Systems Vital Signs Vitals Vital Signs Date Time Temp Pulse Resp B/P Pulse Ox O2 Delivery O2 Flow Rate FiO2 12/06/16 14:00 97.8 77 18 112/56 93 12/06/16 09:00 Nasal Cannula 2.0 Intake and Output 12/05/16 12/05/16 12/06/16 15:00 23:00 07:00 Intake Total 690 ml 100 ml Balance 690 ml 100 ml Exam Constitutional: alert, oriented Psych: no complaints Respiratory: crackles/rales Cardiovascular: edema, systolic murmur Gastrointestinal: soft Results Result Diagram: 12/06/16 0518 12/06/16 0518 Results 24 hrs Laboratory Tests Test 12/05/16 17:14 12/05/16 20:32 12/05/16 22:18 12/06/16 05:18 Bedside Glucose 129 142 153 White Blood Count 11.1 H Red Blood Count 2.78 L Hemoglobin 8.3 L Hematocrit 27.6 L Mean Corpuscular Volume 99.3 Mean Corpuscular Hemoglobin 29.9 Mean Corpuscular Hemoglobin Concent 30.1 L Red Cell Distribution Width 20.4 H Platelet Count 316 Mean Platelet Volume 9.6 Neutrophils % 69.0 Lymphocytes % 8.7 L Monocytes % 16.3 H Eosinophils % 4.6 Basophils % 0.6 Nucleated Red Blood Cells % 0.0 Neutrophils # 7.6 H Lymphocytes # 1.0 Monocytes # 1.8 H Eosinophils # 0.5 Basophils # 0.1 Nucleated Red Blood Cells # 0.0 Sodium Level 142 Potassium Level 4.1 Chloride Level 96 L Carbon Dioxide Level 32 H Anion Gap 18 H Blood Urea Nitrogen 56 H Creatinine 4.32 H Glucose Level 118 Calcium Level 10.2 Phosphorus Level 3.6 Magnesium Level 2.6 H Test 12/06/16 08:23 12/06/16 12:09 Bedside Glucose 126 157 Medications Medications Current Medications Amlodipine Besylate (Norvasc) 5 mg DAILY PO Last administered on 12/05/16 09: 31; Admin Dose 5 MG; Start 11/11/16 at 09:30 Apixaban (Eliquis) 5 mg BID PO Last administered on 12/01/16 20:36; Admin Dose 5 MG; Start 11/11/16 at 09:30; Status Future Hold Aspirin (Aspirin) 81 mg DAILY PO Last administered on 12/05/16 09:27; Admin Dose 81 MG; Start 11/11/16 at 09:30 Atorvastatin Calcium (Lipitor) 40 mg QHS PO Last administered on 12/05/16 20: 36; Admin Dose 40 MG; Start 11/11/16 at 21:00 Benzonatate (Tessalon) 100 mg Q6 PO Last administered on 12/06/16 05:13; Admin Dose 100 MG; Start 11/11/16 at 12:00 Carisoprodol (Soma) 350 mg Q8 PRN PO MUSCLE SPASMS Last administered on 09:36; Admin Dose 350 MG; Start 11/11/16 at 12:00 Cinacalcet (Sensipar) 30 mg DAILY PO Last administered on 12/06/16 10:04; Admin Dose 30 MG; Start 11/11/16 at 11:00 Furosemide (Lasix) 80 mg DAILY PO Last administered on 12/05/16 09:28; Admin Dose 80 MG; Start 11/11/16 at 09:30 Losartan Potassium (Cozaar) 50 mg BID PO Last administered on 12/05/16 20:36; Admin Dose 50 MG; Start 11/11/16 at 09:30 Metoprolol Succinate (Toprol Xl) 50 mg BID PO Last administered on 12/05/16 20 :37; Admin Dose 50 MG; Start 11/11/16 at 09:30 Montelukast Sodium (Singulair) 10 mg QAM PO Last administered on 12/06/16 10: 04; Admin Dose 10 MG; Start 11/11/16 at 11:00 Oxycodone/ Acetaminophen (Endocet (10/ 325)) 1 tab Q6 PRN PO PRN Last administered on 12/02/16 12:39; Admin Dose 1 TAB; Start 11/11/16 at 12:00 Pyridoxine HCl (Vitamin B6) 50 mg DAILY PO Last administered on 12/06/16 10:04 ; Admin Dose 50 MG; Start 11/11/16 at 09:30 Tiotropium [place] (Spiriva) 1 inh DAILY INH Last administered on 12/05/16 09: 26; Admin Dose 1 INH; Start 11/11/16 at 11:00 Ondansetron HCl (Zofran Tab) 4 mg Q6H PRN PO NAUSEA AND/OR VOMITING Last administered on 11/22/16 08:46; Admin Dose 4 MG; Start 11/11/16 at 10:00 Salmeterol Xinafoate/ Fluticasone (Advair 250/50 Diskus) 1 inh BID INH Last administered on 12/06/16 10:04; Admin Dose 1 INH; Start 11/11/16 at 11:00 Vancomycin HCl (Vanco Iv Per Pharmacy) PER PHARMACY DOSING NOTE XX ; Start 11/11 at 10:30; Stop 12/11/16 at 14:59 Albuterol (Ventolin Hfa) 2 puff Q4H PRN INH AOB Last administered on 11/25/16 12:06; Admin Dose 2 PUFF; Start 11/11/16 at 10:30 Epoetin Hang (Epogen (Esrd)) 10,000 units TuThSa@17 SC Last administered on 16:57; Admin Dose 10,000 UNITS; Start 11/11/16 at 17:00 Collagenase (Santyl) 1 applic DAILY TOP Last administered on 12/06/16 10:16; Admin Dose 1 APPLIC; Start 11/13/16 at 09:00 Diagnostic Test (Pha) (Accu-Chek) 1 ea 02 XX Last administered on 12/03/16 02: 14; Admin Dose 1 EA; Start 11/14/16 at 02:00 Insulin Detemir (Levemir) 35 unit QHS@20 SC Last administered on 12/05/16 22: 22; Admin Dose 35 UNIT; Start 11/14/16 at 20:00 Nicotine (Nicoderm 21 Mg/ 24hr) 1 patch DAILY TRANSDERM Last administered on 10:04; Admin Dose 1 PATCH; Start 11/14/16 at 20:00 Docusate Sodium (Colace) 100 mg Q12H PO Last administered on 12/06/16 10:04; Admin Dose 100 MG; Start 11/16/16 at 22:00 Miscellaneous Information 1 ea NOTE XX ; Start 11/17/16 at 11:30 Glucose (Glutose) 15 gm Q15M PRN PO DECREASED GLUCOSE; Start 11/17/16 at 11:30 Glucose (Glutose) 22.5 gm Q15M PRN PO DECREASED GLUCOSE; Start 11/17/16 at 11:30 Dextrose (D50w Syringe) 25 ml Q15M PRN IV DECREASED GLUCOSE; Start 11/17/16 at 11:30 Dextrose (D50w Syringe) 50 ml Q15M PRN IV DECREASED GLUCOSE; Start 11/17/16 at 11:30 Glucagon (Glucagen) 1 mg Q15M PRN IM DECREASED GLUCOSE; Start 11/17/16 at 11:30 Glucose (Glutose) 15 gm Q15M PRN BUCCAL DECREASED GLUCOSE; Start 11/17/16 at 11: 30 Polyethylene Glycol (Miralax) 17 gm BID PO Last administered on 12/06/16 10:04 ; Admin Dose 17 GM; Start 11/17/16 at 12:00 Bisacodyl (Dulcolax) 10 mg DAILY PRN PO CONSTIPATION; Start 11/17/16 at 11:30 Diltiazem HCl (Cardizem Cd) 120 mg BID PO Last administered on 12/05/16 20:36 ; Admin Dose 120 MG; Start 11/19/16 at 21:00 Zolpidem Tartrate (Ambien) 5 mg HS PRN PO INSOMNIA Last administered on 02:17; Admin Dose 5 MG; Start 11/19/16 at 21:30 Lorazepam (Ativan) 1 mg Q6H PRN IV AGITATION/ANXIETY Last administered on 20:51; Admin Dose 1 MG; Start 11/21/16 at 21:15 Guaifenesin/ Codeine Phosphate (Robitussin Ac Liquid Cup) 5 ml Q4H PRN PO COUGH Last administered on 12/05/16 18:31; Admin Dose 5 ML; Start 11/21/16 at 21 :30 Morphine Sulfate 2 mg 2 mg Q3H PRN IV for pain Last administered on 12/06/16 14:46; Admin Dose 2 MG; Start 11/24/16 at 18:30 Vancomycin HCl 250 ml @ 125 mls/hr Q96H IVPB Last administered on 12/03/16 18 :34; Admin Dose 125 MLS/HR; Start 11/25/16 at 15:00; Stop 12/11/16 at 14:59 Meropenem/Sodium Chloride (Merrem 500mg/50 ml(Pmx)) 50 ml @ 100 mls/hr Q24H IVPB Last administered on 12/05/16 16:04; Admin Dose 100 MLS/HR; Start at 16:00; Stop 12/11/16 at 15:59 Pantoprazole (Protonix Iv) 40 mg BID@06,18 IV Last administered on 12/06/16 05 :13; Admin Dose 40 MG; Start 12/02/16 at 18:00 Sucralfate (Carafate) 1 gm QID PO Last administered on 12/06/16 12:15; Admin Dose 1 GM; Start 12/03/16 at 17:00 BECKY GAMBLE MD Dec 06, 2016 15:43
[2016-12-06] MEDS: OXYCODONE/ACETAMINOPHEN (10/325) TAB PO PRN (16:06)
[2016-12-06] MEDS: GUAIFENESIN/CODEINE 5ML CUP PO PRN (16:06)
[2016-12-06] MEDS: MEROPENEM 500MG/50 ML (PMX) 50 ML IVPB SCH (16:35)
[2016-12-06] MEDS: INSULIN DETEMIR [LEVEMIR] 3ML CART SC SCH (20:00)
[2016-12-06] MEDS: ATORVASTATIN 40 MG TAB PO SCH (21:00)
[2016-12-07] VITALS (10 sets, daily range): BP systolic 104–136; BP diastolic 53–65; PULSE 78–88; RESP 18–20
[2016-12-07] MEDS: ACCU-CHEK XX SCH (02:00)
[2016-12-07] MEDS: morphine 2 MG INJ IV PRN ×3 (02:53→20:26)
[2016-12-07] MEDS: LORAZEPAM 2 MG INJ IV PRN ×2 (04:20→17:48)
[2016-12-07] MEDS: PANTOPRAZOLE 40 MG INJ IV SCH ×2 (05:07→17:47)
[2016-12-07] MEDS: BENZONATATE 100 MG CAP PO SCH ×4 (05:07→17:47)
[2016-12-07] MEDS: METOCLOPRAMIDE 5 MG TAB PO SCH ×3 (07:29→17:47)
[2016-12-07] MEDS: CALCIUM ACETATE 667 MG CAP PO SCH ×3 (08:02→17:47)
[2016-12-07] MEDS: INSULIN ASPART [NOVOLOG] 3 ML PEN SC SCH ×4 (08:07→20:25)
[2016-12-07] MEDS: MONTELUKAST 10 MG TAB PO SCH (08:42)
[2016-12-07] MEDS: PYRIDOXINE 50 MG TAB PO SCH (08:42)
[2016-12-07] MEDS: TIOTROPIUM 18 MCG CAPSULE INHA DEV INH SCH (08:42)
[2016-12-07] MEDS: CINACALCET 30 MG TAB PO SCH (08:42)
[2016-12-07] MEDS: SUCRALFATE 1 GM TAB PO SCH ×4 (08:42→20:23)
[2016-12-07] MEDS: DILTIAZEM (CD) 120 MG CAP PO SCH ×2 (08:43→20:23)
[2016-12-07] MEDS: LOSARTAN 50 MG TAB PO SCH ×2 (08:43→20:24)
[2016-12-07] MEDS: ASPIRIN 81 MG TAB PO SCH (08:43)
[2016-12-07] MEDS: FUROSEMIDE 40 MG TAB PO SCH (08:43)
[2016-12-07] MEDS: METOPROLOL (XL) 50 MG TAB PO SCH ×2 (08:44→20:24)
[2016-12-07] MEDS: POLYETHYLENE GLYCOL 17 GM PACKET PO SCH ×3 (08:44→22:20)
[2016-12-07] MEDS: AMLODIPINE 5 MG TAB PO SCH (08:44)
[2016-12-07] MEDS: SALMETEROL/FLUTICASONE 250/50 INHA INH SCH ×2 (08:49→20:25)
[2016-12-07] MEDS: NICOTINE (21 MG/24 HR) PATCH TRANSDERM SCH (08:50)
[2016-12-07] MEDS: COLLAGENASE 30 GM TUBE TOP SCH (09:01)
[2016-12-07] MEDS: DOCUSATE SODIUM 100 MG CAP PO SCH ×2 (09:02→21:55)
--- NOTE | 2016-12-07 09:24 | GILP ---
DATE OF PROCEDURE: 12/03/2016 PROCEDURE: Esophagogastroduodenoscopy with biopsies. HISTORY AND INDICATIONS: Patient is being evaluated for anemia. PREMEDICATION: Monitored anesthesia care by anesthesiologist. INSTRUMENT USED: Olympus colonoscope. TECHNIQUE: After informed consent, with the patient/relatives understanding the procedure, its indications, potential risks and complications, including but not limited to: allergic reaction, bleeding, perforation or infection, and after all pertinent questions were answered to the patients satisfaction, the patient/relatives signed witnessed informed consent. Following this, premedication was administered slowly IV push under careful cardiovascular and respiratory monitoring with pulse oximetry, automatic blood pressure and lip reading teacher. Once the sedative effect was achieved the patient was place in the left lateral decubitus, the panendoscope was introduced and advanced under visual control. Careful examination of the upper gastrointestinal tract, both on insertion as well as withdrawal of the instrument disclosed the following findings: Esophagus: The distal esophagus shows erythema, edema, and superficial erosion in the mucosa. There is also proximal displacement of the EG junction. Biopsies were obtained to rule out Land's esophagus. Small hiatal hernia is present. Stomach: Upon entrance to the stomach air was insufflated, the gastric torres distended normally. There is erythema and edema of the mucosa of a moderate degree. Biopsies were obtained to rule out H pylori infection. Pylorus: The pylorus appears patent and within normal limits, with no evidence of gastric outlet obstruction. Duodenum: The duodenal mucosa was carefully examined in the duodenal bulb as well as the second portion of the duodenum and appears unremarkable with no evidence of duodenitis, ulcer or neoplasm. The instrument was then withdrawn, the patient tolerated the procedure well and was transfer out of the endoscopy suite awake, and in good condition to continue recovery under observation. IMPRESSION: 1. Erosive esophagitis. 2. Proximal displacement of the esophagogastric junction rule out Land's esophagus. Biopsies obtained. 3. Hiatal hernia. 4. Erosive gastritis. RECOMMENDATIONS: The patient will be treated with Protonix 40 b.i.d. Pathology will be reviewed as soon as available. Further recommendations will depend on the patient's clinical course as well as review of pathology. Dictated By: Renato Trujillo MD /herrera/jacqui /Document#: [id number] CC: Renato Trujillo MD;*[facility]*
--- NOTE | 2016-12-07 13:16 | CONS ---
Date/Time of Note Date/Time of Note DATE: 12/07/16 TIME: 13:10 Assessment/Plan Assessment/Plan Chief Complaint/Hosp Course Assessment/Plan Chief Complaint/Hosp Course No acute changes. On Hemodialysis. No Acute Distress. Indwelling's: Left upper extremity AV fistula Antimicrobials: Vancomycin, Merrem Physical examination: Morbidly obese well-developed, ill-appearing elderly woman in no distress. Head atraumatic, normocephalic. Sclerae nonicteric. Neck is obese. Chest rise symmetrical, breath sounds diminished basis. Heart S1-S2. Abdomen obese soft bowel tones present. Extremities with bilateral edema, patient has multiple lesions on her lower extremities erythema resolving, she has a left upper thigh wound VAC. ASSESSMENT: 1. Acute encephalopathy, likely toxic metabolic, improving 2. Bilateral lower extremities chronic venous stasis with chronic cellulitis and left hip wound, s/p debridement and wound vac application 10/19/16. 3. End-stage renal disease, on hemodialysis. 4. Morbid obesity. 5. Atrial fibrillation. 6. Healthcare associated pneumonia, possibly aspiration 7. Allergy: Penicillin, Cipro Plan: Remains stable. Completing antibiotics. Local Wound Care. Pain management. Monitor Labs. staff. Problems: Consultation Date/Type/Reason Admit Date/Time Nov 11, 2016 at 06:40 Initial Consult Date 12/02/16 Type of Consultation: id Referring Provider: ERICK MATOS Exam/Review of Systems Vital Signs Vitals Vital Signs Date Time Temp Pulse Resp B/P Pulse Ox O2 Delivery O2 Flow Rate FiO2 12/07/16 12:30 86 18 12/07/16 11:25 Nasal Cannula 2.0 12/07/16 08:08 98.1 117/57 90 Intake and Output 12/06/16 12/06/16 12/07/16 15:00 23:00 07:00 Intake Total 500 ml 450 ml 400 ml Output Total 3500 ml 3000 ml Balance -3000 ml -2550 ml 400 ml Results Result Diagram: 12/06/16 0518 12/06/16 0518 Results 24 hrs Laboratory Tests Test 12/06/16 17:32 12/06/16 20:33 12/06/16 23:26 12/07/16 08:03 Bedside Glucose 197 178 157 161 Test 12/07/16 12:01 Bedside Glucose 156 Medications Medications Current Medications Amlodipine Besylate (Norvasc) 5 mg DAILY PO Last administered on 12/05/16 09: 31; Admin Dose 5 MG; Start 11/11/16 at 09:30 Apixaban (Eliquis) 5 mg BID PO Last administered on 12/01/16 20:36; Admin Dose 5 MG; Start 11/11/16 at 09:30; Status Future Hold Aspirin (Aspirin) 81 mg DAILY PO Last administered on 12/05/16 09:27; Admin Dose 81 MG; Start 11/11/16 at 09:30 Atorvastatin Calcium (Lipitor) 40 mg QHS PO Last administered on 12/06/16 21: 00; Admin Dose 40 MG; Start 11/11/16 at 21:00 Benzonatate (Tessalon) 100 mg Q6 PO Last administered on 12/07/16 12:03; Admin Dose 100 MG; Start 11/11/16 at 12:00 Carisoprodol (Soma) 350 mg Q8 PRN PO MUSCLE SPASMS Last administered on 09:36; Admin Dose 350 MG; Start 11/11/16 at 12:00 Cinacalcet (Sensipar) 30 mg DAILY PO Last administered on 12/07/16 08:42; Admin Dose 30 MG; Start 11/11/16 at 11:00 Furosemide (Lasix) 80 mg DAILY PO Last administered on 12/05/16 09:28; Admin Dose 80 MG; Start 11/11/16 at 09:30 Losartan Potassium (Cozaar) 50 mg BID PO Last administered on 12/06/16 21:00; Admin Dose 50 MG; Start 11/11/16 at 09:30 Metoprolol Succinate (Toprol Xl) 50 mg BID PO Last administered on 12/06/16 21 :00; Admin Dose 50 MG; Start 11/11/16 at 09:30 Montelukast Sodium (Singulair) 10 mg QAM PO Last administered on 12/07/16 08: 42; Admin Dose 10 MG; Start 11/11/16 at 11:00 Oxycodone/ Acetaminophen (Endocet (10/ 325)) 1 tab Q6 PRN PO PRN Last administered on 12/06/16 16:06; Admin Dose 1 TAB; Start 11/11/16 at 12:00 Pyridoxine HCl (Vitamin B6) 50 mg DAILY PO Last administered on 12/07/16 08:42 ; Admin Dose 50 MG; Start 11/11/16 at 09:30 Tiotropium [place] (Spiriva) 1 inh DAILY INH Last administered on 12/07/16 08: 42; Admin Dose 1 INH; Start 11/11/16 at 11:00 Ondansetron HCl (Zofran Tab) 4 mg Q6H PRN PO NAUSEA AND/OR VOMITING Last administered on 11/22/16 08:46; Admin Dose 4 MG; Start 11/11/16 at 10:00 Salmeterol Xinafoate/ Fluticasone (Advair 250/50 Diskus) 1 inh BID INH Last administered on 12/07/16 08:49; Admin Dose 1 INH; Start 11/11/16 at 11:00 Vancomycin HCl (Vanco Iv Per Pharmacy) PER PHARMACY DOSING NOTE XX ; Start 11/11 at 10:30; Stop 12/11/16 at 18:29 Albuterol (Ventolin Hfa) 2 puff Q4H PRN INH AOB Last administered on 11/25/16 12:06; Admin Dose 2 PUFF; Start 11/11/16 at 10:30 Epoetin Hang (Epogen (Esrd)) 10,000 units TuThSa@17 SC Last administered on 16:57; Admin Dose 10,000 UNITS; Start 11/11/16 at 17:00 Collagenase (Santyl) 1 applic DAILY TOP Last administered on 12/07/16 09:01; Admin Dose 1 APPLIC; Start 11/13/16 at 09:00 Diagnostic Test (Pha) (Accu-Chek) 1 ea 02 XX Last administered on 12/03/16 02: 14; Admin Dose 1 EA; Start 11/14/16 at 02:00 Insulin Detemir (Levemir) 35 unit QHS@20 SC Last administered on 12/06/16 20: 00; Admin Dose 35 UNIT; Start 11/14/16 at 20:00 Nicotine (Nicoderm 21 Mg/ 24hr) 1 patch DAILY TRANSDERM Last administered on 08:50; Admin Dose 1 PATCH; Start 11/14/16 at 20:00 Docusate Sodium (Colace) 100 mg Q12H PO Last administered on 12/06/16 10:04; Admin Dose 100 MG; Start 11/16/16 at 22:00 Miscellaneous Information 1 ea NOTE XX ; Start 11/17/16 at 11:30 Glucose (Glutose) 15 gm Q15M PRN PO DECREASED GLUCOSE; Start 11/17/16 at 11:30 Glucose (Glutose) 22.5 gm Q15M PRN PO DECREASED GLUCOSE; Start 11/17/16 at 11:30 Dextrose (D50w Syringe) 25 ml Q15M PRN IV DECREASED GLUCOSE; Start 11/17/16 at 11:30 Dextrose (D50w Syringe) 50 ml Q15M PRN IV DECREASED GLUCOSE; Start 11/17/16 at 11:30 Glucagon (Glucagen) 1 mg Q15M PRN IM DECREASED GLUCOSE; Start 11/17/16 at 11:30 Glucose (Glutose) 15 gm Q15M PRN BUCCAL DECREASED GLUCOSE; Start 11/17/16 at 11: 30 Polyethylene Glycol (Miralax) 17 gm BID PO Last administered on 12/06/16 10:04 ; Admin Dose 17 GM; Start 11/17/16 at 12:00 Bisacodyl (Dulcolax) 10 mg DAILY PRN PO CONSTIPATION; Start 11/17/16 at 11:30 Diltiazem HCl (Cardizem Cd) 120 mg BID PO Last administered on 12/06/16 21:00 ; Admin Dose 120 MG; Start 11/19/16 at 21:00 Zolpidem Tartrate (Ambien) 5 mg HS PRN PO INSOMNIA Last administered on 02:17; Admin Dose 5 MG; Start 11/19/16 at 21:30 Lorazepam (Ativan) 1 mg Q6H PRN IV AGITATION/ANXIETY Last administered on 04:20; Admin Dose 1 MG; Start 11/21/16 at 21:15 Guaifenesin/ Codeine Phosphate (Robitussin Ac Liquid Cup) 5 ml Q4H PRN PO COUGH Last administered on 12/06/16 16:06; Admin Dose 5 ML; Start 11/21/16 at 21 :30 Morphine Sulfate 2 mg 2 mg Q3H PRN IV for pain Last administered on 12/07/16 02:53; Admin Dose 2 MG; Start 7/12/17 at 18:30 Meropenem/Sodium Chloride (Merrem 500mg/50 ml(Pmx)) 50 ml @ 100 mls/hr Q24H IVPB Last administered on 12/06/16 16:35; Admin Dose 100 MLS/HR; Start at 16:00; Stop 12/11/16 at 15:59 Pantoprazole (Protonix Iv) 40 mg BID@06,18 IV Last administered on 12/07/16 05 :07; Admin Dose 40 MG; Start 12/02/16 at 18:00 Sucralfate (Carafate) 1 gm QID PO Last administered on 12/07/16 12:08; Admin Dose 1 GM; Start 12/03/16 at 17:00 Miscellaneous Information VANCO TR LEVEL PRIOR... ONCE ONCE XX ; Start at 17:30; Stop 12/07/16 at 17:31 Vancomycin HCl (Vancocin) 250 ml @ 125 mls/hr Q96H IVPB ; Start 12/07/16 at 18: 30; Stop 12/11/16 at 18:29 NOÉ CAMARILLO NP Dec 07, 2016 13:16
--- NOTE | 2016-12-07 15:59 | PN ---
Date/Time of Note Date/Time of Note DATE: 12/07/16 TIME: 15:55 Assessment/Plan VTE Prophylaxis VTE Prophylaxis Intervention: SCD's Lines/Catheters [facility] Saline Lock Urinary Cath still in place: No Assessment/Plan Assessment/Plan Anemia EGD Erosive esophagitis proximal displacement EG junction R/O Land esophagus hiatal hernia erosive gastritis * ESRD on hemodialysis MWF * Morbid obesity * Diabetes mellitus * Hypertension * Cellulitis left lower extremity * Pneumonia Plan * signed off but will follow up as needed * continue present management * Protonix 40 mg BID * Case discussed with Dr Trujillo * Further orders will depend on clinical course Subjective 24 Hr Interval Summary Free Text/Dictation * Course reviewed with RN * Patient seen and examined * No untoward events overnight Exam/Review of Systems Vital Signs Vitals Vital Signs Date Time Temp Pulse Resp B/P Pulse Ox O2 Delivery O2 Flow Rate FiO2 12/07/16 15:06 98.4 83 18 136/58 91 12/07/16 11:25 Nasal Cannula 2.0 Intake and Output 12/06/16 12/06/16 12/07/16 15:00 23:00 07:00 Intake Total 500 ml 450 ml 400 ml Output Total 3500 ml 3000 ml Balance -3000 ml -2550 ml 400 ml Exam Constitutional: alert, oriented Head: normocephalic Eyes: nl conjunctiva Neck: non-tender, supple Respiratory: clear to auscultation, normal air movement Cardiovascular: nl pulses, regular rate and rhythm Gastrointestinal: distended, non-tender, soft Musculoskeletal: muscle weakness Extremities: pitting pedal edema Neurological: nl speech Skin: nl turgor, rash or lesions Lymph: nl lymph nodes Results Result Diagram: 12/06/1618 12/06/16 0518 Results 24 hrs Laboratory Tests Test 12/06/16 17:32 12/06/16 20:33 12/06/16 23:26 12/07/16 08:03 Bedside Glucose 197 178 157 161 Test 12/07/16 12:01 Bedside Glucose 156 Medications Medications Current Medications Amlodipine Besylate (Norvasc) 5 mg DAILY PO Last administered on 12/05/16 09: 31; Admin Dose 5 MG; Start 11/11/16 at 09:30 Apixaban (Eliquis) 5 mg BID PO Last administered on 12/01/16 20:36; Admin Dose 5 MG; Start 11/11/16 at 09:30; Status Future Hold Aspirin (Aspirin) 81 mg DAILY PO Last administered on 12/05/16 09:27; Admin Dose 81 MG; Start 11/11/16 at 09:30 Atorvastatin Calcium (Lipitor) 40 mg QHS PO Last administered on 12/06/16 21: 00; Admin Dose 40 MG; Start 11/11/16 at 21:00 Benzonatate (Tessalon) 100 mg Q6 PO Last administered on 12/07/16 12:03; Admin Dose 100 MG; Start 11/11/16 at 12:00 Carisoprodol (Soma) 350 mg Q8 PRN PO MUSCLE SPASMS Last administered on 09:36; Admin Dose 350 MG; Start 11/11/16 at 12:00 Cinacalcet (Sensipar) 30 mg DAILY PO Last administered on 12/07/16 08:42; Admin Dose 30 MG; Start 11/11/16 at 11:00 Furosemide (Lasix) 80 mg DAILY PO Last administered on 12/05/16 09:28; Admin Dose 80 MG; Start 11/11/16 at 09:30 Losartan Potassium (Cozaar) 50 mg BID PO Last administered on 12/06/16 21:00; Admin Dose 50 MG; Start 11/11/16 at 09:30 Metoprolol Succinate (Toprol Xl) 50 mg BID PO Last administered on 12/06/16 21 :00; Admin Dose 50 MG; Start 11/11/16 at 09:30 Montelukast Sodium (Singulair) 10 mg QAM PO Last administered on 12/07/16 08: 42; Admin Dose 10 MG; Start 11/11/16 at 11:00 Oxycodone/ Acetaminophen (Endocet (10/ 325)) 1 tab Q6 PRN PO PRN Last administered on 12/06/16 16:06; Admin Dose 1 TAB; Start 11/11/16 at 12:00 Pyridoxine HCl (Vitamin B6) 50 mg DAILY PO Last administered on 12/07/16 08:42 ; Admin Dose 50 MG; Start 11/11/16 at 09:30 Tiotropium [place] (Spiriva) 1 inh DAILY INH Last administered on 12/07/16 08: 42; Admin Dose 1 INH; Start 11/11/16 at 11:00 Ondansetron HCl (Zofran Tab) 4 mg Q6H PRN PO NAUSEA AND/OR VOMITING Last administered on 11/22/16 08:46; Admin Dose 4 MG; Start 11/11/16 at 10:00 Salmeterol Xinafoate/ Fluticasone (Advair 250/50 Diskus) 1 inh BID INH Last administered on 12/07/16 08:49; Admin Dose 1 INH; Start 11/11/16 at 11:00 Vancomycin HCl (Vanco Iv Per Pharmacy) PER PHARMACY DOSING NOTE XX ; Start 11/11 at 10:30; Stop 12/11/16 at 18:29 Albuterol (Ventolin Hfa) 2 puff Q4H PRN INH AOB Last administered on 11/25/16 12:06; Admin Dose 2 PUFF; Start 11/11/16 at 10:30 Epoetin Hang (Epogen (Esrd)) 10,000 units TuThSa@17 SC Last administered on 16:57; Admin Dose 10,000 UNITS; Start 11/11/16 at 17:00 Collagenase (Santyl) 1 applic DAILY TOP Last administered on 12/07/16 09:01; Admin Dose 1 APPLIC; Start 11/13/16 at 09:00 Diagnostic Test (Pha) (Accu-Chek) 1 ea 02 XX Last administered on 12/03/16 02: 14; Admin Dose 1 EA; Start 11/14/16 at 02:00 Insulin Detemir (Levemir) 35 unit QHS@20 SC Last administered on 12/06/16 20: 00; Admin Dose 35 UNIT; Start 11/14/16 at 20:00 Nicotine (Nicoderm 21 Mg/ 24hr) 1 patch DAILY TRANSDERM Last administered on 08:50; Admin Dose 1 PATCH; Start 11/14/16 at 20:00 Docusate Sodium (Colace) 100 mg Q12H PO Last administered on 12/06/16 10:04; Admin Dose 100 MG; Start 11/16/16 at 22:00 Miscellaneous Information 1 ea NOTE XX ; Start 11/17/16 at 11:30 Glucose (Glutose) 15 gm Q15M PRN PO DECREASED GLUCOSE; Start 11/17/16 at 11:30 Glucose (Glutose) 22.5 gm Q15M PRN PO DECREASED GLUCOSE; Start 11/17/16 at 11:30 Dextrose (D50w Syringe) 25 ml Q15M PRN IV DECREASED GLUCOSE; Start 11/17/16 at 11:30 Dextrose (D50w Syringe) 50 ml Q15M PRN IV DECREASED GLUCOSE; Start 11/17/16 at 11:30 Glucagon (Glucagen) 1 mg Q15M PRN IM DECREASED GLUCOSE; Start 11/17/16 at 11:30 Glucose (Glutose) 15 gm Q15M PRN BUCCAL DECREASED GLUCOSE; Start 11/17/16 at 11: 30 Polyethylene Glycol (Miralax) 17 gm BID PO Last administered on 12/06/16 10:04 ; Admin Dose 17 GM; Start 11/17/16 at 12:00 Bisacodyl (Dulcolax) 10 mg DAILY PRN PO CONSTIPATION; Start 11/17/16 at 11:30 Diltiazem HCl (Cardizem Cd) 120 mg BID PO Last administered on 12/06/16 21:00 ; Admin Dose 120 MG; Start 11/19/16 at 21:00 Zolpidem Tartrate (Ambien) 5 mg HS PRN PO INSOMNIA Last administered on 02:17; Admin Dose 5 MG; Start 11/19/16 at 21:30 Lorazepam (Ativan) 1 mg Q6H PRN IV AGITATION/ANXIETY Last administered on 04:20; Admin Dose 1 MG; Start 11/21/16 at 21:15 Guaifenesin/ Codeine Phosphate (Robitussin Ac Liquid Cup) 5 ml Q4H PRN PO COUGH Last administered on 12/06/16 16:06; Admin Dose 5 ML; Start 11/21/16 at 21 :30 Morphine Sulfate 2 mg 2 mg Q3H PRN IV for pain Last administered on 12/07/16 02:53; Admin Dose 2 MG; Start 11/24/16 at 18:30 Meropenem/Sodium Chloride (Merrem 500mg/50 ml(Pmx)) 50 ml @ 100 mls/hr Q24H IVPB Last administered on 12/06/16 16:35; Admin Dose 100 MLS/HR; Start at 16:00; Stop 12/11/16 at 15:59 Pantoprazole (Protonix Iv) 40 mg BID@06,18 IV Last administered on 12/07/16 05 :07; Admin Dose 40 MG; Start 12/02/16 at 18:00 Sucralfate (Carafate) 1 gm QID PO Last administered on 12/07/16 12:08; Admin Dose 1 GM; Start 12/03/16 at 17:00 Miscellaneous Information VANCO TR LEVEL PRIOR... ONCE ONCE XX ; Start at 17:30; Stop 12/07/16 at 17:31 Vancomycin HCl (Vancocin) 250 ml @ 125 mls/hr Q96H IVPB ; Start 12/07/16 at 18: 30; Stop 12/11/16 at 18:29 JEWELS BOWERS NP Dec 07, 2016 15:59
[2016-12-07] MEDS: MEROPENEM 500MG/50 ML (PMX) 50 ML IVPB SCH (17:52)
[2016-12-07] MEDS: EPOETIN 10000 UNITS/1 ML INJ (ESRD) SC SCH (17:56)
[2016-12-07] MEDS ORDERED: VANCOMYCIN 1 GM in NS 250 ML IVPB SCH (18:30)
[2016-12-07] MEDS: ATORVASTATIN 40 MG TAB PO SCH (20:23)
[2016-12-07] MEDS: OXYCODONE/ACETAMINOPHEN (10/325) TAB PO PRN (21:51)
[2016-12-07] MEDS: INSULIN DETEMIR [LEVEMIR] 3ML CART SC SCH (21:52)
[2016-12-08] MEDS: ACCU-CHEK XX SCH (01:59)
[2016-12-08 02:00] VITALS: BP 100/51; RESP 19
[2016-12-08] MEDS: BENZONATATE 100 MG CAP PO SCH ×6 (03:07→23:01)
[2016-12-08] MEDS: morphine 2 MG INJ IV PRN ×3 (04:00→17:11)
[2016-12-08] MEDS: PANTOPRAZOLE 40 MG INJ IV SCH ×2 (05:45→17:11)
[2016-12-08] MEDS: LORAZEPAM 2 MG INJ IV PRN ×2 (06:30→23:38)
[2016-12-08 08:00] VITALS: BP 111/57; RESP 16
[2016-12-08] MEDS: INSULIN ASPART [NOVOLOG] 3 ML PEN SC SCH ×4 (08:00→20:20)
[2016-12-08] MEDS: METOCLOPRAMIDE 5 MG TAB PO SCH ×3 (09:10→17:11)
[2016-12-08] MEDS: SUCRALFATE 1 GM TAB PO SCH ×4 (09:10→20:19)
[2016-12-08] MEDS: CALCIUM ACETATE 667 MG CAP PO SCH ×3 (09:10→17:11)
[2016-12-08] MEDS: CINACALCET 30 MG TAB PO SCH (09:10)
[2016-12-08] MEDS: MONTELUKAST 10 MG TAB PO SCH (09:10)
[2016-12-08] MEDS: TIOTROPIUM 18 MCG CAPSULE INHA DEV INH SCH (09:11)
[2016-12-08] MEDS: FUROSEMIDE 40 MG TAB PO SCH (09:11)
[2016-12-08] MEDS: ASPIRIN 81 MG TAB PO SCH (09:11)
[2016-12-08] MEDS: PYRIDOXINE 50 MG TAB PO SCH (09:11)
[2016-12-08] MEDS: DILTIAZEM (CD) 120 MG CAP PO SCH ×2 (09:12→23:01)
[2016-12-08] MEDS: AMLODIPINE 5 MG TAB PO SCH (09:12)
[2016-12-08] MEDS: SALMETEROL/FLUTICASONE 250/50 INHA INH SCH ×2 (09:13→20:19)
[2016-12-08] MEDS: NICOTINE (21 MG/24 HR) PATCH TRANSDERM SCH (09:13)
[2016-12-08] MEDS: COLLAGENASE 30 GM TUBE TOP SCH (09:14)
[2016-12-08] MEDS ORDERED: VANCOMYCIN 500MG/NS (PMX) 100 ML IVPB SCH (10:00)
[2016-12-08] MEDS: DOCUSATE SODIUM 100 MG CAP PO SCH ×2 (12:49→22:00)
[2016-12-08] MEDS: METOPROLOL (XL) 50 MG TAB PO SCH ×2 (12:55→20:19)
[2016-12-08] MEDS: LOSARTAN 50 MG TAB PO SCH ×2 (12:55→20:19)
[2016-12-08 14:00] VITALS: BP 123/61; RESP 16
[2016-12-08] MEDS: MEROPENEM 500MG/50 ML (PMX) 50 ML IVPB SCH (18:39)
--- NOTE | 2016-12-08 19:22 | PN ---
Date/Time of Note Date/Time of Note DATE: 12/08/16 TIME: 19:22 Assessment/Plan VTE Prophylaxis VTE Prophylaxis Intervention: LMWH Lines/Catheters IV C[facility]ter Type (from [facility]): Saline Lock Urinary Cath still in place: No Assessment/Plan Chief Complaint/Hosp Course Continue current management as previously described Problems: Subjective 24 Hr Interval Summary Free Text/Dictation No change to patients clinical status Exam/Review of Systems Vital Signs Vitals Vital Signs Date Time Temp Pulse Resp B/P Pulse Ox O2 Delivery O2 Flow Rate FiO2 12/08/16 14:00 97.9 115 16 123/61 92 12/08/16 11:35 Nasal Cannula 2.0 Intake and Output 12/07/16 12/07/16 12/08/16 15:00 23:00 07:00 Intake Total 500 ml 1500 ml 450 ml Output Total 2500 ml 2000 ml Balance -2000 ml -500 ml 450 ml Results Result Diagram: 12/06/16 0518 12/06/16 0518 Results 24 hrs Laboratory Tests Test 12/07/16 20:17 12/07/16 21:50 12/08/16 07:49 12/08/16 11:58 Bedside Glucose 156 136 83 115 Test 12/08/16 17:29 Bedside Glucose 102 Medications Medications Current Medications Amlodipine Besylate (Norvasc) 5 mg DAILY PO Last administered on 12/08/16 09: 12; Admin Dose 5 MG; Start 11/11/16 at 09:30 Apixaban (Eliquis) 5 mg BID PO Last administered on 12/01/16 20:36; Admin Dose 5 MG; Start 11/11/16 at 09:30; Status Future Hold Aspirin (Aspirin) 81 mg DAILY PO Last administered on 12/08/16 09:11; Admin Dose 81 MG; Start 11/11/16 at 09:30 Atorvastatin Calcium (Lipitor) 40 mg QHS PO Last administered on 12/07/16 20: 23; Admin Dose 40 MG; Start 11/11/16 at 21:00 Benzonatate (Tessalon) 100 mg Q6 PO Last administered on 12/08/16 17:11; Admin Dose 100 MG; Start 11/11/16 at 12:00 Carisoprodol (Soma) 350 mg Q8 PRN PO MUSCLE SPASMS Last administered on 09:36; Admin Dose 350 MG; Start 11/11/16 at 12:00 Cinacalcet (Sensipar) 30 mg DAILY PO Last administered on 12/08/16 09:10; Admin Dose 30 MG; Start 11/11/16 at 11:00 Furosemide (Lasix) 80 mg DAILY PO Last administered on 12/08/16 09:11; Admin Dose 80 MG; Start 11/11/16 at 09:30 Losartan Potassium (Cozaar) 50 mg BID PO Last administered on 12/08/16 12:55; Admin Dose 50 MG; Start 11/11/16 at 09:30 Metoprolol Succinate (Toprol Xl) 50 mg BID PO Last administered on 12/08/16 12 :55; Admin Dose 50 MG; Start 11/11/16 at 09:30 Montelukast Sodium (Singulair) 10 mg QAM PO Last administered on 12/08/16 09: 10; Admin Dose 10 MG; Start 11/11/16 at 11:00 Oxycodone/ Acetaminophen (Endocet ( 325)) 1 tab Q6 PRN PO PRN Last administered on 12/07/16 21:51; Admin Dose 1 TAB; Start 11/11/16 at 12:00 Pyridoxine HCl (Vitamin B6) 50 mg DAILY PO Last administered on 12/08/16 09:11 ; Admin Dose 50 MG; Start 11/11/16 at 09:30 Tiotropium [place] (Spiriva) 1 inh DAILY INH Last administered on 12/08/16 09: 11; Admin Dose 1 INH; Start 11/11/16 at 11:00 Ondansetron HCl (Zofran Tab) 4 mg Q6H PRN PO NAUSEA AND/OR VOMITING Last administered on 11/22/16 08:46; Admin Dose 4 MG; Start 11/11/16 at 10:00 Salmeterol Xinafoate/ Fluticasone (Advair 250/50 Diskus) 1 inh BID INH Last administered on 12/08/16 09:13; Admin Dose 1 INH; Start 11/11/16 at 11:00 Vancomycin HCl (Vanco Iv Per Pharmacy) PER PHARMACY DOSING NOTE XX ; Start 11/11 at 10:30; Stop 12/11/16 at 18:29 Albuterol (Ventolin Hfa) 2 puff Q4H PRN INH AOB Last administered on 11/25/16 12:06; Admin Dose 2 PUFF; Start 11/11/16 at 10:30 Epoetin Hang (Epogen (Esrd)) 10,000 units TuThSa@17 SC Last administered on 17:56; Admin Dose 10,000 UNITS; Start 11/11/16 at 17:00 Collagenase (Santyl) 1 applic DAILY TOP Last administered on 12/08/16 09:14; Admin Dose 1 APPLIC; Start 11/13/16 at 09:00 Diagnostic Test (Pha) (Accu-Chek) 1 ea 02 XX Last administered on 12/03/16 02: 14; Admin Dose 1 EA; Start 11/14/16 at 02:00 Insulin Detemir (Levemir) 35 unit QHS@20 SC Last administered on 12/07/16 21: 52; Admin Dose 35 UNIT; Start 11/14/16 at 20:00 Nicotine (Nicoderm 21 Mg/ 24hr) 1 patch DAILY TRANSDERM Last administered on 09:13; Admin Dose 1 PATCH; Start 11/14/16 at 20:00 Docusate Sodium (Colace) 100 mg Q12H PO Last administered on 12/08/16 12:49; Admin Dose 100 MG; Start 11/16/16 at 22:00 Miscellaneous Information 1 ea NOTE XX ; Start 11/17/16 at 11:30 Glucose (Glutose) 15 gm Q15M PRN PO DECREASED GLUCOSE; Start 11/17/16 at 11:30 Glucose (Glutose) 22.5 gm Q15M PRN PO DECREASED GLUCOSE; Start 11/17/16 at 11:30 Dextrose (D50w Syringe) 25 ml Q15M PRN IV DECREASED GLUCOSE; Start 11/17/16 at 11:30 Dextrose (D50w Syringe) 50 ml Q15M PRN IV DECREASED GLUCOSE; Start 11/17/16 at 11:30 Glucagon (Glucagen) 1 mg Q15M PRN IM DECREASED GLUCOSE; Start 11/17/16 at 11:30 Glucose (Glutose) 15 gm Q15M PRN BUCCAL DECREASED GLUCOSE; Start 11/17/16 at 11: 30 Polyethylene Glycol (Miralax) 17 gm BID PO Last administered on 12/06/16 10:04 ; Admin Dose 17 GM; Start 11/17/16 at 12:00 Bisacodyl (Dulcolax) 10 mg DAILY PRN PO CONSTIPATION; Start 11/17/16 at 11:30 Diltiazem HCl (Cardizem Cd) 120 mg BID PO Last administered on 12/08/16 09:12 ; Admin Dose 120 MG; Start 11/19/16 at 21:00 Zolpidem Tartrate (Ambien) 5 mg HS PRN PO INSOMNIA Last administered on 02:17; Admin Dose 5 MG; Start 11/19/16 at 21:30 Lorazepam (Ativan) 1 mg Q6H PRN IV AGITATION/ANXIETY Last administered on 06:30; Admin Dose 1 MG; Start 11/21/16 at 21:15 Guaifenesin/ Codeine Phosphate (Robitussin Ac Liquid Cup) 5 ml Q4H PRN PO COUGH Last administered on 12/06/16 16:06; Admin Dose 5 ML; Start 11/21/16 at 21 :30 Morphine Sulfate 2 mg 2 mg Q3H PRN IV for pain Last administered on 12/08/16 17:11; Admin Dose 2 MG; Start 11/24/16 at 18:30 Meropenem/Sodium Chloride (Merrem 500mg/50 ml(Pmx)) 50 ml @ 100 mls/hr Q24H IVPB Last administered on 12/08/16 18:39; Admin Dose 100 MLS/HR; Start at 16:00; Stop 12/11/16 at 15:59 Pantoprazole (Protonix Iv) 40 mg BID@06,18 IV Last administered on 12/08/16 17 :11; Admin Dose 40 MG; Start 12/02/16 at 18:00 Sucralfate 1 gm 1 gm QID PO Last administered on 12/08/16 17:11; Admin Dose 1 GM; Start 12/03/16 at 17:00 Vancomycin HCl (Vancocin) 250 ml @ 125 mls/hr Q96H IVPB Last administered on 19:58; Admin Dose 125 MLS/HR; Start 12/07/16 at 18:30; Stop 12/11/16 at 18:29 AMERICO HOWARD MD Dec 08, 2016 19:22
[2016-12-08 19:56] VITALS: BP 122/58; RESP 17
--- NOTE | 2016-12-08 19:59 | CONS ---
Date/Time of Note Date/Time of Note DATE: 12/08/16 TIME: 19:56 Assessment/Plan Assessment/Plan Chief Complaint/Hosp Course ID PROGRESS NOTE ABX DAY # Vancomycin IV , Meropenem. 24H INTERVAL SUMMARY * No new issues ->resting comfortably * Pt is resting comfortably, NAD, VSS no fevers, NAD PHYSICAL EXAMINATION: GENERAL: VSS, NAD, no fever, obese F HEENT: Unremarkable NECK: Trach midline CHEST: Equal chest rise bilaterally, without dyspnea on observation HEART: Pulse RRR ABDOMEN: Soft, left flank pain EXTREMITIES: Warm SKIN: Warm, dry, edema BLEXT w/wound vac ID ASSESSMENT: 61 yo super morbid obese F admitted with: 1. Acute encephalopathy, likely toxic metabolic 2. Bilateral lower extremities chronic venous stasis with chronic cellulitis and left hip wound, s/p debridement and wound vac application 10/19/16. 3. End-stage renal disease, on hemodialysis. * Left upper extremity AV fistula 4. Healthcare associated pneumonia, possibly aspiration = CLINICALLY IMPROVED * CXR 11/26/16: There is air space disease at the right lung base consistent with pneumonia, unchanged. There is a small right pleural effusion, unchanged. 5. Atrial fibrillation. 6. COPD - stable 7. Diabetes 8. Hx of falls -> limited mobility due to super morbid obesity ABX ALLERGIES: PCN, CIPRO CURRENT ABX: ABX DAY # => Vancomycin IV , Meropenem. ID RECOMMENDATIONS: 1. Continue current ABX until last day per notes 12/11/16 2. DC Planning to SNF w/wound VAC Tx, may TNS on current ABX until last day . Problems: Consultation Date/Type/Reason Admit Date/Time Nov 11, 2016 at 06:40 Initial Consult Date 11/12/16 Type of Consultation: id Referring Provider: ERICK MATOS Exam/Review of Systems Vital Signs Vitals Vital Signs Date Time Temp Pulse Resp B/P Pulse Ox O2 Delivery O2 Flow Rate FiO2 12/08/16 14:00 97.9 115 16 123/61 92 12/08/16 11:35 Nasal Cannula 2.0 Intake and Output 12/07/16 12/07/16 12/08/16 15:00 23:00 07:00 Intake Total 500 ml 1500 ml 450 ml Output Total 2500 ml 2000 ml Balance -2000 ml -500 ml 450 ml Results Result Diagram: 12/06/16 0518 12/06/16 0518 Results 24 hrs Laboratory Tests Test 12/07/16 20:17 12/07/16 21:50 12/08/16 07:49 12/08/16 11:58 Bedside Glucose 156 136 83 115 Test 12/08/16 17:29 Bedside Glucose 102 Medications Medications Current Medications Amlodipine Besylate (Norvasc) 5 mg DAILY PO Last administered on 12/08/16 09: 12; Admin Dose 5 MG; Start 11/11/16 at 09:30 Apixaban (Eliquis) 5 mg BID PO Last administered on 12/01/16 20:36; Admin Dose 5 MG; Start 11/11/16 at 09:30; Status Future Hold Aspirin (Aspirin) 81 mg DAILY PO Last administered on 12/08/16 09:11; Admin Dose 81 MG; Start 11/11/16 at 09:30 Atorvastatin Calcium (Lipitor) 40 mg QHS PO Last administered on 12/07/16 20: 23; Admin Dose 40 MG; Start 11/11/16 at 21:00 Benzonatate (Tessalon) 100 mg Q6 PO Last administered on 12/08/16 17:11; Admin Dose 100 MG; Start 11/11/16 at 12:00 Carisoprodol (Soma) 350 mg Q8 PRN PO MUSCLE SPASMS Last administered on 09:36; Admin Dose 350 MG; Start 11/11/16 at 12:00 Cinacalcet (Sensipar) 30 mg DAILY PO Last administered on 12/08/16 09:10; Admin Dose 30 MG; Start 11/11/16 at 11:00 Furosemide (Lasix) 80 mg DAILY PO Last administered on 12/08/16 09:11; Admin Dose 80 MG; Start 11/11/16 at 09:30 Losartan Potassium (Cozaar) 50 mg BID PO Last administered on 12/08/16 12:55; Admin Dose 50 MG; Start 11/11/16 at 09:30 Metoprolol Succinate (Toprol Xl) 50 mg BID PO Last administered on 12/08/16 12 :55; Admin Dose 50 MG; Start 11/11/16 at 09:30 Montelukast Sodium (Singulair) 10 mg QAM PO Last administered on 12/08/16 09: 10; Admin Dose 10 MG; Start 11/11/16 at 11:00 Oxycodone/ Acetaminophen (Endocet (10)) 1 tab Q6 PRN PO PRN Last administered on 12/07/16 21:51; Admin Dose 1 TAB; Start 11/11/16 at 12:00 Pyridoxine HCl (Vitamin B6) 50 mg DAILY PO Last administered on 12/08/16 09:11 ; Admin Dose 50 MG; Start 11/11/16 at 09:30 Tiotropium [place] (Spiriva) 1 inh DAILY INH Last administered on 12/08/16 09: 11; Admin Dose 1 INH; Start 11/11/16 at 11:00 Ondansetron HCl (Zofran Tab) 4 mg Q6H PRN PO NAUSEA AND/OR VOMITING Last administered on 11/22/16 08:46; Admin Dose 4 MG; Start 11/11/16 at 10:00 Salmeterol Xinafoate/ Fluticasone (Advair 250/50 Diskus) 1 inh BID INH Last administered on 12/08/16 09:13; Admin Dose 1 INH; Start 11/11/16 at 11:00 Vancomycin HCl (Vanco Iv Per Pharmacy) PER PHARMACY DOSING NOTE XX ; Start 11/11 at 10:30; Stop 12/11/16 at 18:29 Albuterol (Ventolin Hfa) 2 puff Q4H PRN INH AOB Last administered on 11/25/16 12:06; Admin Dose 2 PUFF; Start 11/11/16 at 10:30 Epoetin Hang (Epogen (Esrd)) 10,000 units TuThSa@17 SC Last administered on 17:56; Admin Dose 10,000 UNITS; Start 11/11/16 at 17:00 Collagenase (Santyl) 1 applic DAILY TOP Last administered on 12/08/16 09:14; Admin Dose 1 APPLIC; Start 11/13/16 at 09:00 Diagnostic Test (Pha) (Accu-Chek) 1 ea 02 XX Last administered on 12/03/16 02: 14; Admin Dose 1 EA; Start 11/14/16 at 02:00 Insulin Detemir (Levemir) 35 unit QHS@20 SC Last administered on 12/07/16 21: 52; Admin Dose 35 UNIT; Start 11/14/16 at 20:00 Nicotine (Nicoderm 21 Mg/ 24hr) 1 patch DAILY TRANSDERM Last administered on 09:13; Admin Dose 1 PATCH; Start 11/14/16 at 20:00 Docusate Sodium (Colace) 100 mg Q12H PO Last administered on 12/08/16 12:49; Admin Dose 100 MG; Start 11/16/16 at 22:00 Miscellaneous Information 1 ea NOTE XX ; Start 11/17/16 at 11:30 Glucose (Glutose) 15 gm Q15M PRN PO DECREASED GLUCOSE; Start 11/17/16 at 11:30 Glucose (Glutose) 22.5 gm Q15M PRN PO DECREASED GLUCOSE; Start 11/17/16 at 11:30 Dextrose (D50w Syringe) 25 ml Q15M PRN IV DECREASED GLUCOSE; Start 11/17/16 at 11:30 Dextrose (D50w Syringe) 50 ml Q15M PRN IV DECREASED GLUCOSE; Start 11/17/16 at 11:30 Glucagon (Glucagen) 1 mg Q15M PRN IM DECREASED GLUCOSE; Start 11/17/16 at 11:30 Glucose (Glutose) 15 gm Q15M PRN BUCCAL DECREASED GLUCOSE; Start 11/17/16 at 11: 30 Polyethylene Glycol (Miralax) 17 gm BID PO Last administered on 12/06/16 10:04 ; Admin Dose 17 GM; Start 11/17/16 at 12:00 Bisacodyl (Dulcolax) 10 mg DAILY PRN PO CONSTIPATION; Start 11/17/16 at 11:30 Diltiazem HCl (Cardizem Cd) 120 mg BID PO Last administered on 12/08/16 09:12 ; Admin Dose 120 MG; Start 11/19/16 at 21:00 Zolpidem Tartrate (Ambien) 5 mg HS PRN PO INSOMNIA Last administered on 02:17; Admin Dose 5 MG; Start 11/19/16 at 21:30 Lorazepam (Ativan) 1 mg Q6H PRN IV AGITATION/ANXIETY Last administered on 06:30; Admin Dose 1 MG; Start 11/21/16 at 21:15 Guaifenesin/ Codeine Phosphate (Robitussin Ac Liquid Cup) 5 ml Q4H PRN PO COUGH Last administered on 12/06/16 16:06; Admin Dose 5 ML; Start 11/21/16 at 21 :30 Morphine Sulfate 2 mg 2 mg Q3H PRN IV for pain Last administered on 12/08/16 17:11; Admin Dose 2 MG; Start 11/24/16 at 18:30 Meropenem/Sodium Chloride (Merrem 500mg/50 ml(Pmx)) 50 ml @ 100 mls/hr Q24H IVPB Last administered on 12/08/16 18:39; Admin Dose 100 MLS/HR; Start at 16:00; Stop 12/11/16 at 15:59 Pantoprazole (Protonix Iv) 40 mg BID@06,18 IV Last administered on 12/08/16 17 :11; Admin Dose 40 MG; Start 12/02/16 at 18:00 Sucralfate 1 gm 1 gm QID PO Last administered on 12/08/16 17:11; Admin Dose 1 GM; Start 12/03/16 at 17:00 Vancomycin HCl (Vancocin) 250 ml @ 125 mls/hr Q96H IVPB Last administered on 19:58; Admin Dose 125 MLS/HR; Start 12/07/16 at 18:30; Stop 12/11/16 at 18:29 STEFAN COMBS [employer] Dec 08, 2016 19:59
[2016-12-08] MEDS: ATORVASTATIN 40 MG TAB PO SCH (20:19)
[2016-12-08] MEDS: INSULIN DETEMIR [LEVEMIR] 3ML CART SC SCH (20:20)
[2016-12-08] MEDS: POLYETHYLENE GLYCOL 17 GM PACKET PO SCH (20:32)
[2016-12-08 23:06] VITALS: BP 118/60
[2016-12-09] VITALS (11 sets, daily range): BP systolic 106–131; BP diastolic 55–69; PULSE 80–92; RESP 17–20
[2016-12-09] MEDS: ACCU-CHEK XX SCH (02:00)
[2016-12-09] MEDS: morphine 2 MG INJ IV PRN ×4 (03:28→23:59)
[2016-12-09] MEDS: PANTOPRAZOLE 40 MG INJ IV SCH ×2 (05:27→17:23)
[2016-12-09] MEDS: BENZONATATE 100 MG CAP PO SCH ×4 (05:27→23:26)
[2016-12-09] MEDS: INSULIN ASPART [NOVOLOG] 3 ML PEN SC SCH ×4 (08:00→20:53)
[2016-12-09] MEDS: CALCIUM ACETATE 667 MG CAP PO SCH ×3 (08:05→17:24)
[2016-12-09] MEDS: METOCLOPRAMIDE 5 MG TAB PO SCH ×3 (08:05→17:24)
[2016-12-09] MEDS: NICOTINE (21 MG/24 HR) PATCH TRANSDERM SCH (08:53)
[2016-12-09] MEDS: SALMETEROL/FLUTICASONE 250/50 INHA INH SCH ×2 (08:53→20:51)
[2016-12-09] MEDS: SUCRALFATE 1 GM TAB PO SCH ×4 (08:59→20:52)
[2016-12-09] MEDS: TIOTROPIUM 18 MCG CAPSULE INHA DEV INH SCH (08:59)
[2016-12-09] MEDS: MONTELUKAST 10 MG TAB PO SCH (08:59)
[2016-12-09] MEDS: CINACALCET 30 MG TAB PO SCH (08:59)
[2016-12-09] MEDS: ASPIRIN 81 MG TAB PO SCH (09:00)
[2016-12-09] MEDS: POLYETHYLENE GLYCOL 17 GM PACKET PO SCH ×2 (09:00→20:52)
[2016-12-09] MEDS: FUROSEMIDE 40 MG TAB PO SCH (09:00)
[2016-12-09] MEDS: DOCUSATE SODIUM 100 MG CAP PO SCH ×2 (09:00→22:00)
[2016-12-09] MEDS: COLLAGENASE 30 GM TUBE TOP SCH (09:00)
[2016-12-09] MEDS: METOPROLOL (XL) 50 MG TAB PO SCH ×2 (09:00→20:52)
[2016-12-09] MEDS: LOSARTAN 50 MG TAB PO SCH ×2 (09:00→20:51)
[2016-12-09] MEDS: DILTIAZEM (CD) 120 MG CAP PO SCH ×2 (09:00→21:47)
[2016-12-09] MEDS: AMLODIPINE 5 MG TAB PO SCH (09:00)
[2016-12-09] MEDS: PYRIDOXINE 50 MG TAB PO SCH (09:14)
--- NOTE | 2016-12-09 15:35 | CONS ---
Date/Time of Note Date/Time of Note DATE: 12/09/16 TIME: 15:32 Assessment/Plan Assessment/Plan Chief Complaint/Hosp Course ID PROGRESS NOTE ABX DAY # Vancomycin IV , Meropenem. 24H INTERVAL SUMMARY * Chronic debility -- morbid obese -- lethargic s/p HD earlier today w/1.7 L out , per nursing she refuses to allow repositioning -- she is on pressure reducing bed * Pt is resting comfortably, NAD, VSS no fevers, NAD PHYSICAL EXAMINATION: GENERAL: VSS, NAD, no fever, obese F HEENT: Unremarkable NECK: Trach midline CHEST: Equal chest rise bilaterally, without dyspnea on observation HEART: Pulse RRR ABDOMEN: Soft, left flank pain EXTREMITIES: Warm SKIN: Warm, dry, edema BLEXT w/wound vac ID ASSESSMENT: 61 yo super morbid obese F admitted with: 1. Acute encephalopathy, likely toxic metabolic 2. Bilateral lower extremities chronic venous stasis with chronic cellulitis and left hip wound, s/p debridement and wound vac application 10/19/16. 3. End-stage renal disease, on hemodialysis. * Left upper extremity AV fistula 4. Healthcare associated pneumonia, possibly aspiration = CLINICALLY IMPROVED * CXR 11/26/16: There is air space disease at the right lung base consistent with pneumonia, unchanged. There is a small right pleural effusion, unchanged. 5. Atrial fibrillation. 6. COPD - stable 7. Diabetes 8. Hx of falls -> limited mobility due to super morbid obesity ABX ALLERGIES: PCN, CIPRO CURRENT ABX: ABX DAY # => Vancomycin IV , Meropenem. ID RECOMMENDATIONS: 1. Continue current ABX until last day per notes 12/11/16 2. DC Planning to SNF w/wound VAC Tx, may TNS on current ABX until last day . Problems: Consultation Date/Type/Reason Admit Date/Time Nov 11, 2016 at 06:40 Initial Consult Date 11/12/16 Type of Consultation: id Referring Provider: ERICK MATOS Exam/Review of Systems Vital Signs Vitals Vital Signs Date Time Temp Pulse Resp B/P Pulse Ox O2 Delivery O2 Flow Rate FiO2 12/09/16 14:18 Nasal Cannula 2.0 12/09/16 12:00 89 12/09/16 12:00 20 12/09/16 08:00 98.6 106/69 96 Intake and Output 7/26/17 7/26/17 7/27/17 15:00 23:00 07:00 Intake Total 750 ml 400 ml Balance 750 ml 400 ml Results Result Diagram: 12/06/16 0518 12/06/16 0518 Results 24 hrs Laboratory Tests Test 12/08/16 17:29 12/08/16 20:17 12/09/16 08:06 12/09/16 12:29 Bedside Glucose 102 121 128 153 Medications Medications Current Medications Amlodipine Besylate (Norvasc) 5 mg DAILY PO Last administered on 12/08/16 09: 12; Admin Dose 5 MG; Start 11/11/16 at 09:30 Apixaban (Eliquis) 5 mg BID PO Last administered on 12/01/16 20:36; Admin Dose 5 MG; Start 11/11/16 at 09:30; Status Future Hold Aspirin (Aspirin) 81 mg DAILY PO Last administered on 12/08/16 09:11; Admin Dose 81 MG; Start 11/11/16 at 09:30 Atorvastatin Calcium (Lipitor) 40 mg QHS PO Last administered on 12/08/16 20: 19; Admin Dose 40 MG; Start 11/11/16 at 21:00 Benzonatate (Tessalon) 100 mg Q6 PO Last administered on 12/09/16 12:26; Admin Dose 100 MG; Start 11/11/16 at 12:00 Carisoprodol (Soma) 350 mg Q8 PRN PO MUSCLE SPASMS Last administered on 09:36; Admin Dose 350 MG; Start 11/11/16 at 12:00 Cinacalcet (Sensipar) 30 mg DAILY PO Last administered on 12/09/16 08:59; Admin Dose 30 MG; Start 11/11/16 at 11:00 Furosemide (Lasix) 80 mg DAILY PO Last administered on 12/08/16 09:11; Admin Dose 80 MG; Start 11/11/16 at 09:30 Losartan Potassium (Cozaar) 50 mg BID PO Last administered on 12/08/16 20:19; Admin Dose 50 MG; Start 11/11/16 at 09:30 Metoprolol Succinate (Toprol Xl) 50 mg BID PO Last administered on 12/08/16 20 :19; Admin Dose 50 MG; Start 11/11/16 at 09:30 Montelukast Sodium (Singulair) 10 mg QAM PO Last administered on 12/09/16 08: 59; Admin Dose 10 MG; Start 11/11/16 at 11:00 Oxycodone/ Acetaminophen (Endocet (10/ 325)) 1 tab Q6 PRN PO PRN Last administered on 12/07/16 21:51; Admin Dose 1 TAB; Start 11/11/16 at 12:00 Pyridoxine HCl (Vitamin B6) 50 mg DAILY PO Last administered on 12/09/16 09:14 ; Admin Dose 50 MG; Start 11/11/16 at 09:30 Tiotropium [place] (Spiriva) 1 inh DAILY INH Last administered on 12/09/16 08: 59; Admin Dose 1 INH; Start 11/11/16 at 11:00 Ondansetron HCl (Zofran Tab) 4 mg Q6H PRN PO NAUSEA AND/OR VOMITING Last administered on 11/22/16 08:46; Admin Dose 4 MG; Start 11/11/16 at 10:00 Salmeterol Xinafoate/ Fluticasone (Advair 250/50 Diskus) 1 inh BID INH Last administered on 12/09/16 08:53; Admin Dose 1 INH; Start 11/11/16 at 11:00 Vancomycin HCl (Vanco Iv Per Pharmacy) PER PHARMACY DOSING NOTE XX ; Start 11/11 at 10:30; Stop 12/11/16 at 18:29 Albuterol (Ventolin Hfa) 2 puff Q4H PRN INH AOB Last administered on 11/25/16 12:06; Admin Dose 2 PUFF; Start 11/11/16 at 10:30 Epoetin Hang (Epogen (Esrd)) 10,000 units TuThSa@17 SC Last administered on 17:56; Admin Dose 10,000 UNITS; Start 11/11/16 at 17:00 Collagenase (Santyl) 1 applic DAILY TOP Last administered on 12/08/16 09:14; Admin Dose 1 APPLIC; Start 11/13/16 at 09:00 Diagnostic Test (Pha) (Accu-Chek) 1 ea 02 XX Last administered on 12/03/16 02: 14; Admin Dose 1 EA; Start 11/14/16 at 02:00 Insulin Detemir (Levemir) 35 unit QHS@20 SC Last administered on 12/08/16 20: 20; Admin Dose 35 UNIT; Start 11/14/16 at 20:00 Nicotine (Nicoderm 21 Mg/ 24hr) 1 patch DAILY TRANSDERM Last administered on 08:53; Admin Dose 1 PATCH; Start 11/14/16 at 20:00 Docusate Sodium (Colace) 100 mg Q12H PO Last administered on 12/08/16 12:49; Admin Dose 100 MG; Start 11/16/16 at 22:00 Miscellaneous Information 1 ea NOTE XX ; Start 11/17/16 at 11:30 Glucose (Glutose) 15 gm Q15M PRN PO DECREASED GLUCOSE; Start 11/17/16 at 11:30 Glucose (Glutose) 22.5 gm Q15M PRN PO DECREASED GLUCOSE; Start 11/17/16 at 11:30 Dextrose (D50w Syringe) 25 ml Q15M PRN IV DECREASED GLUCOSE; Start 11/17/16 at 11:30 Dextrose (D50w Syringe) 50 ml Q15M PRN IV DECREASED GLUCOSE; Start 11/17/16 at 11:30 Glucagon (Glucagen) 1 mg Q15M PRN IM DECREASED GLUCOSE; Start 11/17/16 at 11:30 Glucose (Glutose) 15 gm Q15M PRN BUCCAL DECREASED GLUCOSE; Start 11/17/16 at 11: 30 Polyethylene Glycol (Miralax) 17 gm BID PO Last administered on 12/06/16 10:04 ; Admin Dose 17 GM; Start 11/17/16 at 12:00 Bisacodyl (Dulcolax) 10 mg DAILY PRN PO CONSTIPATION; Start 11/17/16 at 11:30 Diltiazem HCl (Cardizem Cd) 120 mg BID PO Last administered on 12/08/16 23:01 ; Admin Dose 120 MG; Start 11/19/16 at 21:00 Zolpidem Tartrate (Ambien) 5 mg HS PRN PO INSOMNIA Last administered on 02:17; Admin Dose 5 MG; Start 11/19/16 at 21:30 Lorazepam (Ativan) 1 mg Q6H PRN IV AGITATION/ANXIETY Last administered on 23:38; Admin Dose 1 MG; Start 11/21/16 at 21:15 Guaifenesin/ Codeine Phosphate (Robitussin Ac Liquid Cup) 5 ml Q4H PRN PO COUGH Last administered on 12/06/16 16:06; Admin Dose 5 ML; Start 11/21/16 at 21 :30 Morphine Sulfate 2 mg 2 mg Q3H PRN IV for pain Last administered on 12/09/16 03:28; Admin Dose 2 MG; Start 11/24/16 at 18:30 Meropenem/Sodium Chloride (Merrem 500mg/50 ml(Pmx)) 50 ml @ 100 mls/hr Q24H IVPB Last administered on 12/08/16 18:39; Admin Dose 100 MLS/HR; Start at 16:00; Stop 12/11/16 at 15:59 Pantoprazole (Protonix Iv) 40 mg BID@06,18 IV Last administered on 12/09/16 05 :27; Admin Dose 40 MG; Start 12/02/16 at 18:00 Sucralfate 1 gm 1 gm QID PO Last administered on 12/09/16 12:27; Admin Dose 1 GM; Start 12/03/16 at 17:00 Vancomycin HCl (Vancocin) 250 ml @ 125 mls/hr Q96H IVPB Last administered on 19:58; Admin Dose 125 MLS/HR; Start 12/07/16 at 18:30; Stop 12/11/16 at 18:29 STEFAN COMBS NP Dec 09, 2016 15:34
[2016-12-09] MEDS: MEROPENEM 500MG/50 ML (PMX) 50 ML IVPB SCH (16:07)
--- NOTE | 2016-12-09 17:18 | PN ---
Date/Time of Note Date/Time of Note DATE: 12/09/16 TIME: 17:17 Assessment/Plan VTE Prophylaxis VTE Prophylaxis Intervention: heparin Lines/Catheters IV [facility]from [facility] [place] Urinary Cath still in place: No Assessment/Plan Chief Complaint/Hosp Course ESRD: - Continue HD per renal Pneumonia: - Complete abx per ID on 12/11 Wound vac to leg wounds Planning on dispo to SNF Problems: Subjective 24 Hr Interval Summary Free Text/Dictation Underwent HD today Quite ornery today with me and with staff Exam/Review of Systems Vital Signs Vitals Vital Signs Date Time Temp Pulse Resp B/P Pulse Ox O2 Delivery O2 Flow Rate FiO2 12/09/16 14:18 Nasal Cannula 2.0 12/09/16 14:00 97.8 74 20 110/62 96 Intake and Output 12/08/16 12/08/16 12/09/16 15:00 23:00 07:00 Intake Total 750 ml 400 ml Balance 750 ml 400 ml Results Result Diagram: 12/06/1618 12/06/16 0518 Results 24 hrs Laboratory Tests Test 12/08/16 17:29 12/08/16 20:17 12/09/16 08:06 12/09/16 12:29 Bedside Glucose 102 121 128 153 Medications Medications Current Medications Amlodipine Besylate (Norvasc) 5 mg DAILY PO Last administered on 12/08/16 09: 12; Admin Dose 5 MG; Start 11/11/16 at 09:30 Apixaban (Eliquis) 5 mg BID PO Last administered on 12/01/16 20:36; Admin Dose 5 MG; Start 11/11/16 at 09:30; Status Future Hold Aspirin (Aspirin) 81 mg DAILY PO Last administered on 12/08/16 09:11; Admin Dose 81 MG; Start 11/11/16 at 09:30 Atorvastatin Calcium (Lipitor) 40 mg QHS PO Last administered on 12/08/16 20: 19; Admin Dose 40 MG; Start 11/11/16 at 21:00 Benzonatate (Tessalon) 100 mg Q6 PO Last administered on 12/09/16 12:26; Admin Dose 100 MG; Start 11/11/16 at 12:00 Carisoprodol (Soma) 350 mg Q8 PRN PO MUSCLE SPASMS Last administered on 09:36; Admin Dose 350 MG; Start 11/11/16 at 12:00 Cinacalcet (Sensipar) 30 mg DAILY PO Last administered on 12/09/16 08:59; Admin Dose 30 MG; Start 11/11/16 at 11:00 Furosemide (Lasix) 80 mg DAILY PO Last administered on 12/08/16 09:11; Admin Dose 80 MG; Start 11/11/16 at 09:30 Losartan Potassium (Cozaar) 50 mg BID PO Last administered on 12/08/16 20:19; Admin Dose 50 MG; Start 11/11/16 at 09:30 Metoprolol Succinate (Toprol Xl) 50 mg BID PO Last administered on 12/08/16 20 :19; Admin Dose 50 MG; Start 11/11/16 at 09:30 Montelukast Sodium (Singulair) 10 mg QAM PO Last administered on 12/09/16 08: 59; Admin Dose 10 MG; Start 11/11/16 at 11:00 Oxycodone/ Acetaminophen (Endocet (10/ 325)) 1 tab Q6 PRN PO PRN Last administered on 12/07/16 21:51; Admin Dose 1 TAB; Start 11/11/16 at 12:00 Pyridoxine HCl (Vitamin B6) 50 mg DAILY PO Last administered on 12/09/16 09:14 ; Admin Dose 50 MG; Start 11/11/16 at 09:30 Tiotropium [place] (Spiriva) 1 inh DAILY INH Last administered on 12/09/16 08: 59; Admin Dose 1 INH; Start 11/11/16 at 11:00 Ondansetron HCl (Zofran Tab) 4 mg Q6H PRN PO NAUSEA AND/OR VOMITING Last administered on 11/22/16 08:46; Admin Dose 4 MG; Start 11/11/16 at 10:00 Salmeterol Xinafoate/ Fluticasone (Advair 250/50 Diskus) 1 inh BID INH Last administered on 12/09/16 08:53; Admin Dose 1 INH; Start 11/11/16 at 11:00 Vancomycin HCl (Vanco Iv Per Pharmacy) PER PHARMACY DOSING NOTE XX ; Start 11/11 at 10:30; Stop 12/11/16 at 18:29 Albuterol (Ventolin Hfa) 2 puff Q4H PRN INH AOB Last administered on 11/25/16 12:06; Admin Dose 2 PUFF; Start 11/11/16 at 10:30 Epoetin Hang (Epogen (Esrd)) 10,000 units TuThSa@17 SC Last administered on 17:56; Admin Dose 10,000 UNITS; Start 11/11/16 at 17:00 Collagenase (Santyl) 1 applic DAILY TOP Last administered on 12/08/16 09:14; Admin Dose 1 APPLIC; Start 11/13/16 at 09:00 Diagnostic Test (Pha) (Accu-Chek) 1 ea 02 XX Last administered on 12/03/16 02: 14; Admin Dose 1 EA; Start 11/14/16 at 02:00 Insulin Detemir (Levemir) 35 unit QHS@20 SC Last administered on 12/08/16 20: 20; Admin Dose 35 UNIT; Start 11/14/16 at 20:00 Nicotine (Nicoderm 21 Mg/ 24hr) 1 patch DAILY TRANSDERM Last administered on 08:53; Admin Dose 1 PATCH; Start 11/14/16 at 20:00 Docusate Sodium (Colace) 100 mg Q12H PO Last administered on 12/08/16 12:49; Admin Dose 100 MG; Start 11/16/16 at 22:00 Miscellaneous Information 1 ea NOTE XX ; Start 11/17/16 at 11:30 Glucose (Glutose) 15 gm Q15M PRN PO DECREASED GLUCOSE; Start 11/17/16 at 11:30 Glucose (Glutose) 22.5 gm Q15M PRN PO DECREASED GLUCOSE; Start 11/17/16 at 11:30 Dextrose (D50w Syringe) 25 ml Q15M PRN IV DECREASED GLUCOSE; Start 11/17/16 at 11:30 Dextrose (D50w Syringe) 50 ml Q15M PRN IV DECREASED GLUCOSE; Start 11/17/16 at 11:30 Glucagon (Glucagen) 1 mg Q15M PRN IM DECREASED GLUCOSE; Start 11/17/16 at 11:30 Glucose (Glutose) 15 gm Q15M PRN BUCCAL DECREASED GLUCOSE; Start 11/17/16 at 11: 30 Polyethylene Glycol (Miralax) 17 gm BID PO Last administered on 12/06/16 10:04 ; Admin Dose 17 GM; Start 11/17/16 at 12:00 Bisacodyl (Dulcolax) 10 mg DAILY PRN PO CONSTIPATION; Start 11/17/16 at 11:30 Diltiazem HCl (Cardizem Cd) 120 mg BID PO Last administered on 12/08/16 23:01 ; Admin Dose 120 MG; Start 11/19/16 at 21:00 Zolpidem Tartrate (Ambien) 5 mg HS PRN PO INSOMNIA Last administered on 02:17; Admin Dose 5 MG; Start 11/19/16 at 21:30 Lorazepam (Ativan) 1 mg Q6H PRN IV AGITATION/ANXIETY Last administered on 23:38; Admin Dose 1 MG; Start 11/21/16 at 21:15 Guaifenesin/ Codeine Phosphate (Robitussin Ac Liquid Cup) 5 ml Q4H PRN PO COUGH Last administered on 12/06/16 16:06; Admin Dose 5 ML; Start 11/21/16 at 21 :30 Morphine Sulfate 2 mg 2 mg Q3H PRN IV for pain Last administered on 12/09/16 03:28; Admin Dose 2 MG; Start 11/24/16 at 18:30 Meropenem/Sodium Chloride (Merrem 500mg/50 ml(Pmx)) 50 ml @ 100 mls/hr Q24H IVPB Last administered on 12/09/16 16:07; Admin Dose 100 MLS/HR; Start at 16:00; Stop 12/11/16 at 15:59 Pantoprazole (Protonix Iv) 40 mg BID@06,18 IV Last administered on 12/09/16 05 :27; Admin Dose 40 MG; Start 12/02/16 at 18:00 Sucralfate 1 gm 1 gm QID PO Last administered on 12/09/16 12:27; Admin Dose 1 GM; Start 12/03/16 at 17:00 Vancomycin HCl (Vancocin) 250 ml @ 125 mls/hr Q96H IVPB Last administered on 19:58; Admin Dose 125 MLS/HR; Start 12/07/16 at 18:30; Stop 12/11/16 at 18:29 AMERICO HOWARD MD 27, 2017 17:18
[2016-12-09] MEDS: EPOETIN 10000 UNITS/1 ML INJ (ESRD) SC SCH (17:25)
[2016-12-09] MEDS: INSULIN DETEMIR [LEVEMIR] 3ML CART SC SCH (20:50)
[2016-12-09] MEDS: ATORVASTATIN 40 MG TAB PO SCH (20:52)
[2016-12-09] MEDS: ALBUTEROL 18 GM INHALER INH PRN (21:14)
[2016-12-09] MEDS: LORAZEPAM 2 MG INJ IV PRN (21:47)
[2016-12-10] MEDS: ACCU-CHEK XX SCH (01:41)
[2016-12-10 02:07] VITALS: BP 122/58; RESP 18
[2016-12-10] MEDS: BENZONATATE 100 MG CAP PO SCH ×4 (05:08→23:32)
[2016-12-10] MEDS: PANTOPRAZOLE 40 MG INJ IV SCH ×2 (05:08→17:53)
[2016-12-10] MEDS: morphine 2 MG INJ IV PRN ×3 (05:08→15:37)
[2016-12-10] MEDS: ALBUTEROL 18 GM INHALER INH PRN ×2 (05:26→23:20)
[2016-12-10 08:00] VITALS: BP 131/69; RESP 18
[2016-12-10] MEDS: INSULIN ASPART [NOVOLOG] 3 ML PEN SC SCH ×4 (08:12→22:00)
[2016-12-10] MEDS: METOCLOPRAMIDE 5 MG TAB PO SCH ×3 (08:13→17:53)
[2016-12-10] MEDS: CALCIUM ACETATE 667 MG CAP PO SCH ×3 (08:13→17:53)
[2016-12-10] MEDS: LORAZEPAM 2 MG INJ IV PRN ×2 (08:19→23:32)
[2016-12-10] MEDS: PYRIDOXINE 50 MG TAB PO SCH (08:23)
[2016-12-10] MEDS: TIOTROPIUM 18 MCG CAPSULE INHA DEV INH SCH (08:23)
[2016-12-10] MEDS: SUCRALFATE 1 GM TAB PO SCH ×4 (08:24→22:40)
[2016-12-10] MEDS: NICOTINE (21 MG/24 HR) PATCH TRANSDERM SCH (08:24)
[2016-12-10] MEDS: MONTELUKAST 10 MG TAB PO SCH (08:24)
[2016-12-10] MEDS: ASPIRIN 81 MG TAB PO SCH (08:24)
[2016-12-10] MEDS: SALMETEROL/FLUTICASONE 250/50 INHA INH SCH ×2 (08:24→22:39)
[2016-12-10] MEDS: FUROSEMIDE 40 MG TAB PO SCH (08:27)
[2016-12-10] MEDS: POLYETHYLENE GLYCOL 17 GM PACKET PO SCH ×2 (08:27→22:00)
[2016-12-10] MEDS: AMLODIPINE 5 MG TAB PO SCH (08:29)
[2016-12-10] MEDS: CINACALCET 30 MG TAB PO SCH ×2 (09:00→12:35)
[2016-12-10] MEDS: DILTIAZEM (CD) 120 MG CAP PO SCH ×3 (09:00→22:41)
[2016-12-10] MEDS: LOSARTAN 50 MG TAB PO SCH ×2 (09:19→22:41)
[2016-12-10] MEDS: METOPROLOL (XL) 50 MG TAB PO SCH ×2 (09:19→22:40)
[2016-12-10 09:24] VITALS: BP 127/59; PULSE 88
[2016-12-10] MEDS: COLLAGENASE 30 GM TUBE TOP SCH (10:17)
[2016-12-10] MEDS: DOCUSATE SODIUM 100 MG CAP PO SCH ×2 (12:40→22:00)
[2016-12-10 14:00] VITALS: BP 130/72; RESP 18
[2016-12-10] MEDS: MEROPENEM 500MG/50 ML (PMX) 50 ML IVPB SCH (15:37)
--- NOTE | 2016-12-10 15:59 | CONS ---
Date/Time of Note Date/Time of Note DATE: 12/10/16 TIME: 15:59 Assessment/Plan Assessment/Plan Chief Complaint/Hosp Course - ESRD on Hemodialysis TTS @ [facility] - POST FALL - ACUTE ANEMIA - Hx of Cellulitis - CAD/CHF - Hx of Hypertension - Pneumonia PLAN: Bedside dialysis TTS Aim for UF ~ 2 Kg Monitor H/H Continue with Abx Started EPOGEN Problems: Consultation Date/Type/Reason Admit Date/Time Nov 11, 2016 at 06:40 Initial Consult Date 11/12/16 Type of Consultation: NEPHROLOGY Reason for Consultation ESRD Referring Provider: ERICK MATOS 24 HR Interval Summary Constitutional: improved, no complaints Exam/Review of Systems Vital Signs Vitals Vital Signs Date Time Temp Pulse Resp B/P Pulse Ox O2 Delivery O2 Flow Rate FiO2 12/10/16 14:00 98.6 84 18 130/72 96 12/10/16 08:30 Nasal Cannula 2.0 Intake and Output 12/09/16 12/09/16 12/10/16 15:00 23:00 07:00 Intake Total 500 ml 410 ml 450 ml Output Total 2500 ml 2000 ml Balance -2000 ml -1590 ml 450 ml Exam Constitutional: alert, oriented Psych: no complaints Respiratory: crackles/rales Cardiovascular: edema, regular rate and rhythm, systolic murmur Gastrointestinal: soft Results Result Diagram: 12/06/16 0518 12/06/16 0518 Results 24 hrs Laboratory Tests Test 12/09/16 17:27 12/09/16 20:48 12/10/16 08:09 12/10/16 12:30 Bedside Glucose 157 172 142 220 Medications Medications Current Medications Amlodipine Besylate (Norvasc) 5 mg DAILY PO Last administered on 12/10/16 08: 29; Admin Dose 5 MG; Start 11/11/16 at 09:30 Apixaban (Eliquis) 5 mg BID PO Last administered on 12/01/16 20:36; Admin Dose 5 MG; Start 11/11/16 at 09:30; Status Future Hold Aspirin (Aspirin) 81 mg DAILY PO Last administered on 12/10/16 08:24; Admin Dose 81 MG; Start 11/11/16 at 09:30 Atorvastatin Calcium (Lipitor) 40 mg QHS PO Last administered on 12/09/16 20: 52; Admin Dose 40 MG; Start 11/11/16 at 21:00 Benzonatate (Tessalon) 100 mg Q6 PO Last administered on 12/10/16 12:35; Admin Dose 100 MG; Start 11/11/16 at 12:00 Carisoprodol (Soma) 350 mg Q8 PRN PO MUSCLE SPASMS Last administered on 09:36; Admin Dose 350 MG; Start 11/11/16 at 12:00 Cinacalcet (Sensipar) 30 mg DAILY PO Last administered on 12/10/16 12:35; Admin Dose 30 MG; Start 11/11/16 at 11:00 Furosemide (Lasix) 80 mg DAILY PO Last administered on 12/10/16 08:27; Admin Dose 80 MG; Start 11/11/16 at 09:30 Losartan Potassium (Cozaar) 50 mg BID PO Last administered on 12/10/16 09:19; Admin Dose 50 MG; Start 11/11/16 at 09:30 Metoprolol Succinate (Toprol Xl) 50 mg BID PO Last administered on 12/10/16 09 :19; Admin Dose 50 MG; Start 11/11/16 at 09:30 Montelukast Sodium (Singulair) 10 mg QAM PO Last administered on 12/10/16 08: 24; Admin Dose 10 MG; Start 11/11/16 at 11:00 Oxycodone/ Acetaminophen (Endocet (10/ 325)) 1 tab Q6 PRN PO PRN Last administered on 12/07/16 21:51; Admin Dose 1 TAB; Start 11/11/16 at 12:00 Pyridoxine HCl (Vitamin B6) 50 mg DAILY PO Last administered on 12/10/16 08:23 ; Admin Dose 50 MG; Start 11/11/16 at 09:30 Tiotropium [place] (Spiriva) 1 inh DAILY INH Last administered on 12/10/16 08: 23; Admin Dose 1 INH; Start 11/11/16 at 11:00 Ondansetron HCl (Zofran Tab) 4 mg Q6H PRN PO NAUSEA AND/OR VOMITING Last administered on 11/22/16 08:46; Admin Dose 4 MG; Start 11/11/16 at 10:00 Salmeterol Xinafoate/ Fluticasone (Advair 250/50 Diskus) 1 inh BID INH Last administered on 12/10/16 08:24; Admin Dose 1 INH; Start 11/11/16 at 11:00 Vancomycin HCl (Vanco Iv Per Pharmacy) PER PHARMACY DOSING NOTE XX ; Start 11/11 at 10:30; Stop 12/11/16 at 18:29 Albuterol (Ventolin Hfa) 2 puff Q4H PRN INH AOB Last administered on 12/10/16 05:26; Admin Dose 2 PUFF; Start 11/11/16 at 10:30 Epoetin Hang (Epogen (Esrd)) 10,000 units TuThSa@17 SC Last administered on 17:25; Admin Dose 10,000 UNITS; Start 11/11/16 at 17:00 Collagenase (Santyl) 1 applic DAILY TOP Last administered on 12/10/16 10:17; Admin Dose 1 APPLIC; Start 11/13/16 at 09:00 Diagnostic Test (Pha) (Accu-Chek) 1 ea 02 XX Last administered on 12/03/16 02: 14; Admin Dose 1 EA; Start 11/14/16 at 02:00 Insulin Detemir (Levemir) 35 unit QHS@20 SC Last administered on 12/09/16 20: 50; Admin Dose 35 UNIT; Start 11/14/16 at 20:00 Nicotine (Nicoderm 21 Mg/ 24hr) 1 patch DAILY TRANSDERM Last administered on 08:24; Admin Dose 1 PATCH; Start 11/14/16 at 20:00 Docusate Sodium (Colace) 100 mg Q12H PO Last administered on 12/10/16 12:40; Admin Dose 100 MG; Start 11/16/16 at 22:00 Miscellaneous Information 1 ea NOTE XX ; Start 11/17/16 at 11:30 Glucose (Glutose) 15 gm Q15M PRN PO DECREASED GLUCOSE; Start 11/17/16 at 11:30 Glucose (Glutose) 22.5 gm Q15M PRN PO DECREASED GLUCOSE; Start 11/17/16 at 11:30 Dextrose (D50w Syringe) 25 ml Q15M PRN IV DECREASED GLUCOSE; Start 11/17/16 at 11:30 Dextrose (D50w Syringe) 50 ml Q15M PRN IV DECREASED GLUCOSE; Start 11/17/16 at 11:30 Glucagon (Glucagen) 1 mg Q15M PRN IM DECREASED GLUCOSE; Start 11/17/16 at 11:30 Glucose (Glutose) 15 gm Q15M PRN BUCCAL DECREASED GLUCOSE; Start 11/17/16 at 11: 30 Polyethylene Glycol (Miralax) 17 gm BID PO Last administered on 12/10/16 08:27 ; Admin Dose 17 GM; Start 11/17/16 at 12:00 Bisacodyl (Dulcolax) 10 mg DAILY PRN PO CONSTIPATION; Start 11/17/16 at 11:30 Diltiazem HCl (Cardizem Cd) 120 mg BID PO Last administered on 12/10/16 12:40 ; Admin Dose 120 MG; Start 11/19/16 at 21:00 Zolpidem Tartrate (Ambien) 5 mg HS PRN PO INSOMNIA Last administered on 02:17; Admin Dose 5 MG; Start 11/19/16 at 21:30 Lorazepam (Ativan) 1 mg Q6H PRN IV AGITATION/ANXIETY Last administered on 08:19; Admin Dose 1 MG; Start 11/21/16 at 21:15 Guaifenesin/ Codeine Phosphate (Robitussin Ac Liquid Cup) 5 ml Q4H PRN PO COUGH Last administered on 12/06/16 16:06; Admin Dose 5 ML; Start 11/21/16 at 21 :30 Morphine Sulfate 2 mg 2 mg Q3H PRN IV for pain Last administered on 12/10/16 15:37; Admin Dose 2 MG; Start 11/24/16 at 18:30 Meropenem/Sodium Chloride (Merrem 500mg/50 ml(Pmx)) 50 ml @ 100 mls/hr Q24H IVPB Last administered on 12/10/16 15:37; Admin Dose 100 MLS/HR; Start at 16:00; Stop 12/11/16 at 15:59 Pantoprazole (Protonix Iv) 40 mg BID@06,18 IV Last administered on 12/10/16 05 :08; Admin Dose 40 MG; Start 12/02/16 at 18:00 Sucralfate 1 gm 1 gm QID PO Last administered on 12/10/16 12:34; Admin Dose 1 GM; Start 12/03/16 at 17:00 Vancomycin HCl (Vancocin) 250 ml @ 125 mls/hr Q96H IVPB Last administered on 19:58; Admin Dose 125 MLS/HR; Start 12/07/16 at 18:30; Stop 12/11/16 at 18:29 BECKY GAMBLE MD Dec 10, 2016 15:59
--- NOTE | 2016-12-10 19:43 | CONS ---
Date/Time of Note Date/Time of Note DATE: 12/10/16 TIME: 19:42 Assessment/Plan Assessment/Plan Chief Complaint/Hosp Course ID PROGRESS NOTE ABX DAY # Vancomycin IV , Meropenem. 24H INTERVAL SUMMARY * Pt is resting comfortably, NAD, VSS no fevers, NAD PHYSICAL EXAMINATION: GENERAL: VSS, NAD, no fever, obese F HEENT: Unremarkable NECK: Trach midline CHEST: Equal chest rise bilaterally, without dyspnea on observation HEART: Pulse RRR ABDOMEN: Soft, left flank pain EXTREMITIES: Warm SKIN: Warm, dry, edema BLEXT w/wound vac ID ASSESSMENT: 61 yo super morbid obese F admitted with: 1. Acute encephalopathy, likely toxic metabolic 2. Bilateral lower extremities chronic venous stasis with chronic cellulitis and left hip wound, s/p debridement and wound vac application 10/19/16. 3. End-stage renal disease, on hemodialysis. * Left upper extremity AV fistula 4. Healthcare associated pneumonia, possibly aspiration = CLINICALLY IMPROVED * CXR 11/26/16: There is air space disease at the right lung base consistent with pneumonia, unchanged. There is a small right pleural effusion, unchanged. 5. Atrial fibrillation. 6. COPD - stable 7. Diabetes 8. Hx of falls -> limited mobility due to super morbid obesity ABX ALLERGIES: PCN, CIPRO CURRENT ABX: ABX DAY # => Vancomycin IV , Meropenem. ID RECOMMENDATIONS: 1. Continue current ABX until last day per notes 12/11/16 2. DC Planning to SNF w/wound VAC Tx, may TNS on current ABX until last day . Problems: Consultation Date/Type/Reason Admit Date/Time Nov 11, 2016 at 06:40 Initial Consult Date 11/12/16 Type of Consultation: ID Referring Provider: ERICK MATOS Exam/Review of Systems Vital Signs Vitals Vital Signs Date Time Temp Pulse Resp B/P Pulse Ox O2 Delivery O2 Flow Rate FiO2 12/10/16 14:00 98.6 84 18 130/72 96 12/10/16 08:30 Nasal Cannula 2.0 Intake and Output 12/09/16 12/09/16 12/10/16 15:00 23:00 07:00 Intake Total 500 ml 410 ml 450 ml Output Total 2500 ml 2000 ml Balance -2000 ml -1590 ml 450 ml Results Result Diagram: 12/06/1618 12/06/1618 Results 24 hrs Laboratory Tests Test 12/09/16 20:48 12/10/16 08:09 12/10/16 12:30 12/10/16 17:50 Bedside Glucose 172 142 220 163 Medications Medications Current Medications Amlodipine Besylate (Norvasc) 5 mg DAILY PO Last administered on 12/10/16 08: 29; Admin Dose 5 MG; Start 11/11/16 at 09:30 Apixaban (Eliquis) 5 mg BID PO Last administered on 12/01/16 20:36; Admin Dose 5 MG; Start 11/11/16 at 09:30; Status Future Hold Aspirin (Aspirin) 81 mg DAILY PO Last administered on 12/10/16 08:24; Admin Dose 81 MG; Start 11/11/16 at 09:30 Atorvastatin Calcium (Lipitor) 40 mg QHS PO Last administered on 12/09/16 20: 52; Admin Dose 40 MG; Start 11/11/16 at 21:00 Benzonatate (Tessalon) 100 mg Q6 PO Last administered on 12/10/16 17:53; Admin Dose 100 MG; Start 11/11/16 at 12:00 Carisoprodol (Soma) 350 mg Q8 PRN PO MUSCLE SPASMS Last administered on 09:36; Admin Dose 350 MG; Start 11/11/16 at 12:00 Cinacalcet (Sensipar) 30 mg DAILY PO Last administered on 12/10/16 12:35; Admin Dose 30 MG; Start 11/11/16 at 11:00 Furosemide (Lasix) 80 mg DAILY PO Last administered on 12/10/16 08:27; Admin Dose 80 MG; Start 11/11/16 at 09:30 Losartan Potassium (Cozaar) 50 mg BID PO Last administered on 12/10/16 09:19; Admin Dose 50 MG; Start 11/11/16 at 09:30 Metoprolol Succinate (Toprol Xl) 50 mg BID PO Last administered on 12/10/16 09 :19; Admin Dose 50 MG; Start 11/11/16 at 09:30 Montelukast Sodium (Singulair) 10 mg QAM PO Last administered on 12/10/16 08: 24; Admin Dose 10 MG; Start 11/11/16 at 11:00 Oxycodone/ Acetaminophen (Endocet (10 325)) 1 tab Q6 PRN PO PRN Last administered on 12/07/16 21:51; Admin Dose 1 TAB; Start 11/11/16 at 12:00 Pyridoxine HCl (Vitamin B6) 50 mg DAILY PO Last administered on 12/10/16 08:23 ; Admin Dose 50 MG; Start 11/11/16 at 09:30 Tiotropium [place] (Spiriva) 1 inh DAILY INH Last administered on 12/10/16 08: 23; Admin Dose 1 INH; Start 11/11/16 at 11:00 Ondansetron HCl (Zofran Tab) 4 mg Q6H PRN PO NAUSEA AND/OR VOMITING Last administered on 11/22/16 08:46; Admin Dose 4 MG; Start 11/11/16 at 10:00 Salmeterol Xinafoate/ Fluticasone (Advair 250/50 Diskus) 1 inh BID INH Last administered on 12/10/16 08:24; Admin Dose 1 INH; Start 11/11/16 at 11:00 Vancomycin HCl (Vanco Iv Per Pharmacy) PER PHARMACY DOSING NOTE XX ; Start 11/11 at 10:30; Stop 12/11/16 at 18:29 Albuterol (Ventolin Hfa) 2 puff Q4H PRN INH AOB Last administered on 12/10/16 05:26; Admin Dose 2 PUFF; Start 11/11/16 at 10:30 Epoetin Hang (Epogen (Esrd)) 10,000 units TuThSa@17 SC Last administered on 17:25; Admin Dose 10,000 UNITS; Start 11/11/16 at 17:00 Collagenase (Santyl) 1 applic DAILY TOP Last administered on 12/10/16 10:17; Admin Dose 1 APPLIC; Start 11/13/16 at 09:00 Diagnostic Test (Pha) (Accu-Chek) 1 ea 02 XX Last administered on 12/03/16 02: 14; Admin Dose 1 EA; Start 11/14/16 at 02:00 Insulin Detemir (Levemir) 35 unit QHS@20 SC Last administered on 12/09/16 20: 50; Admin Dose 35 UNIT; Start 11/14/16 at 20:00 Nicotine (Nicoderm 21 Mg/ 24hr) 1 patch DAILY TRANSDERM Last administered on 08:24; Admin Dose 1 PATCH; Start 11/14/16 at 20:00 Docusate Sodium (Colace) 100 mg Q12H PO Last administered on 12/10/16 12:40; Admin Dose 100 MG; Start 11/16/16 at 22:00 Miscellaneous Information 1 ea NOTE XX ; Start 11/17/16 at 11:30 Glucose (Glutose) 15 gm Q15M PRN PO DECREASED GLUCOSE; Start 11/17/16 at 11:30 Glucose (Glutose) 22.5 gm Q15M PRN PO DECREASED GLUCOSE; Start 11/17/16 at 11:30 Dextrose (D50w Syringe) 25 ml Q15M PRN IV DECREASED GLUCOSE; Start 11/17/16 at 11:30 Dextrose (D50w Syringe) 50 ml Q15M PRN IV DECREASED GLUCOSE; Start 11/17/16 at 11:30 Glucagon (Glucagen) 1 mg Q15M PRN IM DECREASED GLUCOSE; Start 11/17/16 at 11:30 Glucose (Glutose) 15 gm Q15M PRN BUCCAL DECREASED GLUCOSE; Start 11/17/16 at 11: 30 Polyethylene Glycol (Miralax) 17 gm BID PO Last administered on 12/10/16 08:27 ; Admin Dose 17 GM; Start 11/17/16 at 12:00 Bisacodyl (Dulcolax) 10 mg DAILY PRN PO CONSTIPATION; Start 11/17/16 at 11:30 Diltiazem HCl (Cardizem Cd) 120 mg BID PO Last administered on 12/10/16 12:40 ; Admin Dose 120 MG; Start 11/19/16 at 21:00 Zolpidem Tartrate (Ambien) 5 mg HS PRN PO INSOMNIA Last administered on 02:17; Admin Dose 5 MG; Start 11/19/16 at 21:30 Lorazepam (Ativan) 1 mg Q6H PRN IV AGITATION/ANXIETY Last administered on 08:19; Admin Dose 1 MG; Start 11/21/16 at 21:15 Guaifenesin/ Codeine Phosphate (Robitussin Ac Liquid Cup) 5 ml Q4H PRN PO COUGH Last administered on 12/06/16 16:06; Admin Dose 5 ML; Start 11/21/16 at 21 :30 Morphine Sulfate 2 mg 2 mg Q3H PRN IV for pain Last administered on 12/10/16 15:37; Admin Dose 2 MG; Start 11/24/16 at 18:30 Meropenem/Sodium Chloride (Merrem 500mg/50 ml(Pmx)) 50 ml @ 100 mls/hr Q24H IVPB Last administered on 12/10/16 15:37; Admin Dose 100 MLS/HR; Start at 16:00; Stop 12/11/16 at 15:59 Pantoprazole (Protonix Iv) 40 mg BID@06,18 IV Last administered on 12/10/16 17 :53; Admin Dose 40 MG; Start 12/02/16 at 18:00 Sucralfate 1 gm 1 gm QID PO Last administered on 12/10/16 17:53; Admin Dose 1 GM; Start 12/03/16 at 17:00 Vancomycin HCl (Vancocin) 250 ml @ 125 mls/hr Q96H IVPB Last administered on 19:58; Admin Dose 125 MLS/HR; Start 12/07/16 at 18:30; Stop 12/11/16 at 18:29 STEFAN COMBS NP Dec 10, 2016 19:43
[2016-12-10 20:49] VITALS: BP 141/65; RESP 18
[2016-12-10] MEDS: ATORVASTATIN 40 MG TAB PO SCH (22:40)
[2016-12-10] MEDS: INSULIN DETEMIR [LEVEMIR] 3ML CART SC SCH (22:44)
[2016-12-11] VITALS (11 sets, daily range): BP systolic 105–139; BP diastolic 51–67; PULSE 85–89; RESP 14–22
[2016-12-11] MEDS: ACCU-CHEK XX SCH (01:10)
[2016-12-11] MEDS: ALBUTEROL 18 GM INHALER INH PRN ×2 (03:27→16:14)
[2016-12-11] MEDS: morphine 2 MG INJ IV PRN ×3 (03:43→15:58)
[2016-12-11] MEDS: PANTOPRAZOLE 40 MG INJ IV SCH ×2 (05:35→17:25)
[2016-12-11] MEDS: INSULIN ASPART [NOVOLOG] 3 ML PEN SC SCH ×4 (08:00→20:56)
[2016-12-11] MEDS: CINACALCET 30 MG TAB PO SCH (08:30)
[2016-12-11] MEDS: NICOTINE (21 MG/24 HR) PATCH TRANSDERM SCH (08:30)
[2016-12-11] MEDS: POLYETHYLENE GLYCOL 17 GM PACKET PO SCH ×2 (08:30→21:00)
[2016-12-11] MEDS: SUCRALFATE 1 GM TAB PO SCH ×4 (08:31→20:52)
[2016-12-11] MEDS: MONTELUKAST 10 MG TAB PO SCH (08:31)
[2016-12-11] MEDS: SALMETEROL/FLUTICASONE 250/50 INHA INH SCH ×2 (08:31→20:52)
[2016-12-11] MEDS: PYRIDOXINE 50 MG TAB PO SCH (08:31)
[2016-12-11] MEDS: CALCIUM ACETATE 667 MG CAP PO SCH ×3 (08:31→15:57)
[2016-12-11] MEDS: BENZONATATE 100 MG CAP PO SCH ×3 (08:32→15:57)
[2016-12-11] MEDS: ASPIRIN 81 MG TAB PO SCH (08:32)
[2016-12-11] MEDS: METOCLOPRAMIDE 5 MG TAB PO SCH ×3 (08:32→15:57)
[2016-12-11] MEDS: METOPROLOL (XL) 50 MG TAB PO SCH ×2 (09:00→20:55)
[2016-12-11] MEDS: DILTIAZEM (CD) 120 MG CAP PO SCH ×2 (09:00→20:54)
[2016-12-11] MEDS: FUROSEMIDE 40 MG TAB PO SCH (09:00)
[2016-12-11] MEDS: LOSARTAN 50 MG TAB PO SCH ×2 (09:00→20:54)
[2016-12-11] MEDS: AMLODIPINE 5 MG TAB PO SCH (09:00)
[2016-12-11] MEDS: DOCUSATE SODIUM 100 MG CAP PO SCH ×2 (10:00→22:00)
[2016-12-11] MEDS: TIOTROPIUM 18 MCG CAPSULE INHA DEV INH SCH (15:58)
[2016-12-11] MEDS: COLLAGENASE 30 GM TUBE TOP SCH (16:14)
--- NOTE | 2016-12-11 17:21 | CONS ---
Date/Time of Note Date/Time of Note DATE: 12/11/16 TIME: :17 Assessment/Plan Assessment/Plan Chief Complaint/Hosp Course ID PROGRESS NOTE ABX DAY # Vancomycin IV , Meropenem. 24H INTERVAL SUMMARY * Patient is sleeping with instructions not to be disturbed when asleep unless urgent. She had episode of anxiety/relentlessness during the day, now s/p Morphine + Ativan IV and prefers to sleep undisturbed. She remains on [place] pressure reducing mattress, refused her recent meds and refuses to allow Q2H turning by nursing staff. * No fevers, VSS, WBC normal PHYSICAL EXAMINATION: GENERAL: VSS, NAD, no fever, obese F HEENT: Unremarkable NECK: Trach midline CHEST: Equal chest rise bilaterally, without dyspnea on observation HEART: Pulse RRR ABDOMEN: Soft, left flank pain EXTREMITIES: Warm SKIN: Warm, dry, edema BLEXT w/wound vac ID ASSESSMENT: 61 yo super morbid obese F admitted with: 1. Acute encephalopathy, likely toxic metabolic => resolved. * Suspect underlying Psych DX NOS 2. Bilateral lower extremities chronic venous stasis with chronic cellulitis and left hip wound, s/p debridement and wound vac application 10/19/16. 3. End-stage renal disease, on hemodialysis. * Left upper extremity AV fistula 4. Healthcare associated pneumonia, possibly aspiration = CLINICALLY IMPROVED * CXR 11/26/16: There is air space disease at the right lung base consistent with pneumonia, unchanged. There is a small right pleural effusion, unchanged. 5. Atrial fibrillation. 6. COPD - stable 7. Diabetes 8. Hx of falls -> limited mobility due to super morbid obesity ABX ALLERGIES: PCN, CIPRO CURRENT ABX: ABX DAY # => Vancomycin IV , Meropenem. ID RECOMMENDATIONS: 1. Continue current ABX until last day per notes 12/11/16 2. DC Planning to SNF w/wound VAC Tx, may TNS on current ABX until last day 3. DC ABX after tonight's dose . Problems: Consultation Date/Type/Reason Admit Date/Time Nov 11, 2016 at 06:40 Initial Consult Date 11/12/16 Type of Consultation: ID Referring Provider: ERICK MATOS Exam/Review of Systems Vital Signs Vitals Vital Signs Date Time Temp Pulse Resp B/P Pulse Ox O2 Delivery O2 Flow Rate FiO2 7/29/17 16:54 98.1 92 14 131/67 95 12/11/16 16:34 2.0 12/11/16 11:07 Nasal Cannula Intake and Output 12/10/16 12/10/16 12/11/16 15:00 23:00 07:00 Intake Total 690 ml 500 ml Balance 690 ml 500 ml Results Results 24 hrs Laboratory Tests Test 12/10/16 17:50 12/10/16 20:48 12/11/16 08:29 12/11/16 11:33 Bedside Glucose 163 163 136 178 Medications Medications Current Medications Amlodipine Besylate (Norvasc) 5 mg DAILY PO Last administered on 12/10/16 08: 29; Admin Dose 5 MG; Start 11/11/16 at 09:30 Apixaban (Eliquis) 5 mg BID PO Last administered on 12/01/16 20:36; Admin Dose 5 MG; Start 11/11/16 at 09:30; Status Future Hold Aspirin (Aspirin) 81 mg DAILY PO Last administered on 12/11/16 08:32; Admin Dose 81 MG; Start 11/11/16 at 09:30 Atorvastatin Calcium (Lipitor) 40 mg QHS PO Last administered on 12/10/16 22: 40; Admin Dose 40 MG; Start 11/11/16 at 21:00 Benzonatate (Tessalon) 100 mg Q6 PO Last administered on 12/11/16 15:57; Admin Dose 100 MG; Start 11/11/16 at 12:00 Carisoprodol (Soma) 350 mg Q8 PRN PO MUSCLE SPASMS Last administered on 09:36; Admin Dose 350 MG; Start 11/11/16 at 12:00 Cinacalcet (Sensipar) 30 mg DAILY PO Last administered on 12/11/16 08:30; Admin Dose 30 MG; Start 11/11/16 at 11:00 Furosemide (Lasix) 80 mg DAILY PO Last administered on 12/10/16 08:27; Admin Dose 80 MG; Start 11/11/16 at 09:30 Losartan Potassium (Cozaar) 50 mg BID PO Last administered on 12/10/16 22:41; Admin Dose 50 MG; Start 11/11/16 at 09:30 Metoprolol Succinate (Toprol Xl) 50 mg BID PO Last administered on 12/10/16 22 :40; Admin Dose 50 MG; Start 11/11/16 at 09:30 Montelukast Sodium (Singulair) 10 mg QAM PO Last administered on 12/11/16 08: 31; Admin Dose 10 MG; Start 11/11/16 at 11:00 Oxycodone/ Acetaminophen (Endocet (10/ 325)) 1 tab Q6 PRN PO PRN Last administered on 12/07/16 21:51; Admin Dose 1 TAB; Start 11/11/16 at 12:00 Pyridoxine HCl (Vitamin B6) 50 mg DAILY PO Last administered on 12/11/16 08:31 ; Admin Dose 50 MG; Start 11/11/16 at 09:30 Tiotropium [place] (Spiriva) 1 inh DAILY INH Last administered on 12/11/16 15: 58; Admin Dose 1 INH; Start 11/11/16 at 11:00 Ondansetron HCl (Zofran Tab) 4 mg Q6H PRN PO NAUSEA AND/OR VOMITING Last administered on 11/22/16 08:46; Admin Dose 4 MG; Start 11/11/16 at 10:00 Salmeterol Xinafoate/ Fluticasone (Advair 250/50 Diskus) 1 inh BID INH Last administered on 12/11/16 08:31; Admin Dose 1 INH; Start 11/11/16 at 11:00 Vancomycin HCl (Vanco Iv Per Pharmacy) PER PHARMACY DOSING NOTE XX ; Start 11/11 at 10:30; Stop 12/11/16 at 18:29 Albuterol (Ventolin Hfa) 2 puff Q4H PRN INH AOB Last administered on 12/11/16 16:14; Admin Dose 2 PUFF; Start 11/11/16 at 10:30 Epoetin Hang (Epogen (Esrd)) 10,000 units TuThSa@17 SC Last administered on 17:25; Admin Dose 10,000 UNITS; Start 11/11/16 at 17:00 Collagenase (Santyl) 1 applic DAILY TOP Last administered on 12/11/16 16:14; Admin Dose 1 APPLIC; Start 11/13/16 at 09:00 Diagnostic Test (Pha) (Accu-Chek) 1 ea 02 XX Last administered on 12/03/16 02: 14; Admin Dose 1 EA; Start 11/14/16 at 02:00 Insulin Detemir (Levemir) 35 unit QHS@20 SC Last administered on 12/10/16 22: 44; Admin Dose 35 UNIT; Start 11/14/16 at 20:00 Nicotine (Nicoderm 21 Mg/ 24hr) 1 patch DAILY TRANSDERM Last administered on 08:30; Admin Dose 1 PATCH; Start 11/14/16 at 20:00 Docusate Sodium (Colace) 100 mg Q12H PO Last administered on 12/10/16 12:40; Admin Dose 100 MG; Start 11/16/16 at 22:00 Miscellaneous Information 1 ea NOTE XX ; Start 11/17/16 at 11:30 Glucose (Glutose) 15 gm Q15M PRN PO DECREASED GLUCOSE; Start 11/17/16 at 11:30 Glucose (Glutose) 22.5 gm Q15M PRN PO DECREASED GLUCOSE; Start 11/17/16 at 11:30 Dextrose (D50w Syringe) 25 ml Q15M PRN IV DECREASED GLUCOSE; Start 11/17/16 at 11:30 Dextrose (D50w Syringe) 50 ml Q15M PRN IV DECREASED GLUCOSE; Start 11/17/16 at 11:30 Glucagon (Glucagen) 1 mg Q15M PRN IM DECREASED GLUCOSE; Start 11/17/16 at 11:30 Glucose (Glutose) 15 gm Q15M PRN BUCCAL DECREASED GLUCOSE; Start 11/17/16 at 11: 30 Polyethylene Glycol (Miralax) 17 gm BID PO Last administered on 12/11/16 08:30 ; Admin Dose 17 GM; Start 11/17/16 at 12:00 Bisacodyl (Dulcolax) 10 mg DAILY PRN PO CONSTIPATION; Start 11/17/16 at 11:30 Diltiazem HCl (Cardizem Cd) 120 mg BID PO Last administered on 12/10/16 22:41 ; Admin Dose 120 MG; Start 11/19/16 at 21:00 Zolpidem Tartrate (Ambien) 5 mg HS PRN PO INSOMNIA Last administered on 02:17; Admin Dose 5 MG; Start 11/19/16 at 21:30 Lorazepam (Ativan) 1 mg Q6H PRN IV AGITATION/ANXIETY Last administered on 23:32; Admin Dose 1 MG; Start 11/21/16 at 21:15 Guaifenesin/ Codeine Phosphate (Robitussin Ac Liquid Cup) 5 ml Q4H PRN PO COUGH Last administered on 12/06/16 16:06; Admin Dose 5 ML; Start 11/21/16 at 21 :30 Morphine Sulfate (morphine) 2 mg Q3H PRN IV for pain Last administered on 15:58; Admin Dose 2 MG; Start 11/24/16 at 18:30 Pantoprazole (Protonix Iv) 40 mg BID@06,18 IV Last administered on 12/11/16 05 :35; Admin Dose 40 MG; Start 12/02/16 at 18:00 Sucralfate 1 gm 1 gm QID PO Last administered on 12/11/16 15:57; Admin Dose 1 GM; Start 12/03/16 at 17:00 Vancomycin HCl (Vancocin) 250 ml @ 125 mls/hr Q96H IVPB Last administered on 19:58; Admin Dose 125 MLS/HR; Start 12/07/16 at 18:30; Stop 12/11/16 at 18:29 STEFAN COMBS NP Dec 11, 2016 17:21
[2016-12-11] MEDS: EPOETIN 10000 UNITS/1 ML INJ (ESRD) SC SCH (17:29)
--- NOTE | 2016-12-11 19:37 | PN ---
Date/Time of Note Date/Time of Note DATE: 12/11/16 TIME: 19:32 Assessment/Plan VTE Prophylaxis VTE Prophylaxis Intervention: LMWH Lines/Catheters IV Catheter Type (from [facility]): [facility] Urinary Cath still in place: No Assessment/Plan Chief Complaint/Hosp Course ESRD: - Continue HD per renal Pneumonia: - Complete abx per ID on 12/11 Wound vac to leg wounds Planning on dispo to SNF Problems: Subjective 24 Hr Interval Summary Free Text/Dictation No change to clinical status. Stable symptoms Exam/Review of Systems Vital Signs Vitals Vital Signs Date Time Temp Pulse Resp B/P Pulse Ox O2 Delivery O2 Flow Rate FiO2 12/11/16 16:54 98.1 92 14 131/67 95 12/11/16 16:34 2.0 12/11/16 11:07 Nasal Cannula Intake and Output 12/10/16 12/10/16 12/11/16 15:00 23:00 07:00 Intake Total 690 ml 500 ml Balance 690 ml 500 ml Results Results 24 hrs Laboratory Tests Test 12/10/16 20:48 12/11/16 08:29 12/11/16 11:33 12/11/16 17:19 Bedside Glucose 163 136 178 172 Medications Medications Current Medications Amlodipine Besylate (Norvasc) 5 mg DAILY PO Last administered on 12/10/16 08: 29; Admin Dose 5 MG; Start 11/11/16 at 09:30 Apixaban (Eliquis) 5 mg BID PO Last administered on 12/01/16 20:36; Admin Dose 5 MG; Start 11/11/16 at 09:30; Status Future Hold Aspirin (Aspirin) 81 mg DAILY PO Last administered on 12/11/16 08:32; Admin Dose 81 MG; Start 11/11/16 at 09:30 Atorvastatin Calcium (Lipitor) 40 mg QHS PO Last administered on 12/10/16 22: 40; Admin Dose 40 MG; Start 11/11/16 at 21:00 Benzonatate (Tessalon) 100 mg Q6 PO Last administered on 12/11/16 15:57; Admin Dose 100 MG; Start 11/11/16 at 12:00 Carisoprodol (Soma) 350 mg Q8 PRN PO MUSCLE SPASMS Last administered on 09:36; Admin Dose 350 MG; Start 11/11/16 at 12:00 Cinacalcet (Sensipar) 30 mg DAILY PO Last administered on 12/11/16 08:30; Admin Dose 30 MG; Start 11/11/16 at 11:00 Furosemide (Lasix) 80 mg DAILY PO Last administered on 12/10/16 08:27; Admin Dose 80 MG; Start 11/11/16 at 09:30 Losartan Potassium (Cozaar) 50 mg BID PO Last administered on 12/10/16 22:41; Admin Dose 50 MG; Start 11/11/16 at 09:30 Metoprolol Succinate (Toprol Xl) 50 mg BID PO Last administered on 12/10/16 22 :40; Admin Dose 50 MG; Start 11/11/16 at 09:30 Montelukast Sodium (Singulair) 10 mg QAM PO Last administered on 12/11/16 08: 31; Admin Dose 10 MG; Start 11/11/16 at 11:00 Oxycodone/ Acetaminophen (Endocet (10/ 325)) 1 tab Q6 PRN PO PRN Last administered on 12/07/16 21:51; Admin Dose 1 TAB; Start 11/11/16 at 12:00 Pyridoxine HCl (Vitamin B6) 50 mg DAILY PO Last administered on 12/11/16 08:31 ; Admin Dose 50 MG; Start 11/11/16 at 09:30 Tiotropium [place] (Spiriva) 1 inh DAILY INH Last administered on 12/11/16 15: 58; Admin Dose 1 INH; Start 11/11/16 at 11:00 Ondansetron HCl (Zofran Tab) 4 mg Q6H PRN PO NAUSEA AND/OR VOMITING Last administered on 11/22/16 08:46; Admin Dose 4 MG; Start 11/11/16 at 10:00 Salmeterol Xinafoate/ Fluticasone (Advair 250/50 Diskus) 1 inh BID INH Last administered on 12/11/16 08:31; Admin Dose 1 INH; Start 11/11/16 at 11:00 Albuterol (Ventolin Hfa) 2 puff Q4H PRN INH AOB Last administered on 12/11/16 16:14; Admin Dose 2 PUFF; Start 11/11/16 at 10:30 Epoetin Hang (Epogen (Esrd)) 10,000 units TuThSa@17 SC Last administered on 17:29; Admin Dose 10,000 UNITS; Start 11/11/16 at 17:00 Collagenase (Santyl) 1 applic DAILY TOP Last administered on 12/11/16 16:14; Admin Dose 1 APPLIC; Start 11/13/16 at 09:00 Diagnostic Test (Pha) (Accu-Chek) 1 ea 02 XX Last administered on 12/03/16 02: 14; Admin Dose 1 EA; Start 11/14/16 at 02:00 Insulin Detemir (Levemir) 35 unit QHS@20 SC Last administered on 12/10/16 22: 44; Admin Dose 35 UNIT; Start 11/14/16 at 20:00 Nicotine (Nicoderm 21 Mg/ 24hr) 1 patch DAILY TRANSDERM Last administered on 08:30; Admin Dose 1 PATCH; Start 11/14/16 at 20:00 Docusate Sodium (Colace) 100 mg Q12H PO Last administered on 12/10/16 12:40; Admin Dose 100 MG; Start 11/16/16 at 22:00 Miscellaneous Information 1 ea NOTE XX ; Start 11/17/16 at 11:30 Glucose (Glutose) 15 gm Q15M PRN PO DECREASED GLUCOSE; Start 11/17/16 at 11:30 Glucose (Glutose) 22.5 gm Q15M PRN PO DECREASED GLUCOSE; Start 11/17/16 at 11:30 Dextrose (D50w Syringe) 25 ml Q15M PRN IV DECREASED GLUCOSE; Start 11/17/16 at 11:30 Dextrose (D50w Syringe) 50 ml Q15M PRN IV DECREASED GLUCOSE; Start 11/17/16 at 11:30 Glucagon (Glucagen) 1 mg Q15M PRN IM DECREASED GLUCOSE; Start 11/17/16 at 11:30 Glucose (Glutose) 15 gm Q15M PRN BUCCAL DECREASED GLUCOSE; Start 11/17/16 at 11: 30 Polyethylene Glycol (Miralax) 17 gm BID PO Last administered on 12/11/16 08:30 ; Admin Dose 17 GM; Start 11/17/16 at 12:00 Bisacodyl (Dulcolax) 10 mg DAILY PRN PO CONSTIPATION; Start 11/17/16 at 11:30 Diltiazem HCl (Cardizem Cd) 120 mg BID PO Last administered on 12/10/16 22:41 ; Admin Dose 120 MG; Start 11/19/16 at 21:00 Zolpidem Tartrate (Ambien) 5 mg HS PRN PO INSOMNIA Last administered on 02:17; Admin Dose 5 MG; Start 11/19/16 at 21:30 Lorazepam (Ativan) 1 mg Q6H PRN IV AGITATION/ANXIETY Last administered on 23:32; Admin Dose 1 MG; Start 11/21/16 at 21:15 Guaifenesin/ Codeine Phosphate (Robitussin Ac Liquid Cup) 5 ml Q4H PRN PO COUGH Last administered on 12/06/16 16:06; Admin Dose 5 ML; Start 11/21/16 at 21 :30 Morphine Sulfate (morphine) 2 mg Q3H PRN IV for pain Last administered on 15:58; Admin Dose 2 MG; Start 11/24/16 at 18:30 Pantoprazole (Protonix Iv) 40 mg BID@06,18 IV Last administered on 12/11/16 17 :25; Admin Dose 40 MG; Start 12/02/16 at 18:00 Sucralfate (Carafate) 1 gm QID PO Last administered on 12/11/16 15:57; Admin Dose 1 GM; Start 12/03/16 at 17:00 AMERICO HOWARD MD Dec 11, 2016 19:37
[2016-12-11] MEDS: INSULIN DETEMIR [LEVEMIR] 3ML CART SC SCH (20:51)
[2016-12-11] MEDS: ATORVASTATIN 40 MG TAB PO SCH (20:52)
[2016-12-11] MEDS: LORAZEPAM 2 MG INJ IV PRN (21:28)
[2016-12-11] MEDS: ZOLPIDEM 5 MG TAB PO PRN (23:20)
[2016-12-12] MEDS: BENZONATATE 100 MG CAP PO SCH ×4 (00:08→17:47)
[2016-12-12] MEDS: morphine 2 MG INJ IV PRN ×3 (00:53→14:32)
[2016-12-12 02:00] VITALS: BP 125/60; RESP 20
[2016-12-12] MEDS: ACCU-CHEK XX SCH (02:00)
[2016-12-12] MEDS: LORAZEPAM 2 MG INJ IV PRN ×2 (03:29→22:09)
[2016-12-12] MEDS: PANTOPRAZOLE 40 MG INJ IV SCH ×2 (05:58→17:47)
[2016-12-12] MEDS: METOCLOPRAMIDE 5 MG TAB PO SCH ×3 (06:44→17:47)
[2016-12-12 07:35] VITALS: BP 158/67; RESP 18
[2016-12-12] MEDS: INSULIN ASPART [NOVOLOG] 3 ML PEN SC SCH ×4 (08:00→21:00)
[2016-12-12] MEDS: CALCIUM ACETATE 667 MG CAP PO SCH ×3 (08:30→17:47)
[2016-12-12] MEDS: COLLAGENASE 30 GM TUBE TOP SCH (09:00)
[2016-12-12] MEDS: FUROSEMIDE 40 MG TAB PO SCH (09:22)
[2016-12-12] MEDS: METOPROLOL (XL) 50 MG TAB PO SCH ×2 (09:23→21:00)
[2016-12-12] MEDS: MONTELUKAST 10 MG TAB PO SCH (09:23)
[2016-12-12] MEDS: AMLODIPINE 5 MG TAB PO SCH (09:23)
[2016-12-12] MEDS: ASPIRIN 81 MG TAB PO SCH (09:23)
[2016-12-12] MEDS: LOSARTAN 50 MG TAB PO SCH ×2 (09:23→21:00)
[2016-12-12] MEDS: SUCRALFATE 1 GM TAB PO SCH ×4 (09:23→21:00)
[2016-12-12] MEDS: POLYETHYLENE GLYCOL 17 GM PACKET PO SCH ×2 (09:24→21:00)
[2016-12-12] MEDS: PYRIDOXINE 50 MG TAB PO SCH (09:24)
[2016-12-12] MEDS: DOCUSATE SODIUM 100 MG CAP PO SCH ×2 (09:24→22:00)
[2016-12-12] MEDS: CINACALCET 30 MG TAB PO SCH (09:24)
[2016-12-12] MEDS: NICOTINE (21 MG/24 HR) PATCH TRANSDERM SCH (09:24)
[2016-12-12] MEDS: DILTIAZEM (CD) 120 MG CAP PO SCH ×2 (09:24→21:00)
[2016-12-12] MEDS: SALMETEROL/FLUTICASONE 250/50 INHA INH SCH ×2 (09:25→21:45)
[2016-12-12] MEDS: TIOTROPIUM 18 MCG CAPSULE INHA DEV INH SCH (09:25)
--- NOTE | 2016-12-12 13:49 | CONS ---
Date/Time of Note Date/Time of Note DATE: 12/12/16 TIME: 13:45 Assessment/Plan Assessment/Plan Chief Complaint/Hosp Course Assessment/Plan Chief Complaint/Hosp Course ID PROGRESS NOTE ABX DAY # Vancomycin IV , Meropenem. 24H INTERVAL SUMMARY * Alert. Awake. No Acute Distress. * No fevers. PHYSICAL EXAMINATION: GENERAL: VSS, NAD, no fever, obese F HEENT: Unremarkable NECK: Trach midline CHEST: Equal chest rise bilaterally, without dyspnea on observation HEART: Pulse RRR ABDOMEN: Soft, left flank pain EXTREMITIES: Warm SKIN: Warm, dry, edema BLEXT w/wound vac ID ASSESSMENT: 61 yo super morbid obese F admitted with: 1. Acute encephalopathy, likely toxic metabolic => resolved. * Suspect underlying Psych DX NOS 2. Bilateral lower extremities chronic venous stasis with chronic cellulitis and left hip wound, s/p debridement and wound vac application 10/19/16. 3. End-stage renal disease, on hemodialysis. * Left upper extremity AV fistula 4. Healthcare associated pneumonia, possibly aspiration = CLINICALLY IMPROVED * CXR 11/26/16: There is air space disease at the right lung base consistent with pneumonia, unchanged. There is a small right pleural effusion, unchanged. 5. Atrial fibrillation. 6. COPD - stable 7. Diabetes 8. Hx of falls -> limited mobility due to super morbid obesity ABX ALLERGIES: PCN, CIPRO CURRENT ABX: ABX DAY # => Vancomycin IV , Meropenem. ID RECOMMENDATIONS: 1. Continue current ABX until last day per notes 12/11/16 2. DC Planning to SNF w/wound VAC Tx, may TNS on current ABX until last day 12/11 3. DC ABX after tonight's dose 4. Pain Management . Monitor Labs. Problems: Consultation Date/Type/Reason Admit Date/Time Nov 11, 2016 at 06:40 Initial Consult Date 12/02/16 Type of Consultation: ID Referring Provider: ERICK MATOS Exam/Review of Systems Vital Signs Vitals Vital Signs Date Time Temp Pulse Resp B/P Pulse Ox O2 Delivery O2 Flow Rate FiO2 12/12/16 08:00 Nasal Cannula 12/12/16 07:35 97.9 80 18 158/67 92 12/11/16 20:58 2.0 Intake and Output 12/11/16 12/11/16 12/12/16 15:00 23:00 07:00 Intake Total 500 ml 818 ml 240 ml Output Total 3500 ml 3 ml Balance -3000 ml 818 ml 237 ml Results Results 24 hrs Laboratory Tests Test 12/11/16 17:19 12/11/16 20:50 12/12/16 02:15 12/12/16 08:00 Bedside Glucose 172 181 109 53 L Test 12/12/16 09:20 12/12/16 10:16 12/12/16 12:23 Bedside Glucose 84 101 94 Medications Medications Current Medications Amlodipine Besylate (Norvasc) 5 mg DAILY PO Last administered on 12/12/16 09: 23; Admin Dose 5 MG; Start 11/11/16 at 09:30 Apixaban (Eliquis) 5 mg BID PO Last administered on 12/01/16 20:36; Admin Dose 5 MG; Start 11/11/16 at 09:30; Status Future Hold Aspirin (Aspirin) 81 mg DAILY PO Last administered on 12/12/16 09:23; Admin Dose 81 MG; Start 11/11/16 at 09:30 Atorvastatin Calcium (Lipitor) 40 mg QHS PO Last administered on 12/11/16 20: 52; Admin Dose 40 MG; Start 11/11/16 at 21:00 Benzonatate (Tessalon) 100 mg Q6 PO Last administered on 12/12/16 12:24; Admin Dose 100 MG; Start 11/11/16 at 12:00 Carisoprodol (Soma) 350 mg Q8 PRN PO MUSCLE SPASMS Last administered on 09:36; Admin Dose 350 MG; Start 11/11/16 at 12:00 Cinacalcet (Sensipar) 30 mg DAILY PO Last administered on 12/12/16 09:24; Admin Dose 30 MG; Start 11/11/16 at 11:00 Furosemide (Lasix) 80 mg DAILY PO Last administered on 12/12/16 09:22; Admin Dose 80 MG; Start 11/11/16 at 09:30 Losartan Potassium (Cozaar) 50 mg BID PO Last administered on 12/12/16 09:23; Admin Dose 50 MG; Start 11/11/16 at 09:30 Metoprolol Succinate (Toprol Xl) 50 mg BID PO Last administered on 12/12/16 09 :23; Admin Dose 50 MG; Start 11/11/16 at 09:30 Montelukast Sodium (Singulair) 10 mg QAM PO Last administered on 12/12/16 09: 23; Admin Dose 10 MG; Start 11/11/16 at 11:00 Oxycodone/ Acetaminophen (Endocet (10/ 325)) 1 tab Q6 PRN PO PRN Last administered on 12/07/16 21:51; Admin Dose 1 TAB; Start 11/11/16 at 12:00 Pyridoxine HCl (Vitamin B6) 50 mg DAILY PO Last administered on 12/12/16 09:24 ; Admin Dose 50 MG; Start 11/11/16 at 09:30 Tiotropium [place] (Spiriva) 1 inh DAILY INH Last administered on 12/12/16 09: 25; Admin Dose 1 INH; Start 11/11/16 at 11:00 Ondansetron HCl (Zofran Tab) 4 mg Q6H PRN PO NAUSEA AND/OR VOMITING Last administered on 11/22/16 08:46; Admin Dose 4 MG; Start 11/11/16 at 10:00 Salmeterol Xinafoate/ Fluticasone (Advair 250/50 Diskus) 1 inh BID INH Last administered on 12/12/16 09:25; Admin Dose 1 INH; Start 11/11/16 at 11:00 Albuterol (Ventolin Hfa) 2 puff Q4H PRN INH AOB Last administered on 12/11/16 16:14; Admin Dose 2 PUFF; Start 11/11/16 at 10:30 Epoetin Hang (Epogen (Esrd)) 10,000 units TuThSa@17 SC Last administered on 17:29; Admin Dose 10,000 UNITS; Start 11/11/16 at 17:00 Collagenase (Santyl) 1 applic DAILY TOP Last administered on 12/11/16 16:14; Admin Dose 1 APPLIC; Start 11/13/16 at 09:00 Diagnostic Test (Pha) (Accu-Chek) 1 ea 02 XX Last administered on 12/12/16 02: 00; Admin Dose 1 EA; Start 11/14/16 at 02:00 Insulin Detemir (Levemir) 35 unit QHS@20 SC Last administered on 12/11/16 20: 51; Admin Dose 35 UNIT; Start 11/14/16 at 20:00 Nicotine (Nicoderm 21 Mg/ 24hr) 1 patch DAILY TRANSDERM Last administered on 09:24; Admin Dose 1 PATCH; Start 11/14/16 at 20:00 Docusate Sodium (Colace) 100 mg Q12H PO Last administered on 12/12/16 09:24; Admin Dose 100 MG; Start 11/16/16 at 22:00 Miscellaneous Information 1 ea NOTE XX ; Start 11/17/16 at 11:30 Glucose (Glutose) 15 gm Q15M PRN PO DECREASED GLUCOSE; Start 11/17/16 at 11:30 Glucose (Glutose) 22.5 gm Q15M PRN PO DECREASED GLUCOSE; Start 11/17/16 at 11:30 Dextrose (D50w Syringe) 25 ml Q15M PRN IV DECREASED GLUCOSE; Start 11/17/16 at 11:30 Dextrose (D50w Syringe) 50 ml Q15M PRN IV DECREASED GLUCOSE; Start 11/17/16 at 11:30 Glucagon (Glucagen) 1 mg Q15M PRN IM DECREASED GLUCOSE; Start 11/17/16 at 11:30 Glucose (Glutose) 15 gm Q15M PRN BUCCAL DECREASED GLUCOSE; Start 11/17/16 at 11: 30 Polyethylene Glycol (Miralax) 17 gm BID PO Last administered on 12/12/16 09:24 ; Admin Dose 17 GM; Start 11/17/16 at 12:00 Bisacodyl (Dulcolax) 10 mg DAILY PRN PO CONSTIPATION; Start 11/17/16 at 11:30 Diltiazem HCl (Cardizem Cd) 120 mg BID PO Last administered on 12/12/16 09:24 ; Admin Dose 120 MG; Start 11/19/16 at 21:00 Zolpidem Tartrate (Ambien) 5 mg HS PRN PO INSOMNIA Last administered on 23:20; Admin Dose 5 MG; Start 11/19/16 at 21:30 Lorazepam (Ativan) 1 mg Q6H PRN IV AGITATION/ANXIETY Last administered on 03:29; Admin Dose 1 MG; Start 11/21/16 at 21:15 Guaifenesin/ Codeine Phosphate (Robitussin Ac Liquid Cup) 5 ml Q4H PRN PO COUGH Last administered on 12/06/16 16:06; Admin Dose 5 ML; Start 11/21/16 at 21 :30 Morphine Sulfate (morphine) 2 mg Q3H PRN IV for pain Last administered on 10:17; Admin Dose 2 MG; Start 11/24/16 at 18:30 Pantoprazole (Protonix Iv) 40 mg BID@18 IV Last administered on 12/12/16 05 :58; Admin Dose 40 MG; Start 12/02/16 at 18:00 Sucralfate (Carafate) 1 gm QID PO Last administered on 12/12/16 12:24; Admin Dose 1 GM; Start 12/03/16 at 17:00 NOÉ CAMARILLO NP Dec 12, 2016 13:48
--- NOTE | 2016-12-12 15:42 | PN ---
Date/Time of Note Date/Time of Note DATE: 12/12/16 TIME: 15:38 Assessment/Plan VTE Prophylaxis VTE Prophylaxis Intervention: heparin Lines/Catheters IV Catheter Type (from [facility]): [facility] Urinary Cath still in place: No Assessment/Plan Chief Complaint/Hosp Course 61 yo female with ESRD on HD, presented with nonhealing leg ulcers and pneumonia ESRD: - Continue HD per renal Hypertension: - Continue anithypertensive regimen Hyperphosphatemia - Continue phos binders COPD: - Continue symbicort and spiriva CAD: - Continue aspirin and statin Metabolic acidosis: - Continue alkali to bicarb normal DMII: - continue basal/bolus insulin. Decrease detemir to 30 given hypogylcemia episode Pneumonia: - s/p abx. resolved Wound vac to leg wounds Planning on dispo to SNF Problems: Subjective 24 Hr Interval Summary Free Text/Dictation No events Patient stable Exam/Review of Systems Vital Signs Vitals Vital Signs Date Time Temp Pulse Resp B/P Pulse Ox O2 Delivery O2 Flow Rate FiO2 12/12/16 08:00 Nasal Cannula 12/12/16 07:35 97.9 80 18 158/67 92 12/11/16 20:58 2.0 Intake and Output 12/11/16 12/11/16 12/12/16 15:00 23:00 07:00 Intake Total 500 ml 818 ml 240 ml Output Total 3500 ml 3 ml Balance -3000 ml 818 ml 237 ml Results Results 24 hrs Laboratory Tests Test 12/11/16 17:19 12/11/16 20:50 12/12/16 02:15 12/12/16 08:00 Bedside Glucose 172 181 109 53 L Test 12/12/16 09:20 12/12/16 10:16 12/12/16 12:23 Bedside Glucose 84 101 94 Medications Medications Current Medications Amlodipine Besylate (Norvasc) 5 mg DAILY PO Last administered on 12/12/16 09: 23; Admin Dose 5 MG; Start 11/11/16 at 09:30 Apixaban (Eliquis) 5 mg BID PO Last administered on 12/01/16 20:36; Admin Dose 5 MG; Start 11/11/16 at 09:30; Status Future Hold Aspirin (Aspirin) 81 mg DAILY PO Last administered on 12/12/16 09:23; Admin Dose 81 MG; Start 11/11/16 at 09:30 Atorvastatin Calcium (Lipitor) 40 mg QHS PO Last administered on 12/11/16 20: 52; Admin Dose 40 MG; Start 11/11/16 at 21:00 Benzonatate (Tessalon) 100 mg Q6 PO Last administered on 12/12/16 12:24; Admin Dose 100 MG; Start 11/11/16 at 12:00 Carisoprodol (Soma) 350 mg Q8 PRN PO MUSCLE SPASMS Last administered on 09:36; Admin Dose 350 MG; Start 11/11/16 at 12:00 Cinacalcet (Sensipar) 30 mg DAILY PO Last administered on 12/12/16 09:24; Admin Dose 30 MG; Start 11/11/16 at 11:00 Furosemide (Lasix) 80 mg DAILY PO Last administered on 12/12/16 09:22; Admin Dose 80 MG; Start 11/11/16 at 09:30 Losartan Potassium (Cozaar) 50 mg BID PO Last administered on 12/12/16 09:23; Admin Dose 50 MG; Start 11/11/16 at 09:30 Metoprolol Succinate (Toprol Xl) 50 mg BID PO Last administered on 12/12/16 09 :23; Admin Dose 50 MG; Start 11/11/16 at 09:30 Montelukast Sodium (Singulair) 10 mg QAM PO Last administered on 12/12/16 09: 23; Admin Dose 10 MG; Start 11/11/16 at 11:00 Oxycodone/ Acetaminophen (Endocet (10/ 325)) 1 tab Q6 PRN PO PRN Last administered on 12/07/16 21:51; Admin Dose 1 TAB; Start 11/11/16 at 12:00 Pyridoxine HCl (Vitamin B6) 50 mg DAILY PO Last administered on 12/12/16 09:24 ; Admin Dose 50 MG; Start 11/11/16 at 09:30 Tiotropium [place] (Spiriva) 1 inh DAILY INH Last administered on 12/12/16 09: 25; Admin Dose 1 INH; Start 11/11/16 at 11:00 Ondansetron HCl (Zofran Tab) 4 mg Q6H PRN PO NAUSEA AND/OR VOMITING Last administered on 11/22/16 08:46; Admin Dose 4 MG; Start 11/11/16 at 10:00 Salmeterol Xinafoate/ Fluticasone (Advair 250/50 Diskus) 1 inh BID INH Last administered on 12/12/16 09:25; Admin Dose 1 INH; Start 11/11/16 at 11:00 Albuterol (Ventolin Hfa) 2 puff Q4H PRN INH AOB Last administered on 12/11/16 16:14; Admin Dose 2 PUFF; Start 11/11/16 at 10:30 Epoetin Hang (Epogen (Esrd)) 10,000 units TuThSa@17 SC Last administered on 17:29; Admin Dose 10,000 UNITS; Start 11/11/16 at 17:00 Collagenase (Santyl) 1 applic DAILY TOP Last administered on 12/11/16 16:14; Admin Dose 1 APPLIC; Start 11/13/16 at 09:00 Diagnostic Test (Pha) (Accu-Chek) 1 ea 02 XX Last administered on 12/12/16 02: 00; Admin Dose 1 EA; Start 11/14/16 at 02:00 Insulin Detemir (Levemir) 35 unit QHS@20 SC Last administered on 12/11/16 20: 51; Admin Dose 35 UNIT; Start 11/14/16 at 20:00 Nicotine (Nicoderm 21 Mg/ 24hr) 1 patch DAILY TRANSDERM Last administered on 09:24; Admin Dose 1 PATCH; Start 11/14/16 at 20:00 Docusate Sodium (Colace) 100 mg Q12H PO Last administered on 12/12/16 09:24; Admin Dose 100 MG; Start 11/16/16 at 22:00 Miscellaneous Information 1 ea NOTE XX ; Start 11/17/16 at 11:30 Glucose (Glutose) 15 gm Q15M PRN PO DECREASED GLUCOSE; Start 11/17/16 at 11:30 Glucose (Glutose) 22.5 gm Q15M PRN PO DECREASED GLUCOSE; Start 11/17/16 at 11:30 Dextrose (D50w Syringe) 25 ml Q15M PRN IV DECREASED GLUCOSE; Start 11/17/16 at 11:30 Dextrose (D50w Syringe) 50 ml Q15M PRN IV DECREASED GLUCOSE; Start 11/17/16 at 11:30 Glucagon (Glucagen) 1 mg Q15M PRN IM DECREASED GLUCOSE; Start 11/17/16 at 11:30 Glucose (Glutose) 15 gm Q15M PRN BUCCAL DECREASED GLUCOSE; Start 11/17/16 at 11: 30 Polyethylene Glycol (Miralax) 17 gm BID PO Last administered on 12/12/16 09:24 ; Admin Dose 17 GM; Start 11/17/16 at 12:00 Bisacodyl (Dulcolax) 10 mg DAILY PRN PO CONSTIPATION; Start 11/17/16 at 11:30 Diltiazem HCl (Cardizem Cd) 120 mg BID PO Last administered on 12/12/16 09:24 ; Admin Dose 120 MG; Start 11/19/16 at 21:00 Zolpidem Tartrate (Ambien) 5 mg HS PRN PO INSOMNIA Last administered on 23:20; Admin Dose 5 MG; Start 11/19/16 at 21:30 Lorazepam (Ativan) 1 mg Q6H PRN IV AGITATION/ANXIETY Last administered on 03:29; Admin Dose 1 MG; Start 11/21/16 at 21:15 Guaifenesin/ Codeine Phosphate (Robitussin Ac Liquid Cup) 5 ml Q4H PRN PO COUGH Last administered on 12/06/16 16:06; Admin Dose 5 ML; Start 11/21/16 at 21 :30 Morphine Sulfate (morphine) 2 mg Q3H PRN IV for pain Last administered on 14:32; Admin Dose 2 MG; Start 11/24/16 at 18:30 Pantoprazole (Protonix Iv) 40 mg BID@06,18 IV Last administered on 12/12/16 05 :58; Admin Dose 40 MG; Start 12/02/16 at 18:00 Sucralfate (Carafate) 1 gm QID PO Last administered on 12/12/16 12:24; Admin Dose 1 GM; Start 12/03/16 at 17:00 AMERICO HOWARD MD Dec 12, 2016 15:42
[2016-12-12 20:00] VITALS: BP 114/57; RESP 20
[2016-12-12] MEDS: INSULIN DETEMIR [LEVEMIR] 3ML CART SC SCH (20:07)
[2016-12-12] MEDS: ATORVASTATIN 40 MG TAB PO SCH (21:00)
[2016-12-13] MEDS: BENZONATATE 100 MG CAP PO SCH ×5 (01:32→23:22)
[2016-12-13 02:00] VITALS: BP 110/60; RESP 19
[2016-12-13] MEDS: ACCU-CHEK XX SCH (02:00)
[2016-12-13] MEDS: COLLAGENASE 30 GM TUBE TOP SCH (04:55)
[2016-12-13] MEDS: morphine 2 MG INJ IV PRN ×3 (04:55→09:23)
[2016-12-13] MEDS: SALINE 0.65% 45 ML NAS SPRAY NASAL PRN (04:56)
[2016-12-13] MEDS: PANTOPRAZOLE 40 MG INJ IV SCH ×2 (06:05→18:05)
[2016-12-13 08:05] VITALS: BP 143/71; RESP 19
[2016-12-13] MEDS: AMLODIPINE 5 MG TAB PO SCH (08:09)
[2016-12-13] MEDS: CINACALCET 30 MG TAB PO SCH (08:09)
[2016-12-13] MEDS: TIOTROPIUM 18 MCG CAPSULE INHA DEV INH SCH (08:09)
[2016-12-13] MEDS: SALMETEROL/FLUTICASONE 250/50 INHA INH SCH ×2 (08:09→20:45)
[2016-12-13] MEDS: METOPROLOL (XL) 50 MG TAB PO SCH ×2 (08:10→20:47)
[2016-12-13] MEDS: CALCIUM ACETATE 667 MG CAP PO SCH ×3 (08:10→18:05)
[2016-12-13] MEDS: ASPIRIN 81 MG TAB PO SCH (08:10)
[2016-12-13] MEDS: FUROSEMIDE 40 MG TAB PO SCH (08:10)
[2016-12-13] MEDS: MONTELUKAST 10 MG TAB PO SCH (08:11)
[2016-12-13] MEDS: SUCRALFATE 1 GM TAB PO SCH ×4 (08:11→20:45)
[2016-12-13] MEDS: DILTIAZEM (CD) 120 MG CAP PO SCH ×2 (08:11→20:46)
[2016-12-13] MEDS: LOSARTAN 50 MG TAB PO SCH ×2 (08:11→20:46)
[2016-12-13] MEDS: METOCLOPRAMIDE 5 MG TAB PO SCH ×3 (08:11→18:05)
[2016-12-13] MEDS: PYRIDOXINE 50 MG TAB PO SCH (08:21)
[2016-12-13] MEDS: INSULIN ASPART [NOVOLOG] 3 ML PEN SC SCH ×4 (08:22→20:47)
[2016-12-13] MEDS: NICOTINE (21 MG/24 HR) PATCH TRANSDERM SCH (09:20)
[2016-12-13] MEDS: POLYETHYLENE GLYCOL 17 GM PACKET PO SCH ×2 (09:20→20:54)
[2016-12-13] MEDS: DOCUSATE SODIUM 100 MG CAP PO SCH ×2 (09:20→21:48)
--- NOTE | 2016-12-13 13:24 | CONS ---
Date/Time of Note Date/Time of Note DATE: 12/13/16 TIME: 13:23 Assessment/Plan Assessment/Plan Chief Complaint/Hosp Course - ESRD on Hemodialysis TTS @ [facility] - POST FALL - ACUTE ANEMIA - Hx of Cellulitis - CAD/CHF - Hx of Hypertension - Pneumonia PLAN: Bedside dialysis will continue TTS Aim for UF ~ 2 Kg Monitor H/H Continue with Abx Started EPOGEN Awaiting SNF Problems: Consultation Date/Type/Reason Admit Date/Time Nov 11, 2016 at 06:40 Initial Consult Date 11/12/16 Type of Consultation: NEPHROLOGY Reason for Consultation ESRD on dialysis Referring Provider: ERICK MATOS 24 HR Interval Summary Constitutional: improved, no complaints Exam/Review of Systems Vital Signs Vitals Vital Signs Date Time Temp Pulse Resp B/P Pulse Ox O2 Delivery O2 Flow Rate FiO2 12/13/16 08:05 98.1 95 19 143/71 95 12/13/16 00:36 2.0 12/12/16 20:00 Nasal Cannula Intake and Output 12/12/16 12/12/16 12/13/16 15:00 23:00 07:00 Intake Total 670 ml 720 ml Output Total 2 ml Balance 668 ml 720 ml Exam Constitutional: alert, oriented Psych: no complaints Head: normocephalic Respiratory: crackles/rales Cardiovascular: edema, regular rate and rhythm, systolic murmur Results Results 24 hrs Laboratory Tests Test 12/12/16 17:50 12/12/16 20:05 12/12/16 21:46 12/13/16 07:35 Bedside Glucose 118 133 155 142 Test 12/13/16 12:43 Bedside Glucose 228 H Medications Medications Current Medications Amlodipine Besylate (Norvasc) 5 mg DAILY PO Last administered on 12/13/16 08: 09; Admin Dose 5 MG; Start 11/11/16 at 09:30 Apixaban (Eliquis) 5 mg BID PO Last administered on 12/01/16 20:36; Admin Dose 5 MG; Start 11/11/16 at 09:30; Status Future Hold Aspirin (Aspirin) 81 mg DAILY PO Last administered on 12/13/16 08:10; Admin Dose 81 MG; Start 11/11/16 at 09:30 Atorvastatin Calcium (Lipitor) 40 mg QHS PO Last administered on 12/11/16 20: 52; Admin Dose 40 MG; Start 11/11/16 at 21:00 Benzonatate (Tessalon) 100 mg Q6 PO Last administered on 12/13/16 12:07; Admin Dose 100 MG; Start 11/11/16 at 12:00 Carisoprodol (Soma) 350 mg Q8 PRN PO MUSCLE SPASMS Last administered on 09:36; Admin Dose 350 MG; Start 11/11/16 at 12:00 Cinacalcet (Sensipar) 30 mg DAILY PO Last administered on 12/13/16 08:09; Admin Dose 30 MG; Start 11/11/16 at 11:00 Furosemide (Lasix) 80 mg DAILY PO Last administered on 12/13/16 08:10; Admin Dose 80 MG; Start 11/11/16 at 09:30 Losartan Potassium (Cozaar) 50 mg BID PO Last administered on 12/13/16 08:11; Admin Dose 50 MG; Start 11/11/16 at 09:30 Metoprolol Succinate (Toprol Xl) 50 mg BID PO Last administered on 12/13/16 08 :10; Admin Dose 50 MG; Start 11/11/16 at 09:30 Montelukast Sodium (Singulair) 10 mg QAM PO Last administered on 12/13/16 08: 11; Admin Dose 10 MG; Start 11/11/16 at 11:00 Oxycodone/ Acetaminophen (Endocet (10/ 325)) 1 tab Q6 PRN PO PRN Last administered on 12/07/16 21:51; Admin Dose 1 TAB; Start 11/11/16 at 12:00 Pyridoxine HCl (Vitamin B6) 50 mg DAILY PO Last administered on 12/13/16 08:21 ; Admin Dose 50 MG; Start 11/11/16 at 09:30 Tiotropium [place] (Spiriva) 1 inh DAILY INH Last administered on 12/13/16 08: 09; Admin Dose 1 INH; Start 11/11/16 at 11:00 Ondansetron HCl (Zofran Tab) 4 mg Q6H PRN PO NAUSEA AND/OR VOMITING Last administered on 11/22/16 08:46; Admin Dose 4 MG; Start 11/11/16 at 10:00 Salmeterol Xinafoate/ Fluticasone (Advair 250/50 Diskus) 1 inh BID INH Last administered on 12/13/16 08:09; Admin Dose 1 INH; Start 11/11/16 at 11:00 Albuterol (Ventolin Hfa) 2 puff Q4H PRN INH AOB Last administered on 12/11/16 16:14; Admin Dose 2 PUFF; Start 11/11/16 at 10:30 Epoetin Hang (Epogen (Esrd)) 10,000 units TuThSa@17 SC Last administered on 17:29; Admin Dose 10,000 UNITS; Start 11/11/16 at 17:00 Collagenase (Santyl) 1 applic DAILY TOP Last administered on 12/13/16 04:55; Admin Dose 1 APPLIC; Start 11/13/16 at 09:00 Diagnostic Test (Pha) (Accu-Chek) 1 ea 02 XX Last administered on 12/12/16 02: 00; Admin Dose 1 EA; Start 11/14/16 at 02:00 Nicotine (Nicoderm 21 Mg/ 24hr) 1 patch DAILY TRANSDERM Last administered on 09:20; Admin Dose 1 PATCH; Start 11/14/16 at 20:00 Docusate Sodium (Colace) 100 mg Q12H PO Last administered on 12/13/16 09:20; Admin Dose 100 MG; Start 11/16/16 at 22:00 Miscellaneous Information 1 ea NOTE XX ; Start 11/17/16 at 11:30 Glucose (Glutose) 15 gm Q15M PRN PO DECREASED GLUCOSE; Start 11/17/16 at 11:30 Glucose (Glutose) 22.5 gm Q15M PRN PO DECREASED GLUCOSE; Start 11/17/16 at 11:30 Dextrose (D50w Syringe) 25 ml Q15M PRN IV DECREASED GLUCOSE; Start 11/17/16 at 11:30 Dextrose (D50w Syringe) 50 ml Q15M PRN IV DECREASED GLUCOSE; Start 11/17/16 at 11:30 Glucagon (Glucagen) 1 mg Q15M PRN IM DECREASED GLUCOSE; Start 11/17/16 at 11:30 Glucose (Glutose) 15 gm Q15M PRN BUCCAL DECREASED GLUCOSE; Start 11/17/16 at 11: 30 Polyethylene Glycol (Miralax) 17 gm BID PO Last administered on 12/13/16 09:20 ; Admin Dose 17 GM; Start 11/17/16 at 12:00 Bisacodyl (Dulcolax) 10 mg DAILY PRN PO CONSTIPATION; Start 11/17/16 at 11:30 Diltiazem HCl (Cardizem Cd) 120 mg BID PO Last administered on 12/13/16 08:11 ; Admin Dose 120 MG; Start 11/19/16 at 21:00 Zolpidem Tartrate (Ambien) 5 mg HS PRN PO INSOMNIA Last administered on 23:20; Admin Dose 5 MG; Start 11/19/16 at 21:30 Lorazepam (Ativan) 1 mg Q6H PRN IV AGITATION/ANXIETY Last administered on 22:09; Admin Dose 1 MG; Start 11/21/16 at 21:15 Guaifenesin/ Codeine Phosphate (Robitussin Ac Liquid Cup) 5 ml Q4H PRN PO COUGH Last administered on 12/06/16 16:06; Admin Dose 5 ML; Start 11/21/16 at 21 :30 Morphine Sulfate (morphine) 2 mg Q3H PRN IV for pain Last administered on 09:23; Admin Dose 2 MG; Start 11/24/16 at 18:30 Pantoprazole (Protonix Iv) 40 mg BID@06,18 IV Last administered on 12/13/16 06 :05; Admin Dose 40 MG; Start 12/02/16 at 18:00 Sucralfate (Carafate) 1 gm QID PO Last administered on 12/13/16 12:05; Admin Dose 1 GM; Start 12/03/16 at 17:00 Insulin Detemir (Levemir) 30 unit QHS@20 SC Last administered on 12/12/16 20: 07; Admin Dose 30 UNIT; Start 12/12/16 at 20:00 Sodium Chloride (Deep Sea) 1 spray Q2H PRN NASAL NASAL CONGESTION Last administered on 12/13/16 04:56; Admin Dose 1 SPRAY; Start 12/12/16 at 21:30 BECKY GAMBLE MD Dec 13, 2016 13:24
[2016-12-13 13:25] VITALS: BP 126/60; PULSE 98; RESP 18
--- NOTE | 2016-12-13 16:43 | PN ---
Date/Time of Note Date/Time of Note DATE: 12/13/16 TIME: 16:39 Assessment/Plan VTE Prophylaxis VTE Prophylaxis Intervention: other Lines/Catheters IV Catheter Type (from Nrs): [place]ine Lock Urinary Cath still in place: No Assessment/Plan Chief Complaint/Hosp Course Patient is a 61-year-old female with past history of end-stage renal disease, diabetes, hypertension and obesity presents to [facility] 4 grown falls at home found to have ulcers and pneumonia. Assessment Debility Left lower extremity thigh area ulcer, with wound VAC GI bleed gastritis, erosive Diabetes type 2 End-stage renal disease, on dialysis Pneumonia Obesity Dyslipidemia Diabetic foot ulcers Bilateral lower extremity chronic venous stasis ulcers Chronic cellulitis Left hip wound Coronary artery disease Hypertension Atrial fibrillation Lower extremity edema Insomnia Plan -protonix bid per GI, EGD showed gastritis, GI okay to restart eliquis for a-fib , will watch closely. h and h tomorrow. -Patient has multiple medical conditions, continue chronic care -Patient wound vac removed. ABX finished -consulted Dr. Forrester, general surgery for R hip wound. per Dr. Fuentes's recommendation. -continue home medications as able -Patient will likely need long term, pending placement at this time, disposition issue with placement. -As needed medications for pain -continue HD for ESRD. Stefan Munson DO Problems: Subjective 24 Hr Interval Summary Free Text/Dictation no new complaints Exam/Review of Systems Vital Signs Vitals Vital Signs Date Time Temp Pulse Resp B/P Pulse Ox O2 Delivery O2 Flow Rate FiO2 12/13/16 13:25 98.7 98 18 126/60 95 Room Air 12/13/16 08:00 2.0 Intake and Output 12/12/16 12/12/16 12/13/16 15:00 23:00 07:00 Intake Total 670 ml 720 ml Output Total 2 ml Balance 668 ml 720 ml Exam Physical exam General: Patient is laying in bed and answers questions appropriately Mentation: Patient is alert and oriented 4, Head: Normocephalic atraumatic Eyes: EOMI, pupils reactive to light Neck: Supple, nontender, midline Respiratory:mildly course to auscultation bilaterally Cardiovascular: regular rate, no obvious murmurs Gastrointestinal: non-tender to palpation, bowel sounds heard. Neurological: Moves all extremities spontaneously Skin: multiple skin lesions on body. L hip wound. multiple LE ulcerations. R hip wound. Results Results 24 hrs Laboratory Tests Test 12/12/16 17:50 12/12/16 20:05 12/12/16 21:46 12/13/16 07:35 Bedside Glucose 118 133 155 142 Test 12/13/16 12:43 Bedside Glucose 228 H Medications Medications Current Medications Amlodipine Besylate (Norvasc) 5 mg DAILY PO Last administered on 12/13/16 08: 09; Admin Dose 5 MG; Start 11/11/16 at 09:30 Aspirin (Aspirin) 81 mg DAILY PO Last administered on 12/13/16 08:10; Admin Dose 81 MG; Start 11/11/16 at 09:30 Atorvastatin Calcium (Lipitor) 40 mg QHS PO Last administered on 12/11/16 20: 52; Admin Dose 40 MG; Start 11/11/16 at 21:00 Benzonatate (Tessalon) 100 mg Q6 PO Last administered on 12/13/16 12:07; Admin Dose 100 MG; Start 11/11/16 at 12:00 Carisoprodol (Soma) 350 mg Q8 PRN PO MUSCLE SPASMS Last administered on 09:36; Admin Dose 350 MG; Start 11/11/16 at 12:00 Cinacalcet (Sensipar) 30 mg DAILY PO Last administered on 12/13/16 08:09; Admin Dose 30 MG; Start 11/11/16 at 11:00 Furosemide (Lasix) 80 mg DAILY PO Last administered on 12/13/16 08:10; Admin Dose 80 MG; Start 11/11/16 at 09:30 Losartan Potassium (Cozaar) 50 mg BID PO Last administered on 12/13/16 08:11; Admin Dose 50 MG; Start 11/11/16 at 09:30 Metoprolol Succinate (Toprol Xl) 50 mg BID PO Last administered on 12/13/16 08 :10; Admin Dose 50 MG; Start 11/11/16 at 09:30 Montelukast Sodium (Singulair) 10 mg QAM PO Last administered on 12/13/16 08: 11; Admin Dose 10 MG; Start 11/11/16 at 11:00 Oxycodone/ Acetaminophen (Endocet (10/ 325)) 1 tab Q6 PRN PO PRN Last administered on 12/07/16 21:51; Admin Dose 1 TAB; Start 11/11/16 at 12:00 Pyridoxine HCl (Vitamin B6) 50 mg DAILY PO Last administered on 12/13/16 08:21 ; Admin Dose 50 MG; Start 11/11/16 at 09:30 Tiotropium [place] (Spiriva) 1 inh DAILY INH Last administered on 12/13/16 08: 09; Admin Dose 1 INH; Start 11/11/16 at 11:00 Ondansetron HCl (Zofran Tab) 4 mg Q6H PRN PO NAUSEA AND/OR VOMITING Last administered on 11/22/16 08:46; Admin Dose 4 MG; Start 11/11/16 at 10:00 Salmeterol Xinafoate/ Fluticasone (Advair 250/50 Diskus) 1 inh BID INH Last administered on 12/13/16 08:09; Admin Dose 1 INH; Start 11/11/16 at 11:00 Albuterol (Ventolin Hfa) 2 puff Q4H PRN INH AOB Last administered on 12/11/16 16:14; Admin Dose 2 PUFF; Start 11/11/16 at 10:30 Epoetin Hang (Epogen (Esrd)) 10,000 units TuThSa@17 SC Last administered on 17:29; Admin Dose 10,000 UNITS; Start 11/11/16 at 17:00 Collagenase (Santyl) 1 applic DAILY TOP Last administered on 12/13/16 04:55; Admin Dose 1 APPLIC; Start 11/13/16 at 09:00 Diagnostic Test (Pha) (Accu-Chek) 1 ea 02 XX Last administered on 12/12/16 02: 00; Admin Dose 1 EA; Start 11/14/16 at 02:00 Nicotine (Nicoderm 21 Mg/ 24hr) 1 patch DAILY TRANSDERM Last administered on 09:20; Admin Dose 1 PATCH; Start 11/14/16 at 20:00 Docusate Sodium (Colace) 100 mg Q12H PO Last administered on 12/13/16 09:20; Admin Dose 100 MG; Start 11/16/16 at 22:00 Miscellaneous Information 1 ea NOTE XX ; Start 11/17/16 at 11:30 Glucose (Glutose) 15 gm Q15M PRN PO DECREASED GLUCOSE; Start 11/17/16 at 11:30 Glucose (Glutose) 22.5 gm Q15M PRN PO DECREASED GLUCOSE; Start 11/17/16 at 11:30 Dextrose (D50w Syringe) 25 ml Q15M PRN IV DECREASED GLUCOSE; Start 11/17/16 at 11:30 Dextrose (D50w Syringe) 50 ml Q15M PRN IV DECREASED GLUCOSE; Start 11/17/16 at 11:30 Glucagon (Glucagen) 1 mg Q15M PRN IM DECREASED GLUCOSE; Start 11/17/16 at 11:30 Glucose (Glutose) 15 gm Q15M PRN BUCCAL DECREASED GLUCOSE; Start 11/17/16 at 11: 30 Polyethylene Glycol (Miralax) 17 gm BID PO Last administered on 12/13/16 09:20 ; Admin Dose 17 GM; Start 11/17/16 at 12:00 Bisacodyl (Dulcolax) 10 mg DAILY PRN PO CONSTIPATION; Start 11/17/16 at 11:30 Diltiazem HCl (Cardizem Cd) 120 mg BID PO Last administered on 12/13/16 08:11 ; Admin Dose 120 MG; Start 11/19/16 at 21:00 Zolpidem Tartrate (Ambien) 5 mg HS PRN PO INSOMNIA Last administered on 23:20; Admin Dose 5 MG; Start 11/19/16 at 21:30 Lorazepam (Ativan) 1 mg Q6H PRN IV AGITATION/ANXIETY Last administered on 22:09; Admin Dose 1 MG; Start 11/21/16 at 21:15 Guaifenesin/ Codeine Phosphate (Robitussin Ac Liquid Cup) 5 ml Q4H PRN PO COUGH Last administered on 12/06/16 16:06; Admin Dose 5 ML; Start 11/21/16 at 21 :30 Pantoprazole (Protonix Iv) 40 mg BID@,18 IV Last administered on 12/13/16 06 :05; Admin Dose 40 MG; Start 12/02/16 at 18:00 Sucralfate (Carafate) 1 gm QID PO Last administered on 12/13/16 12:05; Admin Dose 1 GM; Start 12/03/16 at 17:00 Insulin Detemir (Levemir) 30 unit QHS@20 SC Last administered on 12/12/16 20: 07; Admin Dose 30 UNIT; Start 12/12/16 at 20:00 Sodium Chloride (Deep [place]) 1 spray Q2H PRN NASAL NASAL CONGESTION Last administered on 12/13/16 04:56; Admin Dose 1 SPRAY; Start 12/12/16 at 21:30 Morphine Sulfate (morphine) 2 mg Q3H PRN IV for pain; Start 12/13/16 at 14:30 Apixaban (Eliquis) 5 mg BID PO ; Start 12/13/16 at 21:00 STEFAN MUNSON Dec 13, 2016 16:43
--- NOTE | 2016-12-13 18:28 | CONS ---
Date/Time of Note Date/Time of Note DATE: 12/13/16 TIME: 18:18 Assessment/Plan Assessment/Plan Chief Complaint/Hosp Course ID PROGRESS NOTE ABX DAY => OFF ABX DAY #2 S/P TOTAL ABX DAYS #30 s/p ABX from 11/11/16 - 12/11/16 s/p Vancomycin IV s/p Meropenem + others 24H INTERVAL SUMMARY * Super morbid obese 61 yo F w/Psych Dx NOS ==>Clinically status quo -- No fevers, VSS, WBC normal == stable OFF ABX 48 Hours * Wound care continues w/ Clinitron pressure reducing mattress * Nursing staff express frustration/concern that patient refuses to allow them to reposition her Q2H, prefers to stay asleep after pain meds lying still for hours, she becomes angry and agitated if they attempt to encourage her to turned. * No fevers, VSS, WBC normal PHYSICAL EXAMINATION: GENERAL: VSS, NAD, no fever, obese F HEENT: Unremarkable NECK: Trach midline CHEST: Equal chest rise bilaterally, without dyspnea on observation HEART: Pulse RRR ABDOMEN: Soft, left flank pain EXTREMITIES: Warm SKIN: Warm, dry, edema BLEXT w/wound vac ID ASSESSMENT: 61 yo super morbid obese F admitted with: 1. Acute encephalopathy, likely toxic metabolic => RESOLVED * Suspect underlying Psych DX NOS 2. Bilateral lower extremities chronic venous stasis with chronic cellulitis and left hip wound, s/p debridement and wound vac application 10/19/16. 3. End-stage renal disease, on hemodialysis. * Left upper extremity AV fistula 4. Healthcare associated pneumonia, possibly aspiration = Clinically improved - Completed lengthy course IV ABX 5. Atrial fibrillation. 6. COPD - stable 7. Diabetes 8. Hx of falls -> limited mobility due to super morbid obesity ABX ALLERGIES: PCN, CIPRO CURRENT ABX: => OFF ABX DAY #2 S/P TOTAL ABX DAYS #30 s/p ABX from 11/11/16 - 12/11/16 s/p Vancomycin IV s/p Meropenem + others ID RECOMMENDATIONS: 1. Patient has completed 30 days of IV ABX for PNA and wounds -> She is OFF ABX and stable 2. Monitor her OFF ABX at this time w/PRN repeat MICRO Cx for TEMP >101.5 and/ or other clinical indicators 3. Continue local wound care 4. May DC or TNS OFF ABX as long as afebrile with OP wound care and wound f/u . Problems: Consultation Date/Type/Reason Admit Date/Time Nov 11, 2016 at 06:40 Initial Consult Date 11/12/16 Type of Consultation: ID Referring Provider: ERICK MATOS Exam/Review of Systems Vital Signs Vitals Vital Signs Date Time Temp Pulse Resp B/P Pulse Ox O2 Delivery O2 Flow Rate FiO2 12/13/16 13:25 98.7 98 18 126/60 95 Room Air 12/13/16 08:00 2.0 Intake and Output 12/12/16 12/12/16 12/13/16 15:00 23:00 07:00 Intake Total 670 ml 720 ml Output Total 2 ml Balance 668 ml 720 ml Results Results 24 hrs Laboratory Tests Test 12/12/16 20:05 12/12/16 21:46 12/13/16 07:35 12/13/16 12:43 Bedside Glucose 133 155 142 228 H Test 12/13/16 17:32 Bedside Glucose 136 Medications Medications Current Medications Amlodipine Besylate (Norvasc) 5 mg DAILY PO Last administered on 12/13/16 08: 09; Admin Dose 5 MG; Start 11/11/16 at 09:30 Aspirin (Aspirin) 81 mg DAILY PO Last administered on 12/13/16 08:10; Admin Dose 81 MG; Start 11/11/16 at 09:30 Atorvastatin Calcium (Lipitor) 40 mg QHS PO Last administered on 12/11/16 20: 52; Admin Dose 40 MG; Start 11/11/16 at 21:00 Benzonatate (Tessalon) 100 mg Q6 PO Last administered on 12/13/16 18:05; Admin Dose 100 MG; Start 11/11/16 at 12:00 Carisoprodol (Soma) 350 mg Q8 PRN PO MUSCLE SPASMS Last administered on 09:36; Admin Dose 350 MG; Start 11/11/16 at 12:00 Cinacalcet (Sensipar) 30 mg DAILY PO Last administered on 12/13/16 08:09; Admin Dose 30 MG; Start 11/11/16 at 11:00 Furosemide (Lasix) 80 mg DAILY PO Last administered on 12/13/16 08:10; Admin Dose 80 MG; Start 11/11/16 at 09:30 Losartan Potassium (Cozaar) 50 mg BID PO Last administered on 12/13/16 08:11; Admin Dose 50 MG; Start 11/11/16 at 09:30 Metoprolol Succinate (Toprol Xl) 50 mg BID PO Last administered on 12/13/16 08 :10; Admin Dose 50 MG; Start 11/11/16 at 09:30 Montelukast Sodium (Singulair) 10 mg QAM PO Last administered on 12/13/16 08: 11; Admin Dose 10 MG; Start 11/11/16 at 11:00 Oxycodone/ Acetaminophen (Endocet (10)) 1 tab Q6 PRN PO PRN Last administered on 12/07/16 21:51; Admin Dose 1 TAB; Start 11/11/16 at 12:00 Pyridoxine HCl (Vitamin B6) 50 mg DAILY PO Last administered on 12/13/16 08:21 ; Admin Dose 50 MG; Start 11/11/16 at 09:30 Tiotropium [place] (Spiriva) 1 inh DAILY INH Last administered on 12/13/16 08: 09; Admin Dose 1 INH; Start 11/11/16 at 11:00 Ondansetron HCl (Zofran Tab) 4 mg Q6H PRN PO NAUSEA AND/OR VOMITING Last administered on 11/22/16 08:46; Admin Dose 4 MG; Start 11/11/16 at 10:00 Salmeterol Xinafoate/ Fluticasone (Advair 250/50 Diskus) 1 inh BID INH Last administered on 12/13/16 08:09; Admin Dose 1 INH; Start 11/11/16 at 11:00 Albuterol (Ventolin Hfa) 2 puff Q4H PRN INH AOB Last administered on 12/11/16 16:14; Admin Dose 2 PUFF; Start 11/11/16 at 10:30 Epoetin [place] (Epogen (Esrd)) 10,000 units TuThSa@17 SC Last administered on 17:29; Admin Dose 10,000 UNITS; Start 11/11/16 at 17:00 Collagenase (Santyl) 1 applic DAILY TOP Last administered on 12/13/16 04:55; Admin Dose 1 APPLIC; Start 11/13/16 at 09:00 Diagnostic Test (Pha) (Accu-Chek) 1 ea 02 XX Last administered on 12/12/16 02: 00; Admin Dose 1 EA; Start 11/14/16 at 02:00 Nicotine (Nicoderm 21 Mg/ 24hr) 1 patch DAILY TRANSDERM Last administered on 09:20; Admin Dose 1 PATCH; Start 11/14/16 at 20:00 Docusate Sodium (Colace) 100 mg Q12H PO Last administered on 12/13/16 09:20; Admin Dose 100 MG; Start 11/16/16 at 22:00 Miscellaneous Information 1 ea NOTE XX ; Start 11/17/16 at 11:30 Glucose (Glutose) 15 gm Q15M PRN PO DECREASED GLUCOSE; Start 11/17/16 at 11:30 Glucose (Glutose) 22.5 gm Q15M PRN PO DECREASED GLUCOSE; Start 11/17/16 at 11:30 Dextrose (D50w Syringe) 25 ml Q15M PRN IV DECREASED GLUCOSE; Start 11/17/16 at 11:30 Dextrose (D50w Syringe) 50 ml Q15M PRN IV DECREASED GLUCOSE; Start 11/17/16 at 11:30 Glucagon (Glucagen) 1 mg Q15M PRN IM DECREASED GLUCOSE; Start 11/17/16 at 11:30 Glucose (Glutose) 15 gm Q15M PRN BUCCAL DECREASED GLUCOSE; Start 11/17/16 at 11: 30 Polyethylene Glycol (Miralax) 17 gm BID PO Last administered on 12/13/16 09:20 ; Admin Dose 17 GM; Start 11/17/16 at 12:00 Bisacodyl (Dulcolax) 10 mg DAILY PRN PO CONSTIPATION; Start 11/17/16 at 11:30 Diltiazem HCl (Cardizem Cd) 120 mg BID PO Last administered on 12/13/16 08:11 ; Admin Dose 120 MG; Start 11/19/16 at 21:00 Zolpidem Tartrate (Ambien) 5 mg HS PRN PO INSOMNIA Last administered on 23:20; Admin Dose 5 MG; Start 11/19/16 at 21:30 Lorazepam (Ativan) 1 mg Q6H PRN IV AGITATION/ANXIETY Last administered on 22:09; Admin Dose 1 MG; Start 11/21/16 at 21:15 Guaifenesin/ Codeine Phosphate (Robitussin Ac Liquid Cup) 5 ml Q4H PRN PO COUGH Last administered on 12/06/16 16:06; Admin Dose 5 ML; Start 11/21/16 at 21 :30 Pantoprazole (Protonix Iv) 40 mg BID@06,18 IV Last administered on 12/13/16 18 :05; Admin Dose 40 MG; Start 12/02/16 at 18:00 Sucralfate (Carafate) 1 gm QID PO Last administered on 12/13/16 18:05; Admin Dose 1 GM; Start 12/03/16 at 17:00 Insulin Detemir (Levemir) 30 unit QHS@20 SC Last administered on 12/12/16 20: 07; Admin Dose 30 UNIT; Start 12/12/16 at 20:00 Sodium Chloride ([place]) 1 spray Q2H PRN NASAL NASAL CONGESTION Last administered on 12/13/16 04:56; Admin Dose 1 SPRAY; Start 12/12/16 at 21:30 Morphine Sulfate (morphine) 2 mg Q3H PRN IV for pain; Start 12/13/16 at 14:30 Apixaban (Eliquis) 5 mg BID PO ; Start 12/13/16 at 21:00 STEFAN COMBS NP Dec 13, 2016 18:28
[2016-12-13] MEDS: morphine 4 MG/ML VIAL IV PRN (18:31)
[2016-12-13] MEDS: ATORVASTATIN 40 MG TAB PO SCH (20:44)
[2016-12-13] MEDS: APIXABAN 5 MG TABLET PO SCH (20:44)
[2016-12-13] MEDS: INSULIN DETEMIR [LEVEMIR] 3ML CART SC SCH (20:48)
[2016-12-13 20:53] VITALS: BP 141/63; RESP 20
[2016-12-13] MEDS: LORAZEPAM 2 MG INJ IV PRN (21:42)
[2016-12-13 22:00] VITALS: BP 123/56; PULSE 99
[2016-12-13] MEDS: ZOLPIDEM 5 MG TAB PO PRN (23:23)
[2016-12-14] VITALS (10 sets, daily range): BP systolic 104–129; BP diastolic 55–87; PULSE 79–89; RESP 18–22
[2016-12-14] MEDS: ACCU-CHEK XX SCH (02:00)
[2016-12-14] MEDS: morphine 4 MG/ML VIAL IV PRN (02:09)
[2016-12-14] MEDS: GUAIFENESIN/CODEINE 5ML CUP PO PRN (03:48)
[2016-12-14] MEDS: LORAZEPAM 2 MG INJ IV PRN (03:48)
[2016-12-14 05:34] LABS: BASOPHIL # 0.1 10^3/ul (0.0-0.1); EOSINOPHILS # 0.6 10^3/ul (0.0-0.5); EOSINOPHILS % 7.1 % (0.0-7.0); HEMATOCRIT 25.2 % (37.0-47.0); HEMOGLOBIN 7.4 g/dl (12.0-16.0); LYMPHOCYTES # 1.4 10^3/ul (0.8-2.9); LYMPHOCYTES % 15.7 % (15.0-51.0); MEAN CORPUSCULAR HEMOGLOBIN 27.6 pg (29.0-33.0); MEAN CORPUSCULAR HGB CONC 29.4 g/dl (32.0-37.0); MEAN PLATELET VOLUME 9.3 fl (7.4-10.4); MONOCYTE # 1.3 10^3/ul (0.3-0.9); MONOCYTES % 15.2 % (0.0-11.0); NEUTROPHIL # 5.2 10^3/ul (1.6-7.5); NEUTROPHILS % 60.2 % (39.0-77.0); PLATELET COUNT 351 10^3/UL (140-415); RED BLOOD COUNT 2.68 10^6/ul (4.20-5.40); RED CELL DISTRIBUTION WIDTH 18.6 % (11.5-14.5); WHITE BLOOD COUNT 8.6 10^3/ul (4.8-10.8)
[2016-12-14 05:56] LABS: CALCIUM 10.4 mg/dl (8.4-10.2); CREATININE 4.11 mg/dl (0.44-1.00); MAGNESIUM 2.4 mg/dl (1.7-2.5); PHOSPHORUS 2.8 mg/dl (2.5-4.9); POTASSIUM 3.9 mmol/L (3.5-5.1)
[2016-12-14] MEDS: PANTOPRAZOLE 40 MG INJ IV SCH ×2 (06:41→17:47)
[2016-12-14] MEDS: BENZONATATE 100 MG CAP PO SCH ×4 (06:41→23:47)
[2016-12-14] MEDS: INSULIN ASPART [NOVOLOG] 3 ML PEN SC SCH ×4 (08:00→21:00)
[2016-12-14] MEDS: POLYETHYLENE GLYCOL 17 GM PACKET PO SCH ×2 (09:00→21:00)
[2016-12-14] MEDS: COLLAGENASE 30 GM TUBE TOP SCH (09:00)
[2016-12-14] MEDS: FUROSEMIDE 40 MG TAB PO SCH (09:22)
[2016-12-14] MEDS: SUCRALFATE 1 GM TAB PO SCH ×4 (09:22→23:18)
[2016-12-14] MEDS: NICOTINE (21 MG/24 HR) PATCH TRANSDERM SCH (09:22)
[2016-12-14] MEDS: CINACALCET 30 MG TAB PO SCH (09:22)
[2016-12-14] MEDS: MONTELUKAST 10 MG TAB PO SCH (09:23)
[2016-12-14] MEDS: TIOTROPIUM 18 MCG CAPSULE INHA DEV INH SCH (09:23)
[2016-12-14] MEDS: LOSARTAN 50 MG TAB PO SCH ×2 (09:23→23:17)
[2016-12-14] MEDS: SALMETEROL/FLUTICASONE 250/50 INHA INH SCH ×2 (09:23→22:01)
[2016-12-14] MEDS: APIXABAN 5 MG TABLET PO SCH ×2 (09:23→23:18)
[2016-12-14] MEDS: PYRIDOXINE 50 MG TAB PO SCH (09:23)
[2016-12-14] MEDS: AMLODIPINE 5 MG TAB PO SCH (09:23)
[2016-12-14] MEDS: METOPROLOL (XL) 50 MG TAB PO SCH ×2 (09:24→23:17)
[2016-12-14] MEDS: CALCIUM ACETATE 667 MG CAP PO SCH ×3 (09:24→17:48)
[2016-12-14] MEDS: METOCLOPRAMIDE 5 MG TAB PO SCH ×3 (09:24→17:47)
[2016-12-14] MEDS: ASPIRIN 81 MG TAB PO SCH (09:24)
[2016-12-14] MEDS: DILTIAZEM (CD) 120 MG CAP PO SCH ×2 (09:24→23:18)
[2016-12-14] MEDS: DOCUSATE SODIUM 100 MG CAP PO SCH ×3 (09:25→23:18)
[2016-12-14 12:17] LABS: HEMATOCRIT 25.2 % (37.0-47.0); HEMOGLOBIN 7.5 g/dl (12.0-16.0)
--- NOTE | 2016-12-14 14:32 | CONS ---
Date/Time of Note Date/Time of Note DATE: 12/14/16 TIME: 14:30 Assessment/Plan Assessment/Plan Chief Complaint/Hosp Course ID PROGRESS NOTE ABX DAY => OFF ABX DAY #3 S/P TOTAL ABX DAYS #30 s/p ABX from 11/11/16 - 12/11/16 s/p Vancomycin IV s/p Meropenem + others 24H INTERVAL SUMMARY * Clinically stable OFF ABX with WBC normalized at 8.1, no F/C/N/V/D/SOB; (+) anemia management by primary * Super morbid obese 61 yo F w/Psych Dx NOS * Wound care continues w/ Clinitron pressure reducing mattress * Nursing staff express frustration/concern that patient refuses to allow them to reposition her Q2H, prefers to stay asleep after pain meds lying still for hours, she becomes angry and agitated if they attempt to encourage her to turned. * No fevers, VSS, WBC normal PHYSICAL EXAMINATION: GENERAL: VSS, NAD, no fever, obese F HEENT: Unremarkable NECK: Trach midline CHEST: Equal chest rise bilaterally, without dyspnea on observation HEART: Pulse RRR ABDOMEN: Soft, left flank pain EXTREMITIES: Warm SKIN: Warm, dry, edema BLEXT w/wound vac ID ASSESSMENT: 61 yo super morbid obese F admitted with: 1. Acute encephalopathy, likely toxic metabolic => RESOLVED * Suspect underlying Psych DX NOS 2. Bilateral lower extremities chronic venous stasis with chronic cellulitis and left hip wound, s/p debridement and wound vac application 10/19/16. 3. End-stage renal disease, on hemodialysis. * Left upper extremity AV fistula 4. Healthcare associated pneumonia, possibly aspiration = Clinically improved - Completed lengthy course IV ABX 5. Atrial fibrillation. 6. COPD - stable 7. Diabetes 8. Hx of falls -> limited mobility due to super morbid obesity 9. Anemia-> managed by primary ABX ALLERGIES: PCN, CIPRO CURRENT ABX: => OFF ABX DAY #3 S/P TOTAL ABX DAYS #30 s/p ABX from 11/11/16 - 12/11/16 s/p Vancomycin IV s/p Meropenem + others ID RECOMMENDATIONS: 1. Patient has completed 30 days of IV ABX for PNA and wounds -> She is OFF ABX and stable DAY #3 * ==>Clinically status quo -- No fevers, VSS, WBC normal == stable OFF ABX 72 Hours 2. Monitor her OFF ABX at this time w/PRN repeat MICRO Cx for TEMP >101.5 and/ or other clinical indicators 3. Continue local wound care 4. May DC or TNS OFF ABX as long as afebrile with OP wound care and wound f/u . Problems: Consultation Date/Type/Reason Admit Date/Time Nov 11, 2016 at 06:40 Initial Consult Date 11/12/16 Type of Consultation: ID Referring Provider: ERICK MATOS Exam/Review of Systems Vital Signs Vitals Vital Signs Date Time Temp Pulse Resp B/P Pulse Ox O2 Delivery O2 Flow Rate FiO2 12/14/16 11:55 Nasal Cannula 2.0 12/14/16 08:30 97.8 73 22 123/59 93 Intake and Output 12/13/16 12/13/16 12/14/16 15:00 23:00 07:00 Intake Total 820 ml 660 ml Balance 820 ml 660 ml Results Result Diagram: 12/14/16 1201 12/14/16 0520 Results 24 hrs Laboratory Tests Test 12/13/16 17:32 12/13/16 20:40 12/14/16 05:20 12/14/16 09:13 Bedside Glucose 136 165 82 White Blood Count 8.6 # Red Blood Count 2.68 L Hemoglobin 7.4 L Hematocrit 25.2 L Mean Corpuscular Volume 94.0 Mean Corpuscular Hemoglobin 27.6 L Mean Corpuscular Hemoglobin Concent 29.4 L Red Cell Distribution Width 18.6 H Platelet Count 351 Mean Platelet Volume 9.3 Neutrophils % 60.2 Lymphocytes % 15.7 Monocytes % 15.2 H Eosinophils % 7.1 H Basophils % 1.0 Nucleated Red Blood Cells % 0.0 Neutrophils # 5.2 Lymphocytes # 1.4 Monocytes # 1.3 H Eosinophils # 0.6 H Basophils # 0.1 Nucleated Red Blood Cells # 0.0 Sodium Level 145 H Potassium Level 3.9 Chloride Level 102 Carbon Dioxide Level 30 Anion Gap 17 H Blood Urea Nitrogen 40 H Creatinine 4.11 H Glucose Level 98 Calcium Level 10.4 H Phosphorus Level 2.8 Magnesium Level 2.4 Test 12/14/16 12:01 12/14/16 12:10 Hemoglobin 7.5 L Hematocrit 25.2 L Bedside Glucose 98 Medications Medications Current Medications Amlodipine Besylate (Norvasc) 5 mg DAILY PO Last administered on 12/14/16 09:23 ; Admin Dose 5 MG; Start 11/11/16 at 09:30 Aspirin (Aspirin) 81 mg DAILY PO Last administered on 12/14/16 09:24; Admin Dose 81 MG; Start 11/11/16 at 09:30 Atorvastatin Calcium (Lipitor) 40 mg QHS PO Last administered on 12/13/16 20: 44; Admin Dose 40 MG; Start 11/11/16 at 21:00 Benzonatate (Tessalon) 100 mg Q6 PO Last administered on 12/14/16 06:41; Admin Dose 100 MG; Start 11/11/16 at 12:00 Carisoprodol (Soma) 350 mg Q8 PRN PO MUSCLE SPASMS Last administered on 09:36; Admin Dose 350 MG; Start 11/11/16 at 12:00 Cinacalcet (Sensipar) 30 mg DAILY PO Last administered on 12/14/16 09:22; Admin Dose 30 MG; Start 11/11/16 at 11:00 Furosemide (Lasix) 80 mg DAILY PO Last administered on 12/14/16 09:22; Admin Dose 80 MG; Start 11/11/16 at 09:30 Losartan Potassium (Cozaar) 50 mg BID PO Last administered on 12/14/16 09:23; Admin Dose 50 MG; Start 11/11/16 at 09:30 Metoprolol Succinate (Toprol Xl) 50 mg BID PO Last administered on 12/14/16 09: 24; Admin Dose 50 MG; Start 11/11/16 at 09:30 Montelukast Sodium (Singulair) 10 mg QAM PO Last administered on 12/14/16 09:23 ; Admin Dose 10 MG; Start 11/11/16 at 11:00 Oxycodone/ Acetaminophen (Endocet (10/ 325)) 1 tab Q6 PRN PO PRN Last administered on 12/07/16 21:51; Admin Dose 1 TAB; Start 11/11/16 at 12:00 Pyridoxine HCl (Vitamin B6) 50 mg DAILY PO Last administered on 12/14/16 09:23 ; Admin Dose 50 MG; Start 11/11/16 at 09:30 Tiotropium [place] (Spiriva) 1 inh DAILY INH Last administered on 12/14/16 09: 23; Admin Dose 1 INH; Start 11/11/16 at 11:00 Ondansetron HCl (Zofran Tab) 4 mg Q6H PRN PO NAUSEA AND/OR VOMITING Last administered on 11/22/16 08:46; Admin Dose 4 MG; Start 11/11/16 at 10:00 Salmeterol Xinafoate/ Fluticasone (Advair 250/50 Diskus) 1 inh BID INH Last administered on 12/14/16 09:23; Admin Dose 1 INH; Start 11/11/16 at 11:00 Albuterol (Ventolin Hfa) 2 puff Q4H PRN INH AOB Last administered on 12/11/16 16:14; Admin Dose 2 PUFF; Start 11/11/16 at 10:30 Epoetin Hang (Epogen (Esrd)) 10,000 units TuThSa@17 SC Last administered on 17:29; Admin Dose 10,000 UNITS; Start 11/11/16 at 17:00 Collagenase (Santyl) 1 applic DAILY TOP Last administered on 12/13/16 04:55; Admin Dose 1 APPLIC; Start 11/13/16 at 09:00 Diagnostic Test (Pha) (Accu-Chek) 1 ea 02 XX Last administered on 12/12/16 02: 00; Admin Dose 1 EA; Start 11/14/16 at 02:00 Nicotine (Nicoderm 21 Mg/ 24hr) 1 patch DAILY TRANSDERM Last administered on 09:22; Admin Dose 1 PATCH; Start 11/14/16 at 20:00 Docusate Sodium (Colace) 100 mg Q12H PO Last administered on 12/13/16 09:20; Admin Dose 100 MG; Start 11/16/16 at 22:00 Miscellaneous Information 1 ea NOTE XX ; Start 11/17/16 at 11:30 Glucose (Glutose) 15 gm Q15M PRN PO DECREASED GLUCOSE; Start 11/17/16 at 11:30 Glucose (Glutose) 22.5 gm Q15M PRN PO DECREASED GLUCOSE; Start 11/17/16 at 11:30 Dextrose (D50w Syringe) 25 ml Q15M PRN IV DECREASED GLUCOSE; Start 11/17/16 at 11:30 Dextrose (D50w Syringe) 50 ml Q15M PRN IV DECREASED GLUCOSE; Start 11/17/16 at 11:30 Glucagon (Glucagen) 1 mg Q15M PRN IM DECREASED GLUCOSE; Start 11/17/16 at 11:30 Glucose (Glutose) 15 gm Q15M PRN BUCCAL DECREASED GLUCOSE; Start 11/17/16 at 11: 30 Polyethylene Glycol (Miralax) 17 gm BID PO Last administered on 12/13/16 09:20 ; Admin Dose 17 GM; Start 11/17/16 at 12:00 Bisacodyl (Dulcolax) 10 mg DAILY PRN PO CONSTIPATION; Start 11/17/16 at 11:30 Diltiazem HCl (Cardizem Cd) 120 mg BID PO Last administered on 12/14/16 09:24; Admin Dose 120 MG; Start 11/19/16 at 21:00 Zolpidem Tartrate (Ambien) 5 mg HS PRN PO INSOMNIA Last administered on 23:23; Admin Dose 5 MG; Start 11/19/16 at 21:30 Lorazepam (Ativan) 1 mg Q6H PRN IV AGITATION/ANXIETY Last administered on 03:48; Admin Dose 1 MG; Start 11/21/16 at 21:15 Guaifenesin/ Codeine Phosphate (Robitussin Ac Liquid Cup) 5 ml Q4H PRN PO COUGH Last administered on 12/14/16 03:48; Admin Dose 5 ML; Start 11/21/16 at 21: 30 Pantoprazole (Protonix Iv) 40 mg BID@06,18 IV Last administered on 12/14/16 06: 41; Admin Dose 40 MG; Start 12/02/16 at 18:00 Sucralfate (Carafate) 1 gm QID PO Last administered on 12/14/16 12:41; Admin Dose 1 GM; Start 12/03/16 at 17:00 Insulin Detemir (Levemir) 30 unit QHS@20 SC Last administered on 12/13/16 20: 48; Admin Dose 30 UNIT; Start 12/12/16 at 20:00 Sodium Chloride (Deep Sea) 1 spray Q2H PRN NASAL NASAL CONGESTION Last administered on 12/13/16 04:56; Admin Dose 1 SPRAY; Start 12/12/16 at 21:30 Morphine Sulfate (morphine) 2 mg Q3H PRN IV for pain Last administered on 02:09; Admin Dose 2 MG; Start 12/13/16 at 14:30 Apixaban (Eliquis) 5 mg BID PO Last administered on 12/14/16 09:23; Admin Dose 5 MG; Start 12/13/16 at 21:00 STEFAN COMBS NP Dec 14, 2016 14:32
--- NOTE | 2016-12-14 14:40 | PN ---
Date/Time of Note Date/Time of Note DATE: 12/14/16 TIME: 14:38 Assessment/Plan VTE Prophylaxis VTE Prophylaxis Intervention: other Lines/Catheters IV Catheter Type (from Nrs): Saline Lock Urinary Cath still in place: No Assessment/Plan Chief Complaint/Hosp Course Patient is a 61-year-old female with past history of end-stage renal disease, diabetes, hypertension and obesity presents to [facility] 4 grown falls at home found to have ulcers and pneumonia. Assessment Debility Left lower extremity thigh area ulcer, with wound VAC GI bleed gastritis, erosive Diabetes type 2 End-stage renal disease, on dialysis Pneumonia Obesity Dyslipidemia Diabetic foot ulcers Bilateral lower extremity chronic venous stasis ulcers Chronic cellulitis Left hip wound Coronary artery disease Hypertension Atrial fibrillation Lower extremity edema Insomnia Plan -protonix bid per GI, EGD showed gastritis, GI okay to restart eliquis for a-fib , hgb lower than before, however has been some time before prior hbg, repeat h and h today stable, no signs of overt/acute bleed. continue eliquis for now, will monitor very closely. -Patient has multiple medical conditions, continue chronic care -Patient wound vac removed. ABX finished -consulted Dr. Forrester, general surgery for R hip wound. per Dr. Fuentes's recommendation. -continue home medications as able -Patient will likely need jail, pending placement at this time, disposition issue with placement. -As needed medications for pain -continue HD for ESRD. Stefan Munson DO Problems: Subjective 24 Hr Interval Summary Free Text/Dictation patient getting dialysis. no new complaints Exam/Review of Systems Vital Signs Vitals Vital Signs Date Time Temp Pulse Resp B/P Pulse Ox O2 Delivery O2 Flow Rate FiO2 12/14/16 11:55 Nasal Cannula 2.0 12/14/16 08:30 97.8 73 22 123/59 93 Intake and Output 12/13/16 12/13/16 12/14/16 15:00 23:00 07:00 Intake Total 820 ml 660 ml Balance 820 ml 660 ml Exam Physical exam General: Patient is laying in bed and answers questions appropriately Mentation: Patient is alert and oriented 4, Head: Normocephalic atraumatic Eyes: EOMI, pupils reactive to light Neck: Supple, nontender, midline Respiratory:mildly course to auscultation bilaterally Cardiovascular: regular rate, no obvious murmurs Gastrointestinal: non-tender to palpation, bowel sounds heard. Neurological: Moves all extremities spontaneously Skin: multiple skin lesions on body. L hip wound. multiple LE ulcerations. R hip wound. Results Result Diagram: 12/14/16 1201 12/14/16 0520 Results 24 hrs Laboratory Tests Test 12/13/16 17:32 12/13/16 20:40 12/14/16 05:20 12/14/16 09:13 Bedside Glucose 136 165 82 White Blood Count 8.6 # Red Blood Count 2.68 L Hemoglobin 7.4 L Hematocrit 25.2 L Mean Corpuscular Volume 94.0 Mean Corpuscular Hemoglobin 27.6 L Mean Corpuscular Hemoglobin Concent 29.4 L Red Cell Distribution Width 18.6 H Platelet Count 351 Mean Platelet Volume 9.3 Neutrophils % 60.2 Lymphocytes % 15.7 Monocytes % 15.2 H Eosinophils % 7.1 H Basophils % 1.0 Nucleated Red Blood Cells % 0.0 Neutrophils # 5.2 Lymphocytes # 1.4 Monocytes # 1.3 H Eosinophils # 0.6 H Basophils # 0.1 Nucleated Red Blood Cells # 0.0 Sodium Level 145 H Potassium Level 3.9 Chloride Level 102 Carbon Dioxide Level 30 Anion Gap 17 H Blood Urea Nitrogen 40 H Creatinine 4.11 H Glucose Level 98 Calcium Level 10.4 H Phosphorus Level 2.8 Magnesium Level 2.4 Test 12/14/16 12:01 12/14/16 12:10 Hemoglobin 7.5 L Hematocrit 25.2 L Bedside Glucose 98 Medications Medications Current Medications Amlodipine Besylate (Norvasc) 5 mg DAILY PO Last administered on 12/14/16 09:23 ; Admin Dose 5 MG; Start 11/11/16 at 09:30 Aspirin (Aspirin) 81 mg DAILY PO Last administered on 12/14/16 09:24; Admin Dose 81 MG; Start 11/11/16 at 09:30 Atorvastatin Calcium (Lipitor) 40 mg QHS PO Last administered on 12/13/16 20: 44; Admin Dose 40 MG; Start 11/11/16 at 21:00 Benzonatate (Tessalon) 100 mg Q6 PO Last administered on 12/14/16 06:41; Admin Dose 100 MG; Start 11/11/16 at 12:00 Carisoprodol (Soma) 350 mg Q8 PRN PO MUSCLE SPASMS Last administered on 09:36; Admin Dose 350 MG; Start 11/11/16 at 12:00 Cinacalcet (Sensipar) 30 mg DAILY PO Last administered on 12/14/16 09:22; Admin Dose 30 MG; Start 11/11/16 at 11:00 Furosemide (Lasix) 80 mg DAILY PO Last administered on 12/14/16 09:22; Admin Dose 80 MG; Start 11/11/16 at 09:30 Losartan Potassium (Cozaar) 50 mg BID PO Last administered on 12/14/16 09:23; Admin Dose 50 MG; Start 11/11/16 at 09:30 Metoprolol Succinate (Toprol Xl) 50 mg BID PO Last administered on 12/14/16 09: 24; Admin Dose 50 MG; Start 11/11/16 at 09:30 Montelukast Sodium (Singulair) 10 mg QAM PO Last administered on 12/14/16 09:23 ; Admin Dose 10 MG; Start 11/11/16 at 11:00 Oxycodone/ Acetaminophen (Endocet (10/ 325)) 1 tab Q6 PRN PO PRN Last administered on 12/07/16 21:51; Admin Dose 1 TAB; Start 11/11/16 at 12:00 Pyridoxine HCl (Vitamin B6) 50 mg DAILY PO Last administered on 12/14/16 09:23 ; Admin Dose 50 MG; Start 11/11/16 at 09:30 Tiotropium [place] (Spiriva) 1 inh DAILY INH Last administered on 12/14/16 09: 23; Admin Dose 1 INH; Start 11/11/16 at 11:00 Ondansetron HCl (Zofran Tab) 4 mg Q6H PRN PO NAUSEA AND/OR VOMITING Last administered on 11/22/16 08:46; Admin Dose 4 MG; Start 11/11/16 at 10:00 Salmeterol Xinafoate/ Fluticasone (Advair 250/50 Diskus) 1 inh BID INH Last administered on 12/14/16 09:23; Admin Dose 1 INH; Start 11/11/16 at 11:00 Albuterol (Ventolin Hfa) 2 puff Q4H PRN INH AOB Last administered on 12/11/16 16:14; Admin Dose 2 PUFF; Start 11/11/16 at 10:30 Epoetin Hang (Epogen (Esrd)) 10,000 units TuThSa@17 SC Last administered on 17:29; Admin Dose 10,000 UNITS; Start 11/11/16 at 17:00 Collagenase (Santyl) 1 applic DAILY TOP Last administered on 12/13/16 04:55; Admin Dose 1 APPLIC; Start 11/13/16 at 09:00 Diagnostic Test (Pha) (Accu-Chek) 1 ea 02 XX Last administered on 12/12/16 02: 00; Admin Dose 1 EA; Start 11/14/16 at 02:00 Nicotine (Nicoderm 21 Mg/ 24hr) 1 patch DAILY TRANSDERM Last administered on 09:22; Admin Dose 1 PATCH; Start 11/14/16 at 20:00 Docusate Sodium (Colace) 100 mg Q12H PO Last administered on 12/13/16 09:20; Admin Dose 100 MG; Start 11/16/16 at 22:00 Miscellaneous Information 1 ea NOTE XX ; Start 11/17/16 at 11:30 Glucose (Glutose) 15 gm Q15M PRN PO DECREASED GLUCOSE; Start 11/17/16 at 11:30 Glucose (Glutose) 22.5 gm Q15M PRN PO DECREASED GLUCOSE; Start 11/17/16 at 11:30 Dextrose (D50w Syringe) 25 ml Q15M PRN IV DECREASED GLUCOSE; Start 11/17/16 at 11:30 Dextrose (D50w Syringe) 50 ml Q15M PRN IV DECREASED GLUCOSE; Start 11/17/16 at 11:30 Glucagon (Glucagen) 1 mg Q15M PRN IM DECREASED GLUCOSE; Start 11/17/16 at 11:30 Glucose (Glutose) 15 gm Q15M PRN BUCCAL DECREASED GLUCOSE; Start 11/17/16 at 11: 30 Polyethylene Glycol (Miralax) 17 gm BID PO Last administered on 12/13/16 09:20 ; Admin Dose 17 GM; Start 11/17/16 at 12:00 Bisacodyl (Dulcolax) 10 mg DAILY PRN PO CONSTIPATION; Start 11/17/16 at 11:30 Diltiazem HCl (Cardizem Cd) 120 mg BID PO Last administered on 12/14/16 09:24; Admin Dose 120 MG; Start 11/19/16 at 21:00 Zolpidem Tartrate (Ambien) 5 mg HS PRN PO INSOMNIA Last administered on 23:23; Admin Dose 5 MG; Start 11/19/16 at 21:30 Lorazepam (Ativan) 1 mg Q6H PRN IV AGITATION/ANXIETY Last administered on 03:48; Admin Dose 1 MG; Start 11/21/16 at 21:15 Guaifenesin/ Codeine Phosphate (Robitussin Ac Liquid Cup) 5 ml Q4H PRN PO COUGH Last administered on 12/14/16 03:48; Admin Dose 5 ML; Start 11/21/16 at 21: 30 Pantoprazole (Protonix Iv) 40 mg BID@06,18 IV Last administered on 12/14/16 06: 41; Admin Dose 40 MG; Start 12/02/16 at 18:00 Sucralfate (Carafate) 1 gm QID PO Last administered on 12/14/16 12:41; Admin Dose 1 GM; Start 12/03/16 at 17:00 Insulin Detemir (Levemir) 30 unit QHS@20 SC Last administered on 12/13/16 20: 48; Admin Dose 30 UNIT; Start 12/12/16 at 20:00 Sodium Chloride (Deep Sea) 1 spray Q2H PRN NASAL NASAL CONGESTION Last administered on 12/13/16 04:56; Admin Dose 1 SPRAY; Start 12/12/16 at 21:30 Morphine Sulfate (morphine) 2 mg Q3H PRN IV for pain Last administered on 02:09; Admin Dose 2 MG; Start 12/13/16 at 14:30 Apixaban (Eliquis) 5 mg BID PO Last administered on 12/14/16 09:23; Admin Dose 5 MG; Start 12/13/16 at 21:00 STEFAN MUNSON Dec 14, 2016 14:40
[2016-12-14] MEDS: EPOETIN 10000 UNITS/1 ML INJ (ESRD) SC SCH (17:48)
[2016-12-14] MEDS: INSULIN DETEMIR [LEVEMIR] 3ML CART SC SCH (22:07)
[2016-12-14] MEDS: ATORVASTATIN 40 MG TAB PO SCH (23:18)
[2016-12-14] MEDS: ZOLPIDEM 5 MG TAB PO PRN (23:22)
--- NOTE | 2016-12-14 23:56 | CONS ---
Date/Time of Note Date/Time of Note DATE: 12/14/16 TIME: 23:24 Assessment/Plan Assessment/Plan Chief Complaint/Hosp Course 1. Bilateral upper thighs and right flank wounds: 2/2 pressure from immobility; atherosclerosis but with not flow limiting per vascular; left thigh s/p wound vac -debridements prn -local wound care -offloading and turning frequently -specialty mattress 2. PNA: -abx -pulmonary toilet 3. Venous stasis dermatitis 4. Diabetes -blood sugar optimization 5. Falls -PT -fall precautions 6. Morbidly Obese -diet and physical modification -7. ESRD with HD -per nephro 8. Normocytic anemia: no acute bleed noted -monitor 9. Esophagitis: no acute bleed -medical management 10. Hypercalcemia Patient seen and examined in collaboration with Dr. Kenney Forrester. Thank you. Problems: Consultation Date/Type/Reason Admit Date/Time Nov 11, 2016 at 06:40 Date of Consultation: Dec 14, 2016 Type of Consultation: surgical Reason for Consultation Right hip wound Hx of Present Illness Jaida Anthony is a 61 yo woman who is admitted to [facility] s/p multiple ground level falls. She was being treated for pneumonia and multiple ulcers. She has recently completed a 30 day course of antibiotics. She is without fevers, chills , chest pain, sob, palpitations, nausea, vomiting or diarrhea, drainage from right hip wounds. General surgery was called to consult and treat. Constitutional: improved, no complaints Eyes: no complaints ENT: no complaints Respiratory: no complaints Cardiovascular: no complaints Gastrointestinal: no complaints Genitourinary: no complaints Musculoskeletal: no complaints Psychological: no complaints Past Medical History 1. ESRD 2. bilateral lower extremity ulcers 3. gastritis 4. upper GI bleed 5. diabetes type 2 6. pneumonia 7. morbidly obese 8. dyslipidemia 9. bilateral lower extremity diabetic foot ulcers 10. atherosclerosis 11. venous insufficiency 12. venous stasis ulcers 13. bilateral chronic cellulitis 14. coronary artery disease 15. hypertension 16. atrial fibrillation 17. right thigh decubitus ulcer. Medical History: coronary artery disease, GI bleed, high cholesterol, hypertension Past Surgical History 1. Wound debridement 2. fistula creation 3.perm-catheter placement. Past Surgical Hx: other Family History Significant Family History: hypertension, other (CAD) Social History Alcohol Use: none Smoking Status: Former smoker Drug Use: none Exam/Review of Systems Vital Signs Vitals Vital Signs Date Time Temp Pulse Resp B/P Pulse Ox O2 Delivery O2 Flow Rate FiO2 12/14/16 20:53 98.2 90 20 115/87 97 12/14/16 11:55 Nasal Cannula 2.0 Intake and Output 12/13/16 12/13/16 12/14/16 14:59 22:59 06:59 Intake Total 820 ml 660 ml Balance 820 ml 660 ml Exam Constitutional: alert, oriented Psych: anxiety, No nl mood/affect Head: atraumatic, normocephalic Eyes: nl lids, nl sclera ENMT: No nl lips & teeth (missing teeth) Neck: non-tender, supple Respiratory: normal air movement Cardiovascular: regular rate and rhythm Gastrointestinal: non-tender, other (obese), soft Musculoskeletal: muscle weakness, No nl gait and stance Extremities: No edema, No normal pulses Neurological: nl speech, nl strength Skin: other (wounds: Right thigh/trochanter area with areas of necrosis, no drainage; left thigh: wound bed with slough, no drainage) Results Result Diagram: 12/14/16 1201 12/14/16 0520 Results 24 hrs Laboratory Tests Test 12/14/16 05:20 12/14/16 09:13 12/14/16 12:01 12/14/16 12:10 White Blood Count 8.6 # Red Blood Count 2.68 L Hemoglobin 7.4 L 7.5 L Hematocrit 25.2 L 25.2 L Mean Corpuscular Volume 94.0 Mean Corpuscular Hemoglobin 27.6 L Mean Corpuscular Hemoglobin Concent 29.4 L Red Cell Distribution Width 18.6 H Platelet Count 351 Mean Platelet Volume 9.3 Neutrophils % 60.2 Lymphocytes % 15.7 Monocytes % 15.2 H Eosinophils % 7.1 H Basophils % 1.0 Nucleated Red Blood Cells % 0.0 Neutrophils # 5.2 Lymphocytes # 1.4 Monocytes # 1.3 H Eosinophils # 0.6 H Basophils # 0.1 Nucleated Red Blood Cells # 0.0 Sodium Level 145 H Potassium Level 3.9 Chloride Level 102 Carbon Dioxide Level 30 Anion Gap 17 H Blood Urea Nitrogen 40 H Creatinine 4.11 H Glucose Level 98 Calcium Level 10.4 H Phosphorus Level 2.8 Magnesium Level 2.4 Bedside Glucose 82 98 Test 12/14/16 17:47 12/14/16 22:05 Bedside Glucose 126 137 Medications Medications Current Medications Amlodipine Besylate (Norvasc) 5 mg DAILY PO Last administered on 12/14/16 09:23 ; Admin Dose 5 MG; Start 11/11/16 at 09:30 Aspirin (Aspirin) 81 mg DAILY PO Last administered on 12/14/16 09:24; Admin Dose 81 MG; Start 11/11/16 at 09:30 Atorvastatin Calcium (Lipitor) 40 mg QHS PO Last administered on 12/13/16 20: 44; Admin Dose 40 MG; Start 11/11/16 at 21:00 Benzonatate (Tessalon) 100 mg Q6 PO Last administered on 12/14/16 17:48; Admin Dose 100 MG; Start 11/11/16 at 12:00 Carisoprodol (Soma) 350 mg Q8 PRN PO MUSCLE SPASMS Last administered on 09:36; Admin Dose 350 MG; Start 11/11/16 at 12:00 Cinacalcet (Sensipar) 30 mg DAILY PO Last administered on 12/14/16 09:22; Admin Dose 30 MG; Start 11/11/16 at 11:00 Furosemide (Lasix) 80 mg DAILY PO Last administered on 12/14/16 09:22; Admin Dose 80 MG; Start 11/11/16 at 09:30 Losartan Potassium (Cozaar) 50 mg BID PO Last administered on 12/14/16 09:23; Admin Dose 50 MG; Start 11/11/16 at 09:30 Metoprolol Succinate (Toprol Xl) 50 mg BID PO Last administered on 12/14/16 09: 24; Admin Dose 50 MG; Start 11/11/16 at 09:30 Montelukast Sodium (Singulair) 10 mg QAM PO Last administered on 12/14/16 09:23 ; Admin Dose 10 MG; Start 11/11/16 at 11:00 Oxycodone/ Acetaminophen (Endocet (10/ 325)) 1 tab Q6 PRN PO PRN Last administered on 12/07/16 21:51; Admin Dose 1 TAB; Start 11/11/16 at 12:00 Pyridoxine HCl (Vitamin B6) 50 mg DAILY PO Last administered on 12/14/16 09:23 ; Admin Dose 50 MG; Start 11/11/16 at 09:30 Tiotropium [place] (Spiriva) 1 inh DAILY INH Last administered on 12/14/16 09: 23; Admin Dose 1 INH; Start 11/11/16 at 11:00 Ondansetron HCl (Zofran Tab) 4 mg Q6H PRN PO NAUSEA AND/OR VOMITING Last administered on 11/22/16 08:46; Admin Dose 4 MG; Start 11/11/16 at 10:00 Salmeterol Xinafoate/ Fluticasone (Advair 250/50 Diskus) 1 inh BID INH Last administered on 12/14/16 22:01; Admin Dose 1 INH; Start 11/11/16 at 11:00 Albuterol (Ventolin Hfa) 2 puff Q4H PRN INH AOB Last administered on 12/11/16 16:14; Admin Dose 2 PUFF; Start 11/11/16 at 10:30 Epoetin Hang (Epogen (Esrd)) 10,000 units TuThSa@17 SC Last administered on 12/14 17:48; Admin Dose 10,000 UNITS; Start 11/11/16 at 17:00 Collagenase (Santyl) 1 applic DAILY TOP Last administered on 12/13/16 04:55; Admin Dose 1 APPLIC; Start 11/13/16 at 09:00 Diagnostic Test (Pha) (Accu-Chek) 1 ea 02 XX Last administered on 12/12/16 02: 00; Admin Dose 1 EA; Start 11/14/16 at 02:00 Nicotine (Nicoderm 21 Mg/ 24hr) 1 patch DAILY TRANSDERM Last administered on 09:22; Admin Dose 1 PATCH; Start 11/14/16 at 20:00 Docusate Sodium (Colace) 100 mg Q12H PO Last administered on 12/14/16 22:00; Admin Dose 100 MG; Start 11/16/16 at 22:00 Miscellaneous Information 1 ea NOTE XX ; Start 11/17/16 at 11:30 Glucose (Glutose) 15 gm Q15M PRN PO DECREASED GLUCOSE; Start 11/17/16 at 11:30 Glucose (Glutose) 22.5 gm Q15M PRN PO DECREASED GLUCOSE; Start 11/17/16 at 11:30 Dextrose (D50w Syringe) 25 ml Q15M PRN IV DECREASED GLUCOSE; Start 11/17/16 at 11:30 Dextrose (D50w Syringe) 50 ml Q15M PRN IV DECREASED GLUCOSE; Start 11/17/16 at 11:30 Glucagon (Glucagen) 1 mg Q15M PRN IM DECREASED GLUCOSE; Start 11/17/16 at 11:30 Glucose (Glutose) 15 gm Q15M PRN BUCCAL DECREASED GLUCOSE; Start 11/17/16 at 11: 30 Polyethylene Glycol (Miralax) 17 gm BID PO Last administered on 12/13/16 09:20 ; Admin Dose 17 GM; Start 11/17/16 at 12:00 Bisacodyl (Dulcolax) 10 mg DAILY PRN PO CONSTIPATION; Start 11/17/16 at 11:30 Diltiazem HCl (Cardizem Cd) 120 mg BID PO Last administered on 12/14/16 09:24; Admin Dose 120 MG; Start 11/19/16 at 21:00 Zolpidem Tartrate (Ambien) 5 mg HS PRN PO INSOMNIA Last administered on 23:23; Admin Dose 5 MG; Start 11/19/16 at 21:30 Lorazepam (Ativan) 1 mg Q6H PRN IV AGITATION/ANXIETY Last administered on 03:48; Admin Dose 1 MG; Start 11/21/16 at 21:15 Guaifenesin/ Codeine Phosphate (Robitussin Ac Liquid Cup) 5 ml Q4H PRN PO COUGH Last administered on 12/14/16 03:48; Admin Dose 5 ML; Start 11/21/16 at 21: 30 Pantoprazole (Protonix Iv) 40 mg BID@06,18 IV Last administered on 12/14/16 17: 47; Admin Dose 40 MG; Start 12/02/16 at 18:00 Sucralfate (Carafate) 1 gm QID PO Last administered on 12/14/16 17:48; Admin Dose 1 GM; Start 12/03/16 at 17:00 Insulin Detemir (Levemir) 30 unit QHS@20 SC Last administered on 12/14/16 22:07 ; Admin Dose 30 UNIT; Start 12/12/16 at 20:00 Sodium Chloride (Deep Sea) 1 spray Q2H PRN NASAL NASAL CONGESTION Last administered on 12/13/16 04:56; Admin Dose 1 SPRAY; Start 12/12/16 at 21:30 Morphine Sulfate (morphine) 2 mg Q3H PRN IV for pain Last administered on 02:09; Admin Dose 2 MG; Start 12/13/16 at 14:30 Apixaban (Eliquis) 5 mg BID PO Last administered on 12/14/16 09:23; Admin Dose 5 MG; Start 12/13/16 at 21:00 JUSTIN FOX NP Dec 14, 2016 23:34
[2016-12-15] MEDS: LORAZEPAM 2 MG INJ IV PRN ×2 (00:38→23:05)
[2016-12-15] MEDS: morphine 4 MG/ML VIAL IV PRN ×3 (01:50→18:48)
[2016-12-15] MEDS: ACCU-CHEK XX SCH (01:55)
[2016-12-15 02:55] VITALS: BP 121/58; RESP 18
[2016-12-15] MEDS: OXYCODONE/ACETAMINOPHEN (10/325) TAB PO PRN (03:54)
[2016-12-15] MEDS: CARISOPRODOL 350 MG TAB PO PRN (03:54)
[2016-12-15] MEDS: PANTOPRAZOLE 40 MG INJ IV SCH ×2 (05:18→17:31)
[2016-12-15] MEDS: BENZONATATE 100 MG CAP PO SCH ×3 (05:18→17:29)
[2016-12-15 05:52] LABS: BASOPHIL # 0.1 10^3/ul (0.0-0.1); EOSINOPHILS # 0.6 10^3/ul (0.0-0.5); EOSINOPHILS % 7.4 % (0.0-7.0); HEMATOCRIT 23.8 % (37.0-47.0); HEMOGLOBIN 7.1 g/dl (12.0-16.0); LYMPHOCYTES # 1.2 10^3/ul (0.8-2.9); MEAN CORPUSCULAR HEMOGLOBIN 28.1 pg (29.0-33.0); MEAN CORPUSCULAR HGB CONC 29.8 g/dl (32.0-37.0); MEAN CORPUSCULAR VOLUME 94.1 fl (82.0-101.0); MEAN PLATELET VOLUME 9.8 fl (7.4-10.4); MONOCYTE # 1.1 10^3/ul (0.3-0.9); MONOCYTES % 14.2 % (0.0-11.0); NEUTROPHIL # 4.7 10^3/ul (1.6-7.5); NEUTROPHILS % 60.6 % (39.0-77.0); PLATELET COUNT 371 10^3/UL (140-415); RED BLOOD COUNT 2.53 10^6/ul (4.20-5.40); RED CELL DISTRIBUTION WIDTH 18.6 % (11.5-14.5); WHITE BLOOD COUNT 7.8 10^3/ul (4.8-10.8)
[2016-12-15] MEDS: METOCLOPRAMIDE 5 MG TAB PO SCH ×3 (06:07→17:29)
[2016-12-15 06:23] LABS: CALCIUM 10.1 mg/dl (8.4-10.2); CREATININE 3.51 mg/dl (0.44-1.00); MAGNESIUM 2.3 mg/dl (1.7-2.5); PHOSPHORUS 2.4 mg/dl (2.5-4.9); POTASSIUM 3.6 mmol/L (3.5-5.1)
[2016-12-15] MEDS: INSULIN ASPART [NOVOLOG] 3 ML PEN SC SCH ×4 (07:57→21:00)
[2016-12-15 08:07] VITALS: BP 125/59; RESP 17
[2016-12-15] MEDS: CALCIUM ACETATE 667 MG CAP PO SCH ×3 (08:43→17:29)
[2016-12-15] MEDS: SALMETEROL/FLUTICASONE 250/50 INHA INH SCH ×2 (08:43→23:15)
[2016-12-15] MEDS: NICOTINE (21 MG/24 HR) PATCH TRANSDERM SCH (08:43)
[2016-12-15] MEDS: TIOTROPIUM 18 MCG CAPSULE INHA DEV INH SCH (08:44)
[2016-12-15] MEDS: CINACALCET 30 MG TAB PO SCH (08:45)
[2016-12-15] MEDS: ASPIRIN 81 MG TAB PO SCH (08:45)
[2016-12-15] MEDS: MONTELUKAST 10 MG TAB PO SCH (08:45)
[2016-12-15] MEDS: APIXABAN 5 MG TABLET PO SCH ×2 (08:45→23:14)
[2016-12-15] MEDS: SUCRALFATE 1 GM TAB PO SCH ×4 (08:46→23:14)
[2016-12-15] MEDS: DILTIAZEM (CD) 120 MG CAP PO SCH ×2 (08:48→23:59)
[2016-12-15] MEDS: PYRIDOXINE 50 MG TAB PO SCH (08:49)
[2016-12-15] MEDS: METOPROLOL (XL) 50 MG TAB PO SCH ×2 (08:50→23:59)
[2016-12-15] MEDS: LOSARTAN 50 MG TAB PO SCH (08:50)
[2016-12-15] MEDS: FUROSEMIDE 40 MG TAB PO SCH (08:50)
[2016-12-15] MEDS: AMLODIPINE 5 MG TAB PO SCH (08:51)
[2016-12-15] MEDS: POLYETHYLENE GLYCOL 17 GM PACKET PO SCH ×2 (08:57→21:00)
[2016-12-15] MEDS: COLLAGENASE 30 GM TUBE TOP SCH ×2 (09:25→16:53)
[2016-12-15 14:36] VITALS: BP 121/66; RESP 88
--- NOTE | 2016-12-15 15:11 | PN ---
Date/Time of Note Date/Time of Note DATE: 12/15/16 TIME: 15:10 Assessment/Plan VTE Prophylaxis VTE Prophylaxis Intervention: other Lines/Catheters IV Catheter Type (from Nrs): Saline Lock Urinary Cath still in place: No Assessment/Plan Chief Complaint/Hosp Course Patient is a 61-year-old female with past history of end-stage renal disease, diabetes, hypertension and obesity presents to [facility] 4 grown falls at home found to have ulcers and pneumonia. Assessment Debility Left lower extremity thigh area ulcer, with wound VAC GI bleed gastritis, erosive Diabetes type 2 End-stage renal disease, on dialysis Pneumonia Obesity Dyslipidemia Diabetic foot ulcers Bilateral lower extremity chronic venous stasis ulcers Chronic cellulitis Left hip wound Coronary artery disease Hypertension Atrial fibrillation Lower extremity edema Insomnia Plan -protonix bid per GI, EGD showed gastritis, GI okay to restart eliquis for a-fib , hgb lower than before, however has been some time before prior hbg, repeat h and h today stable, no signs of overt/acute bleed. continue eliquis for now, will monitor very closely. -Patient has multiple medical conditions, continue chronic care -Patient wound vac removed. ABX finished -consulted Dr. Forrester, general surgery for R hip wound. per Dr. Fuentes's recommendation. Will manage as needed. -continue home medications as able -Patient will likely need intermediate, pending placement at this time, disposition issue with placement. -As needed medications for pain -continue HD for ESRD. Stefan Munson DO Problems: Subjective 24 Hr Interval Summary Free Text/Dictation patient has lucid moments, but also tends to forget things said to her. Exam/Review of Systems Vital Signs Vitals Vital Signs Date Time Temp Pulse Resp B/P Pulse Ox O2 Delivery O2 Flow Rate FiO2 12/15/16 14:36 98.1 85 88 121/66 94 12/15/16 09:00 Nasal Cannula 2.0 Intake and Output 12/14/16 12/14/16 12/15/16 15:00 23:00 07:00 Intake Total 1360 ml 720 ml Output Total 3500 ml Balance -2140 ml 720 ml Exam Physical exam General: Patient is laying in bed and answers questions appropriately Mentation: Patient is alert and oriented 4, Head: Normocephalic atraumatic Eyes: EOMI, pupils reactive to light Neck: Supple, nontender, midline Respiratory:mildly course to auscultation bilaterally Cardiovascular: regular rate, no obvious murmurs Gastrointestinal: non-tender to palpation, bowel sounds heard. Neurological: Moves all extremities spontaneously Skin: multiple skin lesions on body. L hip wound. multiple LE ulcerations. R hip wound. Results Result Diagram: 12/15/16 0507 12/15/16 0507 Results 24 hrs Laboratory Tests Test 12/14/16 17:47 12/14/16 22:05 12/15/16 05:07 12/15/16 07:53 Bedside Glucose 126 137 112 White Blood Count 7.8 Red Blood Count 2.53 L Hemoglobin 7.1 L Hematocrit 23.8 L Mean Corpuscular Volume 94.1 Mean Corpuscular Hemoglobin 28.1 L Mean Corpuscular Hemoglobin Concent 29.8 L Red Cell Distribution Width 18.6 H Platelet Count 371 Mean Platelet Volume 9.8 Neutrophils % 60.6 Lymphocytes % 16.0 Monocytes % 14.2 H Eosinophils % 7.4 H Basophils % 1.0 Nucleated Red Blood Cells % 0.0 Neutrophils # 4.7 Lymphocytes # 1.2 Monocytes # 1.1 H Eosinophils # 0.6 H Basophils # 0.1 Nucleated Red Blood Cells # 0.0 Sodium Level 145 H Potassium Level 3.6 Chloride Level 101 Carbon Dioxide Level 31 Anion Gap 17 H Blood Urea Nitrogen 34 H Creatinine 3.51 H Glucose Level 135 Calcium Level 10.1 Phosphorus Level 2.4 L Magnesium Level 2.3 Test 12/15/16 12:03 Bedside Glucose 112 Medications Medications Current Medications Amlodipine Besylate (Norvasc) 5 mg DAILY PO Last administered on 12/15/16 08:51 ; Admin Dose 5 MG; Start 11/11/16 at 09:30 Aspirin (Aspirin) 81 mg DAILY PO Last administered on 12/15/16 08:45; Admin Dose 81 MG; Start 11/11/16 at 09:30 Atorvastatin Calcium (Lipitor) 40 mg QHS PO Last administered on 12/14/16 23:18 ; Admin Dose 40 MG; Start 11/11/16 at 21:00 Benzonatate (Tessalon) 100 mg Q6 PO Last administered on 12/15/16 12:28; Admin Dose 100 MG; Start 11/11/16 at 12:00 Carisoprodol (Soma) 350 mg Q8 PRN PO MUSCLE SPASMS Last administered on 03:54; Admin Dose 350 MG; Start 11/11/16 at 12:00 Cinacalcet (Sensipar) 30 mg DAILY PO Last administered on 12/15/16 08:45; Admin Dose 30 MG; Start 11/11/16 at 11:00 Furosemide (Lasix) 80 mg DAILY PO Last administered on 12/15/16 08:50; Admin Dose 80 MG; Start 11/11/16 at 09:30 Losartan Potassium (Cozaar) 50 mg BID PO Last administered on 12/15/16 08:50; Admin Dose 50 MG; Start 11/11/16 at 09:30 Metoprolol Succinate (Toprol Xl) 50 mg BID PO Last administered on 12/15/16 08: 50; Admin Dose 50 MG; Start 11/11/16 at 09:30 Montelukast Sodium (Singulair) 10 mg QAM PO Last administered on 12/15/16 08:45 ; Admin Dose 10 MG; Start 11/11/16 at 11:00 Oxycodone/ Acetaminophen (Endocet (10/ 325)) 1 tab Q6 PRN PO PRN Last administered on 12/15/16 03:54; Admin Dose 1 TAB; Start 11/11/16 at 12:00 Pyridoxine HCl (Vitamin B6) 50 mg DAILY PO Last administered on 12/15/16 08:49 ; Admin Dose 50 MG; Start 11/11/16 at 09:30 Tiotropium [place] (Spiriva) 1 inh DAILY INH Last administered on 12/15/16 08: 44; Admin Dose 1 INH; Start 11/11/16 at 11:00 Ondansetron HCl (Zofran Tab) 4 mg Q6H PRN PO NAUSEA AND/OR VOMITING Last administered on 11/22/16 08:46; Admin Dose 4 MG; Start 11/11/16 at 10:00 Salmeterol Xinafoate/ Fluticasone (Advair 250/50 Diskus) 1 inh BID INH Last administered on 12/15/16 08:43; Admin Dose 1 INH; Start 11/11/16 at 11:00 Albuterol (Ventolin Hfa) 2 puff Q4H PRN INH AOB Last administered on 12/11/16 16:14; Admin Dose 2 PUFF; Start 11/11/16 at 10:30 Epoetin Hang (Epogen (Esrd)) 10,000 units TuThSa@17 SC Last administered on 12/14 17:48; Admin Dose 10,000 UNITS; Start 11/11/16 at 17:00 Collagenase (Santyl) 1 applic DAILY TOP Last administered on 12/15/16 09:25; Admin Dose 1 APPLIC; Start 11/13/16 at 09:00 Diagnostic Test (Pha) (Accu-Chek) 1 ea 02 XX Last administered on 12/12/16 02: 00; Admin Dose 1 EA; Start 11/14/16 at 02:00 Nicotine (Nicoderm 21 Mg/ 24hr) 1 patch DAILY TRANSDERM Last administered on 08:43; Admin Dose 1 PATCH; Start 11/14/16 at 20:00 Docusate Sodium (Colace) 100 mg Q12H PO Last administered on 12/14/16 23:18; Admin Dose 100 MG; Start 11/16/16 at 22:00 Miscellaneous Information 1 ea NOTE XX ; Start 11/17/16 at 11:30 Glucose (Glutose) 15 gm Q15M PRN PO DECREASED GLUCOSE; Start 11/17/16 at 11:30 Glucose (Glutose) 22.5 gm Q15M PRN PO DECREASED GLUCOSE; Start 11/17/16 at 11:30 Dextrose (D50w Syringe) 25 ml Q15M PRN IV DECREASED GLUCOSE; Start 11/17/16 at 11:30 Dextrose (D50w Syringe) 50 ml Q15M PRN IV DECREASED GLUCOSE; Start 11/17/16 at 11:30 Glucagon (Glucagen) 1 mg Q15M PRN IM DECREASED GLUCOSE; Start 11/17/16 at 11:30 Glucose (Glutose) 15 gm Q15M PRN BUCCAL DECREASED GLUCOSE; Start 11/17/16 at 11: 30 Polyethylene Glycol (Miralax) 17 gm BID PO Last administered on 12/13/16 09:20 ; Admin Dose 17 GM; Start 11/17/16 at 12:00 Bisacodyl (Dulcolax) 10 mg DAILY PRN PO CONSTIPATION; Start 11/17/16 at 11:30 Diltiazem HCl (Cardizem Cd) 120 mg BID PO Last administered on 12/15/16 08:48; Admin Dose 120 MG; Start 11/19/16 at 21:00 Zolpidem Tartrate (Ambien) 5 mg HS PRN PO INSOMNIA Last administered on 23:22; Admin Dose 5 MG; Start 11/19/16 at 21:30 Lorazepam (Ativan) 1 mg Q6H PRN IV AGITATION/ANXIETY Last administered on 00:38; Admin Dose 1 MG; Start 11/21/16 at 21:15 Guaifenesin/ Codeine Phosphate (Robitussin Ac Liquid Cup) 5 ml Q4H PRN PO COUGH Last administered on 12/14/16 03:48; Admin Dose 5 ML; Start 11/21/16 at 21: 30 Pantoprazole (Protonix Iv) 40 mg BID@06,18 IV Last administered on 12/15/16 05: 18; Admin Dose 40 MG; Start 12/02/16 at 18:00 Sucralfate (Carafate) 1 gm QID PO Last administered on 12/15/16 12:28; Admin Dose 1 GM; Start 12/03/16 at 17:00 Insulin Detemir (Levemir) 30 unit QHS@20 SC Last administered on 12/14/16 22:07 ; Admin Dose 30 UNIT; Start 12/12/16 at 20:00 Sodium Chloride ([place]) 1 spray Q2H PRN NASAL NASAL CONGESTION Last administered on 12/13/16 04:56; Admin Dose 1 SPRAY; Start 12/12/16 at 21:30 Morphine Sulfate (morphine) 2 mg Q3H PRN IV for pain Last administered on 12:28; Admin Dose 2 MG; Start 12/13/16 at 14:30 Apixaban (Eliquis) 5 mg BID PO Last administered on 12/15/16 08:45; Admin Dose 5 MG; Start 12/13/16 at 21:00 STEFAN MUNSON Dec 15, 2016 15:11
--- NOTE | 2016-12-15 16:47 | CONS ---
Date/Time of Note Date/Time of Note DATE: 12/15/16 TIME: 16:46 Assessment/Plan Assessment/Plan Chief Complaint/Hosp Course ID PROGRESS NOTE ABX DAY => OFF ABX DAY #4 S/P TOTAL ABX DAYS #30 s/p ABX from 11/11/16 - 12/11/16 s/p Vancomycin IV s/p Meropenem + others 24H INTERVAL SUMMARY * No new issues, stable OFF ABX, no fevers, WBC normalized PHYSICAL EXAMINATION: GENERAL: VSS, NAD, no fever, obese F HEENT: Unremarkable NECK: Trach midline CHEST: Equal chest rise bilaterally, without dyspnea on observation HEART: Pulse RRR ABDOMEN: Soft, left flank pain EXTREMITIES: Warm SKIN: Warm, dry, edema BLEXT w/wound vac ID ASSESSMENT: 61 yo super morbid obese F admitted with: 1. Acute encephalopathy, likely toxic metabolic => RESOLVED * Suspect underlying Psych DX NOS 2. Bilateral lower extremities chronic venous stasis with chronic cellulitis and left hip wound, s/p debridement and wound vac application 10/19/16. 3. End-stage renal disease, on hemodialysis. * Left upper extremity AV fistula 4. Healthcare associated pneumonia, possibly aspiration = Clinically improved - Completed lengthy course IV ABX 5. Atrial fibrillation. 6. COPD - stable 7. Diabetes 8. Hx of falls -> limited mobility due to super morbid obesity 9. Anemia-> managed by primary ABX ALLERGIES: PCN, CIPRO CURRENT ABX: => OFF ABX DAY #4 S/P TOTAL ABX DAYS #30 s/p ABX from 11/11/16 - 12/11/16 s/p Vancomycin IV s/p Meropenem + others ID RECOMMENDATIONS: 1. Patient has completed 30 days of IV ABX for PNA and wounds -> She is OFF ABX and stable DAY #4 * ==>Clinically status quo -- No fevers, VSS, WBC normal == stable OFF ABX 96 Hours 2. Monitor her OFF ABX at this time w/PRN repeat MICRO Cx for TEMP >101.5 and/ or other clinical indicators 3. Continue local wound care 4. May DC or TNS OFF ABX as long as she remains afebrile; no indication for isolation as wounds have been treated . Problems: Consultation Date/Type/Reason Admit Date/Time Nov 11, 2016 at 06:40 Initial Consult Date 11/12/16 Type of Consultation: ID Referring Provider: ERICK MATOS Exam/Review of Systems Vital Signs Vitals Vital Signs Date Time Temp Pulse Resp B/P Pulse Ox O2 Delivery O2 Flow Rate FiO2 12/15/16 14:36 98.1 85 88 121/66 94 12/15/16 09:00 Nasal Cannula 2.0 Intake and Output 12/14/16 12/14/16 12/15/16 15:00 23:00 07:00 Intake Total 1360 ml 720 ml Output Total 3500 ml Balance -2140 ml 720 ml Results Result Diagram: 12/15/16 0507 12/15/16 0507 Results 24 hrs Laboratory Tests Test 12/14/16 17:47 12/14/16 22:05 12/15/16 05:07 12/15/16 07:53 Bedside Glucose 126 137 112 White Blood Count 7.8 Red Blood Count 2.53 L Hemoglobin 7.1 L Hematocrit 23.8 L Mean Corpuscular Volume 94.1 Mean Corpuscular Hemoglobin 28.1 L Mean Corpuscular Hemoglobin Concent 29.8 L Red Cell Distribution Width 18.6 H Platelet Count 371 Mean Platelet Volume 9.8 Neutrophils % 60.6 Lymphocytes % 16.0 Monocytes % 14.2 H Eosinophils % 7.4 H Basophils % 1.0 Nucleated Red Blood Cells % 0.0 Neutrophils # 4.7 Lymphocytes # 1.2 Monocytes # 1.1 H Eosinophils # 0.6 H Basophils # 0.1 Nucleated Red Blood Cells # 0.0 Sodium Level 145 H Potassium Level 3.6 Chloride Level 101 Carbon Dioxide Level 31 Anion Gap 17 H Blood Urea Nitrogen 34 H Creatinine 3.51 H Glucose Level 135 Calcium Level 10.1 Phosphorus Level 2.4 L Magnesium Level 2.3 Test 12/15/16 12:03 Bedside Glucose 112 Medications Medications Current Medications Amlodipine Besylate (Norvasc) 5 mg DAILY PO Last administered on 12/15/16 08:51 ; Admin Dose 5 MG; Start 11/11/16 at 09:30 Aspirin (Aspirin) 81 mg DAILY PO Last administered on 12/15/16 08:45; Admin Dose 81 MG; Start 11/11/16 at 09:30 Atorvastatin Calcium (Lipitor) 40 mg QHS PO Last administered on 12/14/16 23:18 ; Admin Dose 40 MG; Start 11/11/16 at 21:00 Benzonatate (Tessalon) 100 mg Q6 PO Last administered on 12/15/16 12:28; Admin Dose 100 MG; Start 11/11/16 at 12:00 Carisoprodol (Soma) 350 mg Q8 PRN PO MUSCLE SPASMS Last administered on 03:54; Admin Dose 350 MG; Start 11/11/16 at 12:00 Cinacalcet (Sensipar) 30 mg DAILY PO Last administered on 12/15/16 08:45; Admin Dose 30 MG; Start 11/11/16 at 11:00 Furosemide (Lasix) 80 mg DAILY PO Last administered on 12/15/16 08:50; Admin Dose 80 MG; Start 11/11/16 at 09:30 Losartan Potassium (Cozaar) 50 mg BID PO Last administered on 12/15/16 08:50; Admin Dose 50 MG; Start 11/11/16 at 09:30 Metoprolol Succinate (Toprol Xl) 50 mg BID PO Last administered on 12/15/16 08: 50; Admin Dose 50 MG; Start 11/11/16 at 09:30 Montelukast Sodium (Singulair) 10 mg QAM PO Last administered on 12/15/16 08:45 ; Admin Dose 10 MG; Start 11/11/16 at 11:00 Oxycodone/ Acetaminophen (Endocet (10/ 325)) 1 tab Q6 PRN PO PRN Last administered on 12/15/16 03:54; Admin Dose 1 TAB; Start 11/11/16 at 12:00 Pyridoxine HCl (Vitamin B6) 50 mg DAILY PO Last administered on 12/15/16 08:49 ; Admin Dose 50 MG; Start 11/11/16 at 09:30 Tiotropium [place] (Spiriva) 1 inh DAILY INH Last administered on 12/15/16 08: 44; Admin Dose 1 INH; Start 11/11/16 at 11:00 Ondansetron HCl (Zofran Tab) 4 mg Q6H PRN PO NAUSEA AND/OR VOMITING Last administered on 11/22/16 08:46; Admin Dose 4 MG; Start 11/11/16 at 10:00 Salmeterol Xinafoate/ Fluticasone (Advair 250/50 Diskus) 1 inh BID INH Last administered on 12/15/16 08:43; Admin Dose 1 INH; Start 11/11/16 at 11:00 Albuterol (Ventolin Hfa) 2 puff Q4H PRN INH AOB Last administered on 12/11/16 16:14; Admin Dose 2 PUFF; Start 11/11/16 at 10:30 Epoetin Hang (Epogen (Esrd)) 10,000 units TuThSa@17 SC Last administered on 12/14 17:48; Admin Dose 10,000 UNITS; Start 11/11/16 at 17:00 Collagenase (Santyl) 1 applic DAILY TOP Last administered on 12/15/16 09:25; Admin Dose 1 APPLIC; Start 11/13/16 at 09:00 Diagnostic Test (Pha) (Accu-Chek) 1 ea 02 XX Last administered on 12/12/16 02: 00; Admin Dose 1 EA; Start 11/14/16 at 02:00 Nicotine (Nicoderm 21 Mg/ 24hr) 1 patch DAILY TRANSDERM Last administered on 08:43; Admin Dose 1 PATCH; Start 11/14/16 at 20:00 Docusate Sodium (Colace) 100 mg Q12H PO Last administered on 12/14/16 23:18; Admin Dose 100 MG; Start 11/16/16 at 22:00 Miscellaneous Information 1 ea NOTE XX ; Start 11/17/16 at 11:30 Glucose (Glutose) 15 gm Q15M PRN PO DECREASED GLUCOSE; Start 11/17/16 at 11:30 Glucose (Glutose) 22.5 gm Q15M PRN PO DECREASED GLUCOSE; Start 11/17/16 at 11:30 Dextrose (D50w Syringe) 25 ml Q15M PRN IV DECREASED GLUCOSE; Start 11/17/16 at 11:30 Dextrose (D50w Syringe) 50 ml Q15M PRN IV DECREASED GLUCOSE; Start 11/17/16 at 11:30 Glucagon (Glucagen) 1 mg Q15M PRN IM DECREASED GLUCOSE; Start 11/17/16 at 11:30 Glucose (Glutose) 15 gm Q15M PRN BUCCAL DECREASED GLUCOSE; Start 11/17/16 at 11: 30 Polyethylene Glycol (Miralax) 17 gm BID PO Last administered on 12/13/16 09:20 ; Admin Dose 17 GM; Start 11/17/16 at 12:00 Bisacodyl (Dulcolax) 10 mg DAILY PRN PO CONSTIPATION; Start 11/17/16 at 11:30 Diltiazem HCl (Cardizem Cd) 120 mg BID PO Last administered on 12/15/16 08:48; Admin Dose 120 MG; Start 11/19/16 at 21:00 Zolpidem Tartrate (Ambien) 5 mg HS PRN PO INSOMNIA Last administered on 23:22; Admin Dose 5 MG; Start 11/19/16 at 21:30 Lorazepam (Ativan) 1 mg Q6H PRN IV AGITATION/ANXIETY Last administered on 00:38; Admin Dose 1 MG; Start 11/21/16 at 21:15 Guaifenesin/ Codeine Phosphate (Robitussin Ac Liquid Cup) 5 ml Q4H PRN PO COUGH Last administered on 12/14/16 03:48; Admin Dose 5 ML; Start 11/21/16 at 21: 30 Pantoprazole (Protonix Iv) 40 mg BID@06,18 IV Last administered on 12/15/16 05: 18; Admin Dose 40 MG; Start 12/02/16 at 18:00 Sucralfate (Carafate) 1 gm QID PO Last administered on 12/15/16 12:28; Admin Dose 1 GM; Start 12/03/16 at 17:00 Insulin Detemir (Levemir) 30 unit QHS@20 SC Last administered on 12/14/16 22:07 ; Admin Dose 30 UNIT; Start 12/12/16 at 20:00 Sodium Chloride (Deep Sea) 1 spray Q2H PRN NASAL NASAL CONGESTION Last administered on 12/13/16 04:56; Admin Dose 1 SPRAY; Start 12/12/16 at 21:30 Morphine Sulfate (morphine) 2 mg Q3H PRN IV for pain Last administered on 12:28; Admin Dose 2 MG; Start 12/13/16 at 14:30 Apixaban (Eliquis) 5 mg BID PO Last administered on 12/15/16 08:45; Admin Dose 5 MG; Start 12/13/16 at 21:00 STEFAN COMBS NP Dec 15, 2016 16:47
--- NOTE | 2016-12-15 17:57 | PN ---
Date/Time of Note Date/Time of Note DATE: 12/15/16 TIME: 17:51 Assessment/Plan Lines/Catheters IV Catheter Type (from [facility]): Saline Lock Whitaker in Place (from [facility]): No Assessment/Plan Chief Complaint/Hosp Course 1. Bilateral upper thighs and right flank wounds: 2/2 pressure from immobility; atherosclerosis but with not flow limiting per vascular; left thigh s/p wound vac -debridement -local wound care -offloading and turning frequently -specialty mattress 2. PNA: s/p abx -abx -pulmonary toilet 3. Venous stasis dermatitis 4. Diabetes -blood sugar optimization 5. Falls -PT -fall precautions 6. Morbidly Obese -diet and physical modification -7. ESRD with HD -per nephro 8. Normocytic anemia: no acute bleed noted -monitor 9. Esophagitis: no acute bleed -medical management 10. Hypercalcemia Patient seen and examined in collaboration with Dr. Kenney Forrester. Thank you. Problems: Subjective 24 Hr Interval Summary Anxious. No c/o pain, min discomfort to right thigh. No drainage to right thigh. No fevers, chills, cp, palpitations, cough, sob, n/v/d. Exam/Review of Systems Vital Signs Vitals Vital Signs Date Time Temp Pulse Resp B/P Pulse Ox O2 Delivery O2 Flow Rate FiO2 12/15/16 14:36 98.1 85 88 121/66 94 12/15/16 09:00 Nasal Cannula 2.0 Intake and Output 12/14/16 12/14/16 12/15/16 15:00 23:00 07:00 Intake Total 1360 ml 720 ml Output Total 3500 ml Balance -2140 ml 720 ml Exam Free Text/Dictation Constitutional: alert, oriented Psych: anxiety, No nl mood/affect: labile Head: atraumatic, normocephalic Eyes: nl lids, nl sclera ENMT: No nl lips & teeth (missing teeth) Neck: non-tender, supple Respiratory: diminished Cardiovascular: regular rate and rhythm Gastrointestinal: non-tender, other (obese), soft Musculoskeletal: muscle weakness, No nl gait and stance Extremities: No edema, No normal pulses Neurological: nl speech, nl Skin: other (wounds: Right thigh/trochanter area with areas of necrotic tissue and slough, no drainage, periwound erythema; left thigh: wound bed with slough, no drainage) Results Result Diagram: 12/15/16 0507 12/15/16 0507 JUSTIN FOX NP Dec 15, 2016 17:57
[2016-12-15] MEDS: ALBUTEROL 18 GM INHALER INH PRN ×2 (18:34→21:15)
[2016-12-15 21:02] VITALS: BP 129/59; RESP 18
[2016-12-15] MEDS: DOCUSATE SODIUM 100 MG CAP PO SCH (22:00)
[2016-12-15] MEDS: ATORVASTATIN 40 MG TAB PO SCH (23:14)
[2016-12-15] MEDS: INSULIN DETEMIR [LEVEMIR] 3ML CART SC SCH (23:17)
[2016-12-16] VITALS (12 sets, daily range): BP systolic 112–143; BP diastolic 48–91; PULSE 80–112; RESP 18–20
[2016-12-16] MEDS: BENZONATATE 100 MG CAP PO SCH ×5 (00:05→23:32)
[2016-12-16] MEDS: ALBUTEROL 18 GM INHALER INH PRN ×4 (01:40→23:54)
[2016-12-16] MEDS: ACCU-CHEK XX SCH (02:00)
[2016-12-16] MEDS: ALBUTEROL/IPRATROPIUM (NEB) 3 ML AMP HHN PRN ×3 (02:41→21:50)
[2016-12-16] MEDS: morphine 4 MG/ML VIAL IV PRN (04:08)
[2016-12-16] MEDS ORDERED: VITAMIN A & D 5 GM OINT PACKET TOP ONE (04:34)
--- NOTE | 2016-12-16 05:21 | RADRPT ---
AMENDMENT: 12/16/2016 5:22:25 AM Vladimir Alfaro MD COMPARISON: Chest x-ray November 26, 2016. PROCEDURE: CHEST - 1 VIEW CLINICAL INDICATION: 61-year-old female with shortness of breath. TECHNIQUE: A single frontal AP supine portable view of the chest was performed. The images were r eviewed on a PACS workstation. COMPARISON: None. FINDINGS: The cardiomediastinal silhouette is enlarged. The thoracic aortic arch is calcified. There is mode rate pulmonary vascular congestion. There is moderate right and mild left pleural effusions. There is more focal consolidation within the right lower lung zone. A superimposed infectious process ca nnot be excluded. There is no evidence for pneumothorax. The osseous structures are intact. IMPRESSION: 1. Cardiomegaly. 2. Calcified thoracic aortic arch. 3. Moderate pulmonary vascular congestion with more focal consolidation within the right lower lung zone. A superimposed infectious process cannot be excluded. Clinical correlation is necessary. 4. Moderate right and mild left pleural effusions. .Vladimir Alfaro MD, Date Time Electronically viewed and signed by .Vladimir Alfaro MD, on 12/16/2016 05:22 .M/
[2016-12-16] MEDS: OXYCODONE/ACETAMINOPHEN (10/325) TAB PO PRN ×2 (05:27→23:32)
[2016-12-16] MEDS: PANTOPRAZOLE 40 MG INJ IV SCH ×2 (05:28→17:38)
[2016-12-16 06:00] LABS: ABNORMAL IP MESSAGE 1; BASOPHIL # 0.1 10^3/ul (0.0-0.1); BASOPHILS % 1.3 % (0.0-2.0); EOSINOPHILS # 0.5 10^3/ul (0.0-0.5); EOSINOPHILS % 6.1 % (0.0-7.0); HEMATOCRIT 25.7 % (37.0-47.0); HEMOGLOBIN 7.4 g/dl (12.0-16.0); LYMPHOCYTES # 1.5 10^3/ul (0.8-2.9); LYMPHOCYTES % 17.3 % (15.0-51.0); MEAN CORPUSCULAR HEMOGLOBIN 26.9 pg (29.0-33.0); MEAN CORPUSCULAR HGB CONC 28.8 g/dl (32.0-37.0); MEAN CORPUSCULAR VOLUME 93.5 fl (82.0-101.0); MEAN PLATELET VOLUME 9.7 fl (7.4-10.4); MONOCYTE # 1.2 10^3/ul (0.3-0.9); MONOCYTES % 14.2 % (0.0-11.0); NEUTROPHIL # 5.1 10^3/ul (1.6-7.5); NEUTROPHILS % 59.3 % (39.0-77.0); NUCLEATED RED BLOOD CELLS% 0.5 /100WBC (0.0-0.0); PLATELET COUNT 390 10^3/UL (140-415); RED BLOOD COUNT 2.75 10^6/ul (4.20-5.40); WHITE BLOOD COUNT 8.6 10^3/ul (4.8-10.8)
[2016-12-16 06:03] LABS: POSITIVE DIFF @See below
[2016-12-16] MEDS: METOCLOPRAMIDE 5 MG TAB PO SCH ×4 (06:43→17:33)
[2016-12-16] MEDS: INSULIN ASPART [NOVOLOG] 3 ML PEN SC SCH ×4 (07:54→20:27)
[2016-12-16] MEDS: CALCIUM ACETATE 667 MG CAP PO SCH ×3 (07:55→17:34)
[2016-12-16] MEDS: LOSARTAN 50 MG TAB PO SCH ×3 (09:00→20:26)
[2016-12-16] MEDS: AMLODIPINE 5 MG TAB PO SCH (09:00)
[2016-12-16] MEDS: METOPROLOL (XL) 50 MG TAB PO SCH ×2 (09:00→20:27)
[2016-12-16] MEDS: FUROSEMIDE 40 MG TAB PO SCH (09:00)
[2016-12-16] MEDS: DILTIAZEM (CD) 120 MG CAP PO SCH ×2 (09:00→20:27)
[2016-12-16] MEDS: COLLAGENASE 30 GM TUBE TOP SCH (09:00)
[2016-12-16] MEDS: SALMETEROL/FLUTICASONE 250/50 INHA INH SCH ×2 (09:12→20:22)
[2016-12-16] MEDS: TIOTROPIUM 18 MCG CAPSULE INHA DEV INH SCH (09:12)
[2016-12-16] MEDS: SUCRALFATE 1 GM TAB PO SCH ×4 (09:14→20:25)
[2016-12-16] MEDS: NICOTINE (21 MG/24 HR) PATCH TRANSDERM SCH (09:15)
[2016-12-16] MEDS: CINACALCET 30 MG TAB PO SCH (09:15)
[2016-12-16] MEDS: POLYETHYLENE GLYCOL 17 GM PACKET PO SCH ×2 (09:15→20:31)
[2016-12-16] MEDS: ASPIRIN 81 MG TAB PO SCH (09:15)
[2016-12-16] MEDS: PYRIDOXINE 50 MG TAB PO SCH (09:15)
[2016-12-16] MEDS: APIXABAN 5 MG TABLET PO SCH ×2 (09:15→20:27)
[2016-12-16] MEDS: MONTELUKAST 10 MG TAB PO SCH (09:15)
[2016-12-16] MEDS: DOCUSATE SODIUM 100 MG CAP PO SCH ×2 (10:00→21:53)
--- NOTE | 2016-12-16 11:14 | CONS ---
Date/Time of Note Date/Time of Note DATE: 12/16/16 TIME: 11:10 Assessment/Plan Assessment/Plan Chief Complaint/Hosp Course Assessment/Plan Chief Complaint/Hosp Course ID PROGRESS NOTE ABX DAY => OFF ABX DAY #4 S/P TOTAL ABX DAYS #30 s/p ABX from 11/11/16 - 12/11/16 s/p Vancomycin IV s/p Meropenem + others 24H INTERVAL SUMMARY 1. No Acute Events Overnight. Denies Pain. No Acute Distress. PHYSICAL EXAMINATION: GENERAL: VSS, NAD, no fever, obese F HEENT: Unremarkable NECK: Trach midline CHEST: Equal chest rise bilaterally, without dyspnea on observation HEART: Pulse RRR ABDOMEN: Soft, left flank pain EXTREMITIES: Warm SKIN: Warm, dry, edema BLEXT w/wound vac ID ASSESSMENT: 61 yo super morbid obese F admitted with: 1. Acute encephalopathy, likely toxic metabolic => RESOLVED * Suspect underlying Psych DX NOS 2. Bilateral lower extremities chronic venous stasis with chronic cellulitis and left hip wound, s/p debridement and wound vac application 10/19/16. 3. End-stage renal disease, on hemodialysis. * Left upper extremity AV fistula 4. Healthcare associated pneumonia, possibly aspiration = Clinically improved - Completed lengthy course IV ABX 5. Atrial fibrillation. 6. COPD - stable 7. Diabetes 8. Hx of falls -> limited mobility due to super morbid obesity 9. Anemia-> managed by primary ABX ALLERGIES: PCN, CIPRO CURRENT ABX: => OFF ABX DAY #4 S/P TOTAL ABX DAYS #30 s/p ABX from 11/11/16 - 12/11/16 s/p Vancomycin IV s/p Meropenem + others ID RECOMMENDATIONS: 1. Patient has completed 30 days of IV ABX for PNA and wounds -> She is OFF ABX and stable DAY #4 * ==>Clinically status quo -- No fevers, VSS, WBC normal == stable OFF ABX 96 Hours 2. Monitor her OFF ABX at this time w/PRN repeat MICRO Cx for TEMP >101.5 and/ or other clinical indicators 3. Continue local wound care 4. May DC or TNS OFF ABX as long as she remains afebrile; no indication for isolation as wounds have been treated 5. Pain Management. Problems: Consultation Date/Type/Reason Admit Date/Time Nov 11, 2016 at 06:40 Initial Consult Date 12/02/16 Type of Consultation: ID Referring Provider: ERICK MATOS Exam/Review of Systems Vital Signs Vitals Vital Signs Date Time Temp Pulse Resp B/P Pulse Ox O2 Delivery O2 Flow Rate FiO2 12/16/16 08:00 97.5 75 18 142/61 91 12/16/16 03:07 Nasal Cannula 2.0 Intake and Output 12/15/16 12/15/16 12/16/16 15:00 23:00 07:00 Intake Total 720 ml 680 ml Balance 720 ml 680 ml Results Result Diagram: 12/16/16 0450 12/15/16 0507 Results 24 hrs Laboratory Tests Test 12/15/16 12:03 12/15/16 17:25 12/15/16 23:11 12/16/16 04:50 Bedside Glucose 112 109 110 White Blood Count 8.6 Red Blood Count 2.75 L Hemoglobin 7.4 L Hematocrit 25.7 L Mean Corpuscular Volume 93.5 Mean Corpuscular Hemoglobin 26.9 L Mean Corpuscular Hemoglobin Concent 28.8 L Red Cell Distribution Width 19.0 H Platelet Count 390 Mean Platelet Volume 9.7 Neutrophils % 59.3 Lymphocytes % 17.3 Monocytes % 14.2 H Eosinophils % 6.1 Basophils % 1.3 Nucleated Red Blood Cells % 0.5 H Neutrophils # 5.1 Lymphocytes # 1.5 Monocytes # 1.2 H Eosinophils # 0.5 Basophils # 0.1 Nucleated Red Blood Cells # 0.0 Test 12/16/16 07:54 Bedside Glucose 98 Medications Medications Current Medications Amlodipine Besylate (Norvasc) 5 mg DAILY PO Last administered on 12/15/16 08:51 ; Admin Dose 5 MG; Start 11/11/16 at 09:30 Aspirin (Aspirin) 81 mg DAILY PO Last administered on 12/16/16 09:15; Admin Dose 81 MG; Start 11/11/16 at 09:30 Atorvastatin Calcium (Lipitor) 40 mg QHS PO Last administered on 12/15/16 23:14 ; Admin Dose 40 MG; Start 11/11/16 at 21:00 Benzonatate (Tessalon) 100 mg Q6 PO Last administered on 12/16/16 05:27; Admin Dose 100 MG; Start 11/11/16 at 12:00 Carisoprodol (Soma) 350 mg Q8 PRN PO MUSCLE SPASMS Last administered on 03:54; Admin Dose 350 MG; Start 11/11/16 at 12:00 Cinacalcet (Sensipar) 30 mg DAILY PO Last administered on 12/16/16 09:15; Admin Dose 30 MG; Start 11/11/16 at 11:00 Furosemide (Lasix) 80 mg DAILY PO Last administered on 12/15/16 08:50; Admin Dose 80 MG; Start 11/11/16 at 09:30 Losartan Potassium (Cozaar) 50 mg BID PO Last administered on 12/16/16 00:00; Admin Dose 50 MG; Start 11/11/16 at 09:30 Metoprolol Succinate (Toprol Xl) 50 mg BID PO Last administered on 12/15/16 23: 59; Admin Dose 50 MG; Start 11/11/16 at 09:30 Montelukast Sodium (Singulair) 10 mg QAM PO Last administered on 12/16/16 09:15 ; Admin Dose 10 MG; Start 11/11/16 at 11:00 Oxycodone/ Acetaminophen (Endocet (10/ 325)) 1 tab Q6 PRN PO PRN Last administered on 12/16/16 05:27; Admin Dose 1 TAB; Start 11/11/16 at 12:00 Pyridoxine HCl (Vitamin B6) 50 mg DAILY PO Last administered on 12/16/16 09:15 ; Admin Dose 50 MG; Start 11/11/16 at 09:30 Tiotropium [place] (Spiriva) 1 inh DAILY INH Last administered on 12/16/16 09: 12; Admin Dose 1 INH; Start 11/11/16 at 11:00 Ondansetron HCl (Zofran Tab) 4 mg Q6H PRN PO NAUSEA AND/OR VOMITING Last administered on 11/22/16 08:46; Admin Dose 4 MG; Start 11/11/16 at 10:00 Salmeterol Xinafoate/ Fluticasone (Advair 250/50 Diskus) 1 inh BID INH Last administered on 12/16/16 09:12; Admin Dose 1 INH; Start 11/11/16 at 11:00 Epoetin Hang (Epogen (Esrd)) 10,000 units TuThSa@17 SC Last administered on 12/14 17:48; Admin Dose 10,000 UNITS; Start 11/11/16 at 17:00 Collagenase (Santyl) 1 applic DAILY TOP Last administered on 12/13/16 04:55; Admin Dose 1 APPLIC; Start 11/13/16 at 09:00 Diagnostic Test (Pha) (Accu-Chek) 1 ea 02 XX Last administered on 12/12/16 02: 00; Admin Dose 1 EA; Start 11/14/16 at 02:00 Nicotine (Nicoderm 21 Mg/ 24hr) 1 patch DAILY TRANSDERM Last administered on 09:15; Admin Dose 1 PATCH; Start 11/14/16 at 20:00 Docusate Sodium (Colace) 100 mg Q12H PO Last administered on 12/14/16 23:18; Admin Dose 100 MG; Start 11/16/16 at 22:00 Miscellaneous Information 1 ea NOTE XX ; Start 11/17/16 at 11:30 Glucose (Glutose) 15 gm Q15M PRN PO DECREASED GLUCOSE; Start 11/17/16 at 11:30 Glucose (Glutose) 22.5 gm Q15M PRN PO DECREASED GLUCOSE; Start 11/17/16 at 11:30 Dextrose (D50w Syringe) 25 ml Q15M PRN IV DECREASED GLUCOSE; Start 11/17/16 at 11:30 Dextrose (D50w Syringe) 50 ml Q15M PRN IV DECREASED GLUCOSE; Start 11/17/16 at 11:30 Glucagon (Glucagen) 1 mg Q15M PRN IM DECREASED GLUCOSE; Start 11/17/16 at 11:30 Glucose (Glutose) 15 gm Q15M PRN BUCCAL DECREASED GLUCOSE; Start 11/17/16 at 11: 30 Polyethylene Glycol (Miralax) 17 gm BID PO Last administered on 12/16/16 09:15 ; Admin Dose 17 GM; Start 11/17/16 at 12:00 Bisacodyl (Dulcolax) 10 mg DAILY PRN PO CONSTIPATION; Start 11/17/16 at 11:30 Diltiazem HCl (Cardizem Cd) 120 mg BID PO Last administered on 12/15/16 23:59; Admin Dose 120 MG; Start 11/19/16 at 21:00 Zolpidem Tartrate (Ambien) 5 mg HS PRN PO INSOMNIA Last administered on 23:22; Admin Dose 5 MG; Start 11/19/16 at 21:30 Lorazepam (Ativan) 1 mg Q6H PRN IV AGITATION/ANXIETY Last administered on 23:05; Admin Dose 1 MG; Start 11/21/16 at 21:15 Guaifenesin/ Codeine Phosphate (Robitussin Ac Liquid Cup) 5 ml Q4H PRN PO COUGH Last administered on 12/14/16 03:48; Admin Dose 5 ML; Start 11/21/16 at 21: 30 Pantoprazole (Protonix Iv) 40 mg BID@06,18 IV Last administered on 12/16/16 05: 28; Admin Dose 40 MG; Start 12/02/16 at 18:00 Sucralfate (Carafate) 1 gm QID PO Last administered on 12/16/16 09:14; Admin Dose 1 GM; Start 12/03/16 at 17:00 Insulin Detemir (Levemir) 30 unit QHS@20 SC Last administered on 12/15/16 23:17 ; Admin Dose 30 UNIT; Start 12/12/16 at 20:00 Sodium Chloride (Deep Sea) 1 spray Q2H PRN NASAL NASAL CONGESTION Last administered on 12/13/16 04:56; Admin Dose 1 SPRAY; Start 12/12/16 at 21:30 Morphine Sulfate (morphine) 2 mg Q3H PRN IV for pain Last administered on 04:08; Admin Dose 2 MG; Start 12/13/16 at 14:30 Apixaban (Eliquis) 5 mg BID PO Last administered on 12/16/16 09:15; Admin Dose 5 MG; Start 12/13/16 at 21:00 Albuterol (Ventolin Hfa) 2 puff Q2H PRN INH SHORTNESS OF BREATH Last administered on 12/16/16 05:32; Admin Dose 2 PUFF; Start 12/15/16 at 21:15 NOÉ CAMARILLO NP Dec 16, 2016 11:14
--- NOTE | 2016-12-16 11:58 | PN ---
Date/Time of Note Date/Time of Note DATE: 12/16/16 TIME: 11:54 Assessment/Plan Lines/Catheters IV Catheter Type (from [facility]): Saline Lock Whitaker in Place (from [facility]): No Assessment/Plan Chief Complaint/Hosp Course 1. Bilateral upper thighs and right flank wounds: 2/2 pressure from immobility; atherosclerosis but with not flow limiting per vascular; left thigh s/p wound vac -debridement -local wound care -offloading and turning frequently -specialty mattress 2. PNA: s/p abx -abx -pulmonary toilet 3. Venous stasis dermatitis 4. Diabetes -blood sugar optimization 5. Falls -PT -fall precautions 6. Morbidly Obese -diet and physical modification -7. ESRD with HD -per nephro 8. Normocytic anemia: no acute bleed noted -monitor 9. Esophagitis: no acute bleed -medical management 10. Hypercalcemia Patient seen and examined in collaboration with Dr. Kenney Forrester. Thank you. Problems: Subjective 24 Hr Interval Summary Anxious. Feels ok. No drainage from wounds. Discomfort on right thigh, but able to mobilize extremity. up with PT. No fevers overnight, no chills, n/v/d, cough , cp. Exam/Review of Systems Vital Signs Vitals Vital Signs Date Time Temp Pulse Resp B/P Pulse Ox O2 Delivery O2 Flow Rate FiO2 12/16/16 08:00 97.5 75 18 142/61 91 12/16/16 08:00 Nasal Cannula 3.0 Intake and Output 12/15/16 12/15/16 12/16/16 15:00 23:00 07:00 Intake Total 720 ml 680 ml Balance 720 ml 680 ml Exam Free Text/Dictation Constitutional: alert, oriented Psych: anxiety, No nl mood/affect: labile Head: atraumatic, normocephalic Eyes: nl lids, nl sclera ENMT: No nl lips & teeth (missing teeth) Neck: non-tender, supple Respiratory: diminished Cardiovascular: regular rate and rhythm Gastrointestinal: non-tender, other (obese), soft Musculoskeletal: muscle weakness, No nl gait and stance Extremities: No edema, No normal pulses Neurological: nl speech, nl Skin: other (wounds: Right thigh/trochanter area with areas of necrotic tissue and slough, no drainage, periwound erythema; left thigh: wound bed with slough, no drainage) Results Result Diagram: 12/16/16 0450 12/15/16 0507 JUSTIN FOX NP Dec 16, 2016 11:58
--- NOTE | 2016-12-16 14:10 | PN ---
Date/Time of Note Date/Time of Note DATE: 12/16/16 TIME: 14:07 Assessment/Plan VTE Prophylaxis VTE Prophylaxis Intervention: other Lines/Catheters IV Catheter Type (from Nrs): Saline Lock Urinary Cath still in place: No Assessment/Plan Chief Complaint/Hosp Course Patient is a 61-year-old female with past history of end-stage renal disease, diabetes, hypertension and obesity presents to [facility] for falls at home found to have ulcers and pneumonia. Assessment Debility Left lower extremity thigh area ulcer, with wound VAC GI bleed gastritis, erosive Diabetes type 2 End-stage renal disease, on dialysis Pneumonia Obesity Dyslipidemia Diabetic foot ulcers Bilateral lower extremity chronic venous stasis ulcers Chronic cellulitis Left hip wound Coronary artery disease Hypertension Atrial fibrillation Lower extremity edema Insomnia Plan -protonix bid per GI, EGD showed gastritis, GI okay to restart eliquis for a-fib , hgb lower than before, however has been some time before prior hbg, repeat h and h today stable, no signs of overt/acute bleed. continue eliquis for now, will monitor very closely. -Patient has multiple medical conditions, continue chronic care -Patient wound vac removed. ABX finished -consulted Dr. Forrester, general surgery for R hip wound. per Dr. Fuentes's recommendation. Will manage as needed. -continue home medications as able -Patient will likely need correction, pending placement at this time, disposition issue with placement. -As needed medications for pain -continue HD for ESRD. Stefan Munson DO Problems: Subjective 24 Hr Interval Summary Free Text/Dictation getting dialysis no new complaints Exam/Review of Systems Vital Signs Vitals Vital Signs Date Time Temp Pulse Resp B/P Pulse Ox O2 Delivery O2 Flow Rate FiO2 12/16/16 13:40 83 12/16/16 13:40 19 12/16/16 08:00 97.5 142/61 91 12/16/16 08:00 Nasal Cannula 3.0 Intake and Output 12/15/16 12/15/16 12/16/16 15:00 23:00 07:00 Intake Total 720 ml 680 ml Balance 720 ml 680 ml Exam Physical exam General: Patient is laying in bed and answers questions appropriately Mentation: Patient is alert and oriented 4, Head: Normocephalic atraumatic Eyes: EOMI, pupils reactive to light Neck: Supple, nontender, midline Respiratory:mildly course to auscultation bilaterally Cardiovascular: regular rate, no obvious murmurs Gastrointestinal: non-tender to palpation, bowel sounds heard. Neurological: Moves all extremities spontaneously Skin: multiple skin lesions on body. L hip wound. multiple LE ulcerations. R hip wound. Results Result Diagram: 12/16/16 0450 12/15/16 0507 Results 24 hrs Laboratory Tests Test 12/15/16 17:25 12/15/16 23:11 12/16/16 04:50 12/16/16 07:54 Bedside Glucose 109 110 98 White Blood Count 8.6 Red Blood Count 2.75 L Hemoglobin 7.4 L Hematocrit 25.7 L Mean Corpuscular Volume 93.5 Mean Corpuscular Hemoglobin 26.9 L Mean Corpuscular Hemoglobin Concent 28.8 L Red Cell Distribution Width 19.0 H Platelet Count 390 Mean Platelet Volume 9.7 Neutrophils % 59.3 Lymphocytes % 17.3 Monocytes % 14.2 H Eosinophils % 6.1 Basophils % 1.3 Nucleated Red Blood Cells % 0.5 H Neutrophils # 5.1 Lymphocytes # 1.5 Monocytes # 1.2 H Eosinophils # 0.5 Basophils # 0.1 Nucleated Red Blood Cells # 0.0 Medications Medications Current Medications Amlodipine Besylate (Norvasc) 5 mg DAILY PO Last administered on 12/15/16 08:51 ; Admin Dose 5 MG; Start 11/11/16 at 09:30 Aspirin (Aspirin) 81 mg DAILY PO Last administered on 12/16/16 09:15; Admin Dose 81 MG; Start 11/11/16 at 09:30 Atorvastatin Calcium (Lipitor) 40 mg QHS PO Last administered on 12/15/16 23:14 ; Admin Dose 40 MG; Start 11/11/16 at 21:00 Benzonatate (Tessalon) 100 mg Q6 PO Last administered on 12/16/16 05:27; Admin Dose 100 MG; Start 11/11/16 at 12:00 Carisoprodol (Soma) 350 mg Q8 PRN PO MUSCLE SPASMS Last administered on 03:54; Admin Dose 350 MG; Start 11/11/16 at 12:00 Cinacalcet (Sensipar) 30 mg DAILY PO Last administered on 12/16/16 09:15; Admin Dose 30 MG; Start 11/11/16 at 11:00 Furosemide (Lasix) 80 mg DAILY PO Last administered on 12/15/16 08:50; Admin Dose 80 MG; Start 11/11/16 at 09:30 Losartan Potassium (Cozaar) 50 mg BID PO Last administered on 12/16/16 00:00; Admin Dose 50 MG; Start 11/11/16 at 09:30 Metoprolol Succinate (Toprol Xl) 50 mg BID PO Last administered on 12/15/16 23: 59; Admin Dose 50 MG; Start 11/11/16 at 09:30 Montelukast Sodium (Singulair) 10 mg QAM PO Last administered on 12/16/16 09:15 ; Admin Dose 10 MG; Start 11/11/16 at 11:00 Oxycodone/ Acetaminophen (Endocet (10/ 325)) 1 tab Q6 PRN PO PRN Last administered on 12/16/16 05:27; Admin Dose 1 TAB; Start 11/11/16 at 12:00 Pyridoxine HCl (Vitamin B6) 50 mg DAILY PO Last administered on 12/16/16 09:15 ; Admin Dose 50 MG; Start 11/11/16 at 09:30 Tiotropium [place] (Spiriva) 1 inh DAILY INH Last administered on 12/16/16 09: 12; Admin Dose 1 INH; Start 11/11/16 at 11:00 Ondansetron HCl (Zofran Tab) 4 mg Q6H PRN PO NAUSEA AND/OR VOMITING Last administered on 11/22/16 08:46; Admin Dose 4 MG; Start 11/11/16 at 10:00 Salmeterol Xinafoate/ Fluticasone (Advair 250/50 Diskus) 1 inh BID INH Last administered on 12/16/16 09:12; Admin Dose 1 INH; Start 11/11/16 at 11:00 Epoetin Hang (Epogen (Esrd)) 10,000 units TuThSa@17 SC Last administered on 12/14 17:48; Admin Dose 10,000 UNITS; Start 11/11/16 at 17:00 Collagenase (Santyl) 1 applic DAILY TOP Last administered on 12/13/16 04:55; Admin Dose 1 APPLIC; Start 11/13/16 at 09:00 Diagnostic Test (Pha) (Accu-Chek) 1 ea 02 XX Last administered on 12/12/16 02: 00; Admin Dose 1 EA; Start 11/14/16 at 02:00 Nicotine (Nicoderm 21 Mg/ 24hr) 1 patch DAILY TRANSDERM Last administered on 09:15; Admin Dose 1 PATCH; Start 11/14/16 at 20:00 Docusate Sodium (Colace) 100 mg Q12H PO Last administered on 12/14/16 23:18; Admin Dose 100 MG; Start 11/16/16 at 22:00 Miscellaneous Information 1 ea NOTE XX ; Start 11/17/16 at 11:30 Glucose (Glutose) 15 gm Q15M PRN PO DECREASED GLUCOSE; Start 11/17/16 at 11:30 Glucose (Glutose) 22.5 gm Q15M PRN PO DECREASED GLUCOSE; Start 11/17/16 at 11:30 Dextrose (D50w Syringe) 25 ml Q15M PRN IV DECREASED GLUCOSE; Start 11/17/16 at 11:30 Dextrose (D50w Syringe) 50 ml Q15M PRN IV DECREASED GLUCOSE; Start 11/17/16 at 11:30 Glucagon (Glucagen) 1 mg Q15M PRN IM DECREASED GLUCOSE; Start 11/17/16 at 11:30 Glucose (Glutose) 15 gm Q15M PRN BUCCAL DECREASED GLUCOSE; Start 11/17/16 at 11: 30 Polyethylene Glycol (Miralax) 17 gm BID PO Last administered on 12/16/16 09:15 ; Admin Dose 17 GM; Start 11/17/16 at 12:00 Bisacodyl (Dulcolax) 10 mg DAILY PRN PO CONSTIPATION; Start 11/17/16 at 11:30 Diltiazem HCl (Cardizem Cd) 120 mg BID PO Last administered on 12/15/16 23:59; Admin Dose 120 MG; Start 11/19/16 at 21:00 Zolpidem Tartrate (Ambien) 5 mg HS PRN PO INSOMNIA Last administered on 23:22; Admin Dose 5 MG; Start 11/19/16 at 21:30 Lorazepam (Ativan) 1 mg Q6H PRN IV AGITATION/ANXIETY Last administered on 23:05; Admin Dose 1 MG; Start 11/21/16 at 21:15 Guaifenesin/ Codeine Phosphate (Robitussin Ac Liquid Cup) 5 ml Q4H PRN PO COUGH Last administered on 12/14/16 03:48; Admin Dose 5 ML; Start 11/21/16 at 21: 30 Pantoprazole (Protonix Iv) 40 mg BID@06,18 IV Last administered on 12/16/16 05: 28; Admin Dose 40 MG; Start 12/02/16 at 18:00 Sucralfate (Carafate) 1 gm QID PO Last administered on 12/16/16 09:14; Admin Dose 1 GM; Start 12/03/16 at 17:00 Insulin Detemir (Levemir) 30 unit QHS@20 SC Last administered on 12/15/16 23:17 ; Admin Dose 30 UNIT; Start 12/12/16 at 20:00 Sodium Chloride (Deep Sea) 1 spray Q2H PRN NASAL NASAL CONGESTION Last administered on 12/13/16 04:56; Admin Dose 1 SPRAY; Start 12/12/16 at 21:30 Morphine Sulfate (morphine) 2 mg Q3H PRN IV for pain Last administered on 04:08; Admin Dose 2 MG; Start 12/13/16 at 14:30 Apixaban (Eliquis) 5 mg BID PO Last administered on 12/16/16 09:15; Admin Dose 5 MG; Start 12/13/16 at 21:00 Albuterol (Ventolin Hfa) 2 puff Q2H PRN INH SHORTNESS OF BREATH Last administered on 12/16/16 05:32; Admin Dose 2 PUFF; Start 12/15/16 at 21:15 STEFAN MUNSON Dec 16, 2016 14:10
[2016-12-16] MEDS: EPOETIN 10000 UNITS/1 ML INJ (ESRD) SC SCH (17:35)
[2016-12-16 18:47] LABS: HAAIG REFLEX REFLEX FILED
[2016-12-16 19:54] LABS: HEPATITIS B CORE ANTIBODY NEGATIVE (NEGATIVE)
[2016-12-16] MEDS: INSULIN DETEMIR [LEVEMIR] 3ML CART SC SCH (20:24)
[2016-12-16] MEDS: ATORVASTATIN 40 MG TAB PO SCH (20:27)
[2016-12-16] MEDS: ZOLPIDEM 5 MG TAB PO PRN (22:04)
[2016-12-17] MEDS: ACCU-CHEK XX SCH (01:22)
[2016-12-17] MEDS: ALBUTEROL/IPRATROPIUM (NEB) 3 ML AMP HHN PRN ×2 (01:25→17:05)
[2016-12-17 02:00] VITALS: BP 118/56; RESP 20
[2016-12-17] MEDS: morphine 4 MG/ML VIAL IV PRN ×3 (02:01→23:54)
[2016-12-17] MEDS: LORAZEPAM 2 MG INJ IV PRN (02:56)
[2016-12-17] MEDS: PANTOPRAZOLE 40 MG INJ IV SCH ×2 (05:10→17:12)
[2016-12-17] MEDS: BENZONATATE 100 MG CAP PO SCH ×4 (05:10→23:53)
[2016-12-17] MEDS: INSULIN ASPART [NOVOLOG] 3 ML PEN SC SCH ×4 (08:00→20:32)
[2016-12-17 08:23] VITALS: BP 123/70; RESP 20
[2016-12-17] MEDS: SALMETEROL/FLUTICASONE 250/50 INHA INH SCH ×2 (08:53→20:27)
[2016-12-17] MEDS: CALCIUM ACETATE 667 MG CAP PO SCH ×3 (08:54→17:13)
[2016-12-17] MEDS: ASPIRIN 81 MG TAB PO SCH (08:54)
[2016-12-17] MEDS: NICOTINE (21 MG/24 HR) PATCH TRANSDERM SCH (08:54)
[2016-12-17] MEDS: POLYETHYLENE GLYCOL 17 GM PACKET PO SCH ×3 (08:54→20:32)
[2016-12-17] MEDS: PYRIDOXINE 50 MG TAB PO SCH (08:54)
[2016-12-17] MEDS: MONTELUKAST 10 MG TAB PO SCH (08:54)
[2016-12-17] MEDS: CINACALCET 30 MG TAB PO SCH (08:54)
[2016-12-17] MEDS: FUROSEMIDE 40 MG TAB PO SCH (08:55)
[2016-12-17] MEDS: METOPROLOL (XL) 50 MG TAB PO SCH ×2 (08:56→20:32)
[2016-12-17] MEDS: APIXABAN 5 MG TABLET PO SCH ×2 (08:57→20:30)
[2016-12-17] MEDS: COLLAGENASE 30 GM TUBE TOP SCH (08:57)
[2016-12-17] MEDS: DILTIAZEM (CD) 120 MG CAP PO SCH ×2 (08:57→20:32)
[2016-12-17] MEDS: AMLODIPINE 5 MG TAB PO SCH (08:57)
[2016-12-17] MEDS: LOSARTAN 50 MG TAB PO SCH ×2 (08:57→20:31)
[2016-12-17] MEDS: METOCLOPRAMIDE 5 MG TAB PO SCH ×3 (08:57→17:13)
[2016-12-17] MEDS: DOCUSATE SODIUM 100 MG CAP PO SCH ×2 (09:04→22:00)
[2016-12-17] MEDS: SUCRALFATE 1 GM TAB PO SCH ×4 (09:06→20:30)
[2016-12-17] MEDS: TIOTROPIUM 18 MCG CAPSULE INHA DEV INH SCH (09:06)
[2016-12-17 09:09] VITALS: PULSE 100
--- NOTE | 2016-12-17 12:15 | CONS ---
Date/Time of Note Date/Time of Note DATE: 12/17/16 TIME: 12:11 Assessment/Plan Assessment/Plan Chief Complaint/Hosp Course Assessment/Plan Chief Complaint/Hosp Course ID PROGRESS NOTE ABX DAY => OFF ABX DAY #4 S/P TOTAL ABX DAYS #30 s/p ABX from 11/11/16 - 12/11/16 s/p Vancomycin IV s/p Meropenem + others 24H INTERVAL SUMMARY 1. Denies Pain. Resting Comfortably. No Acute Distress. PHYSICAL EXAMINATION: GENERAL: VSS, NAD, no fever, obese F HEENT: Unremarkable NECK: Trach midline CHEST: Equal chest rise bilaterally, without dyspnea on observation HEART: Pulse RRR ABDOMEN: Soft, left flank pain EXTREMITIES: Warm SKIN: Warm, dry, edema BLEXT w/wound vac ID ASSESSMENT: 61 yo super morbid obese F admitted with: 1. Acute encephalopathy, likely toxic metabolic => RESOLVED * Suspect underlying Psych DX NOS 2. Bilateral lower extremities chronic venous stasis with chronic cellulitis and left hip wound, s/p debridement and wound vac application 10/19/16. 3. End-stage renal disease, on hemodialysis. * Left upper extremity AV fistula 4. Healthcare associated pneumonia, possibly aspiration = Clinically improved - Completed lengthy course IV ABX 5. Atrial fibrillation. 6. COPD - stable 7. Diabetes 8. Hx of falls -> limited mobility due to super morbid obesity 9. Anemia-> managed by primary ABX ALLERGIES: PCN, CIPRO CURRENT ABX: => OFF ABX DAY #4 S/P TOTAL ABX DAYS #30 s/p ABX from 11/11/16 - 12/11/16 s/p Vancomycin IV s/p Meropenem + others ID RECOMMENDATIONS: 1. Patient has completed 30 days of IV ABX for PNA and wounds -> She is OFF ABX and stable DAY #4 * ==>Clinically status quo -- No fevers, VSS, WBC normal == stable OFF ABX 96 Hours 2. Monitor her OFF ABX at this time w/PRN repeat MICRO Cx for TEMP >101.5 and/ or other clinical indicators 3. Continue local wound care 4. May DC or TNS OFF ABX as long as she remains afebrile; no indication for isolation as wounds have been treated 5. Pain Management. 6. GI Prophylaxis. DVT Prophylaxis. Problems: Consultation Date/Type/Reason Admit Date/Time Nov 11, 2016 at 06:40 Initial Consult Date 12/02/16 Type of Consultation: ID Referring Provider: ERICK MATOS Exam/Review of Systems Vital Signs Vitals Vital Signs Date Time Temp Pulse Resp B/P Pulse Ox O2 Delivery O2 Flow Rate FiO2 12/17/16 09:09 100 95 Nasal Cannula 2.0 12/17/16 08:23 97.6 20 123/70 Intake and Output 12/16/16 12/16/16 12/17/16 15:00 23:00 07:00 Intake Total 500 ml 600 ml 720 ml Output Total 4000 ml Balance -3500 ml 600 ml 720 ml Results Result Diagram: 12/16/16 0450 12/15/16 0507 Results 24 hrs Laboratory Tests Test 12/16/16 14:27 12/16/16 17:30 12/16/16 20:20 12/17/16 07:59 Bedside Glucose 124 125 128 113 Test 12/17/16 11:44 Bedside Glucose 128 Medications Medications Current Medications Amlodipine Besylate (Norvasc) 5 mg DAILY PO Last administered on 12/17/16 08:57 ; Admin Dose 5 MG; Start 11/11/16 at 09:30 Aspirin (Aspirin) 81 mg DAILY PO Last administered on 12/17/16 08:54; Admin Dose 81 MG; Start 11/11/16 at 09:30 Atorvastatin Calcium (Lipitor) 40 mg QHS PO Last administered on 12/16/16 20:27 ; Admin Dose 40 MG; Start 11/11/16 at 21:00 Benzonatate (Tessalon) 100 mg Q6 PO Last administered on 12/17/16 12:02; Admin Dose 100 MG; Start 11/11/16 at 12:00 Carisoprodol (Soma) 350 mg Q8 PRN PO MUSCLE SPASMS Last administered on 03:54; Admin Dose 350 MG; Start 11/11/16 at 12:00 Cinacalcet (Sensipar) 30 mg DAILY PO Last administered on 12/17/16 08:54; Admin Dose 30 MG; Start 11/11/16 at 11:00 Furosemide (Lasix) 80 mg DAILY PO Last administered on 12/17/16 08:55; Admin Dose 80 MG; Start 11/11/16 at 09:30 Losartan Potassium (Cozaar) 50 mg BID PO Last administered on 12/17/16 08:57; Admin Dose 50 MG; Start 11/11/16 at 09:30 Metoprolol Succinate (Toprol Xl) 50 mg BID PO Last administered on 12/17/16 08: 56; Admin Dose 50 MG; Start 11/11/16 at 09:30 Montelukast Sodium (Singulair) 10 mg QAM PO Last administered on 12/17/16 08:54 ; Admin Dose 10 MG; Start 11/11/16 at 11:00 Oxycodone/ Acetaminophen (Endocet ()) 1 tab Q6 PRN PO PRN Last administered on 12/16/16 23:32; Admin Dose 1 TAB; Start 11/11/16 at 12:00 Pyridoxine HCl (Vitamin B6) 50 mg DAILY PO Last administered on 12/17/16 08:54 ; Admin Dose 50 MG; Start 11/11/16 at 09:30 Tiotropium [place] (Spiriva) 1 inh DAILY INH Last administered on 12/17/16 09: 06; Admin Dose 1 INH; Start 11/11/16 at 11:00 Ondansetron HCl (Zofran Tab) 4 mg Q6H PRN PO NAUSEA AND/OR VOMITING Last administered on 11/22/16 08:46; Admin Dose 4 MG; Start 11/11/16 at 10:00 Salmeterol Xinafoate/ Fluticasone (Advair 250/50 Diskus) 1 inh BID INH Last administered on 12/17/16 08:53; Admin Dose 1 INH; Start 11/11/16 at 11:00 Epoetin Hang (Epogen (Esrd)) 10,000 units TuThSa@17 SC Last administered on 12/16 17:35; Admin Dose 10,000 UNITS; Start 11/11/16 at 17:00 Collagenase (Santyl) 1 applic DAILY TOP Last administered on 12/17/16 08:57; Admin Dose 1 APPLIC; Start 11/13/16 at 09:00 Diagnostic Test (Pha) (Accu-Chek) 1 ea 02 XX Last administered on 12/12/16 02: 00; Admin Dose 1 EA; Start 11/14/16 at 02:00 Nicotine (Nicoderm 21 Mg/ 24hr) 1 patch DAILY TRANSDERM Last administered on 08:54; Admin Dose 1 PATCH; Start 11/14/16 at 20:00 Docusate Sodium (Colace) 100 mg Q12H PO Last administered on 12/14/16 23:18; Admin Dose 100 MG; Start 11/16/16 at 22:00 Miscellaneous Information 1 ea NOTE XX ; Start 11/17/16 at 11:30 Glucose (Glutose) 15 gm Q15M PRN PO DECREASED GLUCOSE; Start 11/17/16 at 11:30 Glucose (Glutose) 22.5 gm Q15M PRN PO DECREASED GLUCOSE; Start 11/17/16 at 11:30 Dextrose (D50w Syringe) 25 ml Q15M PRN IV DECREASED GLUCOSE; Start 11/17/16 at 11:30 Dextrose (D50w Syringe) 50 ml Q15M PRN IV DECREASED GLUCOSE; Start 11/17/16 at 11:30 Glucagon (Glucagen) 1 mg Q15M PRN IM DECREASED GLUCOSE; Start 11/17/16 at 11:30 Glucose (Glutose) 15 gm Q15M PRN BUCCAL DECREASED GLUCOSE; Start 11/17/16 at 11: 30 Polyethylene Glycol (Miralax) 17 gm BID PO Last administered on 12/16/16 09:15 ; Admin Dose 17 GM; Start 11/17/16 at 12:00 Bisacodyl (Dulcolax) 10 mg DAILY PRN PO CONSTIPATION; Start 11/17/16 at 11:30 Diltiazem HCl (Cardizem Cd) 120 mg BID PO Last administered on 12/17/16 08:57; Admin Dose 120 MG; Start 11/19/16 at 21:00 Zolpidem Tartrate (Ambien) 5 mg HS PRN PO INSOMNIA Last administered on 22:04; Admin Dose 5 MG; Start 11/19/16 at 21:30 Lorazepam (Ativan) 1 mg Q6H PRN IV AGITATION/ANXIETY Last administered on 02:56; Admin Dose 1 MG; Start 11/21/16 at 21:15 Guaifenesin/ Codeine Phosphate (Robitussin Ac Liquid Cup) 5 ml Q4H PRN PO COUGH Last administered on 12/14/16 03:48; Admin Dose 5 ML; Start 11/21/16 at 21: 30 Pantoprazole (Protonix Iv) 40 mg BID@06,18 IV Last administered on 12/17/16 05: 10; Admin Dose 40 MG; Start 12/02/16 at 18:00 Sucralfate (Carafate) 1 gm QID PO Last administered on 12/17/16 12:02; Admin Dose 1 GM; Start 12/03/16 at 17:00 Insulin Detemir (Levemir) 30 unit QHS@20 SC Last administered on 12/16/16 20:24 ; Admin Dose 30 UNIT; Start 12/12/16 at 20:00 Sodium Chloride ([place]) 1 spray Q2H PRN NASAL NASAL CONGESTION Last administered on 12/13/16 04:56; Admin Dose 1 SPRAY; Start 12/12/16 at 21:30 Morphine Sulfate (morphine) 2 mg Q3H PRN IV for pain Last administered on 02:01; Admin Dose 2 MG; Start 12/13/16 at 14:30 Apixaban (Eliquis) 5 mg BID PO Last administered on 12/17/16 08:57; Admin Dose 5 MG; Start 12/13/16 at 21:00 Albuterol (Ventolin Hfa) 2 puff Q2H PRN INH SHORTNESS OF BREATH Last administered on 12/16/16 23:54; Admin Dose 2 PUFF; Start 12/15/16 at 21:15 NOÉ CAMARILLO NP Dec 17, 2016 12:15
--- NOTE | 2016-12-17 14:23 | PN ---
Date/Time of Note Date/Time of Note DATE: 12/17/16 TIME: 14:19 Assessment/Plan Lines/Catheters IV Catheter Type (from [email or web address] Saline Lock Wihtaker in Place (from [facility] [[email or web address] No Assessment/Plan Chief Complaint/Hosp Course 1. Bilateral upper thighs and right flank wounds: 2/2 pressure from immobility; atherosclerosis but with not flow limiting per vascular; left thigh s/p wound vac -debridement -local wound care -offloading and turning frequently -specialty mattress -vitamin c short term zinc 2. PNA: s/p abx -abx -pulmonary toilet 3. Venous stasis dermatitis 4. Diabetes -blood sugar optimization 5. Falls -PT -fall precautions 6. Morbidly Obese -diet and physical modification -7. ESRD with HD -per nephro 8. Normocytic anemia: no acute bleed noted; asymptomatic -monitor 9. Esophagitis: no acute bleed -medical management 10. Hypercalcemia Patient seen and examined in collaboration with Dr. Kenney Forrester. Thank you. Problems: Subjective 24 Hr Interval Summary Feels well. Very anxious. Right thigh wound without drainage. Up with PT. No fevers, chills, cp, palpitations, n/v/d. Exam/Review of Systems Vital Signs Vitals Vital Signs Date Time Temp Pulse Resp B/P Pulse Ox O2 Delivery O2 Flow Rate FiO2 12/17/16 09:09 100 95 Nasal Cannula 2.0 12/17/16 08:23 97.6 20 123/70 Intake and Output 12/16/16 12/16/16 12/17/16 15:00 23:00 07:00 Intake Total 500 ml 600 ml 720 ml Output Total 4000 ml Balance -3500 ml 600 ml 720 ml Exam Free Text/Dictation Constitutional: alert, oriented Psych: anxiety, intermittenly screaming No nl mood/affect: labile Head: atraumatic, normocephalic Eyes: nl lids, nl sclera ENMT: No nl lips & teeth (missing teeth) Neck: non-tender, supple Respiratory: diminished Cardiovascular: regular rate and rhythm Gastrointestinal: non-tender, other (obese), soft Musculoskeletal: muscle weakness, No nl gait and stance Extremities: No edema, No normal pulses Neurological: nl speech, nl Skin: other (wounds: Right thigh/trochanter area with areas of necrotic tissue and slough, no drainage, periwound erythema; left thigh: wound bed with slough, no drainage) Results Result Diagram: 12/16/16 0450 12/15/16 0507 JUSTIN FOX NP Dec 17, 2016 14:23
--- NOTE | 2016-12-17 15:01 | DS ---
Date/Time of Note Date/Time of Note DATE: 12/17/16 TIME: 15:00 Discharge Summary Admission/Discharge Info Admit Date/Time Nov 11, 2016 at 06:40 Discharge Date/Time Patient Condition: Stable Hx of Present Illness 61 yo F with pmhx ESRD on HD, DM2, obesity, HTN admitted following ground level fall at home. Pt with recent hospital stay here 6.11-19 for volume overload 2/2 missed HD. Pt was sent to a SNF at discharge for MAYUR, however pt states she left after 3 hours at the SNF because she was dissatisfied with the facility. Since returning home pt has been getting regular visits from a nurse to help with her chronic wounds and her wound vac. Pt denies any chest pain, new cough or SOB. Pt states that she tripped over her L ankle last night, which was the cause of her ground level fall. No head trauma or LOC. After her fall last night, pt was taken by EMS to [facility]. noted to be in AFib/flutter with HR in low 100s. LA 3.4, WBCs 19.3, CXR with fluid v infiltrate. Currently pt feels in her USOH. Requesting a referral for PT. Hospital Course Patient is a 61-year-old female with past medical history of end-stage renal disease, diabetes, multiple wounds and ulcers, hypertension, dementia who presents to [facility] for falls at home and admitted originally for pneumonia. Patient had a very long stay at [facility] due to insurance reasons and patient was fully treated for active pneumonia and had a wound VAC placed on her ulcer. General surgery as well as vascular surgery saw patient for patient's ulcer and made recommendations however the patient did not cooperate on a daily basis with wound care even though it was clearly explained to her that in order for the wounds to heal they must be maintained. Patient understands that she wants to take care of in the past herself. Eventually antibiotic course was finished as well as wound VAC course and patient was stable for discharge however there is a significant barrier to discharge given insurance reasons. During this time of waiting, patient had an acute episode of dark tarry stool and gastroenterology was consulted. They performed an EGD which showed erosive gastritis and patient was started on pantoprazole twice a day. Patient's Eliquis was held for a few days however it was restarted with careful monitoring and H&H is stable. I highly recommend routine checks of hemoglobin hematocrit as patient's Eliquis may cause bleeding. Patient has multiple comorbidities including multiple ulcers that will likely persist given patient's lack of cooperation, frequent reminders will be needed. Patient will also need hemodialysis for end-stage renal disease. Patient will be discharged with appropriate medications to a custodial facility. Debility Left lower extremity thigh area ulcer, with wound VAC GI bleed gastritis, erosive Diabetes type 2 End-stage renal disease, on dialysis Pneumonia Obesity Dyslipidemia Diabetic foot ulcers Bilateral lower extremity chronic venous stasis ulcers Chronic cellulitis Left hip wound Coronary artery disease Hypertension Atrial fibrillation Lower extremity edema Insomnia Home Meds Active Scripts [Vancomycin Iv Per Pharmacy] 1 EA EACH No Conflict Check, 0 EA XX .PER PROTOCOL for 14 Days Prov:MARSHAL SHARP MD 11/01/16 Fluconazole* (Diflucan*) 100 Mg Tablet, 100 MG PO DAILY for 14 Days, TAB Prov:MARSHAL SHARP MD 11/01/16 Reported Medications Carisoprodol* (Carisoprodol*) 350 Mg Tablet, 350 MG PO Q8 Y for MUSCLE SPASMS, TAB 11/11/16 Tiotropium [place]* (Spiriva*) 18 Mcg Cap.w.dev, 1 CAP INHALATION DAILY, #30 CAP 09/09/16 Insulin Detemir (Levemir Flextouch) 100 Unit/1 Ml Insuln.pen, 90 UNIT SQ 09/09/16 Montelukast Sodium* (Montelukast Sodium*) 10 Mg Tablet, 10 MG PO QAM, #30 TAB 09/09/16 Apixaban* (Eliquis*) 5 Mg Tablet, 5 MG PO BID, TAB 09/09/16 Calcium Acetate* (Phoslo*) 667 Mg Tablet, 667 MG PO WITH MEALS, TAB TAKE 4 TAB 09/09/16 Pyridoxine Hcl* (Pyridoxine Hcl*) 50 Mg Tablet, 50 MG PO DAILY, TAB 09/09/16 Zolpidem Tartrate* (Zolpidem Tartrate*) 5 Mg Tablet, 5 MG PO QHS Y for INSOMNIA , #30 TAB 09/09/16 Oxycodone HCl/Acetaminophen (Percocet 10-325 mg Tablet) 1 Each Tablet, 1 EACH PO Q6 Y for PRN, TAB 09/09/16 Budesonide-Formoterol Fumarate* (Symbicort*) 160-4.5 Hfa.aer.ad, 2 PUFF INHALATION BID, #1 EACH 12/19/15 Furosemide* (Furosemide*) 80 Mg Tablet, 80 MG PO DAILY, #30 TAB 12/19/15 Benzonatate* (Tessalon [place]*) 100 Mg Capsule, 100 MG PO Q6, CAP 12/19/15 Atorvastatin* (Atorvastatin*) 40 Mg Tablet, 40 MG PO QHS, #30 TAB 12/19/15 Amlodipine Besylate* (Amlodipine Besylate*) 5 Mg Tablet, 5 MG PO DAILY, #30 TAB 12/19/15 Losartan Potassium* (Losartan Potassium*) 50 Mg Tablet, 50 MG PO BID, TAB 12/19/15 Cinacalcet* (Sensipar*) 30 Mg Tab, 30 MG PO, TAB 12/19/15 Diltiazem Hcl* (Cardizem SR*) 60 Mg Capsr, 60 MG PO Q12, #60 CAP 12/19/15 Metoprolol Succinate* (Toprol XL*) 50 Mg Tab.er.24h, 50 MG PO BID, #30 TAB 12/19/15 Metoclopramide* (Reglan*) 5 Mg Tablet, 5 MG PO AC MEALS, TAB 12/19/15 Aspirin* (Aspirin* Chew) 81 Mg Tab.chew, 81 MG PO DAILY, TAB.CHEW 12/19/15 Albuterol Sulfate* (Proair HFA*) 8.5 Gm Hfa.aer.ad, 2 PUFF INH Q4H Y for WHEEZING AND SOB, INH 06/12/14 Omeprazole* (Prilosec*) 40 Mg Capsule.dr, 40 MG PO DAILY 08/31/12 Primary Care Provider Randy Miranda Time spent on discharge: > 30 minutes Pending Labs Laboratory Tests Test 12/16/16 17:30 12/16/16 20:20 12/17/16 07:59 12/17/16 11:44 Bedside Glucose 125mg/dL (70-220) 128mg/dL (70-220) 113mg/dL (70-220) 128mg/dL (70-220) CHIP MUNSON Dec 17, 2016 15:01
[2016-12-17] MEDS ORDERED: SAN30GM TOP (15:06)
[2016-12-17] MEDS ORDERED: NOVO3I SC (15:06)
[2016-12-17] MEDS ORDERED: NICO1PAT6 TRANSDERM (15:06)
[2016-12-17] MEDS ORDERED: SUCR1TAB27 PO (15:06)
[2016-12-17] MEDS ORDERED: INSU100I27 SC (15:06)
[2016-12-17] MEDS ORDERED: EPO10ESRD SC (15:06)
[2016-12-17] MEDS ORDERED: PANT40VI7 IV (15:06)
[2016-12-17 15:27] VITALS: BP 124/70; RESP 20
[2016-12-17 19:29] VITALS: BP 134/59; RESP 18
[2016-12-17] MEDS: INSULIN DETEMIR [LEVEMIR] 3ML CART SC SCH (20:29)
[2016-12-17] MEDS: ATORVASTATIN 40 MG TAB PO SCH (20:30)
[2016-12-17] MEDS: ALBUTEROL 18 GM INHALER INH PRN ×2 (21:21→23:53)
[2016-12-17] MEDS: ZOLPIDEM 5 MG TAB PO PRN (22:00)
[2016-12-18] VITALS (12 sets, daily range): BP systolic 95–141; BP diastolic 35–95; PULSE 86–94; RESP 16–19
[2016-12-18] MEDS: ACCU-CHEK XX SCH (02:00)
[2016-12-18] MEDS: morphine 4 MG/ML VIAL IV PRN (02:51)
[2016-12-18] MEDS: OXYCODONE/ACETAMINOPHEN (10/325) TAB PO PRN (04:00)
[2016-12-18] MEDS: ALBUTEROL 18 GM INHALER INH PRN ×3 (04:00→22:28)
[2016-12-18] MEDS: BENZONATATE 100 MG CAP PO SCH ×4 (05:49→23:03)
[2016-12-18] MEDS: PANTOPRAZOLE 40 MG INJ IV SCH ×2 (05:49→17:18)
[2016-12-18] MEDS: CALCIUM ACETATE 667 MG CAP PO SCH ×3 (07:51→17:17)
[2016-12-18] MEDS: METOCLOPRAMIDE 5 MG TAB PO SCH ×3 (07:51→17:17)
[2016-12-18] MEDS: INSULIN ASPART [NOVOLOG] 3 ML PEN SC SCH ×4 (08:00→20:52)
[2016-12-18] MEDS: COLLAGENASE 30 GM TUBE TOP SCH (09:00)
[2016-12-18] MEDS: POLYETHYLENE GLYCOL 17 GM PACKET PO SCH ×2 (09:00→20:52)
[2016-12-18] MEDS: NICOTINE (21 MG/24 HR) PATCH TRANSDERM SCH (09:45)
[2016-12-18] MEDS: PYRIDOXINE 50 MG TAB PO SCH (09:45)
[2016-12-18] MEDS: DOCUSATE SODIUM 100 MG CAP PO SCH ×2 (09:45→22:00)
[2016-12-18] MEDS: APIXABAN 5 MG TABLET PO SCH (09:45)
[2016-12-18] MEDS: SALMETEROL/FLUTICASONE 250/50 INHA INH SCH ×2 (09:45→20:50)
[2016-12-18] MEDS: MONTELUKAST 10 MG TAB PO SCH (09:45)
[2016-12-18] MEDS: TIOTROPIUM 18 MCG CAPSULE INHA DEV INH SCH (09:45)
[2016-12-18] MEDS: SUCRALFATE 1 GM TAB PO SCH ×4 (09:45→20:50)
[2016-12-18 11:23] LABS: HEMATOCRIT 22.3 % (37.0-47.0)
[2016-12-18 11:33] LABS: HEMOGLOBIN 6.5 g/dl (12.0-16.0)
[2016-12-18] MEDS ORDERED: ALBUMIN HUMAN 25% 100 ML IV ONE (12:00)
--- NOTE | 2016-12-18 14:27 | PN ---
Date/Time of Note Date/Time of Note DATE: 12/18/16 TIME: 14:26 Assessment/Plan VTE Prophylaxis VTE Prophylaxis Intervention: SCD's Lines/Catheters IV Catheter Type (from Nrsg): Saline Lock Urinary Cath still in place: No Assessment/Plan Chief Complaint/Hosp Course Patient is a 61-year-old female with past history of end-stage renal disease, diabetes, hypertension and obesity presents to [facility] for falls at home found to have ulcers and pneumonia. Assessment Debility Left lower extremity thigh area ulcer, with wound VAC GI bleed gastritis, erosive Diabetes type 2 End-stage renal disease, on dialysis Pneumonia Obesity Dyslipidemia Diabetic foot ulcers Bilateral lower extremity chronic venous stasis ulcers Chronic cellulitis Left hip wound Coronary artery disease Hypertension Atrial fibrillation Lower extremity edema Insomnia Plan -protonix bid per GI, EGD showed gastritis, GI okay to restart eliquis for a-fib , however after a few days, patient hgb dropped again. will transfuse today, but holding eliquis. -Patient has multiple medical conditions, continue chronic care -Patient wound vac removed. ABX finished -consulted Dr. Forrester, general surgery for R hip wound. per Dr. Fuentes's recommendation. Will manage as needed. -continue home medications as able -Patient will likely need usp, pending placement at this time, disposition issue with placement. -As needed medications for pain -continue HD for ESRD. Stefan Munson DO Problems: Exam/Review of Systems Vital Signs Vitals Vital Signs Date Time Temp Pulse Resp B/P Pulse Ox O2 Delivery O2 Flow Rate FiO2 12/18/16 14:00 98.2 93 18 128/59 93 12/18/16 02:23 3.0 12/17/16 20:00 Nasal Cannula Intake and Output 12/17/16 12/17/16 12/18/16 15:00 23:00 07:00 Intake Total 240 ml 510 ml Balance 240 ml 510 ml Results Result Diagram: 12/18/16 1055 12/15/16 0507 Results 24 hrs Laboratory Tests Test 12/17/16 17:09 12/17/16 20:26 12/18/16 07:50 12/18/16 10:55 Bedside Glucose 134 132 87 Hemoglobin 6.5 *L Hematocrit 22.3 L Test 12/18/16 11:57 Bedside Glucose 104 Medications Medications Current Medications Amlodipine Besylate (Norvasc) 5 mg DAILY PO Last administered on 12/17/16 08:57 ; Admin Dose 5 MG; Start 11/11/16 at 09:30 Aspirin (Aspirin) 81 mg DAILY PO Last administered on 12/17/16 08:54; Admin Dose 81 MG; Start 11/11/16 at 09:30 Atorvastatin Calcium (Lipitor) 40 mg QHS PO Last administered on 12/17/16 20:30 ; Admin Dose 40 MG; Start 11/11/16 at 21:00 Benzonatate (Tessalon) 100 mg Q6 PO Last administered on 12/18/16 05:49; Admin Dose 100 MG; Start 11/11/16 at 12:00 Carisoprodol (Soma) 350 mg Q8 PRN PO MUSCLE SPASMS Last administered on 03:54; Admin Dose 350 MG; Start 11/11/16 at 12:00 Cinacalcet (Sensipar) 30 mg DAILY PO Last administered on 12/17/16 08:54; Admin Dose 30 MG; Start 11/11/16 at 11:00 Furosemide (Lasix) 80 mg DAILY PO Last administered on 12/17/16 08:55; Admin Dose 80 MG; Start 11/11/16 at 09:30 Losartan Potassium (Cozaar) 50 mg BID PO Last administered on 12/17/16 20:31; Admin Dose 50 MG; Start 11/11/16 at 09:30 Metoprolol Succinate (Toprol Xl) 50 mg BID PO Last administered on 12/17/16 20: 32; Admin Dose 50 MG; Start 11/11/16 at 09:30 Montelukast Sodium (Singulair) 10 mg QAM PO Last administered on 12/18/16 09:45 ; Admin Dose 10 MG; Start 11/11/16 at 11:00 Oxycodone/ Acetaminophen (Endocet (10/ 325)) 1 tab Q6 PRN PO PRN Last administered on 12/18/16 04:00; Admin Dose 1 TAB; Start 11/11/16 at 12:00 Pyridoxine HCl (Vitamin B6) 50 mg DAILY PO Last administered on 12/18/16 09:45 ; Admin Dose 50 MG; Start 11/11/16 at 09:30 Tiotropium [place] (Spiriva) 1 inh DAILY INH Last administered on 12/18/16 09: 45; Admin Dose 1 INH; Start 11/11/16 at 11:00 Ondansetron HCl (Zofran Tab) 4 mg Q6H PRN PO NAUSEA AND/OR VOMITING Last administered on 11/22/16 08:46; Admin Dose 4 MG; Start 11/11/16 at 10:00 Salmeterol Xinafoate/ Fluticasone (Advair 250/50 Diskus) 1 inh BID INH Last administered on 12/18/16 09:45; Admin Dose 1 INH; Start 11/11/16 at 11:00 Epoetin Hang (Epogen (Esrd)) 10,000 units TuThSa@17 SC Last administered on 12/16 17:35; Admin Dose 10,000 UNITS; Start 11/11/16 at 17:00 Collagenase (Santyl) 1 applic DAILY TOP Last administered on 12/17/16 08:57; Admin Dose 1 APPLIC; Start 11/13/16 at 09:00 Diagnostic Test (Pha) (Accu-Chek) 1 ea 02 XX Last administered on 12/12/16 02: 00; Admin Dose 1 EA; Start 11/14/16 at 02:00 Nicotine (Nicoderm 21 Mg/ 24hr) 1 patch DAILY TRANSDERM Last administered on 09:45; Admin Dose 1 PATCH; Start 11/14/16 at 20:00 Docusate Sodium (Colace) 100 mg Q12H PO Last administered on 12/18/16 09:45; Admin Dose 100 MG; Start 11/16/16 at 22:00 Miscellaneous Information 1 ea NOTE XX ; Start 11/17/16 at 11:30 Glucose (Glutose) 15 gm Q15M PRN PO DECREASED GLUCOSE; Start 11/17/16 at 11:30 Glucose (Glutose) 22.5 gm Q15M PRN PO DECREASED GLUCOSE; Start 11/17/16 at 11:30 Dextrose (D50w Syringe) 25 ml Q15M PRN IV DECREASED GLUCOSE; Start 11/17/16 at 11:30 Dextrose (D50w Syringe) 50 ml Q15M PRN IV DECREASED GLUCOSE; Start 11/17/16 at 11:30 Glucagon (Glucagen) 1 mg Q15M PRN IM DECREASED GLUCOSE; Start 11/17/16 at 11:30 Glucose (Glutose) 15 gm Q15M PRN BUCCAL DECREASED GLUCOSE; Start 11/17/16 at 11: 30 Polyethylene Glycol (Miralax) 17 gm BID PO Last administered on 12/16/16 09:15 ; Admin Dose 17 GM; Start 11/17/16 at 12:00 Bisacodyl (Dulcolax) 10 mg DAILY PRN PO CONSTIPATION; Start 11/17/16 at 11:30 Diltiazem HCl (Cardizem Cd) 120 mg BID PO Last administered on 12/17/16 20:32; Admin Dose 120 MG; Start 11/19/16 at 21:00 Zolpidem Tartrate (Ambien) 5 mg HS PRN PO INSOMNIA Last administered on 22:00; Admin Dose 5 MG; Start 11/19/16 at 21:30 Lorazepam (Ativan) 1 mg Q6H PRN IV AGITATION/ANXIETY Last administered on 02:56; Admin Dose 1 MG; Start 11/21/16 at 21:15 Guaifenesin/ Codeine Phosphate (Robitussin Ac Liquid Cup) 5 ml Q4H PRN PO COUGH Last administered on 12/14/16 03:48; Admin Dose 5 ML; Start 11/21/16 at 21: 30 Pantoprazole (Protonix Iv) 40 mg BID@06,18 IV Last administered on 12/18/16 05: 49; Admin Dose 40 MG; Start 12/02/16 at 18:00 Sucralfate (Carafate) 1 gm QID PO Last administered on 12/18/16 09:45; Admin Dose 1 GM; Start 12/03/16 at 17:00 Insulin Detemir (Levemir) 30 unit QHS@20 SC Last administered on 12/17/16 20:29 ; Admin Dose 30 UNIT; Start 12/12/16 at 20:00 Sodium Chloride (Deep Sea) 1 spray Q2H PRN NASAL NASAL CONGESTION Last administered on 12/13/16 04:56; Admin Dose 1 SPRAY; Start 12/12/16 at 21:30 Apixaban (Eliquis) 5 mg BID PO Last administered on 12/18/16 09:45; Admin Dose 5 MG; Start 12/13/16 at 21:00; Status Future Hold Albuterol (Ventolin Hfa) 2 puff Q2H PRN INH SHORTNESS OF BREATH Last administered on 12/18/16t 04:00; Admin Dose 2 PUFF; Start 12/15/16 at 21:15 Morphine Sulfate (morphine) 2 mg Q3H PRN IV for pain; Start 12/18/16 at 12:00 STEFAN MUNSON Dec 18, 2016 14:26
[2016-12-18] MEDS: morphine 2 MG INJ IV PRN (14:42)
[2016-12-18] MEDS: CINACALCET 30 MG TAB PO SCH (14:47)
[2016-12-18] MEDS: ASPIRIN 81 MG TAB PO SCH (14:47)
[2016-12-18] MEDS: LOSARTAN 50 MG TAB PO SCH ×2 (14:48→20:52)
[2016-12-18] MEDS: FUROSEMIDE 40 MG TAB PO SCH (14:48)
[2016-12-18] MEDS: DILTIAZEM (CD) 120 MG CAP PO SCH ×2 (14:48→20:51)
[2016-12-18] MEDS: METOPROLOL (XL) 50 MG TAB PO SCH ×2 (14:49→20:52)
[2016-12-18] MEDS: AMLODIPINE 5 MG TAB PO SCH (14:49)
[2016-12-18] MEDS: EPOETIN 10000 UNITS/1 ML INJ (ESRD) SC SCH (17:27)
[2016-12-18] MEDS: INSULIN DETEMIR [LEVEMIR] 3ML CART SC SCH (20:50)
[2016-12-18] MEDS: ATORVASTATIN 40 MG TAB PO SCH (20:51)
[2016-12-18] MEDS: ZOLPIDEM 5 MG TAB PO PRN (22:17)
[2016-12-19] MEDS: ACCU-CHEK XX SCH (02:00)
[2016-12-19] MEDS: morphine 2 MG INJ IV PRN ×6 (02:52→20:01)
[2016-12-19 02:54] VITALS: BP 139/63; RESP 16
[2016-12-19] MEDS: BENZONATATE 100 MG CAP PO SCH ×4 (05:41→23:38)
[2016-12-19] MEDS: ALBUTEROL 18 GM INHALER INH PRN ×3 (05:43→18:39)
[2016-12-19] MEDS: PANTOPRAZOLE 40 MG INJ IV SCH ×2 (05:43→17:05)
[2016-12-19] MEDS: METOCLOPRAMIDE 5 MG TAB PO SCH ×4 (07:30→17:05)
[2016-12-19] MEDS: INSULIN ASPART [NOVOLOG] 3 ML PEN SC SCH ×4 (08:00→21:00)
[2016-12-19] MEDS: POLYETHYLENE GLYCOL 17 GM PACKET PO SCH ×3 (09:00→21:50)
[2016-12-19] MEDS: COLLAGENASE 30 GM TUBE TOP SCH (09:00)
[2016-12-19] MEDS: SALMETEROL/FLUTICASONE 250/50 INHA INH SCH ×2 (09:48→21:44)
[2016-12-19] MEDS: CALCIUM ACETATE 667 MG CAP PO SCH ×3 (09:48→17:05)
[2016-12-19] MEDS: TIOTROPIUM 18 MCG CAPSULE INHA DEV INH SCH (09:49)
[2016-12-19] MEDS: ASPIRIN 81 MG TAB PO SCH (09:49)
[2016-12-19] MEDS: SUCRALFATE 1 GM TAB PO SCH ×4 (09:49→21:46)
[2016-12-19 09:52] VITALS: BP 146/77; RESP 18
[2016-12-19] MEDS: LOSARTAN 50 MG TAB PO SCH ×2 (09:53→21:47)
[2016-12-19] MEDS: DILTIAZEM (CD) 120 MG CAP PO SCH ×2 (09:53→21:46)
[2016-12-19] MEDS: CINACALCET 30 MG TAB PO SCH (09:54)
[2016-12-19] MEDS: PYRIDOXINE 50 MG TAB PO SCH (09:54)
[2016-12-19] MEDS: MONTELUKAST 10 MG TAB PO SCH (09:54)
[2016-12-19] MEDS: AMLODIPINE 5 MG TAB PO SCH (09:54)
[2016-12-19] MEDS: METOPROLOL (XL) 50 MG TAB PO SCH ×2 (09:54→21:46)
[2016-12-19] MEDS: FUROSEMIDE 40 MG TAB PO SCH (09:54)
[2016-12-19] MEDS: NICOTINE (21 MG/24 HR) PATCH TRANSDERM SCH (09:55)
[2016-12-19] MEDS: DOCUSATE SODIUM 100 MG CAP PO SCH ×2 (09:56→21:46)
[2016-12-19 11:03] LABS: BASOPHIL # 0.1 10^3/ul (0.0-0.1); BASOPHILS % 0.8 % (0.0-2.0); EOSINOPHILS # 0.5 10^3/ul (0.0-0.5); HEMATOCRIT 28.6 % (37.0-47.0); HEMOGLOBIN 8.8 g/dl (12.0-16.0); LYMPHOCYTES # 1.3 10^3/ul (0.8-2.9); LYMPHOCYTES % 13.2 % (15.0-51.0); MEAN CORPUSCULAR HGB CONC 30.8 g/dl (32.0-37.0); MEAN CORPUSCULAR VOLUME 87.7 fl (82.0-101.0); MEAN PLATELET VOLUME 9.3 fl (7.4-10.4); MONOCYTE # 1.3 10^3/ul (0.3-0.9); MONOCYTES % 13.6 % (0.0-11.0); NEUTROPHIL # 6.1 10^3/ul (1.6-7.5); NEUTROPHILS % 64.8 % (39.0-77.0); NUCLEATED RED BLOOD CELLS% 0.3 /100WBC (0.0-0.0); PLATELET COUNT 371 10^3/UL (140-415); RED BLOOD COUNT 3.26 10^6/ul (4.20-5.40); RED CELL DISTRIBUTION WIDTH 19.2 % (11.5-14.5); WHITE BLOOD COUNT 9.4 10^3/ul (4.8-10.8)
[2016-12-19 11:29] LABS: CALCIUM 10.2 mg/dl (8.4-10.2); CREATININE 3.21 mg/dl (0.44-1.00); MAGNESIUM 2.1 mg/dl (1.7-2.5); POTASSIUM 3.8 mmol/L (3.5-5.1)
--- NOTE | 2016-12-19 13:15 | PN ---
Date/Time of Note Date/Time of Note DATE: 12/19/16 TIME: 13:13 Assessment/Plan VTE Prophylaxis VTE Prophylaxis Intervention: SCD's Lines/Catheters IV Catheter Type (from Nrs): Saline Lock Urinary Cath still in place: No Assessment/Plan Chief Complaint/Hosp Course Patient is a 61-year-old female with past history of end-stage renal disease, diabetes, hypertension and obesity presents to [facility] for falls at home found to have ulcers and pneumonia. Assessment Debility Left lower extremity thigh area ulcer, with wound VAC GI bleed gastritis, erosive Diabetes type 2 End-stage renal disease, on dialysis Pneumonia Obesity Dyslipidemia Diabetic foot ulcers Bilateral lower extremity chronic venous stasis ulcers Chronic cellulitis Left hip wound Coronary artery disease Hypertension Atrial fibrillation Lower extremity edema Insomnia Plan -protonix bid per GI, EGD done last week showed erosive gastritis, GI okay to restart eliquis for a-fib, however after a few days, patient hgb dropped again. transfused, but holding eliquis for now. -Patient has multiple medical conditions, continue chronic care -Patient wound vac removed. ABX finished -consulted Dr. Forrester, general surgery for R hip wound. per Dr. Fuentes's recommendation. Will manage as needed. -continue home medications as able -Patient will likely need longterm, pending placement at this time, disposition issue with placement. -As needed medications for pain -continue HD for ESRD. DISPO: patient approved for SNF, logistical errors so patient could not leave 12/17/16, anticipate DC to SNF soon. Stefan Munson DO Problems: Subjective 24 Hr Interval Summary Free Text/Dictation non-specific complaints regarding diet and wound care. Patient continues to have flight of ideas Exam/Review of Systems Vital Signs Vitals Vital Signs Date Time Temp Pulse Resp B/P Pulse Ox O2 Delivery O2 Flow Rate FiO2 12/19/16 09:52 97.7 86 18 146/77 94 12/19/16 09:11 3.0 12/18/16 20:00 Nasal Cannula Intake and Output 12/18/16 12/18/16 12/19/16 15:00 23:00 07:00 Intake Total 500 ml 620 ml 1260 ml Output Total 2500 ml Balance -2000 ml 620 ml 1260 ml Exam General: Patient is laying in bed and answers questions appropriately Mentation: Patient is alert and oriented 4, Head: Normocephalic atraumatic Eyes: EOMI, pupils reactive to light Neck: Supple, nontender, midline Respiratory:mildly course to auscultation bilaterally Cardiovascular: regular rate, no obvious murmurs Gastrointestinal: non-tender to palpation, bowel sounds heard. Neurological: Moves all extremities spontaneously Skin: multiple skin lesions on body. L hip wound. multiple LE ulcerations. R hip wound. Results Result Diagram: 12/19/16 1045 12/19/16 1045 Results 24 hrs Laboratory Tests Test 12/18/16 17:16 12/18/16 20:47 12/19/16 07:46 12/19/16 09:35 Bedside Glucose 115 102 104 Lab Scanned Report BLOOD TRANSFUSION Test 12/19/16 10:45 12/19/16 12:35 White Blood Count 9.4 Red Blood Count 3.26 L Hemoglobin 8.8 #L Hematocrit 28.6 #L Mean Corpuscular Volume 87.7 Mean Corpuscular Hemoglobin 27.0 L Mean Corpuscular Hemoglobin Concent 30.8 L Red Cell Distribution Width 19.2 H Platelet Count 371 Mean Platelet Volume 9.3 Neutrophils % 64.8 Lymphocytes % 13.2 L Monocytes % 13.6 H Eosinophils % 5.0 Basophils % 0.8 Nucleated Red Blood Cells % 0.3 H Neutrophils # 6.1 Lymphocytes # 1.3 Monocytes # 1.3 H Eosinophils # 0.5 Basophils # 0.1 Nucleated Red Blood Cells # 0.0 Sodium Level 139 Potassium Level 3.8 Chloride Level 95 L Carbon Dioxide Level 30 Anion Gap 18 H Blood Urea Nitrogen 26 H Creatinine 3.21 H Glucose Level 97 Calcium Level 10.2 Phosphorus Level 2.0 L Magnesium Level 2.1 Bedside Glucose 100 Medications Medications Current Medications Amlodipine Besylate (Norvasc) 5 mg DAILY PO Last administered on 12/19/16 09:54 ; Admin Dose 5 MG; Start 11/11/16 at 09:30 Aspirin (Aspirin) 81 mg DAILY PO Last administered on 12/19/16 09:49; Admin Dose 81 MG; Start 11/11/16 at 09:30 Atorvastatin Calcium (Lipitor) 40 mg QHS PO Last administered on 12/18/16 20:51 ; Admin Dose 40 MG; Start 11/11/16 at 21:00 Benzonatate (Tessalon) 100 mg Q6 PO Last administered on 12/19/16 12:43; Admin Dose 100 MG; Start 11/11/16 at 12:00 Carisoprodol (Soma) 350 mg Q8 PRN PO MUSCLE SPASMS Last administered on 03:54; Admin Dose 350 MG; Start 11/11/16 at 12:00 Cinacalcet (Sensipar) 30 mg DAILY PO Last administered on 12/19/16 09:54; Admin Dose 30 MG; Start 11/11/16 at 11:00 Furosemide (Lasix) 80 mg DAILY PO Last administered on 12/19/16 09:54; Admin Dose 80 MG; Start 11/11/16 at 09:30 Losartan Potassium (Cozaar) 50 mg BID PO Last administered on 12/19/16 09:53; Admin Dose 50 MG; Start 11/11/16 at 09:30 Metoprolol Succinate (Toprol Xl) 50 mg BID PO Last administered on 12/19/16 09: 54; Admin Dose 50 MG; Start 11/11/16 at 09:30 Montelukast Sodium (Singulair) 10 mg QAM PO Last administered on 12/19/16 09:54 ; Admin Dose 10 MG; Start 11/11/16 at 11:00 Oxycodone/ Acetaminophen (Endocet (10/ 325)) 1 tab Q6 PRN PO PRN Last administered on 12/18/16 04:00; Admin Dose 1 TAB; Start 11/11/16 at 12:00 Pyridoxine HCl (Vitamin B6) 50 mg DAILY PO Last administered on 12/19/16 09:54 ; Admin Dose 50 MG; Start 11/11/16 at 09:30 Tiotropium [place] (Spiriva) 1 inh DAILY INH Last administered on 12/19/16 09: 49; Admin Dose 1 INH; Start 11/11/16 at 11:00 Ondansetron HCl (Zofran Tab) 4 mg Q6H PRN PO NAUSEA AND/OR VOMITING Last administered on 11/22/16 08:46; Admin Dose 4 MG; Start 11/11/16 at 10:00 Salmeterol Xinafoate/ Fluticasone (Advair 250/50 Diskus) 1 inh BID INH Last administered on 12/19/16 09:48; Admin Dose 1 INH; Start 11/11/16 at 11:00 Epoetin Hang (Epogen (Esrd)) 10,000 units TuThSa@17 SC Last administered on 12/18 17:27; Admin Dose 10,000 UNITS; Start 11/11/16 at 17:00 Collagenase (Santyl) 1 applic DAILY TOP Last administered on 12/17/16 08:57; Admin Dose 1 APPLIC; Start 11/13/16 at 09:00 Diagnostic Test (Pha) (Accu-Chek) 1 ea 02 XX Last administered on 12/12/16 02: 00; Admin Dose 1 EA; Start 11/14/16 at 02:00 Nicotine (Nicoderm 21 Mg/ 24hr) 1 patch DAILY TRANSDERM Last administered on 09:55; Admin Dose 1 PATCH; Start 11/14/16 at 20:00 Docusate Sodium (Colace) 100 mg Q12H PO Last administered on 12/18/16 09:45; Admin Dose 100 MG; Start 11/16/16 at 22:00 Miscellaneous Information 1 ea NOTE XX ; Start 11/17/16 at 11:30 Glucose (Glutose) 15 gm Q15M PRN PO DECREASED GLUCOSE; Start 11/17/16 at 11:30 Glucose (Glutose) 22.5 gm Q15M PRN PO DECREASED GLUCOSE; Start 11/17/16 at 11:30 Dextrose (D50w Syringe) 25 ml Q15M PRN IV DECREASED GLUCOSE; Start 11/17/16 at 11:30 Dextrose (D50w Syringe) 50 ml Q15M PRN IV DECREASED GLUCOSE; Start 11/17/16 at 11:30 Glucagon (Glucagen) 1 mg Q15M PRN IM DECREASED GLUCOSE; Start 11/17/16 at 11:30 Glucose (Glutose) 15 gm Q15M PRN BUCCAL DECREASED GLUCOSE; Start 11/17/16 at 11: 30 Polyethylene Glycol (Miralax) 17 gm BID PO Last administered on 12/16/16 09:15 ; Admin Dose 17 GM; Start 11/17/16 at 12:00 Bisacodyl (Dulcolax) 10 mg DAILY PRN PO CONSTIPATION; Start 11/17/16 at 11:30 Diltiazem HCl (Cardizem Cd) 120 mg BID PO Last administered on 12/19/16 09:53; Admin Dose 120 MG; Start 11/19/16 at 21:00 Zolpidem Tartrate (Ambien) 5 mg HS PRN PO INSOMNIA Last administered on 22:17; Admin Dose 5 MG; Start 11/19/16 at 21:30 Lorazepam (Ativan) 1 mg Q6H PRN IV AGITATION/ANXIETY Last administered on 02:56; Admin Dose 1 MG; Start 11/21/16 at 21:15 Guaifenesin/ Codeine Phosphate (Robitussin Ac Liquid Cup) 5 ml Q4H PRN PO COUGH Last administered on 12/14/16 03:48; Admin Dose 5 ML; Start 11/21/16 at 21: 30 Pantoprazole (Protonix Iv) 40 mg BID@06,18 IV Last administered on 12/19/16 05: 43; Admin Dose 40 MG; Start 12/02/16 at 18:00 Sucralfate (Carafate) 1 gm QID PO Last administered on 12/19/16 12:43; Admin Dose 1 GM; Start 12/03/16 at 17:00 Insulin Detemir (Levemir) 30 unit QHS@20 SC Last administered on 12/18/16 20:50 ; Admin Dose 30 UNIT; Start 12/12/16 at 20:00 Sodium Chloride (Deep Sea) 1 spray Q2H PRN NASAL NASAL CONGESTION Last administered on 12/13/16 04:56; Admin Dose 1 SPRAY; Start 12/12/16 at 21:30 Apixaban (Eliquis) 5 mg BID PO Last administered on 12/18/16 09:45; Admin Dose 5 MG; Start 12/13/16 at 21:00; Status Future Hold Albuterol (Ventolin Hfa) 2 puff Q2H PRN INH SHORTNESS OF BREATH Last administered on 12/19/16 12:44; Admin Dose 2 PUFF; Start 12/15/16 at 21:15 Morphine Sulfate (morphine) 2 mg Q3H PRN IV for pain Last administered on 13:06; Admin Dose 2 MG; Start 12/18/16 at 12:00 STEFAN MUNSON Dec 19, 2016 13:15
[2016-12-19] MEDS ORDERED: POTASSIUM PHOSPHATE 15 MM in SOD CHLORIDE 0.9% 250 ML IVPB ONE (15:00)
[2016-12-19 16:01] VITALS: BP 122/61; RESP 19
--- NOTE | 2016-12-19 17:56 | CONS ---
Date/Time of Note Date/Time of Note DATE: 12/19/16 TIME: 17:52 Assessment/Plan Assessment/Plan Chief Complaint/Hosp Course ID PROGRESS NOTE ABX DAY => OFF ABX DAY #7 S/P TOTAL ABX DAYS #30 s/p ABX from 11/11/16 - 12/11/16 s/p Vancomycin IV s/p Meropenem + others 24H INTERVAL SUMMARY * A/A/O -> doing well remains on HD and Clinitron pressure reducing -- DC planning process held up with securing transportation & placement with HD and Cl[facility]ron bed * No complaints offered PHYSICAL EXAMINATION: GENERAL: VSS, NAD, no fever, obese F HEENT: Unremarkable NECK: Trach midline CHEST: Equal chest rise bilaterally, without dyspnea on observation HEART: Pulse RRR ABDOMEN: Soft, left flank pain EXTREMITIES: Warm SKIN: Warm, dry, edema BLEXT w/wound vac ID ASSESSMENT: 61 yo super morbid obese F admitted with: 1. Acute encephalopathy, likely toxic metabolic => RESOLVED * Suspect underlying Psych DX NOS 2. Bilateral lower extremities chronic venous stasis with chronic cellulitis and left hip wound, s/p debridement and wound vac application 10/19/16. 3. End-stage renal disease, on hemodialysis. * Left upper extremity AV fistula 4. Healthcare associated pneumonia, possibly aspiration = Clinically improved - Completed lengthy course IV ABX 5. Atrial fibrillation. 6. COPD - stable 7. Diabetes 8. Hx of falls -> limited mobility due to super morbid obesity 9. Anemia-> managed by primary ABX ALLERGIES: PCN, CIPRO CURRENT ABX: => OFF ABX DAY #7 S/P TOTAL ABX DAYS #30 s/p ABX from 11/11/16 - 12/11/16 s/p Vancomycin IV s/p Meropenem + others ID RECOMMENDATIONS: 1. Patient has completed 30 days of IV ABX for PNA and wounds -> She is OFF ABX and stable DAY #7 2. Continue local wound care & off load pressure 4. May DC or TNS OFF ABX * DC planning process held up with securing transportation & placement with HD and Clinitron bed * . Problems: Consultation Date/Type/Reason Admit Date/Time Nov 11, 2016 at 06:40 Initial Consult Date 11/12/16 Type of Consultation: ID Referring Provider: RAHI,ERICK S. Exam/Review of Systems Vital Signs Vitals Vital Signs Date Time Temp Pulse Resp B/P Pulse Ox O2 Delivery O2 Flow Rate FiO2 12/19/16 16:01 97.4 93 19 122/61 93 12/19/16 09:11 3.0 12/19/16 08:00 Nasal Cannula Intake and Output 12/18/16 12/18/16 12/19/16 15:00 23:00 07:00 Intake Total 500 ml 620 ml 1260 ml Output Total 2500 ml Balance -2000 ml 620 ml 1260 ml Results Result Diagram: 12/19/16 1045 12/19/16 1045 Results 24 hrs Laboratory Tests Test 12/18/16 20:47 12/19/16 00:45 12/19/16 07:46 12/19/16 09:35 Bedside Glucose 102 104 Stool Occult Blood POSITIVE Lab Scanned Report BLOOD TRANSFUSION Test 12/19/16 10:45 12/19/16 12:35 12/19/16 17:10 White Blood Count 9.4 Red Blood Count 3.26 L Hemoglobin 8.8 #L Hematocrit 28.6 #L Mean Corpuscular Volume 87.7 Mean Corpuscular Hemoglobin 27.0 L Mean Corpuscular Hemoglobin Concent 30.8 L Red Cell Distribution Width 19.2 H Platelet Count 371 Mean Platelet Volume 9.3 Neutrophils % 64.8 Lymphocytes % 13.2 L Monocytes % 13.6 H Eosinophils % 5.0 Basophils % 0.8 Nucleated Red Blood Cells % 0.3 H Neutrophils # 6.1 Lymphocytes # 1.3 Monocytes # 1.3 H Eosinophils # 0.5 Basophils # 0.1 Nucleated Red Blood Cells # 0.0 Sodium Level 139 Potassium Level 3.8 Chloride Level 95 L Carbon Dioxide Level 30 Anion Gap 18 H Blood Urea Nitrogen 26 H Creatinine 3.21 H Glucose Level 97 Calcium Level 10.2 Phosphorus Level 2.0 L Magnesium Level 2.1 Bedside Glucose 100 102 Medications Medications Current Medications Amlodipine Besylate (Norvasc) 5 mg DAILY PO Last administered on 12/19/16 09:54 ; Admin Dose 5 MG; Start 11/11/16 at 09:30 Aspirin (Aspirin) 81 mg DAILY PO Last administered on 12/19/16 09:49; Admin Dose 81 MG; Start 11/11/16 at 09:30 Atorvastatin Calcium (Lipitor) 40 mg QHS PO Last administered on 12/18/16 20:51 ; Admin Dose 40 MG; Start 11/11/16 at 21:00 Benzonatate (Tessalon) 100 mg Q6 PO Last administered on 12/19/16 17:05; Admin Dose 100 MG; Start 11/11/16 at 12:00 Carisoprodol (Soma) 350 mg Q8 PRN PO MUSCLE SPASMS Last administered on 03:54; Admin Dose 350 MG; Start 11/11/16 at 12:00 Cinacalcet (Sensipar) 30 mg DAILY PO Last administered on 12/19/16 09:54; Admin Dose 30 MG; Start 11/11/16 at 11:00 Furosemide (Lasix) 80 mg DAILY PO Last administered on 12/19/16 09:54; Admin Dose 80 MG; Start 11/11/16 at 09:30 Losartan Potassium (Cozaar) 50 mg BID PO Last administered on 12/19/16 09:53; Admin Dose 50 MG; Start 11/11/16 at 09:30 Metoprolol Succinate (Toprol Xl) 50 mg BID PO Last administered on 12/19/16 09: 54; Admin Dose 50 MG; Start 11/11/16 at 09:30 Montelukast Sodium (Singulair) 10 mg QAM PO Last administered on 12/19/16 09:54 ; Admin Dose 10 MG; Start 11/11/16 at 11:00 Oxycodone/ Acetaminophen (Endocet (10/ 325)) 1 tab Q6 PRN PO PRN Last administered on 12/18/16 04:00; Admin Dose 1 TAB; Start 11/11/16 at 12:00 Pyridoxine HCl (Vitamin B6) 50 mg DAILY PO Last administered on 12/19/16 09:54 ; Admin Dose 50 MG; Start 11/11/16 at 09:30 Tiotropium [place] (Spiriva) 1 inh DAILY INH Last administered on 12/19/16 09: 49; Admin Dose 1 INH; Start 11/11/16 at 11:00 Ondansetron HCl (Zofran Tab) 4 mg Q6H PRN PO NAUSEA AND/OR VOMITING Last administered on 11/22/16 08:46; Admin Dose 4 MG; Start 11/11/16 at 10:00 Salmeterol Xinafoate/ Fluticasone (Advair 250/50 Diskus) 1 inh BID INH Last administered on 12/19/16 09:48; Admin Dose 1 INH; Start 11/11/16 at 11:00 Epoetin Hang (Epogen (Esrd)) 10,000 units TuThSa@17 SC Last administered on 12/18 17:27; Admin Dose 10,000 UNITS; Start 11/11/16 at 17:00 Collagenase (Santyl) 1 applic DAILY TOP Last administered on 12/17/16 08:57; Admin Dose 1 APPLIC; Start 11/13/16 at 09:00 Diagnostic Test (Pha) (Accu-Chek) 1 ea 02 XX Last administered on 12/12/16 02: 00; Admin Dose 1 EA; Start 11/14/16 at 02:00 Nicotine (Nicoderm 21 Mg/ 24hr) 1 patch DAILY TRANSDERM Last administered on 09:55; Admin Dose 1 PATCH; Start 11/14/16 at 20:00 Docusate Sodium (Colace) 100 mg Q12H PO Last administered on 12/18/16 09:45; Admin Dose 100 MG; Start 11/16/16 at 22:00 Miscellaneous Information 1 ea NOTE XX ; Start 11/17/16 at 11:30 Glucose (Glutose) 15 gm Q15M PRN PO DECREASED GLUCOSE; Start 11/17/16 at 11:30 Glucose (Glutose) 22.5 gm Q15M PRN PO DECREASED GLUCOSE; Start 11/17/16 at 11:30 Dextrose (D50w Syringe) 25 ml Q15M PRN IV DECREASED GLUCOSE; Start 11/17/16 at 11:30 Dextrose (D50w Syringe) 50 ml Q15M PRN IV DECREASED GLUCOSE; Start 11/17/16 at 11:30 Glucagon (Glucagen) 1 mg Q15M PRN IM DECREASED GLUCOSE; Start 11/17/16 at 11:30 Glucose (Glutose) 15 gm Q15M PRN BUCCAL DECREASED GLUCOSE; Start 11/17/16 at 11: 30 Polyethylene Glycol (Miralax) 17 gm BID PO Last administered on 12/16/16 09:15 ; Admin Dose 17 GM; Start 11/17/16 at 12:00 Bisacodyl (Dulcolax) 10 mg DAILY PRN PO CONSTIPATION; Start 11/17/16 at 11:30 Diltiazem HCl (Cardizem Cd) 120 mg BID PO Last administered on 12/19/16 09:53; Admin Dose 120 MG; Start 11/19/16 at 21:00 Zolpidem Tartrate (Ambien) 5 mg HS PRN PO INSOMNIA Last administered on 22:17; Admin Dose 5 MG; Start 11/19/16 at 21:30 Lorazepam (Ativan) 1 mg Q6H PRN IV AGITATION/ANXIETY Last administered on 02:56; Admin Dose 1 MG; Start 11/21/16 at 21:15 Guaifenesin/ Codeine Phosphate (Robitussin Ac Liquid Cup) 5 ml Q4H PRN PO COUGH Last administered on 12/14/16 03:48; Admin Dose 5 ML; Start 11/21/16 at 21: 30 Pantoprazole (Protonix Iv) 40 mg BID@06,18 IV Last administered on 12/19/16 17: 05; Admin Dose 40 MG; Start 12/02/16 at 18:00 Sucralfate (Carafate) 1 gm QID PO Last administered on 12/19/16 17:05; Admin Dose 1 GM; Start 12/03/16 at 17:00 Insulin Detemir (Levemir) 30 unit QHS@20 SC Last administered on 12/18/16 20:50 ; Admin Dose 30 UNIT; Start 12/12/16 at 20:00 Sodium Chloride (Deep Sea) 1 spray Q2H PRN NASAL NASAL CONGESTION Last administered on 12/13/16 04:56; Admin Dose 1 SPRAY; Start 12/12/16 at 21:30 Apixaban (Eliquis) 5 mg BID PO Last administered on 12/18/16 09:45; Admin Dose 5 MG; Start 12/13/16 at 21:00; Status Future Hold Albuterol (Ventolin Hfa) 2 puff Q2H PRN INH SHORTNESS OF BREATH Last administered on 12/19/16 12:44; Admin Dose 2 PUFF; Start 12/15/16 at 21:15 Morphine Sulfate 2 mg 2 mg Q3H PRN IV for pain Last administered on 12/19/16 16 :38; Admin Dose 2 MG; Start 12/18/16 at 12:00 Potassium Phosphate/Sodium Chloride (K Phos (Mm)/NS) 255 ml @ 63.75 mls/ hr ONCE ONCE IVPB Last administered on 12/19/16t 16:07; Admin Dose 63.75 MLS/HR; Start 12/19/16 at 15:00; Stop 12/19/16 at 18:59 STEFAN COMBS NP Dec 19, 2016 17:56
[2016-12-19] MEDS: CARISOPRODOL 350 MG TAB PO PRN (18:38)
--- NOTE | 2016-12-19 19:18 | PN ---
Date/Time of Note Date/Time of Note DATE: 12/19/16 TIME: 19:05 Assessment/Plan Lines/Catheters IV Catheter Type (from [facility]): Saline Lock Whitaker in Place (from [facility]): No Assessment/Plan Chief Complaint/Hosp Course 1. Bilateral upper thighs and right flank wounds: 2/2 pressure from immobility; atherosclerosis but not flow limiting per vascular; left thigh s/p wound vac -debridement and tissue biopsy -local wound care -offloading and turning frequently -specialty mattress -vitamin c short term zinc 2. PNA: s/p abx -pulmonary toilet 3. Venous stasis dermatitis 4. Diabetes -blood sugar optimization 5. Falls -PT -fall precautions 6. Morbidly Obese -diet and physical modification 7. ESRD with HD -per nephro 8. Normocytic anemia: no acute bleed noted; asymptomatic; s/p transfusion -monitor 9. Esophagitis: no acute bleed -medical management 10. Hypercalcemia Patient seen and examined in collaboration with Dr. Kenney Forrester. Thank you. Problems: Subjective 24 Hr Interval Summary Pending wound debridement and tissue biopsy. s/p blood transfusion and HD. Feels ok. Very anxious; yelling intermittently. Right thigh wound without drainage. No fevers, chills, cp, palpitations, n/v/d/dysuria, sexton, dizziness. Exam/Review of Systems Vital Signs Vitals Vital Signs Date Time Temp Pulse Resp B/P Pulse Ox O2 Delivery O2 Flow Rate FiO2 12/19/16 16:01 97.4 93 19 122/61 93 12/19/16 09:11 3.0 12/19/16 08:00 Nasal Cannula Intake and Output 12/18/16 12/18/16 12/19/16 15:00 23:00 07:00 Intake Total 500 ml 620 ml 1260 ml Output Total 2500 ml Balance -2000 ml 620 ml 1260 ml Exam Free Text/Dictation Constitutional: alert, oriented, somnolent currently Psych: anxiety, intermittenly screaming No nl mood/affect: labile Head: atraumatic, normocephalic Eyes: nl lids, nl sclera ENMT: No nl lips & teeth (missing teeth) Neck: non-tender, supple Respiratory: diminished Cardiovascular: regular rate and rhythm Gastrointestinal: non-tender, other (obese), soft Musculoskeletal: muscle weakness, No nl gait and stance Extremities: No edema, No normal pulses Neurological: nl speech, nl Skin: other (wounds: Right thigh/trochanter area with areas of necrotic tissue and slough, no drainage, periwound erythema an induration; left thigh: wound bed with slough, no drainage) Results Result Diagram: 12/19/16 1045 12/19/16 1045 JUSTIN FOX NP Dec 19, 2016 19:16
[2016-12-19] MEDS: INSULIN DETEMIR [LEVEMIR] 3ML CART SC SCH (20:03)
[2016-12-19 21:45] VITALS: BP 165/68; RESP 16
[2016-12-19] MEDS: ATORVASTATIN 40 MG TAB PO SCH (21:46)
[2016-12-19] MEDS: ZOLPIDEM 5 MG TAB PO PRN (22:29)
[2016-12-19] MEDS: LORAZEPAM 2 MG INJ IV PRN (23:38)
[2016-12-20] MEDS: ALBUTEROL 18 GM INHALER INH PRN ×2 (00:16→21:38)
[2016-12-20] MEDS: ALBUTEROL/IPRATROPIUM (NEB) 3 ML AMP HHN PRN (00:24)
[2016-12-20] MEDS: ACCU-CHEK XX SCH (02:00)
[2016-12-20 02:31] VITALS: BP 142/64; RESP 16
[2016-12-20] MEDS: morphine 2 MG INJ IV PRN ×2 (02:44→17:44)
[2016-12-20] MEDS: OXYCODONE/ACETAMINOPHEN (10/325) TAB PO PRN (03:33)
[2016-12-20 05:33] LABS: BASOPHIL # 0.1 10^3/ul (0.0-0.1); BASOPHILS % 0.9 % (0.0-2.0); EOSINOPHILS # 0.5 10^3/ul (0.0-0.5); EOSINOPHILS % 5.7 % (0.0-7.0); HEMATOCRIT 27.3 % (37.0-47.0); HEMOGLOBIN 8.6 g/dl (12.0-16.0); LYMPHOCYTES # 1.4 10^3/ul (0.8-2.9); LYMPHOCYTES % 15.3 % (15.0-51.0); MEAN CORPUSCULAR HGB CONC 31.5 g/dl (32.0-37.0); MEAN CORPUSCULAR VOLUME 88.9 fl (82.0-101.0); MEAN PLATELET VOLUME 9.3 fl (7.4-10.4); MONOCYTE # 1.3 10^3/ul (0.3-0.9); NEUTROPHIL # 5.7 10^3/ul (1.6-7.5); NEUTROPHILS % 62.3 % (39.0-77.0); NUCLEATED RED BLOOD CELLS% 0.2 /100WBC (0.0-0.0); PLATELET COUNT 352 10^3/UL (140-415); RED BLOOD COUNT 3.07 10^6/ul (4.20-5.40); RED CELL DISTRIBUTION WIDTH 19.4 % (11.5-14.5); WHITE BLOOD COUNT 9.2 10^3/ul (4.8-10.8)
[2016-12-20] MEDS: PANTOPRAZOLE 40 MG INJ IV SCH ×2 (06:45→17:44)
[2016-12-20] MEDS: BENZONATATE 100 MG CAP PO SCH ×4 (06:45→23:44)
[2016-12-20] MEDS: INSULIN ASPART [NOVOLOG] 3 ML PEN SC SCH ×4 (08:00→21:00)
[2016-12-20 08:10] VITALS: BP 113/64; RESP 16
[2016-12-20] MEDS: PYRIDOXINE 50 MG TAB PO SCH (08:42)
[2016-12-20] MEDS: DILTIAZEM (CD) 120 MG CAP PO SCH ×2 (08:42→21:30)
[2016-12-20] MEDS: SALMETEROL/FLUTICASONE 250/50 INHA INH SCH ×2 (08:42→21:25)
[2016-12-20] MEDS: ASPIRIN 81 MG TAB PO SCH (08:42)
[2016-12-20] MEDS: AMLODIPINE 5 MG TAB PO SCH (08:42)
[2016-12-20] MEDS: NICOTINE (21 MG/24 HR) PATCH TRANSDERM SCH (08:42)
[2016-12-20] MEDS: MONTELUKAST 10 MG TAB PO SCH (08:43)
[2016-12-20] MEDS: SUCRALFATE 1 GM TAB PO SCH ×4 (08:43→21:29)
[2016-12-20] MEDS: METOPROLOL (XL) 50 MG TAB PO SCH ×2 (08:43→21:31)
[2016-12-20] MEDS: LOSARTAN 50 MG TAB PO SCH ×2 (08:43→21:30)
[2016-12-20] MEDS: CALCIUM ACETATE 667 MG CAP PO SCH ×3 (08:43→17:45)
[2016-12-20] MEDS: METOCLOPRAMIDE 5 MG TAB PO SCH ×3 (08:43→17:44)
[2016-12-20] MEDS: COLLAGENASE 30 GM TUBE TOP SCH (08:44)
[2016-12-20] MEDS: FUROSEMIDE 40 MG TAB PO SCH (08:44)
--- NOTE | 2016-12-20 09:29 | PN ---
Date/Time of Note Date/Time of Note DATE: 12/20/16 TIME: 09:25 Assessment/Plan Lines/Catheters IV Catheter Type (from [facility]): Saline Lock Whitaker in Place (from [facility]): No Assessment/Plan Chief Complaint/Hosp Course 1. Bilateral upper thighs and right flank wounds: 2/2 pressure from immobility; atherosclerosis but not flow limiting per vascular; left thigh s/p wound vac -debridement and tissue biopsy -local wound care -offloading and turning frequently -specialty mattress -vitamin c short term zinc 2. PNA: s/p abx -pulmonary toilet 3. Venous stasis dermatitis 4. Diabetes -blood sugar optimization 5. Falls -PT -fall precautions 6. Morbidly Obese -diet and physical modification 7. ESRD with HD -per nephro 8. Normocytic anemia: no acute bleed noted; asymptomatic; s/p transfusion -monitor 9. Esophagitis: no acute bleed -medical management 10. Hypercalcemia 11. Hypertension -eventual weight loss -medical management Patient seen and examined in collaboration with Dr. Kenney Forrester. Thank you. Problems: Subjective 24 Hr Interval Summary Intermittent left leg discomfort. Pending excisional debridement and biopsy. No drainage from wounds. labile blood pressure. +bowel function. No fevers, chills , sexton, dizziness, cp, palpitations, n/v/d/dysuria. Exam/Review of Systems Vital Signs Vitals Vital Signs Date Time Temp Pulse Resp B/P Pulse Ox O2 Delivery O2 Flow Rate FiO2 12/20/16 08:10 97.6 82 16 113/64 97 12/20/16 00:40 5.0 12/19/16 19:50 Nasal Cannula Intake and Output 12/19/16 12/19/16 12/20/16 15:00 23:00 07:00 Intake Total 1175 ml 480 ml Balance 1175 ml 480 ml Exam Free Text/Dictation Constitutional: alert, oriented, somnolent currently Psych: anxiety, intermittenly screaming No nl mood/affect: labile Head: atraumatic, normocephalic Eyes: nl lids, nl sclera ENMT: No nl lips & teeth (missing teeth) Neck: non-tender, supple Respiratory: diminished Cardiovascular: regular rate and rhythm Gastrointestinal: non-tender, other (obese), soft Musculoskeletal: muscle weakness, No nl gait and stance Extremities: No edema, No normal pulses Neurological: nl speech, nl Skin: other (wounds: Right thigh/trochanter area with areas of necrotic tissue and slough, no drainage, periwound erythema an induration; left thigh: wound bed with slough, no drainage) Results Result Diagram: 12/20/16 0450 12/19/16 1045 JUSTIN FOX NP Dec 20, 2016 09:29
[2016-12-20] MEDS: DOCUSATE SODIUM 100 MG CAP PO SCH ×2 (10:00→22:00)
[2016-12-20] MEDS: CINACALCET 30 MG TAB PO SCH (10:03)
[2016-12-20] MEDS: TIOTROPIUM 18 MCG CAPSULE INHA DEV INH SCH (10:03)
--- NOTE | 2016-12-20 16:25 | PN ---
Date/Time of Note Date/Time of Note DATE: 12/20/16 TIME: 16:23 Assessment/Plan VTE Prophylaxis VTE Prophylaxis Intervention: SCD's Lines/Catheters IV Catheter Type (from [facility]rs): Saline Lock Urinary Cath still in place: No Assessment/Plan Assessment/Plan Debility Left lower extremity thigh area ulcer, with wound VAC GI bleed gastritis, erosive Diabetes type 2 End-stage renal disease, on dialysis Pneumonia Obesity Dyslipidemia Diabetic foot ulcers Bilateral lower extremity chronic venous stasis ulcers Chronic cellulitis Left hip wound Coronary artery disease Hypertension Atrial fibrillation Lower extremity edema Insomnia Plan -protonix bid per GI, EGD done last week showed erosive gastritis, GI okay to restart eliquis for a-fib, however after a few days, patient hgb dropped again. transfused, but holding eliquis for now. -Patient has multiple medical conditions, continue chronic care -s/p removal of wound vac, G Surg Usama has been following -continue home medications as able -As needed medications for pain -continue HD for ESRD.on TTS DISPO: pt gets HD on TTS today c/o severe back pain and SOB, will arrange HD , D /c TO SNF on tuesday Subjective 24 Hr Interval Summary Free Text/Dictation doing ok, BP stable, afebrile,. c/o severe back pain and nausea Exam/Review of Systems Vital Signs Vitals Vital Signs Date Time Temp Pulse Resp B/P Pulse Ox O2 Delivery O2 Flow Rate FiO2 12/20/16 13:31 Nasal Cannula 3.0 12/20/16 08:10 97.6 82 16 113/64 97 Intake and Output 12/19/16 12/19/16 12/20/16 15:00 23:00 07:00 Intake Total 1175 ml 480 ml Balance 1175 ml 480 ml Exam General: Patient is laying in bed and answers questions appropriately Mentation: Patient is alert and oriented 4, Head: Normocephalic atraumatic Eyes: EOMI, pupils reactive to light Neck: Supple, nontender, midline Respiratory:mildly course to auscultation bilaterally Cardiovascular: regular rate, no obvious murmurs Gastrointestinal: non-tender to palpation, bowel sounds heard. Neurological: Moves all extremities spontaneously Skin: multiple skin lesions on body. L hip wound. multiple LE ulcerations. R hip wound. Results Result Diagram: 12/20/16 0450 12/19/16 1045 Results 24 hrs Laboratory Tests Test 12/19/16 17:10 12/19/16 20:00 12/19/16 21:43 12/20/16 04:50 Bedside Glucose 102 111 108 White Blood Count 9.2 Red Blood Count 3.07 L Hemoglobin 8.6 L Hematocrit 27.3 L Mean Corpuscular Volume 88.9 Mean Corpuscular Hemoglobin 28.0 L Mean Corpuscular Hemoglobin Concent 31.5 L Red Cell Distribution Width 19.4 H Platelet Count 352 Mean Platelet Volume 9.3 Neutrophils % 62.3 Lymphocytes % 15.3 Monocytes % 14.0 H Eosinophils % 5.7 Basophils % 0.9 Nucleated Red Blood Cells % 0.2 H Neutrophils # 5.7 Lymphocytes # 1.4 Monocytes # 1.3 H Eosinophils # 0.5 Basophils # 0.1 Nucleated Red Blood Cells # 0.0 Test 12/20/16 08:03 12/20/16 12:02 Bedside Glucose 120 135 Medications Medications Current Medications Amlodipine Besylate (Norvasc) 5 mg DAILY PO Last administered on 12/20/16 08:42 ; Admin Dose 5 MG; Start 11/11/16 at 09:30 Aspirin (Aspirin) 81 mg DAILY PO Last administered on 12/20/16 08:42; Admin Dose 81 MG; Start 11/11/16 at 09:30 Atorvastatin Calcium (Lipitor) 40 mg QHS PO Last administered on 12/19/16 21:46 ; Admin Dose 40 MG; Start 11/11/16 at 21:00 Benzonatate (Tessalon) 100 mg Q6 PO Last administered on 12/20/16 12:06; Admin Dose 100 MG; Start 11/11/16 at 12:00 Carisoprodol (Soma) 350 mg Q8 PRN PO MUSCLE SPASMS Last administered on 18:38; Admin Dose 350 MG; Start 11/11/16 at 12:00 Cinacalcet (Sensipar) 30 mg DAILY PO Last administered on 12/20/16 10:03; Admin Dose 30 MG; Start 11/11/16 at 11:00 Furosemide (Lasix) 80 mg DAILY PO Last administered on 12/20/16 08:44; Admin Dose 80 MG; Start 11/11/16 at 09:30 Losartan Potassium (Cozaar) 50 mg BID PO Last administered on 12/20/16 08:43; Admin Dose 50 MG; Start 11/11/16 at 09:30 Metoprolol Succinate (Toprol Xl) 50 mg BID PO Last administered on 12/20/16 08: 43; Admin Dose 50 MG; Start 11/11/16 at 09:30 Montelukast Sodium (Singulair) 10 mg QAM PO Last administered on 12/20/16 08:43 ; Admin Dose 10 MG; Start 11/11/16 at 11:00 Oxycodone/ Acetaminophen (Endocet (10 325)) 1 tab Q6 PRN PO PRN Last administered on 12/20/16 03:33; Admin Dose 1 TAB; Start 11/11/16 at 12:00 Pyridoxine HCl (Vitamin B6) 50 mg DAILY PO Last administered on 12/20/16 08:42 ; Admin Dose 50 MG; Start 11/11/16 at 09:30 Tiotropium [place] (Spiriva) 1 inh DAILY INH Last administered on 12/20/16 10: 03; Admin Dose 1 INH; Start 11/11/16 at 11:00 Ondansetron HCl (Zofran Tab) 4 mg Q6H PRN PO NAUSEA AND/OR VOMITING Last administered on 11/22/16 08:46; Admin Dose 4 MG; Start 11/11/16 at 10:00 Salmeterol Xinafoate/ Fluticasone (Advair 250/50 Diskus) 1 inh BID INH Last administered on 12/20/16 08:42; Admin Dose 1 INH; Start 11/11/16 at 11:00 Epoetin Hang (Epogen (Esrd)) 10,000 units TuThSa@17 SC Last administered on 12/18 17:27; Admin Dose 10,000 UNITS; Start 11/11/16 at 17:00 Collagenase (Santyl) 1 applic DAILY TOP Last administered on 12/17/16 08:57; Admin Dose 1 APPLIC; Start 11/13/16 at 09:00 Diagnostic Test (Pha) (Accu-Chek) 1 ea 02 XX Last administered on 12/12/16 02: 00; Admin Dose 1 EA; Start 11/14/16 at 02:00 Nicotine (Nicoderm 21 Mg/ 24hr) 1 patch DAILY TRANSDERM Last administered on 08:42; Admin Dose 1 PATCH; Start 11/14/16 at 20:00 Docusate Sodium (Colace) 100 mg Q12H PO Last administered on 12/19/16 21:46; Admin Dose 100 MG; Start 11/16/16 at 22:00 Miscellaneous Information 1 ea NOTE XX ; Start 11/17/16 at 11:30 Glucose (Glutose) 15 gm Q15M PRN PO DECREASED GLUCOSE; Start 11/17/16 at 11:30 Glucose (Glutose) 22.5 gm Q15M PRN PO DECREASED GLUCOSE; Start 11/17/16 at 11:30 Dextrose (D50w Syringe) 25 ml Q15M PRN IV DECREASED GLUCOSE; Start 11/17/16 at 11:30 Dextrose (D50w Syringe) 50 ml Q15M PRN IV DECREASED GLUCOSE; Start 11/17/16 at 11:30 Glucagon (Glucagen) 1 mg Q15M PRN IM DECREASED GLUCOSE; Start 11/17/16 at 11:30 Glucose (Glutose) 15 gm Q15M PRN BUCCAL DECREASED GLUCOSE; Start 11/17/16 at 11: 30 Polyethylene Glycol (Miralax) 17 gm BID PO Last administered on 12/19/16 21:47 ; Admin Dose 17 GM; Start 11/17/16 at 12:00 Bisacodyl (Dulcolax) 10 mg DAILY PRN PO CONSTIPATION; Start 11/17/16 at 11:30 Diltiazem HCl (Cardizem Cd) 120 mg BID PO Last administered on 12/20/16 08:42; Admin Dose 120 MG; Start 11/19/16 at 21:00 Zolpidem Tartrate (Ambien) 5 mg HS PRN PO INSOMNIA Last administered on 22:29; Admin Dose 5 MG; Start 11/19/16 at 21:30 Lorazepam (Ativan) 1 mg Q6H PRN IV AGITATION/ANXIETY Last administered on 23:38; Admin Dose 1 MG; Start 11/21/16 at 21:15 Guaifenesin/ Codeine Phosphate (Robitussin Ac Liquid Cup) 5 ml Q4H PRN PO COUGH Last administered on 12/14/16 03:48; Admin Dose 5 ML; Start 11/21/16 at 21: 30 Pantoprazole (Protonix Iv) 40 mg BID@06,18 IV Last administered on 12/20/16 06: 45; Admin Dose 40 MG; Start 12/02/16 at 18:00 Sucralfate (Carafate) 1 gm QID PO Last administered on 12/20/16 12:06; Admin Dose 1 GM; Start 12/03/16 at 17:00 Insulin Detemir (Levemir) 30 unit QHS@20 SC Last administered on 12/19/16 20:03 ; Admin Dose 30 UNIT; Start 12/12/16 at 20:00 Sodium Chloride (Deep Sea) 1 spray Q2H PRN NASAL NASAL CONGESTION Last administered on 12/13/16 04:56; Admin Dose 1 SPRAY; Start 12/12/16 at 21:30 Apixaban (Eliquis) 5 mg BID PO Last administered on 12/18/16 09:45; Admin Dose 5 MG; Start 12/13/16 at 21:00; Status Future Hold Albuterol (Ventolin Hfa) 2 puff Q2H PRN INH SHORTNESS OF BREATH Last administered on 12/20/16 00:16; Admin Dose 2 PUFF; Start 12/15/16 at 21:15 Morphine Sulfate (morphine) 2 mg Q3H PRN IV for pain Last administered on 02:44; Admin Dose 2 MG; Start 12/18/16 at 12:00 SUMMER SANCHEZ MD Dec 20, 2016 16:25
[2016-12-20 20:00] VITALS: BP 125/65; RESP 19
[2016-12-20] MEDS: POLYETHYLENE GLYCOL 17 GM PACKET PO SCH (21:00)
[2016-12-20] MEDS: INSULIN DETEMIR [LEVEMIR] 3ML CART SC SCH (21:27)
[2016-12-20] MEDS: ATORVASTATIN 40 MG TAB PO SCH (21:30)
[2016-12-20] MEDS: ZOLPIDEM 5 MG TAB PO PRN (22:48)
[2016-12-20] MEDS: LORAZEPAM 2 MG INJ IV PRN (23:44)
[2016-12-21] VITALS (19 sets, daily range): BP systolic 88–142; BP diastolic 48–70; PULSE 63–90; RESP 15–21
[2016-12-21] MEDS: ACCU-CHEK XX SCH (02:00)
[2016-12-21] MEDS: morphine 2 MG INJ IV PRN ×2 (03:47→09:12)
[2016-12-21] MEDS: BENZONATATE 100 MG CAP PO SCH ×4 (05:21→23:29)
[2016-12-21] MEDS: PANTOPRAZOLE 40 MG INJ IV SCH ×2 (05:21→17:34)
[2016-12-21] MEDS: METOCLOPRAMIDE 5 MG TAB PO SCH ×3 (06:31→17:23)
[2016-12-21] MEDS: ALBUTEROL 18 GM INHALER INH PRN ×2 (06:43→09:20)
[2016-12-21] MEDS: CALCIUM ACETATE 667 MG CAP PO SCH (07:35)
[2016-12-21] MEDS: INSULIN ASPART [NOVOLOG] 3 ML PEN SC SCH ×4 (08:00→21:55)
[2016-12-21] MEDS: SALMETEROL/FLUTICASONE 250/50 INHA INH SCH ×2 (08:49→21:56)
[2016-12-21] MEDS: TIOTROPIUM 18 MCG CAPSULE INHA DEV INH SCH (08:50)
[2016-12-21] MEDS: ASPIRIN 81 MG TAB PO SCH ×2 (08:52→09:00)
[2016-12-21] MEDS: SUCRALFATE 1 GM TAB PO SCH ×5 (08:52→21:52)
[2016-12-21] MEDS: FUROSEMIDE 40 MG TAB PO SCH (08:53)
[2016-12-21] MEDS: DILTIAZEM (CD) 120 MG CAP PO SCH ×2 (08:53→21:52)
[2016-12-21] MEDS: POLYETHYLENE GLYCOL 17 GM PACKET PO SCH ×2 (08:53→21:00)
[2016-12-21] MEDS: LOSARTAN 50 MG TAB PO SCH ×2 (08:53→21:52)
[2016-12-21] MEDS: AMLODIPINE 5 MG TAB PO SCH (08:54)
[2016-12-21] MEDS: PYRIDOXINE 50 MG TAB PO SCH (08:55)
[2016-12-21] MEDS: MONTELUKAST 10 MG TAB PO SCH (08:55)
[2016-12-21] MEDS: CINACALCET 30 MG TAB PO SCH (08:55)
[2016-12-21] MEDS: METOPROLOL (XL) 50 MG TAB PO SCH ×2 (08:55→21:53)
[2016-12-21] MEDS: NICOTINE (21 MG/24 HR) PATCH TRANSDERM SCH ×2 (08:56→23:40)
[2016-12-21] MEDS: COLLAGENASE 30 GM TUBE TOP SCH ×2 (08:58→09:00)
[2016-12-21] MEDS: DOCUSATE SODIUM 100 MG CAP PO SCH ×2 (09:11→22:00)
[2016-12-21] MEDS: LORAZEPAM 2 MG INJ IV PRN ×2 (11:56→23:29)
[2016-12-21 12:01] LABS: BASOPHIL # 0.1 10^3/ul (0.0-0.1); EOSINOPHILS # 0.6 10^3/ul (0.0-0.5); EOSINOPHILS % 5.8 % (0.0-7.0); HEMATOCRIT 28.2 % (37.0-47.0); HEMOGLOBIN 8.7 g/dl (12.0-16.0); LYMPHOCYTES # 1.3 10^3/ul (0.8-2.9); LYMPHOCYTES % 13.4 % (15.0-51.0); MEAN CORPUSCULAR HEMOGLOBIN 27.8 pg (29.0-33.0); MEAN CORPUSCULAR HGB CONC 30.9 g/dl (32.0-37.0); MEAN CORPUSCULAR VOLUME 90.1 fl (82.0-101.0); MEAN PLATELET VOLUME 9.5 fl (7.4-10.4); MONOCYTE # 1.2 10^3/ul (0.3-0.9); NEUTROPHIL # 6.1 10^3/ul (1.6-7.5); PLATELET COUNT 373 10^3/UL (140-415); RED BLOOD COUNT 3.13 10^6/ul (4.20-5.40); RED CELL DISTRIBUTION WIDTH 19.7 % (11.5-14.5); WHITE BLOOD COUNT 9.6 10^3/ul (4.8-10.8)
[2016-12-21 12:33] LABS: INR 1.39; PROTIME 17.1 Sec (12.2-14.2); PT RATIO 1.3
[2016-12-21 12:36] LABS: CREATININE 4.14 mg/dl (0.44-1.00); POTASSIUM 4.2 mmol/L (3.5-5.1)
[2016-12-21] MEDS ORDERED: ALBUMIN HUMAN 25% 100 ML IV ONE (13:00)
--- NOTE | 2016-12-21 16:00 | PN ---
Date/Time of Note Date/Time of Note DATE: 12/21/16 TIME: 15:54 Assessment/Plan Lines/Catheters IV Catheter Type (from [facility]): Saline Lock Whitaker in Place (from [facility]): No Assessment/Plan Chief Complaint/Hosp Course 1. Bilateral upper thighs and right flank wounds: 2/2 pressure from immobility; atherosclerosis but not flow limiting per vascular; left thigh s/p wound vac -debridement and tissue biopsy today -local wound care -offloading and turning frequently -specialty mattress -vitamin c short term zinc 2. PNA: s/p abx: non labored breathing, no cough -pulmonary toilet 3. Venous stasis dermatitis 4. Diabetes -blood sugar optimization 5. Falls -PT -fall precautions 6. Morbidly Obese -diet and physical modification 7. ESRD with HD today -per nephro 8. Normocytic anemia: no acute bleed noted; asymptomatic; s/p transfusion -monitor 9. Esophagitis: no acute bleed -medical management 10. Hypercalcemia 11. Hypertension -eventual weight loss -medical management Patient seen and examined in collaboration with Dr. Kenney Forrester. Thank you. Problems: Subjective 24 Hr Interval Summary Wound debridement today. No drainage from wound. HD today, tolerated well. Min discomfort. No fevers, chills, sob, cough, cp, palpitations, n/v/d. Exam/Review of Systems Vital Signs Vitals Vital Signs Date Time Temp Pulse Resp B/P Pulse Ox O2 Delivery O2 Flow Rate FiO2 12/21/16 14:33 98.4 92 20 104/58 98 12/20/16 23:25 5.0 12/20/16 23:24 Nasal Cannula Intake and Output 12/20/16 12/20/16 12/21/16 15:00 23:00 07:00 Intake Total 400 ml 300 ml Balance 400 ml 300 ml Exam Free Text/Dictation Constitutional: alert, oriented Psych: anxiety, intermittenly screaming No nl mood/affect: labile Head: atraumatic, normocephalic Eyes: nl lids, nl sclera ENMT: No nl lips & teeth (missing teeth) Neck: non-tender, supple Respiratory: diminished Cardiovascular: regular rate and rhythm Gastrointestinal: non-tender, other (obese), soft Musculoskeletal: muscle weakness, No nl gait and stance Extremities: No edema, No normal pulses Neurological: nl speech, nl Skin: other (wounds: Right thigh/trochanter area with areas of necrotic tissue and slough, no drainage, periwound erythema an induration; left thigh: wound bed with slough, no drainage; dressings intact) Results Result Diagram: 12/21/16 1120 12/21/16 1120 JUSTIN FOX NP Dec 21, 2016 16:00
--- NOTE | 2016-12-21 16:25 | PN ---
Date/Time of Note Date/Time of Note DATE: 12/21/16 TIME: 16:23 Assessment/Plan VTE Prophylaxis VTE Prophylaxis Intervention: SCD's Lines/Catheters IV Catheter Type (from [facility]): Saline Lock Urinary Cath still in place: No Assessment/Plan Assessment/Plan Debility Left lower extremity thigh area ulcer, with wound VAC GI bleed gastritis, erosive Diabetes type 2 End-stage renal disease, on dialysis Pneumonia Obesity Dyslipidemia Diabetic foot ulcers Bilateral lower extremity chronic venous stasis ulcers Chronic cellulitis Left hip wound Coronary artery disease Hypertension Atrial fibrillation Lower extremity edema Insomnia Plan -protonix bid per GI, EGD done last week showed erosive gastritis, GI okay to restart eliquis for a-fib, however after a few days, patient hgb dropped again. transfused, but holding eliquis for now. -Patient has multiple medical conditions, continue chronic care -s/p removal of wound vac, G Surg Usama has been following , plan for excisional debridement today -continue home medications as able -As needed medications for pain -continue HD for ESRD.on TTS - Plan for HD today DISPO: D/c to possible SNF tuesday if ID will have plan for abx in place Subjective 24 Hr Interval Summary Free Text/Dictation plan for excisional debridement, Pt is due for HD today Exam/Review of Systems Vital Signs Vitals Vital Signs Date Time Temp Pulse Resp B/P Pulse Ox O2 Delivery O2 Flow Rate FiO2 12/21/16 14:33 98.4 92 20 104/58 98 12/20/16 23:25 5.0 12/20/16 23:24 Nasal Cannula Intake and Output 12/20/16 12/20/16 12/21/16 15:00 23:00 07:00 Intake Total 400 ml 300 ml Balance 400 ml 300 ml Exam General: Patient is laying in bed and answers questions appropriately Mentation: Patient is alert and oriented 4, Head: Normocephalic atraumatic Eyes: EOMI, pupils reactive to light Neck: Supple, nontender, midline Respiratory:mildly course to auscultation bilaterally Cardiovascular: regular rate, no obvious murmurs Gastrointestinal: non-tender to palpation, bowel sounds heard. Neurological: Moves all extremities spontaneously Skin: multiple skin lesions on body. L hip wound. multiple LE ulcerations. R hip wound. Results Result Diagram: 12/21/16 1120 12/21/16 1120 Results 24 hrs Laboratory Tests Test 12/20/16 17:35 12/20/16 21:24 12/21/16 08:13 12/21/16 11:14 Bedside Glucose 147 150 140 Prothrombin Time 17.1 H Prothrombin Time Ratio 1.3 INR International Normalized Ratio 1.39 Test 12/21/16 11:20 12/21/16 11:47 White Blood Count 9.6 Red Blood Count 3.13 L Hemoglobin 8.7 L Hematocrit 28.2 L Mean Corpuscular Volume 90.1 Mean Corpuscular Hemoglobin 27.8 L Mean Corpuscular Hemoglobin Concent 30.9 L Red Cell Distribution Width 19.7 H Platelet Count 373 Mean Platelet Volume 9.5 Neutrophils % 64.0 Lymphocytes % 13.4 L Monocytes % 13.0 H Eosinophils % 5.8 Basophils % 1.0 Nucleated Red Blood Cells % 0.0 Neutrophils # 6.1 Lymphocytes # 1.3 Monocytes # 1.2 H Eosinophils # 0.6 H Basophils # 0.1 Nucleated Red Blood Cells # 0.0 Sodium Level 138 Potassium Level 4.2 Chloride Level 95 L Carbon Dioxide Level 31 Anion Gap 16 Blood Urea Nitrogen 38 H Creatinine 4.14 H Glucose Level 147 Calcium Level 11.0 H Bedside Glucose 167 Medications Medications Current Medications Amlodipine Besylate (Norvasc) 5 mg DAILY PO Last administered on 12/20/16 08:42 ; Admin Dose 5 MG; Start 11/11/16 at 09:30 Aspirin (Aspirin) 81 mg DAILY PO Last administered on 12/20/16 08:42; Admin Dose 81 MG; Start 11/11/16 at 09:30 Atorvastatin Calcium (Lipitor) 40 mg QHS PO Last administered on 12/20/16 21:30 ; Admin Dose 40 MG; Start 11/11/16 at 21:00 Benzonatate (Tessalon) 100 mg Q6 PO Last administered on 12/21/16 11:49; Admin Dose 100 MG; Start 11/11/16 at 12:00 Carisoprodol (Soma) 350 mg Q8 PRN PO MUSCLE SPASMS Last administered on 18:38; Admin Dose 350 MG; Start 11/11/16 at 12:00 Cinacalcet (Sensipar) 30 mg DAILY PO Last administered on 12/21/16 08:55; Admin Dose 30 MG; Start 11/11/16 at 11:00 Furosemide (Lasix) 80 mg DAILY PO Last administered on 12/20/16 08:44; Admin Dose 80 MG; Start 11/11/16 at 09:30 Losartan Potassium (Cozaar) 50 mg BID PO Last administered on 12/20/16 21:30; Admin Dose 50 MG; Start 11/11/16 at 09:30 Metoprolol Succinate (Toprol Xl) 50 mg BID PO Last administered on 12/20/16 21: 31; Admin Dose 50 MG; Start 11/11/16 at 09:30 Montelukast Sodium (Singulair) 10 mg QAM PO Last administered on 12/21/16 08:55 ; Admin Dose 10 MG; Start 11/11/16 at 11:00 Oxycodone/ Acetaminophen (Endocet (10/ 325)) 1 tab Q6 PRN PO PRN Last administered on 12/20/16 03:33; Admin Dose 1 TAB; Start 11/11/16 at 12:00 Pyridoxine HCl (Vitamin B6) 50 mg DAILY PO Last administered on 12/21/16 08:55 ; Admin Dose 50 MG; Start 11/11/16 at 09:30 Tiotropium [place] (Spiriva) 1 inh DAILY INH Last administered on 12/21/16 08: 50; Admin Dose 1 INH; Start 11/11/16 at 11:00 Ondansetron HCl (Zofran Tab) 4 mg Q6H PRN PO NAUSEA AND/OR VOMITING Last administered on 11/22/16 08:46; Admin Dose 4 MG; Start 11/11/16 at 10:00 Salmeterol Xinafoate/ Fluticasone (Advair 250/50 Diskus) 1 inh BID INH Last administered on 12/21/16 08:49; Admin Dose 1 INH; Start 11/11/16 at 11:00 Epoetin Hang (Epogen (Esrd)) 10,000 units TuThSa@17 SC Last administered on 12/18 17:27; Admin Dose 10,000 UNITS; Start 11/11/16 at 17:00 Collagenase (Santyl) 1 applic DAILY TOP Last administered on 12/17/16 08:57; Admin Dose 1 APPLIC; Start 11/13/16 at 09:00 Diagnostic Test (Pha) (Accu-Chek) 1 ea 02 XX Last administered on 12/12/16 02: 00; Admin Dose 1 EA; Start 11/14/16 at 02:00 Nicotine (Nicoderm 21 Mg/ 24hr) 1 patch DAILY TRANSDERM Last administered on 08:56; Admin Dose 1 PATCH; Start 11/14/16 at 20:00 Docusate Sodium (Colace) 100 mg Q12H PO Last administered on 12/19/16 21:46; Admin Dose 100 MG; Start 11/16/16 at 22:00 Miscellaneous Information 1 ea NOTE XX ; Start 11/17/16 at 11:30 Glucose (Glutose) 15 gm Q15M PRN PO DECREASED GLUCOSE; Start 11/17/16 at 11:30 Glucose (Glutose) 22.5 gm Q15M PRN PO DECREASED GLUCOSE; Start 11/17/16 at 11:30 Dextrose (D50w Syringe) 25 ml Q15M PRN IV DECREASED GLUCOSE; Start 11/17/16 at 11:30 Dextrose (D50w Syringe) 50 ml Q15M PRN IV DECREASED GLUCOSE; Start 11/17/16 at 11:30 Glucagon (Glucagen) 1 mg Q15M PRN IM DECREASED GLUCOSE; Start 11/17/16 at 11:30 Glucose (Glutose) 15 gm Q15M PRN BUCCAL DECREASED GLUCOSE; Start 11/17/16 at 11: 30 Polyethylene Glycol (Miralax) 17 gm BID PO Last administered on 12/19/16 21:47 ; Admin Dose 17 GM; Start 11/17/16 at 12:00 Bisacodyl (Dulcolax) 10 mg DAILY PRN PO CONSTIPATION; Start 11/17/16 at 11:30 Diltiazem HCl (Cardizem Cd) 120 mg BID PO Last administered on 12/20/16 21:30; Admin Dose 120 MG; Start 11/19/16 at 21:00 Zolpidem Tartrate (Ambien) 5 mg HS PRN PO INSOMNIA Last administered on 22:48; Admin Dose 5 MG; Start 11/19/16 at 21:30 Lorazepam (Ativan) 1 mg Q6H PRN IV AGITATION/ANXIETY Last administered on 11:56; Admin Dose 1 MG; Start 11/21/16 at 21:15 Guaifenesin/ Codeine Phosphate (Robitussin Ac Liquid Cup) 5 ml Q4H PRN PO COUGH Last administered on 12/14/16 03:48; Admin Dose 5 ML; Start 11/21/16 at 21: 30 Pantoprazole (Protonix Iv) 40 mg BID@06,18 IV Last administered on 12/21/16 05: 21; Admin Dose 40 MG; Start 12/02/16 at 18:00 Sucralfate (Carafate) 1 gm QID PO Last administered on 12/20/16 21:29; Admin Dose 1 GM; Start 12/03/16 at 17:00 Insulin Detemir (Levemir) 30 unit QHS@20 SC Last administered on 12/20/16 21:27 ; Admin Dose 30 UNIT; Start 12/12/16 at 20:00 Sodium Chloride (Deep Sea) 1 spray Q2H PRN NASAL NASAL CONGESTION Last administered on 12/13/16 04:56; Admin Dose 1 SPRAY; Start 12/12/16 at 21:30 Apixaban (Eliquis) 5 mg BID PO Last administered on 12/18/16 09:45; Admin Dose 5 MG; Start 12/13/16 at 21:00; Status Future Hold Albuterol (Ventolin Hfa) 2 puff Q2H PRN INH SHORTNESS OF BREATH Last administered on 12/21/16 09:20; Admin Dose 2 PUFF; Start 12/15/16 at 21:15 Morphine Sulfate (morphine) 2 mg Q3H PRN IV for pain Last administered on 09:12; Admin Dose 2 MG; Start 12/18/16 at 12:00 SUMMER SANCHEZ MD Dec 21, 2016 16:25
[2016-12-21] MEDS: EPOETIN 10000 UNITS/1 ML INJ (ESRD) SC SCH (17:23)
[2016-12-21] MEDS ORDERED: PROPOFOL 20 ML ONE (18:25)
[2016-12-21] MEDS ORDERED: MIDAZOLAM 1 MG/ML 2 ML INJ ONE (18:26)
[2016-12-21] MEDS ORDERED: CLINDAMYCIN 600 MG/D5W (PMX) 50 ML IVPB ONE (18:34)
--- NOTE | 2016-12-21 19:06 | OPR ---
Date/Time of Note Date/Time of Note DATE: 12/21/16 TIME: 19:06 Operative Report Procedure Date: Dec 21, 2016 Preoperative Diagnosis Necrotic right lateral thigh wound Postoperative Diagnosis Same, 14 x 7 cm Operation Performed 1. Excisional debridement of skin, and subcutaneous necrotic tissue of lateral thigh. 14 x 7 cm 2. Local anesthetic injection, [id number] Surgeon: HALEY HERNANDEZ MD Anesthesia Type: MAC (And local) Estimated Blood Loss: 0 - 10 ml's Transfusion Required: no Specimens Tissue Grafts/Implants: none Tubes/Drains None Complications: no Pt Condition Post Procedure: stable Disposition: PACU Indications Per consults notes. Risks include but are not limited to bleeding, infection, abscess, seroma, leak , chronic pain, need for re-operations or further surgeries, [place], stroke, PE, DVT , pneumonia, organ failures, or even . Procedure Description Patient was brought in on his own bed to the OR. Placed in supine position. All pressure points were well-padded. Patient is already on antibiotics. Anesthesia was instituted. Timeout was performed. She was prepped and draped in usual sterile fashion. Using electrocautery, necrotic skin, subcutaneous were excised down to healthier tissue. Hemostasis was obtained. Wounds were irrigated and packed with Betadine soaked Kerlix. Dry dressing was applied. Patient was taken back to recovery room in stable condition. All counts were correct at the end of the operation 2. HALEY HERNANDEZ MD Dec 21, 2016 19:06
[2016-12-21] MEDS ORDERED: KETAMINE 500 MG INJ ONE (19:12)
[2016-12-21] MEDS ORDERED: SOD CHLORIDE 0.9% IV SCH (19:30)
[2016-12-21] MEDS ORDERED: ONDANSETRON 4 MG INJ IV PRN (19:30)
[2016-12-21] MEDS ORDERED: HYDROmorphONE (0.2 MG/ML) 10ML SYG IV PRN (19:30)
[2016-12-21] MEDS ORDERED: DESMOPRESSIN IV SCH (19:30)
--- NOTE | 2016-12-21 19:45 | CONS ---
Date/Time of Note Date/Time of Note DATE: 12/21/16 TIME: 19:38 Assessment/Plan Assessment/Plan Chief Complaint/Hosp Course ID PROGRESS NOTE ABX DAY => OFF ABX DAY #10 S/P TOTAL ABX DAYS #30 s/p ABX from 11/11/16 - 12/11/16 s/p Vancomycin IV s/p Meropenem + others 24H INTERVAL SUMMARY * Patient is off the floor in OR today for excisional debridement today of wound, has been OFF wound vac. * Chart reviewed, no fevers, WBC Stable, patient w/intermittent agitation and aggressive yelling behavior toward staff who attempt to assist her. For example , she refuses the nursing staff to come in and reposition her, she refused to work with PTs, verbally yelling at attempts to participate in activity. The patient is able to move her arms and legs, she has some hip pain -- and on pain meds. According the the nurses, she prefers to take pain meds and sleep flat on her back without moving., She is on pressure reducing Clinitron bed. PHYSICAL EXAMINATION=> Deferred patient off floor to OR for wound debridement. ID ASSESSMENT: 61 yo super morbid obese F admitted with: 1. Acute encephalopathy, likely toxic metabolic => RESOLVED * Suspect underlying Psych DX NOS 2. Bilateral lower extremities chronic venous stasis with chronic cellulitis and left hip wound, s/p debridement and wound vac application 10/19/16. 3. End-stage renal disease, on hemodialysis. * Left upper extremity AV fistula 4. Healthcare associated pneumonia, possibly aspiration = Clinically improved - Completed lengthy course IV ABX 5. Atrial fibrillation. 6. COPD - stable 7. Diabetes 8. Hx of falls -> limited mobility due to super morbid obesity 9. Anemia-> managed by primary 10. Chronic pain -- opioid dependent ABX ALLERGIES: PCN, CIPRO CURRENT ABX: => OFF ABX DAY #10 S/P TOTAL ABX DAYS #30 s/p ABX from 11/11/16 - 12/11/16 s/p Vancomycin IV s/p Meropenem + others ID RECOMMENDATIONS: 1.Patient off floor to OR today * - Exam deferred, chart reviewed, and case d/w staff, patient with opioid dependency for pain, declining to participate in medically recommended PTx, and declines nurse assist with Q2H turning to prevent pressure ulcers. 2. DC planning apparently on hold for placement * May DC or TNS OFF ABX * DC planning process held up with securing transportation & placement with HD and Clinitron bed * . Problems: Consultation Date/Type/Reason Admit Date/Time Nov 11, 2016 at 06:40 Initial Consult Date 11/12/16 Type of Consultation: ID Referring Provider: ERICK MATOS Exam/Review of Systems Vital Signs Vitals Vital Signs Date Time Temp Pulse Resp B/P Pulse Ox O2 Delivery O2 Flow Rate FiO2 12/21/16 14:33 98.4 92 20 104/58 98 12/21/16 08:00 Nasal Cannula 3 Intake and Output 12/20/16 12/20/16 12/21/16 15:00 23:00 07:00 Intake Total 400 ml 300 ml Balance 400 ml 300 ml Results Result Diagram: 12/21/16 1120 12/21/16 1120 Results 24 hrs Laboratory Tests Test 12/20/16 21:24 12/21/16 08:13 12/21/16 11:14 12/21/16 11:20 Bedside Glucose 150 140 Prothrombin Time 17.1 H Prothrombin Time Ratio 1.3 INR International Normalized Ratio 1.39 White Blood Count 9.6 Red Blood Count 3.13 L Hemoglobin 8.7 L Hematocrit 28.2 L Mean Corpuscular Volume 90.1 Mean Corpuscular Hemoglobin 27.8 L Mean Corpuscular Hemoglobin Concent 30.9 L Red Cell Distribution Width 19.7 H Platelet Count 373 Mean Platelet Volume 9.5 Neutrophils % 64.0 Lymphocytes % 13.4 L Monocytes % 13.0 H Eosinophils % 5.8 Basophils % 1.0 Nucleated Red Blood Cells % 0.0 Neutrophils # 6.1 Lymphocytes # 1.3 Monocytes # 1.2 H Eosinophils # 0.6 H Basophils # 0.1 Nucleated Red Blood Cells # 0.0 Sodium Level 138 Potassium Level 4.2 Chloride Level 95 L Carbon Dioxide Level 31 Anion Gap 16 Blood Urea Nitrogen 38 H Creatinine 4.14 H Glucose Level 147 Calcium Level 11.0 H Test 12/21/16 11:47 12/21/16 17:20 Bedside Glucose 167 158 Medications Medications Current Medications Amlodipine Besylate (Norvasc) 5 mg DAILY PO Last administered on 12/20/16t 08:42 ; Admin Dose 5 MG; Start 11/11/16 at 09:30 Aspirin (Aspirin) 81 mg DAILY PO Last administered on 12/20/16 08:42; Admin Dose 81 MG; Start 11/11/16 at 09:30 Atorvastatin Calcium (Lipitor) 40 mg QHS PO Last administered on 12/20/16 21:30 ; Admin Dose 40 MG; Start 11/11/16 at 21:00 Benzonatate (Tessalon) 100 mg Q6 PO Last administered on 12/21/16 11:49; Admin Dose 100 MG; Start 11/11/16 at 12:00 Carisoprodol (Soma) 350 mg Q8 PRN PO MUSCLE SPASMS Last administered on 18:38; Admin Dose 350 MG; Start 11/11/16 at 12:00 Cinacalcet (Sensipar) 30 mg DAILY PO Last administered on 12/21/16 08:55; Admin Dose 30 MG; Start 11/11/16 at 11:00 Furosemide (Lasix) 80 mg DAILY PO Last administered on 12/20/16 08:44; Admin Dose 80 MG; Start 11/11/16 at 09:30 Losartan Potassium (Cozaar) 50 mg BID PO Last administered on 12/20/16 21:30; Admin Dose 50 MG; Start 11/11/16 at 09:30 Metoprolol Succinate (Toprol Xl) 50 mg BID PO Last administered on 12/20/16 21: 31; Admin Dose 50 MG; Start 11/11/16 at 09:30 Montelukast Sodium (Singulair) 10 mg QAM PO Last administered on 12/21/16 08:55 ; Admin Dose 10 MG; Start 11/11/16 at 11:00 Oxycodone/ Acetaminophen (Endocet (10/ 325)) 1 tab Q6 PRN PO PRN Last administered on 12/20/16 03:33; Admin Dose 1 TAB; Start 11/11/16 at 12:00 Pyridoxine HCl (Vitamin B6) 50 mg DAILY PO Last administered on 12/21/16 08:55 ; Admin Dose 50 MG; Start 11/11/16 at 09:30 Tiotropium [place] (Spiriva) 1 inh DAILY INH Last administered on 12/21/16 08: 50; Admin Dose 1 INH; Start 11/11/16 at 11:00 Ondansetron HCl (Zofran Tab) 4 mg Q6H PRN PO NAUSEA AND/OR VOMITING Last administered on 11/22/16 08:46; Admin Dose 4 MG; Start 11/11/16 at 10:00 Salmeterol Xinafoate/ Fluticasone (Advair 250/50 Diskus) 1 inh BID INH Last administered on 12/21/16 08:49; Admin Dose 1 INH; Start 11/11/16 at 11:00 Epoetin Hang (Epogen (Esrd)) 10,000 units TuThSa@17 SC Last administered on 12/21 17:23; Admin Dose 10,000 UNITS; Start 11/11/16 at 17:00 Collagenase (Santyl) 1 applic DAILY TOP Last administered on 12/17/16 08:57; Admin Dose 1 APPLIC; Start 11/13/16 at 09:00 Diagnostic Test (Pha) (Accu-Chek) 1 ea 02 XX Last administered on 12/12/16 02: 00; Admin Dose 1 EA; Start 11/14/16 at 02:00 Nicotine (Nicoderm 21 Mg/ 24hr) 1 patch DAILY TRANSDERM Last administered on 08:56; Admin Dose 1 PATCH; Start 11/14/16 at 20:00 Docusate Sodium (Colace) 100 mg Q12H PO Last administered on 12/19/16 21:46; Admin Dose 100 MG; Start 11/16/16 at 22:00 Miscellaneous Information 1 ea NOTE XX ; Start 11/17/16 at 11:30 Glucose (Glutose) 15 gm Q15M PRN PO DECREASED GLUCOSE; Start 11/17/16 at 11:30 Glucose (Glutose) 22.5 gm Q15M PRN PO DECREASED GLUCOSE; Start 11/17/16 at 11:30 Dextrose (D50w Syringe) 25 ml Q15M PRN IV DECREASED GLUCOSE; Start 11/17/16 at 11:30 Dextrose (D50w Syringe) 50 ml Q15M PRN IV DECREASED GLUCOSE; Start 11/17/16 at 11:30 Glucagon (Glucagen) 1 mg Q15M PRN IM DECREASED GLUCOSE; Start 11/17/16 at 11:30 Glucose (Glutose) 15 gm Q15M PRN BUCCAL DECREASED GLUCOSE; Start 11/17/16 at 11: 30 Polyethylene Glycol (Miralax) 17 gm BID PO Last administered on 12/19/16 21:47 ; Admin Dose 17 GM; Start 11/17/16 at 12:00 Bisacodyl (Dulcolax) 10 mg DAILY PRN PO CONSTIPATION; Start 11/17/16 at 11:30 Diltiazem HCl (Cardizem Cd) 120 mg BID PO Last administered on 12/20/16 21:30; Admin Dose 120 MG; Start 11/19/16 at 21:00 Zolpidem Tartrate (Ambien) 5 mg HS PRN PO INSOMNIA Last administered on 22:48; Admin Dose 5 MG; Start 11/19/16 at 21:30 Lorazepam (Ativan) 1 mg Q6H PRN IV AGITATION/ANXIETY Last administered on 11:56; Admin Dose 1 MG; Start 11/21/16 at 21:15 Guaifenesin/ Codeine Phosphate (Robitussin Ac Liquid Cup) 5 ml Q4H PRN PO COUGH Last administered on 12/14/16 03:48; Admin Dose 5 ML; Start 11/21/16 at 21: 30 Pantoprazole (Protonix Iv) 40 mg BID@06,18 IV Last administered on 12/21/16 17: 34; Admin Dose 40 MG; Start 12/02/16 at 18:00 Sucralfate (Carafate) 1 gm QID PO Last administered on 12/20/16 21:29; Admin Dose 1 GM; Start 12/03/16 at 17:00 Insulin Detemir (Levemir) 30 unit QHS@20 SC Last administered on 12/20/16 21:27 ; Admin Dose 30 UNIT; Start 12/12/16 at 20:00 Sodium Chloride (Deep Sea) 1 spray Q2H PRN NASAL NASAL CONGESTION Last administered on 12/13/16 04:56; Admin Dose 1 SPRAY; Start 12/12/16 at 21:30 Apixaban (Eliquis) 5 mg BID PO Last administered on 12/18/16 09:45; Admin Dose 5 MG; Start 12/13/16 at 21:00; Status Future Hold Albuterol (Ventolin Hfa) 2 puff Q2H PRN INH SHORTNESS OF BREATH Last administered on 12/21/16 09:20; Admin Dose 2 PUFF; Start 12/15/16 at 21:15 Morphine Sulfate 2 mg 2 mg Q3H PRN IV for pain Last administered on 12/21/16 09 :12; Admin Dose 2 MG; Start 12/18/16 at 12:00 Desmopressin Acetate/Sodium Chloride (Ddavp/NS) 50 ml @ 100 mls/hr ONCE IV ; Start 12/21/16 at 19:30; Stop 12/21/16 at 23:00 STEFAN COMBS NP Dec 21, 2016 19:45
[2016-12-21] MEDS: ATORVASTATIN 40 MG TAB PO SCH (21:53)
[2016-12-21] MEDS: INSULIN DETEMIR [LEVEMIR] 3ML CART SC SCH (21:54)
[2016-12-22] MEDS: ZOLPIDEM 5 MG TAB PO PRN (01:56)
[2016-12-22] MEDS: ACCU-CHEK XX SCH (02:00)
[2016-12-22 02:46] VITALS: BP 126/60; RESP 20
[2016-12-22] MEDS: morphine 2 MG INJ IV PRN (04:12)
[2016-12-22] MEDS: COLLAGENASE 30 GM TUBE TOP SCH (04:19)
[2016-12-22] MEDS: PANTOPRAZOLE 40 MG INJ IV SCH ×2 (05:31→16:59)
[2016-12-22] MEDS: BENZONATATE 100 MG CAP PO SCH ×3 (05:31→17:00)
[2016-12-22 06:13] LABS: INR 1.46; PROTIME 17.8 Sec (12.2-14.2); PT RATIO 1.4
[2016-12-22] MEDS: METOCLOPRAMIDE 5 MG TAB PO SCH ×3 (06:38→16:59)
[2016-12-22 06:56] LABS: CALCIUM 10.2 mg/dl (8.4-10.2); CREATININE 2.99 mg/dl (0.44-1.00); POTASSIUM 3.6 mmol/L (3.5-5.1)
[2016-12-22 08:32] VITALS: BP 118/57; RESP 20
[2016-12-22] MEDS: FUROSEMIDE 40 MG TAB PO SCH (09:00)
[2016-12-22] MEDS: DOCUSATE SODIUM 100 MG CAP PO SCH (10:00)
[2016-12-22] MEDS: POLYETHYLENE GLYCOL 17 GM PACKET PO SCH (10:30)
[2016-12-22] MEDS: SALMETEROL/FLUTICASONE 250/50 INHA INH SCH (10:30)
[2016-12-22] MEDS: SUCRALFATE 1 GM TAB PO SCH ×3 (10:30→16:59)
[2016-12-22] MEDS: METOPROLOL (XL) 50 MG TAB PO SCH (10:30)
[2016-12-22] MEDS: INSULIN ASPART [NOVOLOG] 3 ML PEN SC SCH ×3 (10:30→16:59)
[2016-12-22] MEDS: CINACALCET 30 MG TAB PO SCH (10:30)
[2016-12-22] MEDS: PYRIDOXINE 50 MG TAB PO SCH (10:30)
[2016-12-22] MEDS: MONTELUKAST 10 MG TAB PO SCH (10:30)
[2016-12-22] MEDS: AMLODIPINE 5 MG TAB PO SCH (10:30)
[2016-12-22] MEDS: DILTIAZEM (CD) 120 MG CAP PO SCH (10:30)
[2016-12-22] MEDS: ASPIRIN 81 MG TAB PO SCH (10:30)
[2016-12-22] MEDS: LOSARTAN 50 MG TAB PO SCH (10:30)
[2016-12-22] MEDS: TIOTROPIUM 18 MCG CAPSULE INHA DEV INH SCH (10:30)
[2016-12-22] MEDS: SALINE 0.65% 45 ML NAS SPRAY NASAL PRN (10:41)
[2016-12-22] MEDS: GUAIFENESIN/CODEINE 5ML CUP PO PRN (10:41)
[2016-12-22] MEDS: ALBUTEROL 18 GM INHALER INH PRN (10:41)
[2016-12-22] MEDS: LORAZEPAM 2 MG INJ IV PRN (11:39)
--- NOTE | 2016-12-22 11:56 | PN ---
Date/Time of Note Date/Time of Note DATE: 12/22/16 TIME: 11:48 Assessment/Plan Lines/Catheters IV Catheter Type (from [facility]): Saline Lock Whitaker in Place (from [facility]): No Assessment/Plan Chief Complaint/Hosp Course 1. Bilateral upper thighs and right flank wounds: 2/2 pressure from immobility; atherosclerosis but not flow limiting per vascular; left thigh s/p wound vac; s/ p debridement 12/21 -local wound care -offloading and turning frequently -specialty mattress -vitamin c short term zinc 2. PNA: s/p abx: non labored breathing, no cough -pulmonary toilet 3. Venous stasis dermatitis 4. Diabetes -blood sugar optimization 5. Falls -PT -fall precautions 6. Morbidly Obese -diet and physical modification 7. ESRD with HD today; cr lower -per nephro 8. Normocytic anemia: no acute bleed noted; asymptomatic; s/p transfusion -monitor 9. Esophagitis: no acute bleed -medical management 10. Hypercalcemia 11. Hypertension -eventual weight loss -medical management Patient seen and examined in collaboration with Dr. Kenney Forrester. Thank you. Problems: Subjective 24 Hr Interval Summary s/p right thigh debridement 12/21/16. Feels ok. No drainage from right thigh. Min discomfort to area-managed with pain medicine. No fevers, chills, n/v/d/dysuria , cp, palpitations, sob, cough. +bowel function Exam/Review of Systems Vital Signs Vitals Vital Signs Date Time Temp Pulse Resp B/P Pulse Ox O2 Delivery O2 Flow Rate FiO2 12/22/16 09:50 Nasal Cannula 3.0 12/22/16 08:32 98.4 90 20 118/57 91 Intake and Output 12/21/16 12/21/16 12/22/16 15:00 23:00 07:00 Intake Total 700 ml 300 ml 240 ml Output Total 2800 ml 100 ml Balance -2100 ml 200 ml 240 ml Exam Free Text/Dictation Constitutional: alert, oriented Psych: anxiety, pleasant today No nl mood/affect: labile Head: atraumatic, normocephalic Eyes: nl lids, nl sclera ENMT: No nl lips & teeth (missing teeth) Neck: non-tender, supple Respiratory: diminished Cardiovascular: regular rate and rhythm Gastrointestinal: non-tender, other (obese), soft Musculoskeletal: muscle weakness, No nl gait and stance Extremities: No edema, No normal pulses Neurological: nl speech, nl Skin: other (wounds: Right thigh dressings intact with min dry drainage, periwound erythema improved) Results Result Diagram: 12/21/16 1120 12/22/16 0548 JUSTIN FOX NP Dec 22, 2016 11:56
--- NOTE | 2016-12-22 12:49 | PN ---
Date/Time of Note Date/Time of Note DATE: 12/22/16 TIME: 12:47 Assessment/Plan VTE Prophylaxis VTE Prophylaxis Intervention: SCD's Lines/Catheters IV Catheter Type (from [facility]): Saline Lock Urinary Cath still in place: No Assessment/Plan Assessment/Plan Debility Left lower extremity thigh area ulcer, with wound VAC GI bleed gastritis, erosive Diabetes type 2 End-stage renal disease, on dialysis Pneumonia Obesity Dyslipidemia Diabetic foot ulcers Bilateral lower extremity chronic venous stasis ulcers Chronic cellulitis Left hip wound Coronary artery disease Hypertension Atrial fibrillation Lower extremity edema Insomnia Plan -protonix bid per GI, EGD done last week showed erosive gastritis, GI okay to restart eliquis for a-fib, however after a few days, patient hgb dropped again. transfused, but holding eliquis for now. -Patient has multiple medical conditions, continue chronic care -s/p removal of wound vac, G Erin Forrester has been following , s/p excisional debridement yesterday, wound cx pending -continue home medications as able -As needed medications for pain -continue HD for ESRD.on TTS - Plan for HD today DISPO: D/c to possible SNF tuesday if ID will have plan for abx in place Subjective 24 Hr Interval Summary Free Text/Dictation s/p excisional debridement with wound vac Exam/Review of Systems Vital Signs Vitals Vital Signs Date Time Temp Pulse Resp B/P Pulse Ox O2 Delivery O2 Flow Rate FiO2 12/22/16 09:50 Nasal Cannula 3.0 12/22/16 08:32 98.4 90 20 118/57 91 Intake and Output 12/21/16 12/21/16 12/22/16 15:00 23:00 07:00 Intake Total 700 ml 300 ml 240 ml Output Total 2800 ml 100 ml Balance -2100 ml 200 ml 240 ml Exam General: Patient is laying in bed and answers questions appropriately Mentation: Patient is alert and oriented 4, Head: Normocephalic atraumatic Eyes: EOMI, pupils reactive to light Neck: Supple, nontender, midline Respiratory:mildly course to auscultation bilaterally Cardiovascular: regular rate, no obvious murmurs Gastrointestinal: non-tender to palpation, bowel sounds heard. Neurological: Moves all extremities spontaneously Skin: multiple skin lesions on body. L hip wound. multiple LE ulcerations. R hip wound. Results Result Diagram: 12/21/16 1120 12/22/16 0548 Results 24 hrs Laboratory Tests Test 12/21/16 17:20 12/21/16 21:06 12/21/16 21:50 12/22/16 01:59 Bedside Glucose 158 177 188 160 Test 12/22/16 05:48 12/22/16 12:24 Prothrombin Time 17.8 H Prothrombin Time Ratio 1.4 INR International Normalized Ratio 1.46 Activated Partial Thromboplast Time 54.0 H Sodium Level 140 Potassium Level 3.6 Chloride Level 94 L Carbon Dioxide Level 30 Anion Gap 20 H Blood Urea Nitrogen 26 #H Creatinine 2.99 #H Glucose Level 126 Calcium Level 10.2 Bedside Glucose 140 Medications Medications Current Medications Amlodipine Besylate (Norvasc) 5 mg DAILY PO Last administered on 12/20/16 08:42 ; Admin Dose 5 MG; Start 11/11/16 at 09:30 Aspirin (Aspirin) 81 mg DAILY PO Last administered on 12/20/16 08:42; Admin Dose 81 MG; Start 11/11/16 at 09:30 Atorvastatin Calcium (Lipitor) 40 mg QHS PO Last administered on 12/21/16 21:53 ; Admin Dose 40 MG; Start 11/11/16 at 21:00 Benzonatate (Tessalon) 100 mg Q6 PO Last administered on 12/22/16 05:31; Admin Dose 100 MG; Start 11/11/16 at 12:00 Carisoprodol (Soma) 350 mg Q8 PRN PO MUSCLE SPASMS Last administered on 18:38; Admin Dose 350 MG; Start 11/11/16 at 12:00 Cinacalcet (Sensipar) 30 mg DAILY PO Last administered on 12/21/16 08:55; Admin Dose 30 MG; Start 11/11/16 at 11:00 Furosemide (Lasix) 80 mg DAILY PO Last administered on 12/20/16 08:44; Admin Dose 80 MG; Start 11/11/16 at 09:30 Losartan Potassium (Cozaar) 50 mg BID PO Last administered on 12/21/16 21:52; Admin Dose 50 MG; Start 11/11/16 at 09:30 Metoprolol Succinate (Toprol Xl) 50 mg BID PO Last administered on 12/21/16 21: 53; Admin Dose 50 MG; Start 11/11/16 at 09:30 Montelukast Sodium (Singulair) 10 mg QAM PO Last administered on 12/21/16 08:55 ; Admin Dose 10 MG; Start 11/11/16 at 11:00 Oxycodone/ Acetaminophen (Endocet (10/ 325)) 1 tab Q6 PRN PO PRN Last administered on 12/20/16 03:33; Admin Dose 1 TAB; Start 11/11/16 at 12:00 Pyridoxine HCl (Vitamin B6) 50 mg DAILY PO Last administered on 12/21/16 08:55 ; Admin Dose 50 MG; Start 11/11/16 at 09:30 Tiotropium [place] (Spiriva) 1 inh DAILY INH Last administered on 12/21/16 08: 50; Admin Dose 1 INH; Start 11/11/16 at 11:00 Ondansetron HCl (Zofran Tab) 4 mg Q6H PRN PO NAUSEA AND/OR VOMITING Last administered on 11/22/16 08:46; Admin Dose 4 MG; Start 11/11/16 at 10:00 Salmeterol Xinafoate/ Fluticasone (Advair 250/50 Diskus) 1 inh BID INH Last administered on 12/22/16 10:30; Admin Dose 1 INH; Start 11/11/16 at 11:00 Epoetin Hang (Epogen (Esrd)) 10,000 units TuThSa@17 SC Last administered on 12/21 17:23; Admin Dose 10,000 UNITS; Start 11/11/16 at 17:00 Collagenase (Santyl) 1 applic DAILY TOP Last administered on 12/22/16 04:19; Admin Dose 1 APPLIC; Start 11/13/16 at 09:00 Diagnostic Test (Pha) (Accu-Chek) 1 ea 02 XX Last administered on 12/22/16 02: 00; Admin Dose 1 EA; Start 11/14/16 at 02:00 Nicotine (Nicoderm 21 Mg/ 24hr) 1 patch DAILY TRANSDERM Last administered on 23:40; Admin Dose 1 PATCH; Start 11/14/16 at 20:00 Docusate Sodium (Colace) 100 mg Q12H PO Last administered on 12/19/16 21:46; Admin Dose 100 MG; Start 11/16/16 at 22:00 Miscellaneous Information 1 ea NOTE XX ; Start 11/17/16 at 11:30 Glucose (Glutose) 15 gm Q15M PRN PO DECREASED GLUCOSE; Start 11/17/16 at 11:30 Glucose (Glutose) 22.5 gm Q15M PRN PO DECREASED GLUCOSE; Start 11/17/16 at 11:30 Dextrose (D50w Syringe) 25 ml Q15M PRN IV DECREASED GLUCOSE; Start 11/17/16 at 11:30 Dextrose (D50w Syringe) 50 ml Q15M PRN IV DECREASED GLUCOSE; Start 11/17/16 at 11:30 Glucagon (Glucagen) 1 mg Q15M PRN IM DECREASED GLUCOSE; Start 11/17/16 at 11:30 Glucose (Glutose) 15 gm Q15M PRN BUCCAL DECREASED GLUCOSE; Start 11/17/16 at 11: 30 Polyethylene Glycol (Miralax) 17 gm BID PO Last administered on 12/19/16 21:47 ; Admin Dose 17 GM; Start 11/17/16 at 12:00 Bisacodyl (Dulcolax) 10 mg DAILY PRN PO CONSTIPATION; Start 11/17/16 at 11:30 Diltiazem HCl (Cardizem Cd) 120 mg BID PO Last administered on 12/21/16 21:52; Admin Dose 120 MG; Start 11/19/16 at 21:00 Zolpidem Tartrate (Ambien) 5 mg HS PRN PO INSOMNIA Last administered on 01:56; Admin Dose 5 MG; Start 11/19/16 at 21:30 Lorazepam (Ativan) 1 mg Q6H PRN IV AGITATION/ANXIETY Last administered on 11:39; Admin Dose 1 MG; Start 11/21/16 at 21:15 Guaifenesin/ Codeine Phosphate (Robitussin Ac Liquid Cup) 5 ml Q4H PRN PO COUGH Last administered on 12/22/16 10:41; Admin Dose 5 ML; Start 11/21/16 at 21: 30 Pantoprazole (Protonix Iv) 40 mg BID@06,18 IV Last administered on 12/22/16 05: 31; Admin Dose 40 MG; Start 12/02/16 at 18:00 Sucralfate (Carafate) 1 gm QID PO Last administered on 12/21/16 21:52; Admin Dose 1 GM; Start 12/03/16 at 17:00 Insulin Detemir (Levemir) 30 unit QHS@20 SC Last administered on 12/21/16 21:54 ; Admin Dose 30 UNIT; Start 12/12/16 at 20:00 Sodium Chloride (Deep Sea) 1 spray Q2H PRN NASAL NASAL CONGESTION Last administered on 12/22/16 10:41; Admin Dose 1 SPRAY; Start 12/12/16 at 21:30 Apixaban (Eliquis) 5 mg BID PO Last administered on 12/18/16 09:45; Admin Dose 5 MG; Start 12/13/16 at 21:00; Status Future Hold Albuterol (Ventolin Hfa) 2 puff Q2H PRN INH SHORTNESS OF BREATH Last administered on 12/22/16 10:41; Admin Dose 2 PUFF; Start 12/15/16 at 21:15 Morphine Sulfate (morphine) 2 mg Q3H PRN IV for pain Last administered on 04:12; Admin Dose 2 MG; Start 12/18/16 at 12:00 SUMMER SANCHEZ MD Dec 22, 2016 12:49
--- NOTE | 2016-12-22 12:51 | PDOCDIS ---
Discharge Instructions CONDITION Patient Condition: Good HOME CARE INSTRUCTIONS: Special Diet: 1800 nai , 2 gm Na ACTIVITY: Activity Restrictions: Slowly Increase Activity Rest between Activity Avoid heavy lifting Avoid Heavy Housework FOLLOW UP/APPOINTMENTS Follow-up Plan follow up with physician at [facility] iin 1-2 days., follow up with her regualr HD unit for scheduled HD on Tue, , tuesday, Follow up with gen suhail Dickson as outpatient in 2 weeks after discahrge(Excisional debridement done by ) USMMER SANCHEZ MD Dec 22, 2016 12:51
--- NOTE | 2016-12-22 17:10 | CONS ---
Date/Time of Note Date/Time of Note DATE: 12/22/16 TIME: 17:05 Assessment/Plan Assessment/Plan Chief Complaint/Hosp Course ID PROGRESS NOTE ABX DAY => OFF ABX DAY #11 S/P TOTAL ABX DAYS #30 s/p ABX from 11/11/16 - 12/11/16 s/p Vancomycin IV s/p Meropenem + others 24H INTERVAL SUMMARY * DC PLANNING => s/p wound debridement last night. No fevers, VSS. * PHYSICAL EXAMINATION=>No changes from prior ID ASSESSMENT: 61 yo super morbid obese F admitted with: 1. Acute encephalopathy, likely toxic metabolic => RESOLVED * Suspect underlying Psych DX NOS 2. Bilateral lower extremities chronic venous stasis with chronic cellulitis and left hip wound, s/p debridement and wound vac application 10/19/16. 3. End-stage renal disease, on hemodialysis. * Left upper extremity AV fistula 4. Healthcare associated pneumonia, possibly aspiration = Clinically improved - Completed lengthy course IV ABX 5. Atrial fibrillation. 6. COPD - stable 7. Diabetes 8. Hx of falls -> limited mobility due to super morbid obesity 9. Anemia-> managed by primary 10. Chronic pain -- opioid dependent ABX ALLERGIES: PCN, CIPRO CURRENT ABX: => OFF ABX DAY #11 S/P TOTAL ABX DAYS #30 s/p ABX from 11/11/16 - 12/11/16 s/p Vancomycin IV s/p Meropenem + others ID RECOMMENDATIONS: 2. DC planning in process * May DC or TNS OFF ABX . Problems: Consultation Date/Type/Reason Admit Date/Time Nov 11, 2016 at 06:40 Initial Consult Date 11/12/16 Type of Consultation: ID Referring Provider: ERICK MATOS Exam/Review of Systems Vital Signs Vitals Vital Signs Date Time Temp Pulse Resp B/P Pulse Ox O2 Delivery O2 Flow Rate FiO2 12/22/16 09:50 Nasal Cannula 3.0 12/22/16 08:32 98.4 90 20 118/57 91 Intake and Output 12/21/16 12/21/16 12/22/16 15:00 23:00 07:00 Intake Total 700 ml 300 ml 240 ml Output Total 2800 ml 100 ml Balance -2100 ml 200 ml 240 ml Results Result Diagram: 12/21/16 1120 12/22/16 0548 Results 24 hrs Laboratory Tests Test 12/21/16 17:20 12/21/16 21:06 12/21/16 21:50 12/22/16 01:59 Bedside Glucose 158 177 188 160 Test 12/22/16 05:48 12/22/16 12:24 Prothrombin Time 17.8 H Prothrombin Time Ratio 1.4 INR International Normalized Ratio 1.46 Activated Partial Thromboplast Time 54.0 H Sodium Level 140 Potassium Level 3.6 Chloride Level 94 L Carbon Dioxide Level 30 Anion Gap 20 H Blood Urea Nitrogen 26 #H Creatinine 2.99 #H Glucose Level 126 Calcium Level 10.2 Bedside Glucose 140 Medications Medications Current Medications Amlodipine Besylate (Norvasc) 5 mg DAILY PO Last administered on 12/20/16 08:42 ; Admin Dose 5 MG; Start 11/11/16 at 09:30 Aspirin (Aspirin) 81 mg DAILY PO Last administered on 12/20/16 08:42; Admin Dose 81 MG; Start 11/11/16 at 09:30 Atorvastatin Calcium (Lipitor) 40 mg QHS PO Last administered on 12/21/16 21:53 ; Admin Dose 40 MG; Start 11/11/16 at 21:00 Benzonatate (Tessalon) 100 mg Q6 PO Last administered on 12/22/16 05:31; Admin Dose 100 MG; Start 11/11/16 at 12:00 Carisoprodol (Soma) 350 mg Q8 PRN PO MUSCLE SPASMS Last administered on 18:38; Admin Dose 350 MG; Start 11/11/16 at 12:00 Cinacalcet (Sensipar) 30 mg DAILY PO Last administered on 12/21/16 08:55; Admin Dose 30 MG; Start 11/11/16 at 11:00 Furosemide (Lasix) 80 mg DAILY PO Last administered on 12/20/16 08:44; Admin Dose 80 MG; Start 11/11/16 at 09:30 Losartan Potassium (Cozaar) 50 mg BID PO Last administered on 12/21/16 21:52; Admin Dose 50 MG; Start 11/11/16 at 09:30 Metoprolol Succinate (Toprol Xl) 50 mg BID PO Last administered on 12/21/16 21: 53; Admin Dose 50 MG; Start 11/11/16 at 09:30 Montelukast Sodium (Singulair) 10 mg QAM PO Last administered on 12/21/16 08:55 ; Admin Dose 10 MG; Start 11/11/16 at 11:00 Oxycodone/ Acetaminophen (Endocet (10/ 325)) 1 tab Q6 PRN PO PRN Last administered on 12/20/16 03:33; Admin Dose 1 TAB; Start 11/11/16 at 12:00 Pyridoxine HCl (Vitamin B6) 50 mg DAILY PO Last administered on 12/21/16 08:55 ; Admin Dose 50 MG; Start 11/11/16 at 09:30 Tiotropium Comfrey (Spiriva) 1 inh DAILY INH Last administered on 12/21/16 08: 50; Admin Dose 1 INH; Start 11/11/16 at 11:00 Ondansetron HCl (Zofran Tab) 4 mg Q6H PRN PO NAUSEA AND/OR VOMITING Last administered on 11/22/16 08:46; Admin Dose 4 MG; Start 11/11/16 at 10:00 Salmeterol Xinafoate/ Fluticasone (Advair 250/50 Diskus) 1 inh BID INH Last administered on 12/22/16 10:30; Admin Dose 1 INH; Start 11/11/16 at 11:00 Epoetin Hang (Epogen (Esrd)) 10,000 units TuThSa@17 SC Last administered on 12/21 17:23; Admin Dose 10,000 UNITS; Start 11/11/16 at 17:00 Collagenase (Santyl) 1 applic DAILY TOP Last administered on 12/22/16 04:19; Admin Dose 1 APPLIC; Start 11/13/16 at 09:00 Diagnostic Test (Pha) (Accu-Chek) 1 ea 02 XX Last administered on 12/22/16 02: 00; Admin Dose 1 EA; Start 11/14/16 at 02:00 Nicotine (Nicoderm 21 Mg/ 24hr) 1 patch DAILY TRANSDERM Last administered on 23:40; Admin Dose 1 PATCH; Start 11/14/16 at 20:00 Docusate Sodium (Colace) 100 mg Q12H PO Last administered on 12/19/16 21:46; Admin Dose 100 MG; Start 11/16/16 at 22:00 Miscellaneous Information 1 ea NOTE XX ; Start 11/17/16 at 11:30 Glucose (Glutose) 15 gm Q15M PRN PO DECREASED GLUCOSE; Start 11/17/16 at 11:30 Glucose (Glutose) 22.5 gm Q15M PRN PO DECREASED GLUCOSE; Start 11/17/16 at 11:30 Dextrose (D50w Syringe) 25 ml Q15M PRN IV DECREASED GLUCOSE; Start 11/17/16 at 11:30 Dextrose (D50w Syringe) 50 ml Q15M PRN IV DECREASED GLUCOSE; Start 11/17/16 at 11:30 Glucagon (Glucagen) 1 mg Q15M PRN IM DECREASED GLUCOSE; Start 11/17/16 at 11:30 Glucose (Glutose) 15 gm Q15M PRN BUCCAL DECREASED GLUCOSE; Start 11/17/16 at 11: 30 Polyethylene Glycol (Miralax) 17 gm BID PO Last administered on 12/19/16 21:47 ; Admin Dose 17 GM; Start 11/17/16 at 12:00 Bisacodyl (Dulcolax) 10 mg DAILY PRN PO CONSTIPATION; Start 11/17/16 at 11:30 Diltiazem HCl (Cardizem Cd) 120 mg BID PO Last administered on 12/21/16 21:52; Admin Dose 120 MG; Start 11/19/16 at 21:00 Zolpidem Tartrate (Ambien) 5 mg HS PRN PO INSOMNIA Last administered on 01:56; Admin Dose 5 MG; Start 11/19/16 at 21:30 Lorazepam (Ativan) 1 mg Q6H PRN IV AGITATION/ANXIETY Last administered on 11:39; Admin Dose 1 MG; Start 11/21/16 at 21:15 Guaifenesin/ Codeine Phosphate (Robitussin Ac Liquid Cup) 5 ml Q4H PRN PO COUGH Last administered on 12/22/16 10:41; Admin Dose 5 ML; Start 11/21/16 at 21: 30 Pantoprazole (Protonix Iv) 40 mg BID@06,18 IV Last administered on 12/22/16 05: 31; Admin Dose 40 MG; Start 12/02/16 at 18:00 Sucralfate (Carafate) 1 gm QID PO Last administered on 12/21/16 21:52; Admin Dose 1 GM; Start 12/03/16 at 17:00 Insulin Detemir (Levemir) 30 unit QHS@20 SC Last administered on 12/21/16 21:54 ; Admin Dose 30 UNIT; Start 12/12/16 at 20:00 Sodium Chloride (Deep Sea) 1 spray Q2H PRN NASAL NASAL CONGESTION Last administered on 12/22/16 10:41; Admin Dose 1 SPRAY; Start 12/12/16 at 21:30 Apixaban (Eliquis) 5 mg BID PO Last administered on 12/18/16 09:45; Admin Dose 5 MG; Start 12/13/16 at 21:00; Status Future Hold Albuterol (Ventolin Hfa) 2 puff Q2H PRN INH SHORTNESS OF BREATH Last administered on 12/22/16 10:41; Admin Dose 2 PUFF; Start 12/15/16 at 21:15 Morphine Sulfate (morphine) 2 mg Q3H PRN IV for pain Last administered on 04:12; Admin Dose 2 MG; Start 12/18/16 at 12:00 STEFAN COMBS NP Dec 22, 2016 17:10
--- NOTE | 2016-12-25 | DS ---
Date/Time of Note Date/Time of Note DATE: 12/24/16 TIME: 23:56 Discharge Summary Admission/Discharge Info Admit Date/Time Nov 11, 2016 at 06:40 Discharge Date/Time Dec 22, 2016 at 20:18 Discharge Diagnosis Debility Left lower extremity thigh area ulcer, with wound VAC GI bleed gastritis, erosive Diabetes type 2 End-stage renal disease, on dialysis Pneumonia Obesity Dyslipidemia Diabetic foot ulcers Bilateral lower extremity chronic venous stasis ulcers Chronic cellulitis Left hip wound Coronary artery disease Hypertension Atrial fibrillation Lower extremity edema Insomnia Patient Condition: Good Consults General surgery Dr.Samuel Forrester, ID Procedures Excisional debridement of skin, and subcutaneous necrotic tissue of lateral thigh. 14 x [address] Forrester Hx of Present Illness 61 yo F with pmhx ESRD on HD, DM2, obesity, HTN admitted following ground level fall at home. Pt with recent hospital stay here 6.-19 for volume overload 2/2 missed HD. Pt was sent to a SNF at discharge for MAYUR, however pt states she left after 3 hours at the SNF because she was dissatisfied with the facility. Since returning home pt has been getting regular visits from a nurse to help with her chronic wounds and her wound vac. Pt denies any chest pain, new cough or SOB. Pt states that she tripped over her L ankle last night, which was the cause of her ground level fall. No head trauma or LOC. After her fall last night, pt was taken by EMS to [facility]. noted to be in AFib/flutter with HR in low 100s. LA 3.4, WBCs 19.3, CXR with fluid v infiltrate. Hospital Course pt gets admitted for acute encephalopathy due to infection. she received her maintance hemodialysis while being in hospital. she was evluated by Dr forrester and had a Excision debridement of lateral high. initially she required wound vac she gets discharged to SNF for wound care and physical therapy Home Meds Active Scripts Insulin Aspart* (Novolog Insulin Pen*) 100 Unit/Ml Soln, 0 UNIT SC WITH MEALS BEDTIME for 30 Days Prov:CHIP MUNSON 12/17/16 Collagenase* (Santyl*) 30 Gm Oint..gm., 1 APPLIC TOP DAILY for 30 Days Prov:CHIP MUNSON 12/17/16 Insulin Detemir (Levemir Flextouch) 100 Unit/1 Ml Insuln.pen, 30 UNIT SC QHS@20 for 30 Days Prov:CHIP MUNSON 12/17/16 Sucralfate (Carafate) 1 Gm Tablet, 1 GM PO QID for 15 Days, TAB Prov:CHIP MUNSON 12/17/16 Pantoprazole* (Protonix* IV) 40 Mg Soln, 40 MG IV BID@06,18 for 30 Days Prov:CHIP MUNSON 12/17/16 Epoetin Hang (Epogen) 10,000 Units/Ml Soln, 89993 UNITS SC TuThSa@17 for 30 Days Prov:CHIP MUNSON 12/17/16 Nicotine* (Nicotine* Patch) 21 mg/day Patch, 1 PATCH TRANSDERM DAILY for 30 Days Prov:CHIP MUNSON 12/17/16 Reported Medications Carisoprodol* (Carisoprodol*) 350 Mg Tablet, 350 MG PO Q8 Y for MUSCLE SPASMS, TAB 11/11/16 Tiotropium [place]* (Spiriva*) 18 Mcg Cap.w.dev, 1 CAP INHALATION DAILY, #30 CAP 09/09/16 Montelukast Sodium* (Montelukast Sodium*) 10 Mg Tablet, 10 MG PO QAM, #30 TAB 09/09/16 Calcium Acetate* (Phoslo*) 667 Mg Tablet, 667 MG PO WITH MEALS, TAB TAKE 4 TAB 09/09/16 Pyridoxine Hcl* (Pyridoxine Hcl*) 50 Mg Tablet, 50 MG PO DAILY, TAB 09/09/16 Zolpidem Tartrate* (Zolpidem Tartrate*) 5 Mg Tablet, 5 MG PO QHS Y for INSOMNIA , #30 TAB 09/09/16 Oxycodone HCl/Acetaminophen (Percocet 10-325 mg Tablet) 1 Each Tablet, 1 EACH PO Q6 Y for PRN, TAB 09/09/16 Budesonide-Formoterol Fumarate* (Symbicort*) 160-4.5 Hfa.aer.ad, 2 PUFF INHALATION BID, #1 EACH 12/19/15 Furosemide* (Furosemide*) 80 Mg Tablet, 80 MG PO DAILY, #30 TAB 12/19/15 Atorvastatin* (Atorvastatin*) 40 Mg Tablet, 40 MG PO QHS, #30 TAB 12/19/15 Amlodipine Besylate* (Amlodipine Besylate*) 5 Mg Tablet, 5 MG PO DAILY, #30 TAB 12/19/15 Losartan Potassium* (Losartan Potassium*) 50 Mg Tablet, 50 MG PO BID, TAB 12/19/15 Cinacalcet* (Sensipar*) 30 Mg Tab, 30 MG PO, TAB 12/19/15 Diltiazem Hcl* (Cardizem SR*) 60 Mg Capsr, 60 MG PO Q12, #60 CAP 12/19/15 Metoprolol Succinate* (Toprol XL*) 50 Mg Tab.er.24h, 50 MG PO BID, #30 TAB 12/19/15 Metoclopramide* (Reglan*) 5 Mg Tablet, 5 MG PO AC MEALS, TAB 12/19/15 Aspirin* (Aspirin* Chew) 81 Mg Tab.chew, 81 MG PO DAILY, TAB.CHEW 12/19/15 Albuterol Sulfate* (Proair HFA*) 8.5 Gm Hfa.aer.ad, 2 PUFF INH Q4H Y for WHEEZING AND SOB, INH 06/12/14 Discontinued Reported Medications Apixaban* (Eliquis*) 5 Mg Tablet, 5 MG PO BID, TAB 09/09/16 Insulin Detemir (Levemir Flextouch) 100 Unit/1 Ml Insuln.pen, 90 UNIT SQ 09/09/16 Benzonatate* (Tessalon Perle*) 100 Mg Capsule, 100 MG PO Q6, CAP 12/19/15 Omeprazole* (Prilosec*) 40 Mg Capsule.dr, 40 MG PO DAILY 08/31/12 Discontinued Scripts [Vancomycin Iv Per Pharmacy] 1 EA EACH No Conflict Check, 0 EA XX .PER PROTOCOL for 14 Days Prov:MARSHAL SHARP MD 11/01/16 Fluconazole* (Diflucan*) 100 Mg Tablet, 100 MG PO DAILY for 14 Days, TAB Prov:MARSHAL SHARP MD 11/01/16 Follow-up Plan Follow up with Physician at SNF, follow up at HD unit for scheduled HD. follow up with General surgery as outpatient for wound care Primary Care Provider Randy Miranda Time spent on discharge: > 30 minutes SUMMER SANCHEZ MD Dec 25, 2016 00:00
== END 2016-12-22 20:18 | DRG 570 ==
LOC: MS4 06:40 → PP2 11-13 17:24 → MS4 11-17 23:43 → PP2 11-25 00:20
PROVIDERS: ADMIT Family Medicine; ATTEND Family Medicine
PROC: 5A1D60Z (ICD-10-PCS; principal; 2016-11-11)
PROC: 30233N1 Transfusion of Nonautologous Red Blood Cells into Peripheral Vein, Percutaneous Approach (ICD-10-PCS; 2016-11-11)
PROC: 30233N1 Transfusion of Nonautologous Red Blood Cells into Peripheral Vein, Percutaneous Approach (ICD-10-PCS; 2016-11-12)
PROC: 30233N1 Transfusion of Nonautologous Red Blood Cells into Peripheral Vein, Percutaneous Approach (ICD-10-PCS; 2016-11-26)
PROC: 30233N1 Transfusion of Nonautologous Red Blood Cells into Peripheral Vein, Percutaneous Approach (ICD-10-PCS; 2016-12-01)
PROC: 0DB38ZX Excision of Lower Esophagus, Via Natural or Artificial Opening Endoscopic, Diagnostic (ICD-10-PCS; 2016-12-03)
PROC: 0DB68ZX Excision of Stomach, Via Natural or Artificial Opening Endoscopic, Diagnostic (ICD-10-PCS; 2016-12-03)
PROC: 30233N1 Transfusion of Nonautologous Red Blood Cells into Peripheral Vein, Percutaneous Approach (ICD-10-PCS; 2016-12-18)
PROC: 30233N1 Transfusion of Nonautologous Red Blood Cells into Peripheral Vein, Percutaneous Approach (ICD-10-PCS; 2016-12-19)
PROC: 0JBL0ZZ Excision of Right Upper Leg Subcutaneous Tissue and Fascia, Open Approach (ICD-10-PCS; 2016-12-21)
DX: L03.115 Cellulitis of right lower limb (principal); J18.9 Pneumonia, unspecified organism; G92 Toxic encephalopathy; L89.229 Pressure ulcer of left hip, unspecified stage; N18.6 End stage renal disease; I12.0 Hypertensive chronic kidney disease with stage 5 chronic kidney disease or end stage renal disease; E87.2 Acidosis; K92.2 Gastrointestinal hemorrhage, unspecified; Z68.41 Body mass index [BMI] 40.0-44.9, adult; L03.116 Cellulitis of left lower limb; E11.22 Type 2 diabetes mellitus with diabetic chronic kidney disease; E11.65 Type 2 diabetes mellitus with hyperglycemia; Z99.2 Dependence on renal dialysis; E66.01 Morbid (severe) obesity due to excess calories; I48.2 Chronic atrial fibrillation; J44.9 Chronic obstructive pulmonary disease, unspecified; E78.5 Hyperlipidemia, unspecified; I25.10 Atherosclerotic heart disease of native coronary artery without angina pectoris; D63.1 Anemia in chronic kidney disease; I87.8 Other specified disorders of veins; F41.9 Anxiety disorder, unspecified; Y95 Nosocomial condition; K20.8 Other esophagitis; K29.00 Acute gastritis without bleeding; K44.9 Diaphragmatic hernia without obstruction or gangrene; I87.2 Venous insufficiency (chronic) (peripheral); L89.611 Pressure ulcer of right heel, stage 1; L89.612 Pressure ulcer of right heel, stage 2; E11.621 Type 2 diabetes mellitus with foot ulcer; I70.293 Other atherosclerosis of native arteries of extremities, bilateral legs; L89.899 Pressure ulcer of other site, unspecified stage; G47.00 Insomnia, unspecified; E83.39 Other disorders of phosphorus metabolism; E83.52 Hypercalcemia; Z91.81 History of falling; Z79.4 Long term (current) use of insulin; Z79.02 Long term (current) use of antithrombotics/antiplatelets; Z79.82 Long term (current) use of aspirin; Z88.0 Allergy status to penicillin; Z87.891 Personal history of nicotine dependence
CPT/HCPCS: 36430; 71010; 80048; 80053; 80069; 80202; 81001; 82270; 82550; 82553; 82962; 83605; 83735; 84100; 84443; 84484; 85014; 85018; 85025; 85610; 85730; 86704; 86709; 86803; 86850; 86900; 86901; 86920; 87081; 87086; 87340; 88304; 88305; 88312; 88313; 90935; 92526; 92610; 93005; 93970; 94640; 94664; 97003; 97110; 97162; 97164; 97166; 97530; 97535; A4310; C9113; J1170; J1580; J1815; J2060; J2185; J2250; J2270; J2765; J2916; J3370; J3480; J7030; J7040; J7050; P9016; P9047; Q4081

== ENCOUNTER 2017-01-12 00:07 | Inpatient (IN) | payer OTHER ==
[2017-01-12] VITALS (83 sets, daily range): BP systolic 64–134; BP diastolic 20–116; PULSE 86–133; RESP 7–28; TEMP 97.6; Ht 165.1 cm; Wt 92.4 kg
[~2017-01-12] VITALS: Ht 165.1 cm; Wt 92.4 kg
[~2017-01-12 00:07] MED LIST changes: -APIX5TAB PO; -BENZ100C70 PO; +CARI350T29 PO; +EPO10ESRD SC; -FLUC100T PO; +INSU100I27 SC; -INSU100I27 SQ; +NICO1PAT6 TRANSDERM; +NOVO3I SC; -OMEP40CA3 PO; +PANT40VI7 IV; +SAN30GM TOP; +SUCR1TAB27 PO; -Vancomycin Iv Per Pharmacy XX
[2017-01-12 00:36] LABS: ABNORMAL IP MESSAGE 1; HEMATOCRIT 17.8 % (37.0-47.0); MEAN CORPUSCULAR HEMOGLOBIN 26.7 pg (29.0-33.0); MEAN CORPUSCULAR HGB CONC 30.3 g/dl (32.0-37.0); MEAN CORPUSCULAR VOLUME 88.1 fl (82.0-101.0); NUCLEATED RED BLOOD CELLS% 1.4 /100WBC (0.0-0.0); PLATELET COUNT 495 10^3/UL (140-415); RED BLOOD COUNT 2.02 10^6/ul (4.20-5.40); RED CELL DISTRIBUTION WIDTH 19.9 % (11.5-14.5)
[2017-01-12 00:50] LABS: INR 2.29; PROTIME 25.5 Sec (12.2-14.2)
[2017-01-12] MEDS ORDERED: SODIUM CHLORIDE 0.9% 1L BAG IV* STA (00:50)
[2017-01-12 01:01] LABS: PARTIAL THROMBOPLASTIN TIME 105.4 Sec (25.0-35.0)
[2017-01-12 01:02] LABS: POSITIVE DIFF @See below
[2017-01-12 01:03] LABS: HEMOGLOBIN 5.4 g/dl (12.0-16.0)
[2017-01-12 01:04] LABS: LACTIC ACID 1.1 mmol/L (0.5-2.0)
[2017-01-12 01:09] LABS: ALANINE AMINOTRANSFERASE 30 IU/L (13-69); ALKALINE PHOSPHATASE 128 IU/L (42-121); ANION GAP 20 (8-16); ASPARTATE AMINO TRANSFERASE 16 IU/L (15-46); BLOOD UREA NITROGEN 36 mg/dl (7-20); CALCIUM 10.4 mg/dl (8.4-10.2); CARBON DIOXIDE 23 mmol/L (21-31); CHLORIDE 95 mmol/L (97-110); GLUCOSE 137 mg/dl (70-220); POTASSIUM 3.8 mmol/L (3.5-5.1); SODIUM 134 mmol/L (135-144)
[2017-01-12 01:10] LABS: ALBUMIN 2.5 g/dl (3.3-4.9); ALBUMIN/GLOBULIN RATIO 0.96; TOTAL PROTEIN 5.1 g/dl (6.1-8.1)
[2017-01-12 01:15] LABS: AMMONIA < 9 umol/l (9-30)
--- NOTE | 2017-01-12 01:16 | RADRPT ---
PROCEDURE: CHEST - 1 VIEW CLINICAL INDICATION: 61-year-old female with shortness of breath and sepsis. TECHNIQUE: A single frontal AP upright portable view of the chest was performed. The images were reviewed on a PACS workstation. COMPARISON: Chest x-ray December 16, 2016. FINDINGS: The cardiomediastinal silhouette is mildly enlarged but without significant interval change. The th oracic aortic arch is calcified. Chronic lung changes are present. There is right lower lung zone consolidation. There is no evidence for congestive heart failure. There is no evidence for pneumotho rax. Surgical clips are seen within the left upper extremity soft tissue. The osseous structures are intact. IMPRESSION: 1. Cardiomegaly. 2. Calcified thoracic aortic arch. 3. Chronic lung changes. 4. Right lower lung zone consolidation. .Vladimir Alfaro MD, Date Time Electronically viewed and signed by .Vladimir Alfaro MD, MD on 01/12/2017 01:16 .M/
[2017-01-12 01:17] LABS: ETHANOL < 10.0 mg/dl
--- NOTE | 2017-01-12 01:51 | ERA ---
ER Documentation Chief Complaint Date/Time DATE: 01/12/17 TIME: 01:48 Chief Complaint BIBA FROM [facility] FOR HYPOTENSION,WEAKNESS AND TARRY STOOL HPI 7-year-old female brought in from [place] for hypotension weakness and black tarry stool for the past 2-3 days. Hypertension was noted today. No fevers no chills. Patient gives limited limited history secondary patient's baseline mental status. ROS All systems reviewed and are negative except as per history of present illness. Medications Home Meds Active Scripts Insulin Aspart* (Novolog Insulin Pen*) 100 Unit/Ml Soln, 0 UNIT SC WITH MEALS BEDTIME for 30 Days Prov:CHIP MUNSON 12/17/16 Collagenase* (Santyl*) 30 Gm Oint..gm., 1 APPLIC TOP DAILY for 30 Days Prov:CHIP MUNSON 12/17/16 Insulin Detemir (Levemir Flextouch) 100 Unit/1 Ml Insuln.pen, 30 UNIT SC QHS@20 for 30 Days Prov:CHIP MUNSON 12/17/16 Sucralfate (Carafate) 1 Gm Tablet, 1 GM PO QID for 15 Days, TAB Prov:CHIP MUNSON 12/17/16 Pantoprazole* (Protonix* IV) 40 Mg Soln, 40 MG IV BID@06,18 for 30 Days Prov:CHIP MUNSON 12/17/16 Epoetin Hang (Epogen) 10,000 Units/Ml Soln, 98509 UNITS SC TuThSa@17 for 30 Days Prov:CHIP MUNSON 12/17/16 Nicotine* (Nicotine* Patch) 21 mg/day Patch, 1 PATCH TRANSDERM DAILY for 30 Days Prov:CHIP MUNSON 12/17/16 Reported Medications Carisoprodol* (Carisoprodol*) 350 Mg Tablet, 350 MG PO Q8 Y for MUSCLE SPASMS, TAB 11/11/16 Tiotropium [place]* (Spiriva*) 18 Mcg Cap.w.dev, 1 CAP INHALATION DAILY, #30 CAP 09/09/16 Montelukast Sodium* (Montelukast Sodium*) 10 Mg Tablet, 10 MG PO QAM, #30 TAB 09/09/16 Calcium Acetate* (Phoslo*) 667 Mg Tablet, 667 MG PO WITH MEALS, TAB TAKE 4 TAB 09/09/16 Pyridoxine Hcl* (Pyridoxine Hcl*) 50 Mg Tablet, 50 MG PO DAILY, TAB 09/09/16 Zolpidem Tartrate* (Zolpidem Tartrate*) 5 Mg Tablet, 5 MG PO QHS Y for INSOMNIA , #30 TAB 09/09/16 Oxycodone HCl/Acetaminophen (Percocet 10-325 mg Tablet) 1 Each Tablet, 1 EACH PO Q6 Y for PRN, TAB 09/09/16 Budesonide-Formoterol Fumarate* (Symbicort*) 160-4.5 Hfa.aer.ad, 2 PUFF INHALATION BID, #1 EACH 12/19/15 Furosemide* (Furosemide*) 80 Mg Tablet, 80 MG PO DAILY, #30 TAB 12/19/15 Atorvastatin* (Atorvastatin*) 40 Mg Tablet, 40 MG PO QHS, #30 TAB 12/19/15 Amlodipine Besylate* (Amlodipine Besylate*) 5 Mg Tablet, 5 MG PO DAILY, #30 TAB 12/19/15 Losartan Potassium* (Losartan Potassium*) 50 Mg Tablet, 50 MG PO BID, TAB 12/19/15 Cinacalcet* (Sensipar*) 30 Mg Tab, 30 MG PO, TAB 12/19/15 Diltiazem Hcl* (Cardizem SR*) 60 Mg Capsr, 60 MG PO Q12, #60 CAP 12/19/15 Metoprolol Succinate* (Toprol XL*) 50 Mg Tab.er.24h, 50 MG PO BID, #30 TAB 12/19/15 Metoclopramide* (Reglan*) 5 Mg Tablet, 5 MG PO AC MEALS, TAB 12/19/15 Aspirin* (Aspirin* Chew) 81 Mg Tab.chew, 81 MG PO DAILY, TAB.CHEW 12/19/15 Albuterol Sulfate* (Proair HFA*) 8.5 Gm Hfa.aer.ad, 2 PUFF INH Q4H Y for WHEEZING AND SOB, INH 06/12/14 Allergies Allergies: Coded Allergies: Penicillins (Verified Allergy, Severe, ALL OVER BODY RASH, 11/14/16) ciprofloxacin (Verified Allergy, Severe, TENDONITIS, 11/14/16) PMhx/Soc History of Surgery: Yes (C SECTION, TUBAL LIGATION) Anesthesia Reaction: No Hx Neurological Disorder: No Hx Respiratory Disorders: Yes (COPD) Hx Cardiac Disorders: Yes (HTN, HYPERCHOLESTEROL) Hx Psychiatric Problems: No Hx Miscellaneous Medical Probl: Yes (ESRD on HD, obesity, COPD, HTN, A-FIB, falls) Hx Alcohol Use: No Hx Substance Use: No Hx Tobacco Use: No Smoking Status: Never smoker Physical Exam Vitals Vital Signs Date Time Temp Pulse Resp B/P Pulse Ox O2 Delivery O2 Flow Rate FiO2 01/12/17 01:45 98 12 90/47 100 Non Rebreather 15.0 01/12/17 01:00 74/54 01/12/17 00:36 107 61/38 01/12/17 00:14 Non Rebreather 15 01/12/17 00:14 97.7 109 16 82/46 90 Physical Exam Const: [] Head: Atraumatic Eyes: Normal Conjunctiva ENT: Normal External Ears, Nose and Mouth. Neck: Full range of motion..~ No meningismus. Resp: Clear to auscultation bilaterally Cardio: Regular rate and rhythm, no murmurs Abd: Soft, non tender, non distended. Normal bowel sounds Skin: No petechiae or rashes Back: No midline or flank tenderness Ext: No cyanosis, or edema Neur: Awake and alert Psych: Normal Mood and Affect Result Diagram: 01/12/17 0012 01/12/17 0012 Results 24 hrs Laboratory Tests Test 01/12/17 00:12 White Blood Count 25.010^3/ul Red Blood Count 2.0210^6/ul Hemoglobin 5.4g/dl Hematocrit 17.8% Mean Corpuscular Volume 88.1fl Mean Corpuscular Hemoglobin 26.7pg Mean Corpuscular Hemoglobin Concent 30.3g/dl Red Cell Distribution Width 19.9% Platelet Count 92233^3/UL Mean Platelet Volume 9.0fl Neutrophils % % Lymphocytes % % Monocytes % % Eosinophils % % Basophils % % Nucleated Red Blood Cells % 1.4/100WBC Neutrophils # (Manual) 20.710^3/ul Lymphocytes # 10^3/ul Monocytes # 10^3/ul Eosinophils # 10^3/ul Basophils # 10^3/ul Nucleated Red Blood Cells # 10^3/ul Prothrombin Time 25.5Sec Prothrombin Time Ratio 2.0 INR International Normalized Ratio 2.29 Activated Partial Thromboplast Time 105.4Sec Sodium Level 134mmol/L Potassium Level 3.8mmol/L Chloride Level 95mmol/L Carbon Dioxide Level 23mmol/L Anion Gap 20 Blood Urea Nitrogen 36mg/dl Creatinine 3.00mg/dl Glucose Level 137mg/dl Lactic Acid Level 1.1mmol/L Calcium Level 10.4mg/dl Total Bilirubin 0.0mg/dl Direct Bilirubin 0.00mg/dl Indirect Bilirubin 0.0mg/dl Aspartate Amino Transf (AST/SGOT) 16IU/L Alanine Aminotransferase (ALT/SGPT) 30IU/L Alkaline Phosphatase 128IU/L Ammonia < 9umol/l Troponin I Pending Total Protein 5.1g/dl Albumin 2.5g/dl Globulin 2.60g/dl Albumin/Globulin Ratio 0.96 Salicylates Level Pending Acetaminophen Level Pending Ethyl Alcohol Level < 10.0mg/dl Current Medications Medications (Trade) Dose Ordered Sig/Danielle Route PRN Reason Start Time Stop Time Status Last Admin Dose Admin Sodium Chloride (NS) 3,950 ml BOLUS OVER 2 HOURS STAT IV* 01/12/17 00:50 01/12/17 00:51 DC 01/12/17 00:56 Procedures/MDM EKG: Rate/Rhythm: [Normal Sinus Rhythm] QRS, ST, T-waves: [No changes consistent w/ acute ischemia] Impression: [No evidence of ischemia or arrhythmia] Chest X-ray 1V Interpreted by me: Soft Tissue: No acute abnormalities Bones: No acute abnormalities Mediastinum/Cardiac Silhouette/Lungs: Right lower lobe pneumonia Medical decision-makin-year-old female with multiple issues. At this time she has no evidence of sepsis with negative lactic acid, however given severely high leukocytosis and right lower lobe pneumonia she has been started on broad- spectrum antibiotics. Also typed and crossed for 2 units of blood. Patient will be admitted to the intensive care unit for further evaluation and management to the hospitalist. Critical Care: Time: 45 minutes Treatments/Evaluations: Close monitoring and treatment of unstable vital signs, cardiorespiratory, and neurologic status, while maintaining tight balance of fluid, respiratory, and cardiac interventions.This time is independent of any separately billable procedural time Departure Diagnosis: Primary Impression: Pneumonia Qualified Code: J18.1 - Pneumonia of right lower lobe due to infectious organism Additional Impression: Anemia Qualified Code: D64.9 - Anemia, unspecified type Condition: Critical MARSHAL VILLASENOR Jan 12, 2017 01:51
[2017-01-12 02:06] LABS: ANISOCYTOSIS 2+ (0-0); ERYTHROBLAST% (NRBC) (M) 2 % (0-0); HYPOCHROMASIA 1+ (0-0); METAMYELOCYTES %M 1 % (0-0); MICROCYTOSIS 1+ (0-0); MONOCYTES % (M) 3 % (0-11); PLATELET ESTIMATE NORMAL; POIKILOCYTOSIS 2+ (0-0); POLYCHROMASIA 1+ (0-0); SCHISTOCYTES 1+ (0-0); TARGET CELLS 2+ (0-0)
--- NOTE | 2017-01-12 02:07 | RADRPT ---
PROCEDURE: CT BRAIN WITHOUT CONTRAST CLINICAL INDICATION: 61-year-old female with altered level of consciousness. TECHNIQUE: The study was performed utilizing ControlScan VCT 64-slice CT scanner. Direct axial sections were obtained from the foramen magnum to the vertex without the use of intravenous contrast material. The study was repeated secondary to motion on the initial scan. Sagittal and coronal refo rmations were obtained. One or more the following dose reduction techniques were utilized: automated exposure control, adjustment of the mA and/or kV according to patient's size or use of iterative re construction technique. The images were viewed on a PACS workstation. CTD/vol = 90.0 mGy; Total Exam DLP = 1440.5 mGy-cm. COMPARISON: None. FINDINGS: There is mild prominence of the sulci and cisternal spaces consistent with diffuse volume loss with compensatory ventricular enlargement. There is no evidence for mass effect or midline shift. There are periventricular areas of decreased density consistent with microangiopathic ischemic changes. There is no evidence for acute intra or extra-axial blood. Calcifications are seen within the intrac ranial carotid arteries bilaterally. The bony calvarium is intact. There is a mild dependent mucosal thickening diminutive left sphenoid sinus. The mastoid air cells are without significant soft tiss ue. IMPRESSION: 1. Mild diffuse volume loss. 2. Microangiopathic ischemic changes. 3. Mild mucosal thickening diminutive left sphenoid sinus. .Vladimir Alfaro MD, Date Time Electronically viewed and signed by .Vladimir Alfaro MD, on 01/12/2017 02:06 .Iliana/
[2017-01-12 02:26] LABS: ACETAMINOPHEN < 10.0 ug/ml (10.0-30.0); SALICYLATE < 1.0 mg/dl (5.0-30.0)
[2017-01-12] MEDS ORDERED: BISA-57 PO (03:05)
[2017-01-12] MEDS ORDERED: APIX5TAB PO (03:05)
[2017-01-12] MEDS ORDERED: NICO1PAT6 TD (03:05)
[2017-01-12] MEDS ORDERED: DILT120C10 PO (03:05)
[2017-01-12] MEDS ORDERED: CARI350T PO (03:05)
[2017-01-12] MEDS ORDERED: PANT40TA4 PO (03:05)
[2017-01-12] MEDS ORDERED: ONDA-43 PO (03:05)
[2017-01-12] MEDS ORDERED: PYRI50TA80 PO (03:05)
[2017-01-12] MEDS ORDERED: SUCR1TAB56 PO (03:05)
[2017-01-12] MEDS ORDERED: [UNRECOGNIZED DRUG - CODE] PO (03:05)
[2017-01-12] MEDS ORDERED: IPRA3AMP INHALATION (03:05)
[2017-01-12] MEDS ORDERED: CRAN425C PO (03:05)
[2017-01-12] MEDS ORDERED: POLY17PO6 PO (03:05)
[2017-01-12] MEDS ORDERED: MAGNESIUM HYDROXIDE 30ML CUP PO PRN (03:30)
[2017-01-12] MEDS ORDERED: METOCLOPRAMIDE 10 MG INJ IV PRN (03:30)
[2017-01-12] MEDS ORDERED: NORepinephrine 8MG/250 ML (PMX 250 ML IV SCH (03:30)
[2017-01-12] MEDS ORDERED: ONDANSETRON 4 MG INJ IV PRN (03:30)
[2017-01-12] MEDS ORDERED: ACETAMINOPHEN 650MG/20.3ML CUP PO PRN (03:30)
[2017-01-12] MEDS ORDERED: ALBUTEROL/IPRATROPIUM (NEB) 3 ML AMP NEB PRN (03:30)
[2017-01-12] MEDS ORDERED: DEXTROSE 50% 50 ML SYRINGE IV PRN (04:00)
[2017-01-12] MEDS ORDERED: VANCOMYCIN IV PER PHARMACY XX SCH (04:00)
[2017-01-12] MEDS ORDERED: GLUCAGON 1 MG INJ IM PRN (04:00)
[2017-01-12] MEDS ORDERED: GLUCOSE GEL 15 GRAM TUBE PO PRN ×2 (04:00)
[2017-01-12] MEDS ORDERED: GLUCOSE GEL 15 GRAM TUBE BUCCAL PRN (04:00)
[2017-01-12] MEDS ORDERED: SOD CHLORIDE 0.9% 250 ML IV* ONE (04:20)
[2017-01-12] MEDS ORDERED: PENDING SANTYL ORDER FOR WOUND CARE XX PRN (04:30)
[2017-01-12] MEDS ORDERED: LIDOCAINE 1% (MPF) 5 ML VIAL SC ONE ×2 (04:30→05:00)
--- NOTE | 2017-01-12 04:59 | HP ---
Date/Time of Note Date/Time of Note DATE: 01/12/17 TIME: 04:42 Assessment/Plan VTE Prophylaxis VTE Prophylaxis Intervention: SCD's Assessment/Plan Assessment/Plan 1. Shock, secondary to blood loss and sepsis from pneumonia -Blood transfusion and pressor support -IV antibiotic -Follow-up culture results -ID consult 2. ESRD on HD -Nephrology consult for dialysis 3. Lower extremity thigh decubitus ulcer -Patient had debridement with placement of a wound VAC during previous hospitalizations. -Will reconsult general surgery and vascular surgery -Wound care consult 4. Insulin-dependent diabetes -Continue insulin with adjustment as needed 5. History of chronic atrial fibrillation -For now, will hold beta-ni, calcium channel blockers and Eliquis given hypotension and severe anemia - 6. Electrolyte abnormalities -Correct as needed HPI/ROS Admit Date/Time Admit Date/Time Hx of Present Illness This is a 61-year-old female with a history of hypertension, insulin-dependent diabetes, ESRD on HD, lower extremity thigh gangrenous decubitus ulcer status post debridement, chronic atrial fibrillation, erosive gastritis and esophagitis who was sent from the rehab for weakness and hypotension. Reportedly, patient was given 500 cc of IV fluid bolus but she remained hypotensive. Currently patient is lethargic and at times agitated and as such information is gathered from chart review and from the ER physician. She has been admitted here multiple times, last admission being this months. She has an upper thigh gangrenous decubitus ulcers which were debrided previously with placement of a wound VAC. When patient presented to the ER today, she was hypotensive with a blood pressure of 61/38 with a heart rate of 107. Labs shows a hemoglobin of 5.4. She also has elevated white counts of 25,000. Chest x-ray shows right lung zone consolidation. Currently patient is admitted to ICU and blood pressure on the monitor is 84/53. An attempt in the ER was made to contact family to get a consent for blood transfusion but it was unsuccessful. Of note, patient has a history of GI bleed and currently she takes Eliquis for A-fib. There is no report from the facility that the patient was sent from, of any hematemesis, dark stool or bright red blood per rectum. She had an EGD here last month which showed erosive gastritis, esophagitis and probable Land's esophagus. . . PMH/Family/Social Past Medical History 1. Left lower extremity thigh gangrenous decubitus ulcer status post debridement. 2. Uncontrolled diabetes type 2, on insulin. 3. Peripheral vascular disease. 4. Bilateral lower extremity atherosclerosis with ulcers 5. Bilateral lower extremity venous insufficiency with ulcers. 6. End-stage renal disease, on dialysis. 7. Positive smoking history, discuss about cessation. 8. Chronic atrial fibrillation, rate controlled. 9. Probable underlying obstructive sleep apnea. Past Surgical History Past Surgical Hx: other Social History Alcohol Use: none Smoking Status: Former smoker Drug Use: none Exam/Review of Systems Vital Signs Vitals Vital Signs Date Time Temp Pulse Resp B/P Pulse Ox O2 Delivery O2 Flow Rate FiO2 01/12/17 03:19 98 16 74/58 100 Non Rebreather 01/12/17 02:43 97.6 01/12/17 01:45 15.0 Exam Constitutional: other (Lethargic, at times agitated) Head: atraumatic, normocephalic Eyes: EOMI, PERRL Respiratory: diminished breath sounds Cardiovascular: irregular rhythm, other (Occasional extra beats are heard) Gastrointestinal: soft Extremities: other (Severe bilateral thigh decubitus ulcers. Positive lower extremity pitting edema) Labs Result Diagram: 01/12/17 0012 01/12/17 0012 Medications Medications Current Medications Ondansetron HCl (Zofran Inj) 4 mg Q6H PRN IV NAUSEA AND/OR VOMITING; Start at 03:30 Metoclopramide HCl (Reglan) 10 mg Q6H PRN IV NAUSEA AND/OR VOMITING; Start at 03:30 Acetaminophen (Tylenol Liquid) 650 mg Q6H PRN PO PAIN LEVEL 1-3 OR FEVER; Start 01/12/17 at 03:30 Morphine Sulfate (morphine) 2 mg Q4H PRN IV PAIN LEVEL 7-10; Start 01/12/17 at 03:30 Magnesium Hydroxide (Milk Of Mag) 30 ml DAILY PRN PO CONSTIPATION; Start at 03:30 Pantoprazole (Protonix Iv) 40 mg Q12H IV ; Start 01/12/17 at 06:00 Atorvastatin Calcium (Lipitor) 40 mg QHS PO ; Start 01/12/17 at 21:00; Status UNV Carisoprodol (Soma) 350 mg Q8 PRN PO MUSCLE SPASMS; Start 01/12/17 at 03:30 Cinacalcet (Sensipar) 30 mg DAILY PO ; Start 01/12/17 at 09:00; Status UNV Insulin Detemir (Levemir) 30 unit QHS@20 SC ; Start 01/12/17 at 20:00; Status UNV Montelukast Sodium (Singulair) 10 mg QAM PO ; Start 01/12/17 at 09:00; Status UNV Sucralfate (Carafate) 1 gm QID PO ; Start 01/12/17 at 09:00 Miscellaneous Information 2 puff BID INHALATION ; Start 01/12/17 at 09:00; Status UNV Diagnostic Test (Pha) (Accu-Chek) 1 ea 02 XX ; Start 01/13/17 at 02:00 Miscellaneous Information 1 ea NOTE XX ; Start 01/12/17 at 04:00 Glucose (Glutose) 15 gm Q15M PRN PO DECREASED GLUCOSE; Start 01/12/17 at 04:00 Glucose (Glutose) 22.5 gm Q15M PRN PO DECREASED GLUCOSE; Start 01/12/17 at 04: 00 Dextrose (D50w Syringe) 25 ml Q15M PRN IV DECREASED GLUCOSE; Start 01/12/17 at 04:00 Dextrose (D50w Syringe) 50 ml Q15M PRN IV DECREASED GLUCOSE; Start 01/12/17 at 04:00 Glucagon (Glucagen) 1 mg Q15M PRN IM DECREASED GLUCOSE; Start 01/12/17 at 04:00 Glucose 15 gm 15 gm Q15M PRN BUCCAL DECREASED GLUCOSE; Start 01/12/17 at 04:00 Vancomycin HCl/ Sodium Chloride (Vancocin/NS) 500 ml @ 125 mls/hr ONCE ONCE IVPB ; Start 01/12/17 at 05:00; Stop 01/12/17 at 08:59 Lidocaine 5 ml 5 ml ONCE ONCE SC ; Start 01/12/17 at 04:30; Stop 01/12/17 at 04 :31; Status UNV Sodium Chloride (NS) 250 ml @ 0 mls/hr Q0M ONCE IV* ; Start 01/12/17 at 04:20; Stop 01/12/17 at 04:21; Status UNV Miscellaneous Information (Pending [facility] Order For Wound Care) This patient sexton... PRN PRN XX WOUND CARE; Start 01/12/17 at 04:30; Status UNV Lidocaine (Xylocaine 1% (Mpf)) 5 ml ONCE ONCE SC ; Start 01/12/17 at 05:00; Stop 01/12/17 at 05:01; Status UNV MARSHAL SHARP MD Jan 12, 2017 04:55
[2017-01-12] MEDS ORDERED: VANCOMYCIN 2 GM in SOD CHLORIDE 0.9% 500 ML IVPB ONE (05:00)
[2017-01-12 05:27] LABS: AADO2 Arterial 442.4 mmHg (7.0-24.0); Allen Test ACCEPTAB; Arterial Fraction of Oxyhgb 98.5 % (93.0-99.0); Arterial HCO3 19.3 mmol/L (22.0-26.0); Arterial MetHb 0.3 % (0.0-1.5); MODE MASK - NRB
[2017-01-12] MEDS: PANTOPRAZOLE 40 MG INJ IV SCH ×2 (05:53→18:20)
[2017-01-12] MEDS: INSULIN ASPART [NOVOLOG] 3 ML PEN SC SCH ×4 (07:35→21:00)
[2017-01-12] MEDS: SOD CHLORIDE 0.9% 1,000 ML IV SCH ×3 (07:35→16:30)
[2017-01-12] MEDS: SUCRALFATE 1 GM TAB PO SCH ×4 (09:00→21:58)
[2017-01-12] MEDS: CINACALCET 30 MG TAB PO SCH (09:00)
[2017-01-12] MEDS: SALMETEROL/FLUTICASONE 250/50 INHA INH SCH ×2 (11:00→21:00)
[2017-01-12] MEDS ORDERED: AZTREONAM 1 GM/NS (PMX) 50 ML IVPB SCH (12:00)
[2017-01-12] MEDS ORDERED: CASPOFUNGIN 70 MG in SOD CHLORIDE 0.9% 250 ML IVPB ONE (12:00)
[2017-01-12 13:08] LABS: ABNORMAL IP MESSAGE 1; BASOPHILS % 0.1 % (0.0-2.0); EOSINOPHILS % 0.1 % (0.0-7.0); HEMATOCRIT 23.2 % (37.0-47.0); HEMOGLOBIN 7.3 g/dl (12.0-16.0); LYMPHOCYTES # 1.7 10^3/ul (0.8-2.9); LYMPHOCYTES % 7.9 % (15.0-51.0); MEAN CORPUSCULAR HEMOGLOBIN 27.3 pg (29.0-33.0); MEAN CORPUSCULAR HGB CONC 31.5 g/dl (32.0-37.0); MEAN CORPUSCULAR VOLUME 86.9 fl (82.0-101.0); MEAN PLATELET VOLUME 9.3 fl (7.4-10.4); MONOCYTE # 2.1 10^3/ul (0.3-0.9); NEUTROPHILS % 75.5 % (39.0-77.0); NUCLEATED RED BLOOD CELLS # 0.6 10^3/ul (0.0-0.0); NUCLEATED RED BLOOD CELLS% 2.8 /100WBC (0.0-0.0); PLATELET COUNT 406 10^3/UL (140-415); RED BLOOD COUNT 2.67 10^6/ul (4.20-5.40); RED CELL DISTRIBUTION WIDTH 18.8 % (11.5-14.5); WHITE BLOOD COUNT 21.1 10^3/ul (4.8-10.8)
[2017-01-12] MEDS: SODIUM HYPOCHLORITE 0.125% 473 ML BTL IRR SCH ×2 (13:27→21:58)
[2017-01-12] MEDS: MEROPENEM 500MG/50 ML (PMX) 50 ML IVPB SCH (13:45)
--- NOTE | 2017-01-12 14:24 | CONS ---
Date/Time of Note Date/Time of Note DATE: 01/12/17 TIME: 14:24 Assessment/Plan Assessment/Plan Chief Complaint/Hosp Course 1. Bilateral upper thighs and right flank wounds: 2/2 pressure from immobility; atherosclerosis but not flow limiting (previous records); left thigh s/p wound vac; right thigh s/p debridement -debridement when patient medically stable -local wound care with dakin's -offloading and turning frequently -specialty mattress -abx per sensitivity- cultures pending 2.Septic shock: multifactorial: 2/2 #1 + profound anemia: on pressors, prbc tx -supportive -as above 3. Normocytic hypochromic anemia: hx of gi bleed esophagitis, gastritis; prbc tx ongoing -monitor and transfuse prn -work up for recurrent gi bleed 4. Leukocytosis: improved -as above 5. Hyponatremia: -judicious fluids 6. ESRD with HD -per nephro 7. Mild hypercalcemia: likely 2/2 hypovolemia -judicious fluids 8. Hypoalbuminemia: likely 2/2 malnutrition + inflammation -supportive -optimize nutrition 9. Coagulopathy: on Eliquis outpatient -rule out acute bleed before restarting anticoagulant 10. Venous stasis dermatitis 11. Diabetes -blood sugar optimization 12. History of falls -PT as patient condition permits -fall precautions 13. Morbidly Obese -diet and physical modification Thank you. Patient seen and examined in collaboration with Dr. Kenney Forrester. Problems: Consultation Date/Type/Reason Admit Date/Time Date of Consultation: Jan 12, 2017 Type of Consultation: Surgical Reason for Consultation wounds bilateral thigh Referring Provider: ERICK MATOS Hx of Present Illness Jaida Anthony is a 61yo woman who is known to us from a previous admission. She was sent from the rehab for weakness and hypotension despite fluid bolus. On admission she was also found to be tacycardic with significant anemia, leukocytosis and chest x-ray shows right lung zone consolidation. Currently she is still in ICU, on vasopressors. Additionally, she has a history of GI bleed, erosive gastritis esophagitis and is taking anticoagulants for her atrial fibrillation; she is also being transfused PRBC's. She is non-responsive and looks comfortable. No reports of hematemesis, or hematochezia. She was also noted to have multiple wounds on bilateral thigh which appear to be infected. General surgery consult was called to evaluate and treat. . Subjective hx not possible: pt critical Constitutional: requiring IVF (and pressors), requiring O2, No febrile Eyes: No discharge ENT: No congestion Respiratory: No shortness of breath Gastrointestinal: No blood, No diarrhea, No nausea, No vomiting Genitourinary: No bleeding Skin: other (multiple wounds; malodorous) Neurologic: No headache Past Medical History 1. ESRD 2. bilateral lower extremity ulcers 3. gastritis, esophagitis 4. upper GI bleed 5. diabetes type 2 6. pneumonia 7. morbidly obese 8. dyslipidemia 9. bilateral lower extremity diabetic foot ulcers 10. atherosclerosis 11. venous insufficiency 12. venous stasis ulcers 13. bilateral chronic cellulitis 14. coronary artery disease 15. hypertension 16. atrial fibrillation 17. right thigh decubitus ulcer. Past Surgical History 1. Wound debridement 2. fistula creation 3.perm-catheter placement. Past Surgical Hx: other Social History Alcohol Use: none Smoking Status: Former smoker Drug Use: none Exam/Review of Systems Vital Signs Vitals Vital Signs Date Time Temp Pulse Resp B/P Pulse Ox O2 Delivery O2 Flow Rate FiO2 01/12/17 09:45 100 11 112/52 100 01/12/17 09:00 Nasal Cannula 3.0 01/12/17 08:00 98.3 Intake and Output 01/11/17 01/11/17 01/12/17 15:00 23:00 07:00 Intake Total 324.375 ml Balance 324.375 ml Exam Constitutional: nonresponsive Psych: Constitutional: alert, oriented Psych: anxiety, No nl mood/affect Head: atraumatic, normocephalic Eyes: nl lids, nl sclera ENMT: No nl lips & teeth (missing teeth) Neck: non-tender, supple Respiratory: diminished Cardiovascular: regular rate and rhythm Gastrointestinal: non-tender, other (obese), soft Musculoskeletal: muscle weakness, No nl gait and stance Extremities: No edema, No normal pulses Neurological: nl speech, nl strength Skin: other (wounds: Right thigh/trochanter area with areas of necrotic tissue , no drainage; left thigh: wound bed with slough, no drainage) nl mood/affect Head: atraumatic, normocephalic Eyes: nl lids, nl sclera ENMT: No nl lips & teeth (missing teeth) Neck: non-tender, supple Respiratory: normal air movement Cardiovascular: regular rate and rhythm Gastrointestinal: non-tender, other (obese), soft Musculoskeletal: muscle weakness, No nl gait and stance Extremities: No edema, No normal pulses Neurological: nl speech, nl strength Skin: other (wounds: Right thigh/trochanter area with areas of necrosis, no drainage; left thigh: wound bed with slough, no drainage) Results Result Diagram: 01/12/17 1232 01/12/17 0012 Results 24 hrs Laboratory Tests Test 01/12/17 00:12 01/12/17 04:37 01/12/17 12:32 01/12/17 13:28 White Blood Count 25.0 #H 21.1 H Red Blood Count 2.02 #L 2.67 #L Hemoglobin 5.4 #*L 7.3 #L Hematocrit 17.8 #L 23.2 #L Mean Corpuscular Volume 88.1 86.9 Mean Corpuscular Hemoglobin 26.7 L 27.3 L Mean Corpuscular Hemoglobin Concent 30.3 L 31.5 L Red Cell Distribution Width 19.9 H 18.8 H Platelet Count 495 #H 406 Mean Platelet Volume 9.0 9.3 Neutrophils % 75.5 Segmented Neutrophils % (Manual) 88 H Lymphocytes % 7.9 L Lymphocytes % (Manual) 8 L Monocytes % 10.0 Monocytes % (Manual) 3 Eosinophils % 0.1 Basophils % 0.1 Metamyelocytes % (manual) 1 H Nucleated Red Blood Cells % 2 H 2.8 H Neutrophils # (Manual) 15.9 H Absolute Lymphocytes (Manual) 2.0 Lymphocytes # 1.7 Monocytes # 2.1 H Absolute Monocytes (Manual) 0.7 Eosinophils # 0.0 Basophils # 0.0 Metamyelocytes # 0.2 H Nucleated Red Blood Cells # 0.6 H Platelet Estimate NORMAL Polychromasia 1+ Hypochromasia 1+ Poikilocytosis 2+ Anisocytosis 2+ Microcytosis 1+ Macrocytosis 1+ Target Cells 2+ Schistocytes 1+ Prothrombin Time 25.5 #H Prothrombin Time Ratio 2.0 INR International Normalized Ratio 2.29 Activated Partial Thromboplast Time 105.4 *H Sodium Level 134 L Potassium Level 3.8 Chloride Level 95 L Carbon Dioxide Level 23 Anion Gap 20 H Blood Urea Nitrogen 36 H Creatinine 3.00 H Glucose Level 137 Lactic Acid Level 1.1 Calcium Level 10.4 H Total Bilirubin 0.0 L Direct Bilirubin 0.00 Indirect Bilirubin 0.0 Aspartate Amino Transf (AST/SGOT) 16 Alanine Aminotransferase (ALT/SGPT) 30 Alkaline Phosphatase 128 H Ammonia < 9 L Troponin I 0.020 Total Protein 5.1 L Albumin 2.5 L Globulin 2.60 Albumin/Globulin Ratio 0.96 Salicylates Level < 1.0 L Acetaminophen Level < 10.0 L Ethyl Alcohol Level < 10.0 Blood Gas Specimen Source Blood arterial Arterial Blood Date Drawn 01/12/2017 5:16:35 AM Arterial Blood pH (Temp corrected) 7.336 L Arterial Blood pCO2 (Temp correct) 37.0 Arterial Blood pO2 (Temp corrected) 233.6 H Arterial Blood HCO3 19.3 L Arterial Blood Base Excess -6.0 L Arterial Blood Oxygen Saturation 99.8 H Charly Test ACCEPTAB Arterial Blood Gas Puncture Site Right Radial Arterial Blood Carboxyhemoglobin 1.0 Arterial Blood Methemoglobin 0.3 Blood Gas A-a O2 Differential 442.4 H Oxyhemoglobin Percent 98.5 Total Hemoglobin 6.0 L Blood Gas Temperature 37.0 Blood Gas Respiration Rate 20.0 Blood Gas Modality MASK - NRB FiO2 100.0 Blood Gas Notified Whom Daniel AMARO RCP Blood Gas Notified Time 01/12/2017 5:27:11 AM Hemoglobin A1c 5.6 Bedside Glucose 157 Medications Medications Current Medications Ondansetron HCl (Zofran Inj) 4 mg Q6H PRN IV NAUSEA AND/OR VOMITING; Start at 03:30 Metoclopramide HCl (Reglan) 10 mg Q6H PRN IV NAUSEA AND/OR VOMITING; Start at 03:30 Acetaminophen (Tylenol Liquid) 650 mg Q6H PRN PO PAIN LEVEL 1-3 OR FEVER; Start 01/12/17 at 03:30 Morphine Sulfate (morphine) 2 mg Q4H PRN IV PAIN LEVEL 7-10; Start 01/12/17 at 03:30 Magnesium Hydroxide (Milk Of Mag) 30 ml DAILY PRN PO CONSTIPATION; Start at 03:30 Pantoprazole (Protonix Iv) 40 mg Q12H IV Last administered on 01/12/17t 05:53; Admin Dose 40 MG; Start 01/12/17 at 06:00 Atorvastatin Calcium (Lipitor) 40 mg QHS PO ; Start 01/12/17 at 21:00 Carisoprodol (Soma) 350 mg Q8 PRN PO MUSCLE SPASMS; Start 01/12/17 at 03:30 Cinacalcet (Sensipar) 30 mg DAILY PO ; Start 01/12/17 at 09:00 Insulin Detemir (Levemir) 30 unit QHS@20 SC ; Start 01/12/17 at 20:00 Montelukast Sodium (Singulair) 10 mg QPM PO ; Start 01/12/17 at 21:00 Sucralfate (Carafate) 1 gm QID PO ; Start 01/12/17 at 09:00 Salmeterol Xinafoate/ Fluticasone (Advair 250/50 Diskus) 1 inh BID INH ; Start 01/12/17 at 11:00 Diagnostic Test (Pha) (Accu-Chek) 1 ea 02 XX ; Start 01/13/17 at 02:00 Miscellaneous Information 1 ea NOTE XX ; Start 01/12/17 at 04:00 Glucose (Glutose) 15 gm Q15M PRN PO DECREASED GLUCOSE; Start 01/12/17 at 04:00 Glucose (Glutose) 22.5 gm Q15M PRN PO DECREASED GLUCOSE; Start 01/12/17 at 04: 00 Dextrose (D50w Syringe) 25 ml Q15M PRN IV DECREASED GLUCOSE; Start 01/12/17 at 04:00 Dextrose (D50w Syringe) 50 ml Q15M PRN IV DECREASED GLUCOSE; Start 01/12/17 at 04:00 Glucagon (Glucagen) 1 mg Q15M PRN IM DECREASED GLUCOSE; Start 01/12/17 at 04:00 Glucose (Glutose) 15 gm Q15M PRN BUCCAL DECREASED GLUCOSE; Start 01/12/17 at 04 :00 Miscellaneous Information This patient sexton... PRN PRN XX WOUND CARE; Start 01/12 at 04:30 Sodium Chloride 1,000 ml @ 100 mls/hr Q10H IV ; Start 01/12/17 at 06:30; Stop 01/16/17 at 06:29 Meropenem/Sodium Chloride 50 ml @ 100 mls/hr Q24H IVPB Last administered on t 13:45; Admin Dose 100 MLS/HR; Start 01/12/17 at 13:00 Caspofungin/ Sodium Chloride (Cancidas/NS) 250 ml @ 250 mls/hr Q24H IVPB ; Start 01/13/17 at 12:00 Sodium Hypochlorite (Dakin'S (1/4 Strength)) 1 applic BID IRR ; Start 01/12/17 at 13:00 JUSTIN FOX NP Jan 12, 2017 14:24
[2017-01-12 15:16] LABS: AADO2 Arterial 83.6 mmHg (7.0-24.0); Allen Test ACCEPTAB; Arterial Base Excess -6.1 mmol/L (-3.0-3); Arterial COHb 0.8 % (0.0-3.0); Arterial Fraction of Oxyhgb 94.3 % (93.0-99.0); Arterial HCO3 18.3 mmol/L (22.0-26.0); Arterial MetHb 0.2 % (0.0-1.5); MODE NASAL CANNULA
--- NOTE | 2017-01-12 17:20 | RADRPT ---
PROCEDURE: XR Chest. CLINICAL INDICATION: Check PICC line position. TECHNIQUE: Single frontal view. COMPARISON: 01/12/2017. 1222 hours. FINDINGS: There is a right arm PICC line with the tip in the lower superior vena cava. The nasogastric tube t ip is in the stomach. There is atelectasis at the lung bases with right worse than left. The heart is enlarged. There is calcification in the aorta consistent with atherosclerosis. There is a moderate right pleural effusion and small left pleural effusion. There is no pneumothorax. IMPRESSION: 1. Right arm PICC line tip in satisfactory position. 2. No other change from the prior study done earlier the same day. RPTAT: QQ .Bandar Adamson MD, MD Date Time Electronically viewed and signed by .Bandar Adamson MD, on 01/12/2017 17:20 .R/
[2017-01-12] MEDS ORDERED: SOD CHLORIDE 0.9% 100 ML ONE (18:06)
--- NOTE | 2017-01-12 20:38 | CONS ---
Date/Time of Note Date/Time of Note DATE: 01/12/17 TIME: 20:32 Assessment/Plan Assessment/Plan Chief Complaint/Hosp Course - ESRD Dialysis dependent ( [facility] - Septic Shock - Anemia - Cellulitis - CAD / CHF PLAN: - Hemodynamic support - At this point she needs IV Pressors with Constant monitoring her hemodynamics so OK with a PICC line - May benefit from Transfusion, will Transfuse with HD in AM - Antibiotics Thank you Problems: Consultation Date/Type/Reason Admit Date/Time Date of Consultation: Jan 12, 2017 Type of Consultation: NEPHROLOGY Reason for Consultation ESRD Dialysis dependent Subjective hx not possible: pt non-verbal Past Medical History Medical History: congestive heart failure, coronary artery disease, diabetes, hypertension, renal disease Past Surgical History Past Surgical Hx: other Family History Significant Family History: no pertinent family hx Social History Alcohol Use: none Smoking Status: Former smoker Drug Use: none Exam/Review of Systems Vital Signs Vitals Vital Signs Date Time Temp Pulse Resp B/P Pulse Ox O2 Delivery O2 Flow Rate FiO2 01/12/17 16:00 102 01/12/17 14:30 8 101/52 99 01/12/17 14:00 Nasal Cannula 2.0 01/12/17 12:00 98.5 Intake and Output 01/11/17 01/11/17 01/12/17 15:00 23:00 07:00 Intake Total 324.375 ml Balance 324.375 ml Exam Constitutional: non-verbal Head: normocephalic Eyes: nl conjunctiva Neck: jvd Respiratory: crackles/rales Cardiovascular: edema, regular rate and rhythm, systolic murmur Gastrointestinal: soft Results Result Diagram: 01/12/17 1232 01/12/17 0012 Results 24 hrs Laboratory Tests Test 01/12/17 00:12 01/12/17 04:37 01/12/17 12:00 01/12/17 12:32 White Blood Count 25.0 #H 21.1 H Red Blood Count 2.02 #L 2.67 #L Hemoglobin 5.4 #*L 7.3 #L Hematocrit 17.8 #L 23.2 #L Mean Corpuscular Volume 88.1 86.9 Mean Corpuscular Hemoglobin 26.7 L 27.3 L Mean Corpuscular Hemoglobin Concent 30.3 L 31.5 L Red Cell Distribution Width 19.9 H 18.8 H Platelet Count 495 #H 406 Mean Platelet Volume 9.0 9.3 Neutrophils % 75.5 Segmented Neutrophils % (Manual) 88 H Lymphocytes % 7.9 L Lymphocytes % (Manual) 8 L Monocytes % 10.0 Monocytes % (Manual) 3 Eosinophils % 0.1 Basophils % 0.1 Metamyelocytes % (manual) 1 H Nucleated Red Blood Cells % 2 H 2.8 H Neutrophils # (Manual) 15.9 H Absolute Lymphocytes (Manual) 2.0 Lymphocytes # 1.7 Monocytes # 2.1 H Absolute Monocytes (Manual) 0.7 Eosinophils # 0.0 Basophils # 0.0 Metamyelocytes # 0.2 H Nucleated Red Blood Cells # 0.6 H Platelet Estimate NORMAL Polychromasia 1+ Hypochromasia 1+ Poikilocytosis 2+ Anisocytosis 2+ Microcytosis 1+ Macrocytosis 1+ Target Cells 2+ Schistocytes 1+ Prothrombin Time 25.5 #H Prothrombin Time Ratio 2.0 INR International Normalized Ratio 2.29 Activated Partial Thromboplast Time 105.4 *H Sodium Level 134 L Potassium Level 3.8 Chloride Level 95 L Carbon Dioxide Level 23 Anion Gap 20 H Blood Urea Nitrogen 36 H Creatinine 3.00 H Glucose Level 137 Lactic Acid Level 1.1 Calcium Level 10.4 H Total Bilirubin 0.0 L Direct Bilirubin 0.00 Indirect Bilirubin 0.0 Aspartate Amino Transf (AST/SGOT) 16 Alanine Aminotransferase (ALT/SGPT) 30 Alkaline Phosphatase 128 H Ammonia < 9 L Troponin I 0.020 Total Protein 5.1 L Albumin 2.5 L Globulin 2.60 Albumin/Globulin Ratio 0.96 Salicylates Level < 1.0 L Acetaminophen Level < 10.0 L Ethyl Alcohol Level < 10.0 Blood Gas Specimen Source Blood arterial Blood arterial Arterial Blood Date Drawn 01/12/2017 5:16:35 AM 01/12/2017 12:10:04 PM Arterial Blood pH (Temp corrected) 7.336 L 7.385 Arterial Blood pCO2 (Temp correct) 37.0 31.2 L Arterial Blood pO2 (Temp corrected) 233.6 H 72.0 L Arterial Blood HCO3 19.3 L 18.3 L Arterial Blood Base Excess -6.0 L -6.1 L Arterial Blood Oxygen Saturation 99.8 H 95.3 Charly Test ACCEPTAB ACCEPTAB Arterial Blood Gas Puncture Site Right Radial Right Radial Arterial Blood Carboxyhemoglobin 1.0 0.8 Arterial Blood Methemoglobin 0.3 0.2 Blood Gas A-a O2 Differential 442.4 H 83.6 H Oxyhemoglobin Percent 98.5 94.3 Total Hemoglobin 6.0 L 8.0 L Blood Gas Temperature 37.0 37.0 Blood Gas Respiration Rate 20.0 Blood Gas Modality MASK - NRB NASAL CANNULA FiO2 100.0 27.0 Blood Gas Notified Whom Daniel MOORE Blood Gas Notified Time 01/12/2017 5:27:11 AM 01/12/2017 12:27:34 PM Hemoglobin A1c 5.6 Test 01/12/17 13:28 01/12/17 18:15 01/12/17 19:25 Bedside Glucose 157 185 Lactic Acid Level 0.8 Medications Medications Current Medications Ondansetron HCl (Zofran Inj) 4 mg Q6H PRN IV NAUSEA AND/OR VOMITING; Start at 03:30 Metoclopramide HCl (Reglan) 10 mg Q6H PRN IV NAUSEA AND/OR VOMITING; Start at 03:30 Acetaminophen (Tylenol Liquid) 650 mg Q6H PRN PO PAIN LEVEL 1-3 OR FEVER; Start 01/12/17 at 03:30 Morphine Sulfate (morphine) 2 mg Q4H PRN IV PAIN LEVEL 7-10; Start 01/12/17 at 03:30 Magnesium Hydroxide (Milk Of Mag) 30 ml DAILY PRN PO CONSTIPATION; Start at 03:30 Pantoprazole (Protonix Iv) 40 mg Q12H IV Last administered on 01/12/17t 18:20; Admin Dose 40 MG; Start 01/12/17 at 06:00 Atorvastatin Calcium (Lipitor) 40 mg QHS PO ; Start 01/12/17 at 21:00 Carisoprodol (Soma) 350 mg Q8 PRN PO MUSCLE SPASMS; Start 01/12/17 at 03:30 Cinacalcet (Sensipar) 30 mg DAILY PO ; Start 01/12/17 at 09:00 Insulin Detemir (Levemir) 30 unit QHS@20 SC ; Start 01/12/17 at 20:00 Montelukast Sodium (Singulair) 10 mg QPM PO ; Start 01/12/17 at 21:00 Sucralfate (Carafate) 1 gm QID PO ; Start 01/12/17 at 09:00 Salmeterol Xinafoate/ Fluticasone (Advair 250/50 Diskus) 1 inh BID INH ; Start 01/12/17 at 11:00 Diagnostic Test (Pha) (Accu-Chek) 1 ea 02 XX ; Start 01/13/17 at 02:00 Miscellaneous Information 1 ea NOTE XX ; Start 01/12/17 at 04:00 Glucose (Glutose) 15 gm Q15M PRN PO DECREASED GLUCOSE; Start 01/12/17 at 04:00 Glucose (Glutose) 22.5 gm Q15M PRN PO DECREASED GLUCOSE; Start 01/12/17 at 04: 00 Dextrose (D50w Syringe) 25 ml Q15M PRN IV DECREASED GLUCOSE; Start 01/12/17 at 04:00 Dextrose (D50w Syringe) 50 ml Q15M PRN IV DECREASED GLUCOSE; Start 01/12/17 at 04:00 Glucagon (Glucagen) 1 mg Q15M PRN IM DECREASED GLUCOSE; Start 01/12/17 at 04:00 Glucose (Glutose) 15 gm Q15M PRN BUCCAL DECREASED GLUCOSE; Start 01/12/17 at 04 :00 Miscellaneous Information This patient sexton... PRN PRN XX WOUND CARE; Start 01/12 at 04:30 Sodium Chloride 1,000 ml @ 100 mls/hr Q10H IV Last administered on 01/12/17 16:30; Admin Dose 100 MLS/HR; Start 01/12/17 at 06:30; Stop 01/16/17 at 06:29 Meropenem/Sodium Chloride 50 ml @ 100 mls/hr Q24H IVPB Last administered on 13:45; Admin Dose 100 MLS/HR; Start 01/12/17 at 13:00 Caspofungin/ Sodium Chloride (Cancidas/NS) 250 ml @ 250 mls/hr Q24H IVPB ; Start 01/13/17 at 12:00 Sodium Hypochlorite 1 applic 1 applic BID IRR Last administered on 01/12/17 13 :27; Admin Dose 1 APPLIC; Start 01/12/17 at 13:00 Norepinephrine/ Dextrose (Levophed/D5W) 500 ml @ 0 mls/hr TITRATE IV ; Start at 17:30 IV Flush (NS 10 ml) 10 ml PRN PRN IV IV PROTOCOL; Start 01/12/17 at 18:00 BECKY GAMBLE MD Jan 12, 2017 20:38
--- NOTE | 2017-01-12 20:44 | RADRPT ---
PROCEDURE: Ultrasound guidance for placement of needle in right upper extremity vein. CLINICAL INDICATION: PICC placement. TECHNIQUE: Limited sonography of the right upper extremity was performed. Ultrasound images were recorded and s tored in the patient's medical record. COMPARISON: Chest radiograph of the same day. FINDINGS: The ultrasound images demonstrate a patent right upper extremity vein. The PICC line was inserted by the PICC line nurse. IMPRESSION: 1. Ultrasound guidance for a needle placement in a right upper extremity vein. 2. The visualized right upper extremity vein is patent. RPTAT: HFN .Omid Fletcher MD, MD Date Time Electronically viewed and signed by .Omid Fletcher MD, on 01/12/2017 20:43 .N/
--- NOTE | 2017-01-12 21:08 | CONS ---
DATE OF ADMISSION: 01/12/2017 DATE OF CONSULTATION: 01/12/2017 REQUESTING PHYSICIAN: Dr. Diaz. Thank you Dr. Diaz for this consultation. HISTORY OF PRESENT ILLNESS: This is a morbidly obese, 61-year- old, White woman, well known to our service from multiple previous admissions to [facility]. The patient past medical history significant for end-stage renal disease, hemodialysis dependent, left upper extremity AV fistula, multiple wounds, status post left thigh large wound requiring debridement multiple times with wound vacuum application with wound cultures on previous admission grew coag-negative staph species, enterococcus species, carinii bacterium species, and Giselle parapsilosis. The patient also has a history of diabetes, chronic atrial fibrillation, anemia, COPD, history of falls, chronic pain syndrome, opioid dependency, history of pneumonia in the past. Acutely, the patient was readmitted with septic shock, possibly hypovolemic shock, acute anemia with a hemoglobin of 5.4, currently in ICU on pressors. She is also very obtunded and getting blood transfusion. LABORATORY AND DIAGNOSTIC DATA: WBC 25, H and H 5.4, and 17.8, and platelets 495. Sodium 134, potassium 3.8. Negative troponin of 0.020, total bilirubin 0. Normal LFT. Alk phos 128, albumin 2.5. Chest x-ray revealed cardiomegaly, chronic lung changes, and right lower lung zone consolidation. CT of the brain revealed mild diffuse volume loss, mild mucosal thickening, diminutive left sphenoid sinus, microangiographic ischemic changes. ALLERGIES: PENICILLIN AND CIPRO, REACTION UNKNOWN. PHYSICAL EXAMINATION: VITAL SIGNS: On admission, temperature 97.7, pulse 109, respirations 16, blood pressure 82/46, and saturation 90 percent on non-rebreather. GENERAL: This is a chronically ill-appearing, elderly white woman, who is lethargic, in no distress. HEENT: Head atraumatic, normocephalic. Sclerae anicteric. Buccal mucosa dry. NECK: Obese. CHEST: Rise symmetrical. Breath sounds diminished at the bases. HEART: S1, S2. ABDOMEN: Obese, soft. Bowel tones hypoactive. EXTREMITIES: Left lateral thigh unstageable necrotic decubitus with surrounding erythema. SKIN: No jaundice. No cyanosis. ASSESSMENT: 1. Sepsis with shock, multifactorial. 2. Acute on chronic anemia. 3. Infected left thigh wound, status post multiple debridement in the past. 4. Morbid obesity. 5. Peripheral vascular disease. 6. Acute respiratory failure, combination of fluid overload, possible recurrent pneumonia. PLAN: 1. The patient remains in ICU. 2. She was started on an aztreonam and vancomycin. We are going to change aztreonam to meropenem. 3. We will obtain blood cultures and wound cultures. 4. Continue monitoring H and H and transfuse as needed. 5. Send stool for occult blood. 6. Consider vascular and surgical evaluation for possible debridement. 7. Add Diflucan to the regimen given presence of of fungus in her wound on previous cx. 8. Further recommendations per patient's clinical course. Discussed with Dr. Benson Borrero. Dictated By: Rita Correa NP /herrera/carol /Document#: [id number] SARAH
[2017-01-12] MEDS: ATORVASTATIN 40 MG TAB PO SCH (21:58)
[2017-01-12] MEDS: MONTELUKAST 10 MG TAB PO SCH (21:58)
[2017-01-12] MEDS: DEXTROSE 5%-0.45% NACL 1,000 ML IV SCH (21:59)
[2017-01-12] MEDS: INSULIN DETEMIR [LEVEMIR] 3ML CART SC SCH (22:04)
[2017-01-12] MEDS ORDERED: AMIODARONE 150MG/D5W BOLUS 100 ML IV ONE (22:30)
[2017-01-12] MEDS: AMIODARONE 900 MG in DEXTROSE 5% 482 ML IV SCH (23:32)
[2017-01-13] VITALS (106 sets, daily range): BP systolic 87–131; BP diastolic 49–94; PULSE 72–123; RESP 7–25
[2017-01-13 00:58] LABS: HEMATOCRIT 30.1 % (37.0-47.0); HEMOGLOBIN 9.9 g/dl (12.0-16.0)
[2017-01-13] MEDS ORDERED: ACCU-CHEK XX SCH (02:00)
[2017-01-13] MEDS: PANTOPRAZOLE IV 80 MG in SOD CHLORIDE 0.9% 100 ML IV SCH ×3 (03:40→22:30)
[2017-01-13 05:57] LABS: ABNORMAL IP MESSAGE 1; BASOPHIL # 0.1 10^3/ul (0.0-0.1); BASOPHILS % 0.3 % (0.0-2.0); EOSINOPHILS # 0.1 10^3/ul (0.0-0.5); EOSINOPHILS % 0.4 % (0.0-7.0); HEMATOCRIT 29.2 % (37.0-47.0); HEMOGLOBIN 9.6 g/dl (12.0-16.0); LYMPHOCYTES # 1.7 10^3/ul (0.8-2.9); LYMPHOCYTES % 6.8 % (15.0-51.0); MEAN CORPUSCULAR HEMOGLOBIN 28.2 pg (29.0-33.0); MEAN CORPUSCULAR HGB CONC 32.9 g/dl (32.0-37.0); MEAN CORPUSCULAR VOLUME 85.9 fl (82.0-101.0); MEAN PLATELET VOLUME 8.9 fl (7.4-10.4); MONOCYTE # 2.1 10^3/ul (0.3-0.9); MONOCYTES % 8.3 % (0.0-11.0); NEUTROPHILS % 75.2 % (39.0-77.0); NUCLEATED RED BLOOD CELLS # 0.9 10^3/ul (0.0-0.0); NUCLEATED RED BLOOD CELLS% 3.4 /100WBC (0.0-0.0); PLATELET COUNT 435 10^3/UL (140-415); RED CELL DISTRIBUTION WIDTH 17.7 % (11.5-14.5); WHITE BLOOD COUNT 25.2 10^3/ul (4.8-10.8)
[2017-01-13 06:02] LABS: POSITIVE DIFF @See below
[2017-01-13 06:15] LABS: CALCIUM 10.1 mg/dl (8.4-10.2); CREATININE 3.08 mg/dl (0.44-1.00); POTASSIUM 3.6 mmol/L (3.5-5.1)
[2017-01-13 06:19] LABS: AADO2 Arterial 88.8 mmHg (7.0-24.0); Allen Test ACCEPTAB; Arterial Base Excess -4.8 mmol/L (-3.0-3); Arterial COHb 1.1 % (0.0-3.0); Arterial Fraction of Oxyhgb 93.2 % (93.0-99.0); Arterial HCO3 19.4 mmol/L (22.0-26.0); Arterial MetHb 0.2 % (0.0-1.5); Arterial Total Hemglobin 10.9 g/dl (12.0-18.0); MODE NASAL CANNULA
--- NOTE | 2017-01-13 07:04 | RADRPT ---
PROCEDURE: XR Chest. CLINICAL INDICATION: Lung consolidation TECHNIQUE: AP Portable chest. COMPARISON: 01/12/2017 FINDINGS: Right PICC line and nasogastric tube are unchanged. The cardiomediastinal silhouette is enlarged. The aortic arch is calcified. The main pulmonary sandie ry is dilated. Pulmonary edema, bilateral pleural effusions and basilar opacities, greater on the ri ght are similar in appearance. The hemidiaphragms are obscured. No pneumothorax is seen. The osseo us structures are intact. There are multiple clips in the left arm. IMPRESSION: Right PICC line and NG tube in place. CHF. Bilateral pleural effusions and atelectasis, greater on the right. No significant change. Physician Abraham Date Time Electronically viewed and signed by Marium Beebe Physician on 01/13/2017 07:04 /
[2017-01-13] MEDS: DEXTROSE 5%-0.45% NACL 1,000 ML IV SCH ×2 (07:30→17:42)
[2017-01-13] MEDS: SUCRALFATE 1 GM TAB PO SCH ×4 (08:40→20:51)
[2017-01-13] MEDS: CINACALCET 30 MG TAB PO SCH (08:40)
[2017-01-13] MEDS: SODIUM HYPOCHLORITE 0.125% 473 ML BTL IRR SCH ×2 (08:58→20:51)
[2017-01-13] MEDS ORDERED: INSULIN ASPART [NOVOLOG] 3 ML PEN SC SCH (09:00)
[2017-01-13] MEDS: Insulin NOVOLOG SS MODERATE Algorithm(NPO/TPN/ENTERAL FEEDS) SC SCH ×4 (09:00→20:58)
[2017-01-13] MEDS: SALMETEROL/FLUTICASONE 250/50 INHA INH SCH ×2 (09:00→21:00)
--- NOTE | 2017-01-13 10:06 | PN ---
Date/Time of Note Date/Time of Note DATE: 01/13/17 TIME: 09:56 Assessment/Plan VTE Prophylaxis VTE Prophylaxis Intervention: contraindicated Lines/Catheters IV Catheter Type (from [facility] PICC Line Central line still needed: Yes Urinary Cath still in place: No Assessment/Plan Chief Complaint/Hosp Course Assessment/Plan: 61-year-old female with a history of hypertension, insulin- dependent diabetes, ESRD on HD, lower extremity thigh gangrenous decubitus ulcer status post debridement, chronic atrial fibrillation, erosive gastritis and esophagitis who was sent from the rehab for weakness and hypotension, with septic shock arrhythmia and signs of upper GI bleeding. 1. Shock, secondary to blood loss and sepsis from pneumonia as well as likely wound infection-still on pressor support. Continue broad-spectrum antibiotics per ID recommendations and pressor support -Follow-up culture results -ID consult commendations 2. ESRD on HD -Nephrology consult for dialysis-likely for dialysis later today 3. Lower extremity thigh decubitus ulcer -appreciate general surgery consult. Patient had debridement with placement of a wound VAC during previous hospitalizations. -Per general surgery recommendations, wound care, for possible debridement when more medically stable. -Follow-up wound care consult 4. Insulin-dependent diabetes A1c is actually 5.6 -Continue insulin with adjustment as needed 5. History of chronic atrial fibrillation-again, patient had tachyarrhythmia last night, presently on amiodarone drip now. Will consult cardiology team, continue amiodarone drip for now, monitor heart rate - 6. Electrolyte abnormalities -Correct as needed 7. Upper GI bleeding: Patient has prior history of this in the past, and now dark red blood coming from NG tube. -Follow-up H&H every 6 hours, will get GI consult, follow-up occult test as well. Critical care time spent on patient care today equals 50 minutes. Problems: Subjective 24 Hr Interval Summary Free Text/Dictation Patient received 4 units of PRBC transfusion yesterday. Patient had some arrhythmia last night presently on amiodarone drip. Received PICC line yesterday. Still on pressor support. Having some signs of upper GI bleeding through the NG tube this morning as well. Exam/Review of Systems Vital Signs Vitals Vital Signs Date Time Temp Pulse Resp B/P Pulse Ox O2 Delivery O2 Flow Rate FiO2 01/13/17 06:45 98 13 96/52 96 Nasal Cannula 2.0 01/13/17 04:00 98.0 Intake and Output 01/12/17 01/12/17 01/13/17 15:00 23:00 07:00 Intake Total 1450.52 ml 995 ml 1063.70 ml Output Total 500 ml Balance 950.52 ml 995 ml 1063.70 ml Exam Head: atraumatic, normocephalic, NG tube in place Eyes: nl lids, nl sclera ENMT: No nl lips & teeth (missing teeth) Neck: non-tender, supple Respiratory: normal air movement Cardiovascular: regular rate and rhythm Gastrointestinal: non-tender, other (obese), soft Extremities: No edema, No normal pulses Neurological: nl speech, nl strength Skin: other (wounds: Right thigh/trochanter area with areas of necrosis, no drainage; left thigh: wound bed with slough, no drainage) Results Result Diagram: 01/13/17 0500 01/13/17 0500 Results 24 hrs Laboratory Tests Test 01/12/17 12:00 01/12/17 12:32 01/12/17 13:28 01/12/17 18:15 Blood Gas Specimen Source Blood arterial Arterial Blood Date Drawn 01/12/2017 12:10:04 PM Arterial Blood pH (Temp corrected) 7.385 Arterial Blood pCO2 (Temp correct) 31.2 L Arterial Blood pO2 (Temp corrected) 72.0 L Arterial Blood HCO3 18.3 L Arterial Blood Base Excess -6.1 L Arterial Blood Oxygen Saturation 95.3 Charly Test ACCEPTAB Arterial Blood Gas Puncture Site Right Radial Arterial Blood Carboxyhemoglobin 0.8 Arterial Blood Methemoglobin 0.2 Blood Gas A-a O2 Differential 83.6 H Oxyhemoglobin Percent 94.3 Total Hemoglobin 8.0 L Blood Gas Temperature 37.0 Blood Gas Modality NASAL CANNULA FiO2 27.0 Blood Gas Notified Whom JLD Blood Gas Notified Time 01/12/2017 12:27:34 PM White Blood Count 21.1 H Red Blood Count 2.67 #L Hemoglobin 7.3 #L Hematocrit 23.2 #L Mean Corpuscular Volume 86.9 Mean Corpuscular Hemoglobin 27.3 L Mean Corpuscular Hemoglobin Concent 31.5 L Red Cell Distribution Width 18.8 H Platelet Count 406 Mean Platelet Volume 9.3 Neutrophils % 75.5 Lymphocytes % 7.9 L Monocytes % 10.0 Eosinophils % 0.1 Basophils % 0.1 Nucleated Red Blood Cells % 2.8 H Neutrophils # (Manual) 15.9 H Lymphocytes # 1.7 Monocytes # 2.1 H Eosinophils # 0.0 Basophils # 0.0 Nucleated Red Blood Cells # 0.6 H Hemoglobin A1c 5.6 Bedside Glucose 157 185 Test 01/12/17 19:25 01/12/17 21:21 01/12/17 21:56 01/13/17 00:46 Lactic Acid Level 0.8 Bedside Glucose 167 177 Hemoglobin 9.9 #L Hematocrit 30.1 #L Test 01/13/17 05:00 01/13/17 05:10 01/13/17 06:02 01/13/17 08:14 White Blood Count 25.2 H Red Blood Count 3.40 #L Hemoglobin 9.6 L Hematocrit 29.2 L Mean Corpuscular Volume 85.9 Mean Corpuscular Hemoglobin 28.2 L Mean Corpuscular Hemoglobin Concent 32.9 Red Cell Distribution Width 17.7 H Platelet Count 435 H Mean Platelet Volume 8.9 Neutrophils % 75.2 Lymphocytes % 6.8 L Monocytes % 8.3 Eosinophils % 0.4 Basophils % 0.3 Nucleated Red Blood Cells % 3.4 H Neutrophils # (Manual) 18.9 H Lymphocytes # 1.7 Monocytes # 2.1 H Eosinophils # 0.1 Basophils # 0.1 Nucleated Red Blood Cells # 0.9 H Sodium Level 133 L Potassium Level 3.6 Chloride Level 97 Carbon Dioxide Level 21 Anion Gap 19 H Blood Urea Nitrogen 44 H Creatinine 3.08 H Glucose Level 262 #H Calcium Level 10.1 Lab Scanned Report BLOOD TRANSFUSION Blood Gas Specimen Source Blood arterial Arterial Blood Date Drawn 01/13/2017 6:00:27 AM Arterial Blood pH (Temp corrected) 7.392 Arterial Blood pCO2 (Temp correct) 32.6 L Arterial Blood pO2 (Temp corrected) 65.2 L Arterial Blood HCO3 19.4 L Arterial Blood Base Excess -4.8 L Arterial Blood Oxygen Saturation 94.4 L Charly Test ACCEPTAB Arterial Blood Gas Puncture Site Right Radial Arterial Blood Carboxyhemoglobin 1.1 Arterial Blood Methemoglobin 0.2 Blood Gas A-a O2 Differential 88.8 H Oxyhemoglobin Percent 93.2 Total Hemoglobin 10.9 L Blood Gas Temperature 37.0 Blood Gas Modality NASAL CANNULA FiO2 27.0 Blood Gas Notified Whom UP Blood Gas Notified Time 01/13/2017 6:19:07 AM Bedside Glucose 214 Medications Medications Current Medications Ondansetron HCl (Zofran Inj) 4 mg Q6H PRN IV NAUSEA AND/OR VOMITING; Start at 03:30 Metoclopramide HCl (Reglan) 10 mg Q6H PRN IV NAUSEA AND/OR VOMITING; Start at 03:30 Acetaminophen (Tylenol Liquid) 650 mg Q6H PRN PO PAIN LEVEL 1-3 OR FEVER; Start 01/12/17 at 03:30 Morphine Sulfate (morphine) 2 mg Q4H PRN IV PAIN LEVEL 7-10; Start 01/12/17 at 03:30 Magnesium Hydroxide (Milk Of Mag) 30 ml DAILY PRN PO CONSTIPATION; Start at 03:30 Atorvastatin Calcium (Lipitor) 40 mg QHS PO Last administered on 01/12/17 21: 58; Admin Dose 40 MG; Start 01/12/17 at 21:00 Carisoprodol (Soma) 350 mg Q8 PRN PO MUSCLE SPASMS; Start 01/12/17 at 03:30 Cinacalcet (Sensipar) 30 mg DAILY PO ; Start 01/12/17 at 09:00 Insulin Detemir (Levemir) 30 unit QHS@20 SC Last administered on 01/12/17 22: 04; Admin Dose 15 UNIT; Start 01/12/17 at 20:00 Montelukast Sodium (Singulair) 10 mg QPM PO Last administered on 01/12/17 21: 58; Admin Dose 10 MG; Start 01/12/17 at 21:00 Sucralfate (Carafate) 1 gm QID PO Last administered on 01/12/17 21:58; Admin Dose 1 GM; Start 01/12/17 at 09:00 Salmeterol Xinafoate/ Fluticasone (Advair 250/50 Diskus) 1 inh BID INH ; Start 01/12/17 at 11:00 Miscellaneous Information 1 ea NOTE XX ; Start 01/12/17 at 04:00 Glucose (Glutose) 15 gm Q15M PRN PO DECREASED GLUCOSE; Start 01/12/17 at 04:00 Glucose (Glutose) 22.5 gm Q15M PRN PO DECREASED GLUCOSE; Start 01/12/17 at 04: 00 Dextrose (D50w Syringe) 25 ml Q15M PRN IV DECREASED GLUCOSE; Start 01/12/17 at 04:00 Dextrose (D50w Syringe) 50 ml Q15M PRN IV DECREASED GLUCOSE; Start 01/12/17 at 04:00 Glucagon (Glucagen) 1 mg Q15M PRN IM DECREASED GLUCOSE; Start 01/12/17 at 04:00 Glucose (Glutose) 15 gm Q15M PRN BUCCAL DECREASED GLUCOSE; Start 01/12/17 at 04 :00 Miscellaneous Information This patient sexton... PRN PRN XX WOUND CARE; Start 01/12 at 04:30 Meropenem/Sodium Chloride 50 ml @ 100 mls/hr Q24H IVPB Last administered on 13:45; Admin Dose 100 MLS/HR; Start 01/12/17 at 13:00 Caspofungin/ Sodium Chloride (Cancidas/NS) 250 ml @ 250 mls/hr Q24H IVPB ; Start 01/13/17 at 12:00 Sodium Hypochlorite 1 applic 1 applic BID IRR Last administered on 01/13/17 08 :58; Admin Dose 1 APPLIC; Start 01/12/17 at 13:00 Norepinephrine/ Dextrose (Levophed/D5W) 500 ml @ 0 mls/hr TITRATE IV Last administered on 01/13/17 01:49; Admin Dose 22.5 MLS/HR; Start 01/12/17 at 17:30 IV Flush 10 ml 10 ml PRN PRN IV IV PROTOCOL; Start 01/12/17 at 18:00 Dextrose/Sodium Chloride 1,000 ml @ 100 mls/hr Q10H IV Last administered on 07:30; Admin Dose 100 MLS/HR; Start 01/12/17 at 21:30 Amiodarone HCl 900 mg/Dextrose 500 ml @ 0 mls/hr Q0M IV Last administered on 23:32; Admin Dose 33.4 MLS/HR; Start 01/12/17 at 22:45 Pantoprazole/ Sodium Chloride (Protonix Iv/NS) 100 ml @ 10 mls/hr Q10H IV Last administered on 01/13/17 03:40; Admin Dose 10 MLS/HR; Start 01/13/17 at 02 :00 Insulin Aspart (Novolog Insulin Pen) (Adult SC Insulin - Moder... Q4 SC Last administered on 01/13/17t 09:00; Admin Dose 4 UNIT; Start 01/13/17 at 09:00 ERICK MATOS Jan 13, 2017 10:05
[2017-01-13] MEDS ORDERED: DIGOXIN 500 MCG INJ IV ONE (11:00)
--- NOTE | 2017-01-13 12:14 | CONS ---
DATE OF ADMISSION: 01/12/2017 DATE OF CONSULTATION: 01/13/2017 REASON FOR CONSULTATION: Atrial fibrillation, as well as hypertension, in shock state. REFERRING PHYSICIAN: Dr. Jacome from the hospitalist service. HISTORY OF PRESENT ILLNESS: Ms. Anthony is a 61-year-old female, with history of hypertension, diabetes mellitus, end-stage renal disease on hemodialysis, lower extremity ulceration, status post debridement, atrial fibrillation, gastritis esophagitis, who was initially sent from her facility with weakness, hypotension. Upon arrival in the ER, the patient was noted to have a blood pressure 61/38, pulse of 107, atrial fibrillation and hemoglobin of 5.4. Respiratory rate 16, satting 98 percent on 15 percent by nonrebreather. Additionally, the patient's labs notable for a white blood cell count of 25, hemoglobin is as above 5.4, platelet count of 495. Sodium 134, potassium 3.8, creatinine 3.0, BUN of 36. AST 16, ALT 30. INR of 2.29. Tox screen negative. ABG revealing a pH of 7.336, a PaO2 of 233, a pCO2 of 37. The patient underwent a chest x-ray revealing cardiomegaly, chronic lung changes, right lower lung zone consolidation. A head CT revealing mild diffuse volume loss, microvascular ischemic changes, mild mucosal thickening of the sphenoid sinus. Patient's electrocardiogram revealed atrial fibrillation, rate of 120, normal axis, normal intervals, anteroseptal Q's, nonspecific ST and T-wave abnormalities diffusely and inferolateral ST depressions. The patient was subsequently admitted to the ICU where she has required initiation of pressure support and is on amiodarone at this time. The patient has undergone transfusion with most recent hemoglobin of 9.6. Continues to have an elevated white blood cell count of 25.2. Blood cultures negative to date at this time. PAST MEDICAL HISTORY: As above in HPI. MEDICATION: Currently in the hospital: 1. Caspofungin. 2. . 3. Protonix. 4. Amiodarone IV. 5. Lipitor 40 at bedtime. 6. Singulair. 7. Levemir. 8. Levophed. 9. Meropenem. 10. Advair. 11. Sensipar. 12. Carafate. 13. Morphine p.r.n. 14. Tylenol p.r.n. 15. Milk of Magnesium p.r.n. ALLERGIES: PENICILLIN. CIPROFLOXACIN. SOCIAL HISTORY: No tobacco, EtOH or illicit drug use. FAMILY HISTORY: No history for sudden cardiac or early CAD. REVIEW OF SYSTEMS: As above in HPI. CONSTITUTIONAL: No fevers, chills. RESPIRATORY: No current respiratory compromise. GASTROINTESTINAL: Possible GI bleeding, . GENITOURINARY: No hematuria. MUSCULOSKELETAL: Degenerative joint disease, thigh wound. PSYCHIATRIC: No documented psych history. NEUROLOGIC: Altered mental state. PHYSICAL EXAMINATION: VITAL SIGNS: Temperature of 98, blood pressure most recently of 96/52, pulse 98, respiratory rate 13, satting 96 percent on 2 L. GENERAL: The patient is alert, awake, in no acute distress. NECK: JVP approximately 8-9 cm of water. CHEST: Upper chest rhonchi sounds, mildly decreased breath sounds at the bases bilaterally. HEART: Irregularly irregular, 1/6 systolic murmur. Nondisplaced PMI. ABDOMEN: Positive bowel sounds. Soft. EXTREMITIES: 2+ edema. 1+ pulses, bilateral posterior tibial. LABORATORY: Most recent today: White count of 24.2, hemoglobin of 9.6, platelet count of 435. Sodium 133, potassium 3.6, creatinine 3.0, BUN 44. ABG revealing a pH of 7.392, a PaO2 of 65, pCO2 32. IMAGING STUDIES: Chest x-ray from today revealing CHF with bilateral pleural effusions. IMPRESSION: 1. Atrial fibrillation. Currently, under improved rate control on amiodarone. 2. Hypotension, on pressor support. 3. Abnormal electrocardiogram. Assess for acute coronary syndrome with inferolateral ST depressions, anteroseptal Q's. 4. Anemia. 5. Possible gastrointestinal bleed. 6. Lower extremity ulceration/wound. 7. Altered mental state. 8. End-stage renal disease. 9. Congestive heart failure with chest x-ray. Question systolic versus diastolic. 10. Coagulopathy. RECOMMENDATIONS: 1. At this time, would maintain patient on telemetry monitoring to follow rhythm and rate control closely. 2. Continue patient's amiodarone at this time to completion and we will give patient a partial digoxin load to ensure good heart rate control in the setting of end-stage renal disease. 3. Wean the patient's pressors as tolerated. 4. Continue follow patient's hemoglobin closely with probable need for a GI evaluation and endoscopy with possible need for further transfusions. 5. Would follow patient's coagulants closely with possible need for reversal, but would hold all anticoagulation at this time given possible diagnosis of anemia of GI bleed. 6. Continue patient's antibiotics and follow up all culture data. 7. Check 2D echo to further assess patient's ejection fraction, wall motion and any major abnormalities. 8. Continue to check serial EKGs to assess for significant ongoing changes and continue the patient's current rhythm. Thank you for allowing to take part in the care of this patient. I will continue to follow him very closely with you. Further recommendation will be made as the patient progresses through her inpatient hospital course. Dictated By: Otilio David MD /herrera/jacqui /Document#: [id number] ; Dr. Jacome
[2017-01-13] MEDS: CASPOFUNGIN 50 MG in SOD CHLORIDE 0.9% 250 ML IVPB SCH (12:19)
[2017-01-13 13:36] LABS: HEMOGLOBIN 10.7 g/dl (12.0-16.0)
--- NOTE | 2017-01-13 14:13 | CONS ---
Date/Time of Note Date/Time of Note DATE: 01/13/17 TIME: 14:11 Assessment/Plan Assessment/Plan Chief Complaint/Hosp Course - ESRD Dialysis dependent ( [facility] - Septic Shock - Anemia - Cellulitis - CAD / CHF PLAN: - Hemodynamic support - On bedside dialysis - Aiming for 2-3 Kg off as BP tolerates - Not much response as of yet - Had Blood transfusion - Antibiotics - Will evaluate daily for need of HD/UF Problems: Consultation Date/Type/Reason Admit Date/Time Jan 12, 2017 at 04:33 Initial Consult Date 01/12/17 Type of Consultation: NEPHROLOGY Reason for Consultation ESRD on Hemodialysis Referring Provider: ERICK MATOS 24 HR Interval Summary Subjective hx not possible: pt non-verbal Constitutional: disoriented Exam/Review of Systems Vital Signs Vitals Vital Signs Date Time Temp Pulse Resp B/P Pulse Ox O2 Delivery O2 Flow Rate FiO2 01/13/17 13:23 3.0 01/13/17 13:15 96 11 97 01/13/17 13:00 116/65 01/13/17 11:00 97.5 01/13/17 08:00 Nasal Cannula Intake and Output 01/12/17 01/12/17 01/13/17 15:00 23:00 07:00 Intake Total 1450.52 ml 995 ml 1063.70 ml Output Total 500 ml Balance 950.52 ml 995 ml 1063.70 ml Exam Constitutional: non-verbal Psych: confusion Head: normocephalic Neck: supple Respiratory: crackles/rales Cardiovascular: regular rate and rhythm, systolic murmur Gastrointestinal: soft Results Result Diagram: 01/13/17 1302 01/13/17 0500 Results 24 hrs Laboratory Tests Test 01/12/17 18:15 01/12/17 19:25 01/12/17 21:21 01/12/17 21:56 Bedside Glucose 185 167 177 Lactic Acid Level 0.8 Test 01/13/17 00:46 01/13/17 05:00 01/13/17 05:10 01/13/17 06:02 Hemoglobin 9.9 #L 9.6 L Hematocrit 30.1 #L 29.2 L White Blood Count 25.2 H Red Blood Count 3.40 #L Mean Corpuscular Volume 85.9 Mean Corpuscular Hemoglobin 28.2 L Mean Corpuscular Hemoglobin Concent 32.9 Red Cell Distribution Width 17.7 H Platelet Count 435 H Mean Platelet Volume 8.9 Neutrophils % 75.2 Lymphocytes % 6.8 L Monocytes % 8.3 Eosinophils % 0.4 Basophils % 0.3 Nucleated Red Blood Cells % 3.4 H Neutrophils # (Manual) 18.9 H Lymphocytes # 1.7 Monocytes # 2.1 H Eosinophils # 0.1 Basophils # 0.1 Nucleated Red Blood Cells # 0.9 H Sodium Level 133 L Potassium Level 3.6 Chloride Level 97 Carbon Dioxide Level 21 Anion Gap 19 H Blood Urea Nitrogen 44 H Creatinine 3.08 H Glucose Level 262 #H Calcium Level 10.1 Lab Scanned Report BLOOD TRANSFUSION Blood Gas Specimen Source Blood arterial Arterial Blood Date Drawn 01/13/2017 6:00:27 AM Arterial Blood pH (Temp corrected) 7.392 Arterial Blood pCO2 (Temp correct) 32.6 L Arterial Blood pO2 (Temp corrected) 65.2 L Arterial Blood HCO3 19.4 L Arterial Blood Base Excess -4.8 L Arterial Blood Oxygen Saturation 94.4 L Charly Test ACCEPTAB Arterial Blood Gas Puncture Site Right Radial Arterial Blood Carboxyhemoglobin 1.1 Arterial Blood Methemoglobin 0.2 Blood Gas A-a O2 Differential 88.8 H Oxyhemoglobin Percent 93.2 Total Hemoglobin 10.9 L Blood Gas Temperature 37.0 Blood Gas Modality NASAL CANNULA FiO2 27.0 Blood Gas Notified Whom UP Blood Gas Notified Time 01/13/2017 6:19:07 AM Test 01/13/17 08:14 01/13/17 11:51 01/13/17 13:02 Bedside Glucose 214 231 H Hemoglobin 10.7 L Hematocrit 32.0 L Medications Medications Current Medications Ondansetron HCl (Zofran Inj) 4 mg Q6H PRN IV NAUSEA AND/OR VOMITING; Start at 03:30 Metoclopramide HCl (Reglan) 10 mg Q6H PRN IV NAUSEA AND/OR VOMITING; Start at 03:30 Acetaminophen (Tylenol Liquid) 650 mg Q6H PRN PO PAIN LEVEL 1-3 OR FEVER; Start 01/12/17 at 03:30 Morphine Sulfate (morphine) 2 mg Q4H PRN IV PAIN LEVEL 7-10; Start 01/12/17 at 03:30 Magnesium Hydroxide (Milk Of Mag) 30 ml DAILY PRN PO CONSTIPATION; Start at 03:30 Atorvastatin Calcium (Lipitor) 40 mg QHS PO Last administered on 01/12/17 21: 58; Admin Dose 40 MG; Start 01/12/17 at 21:00 Carisoprodol (Soma) 350 mg Q8 PRN PO MUSCLE SPASMS; Start 01/12/17 at 03:30 Cinacalcet (Sensipar) 30 mg DAILY PO ; Start 01/12/17 at 09:00 Insulin Detemir (Levemir) 30 unit QHS@20 SC Last administered on 01/12/17 22: 04; Admin Dose 15 UNIT; Start 01/12/17 at 20:00 Montelukast Sodium (Singulair) 10 mg QPM PO Last administered on 01/12/17 21: 58; Admin Dose 10 MG; Start 01/12/17 at 21:00 Sucralfate (Carafate) 1 gm QID PO Last administered on 01/12/17 21:58; Admin Dose 1 GM; Start 01/12/17 at 09:00 Salmeterol Xinafoate/ Fluticasone (Advair 250/50 Diskus) 1 inh BID INH ; Start 01/12/17 at 11:00 Miscellaneous Information 1 ea NOTE XX ; Start 01/12/17 at 04:00 Glucose (Glutose) 15 gm Q15M PRN PO DECREASED GLUCOSE; Start 01/12/17 at 04:00 Glucose (Glutose) 22.5 gm Q15M PRN PO DECREASED GLUCOSE; Start 01/12/17 at 04: 00 Dextrose (D50w Syringe) 25 ml Q15M PRN IV DECREASED GLUCOSE; Start 01/12/17 at 04:00 Dextrose (D50w Syringe) 50 ml Q15M PRN IV DECREASED GLUCOSE; Start 01/12/17 at 04:00 Glucagon (Glucagen) 1 mg Q15M PRN IM DECREASED GLUCOSE; Start 01/12/17 at 04:00 Glucose (Glutose) 15 gm Q15M PRN BUCCAL DECREASED GLUCOSE; Start 01/12/17 at 04 :00 Miscellaneous Information This patient sexton... PRN PRN XX WOUND CARE; Start 01/12 at 04:30 Meropenem/Sodium Chloride 50 ml @ 100 mls/hr Q24H IVPB Last administered on 13:45; Admin Dose 100 MLS/HR; Start 01/12/17 at 13:00 Caspofungin/ Sodium Chloride (Cancidas/NS) 250 ml @ 250 mls/hr Q24H IVPB Last administered on 01/13/17 12:19; Admin Dose 250 MLS/HR; Start 01/13/17 at 12:00 Sodium Hypochlorite 1 applic 1 applic BID IRR Last administered on 01/13/17 08 :58; Admin Dose 1 APPLIC; Start 01/12/17 at 13:00 Norepinephrine/ Dextrose (Levophed/D5W) 500 ml @ 0 mls/hr TITRATE IV Last administered on 01/13/17 01:49; Admin Dose 22.5 MLS/HR; Start 01/12/17 at 17:30 IV Flush 10 ml 10 ml PRN PRN IV IV PROTOCOL; Start 01/12/17 at 18:00 Dextrose/Sodium Chloride 1,000 ml @ 100 mls/hr Q10H IV Last administered on 07:30; Admin Dose 100 MLS/HR; Start 01/12/17 at 21:30 Amiodarone HCl 900 mg/Dextrose 500 ml @ 0 mls/hr Q0M IV Last administered on 23:32; Admin Dose 33.4 MLS/HR; Start 01/12/17 at 22:45 Pantoprazole/ Sodium Chloride (Protonix Iv/NS) 100 ml @ 10 mls/hr Q10H IV Last administered on 01/13/17 12:19; Admin Dose 10 MLS/HR; Start 01/13/17 at 02 :00 Insulin Aspart (Novolog Insulin Pen) (Adult SC Insulin - Moder... Q4 SC Last administered on 01/13/17 12:19; Admin Dose 6 UNIT; Start 01/13/17 at 09:00 Miscellaneous Information (*Rx Drug Level Order Reminder*) VANCO RANDOM W/ AM LABS... ONCE ONCE XX ; Start 01/14/17 at 05:00; Stop 01/14/17 at 05:01 BECKY GAMBLE MD Jan 13, 2017 14:13
[2017-01-13 14:16] LABS: CREATINE KINASE < 20 IU/L (23-200)
[2017-01-13 14:22] LABS: CK-MB 2.22 ng/ml (0.0-2.4); TROPONIN-I 0.054 ng/ml (0.00-0.12)
--- NOTE | 2017-01-13 14:28 | PN ---
Date/Time of Note Date/Time of Note DATE: 01/13/17 TIME: 14:18 Assessment/Plan Lines/Catheters IV Catheter Type (from [facility]): PICC Line Whitaker in Place (from [facility]): No Assessment/Plan Chief Complaint/Hosp Course 1. Bilateral upper thighs and right flank wounds: 2/2 pressure from immobility; atherosclerosis but not flow limiting (previous records); left thigh s/p wound vac; right thigh s/p debridement -debridement when patient medically stable -local wound care with dakin's -offloading and turning frequently -specialty mattress -abx per sensitivity- sensitivities pending 2.Septic shock: multifactorial: 2/2 #1 + anemia: on pressors, prbc tx -supportive -as above 3. Normocytic hypochromic anemia: hx of gi bleed esophagitis, gastritis; s/p prbc transfusion h/h stable -monitor and transfuse prn -work up for recurrent gi bleed 4. Leukocytosis: wbc up -as above 5. Hyponatremia: -judicious fluids 6. ESRD with HD -per nephro 7. Mild hypercalcemia: likely 2/2 hypovolemia -judicious fluids 8. Hypoalbuminemia: likely 2/2 malnutrition + inflammation -supportive -optimize nutrition 9. Coagulopathy: [facility] -correct -rule out acute bleed source of bleed before restarting anticoagulant 10. Venous stasis dermatitis 11. Diabetes -blood sugar optimization 12. History of falls -PT as patient condition permits -fall precautions 13. Morbidly Obese -diet and physical modification 14. CHF: -diuresis and HD Thank you. Patient seen and examined in collaboration with Dr. Kenney Forrester. Problems: Subjective 24 Hr Interval Summary Somnolent, confused. Continues on pressors and amiodarone and in controlled afib. Currently getting HD. S/p PRBC transfusion yesterday. Continues to have dark drainage from ng tube. Large drainage from right thigh and mod drainage from left thigh. No fevers, chills, cp, palpitations, n/v/d/dysuria. Appears comfortable. Non-verbal indicators of pain not present. Exam/Review of Systems Vital Signs Vitals Vital Signs Date Time Temp Pulse Resp B/P Pulse Ox O2 Delivery O2 Flow Rate FiO2 01/13/17 13:23 3.0 01/13/17 13:15 96 11 97 8/31/17 13:00 116/65 01/13/17 11:00 97.5 01/13/17 08:00 Nasal Cannula Intake and Output 01/12/17 01/12/17 01/13/17 15:00 23:00 07:00 Intake Total 1450.52 ml 995 ml 1063.70 ml Output Total 500 ml Balance 950.52 ml 995 ml 1063.70 ml Exam Free Text/Dictation Constitutional: nonresponsive Psych: Constitutional: alert, oriented Psych: anxiety, No nl mood/affect Head: atraumatic, normocephalic Eyes: nl lids, nl sclera ENMT: No nl lips & teeth (missing teeth) Neck: non-tender, supple Respiratory: diminished Cardiovascular: regular rate and rhythm Gastrointestinal: non-tender, other (obese), soft Musculoskeletal: No nl gait and stance Extremities: No edema, No normal pulses Neurological: nl speech, nl strength Skin: other (wounds: Right thigh/trochanter area with areas of necrotic tissue , large drainage periwound erythema, malodorous; left thigh: wound bed with slough, mod drainage) nl mood/affect Head: atraumatic, normocephalic Eyes: nl lids, nl sclera ENMT: No nl lips & teeth (missing teeth) Neck: non-tender, supple Respiratory: normal air movement Cardiovascular: regular rate and rhythm Gastrointestinal: non-tender, other (obese), soft Musculoskeletal: muscle weakness, No nl gait and stance Extremities: +2 BLE edema, No normal pulses Results Result Diagram: 01/13/17 1302 01/13/17 0500 JUSTIN FOX NP Jan 13, 2017 14:28
--- NOTE | 2017-01-13 14:32 | PN ---
DATE: 01/13/2017 SUBJECTIVE DATA: No events overnight. The patient is lethargic, looks comfortable. She has nasogastric tube that is draining coffee-ground secretions. Opens eyes to voice and stimulation. Temperature 97.5, pulse 94, respirations 8, blood pressure 109/64, saturation 98 percent on nasal cannula. LABORATORY AND DIAGNOSTIC DATA: WBC 25.2, H and H 9.6 and 29.2, platelets 435. MICROBIOLOGY: Blood cultures remain negative. Wound culture pending. Chest x-ray this morning revealed CHF with bilateral pleural effusions and atelectasis, right great greater than left. INDWELLINGS: NGT, PICC line, left upper extremity AV fistula. ANTIMICROBIALS: Cancidas, meropenem, vancomycin. PHYSICAL EXAMINATION: GENERAL: This is a morbidly obese, elderly white woman, who is in no distress. HEENT: Head atraumatic, normocephalic. Sclerae anicteric. Buccal mucosa dry. NECK: The neck is obese. CHEST: Chest rise symmetrical. Breath sounds diminished at the bases. HEART: S1, S2. ABDOMEN: Obese, soft, bowel sounds hypoactive. EXTREMITIES: With bilateral edema. The patient has multiple wounds, left lateral thigh with erythema and necrotic wound. ASSESSMENT: 1. Severe sepsis with shock, multifactorial. 2. GI bleeding with acute anemia. 3. Necrotic infected left thigh wound with previous culture that grew yeast, Enterococcus and coag-negative Staph species. 4. Morbid obesity. 5. End-stage renal disease, hemodialysis dependent. 6. Acute respiratory failure. 7. Atrial fibrillation, remains on amiodarone drip. 8. Allergy to penicillin and Cipro. PLAN: The patient remains stable, off Levophed drip. She remains on amiodarone drip. Heart rate controlled. She is being followed by multiple consultants pending GI evaluation. Continue local wound care as per surgery and vascular team. Dictated By: Rita Correa NP /herrera/fer /Document#: [id number] SARAH
[2017-01-13] MEDS: MEROPENEM 500MG/50 ML (PMX) 50 ML IVPB SCH (14:37)
--- NOTE | 2017-01-13 17:10 | RADRPT ---
Vent Rate: 97 bpm RR Interval: 0 msec UT Interval: 0 msec QRS Duration: 96 msec QT Interval: 366 msec QTC Interval: 464 msec P-R-T [place]: 0 - 72 - 0 degrees Atrial fibrillation Indeterminate axis Incomplete right bundle branch block Septal infarct , age undetermined Marked ST abnormality, possible inferior subendocardial injury Abnormal ECG Electronically Signed By: Issa Bueno [id number]
[2017-01-13 18:17] LABS: HEMATOCRIT 28.5 % (37.0-47.0); HEMOGLOBIN 9.5 g/dl (12.0-16.0)
[2017-01-13 18:29] LABS: CREATINE KINASE < 20 IU/L (23-200)
[2017-01-13 18:42] LABS: CK-MB 1.93 ng/ml (0.0-2.4); TROPONIN-I 0.037 ng/ml (0.00-0.12)
[2017-01-13] MEDS: ATORVASTATIN 40 MG TAB PO SCH (20:51)
[2017-01-13] MEDS: MONTELUKAST 10 MG TAB PO SCH (20:52)
[2017-01-13] MEDS: INSULIN DETEMIR [LEVEMIR] 3ML CART SC SCH (20:58)
[2017-01-13] MEDS: LORAZEPAM 2 MG INJ IV PRN (22:25)
[2017-01-14] VITALS (45 sets, daily range): BP systolic 83–138; BP diastolic 44–81; PULSE 56–97; RESP 6–15
[2017-01-14] MEDS: AMIODARONE 900 MG in DEXTROSE 5% 482 ML IV SCH (00:29)
[2017-01-14] MEDS: Insulin NOVOLOG SS MODERATE Algorithm(NPO/TPN/ENTERAL FEEDS) SC SCH ×6 (00:49→20:59)
[2017-01-14 01:10] LABS: HEMATOCRIT 25.4 % (37.0-47.0); HEMOGLOBIN 8.6 g/dl (12.0-16.0)
[2017-01-14 01:37] LABS: CREATINE KINASE < 20 IU/L (23-200)
[2017-01-14 01:47] LABS: CK-MB 1.48 ng/ml (0.0-2.4); TROPONIN-I 0.048 ng/ml (0.00-0.12)
[2017-01-14] MEDS: DEXTROSE 5%-0.45% NACL 1,000 ML IV SCH ×3 (03:30→23:30)
[2017-01-14 05:21] LABS: ABNORMAL IP MESSAGE 1; BASOPHIL # 0.1 10^3/ul (0.0-0.1); BASOPHILS % 0.3 % (0.0-2.0); EOSINOPHILS # 0.5 10^3/ul (0.0-0.5); EOSINOPHILS % 3.2 % (0.0-7.0); HEMATOCRIT 28.7 % (37.0-47.0); HEMOGLOBIN 9.5 g/dl (12.0-16.0); LYMPHOCYTES # 1.6 10^3/ul (0.8-2.9); LYMPHOCYTES % 9.5 % (15.0-51.0); MEAN CORPUSCULAR HEMOGLOBIN 28.3 pg (29.0-33.0); MEAN CORPUSCULAR HGB CONC 33.1 g/dl (32.0-37.0); MEAN CORPUSCULAR VOLUME 85.4 fl (82.0-101.0); MEAN PLATELET VOLUME 8.9 fl (7.4-10.4); MONOCYTE # 1.5 10^3/ul (0.3-0.9); NEUTROPHILS % 68.6 % (39.0-77.0); NUCLEATED RED BLOOD CELLS # 0.3 10^3/ul (0.0-0.0); NUCLEATED RED BLOOD CELLS% 1.6 /100WBC (0.0-0.0); PLATELET COUNT 318 10^3/UL (140-415); RED BLOOD COUNT 3.36 10^6/ul (4.20-5.40); RED CELL DISTRIBUTION WIDTH 18.1 % (11.5-14.5); WHITE BLOOD COUNT 16.6 10^3/ul (4.8-10.8)
[2017-01-14 05:26] LABS: POSITIVE DIFF @See below
[2017-01-14 05:59] LABS: CALCIUM 9.3 mg/dl (8.4-10.2); CREATININE 2.74 mg/dl (0.44-1.00); POTASSIUM 3.3 mmol/L (3.5-5.1)
[2017-01-14] MEDS: morphine 2 MG INJ IV PRN ×3 (06:54→21:17)
[2017-01-14 07:45] LABS: CHOL/HDL RATIO 1.7 RATIO
[2017-01-14] MEDS: CINACALCET 30 MG TAB PO SCH (08:06)
[2017-01-14] MEDS: SUCRALFATE 1 GM TAB PO SCH ×4 (08:06→20:56)
[2017-01-14] MEDS: SALMETEROL/FLUTICASONE 250/50 INHA INH SCH (09:00)
[2017-01-14] MEDS: PANTOPRAZOLE IV 80 MG in SOD CHLORIDE 0.9% 100 ML IV SCH ×3 (09:00→22:32)
[2017-01-14] MEDS: SODIUM HYPOCHLORITE 0.125% 473 ML BTL IRR SCH ×2 (09:01→20:56)
--- NOTE | 2017-01-14 10:45 | PN ---
Date/Time of Note Date/Time of Note DATE: 01/14/17 TIME: 10:23 Assessment/Plan VTE Prophylaxis VTE Prophylaxis Intervention: contraindicated Lines/Catheters IV Catheter Type (from [facility]): PICC Line Central line still needed: Yes Urinary Cath still in place: No Assessment/Plan Chief Complaint/Hosp Course Assessment/Plan: 61-year-old female with a history of hypertension, insulin- dependent diabetes, ESRD on HD, lower extremity thigh gangrenous decubitus ulcer status post debridement, chronic atrial fibrillation, erosive gastritis and esophagitis who was sent from the rehab for weakness and hypotension, with septic shock arrhythmia and signs of upper GI bleeding. 1. Shock, secondary to blood loss and sepsis from pneumonia as well as likely wound infection- off pressor support since this AM. Continue broad-spectrum antibiotics per ID recommendations and pressor support. -Follow-up culture results -ID consult commendations 2. ESRD on HD -Nephrology consult for dialysis - s/p HD yesterday - f/u renal rec's 3. Lower extremity thigh decubitus ulcer -appreciate general surgery consult. Patient had debridement with placement of a wound VAC during previous hospitalizations. -Per general surgery recommendations, continue wound care, for possible debridement when more medically stable. -Follow-up wound care consult 4. Insulin-dependent diabetes A1c is actually 5.6 -Continue insulin with adjustment as needed 5. History of chronic atrial fibrillation- presently on amiodarone drip now, HR nL, seen by CV team yesterday. -continue amiodarone drip for now, s/p digoxin meds, monitor heart rate -Follow-up cardiology recommendations 6. Electrolyte abnormalities -Correct as needed 7. Upper GI bleeding: Patient has prior history of this in the past, and now dark red blood coming from NG tube. -Follow-up H&H every 6 hours, f/u GI consult, follow-up occult test as well. Critical care time spent on patient care today equals 45 minutes. Problems: Subjective 24 Hr Interval Summary Free Text/Dictation Patient had dialysis yesterday. Off pressor support since 4 AM today, will on amiodarone drip. Seen by cardiology team yesterday. Now on Protonix drip. No signs of any present upper GI bleeding this morning. Exam/Review of Systems Vital Signs Vitals Vital Signs Date Time Temp Pulse Resp B/P Pulse Ox O2 Delivery O2 Flow Rate FiO2 01/14/17 09:30 76 8 105/70 100 01/14/17 09:00 Nasal Cannula 2.0 01/14/17 08:00 97.4 01/14/17 02:54 27 Intake and Output 01/13/17 01/13/17 01/14/17 15:00 23:00 07:00 Intake Total 732.56 ml 2081.16 ml 922.95 ml Output Total 3500 ml 0 ml Balance -2767.44 ml 2081.16 ml 922.95 ml Exam Head: atraumatic, normocephalic, NG tube in place Eyes: nl lids, nl sclera ENMT: No nl lips & teeth (missing teeth) Neck: non-tender, supple Respiratory: normal air movement Cardiovascular: regular rate and rhythm Gastrointestinal: non-tender, other (obese), soft Extremities: No edema, No normal pulses Neurological: nl speech, nl strength Skin: other (wounds: Right thigh/trochanter area with areas of necrosis, no drainage; left thigh: wound bed with slough, no drainage) Results Result Diagram: 01/14/17 0400 01/14/17 0400 Results 24 hrs Laboratory Tests Test 01/13/17 11:51 01/13/17 13:02 01/13/17 16:36 01/13/17 17:34 Bedside Glucose 231 H 205 Hemoglobin 10.7 L 9.5 L Hematocrit 32.0 L 28.5 L Creatine Kinase < 20 L < 20 L Creatine Kinase Index Creatinine Kinase MB (Mass) 2.22 1.93 Troponin I 0.054 0.037 Test 01/13/17 20:46 01/14/17 00:31 01/14/17 00:44 01/14/17 04:00 Bedside Glucose 178 160 Hemoglobin 8.6 L 9.5 L Hematocrit 25.4 L 28.7 L Creatine Kinase < 20 L Creatine Kinase Index Creatinine Kinase MB (Mass) 1.48 Troponin I 0.048 White Blood Count 16.6 #H Red Blood Count 3.36 L Mean Corpuscular Volume 85.4 Mean Corpuscular Hemoglobin 28.3 L Mean Corpuscular Hemoglobin Concent 33.1 Red Cell Distribution Width 18.1 H Platelet Count 318 # Mean Platelet Volume 8.9 Neutrophils % 68.6 Lymphocytes % 9.5 L Monocytes % 9.0 Eosinophils % 3.2 Basophils % 0.3 Nucleated Red Blood Cells % 1.6 H Neutrophils # (Manual) 11.4 H Lymphocytes # 1.6 Monocytes # 1.5 H Eosinophils # 0.5 Basophils # 0.1 Nucleated Red Blood Cells # 0.3 H Sodium Level 135 Potassium Level 3.3 L Chloride Level 102 Carbon Dioxide Level 24 Anion Gap 12 # Blood Urea Nitrogen 36 H Creatinine 2.74 H Glucose Level 85 # Calcium Level 9.3 Triglycerides Level 44 Cholesterol Level 71 L LDL Cholesterol, Calculated 21 HDL Cholesterol 41 Cholesterol/HDL Ratio 1.7 Random Vancomycin Level 20.5 Test 01/14/17 05:42 01/14/17 08:59 Bedside Glucose 86 73 Medications Medications Current Medications Ondansetron HCl (Zofran Inj) 4 mg Q6H PRN IV NAUSEA AND/OR VOMITING; Start at 03:30 Metoclopramide HCl (Reglan) 10 mg Q6H PRN IV NAUSEA AND/OR VOMITING; Start at 03:30 Acetaminophen (Tylenol Liquid) 650 mg Q6H PRN PO PAIN LEVEL 1-3 OR FEVER; Start 01/12/17 at 03:30 Morphine Sulfate (morphine) 2 mg Q4H PRN IV PAIN LEVEL 7-10 Last administered on 01/14/17 06:54; Admin Dose 2 MG; Start 01/12/17 at 03:30 Magnesium Hydroxide (Milk Of Mag) 30 ml DAILY PRN PO CONSTIPATION; Start at 03:30 Atorvastatin Calcium (Lipitor) 40 mg QHS PO Last administered on 01/13/17 20: 51; Admin Dose 40 MG; Start 01/12/17 at 21:00 Carisoprodol (Soma) 350 mg Q8 PRN PO MUSCLE SPASMS; Start 01/12/17 at 03:30 Cinacalcet (Sensipar) 30 mg DAILY PO ; Start 01/12/17 at 09:00 Insulin Detemir (Levemir) 30 unit QHS@20 SC Last administered on 01/13/17 20: 58; Admin Dose 30 UNIT; Start 01/12/17 at 20:00 Montelukast Sodium (Singulair) 10 mg QPM PO Last administered on 01/13/17 20: 52; Admin Dose 10 MG; Start 01/12/17 at 21:00 Sucralfate (Carafate) 1 gm QID PO Last administered on 01/13/17 20:51; Admin Dose 1 GM; Start 01/12/17 at 09:00 Salmeterol Xinafoate/ Fluticasone (Advair 250/50 Diskus) 1 inh BID INH ; Start 01/12/17 at 11:00 Miscellaneous Information 1 ea NOTE XX ; Start 01/12/17 at 04:00 Glucose (Glutose) 15 gm Q15M PRN PO DECREASED GLUCOSE; Start 01/12/17 at 04:00 Glucose (Glutose) 22.5 gm Q15M PRN PO DECREASED GLUCOSE; Start 01/12/17 at 04: 00 Dextrose (D50w Syringe) 25 ml Q15M PRN IV DECREASED GLUCOSE; Start 01/12/17 at 04:00 Dextrose (D50w Syringe) 50 ml Q15M PRN IV DECREASED GLUCOSE; Start 01/12/17 at 04:00 Glucagon (Glucagen) 1 mg Q15M PRN IM DECREASED GLUCOSE; Start 01/12/17 at 04:00 Glucose (Glutose) 15 gm Q15M PRN BUCCAL DECREASED GLUCOSE; Start 01/12/17 at 04 :00 Miscellaneous Information This patient sexton... PRN PRN XX WOUND CARE; Start 01/12 at 04:30 Meropenem/Sodium Chloride 50 ml @ 100 mls/hr Q24H IVPB Last administered on 14:37; Admin Dose 100 MLS/HR; Start 01/12/17 at 13:00 Caspofungin/ Sodium Chloride (Cancidas/NS) 250 ml @ 250 mls/hr Q24H IVPB Last administered on 01/13/17 12:19; Admin Dose 250 MLS/HR; Start 01/13/17 at 12:00 Sodium Hypochlorite 1 applic 1 applic BID IRR Last administered on 01/14/17 09: 01; Admin Dose 1 APPLIC; Start 01/12/17 at 13:00 Norepinephrine/ Dextrose (Levophed/D5W) 500 ml @ 0 mls/hr TITRATE IV Last administered on 01/13/17 01:49; Admin Dose 22.5 MLS/HR; Start 01/12/17 at 17:30 IV Flush 10 ml 10 ml PRN PRN IV IV PROTOCOL; Start 01/12/17 at 18:00 Dextrose/Sodium Chloride 1,000 ml @ 100 mls/hr Q10H IV Last administered on 17:42; Admin Dose 100 MLS/HR; Start 01/12/17 at 21:30 Amiodarone HCl 900 mg/Dextrose 500 ml @ 0 mls/hr Q0M IV Last administered on 00:29; Admin Dose 16.7 MLS/HR; Start 01/12/17 at 22:45 Pantoprazole/ Sodium Chloride (Protonix Iv/NS) 100 ml @ 10 mls/hr Q10H IV Last administered on 01/14/17 09:00; Admin Dose 10 MLS/HR; Start 01/13/17 at 02: 00 Insulin Aspart (Novolog Insulin Pen) (Adult SC Insulin - Moder... Q4 SC Last administered on 01/14/17 00:49; Admin Dose 2 UNIT; Start 01/13/17 at 09:00 Lorazepam (Ativan) 1 mg Q3H PRN IV anxiety Last administered on 01/13/17 22: 25; Admin Dose 1 MG; Start 01/13/17 at 22:30 ERICK MATOS Jan 14, 2017 10:41
[2017-01-14] MEDS ORDERED: SOD CHLORIDE 0.9% 250 ML IV* ONE (11:20)
[2017-01-14] MEDS ORDERED: AMIKACIN IV PER PHARMACY XX SCH (11:30)
--- NOTE | 2017-01-14 11:38 | CONS ---
Date/Time of Note Date/Time of Note DATE: 01/14/17 TIME: 11:22 Assessment/Plan Assessment/Plan Chief Complaint/Hosp Course Impression: 1. Anemia: noted to have coffee ground emesis on NG tube 2. atrial fibrillation: on amiodarone 3. altered mental status 4. elevated INR Recommendations: 1. NPO 2. continue protonix gtt 3. FFP 2 units now to correct coagulopathy 4. consider vitamin K 5. plan for EGD later today Problems: Consultation Date/Type/Reason Admit Date/Time Jan 12, 2017 at 04:33 Date of Consultation: Jan 14, 2017 Type of Consultation: GI Hx of Present Illness 61-year-old female, who is admitted for altered mental status and symptomatic anemia. She has history of hypertension, diabetes mellitus, end-stage renal disease on hemodialysis, lower extremity ulceration, status post debridement, atrial fibrillation, gastritis esophagitis, who was initially sent from her facility with weakness, hypotension. Upon arrival in the ER, the patient was noted to have a blood pressure 61/38, pulse of 107, atrial fibrillation and hemoglobin of 5.4. Patient's labs notable for a white blood cell count of 25, hemoglobin is as above 5.4, platelet count of 495. Sodium 134, potassium 3.8, creatinine 3.0, BUN of 36. AST 16, ALT 30. INR of 2.29. A head CT revealing mild diffuse volume loss, microvascular ischemic changes, mild mucosal thickening of the sphenoid sinus. Patient's electrocardiogram revealed atrial fibrillation, rate of 120, normal axis, normal intervals, anteroseptal Q's, nonspecific ST and T-wave abnormalities diffusely and inferolateral ST depressions. The patient was subsequently admitted to the ICU where she has required initiation of pressure support and is on amiodarone at this time. The patient has undergone transfusion with most recent hemoglobin of 9.5. INR is 2.2 but pt not on coumadin. Patient no longer on pressors. unable to obtain due to altered mental status Constitutional: disoriented Eyes: No discharge ENT: No congestion Respiratory: No shortness of breath Gastrointestinal: No blood, No diarrhea, No nausea, No vomiting Genitourinary: No bleeding Skin: other (multiple wounds; malodorous) Neurologic: No headache Psychological: confusion Past Medical History Medical History: congestive heart failure, coronary artery disease, diabetes, hypertension, renal disease Past Surgical History Past Surgical Hx: other Family History Significant Family History: no pertinent family hx Social History Alcohol Use: none Smoking Status: Former smoker Drug Use: none Exam/Review of Systems Vital Signs Vitals Vital Signs Date Time Temp Pulse Resp B/P Pulse Ox O2 Delivery O2 Flow Rate FiO2 01/14/17 10:00 76 8 109/74 100 Nasal Cannula 2.0 01/14/17 08:00 97.4 01/14/17 02:54 27 Intake and Output 01/13/17 01/13/17 01/14/17 15:00 23:00 07:00 Intake Total 732.56 ml 2081.16 ml 1022.95 ml Output Total 3500 ml 0 ml Balance -2767.44 ml 2081.16 ml 1022.95 ml Exam Constitutional: obese Psych: confusion Head: atraumatic, normocephalic Eyes: EOMI, nl conjunctiva, nl lids, nl sclera ENMT: mucosa pink and moist, nl external ears & nose, nl lips & teeth, nl nasal mucosa & septum Neck: non-tender, supple Respiratory: clear to auscultation, normal air movement Cardiovascular: nl pulses, regular rate and rhythm Gastrointestinal: bowel sounds, non-tender, soft Neurological: confused, lethargic Results Result Diagram: 01/14/17 0400 01/14/17 0400 Results 24 hrs Laboratory Tests Test 01/13/17 11:51 01/13/17 13:02 01/13/17 16:36 01/13/17 17:34 Bedside Glucose 231 H 205 Hemoglobin 10.7 L 9.5 L Hematocrit 32.0 L 28.5 L Creatine Kinase < 20 L < 20 L Creatine Kinase Index Creatinine Kinase MB (Mass) 2.22 1.93 Troponin I 0.054 0.037 Test 01/13/17 20:46 01/14/17 00:31 01/14/17 00:44 01/14/17 04:00 Bedside Glucose 178 160 Hemoglobin 8.6 L 9.5 L Hematocrit 25.4 L 28.7 L Creatine Kinase < 20 L Creatine Kinase Index Creatinine Kinase MB (Mass) 1.48 Troponin I 0.048 White Blood Count 16.6 #H Red Blood Count 3.36 L Mean Corpuscular Volume 85.4 Mean Corpuscular Hemoglobin 28.3 L Mean Corpuscular Hemoglobin Concent 33.1 Red Cell Distribution Width 18.1 H Platelet Count 318 # Mean Platelet Volume 8.9 Neutrophils % 68.6 Lymphocytes % 9.5 L Monocytes % 9.0 Eosinophils % 3.2 Basophils % 0.3 Nucleated Red Blood Cells % 1.6 H Neutrophils # (Manual) 11.4 H Lymphocytes # 1.6 Monocytes # 1.5 H Eosinophils # 0.5 Basophils # 0.1 Nucleated Red Blood Cells # 0.3 H Sodium Level 135 Potassium Level 3.3 L Chloride Level 102 Carbon Dioxide Level 24 Anion Gap 12 # Blood Urea Nitrogen 36 H Creatinine 2.74 H Glucose Level 85 # Calcium Level 9.3 Triglycerides Level 44 Cholesterol Level 71 L LDL Cholesterol, Calculated 21 HDL Cholesterol 41 Cholesterol/HDL Ratio 1.7 Random Vancomycin Level 20.5 Test 01/14/17 05:42 01/14/17 08:59 Bedside Glucose 86 73 Medications Medications Current Medications Ondansetron HCl (Zofran Inj) 4 mg Q6H PRN IV NAUSEA AND/OR VOMITING; Start at 03:30 Metoclopramide HCl (Reglan) 10 mg Q6H PRN IV NAUSEA AND/OR VOMITING; Start at 03:30 Acetaminophen (Tylenol Liquid) 650 mg Q6H PRN PO PAIN LEVEL 1-3 OR FEVER; Start 01/12/17 at 03:30 Morphine Sulfate (morphine) 2 mg Q4H PRN IV PAIN LEVEL 7-10 Last administered on 01/14/17 06:54; Admin Dose 2 MG; Start 01/12/17 at 03:30 Magnesium Hydroxide (Milk Of Mag) 30 ml DAILY PRN PO CONSTIPATION; Start at 03:30 Atorvastatin Calcium (Lipitor) 40 mg QHS PO Last administered on 01/13/17 20: 51; Admin Dose 40 MG; Start 01/12/17 at 21:00 Carisoprodol (Soma) 350 mg Q8 PRN PO MUSCLE SPASMS; Start 01/12/17 at 03:30 Cinacalcet (Sensipar) 30 mg DAILY PO ; Start 01/12/17 at 09:00 Insulin Detemir (Levemir) 30 unit QHS@20 SC Last administered on 01/13/17 20: 58; Admin Dose 30 UNIT; Start 01/12/17 at 20:00 Montelukast Sodium (Singulair) 10 mg QPM PO Last administered on 01/13/17 20: 52; Admin Dose 10 MG; Start 01/12/17 at 21:00 Sucralfate (Carafate) 1 gm QID PO Last administered on 01/13/17 20:51; Admin Dose 1 GM; Start 01/12/17 at 09:00 Salmeterol Xinafoate/ Fluticasone (Advair 250/50 Diskus) 1 inh BID INH ; Start 01/12/17 at 11:00 Miscellaneous Information 1 ea NOTE XX ; Start 01/12/17 at 04:00 Glucose (Glutose) 15 gm Q15M PRN PO DECREASED GLUCOSE; Start 01/12/17 at 04:00 Glucose (Glutose) 22.5 gm Q15M PRN PO DECREASED GLUCOSE; Start 01/12/17 at 04: 00 Dextrose (D50w Syringe) 25 ml Q15M PRN IV DECREASED GLUCOSE; Start 01/12/17 at 04:00 Dextrose (D50w Syringe) 50 ml Q15M PRN IV DECREASED GLUCOSE; Start 01/12/17 at 04:00 Glucagon (Glucagen) 1 mg Q15M PRN IM DECREASED GLUCOSE; Start 01/12/17 at 04:00 Glucose (Glutose) 15 gm Q15M PRN BUCCAL DECREASED GLUCOSE; Start 01/12/17 at 04 :00 Miscellaneous Information This patient sexton... PRN PRN XX WOUND CARE; Start 01/12 at 04:30 Caspofungin/ Sodium Chloride (Cancidas/NS) 250 ml @ 250 mls/hr Q24H IVPB Last administered on 01/13/17 12:19; Admin Dose 250 MLS/HR; Start 01/13/17 at 12:00 Sodium Hypochlorite 1 applic 1 applic BID IRR Last administered on 01/14/17 09: 01; Admin Dose 1 APPLIC; Start 01/12/17 at 13:00 Norepinephrine/ Dextrose (Levophed/D5W) 500 ml @ 0 mls/hr TITRATE IV Last administered on 01/13/17 01:49; Admin Dose 22.5 MLS/HR; Start 01/12/17 at 17:30 IV Flush 10 ml 10 ml PRN PRN IV IV PROTOCOL; Start 01/12/17 at 18:00 Dextrose/Sodium Chloride 1,000 ml @ 100 mls/hr Q10H IV Last administered on 10:39; Admin Dose 100 MLS/HR; Start 01/12/17 at 21:30 Amiodarone HCl 900 mg/Dextrose 500 ml @ 0 mls/hr Q0M IV Last administered on 00:29; Admin Dose 16.7 MLS/HR; Start 01/12/17 at 22:45 Pantoprazole/ Sodium Chloride (Protonix Iv/NS) 100 ml @ 10 mls/hr Q10H IV Last administered on 01/14/17 09:00; Admin Dose 10 MLS/HR; Start 01/13/17 at 02: 00 Insulin Aspart (Novolog Insulin Pen) (Adult SC Insulin - Moder... Q4 SC Last administered on 01/14/17 00:49; Admin Dose 2 UNIT; Start 01/13/17 at 09:00 Lorazepam 1 mg 1 mg Q3H PRN IV anxiety Last administered on 01/13/17 22:25; Admin Dose 1 MG; Start 01/13/17 at 22:30 Vancomycin HCl/ Sodium Chloride (Vancocin/NS) 150 ml @ 100 mls/hr ONCE IVPB ; Start 01/15/17 at 05:00; Stop 01/15/17 at 09:00 Amikacin Sulfate (Amikacin Iv Per Pharmacy) AMIKACIN PER PHARMACY NOTE XX ; Start 01/14/17 at 11:30 CHIP HERNANDEZ MD Jan 14, 2017 11:36
--- NOTE | 2017-01-14 12:14 | PN ---
DATE: 01/14/2017 SUBJECTIVE DATA: No events overnight. The patient is lethargic, arousable. She is in no distress. Afebrile. OBJECTIVE DATA: VITAL SIGNS: Afebrile. Temperature 97.4, pulse 65, respirations 8, blood pressure 99/52, saturation 100 on 2 L. LABORATORY AND DIAGNOSTIC DATA: WBC 16.6, H and H 9.5 and 29.7, platelets 218. INDWELLINGS: The patient has NG tube, PICC line placed on January 12 to her right arm. Left upper extremity AV fistula. Dictated By: Rita Correa NP /herrera/ibeth /Document#: [id number]
--- NOTE | 2017-01-14 12:15 | PN ---
DATE: 01/14/2017 ADDENDUM: ANTIMICROBIALS: The patient is on vancomycin, Cancidas, meropenem. MICROBIOLOGY: Blood cultures remain negative. Left thigh wound culture growing Pseudomonas aeruginosa, resistant to imipenem and intermittently sensitive to aztreonam, susceptible to all other antibiotics. ALLERGIES: PENICILLIN, CIPRO. OBJECTIVE DATA: GENERAL: This is a morbidly obese, elderly white woman, who is in no distress. HEENT: Head atraumatic, normocephalic. Sclerae anicteric. Buccal mucosa dry. NECK: Obese. CHEST: Rise symmetrical. Breath sounds diminished at the bases. HEART: S1, S2. ABDOMEN: Soft. Bowel sounds present. EXTREMITIES: Bilateral edema left upper thigh lateral part with necrotic wound. ASSESSMENT: 1. Sepsis status post shock, multifactorial, possibly also secondary to severe anemia on admission. 2. Infected left thigh wound, status post multiple debridement in the past with culture now growing Pseudomonas aeruginosa. Preliminary resistant to meropenem. 3. Acute anemia with gastrointestinal bleeding, H and H stable status post blood transfusion. 4. Morbid obesity. 5. End-stage renal disease. 6. Atrial fibrillation. PLAN: The patient is stable off pressors. WBC tracing down. We are going to change meropenem to amikacin. Continue vancomycin. Continue anti-aspiration measures. Monitor H and H. Follow recommendations of consultants. Pending wound debridement once patient is more stable. Dictated By: Rita Correa NP /herrera/ec /Document#: [id number]
--- NOTE | 2017-01-14 12:44 | CONS ---
Date/Time of Note Date/Time of Note DATE: 01/14/17 TIME: 12:38 Assessment/Plan Assessment/Plan Chief Complaint/Hosp Course IMPRESSION: 1. Atrial fibrillation. Currently, under improved rate control on amiodarone.-with some epsiodes of SVR to 40's transient 2. Hypotension-borderline currently off of pressor support 3. Abnormal electrocardiogram. Assess for acute coronary syndrome with inferolateral ST depressions, anteroseptal Q's. 4. Anemia.-negative trop x 3 5. Possible gastrointestinal bleed. 6. Lower extremity ulceration/wound. 7. Altered mental state. 8. End-stage renal disease. 9. Congestive heart failure with chest x-ray. Question systolic versus diastolic. 10. Coagulopathy? etiology synthetic dysfunction/poor nutrition REcc: -Tele in ICU -hold amio and follow rhythm given some dileep s/p one dose of digoxin -Follow hgb closely with pnding endoscopy today -Continue abx's and f/u cx data -HD as necessary/tolerated for volume removal -follow coagulopathy closely -Continue statin but decrease dose Problems: Consultation Date/Type/Reason Admit Date/Time Jan 12, 2017 at 04:33 Initial Consult Date 01/14/17 Type of Consultation: cardiology Reason for Consultation AF/hypotension Referring Provider: ERICK MATOS Exam/Review of Systems Vital Signs Vitals Vital Signs Date Time Temp Pulse Resp B/P Pulse Ox O2 Delivery O2 Flow Rate FiO2 01/14/17 10:00 76 8 109/74 100 Nasal Cannula 2.0 01/14/17 08:00 97.4 01/14/17 02:54 27 Intake and Output 01/13/17 01/13/17 01/14/17 15:00 23:00 07:00 Intake Total 732.56 ml 2081.16 ml 1022.95 ml Output Total 3500 ml 0 ml Balance -2767.44 ml 2081.16 ml 1022.95 ml Exam Review of Systems: CONSTITUTIONAL: No fevers, chills. PULMONARY: No obvious sob CARDIOVASCULAR: No chest pain/palpitations GASTROINTESTINAL: No nausea/vomiting. GENITOURINARY: No hematuria/dysuria. MUSCULOSKELETAL: No myagias/arthalgias. PSYCHIATRIC: The patient denies depression. NEUROLOGIC: lethargic Constitutional: other (sleeping) Psych: no complaints Head: normocephalic ENMT: mucosa pink and moist Neck: jvd (9 cm water), supple Respiratory: diminished breath sounds (at bases./B) Cardiovascular: irregular rhythm Gastrointestinal: non-tender, soft Musculoskeletal: muscle weakness (generalized) Extremities: pitting pedal edema (bilateral) Neurological: lethargic Results Result Diagram: 01/14/17 0400 01/14/17 0400 Results 24 hrs Laboratory Tests Test 01/13/17 13:02 01/13/17 16:36 01/13/17 17:34 01/13/17 20:46 Hemoglobin 10.7 L 9.5 L Hematocrit 32.0 L 28.5 L Creatine Kinase < 20 L < 20 L Creatine Kinase Index Creatinine Kinase MB (Mass) 2.22 1.93 Troponin I 0.054 0.037 Bedside Glucose 205 178 Test 01/14/17 00:31 01/14/17 00:44 01/14/17 04:00 01/14/17 05:42 Hemoglobin 8.6 L 9.5 L Hematocrit 25.4 L 28.7 L Creatine Kinase < 20 L Creatine Kinase Index Creatinine Kinase MB (Mass) 1.48 Troponin I 0.048 Bedside Glucose 160 86 White Blood Count 16.6 #H Red Blood Count 3.36 L Mean Corpuscular Volume 85.4 Mean Corpuscular Hemoglobin 28.3 L Mean Corpuscular Hemoglobin Concent 33.1 Red Cell Distribution Width 18.1 H Platelet Count 318 # Mean Platelet Volume 8.9 Neutrophils % 68.6 Lymphocytes % 9.5 L Monocytes % 9.0 Eosinophils % 3.2 Basophils % 0.3 Nucleated Red Blood Cells % 1.6 H Neutrophils # (Manual) 11.4 H Lymphocytes # 1.6 Monocytes # 1.5 H Eosinophils # 0.5 Basophils # 0.1 Nucleated Red Blood Cells # 0.3 H Sodium Level 135 Potassium Level 3.3 L Chloride Level 102 Carbon Dioxide Level 24 Anion Gap 12 # Blood Urea Nitrogen 36 H Creatinine 2.74 H Glucose Level 85 # Calcium Level 9.3 Triglycerides Level 44 Cholesterol Level 71 L LDL Cholesterol, Calculated 21 HDL Cholesterol 41 Cholesterol/HDL Ratio 1.7 Random Vancomycin Level 20.5 Test 01/14/17 08:59 Bedside Glucose 73 Medications Medications Current Medications Ondansetron HCl (Zofran Inj) 4 mg Q6H PRN IV NAUSEA AND/OR VOMITING; Start at 03:30 Metoclopramide HCl (Reglan) 10 mg Q6H PRN IV NAUSEA AND/OR VOMITING; Start at 03:30 Acetaminophen (Tylenol Liquid) 650 mg Q6H PRN PO PAIN LEVEL 1-3 OR FEVER; Start 01/12/17 at 03:30 Morphine Sulfate (morphine) 2 mg Q4H PRN IV PAIN LEVEL 7-10 Last administered on 01/14/17 06:54; Admin Dose 2 MG; Start 01/12/17 at 03:30 Magnesium Hydroxide (Milk Of Mag) 30 ml DAILY PRN PO CONSTIPATION; Start at 03:30 Atorvastatin Calcium (Lipitor) 40 mg QHS PO Last administered on 01/13/17 20: 51; Admin Dose 40 MG; Start 01/12/17 at 21:00 Carisoprodol (Soma) 350 mg Q8 PRN PO MUSCLE SPASMS; Start 01/12/17 at 03:30 Cinacalcet (Sensipar) 30 mg DAILY PO ; Start 01/12/17 at 09:00 Insulin Detemir (Levemir) 30 unit QHS@20 SC Last administered on 01/13/17 20: 58; Admin Dose 30 UNIT; Start 01/12/17 at 20:00 Montelukast Sodium (Singulair) 10 mg QPM PO Last administered on 01/13/17 20: 52; Admin Dose 10 MG; Start 01/12/17 at 21:00 Sucralfate (Carafate) 1 gm QID PO Last administered on 01/13/17 20:51; Admin Dose 1 GM; Start 01/12/17 at 09:00 Salmeterol Xinafoate/ Fluticasone (Advair 250/50 Diskus) 1 inh BID INH ; Start 01/12/17 at 11:00 Miscellaneous Information 1 ea NOTE XX ; Start 01/12/17 at 04:00 Glucose (Glutose) 15 gm Q15M PRN PO DECREASED GLUCOSE; Start 01/12/17 at 04:00 Glucose (Glutose) 22.5 gm Q15M PRN PO DECREASED GLUCOSE; Start 01/12/17 at 04: 00 Dextrose (D50w Syringe) 25 ml Q15M PRN IV DECREASED GLUCOSE; Start 01/12/17 at 04:00 Dextrose (D50w Syringe) 50 ml Q15M PRN IV DECREASED GLUCOSE; Start 01/12/17 at 04:00 Glucagon (Glucagen) 1 mg Q15M PRN IM DECREASED GLUCOSE; Start 01/12/17 at 04:00 Glucose (Glutose) 15 gm Q15M PRN BUCCAL DECREASED GLUCOSE; Start 01/12/17 at 04 :00 Miscellaneous Information This patient sexton... PRN PRN XX WOUND CARE; Start 01/12 at 04:30 Caspofungin/ Sodium Chloride (Cancidas/NS) 250 ml @ 250 mls/hr Q24H IVPB Last administered on 01/13/17 12:19; Admin Dose 250 MLS/HR; Start 01/13/17 at 12:00 Sodium Hypochlorite 1 applic 1 applic BID IRR Last administered on 01/14/17 09: 01; Admin Dose 1 APPLIC; Start 01/12/17 at 13:00 Norepinephrine/ Dextrose (Levophed/D5W) 500 ml @ 0 mls/hr TITRATE IV Last administered on 01/13/17 01:49; Admin Dose 22.5 MLS/HR; Start 01/12/17 at 17:30 IV Flush 10 ml 10 ml PRN PRN IV IV PROTOCOL; Start 01/12/17 at 18:00 Dextrose/Sodium Chloride 1,000 ml @ 100 mls/hr Q10H IV Last administered on 10:39; Admin Dose 100 MLS/HR; Start 01/12/17 at 21:30 Amiodarone HCl 900 mg/Dextrose 500 ml @ 0 mls/hr Q0M IV Last administered on 00:29; Admin Dose 16.7 MLS/HR; Start 01/12/17 at 22:45 Pantoprazole/ Sodium Chloride (Protonix Iv/NS) 100 ml @ 10 mls/hr Q10H IV Last administered on 01/14/17 09:00; Admin Dose 10 MLS/HR; Start 01/13/17 at 02: 00 Insulin Aspart (Novolog Insulin Pen) (Adult SC Insulin - Moder... Q4 SC Last administered on 01/14/17 00:49; Admin Dose 2 UNIT; Start 01/13/17 at 09:00 Lorazepam 1 mg 1 mg Q3H PRN IV anxiety Last administered on 01/13/17t 22:25; Admin Dose 1 MG; Start 01/13/17 at 22:30 Vancomycin HCl/ Sodium Chloride (Vancocin/NS) 150 ml @ 100 mls/hr ONCE IVPB ; Start 01/15/17 at 05:00; Stop 01/15/17 at 09:00 Amikacin Sulfate AMIKACIN PER PHARMACY NOTE XX ; Start 01/14/17 at 11:30 Amikacin Sulfate/ Dextrose (Amikacin/D5W) 102 ml @ 102 mls/hr ONCE ONCE IVPB ; Start 01/14/17 at 13:00; Stop 01/14/17 at 13:59 DEYSI HILLMAN Jan 14, 2017 12:44
[2017-01-14] MEDS ORDERED: AMIKACIN 500 MG in DEXTROSE 5% 100 ML IVPB ONE (13:00)
[2017-01-14 13:51] LABS: HEMOGLOBIN 9.4 g/dl (12.0-16.0)
--- NOTE | 2017-01-14 15:38 | RADRPT ---
Vent Rate: 80 bpm RR Interval: 0 msec MD Interval: 0 msec QRS Duration: 104 msec QT Interval: 406 msec QTC Interval: 468 msec P-R-T [place]: 0 - 94 - 0 degrees Basline artifact, likely atrial flutter Rightward axis Septal infarct , age undetermined ST amp; T wave abnormality, consider inferolateral ischemia Abnormal ECG Electronically Signed By: Issa Bueno [id number]
[2017-01-14] MEDS: CASPOFUNGIN 50 MG in SOD CHLORIDE 0.9% 250 ML IVPB SCH (15:39)
[2017-01-14] MEDS: LORAZEPAM 2 MG INJ IV PRN ×2 (16:52→22:33)
[2017-01-14 18:50] LABS: HEMATOCRIT 24.7 % (37.0-47.0); HEMOGLOBIN 8.1 g/dl (12.0-16.0)
--- NOTE | 2017-01-14 19:06 | OPR ---
Date/Time of Note Date/Time of Note DATE: 01/14/17 TIME: 19:04 Operative Report Free Text/Dictation Recommendations: 1. continue protonix gtt for another day, if h/h stable tomorrow then can change to 40 mg bid dosing 2. check H. pylori serology 3. no NG tube as it was hitting the gastric ulcer Procedure Date: Jan 14, 2017 Preoperative Diagnosis anemia, coffee ground material in NG tube Postoperative Diagnosis anemia, coffee ground material in NG tube Surgeon: CHIP HERNANDEZ MD Anesthesia Type: MAC Anesthesiologist: ADALBERTO REINA DO Estimated Blood Loss: minimal Transfusion Required: no Specimen: none Grafts/Implants: none Complications: no Pt Condition Post Procedure: stable Disposition: other (ICU room) Indications coffee ground in NG tube, anemia Operative\Procedure Findings 1. severe gastropathy 2. multiple gastric ulcer, one of the ulcer has overlying clot 3. NG trauma in the stomach and tip of NG was hitting one of the gastric ulcer 4. 3 cm hiatal hernia Procedure Description After timeout and confirming consent is signed, patient is incrementally sedated by Dr. Riddle. After adequate sedation, I inserted an adult EGD scope from the mouth and advanced to 2nd portion of the duodenum. I then withdraw the EGD scope to the stomach body where I performed retroflexion to examine the fundus and cardia. I then completely withdraw the EGD scope while removing air. GEJ and Z line at 39 cm with 3 cm hiatal hernia CHIP HERNANDEZ MD Jan 14, 2017 19:06
[2017-01-14] MEDS: MONTELUKAST 10 MG TAB PO SCH (20:56)
[2017-01-14] MEDS: ATORVASTATIN 20 MG TAB PO SCH (20:56)
[2017-01-14] MEDS: INSULIN DETEMIR [LEVEMIR] 3ML CART SC SCH (20:59)
--- NOTE | 2017-01-14 22:00 | PN ---
Date/Time of Note Date/Time of Note DATE: 01/14/17 TIME: 21:30 Assessment/Plan Lines/Catheters IV Catheter Type (from [facility]): PICC Line Whitaker in Place (from [facility]): No Assessment/Plan Chief Complaint/Hosp Course 1. Bilateral upper thighs and right flank wounds: 2/2 pressure from immobility; atherosclerosis but not flow limiting (previous records); left thigh s/p wound vac; right thigh s/p debridement -debridement when patient medically stable -local wound care with dakin's-increase to twice a day for large wound drainage -offloading and turning frequently -specialty mattress -abx per sensitivity- sensitivities pending 2.Septic shock: multifactorial: 2/2 #1 + anemia: off pressors, prbc tx -supportive -as above 3. Normocytic hypochromic anemia: hx of gi bleed esophagitis, gastritis; s/p prbc transfusion; S/p egd: gastric ulcers -monitor and transfuse prn -ppi -per gi 4. Leukocytosis: improving -as above 5. Hyponatremia: Improved -judicious fluids 6. ESRD with HD -per nephro 7. Mild hypercalcemia: likely 2/2 hypovolemia:resolved 8. Hypoalbuminemia: likely 2/2 malnutrition + inflammation -supportive -optimize nutrition 9. Coagulopathy: on Eliquis outpatient -correct 10. Venous stasis dermatitis 11. Diabetes -blood sugar optimization 12. History of falls -PT as patient condition permits -fall precautions 13. Morbidly Obese -diet and physical modification 14. CHF: -diuresis and HD 15. Atrial fibrillation: controlled rate; off amio -monitor -supportive Thank you. Patient seen and examined in collaboration with Dr. Kenney Forrester. Problems: Subjective 24 Hr Interval Summary More awake. Intermittently making incoherent noise. Continues in ICU. Off pressors. Large malodorous drainage from wounds. Tolerated hd yesterday. EGD done today. Hypothermic. No chills, sob, congested cough, n/v/d/dysuria. Exam/Review of Systems Vital Signs Vitals Vital Signs Date Time Temp Pulse Resp B/P Pulse Ox O2 Delivery O2 Flow Rate FiO2 01/14/17 19:22 69 14 107/56 100 Mask 10.0 01/14/17 18:45 96.0 01/14/17 02:54 27 Intake and Output 8/31/17 8/31/17 9/1/17 15:00 23:00 07:00 Intake Total 732.56 ml 2081.16 ml 1022.95 ml Output Total 3500 ml 0 ml Balance -2767.44 ml 2081.16 ml 1022.95 ml Exam Free Text/Dictation Constitutional: nonresponsive Psych: Constitutional: alert, oriented Psych: anxiety, No nl mood/affect Head: atraumatic, normocephalic Eyes: nl lids, nl sclera ENMT: No nl lips & teeth (missing teeth) Neck: non-tender, supple Respiratory: diminished Cardiovascular: regular rate and rhythm Gastrointestinal: non-tender, other (obese), soft Musculoskeletal: No nl gait and stance Extremities: No edema, No normal pulses Neurological: nl speech, nl strength Skin: other (wounds: Right thigh/trochanter area with areas of necrotic tissue and slough, large drainage periwound erythema min improved, malodorous; left thigh: wound bed with slough, mod drainage) nl mood/affect Results Result Diagram: 01/14/17 1843 01/14/17 0400 JUSTIN FOX NP Jan 14, 2017 21:58
[2017-01-15] VITALS (38 sets, daily range): BP systolic 70–115; BP diastolic 26–83; PULSE 43–93; RESP 6–16
[2017-01-15] MEDS: SALMETEROL/FLUTICASONE 250/50 INHA INH SCH ×3 (00:05→21:56)
[2017-01-15] MEDS: Insulin NOVOLOG SS MODERATE Algorithm(NPO/TPN/ENTERAL FEEDS) SC SCH ×6 (01:00→21:00)
[2017-01-15 01:17] LABS: HEMATOCRIT 25.2 % (37.0-47.0); HEMOGLOBIN 8.3 g/dl (12.0-16.0)
[2017-01-15] MEDS: DEXTROSE 5%-0.45% NACL 1,000 ML IV SCH ×4 (04:29→22:00)
[2017-01-15] MEDS ORDERED: VANCOMYCIN 750 MG in SOD CHLORIDE 0.9% 150 ML IVPB SCH (05:00)
[2017-01-15 05:26] LABS: ABNORMAL IP MESSAGE 1; BASOPHILS % 0.2 % (0.0-2.0); EOSINOPHILS # 0.7 10^3/ul (0.0-0.5); HEMATOCRIT 26.7 % (37.0-47.0); HEMOGLOBIN 8.6 g/dl (12.0-16.0); LYMPHOCYTES # 1.2 10^3/ul (0.8-2.9); LYMPHOCYTES % 8.7 % (15.0-51.0); MEAN CORPUSCULAR HEMOGLOBIN 28.3 pg (29.0-33.0); MEAN CORPUSCULAR HGB CONC 32.2 g/dl (32.0-37.0); MEAN CORPUSCULAR VOLUME 87.8 fl (82.0-101.0); MEAN PLATELET VOLUME 9.1 fl (7.4-10.4); MONOCYTE # 1.2 10^3/ul (0.3-0.9); MONOCYTES % 8.6 % (0.0-11.0); NEUTROPHILS % 70.1 % (39.0-77.0); NUCLEATED RED BLOOD CELLS # 0.1 10^3/ul (0.0-0.0); NUCLEATED RED BLOOD CELLS% 0.6 /100WBC (0.0-0.0); PLATELET COUNT 244 10^3/UL (140-415); RED BLOOD COUNT 3.04 10^6/ul (4.20-5.40); RED CELL DISTRIBUTION WIDTH 18.8 % (11.5-14.5); WHITE BLOOD COUNT 13.9 10^3/ul (4.8-10.8)
[2017-01-15 05:48] LABS: POSITIVE DIFF @See below
[2017-01-15 05:59] LABS: CALCIUM 8.1 mg/dl (8.4-10.2); CREATININE 2.81 mg/dl (0.44-1.00); POTASSIUM 3.2 mmol/L (3.5-5.1)
[2017-01-15] MEDS: SUCRALFATE 1 GM TAB PO SCH ×4 (08:51→21:00)
[2017-01-15] MEDS: CINACALCET 30 MG TAB PO SCH (08:51)
[2017-01-15] MEDS: PANTOPRAZOLE IV 80 MG in SOD CHLORIDE 0.9% 100 ML IV SCH ×2 (09:40→19:10)
[2017-01-15] MEDS: SODIUM HYPOCHLORITE 0.125% 473 ML BTL IRR SCH ×2 (09:58→21:57)
[2017-01-15] MEDS: LORAZEPAM 2 MG INJ IV PRN (09:58)
--- NOTE | 2017-01-15 10:47 | CONS ---
Date/Time of Note Date/Time of Note DATE: 01/15/17 TIME: 10:43 Assessment/Plan Assessment/Plan Chief Complaint/Hosp Course Impression: 1. Anemia: noted to have coffee ground emesis on NG tube - s/p EGD on 01/14/17 that showed severe gastropathy, multiple gastric ulcer, one of the ulcer has overlying clot and NG trauma in the stomach and tip of NG was hitting one of the gastric ulcer, 3 cm hiatal hernia 2. atrial fibrillation: on amiodarone 3. altered mental status 4. elevated INR Recommendations: 1. diet as tolerated 2. change protonix from gtt to bid dosing as h/h stable 3. check INR/PT. Eliquis do not typically cause elevated INR to this level 4. f/u H. pylori serology and treat for eradication if positive. Problems: Consultation Date/Type/Reason Admit Date/Time Jan 12, 2017 at 04:33 Initial Consult Date 01/14/17 Type of Consultation: GI Referring Provider: ERICK MATOS 24 HR Interval Summary Subjective hx not possible: other (patient is disoriented) Constitutional: disoriented Exam/Review of Systems Vital Signs Vitals Vital Signs Date Time Temp Pulse Resp B/P Pulse Ox O2 Delivery O2 Flow Rate FiO2 01/15/17 08:52 87 12 100 Nasal Cannula 4.0 01/15/17 05:00 95/53 01/15/17 04:00 98.0 01/14/17 02:54 27 Intake and Output 01/14/17 01/14/17 01/15/17 15:00 23:00 07:00 Intake Total 891.0 ml 1650 ml 1070 ml Output Total 0 ml 3300 ml Balance 891.0 ml 1650 ml -2230 ml Exam Psych: confusion Head: atraumatic, normocephalic Eyes: EOMI, nl conjunctiva, nl lids, nl sclera ENMT: mucosa pink and moist, nl external ears & nose, nl lips & teeth, nl nasal mucosa & septum Neck: non-tender, supple Respiratory: clear to auscultation, normal air movement Cardiovascular: nl pulses, regular rate and rhythm Gastrointestinal: bowel sounds, non-tender, soft Results Result Diagram: 01/15/17 0430 01/15/17 0430 Results 24 hrs Laboratory Tests Test 01/14/17 13:21 01/14/17 13:40 01/14/17 18:20 01/14/17 18:43 Bedside Glucose 71 77 Hemoglobin 9.4 L 8.1 L Hematocrit 28.0 L 24.7 L Test 01/14/17 20:54 01/15/17 01:04 01/15/17 01:06 01/15/17 04:30 Bedside Glucose 102 106 Hemoglobin 8.3 L 8.6 L Hematocrit 25.2 L 26.7 L White Blood Count 13.9 H Red Blood Count 3.04 L Mean Corpuscular Volume 87.8 Mean Corpuscular Hemoglobin 28.3 L Mean Corpuscular Hemoglobin Concent 32.2 Red Cell Distribution Width 18.8 H Platelet Count 244 # Mean Platelet Volume 9.1 Neutrophils % 70.1 Lymphocytes % 8.7 L Monocytes % 8.6 Eosinophils % 5.0 Basophils % 0.2 Nucleated Red Blood Cells % 0.6 H Neutrophils # (Manual) 9.7 H Lymphocytes # 1.2 Monocytes # 1.2 H Eosinophils # 0.7 H Basophils # 0.0 Nucleated Red Blood Cells # 0.1 H Sodium Level 130 L Potassium Level 3.2 L Chloride Level 101 Carbon Dioxide Level 23 Anion Gap 9 Blood Urea Nitrogen 35 H Creatinine 2.81 H Glucose Level 215 # Calcium Level 8.1 L Test 01/15/17 05:12 01/15/17 05:15 01/15/17 08:37 Bedside Glucose 81 86 Lab Scanned Report BLOOD TRANSFUSION Medications Medications Current Medications Ondansetron HCl (Zofran Inj) 4 mg Q6H PRN IV NAUSEA AND/OR VOMITING; Start at 03:30 Metoclopramide HCl (Reglan) 10 mg Q6H PRN IV NAUSEA AND/OR VOMITING; Start at 03:30 Acetaminophen (Tylenol Liquid) 650 mg Q6H PRN PO PAIN LEVEL 1-3 OR FEVER; Start 01/12/17 at 03:30 Morphine Sulfate (morphine) 2 mg Q4H PRN IV PAIN LEVEL 7-10 Last administered on 01/14/17t 21:17; Admin Dose 2 MG; Start 01/12/17 at 03:30 Magnesium Hydroxide (Milk Of Mag) 30 ml DAILY PRN PO CONSTIPATION; Start at 03:30 Carisoprodol (Soma) 350 mg Q8 PRN PO MUSCLE SPASMS; Start 01/12/17 at 03:30 Cinacalcet (Sensipar) 30 mg DAILY PO ; Start 01/12/17 at 09:00 Insulin Detemir (Levemir) 30 unit QHS@20 SC Last administered on 01/14/17 20:59 ; Admin Dose 30 UNIT; Start 01/12/17 at 20:00 Montelukast Sodium (Singulair) 10 mg QPM PO Last administered on 01/14/17 20:56 ; Admin Dose 10 MG; Start 01/12/17 at 21:00 Sucralfate (Carafate) 1 gm QID PO Last administered on 01/14/17 20:56; Admin Dose 1 GM; Start 01/12/17 at 09:00 Salmeterol Xinafoate/ Fluticasone (Advair 250/50 Diskus) 1 inh BID INH Last administered on 01/15/17 09:58; Admin Dose 1 INH; Start 01/12/17 at 11:00 Miscellaneous Information 1 ea NOTE XX ; Start 01/12/17 at 04:00 Glucose (Glutose) 15 gm Q15M PRN PO DECREASED GLUCOSE; Start 01/12/17 at 04:00 Glucose (Glutose) 22.5 gm Q15M PRN PO DECREASED GLUCOSE; Start 01/12/17 at 04: 00 Dextrose (D50w Syringe) 25 ml Q15M PRN IV DECREASED GLUCOSE; Start 01/12/17 at 04:00 Dextrose (D50w Syringe) 50 ml Q15M PRN IV DECREASED GLUCOSE; Start 01/12/17 at 04:00 Glucagon (Glucagen) 1 mg Q15M PRN IM DECREASED GLUCOSE; Start 01/12/17 at 04:00 Glucose (Glutose) 15 gm Q15M PRN BUCCAL DECREASED GLUCOSE; Start 01/12/17 at 04 :00 Miscellaneous Information This patient sexton... PRN PRN XX WOUND CARE; Start 01/12 at 04:30 Caspofungin/ Sodium Chloride (Cancidas/NS) 250 ml @ 250 mls/hr Q24H IVPB Last administered on 01/14/17 15:39; Admin Dose 250 MLS/HR; Start 01/13/17 at 12:00 Sodium Hypochlorite 1 applic 1 applic BID IRR Last administered on 01/15/17 09: 58; Admin Dose 1 APPLIC; Start 01/12/17 at 13:00 Norepinephrine/ Dextrose (Levophed/D5W) 500 ml @ 0 mls/hr TITRATE IV Last administered on 01/13/17 01:49; Admin Dose 22.5 MLS/HR; Start 01/12/17 at 17:30 IV Flush 10 ml 10 ml PRN PRN IV IV PROTOCOL; Start 01/12/17 at 18:00 Dextrose/Sodium Chloride 1,000 ml @ 100 mls/hr Q10H IV Last administered on 04:29; Admin Dose 100 MLS/HR; Start 01/12/17 at 21:30 Pantoprazole/ Sodium Chloride (Protonix Iv/NS) 100 ml @ 10 mls/hr Q10H IV Last administered on 01/15/17 09:40; Admin Dose 10 MLS/HR; Start 01/13/17 at 02: 00 Insulin Aspart (Novolog Insulin Pen) (Adult SC Insulin - Moder... Q4 SC Last administered on 01/14/17 00:49; Admin Dose 2 UNIT; Start 01/13/17 at 09:00 Lorazepam (Ativan) 1 mg Q3H PRN IV anxiety Last administered on 01/15/17 09:58 ; Admin Dose 1 MG; Start 01/13/17 at 22:30 Amikacin Sulfate (Amikacin Iv Per Pharmacy) AMIKACIN PER PHARMACY NOTE XX ; Start 01/14/17 at 11:30 Atorvastatin Calcium (Lipitor) 20 mg DAILY@21 PO Last administered on 01/14/17 20:56; Admin Dose 20 MG; Start 01/14/17 at 21:00 CHIP HERNANDEZ MD Jan 15, 2017 10:47
--- NOTE | 2017-01-15 11:01 | PN ---
Date/Time of Note Date/Time of Note DATE: 01/15/17 TIME: 10:58 Assessment/Plan VTE Prophylaxis VTE Prophylaxis Intervention: contraindicated Lines/Catheters IV [facility] Type ([facility] PICC Line Central line still needed: Yes Urinary Cath still in place: No Assessment/Plan Chief Complaint/Hosp Course Assessment/Plan: 61-year-old female with a history of hypertension, insulin- dependent diabetes, ESRD on HD, lower extremity thigh gangrenous decubitus ulcer status post debridement, chronic atrial fibrillation, erosive gastritis and esophagitis who was sent from the rehab for weakness and hypotension, with septic shock arrhythmia and signs of upper GI bleeding. 1. Shock, secondary to blood loss and sepsis from pneumonia as well as likely wound infection- off pressor support x 24 hrs now. Continue broad-spectrum antibiotics per ID recommendations. -Follow-up final culture results -ID consult commendations 2. ESRD on HD -Nephrology consult for dialysis - s/p HD yesterday - f/u renal rec's 3. Lower extremity thigh decubitus ulcer -appreciate general surgery consult. Patient had debridement with placement of a wound VAC during previous hospitalizations. -Per general surgery recommendations, continue wound care, for possible debridement when more medically stable. -Follow-up wound care consult 4. Insulin-dependent diabetes A1c is actually 5.6 -Continue insulin with adjustment as needed 5. History of chronic atrial fibrillation- presently on amiodarone drip now, HR nL, seen by CV team yesterday. -continue amiodarone drip for now, s/p digoxin meds, monitor heart rate -Follow-up cardiology recommendations 6. Electrolyte abnormalities -Correct as needed 7. Upper GI bleeding: s/p EGD yesterday with ulcer found. H/H stable. Patient has prior history of this in the past as well. -continue PPI IV BID, f/u GI consult rec's, H/H. Critical care time spent on patient care today equals 40 minutes. Problems: Subjective 24 Hr Interval Summary Free Text/Dictation Still off pressors. Seen by surgery and GI teams this AM. Had EGD yesterday. Exam/Review of Systems Vital Signs Vitals Vital Signs Date Time Temp Pulse Resp B/P Pulse Ox O2 Delivery O2 Flow Rate FiO2 01/15/17 08:52 87 12 100 Nasal Cannula 4.0 01/15/17 05:00 95/53 92/17 04:00 98.0 01/14/17 02:54 27 Intake and Output 01/14/17 01/14/17 01/15/17 15:00 23:00 07:00 Intake Total 891.0 ml 1650 ml 1070 ml Output Total 0 ml 3300 ml Balance 891.0 ml 1650 ml -2230 ml Exam Head: atraumatic, normocephalic, NG tube in place Eyes: nl lids, nl sclera ENMT: No nl lips & teeth (missing teeth) Neck: non-tender, supple Respiratory: normal air movement Cardiovascular: regular rate and rhythm Gastrointestinal: non-tender, other (obese), soft Extremities: No edema, No normal pulses Neurological: nl speech, nl strength Skin: other (wounds: Right thigh/trochanter area with areas of necrosis, no drainage; left thigh: wound bed with slough, no drainage) Results Result Diagram: 01/15/17 0430 01/15/17 0430 Results 24 hrs Laboratory Tests Test 01/14/17 13:21 01/14/17 13:40 01/14/17 18:20 01/14/17 18:43 Bedside Glucose 71 77 Hemoglobin 9.4 L 8.1 L Hematocrit 28.0 L 24.7 L Test 01/14/17 20:54 01/15/17 01:04 01/15/17 01:06 01/15/17 04:30 Bedside Glucose 102 106 Hemoglobin 8.3 L 8.6 L Hematocrit 25.2 L 26.7 L White Blood Count 13.9 H Red Blood Count 3.04 L Mean Corpuscular Volume 87.8 Mean Corpuscular Hemoglobin 28.3 L Mean Corpuscular Hemoglobin Concent 32.2 Red Cell Distribution Width 18.8 H Platelet Count 244 # Mean Platelet Volume 9.1 Neutrophils % 70.1 Lymphocytes % 8.7 L Monocytes % 8.6 Eosinophils % 5.0 Basophils % 0.2 Nucleated Red Blood Cells % 0.6 H Neutrophils # (Manual) 9.7 H Lymphocytes # 1.2 Monocytes # 1.2 H Eosinophils # 0.7 H Basophils # 0.0 Nucleated Red Blood Cells # 0.1 H Sodium Level 130 L Potassium Level 3.2 L Chloride Level 101 Carbon Dioxide Level 23 Anion Gap 9 Blood Urea Nitrogen 35 H Creatinine 2.81 H Glucose Level 215 # Calcium Level 8.1 L Test 01/15/17 05:12 01/15/17 05:15 01/15/17 08:37 Bedside Glucose 81 86 Lab Scanned Report BLOOD TRANSFUSION Medications Medications Current Medications Ondansetron HCl (Zofran Inj) 4 mg Q6H PRN IV NAUSEA AND/OR VOMITING; Start at 03:30 Metoclopramide HCl (Reglan) 10 mg Q6H PRN IV NAUSEA AND/OR VOMITING; Start at 03:30 Acetaminophen (Tylenol Liquid) 650 mg Q6H PRN PO PAIN LEVEL 1-3 OR FEVER; Start 01/12/17 at 03:30 Morphine Sulfate (morphine) 2 mg Q4H PRN IV PAIN LEVEL 7-10 Last administered on 01/14/17 21:17; Admin Dose 2 MG; Start 01/12/17 at 03:30 Magnesium Hydroxide (Milk Of Mag) 30 ml DAILY PRN PO CONSTIPATION; Start at 03:30 Carisoprodol (Soma) 350 mg Q8 PRN PO MUSCLE SPASMS; Start 01/12/17 at 03:30 Cinacalcet (Sensipar) 30 mg DAILY PO ; Start 01/12/17 at 09:00 Insulin Detemir (Levemir) 30 unit QHS@20 SC Last administered on 01/14/17 20:59 ; Admin Dose 30 UNIT; Start 01/12/17 at 20:00 Montelukast Sodium (Singulair) 10 mg QPM PO Last administered on 01/14/17 20:56 ; Admin Dose 10 MG; Start 01/12/17 at 21:00 Sucralfate (Carafate) 1 gm QID PO Last administered on 01/14/17 20:56; Admin Dose 1 GM; Start 01/12/17 at 09:00 Salmeterol Xinafoate/ Fluticasone (Advair 250/50 Diskus) 1 inh BID INH Last administered on 01/15/17 09:58; Admin Dose 1 INH; Start 01/12/17 at 11:00 Miscellaneous Information 1 ea NOTE XX ; Start 01/12/17 at 04:00 Glucose (Glutose) 15 gm Q15M PRN PO DECREASED GLUCOSE; Start 01/12/17 at 04:00 Glucose (Glutose) 22.5 gm Q15M PRN PO DECREASED GLUCOSE; Start 01/12/17 at 04: 00 Dextrose (D50w Syringe) 25 ml Q15M PRN IV DECREASED GLUCOSE; Start 01/12/17 at 04:00 Dextrose (D50w Syringe) 50 ml Q15M PRN IV DECREASED GLUCOSE; Start 01/12/17 at 04:00 Glucagon (Glucagen) 1 mg Q15M PRN IM DECREASED GLUCOSE; Start 01/12/17 at 04:00 Glucose (Glutose) 15 gm Q15M PRN BUCCAL DECREASED GLUCOSE; Start 01/12/17 at 04 :00 Miscellaneous Information This patient sexton... PRN PRN XX WOUND CARE; Start 01/12 at 04:30 Caspofungin/ Sodium Chloride (Cancidas/NS) 250 ml @ 250 mls/hr Q24H IVPB Last administered on 01/14/17 15:39; Admin Dose 250 MLS/HR; Start 01/13/17 at 12:00 Sodium Hypochlorite 1 applic 1 applic BID IRR Last administered on 01/15/17 09: 58; Admin Dose 1 APPLIC; Start 01/12/17 at 13:00 Norepinephrine/ Dextrose (Levophed/D5W) 500 ml @ 0 mls/hr TITRATE IV Last administered on 01/13/17 01:49; Admin Dose 22.5 MLS/HR; Start 01/12/17 at 17:30 IV Flush 10 ml 10 ml PRN PRN IV IV PROTOCOL; Start 01/12/17 at 18:00 Dextrose/Sodium Chloride 1,000 ml @ 100 mls/hr Q10H IV Last administered on 04:29; Admin Dose 100 MLS/HR; Start 01/12/17 at 21:30 Pantoprazole/ Sodium Chloride (Protonix Iv/NS) 100 ml @ 10 mls/hr Q10H IV Last administered on 01/15/17 09:40; Admin Dose 10 MLS/HR; Start 01/13/17 at 02: 00 Insulin Aspart (Novolog Insulin Pen) (Adult SC Insulin - Moder... Q4 SC Last administered on 01/14/17 00:49; Admin Dose 2 UNIT; Start 01/13/17 at 09:00 Lorazepam (Ativan) 1 mg Q3H PRN IV anxiety Last administered on 01/15/17 09:58 ; Admin Dose 1 MG; Start 01/13/17 at 22:30 Amikacin Sulfate (Amikacin Iv Per Pharmacy) AMIKACIN PER PHARMACY NOTE XX ; Start 01/14/17 at 11:30 Atorvastatin Calcium (Lipitor) 20 mg DAILY@21 PO Last administered on 01/14/17 20:56; Admin Dose 20 MG; Start 01/14/17 at 21:00 ERICK MATOS Jan 15, 2017 11:01
--- NOTE | 2017-01-15 11:07 | PN ---
Date/Time of Note Date/Time of Note DATE: 01/15/17 TIME: 10:58 Assessment/Plan Lines/Catheters IV Catheter Type (from [facility]): PICC Line Whitaker in Place (from [facility]): No Assessment/Plan Chief Complaint/Hosp Course 1. Bilateral upper thighs and right flank wounds: 2/2 pressure from immobility; atherosclerosis but not flow limiting (previous records); left thigh s/p wound vac; right thigh s/p debridement -debridement when patient medically stable -local wound care with dakin's twice daily -offloading and turning frequently -specialty mattress -abx per sensitivity- sensitivities pending 2.Septic shock: multifactorial: 2/2 #1 + anemia: off pressors, s/p prbc tx; improving -supportive -as above 3. Normocytic hypochromic anemia: hx of gi bleed esophagitis, gastritis; s/p prbc transfusion; S/p egd: gastric ulcers -monitor and transfuse prn -ppi -per gi 4. Leukocytosis: improving -as above 5. Hyponatremia: Improved -judicious fluids 6. ESRD with HD -per nephro 7. Hypoalbuminemia: likely 2/2 malnutrition + inflammation -supportive -optimize nutrition 8. Coagulopathy: on Eliquis outpatient -correct and further workup per medical team 9. Venous stasis dermatitis 10. Diabetes -blood sugar optimization 11. Atrial fibrillation: controlled rate; off amio -per cardiology 12. History of falls -PT as patient condition permits -fall precautions 13. Morbidly Obese -diet and physical modification 14. CHF: -diuresis and HD Thank you. Patient seen and examined in collaboration with Dr. Kenney Forrester. Problems: Subjective 24 Hr Interval Summary Sleepy but arousable. Intermittently yelling. Improved drainage from wounds but continues to be malodorous. Off pressors, in controlled afib. Leukocytosis improved. No fevers, chills, sob, congested cough, n/v/d/dysuria, hematemesis. H /H stable. No overt bleed noted. Protonix drip ongoing. Exam/Review of Systems Vital Signs Vitals Vital Signs Date Time Temp Pulse Resp B/P Pulse Ox O2 Delivery O2 Flow Rate FiO2 01/15/17 08:52 87 12 100 Nasal Cannula 4.0 01/15/17 05:00 95/53 01/15/17 04:00 98.0 01/14/17 02:54 27 Intake and Output 01/14/17 01/14/17 01/15/17 15:00 23:00 07:00 Intake Total 891.0 ml 1650 ml 1070 ml Output Total 0 ml 3300 ml Balance 891.0 ml 1650 ml -2230 ml Exam Free Text/Dictation Constitutional: somnolent Psych: anxiety, No nl mood/affect Head: atraumatic, normocephalic Eyes: nl lids, nl sclera ENMT: No nl lips & teeth (missing teeth) Neck: non-tender, supple Respiratory: diminished Cardiovascular: irregular rate and rhythm; afib controlled Gastrointestinal: non-tender, other (obese), soft Musculoskeletal: No nl gait and stance Extremities: No edema, No normal pulses Neurological: nl speech, nl strength Skin: other (wounds: Right thigh/trochanter area with areas of necrotic tissue and slough, improved drainage & periwound erythema, malodorous; left thigh: wound bed with slough, min drainage) Results Result Diagram: 01/15/1742901/15/17429 JUSTIN FOX NP Jan 15, 2017 11:07
[2017-01-15] MEDS: AMIKACIN 350 MG in DEXTROSE 5% 100 ML IVPB SCH (12:00)
[2017-01-15 12:17] LABS: HEMATOCRIT 25.1 % (37.0-47.0); HEMOGLOBIN 8.1 g/dl (12.0-16.0)
[2017-01-15] MEDS: CASPOFUNGIN 50 MG in SOD CHLORIDE 0.9% 250 ML IVPB SCH (13:11)
--- NOTE | 2017-01-15 15:33 | CONS ---
Date/Time of Note Date/Time of Note DATE: 01/15/17 TIME: 15:16 Assessment/Plan Assessment/Plan Chief Complaint/Hosp Course ID PROGRESS NOTE CURRENT ABX=>Vanco IV #3 + Amikacin#2 + Cancidas s/p Azactam 01/12, s/p Merrem 24H INTERVAL SUMMARY * Stable in ICU on supplemental O2 via NC, obese F, VSS, no fevers, NAD * No new issues, no c/o offered * MICRO: 01/13 BCx (-) / bottles * 01/13 WOUND CULTURE Preliminary Organism 1 PROVIDENCIA STUARTII QUANTITY 4+ Organism 2 PSEUDOMONAS AERUGINOSA QUANTITY 4+ Organism 3 VANCO RESISTANT ENTEROCOCCUS QUANTITY ISOLATED FROM BROTH ONLY . MULTI DRUG RESISTANT ORGANISM Organism 4 GRAM NEGATIVE WILLIAM QUANTITY 1+ WOUND CULTURE Preliminary (continued) P STUARTII P.AERUG VRE M.I.C. RX M.I.C. RX M.I.C. RX --------- --- --------- --- --------- --- AMIKACIN 16 S <=2 S AMPICILLIN <=2 S AZTREONAM I CEFEPIME <=1 S 2 S CEFOTAXIME I CEFTAZIDIME 2 S CIPROFLOXACIN >=4 R <=0.25 S GENTAMICIN >=16 R 2 S GENTAMICIN 120 R IMIPENEM 1 S >=16 R LEVOFLOXACIN >=8 R 1 S LINEZOLID 2 S PENICILLIN-G 2 S QUINUPRISTIN/DALFOPRISTIN 4 R STREPTOMYCIN 300 S VANCOMYCIN >=32 R TOBRAMYCIN >=16 R <=1 S TRIMETHOPRIM/SULFAMETHOXAZOLE >=320 R PIPERACILLIN/TAZOBACTAM 8 S 8 S PHYSICAL EXAMINATION: GENERAL: VSS, NAD, obese F HEENT: Unremarkable NECK: Supple CHEST: Rise symmetrical bilaterally, without dyspnea on observation CV: RRR ABDOMEN: Soft, flat EXTREMITIES: Warm, Bilateral edema left upper thigh lateral part with necrotic wound. ID ASSESSMENT: 61 yo obese F admit with: 1. Sepsis status post shock, multifactorial, possibly also secondary to hypovolemic shock w/severe anemia on admission * Leukocytosis on admission WBC 25 2. Infected left thigh wound, status post multiple debridement in the past * 01/13/17 Wound Cx WOUND CULTURE Preliminary Organism 1 PROVIDENCIA STUARTII QUANTITY 4+ Organism 2 PSEUDOMONAS AERUGINOSA QUANTITY 4+ Organism 3 VANCO RESISTANT ENTEROCOCCUS QUANTITY ISOLATED FROM BROTH ONLY . MULTI DRUG RESISTANT ORGANISM Organism 4 GRAM NEGATIVE WILLIAM QUANTITY 1+ 3. Acute anemia with gastrointestinal bleeding, H and H stable * status post blood transfusion. 4. Atrial fibrillation. 5. End-stage renal disease. 6. COPD (-) MRSA Nares INVASIVES: PICC ABX ALLERGY: PCN, CIPRO CURRENT ABX=>Vanco IV #3 + Amikacin#2 + Cancidas s/p Azactam 01/12, s/p Merrem ID PLAN 1. Change Vanco IV to Zyvox to cover VRE, continue Amikacin 2. F/U final micro still pending . . Problems: Consultation Date/Type/Reason Admit Date/Time Jan 12, 2017 at 04:33 Initial Consult Date 01/14/17 Type of Consultation: ID Referring Provider: ERICK MATOS Exam/Review of Systems Vital Signs Vitals Vital Signs Date Time Temp Pulse Resp B/P Pulse Ox O2 Delivery O2 Flow Rate FiO2 01/15/17 14:00 63 15 76/54 100 01/15/17 12:00 97.3 01/15/17 08:52 Nasal Cannula 4.0 01/14/17 02:54 27 Intake and Output 01/14/17 01/14/17 01/15/17 15:00 23:00 07:00 Intake Total 891.0 ml 1650 ml 1070 ml Output Total 0 ml 3300 ml Balance 891.0 ml 1650 ml -2230 ml Results Result Diagram: 01/15/17 1210 01/15/17 0430 Results 24 hrs Laboratory Tests Test 01/14/17 18:20 01/14/17 18:43 01/14/17 20:54 01/15/17 01:04 Bedside Glucose 77 102 106 Hemoglobin 8.1 L Hematocrit 24.7 L Test 01/15/17 01:06 01/15/17 04:30 01/15/17 05:12 01/15/17 05:15 Hemoglobin 8.3 L 8.6 L Hematocrit 25.2 L 26.7 L White Blood Count 13.9 H Red Blood Count 3.04 L Mean Corpuscular Volume 87.8 Mean Corpuscular Hemoglobin 28.3 L Mean Corpuscular Hemoglobin Concent 32.2 Red Cell Distribution Width 18.8 H Platelet Count 244 # Mean Platelet Volume 9.1 Neutrophils % 70.1 Lymphocytes % 8.7 L Monocytes % 8.6 Eosinophils % 5.0 Basophils % 0.2 Nucleated Red Blood Cells % 0.6 H Neutrophils # (Manual) 9.7 H Lymphocytes # 1.2 Monocytes # 1.2 H Eosinophils # 0.7 H Basophils # 0.0 Nucleated Red Blood Cells # 0.1 H Sodium Level 130 L Potassium Level 3.2 L Chloride Level 101 Carbon Dioxide Level 23 Anion Gap 9 Blood Urea Nitrogen 35 H Creatinine 2.81 H Glucose Level 215 # Calcium Level 8.1 L Bedside Glucose 81 Lab Scanned Report BLOOD TRANSFUSION Test 01/15/17 08:37 01/15/17 12:10 01/15/17 13:15 Bedside Glucose 86 72 Hemoglobin 8.1 L Hematocrit 25.1 L Medications Medications Current Medications Ondansetron HCl (Zofran Inj) 4 mg Q6H PRN IV NAUSEA AND/OR VOMITING; Start at 03:30 Metoclopramide HCl (Reglan) 10 mg Q6H PRN IV NAUSEA AND/OR VOMITING; Start at 03:30 Acetaminophen (Tylenol Liquid) 650 mg Q6H PRN PO PAIN LEVEL 1-3 OR FEVER; Start 01/12/17 at 03:30 Morphine Sulfate (morphine) 2 mg Q4H PRN IV PAIN LEVEL 7-10 Last administered on 01/14/17t 21:17; Admin Dose 2 MG; Start 01/12/17 at 03:30 Magnesium Hydroxide (Milk Of Mag) 30 ml DAILY PRN PO CONSTIPATION; Start at 03:30 Carisoprodol (Soma) 350 mg Q8 PRN PO MUSCLE SPASMS; Start 01/12/17 at 03:30 Cinacalcet (Sensipar) 30 mg DAILY PO ; Start 01/12/17 at 09:00 Insulin Detemir (Levemir) 30 unit QHS@20 SC Last administered on 01/14/17 20:59 ; Admin Dose 30 UNIT; Start 01/12/17 at 20:00 Montelukast Sodium (Singulair) 10 mg QPM PO Last administered on 01/14/17 20:56 ; Admin Dose 10 MG; Start 01/12/17 at 21:00 Sucralfate (Carafate) 1 gm QID PO Last administered on 01/14/17 20:56; Admin Dose 1 GM; Start 01/12/17 at 09:00 Salmeterol Xinafoate/ Fluticasone (Advair 250/50 Diskus) 1 inh BID INH Last administered on 01/15/17 09:58; Admin Dose 1 INH; Start 01/12/17 at 11:00 Miscellaneous Information 1 ea NOTE XX ; Start 01/12/17 at 04:00 Glucose (Glutose) 15 gm Q15M PRN PO DECREASED GLUCOSE; Start 01/12/17 at 04:00 Glucose (Glutose) 22.5 gm Q15M PRN PO DECREASED GLUCOSE; Start 01/12/17 at 04: 00 Dextrose (D50w Syringe) 25 ml Q15M PRN IV DECREASED GLUCOSE; Start 01/12/17 at 04:00 Dextrose (D50w Syringe) 50 ml Q15M PRN IV DECREASED GLUCOSE; Start 01/12/17 at 04:00 Glucagon (Glucagen) 1 mg Q15M PRN IM DECREASED GLUCOSE; Start 01/12/17 at 04:00 Glucose (Glutose) 15 gm Q15M PRN BUCCAL DECREASED GLUCOSE; Start 01/12/17 at 04 :00 Miscellaneous Information This patient sexton... PRN PRN XX WOUND CARE; Start 01/12 at 04:30 Caspofungin/ Sodium Chloride (Cancidas/NS) 250 ml @ 250 mls/hr Q24H IVPB Last administered on 01/15/17 13:11; Admin Dose 250 MLS/HR; Start 01/13/17 at 12:00 Sodium Hypochlorite 1 applic 1 applic BID IRR Last administered on 01/15/17 09: 58; Admin Dose 1 APPLIC; Start 01/12/17 at 13:00 Norepinephrine/ Dextrose (Levophed/D5W) 500 ml @ 0 mls/hr TITRATE IV Last administered on 01/13/17 01:49; Admin Dose 22.5 MLS/HR; Start 01/12/17 at 17:30 IV Flush 10 ml 10 ml PRN PRN IV IV PROTOCOL; Start 01/12/17 at 18:00 Dextrose/Sodium Chloride 1,000 ml @ 100 mls/hr Q10H IV Last administered on 04:29; Admin Dose 100 MLS/HR; Start 01/12/17 at 21:30 Pantoprazole/ Sodium Chloride (Protonix Iv/NS) 100 ml @ 10 mls/hr Q10H IV Last administered on 01/15/17 09:40; Admin Dose 10 MLS/HR; Start 01/13/17 at 02: 00 Insulin Aspart (Novolog Insulin Pen) (Adult SC Insulin - Moder... Q4 SC Last administered on 01/14/17 00:49; Admin Dose 2 UNIT; Start 01/13/17 at 09:00 Lorazepam (Ativan) 1 mg Q3H PRN IV anxiety Last administered on 01/15/17 09:58 ; Admin Dose 1 MG; Start 01/13/17 at 22:30 Amikacin Sulfate (Amikacin Iv Per Pharmacy) AMIKACIN PER PHARMACY NOTE XX ; Start 01/14/17 at 11:30 Atorvastatin Calcium (Lipitor) 20 mg DAILY@21 PO Last administered on 01/14/17 20:56; Admin Dose 20 MG; Start 01/14/17 at 21:00 STEFAN COMBS NP Jan 15, 2017 15:28
[2017-01-15] MEDS ORDERED: LINEZOLID 600 MG/D5W (PMX) 300 ML IVPB SCH (16:00)
[2017-01-15] MEDS: LINEZOLID 600 MG/D5W (PMX) 300 ML IVPB SCH (17:31)
[2017-01-15] MEDS: DEXTROSE 50% 50 ML SYRINGE IV PRN (17:37)
--- NOTE | 2017-01-15 17:45 | PN ---
Date/Time of Note Date/Time of Note DATE: 01/15/17 TIME: 16:35 Assessment/Plan VTE Prophylaxis VTE Prophylaxis Intervention: contraindicated VTE Contraindication Reason: bleeding VTE Confirmed-Overlap Tx Rcvd Reason for no Overlap Therapy: Contraindicated Lines/Catheters IV Catheter Type (from Nrsg): PICC Line Central line still needed: Yes Urinary Cath still in place: No Assessment/Plan Chief Complaint/Hosp Course 1. Lethargy 2. Confusion 3. Persistent atrial fibrillation with normal heart rate 4. Persistent hypotension 5. Sepsis 6. End-stage renal disease on dialysis 7. Anemia of chronic kidney disease 8. Hypotension, persistent 9. 3 - 4+ bilateral pitting edema of lower extremities Plan: Continue current treatment. Continue Levophed to blood pressure of at least 80 mmHg Prognosis: Poor Problems: Subjective 24 Hr Interval Summary Free Text/Dictation No changes from baseline Exam/Review of Systems Vital Signs Vitals Vital Signs Date Time Temp Pulse Resp B/P Pulse Ox O2 Delivery O2 Flow Rate FiO2 01/15/17 16:00 75 01/15/17 14:00 15 76/54 100 01/15/17 12:00 97.3 01/15/17 08:52 Nasal Cannula 4.0 01/14/17 02:54 27 Intake and Output 01/14/17 01/14/17 01/15/17 15:00 23:00 07:00 Intake Total 891.0 ml 1650 ml 1070 ml Output Total 0 ml 3300 ml Balance 891.0 ml 1650 ml -2230 ml Exam Constitutional: alert, distress, frail, non-verbal, obese, oriented, other, well developed Psych: confusion Eyes: PERRL, nl sclera, other Neck: supple Respiratory: clear to auscultation, diminished breath sounds Cardiovascular: edema, irregular rhythm Musculoskeletal: muscle weakness Extremities: edema, pitting pedal edema Neurological: DTR's symmetric, confused, lethargic Results Result Diagram: 01/15/17 1210 01/15/17 0430 Results 24 hrs Laboratory Tests Test 01/14/17 18:20 01/14/17 18:43 01/14/17 20:54 01/15/17 01:04 Bedside Glucose 77 102 106 Hemoglobin 8.1 L Hematocrit 24.7 L Test 01/15/17 01:06 01/15/17 04:30 01/15/17 05:12 01/15/17 05:15 Hemoglobin 8.3 L 8.6 L Hematocrit 25.2 L 26.7 L White Blood Count 13.9 H Red Blood Count 3.04 L Mean Corpuscular Volume 87.8 Mean Corpuscular Hemoglobin 28.3 L Mean Corpuscular Hemoglobin Concent 32.2 Red Cell Distribution Width 18.8 H Platelet Count 244 # Mean Platelet Volume 9.1 Neutrophils % 70.1 Lymphocytes % 8.7 L Monocytes % 8.6 Eosinophils % 5.0 Basophils % 0.2 Nucleated Red Blood Cells % 0.6 H Neutrophils # (Manual) 9.7 H Lymphocytes # 1.2 Monocytes # 1.2 H Eosinophils # 0.7 H Basophils # 0.0 Nucleated Red Blood Cells # 0.1 H Sodium Level 130 L Potassium Level 3.2 L Chloride Level 101 Carbon Dioxide Level 23 Anion Gap 9 Blood Urea Nitrogen 35 H Creatinine 2.81 H Glucose Level 215 # Calcium Level 8.1 L Bedside Glucose 81 Lab Scanned Report BLOOD TRANSFUSION Test 01/15/17 08:37 01/15/17 12:10 01/15/17 13:15 Bedside Glucose 86 72 Hemoglobin 8.1 L Hematocrit 25.1 L Medications Medications Current Medications Ondansetron HCl (Zofran Inj) 4 mg Q6H PRN IV NAUSEA AND/OR VOMITING; Start at 03:30 Metoclopramide HCl (Reglan) 10 mg Q6H PRN IV NAUSEA AND/OR VOMITING; Start at 03:30 Acetaminophen (Tylenol Liquid) 650 mg Q6H PRN PO PAIN LEVEL 1-3 OR FEVER; Start 01/12/17 at 03:30 Morphine Sulfate (morphine) 2 mg Q4H PRN IV PAIN LEVEL 7-10 Last administered on 01/14/17 21:17; Admin Dose 2 MG; Start 01/12/17 at 03:30 Magnesium Hydroxide (Milk Of Mag) 30 ml DAILY PRN PO CONSTIPATION; Start at 03:30 Carisoprodol (Soma) 350 mg Q8 PRN PO MUSCLE SPASMS; Start 01/12/17 at 03:30 Cinacalcet (Sensipar) 30 mg DAILY PO ; Start 01/12/17 at 09:00 Insulin Detemir (Levemir) 30 unit QHS@20 SC Last administered on 01/14/17 20:59 ; Admin Dose 30 UNIT; Start 01/12/17 at 20:00 Montelukast Sodium (Singulair) 10 mg QPM PO Last administered on 01/14/17 20:56 ; Admin Dose 10 MG; Start 01/12/17 at 21:00 Sucralfate (Carafate) 1 gm QID PO Last administered on 01/14/17 20:56; Admin Dose 1 GM; Start 01/12/17 at 09:00 Salmeterol Xinafoate/ Fluticasone (Advair 250/50 Diskus) 1 inh BID INH Last administered on 01/15/17 09:58; Admin Dose 1 INH; Start 01/12/17 at 11:00 Miscellaneous Information 1 ea NOTE XX ; Start 01/12/17 at 04:00 Glucose (Glutose) 15 gm Q15M PRN PO DECREASED GLUCOSE; Start 01/12/17 at 04:00 Glucose (Glutose) 22.5 gm Q15M PRN PO DECREASED GLUCOSE; Start 01/12/17 at 04: 00 Dextrose (D50w Syringe) 25 ml Q15M PRN IV DECREASED GLUCOSE; Start 01/12/17 at 04:00 Dextrose (D50w Syringe) 50 ml Q15M PRN IV DECREASED GLUCOSE; Start 01/12/17 at 04:00 Glucagon (Glucagen) 1 mg Q15M PRN IM DECREASED GLUCOSE; Start 01/12/17 at 04:00 Glucose (Glutose) 15 gm Q15M PRN BUCCAL DECREASED GLUCOSE; Start 01/12/17 at 04 :00 Miscellaneous Information This patient sexton... PRN PRN XX WOUND CARE; Start 01/12 at 04:30 Caspofungin/ Sodium Chloride (Cancidas/NS) 250 ml @ 250 mls/hr Q24H IVPB Last administered on 01/15/17 13:11; Admin Dose 250 MLS/HR; Start 01/13/17 at 12:00 Sodium Hypochlorite 1 applic 1 applic BID IRR Last administered on 01/15/17 09: 58; Admin Dose 1 APPLIC; Start 01/12/17 at 13:00 Norepinephrine/ Dextrose (Levophed/D5W) 500 ml @ 0 mls/hr TITRATE IV Last administered on 01/13/17 01:49; Admin Dose 22.5 MLS/HR; Start 01/12/17 at 17:30 IV Flush 10 ml 10 ml PRN PRN IV IV PROTOCOL; Start 01/12/17 at 18:00 Dextrose/Sodium Chloride 1,000 ml @ 100 mls/hr Q10H IV Last administered on 04:29; Admin Dose 100 MLS/HR; Start 01/12/17 at 21:30 Pantoprazole/ Sodium Chloride (Protonix Iv/NS) 100 ml @ 10 mls/hr Q10H IV Last administered on 01/15/17 09:40; Admin Dose 10 MLS/HR; Start 01/13/17 at 02: 00 Insulin Aspart (Novolog Insulin Pen) (Adult SC Insulin - Moder... Q4 SC Last administered on 01/14/17 00:49; Admin Dose 2 UNIT; Start 01/13/17 at 09:00 Lorazepam (Ativan) 1 mg Q3H PRN IV anxiety Last administered on 01/15/17 09:58 ; Admin Dose 1 MG; Start 01/13/17 at 22:30 Amikacin Sulfate (Amikacin Iv Per Pharmacy) AMIKACIN PER PHARMACY NOTE XX ; Start 01/14/17 at 11:30 Atorvastatin Calcium 20 mg 20 mg DAILY@21 PO Last administered on 01/14/17 20: 56; Admin Dose 20 MG; Start 01/14/17 at 21:00 Linezolid (Zyvox 600mg/D5W (Pmx)) 300 ml @ 300 mls/hr Q12 IVPB ; Start 01/15/17 at 16:00 DRE AGOSTO MD Jan 15, 2017 16:45
[2017-01-15 18:32] LABS: HEMATOCRIT 27.6 % (37.0-47.0)
[2017-01-15] MEDS: MONTELUKAST 10 MG TAB PO SCH (21:00)
[2017-01-15] MEDS: ATORVASTATIN 20 MG TAB PO SCH (21:00)
[2017-01-15] MEDS: INSULIN DETEMIR [LEVEMIR] 3ML CART SC SCH (22:41)
[2017-01-15] MEDS: morphine 2 MG INJ IV PRN (22:52)
[2017-01-16] VITALS (20 sets, daily range): BP systolic 84–116; BP diastolic 37–86; PULSE 82–104; RESP 6–19
[2017-01-16] MEDS: LORAZEPAM 2 MG INJ IV PRN (00:12)
[2017-01-16 00:40] LABS: HEMATOCRIT 28.8 % (37.0-47.0); HEMOGLOBIN 9.5 g/dl (12.0-16.0)
[2017-01-16] MEDS: LINEZOLID 600 MG/D5W (PMX) 300 ML IVPB SCH ×3 (01:00→21:10)
[2017-01-16] MEDS: Insulin NOVOLOG SS MODERATE Algorithm(NPO/TPN/ENTERAL FEEDS) SC SCH ×6 (01:00→20:47)
[2017-01-16] MEDS: PANTOPRAZOLE IV 80 MG in SOD CHLORIDE 0.9% 100 ML IV SCH (05:00)
[2017-01-16 05:37] LABS: ABNORMAL IP MESSAGE 1; BASOPHILS % 0.3 % (0.0-2.0); EOSINOPHILS # 0.6 10^3/ul (0.0-0.5); EOSINOPHILS % 3.6 % (0.0-7.0); HEMATOCRIT 28.2 % (37.0-47.0); HEMOGLOBIN 8.9 g/dl (12.0-16.0); LYMPHOCYTES # 1.1 10^3/ul (0.8-2.9); LYMPHOCYTES % 7.1 % (15.0-51.0); MEAN CORPUSCULAR HEMOGLOBIN 27.7 pg (29.0-33.0); MEAN CORPUSCULAR HGB CONC 31.6 g/dl (32.0-37.0); MEAN CORPUSCULAR VOLUME 87.9 fl (82.0-101.0); MEAN PLATELET VOLUME 9.2 fl (7.4-10.4); MONOCYTE # 1.2 10^3/ul (0.3-0.9); MONOCYTES % 8.1 % (0.0-11.0); NEUTROPHILS % 74.7 % (39.0-77.0); NUCLEATED RED BLOOD CELLS # 0.1 10^3/ul (0.0-0.0); NUCLEATED RED BLOOD CELLS% 0.3 /100WBC (0.0-0.0); PLATELET COUNT 258 10^3/UL (140-415); RED BLOOD COUNT 3.21 10^6/ul (4.20-5.40); RED CELL DISTRIBUTION WIDTH 19.6 % (11.5-14.5); WHITE BLOOD COUNT 15.1 10^3/ul (4.8-10.8)
[2017-01-16 05:55] LABS: POSITIVE DIFF @See below
[2017-01-16 05:59] LABS: CALCIUM 8.2 mg/dl (8.4-10.2); CREATININE 2.29 mg/dl (0.44-1.00); POTASSIUM 3.5 mmol/L (3.5-5.1)
[2017-01-16 06:21] LABS: INR 1.26; PROTIME 15.9 Sec (12.2-14.2); PT RATIO 1.2
[2017-01-16] MEDS: SALMETEROL/FLUTICASONE 250/50 INHA INH SCH ×2 (09:00→20:42)
[2017-01-16] MEDS: SODIUM HYPOCHLORITE 0.125% 473 ML BTL IRR SCH ×2 (09:00→22:49)
--- NOTE | 2017-01-16 10:07 | PN ---
Date/Time of Note Date/Time of Note DATE: 01/16/17 TIME: 09:59 Assessment/Plan VTE Prophylaxis VTE Prophylaxis Intervention: contraindicated Lines/Catheters IV Catheter Type (from [facility]): PICC Line Central line still needed: Yes Urinary Cath still in place: No Assessment/Plan Chief Complaint/Hosp Course Assessment/Plan: 61-year-old female with a history of hypertension, insulin- dependent diabetes, ESRD on HD, lower extremity thigh gangrenous decubitus ulcer status post debridement, chronic atrial fibrillation, erosive gastritis and esophagitis who was sent from the rehab for weakness and hypotension, with septic shock arrhythmia and signs of upper GI bleeding. 1. Shock- secondary to blood loss and sepsis from pneumonia as well as likely from wound infection- off pressor support x 48 hrs now. Continue broad-spectrum antibiotics per ID recommendations. -Follow-up final culture results -ID consult commendations 2. ESRD on HD -Nephrology consult for dialysis - s/p HD yesterday - f/u renal rec's 3. Lower extremity thigh decubitus ulcer -appreciate general surgery consult. Patient had debridement with placement of a wound VAC during previous hospitalizations. Right thigh wound cx = + VRE, Pseudomonas, Providencia bugs. -Per general surgery recommendations, continue wound care, abx - ptfor possible debridement when more medically stable. -Follow-up wound care consult rec's 4. Insulin-dependent diabetes A1c is actually 5.6 -Continue insulin with adjustment as needed 5. History of chronic atrial fibrillation- HR nL rate, seen by CV team 2 days ago -continue amiodarone, s/p digoxin meds, monitor heart rate -Follow-up cardiology recommendations 6. Electrolyte abnormalities -Correct as needed 7. Upper GI bleeding: s/p EGD 2 days ago with gastropathy and gastric ulcers found. H/H stable. Patient has prior history of this in the past as well. -continue PPI IV BID, f/u GI consult rec's, monitor H/H, Carafate - will start CLD today Critical care time spent on patient care today equals 45 minutes. Problems: Subjective 24 Hr Interval Summary Free Text/Dictation Pt had HD yesterday, with slightly low bp after this, but bp stable now. Occasionally yelling out, confused, seen by GI and surgery team yesterday. On PPI IV drip and D5 IVF's. Exam/Review of Systems Vital Signs Vitals Vital Signs Date Time Temp Pulse Resp B/P Pulse Ox O2 Delivery O2 Flow Rate FiO2 01/16/17 05:00 85 8 93/64 99 01/16/17 04:30 Nasal Cannula 2.0 01/16/17 04:00 96.9 01/14/17 02:54 27 Intake and Output 01/15/17 01/15/17 01/16/17 15:00 23:00 07:00 Intake Total 671.4 ml 1228 ml 1072 ml Output Total 0 ml Balance 671.4 ml 1228 ml 1072 ml Exam Head: atraumatic, normocephalic, NG tube in place, yelling out occasionally Eyes: nl lids, nl sclera ENMT: No nl lips & teeth (missing teeth) Neck: non-tender, supple Respiratory: normal air movement Cardiovascular: regular rate and rhythm Gastrointestinal: non-tender, other (obese), soft Extremities: No edema, No normal pulses Neurological: nl speech, nl strength Skin: other (wounds: Right thigh/trochanter area with areas of necrosis, no drainage; left thigh: wound bed with slough, no drainage) Results Result Diagram: 01/16/17 0455 01/16/17 0455 Results 24 hrs Laboratory Tests Test 01/15/17 12:10 01/15/17 13:15 01/15/17 17:31 01/15/17 17:53 Hemoglobin 8.1 L Hematocrit 25.1 L Bedside Glucose 72 55 L 110 Test 01/15/17 18:17 01/15/17 18:18 01/15/17 21:55 01/16/17 00:34 Bedside Glucose 154 93 Hemoglobin 9.0 L 9.5 L Hematocrit 27.6 L 28.8 L Test 01/16/17 01:27 01/16/17 04:55 01/16/17 05:02 01/16/17 09:12 Bedside Glucose 127 166 151 White Blood Count 15.1 H Red Blood Count 3.21 L Hemoglobin 8.9 L Hematocrit 28.2 L Mean Corpuscular Volume 87.9 Mean Corpuscular Hemoglobin 27.7 L Mean Corpuscular Hemoglobin Concent 31.6 L Red Cell Distribution Width 19.6 H Platelet Count 258 Mean Platelet Volume 9.2 Neutrophils % 74.7 Lymphocytes % 7.1 L Monocytes % 8.1 Eosinophils % 3.6 Basophils % 0.3 Nucleated Red Blood Cells % 0.3 H Neutrophils # (Manual) 11.3 H Lymphocytes # 1.1 Monocytes # 1.2 H Eosinophils # 0.6 H Basophils # 0.0 Nucleated Red Blood Cells # 0.1 H Prothrombin Time 15.9 #H Prothrombin Time Ratio 1.2 INR International Normalized Ratio 1.26 Sodium Level 132 L Potassium Level 3.5 Chloride Level 101 Carbon Dioxide Level 25 Anion Gap 10 Blood Urea Nitrogen 29 H Creatinine 2.29 H Glucose Level 145 # Calcium Level 8.2 L Medications Medications Current Medications Ondansetron HCl (Zofran Inj) 4 mg Q6H PRN IV NAUSEA AND/OR VOMITING; Start at 03:30 Metoclopramide HCl (Reglan) 10 mg Q6H PRN IV NAUSEA AND/OR VOMITING; Start at 03:30 Acetaminophen (Tylenol Liquid) 650 mg Q6H PRN PO PAIN LEVEL 1-3 OR FEVER; Start 01/12/17 at 03:30 Morphine Sulfate (morphine) 2 mg Q4H PRN IV PAIN LEVEL 7-10 Last administered on 01/15/17 22:52; Admin Dose 2 MG; Start 01/12/17 at 03:30 Magnesium Hydroxide (Milk Of Mag) 30 ml DAILY PRN PO CONSTIPATION; Start at 03:30 Carisoprodol (Soma) 350 mg Q8 PRN PO MUSCLE SPASMS; Start 01/12/17 at 03:30 Cinacalcet (Sensipar) 30 mg DAILY PO ; Start 01/12/17 at 09:00 Insulin Detemir (Levemir) 30 unit QHS@20 SC Last administered on 01/14/17 20:59 ; Admin Dose 30 UNIT; Start 01/12/17 at 20:00 Montelukast Sodium (Singulair) 10 mg QPM PO Last administered on 01/14/17 20:56 ; Admin Dose 10 MG; Start 01/12/17 at 21:00 Sucralfate (Carafate) 1 gm QID PO Last administered on 01/14/17 20:56; Admin Dose 1 GM; Start 01/12/17 at 09:00 Salmeterol Xinafoate/ Fluticasone (Advair 250/50 Diskus) 1 inh BID INH Last administered on 01/15/17 21:56; Admin Dose 1 INH; Start 01/12/17 at 11:00 Miscellaneous Information 1 ea NOTE XX ; Start 01/12/17 at 04:00 Glucose (Glutose) 15 gm Q15M PRN PO DECREASED GLUCOSE; Start 01/12/17 at 04:00 Glucose (Glutose) 22.5 gm Q15M PRN PO DECREASED GLUCOSE; Start 01/12/17 at 04: 00 Dextrose (D50w Syringe) 25 ml Q15M PRN IV DECREASED GLUCOSE Last administered on 01/15/17 17:37; Admin Dose 25 ML; Start 01/12/17 at 04:00 Dextrose (D50w Syringe) 50 ml Q15M PRN IV DECREASED GLUCOSE; Start 01/12/17 at 04:00 Glucagon (Glucagen) 1 mg Q15M PRN IM DECREASED GLUCOSE; Start 01/12/17 at 04:00 Glucose (Glutose) 15 gm Q15M PRN BUCCAL DECREASED GLUCOSE; Start 01/12/17 at 04 :00 Miscellaneous Information This patient sexton... PRN PRN XX WOUND CARE; Start 01/12 at 04:30 Caspofungin/ Sodium Chloride (Cancidas/NS) 250 ml @ 250 mls/hr Q24H IVPB Last administered on 01/15/17 13:11; Admin Dose 250 MLS/HR; Start 01/13/17 at 12:00 Sodium Hypochlorite 1 applic 1 applic BID IRR Last administered on 01/15/17 21: 57; Admin Dose 1 APPLIC; Start 01/12/17 at 13:00 Norepinephrine/ Dextrose (Levophed/D5W) 500 ml @ 0 mls/hr TITRATE IV Last administered on 01/13/17 01:49; Admin Dose 22.5 MLS/HR; Start 01/12/17 at 17:30 IV Flush 10 ml 10 ml PRN PRN IV IV PROTOCOL; Start 01/12/17 at 18:00 Dextrose/Sodium Chloride 1,000 ml @ 100 mls/hr Q10H IV Last administered on 22:00; Admin Dose 100 MLS/HR; Start 01/12/17 at 21:30 Pantoprazole/ Sodium Chloride (Protonix Iv/NS) 100 ml @ 10 mls/hr Q10H IV Last administered on 01/16/17 05:00; Admin Dose 10 MLS/HR; Start 01/13/17 at 02: 00 Insulin Aspart (Novolog Insulin Pen) (Adult SC Insulin - Moder... Q4 SC Last administered on 01/16/17 09:26; Admin Dose 2 UNIT; Start 01/13/17 at 09:00 Lorazepam (Ativan) 1 mg Q3H PRN IV anxiety Last administered on 01/16/17 00:12 ; Admin Dose 1 MG; Start 01/13/17 at 22:30 Amikacin Sulfate (Amikacin Iv Per Pharmacy) AMIKACIN PER PHARMACY NOTE XX ; Start 01/14/17 at 11:30 Atorvastatin Calcium 20 mg 20 mg DAILY@21 PO Last administered on 01/14/17 20: 56; Admin Dose 20 MG; Start 01/14/17 at 21:00 Linezolid (Zyvox 600mg/D5W (Pmx)) 300 ml @ 300 mls/hr Q12 IVPB Last administered on 01/16/17 09:16; Admin Dose 300 MLS/HR; Start 01/15/17 at 17:00 ERICK MATOS Jan 16, 2017 10:07
[2017-01-16] MEDS: CINACALCET 30 MG TAB PO SCH (10:56)
[2017-01-16] MEDS: SUCRALFATE 1 GM TAB PO SCH ×4 (10:56→20:48)
--- NOTE | 2017-01-16 12:32 | CONS ---
Date/Time of Note Date/Time of Note DATE: 01/16/17 TIME: 12:30 Assessment/Plan Assessment/Plan Chief Complaint/Hosp Course Impression: 1. Anemia: noted to have coffee ground emesis on NG tube - s/p EGD on 01/14/17 that showed severe gastropathy, multiple gastric ulcer, one of the ulcer has overlying clot and NG trauma in the stomach and tip of NG was hitting one of the gastric ulcer, 3 cm hiatal hernia 2. atrial fibrillation: on amiodarone 3. altered mental status 4. elevated INR Recommendations: 1. diet as tolerated 2. change protonix from gtt to bid dosing as h/h stable 3. check INR/PT. Eliquis do not typically cause elevated INR to this level 4. f/u H. pylori serology and treat for eradication if positive. Problems: Consultation Date/Type/Reason Admit Date/Time Jan 12, 2017 at 04:33 Initial Consult Date 01/14/17 Type of Consultation: GI Referring Provider: ERICK MATOS 24 HR Interval Summary Free Text/Dictation no distress, no chest pain, no sob Exam/Review of Systems Vital Signs Vitals Vital Signs Date Time Temp Pulse Resp B/P Pulse Ox O2 Delivery O2 Flow Rate FiO2 01/16/17 10:00 87 8 102/54 Nasal Cannula 01/16/17 08:00 2.0 01/16/17 08:00 97.4 01/16/17 07:00 100 01/14/17 02:54 27 Intake and Output 01/15/17 01/15/17 01/16/17 15:00 23:00 07:00 Intake Total 671.4 ml 1228 ml 1072 ml Output Total 0 ml Balance 671.4 ml 1228 ml 1072 ml Exam Constitutional: alert, obese, well developed Psych: nl mood/affect, no complaints Head: atraumatic, normocephalic Eyes: EOMI, nl conjunctiva, nl lids ENMT: nl external ears & nose, nl lips & teeth, nl nasal mucosa & septum Neck: non-tender, supple Respiratory: clear to auscultation, normal air movement Cardiovascular: nl pulses, regular rate and rhythm Gastrointestinal: bowel sounds, non-tender, soft Results Result Diagram: 01/16/17 0455 01/16/17 0455 Results 24 hrs Laboratory Tests Test 01/15/17 13:15 01/15/17 17:31 01/15/17 17:53 01/15/17 18:17 Bedside Glucose 72 55 L 110 154 Test 01/15/17 18:18 01/15/17 21:55 01/16/17 00:34 01/16/17 01:27 Hemoglobin 9.0 L 9.5 L Hematocrit 27.6 L 28.8 L Bedside Glucose 93 127 Test 01/16/17 04:55 01/16/17 05:02 01/16/17 09:12 01/16/17 12:27 White Blood Count 15.1 H Red Blood Count 3.21 L Hemoglobin 8.9 L Hematocrit 28.2 L Mean Corpuscular Volume 87.9 Mean Corpuscular Hemoglobin 27.7 L Mean Corpuscular Hemoglobin Concent 31.6 L Red Cell Distribution Width 19.6 H Platelet Count 258 Mean Platelet Volume 9.2 Neutrophils % 74.7 Lymphocytes % 7.1 L Monocytes % 8.1 Eosinophils % 3.6 Basophils % 0.3 Nucleated Red Blood Cells % 0.3 H Neutrophils # (Manual) 11.3 H Lymphocytes # 1.1 Monocytes # 1.2 H Eosinophils # 0.6 H Basophils # 0.0 Nucleated Red Blood Cells # 0.1 H Prothrombin Time 15.9 #H Prothrombin Time Ratio 1.2 INR International Normalized Ratio 1.26 Sodium Level 132 L Potassium Level 3.5 Chloride Level 101 Carbon Dioxide Level 25 Anion Gap 10 Blood Urea Nitrogen 29 H Creatinine 2.29 H Glucose Level 145 # Calcium Level 8.2 L Bedside Glucose 166 151 135 Medications Medications Current Medications Ondansetron HCl (Zofran Inj) 4 mg Q6H PRN IV NAUSEA AND/OR VOMITING; Start at 03:30 Metoclopramide HCl (Reglan) 10 mg Q6H PRN IV NAUSEA AND/OR VOMITING; Start at 03:30 Acetaminophen (Tylenol Liquid) 650 mg Q6H PRN PO PAIN LEVEL 1-3 OR FEVER; Start 01/12/17 at 03:30 Morphine Sulfate (morphine) 2 mg Q4H PRN IV PAIN LEVEL 7-10 Last administered on 01/15/17t 22:52; Admin Dose 2 MG; Start 01/12/17 at 03:30 Magnesium Hydroxide (Milk Of Mag) 30 ml DAILY PRN PO CONSTIPATION; Start at 03:30 Carisoprodol (Soma) 350 mg Q8 PRN PO MUSCLE SPASMS; Start 01/12/17 at 03:30 Cinacalcet (Sensipar) 30 mg DAILY PO Last administered on 01/16/17 10:56; Admin Dose 30 MG; Start 01/12/17 at 09:00 Insulin Detemir (Levemir) 30 unit QHS@20 SC Last administered on 01/14/17 20:59 ; Admin Dose 30 UNIT; Start 01/12/17 at 20:00 Montelukast Sodium (Singulair) 10 mg QPM PO Last administered on 01/14/17 20:56 ; Admin Dose 10 MG; Start 01/12/17 at 21:00 Sucralfate (Carafate) 1 gm QID PO Last administered on 01/16/17 10:56; Admin Dose 1 GM; Start 01/12/17 at 09:00 Salmeterol Xinafoate/ Fluticasone (Advair 250/50 Diskus) 1 inh BID INH Last administered on 01/16/17 09:00; Admin Dose 1 INH; Start 01/12/17 at 11:00 Miscellaneous Information 1 ea NOTE XX ; Start 01/12/17 at 04:00 Glucose (Glutose) 15 gm Q15M PRN PO DECREASED GLUCOSE; Start 01/12/17 at 04:00 Glucose (Glutose) 22.5 gm Q15M PRN PO DECREASED GLUCOSE; Start 01/12/17 at 04: 00 Dextrose (D50w Syringe) 25 ml Q15M PRN IV DECREASED GLUCOSE Last administered on 01/15/17 17:37; Admin Dose 25 ML; Start 01/12/17 at 04:00 Dextrose (D50w Syringe) 50 ml Q15M PRN IV DECREASED GLUCOSE; Start 01/12/17 at 04:00 Glucagon (Glucagen) 1 mg Q15M PRN IM DECREASED GLUCOSE; Start 01/12/17 at 04:00 Glucose (Glutose) 15 gm Q15M PRN BUCCAL DECREASED GLUCOSE; Start 01/12/17 at 04 :00 Miscellaneous Information This patient sexton... PRN PRN XX WOUND CARE; Start 01/12 at 04:30 Caspofungin/ Sodium Chloride (Cancidas/NS) 250 ml @ 250 mls/hr Q24H IVPB Last administered on 01/15/17 13:11; Admin Dose 250 MLS/HR; Start 01/13/17 at 12:00 Sodium Hypochlorite 1 applic 1 applic BID IRR Last administered on 01/16/17 09: 00; Admin Dose 1 APPLIC; Start 01/12/17 at 13:00 Norepinephrine/ Dextrose (Levophed/D5W) 500 ml @ 0 mls/hr TITRATE IV Last administered on 01/13/17 01:49; Admin Dose 22.5 MLS/HR; Start 01/12/17 at 17:30 IV Flush 10 ml 10 ml PRN PRN IV IV PROTOCOL; Start 01/12/17 at 18:00 Dextrose/Sodium Chloride 1,000 ml @ 100 mls/hr Q10H IV Last administered on 22:00; Admin Dose 100 MLS/HR; Start 01/12/17 at 21:30 Pantoprazole/ Sodium Chloride (Protonix Iv/NS) 100 ml @ 10 mls/hr Q10H IV Last administered on 01/16/17 05:00; Admin Dose 10 MLS/HR; Start 01/13/17 at 02: 00 Insulin Aspart (Novolog Insulin Pen) (Adult SC Insulin - Moder... Q4 SC Last administered on 01/16/17 09:26; Admin Dose 2 UNIT; Start 01/13/17 at 09:00 Lorazepam (Ativan) 1 mg Q3H PRN IV anxiety Last administered on 01/16/17 00:12 ; Admin Dose 1 MG; Start 01/13/17 at 22:30 Amikacin Sulfate (Amikacin Iv Per Pharmacy) AMIKACIN PER PHARMACY NOTE XX ; Start 01/14/17 at 11:30 Atorvastatin Calcium 20 mg 20 mg DAILY@21 PO Last administered on 01/14/17 20: 56; Admin Dose 20 MG; Start 01/14/17 at 21:00 Linezolid (Zyvox 600mg/D5W (Pmx)) 300 ml @ 300 mls/hr Q12 IVPB Last administered on 01/16/17 09:16; Admin Dose 300 MLS/HR; Start 01/15/17 at 17:00 CHIP HERNANDEZ MD Jan 16, 2017 12:32
[2017-01-16] MEDS: morphine 2 MG INJ IV PRN ×2 (13:46→22:42)
--- NOTE | 2017-01-16 16:28 | CONS ---
Date/Time of Note Date/Time of Note DATE: 01/16/17 TIME: 16:24 Assessment/Plan Assessment/Plan Chief Complaint/Hosp Course ID PROGRESS NOTE CURRENT ABX=>Zyvox #2 + Amikacin#3 + Cancidas s/p Vanco IV #3 s/p Azactam 01/12, s/p Merrem 24H INTERVAL SUMMARY * TNS out of ICU to 5C --supplemental O2 via NC, obese F, VSS, no fevers, NAD * No new issues, no c/o offered * MICRO: 01/13 BCx (-) 4/4 bottles * 01/13 WOUND CULTURE Final Organism 1 PROVIDENCIA STUARTII QUANTITY 4+ Organism 2 PSEUDOMONAS AERUGINOSA QUANTITY 4+ Organism 3 VANCO RESISTANT ENTEROCOCCUS QUANTITY ISOLATED FROM BROTH ONLY . MULTI DRUG RESISTANT ORGANISM Organism 4 K PNEUMO ESBL QUANTITY 1+ WOUND CULTURE Preliminary (continued) P STUARTII P.AERUG VRE M.I.C. RX M.I.C. RX M.I.C. RX --------- --- --------- --- --------- --- AMIKACIN 16 S <=2 S AMPICILLIN <=2 S AZTREONAM I CEFEPIME <=1 S 2 S CEFOTAXIME I CEFTAZIDIME 2 S CIPROFLOXACIN >=4 R <=0.25 S GENTAMICIN >=16 R 2 S GENTAMICIN 120 R IMIPENEM 1 S >=16 R LEVOFLOXACIN >=8 R 1 S LINEZOLID 2 S PENICILLIN-G 2 S QUINUPRISTIN/DALFOPRISTIN 4 R STREPTOMYCIN 300 S VANCOMYCIN >=32 R TOBRAMYCIN >=16 R <=1 S TRIMETHOPRIM/SULFAMETHOXAZOLE >=320 R PIPERACILLIN/TAZOBACTAM 8 S 8 S PHYSICAL EXAMINATION: GENERAL: VSS, NAD, obese F HEENT: Unremarkable NECK: Supple CHEST: Rise symmetrical bilaterally, without dyspnea on observation CV: RRR ABDOMEN: Soft, flat EXTREMITIES: Warm, Bilateral edema left upper thigh lateral part with necrotic wound. ID ASSESSMENT: 61 yo obese F admit with: 1. Sepsis status post shock, multifactorial, possibly also secondary to hypovolemic shock w/severe anemia on admission * Leukocytosis on admission WBC 25 2. Infected left thigh wound, status post multiple debridement in the past * 01/13/17 Wound Cx WOUND CULTURE Preliminary Organism 1 PROVIDENCIA STUARTII QUANTITY 4+ Organism 2 PSEUDOMONAS AERUGINOSA QUANTITY 4+ Organism 3 VANCO RESISTANT ENTEROCOCCUS QUANTITY ISOLATED FROM BROTH ONLY . MULTI DRUG RESISTANT ORGANISM Organism 4 GRAM NEGATIVE WILLIAM QUANTITY 1+ 3. Acute anemia with gastrointestinal bleeding, H and H stable * status post blood transfusion. 4. Atrial fibrillation. 5. End-stage renal disease. 6. COPD (-) MRSA Nares INVASIVES: PICC ABX ALLERGY: PCN, CIPRO CURRENT ABX=> ZYVOX #2 + Amikacin#2 + Cancidas Vanco IV #-> DC s/p Azactam 01/12, s/p Merrem ID PLAN 1. Zyvox to cover VRE, continue Amikacin 2. Local wound care . . Problems: Consultation Date/Type/Reason Admit Date/Time Jan 12, 2017 at 04:33 Initial Consult Date 01/14/17 Type of Consultation: ID Referring Provider: ERICK MATOS Exam/Review of Systems Vital Signs Vitals Vital Signs Date Time Temp Pulse Resp B/P Pulse Ox O2 Delivery O2 Flow Rate FiO2 01/16/17 16:14 97.9 85 19 100/52 96 01/16/17 10:00 Nasal Cannula 01/16/17 08:00 2.0 01/14/17 02:54 27 Intake and Output 01/15/17 01/15/17 01/16/17 15:00 23:00 07:00 Intake Total 671.4 ml 1228 ml 1072 ml Output Total 0 ml Balance 671.4 ml 1228 ml 1072 ml Results Result Diagram: 01/16/17 0455 01/16/17 0455 Results 24 hrs Laboratory Tests Test 01/15/17 17:31 01/15/17 17:53 01/15/17 18:17 01/15/17 18:18 Bedside Glucose 55 L 110 154 Hemoglobin 9.0 L Hematocrit 27.6 L Test 01/15/17 21:55 01/16/17 00:34 01/16/17 01:27 01/16/17 04:55 Bedside Glucose 93 127 Hemoglobin 9.5 L 8.9 L Hematocrit 28.8 L 28.2 L White Blood Count 15.1 H Red Blood Count 3.21 L Mean Corpuscular Volume 87.9 Mean Corpuscular Hemoglobin 27.7 L Mean Corpuscular Hemoglobin Concent 31.6 L Red Cell Distribution Width 19.6 H Platelet Count 258 Mean Platelet Volume 9.2 Neutrophils % 74.7 Lymphocytes % 7.1 L Monocytes % 8.1 Eosinophils % 3.6 Basophils % 0.3 Nucleated Red Blood Cells % 0.3 H Neutrophils # (Manual) 11.3 H Lymphocytes # 1.1 Monocytes # 1.2 H Eosinophils # 0.6 H Basophils # 0.0 Nucleated Red Blood Cells # 0.1 H Prothrombin Time 15.9 #H Prothrombin Time Ratio 1.2 INR International Normalized Ratio 1.26 Sodium Level 132 L Potassium Level 3.5 Chloride Level 101 Carbon Dioxide Level 25 Anion Gap 10 Blood Urea Nitrogen 29 H Creatinine 2.29 H Glucose Level 145 # Calcium Level 8.2 L Test 01/16/17 05:02 01/16/17 09:12 01/16/17 12:27 Bedside Glucose 166 151 135 Medications Medications Current Medications Ondansetron HCl (Zofran Inj) 4 mg Q6H PRN IV NAUSEA AND/OR VOMITING; Start at 03:30 Metoclopramide HCl (Reglan) 10 mg Q6H PRN IV NAUSEA AND/OR VOMITING; Start at 03:30 Acetaminophen (Tylenol Liquid) 650 mg Q6H PRN PO PAIN LEVEL 1-3 OR FEVER; Start 01/12/17 at 03:30 Morphine Sulfate (morphine) 2 mg Q4H PRN IV PAIN LEVEL 7-10 Last administered on 01/16/17t 13:46; Admin Dose 2 MG; Start 01/12/17 at 03:30 Magnesium Hydroxide (Milk Of Mag) 30 ml DAILY PRN PO CONSTIPATION; Start at 03:30 Carisoprodol (Soma) 350 mg Q8 PRN PO MUSCLE SPASMS; Start 01/12/17 at 03:30 Cinacalcet (Sensipar) 30 mg DAILY PO Last administered on 01/16/17 10:56; Admin Dose 30 MG; Start 01/12/17 at 09:00 Insulin Detemir (Levemir) 30 unit QHS@20 SC Last administered on 01/14/17 20:59 ; Admin Dose 30 UNIT; Start 01/12/17 at 20:00 Montelukast Sodium (Singulair) 10 mg QPM PO Last administered on 01/14/17 20:56 ; Admin Dose 10 MG; Start 01/12/17 at 21:00 Sucralfate (Carafate) 1 gm QID PO Last administered on 01/16/17 13:46; Admin Dose 1 GM; Start 01/12/17 at 09:00 Salmeterol Xinafoate/ Fluticasone (Advair 250/50 Diskus) 1 inh BID INH Last administered on 01/16/17 09:00; Admin Dose 1 INH; Start 01/12/17 at 11:00 Miscellaneous Information 1 ea NOTE XX ; Start 01/12/17 at 04:00 Glucose (Glutose) 15 gm Q15M PRN PO DECREASED GLUCOSE; Start 01/12/17 at 04:00 Glucose (Glutose) 22.5 gm Q15M PRN PO DECREASED GLUCOSE; Start 01/12/17 at 04: 00 Dextrose (D50w Syringe) 25 ml Q15M PRN IV DECREASED GLUCOSE Last administered on 01/15/17 17:37; Admin Dose 25 ML; Start 01/12/17 at 04:00 Dextrose (D50w Syringe) 50 ml Q15M PRN IV DECREASED GLUCOSE; Start 01/12/17 at 04:00 Glucagon (Glucagen) 1 mg Q15M PRN IM DECREASED GLUCOSE; Start 01/12/17 at 04:00 Glucose (Glutose) 15 gm Q15M PRN BUCCAL DECREASED GLUCOSE; Start 01/12/17 at 04 :00 Miscellaneous Information This patient sexton... PRN PRN XX WOUND CARE; Start 01/12 at 04:30 Caspofungin/ Sodium Chloride (Cancidas/NS) 250 ml @ 250 mls/hr Q24H IVPB Last administered on 01/15/17 13:11; Admin Dose 250 MLS/HR; Start 01/13/17 at 12:00 Sodium Hypochlorite 1 applic 1 applic BID IRR Last administered on 01/16/17 09: 00; Admin Dose 1 APPLIC; Start 01/12/17 at 13:00 Norepinephrine/ Dextrose (Levophed/D5W) 500 ml @ 0 mls/hr TITRATE IV Last administered on 01/13/17 01:49; Admin Dose 22.5 MLS/HR; Start 01/12/17 at 17:30 IV Flush 10 ml 10 ml PRN PRN IV IV PROTOCOL; Start 01/12/17 at 18:00 Dextrose/Sodium Chloride (D5-1/2ns) 1,000 ml @ 100 mls/hr Q10H IV Last administered on 01/15/17 22:00; Admin Dose 100 MLS/HR; Start 01/12/17 at 21:30 Insulin Aspart (Novolog Insulin Pen) (Adult SC Insulin - Moder... Q4 SC Last administered on 01/16/17 09:26; Admin Dose 2 UNIT; Start 01/13/17 at 09:00 Lorazepam (Ativan) 1 mg Q3H PRN IV anxiety Last administered on 01/16/17 00:12 ; Admin Dose 1 MG; Start 01/13/17 at 22:30 Amikacin Sulfate (Amikacin Iv Per Pharmacy) AMIKACIN PER PHARMACY NOTE XX ; Start 01/14/17 at 11:30 Atorvastatin Calcium 20 mg 20 mg DAILY@21 PO Last administered on 01/14/17 20: 56; Admin Dose 20 MG; Start 01/14/17 at 21:00 Linezolid (Zyvox 600mg/D5W (Pmx)) 300 ml @ 300 mls/hr Q12 IVPB Last administered on 01/16/17 09:16; Admin Dose 300 MLS/HR; Start 01/15/17 at 17:00 Pantoprazole (Protonix Iv) 40 mg BID@06,18 IV ; Start 01/16/17 at 18:00 STEFAN COMBS NP Jan 16, 2017 16:28
[2017-01-16] MEDS: DEXTROSE 5%-0.45% NACL 1,000 ML IV SCH (16:37)
--- NOTE | 2017-01-16 17:06 | PN ---
Date/Time of Note Date/Time of Note DATE: 01/16/17 TIME: 17:04 Assessment/Plan Lines/Catheters IV Catheter Type (from [facility]): PICC Line Whitaker in Place (from [facility]): No Assessment/Plan Chief Complaint/Hosp Course 1. Bilateral upper thighs and right flank wounds: 2/2 pressure from immobility; atherosclerosis but not flow limiting (previous records); left thigh s/p wound vac; right thigh s/p debridement -debridement prn -local wound care with dakin's twice daily -offloading and turning frequently -specialty mattress -abx per sensitivity- sensitivities pending 2.Septic shock: multifactorial: 2/2 #1 + anemia: off pressors, s/p prbc tx; improving -supportive -as above 3. Normocytic hypochromic anemia: hx of gi bleed esophagitis, gastritis; s/p prbc transfusion; S/p egd: gastric ulcers -monitor and transfuse prn -ppi -per gi 4. Leukocytosis: improving -as above 5. Hyponatremia: Improved -judicious fluids 6. ESRD with HD -per nephro 7. Hypoalbuminemia: likely 2/2 malnutrition + inflammation -supportive -optimize nutrition 8. Coagulopathy: on Eliquis outpatient -correct and further workup per medical team 9. Venous stasis dermatitis 10. Diabetes -blood sugar optimization 11. Atrial fibrillation: controlled rate; off amio -per cardiology 12. History of falls -PT as patient condition permits -fall precautions 13. Morbidly Obese -diet and physical modification 14. CHF: -diuresis and HD Thank you, Problems: Subjective 24 Hr Interval Summary Sleepy but arousable. Intermittently yelling. Improved drainage from wounds but continues to be malodorous. Leukocytosis. No fevers, chills, sob, congested cough, n/v/d/dysuria, hematemesis. H/H stable. No overt bleed noted. Exam/Review of Systems Vital Signs Vitals Vital Signs Date Time Temp Pulse Resp B/P Pulse Ox O2 Delivery O2 Flow Rate FiO2 01/16/17 16:14 97.9 85 19 100/52 96 01/16/17 10:00 Nasal Cannula 01/16/17 08:00 2.0 01/14/17 02:54 27 Intake and Output 01/15/17 01/15/17 01/16/17 15:00 23:00 07:00 Intake Total 671.4 ml 1228 ml 1072 ml Output Total 0 ml Balance 671.4 ml 1228 ml 1072 ml Exam Free Text/Dictation Constitutional: somnolent Psych: anxiety, No nl mood/affect Head: atraumatic, normocephalic Eyes: nl lids, nl sclera ENMT: No nl lips & teeth (missing teeth) Neck: non-tender, supple Respiratory: diminished Cardiovascular: irregular rate and rhythm; afib controlled Gastrointestinal: non-tender, other (obese), soft Musculoskeletal: No nl gait and stance Extremities: No edema, No normal pulses Neurological: nl speech, nl strength Skin: other (wounds: Right thigh/trochanter area with areas of necrotic tissue and slough, improved drainage & periwound erythema, malodorous; left thigh: wound bed with slough, min drainage) Results Result Diagram: 01/16/17 0455 01/16/17 0455 HALEY HERNANDEZ MD Jan 16, 2017 17:06
[2017-01-16] MEDS: CASPOFUNGIN 50 MG in SOD CHLORIDE 0.9% 250 ML IVPB SCH (17:18)
[2017-01-16] MEDS: PANTOPRAZOLE 40 MG INJ IV SCH (18:06)
[2017-01-16] MEDS: INSULIN DETEMIR [LEVEMIR] 3ML CART SC SCH (20:45)
[2017-01-16] MEDS: MONTELUKAST 10 MG TAB PO SCH (20:48)
[2017-01-16] MEDS: ATORVASTATIN 20 MG TAB PO SCH (20:48)
[2017-01-17] VITALS (20 sets, daily range): BP systolic 94–140; BP diastolic 53–85; PULSE 72–102; RESP 18–19
[2017-01-17] MEDS: LORAZEPAM 2 MG INJ IV PRN ×3 (00:04→18:58)
[2017-01-17] MEDS: ALBUTEROL/IPRATROPIUM (NEB) 3 ML AMP HHN PRN (00:50)
[2017-01-17] MEDS: Insulin NOVOLOG SS MODERATE Algorithm(NPO/TPN/ENTERAL FEEDS) SC SCH ×2 (01:00→05:00)
[2017-01-17] MEDS: DEXTROSE 5%-0.45% NACL 1,000 ML IV SCH ×2 (01:30→11:30)
[2017-01-17] MEDS: morphine 2 MG INJ IV PRN ×4 (03:40→23:53)
[2017-01-17] MEDS: CARISOPRODOL 350 MG TAB PO PRN (04:47)
[2017-01-17] MEDS: DEXTROSE 50% 50 ML SYRINGE IV PRN (04:57)
[2017-01-17] MEDS: PANTOPRAZOLE 40 MG INJ IV SCH ×2 (06:28→17:15)
[2017-01-17] MEDS: INSULIN ASPART [NOVOLOG] 3 ML PEN SC SCH ×4 (08:00→21:00)
[2017-01-17] MEDS: SALMETEROL/FLUTICASONE 250/50 INHA INH SCH ×2 (08:38→21:21)
[2017-01-17] MEDS: CINACALCET 30 MG TAB PO SCH (08:39)
[2017-01-17] MEDS: LINEZOLID 600 MG/D5W (PMX) 300 ML IVPB SCH ×2 (08:39→21:21)
[2017-01-17] MEDS: SUCRALFATE 1 GM TAB PO SCH ×4 (08:39→21:21)
[2017-01-17] MEDS: SODIUM HYPOCHLORITE 0.125% 473 ML BTL IRR SCH ×2 (08:40→21:00)
[2017-01-17 11:04] LABS: ABNORMAL IP MESSAGE 1; BASOPHILS % 0.3 % (0.0-2.0); EOSINOPHILS # 0.8 10^3/ul (0.0-0.5); EOSINOPHILS % 5.3 % (0.0-7.0); HEMOGLOBIN 9.1 g/dl (12.0-16.0); LYMPHOCYTES # 1.4 10^3/ul (0.8-2.9); LYMPHOCYTES % 9.6 % (15.0-51.0); MEAN CORPUSCULAR HEMOGLOBIN 27.7 pg (29.0-33.0); MEAN CORPUSCULAR HGB CONC 31.4 g/dl (32.0-37.0); MEAN CORPUSCULAR VOLUME 88.4 fl (82.0-101.0); MEAN PLATELET VOLUME 9.2 fl (7.4-10.4); MONOCYTE # 1.4 10^3/ul (0.3-0.9); MONOCYTES % 9.8 % (0.0-11.0); NEUTROPHILS % 68.9 % (39.0-77.0); NUCLEATED RED BLOOD CELLS% 0.3 /100WBC (0.0-0.0); PLATELET COUNT 274 10^3/UL (140-415); RED BLOOD COUNT 3.28 10^6/ul (4.20-5.40); RED CELL DISTRIBUTION WIDTH 19.6 % (11.5-14.5); WHITE BLOOD COUNT 14.8 10^3/ul (4.8-10.8)
[2017-01-17 11:08] LABS: POSITIVE DIFF @See below
[2017-01-17 11:19] LABS: CALCIUM 8.3 mg/dl (8.4-10.2); CREATININE 2.69 mg/dl (0.44-1.00); POTASSIUM 3.5 mmol/L (3.5-5.1)
--- NOTE | 2017-01-17 12:06 | CONS ---
Date/Time of Note Date/Time of Note DATE: 01/17/17 TIME: 12:04 Assessment/Plan Assessment/Plan Chief Complaint/Hosp Course Impression: 1. Anemia: noted to have coffee ground emesis on NG tube. Resolved after EGD. - s/p EGD on 01/14/17 that showed severe gastropathy, multiple gastric ulcer, one of the ulcer has overlying clot and NG trauma in the stomach and tip of NG was hitting one of the gastric ulcer, 3 cm hiatal hernia 2. atrial fibrillation: on amiodarone 3. altered mental status 4. elevated INR Recommendations: 1. diet as tolerated 2. continue protonix bid dosing 3. f/u H. pylori serology and treat for eradication if positive. 4. Dr. Trujillo to resume care of this patient tomorrow Problems: Consultation Date/Type/Reason Admit Date/Time Jan 12, 2017 at 04:33 Initial Consult Date 01/14/17 Type of Consultation: GI Referring Provider: ERICK MATOS 24 HR Interval Summary Free Text/Dictation no n/v, reduced abdominal pain Constitutional: improved Exam/Review of Systems Vital Signs Vitals Vital Signs Date Time Temp Pulse Resp B/P Pulse Ox O2 Delivery O2 Flow Rate FiO2 01/17/17 08:10 72 01/17/17 08:02 98.0 19 94/57 100 01/17/17 00:50 Nasal Cannula 2.0 01/14/17 02:54 27 Intake and Output 01/16/17 01/16/17 01/17/17 15:00 23:00 07:00 Intake Total 580 ml 360 ml 700 ml Balance 580 ml 360 ml 700 ml Exam Head: atraumatic, normocephalic Eyes: nl conjunctiva, nl lids ENMT: nl external ears & nose, nl lips & teeth, nl nasal mucosa & septum Neck: non-tender, supple Respiratory: clear to auscultation, normal air movement Cardiovascular: nl pulses, regular rate and rhythm Gastrointestinal: bowel sounds, non-tender, soft Results Result Diagram: 01/17/17 1030 01/17/17 1036 Results 24 hrs Laboratory Tests Test 01/16/17 12:27 01/16/17 17:16 01/16/17 20:38 01/17/17 00:56 Bedside Glucose 135 167 155 102 Test 01/17/17 04:26 01/17/17 04:53 01/17/17 05:19 01/17/17 05:40 Bedside Glucose 53 L 54 L 121 97 Test 01/17/17 08:36 01/17/17 10:30 01/17/17 10:36 Bedside Glucose 73 White Blood Count 14.8 H Red Blood Count 3.28 L Hemoglobin 9.1 L Hematocrit 29.0 L Mean Corpuscular Volume 88.4 Mean Corpuscular Hemoglobin 27.7 L Mean Corpuscular Hemoglobin Concent 31.4 L Red Cell Distribution Width 19.6 H Platelet Count 274 Mean Platelet Volume 9.2 Neutrophils % 68.9 Lymphocytes % 9.6 L Monocytes % 9.8 Eosinophils % 5.3 Basophils % 0.3 Nucleated Red Blood Cells % 0.3 H Neutrophils # (Manual) 10.2 H Lymphocytes # 1.4 Monocytes # 1.4 H Eosinophils # 0.8 H Basophils # 0.0 Nucleated Red Blood Cells # 0.0 Sodium Level 130 L Potassium Level 3.5 Chloride Level 99 Carbon Dioxide Level 26 Anion Gap 9 Blood Urea Nitrogen 31 H Creatinine 2.69 H Glucose Level 66 #L Calcium Level 8.3 L Medications Medications Current Medications Ondansetron HCl (Zofran Inj) 4 mg Q6H PRN IV NAUSEA AND/OR VOMITING; Start at 03:30 Metoclopramide HCl (Reglan) 10 mg Q6H PRN IV NAUSEA AND/OR VOMITING; Start at 03:30 Acetaminophen (Tylenol Liquid) 650 mg Q6H PRN PO PAIN LEVEL 1-3 OR FEVER; Start 01/12/17 at 03:30 Morphine Sulfate (morphine) 2 mg Q4H PRN IV PAIN LEVEL 7-10 Last administered on 01/17/17 10:44; Admin Dose 2 MG; Start 01/12/17 at 03:30 Magnesium Hydroxide (Milk Of Mag) 30 ml DAILY PRN PO CONSTIPATION; Start at 03:30 Carisoprodol (Soma) 350 mg Q8 PRN PO MUSCLE SPASMS Last administered on 04:47; Admin Dose 350 MG; Start 01/12/17 at 03:30 Cinacalcet (Sensipar) 30 mg DAILY PO Last administered on 01/17/17 08:39; Admin Dose 30 MG; Start 01/12/17 at 09:00 Insulin Detemir (Levemir) 30 unit QHS@20 SC Last administered on 01/16/17 20:45 ; Admin Dose 30 UNIT; Start 01/12/17 at 20:00 Montelukast Sodium (Singulair) 10 mg QPM PO Last administered on 01/16/17 20:48 ; Admin Dose 10 MG; Start 01/12/17 at 21:00 Sucralfate (Carafate) 1 gm QID PO Last administered on 01/17/17 08:39; Admin Dose 1 GM; Start 01/12/17 at 09:00 Salmeterol Xinafoate/ Fluticasone (Advair 250/50 Diskus) 1 inh BID INH Last administered on 01/17/17 08:38; Admin Dose 1 INH; Start 01/12/17 at 11:00 Miscellaneous Information 1 ea NOTE XX ; Start 01/12/17 at 04:00 Glucose (Glutose) 15 gm Q15M PRN PO DECREASED GLUCOSE Last administered on 04:32; Admin Dose 15 GM; Start 01/12/17 at 04:00 Glucose (Glutose) 22.5 gm Q15M PRN PO DECREASED GLUCOSE; Start 01/12/17 at 04: 00 Dextrose (D50w Syringe) 25 ml Q15M PRN IV DECREASED GLUCOSE Last administered on 01/17/17 04:57; Admin Dose 25 ML; Start 01/12/17 at 04:00 Dextrose (D50w Syringe) 50 ml Q15M PRN IV DECREASED GLUCOSE; Start 01/12/17 at 04:00 Glucagon (Glucagen) 1 mg Q15M PRN IM DECREASED GLUCOSE; Start 01/12/17 at 04:00 Glucose (Glutose) 15 gm Q15M PRN BUCCAL DECREASED GLUCOSE; Start 01/12/17 at 04 :00 Miscellaneous Information This patient sexton... PRN PRN XX WOUND CARE; Start 01/12 at 04:30 Caspofungin/ Sodium Chloride (Cancidas/NS) 250 ml @ 250 mls/hr Q24H IVPB Last administered on 01/16/17 17:18; Admin Dose 250 MLS/HR; Start 01/13/17 at 12:00 Sodium Hypochlorite (Dakin'S (/4 Strength)) 1 applic BID IRR Last administered on 01/17/17 08:40; Admin Dose 1 APPLIC; Start 01/12/17 at 13:00 IV Flush 10 ml 10 ml PRN PRN IV IV PROTOCOL; Start 01/12/17 at 18:00 Dextrose/Sodium Chloride (D5-1/2ns) 1,000 ml @ 100 mls/hr Q10H IV Last administered on 01/16/17 16:37; Admin Dose 100 MLS/HR; Start 01/12/17 at 21:30 Lorazepam (Ativan) 1 mg Q3H PRN IV anxiety Last administered on 01/17/17 05:07 ; Admin Dose 1 MG; Start 01/13/17 at 22:30 Amikacin Sulfate (Amikacin Iv Per Pharmacy) AMIKACIN PER PHARMACY NOTE XX ; Start 01/14/17 at 11:30 Atorvastatin Calcium 20 mg 20 mg DAILY@21 PO Last administered on 01/16/17 20: 48; Admin Dose 20 MG; Start 01/14/17 at 21:00 Linezolid (Zyvox 600mg/D5W (Pmx)) 300 ml @ 300 mls/hr Q12 IVPB Last administered on 01/17/17 08:39; Admin Dose 300 MLS/HR; Start 01/15/17 at 17:00 Pantoprazole (Protonix Iv) 40 mg BID@06,18 IV Last administered on 01/17/17 06: 28; Admin Dose 40 MG; Start 01/16/17 at 18:00 Diagnostic Test (Pha) (Accu-Chek) 1 ea 02 XX ; Start 01/18/17 at 02:00 Diagnostic Test (Pha) (Accu-Chek) 1 ea 02 XX ; Start 01/18/17 at 02:00 CHIP HERNANDEZ MD Jan 17, 2017 12:06
[2017-01-17] MEDS: CASPOFUNGIN 50 MG in SOD CHLORIDE 0.9% 250 ML IVPB SCH (14:07)
--- NOTE | 2017-01-17 16:08 | PN ---
Date/Time of Note Date/Time of Note DATE: 01/17/17 TIME: 16:07 Assessment/Plan Lines/Catheters IV Catheter Type (from [facility]): PICC Line Whitaker in Place (from [facility]): No Assessment/Plan Chief Complaint/Hosp Course 1. Bilateral upper thighs and right flank wounds: 2/2 pressure from immobility; atherosclerosis but not flow limiting (previous records); left thigh s/p wound vac; right thigh s/p debridement -debridement prn -local wound care with dakin's twice daily -offloading and turning frequently -specialty mattress -abx per sensitivity- sensitivities pending 2.Septic shock: multifactorial: 2/2 #1 + anemia: off pressors, s/p prbc tx; improving -supportive -as above 3. Normocytic hypochromic anemia: hx of gi bleed esophagitis, gastritis; s/p prbc transfusion; S/p egd: gastric ulcers -monitor and transfuse prn -ppi -per gi 4. Leukocytosis: improving -as above 5. Hyponatremia: Improved -judicious fluids 6. ESRD with HD -per nephro 7. Hypoalbuminemia: likely 2/2 malnutrition + inflammation -supportive -optimize nutrition 8. Coagulopathy: on Eliquis outpatient -correct and further workup per medical team 9. Venous stasis dermatitis 10. Diabetes -blood sugar optimization 11. Atrial fibrillation: controlled rate; off amio -per cardiology 12. History of falls -PT as patient condition permits -fall precautions 13. Morbidly Obese -diet and physical modification 14. CHF: -diuresis and HD Thank you, Problems: Subjective 24 Hr Interval Summary Sleepy but arousable. Intermittently yelling. Improved drainage from wounds but continues to be malodorous. Leukocytosis. No fevers, chills, sob, congested cough, n/v/d/dysuria, hematemesis. H/H stable. No overt bleed noted. Exam/Review of Systems Vital Signs Vitals Vital Signs Date Time Temp Pulse Resp B/P Pulse Ox O2 Delivery O2 Flow Rate FiO2 01/17/17 14:10 76 01/17/17 14:10 20 01/17/17 12:06 98.2 111/65 100 01/17/17 00:50 Nasal Cannula 2.0 01/14/17 02:54 27 Intake and Output 01/16/17 01/16/17 01/17/17 15:00 23:00 07:00 Intake Total 580 ml 360 ml 700 ml Balance 580 ml 360 ml 700 ml Exam Free Text/Dictation Constitutional: somnolent Psych: anxiety, No nl mood/affect Head: atraumatic, normocephalic Eyes: nl lids, nl sclera ENMT: No nl lips & teeth (missing teeth) Neck: non-tender, supple Respiratory: diminished Cardiovascular: irregular rate and rhythm; afib controlled Gastrointestinal: non-tender, other (obese), soft Musculoskeletal: No nl gait and stance Extremities: No edema, No normal pulses Neurological: nl speech, nl strength Skin: other (wounds: Right thigh/trochanter area with areas of necrotic tissue and slough, improved drainage & periwound erythema, malodorous; left thigh: wound bed with slough, min drainage) Results Result Diagram: 01/17/17 1030 01/17/17 1036 HALEY HERNANDEZ MD Jan 17, 2017 16:08
[2017-01-17] MEDS ORDERED: morphine 2 MG INJ IV ONE (17:12)
--- NOTE | 2017-01-17 19:28 | PN ---
Date/Time of Note Date/Time of Note DATE: 01/17/17 TIME: 19:23 Assessment/Plan VTE Prophylaxis VTE Prophylaxis Intervention: SCD's Lines/Catheters IV Catheter Type (from Nrsg): PICC Line Central line still needed: No Urinary Cath still in place: No Assessment/Plan Assessment/Plan 61 yo F with ESRD, DM2, L thigh wound sp debridement, GERD sent from rehab for septic shock from thigh wound? as well as possible UGIB. #sepitic shock: sp pressors cont abx as per ID gen surg following for chronic thigh wound #possible UGIB; sp EGD earlier this admission with ulcer -GI on cs -cont PPI -HPylori testing in process #ESRD: cont HD #DM2: cut lantus dose in half given low BG #h/o AFib: cont amio dispo: likely back to rehab, will talk to consultants in AM Subjective 24 Hr Interval Summary Free Text/Dictation BG low again today. Pt snoring and getting HD at time of my eval this AM Exam/Review of Systems Vital Signs Vitals Vital Signs Date Time Temp Pulse Resp B/P Pulse Ox O2 Delivery O2 Flow Rate FiO2 01/17/17 18:16 2.0 01/17/17 17:09 98.4 86 19 114/53 98 01/17/17 00:50 Nasal Cannula 01/14/17 02:54 27 Intake and Output 01/16/17 01/16/17 01/17/17 15:00 23:00 07:00 Intake Total 580 ml 360 ml 700 ml Balance 580 ml 360 ml 700 ml Exam nad snoring getting HD L lateral thigh wrapped no edema Results Result Diagram: 01/17/17 1030 01/17/17 1036 Results 24 hrs Laboratory Tests Test 01/16/17 20:38 01/17/17 00:56 01/17/17 04:26 01/17/17 04:53 Bedside Glucose 155 102 53 L 54 L Test 01/17/17 05:19 01/17/17 05:40 01/17/17 08:36 01/17/17 10:30 Bedside Glucose 121 97 73 White Blood Count 14.8 H Red Blood Count 3.28 L Hemoglobin 9.1 L Hematocrit 29.0 L Mean Corpuscular Volume 88.4 Mean Corpuscular Hemoglobin 27.7 L Mean Corpuscular Hemoglobin Concent 31.4 L Red Cell Distribution Width 19.6 H Platelet Count 274 Mean Platelet Volume 9.2 Neutrophils % 68.9 Lymphocytes % 9.6 L Monocytes % 9.8 Eosinophils % 5.3 Basophils % 0.3 Nucleated Red Blood Cells % 0.3 H Neutrophils # (Manual) 10.2 H Lymphocytes # 1.4 Monocytes # 1.4 H Eosinophils # 0.8 H Basophils # 0.0 Nucleated Red Blood Cells # 0.0 Test 01/17/17 10:36 01/17/17 12:24 01/17/17 12:41 01/17/17 17:11 Sodium Level 130 L Potassium Level 3.5 Chloride Level 99 Carbon Dioxide Level 26 Anion Gap 9 Blood Urea Nitrogen 31 H Creatinine 2.69 H Glucose Level 66 #L Calcium Level 8.3 L Bedside Glucose 48 *L 133 82 Medications Medications Current Medications Ondansetron HCl (Zofran Inj) 4 mg Q6H PRN IV NAUSEA AND/OR VOMITING; Start at 03:30 Metoclopramide HCl (Reglan) 10 mg Q6H PRN IV NAUSEA AND/OR VOMITING; Start at 03:30 Acetaminophen (Tylenol Liquid) 650 mg Q6H PRN PO PAIN LEVEL 1-3 OR FEVER; Start 01/12/17 at 03:30 Morphine Sulfate (morphine) 2 mg Q4H PRN IV PAIN LEVEL 7-10 Last administered on 01/17/17 16:38; Admin Dose 2 MG; Start 01/12/17 at 03:30 Magnesium Hydroxide (Milk Of Mag) 30 ml DAILY PRN PO CONSTIPATION; Start at 03:30 Carisoprodol (Soma) 350 mg Q8 PRN PO MUSCLE SPASMS Last administered on 04:47; Admin Dose 350 MG; Start 01/12/17 at 03:30 Cinacalcet (Sensipar) 30 mg DAILY PO Last administered on 01/17/17 08:39; Admin Dose 30 MG; Start 01/12/17 at 09:00 Montelukast Sodium (Singulair) 10 mg QPM PO Last administered on 01/16/17 20:48 ; Admin Dose 10 MG; Start 01/12/17 at 21:00 Sucralfate (Carafate) 1 gm QID PO Last administered on 01/17/17 17:15; Admin Dose 1 GM; Start 01/12/17 at 09:00 Salmeterol Xinafoate/ Fluticasone (Advair 250/50 Diskus) 1 inh BID INH Last administered on 01/17/17 08:38; Admin Dose 1 INH; Start 01/12/17 at 11:00 Miscellaneous Information 1 ea NOTE XX ; Start 01/12/17 at 04:00 Glucose (Glutose) 15 gm Q15M PRN PO DECREASED GLUCOSE Last administered on 04:32; Admin Dose 15 GM; Start 01/12/17 at 04:00 Glucose (Glutose) 22.5 gm Q15M PRN PO DECREASED GLUCOSE; Start 01/12/17 at 04: 00 Dextrose (D50w Syringe) 25 ml Q15M PRN IV DECREASED GLUCOSE Last administered on 01/17/17 04:57; Admin Dose 25 ML; Start 01/12/17 at 04:00 Dextrose (D50w Syringe) 50 ml Q15M PRN IV DECREASED GLUCOSE Last administered on 01/17/17 12:29; Admin Dose 50 ML; Start 01/12/17 at 04:00 Glucagon (Glucagen) 1 mg Q15M PRN IM DECREASED GLUCOSE; Start 01/12/17 at 04:00 Glucose (Glutose) 15 gm Q15M PRN BUCCAL DECREASED GLUCOSE; Start 01/12/17 at 04 :00 Miscellaneous Information This patient sexton... PRN PRN XX WOUND CARE; Start 01/12 at 04:30 Caspofungin/ Sodium Chloride (Cancidas/NS) 250 ml @ 250 mls/hr Q24H IVPB Last administered on 01/17/17 14:07; Admin Dose 250 MLS/HR; Start 01/13/17 at 12:00 Sodium Hypochlorite (Dakin'S (1/4 Strength)) 1 applic BID IRR Last administered on 01/17/17 08:40; Admin Dose 1 APPLIC; Start 01/12/17 at 13:00 IV Flush (NS 10 ml) 10 ml PRN PRN IV IV PROTOCOL; Start 01/12/17 at 18:00 Lorazepam (Ativan) 1 mg Q3H PRN IV anxiety Last administered on 01/17/17 18:58 ; Admin Dose 1 MG; Start 01/13/17 at 22:30 Amikacin Sulfate (Amikacin Iv Per Pharmacy) AMIKACIN PER PHARMACY NOTE XX ; Start 01/14/17 at 11:30 Atorvastatin Calcium 20 mg 20 mg DAILY@21 PO Last administered on 01/16/17 20: 48; Admin Dose 20 MG; Start 01/14/17 at 21:00 Linezolid (Zyvox 600mg/D5W (Pmx)) 300 ml @ 300 mls/hr Q12 IVPB Last administered on 01/17/17 08:39; Admin Dose 300 MLS/HR; Start 01/15/17 at 17:00 Pantoprazole (Protonix Iv) 40 mg BID@06,18 IV Last administered on 01/17/17 17: 15; Admin Dose 40 MG; Start 01/16/17 at 18:00 Diagnostic Test (Pha) (Accu-Chek) 1 ea 02 XX ; Start 01/18/17 at 02:00 Diagnostic Test (Pha) (Accu-Chek) 1 ea 02 XX ; Start 01/18/17 at 02:00 Insulin Detemir (Levemir) 15 unit QHS@20 SC ; Start 01/17/17 at 20:00 LUIS E DUFFY MD Jan 17, 2017 19:28
[2017-01-17] MEDS: INSULIN DETEMIR [LEVEMIR] 3ML CART SC SCH (20:00)
--- NOTE | 2017-01-17 20:10 | CONS ---
Date/Time of Note Date/Time of Note DATE: 01/17/17 TIME: 20:07 Assessment/Plan Assessment/Plan Chief Complaint/Hosp Course ID PROGRESS NOTE CURRENT ABX=>Zyvox #3 + Amikacin #4 + Cancidas s/p Vanco IV #3 s/p Azactam 01/12, s/p Merrem 24H INTERVAL SUMMARY * Sleeping -- s/p HD today -- supplemental O2 via NC, obese F, VSS, no fevers, NAD * WBC continues slow downtrend * MICRO: 01/13 BCx (-) 08/17 bottles * 01/13 WOUND CULTURE Final Organism 1 PROVIDENCIA STUARTII QUANTITY 4+ Organism 2 PSEUDOMONAS AERUGINOSA QUANTITY 4+ Organism 3 VANCO RESISTANT ENTEROCOCCUS QUANTITY ISOLATED FROM BROTH ONLY . MULTI DRUG RESISTANT ORGANISM Organism 4 K PNEUMO ESBL QUANTITY 1+ WOUND CULTURE Preliminary (continued) P STUARTII P.AERUG VRE M.I.C. RX M.I.C. RX M.I.C. RX --------- --- --------- --- --------- --- AMIKACIN 16 S <=2 S AMPICILLIN <=2 S AZTREONAM I CEFEPIME <=1 S 2 S CEFOTAXIME I CEFTAZIDIME 2 S CIPROFLOXACIN >=4 R <=0.25 S GENTAMICIN >=16 R 2 S GENTAMICIN 120 R IMIPENEM 1 S >=16 R LEVOFLOXACIN >=8 R 1 S LINEZOLID 2 S PENICILLIN-G 2 S QUINUPRISTIN/DALFOPRISTIN 4 R STREPTOMYCIN 300 S VANCOMYCIN >=32 R TOBRAMYCIN >=16 R <=1 S TRIMETHOPRIM/SULFAMETHOXAZOLE >=320 R PIPERACILLIN/TAZOBACTAM 8 S 8 S PHYSICAL EXAMINATION: GENERAL: VSS, NAD, obese F HEENT: Unremarkable NECK: Supple CHEST: Rise symmetrical bilaterally, without dyspnea on observation CV: RRR ABDOMEN: Soft, flat EXTREMITIES: Warm, Bilateral edema left upper thigh lateral part with necrotic wound. ID ASSESSMENT: 61 yo obese F admit with: 1. Sepsis status post shock, multifactorial, possibly also secondary to hypovolemic shock w/severe anemia on admission * Leukocytosis on admission WBC 25 --> today 14.8 2. Infected left thigh wound, status post multiple debridement in the past * 01/13/17 Wound Cx WOUND CULTURE Final Organism 1 PROVIDENCIA STUARTII Organism 2 PSEUDOMONAS AERUGINOSA Organism 3 VANCO RESISTANT ENTEROCOCCUS Organism 4 K PNEUMO ESBL 3. Acute anemia with gastrointestinal bleeding, H and H stable * status post blood transfusion. 4. Atrial fibrillation. 5. End-stage renal disease. 6. COPD (-) MRSA Nares INVASIVES: PICC ABX ALLERGY: PCN, CIPRO CURRENT ABX=>Zyvox #3 + Amikacin #4 + Cancidas Vanco IV #-> DC s/p Azactam 01/12, s/p Merrem ID PLAN 1. Zyvox to cover VRE, continue Amikacin 2. Local wound care . . Problems: Consultation Date/Type/Reason Admit Date/Time Jan 12, 2017 at 04:33 Initial Consult Date 01/14/17 Type of Consultation: ID Referring Provider: ERICK MATOS Exam/Review of Systems Vital Signs Vitals Vital Signs Date Time Temp Pulse Resp B/P Pulse Ox O2 Delivery O2 Flow Rate FiO2 01/17/17 19:57 97.9 90 19 117/72 99 01/17/17 18:16 2.0 01/17/17 00:50 Nasal Cannula 01/14/17 02:54 27 Intake and Output 01/16/17 01/16/17 01/17/17 15:00 23:00 07:00 Intake Total 580 ml 360 ml 700 ml Balance 580 ml 360 ml 700 ml Results Result Diagram: 01/17/17 1030 01/17/17 1036 Results 24 hrs Laboratory Tests Test 01/16/17 20:38 01/17/17 00:56 01/17/17 04:26 01/17/17 04:53 Bedside Glucose 155 102 53 L 54 L Test 01/17/17 05:19 01/17/17 05:40 01/17/17 08:36 01/17/17 10:30 Bedside Glucose 121 97 73 White Blood Count 14.8 H Red Blood Count 3.28 L Hemoglobin 9.1 L Hematocrit 29.0 L Mean Corpuscular Volume 88.4 Mean Corpuscular Hemoglobin 27.7 L Mean Corpuscular Hemoglobin Concent 31.4 L Red Cell Distribution Width 19.6 H Platelet Count 274 Mean Platelet Volume 9.2 Neutrophils % 68.9 Lymphocytes % 9.6 L Monocytes % 9.8 Eosinophils % 5.3 Basophils % 0.3 Nucleated Red Blood Cells % 0.3 H Neutrophils # (Manual) 10.2 H Lymphocytes # 1.4 Monocytes # 1.4 H Eosinophils # 0.8 H Basophils # 0.0 Nucleated Red Blood Cells # 0.0 Test 01/17/17 10:36 01/17/17 12:24 01/17/17 12:41 01/17/17 17:11 Sodium Level 130 L Potassium Level 3.5 Chloride Level 99 Carbon Dioxide Level 26 Anion Gap 9 Blood Urea Nitrogen 31 H Creatinine 2.69 H Glucose Level 66 #L Calcium Level 8.3 L Bedside Glucose 48 *L 133 82 Medications Medications Current Medications Ondansetron HCl (Zofran Inj) 4 mg Q6H PRN IV NAUSEA AND/OR VOMITING; Start at 03:30 Metoclopramide HCl (Reglan) 10 mg Q6H PRN IV NAUSEA AND/OR VOMITING; Start at 03:30 Acetaminophen (Tylenol Liquid) 650 mg Q6H PRN PO PAIN LEVEL 1-3 OR FEVER; Start 01/12/17 at 03:30 Morphine Sulfate (morphine) 2 mg Q4H PRN IV PAIN LEVEL 7-10 Last administered on 01/17/17 16:38; Admin Dose 2 MG; Start 01/12/17 at 03:30 Magnesium Hydroxide (Milk Of Mag) 30 ml DAILY PRN PO CONSTIPATION; Start at 03:30 Carisoprodol (Soma) 350 mg Q8 PRN PO MUSCLE SPASMS Last administered on 04:47; Admin Dose 350 MG; Start 01/12/17 at 03:30 Cinacalcet (Sensipar) 30 mg DAILY PO Last administered on 01/17/17 08:39; Admin Dose 30 MG; Start 01/12/17 at 09:00 Montelukast Sodium (Singulair) 10 mg QPM PO Last administered on 01/16/17 20:48 ; Admin Dose 10 MG; Start 01/12/17 at 21:00 Sucralfate (Carafate) 1 gm QID PO Last administered on 01/17/17 17:15; Admin Dose 1 GM; Start 01/12/17 at 09:00 Salmeterol Xinafoate/ Fluticasone (Advair 250/50 Diskus) 1 inh BID INH Last administered on 01/17/17 08:38; Admin Dose 1 INH; Start 01/12/17 at 11:00 Miscellaneous Information 1 ea NOTE XX ; Start 01/12/17 at 04:00 Glucose (Glutose) 15 gm Q15M PRN PO DECREASED GLUCOSE Last administered on 04:32; Admin Dose 15 GM; Start 01/12/17 at 04:00 Glucose (Glutose) 22.5 gm Q15M PRN PO DECREASED GLUCOSE; Start 01/12/17 at 04: 00 Dextrose (D50w Syringe) 25 ml Q15M PRN IV DECREASED GLUCOSE Last administered on 01/17/17 04:57; Admin Dose 25 ML; Start 01/12/17 at 04:00 Dextrose (D50w Syringe) 50 ml Q15M PRN IV DECREASED GLUCOSE Last administered on 01/17/17 12:29; Admin Dose 50 ML; Start 01/12/17 at 04:00 Glucagon (Glucagen) 1 mg Q15M PRN IM DECREASED GLUCOSE; Start 01/12/17 at 04:00 Glucose (Glutose) 15 gm Q15M PRN BUCCAL DECREASED GLUCOSE; Start 01/12/17 at 04 :00 Miscellaneous Information This patient sexton... PRN PRN XX WOUND CARE; Start 01/12 at 04:30 Caspofungin/ Sodium Chloride (Cancidas/NS) 250 ml @ 250 mls/hr Q24H IVPB Last administered on 01/17/17 14:07; Admin Dose 250 MLS/HR; Start 01/13/17 at 12:00 Sodium Hypochlorite (Dakin'S (05/19 Strength)) 1 applic BID IRR Last administered on 01/17/17 08:40; Admin Dose 1 APPLIC; Start 01/12/17 at 13:00 IV Flush (NS 10 ml) 10 ml PRN PRN IV IV PROTOCOL; Start 01/12/17 at 18:00 Lorazepam (Ativan) 1 mg Q3H PRN IV anxiety Last administered on 01/17/17 18:58 ; Admin Dose 1 MG; Start 01/13/17 at 22:30 Amikacin Sulfate (Amikacin Iv Per Pharmacy) AMIKACIN PER PHARMACY NOTE XX ; Start 01/14/17 at 11:30 Atorvastatin Calcium 20 mg 20 mg DAILY@21 PO Last administered on 01/16/17 20: 48; Admin Dose 20 MG; Start 01/14/17 at 21:00 Linezolid (Zyvox 600mg/D5W (Pmx)) 300 ml @ 300 mls/hr Q12 IVPB Last administered on 01/17/17 08:39; Admin Dose 300 MLS/HR; Start 01/15/17 at 17:00 Pantoprazole (Protonix Iv) 40 mg BID@06,18 IV Last administered on 01/17/17 17: 15; Admin Dose 40 MG; Start 01/16/17 at 18:00 Diagnostic Test (Pha) (Accu-Chek) 1 ea 02 XX ; Start 01/18/17 at 02:00 Diagnostic Test (Pha) (Accu-Chek) 1 ea 02 XX ; Start 01/18/17 at 02:00 Insulin Detemir (Levemir) 15 unit QHS@20 SC ; Start 01/17/17 at 20:00 STEFAN COMBS NP Jan 17, 2017 20:10
[2017-01-17] MEDS: ATORVASTATIN 20 MG TAB PO SCH (21:21)
[2017-01-17] MEDS: MONTELUKAST 10 MG TAB PO SCH (21:21)
[2017-01-18] VITALS (11 sets, daily range): BP systolic 107–131; BP diastolic 54–65; PULSE 89–110; RESP 18–20
[2017-01-18] MEDS: LORAZEPAM 2 MG INJ IV PRN ×4 (01:09→23:42)
[2017-01-18] MEDS ORDERED: ACCU-CHEK XX SCH (02:00)
[2017-01-18] MEDS: ACCU-CHEK XX SCH (02:00)
[2017-01-18] MEDS: morphine 2 MG INJ IV PRN ×4 (05:07→23:06)
[2017-01-18] MEDS: PANTOPRAZOLE 40 MG INJ IV SCH ×2 (05:28→17:39)
[2017-01-18] MEDS: OXYCODONE/ACETAMINOPHEN (5/325) TAB PO PRN ×2 (06:37→21:24)
[2017-01-18] MEDS: INSULIN ASPART [NOVOLOG] 3 ML PEN SC SCH ×4 (08:00→21:00)
[2017-01-18] MEDS: SUCRALFATE 1 GM TAB PO SCH ×4 (08:39→21:24)
[2017-01-18] MEDS: CINACALCET 30 MG TAB PO SCH (08:39)
[2017-01-18] MEDS: SALMETEROL/FLUTICASONE 250/50 INHA INH SCH ×2 (08:39→21:24)
[2017-01-18] MEDS: LINEZOLID 600 MG/D5W (PMX) 300 ML IVPB SCH ×2 (08:40→21:50)
[2017-01-18] MEDS: SODIUM HYPOCHLORITE 0.125% 473 ML BTL IRR SCH ×2 (08:56→21:25)
[2017-01-18] MEDS: AMIKACIN 350 MG in DEXTROSE 5% 100 ML IVPB SCH (11:28)
[2017-01-18] MEDS: CASPOFUNGIN 50 MG in SOD CHLORIDE 0.9% 250 ML IVPB SCH (13:15)
--- NOTE | 2017-01-18 14:18 | PN ---
Date/Time of Note Date/Time of Note DATE: 01/18/17 TIME: 14:16 Assessment/Plan Lines/Catheters IV Catheter Type (from [facility]): PICC Line Whitaker in Place (from [facility]): No Assessment/Plan Chief Complaint/Hosp Course 1. Bilateral upper thighs and right flank wounds: 2/2 pressure from immobility; atherosclerosis but not flow limiting (previous records); left thigh s/p wound vac; right thigh s/p debridement -debridement prn -local wound care with dakin's twice daily -offloading and turning frequently -specialty mattress -abx per sensitivity- sensitivities pending 2.Septic shock: multifactorial: 2/2 #1 + anemia: off pressors, s/p prbc tx; improving -supportive -as above 3. Normocytic hypochromic anemia: hx of gi bleed esophagitis, gastritis; s/p prbc transfusion; S/p egd: gastric ulcers -monitor and transfuse prn -ppi -per gi 4. Leukocytosis -as above 5. Hyponatremia: Improved -judicious fluids 6. ESRD with HD -per nephro 7. Hypoalbuminemia: likely 2/2 malnutrition + inflammation -supportive -optimize nutrition 8. Coagulopathy: on Eliquis outpatient -correct and further workup per medical team 9. Venous stasis dermatitis 10. Diabetes -blood sugar optimization 11. Atrial fibrillation: controlled rate; off amio -per cardiology 12. History of falls -PT as patient condition permits -fall precautions 13. Morbidly Obese -diet and physical modification 14. CHF: -diuresis and HD Thank you, Problems: Subjective 24 Hr Interval Summary Arousable. Leukocytosis. No fevers, chills, sob, congested cough, n/v/d/ dysuria, hematemesis. H/H stable. No overt bleed noted. Exam/Review of Systems Vital Signs Vitals Vital Signs Date Time Temp Pulse Resp B/P Pulse Ox O2 Delivery O2 Flow Rate FiO2 01/18/17 11:56 98.0 103 18 131/62 97 01/18/17 08:20 Nasal Cannula 2.0 Intake and Output 01/17/17 01/17/17 01/18/17 15:00 23:00 07:00 Intake Total 500 ml 300 ml 400 ml Output Total 3500 ml Balance -3000 ml 300 ml 400 ml Exam Free Text/Dictation Constitutional: somnolent Psych: anxiety, No nl mood/affect Head: atraumatic, normocephalic Eyes: nl lids, nl sclera ENMT: No nl lips & teeth (missing teeth) Neck: non-tender, supple Respiratory: diminished Cardiovascular: irregular rate and rhythm; afib controlled Gastrointestinal: non-tender, other (obese), soft Musculoskeletal: No nl gait and stance Extremities: No edema, No normal pulses Neurological: nl speech, nl strength Skin: other (wounds: Right thigh/trochanter area with areas of necrotic tissue and slough, improved drainage & periwound erythema, malodorous; left thigh: wound bed with slough, min drainage) Results Result Diagram: 01/17/17 1030 01/17/17 1036 HALEY HERNANDEZ MD Jan 18, 2017 14:18
[2017-01-18] MEDS: ALBUTEROL/IPRATROPIUM (NEB) 3 ML AMP HHN PRN (14:58)
--- NOTE | 2017-01-18 17:01 | PN ---
Date/Time of Note Date/Time of Note DATE: 01/18/17 TIME: 17:00 Assessment/Plan VTE Prophylaxis VTE Prophylaxis Intervention: SCD's Lines/Catheters IV Catheter Type (from Nrsg): PICC Line Central line still needed: Yes Urinary Cath still in place: No Assessment/Plan Assessment/Plan 61 yo F with ESRD, DM2, L thigh wound sp debridement, GERD sent from rehab for septic shock from thigh wound? as well as possible UGIB. #sepitic shock: sp pressors cont abx as per ID-->rationale for antifungal agent unclear gen surg following for chronic thigh wound #possible UGIB; sp EGD earlier this admission with ulcer -GI on cs -cont PPI -HPylori testing in process #ESRD: cont HD #DM2: cut lantus dose in half given low BG #h/o AFib: cont amio dispo: back to [facility] in AM. Will talk to ID to determine if antifungal agent in fact indicated. transfer to med surg in interim Subjective 24 Hr Interval Summary Free Text/Dictation sleeping this AM Exam/Review of Systems Vital Signs Vitals Vital Signs Date Time Temp Pulse Resp B/P Pulse Ox O2 Delivery O2 Flow Rate FiO2 01/18/17 15:47 98.0 102 18 111/54 93 01/18/17 15:01 21 01/18/17 08:20 Nasal Cannula 2.0 Intake and Output 01/17/17 01/17/17 01/18/17 15:00 23:00 07:00 Intake Total 500 ml 300 ml 400 ml Output Total 3500 ml Balance -3000 ml 300 ml 400 ml Exam nad irreg irreg lungs clear abd soft thigh dressed Results Result Diagram: 01/17/17 1030 01/17/17 1036 Results 24 hrs Laboratory Tests Test 01/17/17 17:11 01/17/17 21:11 01/18/17 04:23 01/18/17 08:02 Bedside Glucose 82 77 125 136 Test 01/18/17 12:13 Bedside Glucose 169 Medications Medications Current Medications Ondansetron HCl (Zofran Inj) 4 mg Q6H PRN IV NAUSEA AND/OR VOMITING; Start at 03:30 Metoclopramide HCl (Reglan) 10 mg Q6H PRN IV NAUSEA AND/OR VOMITING; Start at 03:30 Acetaminophen (Tylenol Liquid) 650 mg Q6H PRN PO PAIN LEVEL 1-3 OR FEVER; Start 01/12/17 at 03:30 Morphine Sulfate (morphine) 2 mg Q4H PRN IV PAIN LEVEL 7-10 Last administered on 01/18/17 13:26; Admin Dose 2 MG; Start 01/12/17 at 03:30 Magnesium Hydroxide (Milk Of Mag) 30 ml DAILY PRN PO CONSTIPATION; Start at 03:30 Carisoprodol (Soma) 350 mg Q8 PRN PO MUSCLE SPASMS Last administered on 04:47; Admin Dose 350 MG; Start 01/12/17 at 03:30 Cinacalcet (Sensipar) 30 mg DAILY PO Last administered on 01/18/17 08:39; Admin Dose 30 MG; Start 01/12/17 at 09:00 Montelukast Sodium (Singulair) 10 mg QPM PO Last administered on 01/17/17 21:21 ; Admin Dose 10 MG; Start 01/12/17 at 21:00 Sucralfate (Carafate) 1 gm QID PO Last administered on 01/18/17 13:16; Admin Dose 1 GM; Start 01/12/17 at 09:00 Salmeterol Xinafoate/ Fluticasone (Advair 250/50 Diskus) 1 inh BID INH Last administered on 01/18/17 08:39; Admin Dose 1 INH; Start 01/12/17 at 11:00 Miscellaneous Information 1 ea NOTE XX ; Start 01/12/17 at 04:00 Glucose (Glutose) 15 gm Q15M PRN PO DECREASED GLUCOSE Last administered on 04:32; Admin Dose 15 GM; Start 01/12/17 at 04:00 Glucose (Glutose) 22.5 gm Q15M PRN PO DECREASED GLUCOSE; Start 01/12/17 at 04: 00 Dextrose (D50w Syringe) 25 ml Q15M PRN IV DECREASED GLUCOSE Last administered on 01/17/17 04:57; Admin Dose 25 ML; Start 01/12/17 at 04:00 Dextrose (D50w Syringe) 50 ml Q15M PRN IV DECREASED GLUCOSE Last administered on 01/17/17 12:29; Admin Dose 50 ML; Start 01/12/17 at 04:00 Glucagon (Glucagen) 1 mg Q15M PRN IM DECREASED GLUCOSE; Start 01/12/17 at 04:00 Glucose (Glutose) 15 gm Q15M PRN BUCCAL DECREASED GLUCOSE; Start 01/12/17 at 04 :00 Miscellaneous Information This patient sexton... PRN PRN XX WOUND CARE; Start 01/12 at 04:30 Caspofungin/ Sodium Chloride (Cancidas/NS) 250 ml @ 250 mls/hr Q24H IVPB Last administered on 01/18/17 13:15; Admin Dose 250 MLS/HR; Start 01/13/17 at 12:00 Sodium Hypochlorite (Dakin'S (05/19 Strength)) 1 applic BID IRR Last administered on 01/18/17 08:56; Admin Dose 1 APPLIC; Start 01/12/17 at 13:00 IV Flush (NS 10 ml) 10 ml PRN PRN IV IV PROTOCOL; Start 01/12/17 at 18:00 Lorazepam (Ativan) 1 mg Q3H PRN IV anxiety Last administered on 01/18/17 15:25 ; Admin Dose 1 MG; Start 01/13/17 at 22:30 Amikacin Sulfate (Amikacin Iv Per Pharmacy) AMIKACIN PER PHARMACY NOTE XX ; Start 01/14/17 at 11:30 Atorvastatin Calcium 20 mg 20 mg DAILY@21 PO Last administered on 01/17/17 21: 21; Admin Dose 20 MG; Start 01/14/17 at 21:00 Linezolid (Zyvox 600mg/D5W (Pmx)) 300 ml @ 300 mls/hr Q12 IVPB Last administered on 01/18/17 08:40; Admin Dose 300 MLS/HR; Start 01/15/17 at 17:00 Pantoprazole (Protonix Iv) 40 mg BID@06,18 IV Last administered on 01/18/17 05: 28; Admin Dose 40 MG; Start 01/16/17 at 18:00 Diagnostic Test (Pha) (Accu-Chek) 1 ea 02 XX ; Start 01/18/17 at 02:00 Diagnostic Test (Pha) (Accu-Chek) 1 ea 02 XX ; Start 01/18/17 at 02:00 Insulin Detemir (Levemir) 15 unit QHS@20 SC ; Start 01/17/17 at 20:00 Oxycodone/ Acetaminophen (Percocet (5/ 325)) 1 tab Q4H PRN PO PAIN Last administered on 01/18/17t 06:37; Admin Dose 1 TAB; Start 01/18/17 at 00:30 LUIS E DUFFY MD Jan 18, 2017 17:01
[2017-01-18] MEDS: MONTELUKAST 10 MG TAB PO SCH (21:24)
[2017-01-18] MEDS: ATORVASTATIN 20 MG TAB PO SCH (21:24)
[2017-01-18] MEDS: INSULIN DETEMIR [LEVEMIR] 3ML CART SC SCH (21:32)
[2017-01-19] VITALS (10 sets, daily range): BP systolic 118–149; BP diastolic 58–80; PULSE 90–98; RESP 16–18
[2017-01-19] MEDS: OXYCODONE/ACETAMINOPHEN (5/325) TAB PO PRN ×2 (01:55→11:29)
[2017-01-19] MEDS: ACCU-CHEK XX SCH (02:00)
--- NOTE | 2017-01-19 02:51 | PN ---
DATE: 01/18/2017 SUBJECTIVE DATA: No acute events overnight. The patient is sleeping. No fevers. No vomiting or diarrhea. LAB: WBC yesterday was 14.8. MICROBIOLOGY: Right thigh wound culture grew VRE, Pseudomonas aeruginosa, Klebsiella, ESBL, and Providencia stuartii. INDWELLINGS: Patient has an AV fistula. ANTIMICROBIALS: Amikacin, Zyvox, and Cancidas. PHYSICAL EXAMINATION: GENERAL: This is an a morbidly obese, elderly woman, who is lethargic, sleeping, and in no distress. HEENT: Head atraumatic, normocephalic. Sclerae are anicteric. Buccal mucosa is dry. NECK: Obese. LUNGS: Chest rise is symmetrical. Breath sounds are diminished at the bases. HEART: S1, S2. ABDOMEN: Soft. Bowel sounds are present. EXTREMITIES: Multiple wounds. There is a large left lateral thigh wound. ASSESSMENT: 1. Resolving sepsis status post shock. 2. Multiple chronic wounds, status post debridement. 3. Morbid obesity. 4. End-stage renal disease, hemodialysis dependent. 5. Status post GI bleed with acute anemia. 6. Atrial fibrillation. 7. Allergy to penicillin and Cipro. PLAN: The patient remains stable. We are going to discontinue Cancidas, keep her on amikacin and Zyvox. Continue local wound care, as per surgical recommendations. Dictated By: Rita Correa NP /herrera/shiloh /Document#: [id number]
[2017-01-19] MEDS: morphine 2 MG INJ IV PRN ×3 (03:19→17:48)
[2017-01-19] MEDS: PANTOPRAZOLE 40 MG INJ IV SCH (05:58)
[2017-01-19 06:57] LABS: ABNORMAL IP MESSAGE 1; BASOPHIL # 0.1 10^3/ul (0.0-0.1); BASOPHILS % 0.6 % (0.0-2.0); EOSINOPHILS # 0.6 10^3/ul (0.0-0.5); EOSINOPHILS % 4.4 % (0.0-7.0); HEMATOCRIT 28.6 % (37.0-47.0); HEMOGLOBIN 9.1 g/dl (12.0-16.0); LYMPHOCYTES # 1.6 10^3/ul (0.8-2.9); LYMPHOCYTES % 11.5 % (15.0-51.0); MEAN CORPUSCULAR HEMOGLOBIN 28.3 pg (29.0-33.0); MEAN CORPUSCULAR HGB CONC 31.8 g/dl (32.0-37.0); MEAN CORPUSCULAR VOLUME 88.8 fl (82.0-101.0); MEAN PLATELET VOLUME 9.2 fl (7.4-10.4); MONOCYTE # 1.6 10^3/ul (0.3-0.9); MONOCYTES % 11.8 % (0.0-11.0); NEUTROPHILS % 66.9 % (39.0-77.0); PLATELET COUNT 295 10^3/UL (140-415); RED BLOOD COUNT 3.22 10^6/ul (4.20-5.40); WHITE BLOOD COUNT 13.8 10^3/ul (4.8-10.8)
[2017-01-19 06:58] LABS: POSITIVE DIFF @See below
[2017-01-19 07:28] LABS: CALCIUM 8.4 mg/dl (8.4-10.2); CREATININE 2.96 mg/dl (0.44-1.00); POTASSIUM 3.2 mmol/L (3.5-5.1)
[2017-01-19] MEDS: INSULIN ASPART [NOVOLOG] 3 ML PEN SC SCH ×3 (08:00→17:59)
--- NOTE | 2017-01-19 09:03 | DS ---
Date/Time of Note Date/Time of Note DATE: 01/19/17 TIME: 09:02 Discharge Summary Admission/Discharge Info Admit Date/Time Jan 12, 2017 at 04:33 Discharge Date/Time Discharge Diagnosis sepsis from healthcare associated pneumonia v from chronic L thigh wound, severe gastropathy, multiple gastric ulcers, hiatal hernia Patient Condition: Stable Consults infectious disease, general surgery, cardiology, GI, nephrology Procedures 9.1 EGD Operative\Procedure Findings 1. severe gastropathy 2. multiple gastric ulcer, one of the ulcer has overlying clot 3. NG trauma in the stomach and tip of NG was hitting one of the gastric ulcer 4. 3 cm hiatal hernia Hx of Present Illness This is a 61-year-old female with a history of hypertension, insulin-dependent diabetes, ESRD on HD, lower extremity thigh gangrenous decubitus ulcer status post debridement, chronic atrial fibrillation, erosive gastritis and esophagitis who was sent from the rehab for weakness and hypotension. Reportedly, patient was given 500 cc of IV fluid bolus but she remained hypotensive. Currently patient is lethargic and at times agitated and as such information is gathered from chart review and from the ER physician. She has been admitted here multiple times, last admission being this months. She has an upper thigh gangrenous decubitus ulcers which were debrided previously with placement of a wound VAC. When patient presented to the ER today, she was hypotensive with a blood pressure of 61/38 with a heart rate of 107. Labs shows a hemoglobin of 5.4. She also has elevated white counts of 25,000. Chest x-ray shows right lung zone consolidation. Currently patient is admitted to ICU and blood pressure on the monitor is 84/53. An attempt in the ER was made to contact family to get a consent for blood transfusion but it was unsuccessful. Of note, patient has a history of GI bleed and currently she takes Eliquis for A-fib. There is no report from the facility that the patient was sent from, of any hematemesis, dark stool or bright red blood per rectum. She had an EGD here last month which showed erosive gastritis, esophagitis and probable Land's esophagus. . . Hospital Course Pt initially admitted to the ICU as she required pressor support. Seen by GI for anemia and concern for UGIB, results as above. BID PPI continued. Regarding pt's AFib, pt initially given amio/digoxin as all home BP meds were on hold, however HR has largely been at goal (<110) on no antiarrhytmics since 9.2 off of both of these agents. Pressors weaned and she was transferred to the floor 9.3. For pt's chronic thigh wound she was seen by general surgery, no debridement done during her stay. ID also followed for antimicrobial management. Pt to be discharged on linezolid and amikacin which are to be continued at her facility Of note, pt with occ hypoglycemia during her stay. Home lantus dose decreased from 30 to 15 units daily OF NOTE, all of pt's BP meds have been stopped during her stay and BP has been within acceptable range without them. Pt's ATC is on hold given gastric ulcers-->she should discuss her AFib with GI and cardiology prior to resuming ATC Home Meds Active Scripts Insulin Aspart* (Novolog Insulin Pen*) 100 Unit/Ml Soln, 0 UNIT SC WITH MEALS BEDTIME for 30 Days Prov:CHIP MUNSON 12/17/16 Collagenase* (Santyl*) 30 Gm Oint..gm., 1 APPLIC TOP DAILY for 30 Days Prov:CHIP MUNSON 12/17/16 Insulin Detemir (Levemir Flextouch) 100 Unit/1 Ml Insuln.pen, 30 UNIT SC QHS@20 for 30 Days Prov:CHIP MUNSON 12/17/16 Sucralfate (Carafate) 1 Gm Tablet, 1 GM PO QID for 15 Days, TAB Prov:CHIP MUNSON 12/17/16 Pantoprazole* (Protonix* IV) 40 Mg Soln, 40 MG IV BID@06,18 for 30 Days Prov:CHIP MUNSON 12/17/16 Epoetin Hang (Epogen) 10,000 Units/Ml Soln, 98097 UNITS SC TuThSa@17 for 30 Days Prov:CHIP MUNSON 12/17/16 Nicotine* (Nicotine* Patch) 21 mg/day Patch, 1 PATCH TRANSDERM DAILY for 30 Days Prov:CHIP MUNSON 12/17/16 Reported Medications Diltiazem Hcl* (Cardizem SR*) 120 Mg Cap.sr.12h, 120 MG PO Q12, CAP 01/12/17 Oxycodone Hcl-Acetaminophen* (Endocet*) 10-325 Mg Tablet, 1 TAB PO Q6H Y for PAIN LEVEL 6-10, TAB 01/12/17 Carisoprodol* (Soma*) 350 Mg Tablet, 350 MG PO DAILY Y for MUSCLE SPASMS, TAB 01/12/17 Ipratropium-Albuterol (Ipratropium-Albuterol) 0.5-3 Mg/3 Ml Ampul.neb, 3 ML INHALATION Q6, #30 VIAL 01/12/17 Apixaban* (Eliquis*) 5 Mg Tablet, 5 MG PO BID, TAB 01/12/17 Ondansetron Hcl* (Zofran*) 4 Mg Tab, 4 MG PO Q6H Y for NAUSEA AND OR VOMITING, TAB 01/12/17 Cranberry Extract (Cranberry) 425 Mg Capsule, 425 MG PO DAILY, CAP 01/12/17 Bisacodyl* (Dulcolax*) 5 Mg Tablet.dr, 10 MG PO DAILY Y for CONSTIPATION, TAB 01/12/17 Sucralfate* (Carafate*) 1 Gm Tab, 1 GM PO AC MEALS AND BEDTIME, TAB 01/12/17 Pyridoxine Hcl (Vitamin B6) 50 Mg Tab, 50 MG PO DAILY, TAB 01/12/17 Polyethylene Glycol* (Miralax*) 17 Gm Powd.pack, 17 GM PO BID, #60 PACKET 01/12/17 Nicotine* (Nicotine* Patch) 21 mg/day Patch, 1 EACH TD DAILY, PATCH 01/12/17 Pantoprazole* (Pantoprazole*) 40 Mg Tablet.dr, 40 MG PO BID, TAB TAKE 1TAB PO AT 0630 AM and 1630PM 01/12/17 Carisoprodol* (Carisoprodol*) 350 Mg Tablet, 350 MG PO Q8 Y for MUSCLE SPASMS, TAB 11/11/16 Tiotropium [place]* (Spiriva*) 18 Mcg Cap.w.dev, 1 CAP INHALATION DAILY, #30 CAP 09/09/16 Montelukast Sodium* (Montelukast Sodium*) 10 Mg Tablet, 10 MG PO QAM, #30 TAB 09/09/16 Calcium Acetate* (Phoslo*) 667 Mg Tablet, 667 MG PO WITH MEALS, TAB TAKE 4 TAB 09/09/16 Pyridoxine Hcl* (Pyridoxine Hcl*) 50 Mg Tablet, 50 MG PO DAILY, TAB 09/09/16 Zolpidem Tartrate* (Zolpidem Tartrate*) 5 Mg Tablet, 5 MG PO QHS Y for INSOMNIA , #30 TAB 09/09/16 Oxycodone HCl/Acetaminophen (Percocet 10-325 mg Tablet) 1 Each Tablet, 1 EACH PO Q6 Y for PRN, TAB 09/09/16 Budesonide-Formoterol Fumarate* (Symbicort*) 160-4.5 Hfa.aer.ad, 2 PUFF INHALATION BID, #1 EACH 12/19/15 Furosemide* (Furosemide*) 80 Mg Tablet, 80 MG PO DAILY, #30 TAB 12/19/15 Atorvastatin* (Atorvastatin*) 40 Mg Tablet, 40 MG PO QHS, #30 TAB 12/19/15 Amlodipine Besylate* (Amlodipine Besylate*) 5 Mg Tablet, 5 MG PO DAILY, #30 TAB 12/19/15 Losartan Potassium* (Losartan Potassium*) 50 Mg Tablet, 50 MG PO BID, TAB 12/19/15 Cinacalcet* (Sensipar*) 30 Mg Tab, 30 MG PO, TAB 12/19/15 Diltiazem Hcl* (Cardizem SR*) 60 Mg Capsr, 60 MG PO Q12, #60 CAP 12/19/15 Metoprolol Succinate* (Toprol XL*) 50 Mg Tab.er.24h, 50 MG PO BID, #30 TAB 12/19/15 Metoclopramide* (Reglan*) 5 Mg Tablet, 5 MG PO AC MEALS, TAB 12/19/15 Aspirin* (Aspirin* Chew) 81 Mg Tab.chew, 81 MG PO DAILY, TAB.CHEW 12/19/15 Albuterol Sulfate* (Proair HFA*) 8.5 Gm Hfa.aer.ad, 2 PUFF INH Q4H Y for WHEEZING AND SOB, INH 06/12/14 Primary Care Provider Randy Miranda Time spent on discharge: > 30 minutes Pending Labs Laboratory Tests Test 01/18/17 12:13 01/18/17 17:30 01/18/17 21:29 01/19/17 06:06 Bedside Glucose 169mg/dL (70-220) 159mg/dL (70-220) 134mg/dL (70-220) White Blood Count 13.810^3/ul (4.8-10.8) Red Blood Count 3.2210^6/ul (4.20-5.40) Hemoglobin 9.1g/dl (12.0-16.0) Hematocrit 28.6% (37.0-47.0) Mean Corpuscular Volume 88.8fl (82.0-101.0) Mean Corpuscular Hemoglobin 28.3pg (29.0-33.0) Mean Corpuscular Hemoglobin Concent 31.8g/dl (32.0-37.0) Red Cell Distribution Width 19.0% (11.5-14.5) Platelet Count 29118^3/UL (140-415) Mean Platelet Volume 9.2fl (7.4-10.4) Neutrophils % 66.9% (39.0-77.0) Lymphocytes % 11.5% (15.0-51.0) Monocytes % 11.8% (0.0-11.0) Eosinophils % 4.4% (0.0-7.0) Basophils % 0.6% (0.0-2.0) Nucleated Red Blood Cells % 0.0/100WBC (0.0-0.0) Neutrophils # (Manual) 9.210^3/ul (1.7-7.5) Lymphocytes # 1.610^3/ul (0.8-2.9) Monocytes # 1.610^3/ul (0.3-0.9) Eosinophils # 0.610^3/ul (0.0-0.5) Basophils # 0.110^3/ul (0.0-0.1) Nucleated Red Blood Cells # 0.010^3/ul (0.0-0.0) Sodium Level 133mmol/L (135-144) Potassium Level 3.2mmol/L (3.5-5.1) Chloride Level 100mmol/L (97-110) Carbon Dioxide Level 26mmol/L (21-31) Anion Gap 10 (8-16) Blood Urea Nitrogen 28mg/dl (7-20) Creatinine 2.96mg/dl (0.44-1.00) Glucose Level 124mg/dl (70-220) Calcium Level 8.4mg/dl (8.4-10.2) Copies To: CC: MAJO PARK MD; HALEY HERNANDEZ MD, ELLEN MD Jan 19, 2017 09:03 (0.44-1.00) Glucose Level 124mg/dl (70-220) Calcium Level 8.4mg/dl (8.4-10.2) LUIS E DUFFY MD Jan 19, 2017 09:03
--- NOTE | 2017-01-19 09:52 | PDOCDIS ---
Discharge Instructions DIAGNOSIS Discharge Diagnosis sepsis from healthcare associated pneumonia v from chronic L thigh wound, severe gastropathy, multiple gastric ulcers, hiatal hernia CONDITION Patient Condition: Stable HOME CARE INSTRUCTIONS: Special Diet: Renal FOLLOW UP/APPOINTMENTS Follow-up Plan Notice to provider at SNF: Pt's anticoagulation was stopped as she was very anemic on arrival. All of her BP meds are currently on hold as well. She will need follow up with GI and cardiology within 4 weeks. LUIS E DUFFY MD Jan 19, 2017 09:52
[2017-01-19] MEDS: SUCRALFATE 1 GM TAB PO SCH ×3 (10:02→17:48)
[2017-01-19] MEDS: SALMETEROL/FLUTICASONE 250/50 INHA INH SCH (10:02)
[2017-01-19] MEDS: CINACALCET 30 MG TAB PO SCH (10:02)
[2017-01-19] MEDS: SODIUM HYPOCHLORITE 0.125% 473 ML BTL IRR SCH (10:06)
[2017-01-19] MEDS: LINEZOLID 600 MG/D5W (PMX) 300 ML IVPB SCH (11:24)
[2017-01-19] MEDS: LORAZEPAM 2 MG INJ IV PRN ×2 (12:20→19:40)
--- NOTE | 2017-01-19 12:55 | CONS ---
Date/Time of Note Date/Time of Note DATE: 01/19/17 TIME: 12:54 Assessment/Plan Assessment/Plan Chief Complaint/Hosp Course SUBJECTIVE DATA: No acute events overnight. No fevers. No vomiting or diarrhea. MICROBIOLOGY: Right thigh wound culture grew VRE, Pseudomonas aeruginosa, Klebsiella, ESBL, and Providencia stuartii. INDWELLINGS: Patient has an AV fistula. ANTIMICROBIALS: Amikacin, Zyvox PHYSICAL EXAMINATION: GENERAL: This is an a morbidly obese, elderly woman, who is lethargic, sleeping, and in no distress. HEENT: Head atraumatic, normocephalic. Sclerae are anicteric. Buccal mucosa is dry. NECK: Obese. LUNGS: Chest rise is symmetrical. Breath sounds are diminished at the bases. HEART: S1, S2. ABDOMEN: Soft. Bowel sounds are present. EXTREMITIES: Multiple wounds. There is a large left lateral thigh wound. ASSESSMENT: 1. Resolving sepsis status post shock. 2. Multiple chronic wounds, status post debridement. 3. Morbid obesity. 4. End-stage renal disease, hemodialysis dependent. 5. Status post GI bleed with acute anemia. 6. Atrial fibrillation. 7. Allergy to penicillin and Cipro. PLAN: The patient remains stable. Pending discharge, continue abx for 2-4 weeks, f/u with surgery, local wound care [facility] staff Problems: Consultation Date/Type/Reason Admit Date/Time Jan 12, 2017 at 04:33 Initial Consult Date 01/14/17 Type of Consultation: ID Referring Provider: ERICK MATOS Exam/Review of Systems Vital Signs Vitals Vital Signs Date Time Temp Pulse Resp B/P Pulse Ox O2 Delivery O2 Flow Rate FiO2 01/19/17 07:55 97.5 84 16 129/58 100 01/18/17 20:00 Nasal Cannula 2.0 01/18/17 15:01 21 Intake and Output 01/18/17 01/18/17 01/19/17 15:00 23:00 07:00 Intake Total 651.4 ml 1000 ml 850 ml Balance 651.4 ml 1000 ml 850 ml Results Result Diagram: 01/19/17 0606 01/19/17 0606 Results 24 hrs Laboratory Tests Test 01/18/17 17:30 01/18/17 21:29 01/19/17 06:06 01/19/17 10:00 Bedside Glucose 159 134 113 White Blood Count 13.8 H Red Blood Count 3.22 L Hemoglobin 9.1 L Hematocrit 28.6 L Mean Corpuscular Volume 88.8 Mean Corpuscular Hemoglobin 28.3 L Mean Corpuscular Hemoglobin Concent 31.8 L Red Cell Distribution Width 19.0 H Platelet Count 295 Mean Platelet Volume 9.2 Neutrophils % 66.9 Lymphocytes % 11.5 L Monocytes % 11.8 H Eosinophils % 4.4 Basophils % 0.6 Nucleated Red Blood Cells % 0.0 Neutrophils # (Manual) 9.2 H Lymphocytes # 1.6 Monocytes # 1.6 H Eosinophils # 0.6 H Basophils # 0.1 Nucleated Red Blood Cells # 0.0 Sodium Level 133 L Potassium Level 3.2 L Chloride Level 100 Carbon Dioxide Level 26 Anion Gap 10 Blood Urea Nitrogen 28 H Creatinine 2.96 H Glucose Level 124 # Calcium Level 8.4 Test 01/19/17 11:37 Bedside Glucose 122 Medications Medications Current Medications Ondansetron HCl (Zofran Inj) 4 mg Q6H PRN IV NAUSEA AND/OR VOMITING; Start at 03:30 Metoclopramide HCl (Reglan) 10 mg Q6H PRN IV NAUSEA AND/OR VOMITING; Start at 03:30 Acetaminophen (Tylenol Liquid) 650 mg Q6H PRN PO PAIN LEVEL 1-3 OR FEVER; Start 01/12/17 at 03:30 Morphine Sulfate (morphine) 2 mg Q4H PRN IV PAIN LEVEL 7-10 Last administered on 01/19/17 10:30; Admin Dose 2 MG; Start 01/12/17 at 03:30 Magnesium Hydroxide (Milk Of Mag) 30 ml DAILY PRN PO CONSTIPATION; Start at 03:30 Carisoprodol (Soma) 350 mg Q8 PRN PO MUSCLE SPASMS Last administered on 04:47; Admin Dose 350 MG; Start 01/12/17 at 03:30 Cinacalcet (Sensipar) 30 mg DAILY PO Last administered on 01/19/17 10:02; Admin Dose 30 MG; Start 01/12/17 at 09:00 Montelukast Sodium (Singulair) 10 mg QPM PO Last administered on 01/18/17 21:24 ; Admin Dose 10 MG; Start 01/12/17 at 21:00 Sucralfate (Carafate) 1 gm QID PO Last administered on 01/19/17 12:20; Admin Dose 1 GM; Start 01/12/17 at 09:00 Salmeterol Xinafoate/ Fluticasone (Advair 250/50 Diskus) 1 inh BID INH Last administered on 01/19/17 10:02; Admin Dose 1 INH; Start 01/12/17 at 11:00 Miscellaneous Information 1 ea NOTE XX ; Start 01/12/17 at 04:00 Glucose (Glutose) 15 gm Q15M PRN PO DECREASED GLUCOSE Last administered on 04:32; Admin Dose 15 GM; Start 01/12/17 at 04:00 Glucose (Glutose) 22.5 gm Q15M PRN PO DECREASED GLUCOSE; Start 01/12/17 at 04: 00 Dextrose (D50w Syringe) 25 ml Q15M PRN IV DECREASED GLUCOSE Last administered on 01/17/17 04:57; Admin Dose 25 ML; Start 01/12/17 at 04:00 Dextrose (D50w Syringe) 50 ml Q15M PRN IV DECREASED GLUCOSE Last administered on 01/17/17 12:29; Admin Dose 50 ML; Start 01/12/17 at 04:00 Glucagon (Glucagen) 1 mg Q15M PRN IM DECREASED GLUCOSE; Start 01/12/17 at 04:00 Glucose (Glutose) 15 gm Q15M PRN BUCCAL DECREASED GLUCOSE; Start 01/12/17 at 04 :00 Miscellaneous Information [facility] This patient sexton... PRN PRN XX WOUND CARE; Start 01/12/17 at 04:30 Sodium Hypochlorite (Dakin'S (1/4 Strength)) 1 applic BID IRR Last administered on 01/19/17 10:06; Admin Dose 1 APPLIC; Start 01/12/17 at 13:00 IV Flush (NS 10 ml) 10 ml PRN PRN IV IV PROTOCOL; Start 01/12/17 at 18:00 Lorazepam (Ativan) 1 mg Q3H PRN IV anxiety Last administered on 01/19/17 12:20 ; Admin Dose 1 MG; Start 01/13/17 at 22:30 Amikacin Sulfate (Amikacin Iv Per Pharmacy) AMIKACIN PER PHARMACY NOTE XX ; Start 01/14/17 at 11:30 Atorvastatin Calcium 20 mg 20 mg DAILY@21 PO Last administered on 01/18/17 21: 24; Admin Dose 20 MG; Start 01/14/17 at 21:00 Linezolid (Zyvox 600mg/D5W (Pmx)) 300 ml @ 300 mls/hr Q12 IVPB Last administered on 01/19/17 11:24; Admin Dose 300 MLS/HR; Start 01/15/17 at 17:00 Diagnostic Test (Pha) (Accu-Chek) 1 ea 02 XX ; Start 01/18/17 at 02:00 Insulin Detemir (Levemir) 15 unit QHS@20 SC Last administered on 01/18/17 21:32 ; Admin Dose 15 UNIT; Start 01/17/17 at 20:00 Oxycodone/ Acetaminophen (Percocet (5/ 325)) 1 tab Q4H PRN PO PAIN Last administered on 01/19/17 11:29; Admin Dose 1 TAB; Start 01/18/17 at 00:30 Pantoprazole (Protonix Tab) 40 mg BID@06,18 PO ; Start 01/19/17 at 18:00 TODD RAMIRES NP Jan 19, 2017 12:55
[2017-01-19] MEDS: CARISOPRODOL 350 MG TAB PO PRN (14:21)
--- NOTE | 2017-01-19 16:28 | CONS ---
Date/Time of Note Date/Time of Note DATE: 01/19/17 TIME: 16:21 Assessment/Plan Assessment/Plan Chief Complaint/Hosp Course IMPRESSION: 1. Atrial fibrillation. Currently, under improved rate control on amiodarone.-with some epsiodes of SVR to 40's transient now with mild RVR with holding of amio 2. Hypotension-borderline currently off of pressor support 3. Abnormal electrocardiogram. Assess for acute coronary syndrome with inferolateral ST depressions, anteroseptal Q's. 4. Anemia.-negative trop x 3 5. Possible gastrointestinal bleed. 6. Lower extremity ulceration/wound. 7. Altered mental state. 8. End-stage renal disease. 9. Congestive heart failure with chest x-ray. Question systolic versus diastolic. 10. Coagulopathy? etiology synthetic dysfunction/poor nutrition- improved REcc: -Continue abx's and f/u cx data -HD as necessary/tolerated for volume removal -Continue statin -Start low dose BB and follow HR closely Problems: Consultation Date/Type/Reason Admit Date/Time Jan 12, 2017 at 04:33 Initial Consult Date 01/14/17 Type of Consultation: cardiology Reason for Consultation AF Referring Provider: ERICK MATOS Exam/Review of Systems Vital Signs Vitals Vital Signs Date Time Temp Pulse Resp B/P Pulse Ox O2 Delivery O2 Flow Rate FiO2 01/19/17 14:46 97.6 106 18 118/69 97 01/18/17 20:00 Nasal Cannula 2.0 01/18/17 15:01 21 Intake and Output 01/18/17 01/18/17 01/19/17 15:00 23:00 07:00 Intake Total 651.4 ml 1000 ml 850 ml Balance 651.4 ml 1000 ml 850 ml Exam Review of Systems: CONSTITUTIONAL: No fevers, chills. PULMONARY: No sob CARDIOVASCULAR: No chest pain/palpitations GASTROINTESTINAL: No nausea/vomiting. GENITOURINARY: No hematuria/dysuria. MUSCULOSKELETAL: No myagias/arthalgias. PSYCHIATRIC: The patient denies depression. NEUROLOGIC: No weakness Constitutional: alert Psych: no complaints Head: normocephalic ENMT: mucosa pink and moist Neck: jvd (9 cm water), supple Respiratory: diminished breath sounds Cardiovascular: irregular rhythm Gastrointestinal: non-tender, soft Musculoskeletal: muscle tone (normal) Extremities: edema (none) Neurological: other (No focal deficits) Results Result Diagram: 01/19/17 0606 01/19/17 0606 Results 24 hrs Laboratory Tests Test 01/18/17 17:30 01/18/17 21:29 01/19/17 06:06 01/19/17 10:00 Bedside Glucose 159 134 113 White Blood Count 13.8 H Red Blood Count 3.22 L Hemoglobin 9.1 L Hematocrit 28.6 L Mean Corpuscular Volume 88.8 Mean Corpuscular Hemoglobin 28.3 L Mean Corpuscular Hemoglobin Concent 31.8 L Red Cell Distribution Width 19.0 H Platelet Count 295 Mean Platelet Volume 9.2 Neutrophils % 66.9 Lymphocytes % 11.5 L Monocytes % 11.8 H Eosinophils % 4.4 Basophils % 0.6 Nucleated Red Blood Cells % 0.0 Neutrophils # (Manual) 9.2 H Lymphocytes # 1.6 Monocytes # 1.6 H Eosinophils # 0.6 H Basophils # 0.1 Nucleated Red Blood Cells # 0.0 Sodium Level 133 L Potassium Level 3.2 L Chloride Level 100 Carbon Dioxide Level 26 Anion Gap 10 Blood Urea Nitrogen 28 H Creatinine 2.96 H Glucose Level 124 # Calcium Level 8.4 Test 01/19/17 11:37 Bedside Glucose 122 Medications Medications Current Medications Ondansetron HCl (Zofran Inj) 4 mg Q6H PRN IV NAUSEA AND/OR VOMITING; Start at 03:30 Metoclopramide HCl (Reglan) 10 mg Q6H PRN IV NAUSEA AND/OR VOMITING; Start at 03:30 Acetaminophen (Tylenol Liquid) 650 mg Q6H PRN PO PAIN LEVEL 1-3 OR FEVER; Start 01/12/17 at 03:30 Morphine Sulfate (morphine) 2 mg Q4H PRN IV PAIN LEVEL 7-10 Last administered on 01/19/17 10:30; Admin Dose 2 MG; Start 01/12/17 at 03:30 Magnesium Hydroxide (Milk Of Mag) 30 ml DAILY PRN PO CONSTIPATION; Start at 03:30 Carisoprodol (Soma) 350 mg Q8 PRN PO MUSCLE SPASMS Last administered on 14:21; Admin Dose 350 MG; Start 01/12/17 at 03:30 Cinacalcet (Sensipar) 30 mg DAILY PO Last administered on 01/19/17 10:02; Admin Dose 30 MG; Start 01/12/17 at 09:00 Montelukast Sodium (Singulair) 10 mg QPM PO Last administered on 01/18/17 21:24 ; Admin Dose 10 MG; Start 01/12/17 at 21:00 Sucralfate (Carafate) 1 gm QID PO Last administered on 01/19/17 12:20; Admin Dose 1 GM; Start 01/12/17 at 09:00 Salmeterol Xinafoate/ Fluticasone (Advair 250/50 Diskus) 1 inh BID INH Last administered on 01/19/17 10:02; Admin Dose 1 INH; Start 01/12/17 at 11:00 Miscellaneous Information 1 ea NOTE XX ; Start 01/12/17 at 04:00 Glucose (Glutose) 15 gm Q15M PRN PO DECREASED GLUCOSE Last administered on 04:32; Admin Dose 15 GM; Start 01/12/17 at 04:00 Glucose (Glutose) 22.5 gm Q15M PRN PO DECREASED GLUCOSE; Start 01/12/17 at 04: 00 Dextrose (D50w Syringe) 25 ml Q15M PRN IV DECREASED GLUCOSE Last administered on 01/17/17 04:57; Admin Dose 25 ML; Start 01/12/17 at 04:00 Dextrose (D50w Syringe) 50 ml Q15M PRN IV DECREASED GLUCOSE Last administered on 01/17/17 12:29; Admin Dose 50 ML; Start 01/12/17 at 04:00 Glucagon (Glucagen) 1 mg Q15M PRN IM DECREASED GLUCOSE; Start 01/12/17 at 04:00 Glucose (Glutose) 15 gm Q15M PRN BUCCAL DECREASED GLUCOSE; Start 01/12/17 at 04 :00 Miscellaneous Information (Pending [facility] Order For Wound Care) This patient sexton... PRN PRN XX WOUND CARE; Start 01/12/17 at 04:30 Sodium Hypochlorite (Dakin'S (1/4 Strength)) 1 applic BID IRR Last administered on 01/19/17 10:06; Admin Dose 1 APPLIC; Start 01/12/17 at 13:00 IV Flush (NS 10 ml) 10 ml PRN PRN IV IV PROTOCOL; Start 01/12/17 at 18:00 Lorazepam (Ativan) 1 mg Q3H PRN IV anxiety Last administered on 01/19/17 12:20 ; Admin Dose 1 MG; Start 01/13/17 at 22:30 Amikacin Sulfate (Amikacin Iv Per Pharmacy) AMIKACIN PER PHARMACY NOTE XX ; Start 01/14/17 at 11:30 Atorvastatin Calcium 20 mg 20 mg DAILY@21 PO Last administered on 01/18/17 21: 24; Admin Dose 20 MG; Start 01/14/17 at 21:00 Linezolid (Zyvox 600mg/D5W (Pmx)) 300 ml @ 300 mls/hr Q12 IVPB Last administered on 01/19/17 11:24; Admin Dose 300 MLS/HR; Start 01/15/17 at 17:00 Diagnostic Test (Pha) (Accu-Chek) 1 ea 02 XX ; Start 01/18/17 at 02:00 Insulin Detemir (Levemir) 15 unit QHS@20 SC Last administered on 01/18/17 21:32 ; Admin Dose 15 UNIT; Start 01/17/17 at 20:00 Oxycodone/ Acetaminophen (Percocet (5/ 325)) 1 tab Q4H PRN PO PAIN Last administered on 01/19/17 11:29; Admin Dose 1 TAB; Start 01/18/17 at 00:30 Pantoprazole (Protonix Tab) 40 mg BID@06,18 PO ; Start 01/19/17 at 18:00 DEYSI HILLMAN Jan 19, 2017 16:28
--- NOTE | 2017-01-19 16:36 | CONS ---
Date/Time of Note Date/Time of Note DATE: 01/19/17 TIME: 16:34 Assessment/Plan Assessment/Plan Chief Complaint/Hosp Course - ESRD Dialysis dependent ( [facility] - Septic Shock ( Hemodynamically better ) - Anemia - Cellulitis - CAD / CHF PLAN: - Hemodynamic support - On bedside dialysis - Aiming for 2-3 Kg off as BP tolerates - Will use a high potassium bath Problems: Consultation Date/Type/Reason Admit Date/Time Jan 12, 2017 at 04:33 Initial Consult Date 01/12/17 Type of Consultation: NEPHROLOGY Reason for Consultation ESRD on Hemodialysis Referring Provider: ERICK MATOS 24 HR Interval Summary Constitutional: improved, no complaints Exam/Review of Systems Vital Signs Vitals Vital Signs Date Time Temp Pulse Resp B/P Pulse Ox O2 Delivery O2 Flow Rate FiO2 01/19/17 14:46 97.6 106 18 118/69 97 01/18/17 20:00 Nasal Cannula 2.0 01/18/17 15:01 21 Intake and Output 01/18/17 01/18/17 01/19/17 15:00 23:00 07:00 Intake Total 651.4 ml 1000 ml 850 ml Balance 651.4 ml 1000 ml 850 ml Exam Constitutional: alert, oriented Psych: no complaints Neck: jvd Respiratory: crackles/rales Cardiovascular: edema, regular rate and rhythm, systolic murmur Gastrointestinal: soft Results Result Diagram: 01/19/17 0606 01/19/17 0606 Results 24 hrs Laboratory Tests Test 01/18/17 17:30 01/18/17 21:29 01/19/17 06:06 01/19/17 10:00 Bedside Glucose 159 134 113 White Blood Count 13.8 H Red Blood Count 3.22 L Hemoglobin 9.1 L Hematocrit 28.6 L Mean Corpuscular Volume 88.8 Mean Corpuscular Hemoglobin 28.3 L Mean Corpuscular Hemoglobin Concent 31.8 L Red Cell Distribution Width 19.0 H Platelet Count 295 Mean Platelet Volume 9.2 Neutrophils % 66.9 Lymphocytes % 11.5 L Monocytes % 11.8 H Eosinophils % 4.4 Basophils % 0.6 Nucleated Red Blood Cells % 0.0 Neutrophils # (Manual) 9.2 H Lymphocytes # 1.6 Monocytes # 1.6 H Eosinophils # 0.6 H Basophils # 0.1 Nucleated Red Blood Cells # 0.0 Sodium Level 133 L Potassium Level 3.2 L Chloride Level 100 Carbon Dioxide Level 26 Anion Gap 10 Blood Urea Nitrogen 28 H Creatinine 2.96 H Glucose Level 124 # Calcium Level 8.4 Test 01/19/17 11:37 Bedside Glucose 122 Medications Medications Current Medications Ondansetron HCl (Zofran Inj) 4 mg Q6H PRN IV NAUSEA AND/OR VOMITING; Start at 03:30 Metoclopramide HCl (Reglan) 10 mg Q6H PRN IV NAUSEA AND/OR VOMITING; Start at 03:30 Acetaminophen (Tylenol Liquid) 650 mg Q6H PRN PO PAIN LEVEL 1-3 OR FEVER; Start 01/12/17 at 03:30 Morphine Sulfate (morphine) 2 mg Q4H PRN IV PAIN LEVEL 7-10 Last administered on 01/19/17 10:30; Admin Dose 2 MG; Start 01/12/17 at 03:30 Magnesium Hydroxide (Milk Of Mag) 30 ml DAILY PRN PO CONSTIPATION; Start at 03:30 Carisoprodol (Soma) 350 mg Q8 PRN PO MUSCLE SPASMS Last administered on 14:21; Admin Dose 350 MG; Start 01/12/17 at 03:30 Cinacalcet (Sensipar) 30 mg DAILY PO Last administered on 01/19/17 10:02; Admin Dose 30 MG; Start 01/12/17 at 09:00 Montelukast Sodium (Singulair) 10 mg QPM PO Last administered on 01/18/17 21:24 ; Admin Dose 10 MG; Start 01/12/17 at 21:00 Sucralfate (Carafate) 1 gm QID PO Last administered on 01/19/17 12:20; Admin Dose 1 GM; Start 01/12/17 at 09:00 Salmeterol Xinafoate/ Fluticasone (Advair 250/50 Diskus) 1 inh BID INH Last administered on 01/19/17 10:02; Admin Dose 1 INH; Start 01/12/17 at 11:00 Miscellaneous Information 1 ea NOTE XX ; Start 01/12/17 at 04:00 Glucose (Glutose) 15 gm Q15M PRN PO DECREASED GLUCOSE Last administered on 04:32; Admin Dose 15 GM; Start 01/12/17 at 04:00 Glucose (Glutose) 22.5 gm Q15M PRN PO DECREASED GLUCOSE; Start 01/12/17 at 04: 00 Dextrose (D50w Syringe) 25 ml Q15M PRN IV DECREASED GLUCOSE Last administered on 01/17/17 04:57; Admin Dose 25 ML; Start 01/12/17 at 04:00 Dextrose (D50w Syringe) 50 ml Q15M PRN IV DECREASED GLUCOSE Last administered on 01/17/17 12:29; Admin Dose 50 ML; Start 01/12/17 at 04:00 Glucagon (Glucagen) 1 mg Q15M PRN IM DECREASED GLUCOSE; Start 01/12/17 at 04:00 Glucose (Glutose) 15 gm Q15M PRN BUCCAL DECREASED GLUCOSE; Start 01/12/17 at 04 :00 [facility] This patient sexton... PRN PRN XX WOUND CARE; Start 01/12/17 at 04:30 Sodium Hypochlorite (Dakin'S (1/4 Strength)) 1 applic BID IRR Last administered on 01/19/17 10:06; Admin Dose 1 APPLIC; Start 01/12/17 at 13:00 IV Flush (NS 10 ml) 10 ml PRN PRN IV IV PROTOCOL; Start 01/12/17 at 18:00 Lorazepam (Ativan) 1 mg Q3H PRN IV anxiety Last administered on 01/19/17 12:20 ; Admin Dose 1 MG; Start 01/13/17 at 22:30 Amikacin Sulfate (Amikacin Iv Per Pharmacy) AMIKACIN PER PHARMACY NOTE XX ; Start 01/14/17 at 11:30 Atorvastatin Calcium 20 mg 20 mg DAILY@21 PO Last administered on 01/18/17 21: 24; Admin Dose 20 MG; Start 01/14/17 at 21:00 Linezolid (Zyvox 600mg/D5W (Pmx)) 300 ml @ 300 mls/hr Q12 IVPB Last administered on 01/19/17 11:24; Admin Dose 300 MLS/HR; Start 01/15/17 at 17:00 Diagnostic Test (Pha) (Accu-Chek) 1 ea 02 XX ; Start 01/18/17 at 02:00 Insulin Detemir (Levemir) 15 unit QHS@20 SC Last administered on 01/18/17 21:32 ; Admin Dose 15 UNIT; Start 01/17/17 at 20:00 Oxycodone/ Acetaminophen (Percocet (5/ 325)) 1 tab Q4H PRN PO PAIN Last administered on 01/19/17 11:29; Admin Dose 1 TAB; Start 01/18/17 at 00:30 Pantoprazole (Protonix Tab) 40 mg BID@06,18 PO ; Start 01/19/17 at 18:00 Metoprolol Tartrate (Lopressor) 25 mg BID PO ; Start 01/19/17 at 21:00; Status BECKY ROGER MD Jan 19, 2017 16:36
--- NOTE | 2017-01-19 16:51 | PN ---
Date/Time of Note Date/Time of Note DATE: 01/19/17 TIME: 16:48 Assessment/Plan VTE Prophylaxis VTE Prophylaxis Intervention: SCD's Lines/Catheters IV Catheter Type (from Nrsg): PICC Line Central line still needed: Yes Urinary Cath still in place: No Assessment/Plan Assessment/Plan 1. Anemia: noted to have coffee ground emesis on NG tube. Resolved after EGD. - s/p EGD on 01/14/17 that showed severe gastropathy, multiple gastric ulcer, one of the ulcer has overlying clot and NG trauma in the stomach and tip of NG was hitting one of the gastric ulcer, 3 cm hiatal hernia 2. atrial fibrillation: on amiodarone 3. altered mental status 4. elevated INR Recommendations: 1. diet as tolerated 2. continue protonix bid dosing 3. f/u H. pylori serology and treat for eradication if positive. [address] Trujillo 5 further orders will depend on clinical course Subjective 24 Hr Interval Summary Free Text/Dictation * Course reviewed with RN * patient seen and examined * No untoward events Exam/Review of Systems Vital Signs Vitals Vital Signs Date Time Temp Pulse Resp B/P Pulse Ox O2 Delivery O2 Flow Rate FiO2 01/19/17 14:46 97.6 106 18 118/69 97 01/18/17 20:00 Nasal Cannula 2.0 01/18/17 15:01 21 Intake and Output 01/18/17 01/18/17 01/19/17 15:00 23:00 07:00 Intake Total 651.4 ml 1000 ml 850 ml Balance 651.4 ml 1000 ml 850 ml Exam Constitutional: alert, frail Neck: non-tender, supple Respiratory: diminished breath sounds, normal air movement Gastrointestinal: non-tender, soft Musculoskeletal: nl gait and stance Extremities: normal pulses Neurological: nl strength Skin: nl turgor, No rash or lesions Results Result Diagram: 01/19/17 0606 01/19/17 0606 Results 24 hrs Laboratory Tests Test 01/18/17 17:30 01/18/17 21:29 01/19/17 06:06 01/19/17 10:00 Bedside Glucose 159 134 113 White Blood Count 13.8 H Red Blood Count 3.22 L Hemoglobin 9.1 L Hematocrit 28.6 L Mean Corpuscular Volume 88.8 Mean Corpuscular Hemoglobin 28.3 L Mean Corpuscular Hemoglobin Concent 31.8 L Red Cell Distribution Width 19.0 H Platelet Count 295 Mean Platelet Volume 9.2 Neutrophils % 66.9 Lymphocytes % 11.5 L Monocytes % 11.8 H Eosinophils % 4.4 Basophils % 0.6 Nucleated Red Blood Cells % 0.0 Neutrophils # (Manual) 9.2 H Lymphocytes # 1.6 Monocytes # 1.6 H Eosinophils # 0.6 H Basophils # 0.1 Nucleated Red Blood Cells # 0.0 Sodium Level 133 L Potassium Level 3.2 L Chloride Level 100 Carbon Dioxide Level 26 Anion Gap 10 Blood Urea Nitrogen 28 H Creatinine 2.96 H Glucose Level 124 # Calcium Level 8.4 Test 01/19/17 11:37 Bedside Glucose 122 Medications Medications Current Medications Ondansetron HCl (Zofran Inj) 4 mg Q6H PRN IV NAUSEA AND/OR VOMITING; Start at 03:30 Metoclopramide HCl (Reglan) 10 mg Q6H PRN IV NAUSEA AND/OR VOMITING; Start at 03:30 Acetaminophen (Tylenol Liquid) 650 mg Q6H PRN PO PAIN LEVEL 1-3 OR FEVER; Start 01/12/17 at 03:30 Morphine Sulfate (morphine) 2 mg Q4H PRN IV PAIN LEVEL 7-10 Last administered on 01/19/17 10:30; Admin Dose 2 MG; Start 01/12/17 at 03:30 Magnesium Hydroxide (Milk Of Mag) 30 ml DAILY PRN PO CONSTIPATION; Start at 03:30 Carisoprodol (Soma) 350 mg Q8 PRN PO MUSCLE SPASMS Last administered on 14:21; Admin Dose 350 MG; Start 01/12/17 at 03:30 Cinacalcet (Sensipar) 30 mg DAILY PO Last administered on 01/19/17 10:02; Admin Dose 30 MG; Start 01/12/17 at 09:00 Montelukast Sodium (Singulair) 10 mg QPM PO Last administered on 01/18/17 21:24 ; Admin Dose 10 MG; Start 01/12/17 at 21:00 Sucralfate (Carafate) 1 gm QID PO Last administered on 01/19/17 12:20; Admin Dose 1 GM; Start 01/12/17 at 09:00 Salmeterol Xinafoate/ Fluticasone (Advair 250/50 Diskus) 1 inh BID INH Last administered on 01/19/17 10:02; Admin Dose 1 INH; Start 01/12/17 at 11:00 Miscellaneous Information 1 ea NOTE XX ; Start 01/12/17 at 04:00 Glucose (Glutose) 15 gm Q15M PRN PO DECREASED GLUCOSE Last administered on 04:32; Admin Dose 15 GM; Start 01/12/17 at 04:00 Glucose (Glutose) 22.5 gm Q15M PRN PO DECREASED GLUCOSE; Start 01/12/17 at 04: 00 Dextrose (D50w Syringe) 25 ml Q15M PRN IV DECREASED GLUCOSE Last administered on 01/17/17 04:57; Admin Dose 25 ML; Start 01/12/17 at 04:00 Dextrose (D50w Syringe) 50 ml Q15M PRN IV DECREASED GLUCOSE Last administered on 01/17/17 12:29; Admin Dose 50 ML; Start 01/12/17 at 04:00 Glucagon (Glucagen) 1 mg Q15M PRN IM DECREASED GLUCOSE; Start 01/12/17 at 04:00 Glucose (Glutose) 15 gm Q15M PRN BUCCAL DECREASED GLUCOSE; Start 01/12/17 at 04 :00 [facility] This patient sexton... PRN PRN XX WOUND CARE; Start 01/12/17 at 04:30 Sodium Hypochlorite (Dakin'S (1/4 Strength)) 1 applic BID IRR Last administered on 01/19/17 10:06; Admin Dose 1 APPLIC; Start 01/12/17 at 13:00 IV Flush (NS 10 ml) 10 ml PRN PRN IV IV PROTOCOL; Start 01/12/17 at 18:00 Lorazepam (Ativan) 1 mg Q3H PRN IV anxiety Last administered on 01/19/17 12:20 ; Admin Dose 1 MG; Start 01/13/17 at 22:30 Amikacin Sulfate (Amikacin Iv Per Pharmacy) AMIKACIN PER PHARMACY NOTE XX ; Start 01/14/17 at 11:30 Atorvastatin Calcium 20 mg 20 mg DAILY@21 PO Last administered on 01/18/17 21: 24; Admin Dose 20 MG; Start 01/14/17 at 21:00 Linezolid (Zyvox 600mg/D5W (Pmx)) 300 ml @ 300 mls/hr Q12 IVPB Last administered on 01/19/17 11:24; Admin Dose 300 MLS/HR; Start 01/15/17 at 17:00 Diagnostic Test (Pha) (Accu-Chek) 1 ea 02 XX ; Start 01/18/17 at 02:00 Insulin Detemir (Levemir) 15 unit QHS@20 SC Last administered on 01/18/17 21:32 ; Admin Dose 15 UNIT; Start 01/17/17 at 20:00 Oxycodone/ Acetaminophen (Percocet (5/ 325)) 1 tab Q4H PRN PO PAIN Last administered on 01/19/17 11:29; Admin Dose 1 TAB; Start 01/18/17 at 00:30 Pantoprazole (Protonix Tab) 40 mg BID@06,18 PO ; Start 01/19/17 at 18:00 Metoprolol Tartrate (Lopressor) 25 mg BID PO ; Start 01/19/17 at 21:00 JEWELS BOWERS NP Jan 19, 2017 16:51
--- NOTE | 2017-01-19 16:56 | PN ---
Date/Time of Note Date/Time of Note DATE: 01/19/17 TIME: 16:45 Assessment/Plan Lines/Catheters IV Catheter Type (from [facility]): PICC Line Whitaker in Place (from [facility]): No Assessment/Plan Chief Complaint/Hosp Course 1. Bilateral upper thighs and right flank wounds: 2/2 pressure from immobility; atherosclerosis but not flow limiting (previous records); left thigh s/p wound vac; right thigh s/p debridement -debridement prn -local wound care with dakin's twice daily; continue in half-way -offloading and turning frequently -specialty mattress -abx per sensitivity 2.Septic shock: multifactorial: 2/2 #1 + anemia: off pressors: resolved -supportive -as above 3. Normocytic hypochromic anemia: hx of gi bleed esophagitis, gastritis; s/p prbc transfusion; S/p egd: gastric ulcers: h/h stable -monitor and transfuse prn -ppi -per gi 4. Leukocytosis -as above 5. Hyponatremia: Improved -judicious fluids 6. ESRD with HD -per nephro 7. Hypoalbuminemia: likely 2/2 malnutrition + inflammation -supportive -optimize nutrition 8. Coagulopathy: on Eliquis outpatient -correct and further workup per medical team 9. Venous stasis dermatitis 10. Diabetes -blood sugar optimization 11. Atrial fibrillation: controlled rate; off amio -per cardiology 12. History of falls -PT as patient condition permits -fall precautions 13. Morbidly Obese -diet and physical modification 14. CHF: -diuresis and HD Thank you. Patient seen and examined in collaboration with Dr. Kenney Forrester. Problems: Subjective 24 Hr Interval Summary HD ongoing. Tolerating dialysis well. No fevers, chills, sob cp, palpitations, n /v/d/dysuria, hematemesis, hematochezia or melena, excessive wound drainage. Tolerating oral diet. Exam/Review of Systems Vital Signs Vitals Vital Signs Date Time Temp Pulse Resp B/P Pulse Ox O2 Delivery O2 Flow Rate FiO2 01/19/17 14:46 97.6 106 18 118/69 97 01/18/17 20:00 Nasal Cannula 2.0 01/18/17 15:01 21 Intake and Output 01/18/17 01/18/17 01/19/17 15:00 23:00 07:00 Intake Total 651.4 ml 1000 ml 850 ml Balance 651.4 ml 1000 ml 850 ml Exam Free Text/Dictation Constitutional: awake and conversant Psych: anxiety, No nl mood/affect Head: atraumatic, normocephalic Eyes: nl lids, nl sclera ENMT: No nl lips & teeth (missing teeth) Neck: non-tender, supple Respiratory: diminished Cardiovascular: irregular rate and rhythm; Gastrointestinal: non-tender, other (obese), soft Musculoskeletal: No nl gait and stance Extremities: No edema, No normal pulses Neurological: nl speech, nl strength Skin: other (wounds: Right thigh/trochanter area with areas of necrotic tissue and slough, improved drainage, odor & periwound erythema; left thigh: wound bed with slough, min drainage) Results Result Diagram: 01/19/1760501/19/17605 JUSTIN FOX NP Jan 19, 2017 16:56
[2017-01-19] MEDS ORDERED: PANTOPRAZOLE (EC) 40 MG TAB PO SCH (18:00)
[2017-01-19] MEDS ORDERED: TIOT18CA INHALATION (18:50)
[2017-01-19] MEDS ORDERED: METOPROLOL 25 MG TAB PO SCH (21:00)
== END 2017-01-19 20:00 | DRG 871 ==
LOC: E/R 00:07 → ICU 04:33 → MS4 01-16 11:56 → PP2 01-18 19:51
PROVIDERS: ADMIT Internal Medicine; ATTEND Internal Medicine
PROC: 02HV33Z Insertion of Infusion Device into Superior Vena Cava, Percutaneous Approach (ICD-10-PCS; principal; 2017-01-12)
PROC: 30243N1 Transfusion of Nonautologous Red Blood Cells into Central Vein, Percutaneous Approach (ICD-10-PCS; 2017-01-12)
PROC: 5A1D60Z (ICD-10-PCS; 2017-01-13)
PROC: 0DJ08ZZ Inspection of Upper Intestinal Tract, Via Natural or Artificial Opening Endoscopic (ICD-10-PCS; 2017-01-14)
PROC: 30243K1 Transfusion of Nonautologous Frozen Plasma into Central Vein, Percutaneous Approach (ICD-10-PCS; 2017-01-14)
DX: A41.9 Sepsis, unspecified organism (principal); J18.9 Pneumonia, unspecified organism; R65.21 Severe sepsis with septic shock; I13.2 Hypertensive heart and chronic kidney disease with heart failure and with stage 5 chronic kidney disease, or end stage renal disease; N18.6 End stage renal disease; E11.22 Type 2 diabetes mellitus with diabetic chronic kidney disease; D62 Acute posthemorrhagic anemia; I50.9 Heart failure, unspecified; Z68.42 Body mass index [BMI] 45.0-49.9, adult; E87.1 Hypo-osmolality and hyponatremia; K92.2 Gastrointestinal hemorrhage, unspecified; L03.90 Cellulitis, unspecified; I48.2 Chronic atrial fibrillation; K31.9 Disease of stomach and duodenum, unspecified; K25.9 Gastric ulcer, unspecified as acute or chronic, without hemorrhage or perforation; K44.9 Diaphragmatic hernia without obstruction or gangrene; L89.899 Pressure ulcer of other site, unspecified stage; Y95 Nosocomial condition; E66.01 Morbid (severe) obesity due to excess calories; T85.898A Other specified complication of other internal prosthetic devices, implants and grafts, initial encounter; Y92.89 Other specified places as the place of occurrence of the external cause; Y83.8 Other surgical procedures as the cause of abnormal reaction of the patient, or of later complication, without mention of misadventure at the time of the procedure; E83.52 Hypercalcemia; I87.2 Venous insufficiency (chronic) (peripheral); E88.09 Other disorders of plasma-protein metabolism, not elsewhere classified; J44.9 Chronic obstructive pulmonary disease, unspecified; B96.5 Pseudomonas (aeruginosa) (mallei) (pseudomallei) as the cause of diseases classified elsewhere; I25.10 Atherosclerotic heart disease of native coronary artery without angina pectoris; Z99.2 Dependence on renal dialysis; Z79.01 Long term (current) use of anticoagulants; Z79.4 Long term (current) use of insulin; Z91.81 History of falling
CPT/HCPCS: 36415; 36430; 36569; 36600; 70450; 71010; 76937; 80048; 80053; 80061; 80202; 80306; 82140; 82550; 82553; 82803; 82962; 83036; 83605; 84484; 85014; 85018; 85025; 85610; 85730; 86850; 86900; 86901; 86920; 87040; 87070; 87081; 90935; 93005; 94640; C9113; J0278; J0282; J1815; J2060; J2185; J2270; J3370; J7030; J7040; J7042; J7050; J7060; P9016; P9059

== ENCOUNTER 2017-03-08 12:15 | Inpatient (IN) | payer OTHER ==
[~2017-03-08] VITALS: Ht 162.6 cm; Wt 74.0 kg
[~2017-03-08 12:15] MED LIST changes: +APIX5TAB PO; +BISA-57 PO; +CARI350T PO; +CRAN425C2 PO; +DILT120C10 PO; +IPRA3AMP INHALATION; +METO-319 PO; -METO50TA16 PO; +NICO1PAT6 TD; +ONDA-43 PO; +OXYC-380 PO; +PANT40TA4 PO; +POLY17PO6 PO; +PYRI50TA80 PO; +SUCR1TAB56 PO
--- NOTE | 2017-03-08 12:32 | ERD ---
ER Documentation Chief Complaint Chief Complaint Altered level consciousness HPI The patient is a 61-year-old female, presenting to the ER because of altered level of consciousness today, exact time is unknown. She is unable to provide any history, the history is obtained from the computational sciences professor in the medical record. She did not have dialysis the last 2 times, her last dialysis was Tuesday last week, she is supposed to have with Tuesday, and Tuesday. Accu-Chek was 190 by EMS Past medical history: History of hypotension, diabetes mellitus, chronic kidney disease, history of CHF, peripheral vascular disease, diabetes mellitus, anxiety , depression, GERD, chronic pain syndrome, COPD, schizophrenia, atrial fibrillation, psychosis, dyslipidemia Past surgical history: Left upper extremity thrombectomy ROS All systems reviewed and are negative except as per history of present illness. Medications Home Meds Reported Medications Mineral Oil* (Fleet* Mineral Oil Enema) 133 Ml Oil, 133 ML MI NEEDED Y for CONSTIPATION, ENEMA 03/08/17 Magnesium Hydroxide* (Milk Of Magnesia*) 400 Mg/5 Ml Oral.susp, 30 ML PO DAILY, ML 03/08/17 Docusate Sodium* (Colace*) 100 Mg Capsule, 200 MG PO DAILY, #30 CAP 03/08/17 Pantoprazole* (Protonix*) 40 Mg Tablet.dr, 40 MG PO DAILY, TAB 03/08/17 Cranberry Extract (Cranberry) 425 Mg Capsule, 425 MG PO DAILY, CAP 03/08/17 Lorazepam* (Lorazepam*) 1 Mg Tablet, 1 MG PO BID Y for ANXIETY, #30 TAB 03/08/17 Olanzapine* (Zyprexa*) 5 Mg Tablet, 5 MG PO BID, #30 TAB 03/08/17 Apixaban* (Eliquis*) 2.5 Mg Tablet, 2.5 MG PO BID, TAB 03/08/17 Caloric Supplement (Benecalorie) 7.5 Kcal/1 Ml Liquid, 7.5 KCAL PO BID 03/08/17 Digoxin* (Digitek*) 125 Mcg Tablet, 0.125 MG PO DAILY, TAB HOLD AP<60 03/08/17 Levothyroxine Sodium* (Levothyroxine Sodium*) 25 Mcg Tablet, 25 MCG PO BEFORE BREAKFAST, #30 TAB 03/08/17 Metoprolol Tartrate* (Lopressor*) 25 Mg Tablet, 25 MG PO BID, #60 TAB HOLD IF SBP<110 HR<60 03/08/17 Atorvastatin Calcium* (Atorvastatin Calcium*) 20 Mg Tablet, 20 MG PO QHS, #30 TAB 03/08/17 Carisoprodol* (Soma*) 350 Mg Tablet, 350 MG PO Q8 Y for MUSCLE SPASMS, TAB 01/12/17 Bisacodyl* (Dulcolax*) 5 Mg Tablet.dr, 10 MG PO DAILY Y for CONSTIPATION, TAB 01/12/17 Sucralfate* (Carafate*) 1 Gm Tab, 1 GM PO AC MEALS AND BEDTIME, TAB 01/12/17 Polyethylene Glycol* (Miralax*) 17 Gm Powd.pack, 17 GM PO BID, #60 PACKET 01/12/17 Nicotine* (Nicotine* Patch) 21 mg/day Patch, 1 EACH TD DAILY, PATCH 01/12/17 Montelukast Sodium* (Montelukast Sodium*) 10 Mg Tablet, 10 MG PO QHS, #30 TAB 09/09/16 Zolpidem Tartrate* (Zolpidem Tartrate*) 5 Mg Tablet, 5 MG PO QHS Y for INSOMNIA , #30 TAB 09/09/16 Cinacalcet* (Sensipar*) 30 Mg Tab, 30 MG PO DAILY, TAB 12/19/15 Metoclopramide* (Reglan*) 5 Mg Tablet, 5 MG PO BID, TAB 12/19/15 Discontinued Reported Medications Tiotropium [place]* (Spiriva*) 18 Mcg Cap.w.dev, 1 CAP INHALATION DAILY, #30 CAP 01/19/17 Diltiazem Hcl* (Cardizem SR*) 120 Mg Cap.sr.12h, 120 MG PO Q12, CAP 01/12/17 Oxycodone Hcl-Acetaminophen* (Endocet*) 10-325 Mg Tablet, 1 TAB PO Q6H Y for PAIN LEVEL 6-10, TAB 01/12/17 Ipratropium-Albuterol (Ipratropium-Albuterol) 0.5-3 Mg/3 Ml Ampul.neb, 3 ML INHALATION Q6, #30 VIAL 01/12/17 Apixaban* (Eliquis*) 5 Mg Tablet, 5 MG PO BID, TAB 01/12/17 Ondansetron Hcl* (Zofran*) 4 Mg Tab, 4 MG PO Q6H Y for NAUSEA AND OR VOMITING, TAB 01/12/17 Cranberry Extract (Cranberry) 425 Mg Capsule, 425 MG PO DAILY, CAP 01/12/17 Pyridoxine Hcl (Vitamin B6) 50 Mg Tab, 50 MG PO DAILY, TAB 01/12/17 Pantoprazole* (Pantoprazole*) 40 Mg Tablet.dr, 40 MG PO BID, TAB TAKE 1TAB PO AT 0630 AM and 1630PM 01/12/17 Carisoprodol* (Carisoprodol*) 350 Mg Tablet, 350 MG PO Q8 Y for MUSCLE SPASMS, TAB 11/11/16 Tiotropium [place]* (Spiriva*) 18 Mcg Cap.w.dev, 1 CAP INHALATION DAILY, #30 CAP 09/09/16 Calcium Acetate* (Phoslo*) 667 Mg Tablet, 667 MG PO WITH MEALS, TAB TAKE 4 TAB 09/09/16 Pyridoxine Hcl* (Pyridoxine Hcl*) 50 Mg Tablet, 50 MG PO DAILY, TAB 09/09/16 Oxycodone HCl/Acetaminophen (Percocet 10-325 mg Tablet) 1 Each Tablet, 1 EACH PO Q6 Y for PRN, TAB 09/09/16 Budesonide-Formoterol Fumarate* (Symbicort*) 160-4.5 Hfa.aer.ad, 2 PUFF INHALATION BID, #1 EACH 12/19/15 Furosemide* (Furosemide*) 80 Mg Tablet, 80 MG PO DAILY, #30 TAB 12/19/15 Atorvastatin* (Atorvastatin*) 40 Mg Tablet, 40 MG PO QHS, #30 TAB 12/19/15 Amlodipine Besylate* (Amlodipine Besylate*) 5 Mg Tablet, 5 MG PO DAILY, #30 TAB 12/19/15 Losartan Potassium* (Losartan Potassium*) 50 Mg Tablet, 50 MG PO BID, TAB 12/19/15 Diltiazem Hcl* (Cardizem SR*) 60 Mg Capsr, 60 MG PO Q12, #60 CAP 12/19/15 Metoprolol Succinate* (Toprol XL*) 50 Mg Tab.er.24h, 50 MG PO BID, #30 TAB 12/19/15 Aspirin* (Aspirin* Chew) 81 Mg Tab.chew, 81 MG PO DAILY, TAB.CHEW 12/19/15 Albuterol Sulfate* (Proair HFA*) 8.5 Gm Hfa.aer.ad, 2 PUFF INH Q4H Y for WHEEZING AND SOB, INH 06/12/14 Discontinued Scripts Insulin Aspart* (Novolog Insulin Pen*) 100 Unit/Ml Soln, 0 UNIT SC WITH MEALS BEDTIME for 30 Days Prov:CHIP MUNSON 12/17/16 Collagenase* (Santyl*) 30 Gm Oint..gm., 1 APPLIC TOP DAILY for 30 Days Prov:CHIP MUNSON 12/17/16 Insulin Detemir (Levemir Flextouch) 100 Unit/1 Ml Insuln.pen, 30 UNIT SC QHS@20 for 30 Days Prov:CHIP MUNSON 12/17/16 Sucralfate (Carafate) 1 Gm Tablet, 1 GM PO QID for 15 Days, TAB Prov:CHIP MUNSON 12/17/16 Pantoprazole* (Protonix* IV) 40 Mg Soln, 40 MG IV BID@06,18 for 30 Days Prov:CHIP MUNSON 12/17/16 Epoetin Hang (Epogen) 10,000 Units/Ml Soln, 96744 UNITS SC TuThSa@17 for 30 Days Prov:CHIP MUNSON 12/17/16 Nicotine* (Nicotine* Patch) 21 mg/day Patch, 1 PATCH TRANSDERM DAILY for 30 Days Prov:CHIP MUNSON 12/17/16 Allergies Allergies: Coded Allergies: Penicillins (Verified Allergy, Severe, ALL OVER BODY RASH, 03/08/17) ciprofloxacin (Verified Allergy, Severe, TENDONITIS, 03/08/17) PMhx/Soc History of Surgery: Yes (C SECTION, TUBAL LIGATION) Anesthesia Reaction: No Hx Neurological Disorder: No Hx Respiratory Disorders: Yes (COPD) Hx Cardiac Disorders: Yes (HTN, HYPERCHOLESTEROL) Hx Psychiatric Problems: No Hx Miscellaneous Medical Probl: Yes Hx Alcohol Use: No Hx Substance Use: No Hx Tobacco Use: No Physical Exam Vitals Vital Signs Date Time Temp Pulse Resp B/P Pulse Ox O2 Delivery O2 Flow Rate FiO2 03/08/17 14:15 98 14 90/43 100 Nasal Cannula 03/08/17 13:11 Nasal Cannula 3 03/08/17 13:11 98.0 115 12 73/46 100 Physical Exam Const: No acute distress. Head: Atraumatic. Eyes: Normal Conjunctiva. ENT: Normal External Ears, Nose and Mouth. Neck: Full range of motion. No meningismus. Resp: Clear to auscultation bilaterally. Cardio: Irregularly irregular Abd: Soft, non distended, normal bowel sounds,Vague and diffuse abdominal tenderness, no rigidity, rebound, CVA tenderness Skin: No petechiae or rashes. Back: No midline or flank tenderness. Ext: No cyanosis, or edema.Multiple skin lesions on bilateral heel, right upper extremity, left lower extremity Neur: Limited due to her condition, respond to pain Psych: Unable to perform due to her condition Result Diagram: 03/08/17 1240 03/08/17 1240 Results 24 hrs Laboratory Tests Test 03/08/17 12:40 03/08/17 13:00 03/08/17 15:40 White Blood Count 27.210^3/ul Red Blood Count 3.8810^6/ul Hemoglobin 11.1g/dl Hematocrit 35.5% Mean Corpuscular Volume 91.5fl Mean Corpuscular Hemoglobin 28.6pg Mean Corpuscular Hemoglobin Concent 31.3g/dl Red Cell Distribution Width 23.3% Platelet Count 60430^3/UL Mean Platelet Volume 9.5fl Neutrophils % % Segmented Neutrophils % (Manual) 88% Lymphocytes % % Lymphocytes % (Manual) 6% Monocytes % % Monocytes % (Manual) 5% Eosinophils % % Basophils % % Basophils % (Manual) 1% Nucleated Red Blood Cells % 0.7/100WBC Neutrophils # 10^3/ul Absolute Lymphocytes (Manual) 1.610^3/ul Lymphocytes # 10^3/ul Monocytes # 10^3/ul Absolute Monocytes (Manual) 1.310^3/ul Eosinophils # 10^3/ul Basophils # 10^3/ul Basophils # (Manual) 0.210^3/ul Nucleated Red Blood Cells # 10^3/ul Platelet Morphology Comment @See below Polychromasia 1+ Poikilocytosis 1+ Anisocytosis 2+ Macrocytosis 2+ Prothrombin Time 26.8Sec Prothrombin Time Ratio 2.1 INR International Normalized Ratio 2.44 Activated Partial Thromboplast Time 94.2Sec Sodium Level 145mmol/L Potassium Level 3.3mmol/L Chloride Level 110mmol/L Carbon Dioxide Level 21mmol/L Anion Gap 17 Blood Urea Nitrogen 50mg/dl Creatinine 6.82mg/dl Glucose Level 94mg/dl Lactic Acid Level 1.4mmol/L 0.9mmol/L Calcium Level 7.9mg/dl Phosphorus Level 2.3mg/dl Magnesium Level 2.1mg/dl Total Bilirubin 0.0mg/dl Direct Bilirubin 0.00mg/dl Indirect Bilirubin 0.0mg/dl Aspartate Amino Transf (AST/SGOT) 10IU/L Alanine Aminotransferase (ALT/SGPT) 23IU/L Alkaline Phosphatase 283IU/L Troponin I 0.156ng/ml Total Protein 4.7g/dl Albumin 2.2g/dl Globulin 2.50g/dl Albumin/Globulin Ratio 0.88 Urine Color JUAN DAVID Urine Clarity SLIGHTLY CLOUDY Urine pH 5.0 Urine Specific [place] 1.018 Urine Ketones NEGATIVEmg/dL Urine Nitrite NEGATIVEmg/dL Urine Bilirubin NEGATIVEmg/dL Urine Urobilinogen NEGATIVEmg/dL Urine Leukocyte Esterase 2+Trudy/ul Urine Microscopic RBC 37/HPF Urine Microscopic WBC 138/HPF Urine Squamous Epithelial Cells FEW/HPF Urine Bacteria FEW/HPF Urine Yeast (Budding) MANY/HPF Urine Hemoglobin 3+mg/dL Urine Glucose NEGATIVEmg/dL Urine Total Protein 2+mg/dl Current Medications Medications (Trade) Dose Ordered Sig/Danielle Route PRN Reason Start Time Stop Time Status Last Admin Dose Admin Lidocaine 5 ml 5 ml ONCE ONCE SC 03/08/17 13:00 03/08/17 13:01 DC Albumin Human 100 ml @ 100 mls/hr Q1H IV 03/08/17 13:30 03/08/17 15:29 DC 03/08/17 14:55 Vancomycin HCl 250 ml @ 125 mls/hr ONCE IVPB 03/08/17 15:00 03/08/17 16:59 DC 03/08/17 15:41 Meropenem/Sodium Chloride (Merrem 500mg/50 ml(Pmx)) 50 ml @ 100 mls/hr ONCE STAT IVPB 03/08/17 14:33 03/08/17 15:02 DC 03/08/17 15:09 Aspirin (Aspirin) 300 mg ONCE ONCE MI 03/08/17 15:00 03/08/17 15:01 DC 03/08/17 15:09 Procedures/MDM EKG: Read by emergency physician Rate/Rhythm: Atrial fibrillation 96 beats/min QRS, ST, T-waves: No ST elevation, no T inversion, Septal Q waves, inferolateral ST and T abnormality Impression: Abnormal EKG [place] [address] Radiology Main Line: [phone] DIAGNOSTIC IMAGING REPORT Patient: MALA HOLMAN : 1955 Age: 61 Sex: F MR #: [id number] DOS: 03/08/17 1233 Ordering MD: DENYS LEE MD Location: E/R Room/Bed: PROCEDURE: Chest x-ray CLINICAL INDICATION: Shortness of breath TECHNIQUE: Chest single view COMPARISON: 01/13/2017 FINDINGS: There is stable moderate cardiomegaly and mild atherosclerotic aortic calcification. Pulmonary vessels are mildly prominent. There is patchy left lower lobe and bilateral perihilar infiltrate. This may represent edema or pneumonia. There is trace left pleural effusion. Bones are osteopenic IMPRESSION: 1. Stable moderate cardiomegaly and atherosclerotic aortic calcification. 2. Mild interstitial vascular congestion. 3. Superimposed on this are more patchy alveolar densities in both perihilar location and left lower lobe which may represent superimposed pneumonia. 4. Trace left pleural effusion RPTAT: HH .Dameon Pantoja MD, MD Date Time Electronically viewed and signed by .Dameon Pantoja MD, MD on 03/08/2017 13:32 .W/ CC: DENYS LEE MD [place] [address] Radiology Main Line: [phone] DIAGNOSTIC IMAGING REPORT Patient: MALA HOLMAN : 1955 Age: 61 Sex: F MR #: [id number] DOS: 03/08/17 1233 Ordering MD: DENYS LEE MD Location: E/R Room/Bed: PROCEDURE: CT Brain without contrast. CLINICAL INDICATION: Altered level of consciousness. Possible sepsis. TECHNIQUE: A CT of the brain was performed on a multidetector CT scanner utilizing axial sections from the skull base through the vertex without contrast. Images were reviewed on a high-resolution PACS workstation. Exam CTDI = 44.9 mGy and the DLP = 720.23 mGy-cm. One or the following dose reduction techniques were used: -Automated exposure control. -Adjustment of the mA and/or KV according to patient's size. -Use of iterative reconstruction technique COMPARISON: CT the range of 01/12/2017. FINDINGS: Mild diffuse cerebral and cerebellar atrophy is present. There is proportionate dilatation of the ventricular system and sulci in a symmetric fashion. There is prominence of the extraaxial spaces secondary to atrophy. There is no evidence of intracranial hemorrhage, mass effect or midline shift. No abnormal intra-axial or extra-axial fluid collections are seen. The density of the brain is normal and the munguia/white matter differentiation is well preserved. Mild patchy diffuse deep white matter microangiopathic ischemic change is seen. There is mucosal thickening in the sphenoid sinus on the left. The osseous calvarium appears intact.. Vascular calcifications are identified. IMPRESSION: 1. No evidence of acute intracranial pathology. 2. Age-related volume loss and small vessel ischemic changes. 3. Intracranial atherosclerosis. 4. Minimal mucosal thickening in the sphenoid sinus on the left. RPTAT: [facility] Physician Malini Date Time Electronically viewed and signed by Physician Malini on 03/08/2017 14: 01 JH/ CC: DENYS LEE MD [place] [address] Radiology Main Line: [phone] DIAGNOSTIC IMAGING REPORT Patient: MALA HOLMAN : 1955 Age: 61 Sex: F MR #: [id number] DOS: 03/08/17 1233 Ordering MD: DENYS LEE MD Location: E/R Room/Bed: PROCEDURE: CT Abdomen and Pelvis without contrast. CLINICAL INDICATION: Sepsis. Abdominal distension. TECHNIQUE: CT scan of the abdomen and pelvis without contrast was performed on a multidetector high-resolution CT scanner. The patient was scanned without intravenous contrast. Coronal and sagittal reformatted images were obtained from the axial source images. Images were reviewed on a high-resolution PACS workstation. The total exam CTDI equals 17.61 mGy and the total exam DLP equals 1039.82 mGy-cm. One or more of the following dose reduction techniques were used: Automated exposure control. Adjustment of the mA and/or kV according to patient size. Use of iterative reconstruction technique. COMPARISON: None FINDINGS: CT abdomen: The lung bases are remarkable for small bilateral pleural effusions with partial atelectasis of the lower lobes. There is left basilar consolidation suspicious for superimposed pneumonia. The heart size is enlarged with small pericardial effusion. Dense coronary artery calcifications are present. The liver is normal in size and density without focal mass or intrahepatic biliary dilatation. The spleen is normal in size and homogeneous in density. The stomach is partially collapsed, but is grossly unremarkable. The pancreas as visualized is normal. The gallbladder is unremarkable. There is no evidence for biliary dilatation. The adrenal glands are symmetric and normal. 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 There is no urolithiasis. There is no hydronephrosis. The aorta is of normal caliber. Aortic vascular calcifications are present. There is no retroperitoneal lymphadenopathy. The kandi hepatis region is clear. The bowel and mesentery, as visualized, are equally unremarkable. Fat- containing small periumbilical hernia is noted. There is diffuse subcutaneous edema. CT pelvis: The small bowel loops situated within the pelvis are unremarkable. The pelvic sidewalls and inguinal regions are clear. The sigmoid colon and rectum are remarkable for circumferential wall thickening of the distal sigmoid colon and the rectum suggestive of proctocolitis. The uterus is absent. The urinary bladder is decompressed with Whitaker catheter in place.. No mass, lymphadenopathy , or free fluid is seen. The surrounding osseous structures are remarkable for degenerative spondylosis of the spine. No osteolytic or osteoblastic lesion is detected. Skin and subcutaneous defect is seen along the lateral proximal thigh. IMPRESSION: 1. Circumferential wall thickening of the rectum and the distal sigmoid colon suggesting proctocolitis. 2. Atrophic horseshoe kidney. 3. Diffuse atherosclerosis. 4. Cardiomegaly. 5. Small bilateral pleural effusions with partial atelectasis. Focal consolidation in the left lung base concerning for superimposed pneumonia. 6. Anasarca edema. 7. Soft tissue defect involving the skin and subcutaneous fat along the lateral right proximal thigh. RPTAT: BB .Keshia Barahona MD, MD Date Time Electronically viewed and signed by .Keshia Barahona MD, on 03/08/2017 14:35 .O/ CC: DENYS LEE MD MEDICAL MAKING DECISION: Patient is a 61-year-old female, presenting with acute sepsis, acute cystitis, acute pneumonia, acute proctocolitis, acute hypokalemia , acute troponin elevation. She had a catheterized urine specimen obtained in the ER, he was treated with albumin 25% to 200 mL IV due to hypotension, vancomycin IV, meropenem IV for acute sepsis and aspirin 300 mg suppository for acute elevation with good response The differential diagnoses considered include but are not limited to pneumonia, cystitis, pyelonephritis, diverticulitis, appendicitis. Critical Care: Time: 35 minutes excluding all billable procedures. Treatments/Evaluations: Close monitoring and treatment of unstable vital signs, cardiorespiratory, and neurologic status, while maintaining tight balance of fluid, respiratory, and cardiac interventions. Departure Diagnosis: Primary Impression: Sepsis Additional Impressions: UTI (urinary tract infection) Pneumonia Proctocolitis Elevated troponin Hypokalemia Condition: Serious Comments I discussed the findings with the patient. I discussed the patient with The on- call hospitalist Dr. Diaz at 2:50 PM who was made aware of the lab, the treatment, the patient condition. The patient is admitted to Telemetry Disclaimer: Inadvertent spelling and grammatical errors are likely due to EHR/ dictation software use and do not reflect on the overall quality of patient care. Also, please note that the electronic time recorded on this note does not necessarily reflect the actual time of the patient encounter. DENYS LEE MD Mar 08, 2017 12:32
[2017-03-08] MEDS ORDERED: LIDOCAINE 1% (MPF) 5 ML VIAL SC ONE (13:00)
[2017-03-08] MEDS: ALBUMIN HUMAN 25% 100 ML IV SCH ×2 (13:27→14:55)
--- NOTE | 2017-03-08 13:32 | RADRPT ---
PROCEDURE: Chest x-ray CLINICAL INDICATION: Shortness of breath TECHNIQUE: Chest single view COMPARISON: 01/13/2017 FINDINGS: There is stable moderate cardiomegaly and mild atherosclerotic aortic calcification. Pulmonary vesse ls are mildly prominent. There is patchy left lower lobe and bilateral perihilar infiltrate. This ma y represent edema or pneumonia. There is trace left pleural effusion. Bones are osteopenic IMPRESSION: 1. Stable moderate cardiomegaly and atherosclerotic aortic calcification. 2. Mild interstitial vascular congestion. 3. Superimposed on this are more patchy alveolar densities in both perihilar location and left low er lobe which may represent superimposed pneumonia. 4. Trace left pleural effusion RPTAT: HH .Dameon Pantoja MD, MD Date Time Electronically viewed and signed by .Dameon Pantoja MD, on 03/08/2017 13:32 .W/
[2017-03-08] MEDS ORDERED: ATOR20TA38 PO (13:40)
[2017-03-08] MEDS ORDERED: METO25TA4 PO (13:43)
[2017-03-08] MEDS ORDERED: LEVO25TA53 PO (13:43)
[2017-03-08] MEDS ORDERED: DIGO125T PO (13:44)
[2017-03-08] MEDS ORDERED: CALO41.32 PO (13:45)
[2017-03-08] MEDS ORDERED: APIX2.5T PO (13:46)
[2017-03-08] MEDS ORDERED: LORA1TAB PO (13:48)
[2017-03-08] MEDS ORDERED: OLAN5TAB5 PO (13:48)
[2017-03-08] MEDS ORDERED: CRAN425C2 PO (13:49)
[2017-03-08] MEDS ORDERED: PANT40TA3 PO (13:55)
[2017-03-08] MEDS ORDERED: DOCU-144 PO (13:56)
[2017-03-08] MEDS ORDERED: MAGN400O4 PO (13:56)
[2017-03-08] MEDS ORDERED: MINE133E23 PR (14:01)
--- NOTE | 2017-03-08 14:01 | RADRPT ---
PROCEDURE: CT Brain without contrast. CLINICAL INDICATION: Altered level of consciousness. Possible sepsis. TECHNIQUE: A CT of the brain was performed on a multidetector CT scanner utilizing axial sections from the skull base through the vertex without contrast. Images were reviewed on a high-resolution [employer] workstation. Exam CTDI = 44.9 mGy and the DLP = 720.23 mGy-cm. One or the following dose reduction techniques were used: -Automated exposure control. -Adjustment of the mA and/or KV according to patient's size. -Use of iterative reconstruction technique COMPARISON: CT the range of 01/12/2017. FINDINGS: Mild diffuse cerebral and cerebellar atrophy is present. There is proportionate dilatation of the v entricular system and sulci in a symmetric fashion. There is prominence of the extraaxial spaces sec ondary to atrophy. There is no evidence of intracranial hemorrhage, mass effect or midline shift. N o abnormal intra-axial or extra-axial fluid collections are seen. The density of the brain is franki l and the munguia/white matter differentiation is well preserved. Mild patchy diffuse deep white matte r microangiopathic ischemic change is seen. There is mucosal thickening in the sphenoid sinus on th e left. The osseous calvarium appears intact.. Vascular calcifications are identified. IMPRESSION: 1. No evidence of acute intracranial pathology. 2. Age-related volume loss and small vessel ischemic changes. 3. Intracranial atherosclerosis. 4. Minimal mucosal thickening in the sphenoid sinus on the left. RPTAT: A[facility] Physician Malini Date Time Electronically viewed and signed by Physician Malini on 03/08/2017 14:01 GIBSON/
[2017-03-08] MEDS ORDERED: MEROPENEM 500MG/50 ML (PMX) 50 ML IVPB STA (14:33)
--- NOTE | 2017-03-08 14:35 | RADRPT ---
PROCEDURE: CT Abdomen and Pelvis without contrast. CLINICAL INDICATION: Sepsis. Abdominal distension. TECHNIQUE: CT scan of the abdomen and pelvis without contrast was performed on a multidetector hig h-resolution CT scanner. The patient was scanned without intravenous contrast. Coronal and sagittal reformatted images were obtained from the axial source images. Images were reviewed on a high-resol [employer] PACS workstation. The total exam CTDI equals 17.61 mGy and the total exam DLP equals 1039.82 m Gy-cm. One or more of the following dose reduction techniques were used: Automated exposure control. Adjustment of the mA and/or kV according to patient size. Use of iterative reconstruction technique. COMPARISON: None FINDINGS: CT abdomen: The lung bases are remarkable for small bilateral pleural effusions with partial atelectasis of the lower lobes. There is left basilar consolidation suspicious for superimposed pneumonia. The heart si ze is enlarged with small pericardial effusion. Dense coronary artery calcifications are present. The liver is normal in size and density without focal mass or intrahepatic biliary dilatation. The spleen is normal in size and homogeneous in density. The stomach is partially collapsed, but is henri ssly unremarkable. The pancreas as visualized is normal. The gallbladder is unremarkable. There is no evidence for biliary dilatation. The adrenal glands are symmetric and normal. There is an atro phic horseshoe kidney. There is no urolithiasis. There is no hydronephrosis. The aorta is of normal caliber. Aortic vascular calcifications are present. There is no retroperit kidd lymphadenopathy. The kandi hepatis region is clear. The bowel and mesentery, as visualized, are equally unremarkable. Fat-containing small periumbilical hernia is noted. There is diffuse subcu taneous edema. CT pelvis: The small bowel loops situated within the pelvis are unremarkable. The pelvic sidewalls and inguin al regions are clear. The sigmoid colon and rectum are remarkable for circumferential wall thickeni ng of the distal sigmoid colon and the rectum suggestive of proctocolitis. The uterus is absent. The urinary bladder is decompressed with Whitaker catheter in place.. No mass, lymphadenopathy, or free f luid is seen. The surrounding osseous structures are remarkable for degenerative spondylosis of t he spine. No osteolytic or osteoblastic lesion is detected. Skin and subcutaneous defect is seen al mukesh the lateral proximal thigh. IMPRESSION: 1. Circumferential wall thickening of the rectum and the distal sigmoid colon suggesting proctocoli tis. 2. Atrophic horseshoe kidney. 3. Diffuse atherosclerosis. 4. Cardiomegaly. 5. Small bilateral pleural effusions with partial atelectasis. Focal consolidation in the left lung base concerning for superimposed pneumonia. 6. Anasarca edema. 7. Soft tissue defect involving the skin and subcutaneous fat along the lateral right proximal thig h. RPTAT: BB .Keshia Barahona MD, MD Date Time Electronically viewed and signed by .Keshia Barahona MD, on 03/08/2017 14:35 .O/
[2017-03-08] MEDS ORDERED: VANCOMYCIN 1 GM (PMX) 250 ML IVPB SCH (15:00)
[2017-03-08] MEDS ORDERED: ASPIRIN 300 MG SUPP PR ONE (15:00)
[2017-03-08] MEDS ORDERED: ONDANSETRON 4 MG INJ IV PRN (17:30)
[2017-03-08] MEDS ORDERED: NACL 0.9% 3 ML SYG IV SCH (17:30)
[2017-03-08] MEDS ORDERED: ACETAMINOPHEN 325 MG TAB PO PRN (17:30)
--- NOTE | 2017-03-08 17:30 | HP ---
Date/Time of Note Date/Time of Note DATE: 03/08/17 TIME: 17:18 Assessment/Plan VTE Prophylaxis VTE Prophylaxis Intervention: heparin Lines/Catheters Urinary Cath still in place: No Assessment/Plan Chief Complaint/Hosp Course 1. Sepsis with acute metabolic encephalopathy secondary to UTI and/or proctocolitis Zosyn Follow-up on urine culture 2. End-stage renal disease with volume overload Consult patient's senior it security analyst Dr. Rolon 3. Chronic left lower extremity ulcer 4. Chronic A. fib 5. History of hypertension Hold home meds secondary to sepsis Prophylaxis: Heparin Problems: HPI/ROS Admit Date/Time Admit Date/Time March 08, 2017 Hx of Present Illness Patient is a 61-year-old female with a history of end-stage renal disease, chronic left lower extremity wound with wound VAC, A. fib, hypertension. Patient presents with altered mental status for an unknown period of time. Patient cannot provide any history at this time and history is obtained from previous medical records. Patient reportedly last got dialyzed with prior and supposed to receive dialysis Tuesday, and Tuesday. Patient blood sugar in the field was within normal limits, in the ED UA suggested a urinary tract infection. ROS Cannot obtain secondary to altered mental status PMH/Family/Social Past Medical History As per HPI Past Surgical History Past Surgical Hx: other Social History Smoking Status: Never smoker Drug Use: none Exam/Review of Systems Vital Signs Vitals Vital Signs Date Time Temp Pulse Resp B/P Pulse Ox O2 Delivery O2 Flow Rate FiO2 03/08/17 14:15 98 14 90/43 100 Nasal Cannula 03/08/17 13:11 3 03/08/17 13:11 98.0 Exam Psych: confusion Respiratory: clear to auscultation Cardiovascular: regular rate and rhythm Gastrointestinal: soft, No distended Musculoskeletal: No nl extremities to inspection Labs Result Diagram: 03/08/17 1240 03/08/17 1240 MICHAEL COULTER Mar 08, 2017 17:28
[2017-03-08] MEDS ORDERED: PIPER-TAZO 3.375 GM IV (PMX) 100 ML IVPB SCH (18:00)
[2017-03-08 19:49] VITALS: BP 98/56; RESP 19
[2017-03-08 20:41] VITALS: PULSE 90
[2017-03-08 21:02] VITALS: Ht 162.6 cm; Wt 74.0 kg
[2017-03-08] MEDS: HEPARIN 5,000 UNIT/0.5 ML VIAL SC SCH (21:58)
[2017-03-08] MEDS: morphine 2 MG INJ IV PRN (21:59)
[2017-03-08] MEDS: Metronidazole 500 MG in NS 100 ML IVPB SCH (22:05)
[2017-03-09] VITALS (19 sets, daily range): BP systolic 79–117; BP diastolic 53–72; PULSE 77–112; RESP 20
[2017-03-09] MEDS: morphine 2 MG INJ IV PRN ×2 (02:28→17:26)
[2017-03-09] MEDS: Metronidazole 500 MG in NS 100 ML IVPB SCH ×3 (05:22→22:02)
[2017-03-09] MEDS: HYDROCODONE/APAP (5/325) TAB PO PRN ×2 (05:22→20:45)
--- NOTE | 2017-03-09 07:35 | CONS ---
Date/Time of Note Date/Time of Note DATE: 03/09/17 TIME: 07:33 Assessment/Plan Assessment/Plan Chief Complaint/Hosp Course - ESRD - Sepsis - CAD/CHF - Anemia PLAN: Bedside dialysis today ( she is usually TTS ) Using 3K= Bath Monitor Labs AVF with still guanaco with some redness & PUS Will have VASCULAR for evaluation & removal of the guanaco IV antibiotics THANK YOU VCharlie TONEY Problems: Consultation Date/Type/Reason Admit Date/Time March 08, 2017 Date of Consultation: Mar 09, 2017 Type of Consultation: NEPHROLOGY Reason for Consultation ESRD Constitutional: chills, febrile Eyes: no complaints ENT: no complaints Respiratory: cough Cardiovascular: no complaints Gastrointestinal: pain Genitourinary: no complaints Musculoskeletal: no complaints Psychological: confusion Past Medical History Medical History: congestive heart failure, coronary artery disease, hypertension, renal disease Past Surgical History Past Surgical Hx: other Social History Alcohol Use: none Smoking Status: Former smoker Drug Use: none Exam/Review of Systems Vital Signs Vitals Vital Signs Date Time Temp Pulse Resp B/P Pulse Ox O2 Delivery O2 Flow Rate FiO2 03/09/17 07:15 98.0 82 20 108/58 97 03/08/17 18:49 Room Air 03/08/17 13:11 3 Intake and Output 03/08/17 03/08/17 03/09/17 15:00 23:00 07:00 Intake Total 0 ml Output Total 650 ml Balance -650 ml Exam Constitutional: oriented Psych: no complaints Head: normocephalic Eyes: nl conjunctiva Neck: supple Respiratory: crackles/rales Cardiovascular: edema, regular rate and rhythm, systolic murmur Gastrointestinal: soft Results Result Diagram: 03/08/17 1240 03/08/17 1240 Results 24 hrs Laboratory Tests Test 03/08/17 12:40 03/08/17 13:00 03/08/17 15:40 03/08/17 21:10 White Blood Count 27.2 #H Red Blood Count 3.88 #L Hemoglobin 11.1 #L Hematocrit 35.5 #L Mean Corpuscular Volume 91.5 Mean Corpuscular Hemoglobin 28.6 L Mean Corpuscular Hemoglobin Concent 31.3 L Red Cell Distribution Width 23.3 #H Platelet Count 399 # Mean Platelet Volume 9.5 Neutrophils % Segmented Neutrophils % (Manual) 88 H Lymphocytes % Lymphocytes % (Manual) 6 L Monocytes % Monocytes % (Manual) 5 Eosinophils % Basophils % Basophils % (Manual) 1 Nucleated Red Blood Cells % 0.7 H Neutrophils # Absolute Lymphocytes (Manual) 1.6 Lymphocytes # Monocytes # Absolute Monocytes (Manual) 1.3 H Eosinophils # Basophils # Basophils # (Manual) 0.2 H Nucleated Red Blood Cells # Pathologist Review (Hematology) YES Platelet Morphology Comment @See below Polychromasia 1+ Poikilocytosis 1+ Anisocytosis 2+ Macrocytosis 2+ Prothrombin Time 26.8 #H Prothrombin Time Ratio 2.1 INR International Normalized Ratio 2.44 Activated Partial Thromboplast Time 94.2 *H Sodium Level 145 H Potassium Level 3.3 L Chloride Level 110 Carbon Dioxide Level 21 Anion Gap 17 H Blood Urea Nitrogen 50 H Creatinine 6.82 H Glucose Level 94 Lactic Acid Level 1.4 0.9 1.2 Calcium Level 7.9 L Phosphorus Level 2.3 L Magnesium Level 2.1 Total Bilirubin 0.0 L Direct Bilirubin 0.00 Indirect Bilirubin 0.0 Aspartate Amino Transf (AST/SGOT) 10 L Alanine Aminotransferase (ALT/SGPT) 23 Alkaline Phosphatase 283 H Troponin I 0.156 *H Total Protein 4.7 L Albumin 2.2 L Globulin 2.50 Albumin/Globulin Ratio 0.88 Urine Color JUAN DAVID Urine Clarity SLIGHTLY CLOUDY A Urine pH 5.0 Urine Specific [place] 1.018 Urine Ketones NEGATIVE Urine Nitrite NEGATIVE Urine Bilirubin NEGATIVE Urine Urobilinogen NEGATIVE Urine Leukocyte Esterase 2+ H Urine Microscopic RBC 37 H Urine Microscopic WBC 138 H Urine Squamous Epithelial Cells FEW Urine Bacteria FEW A Urine Yeast (Budding) MANY A Urine Hemoglobin 3+ H Urine Glucose NEGATIVE Urine Total Protein 2+ H Medications Medications Current Medications Ondansetron HCl (Zofran Inj) 4 mg Q6H PRN IV NAUSEA AND/OR VOMITING; Start at 17:30 Acetaminophen (Tylenol Tab) 650 mg Q6H PRN PO PAIN LEVEL 1-3 OR FEVER; Start 03/08/17 at 17:30 Acetaminophen/ Hydrocodone Bitart ([place] (5/325)) 1 tab Q6H PRN PO MODERATE PAIN LEVEL 4-6 Last administered on 03/09/17t 05:22; Admin Dose 1 TAB; Start 03/08/17 at 17:30 Morphine Sulfate (morphine) 2 mg Q4H PRN IV SEVERE PAIN LEVEL 7-10 Last administered on 03/09/17 02:28; Admin Dose 2 MG; Start 03/08/17 at 17:30 Heparin Sodium (Porcine) 5000 unit 5,000 unit Q12 SC Last administered on 03/08 21:58; Admin Dose 5,000 UNIT; Start 03/08/17 at 21:00 Meropenem/Sodium Chloride 50 ml @ 100 mls/hr Q24H IVPB ; Start 03/09/17 at 14: 00 Metronidazole (Flagyl 500 Mg (Pmx)) 100 ml @ 100 mls/hr Q8 IVPB Last administered on 03/09/17 05:22; Admin Dose 100 MLS/HR; Start 03/08/17 at 22: 00 BECKY GAMBLE MD Mar 09, 2017 07:35
[2017-03-09] MEDS: HEPARIN 5,000 UNIT/0.5 ML VIAL SC SCH ×2 (10:37→21:06)
--- NOTE | 2017-03-09 11:49 | PN ---
Date/Time of Note Date/Time of Note DATE: 03/09/17 TIME: 11:45 Assessment/Plan VTE Prophylaxis VTE Prophylaxis Intervention: heparin Assessment/Plan Chief Complaint/Hosp Course 1. Sepsis with acute metabolic encephalopathy secondary to UTI and/or proctocolitis Zosyn Follow-up on urine culture 2. End-stage renal disease with volume overload Plan for dialysis today Patient's online marketing analyst Dr. Rolon has been consulted 3. Chronic left lower extremity ulcer 4. Chronic A. fib 5. History of hypertension Hold home meds secondary to sepsis Prophylaxis: Heparin Problems: Subjective 24 Hr Interval Summary Constitutional: disoriented Exam/Review of Systems Vital Signs Vitals Vital Signs Date Time Temp Pulse Resp B/P Pulse Ox O2 Delivery O2 Flow Rate FiO2 03/09/17 08:36 86 03/09/17 07:15 98.0 20 108/58 97 03/08/17 18:49 Room Air 03/08/17 13:11 3 Intake and Output 03/08/17 03/08/17 03/09/17 15:00 23:00 07:00 Intake Total 0 ml Output Total 650 ml Balance -650 ml Exam Psych: confusion Respiratory: clear to auscultation Cardiovascular: regular rate and rhythm Gastrointestinal: soft, No distended Musculoskeletal: nl extremities to inspection Results Result Diagram: 03/08/17 1240 03/08/17 1240 Results 24 hrs Laboratory Tests Test 03/08/17 12:40 03/08/17 13:00 03/08/17 15:40 03/08/17 21:10 White Blood Count 27.2 #H Red Blood Count 3.88 #L Hemoglobin 11.1 #L Hematocrit 35.5 #L Mean Corpuscular Volume 91.5 Mean Corpuscular Hemoglobin 28.6 L Mean Corpuscular Hemoglobin Concent 31.3 L Red Cell Distribution Width 23.3 #H Platelet Count 399 # Mean Platelet Volume 9.5 Neutrophils % Segmented Neutrophils % (Manual) 88 H Lymphocytes % Lymphocytes % (Manual) 6 L Monocytes % Monocytes % (Manual) 5 Eosinophils % Basophils % Basophils % (Manual) 1 Nucleated Red Blood Cells % 0.7 H Neutrophils # Absolute Lymphocytes (Manual) 1.6 Lymphocytes # Monocytes # Absolute Monocytes (Manual) 1.3 H Eosinophils # Basophils # Basophils # (Manual) 0.2 H Nucleated Red Blood Cells # Pathologist Review (Hematology) YES Platelet Morphology Comment @See below Polychromasia 1+ Poikilocytosis 1+ Anisocytosis 2+ Macrocytosis 2+ Prothrombin Time 26.8 #H Prothrombin Time Ratio 2.1 INR International Normalized Ratio 2.44 Activated Partial Thromboplast Time 94.2 *H Sodium Level 145 H Potassium Level 3.3 L Chloride Level 110 Carbon Dioxide Level 21 Anion Gap 17 H Blood Urea Nitrogen 50 H Creatinine 6.82 H Glucose Level 94 Lactic Acid Level 1.4 0.9 1.2 Calcium Level 7.9 L Phosphorus Level 2.3 L Magnesium Level 2.1 Total Bilirubin 0.0 L Direct Bilirubin 0.00 Indirect Bilirubin 0.0 Aspartate Amino Transf (AST/SGOT) 10 L Alanine Aminotransferase (ALT/SGPT) 23 Alkaline Phosphatase 283 H Troponin I 0.156 *H Total Protein 4.7 L Albumin 2.2 L Globulin 2.50 Albumin/Globulin Ratio 0.88 Urine Color JUAN DAVID Urine Clarity SLIGHTLY CLOUDY A Urine pH 5.0 Urine Specific [place] 1.018 Urine Ketones NEGATIVE Urine Nitrite NEGATIVE Urine Bilirubin NEGATIVE Urine Urobilinogen NEGATIVE Urine Leukocyte Esterase 2+ H Urine Microscopic RBC 37 H Urine Microscopic WBC 138 H Urine Squamous Epithelial Cells FEW Urine Bacteria FEW A Urine Yeast (Budding) MANY A Urine Hemoglobin 3+ H Urine Glucose NEGATIVE Urine Total Protein 2+ H Medications Medications Current Medications Ondansetron HCl (Zofran Inj) 4 mg Q6H PRN IV NAUSEA AND/OR VOMITING; Start at 17:30 Acetaminophen (Tylenol Tab) 650 mg Q6H PRN PO PAIN LEVEL 1-3 OR FEVER; Start 03/08/17 at 17:30 Acetaminophen/ Hydrocodone Bitart ([place] (5/325)) 1 tab Q6H PRN PO MODERATE PAIN LEVEL 4-6 Last administered on 03/09/17 05:22; Admin Dose 1 TAB; Start 03/08/17 at 17:30 Morphine Sulfate (morphine) 2 mg Q4H PRN IV SEVERE PAIN LEVEL 7-10 Last administered on 03/09/17 02:28; Admin Dose 2 MG; Start 03/08/17 at 17:30 Heparin Sodium (Porcine) 5000 unit 5,000 unit Q12 SC Last administered on 03/09 10:37; Admin Dose 5,000 UNIT; Start 03/08/17 at 21:00 Meropenem/Sodium Chloride 50 ml @ 100 mls/hr Q24H IVPB ; Start 03/09/17 at 14: 00 Metronidazole (Flagyl 500 Mg (Pmx)) 100 ml @ 100 mls/hr Q8 IVPB Last administered on 03/09/17t 05:22; Admin Dose 100 MLS/HR; Start 03/08/17 at 22: 00 MICHAEL COULTER Mar 09, 2017 11:49
[2017-03-09] MEDS: MEROPENEM 500MG/50 ML (PMX) 50 ML IVPB SCH (15:35)
--- NOTE | 2017-03-09 15:36 | CONS ---
Date/Time of Note Date/Time of Note DATE: 03/09/17 TIME: 15:36 Assessment/Plan Assessment/Plan Chief Complaint/Hosp Course 1. Bilateral upper thighs and right flank wounds: 2/2 pressure from immobility; left thigh s/p wound vac; right thigh s/p debridement -debridement -local wound care with dakin's -offloading and turning frequently -specialty mattress -abx per sensitivity- cultures pending 2.Septic: multifactorial: 2/2 #1 + pna + uti -supportive -as above 3. Normocytic hypochromic anemia: hx of gi bleed esophagitis, gastritis; -monitor and transfuse prn 4. Leukocytosis: improved -as above 5. Proctocolitis -?gi consult 6. ESRD with HD -per nephro 7. Mild hypercalcemia: likely 2/2 hypovolemia -judicious fluids 8. Hypoalbuminemia: likely 2/2 malnutrition + inflammation -supportive -optimize nutrition 9. Coagulopathy: on Eliquis outpatient 10. Venous stasis dermatitis 11. Diabetes -blood sugar optimization 12. History of falls -PT as patient condition permits -fall precautions 13. Morbidly Obese -diet and physical modification 14. UTI: -abx per sensitivity -frequent bladder emptying/cath care Thank you. Patient seen and examined in collaboration with Dr. Kenney Forrester. Problems: Consultation Date/Type/Reason Admit Date/Time March 08, 2017 Date of Consultation: Mar 09, 2017 Type of Consultation: surgical Reason for Consultation Multiple wounds Referring Provider: MICHAEL COULTER Hx of Present Illness Jaida Anthony is a 61 yo woman who is known to our service from previous admission. She presents with altered mental status for an unknown period of time. She was noted to have multiple wounds on the bilateral hip and trochanter. She was also noted to have a urinary tract infection, as well as pneumonia. She was dmitted to [facility] for further care. There was no reports of fevers, chills, sob, congested cough, cp, palpitations, sexton, dizziness, n/v/d/ dysuria. Due to the wounds, general surgery was asked to evaluate. Constitutional: disoriented Eyes: No visual change ENT: No congestion Respiratory: cough, No shortness of breath Cardiovascular: No edema, No lightheadedness Gastrointestinal: No nausea, No pain, No vomiting Genitourinary: no complaints Musculoskeletal: no complaints Skin: other (multiple wounds) Neurologic: No confusion, No dizziness Psychological: confusion Past Medical History 1. ESRD 2. bilateral lower extremity ulcers 3. gastritis, esophagitis 4. upper GI bleed 5. diabetes type 2 6. pneumonia 7. morbidly obese 8. dyslipidemia 9. bilateral lower extremity diabetic foot ulcers 10. atherosclerosis 11. venous insufficiency 12. venous stasis ulcers 13. bilateral chronic cellulitis 14. coronary artery disease 15. hypertension 16. atrial fibrillation 17. right thigh decubitus ulcer. Medical History: congestive heart failure, coronary artery disease, hypertension, renal disease Past Surgical History 1. Wound debridement 2. fistula creation 3.perm-catheter placement. Past Surgical Hx: other Family History Significant Family History: no pertinent family hx Social History Alcohol Use: none Smoking Status: Former smoker Drug Use: none Exam/Review of Systems Vital Signs Vitals Vital Signs Date Time Temp Pulse Resp B/P Pulse Ox O2 Delivery O2 Flow Rate FiO2 03/09/17 12:21 100 03/09/17 11:40 16 03/09/17 11:38 97.8 95/54 98 03/08/17 18:49 Room Air 03/08/17 13:11 3 Intake and Output 03/08/17 03/08/17 03/09/17 15:00 23:00 07:00 Intake Total 0 ml Output Total 650 ml Balance -650 ml Exam Constitutional: alert, oriented Psych: anxiety, Head: atraumatic, normocephalic Eyes: nl lids, nl sclera ENMT: No nl lips & teeth (missing teeth-poor dentition) Neck: non-tender, supple Respiratory: diminished Cardiovascular: regular rate and rhythm Gastrointestinal: non-tender, other (obese), soft Musculoskeletal: muscle weakness: BLE No nl gait and stance Extremities: No edema, No normal pulses Neurological: nl speech, nl strength Skin: other (wounds: bilat thigh/trochanter area with areas of necrotic tissue , wound bed with slough, mod green drainage, malodorous) Results Result Diagram: 03/09/17 1405 03/09/17 1405 Results 24 hrs Laboratory Tests Test 03/08/17 15:40 03/08/17 21:10 03/09/17 14:05 Lactic Acid Level 0.9 1.2 White Blood Count 19.6 #H Red Blood Count 3.61 L Hemoglobin 10.4 L Hematocrit 32.4 L Mean Corpuscular Volume 89.8 Mean Corpuscular Hemoglobin 28.8 L Mean Corpuscular Hemoglobin Concent 32.1 Red Cell Distribution Width 23.2 H Platelet Count 341 Mean Platelet Volume 9.5 Neutrophils % 79.6 H Lymphocytes % 9.0 L Monocytes % 1.9 Eosinophils % 1.7 Basophils % 0.8 Nucleated Red Blood Cells % 0.5 H Neutrophils # 15.6 H Lymphocytes # 1.8 Monocytes # 0.4 Eosinophils # 0.3 Basophils # 0.2 H Nucleated Red Blood Cells # 0.1 H Sodium Level 144 Potassium Level 3.2 L Chloride Level 111 H Carbon Dioxide Level 21 Anion Gap 15 Blood Urea Nitrogen 45 H Creatinine 6.21 H Glucose Level 76 Calcium Level 8.1 L Medications Medications Current Medications Ondansetron HCl (Zofran Inj) 4 mg Q6H PRN IV NAUSEA AND/OR VOMITING; Start at 17:30 Acetaminophen (Tylenol Tab) 650 mg Q6H PRN PO PAIN LEVEL 1-3 OR FEVER; Start 03/08/17 at 17:30 Acetaminophen/ Hydrocodone Bitart ([place] (5/325)) 1 tab Q6H PRN PO MODERATE PAIN LEVEL 4-6 Last administered on 03/09/17 05:22; Admin Dose 1 TAB; Start 03/08/17 at 17:30 Morphine Sulfate (morphine) 2 mg Q4H PRN IV SEVERE PAIN LEVEL 7-10 Last administered on 03/09/17 02:28; Admin Dose 2 MG; Start 03/08/17 at 17:30 Heparin Sodium (Porcine) 5000 unit 5,000 unit Q12 SC Last administered on 03/09 10:37; Admin Dose 5,000 UNIT; Start 03/08/17 at 21:00 Meropenem/Sodium Chloride 50 ml @ 100 mls/hr Q24H IVPB ; Start 03/09/17 at 14: 00 Metronidazole (Flagyl 500 Mg (Pmx)) 100 ml @ 100 mls/hr Q8 IVPB Last administered on 03/09/17 05:22; Admin Dose 100 MLS/HR; Start 03/08/17 at 22: 00 JUSTIN FOX NP Mar 09, 2017 15:36
[2017-03-10] VITALS (12 sets, daily range): BP systolic 93–125; BP diastolic 51–73; PULSE 82–130; RESP 18–21
[2017-03-10] MEDS: Metronidazole 500 MG in NS 100 ML IVPB SCH ×3 (06:37→22:16)
[2017-03-10] MEDS: morphine 2 MG INJ IV PRN ×2 (06:38→12:30)
--- NOTE | 2017-03-10 08:39 | CONS ---
DATE OF ADMISSION: 03/08/2017 DATE OF CONSULTATION: 03/09/2017 INFECTIOUS DISEASE CONSULTATION REASON FOR CONSULTATION: Antibiotic management. HISTORY OF PRESENT ILLNESS: Jaida Anthony is a 61-year-old female who has a history of end-stage re nal disease and is being seen for antibiotic management. Her problems include: 1. End-stage renal disease. 2. Chronic left lower extremity wound with a wound VAC. 3. Atrial fibrillation. 4. Hypertension. Acutely, the patient presents with altered mental status. She is supposed to be dialyzed on Tuesday , and Tuesday. Today is Tuesday. Her blood sugar was within normal limits. Evaluation in the emergency room suggested urinary tract infection, but her blood cultures and urine cultures at 24 hours are negative. On admission, her white count was 27.2, H and H 11.1 and 35.5, platelet c ount 399,000. Today, her white count is 19.6. Her BUN and creatinine are 45/6.21. Her urine is 2+ leukocyte esterase, 138 white cells per high powered field with few bacteria, many yeast, 3+ hemogl obin. A chest x-ray showed stable moderate cardiomegaly with atherosclerotic aortic calcifications, mild interstitial vascular congestion superimposed on these more patchy alveolar densities in both the perihilar locations and left lower lobe, which may represent superimposed pneumonia, trace left pleural effusion. A CT scan of the abdomen and pelvis shows circumferential wall thickening of the rectum and the distal sigmoid colon suggesting proctocolitis, atrophic kidney disease, atheros clerosis, cardiomegaly, small bilateral pleural effusions with partial atelectasis, focal consolidat ion in the left lung base consistent or concerning for superimposed pneumonia, anasarca edema, soft tissue defect involving the skin and subcutaneous fat along the lateral right thigh. She is seen in consultation by Dr. Rolon, her geriatric nurse practitioner. He notes that she has congestive failure, coronary artery disease, hypertension, as well as renal disease. She is a former smoker. Her white count wa s 27.2 on 03/08/2017, sepsis with acute metabolic encephalopathy secondary to UTI and/or proctocolit is. Patient was started on Zosyn. She has end-stage renal disease, chronic lower extremity ulcer, left lower extremity ulcer, chronic atrial fibrillation, hypertension. PAST MEDICAL HISTORY: Operations as outlined. FAMILY HISTORY: Noncontributory. SOCIAL HISTORY: She is a former smoker. She does not drink or abuse drugs. ALLERGIES: NONE TO PENICILLIN, SULFA OR FOODS. MEDICATIONS: Per chart. REVIEW OF SYSTEMS: Noncontributory. PHYSICAL EXAMINATION: GENERAL: The patient is a confused 61-year-old female who is encephalopathic, in no acute distress. VITAL SIGNS: Stable. She is afebrile. SKIN: Without generalized rash. HEENT: Within normal limits. NECK: Supple. LYMPH NODES: None palpable. CHEST: Decreased breath sounds at the bases. HEART: Without murmur or gallop. ABDOMEN: Soft, nontender, without organosplenomegaly or masses. EXTREMITIES: Without cyanosis, clubbing or edema. RECTAL AND GENITAL: Deferred. NEUROLOGICAL: No focal neurological abnormalities. IMPRESSION AND PLAN: As noted, she has patchy left lower lobe bilateral perihilar infiltrates. We will treat her for pneumonia, as well as possible urinary tract infection and also proctitis. She i s currently on Zosyn. This was changed to meropenem today for better coverage and she had 1 dose of vancomycin, which is appropriate. I will dictate my findings to the hospitalist. Dictated By: MAJO PARK MD, JD/BLANCA Conf#: [id number] DID#: [id number] CC: ERICK MATOS;*End*
[2017-03-10] MEDS: SODIUM HYPOCHLORITE 0.125% 473 ML BTL IRR SCH ×2 (09:32→21:53)
[2017-03-10] MEDS: HEPARIN 5,000 UNIT/0.5 ML VIAL SC SCH ×2 (09:46→22:16)
--- NOTE | 2017-03-10 10:46 | EN ---
Date/Time of Note Date/Time of Note DATE: 03/10/17 TIME: 10:45 Event Note Surgery Surgery Event Note SP LUTatyana AVF revesion will DC BOBBI Henry MD Mar 10, 2017 10:46
--- NOTE | 2017-03-10 13:08 | PN ---
Date/Time of Note Date/Time of Note DATE: 03/10/17 TIME: 12:55 Assessment/Plan Lines/Catheters IV Catheter Type (from [facility]): Saline Lock [place] in Place (from [facility]): Yes Assessment/Plan Chief Complaint/Hosp Course 1. Bilateral upper thighs and right flank wounds: 2/2 pressure from immobility; -debridement -local wound care with dakin's -offloading and turning frequently -specialty mattress -abx per sensitivity- cultures pending 2.Sepsis: multifactorial: 2/2 #1 + pna + uti -supportive -as above 3. Normocytic hypochromic anemia: hx of gi bleed esophagitis, gastritis; -monitor and transfuse prn 4. Leukocytosis: worsened -as above 5. Proctocolitis -?gi consult 6. ESRD with HD -per nephro 7. Mild hypercalcemia: likely 2/2 hypovolemia -judicious fluids 8. Hypoalbuminemia: likely 2/2 malnutrition + inflammation -supportive -optimize nutrition 9. Coagulopathy: on Eliquis outpatient 10.UTI: -abx per sensitivity -frequent bladder emptying/cath care 11. Diabetes -blood sugar optimization 12. History of falls -PT as patient condition permits -fall precautions 13. Morbidly Obese -diet and physical modification 14. Loose stools: -stool studies 15. Lower extremity wounds: -podiatry consult -as above Thank you. Patient seen and examined in collaboration with Dr. Kenney Forrester. Problems: Subjective 24 Hr Interval Summary Leukocytosis worse today. S/p HD yesterday. Mod drainage from wounds. Diarrhea. No fevers, chills, sob, congested cough, cp, palpitations, sexton, dizziness, n/v. Exam/Review of Systems Vital Signs Vitals Vital Signs Date Time Temp Pulse Resp B/P Pulse Ox O2 Delivery O2 Flow Rate FiO2 03/10/17 12:17 119 03/10/17 11:26 97.9 18 99/67 95 03/08/17 18:49 Room Air 03/08/17 13:11 3 Intake and Output 03/09/17 03/09/17 03/10/17 15:00 23:00 07:00 Intake Total 500 ml 150 ml Output Total 2000 ml 25 ml 25 ml Balance -1500 ml 125 ml -25 ml Exam Free Text/Dictation Constitutional: alert, oriented Psych: anxiety, Head: atraumatic, normocephalic Eyes: nl lids, nl sclera ENMT: No nl lips & teeth (missing teeth-poor dentition) Neck: non-tender, supple Respiratory: diminished Cardiovascular: regular rate and rhythm Gastrointestinal: non-tender, other (obese), soft : [place] with creamy brown drainage Musculoskeletal: muscle weakness: BLE No nl gait and stance Extremities: No edema, No normal pulses Neurological: nl speech, nl strength Skin: other (wounds: bilat thigh/trochanter area with areas of necrotic tissue , wound bed with slough, mod green drainage, malodorous); necrotic skin on right arm Results Result Diagram: 03/10/17 0752 03/10/17 0753 JUSTIN FOX NP Mar 10, 2017 13:05
--- NOTE | 2017-03-10 14:34 | CONS ---
Date/Time of Note Date/Time of Note DATE: 03/10/17 TIME: 14:34 Consult Date/Type/Reason Admit Date/Time Mar 08, 2017 at 14:45 Initial Consult Date 03/09/17 Type of Consultation: ID Ordering Provider: MICHAEL COULTER Objective Vital Signs Date Time Temp Pulse Resp B/P Pulse Ox O2 Delivery O2 Flow Rate FiO2 03/10/17 12:17 119 03/10/17 11:26 97.9 18 99/67 95 03/08/17 18:49 Room Air 03/08/17 13:11 3 Intake and Output 03/09/17 03/09/17 03/10/17 15:00 23:00 07:00 Intake Total 500 ml 150 ml Output Total 2000 ml 25 ml 25 ml Balance -1500 ml 125 ml -25 ml Results/Medications Result Diagram: 03/10/17 0752 03/10/17 0753 Results 24 hrs Laboratory Tests Test 03/10/17 07:52 03/10/17 07:53 White Blood Count 28.8 #H Red Blood Count 3.85 L Hemoglobin 10.7 L Hematocrit 34.8 L Mean Corpuscular Volume 90.4 Mean Corpuscular Hemoglobin 27.8 L Mean Corpuscular Hemoglobin Concent 30.7 L Red Cell Distribution Width 24.1 H Platelet Count 349 Mean Platelet Volume 9.7 Neutrophils % Segmented Neutrophils % (Manual) 79 H Band Neutrophils % (Manual) 5 H Lymphocytes % Lymphocytes % (Manual) 11 L Monocytes % Monocytes % (Manual) 4 Eosinophils % Eosinophils % (Manual) 1 Basophils % Nucleated Red Blood Cells % 0.3 H Neutrophils # Neutrophils # (Manual) 23.2 H Band Neutrophils # 1.4 H Absolute Lymphocytes (Manual) 3.1 H Lymphocytes # Monocytes # Absolute Monocytes (Manual) 1.1 H Eosinophils # Basophils # Nucleated Red Blood Cells # Platelet Estimate NORMAL Polychromasia 3+ Poikilocytosis 3+ Anisocytosis 2+ Macrocytosis 2+ Sodium Level 146 H Potassium Level 3.5 Chloride Level 112 H Carbon Dioxide Level 20 L Anion Gap 18 H Blood Urea Nitrogen 43 H Creatinine 5.89 H Glucose Level 85 Calcium Level 8.3 L Medications Current Medications Ondansetron HCl (Zofran Inj) 4 mg Q6H PRN IV NAUSEA AND/OR VOMITING; Start at 17:30 Acetaminophen (Tylenol Tab) 650 mg Q6H PRN PO PAIN LEVEL 1-3 OR FEVER; Start 03/08/17 at 17:30 Acetaminophen/ Hydrocodone Bitart ([place] (5/325)) 1 tab Q6H PRN PO MODERATE PAIN LEVEL 4-6 Last administered on 03/09/17 20:45; Admin Dose 1 TAB; Start 03/08/17 at 17:30 Morphine Sulfate (morphine) 2 mg Q4H PRN IV SEVERE PAIN LEVEL 7-10 Last administered on 03/10/17 12:30; Admin Dose 2 MG; Start 03/08/17 at 17:30 Heparin Sodium (Porcine) 5000 unit 5,000 unit Q12 SC Last administered on 03/10 09:46; Admin Dose 5,000 UNIT; Start 03/08/17 at 21:00 Meropenem/Sodium Chloride 50 ml @ 100 mls/hr Q24H IVPB Last administered on 15:35; Admin Dose 100 MLS/HR; Start 03/09/17 at 14:00 Metronidazole (Flagyl 500 Mg (Pmx)) 100 ml @ 100 mls/hr Q8 IVPB Last administered on 03/10/17 06:37; Admin Dose 100 MLS/HR; Start 03/08/17 at 22: 00 Sodium Hypochlorite (Dakin'S (1/4 Strength)) 1 applic BID IRR Last administered on 03/10/17 09:32; Admin Dose 1 APPLIC; Start 03/10/17 at 09:00 Assessment/Plan Chief Complaint/Hosp Course No acute changes overnight patient is awake looks comfortable complaining of pain. No fevers. Indwelling's: left upper extremity AV fistua, [place] Laboratory: WBC 28.8 H&H 10.7 and 34.8 platelets 349 bands 5 Microbiology: Urine culture growing yeast, blood cultures negative, stool for C. difficile positive Antibiotics: Vancomycin meropenem Flagyl Physical examination: This is a wasted chronically ill-appearing elderly woman who is awake in no distress. Head atraumatic normocephalic, sclera nonicteric, bugle mucosa dry, patient has multiple missing teeth. Neck is supple, trachea midline. Chest rise symmetrical breath sounds diminished bases. S1-S2. Abdomen soft bowel sounds present. Extremities: Right upper extremity with forearm necrotic wou and erythema. Left upper extremity incision below AV fistula with guanaco present, erythema present, there is an area of dehiscence with drainage. Skin: Positive for anasarca, multiple necrotic unstageable wounds Assessment: 1. Sepsis, multifactorial 2. Urinary tract infection 3. C. difficile colitis 4. Multiple necrotic wounds 5. Infected left upper extremity incision 6. End-stage renal disease, hemodialysis dependent 5. Atrial fibrillation Plan: We are going to add voriconazole and Vanco, continue antibiotics, follow final cultures, local wound care per surgical recommendations, consider vascular surgery evaluation Prognosis very poor Discussed with staff Problems: TODD RAMIRES NP Mar 10, 2017 14:34
[2017-03-10] MEDS: MEROPENEM 500MG/50 ML (PMX) 50 ML IVPB SCH (15:05)
--- NOTE | 2017-03-10 18:13 | PN ---
Date/Time of Note Date/Time of Note DATE: 03/10/17 TIME: 18:11 Assessment/Plan VTE Prophylaxis VTE Prophylaxis Intervention: heparin Lines/Catheters IV [facility]from [facility] Saline Lock Assessment/Plan Chief Complaint/Hosp Course 1. Sepsis with acute metabolic encephalopathy secondary to UTI and/or proctocolitis and skin wounds Zosyn Follow-up on urine culture 2. 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 Chronic left lower extremity ulcer as well as wounds in the left arm Wound care, debridement Surgery consultation appreciated 4. Chronic A. fib 5. History of hypertension Hold home meds secondary to sepsis Prophylaxis: Heparin Problems: Subjective 24 Hr Interval Summary Constitutional: disoriented Exam/Review of Systems Vital Signs Vitals Vital Signs Date Time Temp Pulse Resp B/P Pulse Ox O2 Delivery O2 Flow Rate FiO2 03/10/17 16:17 125 03/10/17 15:13 97.8 18 93/56 96 03/08/17 18:49 Room Air 03/08/17 13:11 3 Intake and Output 03/09/17 03/09/17 03/10/17 15:00 23:00 07:00 Intake Total 500 ml 150 ml Output Total 2000 ml 25 ml 25 ml Balance -1500 ml 125 ml -25 ml Exam Constitutional: alert Psych: confusion Respiratory: clear to auscultation Cardiovascular: regular rate and rhythm Gastrointestinal: soft, No distended Musculoskeletal: No nl extremities to inspection Results Result Diagram: 03/10/17 0752 03/10/17 0753 Results 24 hrs Laboratory Tests Test 03/10/17 07:52 03/10/17 07:53 White Blood Count 28.8 #H Red Blood Count 3.85 L Hemoglobin 10.7 L Hematocrit 34.8 L Mean Corpuscular Volume 90.4 Mean Corpuscular Hemoglobin 27.8 L Mean Corpuscular Hemoglobin Concent 30.7 L Red Cell Distribution Width 24.1 H Platelet Count 349 Mean Platelet Volume 9.7 Neutrophils % Segmented Neutrophils % (Manual) 79 H Band Neutrophils % (Manual) 5 H Lymphocytes % Lymphocytes % (Manual) 11 L Monocytes % Monocytes % (Manual) 4 Eosinophils % Eosinophils % (Manual) 1 Basophils % Nucleated Red Blood Cells % 0.3 H Neutrophils # Neutrophils # (Manual) 23.2 H Band Neutrophils # 1.4 H Absolute Lymphocytes (Manual) 3.1 H Lymphocytes # Monocytes # Absolute Monocytes (Manual) 1.1 H Eosinophils # Basophils # Nucleated Red Blood Cells # Platelet Estimate NORMAL Polychromasia 3+ Poikilocytosis 3+ Anisocytosis 2+ Macrocytosis 2+ Sodium Level 146 H Potassium Level 3.5 Chloride Level 112 H Carbon Dioxide Level 20 L Anion Gap 18 H Blood Urea Nitrogen 43 H Creatinine 5.89 H Glucose Level 85 Calcium Level 8.3 L Medications Medications Current Medications Ondansetron HCl (Zofran Inj) 4 mg Q6H PRN IV NAUSEA AND/OR VOMITING; Start at 17:30 Acetaminophen (Tylenol Tab) 650 mg Q6H PRN PO PAIN LEVEL 1-3 OR FEVER; Start 03/08/17 at 17:30 Acetaminophen/ Hydrocodone Bitart ([place] (5/325)) 1 tab Q6H PRN PO MODERATE PAIN LEVEL 4-6 Last administered on 03/09/17 20:45; Admin Dose 1 TAB; Start 03/08/17 at 17:30 Morphine Sulfate (morphine) 2 mg Q4H PRN IV SEVERE PAIN LEVEL 7-10 Last administered on 03/10/17 12:30; Admin Dose 2 MG; Start 03/08/17 at 17:30 Heparin Sodium (Porcine) 5000 unit 5,000 unit Q12 SC Last administered on 03/10 09:46; Admin Dose 5,000 UNIT; Start 03/08/17 at 21:00 Meropenem/Sodium Chloride 50 ml @ 100 mls/hr Q24H IVPB Last administered on 15:05; Admin Dose 100 MLS/HR; Start 03/09/17 at 14:00 Metronidazole (Flagyl 500 Mg (Pmx)) 100 ml @ 100 mls/hr Q8 IVPB Last administered on 03/10/17 14:00; Admin Dose 100 MLS/HR; Start 03/08/17 at 22: 00 Sodium Hypochlorite (Dakin'S (1/4 Strength)) 1 applic BID IRR Last administered on 03/10/17 09:32; Admin Dose 1 APPLIC; Start 03/10/17 at 09:00 Voriconazole (Vfend) 200 mg BID PO ; Start 03/10/17 at 21:00 MICHAEL COULTER Mar 10, 2017 18:13
[2017-03-10] MEDS: VORICONAZOLE 200 MG TAB PO SCH (21:54)
[2017-03-10] MEDS: HYDROCODONE/APAP (5/325) TAB PO PRN (22:17)
[2017-03-11] VITALS (19 sets, daily range): BP systolic 84–109; BP diastolic 42–62; PULSE 80–124; RESP 16–18
[2017-03-11] MEDS: Metronidazole 500 MG in NS 100 ML IVPB SCH ×3 (05:17→22:00)
[2017-03-11] MEDS: SODIUM HYPOCHLORITE 0.125% 473 ML BTL IRR SCH ×2 (08:23→21:00)
[2017-03-11] MEDS: VORICONAZOLE 200 MG TAB PO SCH ×2 (08:23→21:00)
[2017-03-11] MEDS: HEPARIN 5,000 UNIT/0.5 ML VIAL SC SCH ×2 (08:32→21:00)
--- NOTE | 2017-03-11 10:22 | CONS ---
Date/Time of Note Date/Time of Note DATE: 03/11/17 TIME: 10:21 Assessment/Plan Assessment/Plan Chief Complaint/Hosp Course - ESRD - Sepsis - CAD/CHF - Anemia PLAN: Bedside dialysis today Using 3K= Bath Monitor Labs AVF with still guanaco with some redness & PUS Dr. Metzger to evaluate IV antibiotics Problems: Consultation Date/Type/Reason Admit Date/Time Mar 08, 2017 at 14:45 Initial Consult Date 03/09/17 Type of Consultation: TYE Reason for Consultation ESRD ON HEMODIALYSIS Referring Provider: MICHAEL COULTER 24 HR Interval Summary Constitutional: improved Exam/Review of Systems Vital Signs Vitals Vital Signs Date Time Temp Pulse Resp B/P Pulse Ox O2 Delivery O2 Flow Rate FiO2 03/11/17 08:52 124 03/11/17 07:24 98.6 18 93/52 96 03/10/17 20:55 Nasal Cannula 2.0 Intake and Output 03/10/17 03/10/17 03/11/17 15:00 23:00 07:00 Intake Total 100 ml 290 ml Balance 100 ml 290 ml Exam Constitutional: alert, oriented Psych: no complaints Respiratory: crackles/rales Cardiovascular: edema, systolic murmur Gastrointestinal: soft Results Result Diagram: 03/11/17 0744 03/11/17 0756 Results 24 hrs Laboratory Tests Test 03/11/17 07:44 03/11/17 07:56 White Blood Count 30.0 H Red Blood Count 3.69 L Hemoglobin 10.3 L Hematocrit 33.2 L Mean Corpuscular Volume 90.0 Mean Corpuscular Hemoglobin 27.9 L Mean Corpuscular Hemoglobin Concent 31.0 L Red Cell Distribution Width 24.0 H Platelet Count 387 Mean Platelet Volume 10.2 Neutrophils % Segmented Neutrophils % (Manual) 80 H Band Neutrophils % (Manual) 5 H Lymphocytes % Lymphocytes % (Manual) 8 L Monocytes % Monocytes % (Manual) 3 Eosinophils % Eosinophils % (Manual) 1 Basophils % Basophils % (Manual) 1 Myelocytes % (Manual) 1 H Promyelocytes % (Manual) 1 H Nucleated Red Blood Cells % 1 H Neutrophils # Neutrophils # (Manual) 24.5 H Band Neutrophils # 1.5 H Absolute Lymphocytes (Manual) 2.4 Lymphocytes # Monocytes # Absolute Monocytes (Manual) 0.9 Eosinophils # Basophils # Basophils # (Manual) 0.3 H Myelocytes # 0.3 H Promyelocytes # 0.3 H Nucleated Red Blood Cells # Platelet Estimate NORMAL Giant Platelets 1 H Polychromasia 3+ Poikilocytosis 3+ Anisocytosis 3+ Macrocytosis 2+ Spherocytes 1+ Target Cells 1+ Sodium Level 149 H Potassium Level 3.4 L Chloride Level 112 H Carbon Dioxide Level 19 L Anion Gap 21 H Blood Urea Nitrogen 46 H Creatinine 6.29 H Glucose Level 99 Calcium Level 8.5 Medications Medications Current Medications Ondansetron HCl (Zofran Inj) 4 mg Q6H PRN IV NAUSEA AND/OR VOMITING; Start at 17:30 Acetaminophen (Tylenol Tab) 650 mg Q6H PRN PO PAIN LEVEL 1-3 OR FEVER; Start 03/08/17 at 17:30 Acetaminophen/ Hydrocodone Bitart ([place] (5/325)) 1 tab Q6H PRN PO MODERATE PAIN LEVEL 4-6 Last administered on 03/10/17 22:17; Admin Dose 1 TAB; Start 03/08/17 at 17:30 Morphine Sulfate (morphine) 2 mg Q4H PRN IV SEVERE PAIN LEVEL 7-10 Last administered on 03/10/17 12:30; Admin Dose 2 MG; Start 03/08/17 at 17:30 Heparin Sodium (Porcine) 5000 unit 5,000 unit Q12 SC Last administered on 03/11 08:32; Admin Dose 5,000 UNIT; Start 03/08/17 at 21:00 Meropenem/Sodium Chloride 50 ml @ 100 mls/hr Q24H IVPB Last administered on 15:05; Admin Dose 100 MLS/HR; Start 03/09/17 at 14:00 Metronidazole (Flagyl 500 Mg (Pmx)) 100 ml @ 100 mls/hr Q8 IVPB Last administered on 03/11/17 05:17; Admin Dose 100 MLS/HR; Start 03/08/17 at 22: 00 Sodium Hypochlorite (Dakin'S (1/4 Strength)) 1 applic BID IRR Last administered on 03/11/17 08:23; Admin Dose 1 APPLIC; Start 03/10/17 at 09:00 Voriconazole (Vfend) 200 mg BID PO Last administered on 03/11/17 08:23; Admin Dose 200 MG; Start 03/10/17 at 21:00 BECKY GAMBLE MD Mar 11, 2017 10:22
[2017-03-11] MEDS ORDERED: VANCOMYCIN IV PER PHARMACY XX SCH (11:00)
[2017-03-11] MEDS: HYDROCODONE/APAP (5/325) TAB PO PRN ×2 (11:21→22:20)
[2017-03-11] MEDS: VANCOMYCIN 1.5 GM in SOD CHLORIDE 0.9% 250 ML IVPB SCH ×2 (11:30→18:18)
--- NOTE | 2017-03-11 11:44 | PN ---
Date/Time of Note Date/Time of Note DATE: 03/11/17 TIME: 11:41 Assessment/Plan VTE Prophylaxis VTE Prophylaxis Intervention: heparin Lines/Catheters [facility] Saline Lock Urinary Cath still in place: No Assessment/Plan Chief Complaint/Hosp Course 1. Sepsis with acute metabolic encephalopathy secondary to UTI and/or proctocolitis and skin wounds Zosyn Follow-up on urine culture 2. 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 Chronic left lower extremity ulcer as well as wounds in both arms Wound care, debridement Surgery consultation appreciated 4. Chronic A. fib 5. History of hypertension Hold home meds secondary to sepsis 6. Debility with deconditioning Patient's functional status continues to decline, have consulted palliative care Prophylaxis: Heparin Problems: Subjective 24 Hr Interval Summary Constitutional: disoriented Exam/Review of Systems Vital Signs Vitals Vital Signs Date Time Temp Pulse Resp B/P Pulse Ox O2 Delivery O2 Flow Rate FiO2 03/11/17 11:36 97.8 99 18 93/58 98 03/10/17 20:55 Nasal Cannula 2.0 Intake and Output 03/10/17 03/10/17 03/11/17 15:00 23:00 07:00 Intake Total 100 ml 290 ml Balance 100 ml 290 ml Exam Psych: confusion Respiratory: clear to auscultation Cardiovascular: regular rate and rhythm Gastrointestinal: soft, No distended Musculoskeletal: No nl extremities to inspection Results Result Diagram: 03/11/17 0744 03/11/17 0756 Results 24 hrs Laboratory Tests Test 03/11/17 07:44 03/11/17 07:56 White Blood Count 30.0 H Red Blood Count 3.69 L Hemoglobin 10.3 L Hematocrit 33.2 L Mean Corpuscular Volume 90.0 Mean Corpuscular Hemoglobin 27.9 L Mean Corpuscular Hemoglobin Concent 31.0 L Red Cell Distribution Width 24.0 H Platelet Count 387 Mean Platelet Volume 10.2 Neutrophils % Segmented Neutrophils % (Manual) 80 H Band Neutrophils % (Manual) 5 H Lymphocytes % Lymphocytes % (Manual) 8 L Monocytes % Monocytes % (Manual) 3 Eosinophils % Eosinophils % (Manual) 1 Basophils % Basophils % (Manual) 1 Myelocytes % (Manual) 1 H Promyelocytes % (Manual) 1 H Nucleated Red Blood Cells % 1 H Neutrophils # Neutrophils # (Manual) 24.5 H Band Neutrophils # 1.5 H Absolute Lymphocytes (Manual) 2.4 Lymphocytes # Monocytes # Absolute Monocytes (Manual) 0.9 Eosinophils # Basophils # Basophils # (Manual) 0.3 H Myelocytes # 0.3 H Promyelocytes # 0.3 H Nucleated Red Blood Cells # Platelet Estimate NORMAL Giant Platelets 1 H Polychromasia 3+ Poikilocytosis 3+ Anisocytosis 3+ Macrocytosis 2+ Spherocytes 1+ Target Cells 1+ Sodium Level 149 H Potassium Level 3.4 L Chloride Level 112 H Carbon Dioxide Level 19 L Anion Gap 21 H Blood Urea Nitrogen 46 H Creatinine 6.29 H Glucose Level 99 Calcium Level 8.5 Medications Medications Current Medications Ondansetron HCl (Zofran Inj) 4 mg Q6H PRN IV NAUSEA AND/OR VOMITING; Start at 17:30 Acetaminophen (Tylenol Tab) 650 mg Q6H PRN PO PAIN LEVEL 1-3 OR FEVER; Start 03/08/17 at 17:30 Acetaminophen/ Hydrocodone Bitart ([place] (5/325)) 1 tab Q6H PRN PO MODERATE PAIN LEVEL 4-6 Last administered on 03/11/17 11:21; Admin Dose 1 TAB; Start 03/08/17 at 17:30 Morphine Sulfate (morphine) 2 mg Q4H PRN IV SEVERE PAIN LEVEL 7-10 Last administered on 03/10/17 12:30; Admin Dose 2 MG; Start 03/08/17 at 17:30 Heparin Sodium (Porcine) 5000 unit 5,000 unit Q12 SC Last administered on 03/11 08:32; Admin Dose 5,000 UNIT; Start 03/08/17 at 21:00 Meropenem/Sodium Chloride 50 ml @ 100 mls/hr Q24H IVPB Last administered on 15:05; Admin Dose 100 MLS/HR; Start 03/09/17 at 14:00 Metronidazole (Flagyl 500 Mg (Pmx)) 100 ml @ 100 mls/hr Q8 IVPB Last administered on 03/11/17 05:17; Admin Dose 100 MLS/HR; Start 03/08/17 at 22: 00 Sodium Hypochlorite (Dakin'S (1/4 Strength)) 1 applic BID IRR Last administered on 03/11/17 08:23; Admin Dose 1 APPLIC; Start 03/10/17 at 09:00 Voriconazole 200 mg 200 mg BID PO Last administered on 03/11/17 08:23; Admin Dose 200 MG; Start 03/10/17 at 21:00 Vancomycin HCl/ Sodium Chloride (Vancocin/NS) 250 ml @ 83.333 mls/ hr ONCE IVPB ; Start 03/11/17 at 11:30; Stop 03/11/17 at 14:29 MICHAEL COULTER Mar 11, 2017 11:44
--- NOTE | 2017-03-11 12:42 | PN ---
DATE: 03/11/2017 SUBJECTIVE: No acute changes. The patient is awake. Complaining of pain, no fevers. VITAL SIGNS: Temperature 97.8, pulse 99, respirations 18, blood pressure 93/58, saturation 98% on n malena cannula. LABORATORIES: WBC 30, hemoglobin and hematocrit 10.3 and 33.2, platelets 87, neutrophils 80, bands. MICROBIOLOGY: Urine culture grew Giselle albicans. Stool for C. difficile came back positive, woun d cultures growing gram-negative rods. ANTIMICROBIALS: The patient is on: 1. IV vancomycin. 2. Meropenem. 3. Voriconazole 4. Flagyl. PHYSICAL EXAMINATION: GENERAL: This is a chronically ill-appearing, wasted, elderly woman who is awake, in no distress. HEENT: Head atraumatic, normocephalic. Sclerae anicteric. Buccal mucosa dry. NECK: Supple. CHEST: Rise symmetrical. Breath sounds diminished to bases. HEART: S1, S2. ABDOMEN: Soft, bowel tones present. EXTREMITIES: With multiple wounds, right forearm with necrotic gangrenous wounds. Left forearm wit h incision, guanaco intact, but there is a small area of dehiscence and drainage. SKIN: Unstageable. Wounds over her sacrum, and extremities and buttocks that look infected. ASSESSMENT: 1. Severe sepsis. 2. Clostridium difficile colitis. 3. Urinary tract infection. 4. Multiple unstageable wounds with right forearm gangrenous necrotic changes. 5. History of left AV fistula thrombectomy, incision below it looks infected. 6. End-stage renal disease, hemodialysis dependent. 7. Severe decompensated state. 8. Atrial fibrillation. PLAN: The patient remains unchanged, overall doing poorly. She is on appropriate antibiotics. Pro gnosis very poor. She is being followed by multiple consultants. Dictated By: TODD RAMIRES BONE GLUE MAKER for [employer] MATTSON/BLANCA Conf#: [id number] DID#: [id number]
--- NOTE | 2017-03-11 12:42 | PN ---
DATE: 03/11/2017 SUBJECTIVE: No acute changes. The patient is awake. Complaining of pain, no fevers. VITAL SIGNS: Temperature 97.8, pulse 99, respirations 18, blood pressure 93/58, saturation 98% on n malena cannula. LABORATORIES: WBC 30, hemoglobin and hematocrit 10.3 and 33.2, platelets 87, neutrophils 80, bands. MICROBIOLOGY: Urine culture grew Giselle albicans. Stool for C. difficile came back positive, woun d cultures growing gram-negative rods. ANTIMICROBIALS: The patient is on: 1. IV vancomycin. 2. Meropenem. 3. Voriconazole 4. Flagyl. PHYSICAL EXAMINATION: GENERAL: This is a chronically ill-appearing, wasted, elderly woman who is awake, in no distress. HEENT: Head atraumatic, normocephalic. Sclerae anicteric. Buccal mucosa dry. NECK: Supple. CHEST: Rise symmetrical. Breath sounds diminished to bases. HEART: S1, S2. ABDOMEN: Soft, bowel tones present. EXTREMITIES: With multiple wounds, right forearm with necrotic gangrenous wounds. Left forearm wit h incision, guanaco intact, but there is a small area of dehiscence and drainage. SKIN: Unstageable. Wounds over her sacrum, and extremities and buttocks that look infected. ASSESSMENT: 1. Severe sepsis. 2. Clostridium difficile colitis. 3. Urinary tract infection. 4. Multiple unstageable wounds with right forearm gangrenous necrotic changes. 5. History of left AV fistula thrombectomy, incision below it looks infected. 6. End-stage renal disease, hemodialysis dependent. 7. Severe decompensated state. 8. Atrial fibrillation. PLAN: The patient remains unchanged, overall doing poorly. She is on appropriate antibiotics. Pro gnosis very poor. She is being followed by multiple consultants. Dictated By: TODD RAMIRES SALES CONTRACTOR for [employer] MAT[employer] Conf#: [id number] DID#: [id number]
--- NOTE | 2017-03-11 17:23 | RADRPT ---
PROCEDURE: Ultrasound guidance for placement of needle in right upper extremity vein. CLINICAL INDICATION: Venous access. TECHNIQUE: Limited sonography of the right upper extremity was performed. Ultrasound images were recorded and stored in the patient's medical record. COMPARISON: None. FINDINGS: The ultrasound images demonstrate a patent right upper extremity vein. The PICC line was inserted b y the PICC line nurse. IMPRESSION: 1. Ultrasound guidance for a needle placement in a right upper extremity vein. 2. The visualized right upper extremity vein is patent. RPTAT: QQ .Bandar Adamson MD, MD Date Time Electronically viewed and signed by .Bandar Adamson MD, MD on 03/11/2017 17:23 .R/
--- NOTE | 2017-03-11 17:32 | RADRPT ---
PROCEDURE: XR Chest. CLINICAL INDICATION: Check PICC line position. TECHNIQUE: Single frontal view. COMPARISON: 03/08/2017. FINDINGS: There is a right arm PICC line with the tip in the lower superior vena cava. There is bilateral int erstitial disease in the mid and lower lung zones consistent with pulmonary edema. The lungs are oth erwise clear. The heart is enlarged. There is calcification in the aorta consistent with atherosclerosis. There is no pleural effusion. There is no pneumothorax. IMPRESSION: 1. Right arm PICC line tip in satisfactory position. 2. Pulmonary edema. 3. Cardiomegaly. 4. Atherosclerosis. 5. Otherwise normal chest radiograph. RPTAT: QQ .Bandar Adamson MD, MD Date Time Electronically viewed and signed by .Bandar Adamson MD, on 03/11/2017 17:32 .R/
[2017-03-11] MEDS: SOD CHLORIDE 0.9% 100 ML ONE ×2 (17:35→18:04)
[2017-03-11] MEDS: MEROPENEM 500MG/50 ML (PMX) 50 ML IVPB SCH (18:14)
[2017-03-11] MEDS: morphine 2 MG INJ IV PRN (18:32)
[2017-03-11] MEDS: COLLAGENASE 30 GM TUBE TOP SCH (21:00)
[2017-03-11] MEDS ORDERED: HALOPERIDOL 5 MG INJ IM ONE (22:30)
[2017-03-12] VITALS (16 sets, daily range): BP systolic 89–113; BP diastolic 36–56; PULSE 71–110; RESP 16–18
[2017-03-12] MEDS ORDERED: SOD CHLORIDE 0.9% 250 ML IV ONE (01:00)
[2017-03-12] MEDS: ALBUMIN HUMAN 25% 100 ML IV SCH ×2 (01:13→06:25)
[2017-03-12] MEDS ORDERED: SOD CHLORIDE 0.9% 500 ML IV ONE (02:30)
[2017-03-12] MEDS: MIDODRINE 5 MG TAB PO SCH ×4 (02:52→21:59)
--- NOTE | 2017-03-12 03:36 | PN ---
Date/Time of Note Date/Time of Note DATE: 03/11/17 TIME: 19:30 Assessment/Plan Lines/Catheters IV C[facility]ter Type (from [facility]): PICC Line [place] in Place (from [facility]): No Assessment/Plan Chief Complaint/Hosp Course 1. Bilateral upper thighs and right flank wounds: 2/2 pressure from immobility; -debridement prn -local wound care with dakin's -offloading and turning frequently -specialty mattress -abx per sensitivity 2.Sepsis: multifactorial: 2/2 #1 + pna + uti (funguria) + cdiff colitis -supportive -as above 3. Normocytic hypochromic anemia: hx of gi bleed esophagitis, gastritis; -monitor and transfuse prn -antacids 4. Leukocytosis: worsened -as above 5. Proctocolitis c CDiff -abx per ID -gi f/u 6. ESRD with HD 7. Lower extremity wounds: -podiatry consult -as above 8. Hypoalbuminemia: likely 2/2 malnutrition + inflammation -supportive -optimize nutrition 9. Coagulopathy: on Eliquis outpatient 10.UTI: -abx per sensitivity -frequent bladder emptying/cath care 11. Diabetes -diet and medication optimization 12. History of falls -PT as patient condition permits -fall precautions 13. Overweight -diet optimization Thank you, Late entry 03/11 Problems: Subjective 24 Hr Interval Summary CDiff. Funguria. Leukocytosis worse today. Mod drainage from wounds. Diarrhea. No fevers, chills, sob, congested cough, cp, palpitations, sexton, dizziness, n/v. Exam/Review of Systems Vital Signs Vitals Vital Signs Date Time Temp Pulse Resp B/P Pulse Ox O2 Delivery O2 Flow Rate FiO2 03/12/17 00:00 110 03/11/17 19:47 Nasal Cannula 2.0 03/11/17 18:09 16 03/11/17 17:59 98.3 95/59 95 Intake and Output 03/11/17 03/11/17 03/12/17 15:00 23:00 07:00 Intake Total 700 ml Output Total 1500 ml Balance -800 ml Exam Free Text/Dictation Constitutional: alert, oriented Psych: anxiety, Head: atraumatic, normocephalic Eyes: nl lids, nl sclera ENMT: No nl lips & teeth (missing teeth-poor dentition) Neck: non-tender, supple Respiratory: diminished Cardiovascular: regular rate and rhythm Gastrointestinal: non-tender, other (obese), soft : roberson with creamy brown drainage Musculoskeletal: muscle weakness: BLE. No nl gait and stance Extremities: No edema, No normal pulses Neurological: nl speech, nl strength Skin: other (wounds: bilat thigh/trochanter area with areas of necrotic tissue , wound bed with slough, mod green drainage, malodorous); necrotic skin on right arm Results Result Diagram: 03/11/17 0744 03/11/17 0756 HALEY HERNANDEZ MD Mar 12, 2017 03:36
--- NOTE | 2017-03-12 03:36 | PN ---
Date/Time of Note Date/Time of Note DATE: 03/11/17 TIME: 19:30 Assessment/Plan Lines/Catheters IV Catheter Type (from [facility]): PICC Line Roberson in Place (from [facility]): No Assessment/Plan Chief Complaint/Hosp Course 1. Bilateral upper thighs and right flank wounds: 2/2 pressure from immobility; -debridement prn -local wound care with dakin's -offloading and turning frequently -specialty mattress -abx per sensitivity 2.Sepsis: multifactorial: 2/2 #1 + pna + uti (funguria) + cdiff colitis -supportive -as above 3. Normocytic hypochromic anemia: hx of gi bleed esophagitis, gastritis; -monitor and transfuse prn -antacids 4. Leukocytosis: worsened -as above 5. Proctocolitis c CDiff -abx per ID -gi f/u 6. ESRD with HD 7. Lower extremity wounds: -podiatry consult -as above 8. Hypoalbuminemia: likely 2/2 malnutrition + inflammation -supportive -optimize nutrition 9. Coagulopathy: on Eliquis outpatient 10.UTI: -abx per sensitivity -frequent bladder emptying/cath care 11. Diabetes -diet and medication optimization 12. History of falls -PT as patient condition permits -fall precautions 13. Overweight -diet optimization Thank you, Late entry 03/11 Problems: Subjective 24 Hr Interval Summary CDiff. Funguria. Leukocytosis worse today. Mod drainage from wounds. Diarrhea. No fevers, chills, sob, congested cough, cp, palpitations, sexton, dizziness, n/v. Exam/Review of Systems Vital Signs Vitals Vital Signs Date Time Temp Pulse Resp B/P Pulse Ox O2 Delivery O2 Flow Rate FiO2 03/12/17 00:00 110 03/11/17 19:47 Nasal Cannula 2.0 03/11/17 18:09 16 03/11/17 17:59 98.3 95/59 95 Intake and Output 03/11/17 03/11/17 03/12/17 15:00 23:00 07:00 Intake Total 700 ml Output Total 1500 ml Balance -800 ml Exam Free Text/Dictation Constitutional: alert, oriented Psych: anxiety, Head: atraumatic, normocephalic Eyes: nl lids, nl sclera ENMT: No nl lips & teeth (missing teeth-poor dentition) Neck: non-tender, supple Respiratory: diminished Cardiovascular: regular rate and rhythm Gastrointestinal: non-tender, other (obese), soft : roberson with creamy brown drainage Musculoskeletal: muscle weakness: BLE. No nl gait and stance Extremities: No edema, No normal pulses Neurological: nl speech, nl strength Skin: other (wounds: bilat thigh/trochanter area with areas of necrotic tissue , wound bed with slough, mod green drainage, malodorous); necrotic skin on right arm Results Result Diagram: 03/11/17 0744 03/11/17 0756 HALEY HERNANDEZ MD Mar 12, 2017 03:36
--- NOTE | 2017-03-12 03:51 | CONS ---
DATE OF ADMISSION: 03/08/2017 DATE OF CONSULTATION: 03/11/2017 CHIEF COMPLAINT: Bilateral heel ulcerations. HISTORY OF PRESENT ILLNESS: This is a 61-year-old female admitted for sepsis workup. The patient w ith multiple extremity ulcerations. The patient is a poor historian. PAST MEDICAL HISTORY: 1. Altered mental status. 2. Leukocytosis. 3. Normocytic anemia. 4. Hypercalcemia. 5. End-stage renal disease on hemodialysis with recent aVF. 6. Diabetes. 7. Morbid obesity. 8. Urinary tract infection. 9. Pneumonia. 10. Urinary tract infection. 11. Chronic A-Fib. 12. Hypertension FAMILY HISTORY: Noncontributory. ALLERGIES: NONE. SOCIAL HISTORY: Former smoker. MEDICATIONS: Reviewed. PHYSICAL EXAMINATION: VITAL SIGNS: Temperature is 98.5, pulse is 76, respiratory rate 18, blood pressure 98/62, pulse ox is 98%. GENERAL: The patient is confused. No acute distress. Regular respiration. EXTREMITIES: The patient with bilateral heel ulcerations, unstageable depth with right heel approxi mately 4 x 3 cm. The left heel 2 x 2 cm. The skin is dry. It is a 1+ DP pulse. Mild edema. SKIN: Subcutaneous atrophy. The patient with multiple wounds on the sacral coccyx, left and right ischium, left forearm and right hip. LABORATORIES: WBC of 30, hemoglobin 10.3, hematocrit is 33.2, platelets of 387. Sodium 149, potass ium 3.4, chloride 112, CO2 19, BUN 46, creatinine of 6.29. Abdomen and pelvic CT: Proctocolitis, atrophic horseshoe kidney, diffuse atherosclerosis, small babak ateral effusions with partial atelectasis, anasarca, edema. Brain CT without evidence of acute intr acranial pathology. Chest x-ray with trace left pleural effusion. Left hip wound cultures with gram-negative rods. Right hip culture: Gram-negative rods. Stool cul ture: Coliform. Urine with Giselle. The foot x-ray is pending. ASSESSMENT 1. Bilateral heel decubitus ulceration, unstageable. 2. Leukocytosis. 3. End-stage renal disease on hemodialysis. 4. Recent arteriovenous fistula repair. 5. Altered mental status. 6. Pneumonia. 7. Urinary tract infection. 8. Diabetes with nephropathy. PLAN: The patient was seen and evaluated. Obtain radiographs of bilateral feet. Nursing recommend ations given. B.i.d. wound cleansing with Dakin's application of Santyl. RECOMMENDATIONS: Further recommendations with culture results obtained. At this time, the wound is without exudate and no cultures obtainable. Thank you for the consultation. Dictated By: NOÉ NEAL/BLANCA Conf#: [id number] DID#: [id number]
[2017-03-12] MEDS: Metronidazole 500 MG in NS 100 ML IVPB SCH ×3 (05:26→22:01)
--- NOTE | 2017-03-12 08:34 | RADRPT ---
PROCEDURE: XR Right Foot. CLINICAL INDICATION: Right foot pain. Heel ulcer. TECHNIQUE: Two views. Frontal and lateral. COMPARISON: None. FINDINGS: There is no fracture or dislocation. There is a heel ulcer. Vascular calcifications are present consistent with atherosclerosis. Articular surfaces are intact. There is no lytic or blastic lesion. There is no radiopaque foreign body. IMPRESSION: 1. Heel ulcer. 2. Atherosclerosis. 3. No lytic lesion. 4. Otherwise unremarkable images of the right foot. RPTAT: QQ .Bandar Adamson MD, MD Date Time Electronically viewed and signed by .Bandar Adamson MD, on 03/12/2017 08:33 .R/
--- NOTE | 2017-03-12 08:35 | RADRPT ---
PROCEDURE: XR Left Foot. CLINICAL INDICATION: Left foot pain. TECHNIQUE: Two views. Frontal and lateral. COMPARISON: None. FINDINGS: There is a possible acute mildly angulated fracture of the base of the fifth proximal phalanx. There is no other fracture and there is no dislocation. Vascular calcifications are present consistent with atherosclerosis. Articular surfaces are intact. There is no lytic or blastic lesion. There is no radiopaque foreign body. IMPRESSION: 1. Possible fracture of the base of the fifth proximal phalanx. Correlation with radiographs of the left fifth toe advised. 2. Atherosclerosis. 3. No lytic lesion. 4. Otherwise unremarkable images of the left foot. RPTAT: QQ .Bandar Adamson MD, MD Date Time Electronically viewed and signed by .Bandar Adamson MD, on 03/12/2017 08:35 .R/
[2017-03-12] MEDS: COLLAGENASE 30 GM TUBE TOP SCH ×2 (09:00→22:01)
[2017-03-12] MEDS: SODIUM HYPOCHLORITE 0.125% 473 ML BTL IRR SCH ×2 (09:00→21:58)
[2017-03-12] MEDS: VORICONAZOLE 200 MG TAB PO SCH ×2 (09:52→21:59)
[2017-03-12] MEDS: HEPARIN 5,000 UNIT/0.5 ML VIAL SC SCH ×2 (10:00→22:03)
--- NOTE | 2017-03-12 12:00 | PN ---
Date/Time of Note Date/Time of Note DATE: 03/12/17 TIME: 11:57 Assessment/Plan VTE Prophylaxis VTE Prophylaxis Intervention: heparin Lines/Catheters Urinary Cath still in place: No Assessment/Plan Chief Complaint/Hosp Course 1. Sepsis with acute metabolic encephalopathy secondary to UTI and/or C. difficile colitis and/or wounds Patient growing Pseudomonas and various wounds C. difficile is positive Have added Flagyl IV, continue vancomycin and meropenem Zosyn Follow-up on urine culture Mentation continues to decline 2. 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 Chronic left lower extremity ulcer as well as wounds in both arms Wound care, debridement Surgery consultation appreciated 4. Chronic A. fib 5. History of hypertension Hold home meds secondary to sepsis 6. Debility with deconditioning Patient's functional status continues to decline, have consulted palliative care Patient's condition continues to worsen Prophylaxis: Heparin Problems: Subjective 24 Hr Interval Summary Constitutional: disoriented Exam/Review of Systems Vital Signs Vitals Vital Signs Date Time Temp Pulse Resp B/P Pulse Ox O2 Delivery O2 Flow Rate FiO2 03/12/17 10:00 96 96/51 03/12/17 08:00 98.0 16 98 03/12/17 04:00 Room Air 03/11/17 19:47 2.0 Intake and Output 03/11/17 03/11/17 03/12/17 15:00 23:00 07:00 Intake Total 700 ml 540 ml Output Total 1500 ml Balance -800 ml 540 ml Exam Psych: confusion Respiratory: clear to auscultation Cardiovascular: regular rate and rhythm Gastrointestinal: soft, No distended Musculoskeletal: No nl extremities to inspection Results Result Diagram: 03/12/17 0655 03/12/17 0655 Results 24 hrs Laboratory Tests Test 03/12/17 06:55 White Blood Count 23.4 #H Red Blood Count 2.89 #L Hemoglobin 8.0 #L Hematocrit 25.9 #L Mean Corpuscular Volume 89.6 Mean Corpuscular Hemoglobin 27.7 L Mean Corpuscular Hemoglobin Concent 30.9 L Red Cell Distribution Width 24.1 H Platelet Count 336 Mean Platelet Volume 10.1 Neutrophils % Segmented Neutrophils % (Manual) 80 H Band Neutrophils % (Manual) 2 Lymphocytes % Lymphocytes % (Manual) 9 L Monocytes % Monocytes % (Manual) 1 Eosinophils % Basophils % Metamyelocytes % (manual) 1 H Myelocytes % (Manual) 4 H Promyelocytes % (Manual) 3 H Nucleated Red Blood Cells % 1 H Neutrophils # Neutrophils # (Manual) 18.8 H Band Neutrophils # 0.4 Absolute Lymphocytes (Manual) 2.1 Lymphocytes # Monocytes # Absolute Monocytes (Manual) 0.2 L Eosinophils # Basophils # Metamyelocytes # 0.2 H Myelocytes # 0.9 H Promyelocytes # 0.7 H Nucleated Red Blood Cells # Platelet Estimate NORMAL Polychromasia 3+ Poikilocytosis 3+ Anisocytosis 3+ Microcytosis 2+ Macrocytosis 2+ Sodium Level 148 H Potassium Level 3.2 L Chloride Level 112 H Carbon Dioxide Level 22 Anion Gap 17 H Blood Urea Nitrogen 30 #H Creatinine 4.53 #H Glucose Level 72 Calcium Level 8.4 Medications Medications Current Medications Ondansetron HCl (Zofran Inj) 4 mg Q6H PRN IV NAUSEA AND/OR VOMITING; Start at 17:30 Acetaminophen (Tylenol Tab) 650 mg Q6H PRN PO PAIN LEVEL 1-3 OR FEVER; Start 03/08/17 at 17:30 Acetaminophen/ Hydrocodone Bitart ([place] (5/325)) 1 tab Q6H PRN PO MODERATE PAIN LEVEL 4-6 Last administered on 03/11/17 22:20; Admin Dose 1 TAB; Start 03/08/17 at 17:30 Morphine Sulfate (morphine) 2 mg Q4H PRN IV SEVERE PAIN LEVEL 7-10 Last administered on 03/11/17 18:32; Admin Dose 2 MG; Start 03/08/17 at 17:30 Heparin Sodium (Porcine) 5000 unit 5,000 unit Q12 SC Last administered on 03/12 10:00; Admin Dose 5,000 UNIT; Start 03/08/17 at 21:00 Meropenem/Sodium Chloride 50 ml @ 100 mls/hr Q24H IVPB Last administered on 18:14; Admin Dose 100 MLS/HR; Start 03/09/17 at 14:00 Metronidazole (Flagyl 500 Mg (Pmx)) 100 ml @ 100 mls/hr Q8 IVPB Last administered on 03/12/17 05:26; Admin Dose 100 MLS/HR; Start 03/08/17 at 22: 00 Sodium Hypochlorite (Dakin'S (1/4 Strength)) 1 applic BID IRR Last administered on 03/12/17 09:00; Admin Dose 1 APPLIC; Start 03/10/17 at 09:00 Voriconazole (Vfend) 200 mg BID PO Last administered on 03/12/17 09:52; Admin Dose 200 MG; Start 03/10/17 at 21:00 IV Flush (NS 10 ml) 10 ml PRN PRN IV IV PROTOCOL; Start 03/11/17 at 17:30 Collagenase (Santyl) 1 applic BID TOP Last administered on 03/12/17 09:00; Admin Dose 1 APPLIC; Start 03/11/17 at 21:00 Midodrine (Proamatine) 10 mg TID PO Last administered on 03/12/17 09:52; Admin Dose 10 MG; Start 03/12/17 at 02:30 Miscellaneous Information (*Rx Drug Level Order Reminder*) RANDOM VANOCMYCIN LEVEL ... ONCE ONCE XX ; Start 03/13/17 at 05:00; Stop 03/13/17 at 05:01 MICHAEL COULTER Mar 12, 2017 12:00
--- NOTE | 2017-03-12 12:57 | CONS ---
Date/Time of Note Date/Time of Note DATE: 03/12/17 TIME: 12:29 Assessment/Plan Assessment/Plan Chief Complaint/Hosp Course ID PROGRESS NOTE CURRENT ABX: DAY #4 =>Vanco IV + Merrem + Vfend + Flagyl + ADD TODAY: Colymycin + Vanco liq PO LABS: 03/12/17 0655 03/12/17 0655 24H INTERVAL SUMMARY * Sleeping --supplemental O2 via NC, obese F, VSS, no fevers, NAD * WBC high 30.0-> down to 23. 4 today * 03/11/17 CXR: IMPRESSION:1. Right arm PICC line tip in satisfactory position.2. Pulmonary edema.3. Cardiomegaly.4. Atherosclerosis. 5. Otherwise normal chest radiograph * MICRO 03/10/17 : * RIGHT HIP: WOUND CULTURE Preliminary Organism 1 PSEUDOMONAS AERUGINOSA QUANTITY 2+ * LEFT HIP WOUND CULTURE Preliminary Organism 1 PSEUDOMONAS AERUGINOSA QUANTITY 2+ Organism 2 GRAM NEGATIVE WILLIAM QUANTITY 2+ * RIGHT ARM WOUND CULTURE Preliminary Organism 1 ACINETOBACTER BAUMANNII QUANTITY 3+ A.BAUMANNI M.I.C. RX --------- --- AMIKACIN R CEFEPIME >=64 R CEFOTAXIME R CEFTAZIDIME >=64 R CIPROFLOXACIN >=4 R GENTAMICIN >=16 R IMIPENEM >=16 R LEVOFLOXACIN >=8 R TOBRAMYCIN >=16 R TRIMETHOPRIM/SULFAMETHOXAZOLE <=20 S PIPERACILLIN/TAZOBACTAM >=128 R PHYSICAL EXAMINATION: GENERAL: VSS, NAD, obese F HEENT: Unremarkable NECK: Supple CHEST: Rise symmetrical bilaterally, without dyspnea on observation CV: 2+ bilateral radial pulse ABDOMEN: Soft, flat, large, obese EXTREMITIES: Warm, Bilateral edema left upper thigh lateral part with necrotic wound, bilateral hip wounds, bilateral heel wounds, upper extremity wounds ID ASSESSMENT: 61 yo obese F admit with: 1. Sepsis on admission w/transient hypotension + significant leukocytosis + altered mental status due to recurrent infected wounds + C.Diff + UTI * 03/08/17 BCx (-) * Leukocytosis: WBC high 30.0 --> today 23.4 * (+)C.Diff colitis w/diarrhea per 03/09/17 stool toxin result * UTI 03/08 => KAMALA GLABRATA > 100,000 2. Multiple wounds: * Bilateral hip wounds * RIGHT HIP: WOUND CULTURE Preliminary Organism 1 2+ PSEUDOMONAS AERUGINOSA * LEFT HIP WOUND CULTURE Preliminary Organism 1 2+ PSEUDOMONAS AERUGINOSA Organism 2 2+ GRAM NEGATIVE WILLIAM * Infected left thigh wound, status post multiple debridement in the past * Bilateral heel decubs * 03/10/17 RIGHT ARM WOUND CULTURE Preliminary Organism 1 ACINETOBACTER BAUMANNII 3. End-stage renal disease w/volume overload * s/p AVF 4. COPD 5. CV: HTN, Afib, CAD w/HTN heart disease=> CXR w/ (+) Pulmonary edema. Cardiomegaly. Atherosclerosis. 6. Coagulopathy on Eliquis w/Anemia => hx of UGIB last admission 7. Diabetes w/polyneuropathies: Nephro, Autonomic dysreflexia, peripheral 8. Depression w/hx of psychosis (-) MRSA Nares INVASIVES: PICC (03/11/17) ABX ALLERGY: PCN, CIPRO CURRENT ABX=> DAY #4 =>Vanco IV + Merrem + Vfend + Flagyl + ADD TODAY: Colymycin + Vanco liq PO ID PLAN 1. Adding Colymycin to cover MDRO GNR ACBA in upper extremity wound 2. Continue current ABX 3. Local wound care . . Problems: Consultation Date/Type/Reason Admit Date/Time Mar 08, 2017 at 14:45 Initial Consult Date 03/09/17 Type of Consultation: ID Referring Provider: MICHAEL COULTER Exam/Review of Systems Vital Signs Vitals Vital Signs Date Time Temp Pulse Resp B/P Pulse Ox O2 Delivery O2 Flow Rate FiO2 03/12/17 12:24 108 03/12/17 10:00 96/51 03/12/17 08:00 98.0 16 98 03/12/17 04:00 Room Air 03/11/17 19:47 2.0 Intake and Output 03/11/17 03/11/17 03/12/17 15:00 23:00 07:00 Intake Total 700 ml 540 ml Output Total 1500 ml Balance -800 ml 540 ml Results Result Diagram: 03/12/17 0655 03/12/17 0655 Results 24 hrs Laboratory Tests Test 03/12/17 06:55 White Blood Count 23.4 #H Red Blood Count 2.89 #L Hemoglobin 8.0 #L Hematocrit 25.9 #L Mean Corpuscular Volume 89.6 Mean Corpuscular Hemoglobin 27.7 L Mean Corpuscular Hemoglobin Concent 30.9 L Red Cell Distribution Width 24.1 H Platelet Count 336 Mean Platelet Volume 10.1 Neutrophils % Segmented Neutrophils % (Manual) 80 H Band Neutrophils % (Manual) 2 Lymphocytes % Lymphocytes % (Manual) 9 L Monocytes % Monocytes % (Manual) 1 Eosinophils % Basophils % Metamyelocytes % (manual) 1 H Myelocytes % (Manual) 4 H Promyelocytes % (Manual) 3 H Nucleated Red Blood Cells % 1 H Neutrophils # Neutrophils # (Manual) 18.8 H Band Neutrophils # 0.4 Absolute Lymphocytes (Manual) 2.1 Lymphocytes # Monocytes # Absolute Monocytes (Manual) 0.2 L Eosinophils # Basophils # Metamyelocytes # 0.2 H Myelocytes # 0.9 H Promyelocytes # 0.7 H Nucleated Red Blood Cells # Platelet Estimate NORMAL Polychromasia 3+ Poikilocytosis 3+ Anisocytosis 3+ Microcytosis 2+ Macrocytosis 2+ Sodium Level 148 H Potassium Level 3.2 L Chloride Level 112 H Carbon Dioxide Level 22 Anion Gap 17 H Blood Urea Nitrogen 30 #H Creatinine 4.53 #H Glucose Level 72 Calcium Level 8.4 Medications Medications Current Medications Ondansetron HCl (Zofran Inj) 4 mg Q6H PRN IV NAUSEA AND/OR VOMITING; Start at 17:30 Acetaminophen (Tylenol Tab) 650 mg Q6H PRN PO PAIN LEVEL 1-3 OR FEVER; Start 03/08/17 at 17:30 Acetaminophen/ Hydrocodone Bitart ([place] (5/325)) 1 tab Q6H PRN PO MODERATE PAIN LEVEL 4-6 Last administered on 03/11/17 22:20; Admin Dose 1 TAB; Start 03/08/17 at 17:30 Morphine Sulfate (morphine) 2 mg Q4H PRN IV SEVERE PAIN LEVEL 7-10 Last administered on 03/11/17 18:32; Admin Dose 2 MG; Start 03/08/17 at 17:30 Heparin Sodium (Porcine) 5000 unit 5,000 unit Q12 SC Last administered on 03/12 10:00; Admin Dose 5,000 UNIT; Start 03/08/17 at 21:00 Meropenem/Sodium Chloride 50 ml @ 100 mls/hr Q24H IVPB Last administered on 18:14; Admin Dose 100 MLS/HR; Start 03/09/17 at 14:00 Metronidazole (Flagyl 500 Mg (Pmx)) 100 ml @ 100 mls/hr Q8 IVPB Last administered on 03/12/17 05:26; Admin Dose 100 MLS/HR; Start 03/08/17 at 22: 00 Sodium Hypochlorite (Dakin'S (1/4 Strength)) 1 applic BID IRR Last administered on 03/12/17 09:00; Admin Dose 1 APPLIC; Start 03/10/17 at 09:00 Voriconazole (Vfend) 200 mg BID PO Last administered on 03/12/17 09:52; Admin Dose 200 MG; Start 03/10/17 at 21:00 IV Flush (NS 10 ml) 10 ml PRN PRN IV IV PROTOCOL; Start 03/11/17 at 17:30 Collagenase (Santyl) 1 applic BID TOP Last administered on 03/12/17 09:00; Admin Dose 1 APPLIC; Start 03/11/17 at 21:00 Midodrine (Proamatine) 10 mg TID PO Last administered on 03/12/17 09:52; Admin Dose 10 MG; Start 03/12/17 at 02:30 Miscellaneous Information (*Rx Drug Level Order Reminder*) RANDOM VANOCMYCIN LEVEL ... ONCE ONCE XX ; Start 03/13/17 at 05:00; Stop 03/13/17 at 05:01 STEFAN COMBS NP Mar 12, 2017 12:40
[2017-03-12] MEDS: MEROPENEM 500MG/50 ML (PMX) 50 ML IVPB SCH (13:21)
[2017-03-12] MEDS: COLISTIMETHATE 150 MG in SOD CHLORIDE 0.9% 100 ML IVPB SCH (15:35)
[2017-03-12] MEDS: VANCOMYCIN HCL 250 MG/5ML POSYG PO SCH (18:03)
--- NOTE | 2017-03-12 18:07 | PN ---
Date/Time of Note Date/Time of Note DATE: 03/12/17 TIME: 18:06 Assessment/Plan Lines/Catheters [place] in Place (from [facility]): No Assessment/Plan Chief Complaint/Hosp Course 1. Bilateral upper thighs and right flank wounds: 2/2 pressure from immobility; -debridement prn -local wound care with dakin's -offloading and turning frequently -specialty mattress -abx per sensitivity 2.Sepsis: multifactorial: 2/2 #1 + pna + uti (funguria) + cdiff colitis -supportive -as above 3. Normocytic hypochromic anemia: hx of gi bleed esophagitis, gastritis; -monitor and transfuse prn -antacids 4. Leukocytosis: worsened -as above 5. Proctocolitis c CDiff -abx per ID -gi f/u 6. ESRD with HD 7. Lower extremity wounds: -podiatry consult -as above 8. Hypoalbuminemia: likely 2/2 malnutrition + inflammation -supportive -optimize nutrition 9. Coagulopathy: on Eliquis outpatient 10.UTI: -abx per sensitivity -frequent bladder emptying/cath care 11. Diabetes -diet and medication optimization 12. History of falls -PT as patient condition permits -fall precautions 13. Overweight -diet optimization Thank you, Problems: Subjective 24 Hr Interval Summary CDiff. Funguria. Leukocytosis slightly improved. Mod drainage from wounds. Diarrhea. No fevers, chills, sob, congested cough, cp, palpitations, sexton, dizziness, n/v. Exam/Review of Systems Vital Signs Vitals Vital Signs Date Time Temp Pulse Resp B/P Pulse Ox O2 Delivery O2 Flow Rate FiO2 03/12/17 16:57 98.0 79 18 113/55 98 03/12/17 14:00 Room Air 03/11/17 19:47 2.0 Intake and Output 03/11/17 03/11/17 03/12/17 15:00 23:00 07:00 Intake Total 700 ml 540 ml Output Total 1500 ml Balance -800 ml 540 ml Exam Free Text/Dictation Constitutional: alert, oriented Psych: anxiety, Head: atraumatic, normocephalic Eyes: nl lids, nl sclera ENMT: No nl lips & teeth (missing teeth-poor dentition) Neck: non-tender, supple Respiratory: diminished Cardiovascular: regular rate and rhythm Gastrointestinal: non-tender, other (obese), soft : roberson with creamy brown drainage Musculoskeletal: muscle weakness: BLE. No nl gait and stance Extremities: No edema, No normal pulses Neurological: nl speech, nl strength Skin: other (wounds: bilat thigh/trochanter area with areas of necrotic tissue , wound bed with slough, mod green drainage, malodorous); necrotic skin on right arm Results Result Diagram: 03/12/17 0655 03/12/17 0655 HALEY HERNANDEZ MD Mar 12, 2017 18:07
[2017-03-12] MEDS ORDERED: POTASSIUM CHLORIDE 20 MEQ POWDER FOR ORAL SOLN NGT ONE (20:30)
[2017-03-13] VITALS (19 sets, daily range): BP systolic 77–137; BP diastolic 37–77; PULSE 73–105; RESP 16–18
[2017-03-13] MEDS: VANCOMYCIN HCL 250 MG/5ML POSYG PO SCH ×5 (00:35→22:52)
[2017-03-13] MEDS: Metronidazole 500 MG in NS 100 ML IVPB SCH ×3 (05:30→22:41)
[2017-03-13] MEDS: VORICONAZOLE 200 MG TAB PO SCH ×2 (09:04→21:00)
[2017-03-13] MEDS: HEPARIN 5,000 UNIT/0.5 ML VIAL SC SCH ×2 (09:04→21:00)
[2017-03-13] MEDS: MIDODRINE 5 MG TAB PO SCH ×3 (09:07→21:00)
[2017-03-13] MEDS: COLLAGENASE 30 GM TUBE TOP SCH ×2 (10:16→21:24)
[2017-03-13] MEDS: SODIUM HYPOCHLORITE 0.125% 473 ML BTL IRR SCH ×2 (10:16→21:23)
[2017-03-13] MEDS: MEROPENEM 500MG/50 ML (PMX) 50 ML IVPB SCH (14:34)
[2017-03-13] MEDS ORDERED: FUROSEMIDE 40 MG INJ IV ONE (18:30)
[2017-03-13] MEDS ORDERED: morphine 2 MG INJ IV ONE (18:30)
--- NOTE | 2017-03-13 19:05 | PN ---
Date/Time of Note Date/Time of Note DATE: 03/13/17 TIME: 19:01 Assessment/Plan VTE Prophylaxis VTE Prophylaxis Intervention: heparin Lines/Catheters Urinary Cath still in place: No Assessment/Plan Chief Complaint/Hosp Course 1. Sepsis with acute metabolic encephalopathy secondary to UTI and/or C. difficile colitis and/or wounds Patient growing Pseudomonas at various wounds C. difficile is positive Continue vancomycin and meropenem and Flagyl Colistin added by ID Mentation and functional status continues to decline, discuss goals of care with daughter 2. 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 Chronic left lower extremity ulcer as well as wounds in both arms Wound care, debridement Surgery consultation appreciated 4. Chronic A. fib 5. History of hypertension Hold home meds secondary to sepsis 6. Debility with deconditioning Patient's functional status continues to decline, have consulted palliative care Patient has poor prognosis, will need to discuss goals of care with daughter, patient has a partner but they are not legally and hence daughter is the decision-maker Prophylaxis: Heparin Problems: Subjective 24 Hr Interval Summary Constitutional: disoriented Exam/Review of Systems Vital Signs Vitals Vital Signs Date Time Temp Pulse Resp B/P Pulse Ox O2 Delivery O2 Flow Rate FiO2 03/13/17 18:27 105 03/13/17 18:00 Non Rebreather 15.0 03/13/17 16:00 98.0 18 94/56 98 Intake and Output 03/12/17 03/12/17 03/13/17 15:00 23:00 07:00 Intake Total 50 ml 800 ml Balance 50 ml 800 ml Exam Psych: confusion Respiratory: clear to auscultation Cardiovascular: regular rate and rhythm Gastrointestinal: soft, No distended Musculoskeletal: No nl extremities to inspection Results Result Diagram: 03/13/17 0534 03/13/17 0534 Results 24 hrs Laboratory Tests Test 03/13/17 05:34 03/13/17 18:12 White Blood Count 28.0 H Red Blood Count 2.96 L Hemoglobin 8.3 L Hematocrit 27.3 L Mean Corpuscular Volume 92.2 Mean Corpuscular Hemoglobin 28.0 L Mean Corpuscular Hemoglobin Concent 30.4 L Red Cell Distribution Width 24.6 H Platelet Count 382 Mean Platelet Volume 10.3 Neutrophils % 76.6 Lymphocytes % 9.4 L Monocytes % 4.8 Eosinophils % 2.0 Basophils % 0.4 Nucleated Red Blood Cells % 0.6 H Neutrophils # 21.5 H Lymphocytes # 2.6 Monocytes # 1.3 H Eosinophils # 0.6 H Basophils # 0.1 Nucleated Red Blood Cells # 0.2 H Sodium Level 147 H Potassium Level 3.6 Chloride Level 114 H Carbon Dioxide Level 22 Anion Gap 15 Blood Urea Nitrogen 33 H Creatinine 4.79 H Glucose Level 78 Calcium Level 8.5 Random Vancomycin Level 20.2 Bedside Glucose 136 Medications Medications Current Medications Ondansetron HCl (Zofran Inj) 4 mg Q6H PRN IV NAUSEA AND/OR VOMITING; Start at 17:30 Acetaminophen (Tylenol Tab) 650 mg Q6H PRN PO PAIN LEVEL 1-3 OR FEVER; Start 03/08/17 at 17:30 Acetaminophen/ Hydrocodone Bitart ([place] (5/325)) 1 tab Q6H PRN PO MODERATE PAIN LEVEL 4-6 Last administered on 03/11/17 22:20; Admin Dose 1 TAB; Start 03/08/17 at 17:30 Morphine Sulfate (morphine) 2 mg Q4H PRN IV SEVERE PAIN LEVEL 7-10 Last administered on 03/11/17 18:32; Admin Dose 2 MG; Start 03/08/17 at 17:30 Heparin Sodium (Porcine) 5000 unit 5,000 unit Q12 SC Last administered on 03/13 09:04; Admin Dose 5,000 UNIT; Start 03/08/17 at 21:00 Meropenem/Sodium Chloride 50 ml @ 100 mls/hr Q24H IVPB Last administered on 14:34; Admin Dose 100 MLS/HR; Start 03/09/17 at 14:00 Metronidazole (Flagyl 500 Mg (Pmx)) 100 ml @ 100 mls/hr Q8 IVPB Last administered on 03/13/17 13:18; Admin Dose 100 MLS/HR; Start 03/08/17 at 22: 00 Sodium Hypochlorite (Dakin'S (1/4 Strength)) 1 applic BID IRR Last administered on 03/13/17 10:16; Admin Dose 1 APPLIC; Start 03/10/17 at 09:00 Voriconazole (Vfend) 200 mg BID PO Last administered on 03/13/17 09:04; Admin Dose 200 MG; Start 03/10/17 at 21:00 IV Flush (NS 10 ml) 10 ml PRN PRN IV IV PROTOCOL; Start 03/11/17 at 17:30 Collagenase (Santyl) 1 applic BID TOP Last administered on 03/13/17 10:16; Admin Dose 1 APPLIC; Start 03/11/17 at 21:00 Midodrine 10 mg 10 mg TID PO Last administered on 03/13/17 12:19; Admin Dose 10 MG; Start 03/12/17 at 02:30 Colistimethate Sodium/Sodium Chloride (Coly-Mycin/NS) 100 ml @ 200 mls/hr Q36H IVPB Last administered on 03/12/17 15:35; Admin Dose 200 MLS/HR; Start 03/12 at 15:00 Vancomycin HCl 125 mg 125 mg Q6 PO Last administered on 03/13/17 17:49; Admin Dose 125 MG; Start 03/12/17 at 18:00 Vancomycin HCl (Vancocin) 250 ml @ 125 mls/hr 11 IVPB ; Start 03/14/17 at 11: 00; Stop 03/14/17 at 20:00 MICHAEL COULTER Mar 13, 2017 19:05
--- NOTE | 2017-03-13 19:47 | CONS ---
Date/Time of Note Date/Time of Note DATE: 03/13/17 TIME: 19:45 Assessment/Plan Assessment/Plan Chief Complaint/Hosp Course ID PROGRESS NOTE CURRENT ABX: DAY #5 =>Vanco IV + Merrem + Vfend + Flagyl + Colymycin #2 + Vanco liq PO 24H INTERVAL SUMMARY * Sleeping --supplemental O2 via NC, obese F, VSS, no fevers, NAD * WBC high 30.0-> down to 23. 4 today * MICRO 03/10/17 : * RIGHT HIP: WOUND CULTURE Preliminary Organism 1 PSEUDOMONAS AERUGINOSA QUANTITY 2+ * LEFT HIP WOUND CULTURE Preliminary Organism 1 PSEUDOMONAS AERUGINOSA QUANTITY 2+ Organism 2 ACINETOBACTER BAUMANNII QUANTITY 2+ Organism 3 YEAST QUANTITY SCANT GROWTH * RIGHT ARM WOUND CULTURE Preliminary Organism 1 ACINETOBACTER BAUMANNII QUANTITY 3+ A.BAUMANNI M.I.C. RX --------- --- AMIKACIN R CEFEPIME >=64 R CEFOTAXIME R CEFTAZIDIME >=64 R CIPROFLOXACIN >=4 R GENTAMICIN >=16 R IMIPENEM >=16 R LEVOFLOXACIN >=8 R TOBRAMYCIN >=16 R TRIMETHOPRIM/SULFAMETHOXAZOLE <=20 S PIPERACILLIN/TAZOBACTAM >=128 R PHYSICAL EXAMINATION: GENERAL: VSS, NAD, obese F HEENT: Unremarkable NECK: Supple CHEST: Rise symmetrical bilaterally, without dyspnea on observation CV: 2+ bilateral radial pulse ABDOMEN: Soft, flat, large, obese EXTREMITIES: Warm, Bilateral edema left upper thigh lateral part with necrotic wound, bilateral hip wounds, bilateral heel wounds, upper extremity wounds ID ASSESSMENT: 61 yo obese F admit with: 1. Sepsis on admission w/transient hypotension + significant leukocytosis + altered mental status due to recurrent infected wounds + C.Diff + UTI * 03/08/17 BCx (-) * Leukocytosis: WBC high 30.0 --> today 23.4 * (+)C.Diff colitis w/diarrhea per 03/09/17 stool toxin result * UTI 03/08 => KAMALA GLABRATA > 100,000 2. Multiple wounds: * Bilateral hip wounds * RIGHT HIP: WOUND CULTURE Preliminary Organism 1 PSEUDOMONAS AERUGINOSA QUANTITY 2+ Organism 2 ENTEROCOCCUS SPECIES QUANTITY ISOLATED FROM BROTH ONLY Organism 3 ACINETOBACTER BAUMANNII QUANTITY SCANT GROWTH * LEFT HIP WOUND CULTURE Preliminary Organism 1 PSEUDOMONAS AERUGINOSA QUANTITY 2+ Organism 2 ACINETOBACTER BAUMANNII QUANTITY 2+ Organism 3 YEAST QUANTITY SCANT GROWTH * Infected left thigh wound, status post multiple debridement in the past * Bilateral heel decubs * 03/10/17 RIGHT ARM WOUND CULTURE Preliminary Organism 1 ACINETOBACTER BAUMANNII 3. End-stage renal disease w/volume overload * s/p AVF 4. COPD 5. CV: HTN, Afib, CAD w/HTN heart disease=> CXR w/ (+) Pulmonary edema. Cardiomegaly. Atherosclerosis. 6. Coagulopathy on Eliquis w/Anemia => hx of UGIB last admission 7. Diabetes w/polyneuropathies: Nephro, Autonomic dysreflexia, peripheral 8. Depression w/hx of psychosis (-) MRSA Nares INVASIVES: PICC (03/11/17) ABX ALLERGY: PCN, CIPRO CURRENT ABX=> DAY #4 =>Vanco IV + Merrem + Vfend + Flagyl + Colymycin #2 + Vanco liq PO ID PLAN 1. Added Colymycin to cover MDRO GNR ACBA in wounds 2. Continue current ABX 3. Local wound care . . Problems: Consultation Date/Type/Reason Admit Date/Time Mar 08, 2017 at 14:45 Initial Consult Date 03/09/17 Type of Consultation: ID Referring Provider: MICHAEL COULTER Exam/Review of Systems Vital Signs Vitals Vital Signs Date Time Temp Pulse Resp B/P Pulse Ox O2 Delivery O2 Flow Rate FiO2 03/13/17 18:40 105 03/13/17 18:00 Non Rebreather 15.0 03/13/17 16:00 98.0 18 94/56 98 Intake and Output 03/12/17 03/12/17 03/13/17 15:00 23:00 07:00 Intake Total 50 ml 800 ml Balance 50 ml 800 ml Results Result Diagram: 03/13/17 0534 03/13/17 0534 Results 24 hrs Laboratory Tests Test 03/13/17 05:34 03/13/17 18:12 White Blood Count 28.0 H Red Blood Count 2.96 L Hemoglobin 8.3 L Hematocrit 27.3 L Mean Corpuscular Volume 92.2 Mean Corpuscular Hemoglobin 28.0 L Mean Corpuscular Hemoglobin Concent 30.4 L Red Cell Distribution Width 24.6 H Platelet Count 382 Mean Platelet Volume 10.3 Neutrophils % 76.6 Lymphocytes % 9.4 L Monocytes % 4.8 Eosinophils % 2.0 Basophils % 0.4 Nucleated Red Blood Cells % 0.6 H Neutrophils # 21.5 H Lymphocytes # 2.6 Monocytes # 1.3 H Eosinophils # 0.6 H Basophils # 0.1 Nucleated Red Blood Cells # 0.2 H Sodium Level 147 H Potassium Level 3.6 Chloride Level 114 H Carbon Dioxide Level 22 Anion Gap 15 Blood Urea Nitrogen 33 H Creatinine 4.79 H Glucose Level 78 Calcium Level 8.5 Random Vancomycin Level 20.2 Bedside Glucose 136 Medications Medications Current Medications Ondansetron HCl (Zofran Inj) 4 mg Q6H PRN IV NAUSEA AND/OR VOMITING; Start at 17:30 Acetaminophen (Tylenol Tab) 650 mg Q6H PRN PO PAIN LEVEL 1-3 OR FEVER; Start 03/08/17 at 17:30 Acetaminophen/ Hydrocodone Bitart ([place] (5/325)) 1 tab Q6H PRN PO MODERATE PAIN LEVEL 4-6 Last administered on 03/11/17 22:20; Admin Dose 1 TAB; Start 03/08/17 at 17:30 Morphine Sulfate (morphine) 2 mg Q4H PRN IV SEVERE PAIN LEVEL 7-10 Last administered on 03/11/17 18:32; Admin Dose 2 MG; Start 03/08/17 at 17:30 Heparin Sodium (Porcine) 5000 unit 5,000 unit Q12 SC Last administered on 03/13 09:04; Admin Dose 5,000 UNIT; Start 03/08/17 at 21:00 Meropenem/Sodium Chloride 50 ml @ 100 mls/hr Q24H IVPB Last administered on 14:34; Admin Dose 100 MLS/HR; Start 03/09/17 at 14:00 Metronidazole (Flagyl 500 Mg (Pmx)) 100 ml @ 100 mls/hr Q8 IVPB Last administered on 03/13/17 13:18; Admin Dose 100 MLS/HR; Start 03/08/17 at 22: 00 Sodium Hypochlorite (Dakin'S (1/4 Strength)) 1 applic BID IRR Last administered on 03/13/17 10:16; Admin Dose 1 APPLIC; Start 03/10/17 at 09:00 Voriconazole (Vfend) 200 mg BID PO Last administered on 03/13/17 09:04; Admin Dose 200 MG; Start 03/10/17 at 21:00 IV Flush (NS 10 ml) 10 ml PRN PRN IV IV PROTOCOL; Start 03/11/17 at 17:30 Collagenase (Santyl) 1 applic BID TOP Last administered on 03/13/17 10:16; Admin Dose 1 APPLIC; Start 03/11/17 at 21:00 Midodrine 10 mg 10 mg TID PO Last administered on 03/13/17 12:19; Admin Dose 10 MG; Start 03/12/17 at 02:30 Colistimethate Sodium/Sodium Chloride (Coly-Mycin/NS) 100 ml @ 200 mls/hr Q36H IVPB Last administered on 03/12/17 15:35; Admin Dose 200 MLS/HR; Start 03/12 at 15:00 Vancomycin HCl 125 mg 125 mg Q6 PO Last administered on 03/13/17 17:49; Admin Dose 125 MG; Start 03/12/17 at 18:00 Vancomycin HCl (Vancocin) 250 ml @ 125 mls/hr 11 IVPB ; Start 03/14/17 at 11: 00; Stop 03/14/17 at 20:00 STEFAN COMBS NP Mar 13, 2017 19:47
[2017-03-13] MEDS ORDERED: ALBUMIN HUMAN 25% 100 ML IV ONE (21:30)
[2017-03-14] VITALS (13 sets, daily range): BP systolic 83–109; BP diastolic 39–65; PULSE 75–96; RESP 14–22
--- NOTE | 2017-03-14 01:59 | CONS ---
DATE OF ADMISSION: 03/08/2017 DATE OF CONSULTATION: 03/13/2017 SUBJECTIVE FINDINGS: The patient is being followed for bilateral heel ulcerations. The patient had radiographs revealing no evidence of osteomyelitis. She has vascular calcifications consistent of atherosclerosis on the left foot, possible fracture of the base of the proximal phalanx, fifth toe. Patient is status post PICC line placement, as well as debridement of extremity ulcerations by Dr. Forrester. PHYSICAL EXAMINATION: VITAL SIGNS: Temperature 98, pulse 58, respiratory rate 18, blood pressure 194/56, pulse ox 98 on n onrebreather mask, 15 liters. SKIN: The patient with skin, subcutaneous atrophy, dry skin. She has bilateral heel ulcerations, u nstageable. The right heel 4 x 3 cm, left 2 x 2 cm. 1+ DP pulse. No evidence of cellulitis, lymph angitis. No active drainage from the ulcerations. Cultures: Left hip, Pseudomonas, Acinetobacter baumannii; right hip, Enterococcus, Acinetobacter baumannii and pseudomonas. IMAGING: X-rays reviewed. LABORATORY DATA: WBC 28, hemoglobin 8.3, hematocrit 27.3, platelets 382. Sodium 147, potassium 3.6 , chloride 114, CO2 22, BUN 38, creatinine 4.79. ASSESSMENT: 1. Bilateral heel decubitus ulcerations, unstageable. 2. Leukocytosis. 3. End-stage renal disease on hemodialysis. 4. Altered mental status. 5. Pneumonia. 6. Urinary tract infection. 7. Diabetes with nephropathy. PLAN: Patient seen, evaluated. Reviewed radiographs. No signs of osteomyelitis. Continue daily c leansing with Dakin's and application of Santyl b.i.d. Continue cushions. May require debrid ement as needed. Continue enzymatic debridement for now. We will reevaluate. Dictated By: NOÉ NEAL/BLANCA Conf#: [id number] DID#: [id number] CC: ERICK MATOS;*EndCC*
--- NOTE | 2017-03-14 02:20 | RADRPT ---
PROCEDURE: XR Chest. CLINICAL INDICATION: Aspiration. TECHNIQUE: Single frontal view of the chest. COMPARISON: 03/11/2017. FINDINGS: Right central venous line in place with tip in superior vena cava. Cardiomegaly. Atherosclerotic calcifications in the thoracic aorta. Mild pulmonary vascular congesti on with mild to moderate bilateral patchy mid lung and lung base air space disease, greater at the l martine bases. There is a mild right pleural effusion. In setting of aspiration findings represent right lung base aspiration pneumonia, with superimposed mild failure. Right lung base pneumonia is substantially increased over interval. Right pleural effu braydon is new. No signs of pneumothorax are seen. The osseous structures and soft tissues are unremarkable. IMPRESSION: 1. Right lung base aspiration pneumonia with pleural effusion. 2.. Right lung base pneumonia is substantially increased over the interval, and right pleural effusi on is new. 3. Mild superimposed failure. RPTAT: [facility] Physician Anu Date Time Electronically viewed and signed by Physician Anu on 03/14/2017 02:20 RS/
[2017-03-14] MEDS: COLISTIMETHATE 150 MG in SOD CHLORIDE 0.9% 100 ML IVPB SCH (02:42)
[2017-03-14] MEDS ORDERED: ALBUMIN HUMAN 25% 100 ML IV ONE (03:00)
[2017-03-14] MEDS: VANCOMYCIN HCL 250 MG/5ML POSYG PO SCH ×3 (05:09→18:00)
[2017-03-14] MEDS: Metronidazole 500 MG in NS 100 ML IVPB SCH ×3 (05:09→22:27)
[2017-03-14] MEDS: MIDODRINE 5 MG TAB PO SCH ×3 (09:00→21:00)
[2017-03-14] MEDS: VORICONAZOLE 200 MG TAB PO SCH ×2 (09:00→21:00)
[2017-03-14] MEDS: SODIUM HYPOCHLORITE 0.125% 473 ML BTL IRR SCH ×2 (09:31→22:26)
[2017-03-14] MEDS: HEPARIN 5,000 UNIT/0.5 ML VIAL SC SCH ×2 (09:53→22:29)
[2017-03-14] MEDS: COLLAGENASE 30 GM TUBE TOP SCH ×2 (09:53→22:27)
--- NOTE | 2017-03-14 10:42 | CONS ---
Date/Time of Note Date/Time of Note DATE: 03/14/17 TIME: 10:41 Assessment/Plan Assessment/Plan Chief Complaint/Hosp Course - ESRD - Sepsis - CAD/CHF - Anemia PLAN: Bedside dialysis today EPO + IV Iron for Anemia Monitor Labs Dr. Metzger to evaluate avf IV antibiotics Problems: Consultation Date/Type/Reason Admit Date/Time Mar 08, 2017 at 14:45 Initial Consult Date 03/09/17 Type of Consultation: NEPHROLOGY Reason for Consultation ESRD ON HEMODIALYSIS Referring Provider: MICHAEL COULTER 24 HR Interval Summary Constitutional: improved Exam/Review of Systems Vital Signs Vitals Vital Signs Date Time Temp Pulse Resp B/P Pulse Ox O2 Delivery O2 Flow Rate FiO2 03/14/17 07:39 97.8 88 22 84/44 99 03/14/17 05:53 3.0 03/14/17 04:18 Nasal Cannula Intake and Output 03/13/17 03/13/17 03/14/17 15:00 23:00 07:00 Intake Total 100 ml 850 ml 400 ml Balance 100 ml 850 ml 400 ml Exam Constitutional: alert, oriented Respiratory: crackles/rales Cardiovascular: edema, systolic murmur Gastrointestinal: soft Results Result Diagram: 03/14/17 0640 03/14/17 0640 Results 24 hrs Laboratory Tests Test 03/13/17 18:12 03/14/17 06:40 Bedside Glucose 136 White Blood Count 26.4 H Red Blood Count 2.71 L Hemoglobin 7.5 L Hematocrit 25.2 L Mean Corpuscular Volume 93.0 Mean Corpuscular Hemoglobin 27.7 L Mean Corpuscular Hemoglobin Concent 29.8 L Red Cell Distribution Width 24.8 H Platelet Count 299 # Mean Platelet Volume 9.9 Neutrophils % Segmented Neutrophils % (Manual) 71 Band Neutrophils % (Manual) 7 H Lymphocytes % Lymphocytes % (Manual) 7 L Reactive Lymphocytes % (Manual) 4 H Monocytes % Monocytes % (Manual) 8 Eosinophils % Eosinophils % (Manual) 1 Basophils % Metamyelocytes % (manual) 1 H Promyelocytes % (Manual) 1 H Nucleated Red Blood Cells % 1 H Neutrophils # Neutrophils # (Manual) 19.2 H Band Neutrophils # 1.8 H Absolute Lymphocytes (Manual) 1.8 Lymphocytes # Reactive Lymphocytes # 1.0 H Monocytes # Absolute Monocytes (Manual) 2.1 H Eosinophils # Basophils # Metamyelocytes # 0.2 H Promyelocytes # 0.2 H Nucleated Red Blood Cells # Platelet Estimate NORMAL Giant Platelets 4 H Poikilocytosis 2+ Anisocytosis 3+ Macrocytosis 3+ Sodium Level 150 H Potassium Level 3.5 Chloride Level 114 H Carbon Dioxide Level 22 Anion Gap 18 H Blood Urea Nitrogen 36 H Creatinine 5.16 H Glucose Level 116 Calcium Level 8.7 Medications Medications Current Medications Ondansetron HCl (Zofran Inj) 4 mg Q6H PRN IV NAUSEA AND/OR VOMITING; Start at 17:30 Acetaminophen (Tylenol Tab) 650 mg Q6H PRN PO PAIN LEVEL 1-3 OR FEVER; Start 03/08/17 at 17:30 Acetaminophen/ Hydrocodone Bitart ([place] (5/325)) 1 tab Q6H PRN PO MODERATE PAIN LEVEL 4-6 Last administered on 03/11/17 22:20; Admin Dose 1 TAB; Start 03/08/17 at 17:30 Morphine Sulfate (morphine) 2 mg Q4H PRN IV SEVERE PAIN LEVEL 7-10 Last administered on 03/11/17 18:32; Admin Dose 2 MG; Start 03/08/17 at 17:30 Heparin Sodium (Porcine) 5000 unit 5,000 unit Q12 SC Last administered on 03/14 09:53; Admin Dose 5,000 UNIT; Start 03/08/17 at 21:00 Meropenem/Sodium Chloride 50 ml @ 100 mls/hr Q24H IVPB Last administered on 14:34; Admin Dose 100 MLS/HR; Start 03/09/17 at 14:00 Metronidazole (Flagyl 500 Mg (Pmx)) 100 ml @ 100 mls/hr Q8 IVPB Last administered on 03/14/17 05:09; Admin Dose 100 MLS/HR; Start 03/08/17 at 22: 00 Sodium Hypochlorite (Dakin'S (1/4 Strength)) 1 applic BID IRR Last administered on 03/14/17 09:31; Admin Dose 1 APPLIC; Start 03/10/17 at 09:00 Voriconazole (Vfend) 200 mg BID PO Last administered on 03/13/17 09:04; Admin Dose 200 MG; Start 03/10/17 at 21:00 IV Flush (NS 10 ml) 10 ml PRN PRN IV IV PROTOCOL; Start 03/11/17 at 17:30 Collagenase (Santyl) 1 applic BID TOP Last administered on 03/14/17 09:53; Admin Dose 1 APPLIC; Start 03/11/17 at 21:00 Midodrine 10 mg 10 mg TID PO Last administered on 03/13/17 12:19; Admin Dose 10 MG; Start 03/12/17 at 02:30 Colistimethate Sodium/Sodium Chloride (Coly-Mycin/NS) 100 ml @ 200 mls/hr Q36H IVPB Last administered on 03/14/17 02:42; Admin Dose 200 MLS/HR; Start 03/12 at 15:00 Vancomycin HCl 125 mg 125 mg Q6 PO Last administered on 03/13/17 17:49; Admin Dose 125 MG; Start 03/12/17 at 18:00 Vancomycin HCl (Vancocin) 250 ml @ 125 mls/hr 11 IVPB ; Start 03/14/17 at 11: 00; Stop 03/14/17 at 20:00 BECKY GAMBLE MD Mar 14, 2017 10:42
[2017-03-14] MEDS ORDERED: VANCOMYCIN 1 GM in NS 250 ML IVPB SCH (11:00)
[2017-03-14] MEDS: MEROPENEM 500MG/50 ML (PMX) 50 ML IVPB SCH (13:02)
[2017-03-14] MEDS: SOD FERRIC GLUC COMPLX 125 MG in SOD CHLORIDE 0.9% 100 ML IVPB SCH (13:03)
--- NOTE | 2017-03-14 14:32 | PN ---
Date/Time of Note Date/Time of Note DATE: 03/14/17 TIME: 14:31 Assessment/Plan VTE Prophylaxis VTE Prophylaxis Intervention: LMWH Lines/Catheters IV Catheter Type (from Nrs): PICC Line Central line still needed: Yes Urinary Cath still in place: No Assessment/Plan Chief Complaint/Hosp Course 1. Sepsis with acute metabolic encephalopathy secondary to UTI and/or C. difficile colitis and/or wounds Patient growing Pseudomonas at various wounds C. difficile is positive Continue vancomycin and meropenem and Flagyl Colistin added by ID Mentation and functional status continues to decline, discuss goals of care with daughter 2. 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 Chronic left lower extremity ulcer as well as wounds in both arms Wound care, debridement Surgery consultation appreciated 4. Chronic A. fib 5. History of hypertension Hold home meds secondary to sepsis 6. Debility with deconditioning Patient's functional status continues to decline, have consulted palliative care Patient has poor prognosis, will need to discuss goals of care with daughter, patient has a partner but they are not legally and hence daughter is the decision-maker Prophylaxis: Heparin Problems: Subjective 24 Hr Interval Summary Free Text/Dictation Patinet had WASTEWATER TECHNICIAN for respiratory disterss Today, more somnulent and less responsive, appears over-narcotized Exam/Review of Systems Vital Signs Vitals Vital Signs Date Time Temp Pulse Resp B/P Pulse Ox O2 Delivery O2 Flow Rate FiO2 03/14/17 13:06 3.0 03/14/17 11:28 97.5 79 16 96/54 100 03/14/17 04:18 Nasal Cannula Intake and Output 03/13/17 03/13/17 03/14/17 15:00 23:00 07:00 Intake Total 100 ml 850 ml 400 ml Balance 100 ml 850 ml 400 ml Results Result Diagram: 03/14/17 0640 03/14/17 0640 Results 24 hrs Laboratory Tests Test 03/13/17 18:12 03/14/17 06:40 Bedside Glucose 136 White Blood Count 26.4 H Red Blood Count 2.71 L Hemoglobin 7.5 L Hematocrit 25.2 L Mean Corpuscular Volume 93.0 Mean Corpuscular Hemoglobin 27.7 L Mean Corpuscular Hemoglobin Concent 29.8 L Red Cell Distribution Width 24.8 H Platelet Count 299 # Mean Platelet Volume 9.9 Neutrophils % Segmented Neutrophils % (Manual) 71 Band Neutrophils % (Manual) 7 H Lymphocytes % Lymphocytes % (Manual) 7 L Reactive Lymphocytes % (Manual) 4 H Monocytes % Monocytes % (Manual) 8 Eosinophils % Eosinophils % (Manual) 1 Basophils % Metamyelocytes % (manual) 1 H Promyelocytes % (Manual) 1 H Nucleated Red Blood Cells % 1 H Neutrophils # Neutrophils # (Manual) 19.2 H Band Neutrophils # 1.8 H Absolute Lymphocytes (Manual) 1.8 Lymphocytes # Reactive Lymphocytes # 1.0 H Monocytes # Absolute Monocytes (Manual) 2.1 H Eosinophils # Basophils # Metamyelocytes # 0.2 H Promyelocytes # 0.2 H Nucleated Red Blood Cells # Platelet Estimate NORMAL Giant Platelets 4 H Poikilocytosis 2+ Anisocytosis 3+ Macrocytosis 3+ Sodium Level 150 H Potassium Level 3.5 Chloride Level 114 H Carbon Dioxide Level 22 Anion Gap 18 H Blood Urea Nitrogen 36 H Creatinine 5.16 H Glucose Level 116 Calcium Level 8.7 Medications Medications Current Medications Ondansetron HCl (Zofran Inj) 4 mg Q6H PRN IV NAUSEA AND/OR VOMITING; Start at 17:30 Acetaminophen (Tylenol Tab) 650 mg Q6H PRN PO PAIN LEVEL 1-3 OR FEVER; Start 03/08/17 at 17:30 Heparin Sodium (Porcine) 5000 unit 5,000 unit Q12 SC Last administered on 03/14 09:53; Admin Dose 5,000 UNIT; Start 03/08/17 at 21:00 Meropenem/Sodium Chloride 50 ml @ 100 mls/hr Q24H IVPB Last administered on 13:02; Admin Dose 100 MLS/HR; Start 03/09/17 at 14:00 Metronidazole (Flagyl 500 Mg (Pmx)) 100 ml @ 100 mls/hr Q8 IVPB Last administered on 03/14/17 05:09; Admin Dose 100 MLS/HR; Start 03/08/17 at 22: 00 Sodium Hypochlorite (Dakin'S (1/4 Strength)) 1 applic BID IRR Last administered on 03/14/17 09:31; Admin Dose 1 APPLIC; Start 03/10/17 at 09:00 Voriconazole (Vfend) 200 mg BID PO Last administered on 03/13/17 09:04; Admin Dose 200 MG; Start 03/10/17 at 21:00 IV Flush (NS 10 ml) 10 ml PRN PRN IV IV PROTOCOL; Start 03/11/17 at 17:30 Collagenase (Santyl) 1 applic BID TOP Last administered on 03/14/17 09:53; Admin Dose 1 APPLIC; Start 03/11/17 at 21:00 Midodrine 10 mg 10 mg TID PO Last administered on 03/13/17 12:19; Admin Dose 10 MG; Start 03/12/17 at 02:30 Colistimethate Sodium/Sodium Chloride (Coly-Mycin/NS) 100 ml @ 200 mls/hr Q36H IVPB Last administered on 03/14/17 02:42; Admin Dose 200 MLS/HR; Start 03/12 at 15:00 Vancomycin HCl 125 mg 125 mg Q6 PO Last administered on 03/13/17 17:49; Admin Dose 125 MG; Start 03/12/17 at 18:00 Vancomycin HCl (Vancocin) 250 ml @ 125 mls/hr 11 IVPB Last administered on 11:00; Admin Dose 125 MLS/HR; Start 03/14/17 at 11:00; Stop 03/14/17 at 20:00 Epoetin Hang 8000 units 8,000 units MoWeFr@17 SC ; Start 03/14/17 at 17:00 Ferric Sodium Gluconate Complex/ Sodium Chloride (Ferrlecit/NS) 110 ml @ 110 mls/hr Q24H IVPB Last administered on 03/14/17 13:03; Admin Dose 110 MLS/HR; Start 03/14/17 at 13:00; Stop 03/18/17 at 13:59 AMERICO HOWARD MD Mar 14, 2017 14:32
--- NOTE | 2017-03-14 15:20 | CONS ---
Date/Time of Note Date/Time of Note DATE: 03/14/17 TIME: 15:16 Consult Date/Type/Reason Admit Date/Time Mar 08, 2017 at 14:45 Initial Consult Date 03/09/17 Type of Consultation: id Ordering Provider: MICHAEL COULTER Objective Vital Signs Date Time Temp Pulse Resp B/P Pulse Ox O2 Delivery O2 Flow Rate FiO2 03/14/17 15:05 97.5 85 14 109/49 100 03/14/17 13:06 3.0 03/14/17 04:18 Nasal Cannula Intake and Output 03/13/17 03/13/17 03/14/17 15:00 23:00 07:00 Intake Total 100 ml 850 ml 400 ml Balance 100 ml 850 ml 400 ml Results/Medications Result Diagram: 03/14/17 0640 03/14/17 0640 Results 24 hrs Laboratory Tests Test 03/13/17 18:12 03/14/17 06:40 Bedside Glucose 136 White Blood Count 26.4 H Red Blood Count 2.71 L Hemoglobin 7.5 L Hematocrit 25.2 L Mean Corpuscular Volume 93.0 Mean Corpuscular Hemoglobin 27.7 L Mean Corpuscular Hemoglobin Concent 29.8 L Red Cell Distribution Width 24.8 H Platelet Count 299 # Mean Platelet Volume 9.9 Neutrophils % Segmented Neutrophils % (Manual) 71 Band Neutrophils % (Manual) 7 H Lymphocytes % Lymphocytes % (Manual) 7 L Reactive Lymphocytes % (Manual) 4 H Monocytes % Monocytes % (Manual) 8 Eosinophils % Eosinophils % (Manual) 1 Basophils % Metamyelocytes % (manual) 1 H Promyelocytes % (Manual) 1 H Nucleated Red Blood Cells % 1 H Neutrophils # Neutrophils # (Manual) 19.2 H Band Neutrophils # 1.8 H Absolute Lymphocytes (Manual) 1.8 Lymphocytes # Reactive Lymphocytes # 1.0 H Monocytes # Absolute Monocytes (Manual) 2.1 H Eosinophils # Basophils # Metamyelocytes # 0.2 H Promyelocytes # 0.2 H Nucleated Red Blood Cells # Platelet Estimate NORMAL Giant Platelets 4 H Poikilocytosis 2+ Anisocytosis 3+ Macrocytosis 3+ Sodium Level 150 H Potassium Level 3.5 Chloride Level 114 H Carbon Dioxide Level 22 Anion Gap 18 H Blood Urea Nitrogen 36 H Creatinine 5.16 H Glucose Level 116 Calcium Level 8.7 Medications Current Medications Ondansetron HCl (Zofran Inj) 4 mg Q6H PRN IV NAUSEA AND/OR VOMITING; Start at 17:30 Acetaminophen (Tylenol Tab) 650 mg Q6H PRN PO PAIN LEVEL 1-3 OR FEVER; Start 03/08/17 at 17:30 Heparin Sodium (Porcine) 5000 unit 5,000 unit Q12 SC Last administered on 03/14 09:53; Admin Dose 5,000 UNIT; Start 03/08/17 at 21:00 Meropenem/Sodium Chloride 50 ml @ 100 mls/hr Q24H IVPB Last administered on 13:02; Admin Dose 100 MLS/HR; Start 03/09/17 at 14:00 Metronidazole (Flagyl 500 Mg (Pmx)) 100 ml @ 100 mls/hr Q8 IVPB Last administered on 03/14/17 05:09; Admin Dose 100 MLS/HR; Start 03/08/17 at 22: 00 Sodium Hypochlorite (Dakin'S (1/4 Strength)) 1 applic BID IRR Last administered on 03/14/17 09:31; Admin Dose 1 APPLIC; Start 03/10/17 at 09:00 Voriconazole (Vfend) 200 mg BID PO Last administered on 03/13/17 09:04; Admin Dose 200 MG; Start 03/10/17 at 21:00 IV Flush (NS 10 ml) 10 ml PRN PRN IV IV PROTOCOL; Start 03/11/17 at 17:30 Collagenase (Santyl) 1 applic BID TOP Last administered on 03/14/17 09:53; Admin Dose 1 APPLIC; Start 03/11/17 at 21:00 Midodrine 10 mg 10 mg TID PO Last administered on 03/13/17 12:19; Admin Dose 10 MG; Start 03/12/17 at 02:30 Colistimethate Sodium/Sodium Chloride (Coly-Mycin/NS) 100 ml @ 200 mls/hr Q36H IVPB Last administered on 03/14/17 02:42; Admin Dose 200 MLS/HR; Start 03/12 at 15:00 Vancomycin HCl 125 mg 125 mg Q6 PO Last administered on 03/13/17 17:49; Admin Dose 125 MG; Start 03/12/17 at 18:00 Vancomycin HCl (Vancocin) 250 ml @ 125 mls/hr 11 IVPB Last administered on 11:00; Admin Dose 125 MLS/HR; Start 03/14/17 at 11:00; Stop 03/14/17 at 20:00 Epoetin Hang 8000 units 8,000 units MoWeFr@17 SC ; Start 03/14/17 at 17:00 Ferric Sodium Gluconate Complex/ Sodium Chloride (Ferrlecit/NS) 110 ml @ 110 mls/hr Q24H IVPB Last administered on 03/14/17 13:03; Admin Dose 110 MLS/HR; Start 03/14/17 at 13:00; Stop 03/18/17 at 13:59 Assessment/Plan Chief Complaint/Hosp Course Lethargic, no fevers, looks comfortable Indwelling's: left upper extremity AV fistua, Whitaker Microbiology: Urine culture growing yeast, blood cultures negative, stool for C. difficile positive Antibiotics: Vancomycin IV/PO Meropenem Flagyl Colistin Physical examination: This is a wasted chronically ill-appearing elderly woman who is awake in no distress. Head atraumatic normocephalic, sclera nonicteric, bugle mucosa dry, patient has multiple missing teeth. Neck is supple, trachea midline. Chest rise symmetrical breath sounds diminished bases. S1-S2. Abdomen soft bowel sounds present. Extremities: Right upper extremity with forearm necrotic wou and erythema. Left upper extremity incision below AV fistula with guanaco present, erythema present, there is an area of dehiscence with drainage. Skin: Positive for anasarca, multiple necrotic unstageable wounds Assessment: 1. Severe sepsis, multifactorial 3. PNA, aspiration 2. Urinary tract infection 3. C. difficile colitis 4. Multiple necrotic wounds 5. Infected left upper extremity incision 6. End-stage renal disease, hemodialysis dependent 5. Atrial fibrillation Plan: Doing poorly, continue abx, local wound care, aspiration precautions, prognosis poor ?palliative care eval Discussed with staff Problems: TODD RAMIRES NP Mar 14, 2017 15:20
[2017-03-14] MEDS: EPOETIN 4000 UNITS/1 ML INJ (ESRD) SC SCH (18:03)
[2017-03-15] VITALS (19 sets, daily range): BP systolic 85–122; BP diastolic 35–70; PULSE 64–122; RESP 16–20
--- NOTE | 2017-03-15 04:14 | PN ---
Date/Time of Note Date/Time of Note DATE: 03/13/17 TIME: 19:12 Assessment/Plan Lines/Catheters IV Catheter Type (from Nrs): PICC Line Assessment/Plan Chief Complaint/Hosp Course 1. Bilateral upper thighs and right flank wounds: 2/2 pressure from immobility; -debridement prn when medically optimized -local wound care with dakin's -offloading and turning frequently -specialty mattress -abx per sensitivity 2.Sepsis: multifactorial: 2/2 #1 + pna + uti (funguria) + cdiff colitis -supportive -as above 3. Normocytic hypochromic anemia: hx of gi bleed esophagitis, gastritis; -monitor and transfuse prn -antacids 4. Leukocytosis: worsened -as above 5. Proctocolitis c CDiff -abx per ID -gi f/u 6. ESRD with HD 7. Lower extremity wounds: -podiatry consult -as above 8. Hypoalbuminemia: likely 2/2 malnutrition + inflammation -supportive -optimize nutrition 9. Coagulopathy: on Eliquis outpatient 10.UTI: -abx per sensitivity -frequent bladder emptying/cath care 11. Diabetes -diet and medication optimization 12. History of falls -PT as patient condition permits -fall precautions 13. Overweight -diet optimization Thank you, Late entry 03/13 Problems: Subjective 24 Hr Interval Summary CDiff. Funguria. Leukocytosis. Mod drainage from wounds. Diarrhea. No fevers, chills, sob, congested cough, cp, palpitations, sexton, dizziness, n/v. Exam/Review of Systems Vital Signs Vitals Vital Signs Date Time Temp Pulse Resp B/P Pulse Ox O2 Delivery O2 Flow Rate FiO2 03/15/17 03:15 15.0 100 03/15/17 00:09 98.5 97 20 122/68 100 03/14/17 18:30 Non Rebreather Exam Free Text/Dictation Constitutional: alert, oriented Psych: anxiety, Head: atraumatic, normocephalic Eyes: nl lids, nl sclera ENMT: No nl lips & teeth (missing teeth-poor dentition) Neck: non-tender, supple Respiratory: diminished Cardiovascular: regular rate and rhythm Gastrointestinal: non-tender, other (obese), soft : roberson with creamy brown drainage Musculoskeletal: muscle weakness: BLE. No nl gait and stance Extremities: No edema, No normal pulses Neurological: nl speech, nl strength Skin: other (wounds: bilat thigh/trochanter area with areas of necrotic tissue , wound bed with slough, mod green drainage, malodorous); necrotic skin on right arm Results Result Diagram: 03/14/17 0640 03/14/17 0640 HALEY HERNANDEZ MD Mar 15, 2017 04:14
--- NOTE | 2017-03-15 04:15 | PN ---
Date/Time of Note Date/Time of Note DATE: 03/14/17 TIME: 12:14 Assessment/Plan Lines/Catheters IV Catheter Type (from Nrs): PICC Line Assessment/Plan Chief Complaint/Hosp Course 1. Bilateral upper thighs and right flank wounds: 2/2 pressure from immobility; -debridement prn when medically optimized -local wound care with dakin's -offloading and turning frequently -specialty mattress -abx per sensitivity 2.Sepsis: multifactorial: 2/2 #1 + pna + uti (funguria) + cdiff colitis -supportive -as above 3. Normocytic hypochromic anemia: hx of gi bleed esophagitis, gastritis; -monitor and transfuse prn -antacids 4. Leukocytosis -as above 5. Proctocolitis c CDiff -abx per ID -gi f/u 6. ESRD with HD 7. Lower extremity wounds: -podiatry consult -as above 8. Hypoalbuminemia: likely 2/2 malnutrition + inflammation -supportive -optimize nutrition 9. Coagulopathy: on Eliquis outpatient 10.UTI: -abx per sensitivity -frequent bladder emptying/cath care 11. Diabetes -diet and medication optimization 12. History of falls -PT as patient condition permits -fall precautions 13. Overweight -diet optimization Thank you, Late entry 03/14 Problems: Subjective 24 Hr Interval Summary CDiff. Funguria. Leukocytosis. Mod drainage from wounds. Diarrhea. No fevers, chills, sob, congested cough, cp, palpitations, sexton, dizziness, n/v. Exam/Review of Systems Vital Signs Vitals Vital Signs Date Time Temp Pulse Resp B/P Pulse Ox O2 Delivery O2 Flow Rate FiO2 03/15/17 03:15 15.0 100 03/15/17 00:09 98.5 97 20 122/68 100 03/14/17 18:30 Non Rebreather Exam Free Text/Dictation Constitutional: alert, oriented Psych: anxiety, Head: atraumatic, normocephalic Eyes: nl lids, nl sclera ENMT: No nl lips & teeth (missing teeth-poor dentition) Neck: non-tender, supple Respiratory: diminished Cardiovascular: regular rate and rhythm Gastrointestinal: non-tender, other (obese), soft : roberson with creamy brown drainage Musculoskeletal: muscle weakness: BLE. No nl gait and stance Extremities: No edema, No normal pulses Neurological: nl speech, nl strength Skin: other (wounds: bilat thigh/trochanter area with areas of necrotic tissue , wound bed with slough, mod green drainage, malodorous); necrotic skin on right arm Results Result Diagram: 03/14/17 0640 03/14/17 0640 HALEY HERNANDEZ MD Mar 15, 2017 04:15
[2017-03-15] MEDS: VANCOMYCIN HCL 250 MG/5ML POSYG PO SCH ×4 (06:00→18:00)
[2017-03-15] MEDS: Metronidazole 500 MG in NS 100 ML IVPB SCH (06:30)
--- NOTE | 2017-03-15 07:25 | CONS ---
Date/Time of Note Date/Time of Note DATE: 03/15/17 TIME: 07:21 Assessment/Plan Assessment/Plan Chief Complaint/Hosp Course Severe Sepsis, Diabetes, ESRD, Morbid obesity, B/L heel ulcers. EXTREMITIES The patient with bilateral heel ulcerations. The skin is dry. It is a 1+ DP pulse. Mild edema. Right heel approximately 4 x 3 cm, unstageable. Left heel 2 x 2 cm, unstageable. Continue local wound care with Dakins cleanse, Santyl and DSD, heel off-loading. X-rays = neg OM. May require bedside wound debridements. Will monitor. Problems: Consultation Date/Type/Reason Admit Date/Time Mar 08, 2017 at 14:45 Type of Consultation: Podiatry: Dr. Luisito ramires Reason for Consultation B/L heel ulcers. Exam/Review of Systems Vital Signs Vitals Vital Signs Date Time Temp Pulse Resp B/P Pulse Ox O2 Delivery O2 Flow Rate FiO2 03/15/17 06:56 98.0 96 18 108/46 100 03/15/17 03:15 15.0 100 03/14/17 20:00 Non Rebreather Results Result Diagram: 03/14/17 0640 03/14/17 0640 Medications Medications Current Medications Ondansetron HCl (Zofran Inj) 4 mg Q6H PRN IV NAUSEA AND/OR VOMITING; Start at 17:30 Acetaminophen (Tylenol Tab) 650 mg Q6H PRN PO PAIN LEVEL 1-3 OR FEVER; Start 03/08/17 at 17:30 Heparin Sodium (Porcine) 5000 unit 5,000 unit Q12 SC Last administered on 03/14 22:29; Admin Dose 5,000 UNIT; Start 03/08/17 at 21:00 Meropenem/Sodium Chloride 50 ml @ 100 mls/hr Q24H IVPB Last administered on 13:02; Admin Dose 100 MLS/HR; Start 03/09/17 at 14:00 Metronidazole (Flagyl 500 Mg (Pmx)) 100 ml @ 100 mls/hr Q8 IVPB Last administered on 03/15/17 06:30; Admin Dose 100 MLS/HR; Start 03/08/17 at 22: 00 Sodium Hypochlorite (Dakin'S (1/4 Strength)) 1 applic BID IRR Last administered on 03/14/17 22:26; Admin Dose 1 APPLIC; Start 03/10/17 at 09:00 Voriconazole (Vfend) 200 mg BID PO Last administered on 03/13/17 09:04; Admin Dose 200 MG; Start 03/10/17 at 21:00 IV Flush (NS 10 ml) 10 ml PRN PRN IV IV PROTOCOL; Start 03/11/17 at 17:30 Collagenase (Santyl) 1 applic BID TOP Last administered on 03/14/17 22:27; Admin Dose 1 APPLIC; Start 03/11/17 at 21:00 Midodrine 10 mg 10 mg TID PO Last administered on 03/13/17 12:19; Admin Dose 10 MG; Start 03/12/17 at 02:30 Colistimethate Sodium/Sodium Chloride (Coly-Mycin/NS) 100 ml @ 200 mls/hr Q36H IVPB Last administered on 03/14/17 02:42; Admin Dose 200 MLS/HR; Start 03/12 at 15:00 Vancomycin HCl (Vancomycin Oral Syringe) 125 mg Q6 PO Last administered on 17:49; Admin Dose 125 MG; Start 03/12/17 at 18:00 Epoetin Hang 8000 units 8,000 units MoWeFr@17 SC Last administered on 18:03; Admin Dose 8,000 UNITS; Start 03/14/17 at 17:00 Ferric Sodium Gluconate Complex/ Sodium Chloride (Ferrlecit/NS) 110 ml @ 110 mls/hr Q24H IVPB Last administered on 03/14/17 13:03; Admin Dose 110 MLS/HR; Start 03/14/17 at 13:00; Stop 03/18/17 at 13:59 HESHAM MALIK DPM Mar 15, 2017 07:25
[2017-03-15] MEDS: VORICONAZOLE 200 MG TAB PO SCH ×2 (09:00→21:00)
[2017-03-15] MEDS: MIDODRINE 5 MG TAB PO SCH ×3 (09:00→21:00)
[2017-03-15] MEDS: SODIUM HYPOCHLORITE 0.125% 473 ML BTL IRR SCH ×2 (09:36→21:47)
[2017-03-15] MEDS: COLLAGENASE 30 GM TUBE TOP SCH ×2 (09:38→21:51)
[2017-03-15] MEDS: HEPARIN 5,000 UNIT/0.5 ML VIAL SC SCH ×2 (09:48→21:54)
[2017-03-15] MEDS: SOD FERRIC GLUC COMPLX 125 MG in SOD CHLORIDE 0.9% 100 ML IVPB SCH (12:57)
--- NOTE | 2017-03-15 14:54 | CONS ---
Date/Time of Note Date/Time of Note DATE: 03/15/17 TIME: 14:50 Consult Date/Type/Reason Admit Date/Time Mar 08, 2017 at 14:45 Initial Consult Date 03/09/17 Type of Consultation: ID Objective Vital Signs Date Time Temp Pulse Resp B/P Pulse Ox O2 Delivery O2 Flow Rate FiO2 03/15/17 14:27 89 03/15/17 13:00 18 03/15/17 11:23 98.3 94/50 100 03/15/17 08:30 Nasal Cannula 3.0 03/15/17 03:15 100 Results/Medications Result Diagram: 03/14/17 0640 03/14/17 0640 Medications Current Medications Ondansetron HCl (Zofran Inj) 4 mg Q6H PRN IV NAUSEA AND/OR VOMITING; Start at 17:30 Acetaminophen (Tylenol Tab) 650 mg Q6H PRN PO PAIN LEVEL 1-3 OR FEVER; Start 03/08/17 at 17:30 Heparin Sodium (Porcine) 5000 unit 5,000 unit Q12 SC Last administered on 03/15 09:48; Admin Dose 5,000 UNIT; Start 03/08/17 at 21:00 Meropenem/Sodium Chloride 50 ml @ 100 mls/hr Q24H IVPB Last administered on 13:02; Admin Dose 100 MLS/HR; Start 03/09/17 at 14:00 Metronidazole (Flagyl 500 Mg (Pmx)) 100 ml @ 100 mls/hr Q8 IVPB Last administered on 03/15/17 06:30; Admin Dose 100 MLS/HR; Start 03/08/17 at 22: 00 Sodium Hypochlorite (Dakin'S (1/4 Strength)) 1 applic BID IRR Last administered on 03/15/17 09:36; Admin Dose 1 APPLIC; Start 03/10/17 at 09:00 Voriconazole (Vfend) 200 mg BID PO Last administered on 03/13/17 09:04; Admin Dose 200 MG; Start 03/10/17 at 21:00 IV Flush (NS 10 ml) 10 ml PRN PRN IV IV PROTOCOL; Start 03/11/17 at 17:30 Collagenase (Santyl) 1 applic BID TOP Last administered on 10/31/17at 09:38; Admin Dose 1 APPLIC; Start 03/11/17 at 21:00 Midodrine 10 mg 10 mg TID PO Last administered on 03/13/17 12:19; Admin Dose 10 MG; Start 03/12/17 at 02:30 Colistimethate Sodium/Sodium Chloride (Coly-Mycin/NS) 100 ml @ 200 mls/hr Q36H IVPB Last administered on 03/14/17 02:42; Admin Dose 200 MLS/HR; Start 03/12 at 15:00 Vancomycin HCl (Vancomycin Oral Syringe) 125 mg Q6 PO Last administered on 17:49; Admin Dose 125 MG; Start 03/12/17 at 18:00 Epoetin Hang 8000 units 8,000 units MoWeFr@17 SC Last administered on 18:03; Admin Dose 8,000 UNITS; Start 03/14/17 at 17:00 Ferric Sodium Gluconate Complex/ Sodium Chloride (Ferrlecit/NS) 110 ml @ 110 mls/hr Q24H IVPB Last administered on 03/15/17 12:57; Admin Dose 110 MLS/HR; Start 03/14/17 at 13:00; Stop 03/18/17 at 13:59 Assessment/Plan Chief Complaint/Hosp Course Lethargic, looks comfortable Indwelling's: left upper extremity AV fistula, Whitaker Microbiology: Urine culture growing yeast, blood cultures negative, stool for C. difficile positive. Right hip wound culture growing Pseudomonas, VRE, Acinetobacter Trinity. Left upper extremity incisional drainage culture growing Acinetobacter Trinity and Leuconostoc. Left hip wound culture growing Acinetobacter Trinity Pseudomonas and coag negative staph species Antibiotics: Vancomycin IV/PO Meropenem Flagyl Colistin Physical examination: This is a wasted chronically ill-appearing elderly woman who is awake in no distress. Head atraumatic normocephalic, sclera nonicteric, bugle mucosa dry, patient has multiple missing teeth. Neck is supple, trachea midline. Chest rise symmetrical breath sounds diminished bases. S1-S2. Abdomen soft bowel sounds present. Extremities: Right upper extremity with forearm necrotic wou and erythema. Left upper extremity incision below AV fistula with guanaco present, erythema present, there is an area of dehiscence with drainage. Skin: Positive for anasarca, multiple necrotic unstageable wounds Assessment: 1. Severe sepsis, multifactorial 3. PNA, aspiration 2. Urinary tract infection 3. C. difficile colitis 4. Multiple necrotic wounds 5. Infected left upper extremity incision 6. End-stage renal disease, hemodialysis dependent 5. Atrial fibrillation Plan: Remains unchanged, covered with antibiotics, continue present care, aspiration precautions, local wound care per podiatry and surgery, consider palliative evaluation, prognosis poor Discussed with staff Problems: TODD RAMIRES NP Mar 15, 2017 14:54
--- NOTE | 2017-03-15 16:46 | PN ---
Date/Time of Note Date/Time of Note DATE: 03/15/17 TIME: 16:45 Assessment/Plan VTE Prophylaxis VTE Prophylaxis Intervention: heparin Lines/Catheters IV Catheter Type (from Nrsg): PICC Line Central line still needed: Yes Urinary Cath still in place: No Reason Cath still needed: urinary retention Assessment/Plan Chief Complaint/Hosp Course 1. Sepsis with acute metabolic encephalopathy secondary to UTI and/or C. difficile colitis and/or wounds Patient growing Pseudomonas at various wounds C. difficile is positive Continue vancomycin and meropenem and Flagyl Colistin added by ID Mentation and functional status continues to decline, discuss goals of care with daughter 2. 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 Chronic left lower extremity ulcer as well as wounds in both arms Wound care, debridement Surgery consultation appreciated 4. Chronic A. fib 5. History of hypertension Hold home meds secondary to sepsis 6. Debility with deconditioning Patient's functional status continues to decline, have consulted palliative care Patient has poor prognosis, will need to discuss goals of care with daughter, patient has a partner but they are not legally and hence daughter is the decision-maker - family meeting tomorrow AM Prophylaxis: Heparin Problems: Subjective 24 Hr Interval Summary Free Text/Dictation Mentation slightly improved today, still lethargic compared to baseline Exam/Review of Systems Vital Signs Vitals Vital Signs Date Time Temp Pulse Resp B/P Pulse Ox O2 Delivery O2 Flow Rate FiO2 03/15/17 15:52 15.0 100 03/15/17 15:40 98.8 97 16 94/35 99 03/15/17 08:30 Nasal Cannula Results Result Diagram: 03/14/17 0640 03/14/17 0640 Medications Medications Current Medications Ondansetron HCl (Zofran Inj) 4 mg Q6H PRN IV NAUSEA AND/OR VOMITING; Start at 17:30 Acetaminophen (Tylenol Tab) 650 mg Q6H PRN PO PAIN LEVEL 1-3 OR FEVER; Start 03/08/17 at 17:30 Heparin Sodium (Porcine) 5000 unit 5,000 unit Q12 SC Last administered on 03/15t 09:48; Admin Dose 5,000 UNIT; Start 03/08/17 at 21:00 Meropenem/Sodium Chloride 50 ml @ 100 mls/hr Q24H IVPB Last administered on 13:02; Admin Dose 100 MLS/HR; Start 03/09/17 at 14:00 Metronidazole (Flagyl 500 Mg (Pmx)) 100 ml @ 100 mls/hr Q8 IVPB Last administered on 03/15/17 06:30; Admin Dose 100 MLS/HR; Start 03/08/17 at 22: 00 Sodium Hypochlorite (Dakin'S (1/4 Strength)) 1 applic BID IRR Last administered on 03/15/17 09:36; Admin Dose 1 APPLIC; Start 03/10/17 at 09:00 Voriconazole (Vfend) 200 mg BID PO Last administered on 03/13/17 09:04; Admin Dose 200 MG; Start 03/10/17 at 21:00 IV Flush (NS 10 ml) 10 ml PRN PRN IV IV PROTOCOL; Start 03/11/17 at 17:30 Collagenase (Santyl) 1 applic BID TOP Last administered on 03/15/17 09:38; Admin Dose 1 APPLIC; Start 03/11/17 at 21:00 Midodrine 10 mg 10 mg TID PO Last administered on 03/13/17 12:19; Admin Dose 10 MG; Start 03/12/17 at 02:30 Colistimethate Sodium/Sodium Chloride (Coly-Mycin/NS) 100 ml @ 200 mls/hr Q36H IVPB Last administered on 03/14/17 02:42; Admin Dose 200 MLS/HR; Start 03/12 at 15:00 Vancomycin HCl (Vancomycin Oral Syringe) 125 mg Q6 PO Last administered on 17:49; Admin Dose 125 MG; Start 03/12/17 at 18:00 Epoetin Hang 8000 units 8,000 units MoWeFr@17 SC Last administered on 18:03; Admin Dose 8,000 UNITS; Start 03/14/17 at 17:00 Ferric Sodium Gluconate Complex/ Sodium Chloride (Ferrlecit/NS) 110 ml @ 110 mls/hr Q24H IVPB Last administered on 03/15/17 12:57; Admin Dose 110 MLS/HR; Start 03/14/17 at 13:00; Stop 03/18/17 at 13:59 AMERICO HOWARD MD Mar 15, 2017 16:46
[2017-03-15] MEDS: MEROPENEM 500MG/50 ML (PMX) 50 ML IVPB SCH (17:08)
[2017-03-15] MEDS: COLISTIMETHATE 150 MG in SOD CHLORIDE 0.9% 100 ML IVPB SCH (18:24)
[2017-03-16] VITALS (11 sets, daily range): BP systolic 92–110; BP diastolic 49–76; PULSE 82–111; RESP 16–18
[2017-03-16] MEDS: VANCOMYCIN HCL 250 MG/5ML POSYG PO SCH ×4 (05:31→18:00)
--- NOTE | 2017-03-16 08:06 | PN ---
Date/Time of Note Date/Time of Note DATE: 03/16/17 TIME: 08:00 Assessment/Plan VTE Prophylaxis VTE Prophylaxis Intervention: other Lines/Catheters IV C[facility]ter Type (from [facility]): PICC Line Central line still needed: No Urinary Cath still in place: No Assessment/Plan Chief Complaint/Hosp Course 1. Bilateral heel decubitus ulcerations, unstageable. 2. Leukocytosis. 3. End-stage renal disease on hemodialysis. 4. Altered mental status. 5. Pneumonia. 6. Urinary tract infection. 7. Diabetes with nephropathy. Problems: Assessment/Plan Cont offloading/ enzymatic debridement. Will monitor. Subjective 24 Hr Interval Summary Free Text/Dictation Severe Sepsis, Diabetes, ESRD, Morbid obesity, B/L heel ulcers. Exam/Review of Systems Vital Signs Vitals Vital Signs Date Time Temp Pulse Resp B/P Pulse Ox O2 Delivery O2 Flow Rate FiO2 03/16/17 07:15 98.6 85 18 110/76 98 03/16/17 06:08 15.0 100 03/15/17 20:00 Non Rebreather Intake and Output 03/15/17 03/15/17 03/16/17 15:00 23:00 07:00 Intake Total 500 ml Output Total 2000 ml Balance -1500 ml Exam Extremities: other Additional Comments The patient with bilateral heel ulcerations. The skin is dry. It is a 1+ DP pulse. Mild edema. Right heel approximately 4 x 3 cm, unstageable. Left heel 2 x 2 cm, unstageable. Continue local wound care with Dakin's cleanse, Santyl and DSD, heel off- loading. X-rays: neg OM. May require bedside wound debridements. Will monitor. Results Result Diagram: 03/14/1763903/14/17639 Medications Medications Current Medications Ondansetron HCl (Zofran Inj) 4 mg Q6H PRN IV NAUSEA AND/OR VOMITING; Start at 17:30 Acetaminophen (Tylenol Tab) 650 mg Q6H PRN PO PAIN LEVEL 1-3 OR FEVER; Start 03/08/17 at 17:30 Heparin Sodium (Porcine) 5000 unit 5,000 unit Q12 SC Last administered on 03/15t 21:54; Admin Dose 5,000 UNIT; Start 03/08/17 at 21:00 Meropenem/Sodium Chloride (Merrem 500mg/50 ml(Pmx)) 50 ml @ 100 mls/hr Q24H IVPB Last administered on 03/15/17 17:08; Admin Dose 100 MLS/HR; Start 03/09 at 14:00 Sodium Hypochlorite (Dakin'S (1/4 Strength)) 1 applic BID IRR Last administered on 03/15/17 21:47; Admin Dose 1 APPLIC; Start 03/10/17 at 09:00 Voriconazole (Vfend) 200 mg BID PO Last administered on 03/13/17 09:04; Admin Dose 200 MG; Start 03/10/17 at 21:00 IV Flush (NS 10 ml) 10 ml PRN PRN IV IV PROTOCOL; Start 03/11/17 at 17:30 Collagenase (Santyl) 1 applic BID TOP Last administered on 03/15/17 21:51; Admin Dose 1 APPLIC; Start 03/11/17 at 21:00 Midodrine 10 mg 10 mg TID PO Last administered on 03/13/17 12:19; Admin Dose 10 MG; Start 03/12/17 at 02:30 Colistimethate Sodium/Sodium Chloride (Coly-Mycin/NS) 100 ml @ 200 mls/hr Q36H IVPB Last administered on 03/15/17 18:24; Admin Dose 200 MLS/HR; Start 03/12 at 15:00 Vancomycin HCl (Vancomycin Oral Syringe) 125 mg Q6 PO Last administered on 17:49; Admin Dose 125 MG; Start 03/12/17 at 18:00 Epoetin Hang 8000 units 8,000 units MoWeFr@17 SC Last administered on 18:03; Admin Dose 8,000 UNITS; Start 03/14/17 at 17:00 Ferric Sodium Gluconate Complex/ Sodium Chloride (Ferrlecit/NS) 110 ml @ 110 mls/hr Q24H IVPB Last administered on 03/15/17 12:57; Admin Dose 110 MLS/HR; Start 03/14/17 at 13:00; Stop 03/18/17 at 13:59 NOÉ SANCHES DPM Mar 16, 2017 08:06
[2017-03-16] MEDS: MIDODRINE 5 MG TAB PO SCH ×3 (08:57→21:00)
[2017-03-16] MEDS: VORICONAZOLE 200 MG TAB PO SCH (08:57)
[2017-03-16] MEDS: COLLAGENASE 30 GM TUBE TOP SCH ×2 (08:57→21:27)
[2017-03-16] MEDS: SODIUM HYPOCHLORITE 0.125% 473 ML BTL IRR SCH ×2 (08:57→21:27)
[2017-03-16] MEDS: HEPARIN 5,000 UNIT/0.5 ML VIAL SC SCH ×2 (09:26→21:30)
[2017-03-16] MEDS: SOD FERRIC GLUC COMPLX 125 MG in SOD CHLORIDE 0.9% 100 ML IVPB SCH (13:20)
--- NOTE | 2017-03-16 13:27 | CONS ---
Date/Time of Note Date/Time of Note DATE: 03/16/17 TIME: 13:25 Consult Date/Type/Reason Admit Date/Time Mar 08, 2017 at 14:45 Initial Consult Date 03/09/17 Type of Consultation: ID Objective Vital Signs Date Time Temp Pulse Resp B/P Pulse Ox O2 Delivery O2 Flow Rate FiO2 03/16/17 12:00 98 03/16/17 11:49 98.5 18 99/57 98 03/16/17 08:30 Non Rebreather 15.0 03/16/17 06:08 100 Intake and Output 03/15/17 03/15/17 03/16/17 15:00 23:00 07:00 Intake Total 500 ml Output Total 2000 ml Balance -1500 ml Results/Medications Result Diagram: 03/16/1726 03/16/17725 Results 24 hrs Laboratory Tests Test 03/16/17 07:26 White Blood Count 21.1 #H Red Blood Count 2.77 L Hemoglobin 7.7 L Hematocrit 25.8 L Mean Corpuscular Volume 93.1 Mean Corpuscular Hemoglobin 27.8 L Mean Corpuscular Hemoglobin Concent 29.8 L Red Cell Distribution Width 25.8 H Platelet Count 251 Mean Platelet Volume 10.3 Neutrophils % 78.3 H Lymphocytes % 7.9 L Monocytes % 7.3 Eosinophils % 1.8 Basophils % 0.4 Nucleated Red Blood Cells % 0.9 H Neutrophils # 16.6 H Lymphocytes # 1.7 Monocytes # 1.5 H Eosinophils # 0.4 Basophils # 0.1 Nucleated Red Blood Cells # 0.2 H Sodium Level 151 H Potassium Level 3.5 Chloride Level 113 H Carbon Dioxide Level 24 Anion Gap 18 H Blood Urea Nitrogen 26 H Creatinine 3.93 H Glucose Level 88 Calcium Level 9.1 Total Bilirubin 0.2 Direct Bilirubin 0.20 Indirect Bilirubin 0.0 Aspartate Amino Transf (AST/SGOT) < 8 L Alanine Aminotransferase (ALT/SGPT) 31 Alkaline Phosphatase 174 H Total Protein 4.6 L Albumin 2.6 L Globulin 2.00 Albumin/Globulin Ratio 1.30 Medications Current Medications Ondansetron HCl (Zofran Inj) 4 mg Q6H PRN IV NAUSEA AND/OR VOMITING; Start at 17:30 Acetaminophen (Tylenol Tab) 650 mg Q6H PRN PO PAIN LEVEL 1-3 OR FEVER; Start 03/08/17 at 17:30 Heparin Sodium (Porcine) 5000 unit 5,000 unit Q12 SC Last administered on 09:26; Admin Dose 5,000 UNIT; Start 03/08/17 at 21:00 Meropenem/Sodium Chloride (Merrem 500mg/50 ml(Pmx)) 50 ml @ 100 mls/hr Q24H IVPB Last administered on 03/15/17 17:08; Admin Dose 100 MLS/HR; Start 03/09 at 14:00 Sodium Hypochlorite (Dakin'S (1/4 Strength)) 1 applic BID IRR Last administered on 03/16/17 08:57; Admin Dose 1 APPLIC; Start 03/10/17 at 09:00 IV Flush (NS 10 ml) 10 ml PRN PRN IV IV PROTOCOL; Start 03/11/17 at 17:30 Collagenase (Santyl) 1 applic BID TOP Last administered on 03/16/17 08:57; Admin Dose 1 APPLIC; Start 03/11/17 at 21:00 Midodrine 10 mg 10 mg TID PO Last administered on 03/13/17 12:19; Admin Dose 10 MG; Start 03/12/17 at 02:30 Colistimethate Sodium/Sodium Chloride (Coly-Mycin/NS) 100 ml @ 200 mls/hr Q36H IVPB Last administered on 03/15/17 18:24; Admin Dose 200 MLS/HR; Start 03/12 at 15:00 Vancomycin HCl (Vancomycin Oral Syringe) 125 mg Q6 PO Last administered on 17:49; Admin Dose 125 MG; Start 03/12/17 at 18:00 Epoetin Hang 8000 units 8,000 units MoWeFr@17 SC Last administered on 18:03; Admin Dose 8,000 UNITS; Start 03/14/17 at 17:00 Ferric Sodium Gluconate Complex 125 mg/Sodium Chloride 110 ml @ 110 mls/hr Q24H IVPB Last administered on 03/16/17 13:20; Admin Dose 110 MLS/HR; Start 03/14/17 at 13:00; Stop 03/18/17 at 13:59 Caspofungin 70 mg/ Sodium Chloride 250 ml @ 250 mls/hr ONCE ONCE IVPB ; Start 03/16/17 at 13:30; Stop 03/16/17 at 14:29; Status UNV Caspofungin 50 mg/ Sodium Chloride 250 ml @ 250 mls/hr Q24H IVPB ; Start at 13:30; Status UNV Metronidazole (Flagyl 500 Mg (Pmx)) 100 ml @ 100 mls/hr Q8 IVPB ; Start at 14:00; Status UNV Assessment/Plan Chief Complaint/Hosp Course Lethargic, no fevers, looks comfortable Indwelling's: left upper extremity AV fistula, Whitaker Microbiology: Urine culture growing yeast, blood cultures negative, stool for C. difficile positive. Right hip wound culture growing Pseudomonas, VRE, Acinetobacter Trinity. Left upper extremity incisional drainage culture growing Acinetobacter Trinity and Leuconostoc. Left hip wound culture growing Acinetobacter Trinity Pseudomonas and coag negative staph species Antibiotics: Vancomycin IV/PO Meropenem Flagyl Colistin Vfend Physical examination: This is a wasted chronically ill-appearing elderly woman who is awake in no distress. Head atraumatic normocephalic, sclera nonicteric, bugle mucosa dry, patient has multiple missing teeth. Neck is supple, trachea midline. Chest rise symmetrical breath sounds diminished bases. S1-S2. Abdomen soft bowel sounds present. Extremities: Right upper extremity with forearm necrotic wou and erythema. Left upper extremity incision below AV fistula with guanaco present, erythema present, there is an area of dehiscence with drainage. Skin: Positive for anasarca, multiple necrotic unstageable wounds Assessment: 1. Severe sepsis, multifactorial 3. PNA, aspiration 2. Urinary tract infection 3. C. difficile colitis 4. Multiple necrotic wounds 5. Infected left upper extremity incision 6. End-stage renal disease, hemodialysis dependent 5. Atrial fibrillation Plan: Remains unchanged, will change Vfend to IV Cancidas, dc PO Vanco and start IV Flagyl, continue other antibiotics, continue aspiration precautions, local wound care per podiatry and surgery, prognosis poor Discussed with staff Problems: TODD RAMIRES NP Mar 16, 2017 13:27
--- NOTE | 2017-03-16 13:32 | PN ---
Date/Time of Note Date/Time of Note DATE: 03/16/17 TIME: 13:30 Assessment/Plan VTE Prophylaxis VTE Prophylaxis Intervention: heparin Lines/Catheters IV Catheter Type (from Nrs): PICC Line Central line still needed: Yes Urinary Cath still in place: No Assessment/Plan Chief Complaint/Hosp Course Will consult hospice and Dr Olmedo. Likely transition to comfort care in coming days but staying the course for now. DNR/DNI now however 1. Sepsis with acute metabolic encephalopathy secondary to UTI and/or C. difficile colitis and/or wounds Patient growing Pseudomonas at various wounds C. difficile is positive Continue vancomycin and meropenem and Flagyl Colistin added by ID Mentation and functional status continues to decline, discuss goals of care with daughter 2. End-stage renal disease with volume overload Dialysis per renal Patient's professor of communication and writing Dr. Rolon is following 3. Chronic left lower extremity ulcer as well as wounds in both arms Wound care, debridement Surgery consultation appreciated 4. Chronic A. fib 5. History of hypertension Hold home meds secondary to sepsis 6. Debility with deconditioning Patient's functional status continues to decline, have consulted palliative care Patient has poor prognosis, will need to discuss goals of care with daughter, patient has a partner but they are not legally and hence daughter is the decision-maker - family meeting tomorrow AM Prophylaxis: Heparin Problems: Subjective 24 Hr Interval Summary Free Text/Dictation Remains lethargic, low BP Dicussion had with the patient's daughter and HCP regarding GOC. Will likely be transitioning to comfort care/pallaitive but wishes to confimr with rest of family. Patient's does not want any part in care or decision making and has "said goodbye" already Exam/Review of Systems Vital Signs Vitals Vital Signs Date Time Temp Pulse Resp B/P Pulse Ox O2 Delivery O2 Flow Rate FiO2 03/16/17 12:00 98 03/16/17 11:49 98.5 18 99/57 98 03/16/17 08:30 Non Rebreather 15.0 03/16/17 06:08 100 Intake and Output 03/15/17 03/15/17 03/16/17 15:00 23:00 07:00 Intake Total 500 ml Output Total 2000 ml Balance -1500 ml Results Result Diagram: 03/16/17 0726 03/16/17 0726 Results 24 hrs Laboratory Tests Test 03/16/17 07:26 White Blood Count 21.1 #H Red Blood Count 2.77 L Hemoglobin 7.7 L Hematocrit 25.8 L Mean Corpuscular Volume 93.1 Mean Corpuscular Hemoglobin 27.8 L Mean Corpuscular Hemoglobin Concent 29.8 L Red Cell Distribution Width 25.8 H Platelet Count 251 Mean Platelet Volume 10.3 Neutrophils % 78.3 H Lymphocytes % 7.9 L Monocytes % 7.3 Eosinophils % 1.8 Basophils % 0.4 Nucleated Red Blood Cells % 0.9 H Neutrophils # 16.6 H Lymphocytes # 1.7 Monocytes # 1.5 H Eosinophils # 0.4 Basophils # 0.1 Nucleated Red Blood Cells # 0.2 H Sodium Level 151 H Potassium Level 3.5 Chloride Level 113 H Carbon Dioxide Level 24 Anion Gap 18 H Blood Urea Nitrogen 26 H Creatinine 3.93 H Glucose Level 88 Calcium Level 9.1 Total Bilirubin 0.2 Direct Bilirubin 0.20 Indirect Bilirubin 0.0 Aspartate Amino Transf (AST/SGOT) < 8 L Alanine Aminotransferase (ALT/SGPT) 31 Alkaline Phosphatase 174 H Total Protein 4.6 L Albumin 2.6 L Globulin 2.00 Albumin/Globulin Ratio 1.30 Medications Medications Current Medications Ondansetron HCl (Zofran Inj) 4 mg Q6H PRN IV NAUSEA AND/OR VOMITING; Start at 17:30 Acetaminophen (Tylenol Tab) 650 mg Q6H PRN PO PAIN LEVEL 1-3 OR FEVER; Start 03/08/17 at 17:30 Heparin Sodium (Porcine) 5000 unit 5,000 unit Q12 SC Last administered on 09:26; Admin Dose 5,000 UNIT; Start 03/08/17 at 21:00 Meropenem/Sodium Chloride (Merrem 500mg/50 ml(Pmx)) 50 ml @ 100 mls/hr Q24H IVPB Last administered on 03/15/17 17:08; Admin Dose 100 MLS/HR; Start 03/09 at 14:00 Sodium Hypochlorite (Dakin'S (1/4 Strength)) 1 applic BID IRR Last administered on 03/16/17 08:57; Admin Dose 1 APPLIC; Start 03/10/17 at 09:00 IV Flush (NS 10 ml) 10 ml PRN PRN IV IV PROTOCOL; Start 03/11/17 at 17:30 Collagenase (Santyl) 1 applic BID TOP Last administered on 03/16/17 08:57; Admin Dose 1 APPLIC; Start 03/11/17 at 21:00 Midodrine 10 mg 10 mg TID PO Last administered on 03/13/17 12:19; Admin Dose 10 MG; Start 03/12/17 at 02:30 Colistimethate Sodium/Sodium Chloride (Coly-Mycin/NS) 100 ml @ 200 mls/hr Q36H IVPB Last administered on 03/15/17 18:24; Admin Dose 200 MLS/HR; Start 03/12 at 15:00 Vancomycin HCl (Vancomycin Oral Syringe) 125 mg Q6 PO Last administered on 17:49; Admin Dose 125 MG; Start 03/12/17 at 18:00 Epoetin Hang 8000 units 8,000 units MoWeFr@17 SC Last administered on 18:03; Admin Dose 8,000 UNITS; Start 03/14/17 at 17:00 Ferric Sodium Gluconate Complex 125 mg/Sodium Chloride 110 ml @ 110 mls/hr Q24H IVPB Last administered on 03/16/17 13:20; Admin Dose 110 MLS/HR; Start 03/14/17 at 13:00; Stop 03/18/17 at 13:59 Caspofungin 70 mg/ Sodium Chloride 250 ml @ 250 mls/hr ONCE IVPB ; Start at 15:00; Stop 03/16/17 at 15:59 Caspofungin 50 mg/ Sodium Chloride 250 ml @ 250 mls/hr Q24H IVPB ; Start at 15:00 Metronidazole (Flagyl 500 Mg (Pmx)) 100 ml @ 100 mls/hr Q8 IVPB ; Start at 14:00 AMERICO HOWARD MD Mar 16, 2017 13:32
--- NOTE | 2017-03-16 14:24 | PN ---
Date/Time of Note Date/Time of Note DATE: 03/15/17 TIME: 16:00 Assessment/Plan Lines/Catheters IV Catheter Type (from [facility]): PICC Line Whitaker in Place (from [facility]): No Assessment/Plan Chief Complaint/Hosp Course 1. Bilateral upper thighs and right flank wounds: 2/2 pressure from immobility; -debridement -local wound care with dakin's -offloading and turning frequently -specialty mattress -abx per sensitivity- cultures pending 2.Sepsis: multifactorial: 2/2 #1 + pna + uti -supportive -as above 3. Normocytic hypochromic anemia: hx of gi bleed esophagitis, gastritis; -monitor and transfuse prn 4. Leukocytosis: worsened -as above 5. Proctocolitis -?gi consult 6. ESRD with HD -per nephro 7. Mild hypercalcemia: likely 2/2 hypovolemia -judicious fluids 8. Hypoalbuminemia: likely 2/2 malnutrition + inflammation -supportive -optimize nutrition 9. Coagulopathy: on Eliquis outpatient 10.UTI: -abx per sensitivity -frequent bladder emptying/cath care 11. Diabetes -blood sugar optimization 12. History of falls -PT as patient condition permits -fall precautions 13. Morbidly Obese -diet and physical modification 14. Loose stools: -stool studies 15. Lower extremity wounds: -podiatry consult -as above Thank you. Patient seen and examined in collaboration with Dr. Kenney Forrester. Problems: Exam/Review of Systems Vital Signs Vitals Vital Signs Date Time Temp Pulse Resp B/P Pulse Ox O2 Delivery O2 Flow Rate FiO2 03/16/17 12:00 98 03/16/17 11:49 98.5 18 99/57 98 03/16/17 08:30 Non Rebreather 15.0 03/16/17 06:08 100 Intake and Output 03/15/17 03/15/17 03/16/17 15:00 23:00 07:00 Intake Total 500 ml Output Total 2000 ml Balance -1500 ml Results Result Diagram: 03/16/17 0726 03/16/17 0726 JUSTIN FOX NP Mar 16, 2017 14:24
--- NOTE | 2017-03-16 14:29 | PN ---
Date/Time of Note Date/Time of Note DATE: 03/16/17 TIME: 14:24 Assessment/Plan Lines/Catheters IV Catheter Type (from [facility]): PICC Line Rob[place] in Place (from [facility]): No Assessment/Plan Chief Complaint/Hosp Course 1. Bilateral upper thighs and right flank wounds: 2/2 pressure from immobility; -debridement prn when medically optimized (pending family conference regarding goals of care) -local wound care with dakin's -offloading and turning frequently -specialty mattress -abx per sensitivity 2.Sepsis: multifactorial: 2/2 #1 + pna + uti (funguria) + cdiff colitis; leukocytosis and intermittent tachycardia -supportive -as above 3. Normocytic hypochromic anemia: hx of gi bleed esophagitis, gastritis; -monitor and transfuse prn -antacids 4. Leukocytosis: improving -as above 5. Proctocolitis c CDiff -abx per ID -gi f/u 6. ESRD with HD 7. Lower extremity wounds: -podiatry consult -as above 8. Hypoalbuminemia: likely 2/2 malnutrition + inflammation -supportive -optimize nutrition 9. Coagulopathy: on Eliquis outpatient 10.UTI: -abx per sensitivity -frequent bladder emptying/cath care 11. Diabetes -diet and medication optimization 12. History of falls -PT as patient condition permits -fall precautions 13. Overweight -diet optimization Thank you. Patient seen and examined in collaboration with Dr. Kenney Forrester. Problems: Subjective 24 Hr Interval Summary Family conference regarding goals of care pending. Leukocytosis persistent. Tachycardia. No fevers, chills, sob, congested cough, cp, palpitations, sexton, dizziness, n/v/d/dysuria. Exam/Review of Systems Vital Signs Vitals Vital Signs Date Time Temp Pulse Resp B/P Pulse Ox O2 Delivery O2 Flow Rate FiO2 03/16/17 12:00 98 03/16/17 11:49 98.5 18 99/57 98 03/16/17 08:30 Non Rebreather 15.0 03/16/17 06:08 100 Intake and Output 03/15/17 03/15/17 03/16/17 15:00 23:00 07:00 Intake Total 500 ml Output Total 2000 ml Balance -1500 ml Exam Free Text/Dictation Constitutional: alert, oriented Psych: anxiety, Head: atraumatic, normocephalic Eyes: nl lids, nl sclera ENMT: No nl lips & teeth (missing teeth-poor dentition) Neck: non-tender, supple Respiratory: diminished Cardiovascular: regular rate and rhythm Gastrointestinal: non-tender, other (obese), soft : roberson with creamy brown drainage Musculoskeletal: muscle weakness: BLE. No nl gait and stance Extremities: No edema, No normal pulses Neurological: nl speech, nl strength Skin: other (wounds: bilat thigh/trochanter area with areas of necrotic tissue , wound bed with slough, mod green drainage-improved, malodorous); necrotic skin on right arm Results Result Diagram: 03/16/17 0726 03/16/17 0726 JUSTIN FOX NP Mar 16, 2017 14:29
[2017-03-16] MEDS: MEROPENEM 500MG/50 ML (PMX) 50 ML IVPB SCH (14:42)
[2017-03-16] MEDS ORDERED: CASPOFUNGIN 70 MG in SOD CHLORIDE 0.9% 250 ML IVPB SCH (15:00)
[2017-03-16] MEDS: metroNIDAZOLE 500 MG/NS (PMX) 100 ML IVPB SCH ×2 (15:44→21:27)
[2017-03-16] MEDS: EPOETIN 4000 UNITS/1 ML INJ (ESRD) SC SCH (16:58)
--- NOTE | 2017-03-16 18:18 | CONS ---
Date/Time of Note Date/Time of Note DATE: 03/16/17 TIME: 18:17 Assessment/Plan Assessment/Plan Chief Complaint/Hosp Course - ESRD - Sepsis - CAD/CHF - Anemia PLAN: Bedside dialysis was done yesterday EPO + IV Iron for Anemia Monitor Labs Dr. Metzger to evaluate avf IV antibiotics Problems: Consultation Date/Type/Reason Admit Date/Time Mar 08, 2017 at 14:45 Initial Consult Date 03/09/17 Type of Consultation: NEPHROLOGY Reason for Consultation ESRD on HD 24 HR Interval Summary Constitutional: improved Exam/Review of Systems Vital Signs Vitals Vital Signs Date Time Temp Pulse Resp B/P Pulse Ox O2 Delivery O2 Flow Rate FiO2 03/16/17 17:00 15.0 100 03/16/17 16:00 106 03/16/17 15:57 97.8 18 109/57 99 03/16/17 08:30 Non Rebreather Intake and Output 03/15/17 03/15/17 03/16/17 15:00 23:00 07:00 Intake Total 500 ml Output Total 2000 ml Balance -1500 ml Exam Constitutional: alert Respiratory: crackles/rales Cardiovascular: edema, regular rate and rhythm, systolic murmur Gastrointestinal: soft Results Result Diagram: 03/16/17 0726 03/16/17 0726 Results 24 hrs Laboratory Tests Test 03/16/17 07:26 White Blood Count 21.1 #H Red Blood Count 2.77 L Hemoglobin 7.7 L Hematocrit 25.8 L Mean Corpuscular Volume 93.1 Mean Corpuscular Hemoglobin 27.8 L Mean Corpuscular Hemoglobin Concent 29.8 L Red Cell Distribution Width 25.8 H Platelet Count 251 Mean Platelet Volume 10.3 Neutrophils % 78.3 H Lymphocytes % 7.9 L Monocytes % 7.3 Eosinophils % 1.8 Basophils % 0.4 Nucleated Red Blood Cells % 0.9 H Neutrophils # 16.6 H Lymphocytes # 1.7 Monocytes # 1.5 H Eosinophils # 0.4 Basophils # 0.1 Nucleated Red Blood Cells # 0.2 H Sodium Level 151 H Potassium Level 3.5 Chloride Level 113 H Carbon Dioxide Level 24 Anion Gap 18 H Blood Urea Nitrogen 26 H Creatinine 3.93 H Glucose Level 88 Calcium Level 9.1 Total Bilirubin 0.2 Direct Bilirubin 0.20 Indirect Bilirubin 0.0 Aspartate Amino Transf (AST/SGOT) < 8 L Alanine Aminotransferase (ALT/SGPT) 31 Alkaline Phosphatase 174 H Total Protein 4.6 L Albumin 2.6 L Globulin 2.00 Albumin/Globulin Ratio 1.30 Medications Medications Current Medications Ondansetron HCl (Zofran Inj) 4 mg Q6H PRN IV NAUSEA AND/OR VOMITING; Start at 17:30 Acetaminophen (Tylenol Tab) 650 mg Q6H PRN PO PAIN LEVEL 1-3 OR FEVER; Start 03/08/17 at 17:30 Heparin Sodium (Porcine) 5000 unit 5,000 unit Q12 SC Last administered on 09:26; Admin Dose 5,000 UNIT; Start 03/08/17 at 21:00 Meropenem/Sodium Chloride (Merrem 500mg/50 ml(Pmx)) 50 ml @ 100 mls/hr Q24H IVPB Last administered on 03/16/17 14:42; Admin Dose 100 MLS/HR; Start at 14:00 Sodium Hypochlorite (Dakin'S (1/4 Strength)) 1 applic BID IRR Last administered on 03/16/17 08:57; Admin Dose 1 APPLIC; Start 03/10/17 at 09:00 IV Flush (NS 10 ml) 10 ml PRN PRN IV IV PROTOCOL; Start 03/11/17 at 17:30 Collagenase (Santyl) 1 applic BID TOP Last administered on 03/16/17 08:57; Admin Dose 1 APPLIC; Start 03/11/17 at 21:00 Midodrine 10 mg 10 mg TID PO Last administered on 03/13/17 12:19; Admin Dose 10 MG; Start 03/12/17 at 02:30 Colistimethate Sodium/Sodium Chloride (Coly-Mycin/NS) 100 ml @ 200 mls/hr Q36H IVPB Last administered on 03/15/17 18:24; Admin Dose 200 MLS/HR; Start 03/12 at 15:00 Vancomycin HCl (Vancomycin Oral Syringe) 125 mg Q6 PO Last administered on 17:49; Admin Dose 125 MG; Start 03/12/17 at 18:00 Epoetin Hang 8000 units 8,000 units MoWeFr@17 SC Last administered on 16:58; Admin Dose 8,000 UNITS; Start 03/14/17 at 17:00 Ferric Sodium Gluconate Complex 125 mg/Sodium Chloride 110 ml @ 110 mls/hr Q24H IVPB Last administered on 03/16/17 13:20; Admin Dose 110 MLS/HR; Start 03/14/17 at 13:00; Stop 03/18/17 at 13:59 Caspofungin 50 mg/ Sodium Chloride 250 ml @ 250 mls/hr Q24H IVPB ; Start at 15:00 Metronidazole (Flagyl 500 Mg (Pmx)) 100 ml @ 100 mls/hr Q8 IVPB Last administered on 03/16/17 15:44; Admin Dose 100 MLS/HR; Start 03/16/17 at 14:00 BECKY GAMBLE MD Mar 16, 2017 18:18
[2017-03-16] MEDS ORDERED: DEXTROSE 5%-0.45% NACL 1,000 ML IV SCH (22:00)
[2017-03-17] VITALS (11 sets, daily range): BP systolic 82–106; BP diastolic 37–65; PULSE 74–113; RESP 17–21
[2017-03-17] MEDS: COLISTIMETHATE 150 MG in SOD CHLORIDE 0.9% 100 ML IVPB SCH (03:22)
[2017-03-17] MEDS: metroNIDAZOLE 500 MG/NS (PMX) 100 ML IVPB SCH (05:17)
[2017-03-17] MEDS: VANCOMYCIN HCL 250 MG/5ML POSYG PO SCH ×2 (05:17)
--- NOTE | 2017-03-17 07:53 | CONS ---
Date/Time of Note Date/Time of Note DATE: 03/17/17 TIME: 07:46 Assessment/Plan Assessment/Plan Additional Assessment/Plan . This lady is a 61-year-old female who has end-stage renal disease, metabolic encephalopathy, severe debility malnutrition failure to thrive the rapid decline in her overall clinical condition. Pneumonia increasing on chest x-ray Sepsis syndrome chronic upper lower extremity ulcers possibly related to underlying renal disease Chronic atrial fibrillation She is currently in distress from a respiratory standpoint on supplemental O2 but remains dyspneic and in distress I have spoken with her daughter who is the primary decision maker on behalf of the family this morning she is in agreement to withhold all current level of care and switch her mother just comfort measures. I asked if she wanted to wait until she arrives to be with her mother she insist on discontinue all current level of care and switch her just comfort measures now. She had a very in detail conversation with Dr. Patricio yesterday who initiated conversation for more comfort measures then aggressive intervention. I totally agree she is end-stage from multiple different diagnoses including end-stage renal disease dementia delirium, generalized failure to thrive and she is currently suffering from a respiratory standpoint. We will institute comfort measures once again patient's daughter is in total agreement. Further she request to discontinue any unnecessary medications. Consultation Date/Type/Reason Admit Date/Time Mar 08, 2017 at 14:45 Type of Consultation: Palliative care Constitutional: improved Eyes: No visual change ENT: No congestion Respiratory: cough, No shortness of breath Cardiovascular: No edema, No lightheadedness Gastrointestinal: No nausea, No pain, No vomiting Genitourinary: no complaints Musculoskeletal: no complaints Skin: other (multiple wounds) Neurologic: No confusion, No dizziness Psychological: confusion Past Medical History Medical History: congestive heart failure, coronary artery disease, hypertension, renal disease Past Surgical History Past Surgical Hx: other Social History Alcohol Use: none Smoking Status: Former smoker Drug Use: none Exam/Review of Systems Vital Signs Vitals Vital Signs Date Time Temp Pulse Resp B/P Pulse Ox O2 Delivery O2 Flow Rate FiO2 03/17/17 04:10 98.9 99 17 99/62 97 03/17/17 01:25 100 03/16/17 21:30 Non Rebreather 15.0 Intake and Output 03/16/17 03/16/17 03/17/17 15:00 23:00 07:00 Intake Total 550 ml 440 ml Balance 550 ml 440 ml Exam Constitutional: distress, non-verbal, other (In distress, tachypneic ) Respiratory: labored breathing Neurological: lethargic, unresponsive Results Result Diagram: 03/16/1772503/16/17725 Medications Medications Current Medications Ondansetron HCl (Zofran Inj) 4 mg Q6H PRN IV NAUSEA AND/OR VOMITING; Start at 17:30 Acetaminophen (Tylenol Tab) 650 mg Q6H PRN PO PAIN LEVEL 1-3 OR FEVER; Start 03/08/17 at 17:30 Heparin Sodium (Porcine) 5000 unit 5,000 unit Q12 SC Last administered on 21:30; Admin Dose 5,000 UNIT; Start 03/08/17 at 21:00 Meropenem/Sodium Chloride (Merrem 500mg/50 ml(Pmx)) 50 ml @ 100 mls/hr Q24H IVPB Last administered on 03/16/17 14:42; Admin Dose 100 MLS/HR; Start at 14:00 Sodium Hypochlorite (Dakin'S (1/4 Strength)) 1 applic BID IRR Last administered on 03/16/17 21:27; Admin Dose 1 APPLIC; Start 03/10/17 at 09:00 IV Flush (NS 10 ml) 10 ml PRN PRN IV IV PROTOCOL; Start 03/11/17 at 17:30 Collagenase (Santyl) 1 applic BID TOP Last administered on 03/16/17 21:27; Admin Dose 1 APPLIC; Start 03/11/17 at 21:00 Midodrine 10 mg 10 mg TID PO Last administered on 03/13/17 12:19; Admin Dose 10 MG; Start 03/12/17 at 02:30 Colistimethate Sodium/Sodium Chloride (Coly-Mycin/NS) 100 ml @ 200 mls/hr Q36H IVPB Last administered on 03/17/17 03:22; Admin Dose 200 MLS/HR; Start at 15:00 Vancomycin HCl (Vancomycin Oral Syringe) 125 mg Q6 PO Last administered on 17:49; Admin Dose 125 MG; Start 03/12/17 at 18:00 Epoetin Hang 8000 units 8,000 units MoWeFr@17 SC Last administered on 16:58; Admin Dose 8,000 UNITS; Start 03/14/17 at 17:00 Ferric Sodium Gluconate Complex 125 mg/Sodium Chloride 110 ml @ 110 mls/hr Q24H IVPB Last administered on 03/16/17 13:20; Admin Dose 110 MLS/HR; Start 03/14/17 at 13:00; Stop 03/18/17 at 13:59 Caspofungin 50 mg/ Sodium Chloride 250 ml @ 250 mls/hr Q24H IVPB ; Start at 15:00 Metronidazole 100 ml @ 100 mls/hr Q8 IVPB Last administered on 03/17/17 05:17 ; Admin Dose 100 MLS/HR; Start 03/16/17 at 14:00 Dextrose/Sodium Chloride (D5-1/2ns) 1,000 ml @ 40 mls/hr Q24H IV Last administered on 03/16/17 22:12; Admin Dose 40 MLS/HR; Start 03/16/17 at 22:00 RONALDO VEE Mar 17, 2017 07:53
[2017-03-17] MEDS ORDERED: LORAZEPAM 2 MG INJ IV PRN (08:00)
[2017-03-17] MEDS: morphine 2 MG INJ IV PRN ×4 (08:33→22:28)
[2017-03-17] MEDS: COLLAGENASE 30 GM TUBE TOP SCH ×2 (09:09→21:00)
--- NOTE | 2017-03-17 12:59 | PN ---
Date/Time of Note Date/Time of Note DATE: 03/17/17 TIME: 12:58 Assessment/Plan VTE Prophylaxis VTE Prophylaxis Intervention: other Lines/Catheters IV Catheter Type (from Nrsg): PICC Line Central line still needed: No Urinary Cath still in place: No Assessment/Plan Chief Complaint/Hosp Course Will consult hospice and Dr Olmedo. Likely transition to comfort care in coming days but staying the course for now. DNR/DNI now however Patient actively dying. Will stop all abx, no more HD. Comfort care only with opiates/benzos/etc per Dr Olmedo No lab draws or finger sticks Problems: Subjective 24 Hr Interval Summary Free Text/Dictation Patient continues to decompensate, hypotensive and in respiratoyr distress Poor mentation Daughter in agreement to transition to comfort care measures Exam/Review of Systems Vital Signs Vitals Vital Signs Date Time Temp Pulse Resp B/P Pulse Ox O2 Delivery O2 Flow Rate FiO2 03/17/17 12:17 74 03/17/17 11:53 98.6 18 106/65 98 03/17/17 10:37 Non Rebreather Mask 15.0 03/17/17 10:34 100 Intake and Output 03/16/17 03/16/17 03/17/17 15:00 23:00 07:00 Intake Total 550 ml 440 ml Balance 550 ml 440 ml Results Result Diagram: 03/16/17 0726 03/16/17 0726 Medications Medications Current Medications Acetaminophen (Tylenol Tab) 650 mg Q6H PRN PO PAIN LEVEL 1-3 OR FEVER; Start 03/08/17 at 17:30 Collagenase (Santyl) 1 applic BID TOP Last administered on 03/17/17 09:09; Admin Dose 1 APPLIC; Start 03/11/17 at 21:00 Morphine Sulfate (morphine) 2 mg Q2H PRN IV SEDATION Last administered on 08:33; Admin Dose 2 MG; Start 03/17/17 at 08:00 Lorazepam (Ativan) 1 mg Q4 PRN IV SEDATION; Start 03/17/17 at 08:00 AMERICO HOWARD MD Mar 17, 2017 12:59
--- NOTE | 2017-03-17 13:21 | PN ---
Date/Time of Note Date/Time of Note DATE: 03/17/17 TIME: 13:14 Assessment/Plan Lines/Catheters IV Catheter Type (from [facility] PICC Line [place] in Place (from Nrs): No Assessment/Plan Chief Complaint/Hosp Course 1. Bilateral upper thighs and right flank wounds: 2/2 pressure from immobility; -comfort measures. Will sign off at this point, pleas contact us for any further needs. 2.Sepsis: multifactorial: 2/2 #1 + pna + uti (funguria) + cdiff colitis; leukocytosis and intermittent tachycardia -supportive -as above 3. Normocytic hypochromic anemia: hx of gi bleed esophagitis, gastritis; -monitor and transfuse prn -antacids 4. Leukocytosis: improving -as above 5. Proctocolitis c CDiff -abx per ID -gi f/u 6. ESRD with HD 7. Lower extremity wounds: -podiatry consult -as above 8. Hypoalbuminemia: likely 2/2 malnutrition + inflammation -supportive -optimize nutrition 9. Coagulopathy: on Eliquis outpatient 10.UTI: -abx per sensitivity -frequent bladder emptying/cath care 11. Diabetes -diet and medication optimization 12. History of falls -PT as patient condition permits -fall precautions 13. Overweight -diet optimization Thank you. Patient seen and examined in collaboration with Dr. Kenney Forrester. Problems: Subjective 24 Hr Interval Summary On face mask-appears comfortable. Comfort measures. Nonverbal indicators of pain not present. Exam/Review of Systems Vital Signs Vitals Vital Signs Date Time Temp Pulse Resp B/P Pulse Ox O2 Delivery O2 Flow Rate FiO2 03/17/17 12:17 74 03/17/17 11:53 98.6 18 106/65 98 03/17/17 10:37 Non Rebreather Mask 15.0 03/17/17 10:34 100 Intake and Output 03/16/17 03/16/17 03/17/17 15:00 23:00 07:00 Intake Total 550 ml 440 ml Balance 550 ml 440 ml Exam Free Text/Dictation Constitutional: alert, oriented Psych: anxiety, Head: atraumatic, normocephalic Eyes: nl lids, nl sclera ENMT: No nl lips & teeth (missing teeth-poor dentition) Neck: non-tender, supple Respiratory: diminished Cardiovascular: regular rate and rhythm Gastrointestinal: non-tender, other (obese), soft : roberson with creamy brown drainage Musculoskeletal: muscle weakness: BLE. No nl gait and stance Extremities: No edema, No normal pulses Neurological: nl speech, nl strength Skin: other (wounds: bilat thigh/trochanter area with areas of necrotic tissue , wound bed with slough, mod green drainage-improved, malodorous); necrotic skin on right arm Results Result Diagram: 03/16/17 0726 03/16/17 0726 JUSTIN FOX NP Mar 17, 2017 13:21
--- NOTE | 2017-03-17 14:12 | CONS ---
Date/Time of Note Date/Time of Note DATE: 03/17/17 TIME: 14:10 Consult Date/Type/Reason Admit Date/Time Mar 08, 2017 at 14:45 Initial Consult Date 03/09/17 Type of Consultation: ID Objective Vital Signs Date Time Temp Pulse Resp B/P Pulse Ox O2 Delivery O2 Flow Rate FiO2 03/17/17 12:17 74 03/17/17 11:53 98.6 18 106/65 98 03/17/17 10:37 Non Rebreather Mask 15.0 03/17/17 10:34 100 Intake and Output 03/16/17 03/16/17 03/17/17 14:59 22:59 06:59 Intake Total 550 ml 440 ml Balance 550 ml 440 ml Results/Medications Result Diagram: 03/16/17 0726 03/16/17 0726 Medications Current Medications Collagenase (Santyl) 1 applic BID TOP Last administered on 03/17/17 09:09; Admin Dose 1 APPLIC; Start 03/11/17 at 21:00 Morphine Sulfate (morphine) 2 mg Q2H PRN IV SEDATION Last administered on 08:33; Admin Dose 2 MG; Start 03/17/17 at 08:00 Lorazepam (Ativan) 1 mg Q4 PRN IV SEDATION; Start 03/17/17 at 08:00 Assessment/Plan Chief Complaint/Hosp Course Obtunded, looks comfortable Indwelling's: left upper extremity AV fistula, Whitaker Microbiology: Urine culture growing yeast, blood cultures negative, stool for C. difficile positive. Right hip wound culture growing Pseudomonas, VRE, Acinetobacter Trinity. Left upper extremity incisional drainage culture growing Acinetobacter Trinity and Leuconostoc. Left hip wound culture growing Acinetobacter Trinity Pseudomonas and coag negative staph species Physical examination: This is a wasted chronically ill-appearing elderly woman who is in no distress. Head atraumatic normocephalic, sclera nonicteric, bugle mucosa dry, patient has multiple missing teeth. Neck is supple, trachea midline. Chest rise symmetrical breath sounds diminished bases. S1-S2. Abdomen soft bowel sounds present. Extremities: Right upper extremity with forearm necrotic wou and erythema. Left upper extremity incision below AV fistula with guanaco present, erythema present, there is an area of dehiscence with drainage. Skin: Positive for anasarca, multiple necrotic unstageable wounds Assessment: 1. Severe sepsis, multifactorial 3. PNA, aspiration 2. Urinary tract infection 3. C. difficile colitis 4. Multiple necrotic wounds 5. Infected left upper extremity incision 6. End-stage renal disease, hemodialysis dependent 5. Atrial fibrillation Plan: Remains unchanged, per palliative care will be transitioned to comfort care, will sign off [facility] staff Problems: TODD RAMIRES NP Mar 17, 2017 14:12
[2017-03-17] MEDS ORDERED: CASPOFUNGIN 50 MG in SOD CHLORIDE 0.9% 250 ML IVPB SCH (15:00)
[2017-03-18] VITALS (7 sets, daily range): BP systolic 87–99; BP diastolic 39–47; PULSE 76–82; RESP 12–19
[2017-03-18] MEDS: morphine 2 MG INJ IV PRN ×3 (04:45→12:25)
[2017-03-18] MEDS: COLLAGENASE 30 GM TUBE TOP SCH ×2 (08:30→20:59)
--- NOTE | 2017-03-18 12:08 | PN ---
Date/Time of Note Date/Time of Note DATE: 03/18/17 TIME: 12:06 Assessment/Plan VTE Prophylaxis VTE Prophylaxis Intervention: LMWH, other Lines/Catheters IV Catheter Type (from Nrsg): PICC Line Central line still needed: No Urinary Cath still in place: No Assessment/Plan Chief Complaint/Hosp Course Patient actively dying. Will stop all abx, no more HD, no more vital signs or finger sticks, etc. Comfort care only with opiates/benzos/etc per Dr Olmedo Problems: Subjective 24 Hr Interval Summary Free Text/Dictation Patient actively dying, on comfort care/inpatient hospice measures Daughter and son in law at bedside seen and counseled Does not seem in pain Exam/Review of Systems Vital Signs Vitals Vital Signs Date Time Temp Pulse Resp B/P Pulse Ox O2 Delivery O2 Flow Rate FiO2 03/18/17 09:00 Non Rebreather 15.0 03/18/17 07:36 98 18 87/39 99 03/18/17 06:54 97.8 03/18/17 02:51 100 Exam Lethargic Open mouth breathing Occasional cough Results Result Diagram: 03/16/17 0726 03/16/17 0726 Medications Medications Current Medications Collagenase (Santyl) 1 applic BID TOP Last administered on 03/17/17 09:09; Admin Dose 1 APPLIC; Start 03/11/17 at 21:00 Morphine Sulfate (morphine) 2 mg Q2H PRN IV SEDATION Last administered on 09:33; Admin Dose 2 MG; Start 03/17/17 at 08:00 Lorazepam (Ativan) 1 mg Q4 PRN IV SEDATION; Start 03/17/17 at 08:00 AMERICO HOWARD MD Mar 18, 2017 12:08
[2017-03-18] MEDS ORDERED: ONDANSETRON 4 MG INJ IV PRN (13:30)
[2017-03-18] MEDS ORDERED: ARTIFICIAL TEARS 15 ML OPH BOTH EYES PRN (13:30)
[2017-03-18] MEDS ORDERED: ATROPINE 1% 5 ML OPH SL PRN (13:30)
[2017-03-18] MEDS ORDERED: IPRATROPIUM (NEB) 0.5 MG/2.5 ML AMP HHN PRN (13:30)
[2017-03-18] MEDS ORDERED: DIMETHICONE STICK TOP PRN (13:30)
[2017-03-18] MEDS ORDERED: ACETAMINOPHEN 650 MG SUPP PR PRN (13:30)
[2017-03-18] MEDS ORDERED: morphine (DRIP) 100 MG/100 ML 100 ML IV SCH (13:30)
[2017-03-19] MEDS: COLLAGENASE 30 GM TUBE TOP SCH (09:00)
--- NOTE | 2017-03-19 10:36 | DES ---
Date/Time of Note Date/Time of Note DATE: 03/19/17 TIME: 10:34 Discharge/ Summary Admission/Discharge Info Admit Date/Time Mar 08, 2017 at 14:45 Discharge Date/Time 03/19/17 10:34 AM Final Diagnosis Renal failure Preliminary Cause of sepsis Hx of Present Illness Called to bedside as patient without pulse or mental status Indeed, patient has no pulse or respirations for > 60 seconds of monitoring. No gag reflex, no corneal or pupillary reflex, no vestibular reflex, no response to any noxious stimuli. Patient pronounced at 10:34 AM Next of kin has been notified Hospital Course Patient actively dying. Will stop all abx, no more HD, no more vital signs or finger sticks, etc. Comfort care only with opiates/benzos/etc per AMERICO Moody MD Mar 19, 2017 10:36
--- NOTE | 2017-03-19 16:44 | PN ---
DATE: 03/18/2017 PRIMARY HOSPITAL DIAGNOSIS: End-stage renal disease. LEVEL OF CARE: GIP. COMORBID: End-stage renal disease, multiple decubiti, dementia. The patient since yesterday has continued to decline and secondary to decline, became progressively more unresponsive. The patient's pain and shortness of breath were controlled with morphine 1 mg an hour. The patient did not have any vomiting, no reported seizures. No reported temperature spike. No reported bleeding from any site. PHYSICAL EXAMINATION: GENERAL: Patient to be nonverbal. VITAL SIGNS: Temperature 97.8, pulse 78, respirations 18, blood pressure 87/39, respirations 12, pa tient was on 5 liters nasal cannula. HEENT: No eye discharge or redness. NECK: No mass. CHEST: Coarse breath sounds anteriorly. CARDIOVASCULAR: S1, S2 normal. No murmur. ABDOMEN: Soft, nondistended. EXTREMITIES: Trace edema. NEUROLOGIC: She is nonverbal. IMPRESSION: 1. End-stage renal disease. 2. Acute respiratory failure. 3. Multiple decubiti. 4. Recent Clostridium difficile colitis. PLAN: The patient will be continued on morphine drip at 1 mg/hour. The patient is terminally ill. Continue atropine drops for secretions and DuoNeb for chest congestion and Ativan for anxiety. Pat ient remains appropriate for [facility] level of hospice care. Dictated By: LIBBY ASCENCIO/BLANCA Conf#: [id number] DID#: [id number]
--- NOTE | 2017-03-19 16:44 | PN ---
DATE: 03/18/2017 PRIMARY HOSPITAL DIAGNOSIS: End-stage renal disease. LEVEL OF CARE: GIP. COMORBID: End-stage renal disease, multiple decubiti, dementia. The patient since yesterday has continued to decline and secondary to decline, became progressively more unresponsive. The patient's pain and shortness of breath were controlled with morphine 1 mg an hour. The patient did not have any vomiting, no reported seizures. No reported temperature spike. No reported bleeding from any site. PHYSICAL EXAMINATION: GENERAL: Patient to be nonverbal. VITAL SIGNS: Temperature 97.8, pulse 78, respirations 18, blood pressure 87/39, respirations 12, pa tient was on 5 liters nasal cannula. HEENT: No eye discharge or redness. NECK: No mass. CHEST: Coarse breath sounds anteriorly. CARDIOVASCULAR: S1, S2 normal. No murmur. ABDOMEN: Soft, nondistended. EXTREMITIES: Trace edema. NEUROLOGIC: She is nonverbal. IMPRESSION: 1. End-stage renal disease. 2. Acute respiratory failure. 3. Multiple decubiti. 4. Recent Clostridium difficile colitis. PLAN: The patient will be continued on morphine drip at 1 mg/hour. The patient is terminally ill. Continue atropine drops for secretions and DuoNeb for chest congestion and Ativan for anxiety. Pat ient remains appropriate for [facility] level of hospice care. Dictated By: LIBBY ASCENCIO/BLANCA Conf#: [id number] DID#: [id number]
--- NOTE | 2017-03-19 16:44 | PN ---
DATE: 03/18/2017 PRIMARY HOSPITAL DIAGNOSIS: End-stage renal disease. LEVEL OF CARE: GIP. COMORBID: End-stage renal disease, multiple decubiti, dementia. The patient since yesterday has continued to decline and secondary to decline, became progressively more unresponsive. The patient's pain and shortness of breath were controlled with morphine 1 mg an hour. The patient did not have any vomiting, no reported seizures. No reported temperature spike. No reported bleeding from any site. PHYSICAL EXAMINATION: GENERAL: Patient to be nonverbal. VITAL SIGNS: Temperature 97.8, pulse 78, respirations 18, blood pressure 87/39, respirations 12, pa tient was on 5 liters nasal cannula. HEENT: No eye discharge or redness. NECK: No mass. CHEST: Coarse breath sounds anteriorly. CARDIOVASCULAR: S1, S2 normal. No murmur. ABDOMEN: Soft, nondistended. EXTREMITIES: Trace edema. NEUROLOGIC: She is nonverbal. IMPRESSION: 1. End-stage renal disease. 2. Acute respiratory failure. 3. Multiple decubiti. 4. Recent Clostridium difficile colitis. PLAN: The patient will be continued on morphine drip at 1 mg/hour. The patient is terminally ill. Continue atropine drops for secretions and DuoNeb for chest congestion and Ativan for anxiety. Pat ient remains appropriate for [facility] level of hospice care. Dictated By: LIBBY ASCENCIO/BLANCA Conf#: [id number] DID#: [id number]
--- NOTE | 2017-03-21 07:31 | HP ---
DATE OF ADMISSION: 03/08/2017 PRIOR MEDICAL HISTORY: End-stage renal disease, comorbid dementia, multiple decubitus, diabetes, pr octocolitis, anemia, sepsis due to pneumonia, urinary tract infection, and Clostridium difficile col itis. CHIEF COMPLAINT AND HISTORY OF PRESENT ILLNESS: History was obtained from medical record as the pat ient is nonverbal. The patient is a 61-year-old female with a history of end-stage renal disease, c hronic lower extremity wound with wound VAC, atrial fibrillation, hypertension. The patient present ed patient to the ER with altered mental status for an unknown period of time. The patient could no t provide any history. The patient was seen in the ER, was noted to have a white count of 27.2, hem oglobin 11.1, BUN was 50, creatinine 6.8. Patient was diagnosed with sepsis with acute metabolic en cephalopathy secondary to UTI and/or proctocolitis. The patient was seen by Dr. Rolon from nephro logy standpoint and Dr. Forrester from surgery standpoint. The patient was also seen by Dr. Gissell treviño om an infectious disease standpoint and Dr. Richi Jorge from podiatry standpoint and to Dr. Mely villanueva from palliative care standpoint. The patient continued to decline and progressively became more altered. Dr. Mosley was called for palliative care consult and he spoke with the patient's daugh farhat, who is the primary decision-maker, and patient was put on comfort care. Hemodialysis was stopp ed. Today, hospice has been called for further care. The patient was getting morphine 2 mg every 2 hours as needed prior to admission to hospice. REVIEW OF SYSTEMS: Rather limited as the patient is nonverbal. There was no reported seizure, no r eported fever, no reported diarrhea today. No reported wheezing. Patient does have occasional ches t congestion. PAST MEDICAL HISTORY: As stated above. In addition, the patient has a history of coronary artery d isease, hypertension, and congestive heart failure. SOCIAL HISTORY: The patient is an ex-smoker. PAST SURGICAL HISTORY: The patient is status post left thigh debridement, AV fistula creation, Perm -A-Cath placement. FAMILY HISTORY: Positive for coronary artery disease and hypertension. PHYSICAL EXAMINATION: GENERAL: The patient is nonverbal. VITAL SIGNS: Temperature 97.8, pulse 76, respirations 12, blood pressure 87/39, O2 saturation 99% o n nonrebreather mask, which has been subsequently switched to nasal cannula. HEENT: No eye discharge or redness. Extraocular movements could not be tested. Nose and ears norm al externally. NECK: No mass. CHEST: Anteriorly had coarse breath sounds. CARDIOVASCULAR: S1, S2 normal. No murmur. ABDOMEN: Soft, nondistended. EXTREMITIES: Multiple areas of necrotic wound present, slight edema. NEUROLOGIC: The patient is nonverbal. LABORATORY: The last labs were done on 03/16/2017 and revealed WBC 11.1, hemoglobin 7.7, platelets 251. Sodium 151, potassium 3.5, BUN 26, creatinine 2.9. IMPRESSION: 1. End-stage renal disease. 2. Anemia. 3. Recent sepsis due to aspiration pneumonia, urinary tract infection, and Clostridium difficile co litis. 4. Dementia. 5. Multiple necrotic wounds. PLAN: The patient will be started on IV morphine drip at 1 mg an hour, which will be titrated every hour to optimize comfort care. The patient will also be started on atropine drops q.2 hours p.r.n. Will also add DuoNeb q.6 p.r.n. for chest congestion, IV Ativan 1 mg q.4 hours p.r.n. for anxiety. Continue topical Santyl for wounds. Patient remains terminally ill and appropriate for [facility] level of care. Plan of care discussed with staff nurse. Will discuss with the daughter when available. Dictated By: LIBBY ASCENCIO/BLANCA Conf#: [id number] DID#: [id number]
== END 2017-03-19 14:55 | disposition expired | DRG 871 ==
LOC: E/R 12:15 → TEL 14:45 → MS2 03-18 06:41
PROVIDERS: ADMIT Hospitalist; ATTEND Hospitalist
PROC: 5A1D70Z Performance of Urinary Filtration, Intermittent, Less than 6 Hours Per Day (ICD-10-PCS; 2017-03-09)
PROC: 02HV33Z Insertion of Infusion Device into Superior Vena Cava, Percutaneous Approach (ICD-10-PCS; principal; 2017-03-11)
DX: A41.9 Sepsis, unspecified organism (principal); J96.00 Acute respiratory failure, unspecified whether with hypoxia or hypercapnia; J69.0 Pneumonitis due to inhalation of food and vomit; G93.41 Metabolic encephalopathy; L89.214 Pressure ulcer of right hip, stage 4; A04.72 Enterocolitis due to Clostridium difficile, not specified as recurrent; L89.323 Pressure ulcer of left buttock, stage 3; L89.153 Pressure ulcer of sacral region, stage 3; N18.6 End stage renal disease; I12.0 Hypertensive chronic kidney disease with stage 5 chronic kidney disease or end stage renal disease; L97.929 Non-pressure chronic ulcer of unspecified part of left lower leg with unspecified severity; N39.0 Urinary tract infection, site not specified; T81.31XA Disruption of external operation (surgical) wound, not elsewhere classified, initial encounter; I48.2 Chronic atrial fibrillation; E11.21 Type 2 diabetes mellitus with diabetic nephropathy; E11.22 Type 2 diabetes mellitus with diabetic chronic kidney disease; E88.09 Other disorders of plasma-protein metabolism, not elsewhere classified; E83.52 Hypercalcemia; I25.10 Atherosclerotic heart disease of native coronary artery without angina pectoris; E66.3 Overweight; I87.8 Other specified disorders of veins; L89.629 Pressure ulcer of left heel, unspecified stage; L89.610 Pressure ulcer of right heel, unstageable; E87.70 Fluid overload, unspecified; J44.9 Chronic obstructive pulmonary disease, unspecified; L89.899 Pressure ulcer of other site, unspecified stage; F03.90 Unspecified dementia, unspecified severity, without behavioral disturbance, psychotic disturbance, mood disturbance, and anxiety; D64.9 Anemia, unspecified; E78.5 Hyperlipidemia, unspecified; Y83.2 Surgical operation with anastomosis, bypass or graft as the cause of abnormal reaction of the patient, or of later complication, without mention of misadventure at the time of the procedure; Z79.01 Long term (current) use of anticoagulants; B96.5 Pseudomonas (aeruginosa) (mallei) (pseudomallei) as the cause of diseases classified elsewhere; Z91.81 History of falling; Z68.28 Body mass index [BMI] 28.0-28.9, adult; Y92.238 Other place in hospital as the place of occurrence of the external cause; Z51.5 Encounter for palliative care; Z66 Do not resuscitate
CPT/HCPCS: 36415; 36569; 70450; 71010; 73620; 74176; 76937; 80048; 80053; 80202; 81001; 82962; 83605; 83735; 84100; 84484; 85025; 85610; 85730; 87040; 87045; 87070; 87075; 87086; 90935; 92526; 92610; 93005; 96374; 96375; C1769; J1630; J1644; J1940; J2185; J2270; J2916; J3370; J7040; J7042; J7050; P9047; Q4081